=== PATIENT | female | born 1975 | race Asian ===

== ENCOUNTER 2022-02-09 10:35 | Outpatient (REF) | payer MEDICAID, SELFPAY ==
[2022-02-09 14:38] LABS: Bilirubin Negative (Negative); Blood Large (Negative); Clarity Cloudy (Clear); Glucose Negative (Negative); Ketones Negative (Negative); Leukocyte Esterase Small (Negative); Nitrite Negative (Negative); Specific Gravity >= 1.030 (1.005-1.025); Urobilinogen 0.2 EU/dL (Up TO 0.2); pH 5.5 (5-8)
[2022-02-09 14:47] LABS: Bacteria Moderate HPF (Negative); Epithelial Cells Rare HPF (Negative); RBC 20-50 HPF (0-2); WBC 20-50 HPF (0-5)
[2022-02-09 14:48] LABS: C & S Indicated? Yes; Casts Negative LPF (Negative); Crystals Many Amorphous HPF (Negative); Mucus Negative (Negative)
== END 2022-02-09 10:36 | disposition home or self-care (01) ==
LOC: LBN 10:35
DX: R39.89 Other symptoms and signs involving the genitourinary system (principal)
CPT/HCPCS: 81003; 81015; 87086

== ENCOUNTER → 2023-05-19 20:10 | Outpatient (CLI) | payer MEDICAID, SELFPAY ==
--- NOTE | 2023-05-19 20:00 | DI.RAD_ITS ---
Exam(s) XR CHEST 2V PA LATERAL EXAM: XR CHEST 2V PA LATERAL CLINICAL HISTORY: COUGH TECHNIQUE: 2D digital imaging was performed. COMPARISON: No exams were available for comparison FINDINGS: HEART: Normal size. Aorta: Not dilated. PULMONARY VASCULATURE: Normal. LUNGS: Clear. PLEURAL SPACE: No pleural effusion or pneumothorax. BONE:Unremarkable for age. Soft tissues: Anterior surgical clips. IMPRESSION: No acute abnormality. DATA REPOSITORY: RADIATION DOSE DELIVERED:
--- OUTSIDE RECORDS SUMMARY | 2023-05-19 20:15 | XMS_ITS | Patient Health Record ---
Author Name Unknown Organization [facility] Address [address], [place] [id number] Care Team Providers Care Callisthenics Instructor Name Role Phone Bianca Lopes Unavailable [phone] SaurabhSonya Unavailable [phone] ALLERGIES Allergen (clinical drug ingredient) Drug/Non Drug Allergy documented on EMR Reaction Allergy Type Onset Date Status Adhesive Unknown Allergy Active REASON FOR REFERRAL No Information MEDICATIONS Medication SIG (Take, Route, Frequency, Duration) Notes Start Date End Date Status Lexapro 20mg Active traZODone HCl 100 MG 1 tablet at bedtime Orally Once a day for 30 day(s) Active Escitalopram Oxalate 20 MG TAKE ONE AND ONE-HALF TABLETS BY MOUTH EVERY DAY for 90 Please have patient call to schedule appt before next refill. Needs annual exam. Active SOCIAL HISTORY Sex Assigned At : Social History Observation Description Sex Assigned At Unknown PROBLEMS Problem Type ICD Code Onset Dates Problem Status W/U Status Risk SNOMED Code Notes Problem Other specified urinary incontinence (N39.498) Active confirmed Urinary incontinence (362496798) Problem Encounter for gynecological examination (Z01.419) Active confirmed 245375162 Problem Vasomotor symptoms due to menopause (N95.1) Active confirmed Menopause (311878404) Problem Adenomyosis (N80.9) Active confirmed Endometriosis (316431509) VITAL SIGNS Blood pressure diastolic 70 mm Hg 08/02/2022 Height 5 ft 5 in in 08/02/2022 Blood pressure systolic 102 mm Hg 08/02/2022 Weight 174 lbs 08/02/2022 BMI 28.95 kg/m2 08/02/2022 Encounters Encounter Location Date Provider Diagnosis [facility] [address], [place] [id number] 06/07/2022 Sonya Wiley [facility] [address], [place] [phone] 06/11/2022 Sonya Wiley [facility] [address], [place] [id number] 06/18/2022 Sonya Wiley Vasomotor symptoms due to menopause N95.[address] [id number] 07/27/2022 Sonya Wiley [facility] [address], [place] [id number] 08/02/2022 Sonya Wiley Vasomotor symptoms due to menopause N95.[address] [id number] 10/25/2022 Sonya Wiley Vasomotor symptoms due to menopause N95.[address] [id number] 01/12/2023 Sonya Wiley Vasomotor symptoms due to menopause N95.1 ASSESSMENTS Encounter Date Diagnosis Assessment Notes Treatment Notes Treatment Clinical Notes 08/02/2022 Vasomotor symptoms due to menopause (ICD-10 - N95.1) 01/12/2023 Vasomotor symptoms due to menopause (ICD-10 - N95.1) 06/18/2022 Vasomotor symptoms due to menopause (ICD-10 - N95.1) Management options reviewed (not a candidate for estrogen due to breast CA). Pt elects to increase Lexapro to 30mg daily. RTC 6-8 wks for f/u visit to assess symptoms 10/25/2022 Vasomotor symptoms due to menopause (ICD-10 - N95.1) PLAN OF TREATMENT Pending Test Test Name Order Date U/A Test 06/30/2020 Insurance Providers Payer Name Payer Address Payer Phone Subscriber Number Group Number Insured Name Patient Relationship to Insured Coverage Start Date Coverage End Date [employer] - MEDICAID [address] [place] [address] [id number] Austin Squires Self - patient is the insured MEDICAL (GENERAL) HISTORY Medical History History ICD Code breast cancer gallbladder removal 2017 right shoulder dislocation anxiety carpal tunnel kidney stones x3 Concussion S06.0X9A Surgical History Surgery Date(Month/Year) gallbladder removal 2007 bilateral mastectomy 2020 Breast reconstruction 01/11/2022 Nipple reconstruction 07/23/2022 Bladder recontruction surgery for incont inence 09/24/2021
--- NOTE | 2023-05-19 20:40 | DI.VRAD_ITS ---
PROCEDURE INFORMATION: Exam: XR Chest Exam date and time: 05/19/2023 8:15 PM Age: 47 years old Clinical indication: Cough TECHNIQUE: Imaging protocol: Radiologic exam of the chest. Views: 2 views. COMPARISON: No relevant prior studies available. FINDINGS: Lungs: Lungs are adequately inflated and symmetric. No focal consolidation or evidence of pulmonary edema. Pleural spaces: No pleural effusion. No pneumothorax. Heart/Mediastinum: Cardiomediastinal contours within normal limits. Bones/joints: No acute osseous finding. IMPRESSION: No acute findings. Dictated and Authenticated by: Pérez Balbuena MD. Ordering:TOM Camargo MD
== END ==
PROVIDERS: Visit Provider Physician Assistant Medical
DX: R05.9 Cough, unspecified (principal)
CPT/HCPCS: 71046

== ENCOUNTER 2023-05-19 20:29 | Outpatient (REF) | payer MEDICAID, SELFPAY ==
[2023-05-19 20:56] LABS: Source Nasal/Nares
[2023-05-19 21:47] LABS: COVID-19 PCR Negative (Negative)
== END 2023-05-19 20:30 | disposition home or self-care (01) ==
LOC: LBN 20:29
PROVIDERS: Visit Provider Physician Assistant Medical
DX: R05.8 Other specified cough (principal); Z20.822 Contact with and (suspected) exposure to COVID-19
CPT/HCPCS: 87635

== ENCOUNTER 2023-12-10 17:26 | Emergency (ER) | payer BC, SELFPAY ==
[2023-12-10 17:35] VITALS: BP 128/79; PULSE 86; RESP 16; TEMP 35.6; O2SAT 98
--- OUTSIDE RECORDS SUMMARY | 2023-12-10 17:37 | XMS_ITS | Encounter Summary ---
Author Organization [facility] Address [address] [place] [address] Care Team Providers Care Food Processing Chemist Name Role Phone Pam Germain MD Unavailable [phone] Janay Duran CLOTH PRESSER Primary Care Provider Unava ilable Reason for Visit * Reason Onset Date Comments Appointment Related 12/03/2022 Encounter Details Date Type Department Care Team (Late st Contact Info) Description 12/03/2022 Telephone [facility] Surgical Oncology - [address] [phone] Maeve Morales, DO [address] [facility], [address] [place] [phone] Appointment Related Social History Tobacco Use Types Packs/Day Years Used Date Smoking Tobacco: Former Cigarettes 1 30 0 09/17/1990 - 09/17/2020 Smokeless Tobacco: Never Comments:Smoked on and off w hen smoked- started as a teen Alcohol Use Standard Drinks/Week Comments Not Currently 0 (1 standard drink = 0.6 oz pur e alcohol) PHQ-2 Answer Date Recorded PHQ-2 SUBTOTAL 0 06/19/2020 Interpersonal Safety Answer Date Record ed Physically Hurt Never 02/19/2020 Verbally Threaten Not on file 02/19/2020 Sex and Gender Information Value Date Recorded Sex Assigned at Not on file Gender Identity Female 02/19/2020 9:10 EDT Sexual Orientation Not on file documented as of this encounter Functional Status Functional Status Response Date of Assess ment Are you deaf or do you have serious difficulty h earing? No 12/24/2020 Are you blind or do you have serious difficulty seeing, even when wearing glasses? No 12/24/2020 Do you have serious difficul ty walking or climbing stairs? (5 years old or older) No 12/24/2020 Do you have difficulty dress ing or bathing? (5 years old or older) No 12/24/2020 Because of a physical, menta l, or emotional condition, do you have difficulty doing errands alone such as visiting a doctor's office or shopping? (15 years old or older) No 12/24/2020 Cognitive Status Response Date of Assessm ent Because of a physical, menta l, or emotional condition, do you have serious difficulty concentrating, remembering, or making decisions? (5 years old or older) No 12/24/2020 documented as of this encounter Miscellaneous Notes * Telephone Encounter - Yulissa Pedroza - 12/03/2022 1101 EDT Gave pt a call to offer her an earlier opening with Dr. Morales on: 12/03/2022 While on the phone with the patient she accepted an opening on 12/03/2022 @ 3:40pm - pt is aware Yulissa Pedroza 12/03/2022 11:02 documented in this encounter Plan of Treatment Upcoming Encounters Date Type Department Care Team (Late st Contact Info) Description 01/31/2024 13:40 EDT Office Visit [facility] Surgical Oncology - [address] [phone] Maeve Morales, [address] [facility], [address] [place] [phone] documented as of this encounter Visit Diagnoses Not on filedocumented in this encounter Care Teams Food Processing Chemist Relationship Specialty Start Date End Date Janay Duran, CLOTH PRESSER [address] [facility], [facility] [address] [place] [phone] PCP - General Family Medicine - Primary Care 07/22/22 Pam Germain MD [address] [facility], [facility] [address] [place] [phone] Medical Oncology 03/22/22 documented as of this encounter
--- OUTSIDE RECORDS SUMMARY | 2023-12-10 17:37 | XMS_ITS | Encounter Summary ---
Author Organization [facility] Address [address] [place] [address] Care Team Providers Care Air Conditioning Specialist Name Role Phone Pam Germain MD Unavailable [phone] Janay Duran APRN Primary Care Provider Unava ilable Reason for Visit * Reason Onset Date Comments Appointment Related 10/11/2023 Encounter Details Date Type Department Care Team (Late st Contact Info) Description 10/11/2023 Telephone [facility] Hematology & Oncology - [address] [phone] Pam Germain MD [address] [facility], [address] [place] [address] Appointment Related Social History Tobacco Use Types [...] a physical, menta l, or emotional condition, does this person have serious difficulty concentrating, remembering, or making decisions? Yes 10/07/2023 documented as of this encounter Miscellaneous Notes * Telephone Encounter - Mckinley Ku - 10/11/2023 1333 EDT Spoke with patient regarding rescheduling request. Patient had asked for 11/01 because she has off from work. Unfortunately it falls on a this year--informed her I can only schedule for Tuesday or Tuesday mornings. She asked about Fridays and I reiterated I can only schedule for Tuesday or Tuesday mornings. She asked if Dr. 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 Patientdecided to leave the appt as it was already scheduled. documented in this encounter Plan of Treatment Upcoming Encounters Date Type Department Care Team (Late st Contact Info) Description 01/31/2024 13:40 EDT Office Visit [facility] Surgical Oncology - [address] [phone] Maeve Morales, DO [address] [facility], [facility], [address] [place] [address] documented as of this encounter Visit Diagnoses Not on filedocumented in this encounter Care Teams Air Conditioning Specialist Relationship Specialty Start Date End Date Janay Duran APRN [address] [place] [phone] PCP - General Family Medicine - Primary Care 07/22/22 Pam Germain MD [address] [place] [phone] Medical Oncology 03/22/22 documented as of this encounter
--- OUTSIDE RECORDS SUMMARY | 2023-12-10 17:37 | XMS_ITS | Encounter Summary ---
Author Organization [facility] Address [address] [place] [address] Care Team Providers Care Calender Machine Operator Helper Name Role Phone Pam Germain MD Unavailable [phone] Janay Duran APRN Primary Care Provider Unava ilable Reason for Visit * Reason Comments Follow-up Encounter Details Date Type Department Care Team (Late st Contact Info) Description 03/15/2023 10:00 EDT Office Visit [facility] Hematology & Oncology - [address] [phone] Pam Germain MD [address] [facility], [address] [place] [address] Malignant 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, estrogen receptor negative (HCC-CMS) (Primary Dx); Triple negative malignant neoplasm of breast (HCC-CMS) Social History Tobacco Use Types Packs/Day Years [...] on file documented as of this encounter Last Filed Vital Signs Vital Sign Reading Time Taken Comments Blood Pressure 120/76 03/15/2023 0946 EDT Pulse 85 03/15/202346 EDT Temperature 36.3 ??C (97.3 ??F) 03/15/2023 0946 EDT Respiratory Rate 16 03/15/202346 EDT Oxygen Saturation 97% 03/15/2023945 EDT Inhaled Oxygen Concentration - - Weight 78.4 kg (172 lb 12.8 oz) 03/15/2023945 EDT Height - - Body Mass Index 27.97 10/14/2022 1620 EDT documented in this encounter Functional Status Functional Status Response [...] No 12/24/2020 documented as of this encounter Progress Notes * Pam Germain MD - 03/15/2023 1000 EDT Austin Squires is a 47 y.o.yo female presenting in clinic today for follow up of triple negative breast cancer. Oncology History ?? 1. Early stage [facility] Breast Cancer ??? Personnel Research Psychologist noticed a mass in her left breast in early June 2020 ??? Imaging and a biopsy on 07/09/20??of a 2.1 cm mass revealed a nuclear grade 3 ER negative [place] negative for HER2 negative ductal carcinoma.? Staging evaluation did reveal a prominent L IM lymph node ? ? Taxol/carboplatinum f/b AC, started July 22, 2020??& completed on 11/27/20 ??? Bilateral mastectomies??performed on 12/24/20 revealed 2.5 cm of a poorly differentiated ductal carcinoma. ??All margins were negative. ??0/3 nodes were positive.?Contralateral breast benign. PD-L1 testing appears to be negative. ??? Adjuvant capecitabine started late Jan,, completed 8 cycles. ?? Genetic testing: negative (9 gene panel performed through [facility] [employer] [facility] was performed) SUBJECTIVE: Austin returns for routine follow-up. She recently completed nipple tattoos and has healed well for this. She got over the summer. She is doing well. No acute concerns at today's visit. No new symptoms. Prior hip plan has completely resolved. Last menses in 2020 but had IUD in until 11/2021 Past medical, surgical, family and social history reviewed and updated. Lives in [place]. Works at [employer]. She will be getting this summer, in [place]. Objective: There were no vitals taken for this visit. General appearance: alert, no distress Head: Normocephalic, without obvious abnormality, atraumatic Neck: supple, symmetrical, trachea midline and no adenopathy Lymph nodes: Cervical, supraclavicular nodes normal. Lungs: clear to auscultation bilaterally Breast Exam: Patient's left and right breast and bilateral axilla were examined in both the seated and supine position. s/p bilateral mastectomies with reconstruction. No skin changes. No palpable masses. Lymph Node Exam: No palpable cervical lymphadenopathy. No supraclavicular lymphadenopathy. No palpable axillary lymphadenopathy. Heart: regular rate and rhythm, No significant murmur Neurologic: Grossly normal Mental Status: mood and affect appropriate, speech and thought process intact Extremities: extremities warm, atraumatic, no cyanosis or edema Skin: Skin color, temperature, turgor normal. No rashes or lesions LABORATORY: CBC/CMP from today were reviewed. Longstanding transaminitis with known fatty liver. Alk phos mildly elevated recently. ASSESSMENT: Triple negative breast cancer, diagnosed in June 2020. Patient underwent neoadjuvant treatment followed by bilateral mastectomies. She had residual tumor of 2.5 cm and therefore took adjuvant capecitabine. She is up-to-date with surveillance. PLAN: 1. Routine surveillance with Dr. Morales as scheduled 2. Recommend repeat CBC and CMP prior to next visit 3. No role for breast imaging, as s/p b/l mastectomies Follow-up in 6 months and then annually thereafter I spent a total of 40 minutes on the date of this encounter meeting with the patient and reviewing documentation/coordinating care as described in the above note. No procedures were performed at the time of the visit. Pam Germain MD 03/15/2023 10:47 documented in this encounter Plan of Treatment Upcoming Encounters Date Type Department Care Team (Late st Contact Info) Description 01/31/2024 13:40 EDT Office Visit [facility] Surgical Oncology - [address] [phone] Maeve Morales DO [address] [place] [phone] documented as of this encounter Visit Diagnoses Diagnosis Malignant 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, estrogen receptor negative (HCC-CMS)- Primary Triple negative malignant neoplasm of breast (HCC-CMS) documented in this encounter Care Teams Calender Machine Operator Helper Relationship Specialty Start Date End Date Janay Duran APRN [address] [place] [phone] PCP - General Family Medicine - Primary Care 07/22/22 Pam Germain MD [address] [place] [phone] Medical Oncology 03/22/22 documented as of this encounter
--- OUTSIDE RECORDS SUMMARY | 2023-12-10 17:37 | XMS_ITS | Encounter Summary ---
Author Organization [facility] Address [address] [place] [address] Care Team Providers Care Assistant Manager Quality Management Name Role Phone Pam Germain MD Unavailable [phone] Janay Duran PROCESS CONTROL TECH Primary Care Provider Unava ilable Reason for Visit * Reason Comments Follow-up 6 mn jennifer henao Encounter Details Date Type Department Care Team (Late st Contact Info) Description 12/03/2022 15:[address] [facility] Surgical Oncology - [address] [id number] Maeve Morales, DO [address] [facility], [facility] [address] [place] [phone] Malignant 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, estrogen receptor negative (HCC-CMS) (Primary Dx) Social History Tobacco Use Types Packs/Day Years Used Date Smoking Tobacco: Former Cigarettes 1 30 0 09/17/1990 - 09/17/2020 Smokeless Tobacco: Never Tobacco Cessation:Counseling Given: Not Answered Comments:Smoked on and off when smoked- started as a teen Alcohol Use [...] as of this encounter Progress Notes * Maeve Morales, DO - 12/03/2022 1540 EDT Subjective: Patient ID: Austin Squires is an 47 y.o. female. No chief complaint on file. HPI Austin is seen in 6-month follow-up for her left breast cancer. ??As you recall this is a patient that had a physical examination finding at her CT TECHNICIAN visit and was sent in for diagnostic imaging in June 2020. ??This showed a concerning lesion in the upper pole of the left breast and biopsy returned back a nuclear grade 3 invasive ductal adenocarcinoma. ??This was a triple negative breast cancer. ??Because of the size and the triple negative phenotype Austin was initiated on neoadjuvant chemotherapy. ??She completed that chemotherapeutic regimen in November 2020 and went on to undergo bilateral skin sparing mastectomies and a left sentinel lymph node biopsy in December 2020. ??This was done with an immediate tissue human intelligence reconstruction. ??Unfortunately her pathology did not show a significant response to the chemotherapy with her final tumor size measuring 2.5 cm with 0 of 2 lymph nodes positive. ??Because of the less than optimal response she was placed on 6 months of capecitabine. ?Unfortunately in May of 2021 her right tissue human intelligence unexpectedly ruptured and she had to go back to the OR to have it replaced. She has subsequently undergone implant reconstruction and is veryhappy with her cosmetic outcome. She had her nipple reconstruction which sounds like it was complicated by a tape allergy. Because of that the left side is less prominent than the right. She does notreally care about it though. She is excited because she got this summer. Patient Active Problem List Diagnosis ??? 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 Breast cancer in female (HCC-CMS) ??? Hepatic steatosis ??? Hypertension ??? History of anxiety Past Medical History: Diagnosis Date ??? Activity, other involving cardiorespiratory exercise Noted 07/19/2022: stretching exercises and weights ??? Anxiety Noted 07/19/2022: controlled w/ meds ??? Back pain Noted 07/19/2022: degenerative disc disease ??? Bladder incontinence ??? Cancer (HCC-CMS) (HCC) Noted 07/19/2022: breast ??? Diabetes mellitus, type 2 (HCC-CMS) Noted 07/19/2022: not currently on meds, last A1c 6.4, f/u appointment in 3 months ??? Exercise involving housework ??? Exercise involving walking Noted 07/19/2022: can climb 2 FOS w/ no SOB ??? Head trauma 06/19/20 fell on ice. No loss of consciosness ??? History of chemotherapy ??? History of general anesthesia Noted 07/19/2022: no complications ??? History of kidney stones Noted 07/19/2022: hx of, no issues now ??? TMJ syndrome ??? Urgency of urination stress inc. Past Surgical History: Procedure Laterality Date ??? BLADDER REPAIR 2021 ??? BREAST SURGERY expanders, and inplants ??? CHOLECYSTECTOMY ??? MASTECTOMY Bilateral ??? OTHER SURGICAL HISTORY 1998, 2011 epidural with childbirth Family History Problem Relation Age of Onset ??? Lung Cancer Mother Social Social History Tobacco Use ??? Smoking status: Former Packs/day: 1.00 Years: 30.00 Total pack years: 30.00 Types: Cigarettes Quit date: 09/17/2020 Years since quittin.2 ??? Smokeless tobacco: Never ??? Tobacco comments: Smoked on and off when smoked- started as a teen Vaping Use ??? Vaping Use: Former ??? Substances: Nicotine (3mg or none) ??? Devices: Disposable Substance Use Topics ??? Alcohol use: Not Currently ??? Drug use: Not Currently Types: Marijuana Current Outpatient Medications on File Prior to Visit Medication Sig Dispense Refill ??? escitalopram oxalate (LEXAPRO) 10 mg tablet Take 30 mg by mouth daily. ??? traZODone (DESYREL) 50 mg tablet Take 50 mg by mouth as needed. No current facility-administered medications on file prior to visit. Allergies Allergen Reactions ??? Ondansetron Other (See Comments) Dose to be limited to under 16mg daily while on Lexapro as EKG showed QTC as 0.4 ??? Oxycodone Other (See Comments) Made her hyper ??? Wound Dressings Sorbaview (pt states port-a-cath dressing with white border causes skin issues). Review of Systems Constitutional: Negative for chills, fever and weight loss. HENT: Negative for hearing loss. Eyes: Negative for blurred vision, double vision and photophobia. Respiratory: Negative for cough, shortness of breath and wheezing. Cardiovascular: Negative for chest pain and palpitations. Gastrointestinal: Negative for abdominal pain, heartburn, nausea and vomiting. Genitourinary: Negative for dysuria, frequency and urgency. Musculoskeletal: Positive for joint pain and myalgias. Neurological: Negative for sensory change, focal weakness and headaches. - See HPI Objective: There were no vitals taken for this visit. Physical Exam Constitutional: General: She is not in acute distress. Appearance: She is well-developed and well-nourished. HENT: Head: Normocephalic and atraumatic. Eyes: Extraocular Movements: EOM normal. Conjunctiva/sclera: Conjunctivae normal. Pupils: Pupils are equal, round, and reactive to light. Neck: Thyroid: No thyromegaly. Cardiovascular: Rate and Rhythm: Regular rhythm. Heart sounds: No murmur heard. Pulmonary: Effort: Pulmonary effort is normal. No respiratory distress. Breath sounds: Normal breath sounds. Musculoskeletal: Cervical back: Normal range of motion. Lymphadenopathy: Cervical: No cervical adenopathy. Neurological: Mental Status: She is alert and oriented to person, place, and time. Cranial Nerves: No cranial nerve deficit. Reconstructed breasts and bilateral axilla are examined in the seated and the supine position. There are no obvious masses palpated in either breast mound. Ultrasound of both breasts is undertaken and shows no worrisome findings today. There is no nipple inversion or discharge. There are no axillary masses. Assessment: Austin is seen in the office today in 6-month follow-up for her left breast cancer. On exam today she has no evidence of recurrent disease. She is following up with Dr. Bolivar about the possibility of nipple tattoos but she is not sure if she really wants to go through with that. She is trying to maintain healthy weight but had to be on some steroids for neck pain and that its been challenging tobalance. She did have a bone scan which was negative. Plan: (C50.212, Z17.1) Malignant 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, estrogen receptor negative ([facility]-CMS) (primary encounter diagnosis) Maeve Morales DO No orders of the defined types were placed in this encounter. documented in this encounter Plan of Treatment Upcoming Encounters Date Type Department Care Team (Late st Contact Info) Description 01/31/2024 13:[address] [facility] Surgical Oncology - [address] [phone] Maeve Morales DO [address] [facility], [address] [place] [phone] documented as of this encounter Procedures Procedure Name Priority Date/Time Associated Diagnosis Comments ORDERS - SCANNED 12/09/2022 17:54 EDT documented in this encounter Results * ORDERS - SCANNED (12/09/2022 17:54 EDT) 12/09/2022 17:5 4 EDT Scan 2 Clinical Therapist ADMISSION ORDERABLE S documented in this encounter Visit Diagnoses Diagnosis Malignant 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, estrogen receptor negative (HCC-CMS)- Primary documented in this encounter Discontinued Medications Medication Sig Discontinue Reason Start Date End Da te escitalopram oxalate (LEXAPRO) 10 mg tablet Take 30 mg by mouth daily. Dose adjustment 12/03/2022 traZODone (DESYREL) 50 mg tablet Take 50 mg by mouth as needed. Dose adjustment 12/03/2022 documented as of this encounter Historical Medications * This list may reflect changes made after this encounter. Medication Sig Dispensed Refills Start Date End Date meloxicam (MOBIC) 15 mg tablet Take 1 Tablet by mouth daily. 10/28/2022 traZODone (DESYREL) 100 mg tablet as needed. 10/26/2022 escitalopram oxalate (LEXAPRO) 20 mg tablet TAKE 1 & 1/2 TABLET BY MOUTH EVERY DAY FOR 90 DAYS 10/25/2022 added in this encounter Care Teams Assistant Manager Quality Management Relationship Specialty Start Date End Date Janay Duran APRN [address] [phone] PCP - General Family Medicine - Primary Care 07/22/22 Pam Germain MD [address] [phone] Medical Oncology 03/22/22 documented as of this encounter
--- OUTSIDE RECORDS SUMMARY | 2023-12-10 17:37 | XMS_ITS | Patient Health Record ---
Author Organization [facility] Address [address] [place], [place] [id number] Care Team Providers Care Line Erector Name Role Phone Bianca Lopes Unavailable [phone] SaurabhSonya Unavailable [phone] Allergies Allergen (clinical drug ingredient) Drug/Non Drug Allergy documented on EMR Reaction Allergy Type Onset Date Status Adhesive Unknown Allergy Active Reason For Referral No Information Medications Medication SIG (Take, Route, Frequency, Duration) Notes Start Date End Date Status Escitalopram Oxalate 20 MG TAKE ONE AND ONE-HALF TABLETS BY MOUTH EVERY DAY NEEDS APPOINTMENT for 90 Not-Taking traZODone HCl 100 MG 1 tablet at bedtime Orally Once a day for 30 day(s) PRN (tries not to take) Active Lexapro 30mg Active Lexapro 20 MG 1 tablet Orally Once a day for 30 days 08/14/2023 Active Ozempic 1mg, weekly injection Active Problems Problem Type SNOMED Code ICD Code Onset Dates Problem Status W/U Status Risk Notes Problem Urinary incontinence (152678129) Other specified urinary incontinence (N39.498) Active confirmed Problem 757416592 Encounter for gynecological examination (Z01.419) Active confirmed Problem Menopause (237914949) Vasomotor symptoms due to menopause (N95.1) Active confirmed Problem Adenomyosis of uterus (disorder) (796015769) Adenomyosis (N80.9) Active confirmed Vital Signs Blood pressure diastolic 78 mm Hg 08/12/2023 Height 65 in 08/12/2023 Blood pressure systolic 112 mm Hg 08/12/2023 Weight 163 lbs 08/12/2023 BMI 27.12 kg/m2 08/12/2023 Encounters Encounter Location Date Provider Diagnosis [facility] [address], [place] [phone] 08/12/2023 Sonya Saurabh Abnormal Papanicolao u smear of cervix with positive human papilloma virus (HPV) test R87.618 [facility] [address], [place] [phone] 01/12/2023 Sonya Wiley Vasomotor symptoms d ue to menopause N95.[address] [phone] 06/30/2023 Sonya Wiley Assessments Encounter Date Diagnosis (ICD Code) Assessment Notes Treatment Notes Treatment Clinical Notes 01/12/2023 Vasomotor symptoms due to menopause (ICD-10 - N95.1) 08/12/2023 Abnormal Papanicolaou smear of cervix with positive human papilloma virus (HPV) test (ICD-10 - R87.618) Discussed [facility] recommended f/u for NIL +HPV pap is repeat pap in 12 months Pt verbalizes understanding and agrees with plan Requests [facility] today[facility] Plan Of Treatment Pending Test Test Name Order Date U/A Test 06/30/2020 Insurance Providers Payer Name Payer Address Payer Phone Subscriber Number Group Number Insured Name Patient Relationship to Insured Coverage Start Date Coverage End Date [place] [address] [place] [address] [id number] Austin Veras Self - patient is the insured Medical (General) History Medical History History ICD Code breast cancer gallbladder removal 2017 right shoulder dislocation anxiety carpal tunnel kidney stones x3 Concussion S06.0X9A Surgical History Surgery Date(Month/Year) gallbladder removal 2007 bilateral mastectomy 2020 Breast reconstruction 01/11/2022 Nipple reconstruction 07/23/2022 Bladder recontruction surgery for incont inence 09/24/2021
--- OUTSIDE RECORDS SUMMARY | 2023-12-10 17:37 | XMS_ITS ---
Author Organization [facility] Address [address] [place] [address] Care Team Providers Care Head Coach Name Role Phone Pam Germain MD Unavailable [phone] Janay Duran CENTRAL LAB TECHNICIAN Primary Care Provider Unava ilable Active Problems Patient Care Coordination No te Formatting of this note migh t be different from the original. Verified ACO Medicaid trans#[id number] Bhavani Garcia 06/27/2020 14:08 2021-Verified ACO Attributed [place] Medicaid TCN:[id number] Anastacio Bradfordalannah 05/20/2021 9:55 Problem Noted Date Diagnosed Date Hepatic steatosis 03/26/2021 Hypertension 03/26/2021 History of anxiety 03/26/2021 Breast cancer in female (HCC-[facility]) 12/24/2020 Malignant neoplasm of upper- inner quadrant of breast in female, estrogen receptor negative (HCC-[facility]) 07/15/2020 Cancer Staging:Clinical:Stage IIB(cT2, cN0, cM0, G3, ER-, HI-, HER2-) - Signed by Maeve Morales DO on 07/15/2020 Current Oncology Plans No current plan information found. Past Plans ONCOLOGY TREATMENT Plan Name Start Date Discontinue Date Treatment Medications Discontinue Reason Plan Provider Cycles PACLITAXEL Q3W + CARBOPLATIN (AUC 6) > AC (DOSE DENSE) 04/06/2021 CARBOplatin (PARAPLATIN) chemo infusion (by AUC)cyclophosphamide (CYTOXAN) chemo infusiondexAMETHasone (DECADRON) IVPB (for IV doses > 10mg)diphenhydrAMINE (BENADRYL) IVPBDOXOrubicin (ADRIAMYCIN)fosaprepita nt (EMEND) IVPB 150 mgPACLItaxel (TAXOL) chemo infusionpegfilgrastim (NEULASTA ONPRO) Therapy Complete Queenie Conde MD 8 of 8 cycles started Radiation Treatments * No radiation treatments are documented for this patient in [facility]. Treatments may have been administered in another system. Lifetime Dose Tracking * Chemical Lifetime Dose Automatic Entry Manual Entr y doxorubicin 237.31 mg/m2 (475.2 mg) 237.31 mg/m2 (475 .2 mg) 0 mg/m2 (0 mg) Dose Area Product 1,248 mGy-cm2 1,248 mGy-cm2 0 mGy-cm 2 Resolved Problems Problem Noted Date Diagnosed Date Resolved Date Sepsis ([facility]) 11/21/2020 11/23/2020 Fever and chills 11/21/2020 11/23/2020
--- OUTSIDE RECORDS SUMMARY | 2023-12-10 17:37 | XMS_ITS ---
Author Organization [facility] Address [address] [place], [place] [phone] Care Team Providers Care Mobile Lounge Driver Name Role Phone Bianca Lopes Unavailable [phone] Sonya Wiley Unavailable [phone] REASON FOR VISIT refill request Medications Medication SIG (Take, Route, Frequency, Duration) Notes Start Date End Date Status Lexapro 20 MG 1.5 tablet Orally On ce a day for 90 days Please have pt call the office to make an appointment before next refill is due 06/18/2022 Active Encounters Encounter Location Date Provider Diagnosis [address] [phone] 01/12/2023 Sonya Wiley Vasomotor symptoms due to menopause N95.1 Assessments Encounter Date Diagnosis (ICD Code) Assessment Notes Treatment Notes Treatment Clinical Notes 01/12/2023 Vasomotor symptoms due to menopause (ICD-10 - N95.1) Plan Of Treatment Medication Medication Name Sig Start Date Stop Date Notes Lexapro 20 MG 1.5 tablet Orally On ce a day for 90 days 06/18/2022 Please have pt call the office to make an appointment before next refill is due Progress Notes * Helen SQUIRESOB:1975 (47 yo F)Acc No.[id number]:01/12/2023 Patient:?Shaw Austin :1975???Age:47 Y???Sex:Female Address:[address] [place] [address], [phone] * Refills? Refill Lexapro Tablet, 20 MG, Orally, 135 Tablet, 1.5 tablet, Once a day, 90 days, Refills=0 * true * Date:? Generated for Nash coburn/Pacheco/Tyler on:?12/10/2023 05:36 PM EDT
--- OUTSIDE RECORDS SUMMARY | 2023-12-10 17:37 | XMS_ITS | Encounter Summary ---
Author Organization [facility] Address [address] [place] [address] Care Team Providers Care Meat Smoker Name Role Phone Pam Germain MD Unavailable Janay Duran APRN Primary Care Provider Robin vines Encounter Details Date Type Department Care Team (Late st Contact Info) Description 12/03/2022 16:15 EDT Ancillary Procedure [facility] Surgical Oncology - Main [place] [address] [place], [place] [phone] Social History Tobacco Use Types Packs/Day Years [...] No 12/24/2020 documented as of this encounter Plan of Treatment Upcoming Encounters Date Type Department Care Team (Late st Contact Info) Description 01/31/2024 13:40 EDT Office Visit [facility] Surgical Oncology - [place] [phone] Maeve Morales DO [address] [place] [phone] documented as of this encounter Procedures Procedure Name Priority Date/Time Associated Diagnosis Comments [facility] BREAST BRE[facility] ONLY Routine 12/03/2022 16:56 EDT documented in this encounter Results * [facility]3] ONLY (12/03/2022 16:56 EDT) Narrative [facility] POINT OF CARE - 12/03/2022 16:56 EDT This is a non-reportable exam. Maeve Morales DO [facility] US POC ORDERABL ES [facility] POINT OF CARE documented in this encounter Visit Diagnoses Not on filedocumented in this encounter Care Teams Meat Smoker Relationship Specialty Start Date End Date Janay Duran APRN [address] [place] [phone] PCP - General Family Medicine - Primary Care 07/22/22 Pam Germain MD [address] [facility], [address] [place] [phone] Medical Oncology 03/22/22 documented as of this encounter
--- OUTSIDE RECORDS SUMMARY | 2023-12-10 17:37 | XMS_ITS | Encounter Summary ---
Author Organization [facility] Address [address] [place] [address] Care Team Providers Care Sports Athletic Trainer Name Role Phone Pam Germain MD Unavailable [phone] Janay Duran APRN Primary Care Provider Robin vines Encounter Details Date Type Department Care Team (Late st Contact Info) Description 06/13/2023 Lab Requisition [facility] Pathology & Laboratory Medicine - [facility] [address] [place] [address] Janay Duran APRN Unspecified osteoarthritis, unspecified site Social History Tobacco Use Types Packs/Day Years [...] Info) Description 01/31/2024 13:40 EDT Office Visit [facility] Surgical Oncology - [facility] [address] [place] [address] Maeve Morales, 111 [facility], [address] [place] [address] documented as of this encounter Procedures Procedure Name Priority Date/Time Associated Diagnosis Comments RHEUMATOID FACTOR Today 06/13/2023 11: 05 EST Unspecified osteoarthritis, unspecified site documented in this encounter Results * (ABNORMAL) RHEUMATOID FACTOR (06/13/2023 11:05 EST) Rheumatoid Factor 13.0(H) <12.0 IU/mL 06/13/2023 21:01 EST [facility] Blood VENOUS BLOOD / Unknown 06/13/2023 11:05 EST 06/13/2023 20:40 EST Janay Duran APRN CHEMISTRY & BLOOD GA S ORDERABLES [facility] [address] [place] [address] documented in this encounter Visit Diagnoses Diagnosis Unspecified osteoarthritis, unspecified site documented in this encounter Care Teams Sports Athletic Trainer Relationship Specialty Start Date End Date Janay Duran APRN [address] [facility], [facility], [facility] [address] [place] [address] PCP - General Family Medicine - Primary Care 07/22/22 Pam Germain MD 111 [facility], [facility] [address] [place] [phone] Medical Oncology 03/22/22 documented as of this encounter
--- OUTSIDE RECORDS SUMMARY | 2023-12-10 17:37 | XMS_ITS | Encounter Summary ---
Author Organization [facility] Address [address] [place] [address] Care Team Providers Care Tool Lathe Operator Name Role Phone Pam Germain MD Unavailable [phone] Janay Duran APRN Primary Care Provider Unava ilable Reason for Visit * Reason Comments Post-OP Follow Up Bilateral nipple tat too Encounter Details Date Type Department Care Team (Latest Contact Info) Description 03/31/2023 13:45 EST Post-op Visit [facility] Plastic, Reconstructive & Cosmetic Surgery - [address], [address] [place] [address] Oksana Wilkins PA-C [address] [place] [address] [place] [phone] S/P breast reconstruction (Primary Dx) Social History Tobacco Use Types [...] as of this encounter Progress Notes * Oksana Wilkins PA-C - 03/31/2023 5851 EST SUBJECTIVE: Austin presents to the plastic surgery clinic in follow up from 3D nipple tattoo today. She is doing well. No acute health concerns are reported today. OBJECTIVE: On examination, she is in no distress. Her bilateral breast reconstruction is implant based. Breasts: breasts appear normal, no suspicious changes. Skin devoid of rash and infection. NAC tattoo with good pigment uptake and 3 D appearance. No scabbing. PLAN: No touch up required. Photos obtained for Mirror application. We discussed implant MRI in 5 years from placement. Any skin changes or change in breast reconstruction sites are asked to be reported PRN. Oksana Wilkins PA-C 04/01/2023 11:51 documented in this encounter Plan of Treatment Upcoming Encounters Date Type Department Care Team (Late st Contact Info) Description 01/31/2024 13:40 EDT Office Visit [facility] Surgical Oncology - Main [address] [phone] Maeve Morales DO [address] [phone] documented as of this encounter Visit Diagnoses Diagnosis S/P breast reconstruction- Primary Breast replaced by other means documented in this encounter Historical Medications * This list may reflect changes made after this encounter. Medication Sig Dispensed Refills Start Date End Date semaglutide (OZEMPIC) 0.25 mg or 0.5 mg (2 mg/3 mL) pen injector Inject 0.5 mg into the skin once a week. 0.25 mg x4 week and then increase to 0.5 mg added in this encounter Care Teams Tool Lathe Operator Relationship Specialty Start Date End Date Janay Duran APRN [address] [phone] PCP - General Family Medicine - Primary Care 07/22/22 Pam Germain MD [address] [phone] Medical Oncology 03/22/22 documented as of this encounter
--- OUTSIDE RECORDS SUMMARY | 2023-12-10 17:37 | XMS_ITS | Encounter Summary ---
Author Organization [facility] Address [address] [place] [address] Care Team Providers Care Paper Mill Superintendent Name Role Phone Pam Germain MD Unavailable [phone] Janay Duran SUPERVISOR AUDIT CLERKS Primary Care Provider Unava ilable Reason for Visit * Reason Onset Date Comments Appointment Related 07/27/2023 Encounter Details Date Type Department Care Team (Late st Contact Info) Description 07/27/2023 Telephone [facility] Surgical Oncology - [address] [id number] Maeve Morales, DO [address] [facility], [address] [place] [phone] Appointment Related Social History Tobacco Use Types [...] * Telephone Encounter - Yulissa Pedroza - 07/27/2023 1034 EDT Gave pt a call per her scroll kit message looking to reschedule her appt w/ Dr. Morales on 08/19/2023 While on the phone we rescheduled this appt to: 01/31/2024 @ 1:40pm (added to the [facility]) - pt is aware Yulissa Pedroza 07/27/2023 10:35 documented in this encounter Plan of Treatment Upcoming Encounters Date Type Department Care Team (Late st Contact Info) Description 01/31/2024 13:40 EDT Office Visit [facility] Surgical Oncology - [address] [id number] Maeve Morales, [address] [place] [address], [address] [place] [phone] documented as of this encounter Visit Diagnoses Not on filedocumented in this encounter Care Teams Paper Mill Superintendent Relationship Specialty Start Date End Date Janay Duran, SUPERVISOR AUDIT CLERKS 111 [facility], [facility], [facility] [address] [place] [address] PCP - General Family Medicine - Primary Care 07/22/22 Pam Germain MD [address] [facility], [facility] 2 [place] [phone] Medical Oncology 03/22/22 documented as of this encounter
--- OUTSIDE RECORDS SUMMARY | 2023-12-10 17:37 | XMS_ITS | Encounter Summary ---
Author Organization [facility] Address [address] [place] [address] Care Team Providers Care Nematologist Name Role Phone Pam Germain MD Unavailable [phone] Janay Duran GAS MAIN FITTER HELPER Primary Care Provider Unava ilable Reason for Visit * Radiology Services (Routine/Next Available) - Authorization Not Required Specialty Diagnoses / Procedures Referred By Contac t Referred To Contact Nuclear Medicine Diagnoses Malignant 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, estrogen receptor negative (HCC-CMS) Pain of right hip Procedures NM BONE WHOLE BODY Liat Honeycutt, DONNAC 111 [facility] [address] [place] [address] [facility] Referral ID Status Reason Start Date Expiration Date Visits Requested Visits Authorized [id number] Authorization Not Required 10/17/2022 1 1 Encounter Details Date Type Department Care Team (Latest Contact Info) Description 11/11/2022 8:46 EDT - 11/11/2022 23:59 EDT Hospital Encounter edical Center Radiology Nuclear Medicine and PET - [address] [address] Discharge Disposition: Home or Self Care Social History Tobacco Use Types Packs/Day Years [...] No 12/24/2020 documented as of this encounter Medications at Time of Discharge Medication Sig Dispensed Refills Start Date End Date escitalopram oxalate (LEXAPRO) 20 mg tablet TAKE 1 & 1/2 TABLET BY MOUTH EVERY DAY FOR 90 DAYS 10/25/2022 meloxicam (MOBIC) 15 mg tablet Take 1 Tablet by mouth daily. 10/28/2022 traZODone (DESYREL) 100 mg tablet as needed. 10/26/2022 escitalopram oxalate (LEXAPRO) 10 mg tablet Take 30 mg by mouth daily. 12/03/2022 traZODone (DESYREL) 50 mg tablet Take 50 mg by mouth as needed. 12/03/2022 documented as of this encounter Discharge Disposition Disposition Code Departure Means Destination Home or Self Care documented in this encounter Plan of Treatment Upcoming Encounters Date Type Department Care Team (Late st Contact Info) Description 01/31/2024 13:40 EDT Office Visit [facility] Surgical Oncology - [address] [id number] Maeve Morales, DO 111 [facility], [address] [place] [phone] documented as of this encounter Procedures Procedure Name Priority Date/Time Associated Diagnosis Comments NM BONE WHOLE BODY Routine 11/11/2022 12 :21 EDT Malignant 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, estrogen receptor negative (HCC-CMS) Pain of right hip documented in this encounter Results * NM BONE WHOLE BODY (11/11/2022 12:21 EDT) Anatomical Region Laterality Modality Nuclear Medicine 11/11/2022 12:4 0 EDT Impressions 11/11/2022 12:40 EDT 1. ??No scintigraphic evidence of osseous metastatic disease. 2. ??Increased radiotracer uptake involving the left maxilla, likely sequela of sinus mucosal disease, correlate accordingly. [id number] Narrative 11/11/2022 12:40 EDT NM BONE WHOLE BODY ??11/11/2022 12:00 PM Signs and Symptoms: ??persistent and worsening L hip pain, h/o node positive breast CA, eval for mets; persistent and worsening L hip pain, h/o node positive breast CA, eval for mets;C50.212:Malignant 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, estrogen receptor negative (HCC-CMS);Z17.1:Malignant neoplasm of upper- inner quadrant of left breast in female, estrogen receptor negative (HCC- CMS);M25.551:Pain Comparison: CT chest/abdomen/pelvis from 07/18/2020. CT cervical spine from 06/19/2020. Technique: Approximately two hours after the IV injection of 18.9 mCi Tc-99m MDP, anterior and posterior whole body bone images were obtained. Findings: No concerning abnormal foci of increased radiotracer uptake are identified to suggest osseous metastatic disease. Specifically, there is no abnormal radiotracer uptake in the left hip. Compared to prior bone scan from 07/18/2020, there is interval near complete resolution of radiotracer uptake involving the anterolateral seventh left rib, likely representing healing rib fracture. There is new increased radiotracer uptake in the region of the left maxilla, likely cysts corresponding to left maxillary sinus mucosal disease. There is redemonstrated radiotracer uptake in the cervical and lower lumbar spine related to degenerative changes. Degenerative radiotracer uptake is also noted involving the acromioclavicular joints, both elbows, both knees, and both ankles. The kidneys are normal in position and demonstrate symmetric excretion. There is a normal clearance of radiotracer from the soft tissues. Procedure Note Jennifer Mondragon MD - 11/11/2022 NM BONE WHOLE BODY 11/11/2022 12:00 PM Signs and Symptoms: persistent and worsening L hip pain, h/o nodepositive breast CA, eval for mets; persistent and worsening L hip pain,h/o node positive breast CA, eval for mets;C50.212:Malignant neoplasm ofupper-inner quadrant of left breast in female, estrogen receptor negative(HCC-CMS);Z17.1:Malignant neoplasm of upper-inner quadrant of left breastin female, estrogen receptor negative (HCC-CMS);M25.551:Pain Comparison: CT chest/abdomen/pelvis from 07/18/2020. CT cervical spine from06/19/2020. Technique: Approximately two hours after the IV injection of 18.9 mCi Tc-99m MDP,anterior and posterior whole body bone images were obtained. Findings: No concerning abnormal foci of increased radiotracer uptake are identifiedto suggest osseous metastatic disease. Specifically, there is no abnormalradiotracer uptake in the left hip. Compared to prior bone scan from 07/18/2020, there is interval near completeresolution of radiotracer uptake involving the anterolateral seventh leftrib, likely representing healing rib fracture. There is new increased radiotracer uptake in the region of the leftmaxilla, likely cysts corresponding to left maxillary sinus mucosaldisease. There is redemonstrated radiotracer uptake in the cervical and lowerlumbar spine related to degenerative changes. Degenerative radiotraceruptake is also noted involving the acromioclavicular joints, both elbows,both knees, and both ankles. The kidneys are normal in position and demonstrate symmetric excretion.There is a normal clearance of radiotracer from the soft tissues. IMPRESSION 1. No scintigraphic evidence of osseous metastatic disease. 2. Increased radiotracer uptake involving the left maxilla, likelysequela of sinus mucosal disease, correlate accordingly. [id number] Liat WEBB NM ORDERABLES documented in this encounter Visit Diagnoses Not on filedocumented in this encounter Care Teams Nematologist Relationship Specialty Start Date End Date Janay Duran, GAS MAIN FITTER HELPER [address] [phone] PCP - General Family Medicine - Primary Care 07/22/22 Pam Germain MD [address] [phone] Medical Oncology 03/22/22 documented as of this encounter
--- OUTSIDE RECORDS SUMMARY | 2023-12-10 17:37 | XMS_ITS ---
Author Organization [facility] Address [address] [place], [place] [id number] Care Team Providers Care Protective Clothing Issuer Name Role Phone Bianca Lopes Unavailable [phone] Saurabh Sonya Unavailable [phone] Allergies Allergen (clinical drug ingredient) Drug/Non Drug Allergy documented on EMR Reaction Allergy Type Onset Date Status Adhesive Unknown Allergy Active REASON FOR VISIT Pt. presents for Med check. Last pap 06/13/23 WNL pos HPV w/PCP. Requesting refill of lexapro., OSMA Medications Medication SIG (Take, Route, Frequency, Duration) [...] 08/14/2023 Active Ozempic 1mg, weekly injection Active Vital Signs Height 65 in 08/12/2023 Weight 163 lbs 08/12/2023 BMI 27.12 kg/m2 08/12/2023 Blood pressure systolic 112 mm Hg 08/12/19 24 Blood pressure diastolic 78 mm Hg 024 Encounters Encounter Location Date Provider Diagnosis [facility] [address] [place], [place] [id number] 08/12/2023 Sonya Wiley Abnormal Papanicolao u smear of cervix with positive human papilloma virus (HPV) test R87.618 Assessments Encounter Date Diagnosis (ICD Code) Assessment Notes Treatment Notes Treatment Clinical Notes 08/12/2023 Abnormal Papanicolaou smear of cervix with positive human papilloma virus (HPV) test (ICD-10 - R87.618) Discussed [facility] recommended f/u for NIL +HPV pap is repeat pap in 12 months Pt verbalizes understanding and agrees with plan Requests Lexapro rx renewal today- sent to [facility] Plan Of Treatment Medication Medication Name Sig Start Date Stop Date Notes Lexapro 20 MG 1 tablet Orally Once a day for 30 days 08/13 Treatment Notes Assessment Notes Abnormal Papanicolaou smear of cervix with positive human papilloma virus (HPV) test Discussed [facility] recommended f/u for NIL +HPV pap is repeat pap in 12 months Pt verbalizes understanding and agrees with plan Requests Lexapro rx renewal today- sent to [facility] Next Appt Details Follow Up: May 2024, Reason: AE+ 1 yr repeat PAP Progress Notes * ASCENCIONClinDOB:1975 (48 yo F)Acc No.[id number]:08/12/2023 Progress Notes Patient:?JULIANNEDARIUSClin Provider:?Sonya Wiley NP :1975???Age:47 Y???Sex:Female D ate:08/12/2023 Address:[address] [place] [address], [place], [phone] Subjective: * Chief Complaints: * ???1. Pt. presents for Med c nickie. Last pap 06/13/23 WNL pos HPV w/PCP. Requesting refill of lexapro.. 2. OSMA. * HPI: ???OBGYN:? Austin presents to discuss recent abnoral pap results (done with PCP at [facility]) Pap NIL +HPV on 06/13/23 Prior pap 2018: NIL/Neg HPV (done in [place]) Pt reports no hx or abnormal paps Has not received HPV vaccine No tobacco use? Hx of breast cancer s/p chemotherapy and bilateral mastectomy in 2020 On Lexapro for non-hormonal management of moderate-severe vasomotor symptoms, very happy with use, vasomotor sx well controlled on lexapro. * Medical History:?Breast canc er, Gallbladder removal 2018, Right shoulder dislocation, Anxiety, Carpal tunnel, Kidney stones x3, Concussion. * Line Up Examiner History:?Periods :?none w/ IUD - hasn't had one since removal.?Date of Last Period:?06/10/20.?Sexual activity:?currently sexually active.? control:?VAS.?Sexually Transmitted Diseases?none.?Last pap smear date:?06/13/23 WNL pos HPV at PCP.?Abnormal pap smear hx:?1 unknown results around , 06/13/23 WNL pos HPV.?Last mammogram date:?july 2020.?Menarche:?Age of onset of maternal menarche:?13.? * OB History:?Total pregnancie s?6.?Total living children?3.?Miscarriage(s)?0.?(s)?, April 1993, October 1993, April 2010.? # 1:? ETOP.? # 2:?10/1993 ETOP.? # 3?11/11/98 - M Liv 6lbs 9 ounces 5 weeks early in [place].? # 4:?06/09/00 F Chichi 9lbs 8ounces in [place].? # 5:?04/24 ETOP.? # 6?05/26/11 F Lan 6 lbs 13 ounces in [place].?Stillbirth(s)?0.? * Medications:?Taking Ozempic , Notes to Pharmacist: 1mg, weekly injection, Taking traZODone HCl 100 MG Tablet 1 tablet at bedtime Orally Once a day , Notes to Pharmacist: PRN (tries not to take), Taking Lexapro , Notes to Pharmacist: 30mg, Not-Taking Escitalopram Oxalate 20 MG Tablet TAKE ONE AND ONE-HALF TABLETS BY MOUTH EVERY DAY NEEDS APPOINTMENT , Medication List reviewed and reconciled with the patient * Allergies:?Adhesive. Objective: * Vitals:?Ht: 65 in, Wt:163lbs , BMI:27.12Index, BP:112/78mm Hg, Ht-cm: 165.1, Wt- k.94. Assessment: * Assessment: 1.?Abnormal Papanicolaou sme ar of cervix with positive human papilloma virus (HPV) test - R87.618 (Primary)??? Plan: * Treatment: * Follow Up:?May 2024 (Reason: AE+ 1 yr repeat PAP) * * Electronic signature of César Wiley APRN on 12/10/2023 at 05:36 PM EDT Sign off status: Pending * Provider:?Sonya Wiley NP Date:? 024 Generated for Nash coburn/Pacheco/Elizabethitting on:?12/10/2023 05:36 PM EDT
--- OUTSIDE RECORDS SUMMARY | 2023-12-10 17:37 | XMS_ITS | Continuity of Care Document ---
Author Organization [facility] Address [address] [place] [address] Phone Care Team Providers Care Advertising Consultant Name Role Phone Janay Rachel APRN Unavailable Unavailable Allergies, Adverse Reactions, Alerts Substance Reaction Status Criticality adhesive Active No Information Medications Medication Instructions Dosage Effective Dates (start - stop) Status Comments Ozempic 1 mg/dose (4 mg/3 mL) subcutaneous pen injector inject (1MG) by subcutaneous route every week on the same day of each week 1 MG - Active Lexapro 20 mg tablet take 1.5 tablet by oral route every day - Active TRAZODONE 100 MG TABLET TAKE 1 TABLET BY MOUTH EVERY DAY AFTER MEALS 100 MG - Active Macrobid 100 mg capsule Take one capsule after intercourse for UTI prevention - Active VITAMIN D3 (unknown strength) take 1 by Oral route every day Not Available - Active MAGNESIUM (unknown strength) take 2 by Oral route once Not Available - Active Procedures Procedure Date Routine Venipuncture OFFICE/OUTPATIENT VISIT, EST GLYCOSYLATED HEMOGLOBIN TEST Comprehen Metabolic Panel Albumin; Urin Microalbumin Jurgen Routine Venipuncture Obtaining screen pap smear GLYCOSYLATED HEMOGLOBIN TEST Comprehen Metabolic Panel Immuniz Admin; 1/combo Vacc/to 23 FLU VAC NO PRSV 4 AROLDO Pediatric 023 Collecton Capillary Blood Spec GLYCOSYLATED HEMOGLOBIN TEST OFFICE/OUTPATIENT VISIT, EST OFFICE/OUTPATIENT VISIT, EST Offic/outpt E&m Estab Low-mod 3 Patient Intake Completed DSI-Prn-Ikpm <1 Year Palliative Treatment Treatment Plan Completed EDR Documentation Approval Routine Venipuncture Offic/outpt E&m Estab Low-mod 2 GLYCOSYLATED HEMOGLOBIN TEST OFFICE/OUTPATIENT VISIT, EST Telemed OFFICE/OUTPATIENT VISIT, EST 992 13 GLYCOSYLATED HEMOGLOBIN TEST OFFICE/OUTPATIENT VISIT, EST Routine Venipuncture Lipid Panel Albumin; Urin Microalbumin Jurgen Offic/outpt E&m Estab Low-mod 2 URINALYSIS, AUTO, W/O SCOPE Cult Bacterial Urin; Juwan Gordon Duplicate Encounter Routine Venipuncture Comprehen Metabolic Panel OFFICE/OUTPATIENT VISIT, EST Offic/outpt E&m Estab Low-mod 2 Cult Bacterial Urin; Juwan Gordon Psycotherapy, 45 Minutes Psycotherapy, 45 Minutes Limited Oral Evaluation-Problem Focused Urgent Care Intraoral Periapical-First Film 022 Patient Intake Completed XVO-Kbz-Jlkr <1 Year OFFICE/OUTPATIENT VISIT, EST Collecton Capillary Blood Spec GLYCOSYLATED HEMOGLOBIN TEST Patient Intake Completed KRX-Yuu-Xzqj <1 Year New Adult Hygiene Visit Prophylaxis Adult Treatment Plan In Progress Patient Intake Completed MUV-Vyk-Kjie <1 Year Post Operative Check Urgent Care EDR Documentation Approval Patient Intake Completed NUM-Yqi-Wfet <1 Year Pettit Delivery Treatment Plan Completed Collecton Capillary Blood Spec GLYCOSYLATED HEMOGLOBIN TEST Offic/outpt E&m Estab Low-mod Patient Intake Completed XHB-Bxn-Tehg <1 Year Pettit Delivery Treatment Plan In Progress Re-Take Impression For A Pettit/Bridge Se Treatment Plan In Progress EDR Documentation Approval Patient Intake Completed QMS-Vtu-Keli <1 Year Pettit-Porcelain/Ceramic Pettit-Porcelain/Ceramic Final Impression(s) For Pettit/Bridge Dec Treatment Plan In Progress EDR Documentation Approval Patient Intake Completed GPD-Sfq-Wbxw <1 Year Resin-based Composite -2 Surfaces, Poste rior Treatment Plan Completed Resin-based Composite -2 Surfaces, Poste rior Resin-based Composite -2 Surfaces, Poste rior EDR Documentation Approval Offic/outpt E&m Estab Low-mod 1 Specimen collection for severe acute res piratory Telemed OFFICE/OUTPATIENT VISIT, EST 992 13 Telehealth patient not reached Offic/outpt E&m Estab Low-mod 1 URINALYSIS, AUTO, W/O SCOPE Offic/outpt E&m Estab Low-mod 1 Patient Intake Completed QTF-Vru-Cnah <1 Year Resin-Based Composite 4+ Surfaces, Anter ior Treatment Plan In Progress Resin-Based Composite 4+ Surfaces, Anter ior EDR Documentation Approval Offic/outpt E&m Estab Low-mod 0 Patient Intake Completed Resin-Based Composite 4+ Surfaces, Anter ior Treatment Plan In Progress EDR Documentation Approval Patient Intake Completed Endodontic Therapy-Bicuspid Tooth Endo Completed Resin-Based Composite 4+ Surfaces, Poste rior Treatment Plan In Progress EDR Documentation Approval Prescription Documentation Patient Intake Completed Full Mouth Series Of Radiographs 2019 Comprehensive Oral Evaluation 0 Caries Risk-Moderate Excluded From Sealant Measure 0 Treatment Plan Initiated EDR Documentation Approval Preven Meds E&m Estab Pt; 40-6 20 Immuniz Admin; 1/combo Vacc/to 20 Immuniz Admin; 2/> Sing/comb V 20 FLU VAC NO PRSV 4 AROLDO Pediatric 020 Routine Venipuncture GLYCOSYLATED HEMOGLOBIN TEST Lipid Panel Thyroid Stim Hormone Collecton Capillary Blood Spec 20 Pneumococcal Vaccine, State Immuniz Admin; 1/combo Vacc/to 19 FLU VAC NO PRSV 4 AROLDO Pediatric 019 Offic/outpt E&m Estab Low-mod 9 Offic/outpt E&m Estab Low-mod 9 Offic/outpt E&m New Mod Sever 9 Advance Directives Directive Yes / No Effective Date File Name No Information Encounters Encounter Description Practice Location Reason(s) For Visit Diagnoses Date Provider Providers Copied on Encounter [facility] , [address] [place] [address], [id number], [place] tel:[phone] [facility] No Information 4 Virginie Gustafson. [address] [place] [address], [facility], . tel:[phone] OFFICE/OUTPA TIENT VISIT, [facility] , [address] [place] [address], [id number], [place] tel:[phone] [facility] diabetes (chief complaint)com ments (chief complaint) Type 2 diabetes mellitus without complication, without long-term current use of insulinNAFLD (nonalcoholic fatty liver disease) 4 Virginie Gustafson. [address] [place] [address], [id number], [place]. tel:[phone] Referring Provider: Veronique Velez [address] [place] [address], [address] . tel:[phone] [facility] , [address] [place] [address], [id number], [place] tel:[phone] [facility] preventive exam (chief complaint)Com ments (chief complaint) Encntr for mineral surveyor exam (general) (routine) w/o abn findingsType 2 diabetes mellitus without complication, without long-term current use of insulinMultip le joint pain 4 Virginie Gustafson. [address] [place] [address], [id number], [place]. tel:[phone] Referring Provider: Veronique Velez [address] [place] [address], [id number] . tel:[phone] OFFICE/OUTPA TIENT VISIT, [facility] , [address] [place] [address], [id number], [place] tel:[phone] [facility] diabetes (chief complaint)com ments (chief complaint) Type 2 diabetes mellitus without complications 3 Virginie Gustafson. [address] [place] [address], [facility], [place]. tel:[phone] Referring Provider: Veronique Velez , [address] [place], [address] . tel:[phone] [facility] , [address] [place] [address], [id number], tel:[phone] [facility] No Information 3 Virginie Gustafson. [address] [place] [address], [facility], [place]. tel:[phone] OFFICE/OUTPA TIENT VISIT, EST [facility] , [address] [place] [address], [id number], [place] tel:[phone] [facility] Pre-Op PE (chief complaint)Amelia ast concerns (chief complaint) Breast reconstructio n deformity 3 Virginie Gustafson. [address] [place] [address], [facility], . tel:[phone] [facility] , [address] [place] [address], [address] [place] [address], [place] tel:[phone] [facility] No Information 3 Virginie Gustafson. [address] [place] [address], [facility], . tel:[phone], [id number], tel:[phone] [facility] Cervical radiculopathy 3 Pitcher Daren. [address] [place] [address], [facility], [place]. tel:[phone] Offic/outpt E&m Estab Low-mod [address], [id number], [place] tel:[phone] [facility] Numbness (chief complaint)Com ments (chief complaint) Cervical radiculopathy 3 Pitcher Daren. [address] [place] [address], [facility], [place]. tel:[phone] [facility] , [address] [place] [address], [id number], tel:[phone] [facility] No Information 3 Virginie Gustafson. [address] [place] [address], [facility], . tel:[phone] [facility] , [address] [place] [address], [id number], tel:[phone] [facility] No Information 2 Brody Yanez. [address] [place] [address], [id number], [place]. tel:[phone] Offic/outpt E&m Estab Low-mod [facility] , [address] [place] [address], [id number], tel:[phone] [facility] Hot flashes (chief complaint)com ments (chief complaint) Hot flashes 2 Virginie Gustafson. [address] [place] [address], [address], [place]. tel:[phone] Referring Provider: Veronique Velez , [address] [place] [address], [id number] . tel:[phone] OFFICE/OUTPA TIENT VISIT, [facility] , [address] [place] [address], [id number], tel:[phone] [facility] Pre-Op PE (chief complaint) Breast reconstructio n deformity 2 Virginie Gustafson. [address] [place] [address], [address], [place]. tel:[phone] Referring Provider: Veronique Velez , [address] [place] [address], [id number] . tel:[phone] [facility] , [address] [place] [address], [id number], [place] tel:[phone] [facility] hypertension (chief complaint)TM Consent (chief complaint) Essential hypertension 2 Soraya Herman. [address] [place] [address], [facility], . tel:[phone] Referring Provider: Veronique Velez , [address] [place] [address], [address] . tel:[phone] OFFICE/OUTPA TIENT VISIT, [facility] , [address] [place] [address], [id number], tel:[phone] [facility] Follow Up of diabetes (chief complaint)com ments (chief complaint) Other specified diabetes mellitus without complication, without long-term current use of insulinEssent ial hypertension Oct- 2 Soraya Herman. [address] [place] [address], [facility], [place]. tel:[phone] Referring Provider: Veronique Velez , [address] [place] [address], [address] . tel:[phone] Offic/outpt E&m Estab [facility] , [address] [place] [address], [id number], tel:[phone] [facility] Urinary complaints (chief complaint) Dysuria 2 Marnie Whaley. [address] [place] [address], [id number], [place]. tel:[phone] Referring Provider: Veronique Velez , [address] [place] [address], [address] . tel:[phone] [facility] , [address] [place] [address], [id number], [place] tel:[phone] [facility] No Information 2 Soraya Herman. [address] [place] [address], [facility], [place]. tel:[phone] [facility] , [address] [place] [address], [id number], tel:[phone] [facility] Nurse Visit (chief complaint) No Information 2 Nurse Office. [address] [place] [address], [address], . tel:[phone] Referring Provider: Veronique Velez , [address] [place] [address], [id number] . tel:[phone] OFFICE/OUTPA TIENT VISIT, [facility] , [address] [place] [address], [id number], [place] tel:[phone] [facility] Pre-Op PE (chief complaint) Encounter for other preprocedural examinationUr inary, incontinence, stress female Apr-2 6 2 White Batsheva. [address] [place] [address], [address], [place]. tel:[phone] Referring Provider: Veronique Velez , [address] [place] [address], [id number] . tel:[phone] Offic/outpt E&m Estab Low-mod [facility] , [address] [place] [address], [id number], [place] tel:[phone] [facility] Insomnia (chief complaint)Com ments (chief complaint) Other insomniaDysur ia Apr-1 - 2 White Batsheva. [address] [place] [address], [facility], [place]. tel:[phone] Referring Provider: Veronique Velez , [address] [place] [address], [id number] . tel:[phone] Psycotherapy , 45 Minutes [facility] , [address] [place] [address], [id number], [place] tel:[phone] [facility] Tobacco Use Disorder, Severe Apr-0 2 Juanito Fisher. [address] [place] [address], [address], [place]. tel:[phone] Psycotherapy , 45 Minutes [facility] , [address] [place] [address], [id number], [place] tel:[phone] [facility] Tobacco Use Disorder, Severe Mar-2 2 Juanito Fisher. [address] [place] [address], [facility], . tel:[phone] [facility] , [address] [place] [address], [id number], tel:[phone] [facility] No Information 2 Brody Yanez. [address] [place] [address], [id number], [place]. tel:[phone] OFFICE/OUTPA TIENT VISIT, EST 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 [address] [place] [address], [facility], [place]. tel:[phone] Referring Provider: Veronique Velez , [address] [place] [address], [id number] . tel:[phone] [facility] , [address] [place] [address], [id number], [place] tel:[phone] [facility] Essential (primary) hypertension Jul-0 2 Soraya Herman. [address] [place] [address], [facility], [place]. tel:[phone] [facility] , [address] [place] [address], [id number], [place] tel:[phone] [facility] No Information 2 Joseline Benítez. [address] [place] [address], [id number], [place]. tel:[phone] [facility] , [address] [place] [address], [address] [place] [address], [place] tel:[phone] [facility] No Information 2 Brody Yanez. [address] [place] [address], [id number], [place]. tel:[phone], [id number], tel:[phone] [facility] No Information 1 Brody Yanez. [address] [place] [address], [id number], [place]. tel:[phone] Offic/outpt E&m Estab Low-mod [address], [id number], [place] tel:[phone] [facility] hypertension (chief complaint)Com ments (chief complaint) Essential (primary) hypertensionM alignant 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, estrogen receptor negativeEstro gen receptor negative status [ER-]Other specified diabetes mellitus without complication, without long-term current use of insulin 1 Soraya Batsheva. [address] [place] [address], [facility], . tel:[phone] Referring Provider: Veronique Velez , [address] [place] [address], [id number] . tel:[phone], [id number], tel:[phone] [facility] No Information 1 Brody Yanez. [address] [place] [address], [id number], [place]. tel:[phone], [id number], [place] tel:[phone] [facility] No Information 1 Brody Yanez. [address] [place] [address], [id number], [place]. tel:[phone], [address] [place] [address], [place] tel:[phone] [facility] No Information 1 Ken Sheldon. [address] [place] [address], [facility], . tel:[phone] Offic/outpt E&m [facility] , [address] [place] [address], [address] [place] [address], tel:[phone] [facility] Sore throat (chief complaint) Acute pharyngitis, unspecified etiology 1 Marnie Whaley. [address] [place] [address], [address] [place] [address], . tel:[phone] [facility] , [address] [place] [address], [id number], tel:[phone] [facility] hypertension (chief complaint)TM Consent (chief complaint) Essential (primary) hypertension 1 Soraya Herman. [address] [place] [address], [facility], . tel:[phone] [facility] , [address] [place] [address], [id number], tel:[phone] [facility] Essential hypertension 1 Soraya Herman. [address] [place] [address], [facility], . tel:[phone] Referring Provider: Veronique Velez , [address] [place] [address], [id number] . tel:[phone] Offic/outpt E&m Estab [facility] , [address] [place] [address], [id number], tel:[phone] [facility] Urinary frequency (chief complaint) Urinary frequency 1 Soraya Herman. [address] [place] [address], [facility], . tel:[phone] Offic/outpt E&m Estab [facility] , [address] [place] [address], [id number], tel:[phone] [facility] hypertension (chief complaint) Essential hypertensionM alignant neoplasm of upper-inner quadrant of right breast in female, estrogen receptor negativeEstro gen receptor negative status [ER-] 1 Soraya Herman. [address] [place] [address], [facility], . tel:[phone] [facility] , [address] [place] [address], [address] [place] [address], tel:[phone] [facility] No Information 1 Hima Bauer. [address] [place] [address], [facility], . tel:[phone] Offic/outpt E&m Estab Low-mod [facility] , [address] [place] [address], [address] [place] [address], tel:[phone] [facility] hypertension (chief complaint)com ments (chief complaint)Sle ep disturbance (chief complaint) Essential (primary) hypertensionI nsomnia, unspecified type 0 Soraya Herman. [address] [place] [address], [facility], [place]. tel:[phone] Referring Provider: Veronique Velez , [address] [place] [address], [id number] . tel:[phone], [address] [place] [address], tel:[phone] [facility] No Information 0 Hima Bauer. [address] [place] [address], [facility], . tel:[phone], [id number], [place] tel:[phone] [facility] No Information 0 Peter Yoder. [address] [place] [address], [address] [place] [address], [place]. tel:[phone], [address] [place] [address], tel:[phone] [facility] No Information 0 Meredith Espinoza. [address] [place] [address], [address], [place]. tel:[phone] Preven Meds E&m Estab Pt; 40-6 [facility] , [address] [place] [address], [id number], [place] tel:[phone] [facility] Preventive exam (chief complaint)com ments (chief complaint) Encounter for general adult medical examination without abnormal findingsBody mass index (BMI) 28.0-28.9, adultStress incontinence in female 0 White Batsheva. [address] [place] [address], [address], [place]. tel:[phone] Referring Provider: Veronique Velez , [address] [place], [address] . tel:[phone] Offic/outpt E&m Estab [facility] , [address] [place] [address], [id number], [place] tel:[phone] [facility] Musculoskelet al pain (chief complaint)Tob acco cessation (chief complaint) Bilateral carpal tunnel syndromeOther tobacco product nicotine dependence, uncomplicated 9 Rachelwendy Gustafson. [address] [place], [place], [facility], . tel:[phone] Offic/outpt E&m Estab [facility] , [address] [place] [address], [id number], [place] tel:[phone] [facility] hypertension (chief complaint)Com ments (chief complaint) Essential hypertensionA nxiety 9 Fu J Carlos. [address], [place], [place], [facility], . tel:[phone] Offic/outpt E&m [facility] , [address] [place] [address], [id number], [place] tel:[phone] [facility] Establish Care (chief complaint)cou gh (chief complaint)Inc ontinence of urine (chief complaint) Essential hypertensionS tress incontinence in femaleDry cough 9 Fu J Carlos. [address], [place], [address], [place]. tel:[phone] Family History Family Member Type Diagnosis Age At Onset No Information Immunizations Vaccine Date Status Comments Influenza administered Source: New Imm unization Record pneumococcal vaccine, unspecified formulation administered Note: [facility] ; Erin rce: Other Registry Influenza administered Source: Other P rovider Pfizer Covid-19 administered Source: Othe r Provider Pfizer Covid- administered Note: [facility] ; Source: Other Registry Influenza administered Source: New Imm unization Record Pneumococcal polysaccharide PPV23 administered Source: New Immuniza tion Record Influenza, injectable, quadrivalent, preservative free, split virus, 0.5 mL dosage, Fluarix Quad administered Source: N ew Immunization Record Payers Payer name Insurance type Covered green party ID Authoriza tion(s) BCBS PPO National [place] [id number] [facility] [employer] Traditional [id number] Medicaid [id number] [facility] MVP Standard Plan [place] [id number] Social History Type Description Quantity Date Captured Comments Sex Female Smoking Status No Information Sexual Orientation Choose not to disclose Gender Identity Choose not to disclose Chief Complaint And Reason For Visit No Information Reason For Referral Reason For Referral No Information Plan Of Treatment Date Type Action Status Goal Lipid Panel. Due on due Goal Lipid panel. Due on due Goal Lipid panel. Due on due Goal Foot exam. Due on due Goal Dilated eye exam . Due on due Goal Thyroid Stim Hor jarrod. Due on due Goal Dietitian. Due on due Goal Unhealthy drug u se screening. Due on due Goal Annual PE. Due on due Goal HEPATITIS C AB T EST. Due on due Goal BMI Physical Edu cation counseling documented in Health Promotion Plan. Due on due Goal Colonoscopy. Due on due Goal INFLUENZA. Due on due Goal HIV-1 AG W/HIV-1 & HIV-2 AB. Due on due Goal Hepatitis C scre ening. Due on due Goal BMI counseling d ocumented in Health Promotion Plan. Due on due Goal ThinPrep Pap w/ HPV. Due on due Goal Depression scree analilia. Due on due Goal Diabetes Screeni ng. Due on due Goal BMI Nutrition co unseling documented in Health Promotion Plan. Due on due Goal Creatinine. Due on 25 due Goal Electrolyte Pane l. Due on due Goal CBC. Due on due Goal Electrocardiogra m, complete (ECG). Due on due Goal Calcium; Tot due Goal ASCVD 10 year ri sk. Due on due Goal Annual PE. Due on due Goal INFLUENZA. Due on due Goal Hepatitis C scre ening. Due on due Goal Dietitian. Due on due Goal Dilated eye exam . Due on due Goal Thyroid Stim Hor jarrod. Due on due Goal HIV-1 AG W/HIV-1 & HIV-2 AB. Due on due Goal Unhealthy drug u se screening. Due on due Goal Urine microalbum in. Due on due Goal Hemoglobin A1C. Due on due Goal Foot exam. Due on due Goal Diabetes Screeni ng. Due on due Goal BMI counseling d ocumented in Health Promotion Plan. Due on due Goal Colonoscopy. Due on due Goal Depression scree analilia. Due on due Goal HEPATITIS C AB T EST. Due on due Goal CBC. Due on due Goal Calcium; Tot due Goal Electrocardiogra m, complete (ECG). Due on due Goal ASCVD 10 year ri sk. Due on due Goal Lipid panel. Due on due Goal Lipid Panel. Due on due Goal Lipid panel. Due on due Goal Dilated eye exam . Due on due Goal Foot exam. Due on due Goal Dietitian. Due on 3 due Goal Urine microalbum in. Due on due Goal Thyroid Stim Hor jarrod. Due on due Goal Hemoglobin A1C. Due on due Goal ASCVD 10 year ri sk. Due on due Goal Lipid panel. Due on due Goal Creatinine. Due on due Goal ThinPrep Pap w/ HPV. Due on due Goal INFLUENZA. Due on due Goal Depression scree analilia. Due on due Goal Colonoscopy. Due on due Goal BMI counseling d ocumented in Health Promotion Plan. Due on due Goal Diabetes Screeni ng. Due on due Goal HIV-1 AG W/HIV-1 & HIV-2 AB. Due on due Goal Annual PE. Due on due Goal HEPATITIS C AB T EST. Due on due Goal Hepatitis C scre ening. Due on due Goal Unhealthy drug u se screening. Due on due Goal Chlamydia/GC Amplification d ue Goal CBC. Due on due Goal Electrolyte Pane l. Due on due Goal Electrocardiogra m, complete (ECG). Due on due Goal Calcium; Tot due Goal Lipid panel. Due on due Goal Chlamydia/GC Amplification d ue Goal Depression scree analilia. Due on due Goal BMI counseling d ocumented in Health Promotion Plan. Due on due Goal HIV-1 AG W/HIV-1 & HIV-2 AB. Due on due Goal Diabetes Screeni ng. Due on due Goal Colonoscopy. Due on 023 due Goal INFLUENZA. Due on 2 due Goal Annual PE. Due on 3 due Goal ThinPrep Pap w/ HPV. Due on due Goal HEPATITIS C AB T EST. Due on due Goal Electrolyte Pane l. Due on due Goal Calcium; Tot due Goal CBC. Due on due Goal Creatinine. Due on 23 due Goal Electrocardiogra m, complete (ECG). Due on due Goal ASCVD 10 year ri sk. Due on due Goal Lipid panel. Due on 025 due Goal Lipid Panel. Due on 025 due Goal HEPATITIS C AB T EST. Due on due Goal Depression scree analilia. Due on due Goal INFLUENZA. Due on 2 due Goal Colonoscopy. Due on 023 due Goal HIV-1 AG W/HIV-1 & HIV-2 AB. Due on due Goal ThinPrep Pap w/ HPV. Due on due Goal Annual PE. Due on 3 due Goal BMI counseling d ocumented in Health Promotion Plan. Due on due Goal Diabetes Screeni ng. Due on due Goal Creatinine. Due on due Goal Electrocardiogra m, complete (ECG). Due on due Goal CBC. Due on due Goal Calcium; Tot due Goal ASCVD 10 year ri sk. Due on due Goal Lipid panel. Due on due Goal Chlamydia/GC Amplification d ue Goal Lipid Panel. Due on due Goal Electrolyte Pane l. Due on due Goal Depression scree analilia. Due on due Goal HIV-1 AG W/HIV-1 & HIV-2 AB. Due on due Goal HEPATITIS C AB T EST. Due on due Goal BMI counseling d ocumented in Health Promotion Plan. Due on due Goal Diabetes Screeni ng. Due on due Goal INFLUENZA. Due on due Goal ThinPrep Pap w/ HPV. Due on due Goal CBC. Due on due Goal Electrocardiogra m, complete (ECG). Due on due Goal Electrolyte Pane l. Due on due Goal Calcium; Tot due Goal Creatinine. Due on due Goal ASCVD 10 year ri sk. Due on due Goal Lipid panel. Due on due Goal Lipid Panel. Due on due Goal Colonoscopy. Due on due Goal Annual PE. Due on 3 due Goal Chlamydia/GC Amplification d ue Goal HEPATITIS C AB T EST. Due on due Goal BMI counseling d ocumented in Health Promotion Plan. Due on due Goal Depression scree analilia. Due on due Goal INFLUENZA. Due on due Goal Diabetes Screeni ng. Due on due Goal Annual PE. Due on due Goal ThinPrep Pap w/ HPV. Due on due Goal HIV-1 AG W/HIV-1 & HIV-2 AB. Due on due Goal Calcium; Tot due Goal Creatinine. Due on due Goal CBC. Due on due Goal Electrolyte Pane l. Due on due Goal Electrocardiogra m, complete (ECG). Due on due Goal ASCVD 10 year ri sk. Due on due Goal Lipid panel. Due on due Goal Chlamydia/GC Amplification d ue Goal Lipid Panel. Due on due Goal Colonoscopy. Due on due Goal Lipid panel. Due on due Goal Lipid Panel. Due on due Goal INFLUENZA. Due on due Goal ThinPrep Pap w/ HPV. Due on due Goal Colonoscopy. Due on due Goal Depression scree analilia. Due on due Goal Diabetes Screeni ng. Due on due Goal Chlamydia/GC Amplification d ue Goal BMI counseling d ocumented in Health Promotion Plan. Due on due Goal Creatinine. Due on due Goal Electrolyte Pane l. Due on due Goal CBC. Due on due Goal HEPATITIS C AB T EST. Due on due Goal HIV-1 AG W/HIV-1 & HIV-2 AB. Due on due Goal Annual PE. Due on due Goal Calcium; Tot due Goal Electrocardiogra m, complete (ECG). Due on due Goal ASCVD 10 year ri sk. Due on due Goal Lipid Panel. Due on due Goal Lipid panel. Due on due Goal Colonoscopy. Due on due Goal BMI counseling d ocumented in Health Promotion Plan. Due on due Goal Chlamydia/GC Amplification d ue Goal HIV-1 AG W/HIV-1 & HIV-2 AB. Due on due Goal Depression scree analilia. Due on due Goal ThinPrep Pap w/ HPV. Due on due Goal HEPATITIS C AB T EST. Due on due Goal Annual PE. Due on due Goal Calcium; Tot due Goal CBC. Due on due Goal Creatinine. Due on due Goal Electrocardiogra m, complete (ECG). Due on due Goal Electrolyte Pane l. Due on due Goal ASCVD 10 year ri sk. Due on due Goal INFLUENZA. Due on due Goal Diabetes Screeni ng. Due on due Goal Lipid panel. Due on 023 due Goal Lipid Panel. Due on 023 due Goal Electrolyte Pane l. Due on due Goal Calcium; Tot due Goal CBC. Due on due Goal Creatinine. Due on due Goal Electrocardiogra m, complete (ECG). Due on due Goal INFLUENZA. Due on due Goal HIV-1 AG W/HIV-1 & HIV-2 AB. Due on due Goal Chlamydia/GC Amplification d ue Goal Diabetes Screeni ng. Due on due Goal Colonoscopy. Due on 022 due Goal Annual PE. Due on due Goal Mammogram. Due on 3 due Goal Depression scree analilia. Due on due Goal HEPATITIS C AB T EST. Due on due Goal BMI counseling d ocumented in Health Promotion Plan. Due on due Goal ThinPrep Pap w/ HPV. Due on due Goal Electrocardiogra m, complete (ECG). Due on due Goal HEPATITIS C AB T EST. Due on due Goal ThinPrep Pap w/ HPV. Due on due Goal Mammogram. Due on 3 due Goal Annual PE. Due on 2 due Goal Diabetes Screeni ng. Due on due Goal Chlamydia/GC Amplification d ue Goal Colonoscopy. Due on 022 due Goal INFLUENZA. Due on 2 due Goal Depression scree analilia. Due on due Goal HIV-1 AG W/HIV-1 & HIV-2 AB. Due on due Goal BMI counseling d ocumented in Health Promotion Plan. Due on due Goal Calcium; Tot due Goal Electrolyte Pane l. Due on due Goal CBC. Due on due Goal Creatinine. Due on 23 due Goal Lipid panel. Due on 023 due Goal Lipid Panel. Due on 023 due Goal Lipid panel. Due on 023 due Goal Lipid Panel. Due on 023 due Goal ThinPrep Pap w/ HPV. Due on due Goal HEPATITIS C AB T EST. Due on due Goal Depression scree analilia. Due on due Goal Creatinine. Due on 23 due Goal Diabetes Screeni ng. Due on due Goal INFLUENZA. Due on 2 due Goal Chlamydia/GC Amplification d ue Goal BMI counseling d ocumented in Health Promotion Plan. Due on due Goal Mammogram. Due on 3 due Goal HIV-1 AG W/HIV-1 & HIV-2 AB. Due on due Goal Annual PE. Due on 2 due Goal Colonoscopy. Due on 022 due Goal Calcium; Tot due Goal CBC. Due on due Goal Electrolyte Pane l. Due on due Goal Electrocardiogra m, complete (ECG). Due on due Goal Annual PE. Due on 2 due Goal BMI counseling d ocumented in Health Promotion Plan. Due on due Goal HEPATITIS C AB T EST. Due on due Goal Diabetes Screeni ng. Due on due Goal Chlamydia/GC Amplification d ue Goal ThinPrep Pap w/ HPV. Due on due Goal INFLUENZA. Due on 2 due Goal HIV-1 AG W/HIV-1 & HIV-2 AB. Due on due Goal Colonoscopy. Due on due Goal Mammogram. Due on 3 due Goal Depression scree analilia. Due on due Goal CBC. Due on due Goal Electrocardiogra m, complete (ECG). Due on due Goal Electrolyte Pane l. Due on due Goal Calcium; Tot due Goal Creatinine. Due on due Goal Lipid Panel. Due on due Goal Lipid panel. Due on due Goal Electrocardiogra m, complete (ECG). Due on due Goal Lipid Panel. Due on due Goal Lipid panel. Due on due Goal Chlamydia/GC Amplification d ue Goal Mammogram. Due on 2 due Goal HIV-1 AG W/HIV-1 & HIV-2 AB. Due on due Goal Diabetes Screeni ng. Due on due Goal INFLUENZA. Due on 2 due Goal Annual PE. Due on due Goal BMI counseling d ocumented in Health Promotion Plan. Due on due Goal Colonoscopy. Due on due Goal HEPATITIS C AB T EST. Due on due Goal Depression scree analilia. Due on due Goal CBC. Due on due Goal ThinPrep Pap w/ HPV. Due on due Goal Colonoscopy. Due on due Goal Annual PE. Due on due Goal ThinPrep Pap w/ HPV. Due on due Goal Depression scree analilia. Due on due Goal INFLUENZA. Due on 2 due Goal HIV-1 AG W/HIV-1 & HIV-2 AB. Due on due Goal Mammogram. Due on due Goal Diabetes Screeni ng. Due on due Goal BMI counseling d ocumented in Health Promotion Plan. Due on due Goal HEPATITIS C AB T EST. Due on due Goal Creatinine. Due on due Goal CBC. Due on due Goal Electrolyte Pane l. Due on due Goal Electrocardiogra m, complete (ECG). Due on due Goal Calcium; Tot. Due on 2021 due Goal Chlamydia/GC Amplification d ue Goal Lipid Panel. Due on due Goal Lipid panel. Due on due Goal Lipid Panel. Due on due Goal Lipid panel. Due on due Goal Diabetes Screeni ng. Due on due Goal Depression scree analilia. Due on due Goal HEPATITIS C AB T EST. Due on due Goal INFLUENZA. Due on due Goal Mammogram. Due on due Goal Colonoscopy. Due on due Goal BMI counseling d ocumented in Health Promotion Plan. Due on due Goal ThinPrep Pap w/ HPV. Due on due Goal Annual PE. Due on due Goal HIV-1 AG W/HIV-1 & HIV-2 AB. Due on due Goal Electrolyte Pane l. Due on due Goal Creatinine. Due on due Goal CBC. Due on due Goal Calcium; Tot. Due on 2021 due Goal Electrocardiogra m, complete (ECG). Due on due Goal Lipid Panel. Due on due Goal Lipid panel. Due on due Goal HIV-1 AG W/HIV-1 & HIV-2 AB. Due on due Goal ThinPrep Pap w/ HPV. Due on due Goal Annual PE. Due on 2 due Goal HEPATITIS C AB T EST. Due on due Goal Diabetes Screeni ng. Due on due Goal Mammogram. Due on 2 due Goal BMI counseling d ocumented in Health Promotion Plan. Due on due Goal Colonoscopy. Due on due Goal Electrolyte Pane l. Due on due Goal Calcium; Tot. Due on 2021 due Goal Electrocardiogra m, complete (ECG). Due on due Goal CBC. Due on due Goal Creatinine. Due on due Goal INFLUENZA. Due on due Goal Depression scree analilia. Due on due Goal INFLUENZA. Due on due Goal Mammogram. Due on due Goal Diabetes Screeni ng. Due on due Goal BMI counseling d ocumented in Health Promotion Plan. Due on due Goal Annual PE. Due on due Goal ThinPrep Pap w/ HPV. Due on due Goal Depression scree analilia. Due on due Goal Colonoscopy. Due on due Goal HEPATITIS C AB T EST. Due on due Goal HIV-1 AG W/HIV-1 & HIV-2 AB. Due on due Goal Electrolyte Pane l. Due on due Goal Creatinine. Due on due Goal Electrocardiogra m, complete (ECG). Due on due Goal Calcium; Tot. Due on 2021 due Goal CBC. Due on due Goal Depression scree analilia. Due on due Goal Diabetes Screeni ng. Due on due Goal BMI counseling d ocumented in Health Promotion Plan. Due on due Goal HEPATITIS C AB T EST. Due on due Goal ThinPrep Pap w/ HPV. Due on due Goal Mammogram. Due on due Goal Colonoscopy. Due on due Goal HIV-1 AG W/HIV-1 & HIV-2 AB. Due on due Goal Annual PE. Due on due Goal INFLUENZA. Due on due Goal Electrocardiogra m, complete (ECG). Due on due Goal CBC. Due on due Goal Calcium; Tot. Due on 2021 due Goal Electrolyte Pane l. Due on due Goal Creatinine. Due on due Goal Lipid panel. Due on due Goal Lipid Panel. Due on due Goal Electrocardiogra m, complete (ECG). Due on due Goal CBC. Due on due Goal Calcium; Tot. Due on 2021 due Goal Electrolyte Pane l. Due on due Goal HIV-1 AG W/HIV-1 & HIV-2 AB. Due on due Goal Colonoscopy. Due on due Goal Mammogram. Due on due Goal ThinPrep Pap w/ HPV. Due on due Goal HEPATITIS C AB T EST. Due on due Goal Colorectal cance r screen, stool DNA QuARTS with hemoglobin JESSI. Due on due Goal BMI counseling d ocumented in Health Promotion Plan. Due on due Goal Depression scree analilia. Due on due Goal Lipid Panel. Due on due Goal Creatinine. Due on due Goal Lipid panel. Due on due Goal Annual PE. Due on due Goal INFLUENZA. Due on due Goal Diabetes Screeni ng. Due on due Goal Lipid panel. Due on due Goal Electrocardiogra m, complete (ECG). Due on due Goal Diabetes Screeni ng. Due on due Goal BMI counseling d ocumented in Health Promotion Plan. Due on due Goal Lipid Panel. Due on due Goal Colonoscopy. Due on due Goal Depression scree analilia. Due on due Goal HIV-1 AG W/HIV-1 & HIV-2 AB. Due on due Goal INFLUENZA. Due on due Goal Annual PE. Due on due Goal ThinPrep Pap w/ HPV. Due on due Goal Mammogram. Due on due Goal HEPATITIS C AB T EST. Due on due Goal Creatinine. Due on due Goal Electrolyte Pane l. Due on due Goal CBC. Due on due Goal Calcium; Tot. Due on 2020 due Goal Creatinine. Due on due Goal Diabetes Screeni ng. Due on due Goal Lipid Panel. Due on due Goal Lipid panel. Due on due Goal Electrocardiogra m, complete (ECG). Due on due Goal Annual PE. Due on due Goal HIV-1 AG W/HIV-1 & HIV-2 AB. Due on due Goal HEPATITIS C AB T EST. Due on due Goal Mammogram. Due on due Goal BMI counseling d ocumented in Health Promotion Plan. Due on due Goal Depression scree analilia. Due on due Goal ThinPrep Pap w/ HPV. Due on due Goal Calcium; Tot. Due on 2020 due Goal CBC. Due on due Goal Electrolyte Pane l. Due on due Goal HEPATITIS C AB T EST. Due on due Goal HIV-1 AG W/HIV-1 & HIV-2 AB. Due on due Goal Depression scree analilia. Due on due Goal ThinPrep Pap w/ HPV. Due on due Goal Mammogram. Due on due Goal BMI counseling d ocumented in Health Promotion Plan. Due on due Goal Annual PE. Due on 2 due Goal Calcium; Tot. Due on 2020 due Goal CBC. Due on due Goal Electrocardiogra m, complete (ECG). Due on due Goal Creatinine. Due on due Goal Electrolyte Pane l. Due on due Goal Diabetes Screeni ng. Due on due Goal Lipid panel. Due on due Goal Lipid Panel. Due on due Goal Depression scree analilia. Due on due Goal Annual PE. Due on 2 due Goal HEPATITIS C AB T EST. Due on due Goal Mammogram. Due on due Goal HIV-1 AG W/HIV-1 & HIV-2 AB. Due on due Goal BMI counseling d ocumented in Health Promotion Plan. Due on due Goal ThinPrep Pap w/ HPV. Due on due Goal CBC. Due on due Goal Calcium; Tot. Due on 2020 due Goal Electrolyte Pane l. Due on due Goal Creatinine. Due on due Goal Electrocardiogra m, complete (ECG). Due on due Goal Diabetes Screeni ng. Due on due Goal Lipid panel. Due on due Goal Lipid Panel. Due on due Goal HEPATITIS C AB T EST. Due on due Goal HIV-1 AG W/HIV-1 & HIV-2 AB. Due on due Goal ThinPrep Pap w/ HPV. Due on due Goal Depression scree analilia. Due on due Goal BMI counseling d ocumented in Health Promotion Plan. Due on due Goal Mammogram. Due on due Goal Annual PE. Due on due Goal Creatinine. Due on due Goal Calcium; Tot. Due on 2020 due Goal Electrolyte Pane l. Due on due Goal CBC. Due on due Goal Electrocardiogra m, complete (ECG). Due on due Goal Diabetes Screeni ng. Due on due Goal Lipid panel. Due on due Goal Lipid Panel. Due on due Goal Lipid Panel. Due on due Goal Lipid panel. Due on due Goal Mammogram. Due on due Goal Electrocardiogra m, complete (ECG). Due on due Goal Electrolyte Pane l. Due on due Goal CBC. Due on due Goal Calcium; Tot. Due on 2020 due Goal Creatinine. Due on due Goal Diabetes Screeni ng. Due on due Goal Depression scree analilia. Due on due Goal BMI counseling d ocumented in Health Promotion Plan. Due on due Goal Annual PE. Due on due Goal ThinPrep Pap w/ HPV. Due on due Goal HEPATITIS C AB T EST. Due on due Goal HIV-1 AG W/HIV-1 & HIV-2 AB. Due on due Goal Annual PE. Due on due Goal HIV-1 AG W/HIV-1 & HIV-2 AB. Due on due Goal Electrocardiogra m, complete (ECG). Due on due Goal Creatinine. Due on due Goal CBC. Due on due Goal Calcium; Tot. Due on 2019 due Goal Electrolyte Pane l. Due on due Goal ThinPrep Pap w/ HPV. Due on due Goal HEPATITIS C AB T EST. Due on due Goal BMI counseling d ocumented in Health Promotion Plan. Due on due Goal Depression scree analilia. Due on due Goal Diabetes Screeni ng. Due on due Goal Urinalysis. Due on due Goal Lipid Panel. Due on due Goal Mammogram. Due on 0 due Goal Lipid panel. Due on due Goal Tobacco cessation counseling ordered Goal Tobacco cessation counseling ordered Goal HIV-1 AG W/HIV-1 & HIV-2 AB. Due on due Goal Calcium; Tot. Due on 2019 due Goal Electrolyte Pane l. Due on due Goal Creatinine. Due on due Goal Electrocardiogra m, complete (ECG). Due on due Goal CBC. Due on due Goal Diabetes Screeni ng. Due on due Goal Mammogram. Due on 0 due Goal Lipid panel. Due on due Goal Lipid Panel. Due on due Goal Urinalysis. Due on due Goal HEPATITIS C AB T EST. Due on due Goal BMI counseling d ocumented in Health Promotion Plan. Due on due Goal ThinPrep Pap w/ HPV. Due on due Goal Depression scree analilia. Due on due Goal Annual PE. Due on 2 due Goal Tobacco cessation counseling completed Goal Dietary manageme nt education, guidance, and counseling completed Referral Ordered: [facility] Neurosurgery -Neurosurgery (related to Cervical radiculopathy) ordered Referral Referred To: [facility] Neurosurgery [address] [place] [address]
[facility], [address] [place], [address] [phone] Ordered: Referrals: Neurosurgery. [facility] Neurosurgery. Evaluate and treat ordered Referral Ordered: cessation Smoking -*[facility] (related to Other tobacco product nicotine dependence, uncomplicated) ordered Referral Referred To: cessation Smoking Ordered: Referrals: *[facility]. cessation Smoking. Evaluate and treat ordered Referral Ordered: [facility] Urogynecology -Gynecology (related to Stress incontinence in female) ordered Referral Referred To: [facility] Urogynecology [address] [facility]
Medical Office Building [address] [place], [address] [phone] Ordered: Referrals: Gynecology. [facility] Urogynecology. Evaluate and treat ordered Future Order: Lab Order Cologuar d Lab ([id number]), Ordered on: Ordered Future Order: Radiology Order Ce rvical Spine 2-3 Views (XR125), Ordered on: Ordered Future Order: Lab Order TSH ([id number]), Body Site: Right Arm, Collected on: , Sent on: Sent History Of Present Illness Encounter Date Complaint History Of Prese nt Illness diabetes Associated sympt oms include: burning of extremities. Pertinent negatives include blurred vision, chest pain, frequent infections, urinary frequency and slow healing wounds / sores. Additional information: pt reports numbness/tingling in L hand since I had cancer. comments pt reports takin g 20 mg fluoxetine QD preventive exam Last LMP was 05/2020. Menopausal symptoms negative for: insomnia. Menopausal symptoms positive for: hot flashes, night sweats and vaginal dryness. Pertinent negatives include vaginal discharge and vaginal itching. Diet healthy.The client states Client's exercise level is moderate and frequency is daily. The client has not been exposed to passive vaping. The client does not drink alcohol. Comments imms: tdap pt re ports interest it getting today.labs: 09/09/2021t is requesting refills on lexapro and ozempic comments pt reports did b lood work through [facility] todaypt reports would like physical today; not just dm f/u diabetes Associated sympt oms include: burning of extremities. Pertinent negatives include chest pain, frequent infections, urinary frequency, slow healing wounds / sores and weight loss. Additional information: pt reports neuropathy in both hands. Breast concerns The client prese nts with a complaint of . Symptoms are unsure if cyclic. Status: No Change. Location #1: Bilateral breast, Location #2: Bilateral breast and Location #3: Bilateral breast. Last time complaint was evaluated: 07/06/2022. Was condition evaluated by an outside provider? No. Context includes: breast implant(s). ROS symptoms include: lethargy. [facility] BILATERAL NIPPLE RECONSTRUCTION WITH POSSIBLE FAT GRAFTING and bilateral medial dog ear revision Surgeon: Juanito Carcamo MD FACSSurgery date: 07/22/2022.Medication allergies: Ondansetron, oxycodone, sorbaview dressings.Allergy to shellfish/iodine: None.Previous received anesthesia? Yes. Reaction: None. Numbness (comments) Comments: [facility] , some concerns related to cancer Numbness Onset was 4 rajesh hs ago and it was gradual. Duration is 1 Week. Location of numbness is left arm (all). The problem occurs intermittently. The context includes diabetes. Symptom is aggravated by rest. Relieving factors include Raising limb andmassage. Associated symptoms include paresthesia and tingling. Additional information: Pt started having neck pain in February. Was seeing chiropractor. Wasn't improving. Made appt [facility] March. Pain migrate into shoulder in April. Last week, pain migrated down rest of left arm. Holding arm above head relieves tingling. Comments Pt started havin g neck pain in February. Was seeing chiropractor. Wasn't improving. Made appt at [facility] in March. Pain migrate into shoulder in April. Last week, pain migrated" down rest of left arm. Holding arm above head relieves tingling. Arm is aching while sitting still, especially upon first sitting down. Pt believes Sx could be d/t pinched nerve. No Hx of this per pt. comments Last menses was t wonders if she is going through menopause or if related to cancer/chemo03/25 has f/u with Oncologist Hot flashes Associated sympt oms include hot flashes and cold sweats. Pertinent negatives include abdominal pain and mood swings. Additional information: c/o worsening hot flashes since the summer months, happening day/night. Cold sweats. Plans to see OBGYN today as well. Prev. used NuvaRing and IUD removed 11/2021. Finished Chemo July 2021. 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 Mirena IUD removedPt reports no allergy to shellfish or iodine. Anesthesia History: Pt reports has had anesthesia in the past with no reaction. Fax Number: hypertension Additional infor mation: BP was 120/80 10/20/21 pt advised to d/c amlodipine and f/u 1 week later. Pt reports BP has been good and provides readings of 125/75, 121/73, 118/80, no concerns today. TM Consent TELECOMMUNICATIO NS APPOINTMENT:THIS PATIENT AND GUARDIAN EXPRESSED INFORMED CONSENT TO THIS THEATRICAL VARIETY AGENT, PRIOR TO INITIATING THIS TELECOMMUNICATIONS ENCOUNTER.I DISCUSSED WITH PATIENT AND GUARDIAN LIMITATIONS OF TELECOMMUNICATION MODALITY, AND LIKELY BENEFITS OF IN-PERSON MEDICAL APPOINTMENT VS TELECOMMUNICATION APPOINTMENTS.THE PATIENT AND GUARDIAN EXPRESS UNDERSTANDING OF THE ABOVE, AND ARE DESIROUS OF THIS TELECOMMUNICATION APPOINTMENT TODAY.This visit will be billed to your insurance and could result in a balance just as if you were seen in office. comments DM f/u A1c was 7 .3% 07/16/21, pt started metformin 500mg BID-pt advised to f/u/repeat A1c in 3 monthsDue COVID #3, tdap Follow Up of diabetes Managing w ith: Oral medications. Pertinent negatives include blurred vision and chest pain. Additional information: Pt states that everything is good and no issues with metformin and confirmed that she is taking 500 MG 2x daily.. Urinary complaints Client report s no pain. Pertinent negatives include hematuria, slow stream and strain to urinate. Additional information: c/o symptoms as of Tuesday or Sat-feels pressure towards to end of emptying bladder. Hx of kidney stones. pt atilio. to have anterior colporrhaphy, mid-urethal sling placement on 09/24/10. Nurse Visit Pt presents in o ffice for labs. Pt was fasting. Labs obtained without difficulty. Pre-Op PE Chief Complaint: Severe urinary stress incontinencePlanned Procedure: Anterior colporrhaphy, mid-urethal sling placement Surgery Date: 09/24/21Surgeon: Dr. Foster Number: [phone]'s office states EKG and labs are provider discretionStarted oxybutynin 5mg daily last weekReq. refill of metformin #90 [facility] Pre-Op PE (comments) Comments: - 45 y/o F presents for pre-op evaluation. Please see above for procedure details-Feels well today. No recent fevers or URI symptoms-PMHx: DM2, breast cancer, htnfinished oral chemo at the end of julyfeeling much improvement in energy-Surgical Hx: bilateral mastectomy december 2020, blackener exchange was may 2021, cholecystectomy 2017quit smoking cigarettes few months ago- through hypnotherapyvaping sporadicallyCardiovascular or pulmonary risk factors: nonePrior h/o of anesthetic complications: noPrior h/o bleeding problems: noPrior h/o DVT/PE: noPrior h/o infections (VRE, MRSA): noReaction to tape or latex: noFamily history of anesthetic complications, bleeding problems or DVT: no Comments InsomniaImms: Td ap Labs: 07/16/21Taper off of GabapentinStart Trazodone Taking 1 or 2 Trazodone? Insomnia The patient pres ents with sleep problems. Relevant history: a BMI of 27.70. The client does not have: use of alcohol. The client denies changes in appetite, difficulty concentrating, difficulty initiating sleep, difficulty maintaining sleep or increased fatigue.Additional information: Pt tapered Jessica. Started Trazodone. Better effects when Pt takes earlier in the night. Pt takes x2 tabs qhs. diabetes Patient is compl iant with using medication, and follow-up. Additional information: reports ha1c has been high and here to check it. rib pain The symptoms beg an 1 week ago. PT reports ran into a stroller, hurt her right side. REports difficulty with breathing at times. Will take aleve to help. Denies any bruising or swelling. hypertension Pertinent negati ves include chest pain, dyspnea, fatigue, headache, irregular heartbeat/palpitations and visual disturbances. Additional information: Pt taking meds, no concerns, BP checked at appts. Average 115-135/unsure of diastolic. Comments HTNLast PE: 02/17Imms: Flu, Tdap Labs: 02/17/2010 CT scan02/16 @1pm Hem/Onc, Start chemo oral meds?High glucose, wondering if needing to be addressed. Recent labs at [facility]. Sore throat hypertension Pertinent negati ves include chest pain, claudication, dyspnea, fatigue, headache, irregular heartbeat/palpitations and visual disturbances. She does not have barriers to taking medication. The patient understands medication. Additional information: Pt started amlodipine 2.5mg/day on 07/21. Has checked BP 3x since starting rx 148/??, 130/?? Started chemo recently-has a lot going on. TM Consent Verbal Tele-Med Consent THIS PATIENT AND/OR GUARDIAN EXPRESSED INFORMED CONSENT TO THIS THEATRICAL VARIETY AGENT, PRIOR TO INITIATING THIS TELEMEDICINE ENCOUNTER.THE LIMITATIONS OF TELEMEDICINE MODALITY, AND LIKELY BENEFITS OF IN-PERSON MEDICAL APPOINTMENT VS TELEMEDICINE APPOINTMENTS WERE DISCUSSED WITH PATIENT AND/OR GUARDIANTHE PATIENT AND/OR GUARDIAN EXPRESS UNDERSTANDING OF THE ABOVE, AND ARE DESIROUS OF THIS TELEMEDICINE APPOINTMENT TODAY. DOCUMENTATION INCLUDED ABOVE PER [place] BILL [id number] to COVID 19 pandemic, this visit was conducted as a telemedicine visit via Zoom. Urinary frequency The onset was 1 day ago. Associated symptoms include urinary frequency, incomplete emptying and urgency. Pertinent negatives include dysuria and hematuria. Additional information: Pt reports pressure with urination, no burning. Pt denies blood. Denies cloudiness and fol odor. Pt has not taken any AZO.. hypertension Associated sympt oms include fatigue and headache. Pertinent negatives include chest pain, dyspnea and irregular heartbeat/palpitations. Additional information: 130-170s/80s-90s at home. hypertension Associated sympt oms include headache. Pertinent negatives include chest pain, claudication, dyspnea, fatigue, irregular heartbeat/palpitations, tinnitus, transient weakness, tremor and visual disturbances. She does not have barriers to taking medication. The patient understands medication. Additional information: Not checking BP at home. Rare migraines. Saw eye doctor last week eyes are healthy. Not currently exercising. Smoking 1 cig. a few times wk, vaping daily comments Pt takes meloxic am prn hasn't used since Spring, summer Sleep disturbance The patient pr esents with sleep problems. Relevant history: time to fall asleep is 2 hours per night and awakenings at night occur 2 times per night. The patient has the following risk factors for insomnia: smoking. The patient does not have: use of alcohol. The patient denies awakening with choking, gasping during sleep, headache upon awakening, sleep walking or snoring (reported by patient).Additional information: Pt states having trou ble sleeping since time change, going to bed at 11 but can't fall asleep until 1am, waking 1-2x night to urinate, up for the day at 6 am. Pt mentions she talks in her sleep. Bought melatonin but hasn't taken it yet. Preventive exam Last LMP was . Her menses is regular with light flow with a frequency of every 28 days. Negative for: breast discharge, breast lump(s) and breast pain. Positive for: breast self exam. Menopausal symptoms negative for: insomnia, night sweats and vaginal dryness. Menopausal symptoms positive for: hot flashes. Associated symptoms include nocturia, urinary incontinence and urinary urgency. Pertinent negatives include anxiety, depression, vaginal discharge and vaginal itching. Diet healthy. She does not take calcium. She is getting adequate sunlight exposure. She does take multivitamins. She does not take Folic acid.The patient states her exercise level is moderate and frequency is daily. The patient does use tobacco. She has not been exposed to passive smoke. She has not been exposed to passive vaping. She does not drink alcohol. Additional information: pt c/o nocturia 1-2x, urinary incontinence, frequency and urgency. Wearing a pad every day d/t leaking. Using 3-4 pads per day.. comments imms: flu, Tdapl abs: N/Apap: pt reports last Pap was in February 2018. 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 Was scheduled to have Hysterectomy but cancelled the sx d/t date issues. mammo: February 2018 last one, Pt reports they thought they saw something, Pt given phone numbers today in office. concerns: Pt reports that she has bladder issues and would like to discuss referral to urology d/t leakage. Musculoskeletal pain Location: b ilateral hand. Associated symptoms include numbness. Additional information: c/o bilat hand pain, states first started when she was w/ daughter. Has been noticed pain in feet as well a few years ago. Pain is worse in the am, notices more when driving, using chopsticks, mowing law. Feels numbness in hands if not sleeping flat, or if sleeping on arm. Sees chiro 2x mo. Tobacco cessation Comments HTN F/u 6/5switc h her to amlodipineBring in home BP log and cuff at her next OV hypertension Pertinent negati ves include chest pain, dyspnea, fatigue and irregular heartbeat/palpitations. Additional information: Pt reports checking Bp readings periodically. Average 129/82. Pt reports occasionally feeling lightheaded/unsteady. hypertension (comments) tolerate d current dose of amlodipine very well w/o any side effects. some very sporadic and brief dizziness, related to posture changes. Establish Care New pt here to stacey kelly. Previously seen in [place] Dr. Hermelinda Blevins at [facility]. Moved here in July-family owns [employer]. PMH: High BP, AnxietySurg Hx: gallbladder removed 05/2017OBGYN: 3 children ages 7, 18, 19 hx of inner endometriosis-was rec. to have hysterectomy couldn't afford surgery, hx of weak bladderLast PAP: 2017-normal, Mammo 02/2018-repeat 06/2018-normal Family Hx: Mother of lung cancer, also had TB as a childLast PE: 2017Last Td: unsure Release for Previous Records: Pt states signed prior to OV Incontinence of urine There is n o pain. It occurs daily. The problem is with no change. The causes of the leakage are coughing. The patient denies receiving treatment. Additional information: history of childbirth, history of stones, pt states since having 3 kids now has a weak bladder and has to wear panty liners due to constant cough caused by BP med.. cough Onset: on 2018. The patient describes the cough as dry and non-productive. It occurs persistently. The problem has not changed. Associated symptoms include cough. Pertinent negatives include dyspnea. Additional information: c/o dry cough since July when she started lisinopril for her BP. States she initially had a cold which has since resolved but the cough persists. Establish Care (comments) BP was found elevated 160/90 at PCP in [place], was started on lisinopril since mid July, has been dry coughing since then. never been on BP meds other than this time. has been on lexapro since apr 2018 for anxiety, feels it helped so much. anxiety is under complete control. Incontinence of urin e (comments) cough makes it worse.she is known to have endometriosis, her VALET MANAGER recommend total hysterectomy, her menorrhagia is very controlled with current Nuva ring. I will need 2nd opinion later she stated. Functional Status Date Functional Assessmen t No Information Instructions Date Instruction Additional Infor elinor plain filmsdexadron 4 BID x 1 week the 1 daily x 1 weekconting: MRI Related to Cervical radiculopathy Hold NSAIDs, aspirin and omega 3 fatty acids 1 week prior to surgerymy stop metformin 24 hours before surgery and resume when eating/drinking normally againNo food or liquids the morning of surgery.Call surgeon if develops respiratory illness, fever, or other illness. Related to Encounter for other preprocedural examination Keep a regular sched ule and avoid napsTry to get rid of or deal with things that make you worryAvoid screens at least 1 hour before bedUse bed only for sleepingavoid stimulating beverages (caffeine), or beverages that can worsen sleep (alcohol) or cigarettes before bedTry the CALM jesus or meditating. Related to Other insomnia Below are some helpf ul sleep hygiene habits. Please try these to help with your fatigue.Keep a regular schedule and avoid naps >30 minutes during the dayTry to get rid of or deal with things that make you worryAvoid screens at least 1 hour before bedMake your room a dark, quiet place to sleepUse bed only for sleepingavoid stimulating beverages (caffeine), or beverages that can worsen sleep (alcohol) or cigarettes before bed Exercising to promote good quality sleep. As little as 10 minutes of aerobic exercise, such as walking or cycling, can drastically improve nighttime sleep quality. Avoid strenuous activity close to bedtime. Steering clear of food that can be disruptive right before sleep. Heavy or rich foods, fatty or fried meals, spicy dishes, citrus fruits, and carbonated drinks. Related to Insomnia, unspecified type Your blood pressure was great today. It is important to lower this to protect your body and maintain your health group home. The following are some recommendations to help you lower your blood pressure without a medication.Engage in aerobic exercise most days of the week for at least 30 minutes.Your diet should be well balanced and high fruits, vegetables, and whole grains. Eat a low salt diet not more than 2000mg per day. Please continue with the dietary changes you discussed with our cuffing machine operator/Meet with our cuffing machine operator.Minimize intake caffeine and alcoholAlcohol for men: no more than 2 drinks/day Alcohol for women: no more than 1 drink/dayPlease seek immediate medical care if you have crushing headache, vision changes, chest pain, palpitations, or shortness of breath. Related to Essential (primary) hypertension Today we discussed a ge appropriate screeningMammogram every 1-2 yearsPap smear every 5 years unless otherwise indicated I recommend a yearly flu shotTry to exercise most days of the week Try to eat a well balanced diet full of vegetables and healthy fats with plenty of calcium and vitamin D rich foodsDrink plenty of water (try to aim for 2Liters daily)If spending time outdoors, check for ticks dailyIf you drink alcohol we recommend females limit to 1 drinks/day and no more than 7 drinks per weekWhen spending time outdoors, apply sunscreen priorTry to get 7-9 hours of sleep nightly and avoid screens prior to bedtime I recommend using seat belts, helmet use, no texting while driving I recommend going to the dentist twice yearly Related to Encounter for general adult medical examination without abnormal findings Giving encouragement to exercise Related to Body mass index [BMI] 28.0-28.9, adult Dietary management e ducation, guidance, and counseling Related to Body mass index [BMI] 28.0-28.9, adult Assessments Type Assessment Date No Information Patient Care Teams Name Effective Dates (start - stop) Status Members No Information
--- OUTSIDE RECORDS SUMMARY | 2023-12-10 17:37 | XMS_ITS | Encounter Summary ---
Author Organization [facility] Address [address] [place] [address] Care Team Providers Care Machinery Cleaner Name Role Phone Pam Germain MD Unavailable [phone] Janay Duran APRN Primary Care Provider Unava ilable Reason for Visit * Reason Comments Post-OP Follow Up bilateral nipple rec on with right medial dog ear revision with Dr. Carcamo on 07/22/22. Encounter Details Date Type Department Care Team (Late st Contact Info) Description 02/10/2023 10:30 EDT Office Visit [facility] Plastic, Reconstructive & Cosmetic Surgery - [address], [address] [place] [id number] Juanito Carcamo MD [address] [phone] Surgery follow-up (Primary Dx) Social History Tobacco Use Types [...] as of this encounter Progress Notes * Juanito Carcamo MD FACS - 02/10/2023 1030 EDT Austin follows up after her 07/22/2022 bilateral nipple reconstruction as well as medial dogear revisions. She appears well. She reports no problems. She did have an episode of cellulitis in the immediate postoperative period that responded well to antibiotics but has had no troubles since then. Her nipple areolar complexes appear well located. Her implants displace easily in their pockets. Her inframammary folds are level. I could not find her abdominal port scars. She is scheduled in the upcoming months to have nipple areolar tattooing. Her next mandatory follow-up for me is 4 years from todayfor implant integrity MRI. Total time spent on for this visit in [id number] and non opin-sj-ktaz time reviewing, documenting, and obtaining, clinical information, coordinating with the care team and/or other specialists, andcounseling the patient: 40 minutes. documented in this encounter Plan of Treatment Upcoming Encounters Date Type Department Care Team (Late st Contact Info) Description 01/31/2024 13:40 EDT Office Visit [facility] Surgical Oncology - [address] [address] Maeve Morales DO [address] [facility] [address] [place] [phone] documented as of this encounter Visit Diagnoses Diagnosis Surgery follow-up- Primary Follow-up examination, following unspecified surgery documented in this encounter Care Teams Machinery Cleaner Relationship Specialty Start Date End Date Janay Duran, OIL FIELD WORKER [address] [place] [phone] PCP - General Family Medicine - Primary Care 07/22/22 Pam Germain MD [address] [place] [phone] Medical Oncology 03/22/22 documented as of this encounter
--- OUTSIDE RECORDS SUMMARY | 2023-12-10 17:37 | XMS_ITS | Encounter Summary ---
Author Organization [facility] Address [address] [place] [address] Care Team Providers Care Phytochemistry Professor Name Role Phone Pam Germain MD Unavailable [phone] Janay Duran APRN Primary Care Provider Unava ilable Reason for Referral * Radiology Services (Routine/Next Available) - Authorization Not Required Specialty Diagnoses / Procedures Referred By Contac t Referred To Contact Nuclear Medicine Diagnoses Malignant 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, estrogen receptor negative (HCC-CMS) Pain of right hip Procedures NM BONE WHOLE BODY Liat Honeycutt PA-C [address] [place] [phone] [facility] Referral ID Status Reason Start Date Expiration Date Visits Requested Visits Authorized [id number] Authorization Not Required 10/17/2022 1 1 Reason for Visit * Reason Comments Follow-up Encounter Details Date Type Department Care Team ([facility] st Contact Info) Description 10/14/2022 16:20 EDT Office Visit [facility] Hematology & Oncology - [address] [phone] Liat Honeycutt PA-C [address] [place] [phone] Malignant 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, estrogen receptor negative (HCC-CMS) (Primary Dx); Pain of right hip Social History Tobacco Use Types Packs/Day Years [...] Sign Reading Time Taken Comments Blood Pressure 118/74 10/14/2022 1620 EDT Pulse 71 10/14/2022 1620 EDT Temperature 36.1 ??C (96.9 ??F) 10/14/2022 1620 EDT Respiratory Rate 12 10/14/2022 1620 EDT Oxygen Saturation 99% 10/14/2022 1620 EDT Inhaled Oxygen Concentration - - Weight 78.9 kg (173 lb 14.4 oz) 10/14/2022 1620 EDT Height 167.4 cm (5' 5.91) 10/14/2022 1620 EDT Body Mass Index 28.15 10/14/2022 1620 EDT documented in this encounter [...] as of this encounter Progress Notes * Liat Honeycutt PA-C - 10/14/2022 1620 EDT Austin Squires is a 47 y.o.yo female presenting in clinic today for follow up of triple negative breast cancer. Chief Complaint Patient presents with ??? Follow-up Oncology History ?? 1. Early stage TNBC Breast Cancer ??? Spring Clipper noticed a mass in her left breast in early June 2020 ??? Imaging and a biopsy on 07/09/20??of a 2.1 cm mass revealed a nuclear grade 3 ER negative KS negative for HER2 negative ductal carcinoma.? Staging [...] testing: negative (9 gene panel performed through [facility] was performed) SUBJECTIVE: Austin returns for routine follow-up. She will be seeing Dr. Morales next month, so wherea bit off schedule in view of routine surveillance. She has been undergoing plastic surgery procedures, and for now has completed this, and is overall pleased with the outcome. Her only concern todayis persistent left hip pain. She indicates the lateral joint, towards the top of the joint, with deep persistent occasionally sharp pain. She notices this particularly when she is first getting up, and does improved to some degree, but does not resolve. She overall feels it has been worsening over the last month or so. Pain does not radiate. She denies weakness into her left leg. Not much relief with kwjq-cyu-nxufkty medication. She otherwise is feeling well, with no cough or dyspnea. Bowel function is fine. REVIEW OF SYSTEMS: I went through a verbal review of symptoms with the patient. Symptoms as discussed above. She has occasional neck pain, longstanding and overall not worsening and not constant. No headaches, vision changes or nausea. Remainder of system review is without acute complaints. Past medical, surgical, family and social history reviewed and updated. Lives in [facility]. Works at [employer]. She will be getting this summer, in [place]. Objective: BP 118/74 Pulse 71 Temp 36.1 ??C (96.9 ??F) (Skin) Resp 12 Ht 167.4 cm (65.91) Wt 78.9 kg (173 lb 14.4 oz) SpO2 99% BMI 28.15 kg/m?? General appearance: alert, no distress Head: Normocephalic, without obvious abnormality, atraumatic Neck: supple, symmetrical, trachea midline and no adenopathy Lymph nodes: Cervical, supraclavicular nodes normal. Lungs: clear to auscultation bilaterally Heart: regular rate and rhythm, No significant murmur Abdomen: no masses palpable, no organomegaly, soft, non-tender Neurologic: Grossly normal Mental Status: mood and affect appropriate, speech and thought process intact Extremities: extremities warm, atraumatic, no cyanosis or edema Skin: Skin color, temperature, turgor normal. No rashes or lesions LABORATORY: CBC/CMP from today were reviewed. Longstanding transaminitis with known fatty liver. ASSESSMENT: Triple negative breast cancer, now just over 2 years from diagnosis. Patient underwent neoadjuvant treatment followed by bilateral mastectomies. She had residual tumor of 2.5 cm and therefore took adjuvant capecitabine. She is up-to-date with surveillance. Today she notes persistent left hip pain which merits further evaluation. PLAN: 1. I will check in with Dr. Germain regarding preferred imaging for left hip; whether we start with x-ray or proceed to bone scan. 2. Routine surveillance with Dr. Morales as scheduled next month. 3. Next visit with Dr. Germain [address] Morales, therefore around February. 4. Follow-up as above, sooner with acute concerns or questions. I spent a total of 40 minutes on the date of this encounter meeting with the patient and reviewing documentation/coordinating care as described in the above note. No procedures were performed at the time of the visit. Liat Honeycutt PA-C 10/14/2022 16:28 documented in this encounter Plan of Treatment Upcoming Encounters Date Type Department Care Team (Late st Contact Info) Description 01/31/2024 13:40 EDT Office Visit [facility] Surgical Oncology - [address] [phone] Maeve Morales, [address] [facility], [facility], [address] [place] [phone] documented as of this encounter Results * NM BONE WHOLE BODY (11/11/2022 12:21 EDT) Anatomical Region Laterality Modality Nuclear Medicine 11/11/2022 12:4 0 EDT Impressions 11/11/2022 12:40 EDT 1. ??No scintigraphic evidence of osseous metastatic disease. 2. ??Increased radiotracer uptake involving the left maxilla, likely sequela of sinus mucosal disease, correlate accordingly. [id number] Narrative 11/11/2022 12:40 EDT NM BONE WHOLE [...] likelysequela of sinus mucosal disease, correlate accordingly. [id number] Liat Honeycutt PA-C [place] ORDERABLES documented in this encounter Visit Diagnoses Diagnosis Malignant 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, estrogen receptor negative (HCC-CMS)- Primary Pain of right hip Malignant 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, estrogen receptor negative (HCC-CMS) Pain of right hip documented in this encounter Discontinued Medications Medication Sig Discontinue Reason Start Date End Da te metformin HCl (METFORMIN ORAL) Take by mouth. 10/14/2022 documented as of this encounter Care Teams Phytochemistry Professor Relationship Specialty Start Date End Date Janay Duran, POULTRY INSEMINATOR [address] [phone] PCP - General Family Medicine - Primary Care 07/22/22 Pam Germain MD [address] [phone] Medical Oncology 03/22/22 documented as of this encounter
--- OUTSIDE RECORDS SUMMARY | 2023-12-10 17:37 | XMS_ITS | Encounter Summary ---
Author Organization [facility] Address [address] [place] [address] Care Team Providers Care Curber Name Role Phone Pam Germain MD Unavailable [phone] Janay Duran APRN Primary Care Provider Unava ilable Reason for Referral * Radiology Services (Routine/Next Available) - Authorization Not Required Specialty Diagnoses / Procedures Referred By Contac t Referred To Contact Nuclear Medicine Diagnoses Malignant 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, estrogen receptor negative (HCC-CMS) Pain of right hip Procedures NM BONE WHOLE BODY Liat Honeycutt PA-C [address] [place] [phone] [facility] Referral ID Status Reason Start Date Expiration Date Visits Requested Visits Authorized [id number] Authorization Not Required 10/17/2022 1 1 Reason for Visit * Radiology Services (Routine/Next Available) - Authorization Not Required Specialty Diagnoses / Procedures Referred By Contac t Referred To Contact Nuclear Medicine Diagnoses Malignant 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, estrogen receptor negative (HCC-CMS) Pain of right hip Procedures NM BONE WHOLE BODY Liat Honeycutt PA-C [address] [place] [phone] [facility] Referral ID Status Reason Start Date Expiration Date Visits Requested Visits Authorized [id number] Authorization Not Required 10/17/2022 1 1 Encounter Details Date Type Department Care Team (Latest Contact Info) Description 11/11/2022 8:45 EDT Hospital Encounter [facility] Radiology Nuclear [place] [address] Malignant 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, estrogen receptor negative (HCC-CMS); Pain of right hip Discharge Disposition: Home or Self Care Social [...] Info) Description 01/31/2024 13:40 EDT Office Visit [facility] Surgical Oncology - [address] [address] Maeve Morales, DO [address] [place] [address], [address] [place] [phone] documented as of this encounter Procedures Procedure [...] sequela of sinus mucosal disease, correlate accordingly. [id number] Narrative 11/11/2022 12:40 EDT NM BONE WHOLE [...] CT chest/abdomen/pelvis from 07/18/2020. CT cervical spine from2/08/2020. Technique: Approximately two hours after the IV [...] likelysequela of sinus mucosal disease, correlate accordingly. [id number] Liat Honeycutt PA-C IMSalbador NM ORDERABLES documented in this encounter Visit Diagnoses Diagnosis Malignant 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, estrogen receptor negative (HCC-CMS) Pain of right hip documented in this encounter Administered Medications Inactive Administered Medications - up to 3 most recent administrations Medication Order MAR Action Action Date Dose Rate Site technetium (Tc-99m) methylene diphosphonate (MDP) injection 18 millicurie 18 millicurie, radiopharm IV, NOW X1, 1 dose, On Klaudia 11/11/22 at 1030, Routine, Imaging Protocol Orders Given 11/11/2022 9:15 EDT 18.92 millicuries documented in this encounter Orders Medications Ordered That Juanito ht Not Have Been Administered Count Last Ordered Date First Ordered Date technetium (Tc-99m) methylen e diphosphonate (MDP) injection 18 millicurie 1 11/11/2022 documented in this encounter Care Teams Curber Relationship Specialty Start Date End Date Janay Duran APRN [address] [facility] 2 [place] [address] PCP - General Family Medicine - Primary Care 07/22/22 Pam Germain MD [address] [facility] 2 [place] [address] Medical Oncology 03/22/22 documented as of this encounter
--- OUTSIDE RECORDS SUMMARY | 2023-12-10 17:37 | XMS_ITS | Data Portability ---
Author Organization [facility] [place] [address] Assessment No assessment recorded. Plan of Treatment Reminders Order Date Submit Date Provider Last Modified By Organization Details Last Modified Time Details Appointments None recorded. Lab influenza virus A + B + SARS-CoV-2 (COVID19) Ag panel, rapid IA, upper respiratory specimen [address], [address] [place] [address], [address], [place], [address], 4 19:28:30 SARS CoV 2 RNA (COVID-19), , etcher photoengraving-PCR, respiratory specimen 2023 024 [facility] (Registration ), [address] [place] [address] [place], [address], 4 09:13:54 Referral None recorded. Procedures None recorded. Surgeries None recorded. Imaging XR, chest, 2 view 2023 [facility] (Radiology), [address] [place] [address] [place], [address], 4 02:49:50 Medication Orders albuterol sulfate HFA 90 mcg/actuati on aerosol inhaler 2023 024 [facility], [address] [place], [address], 4 19:41:30 Patient TargetsNo targets recorded. Patient Instructions Encounter Date Encounter Id Patient Instructions Last Modified By Organization Details Last Modified Time 05/19/2023 [id number] 1. Your Rapid COVID and flu test are negative here today. COVID PCR sent for confirmatory measures will be back either later today or tomorrow. These results will be communicated as soon as they become available. 2. X-rays have been ordered and will take place to the hospital tonight. I will not get results back before we closed. I will communicate them to you tomorrow along with your COVID result. 3. I have sent prescription for an albuterol inhaler and spacer to be used as needed during times of coughing fits, shortness of breath or wheeze. [email or web address] Not available 05/19/2023 19:42:03 Reason for Referral None Reported. Results Created Date Observation Date Name Description Value Unit Range Abnormal Flag LastModifiedBy Organization Detail LastModifiedTime 05/19/19 24 05/19/2023 COVID -19 PCR ([facility] ) source Nasal/ Nares Not Available [facility] (Registration ) [address] [place] [address] [place], [address], 05/19/2023 21:52:00 05/19/19 24 05/19/2023 COVID -19 PCR ([facility] ) covid-19 PCR Negati ve negati ve Not Available [facility] (Registration ) [address] [place] [address] [place], [address], 05/19/2023 21:52:00 05/19/19 24 05/19/2023 influ jared virus A + B + SARS- CoV-2 (COVI D19) Ag panel , rapid IA, upper respi rator y speci men Influenza A negati ve Not Available [address], [place], [address], 05/19/2023 18:44:10 05/19/19 24 05/19/2023 influ jared virus A + B + SARS- CoV-2 (COVI D19) Ag panel , rapid IA, upper respi rator y speci men Influenza B negati ve Not Available [address], [place], [address], 05/19/2023 18:44:10 05/19/19 24 05/19/2023 influ jared virus A + B + SARS- CoV-2 (COVI D19) Ag panel , rapid IA, upper respi rator y speci men SARS-COV-2 negati ve Not Available [address], [place], [address], 05/19/2023 18:44:10 05/19/19 24 05/19/2023 XR, chest , 2 view No observ ation record ed. [email or web address] [facility] [id number], 05/20/2023 09:18:43 05/20/19 24 05/20/2023 XR, chest , 2 view Patien t Name: Niko Nino Unit #: [id number] Loc: DI Orderi ng Provid er: Mary Jo Giordano Accoun t #: [id number] Status : REG CLI Primar y Care Provid er: Unknow n,Unkn own Date of Exam: 09/06 Sex: F Admiss ion Date: : 1975 Age: 47 Exam(s ) XR CHEST 2V PA LATERA L EXAM: XR CHEST 2V PA LATERA L CLINIC AL HISTOR Y: COUGH TECHNI QUE: 2D digita l imagin g was perfor med. COMPAR MARIVEL: No exams were availa ble for compar marivel FINDIN GS: HEART: Normal size. Aorta: Not dilate d. PULMON ALANA VASCUL ATURE: Normal . LUNGS: Clear. PLEURA L SPACE: No pleura l effusi on or pneumo thorax . BONE:U nremar kable for age. Soft tissue s: Anteri or surgic al clips. IMPRES DALI: No acute abnorm ality. DATA REPOSI TORY: RADIAT ION DOSE DELIVE RED: Ordere d By: Mary Jo Giordaon CC: ------ ------ ------ ------ ------ ------ ------ ------ ------ ------ ------ ------ - Dictat ed By: Juan A Daniel 853 Transc ribed By: Venita Garrido 853 This is privil eged, confid ential inform ation intend ed only for the provid er named. Any use or distri bution by any person other than this provid er is strict ly prohib ited. If you receiv e this report in error, please notify us immedi katherinely at [phone] and return the origin al report to us at the addres s above. Thank- you. [email or web address] [facility] (Radiology) [address] [place] [address] , [place], [address], 05/20/2023 10:17:09 05/20/19 24 05/19/2023 XR, chest , 2 view No observ ation record ed. [email or web address] [facility] (Radiology) [address] [place] [address] , [place], [address], 05/20/2023 11:21:48 Result Notes None recorded. Problems Name Status Onset Date Resolution Date Notes Pro vider Name and Address Organization Details Recorded Time Cough Active 05/20/[address], [place], [address], [facility], [facility] 05/20/2023 09:59:04 Problem Notes None recorded. Procedures Surgical History Date Name Laterality Status Provider Name and Address Organization Details Recorded Time Nebulizer tx completed [address], [place], [address], [facility] 05/20/2023 11:13:37 Imaging Results Imaging Date Name Status LastModified by Organiz ation Details LastModified Time 05/19/2023 XR, chest, 2 view completed [email or web address] [facility] [id number], 05/20/2023 09:18:43 05/20/2023 XR, chest, 2 view completed [email or web address] [facility] (Radiology) [address] [place], [address], 05/20/2023 10:17:09 05/19/2023 XR, chest, 2 view completed [email or web address] [facility] (Radiology) [facility] [place], [address], 05/20/2023 11:21:48 Procedure Notes None recorded. Medical Equipment None Reported. Allergies No known drug allergies Medications Name Sig Start Date Stop Date Status Note LastModified by Organization Details LastModified Time prednisone 20 mg tablet Take 2 tablets every day by oral route in the morning for 5 days. 2023 active Not Available Not Available Not Avai lable albuterol sulfate HFA 90 mcg/actuatio n aerosol inhaler Inhale 2 puffs every 4 hours by inhalation route for 14 days. 2023 active Not Available Not Available Not Avai lable trazodone active Not Available Not Magali ilable Not Available Lexapro active Not Available Not Avail able Not Available Ozempic active Not Available Not Avail able Not Available Vitals Date Recorded Body height Body mass index (BMI) Body weight Respiratory rate Body temperature Oxygen saturation Oxygen saturation in Arterial blood by Pulse oximetry Heart rate Systolic blood pressure Diastolic blood pressure Provider Name and Address Organization Details Last Updated DateTime 167.64 cm 26.6 kg/m2 10587.7 4 g 16 /min 98.2 [degF] 98 % 98 % 94 /min 110 mm[Hg] 79 mm[Hg] Melissa Salcedo MA [facility] 18:23:01 Social History Question Answer Notes LastModified by Organizat ion Details LastModified Time Tobacco Smoking Status Current Every Day Smoker Melissa Salcedo MA null, [facility] 05/19/2023 18:21:40 What Was The Date Of Your Most Recent Tobacco Screening? 05/19/2023 Information not available 05/19/2023 Has Tobacco Cessation Counseling Been Provided? Yes Information not available 05/19/2023 Sex: Female Functional Status None recorded. Mental Status None recorded. Family History Nothing Reported. Medical History No medical history recorded. Gynecological HistoryNo gynecological history recorded. Obstetrics History GPAL:G 0 P 0 0 0 0 Immunizations Vaccine Type Date Status Provider Name and Address Organization Details Recorded Time COVID-19, mRNA, LNP-S, PF, 30 mcg/0.3 mL dose 07/11/2020 completed Mila Briggs RN null, [facility] 05/23/2023 10:13:05 COVID-19, mRNA, LNP-S, PF, 30 mcg/0.3 mL dose 08/08/2020 completed RADHA Aguirre, [facility] 05/23/2023 10:13:09 influenza, unspecified formulation 03/15/2023 completed RADHA Aguirre, [facility] 05/23/2023 10:13:20 pneumococcal polysaccharide PPV23 01/29/2021 completed RADHA Aguirre, [facility] 05/23/2023 10:13:39 Past Encounters Encounter ID Performer Location Encounter Start Date Encounter Closed Date Diagnosis/Indication Diagnosis SNOMED-CT Code [id number] MARY JO GIORDANO PA-C [address],[facility] [place] [address] 05/19/2023 17:07:19 05/19/2023 19:54:16 Cough [id number] Health Concerns Section Related Observation LastModified by Organization Detai ls LastModified Time None Recorded Concern Status LastModified by Organization Details LastModified Time None Recorded Advance Directives Directive None Recorded Payers Encounter Date Sequence Insurance Name Policy Number Policy Raymond Covered Member ID Raymond Member ID Guarantor Name 05/19/2023 1 [facility] (MEDICAID) Austin Zulema Veras [id number] Austin Zulema Veras Notes Date Note Type Note Provider Name and Address Organization Details Recorded Time 05/19/2023 text/html HPI Notes: Austin is a 47-year-old female who presents with upper respiratory infection that began this past Tuesday, today is now . She has had headache, coughing fits, wheezing, chest feels rather congested. She feels like she should have a productive cough but has been rather dry. She has not had fevers. Some nausea no vomiting. Normal bowel. She took a Sudafed today which seemed to help dry up the lungs a little bit as well as Delsym. She does not typically have problems with wheezing. She has no history of asthma. She had COVID for the first time last August. She is 2 years status post breast cancer. [address], [place], [address], [facility]. 05/20/2023 11:15:42 OBGyn Episode No OBEpisode recorded.
--- OUTSIDE RECORDS SUMMARY | 2023-12-10 17:37 | XMS_ITS | Encounter Summary ---
Author Organization [facility] Address [address] [place] [address] Care Team Providers Care Battery Plate Assembler Name Role Phone Pam Germain MD Unavailable [phone] Janay Duran PROMOTION PRODUCER Primary Care Provider Robin vines Encounter Details Date Type Department Care Team (Late st Contact Info) Description 06/13/2023 Lab Requisition [facility] Pathology & Laboratory Medicine - [facility] [address] [place] [address] Janay Duran APRN Encounter for screening for malignant neoplasm of cervix Social History Tobacco Use Types Packs/Day Years [...] Info) Description 01/31/2024 13:40 EDT Office Visit [facility] Surgical Oncology - [address] [id number] Maeve Morales, [address], [address] [place] [phone] documented as of this encounter Procedures Procedure Name Priority Date/Time Associated Diagnosis Comments PAP TEST Today 06/13/2023 12:36 EST Encounter for screening for malignant neoplasm of cervix HPV GENOTYPES 16 AND 18/45 Today 06/13/2023 12:36 EST Encounter for screening for malignant neoplasm of cervix HPV DNA DETECTION WITH GENOTYPING, PCR Today 06/13/2023 12:36 EST Encounter for screening for malignant neoplasm of cervix documented in this encounter Results * HPV GENOTYPES 16 AND 18/45 (06/13/2023 12:36 EST) HPV High Risk type 16, PCR Negative Negative 06/28/2023 15:43 EST [facility] HPV18/45 RNA (HPV18/45) Negative Negative 06/28/2023 15:43 EST [facility] Pap Test CERVIX UTERI STRUCTURE / Unknown 06/13/2023 12:36 EST 06/23/2023 13:46 EST Janay Duran APRN MICROBIOLOGY - GENER AL ORDERABLES Performing Organization Address [facility] Co de Phone Number [facility] [address] [place] [address] * (ABNORMAL) HUMAN PAPILLOMAVIRUS (HPV) DETECTION-HIGH RISK TYPES (06/13/2023 12:36 EST) HPV other High Risk types, PCR Positive( A) Negative 06/28/2023 15:43 EST [facility] Comment:E6 OR E7 mRNA from o ne or more types of HPV types 16,18,31,33,35,39,45,51,52,56,58,59,66, and 68 is detected by foot miter operator mediated amplification. High and intermediate risk HPV types are associated with most squamous intraepithelial lesions and cervical cancers. Pap Test CERVIX UTERI STRUCTURE / Unknown 06/13/2023 12:36 EST 06/23/2023 13:46 EST Janay Duran APRN MICROBIOLOGY - GENER AL ORDERABLES Performing Organization Address [facility] Co de Phone Number [facility] [address] [place] [address] * PAP TEST (06/13/2023 12:36 EST) Specimens A. Cervix and/or Endocervix , ThinPrep Imaging System with Manual Evaluation 06/28/2023 15:43 EST [facility] Specimen Adequacy Satisfactory for Evaluation - transformation zone component present 06/28/2023 15:43 EST [facility] General Categorization Negative for intraepithelial lesion or malignancy 06/28/2023 15:43 EST [facility] Attestation . 06/28/2023 15:43 EST [facility] at 1543 Clinical History Clinical History, Signs, Symptoms, Chief Complaint, Pertaining to This Order: SEE BELOW Last Menstral Period: POST MENOPAUSAL 06/28/2023 15:43 EST [facility] HPV The result for the Human Papillomavirus (HPV) Detection-High Risk Types is Positive . E6 OR E7 mRNA from one or more types of HPV types 16,18,31,33,35,39 ,45,51,52,56,58,5 9,66, and 68 is detected by foot miter operator mediated amplification. High and intermediate risk HPV types are associated with most squamous intraepithelial lesions and cervical cancers. Testing was performed on specimen [id number] and was resulted on 06/24/2023 1521 EST by [facility], LAB INSTRUMENT RESULTS IN 06/28/2023 15:43 EST [facility] Genotyping 16 & 18/45 The results for the HPV Genotypes 16 and 18/45 are Negative for the HPV16 RNA and Negative for the HPV18/45 RNA (HPV18/45). Testing was performed on specimen [id number] and was resulted on 06/28/2023 1543 EST by [facility], LAB INSTRUMENT RESULTS IN 06/28/2023 15:43 EST [facility] Performing Lab [facility] 06/28/2023 15:43 EST [facility] Scanned Images 06/28/2023 15:43 EST [facility] Pap Test CERVIX UTERI STRUCTURE / Unknown 06/13/2023 12:36 EST 06/14/2023 11:05 EST Janay Duran APRN PATHOLOGY ORDERABLES [facility] [address] [place] [address] documented in this encounter Visit Diagnoses Diagnosis Encounter for screening for malignant neoplasm of cervix Screening for malignant neoplasm of the cervix documented in this encounter Care Teams Battery Plate Assembler Relationship Specialty Start Date End Date Janay Duran APRN [address] [address] PCP - General Family Medicine - Primary Care 07/22/22 Pam Germain MD [address] [address] Medical Oncology 03/22/22 documented as of this encounter
--- OUTSIDE RECORDS SUMMARY | 2023-12-10 17:37 | XMS_ITS | Clinical Summary ---
Author Organization [facility] Address [address] [place] [address] Care Team Providers Care Stand In Name Role Phone Pam Germain MD Unavailable [phone] Janay Duran APRN Primary Care Provider Robin ilable Allergies Active Allergy Reactions Criticality Noted Date Comments Ondansetron Other (See Comments) 12/19/2020 Dose to be limited to under 16mg daily while on Lexapro as EKG showed QTC as 0.4 Oxycodone Other (See Comments) 06/24/2020 Made her hyper Wound Dressings 01/11/2022 Sorbaview (pt states port-a-cath dressing with white border causes skin issues). Medications Medication Sig Dispensed Refills Start Date End Date Status escitalopram oxalate (LEXAPRO) 20 mg tablet TAKE 1 & 1/2 TABLET BY MOUTH EVERY DAY FOR 90 DAYS 10/25/2022 Active traZODone (DESYREL) 100 mg tablet as needed. 10/26/2022 Active meloxicam (MOBIC) 15 mg tablet Take 1 Tablet by mouth daily. 10/28/2022 Active semaglutide (OZEMPIC) 0.25 mg or 0.5 mg (2 mg/3 mL) pen injector Inject 0.5 mg into the skin once a week. 0.25 mg x4 week and then increase to 0.5 mg Active Active Problems Patient Care Coordination No te Formatting of this note migh t be different from the original. Verified ACO Medicaid trans#[id number] Bhavani Garcia 06/27/2020 14:08 2021-Verified ACO Attributed [place] Medicaid TCN:[id number] Anastacio Aaron 05/20/2021 9:55 Problem Noted Date Diagnosed Date Hepatic steatosis 03/26/2021 Hypertension 03/26/2021 History of anxiety 03/26/2021 Breast cancer in female (HCC-CMS) 12/24/2020 Malignant neoplasm of upper- inner quadrant of breast in female, estrogen receptor negative (HCC-CMS) 07/15/2020 Cancer Staging:Clinical:Stage IIB(cT2, cN0, cM0, G3, ER-, OH-, HER2-) - Signed by Maeve Morales DO on 07/15/2020 Resolved Problems Problem Noted Date Diagnosed Date Resolved Date Sepsis (HCC-CMS) 11/21/2020 11/23/2020 Fever and chills 11/21/2020 11/23/2020 Encounters Date Type Department Care Team Description 10/11/2023 Telephone [facility] Hematology & Oncology [address] [phone] Pam Germain MD Appointment Related 10/07/2023 16:20 EDT Office Visit [facility] H[facility]ology & Oncology [address] [phone] Jeremie Vazquez PA-C Malignant 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, estrogen receptor negative (HCC-CMS) (Primary Dx); Triple negative malignant neoplasm of breast (HCC-CMS) from Last 3 Months Immunizations Name Administration Dates Next Due Covid-19 mRNA Vaccine (PFIZE R COVID-19) PF 0.3 ml IM (12 yrs+) 08/29/2020,08/08/2020 Surgical History Surgery Date Site/Laterality Comments CHOLECYSTECTOMY OTHER SURGICAL HISTORY 1998, 2011 epidural with childbirth BLADDER REPAIR 05/16/2021 - 05/15/2022 MASTECTOMY Bilateral BREAST SURGERY expanders, and inplants Medical History Medical History Date Comments Urgency of urination stress inc. History of general anesthesia No enedina 07/19/2022: no complications Exercise involving walking Noted 07/19/2022: can climb 2 FOS w/ no SOB Exercise involving housework History of kidney stones Noted 0 07/19/2022: hx of, no issues now Head trauma 06/19/20 fell on i ce. No loss of consciosness Activity, other involving cardiorespiratory exercise Noted 07/19/2022: stretchin g exercises and weights Bladder incontinence Cancer ([facility]) Noted 3: breast History of chemotherapy Diabetes mellitus, type 2 ([facility]) Noted 07/19/2022: not currently on meds, last A1c 6.4, f/u appointment in 3 months TMJ syndrome Anxiety Noted 07/19/2022 : controlled w/ meds Back pain Noted 07/19/2022 : degenerative disc disease Family History Medical History Relation Comments Lung Cancer Mother Relation Status Comments Mother Social History Tobacco Use Types Packs/Day Years [...] 9:10 EDT Sexual Orientation Not on file Obstetrics History Para Term AB IAB SAB Ectopic Multiple Livin g Live Births 3 3 Date Outcome GA Total Labor Labor/2nd/3rd Weight Sex Type Anes PTL Emelia A1 A5 Name Clin Para Para Para Last Filed Vital Signs Vital Sign Reading Time Taken Comments Blood Pressure 110/69 10/07/2023 1603 EDT Pulse 89 10/07/2023 1603 EDT Temperature 35.9 ??C (96.6 ??F) 10/07/2023 1603 EDT Respiratory Rate 16 10/07/2023 1603 EDT Oxygen Saturation 98% 10/07/2023 1603 EDT Inhaled Oxygen Concentration - - Weight 71.7 kg (158 lb 1.6 oz) 10/07/2023 1603 E DT Height 168.2 cm (5' 6.22) 10/07/2023 1603 EDT Body Mass Index 25.35 10/07/2023 1603 EDT Plan of Treatment Upcoming Encounters Date Type Department Care Team (Late st Contact Info) Description 01/31/2024 13:40 EDT Office Visit [facility] Surgical Oncology - [address] [phone] Maeve Morales DO 111 [facility], [facility], [address] [place] [address] Health Maintenance Due Date Last Done Comments Pneumococcal Immunization (1 of 2 - PCV) 09/10/1981 Hepatitis B Vaccine (1 of 3 - 19+ 3-dose series) 09/10/1994 COVID-19 Vaccine ( - 2022- season) 2023, 08/08/2020 Hepatitis C Screen Completed 02/25/2021 Medical Devices Implanted Type Area Composition Molder Device Identifier Shelf Expiration Date Model / Serial / Lot Implant Breast Silicone Round Smooth 755cc Memorygel [id number] - [id number] Implanted:Qty : 1 on 01/11/2022 by Juanito Carcamo MD FACS at [facility] Breast Implant Right: Breast [employer] [id number] 02/12/2023 [id number] / [id number] / [id number] Implant Breast Silicone Round Smooth 755cc Memorygel [id number] - [id number] Implanted:Qty : 1 on 01/11/2022 by Juanito Carcamo MD FACS at [facility] Breast Implant Left: Breast [employer] [id number] 02/26/2026 [id number] / [id number] / [id number] Tissue 132cm 9.6 X 19.3cm Alloderm Contour Matrix Dermal Rtm Medium Thick - [id number] Implanted:Qty : 1 on 12/24/2020 by Juanito Carcamo MD FACS at [facility] Tissue Right: Breast [employer] [id number] 09/12/2022 [id number] / / [id number] Tissue 320cm Alloderm 16 X 20cm Perforated Med Thickness - [id number] Implanted:Qty : 1 on 12/24/2020 by Juanito Carcamo MD FACS at [facility] Tissue Right: Breast [employer] [id number] 05/15/2022 [id number] / / [id number] Tissue 132cm 9.6 X 19.3cm Alloderm Contour Matrix Dermal Rtm Medium Thick - [id number] Implanted:Qty : 1 on 12/24/2020 by Juanito Carcamo MD FACS at [facility] Tissue Left: Breast [employer] [id number] 09/12/2022 [id number] / / [id number] Tissue 320cm Alloderm 16 X 20cm Perforated Med Thickness - [id number] Implanted:Qty : 1 on 12/24/2020 by Juanito Carcamo MD FACS at [facility] Tissue Left: Breast [employer] [id number] 05/15/2022 [id number] / / [id number] Port Infusion Low Profile 1 Lumen 8fr Cath Groshong [id number] - [id number] Implanted:Qty : 1 on 08/08/[address] [facility] Right: Chest Wall [employer] [id number] 05/15/2021 [id number] / / [id number] Explanted Type Area Composition Molder Device Identifier Shelf Expiration Date Model / Serial / Lot Medical Billing Service Tissue Breast 750cc Artoura Plus Smooth Surface High Profile - [id number] Implanted:Qty : 1 on 12/24/2020 by Juanito Carcamo MD FACS at [facility] Explanted:Qty : 1 on 06/18/2021 by Juanito Carcamo MD FACS at [facility] Medical Billing Service Right: Breast [employer] 06/08/2024 [facility] / [id number] / [id number] Medical Billing Service Tissue Breast 750cc Artoura Plus Smooth Surface High Profile - [id number] Implanted:Qty : 1 on 12/24/2020 by Juanito Carcamo MD FACS at [facility] Explanted:Qty : 1 on 01/11/2022 by Juanito Carcamo MD FACS at [facility] Medical Billing Service Left: Breast [employer] 06/08/2024 [facility] / [id number] Medical Billing Service Tissue Breast 750cc Artoura Plus Smooth Surface High Profile - [id number] Implanted:Qty : 1 on 06/18/2021 by Juanito Carcamo MD FACS at [facility] Explanted:Qty : 1 on 01/11/2022 by Juanito Carcamo MD FACS at [facility] Medical Billing Service Right: Breast [employer] 11/23/2024 [facility] / [id number] Procedures Procedure Name Priority Date/Time Associated Diagnosis Comments HEPATITIS C AB W REFLEX TO HCV RNA BY PCR Routine 02/25/2021 13:55 EDT LFTs abnormal from Last 3 Months or Most Recently Relevant to Health Maintenance Results * HEPATITIS C AB W REFLEX TO HCV RNA BY PCR (02/25/2021 13:55 EDT) Hep C Antibody Negative Negative 02/26/2021 11:03 EDT [facility] Blood VENOUS BLOOD / Unknown Venipuncture / Unknown 02/25/2021 13:55 EDT 02/25/2021 14:13 EDT Hernando Diaz MD PhD CHEMISTRY & BLO OD GAS ORDERABLES [facility] [address] [place] [address] from Last 3 Months or Most Recently Relevant to Health Maintenance Advance Directives For more information, please contact: [phone] * Full Code (Latest Code Status on File) Date Activated Date Inactivated Comments 12/24/2020 17:02 12/25/2020 16:09 Question Answer Comments Reason for decision includes: Full code consistent with overall plan of care Who participated in the discussion? Not Discusse d * Full Code Date Activated Date Inactivated Comments 11/21/2020 23:44 11/23/2020 13:45 Question Answer Comments Reason for decision includes: Full code consistent with overall plan of care Who participated in the discussion? Patient Care Teams Stand In Relationship Specialty Start Date End Date Janay Duran APRN 111 [facility] 2 [place] [address] PCP - General Family Medicine - Primary Care 07/22/22 Pam Germain MD 111 [facility] 2 [place] [address] Medical Oncology 03/22/22
--- OUTSIDE RECORDS SUMMARY | 2023-12-10 17:37 | XMS_ITS | Encounter Summary ---
Author Organization [facility] Address [address] [place] [address] Care Team Providers Care Instructor Pilot Name Role Phone Pam Germain MD Unavailable [phone] Janay Duran APRN Primary Care Provider Unava ilable Reason for Visit * Reason Comments Procedure Bilateral 3D nipple tattoo Encounter Details Date Type Department Care Team (Latest Contact Info) Description 03/10/2023 13:00 EDT Procedure visit [facility] Plastic, Reconstructive & Cosmetic Surgery - [address], [address] [place] [address] Oksana Wilkins PA-C [address] [place] [address] [address] [place] [address] S/P breast reconstruction (Primary Dx) Social [...] No 12/24/2020 documented as of this encounter Patient Instructions * Patient Instructions* Batsheva Montero MA - 03/10/2023 13:00 EDT Instructions for the Care of Your Areolar Tattoo May shower on day 1, using shower guards applied over tattoo bandage On day 3, remove bandage and apply bacitracin The first time you shower without cover, you may notice some pigment washing off; this is normal. May cover with Telfa until no longer weepy (generally 3-4 days) or leave open to air Return to the office for follow-up in 3 weeks Call our office at [phone] with any concerns documented in this encounter Progress Notes * Batsheva Montero MA - 03/10/2023 1300 EDT Pre-procedure time out completed using two unique patient identifiers. Correct procedure confirmed and surgical site marked. All team members participated in pause and concurred. When applicable: thefire risk assessment was reviewed. * Oksana Wilkins PA-C - 03/10/2023 1300 EDT SUBJECTIVE: Austin presents to the plastic surgery clinic for 3D nipple tattoo today. She is doing well. There is no desire for further breast surgery at this time. She looks forward to the final stage of her reconstructive plan. No acute health concerns are reported today. OBJECTIVE: On examination, she is in no distress. Her bilateral breast reconstruction is implant based. Breasts: breasts appear normal, no suspicious changes. Skin devoid of rash and infection. PLAN: Today we proceeded with the 3 D nipple areolar tattoo as previously planned. PROCEDURE: In standing position the 42 mm areola was placed on the reconstructed breast bilaterally. The location of the areola was approved by the patient before beginning the tattoo process. The breast skin was cleansed with clear chlorhexidine. Local anesthetic was used (3 cc). A mix of Perma Blend pigments x 4 were created for the patient. A 7 mag, 5 shader, 3 liner and 1 liner needle were used. Once completed, the sites were cleansed with an alcohol pad. Sites dressed with bacitracin and Tegaderm. This is to remain in place for 48 hrs before removal. Pt was counseled that the Tegaderm will collect ink, serum and/or blood while it remains in place. The patient may shower with a shower shield in place. Tegaderm to be removed after 48 hours. Oksana Wilkins PA-C 03/10/2023 14:54 documented in this encounter Plan of Treatment Upcoming Encounters Date Type Department Care Team (Late st Contact Info) Description 01/31/2024 13:40 EDT Office Visit [facility] Surgical Oncology - [address] [phone] Maeve Morales DO 111 [facility], [facility], [address] [place] [address] documented as of this encounter Visit Diagnoses Diagnosis S/P breast reconstruction- Primary Breast replaced by other means documented in this encounter Care Teams Instructor Pilot Relationship Specialty Start Date End Date Janay Duran APRN [address] [address] PCP - General Family Medicine - Primary Care 07/22/22 Pam Germain MD [address] [address] Medical Oncology 03/22/22 documented as of this encounter
--- OUTSIDE RECORDS SUMMARY | 2023-12-10 17:37 | XMS_ITS | Encounter Summary ---
Author Organization [facility] Address [address] [place] [address] Care Team Providers Care Orthopedic Surgeon Name Role Phone Pam Germain MD Unavailable [phone] Janay Duran APRN Primary Care Provider Unava ilable Reason for Referral * Radiology Services (Routine/Next Available) - Authorization Not Required Specialty Diagnoses / Procedures Referred By Contac t Referred To Contact Diagnoses Abnormal results of liver function studies Procedures US ABDOMEN LIMITED Janay Duran APRN [address] [place] [address] [facility] Referral ID Status Reason Start Date Expiration Date Visits Requested Visits Authorized [id number] Authorization Not Required 06/27/2023 1 1 Reason for Visit * Radiology Services (Routine/Next Available) - Authorization Not Required Specialty Diagnoses / Procedures Referred By Contac t Referred To Contact Diagnoses Abnormal results of liver function studies Procedures US ABDOMEN LIMITED Janay Duran APRN [address] [place] [address] [facility] Referral ID Status Reason Start Date Expiration Date Visits Requested Visits Authorized [id number] Authorization Not Required 06/27/2023 1 1 Encounter Details Date Type Department Care Team (Latest Contact Info) Description 08/12/2023 13:28 EDT - 08/12/2023 23:59 EDT Hospital Encounter [facility] [address] [place] [address] Abnormal results of liver function studies Discharge Disposition: Home or Self Care Social History Tobacco Use Types Packs/Day Years Used Date Smoking Tobacco: Former Cigarettes 1 30 0 09/17/1990 - 09/17/2020 Smokeless Tobacco: Never Comments:Smoked on and off w denisha smoked- started as a teen Alcohol Use [...] Take 1 Tablet by mouth daily. 10/28/2022 semaglutide (OZEMPIC) 0.25 mg or 0.5 mg (2 mg/3 mL) pen injector Inject 0.5 mg into the skin once a week. 0.25 mg x4 week and then increase to 0.5 mg traZODone (DESYREL) 100 mg tablet as needed. 10/26/2022 documented as of this encounter Discharge Disposition Disposition Code Departure Means Destination Home or Self Care documented in this encounter Plan of Treatment Upcoming Encounters Date Type Department Care Team (Late st Contact Info) Description 01/31/2024 13:40 EDT Office Visit [facility] Surgical Oncology - [address] [phone] Maeve Morales, DO 111 [facility], [address] [place] [address] documented as of this encounter Procedures Procedure Name Priority Date/Time Associated Diagnosis Comments US ABDOMEN LIMITED Routine 08/12/2023 14 :23 EDT Abnormal results of liver function studies documented in this encounter Results * US ABDOMEN LIMITED (08/12/2023 14:23 EDT) Anatomical Region Laterality Modality Abdomen, Body Ultrasound 08/12/2023 14:5 6 EDT Impressions 08/12/2023 14:56 EDT 1. ??Hepatic steatosis and/or fibrosis. 2. ??Echogenic 0.5 cm focus in the right lower pole could represent echogenic renal sinus fat versus nonobstructing calculus. I have personally reviewed the images and the above interpretation and agree with the findings. [id number] Narrative 08/12/2023 14:56 EDT US ABDOMEN LIMITED ??08/12/2023 1:45 PM SIGNS AND SYMPTOMS/COMMENTS: Elevated transaminases;R94.5:Abnormal results of liver function studies COMPARISON: CT angio abdomen 08/18/2021 TECHNIQUE: Grayscale and Doppler ultrasound evaluation of the right upper quadrant of the abdomen was performed. FINDINGS: PANCREAS: The visualized portion of the pancreas is within normal limits. LIVER: The liver measures 14.3 cm in length, which is normal. Diffusely increased echogenicity of the liver parenchyma. No focal hepatic lesion. The contour of the liver is smooth. Blood flow in the main portal vein is in the normal direction. GALLBLADDER: Surgically absent. BILE DUCTS: The common duct measures 4 mm in diameter at the lauren hepatis, which is normal. No intra para biliary ductal dilatation. RIGHT KIDNEY: The right kidney measures 11.2 cm in length. Nonshadowing echogenic focus in the lower pole of the right kidney measuring 0.5 cm. No hydronephrosis. PROXIMAL ABDOMINAL AORTA / IVC: Normal. Bladder: The prevoid estimated volume is 20.3 mL. No polypoid mass. Procedure Note Khalif Ca MD - 08/12/2023 US ABDOMEN LIMITED 08/12/2023 1:45 PM SIGNS AND SYMPTOMS/COMMENTS: Elevated transaminases;R94.5:Abnormal resultsof liver function studies COMPARISON: CT angio abdomen 08/18/2021 TECHNIQUE: Grayscale and Doppler ultrasound evaluation of the right upperquadrant of the abdomen was performed. FINDINGS: PANCREAS: The visualized portion of the pancreas is within normallimits. LIVER: The liver measures 14.3 cm in length, which is normal. Diffuselyincreased echogenicity of the liver parenchyma. No focal hepatic lesion.The contour of the liver is smooth. Blood flow in the main portal vein isin the normal direction. GALLBLADDER: Surgically absent. BILE DUCTS: The common duct measures 4 mm in diameter at the portahepatis, which is normal. No intra para biliary ductal dilatation. RIGHT KIDNEY: The right kidney measures 11.2 cm in length. Nonshadowingechogenic focus in the lower pole of the right kidney measuring 0.5 cm. Nohydronephrosis. PROXIMAL ABDOMINAL AORTA / IVC: Normal. Bladder: The prevoid estimated volume is 20.3 mL. No polypoid mass. IMPRESSION 1. Hepatic steatosis and/or fibrosis. 2. Echogenic 0.5 cm focus in the right lower pole could representechogenic renal sinus fat versus nonobstructing calculus. I have personally reviewed the images and the above interpretation andagree with the findings. [id number] Janay WEBB US ORDERABLES documented in this encounter Visit Diagnoses Diagnosis Abnormal results of liver function studies Nonspecific abnormal results of liver function study documented in this encounter Care Teams Orthopedic Surgeon Relationship Specialty Start Date End Date Janay Duran APRN [address] [place] [address] [address] [place] [address] PCP - General Family Medicine - Primary Care 07/22/22 Pam Germain MD 111 [facility] 2 [place] [phone] Medical Oncology 03/22/22 documented as of this encounter
--- OUTSIDE RECORDS SUMMARY | 2023-12-10 17:37 | XMS_ITS | Encounter Summary ---
Author Organization [facility] Address [address] [place] [address] Care Team Providers Care Carrot Tier Name Role Phone Pam Germain MD Unavailable [phone] Janay Duran APRN Primary Care Provider Unava ilable Reason for Visit * Reason Onset Date Comments Appointment Related 12/07/2022 Encounter Details Date Type Department Care Team (Late st Contact Info) Description 12/07/2022 Telephone [facility] Plastic, Reconstructive & Cosmetic Surgery - [address], [address] [place] [address] Juanito Carcamo MD [address] [address] Appointment Related Social History Tobacco Use Types [...] encounter Miscellaneous Notes * Telephone Encounter - Franci Cordoba - 12/07/2022 1123 EDT called patient to change her 12/[address] Carcamo has surgery She will call us back on when she has a better idea of her schedule and will make another appointment I canceled her appointment on 12/09 now that she is aware of his unavailability documented in this encounter Plan of Treatment Upcoming Encounters Date Type Department Care Team (Late st Contact Info) Description 01/31/2024 13:40 EDT Office Visit [facility] Surgical Oncology - [facility] [address] [place], [place] [phone] Maeve Morales DO [address] [address] documented as of this encounter Visit Diagnoses Not on filedocumented in this encounter Care Teams Carrot Tier Relationship Specialty Start Date End Date Janay Duran APRN [address] [place] [phone] PCP - General Family Medicine - Primary Care 07/22/22 Pam Germain MD 111 [facility] 2 [place] [phone] Medical Oncology 03/22/22 documented as of this encounter
--- OUTSIDE RECORDS SUMMARY | 2023-12-10 17:37 | XMS_ITS | Encounter Summary ---
Author Organization [facility] Address [address] [place] [address] Care Team Providers Care Bridge Expert Name Role Phone Pam Germain MD Unavailable [phone] Janay Duran APRN Primary Care Provider Unava ilable Reason for Visit * Reason Comments Follow-up Encounter Details Date Type Department Care Team (Late st Contact Info) Description 10/07/2023 16:20 EDT Office Visit [facility] Hematology & Oncology - [address] [phone] Jeremie Vazquez, PACalinC [address] [place] [address], Level [address] [place] [phone] Malignant neoplasm of upper-inner quadrant of left [...] Body Mass Index 25.35 10/07/2023 1603 EDT documented in this encounter Functional Status [...] Yes 10/07/2023 documented as of this encounter Progress Notes * Jeremie Vazquez PA-C - 10/07/2023 1620 EDT [facility] [place] Medical Oncology PROGRESS / FOLLOWUP NOTE - 10/06/23 Attending Physician: Dr. Germain Assessment & Plan 48 y.o. female with history of triple negative breast cancer diagnosed in 2020, s/p neoadjuvant chemotherapy with carbo/taxol followed by AC. She went on to have bilateral mastectomies, which revealed 2.5 cm of residual disease. She thus was treated with 8 cycles of adjuvant capecitabine. She is doing well at this time without new concerns and s/sx concerning for recurrent disease. She will see Dr. Morales back in January. Continue routine follow up with medical and surgical oncology. RTC for follow up in 1 year or sooner should she have any questions or concerns. Jeremie Vazquez PA-C Hematology/Oncology I spent a total of 30 minutes on the date of this encounter meeting with the patient and reviewing documentation/coordinating care as described in this note. Oncology History/Problem List: 1. 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 Staging evaluation did reveal a prominent L IM lymph node Taxol/carboplatinum f/b AC, started July 22, 2020 & completed on 11/27/20 Bilateral mastectomies performed on 12/24/20 revealed 2.5 cm of a poorly differentiated ductal carcinoma. All margins were negative. 0/3 nodes were positive. Contralateral breast benign. PD-L1 testingappears to be negative. Adjuvant capecitabine started late Jan,, completed 8 cycles. Genetic testing: negative (9 gene panel performed through [employer] was performed) Interval History: Austin presents today for routine follow up for history of TNBC outlined above. She continues to do well and is without any concerns from a breast cancer perspective. Sometimes has some discomfort andnumbness from mastectomy as well as reconstruction but no other new concerns. No new pain. Patient Active Problem List Diagnosis Hepatic steatosis Hypertension History of anxiety Breast cancer in female (HCC-CMS) 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, estrogen receptor negative (HCC-CMS) Cancer Staging 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, estrogen receptor negative (HCC-CMS) Staging form: Breast, AJCC 8th Edition - Clinical: Stage IIB (cT2, cN0, cM0, G3, ER-, RI-, HER2-) - Signed by Maeve Morales DO on 07/15/2020 Review of Systems Constitutional: Negative. HENT: Negative. Eyes: Negative. Respiratory: Negative. Cardiovascular: Negative. Gastrointestinal: Negative. Genitourinary: Negative. Musculoskeletal: Negative. Skin: Negative. Neurological: Negative. Psychiatric/Behavioral: Negative. There were no vitals filed for this visit. Wt Readings from Last 3 Encounters: 03/15/23 78.4 kg (172 lb 12.8 oz) 10/14/22 78.9 kg (173 lb 14.4 oz) 08/06/22 77.1 kg (170 lb) Physical Exam Constitutional: She is oriented to person, place, and time. She appears well- developed and well-nourished. No distress. HENT: Head: Normocephalic and atraumatic. Eyes: Conjunctivae and EOM are normal. No scleral icterus. Cardiovascular: Normal rate, regular rhythm and normal heart sounds. Exam reveals no gallop and no friction rub. No murmur heard. Pulmonary/Chest: Effort normal and breath sounds normal. S/p mastectomies with reconstruction bilaterally. Well healed scars without abnormal skin changes. Musculoskeletal: General: No edema. Normal range of motion. Cervical back: Normal range of motion. Lymphadenopathy: She has no cervical adenopathy. Neurological: She is alert and oriented to person, place, and time. Skin: She is not diaphoretic. Psychiatric: She has a normal mood and affect. Her behavior is normal. Judgment and thought contentnormal. Lab Results Component Value Date WBC 6.64 03/15/2023 HGB 15.9 (H) 03/15/2023 HCT 47.1 (H) 03/15/2023 MCV 87 03/15/2023 PLT 253 03/15/2023 NEUTROABS 4.03 03/15/2023 CALCIUM 9.6 03/15/2023 CO2 26 03/15/2023 AST 55 (H) 03/15/2023 ALT 80 (H) 03/15/2023 TBIL 0.5 03/15/2023 CREATININE 0.49 (L) 03/15/2023 CALCCA 9.0 03/03/2021 ANIONGAP 11 03/15/2023 TP 8.0 03/15/2023 K 4.7 03/15/2023 ALKPHOS 143 (H) 03/15/2023 LABALBU 4.8 03/15/2023 BUN 14 03/15/2023 CALCGFR 117 03/15/2023 CL 99 03/15/2023 SERGLU 272 (H) 03/15/2023 NA 136 03/15/2023 Imaging N/a documented in this encounter Plan of Treatment Upcoming Encounters Date Type Department Care Team (Late st Contact Info) Description 01/31/2024 13:40 EDT Office Visit [facility] Surgical Oncology - [address] [phone] Maeve Morales DO [address] [phone] documented as of this encounter Visit Diagnoses Diagnosis Malignant 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, estrogen receptor negative (HCC-CMS)- Primary Triple negative malignant neoplasm of breast (HCC-CMS) documented in this encounter Care Teams Bridge Expert Relationship Specialty Start Date End Date Janay Duran, CORRECTION [employer]IE[employer] [address] [place] [phone] PCP - General Family Medicine - Primary Care 07/22/22 Pam Germain MD [address] [place] [phone] Medical Oncology 03/22/22 documented as of this encounter
--- OUTSIDE RECORDS SUMMARY | 2023-12-10 17:37 | XMS_ITS | Encounter Summary ---
Author Organization [facility] Address [address] [place] [address] Care Team Providers Care Wood Mechanist Name Role Phone Pam Germain MD Unavailable [phone] Janay Duran APRN Primary Care Provider Robin vines Encounter Details Date Type Department Care Team (Late st Contact Info) Description 10/18/2022 Orders Only [facility] Radiology - Main [place] [address] [place], [place] [phone] Promise Ramos MD [address] [place], [place] [phone] Social History Tobacco Use Types Packs/Day Years [...] Info) Description 01/31/2024 13:40 EDT Office Visit [facility] Surgical Oncology - [address] [phone] Maeve Morales DO [address] [phone] documented as of this encounter Visit Diagnoses Not on filedocumented in this encounter Care Teams Wood Mechanist Relationship Specialty Start Date End Date Janay Duran APRN [address] [place] [phone] PCP - General Family Medicine - Primary Care 07/22/22 Pam Germain MD [address] [place] [phone] Medical Oncology 03/22/22 documented as of this encounter
--- OUTSIDE RECORDS SUMMARY | 2023-12-10 17:37 | XMS_ITS | Referral Summary ---
Author Organization [facility] Address [address] [place] [address] Care Team Providers Care Flat Ironer Name Role Phone Pam Germain MD Unavailable [phone] Janay Duran APRN Primary Care Provider Robin vines Encounters Date Type Department Care Team Description 10/11/2023 Telephone [facility] Hematology & Oncology [address] [phone] Pam Germain MD Appointment Related 10/07/2023 16:20 EDT Office Visit [facility] Hematology Oncology [address] [phone] Jeremie Vazquez, PA-C Malignant 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, estrogen receptor negative (HCC-CMS) (Primary Dx); Triple negative malignant neoplasm of breast (HCC-CMS) from Last 3 Months Allergies Active Allergy Reactions Criticality Noted Date [...] different from the original. Verified [facility] Medicaid trans#[id number] Bhavani Radha 06/27/2020 14:08 2021-Verified ACO Attributed [place] Medicaid TCN:[id number] Anastacio Bradfordalannah 05/20/2021 9:55 Problem Noted Date Diagnosed Date Hepatic steatosis 03/26/2021 Hypertension 03/26/2021 History of anxiety 03/26/2021 Breast cancer in female ([facility]) 12/24/2020 Malignant neoplasm of upper- inner quadrant of breast in female, estrogen receptor negative ([facility]) 07/15/2020 Cancer Staging:Clinical:Stage IIB(cT2, cN0, cM0, G3, ER-, NE-, HER2-) - Signed by Maeve Morales DO on 07/15/2020 Resolved Problems Problem Noted Date Diagnosed Date Resolved Date Sepsis ([facility]) 11/21/2020 11/23/2020 Fever and chills 11/21/2020 11/23/2020 Immunizations Name Administration Dates Next Due Covid-19 mRNA Vaccine (PFIZE R COVID-19) PF 0.3 ml IM (12 yrs+) 08/29/2020,08/08/2020 Social History Tobacco Use Types Packs/Day Years [...] 9:10 EDT Sexual Orientation Not on file Last Filed Vital Signs Vital Sign Reading [...] Body Mass Index 25.35 10/07/2023 1603 EDT Functional Status Functional Status Response Date of [...] concentrating, remembering, or making decisions? Yes 10/07/2023 Plan of Treatment Upcoming Encounters Date Type Department Care Team (Late st Contact Info) Description 01/31/2024 13:40 EDT Office Visit [facility] Surgical Oncology - [address] [address] Maeve Morales, DO 111 [facility], [facility], [address] [place] [address] Medical Devices Implanted Type Area Tool/Die Maker Device Identifier Shelf Expiration Date Model / Serial / Lot Implant Breast Silicone Round Smooth 755cc Memorygel [id number] - [id number] Implanted:Qty : 1 on 01/11/2022 by Juanito Carcamo MD FACS at [facility] Breast Implant Right: Breast [employer] [id number] 02/12/2023 [id number] / [id number] / [id number] Implant Breast Silicone Round Smooth 755cc Memorygel [id number] - [id number] Implanted:Qty : 1 on 01/11/2022 by Juanito Carcamo MD FACS at [facility] Breast Implant Left: Breast [employer] [id number] 02/26/2026 [id number] / [id number] / [id number] Tissue 132cm 9.6 X 19.3cm Alloderm Contour Matrix Dermal Rtm Medium Thick - [id number] Implanted:Qty : 1 on 12/24/2020 by Juanito Carcamo MD FACS at [facility] Tissue Right: Breast [employer] [id number] 09/12/2022 [id number] / / [id number] Tissue 320cm Alloderm 16 X 20cm Perforated Med Thickness - [id number] Implanted:Qty : 1 on 12/24/2020 by Juanito Carcamo MD FACS at [facility] Tissue Right: Breast [employer] [id number] 05/15/2022 [id number] / / [id number] Tissue 132cm 9.6 X 19.3cm Alloderm Contour Matrix Dermal Rtm Medium Thick - [id number] Implanted:Qty : 1 on 12/24/2020 by Juanito Carcamo MD FACS at [facility] Tissue Left: Breast [employer] [id number] 09/12/2022 [id number] / / [id number] Tissue 320cm Alloderm 16 X 20cm Perforated Med Thickness - [id number] Implanted:Qty : 1 on 12/24/2020 by Juanito Carcamo MD FACS at [facility] Tissue Left: Breast [employer] [id number] 05/15/2022 [id number] / / [id number] Port Infusion Low Profile 1 Lumen 8fr Cath Jax [id number] - [id number] Implanted:Qty : 1 on 08/08/2020 at [facility] Right: Chest Wall [employer] [id number] 05/15/2021 [id number] / / [id number] Explanted Type Area Tool/Die Maker Device Identifier Shelf Expiration Date Model / Serial / Lot Service Sprinkler Helper Tissue Breast 750cc Artoura Plus Smooth Surface High Profile - [id number] Implanted:Qty : 1 on 12/24/2020 by Juanito Carcamo MD FACS at [facility] Explanted:Qty : 1 on 06/18/2021 by Juanito Carcamo MD FACS at [facility] Service Sprinkler Helper Right: Breast [employer] 06/08/2024 [facility] / [id number] Service Sprinkler Helper Tissue Breast 750cc Artoura Plus Smooth Surface High Profile - [id number] Implanted:Qty : 1 on 12/24/2020 by Juanito Carcamo MD FACS at [facility] Explanted:Qty : 1 on 01/11/2022 by Juanito Carcamo MD FACS at [facility] Service Sprinkler Helper Left: Breast [employer] 06/08/2024 [facility] / [id number] Service Sprinkler Helper Tissue Breast 750cc Artoura Plus Smooth Surface High Profile - [id number] Implanted:Qty : 1 on 06/18/2021 by Juanito Carcamo MD FACS at [facility] Explanted:Qty : 1 on 01/11/2022 by Juanito Carcamo MD FACS at [facility] Service Sprinkler Helper Right: Breast [employer] 11/23/2024 [facility] / [id number] Procedures Procedure Name Priority Date/Time Associated Diagnosis Comments HEPATITIS C AB W REFLEX TO HCV RNA BY PCR Routine 02/25/2021 13:55 EDT LFTs abnormal from Last 3 Months or Most Recently Relevant to Health Maintenance Results * HEPATITIS C AB W REFLEX TO HCV RNA BY PCR (02/25/2021 13:55 EDT) Hep C Antibody Negative Negative 02/26/2021 11:03 EDT [facility] Blood VENOUS BLOOD / Unknown Venipuncture / Unknown 02/25/2021 13:55 EDT 02/25/2021 14:13 EDT Hernando Diaz MD PhD CHEMISTRY & BLO OD GAS ORDERABLES [facility] [address] [place] [address] from Last 3 Months or Most Recently Relevant to Health Maintenance Advance Directives For more information, please contact: [phone] * Full Code (Latest Code Status on [...] participated in the discussion? Patient Care Teams Flat Ironer Relationship Specialty Start Date End Date Janay Duran APRN [address] [place] [phone] PCP - General Family Medicine - Primary Care 07/22/22 Pam Germain MD [address] [place] [phone] Medical Oncology 03/22/22
--- OUTSIDE RECORDS SUMMARY | 2023-12-10 17:37 | XMS_ITS | Encounter Summary ---
Author Organization [facility] Address [address] [place] [address] Care Team Providers Care Case Investigator Name Role Phone Pam Germain MD Unavailable [phone] Janay Duran APRN Primary Care Provider Robin vines Encounter Details Date Type Department Care Team (Late st Contact Info) Description 03/15/2023 10:30 EDT Phlebotomy Only [facility] 2 Phlebotomy [address] [place], [place] [address] Volunteer Assistant, Acc Phlebotomy Malignant 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, estrogen receptor negative (HCC-CMS) Social History Tobacco Use Types Packs/Day [...] Info) Description 01/31/2024 13:40 EDT Office Visit [facility] Surgical Oncology - [address] [address] Maeve Morales, DO 111 [facility], [address] [place] [address] documented as of this encounter Procedures Procedure Name Priority Date/Time Associated Diagnosis Comments COMPREHENSIVE METABOLIC PANEL (ONCOLOGY USE ONLY-INC MG) Routine 03/15/2023 9:43 EDT Malignant 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, estrogen receptor negative (HCC-CMS) COMPLETE BLOOD COUNT AND DIFFERENTIAL Routine 03/15/2023 9:43 EDT Malignant 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, estrogen receptor negative (HCC-CMS) documented in this encounter Results * (ABNORMAL) COMPLETE BLOOD COUNT AND DIFFERENTIAL (03/15/2023 9:43 EDT) WBC 6.64 4.00 - 12.40 K/cmm 03/15/2023 10:00 EDT [facility] RBC 5.39(H) 3.86 - 5.04 M/cmm 03/15/2023 10:00 [facility] Hemoglobin 15.9(H) 11.6 - 15.2 g/dL 03/15/2023 10:00 [facility] HCT 47.1(H) 34.9 - 44.4 % 03/15/2023 10:00 [facility] MCV 87 81 - 98 fL 03/15/2023 10:00 [facility] MCH 29.5 26.7 - 33.3 pg 03/15/2023 10:00 [facility] MCHC 33.8 32.1 - 35.9 g/dL 03/15/2023 10:00 [facility] RDW-CV 12.3 <14.7 % 03/15/2023 10:00 [facility] RDW-SD 39.2 <50.4 fl 03/15/2023 10:00 [facility] PLT 253 141 - 377 K/cmm 03/15/2023 10:00 [facility] MPV 10.3 9.5 - 12.7 fL 03/15/2023 10:00 [facility] % Neutrophils 60.6 % 03/15/2023 10:00 [facility] % Lymphocytes 28.5 % 03/15/2023 10:00 [facility] % Monocytes 7.8 % 03/15/2023 10:00 [facility] % Eosinophils 1.8 % 03/15/2023 10:00 [facility] % Basophils 1.1 % 03/15/2023 10:00 [facility] % Immature Grans 0.2 % 03/15/20 10:00 [facility] Absolute Neutrophils 4.03 2.20 - 8.85 K/cmm 03/15/2023 10:00 [facility] Absolute Lymphocytes 1.89 1.09 - 3.30 K/cmm 03/15/2023 10:00 [facility] Absolute Monocytes 0.52 0.10 - 0.80 K/cmm 03/15/2023 10:00 EDT [facility] Absolute Eosinophils 0.12 0.03 - 0.61 K/cmm 03/15/2023 10:00 EDT [facility] ABS Basophils 0.07 0.01 - 0.11 K/cmm 03/15/2023 [facility] Absolute Immature Grans 0.01 0.00 - 0.06 K/cmm 03/15/2023 10:00 T [facility] Type of Differential: Auto 03/15/2023 10:00 [facility] Blood VENOUS BLOOD / Unknown Venipuncture / Unknown 03/15/2023 9:43 EDT 03/15/2023 9:53 EDT Pam Germain MD PACKAGES & DNA PROBE ORDERABLES [facility] [address] [place] [address] * (ABNORMAL) COMPREHENSIVE METABOLIC PANEL (ONCOLOGY USE ONLY-INC MG) (03/15/2023 9:43 EDT) Sodium 136 136 - 145 mmol/L 03/15/2023 10:35 [facility] Potassium 4.7 3.5 - 5.0 mmol/L 03/15/2023 10:35 [facility] Chloride 99 96 - 110 mmol/L 03/15/2023 10:35 [facility] CO2 Total 26 22 - 32 mmol/L 03/15/2023 10:35 [facility] Glucose 272(H) 70 - 99 mg/dl 03/15/2023 10:35 [facility] BUN 14 10 - 26 mg/dL 03/15/2023 10:35 [facility] Creatinine 0.49(L) 0.52 - 1.04 mg/dL 03/15/2023 10:35 [facility] eGFR 117 >60 mL/min/1.7 3m2 03/15/2023 10:35 [facility] Total Protein 8.0 6.3 - 8.2 g/dL 03/15/2023 10:35 [facility] Albumin 4.8 3.4 - 4.9 g/dL 03/15/2023 10:35 [facility] Alkaline Phosphatase 143(H) 38 - 126 U/L 03/15/2023 10:35 [facility] AST 55(H) 15 - 46 U/L 03/15/2023 10:35 [facility] ALT 80(H) <35 U/L 03/15/2023 10:35 [facility] Bilirubin, Total 0.5 <1.4 mg/dL 03/15/20 10:35 [facility] Calcium 9.6 8.5 - 10.5 mg/dL 03/15/2023 10:35 [facility] Magnesium 2.0 1.7 - 2.8 mg/dL 03/15/2023 10:35 [facility] Albumin/Globulin Ratio 1.5 1.0 - 2.5 g/dL 03/15/2023 10:35 [facility] Anion Gap 11 5 - 14 mmol/L 03/15/2023 10:35 [facility] Blood VENOUS BLOOD / Unknown Venipuncture / Unknown 03/15/2023 9:43 EDT 03/15/2023 10:03 EDT Pam Germain MD CHEMISTRY & BLOOD GA S ORDERABLES Performing Organization Address City/State/[facility] Co de Phone Number [facility] [address] [place] [address] documented in this encounter Visit Diagnoses Diagnosis Malignant 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, estrogen receptor negative (HCC-CMS) documented in this encounter Care Teams Case Investigator Relationship Specialty Start Date End Date Janay Duran APRN 111 [facility], [facility] [address] [place] [phone] PCP - General Family Medicine - Primary Care 07/22/22 Pam Germain MD 111 [facility], [address] [place] [phone] Medical Oncology 03/22/22 documented as of this encounter
--- OUTSIDE RECORDS SUMMARY | 2023-12-10 17:37 | XMS_ITS | Encounter Summary ---
Author Organization [facility] Address [address] [place] [address] Care Team Providers Care Potato Chip Packaging Machine Operator Name Role Phone Pam Germain MD Unavailable Janay Duran APRN Primary Care Provider Unava ilable Reason for Visit * Reason Onset Date Comments Coordination Of Care 10/15/2022 Encounter Details Date Type Department Care Team (Late st Contact Info) Description 10/15/2022 Telephone [facility] Hematology & Oncology - [facility] [address] [place], [place] [phone] France Haynes, RN Coordination Of Care (/) Social History Tobacco Use Types Packs/Day Years [...] encounter Miscellaneous Notes * Telephone Encounter - France Haynes RN - 10/15/2022 0906 EDT Reviewed with patient that Prema QUINTANILLA and Dr. Germain are opting for bone scan at this time related to hip pain. Patient stated understanding of the above. Patient did not have further questions at this time. documented in this encounter Plan of Treatment Upcoming Encounters Date Type Department Care Team (Late st Contact Info) Description 01/31/2024 13:40 EDT Office Visit [facility] Surgical Oncology - [address] [address] Maeve Morales DO [address] [phone] documented as of this encounter Visit Diagnoses Not on filedocumented in this encounter Care Teams Potato Chip Packaging Machine Operator Relationship Specialty Start Date End Date Janay Duran APRN [address] [place] [phone] PCP - General Family Medicine - Primary Care 07/22/22 Pam Germain MD [address] [place] [address] [address] [place] [phone] Medical Oncology 03/22/22 documented as of this encounter
--- OUTSIDE RECORDS SUMMARY | 2023-12-10 17:37 | XMS_ITS | Encounter Summary ---
Author Organization [facility] Address [address] [place] [address] Care Team Providers Care Psychiatric Tech Name Role Phone Pam Germain MD Unavailable [phone] Janay Duran APRN Primary Care Provider Unava ilable Reason for Visit * Reason Comments Post-OP Follow Up Bilateral nipple rec on Encounter Details Date Type Department Care Team (Latest Contact Info) Description 09/02/2022 16:15 EDT Post-op Visit [facility] Plastic, Reconstructive & Cosmetic Surgery - [address], [address] [place] [address] Anali Navas PA-C [address] [place] [phone] Surgery follow-up (Primary Dx) Social History [...] 9:10 EDT Sexual Orientation Not on file COVID-19 Exposure Response Date Recorded In the last 10 days, have yo u been in contact with someone who was confirmed or suspected to have Coronavirus/COVID-19? No / Unsure 08/06/2022 13:22 EDT documented as of this encounter Functional Status [...] as of this encounter Progress Notes * Anali Navas PA-C - 09/02/2022 1615 EDT SUBJECTIVE: Austin Squires returns in follow up from bilateral nipple recon with right medial dog ear revision with Dr. Carcamo on 07/22/22. Last seen on 08/09/22. She denies fevers, chills, spreading erythema, and drainage. OBJECTIVE: On examination, in no distress. Decreased inflammation of skin to breast skin and nippleflaps, hemosiderin staining present. Implants soft. No active drainage. IMPRESSION:6 weeks post nipple recon PLAN: Discussed plans for nipple tattoo with SOCORRO Wilkins, due to Melissa hemosiderin like staining after her rash would ideally like to wait at least six months to evaluate her skin condition and coloring. May now wear bras. All questions answered FOLLOW UP: 3 months post op with Dr. Carcamo 6 months with Deedee for tattoo consult F/U sooner for any concerns. Pt encouraged to call with any questions or concerns, informed that there is always someone masonry supervisor. Acute changes are asked to be reported. documented in this encounter Plan of Treatment Upcoming Encounters Date Type Department Care Team (Late st Contact Info) Description 01/31/2024 13:40 EDT Office Visit [facility] Surgical Oncology - [address] [id number] Maeve Morales DO [address] [phone] documented as of this encounter Visit Diagnoses Diagnosis Surgery follow-up- Primary Follow-up examination, following unspecified surgery documented in this encounter Care Teams Psychiatric Tech Relationship Specialty Start Date End Date Janay Duran APRN [address] [place] [phone] PCP - General Family Medicine - Primary Care 07/22/22 Pam Germain MD [address] [place] [phone] Medical Oncology 03/22/22 documented as of this encounter
--- OUTSIDE RECORDS SUMMARY | 2023-12-10 17:37 | XMS_ITS | Encounter Summary ---
Author Organization [facility] Address [address] [place] [address] Care Team Providers Care Family Day Care Provider Name Role Phone Pam Germain MD Unavailable [phone] Janay Duran PROCESS PLANNER Primary Care Provider Unava ilable Reason for Visit * Reason Onset Date Comments Appointment Related 05/13/2023 Encounter Details Date Type Department Care Team (Late st Contact Info) Description 05/13/2023 Telephone [facility] Surgical Oncology - [address] [id number] Maeve Morales, DO 111 [facility], [address] [place] [phone] Appointment Related Social History Tobacco Use Types [...] * Telephone Encounter - Yulissa Pedroza - 05/13/2023 1311 EST Gave pt a call to let her know that we would need to reschedule her appt w/ Dr. Morales on: 05/17/2023 While on the phone with the patient she accepted an opening w/ Dr. Morales on; 08/19/2023 @ 9:40am - pt is aware Yulissa Pedroza 05/13/2023 13:12 documented in this encounter Plan of Treatment Upcoming Encounters Date Type Department Care Team (Late st Contact Info) Description 01/31/2024 13:40 EDT Office Visit [facility] Surgical Oncology - [address] [phone] Maeve Morales DO [address] [place] [address], [address] [place] [phone] documented as of this encounter Visit Diagnoses Not on filedocumented in this encounter Care Teams Family Day Care Provider Relationship Specialty Start Date End Date Janay Duran, PROCESS PLANNER 111 [facility], [facility], [facility] [address] [place] [phone] PCP - General Family Medicine - Primary Care 07/22/22 Pam Germain MD 111 [facility], [facility] [address] [place] [phone] Medical Oncology 03/22/22 documented as of this encounter
--- OUTSIDE RECORDS SUMMARY | 2023-12-10 17:37 | XMS_ITS | Encounter Summary ---
Author Organization [facility] Address [address] [place] [address] Care Team Providers Care Hand Stamper Name Role Phone Pam Germain MD Unavailable [phone] Janay Duran APRN Primary Care Provider Robin vines Encounter Details Date Type Department Care Team (Late st Contact Info) Description 10/12/2022 Orders Only [facility] Hematology & Oncology - [place] [address] [place] [address] Delmi Egan, RN [address] [place] [address] Malignant neoplasm of upper-inner quadrant of left [...] as of this encounter Progress Notes * Delmi Egan RN - 10/12/2022 1156 EDT Lab orders placed for visit on 10/14 documented in this encounter Plan of Treatment Upcoming Encounters Date Type Department Care Team (Late st Contact Info) Description 01/31/2024 13:40 EDT Office Visit [facility] Surgical Oncology - [place] [phone] Maeve Morales DO [address] [phone] documented as of this encounter Visit Diagnoses Diagnosis Malignant 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, estrogen receptor negative (HCC-CMS)- Primary documented in this encounter Care Teams Hand Stamper Relationship Specialty Start Date End Date Janay Duran, GRADES [address] [place] [phone] PCP - General Family Medicine - Primary Care 07/22/22 Pam Germain MD [address] [place] [phone] Medical Oncology 03/22/22 documented as of this encounter
--- OUTSIDE RECORDS SUMMARY | 2023-12-10 17:37 | XMS_ITS ---
Author Organization [facility] Address [address] [place], [place] [id number] Care Team Providers Care Typewriter Assembler Name Role Phone Bianca Lopes Unavailable [phone] Sonya Wiley Unavailable [phone] REASON FOR VISIT Refill and schedule appt Encounters Encounter Location Date Provider Diagnosis [address] [phone] 06/30/2023 Sonya Wiley Plan Of Treatment No Information Progress Notes * ABLE HelenOB:1975 (47 yo F)Acc No.[id number]:06/30/2023 Patient:?Austin Squires :1975???Age:47 Y???Sex:Female Address:[address] [place] [phone] * true * Date:? Generated for Nash coburn/Pacheco/eTransmitting on:?12/10/2023 05:36 PM EDT
--- OUTSIDE RECORDS SUMMARY | 2023-12-10 17:37 | XMS_ITS | Encounter Summary ---
Author Organization [facility] Address [address] [place] [address] Care Team Providers Care Robotics Engineer Name Role Phone Pam Germain MD Unavailable [phone] Janay Duran APRN Primary Care Provider Robin vines Encounter Details Date Type Department Care Team (Latest Contact Info) Description 10/14/2022 16:00 EDT Phlebotomy Only [facility] Hematology & Oncology - [place] [address] [place], [place] [phone] Blood Doctor, [facility] Hem Onc Malignant neoplasm of upper-inner quadrant of left [...] as of this encounter Progress Notes * Sasha Cooper MA - 10/14/2022 1600 EDT Venipuncture performed for Gemrain Per orders of Marcellus Number of attempts 1, right ac I was supervised by Bradley who was present and immediately available in the office suite. SASHA COOPER MA 10/14/2022 16:18 documented in this encounter Plan of Treatment Upcoming Encounters Date Type Department Care Team (Late st Contact Info) Description 01/31/2024 13:40 EDT Office Visit [facility] Surgical Oncology - [address] [phone] Maeve Morales DO [address] [place] [address], [address] [place] [phone] documented as of this encounter Procedures Procedure Name Priority Date/Time Associated Diagnosis Comments COMPREHENSIVE METABOLIC PANEL (ONCOLOGY USE ONLY-INC MG) Routine 10/14/2022 16:26 EDT Malignant 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, estrogen receptor negative (HCC-CMS) COMPLETE BLOOD COUNT AND DIFFERENTIAL Routine 10/14/2022 16:26 EDT Malignant 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, estrogen receptor negative ([facility]) documented in this encounter Results * (ABNORMAL) COMPLETE BLOOD COUNT AND DIFFERENTIAL (10/14/2022 16:26 EDT) WBC 8.44 4.00 - 12.40 K/cmm 10/14/2022 16:40 [facility] RBC 4.82 3.86 - 5.04 M/cmm 10/14/2022 16:40 [facility] Hemoglobin 14.3 11.6 - 15.2 g/dL 10/14/2022 16:40 [facility] HCT 41.5 34.9 - 44.4 % 10/14/2022 16:40 [facility] MCV 86 81 - 98 fL 10/14/2022 16:40 [facility] MCH 29.7 26.7 - 33.3 pg 10/14/2022 16:40 [facility] MCHC 34.5 32.1 - 35.9 g/dL 10/14/2022 16:40 [facility] RDW-CV 11.9 <14.7 % 10/14/2022 16:40 [facility] RDW-SD 37.3 <50.4 fl 10/14/2022 16:40 [facility] PLT 291 141 - 377 K/cmm 10/14/2022 16:40 [facility] MPV 9.8 9.5 - 12.7 fL 10/14/2022 16:40 [facility] % Neutrophils 61.4 % 10/14/2022 16:40 [facility] % Lymphocytes 25.9 % 10/14/2022 16:40 [facility] % Monocytes 10.5 % 10/14/2022 16:40 [facility] % Eosinophils 1.2 % 10/14/2022 16:40 [facility] % Basophils 0.8 % 10/14/2022 16:40 [facility] % Immature Grans 0.2 % 10/15/19 16:40 [facility] Absolute Neutrophils 5.17 2.20 - 8.85 K/cmm 10/14/2022 16:40 [facility] Absolute Lymphocytes 2.19 1.09 - 3.30 K/cmm 10/14/2022 16:40 [facility] Absolute Monocytes 0.89(H) 0.10 - 0.80 K/cmm 10/14/2022 16:40 [facility] Absolute Eosinophils 0.10 0.03 - 0.61 K/cmm 10/14/2022 16:40 [facility] ABS Basophils 0.07 0.01 - 0.11 K/cmm 10/14/2022 16:40 [facility] Absolute Immature Grans 0.02 0.00 - 0.06 K/cmm 10/14/2022 16:40 [facility] Type of Differential: Auto 10/14/2022 16:40 [facility] Blood VENOUS BLOOD / Unknown Venipuncture / Unknown 10/14/2022 16:26 EDT 10/14/2022 16:29 EDT Pam Germain MD PACKAGES & DNA PROBE ORDERABLES [facility] [address] [place] [address] * (ABNORMAL) COMPREHENSIVE METABOLIC PANEL (ONCOLOGY USE ONLY-INC MG) (10/14/2022 16:26 EDT) Sodium 136 136 - 145 mmol/L 10/14/2022 16:47 T [facility] Potassium 3.9 3.5 - 5.0 mmol/L 10/14/2022 16:47 [facility] Chloride 101 96 - 110 mmol/L 10/14/2022 16:47 [facility] CO2 Total 25 22 - 32 mmol/L 10/14/2022 16:47 [facility] Glucose 174(H) 70 - 100 mg/dl 10/14/2022 16:47 [facility] BUN 10 10 - 26 mg/dL 10/14/2022 16:47 [facility] Creatinine 0.45(L) 0.52 - 1.04 mg/dL 10/14/2022 16:47 [facility] eGFR 119 >60 mL/min/1.7 3m2 10/14/2022 16:47 [facility] Total Protein 7.1 6.3 - 8.2 g/dL 10/14/2022 16:47 [facility] Albumin 4.5 3.4 - 4.9 g/dL 10/14/2022 16:47 [facility] Alkaline Phosphatase 109 38 - 126 U/L 10/14/2022 16:47 [facility] AST 50(H) 15 - 46 U/L 10/14/2022 16:47 [facility] ALT 63(H) <35 U/L 10/14/2022 16:47 [facility] Bilirubin, Total <0.5 <1.4 mg/dL 10/15/19 16:47 [facility] Calcium 9.3 8.5 - 10.5 mg/dL 10/14/2022 16:47 [facility] Magnesium 1.7 1.7 - 2.8 mg/dL 10/14/2022 16:47 [facility] Albumin/Globulin Ratio 1.7 1.0 - 2.5 10/14/2022 16:47 [facility] Anion Gap 10 5 - 14 mmol/L 10/14/2022 16:47 [facility] Blood VENOUS BLOOD / Unknown Venipuncture / Unknown 10/14/2022 16:26 EDT 10/14/2022 16:29 EDT Pam Germain MD CHEMISTRY & BLOOD GA S ORDERABLES [facility] [address] [place] [address] documented in this encounter Visit Diagnoses Diagnosis Malignant 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, estrogen receptor negative ([facility])- Primary documented in this encounter Care Teams Robotics Engineer Relationship Specialty Start Date End Date Janay Duran APRN [address] [phone] PCP - General Family Medicine - Primary Care 07/22/22 Pam Germain MD [address] [phone] Medical Oncology 03/22/22 documented as of this encounter
--- OUTSIDE RECORDS SUMMARY | 2023-12-10 17:38 | XMS_ITS | Encounter Summary ---
Author Organization [facility] Address [address] [place] [address] Care Team Providers Care Bodily Injury Adjuster Name Role Phone Pam Germain MD Unavailable [phone] Janay Duran APRN Primary Care Provider Unava ilable Reason for Referral * Specialty Diagnoses / Procedures Referred By Jen Referred To Contact Yelitza Etienne MD [address] [place] [address] Referral ID Status Reason Start Date Expiration Date Visits Re quested Visits Authorized Comments - Chest pain (angina) - Dizziness or fainting - Decreased urine output - Fever greater than 100.5 or chills - Inability to swallow or increasing difficulty swallowing - Increased or new pain - Increased swelling in legs or arms - Nausea or vomiting - Pain unrelieved by medication - Severe or increasing headache - Shortness of breath or rapid breathing - Skin rash - Signs of infection such as pain, redness, swelling or drainage at procedure or wound site Reason for Visit * Auth/Cert (Routine) Specialty Diagnoses / Procedures [facility] Referred To Contact Diagnoses 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, estrogen receptor negative, unspecified laterality (HCC-CMS) Procedures NY NIPPLE/AREOLA RECONSTRUCTION NY GRAFTING OF AUTOLOGOUS FAT BY LIPO 50 CC OR LESS NY RECMPL WND TRUNK 2.6-7.5 CM NY REP,SKIN,TRUNK,CMPLX,+5 CM/< BILATERAL NIPPLE RECONSTRUCTION WITH POSSIBLE FAT GRAFTING and bilateral medial dog ear revision GRAFTING OF AUTOLOGOUS FAT HARVESTED BY LIPOSUCTION TECHNIQUE TO TRUNK, BREASTS, SCALP, ARMS AND/OR LEGS; 50CC OR LESS INJECTATE REPAIR, LACERATION, TORSO, COMPLEX REPAIR, LACERATION, TORSO Referral ID Status Reason Start Date Expiration Date Visits Re quested Visits Authorized [id number] 1 1 Encounter Details Date Type Department Care Team (Latest Contact Info) Description 07/22/2022 10:37 EST - 07/22/2022 17:52 EST Hospital Encounter [facility] [place] [address] [place] [address] Juanito Carcamo MD [facility] [address] [facility] [address] [place] [address] Discharge Disposition: Home or Self Care Social [...] Sign Reading Time Taken Comments Blood Pressure 110/85 07/22/2022 1700 EST Pulse 85 07/22/2022 1124 EST Temperature 36.2 ??C (97.2 ??F) 07/22/2022 1700 EST Respiratory Rate 17 07/22/2022 1700 EST Oxygen Saturation 94% 07/22/2022 1700 EST Inhaled Oxygen Concentration - - Weight 78.7 kg (173 lb 8 oz) 07/22/2022 1102 EST Height 167.6 cm (5' 6) 07/22/2022 1102 EST Body Mass Index 28 07/22/2022 1102 EST documented in this encounter Functional Status Functional [...] Sig Dispensed Refills Start Date End Date cephalexin (KEFLEX) 500 mg capsule Take 1 Capsule by mouth every 6 hours for 5 days. 20 Capsule 07/22/2022 07/26/2022 escitalopram oxalate (LEXAPRO) 10 mg tablet Take 30 mg by mouth daily. 12/03/2022 HYDROmorphone (DILAUDID) 2 mg tablet Take 1 Tablet by mouth every 4 hours as needed for Pain. Daily Max: 12 mg 5 Tablet 07/22/2022 07/26/2022 metformin HCl (METFORMIN ORAL) Take by mouth. traZODone (DESYREL) 50 mg tablet Take 50 mg by mouth as needed. 12/03/2022 documented as of this encounter Ordered Prescriptions Prescription Sig Dispensed Refills Start Date End Da te cephalexin (KEFLEX) 500 mg capsule Take 1 Capsule by mouth every 6 hours for 5 days. 20 Capsule 07/22/2022 07/26/2022 HYDROmorphone (DILAUDID) 2 mg tablet Take 1 Tablet by mouth every 4 hours as needed for Pain. Daily Max: 12 mg 5 Tablet 07/22/2022 07/26/2022 documented in this encounter Discharge Disposition Disposition Code Departure Means Destination Home or Self Snf documented in this encounter H&P Notes * Colleen Marin MD - 07/22/2022 1055 EST Day of Surgery H&P Date of Service: 07/22/2022 Procedure: bilateral nipple reconstruction and revision of bilateral dog ears Attending Surgeon: Dr. Carcamo Chief Complaint: s/p breast reconstruction HPI: Austin Squires is a 46 y.o. old female with prior bilateral mastectomies and implant-based reconstruction who now presents for planned bilateral nipple reconstruction and revision of bilateral dog ears. Since seeing Dr. Carcamo last week, reports being in stable health, no recent changes. PMH PSH Past Medical History: Diagnosis Date ??? Activity, other involving cardiorespiratory exercise Noted 07/19/2022: stretching exercises and weights ??? Anxiety Noted 07/19/2022: controlled w/ meds ??? Back pain Noted 07/19/2022: degenerative disc disease ??? Bladder incontinence ??? Cancer ([facility] ([facility]) Noted 07/19/2022: breast ??? Diabetes mellitus, type 2 ([facility]) Noted 07/19/2022: not currently on meds, last [...] SURGICAL HISTORY 1998, 2011 epidural with childbirth Social History Family history Social History Tobacco Use ??? Smoking status: Former Packs/day: 1.00 Years: 30.00 Pack years: 30.00 Types: Cigarettes Quit date: 09/17/2020 Years since quittin.8 ??? Smokeless tobacco: Never ??? Tobacco comments: Smoked on and off when smoked- started as a teen Substance Use Topics ??? Alcohol use: Not Currently Family History Problem Relation Age of Onset ??? Lung Cancer Mother Medications Medications Prior to Admission Medication Sig Dispense Refill Last Dose ??? docusate sodium (COLACE) 50 mg capsule Take 50 mg by mouth 2 times daily as needed for Constipation. (Patient not taking: No sig reported) ??? escitalopram oxalate (LEXAPRO) 10 mg tablet Take 30 mg by mouth daily. ??? metformin HCl (METFORMIN ORAL) Take by mouth. (Patient not taking: No sig reported) ??? traZODone (DESYREL) 50 mg tablet Take 50 mg by mouth as needed. ??? UNABLE TO FIND 2 week steroid for arm pain (Patient not taking: No sig reported) Allergies Allergies Allergen Reactions ??? Ondansetron Other (See Comments) Dose to be limited to under 16mg daily while on Lexapro as EKG showed QTC as 0.4 ??? Oxycodone Other (See Comments) Made her hyper ??? Wound Dressings [place] (pt states port-a-cath dressing with white border causes skin issues). Review of Systems: a ten point review of systems was performed. Pertinent positives are listed above in HPI, all others are negative. Objective: VS: No data found. Physical Exam: Gen: awake, alert, NAD CV: regular rate and rhythm, no M/R/G Pulm: clear to auscultation bilaterally, no wheezes or rhonchi Musculoskeletal: normal range of motion Ext: warm, well perfused, no edema Data Review: None Assessment Austin Squires is a 46 y.o. old female with prior bilateral mastectomies and implant-based reconstruction who now presents for planned bilateral nipple reconstruction and medial dog ear revision withDr. Carcamo. Has been well since prior office visit. Plans discussed. Patient ready to proceed with surgery. Plan: To OR for bilateral nipple recon and dog ear revision with Dr. Carlos Alberto Lofton preop Likely home from PACU Colleen Marin MD PGY4 07/22/2022 10:56 #[phone] (Plastics Service Pager) documented in this encounter OR Notes * OR Surgeon - Juanito Carcamo MD FACS - 07/22/2022 2173 EST BILATERAL NIPPLE RECONSTRUCTION AND RIGHT MEDIAL DOG EAR REVISION (B) Operative Note Date: 07/22/2022 Location: [facility] OR Name: Austin Squires, : 1975, Diagnosis Pre-Op Diagnosis Codes: * 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, estrogen receptor negative, unspecified laterality (HCC-CMS) (HCC) [C50.219, Z17.1] Post- op Diagnosis * 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, estrogen receptor negative, unspecified laterality (HCC-CMS) (HCC) [C50.219, Z17.1] Procedures * BILATERAL NIPPLE RECONSTRUCTION AND RIGHT MEDIAL DOG EAR REVISION Surgeons * Juanito Carcamo MD FACS - Primary * Colleen Marin MD - Resident - Assisting Procedure Summary Anesthesia: General ASA: II Estimated Blood Loss: 10 mL PREOPERATIVE DIAGNOSIS: 1. Status post breast reconstruction POSTOPERATIVE DIAGNOSIS: 1. Status post breast reconstruction PROCEDURE : 1. Bilateral nipple reconstruction SURGEON: Juanito Carcamo MD FACS - Primary Colleen Marin MD - Resident - Assisting ANESTHESIA: General endotracheal INDICATIONS: Please see office dictation. Briefly, Austin Squires is a 46 y.o. female who is here for the continuation of her breast reconstruction with bilateral nipple reconstruction. Risk and benefits of nipple reconstruction were discussed. She understands the risk to include but not be limitedto infection, bleeding, wound formation, loss of projection, partial complete loss of the reconstruction and possible need for further surgery. She she also has an area of medial fullness that creates asymmetry and will be addressed by excision. Signed informed consents on the chart NARRATIVE: The patient was seen preoperatively and marked accordingly by me. Stage I of the WHO checklist was appropriately completed. The patient was then taken to the operative suite and placed supine on the operating table. Sequential compression devices were placed. Preoperative antibiotics were given. After general endotracheal anesthia was induced without incident. The patient was prepped with ChloraPrep and draped in standard sterile manner. Stage II the WHO checklist was appropriately completed. The medial dogear was revised first with excision based on preoperative markings. This 6 cm closure was performed with very interrupted 3-0 Monocryl and running 4-0 Monocryl. Next modified Holistic Health Practitioner V flaps with 1 cm base and 2.5 cm limbs was incised, elevated and assembled based on the preoperative markings bilaterally. This was secured with 5-0 Monocryl and 5-0 plain gut. The donor sites were closed with buried interrupted 4-0 Monocryl and running 5-0 Monocryl. This was dressed with Dermabond, layers of 1 inch sterile paper tape and an adhesive nipple protectors. The medial dogear site was dressed with benzoin and 1 sterile paper tape at the end of the case all appropriate needle instrument and sponge counts were correct. The postoperative brief noted no deficiencies and the third stage of the WHO checklist was completed appropriately. The patient was awakened extubated and transferred recovery room in stable condition. documented in this encounter Miscellaneous Notes * Brief Op Note - Colleen Marin MD - 07/22/2022 1555 EST Plastic Surgery Brief Op Note Date of Surgery: 07/22/2022 Surgeon: Dr. Carcamo Assistants: Colleen Marin MD PGY4 Pre-Op Diagnosis: s/p implant-based breast recon, bilateral Post-Op Diagnosis: same Procedure(s): bilateral nipple reconstruction, revision of right medial dog ear (6.5cm, SPY angiography Anesthesia Type: General Findings: adequate perfusion on SPY after revision of left side. See attending dictation for full operative details. Estimated Blood Loss: 5 mL Fluids: 800 mL Urine Output: 300 mL, Howard out at end of case Specimens/Cultures: right medial dog ear sent for routine Drains/Packs: None Complications: None apparent Disposition and Condition: Austin Squires was sent to PACU in Stable condition. Plan: Home from PACU APAP + HM PRN pain Nipple covers stay on until f/u visit Keflex x 5 days No ice or NSAIDs Colleen Marin MD PGY4 07/22/2022 15:55 #[phone] (Plastics Service Pager) documented in this encounter Plan of Treatment Upcoming Encounters Date Type Department Care Team (Late st Contact Info) Description 01/31/2024 13:40 EDT Office Visit [facility] Surgical Oncology - [address] [address] Maeve Morales, DO [address] [facility], [address] [place] [phone] Scheduled Referrals Name Type Priority Associated Diagnoses Order Schedule PROVIDER FOLLOW-UP INSTRUCTIONS Outpatient Referral Routine Ordered: 07/22/2022 documented as of this encounter Procedures Procedure Name Priority Date/Time Associated Diagnosis Comments SURGICAL PATHOLOGY Routine 07/22/2022 13 :58 EST RECONSTRUCTION, NIPPLE AND AREOLA, BILATERAL 07/22/2022 12:57 EST 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, estrogen receptor negative, unspecified laterality ([facility]) POCT GLUCOSE, INTERFACED Routine 07/22/2022 11:44 EST TEST, URINE STAT 07/22/2022 11:19 EST documented in this encounter Results * SURGICAL PATHOLOGY (07/22/2022 13:58 EST) Note to Patient The following pathology results have been interpreted by your pathologist and may be available to you before your health provider has had the opportunity to review them. Please allow time for your provider to receive these results and explore management options, if applicable. 07/27/2022 14:05 [facility] Final Diagnosis A. SKIN OF RIGHT BREAST, MASTECTOMY SCAR, EXCISION: - Chronic inflammation and dermal fibrosis (incisional scar). 07/27/2022 14:05 [facility] Attestation There was significant resident/fellow involvement in the diagnostic evaluation of this case. By the signature below, the attending physician certifies that they have personally conducted a gross and/or microscopic examination of the described specimens and rendered or confirmed the above diagnosis. 07/27/2022 14:05 [facility] at 1405 Clinical History 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, estrogen receptor negative, unspecified laterality (HCC-CMS) (HCC) 07/27/2022 14:05 [facility] Gross Description A. Received fresh labelled with proper patient identification (initials H, R) and right medial dogear is an unoriented elliptical excision of sosa skin (4.6 x 1.1 cm, excised to a depth of 0.7 cm). There is a white-sosa well-healed the ill-defined scar (3.5 x 0.1 cm) located on the skin surface. The skin surface is otherwise unremarkable. The specimen is serially sectioned to reveal unremarkable cut surfaces. Technology Sales Specialist sections are submitted in A1. SOCORRO BOWENS(ASCP) 07/23/2022 9:34 07/27/2022 14:05 [facility] Resident/Chris w: Dilia Mcmillan MD 07/27/2022 14:05 [facility] Performing Lab [facility] 07/27/2022 14:05 [facility] Scanned Images 07/27/2022 14:05 [facility] Tissue TISSUE SPECIMEN FROM SKIN / Unknown 07/22/2022 13:58 EST 07/22/2022 18:36 EST Juanito Carcamo MD, FACS PATHOLOGY OR DERABLES [facility] [address] [place] [address] * (ABNORMAL) POCT GLUCOSE, INTERFACED (07/22/2022 11:44 EST) Glucose, POC 139(H) 70 - 100 mg/dL 07/22/2022 11:52 EST [facility] HN LAB POC COMMENT (GLUCOSE) Test Performed by Nursing Services 07/22/2022 11:52 EST [facility] Blood CAPILLARY BLOOD / Unknown 07/22/2022 11:44 EST 07/22/2022 11:52 EST Juanito Carcamo MD FACS POINT OF CAR E TEST ORDERABLES [facility] [address] [place] [address] * TEST, URINE (07/22/2022 11:19 EST) Test, Urine Negative Negative 07/22/2022 11:37 EST [facility] Comment:False negative resul ts may occur in women who are beyond 5-8 weeks gestation. Diagnosis of should be based on a correlation of test results with typical clinical signs and symptoms. Urine URINE / Unknown Urine Collect / Unknown 07/22/2022 11:19 EST 07/22/2022 11:24 EST Devan Maldonado MD URINALYSIS ORDERABLE S [facility] [address] [place] [address] documented in this encounter Visit Diagnoses Diagnosis 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, estrogen receptor negative (HCC-CMS)- Primary documented in this encounter Admitting Diagnoses Diagnosis 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, estrogen receptor negative (HCC-CMS) documented in this encounter Administered Medications Inactive Administered Medications - up to 3 most recent administrations Medication Order MAR Action Action Date Dose Rate Site lactated ringers (LR) infusion at 25 mL/hr, intravenous, CONTINUOUS, Starting on Klaudia 07/22/22 at 1115, Until Klaudia 07/22/22 at 1959, Routine, Preprocedure Restarted 07/22/2022 13:07 EST New Bag 07/22/2022 11:46 EST 25 mL/hr documented in this encounter Discontinued Medications Medication Sig Discontinue Reason Start Date End Da te docusate sodium (COLACE) 50 mg capsule Take 50 mg by mouth 2 times daily as needed for Constipation. Therapy completed 07/22/2022 UNABLE TO FIND 2 week steroid for arm pain Therapy completed 07/22/2022 documented as of this encounter Active and Recently Administered Medications Times are shown in EST. Scheduled Medication Order 07/20/2022 07/21/2022 07/22/2022 ceFAZolin (ANCEF) syringe 2 g (COMPLETED) 2 g, intravenous, Administer over 5 Minutes, PRE-OP ONCE, 1 dose, On Klaudia 07/22/22 at 1115, Routine 1319 (Given - Provid er: Emelina Guillermo CRNA) Continuous Medication Order 07/20/2022 07/21/2022 07/22/2022 lactated ringers (LR) infusion at 25 mL/hr, intravenous, CONTINUOUS, Starting on Klaudia 07/22/22 at 1115, Until Klaudia 07/22/22 at 1959, Routine, Preprocedure 1146 (New Bag - Prov ider: Ned Kelly RN)1306 (Paused - Provider: Emelina Guillermo CRNA - Comment: Switch to gravity)1307 (Restarted - Provider: Emelina Guillermo CRNA)1610 (Completed - Provider: Salome Marin CRNA) PRN Medication Order 07/20/2022 07/21/2022 07/22/2022 indocyanine green (IC-GREEN) injection (CANCELED) PRN, Starting on Klaudia 07/22/22 at 1520, Until Klaudia 07/22/22 at 1620, Routine, Intraprocedure 1520 (Given - Provid er: Juanito Carcamo MD FACS) documented in this encounter Orders Medications Ordered That Juanito ht Not Have Been Administered Count Last Ordered Date First Ordered Date ceFAZolin (ANCEF) syringe 2 g 1 07/22/2022 dextrose 50 % solution 12.5 g 1 07/22/2022 glucagon injection 1 mg 1 07/22/2022 indocyanine green (IC-GREEN) injection 1 lidocaine (PF) 10 mg/mL (1 % ) injection 2 mg 1 07/22/2022 Diet Count Last Ordered Date First Orde red Date DISCHARGE DIET 1 07/22/2022 Nursing Count Last Ordered Date First Orde red Date ACTIVITY INSTRUCTIONS 1 07/22/2022 BATHING INSTRUCTIONS 1 07/22/2022 WOUND CARE INSTRUCTIONS 1 07/22/2022 Discharge Count Last Ordered Date First Orde red Date DISCHARGE PATIENT 1 07/22/2022 documented in this encounter Care Teams Bodily Injury Adjuster Relationship Specialty Start Date End Date Janay Duran APRN [address] [facility], [address] [place] [address] PCP - General Family Medicine - Primary Care 07/22/22 Pam Germain MD [address] [facility], [facility] [address] [place] [phone] Medical Oncology 03/22/22 documented as of this encounter
--- OUTSIDE RECORDS SUMMARY | 2023-12-10 17:38 | XMS_ITS | Encounter Summary ---
Author Organization [facility] Address [address] [place] [address] Care Team Providers Care Library Attendant Name Role Phone Batsheva Lira JOHN Primary Care Provider [phone] Reason for Visit * Reason Onset Date Comments Appointment Related 02/16/2022 Encounter Details Date Type Department Care Team (Late st Contact Info) Description 02/16/2022 Telephone [facility] [address] [phone] Maeve Morales, DO [address] [facility], [address] [place] [address] Appointment Related Social History Tobacco Use Types Packs/Day Years Used Date Smoking Tobacco: Former Cigarettes 0.5 30 0 09/17/1990 - 09/17/2020 Smokeless Tobacco: Never Comments:pt also vapes, once in awhile Alcohol Use Standard Drinks/Week Comments Yes 0 (1 standard drink = 0.6 oz pur e alcohol) rarely PHQ-2 Answer Date Recorded PHQ-2 SUBTOTAL 0 [...] * Telephone Encounter - Yulissa Pedroza - 02/16/2022 1404 EDT Gave pt a call per her message requesting to reschedule her visit with Dr. Morales on: 02/16/2022 While on the phone with the patient we rescheduled this appt to 04/22/2022 (added to the wait list) - pt is aware Yulissa Pedroza 02/16/2022 14:05 * Telephone Encounter - Kylah Christopher - 02/16/2022 0844 EDT Patient called in wanting to reschedule her appointment. Per patient she can reschedule for any date n time. plrase advise documented in this encounter Plan of Treatment Upcoming Encounters Date Type Department Care Team (Late st Contact Info) Description 01/31/2024 13:40 EDT Office Visit [facility] [place] [address] Maeve Morales, DO [address] [facility], [address] [place] [phone] documented as of this encounter Visit Diagnoses Not on filedocumented in this encounter Care Teams Library Attendant Relationship Specialty Start Date End Date Batsheva Lira FNP [address] [phone] PCP - General 02/19/20 07/21/22 documented as of this encounter
--- OUTSIDE RECORDS SUMMARY | 2023-12-10 17:38 | XMS_ITS | Encounter Summary ---
Author Organization [facility] Address [address] [place] [address] Care Team Providers Care Editor Trade Journal Name Role Phone Pam Germain MD Unavailable [phone] Janay Duran APRN Primary Care Provider Unava ilable Reason for Referral * Radiology Services (Routine/Next Available) - Authorization Not Required Specialty Diagnoses / Procedures Referred By Contac t Referred To Contact Diagnoses Cervical radiculopathy Procedures XR CERVICAL SPINE 4-5 VIEWS Briseyda Gilliam NP [address] [address] [facility] Referral ID Status Reason Start Date Expiration Date Visits Requested Visits Authorized [id number] Authorization Not Required 07/26/2022 1 1 Reason for Visit * Radiology Services (Routine/Next Available) - Authorization Not Required Specialty Diagnoses / Procedures Referred By Contac t Referred To Contact Diagnoses Cervical radiculopathy Procedures XR CERVICAL SPINE 4-5 VIEWS Briseyda Gilliam NP [address] [address] [facility] Referral ID Status Reason Start Date Expiration Date Visits Requested Visits Authorized [id number] Authorization Not Required 07/26/2022 1 1 Encounter Details Date Type Department Care Team (Latest Contact Info) Description 08/06/2022 12:58 EDT - 08/06/2022 23:59 EDT Hospital Encounter [facility] Radiology Xray Outpatient - [address] [address] Cervical radiculopathy Discharge Disposition: Home or Self Care Social [...] Start Date End Date escitalopram oxalate (LEXAPRO) 10 mg tablet Take 30 mg by mouth daily. 12/03/2022 metformin HCl (METFORMIN ORAL) Take by mouth. 10/14/2022 sulfamethoxazole-trimeth oprim (BACTRIM DS) 800-160 mg per tablet Take 1 Tablet by mouth every 12 hours for 7 days. 14 Tablet 08/02/2022 08/09/2022 traZODone (DESYREL) 50 mg tablet Take 50 mg by mouth as needed. 12/03/2022 documented as of this encounter Discharge Disposition Disposition Code Departure Means Destination Home or Self Care documented in this encounter Plan of Treatment Upcoming Encounters Date Type Department Care Team (Late st Contact Info) Description 01/31/2024 13:40 EDT Office Visit [facility] Surgical Oncology - [address] [phone] Maeve Morales, 111 [facility], Level 2 [place] [address] documented as of this encounter Procedures Procedure Name Priority Date/Time Associated Diagnosis Comments XR CERVICAL SPINE 4-5 VIEWS Routine 08/06/2022 13:14 EDT Cervical radiculopathy documented in this encounter Results * XR CERVICAL SPINE 4-5 VIEWS (08/06/2022 13:14 EDT) Anatomical Region Laterality Modality Left Computed Radiogr aphy 08/09/2022 7:57 EDT Impressions 08/09/2022 7:57 EDT Findings/Impression: At C3-4 there is trace anterolisthesis in flexion and trace retrolisthesis in extension. At C4-5 and C5-C6 there is normal alignment in the neutral and flexion positions with trace retrolisthesis in extension. Vertebral body heights are normal. Disc height loss at C5-6. No severe facet arthropathy. Narrative 08/09/2022 7:57 EDT XR CERVICAL SPINE 4-5 VIEWS ??08/06/2022 3:15 PM Clinical History/Comments: Cervical radiculopathy. Technique: AP and lateral views of the cervical spine. Lateral flexion and extension views of the cervical spine. Comparison: Cervical spine MRI July 01, 2022. Cervical spine radiographs June 03, 2022. Procedure Note Ang Mitchell MD - 08/09/2022 XR CERVICAL SPINE 4-5 VIEWS 08/06/2022 3:15 PM Clinical History/Comments: Cervical radiculopathy. Technique: AP and lateral views of the cervical spine. Lateral flexion and extensionviews of the cervical spine. Comparison: Cervical spine MRI July 01, 2022. Cervical spine radiographs 2022. IMPRESSION Findings/Impression: At C3-4 there is trace anterolisthesis in flexion and trace retrolisthesisin extension. At C4-5 and C5-C6 there is normal alignment in the neutraland flexion positions with trace retrolisthesis in extension. Vertebralbody heights are normal. Disc height loss at C5-6. No severe facetarthropathy. Briseyda Gilliam NP IMG DIAGNOSTIC IMAGING ORDERABLES documented in this encounter Visit Diagnoses Diagnosis Cervical radiculopathy Brachial neuritis or radiculitis nos documented in this encounter Care Teams Editor Trade Journal Relationship Specialty Start Date End Date Janay Duran APRN [address] [place] [address], [facility] 2 [place] [address] PCP - General Family Medicine - Primary Care 07/22/22 Pam Germain MD 111 [facility] 2 [place] [address] Medical Oncology 03/22/22 documented as of this encounter
--- OUTSIDE RECORDS SUMMARY | 2023-12-10 17:38 | XMS_ITS | Encounter Summary ---
Author Organization [facility] Address [address] [place] [address] Care Team Providers Care Residential Mental Health Worker Name Role Phone Pam Germain MD Unavailable [phone] Janay Duran APRN Primary Care Provider Unava ilable Reason for Visit * Reason Comments Post-OP Follow Up Nipple Recon Encounter Details Date Type Department Care Team (Latest Contact Info) Description 08/09/2022 13:00 EDT Post-op Visit [facility] Plastic, Reconstructive & Cosmetic Surgery - [address], [address] [place] [address] Anali Navas PA-C [address] [place] [phone] Surgery follow-up (Primary Dx) Social History [...] Progress Notes * Anali Navas PA-C - 08/09/2022 1300 EDT SUBJECTIVE: Austin Squires returns in follow up from bilateral nipple recon with right medial dog ear revision with Dr. Carcamo on 07/22/22. Last seen on 08/05/22. Austin reports continued pruritis. She denies fevers, chills, spreading erythema, and drainage. OBJECTIVE: On examination, in no distress. Decreased inflammation of skin to breast skin and nippleflaps present. Implants soft. No active drainage. IMPRESSION: Improvement in condition PLAN: Images taken for chart. Continue with nothing to the skin, cautious of anything touching the nipple reconstruction. She is okay to shower normally now with water running over her breasts but no scrubbing of the area. She may pat them dry very gently. Austin is curious about use of bra, stating that she starts a new job this week. However, we are avoiding any nipples rockwell 2/2 skin reaction, therefore should hold off on bra. Will discuss with and hamilton back to Austin. FOLLOW UP: 6 weeks post op F/U sooner for any concerns. Pt encouraged to call with any questions or concerns, informed that there is always someone education teacher. Acute changes are asked to be reported. documented in this encounter Plan of Treatment Upcoming Encounters Date Type Department Care Team (Late st Contact Info) Description 01/31/2024 13:40 EDT Office Visit [facility] Surgical Oncology - [address] [phone] Maeve Morales DO [address] [phone] documented as of this encounter Visit Diagnoses Diagnosis Surgery follow-up- Primary Follow-up examination, following unspecified surgery documented in this encounter Care Teams Residential Mental Health Worker Relationship Specialty Start Date End Date Janay Duran APRN [address] [place] [phone] PCP - General Family Medicine - Primary Care 07/22/22 Pam Germain MD [address] [place] [phone] Medical Oncology 03/22/22 documented as of this encounter
--- OUTSIDE RECORDS SUMMARY | 2023-12-10 17:38 | XMS_ITS | Encounter Summary ---
Author Organization [facility] Address [address] [place] [address] Care Team Providers Care Varnish Dipper Name Role Phone Batsheva Lira JOHN Primary Care Provider [phone] Pam Germain MD Unavailable [phone] Reason for Visit * Reason Onset Date Comments Appointment Related 07/15/2022 Encounter Details Date Type Department Care Team (Late st Contact Info) Description 07/15/2022 Telephone [facility] Surgical Oncology - [address] [phone] Maeve Morales, DO 111 [facility], [facility] 2 [place] [phone] Appointment Related Social History Tobacco Use Types [...] * Telephone Encounter - Yulissa Pedroza - 07/15/2022 1027 EST Gave pt a call to let her know that we received her message in request of rescheduling her visit with Dr. Morales While on the phone with the patient we rescheduled appt to: 12/03/2022 @ 4:20pm - pt is aware Yulissa Pedroza 07/15/2022 10:28 * Telephone Encounter - Kylah Christopher - 07/15/2022 0958 EST Patient called in needing to reschedule her 11/26/[address] Morales. 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 Starting new job Please advise documented in this encounter Plan of Treatment Upcoming Encounters Date Type Department Care Team (Late st Contact Info) Description 01/31/2024 13:40 EDT Office Visit [facility] Surgical Oncology - [address] [address] Maeve Morales DO 111 [facility], [facility] 2 [place] [phone] documented as of this encounter Visit Diagnoses Not on filedocumented in this encounter Care Teams Varnish Dipper Relationship Specialty Start Date End Date Batsheva Lira FNP [address] [phone] PCP - General 02/19/20 07/21/22 Pam Germain MD 111 [facility] 2 [place] [phone] Medical Oncology 03/22/22 documented as of this encounter
--- OUTSIDE RECORDS SUMMARY | 2023-12-10 17:38 | XMS_ITS | Encounter Summary ---
Author Organization [facility] Address [address] [place] [address] Care Team Providers Care Blood Donor Recruiter Name Role Phone Batsheva Lira JOHN Primary Care Provider [phone] Reason for Visit * Reason Onset Date Comments Medications Refill 02/23/2022 Encounter Details Date Type Department Care Team (Late st Contact Info) Description 02/23/2022 Telephone [facility] Pelvic Medicine and Reconstructive Surgery - Medical Office [facility] [address] [place] [address] Whit Patrick RN [address] [place] [address] Medications Refill Social History Tobacco Use Types Packs/Day Years [...] encounter Miscellaneous Notes * Telephone Encounter - Whit Patrick RN - 02/23/2022 0917 EDT Received automated fax to refill Oxybutynin. Call to patient and Austin states she is not taking this. Refill denied. Faxed to [phone] [facility]. No further questions or concerns documented in this encounter Plan of Treatment Upcoming Encounters Date Type Department Care Team (Late st Contact Info) Description 01/31/2024 13:40 EDT Office Visit [facility] Surgical Oncology - [address] [phone] Maeve Morales, DO 111 [facility], Level 2 [place] [phone] documented as of this encounter Visit Diagnoses Not on filedocumented in this encounter Care Teams Blood Donor Recruiter Relationship Specialty Start Date End Date Batsheva Lira FNP [address] [address] PCP - General 02/19/20 07/21/22 documented as of this encounter
--- OUTSIDE RECORDS SUMMARY | 2023-12-10 17:38 | XMS_ITS | Encounter Summary ---
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, estrogen receptor negative, unspecified laterality (HCC-CMS) Procedures WI NIPPLE/AREOLA RECONSTRUCTION WI GRAFTING OF AUTOLOGOUS FAT BY LIPO 50 CC OR LESS WI RECMPL WND TRUNK 2.6-7.5 CM WI REP,SKIN,TRUNK,CMPLX,+5 CM/< BILATERAL NIPPLE RECONSTRUCTION WITH POSSIBLE FAT GRAFTING and bilateral medial dog ear revision GRAFTING OF AUTOLOGOUS FAT HARVESTED BY LIPOSUCTION TECHNIQUE TO TRUNK, BREASTS, SCALP, ARMS AND/OR LEGS; 50CC OR LESS INJECTATE REPAIR, LACERATION, TORSO, COMPLEX REPAIR, LACERATION, TORSO Referral ID Status Reason Start Date Expiration Date Visits Re quested Visits Authorized [id number] 1 1 Encounter Details Date Type Department Care Team (Late st Contact Info) Description 07/22/2022 12:35 EST - 07/22/2022 17:05 EST Surgery [facility] OR [address] [place] [address] Juanito Carcamo MD [address] [place] [address] BILATERAL NIPPLE RECONSTRUCTION AND RIGHT MEDIAL DOG EAR REVISION [89170 (CPT??)] Surgery Details Date/Time Status Location OR Service Patient Class Case Cl ass Case Type Trauma Case? 07/22/22 1235 Posted [facility] OR [address] Outpatient Surgery H - Elective Panel 1 Procedure LRB Anes Op Region Wound Class Comments BILATERAL NIPPLE RECONSTRUCT ION AND RIGHT MEDIAL DOG EAR REVISION Bilateral General Nipple Class I / Clean Surgeon Surgeon Role Service Panel Juanito Carcamo MD FACS Primary Plastics 1 Yelitza Etienne MD Resident - Assisting Plastics 1 documented in this encounter Social History Tobacco Use Types Packs/Day Years [...] Code Departure Means Destination Home or Self Long Term documented in this encounter H&P Notes * [...] disc disease ??? Bladder incontinence ??? Cancer ([facility]) ([facility]) Noted 07/19/2022: breast ??? Diabetes mellitus, type 2 (HCC) Noted 07/19/2022: not currently on meds, last [...] reconstruction and medial dog ear revision withDr. Caracmo. Has been well since prior office visit. Plans discussed. Patient ready to proceed with surgery. Plan: To OR for bilateral nipple recon and dog ear revision with Dr. Carcamo [facility] preop Likely home from PACU Colleen Marin MD PGY4 07/22/2022 10:56 #[phone] (Plastics Service Pager) documented in this encounter OR Notes * OR Surgeon - Juanito Carcamo MD FACS - 07/22/2022 6396 EST BILATERAL NIPPLE RECONSTRUCTION AND RIGHT MEDIAL DOG EAR REVISION (B) Operative Note Date: 07/22/2022 Location: [facility] OR Name: Austin Squires, : 1975, [...] Monocryl and running 4-0 Monocryl. Next modified Dry Mop Maker V flaps with 1 cm base and [...] Note - Colleen Marin MD - 07/22/2022 8289 EST Plastic Surgery Brief Op Note Date [...] NSAIDs Colleen Marin MD PGY4 07/22/2022 15:55 #[phone] (Plastics Service Pager) documented in this encounter Plan of Treatment Upcoming Encounters Date Type Department Care Team (Late st Contact Info) Description 01/31/2024 13:40 EDT Office Visit [facility] Surgical Oncology - [address] [address] Maeve Morales, 111 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 07/27/2022 14:05 [facility] Final Diagnosis A. SKIN OF RIGHT BREAST, MASTECTOMY SCAR, EXCISION: - Chronic inflammation and dermal fibrosis (incisional scar). 07/27/2022 14:05 [facility] Attestation There was significant resident/fellow involvement in the diagnostic evaluation of this case. By the signature below, the attending physician certifies that they have personally conducted a gross and/or microscopic examination of the described specimens and rendered or confirmed the above diagnosis. 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 Received fresh [...] serially sectioned to reveal unremarkable cut surfaces. Assistant Professor Of Criminal Justice sections are submitted in A1. SOCORRO BOWENS(ASCP) 07/23/2022 9:34 07/27/2022 14:05 [facility] Resident/Chris w: Dilia Mcmillan MD 07/27/2022 14:05 [facility] Performing Lab [facility] 07/27/2022 14:05 [facility] Scanned Images 07/27/2022 14:05 [facility] Tissue TISSUE SPECIMEN FROM SKIN / Unknown 07/22/2022 13:58 EST 07/22/2022 18:36 EST Juanito Carcamo MD FACS PATHOLOGY OR DERABLES Performing Organization Address City/[facility]/ZIP Co de Phone Number [facility] [address] [place] [address] * (ABNORMAL) POCT GLUCOSE, INTERFACED (07/22/2022 11:44 EST) Glucose, POC 139(H) 70 - 100 mg/dL 07/22/2022 11:52 EST [facility] HN LAB POC COMMENT (GLUCOSE) Test Performed by Nursing Services 07/22/2022 11:52 EST [facility] Blood CAPILLARY BLOOD / Unknown 07/22/2022 11:44 EST 07/22/2022 11:52 EST Juanito Carcamo MD FACS POINT OF CAR E TEST ORDERABLES Performing Organization Address City/[facility]/ZIP Co de Phone Number [facility] [address] [place] [address] * TEST, URINE (07/22/2022 11:19 EST) Test, Urine Negative Negative 07/22/2022 11:37 EST [facility] Comment:False negative resul ts may occur in women who are beyond 5-8 weeks gestation. Diagnosis of should be based on a correlation of test results with typical clinical signs and symptoms. 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, estrogen receptor negative (HCC-CMS) documented in this encounter Administered Medications Inactive Administered Medications - up to 3 most recent administrations Medication Order MAR Action Action Date Dose Rate Site indocyanine green (IC-GREEN) injection PRN, Starting on Klaudia 07/22/22 at 1520, Until Klaudia 07/22/22 at 1620, Routine, Intraprocedure Given 07/22/2022 15:20 EST 4 mL lactated ringers (LR) infusion at 25 mL/hr, [...] Routine, Intraprocedure 1520 (Given - Provid er: Juainto Carcamo MD FACS) documented in this encounter Orders Medications Ordered That Juanito ht Not Have Been Administered Count Last Ordered Date First Ordered Date ceFAZolin (ANCEF) syringe 2 g 1 07/22/2022 dextrose 50 % solution 12.5 g 1 07/22/2022 glucagon injection 1 mg 1 07/22/2022 lidocaine (PF) 10 mg/mL (1 % ) [...] 07/22/2022 documented in this encounter Care Teams Social Work Instructor Relationship Specialty Start Date End Date Janay Duran, JULAIN 111 [facility], [address] [place] [address] PCP - General Family Medicine - Primary Care 07/22/22 Pam Germain MD 111 [facility], [facility] 2 [place] [phone] Medical Oncology 03/22/22 documented as of this encounter
--- OUTSIDE RECORDS SUMMARY | 2023-12-10 17:38 | XMS_ITS | Encounter Summary ---
Author Organization [facility] Address [address] [place] [address] Care Team Providers Care Lithoduplicator Operator Name Role Phone Pam Germain MD Unavailable [phone] Janay Duran APRN Primary Care Provider Unava ilable Reason for Visit * Reason Comments Post-OP Follow Up Encounter Details Date Type Department Care Team (Late st Contact Info) Description 07/28/2022 10:00 EDT Office Visit [facility] Plastic, Reconstructive & Cosmetic Surgery - [address], [address] [place] [address] Juanito Carcamo MD [address] [address] Surgery follow-up (Primary Dx) Social [...] Notes * Juanito Carcamo MD FACS - 07/28/2022 1000 EDT Austin follows up for her reconstructed nipple erythema. She is status post bilateral modified C to V flap nipple reconstruction on 07/22/2022. Postoperatively she developed erythema and concern for infection. Her nipple rockwell were removed and exchanged 07/26/2022. Patient was started on Bactrim at that time. On exam today her nipple rockwell were removed. Paper tape was placed and new nipple rockwell were appropriately applied. Patient was reassured that I see no signs of more extensive underlyingproblems. Signs and symptoms of infection were discussed. She will follow-up in 2 days for close monitoring. She knows to call for questions or concerns. documented in this encounter Plan of Treatment Upcoming Encounters Date Type Department Care Team (Late st Contact Info) Description 01/31/2024 13:40 EDT Office Visit [facility] Surgical Oncology - [facility] [address] [place], [place] [phone] Maeve Morales DO 111 [facility], [facility] 2 [place] [phone] documented as of this encounter Visit Diagnoses Diagnosis Surgery follow-up- Primary Follow-up examination, following unspecified surgery documented in this encounter Care Teams Lithoduplicator Operator Relationship Specialty Start Date End Date Janay Duran, GEMOLOGIST [address] [place] [phone] PCP - General Family Medicine - Primary Care 07/22/22 Pam Germain MD 111 [facility] 2 [place] [phone] Medical Oncology 03/22/22 documented as of this encounter
--- OUTSIDE RECORDS SUMMARY | 2023-12-10 17:38 | XMS_ITS | Encounter Summary ---
Author Organization [facility] Address [address] [place] [address] Care Team Providers Care Ceramic Worker Name Role Phone Pam Germain MD Unavailable [phone] Janay Duran APRN Primary Care Provider Unava ilable Reason for Visit * Reason Comments Post-OP Follow Up Bilateral nipple rec onstruction 3.9.23 Encounter Details Date Type Department Care Team (Latest Contact Info) Description 08/05/2022 10:00 EDT Post-op Visit [facility] Plastic, Reconstructive & Cosmetic Surgery - [address], [address] [place] [address] Anali Navas PA-C [address] [place] [phone] Surgery follow-up (Primary Dx) Social History [...] Progress Notes * Anali Navas PA-C - 08/05/2022 1000 EDT SUBJECTIVE: Austin Squires returns in follow up from bilateral nipple recon with right medial dog ear revision with Dr. Carcamo on 07/22/22. Last seen on 08/02/22. Austin reports lessened pruritis, but continues to take benadryl at night. She denies fevers, chills, spreading erythema, and [...] She may pat them dry very gently. FOLLOW UP: Next week. F/U sooner for any concerns. Pt encouraged to call with any questions or concerns, informed that there is always someone detonator assembler. Acute changes are asked to be reported. documented in this encounter Plan of Treatment Upcoming Encounters Date Type Department Care Team (Late st Contact Info) Description 01/31/2024 13:40 EDT Office Visit [facility] Surgical Oncology - [address] [id number] Maeve Morales DO [address] [place] [phone] documented as of this encounter Visit Diagnoses Diagnosis Surgery follow-up- Primary Follow-up examination, following unspecified surgery documented in this encounter Care Teams Ceramic Worker Relationship Specialty Start Date End Date Janay Duran, HOME CARE RN [address] [place] [phone] PCP - General Family Medicine - Primary Care 07/22/22 Pam Germain MD [address] [place] [phone] Medical Oncology 03/22/22 documented as of this encounter
--- OUTSIDE RECORDS SUMMARY | 2023-12-10 17:38 | XMS_ITS | Encounter Summary ---
Author Organization [facility] Address [address] [place] [address] Care Team Providers Care Bobbin Dumper Name Role Phone Batsheva Lira JOHN Primary Care Provider [phone] Reason for Visit * Reason Onset Date Comments Other 02/04/2022 CASE REQUEST Encounter Details Date Type Department Care Team (Late st Contact Info) Description 02/04/2022 Orders Only [facility] Plastic, Reconstructive & Cosmetic Surgery - [address], [address] [place] [address] Juanito Carcamo MD [address] [place] [address] 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, estrogen receptor negative, unspecified laterality (HCC-CMS) (HCC) (HCC-CMS) (Primary Dx) Social History Tobacco Use [...] Description 01/31/2024 13:40 EDT Office Visit [facility] [place] [address] Maeve Morales, [address], [address] [place] [phone] documented as of this encounter Visit Diagnoses Diagnosis 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, estrogen receptor negative, unspecified laterality (HCC-CMS)- Primary documented in this encounter Orders Case Request Count Last Ordered Date First Orde red Date CASE REQUEST OPERATING ROOM 1 02/07/2022 documented in this encounter Care Teams Bobbin Dumper Relationship Specialty Start Date End Date Batsheva Lira FNP [address] [phone] PCP - General 02/19/20 07/21/22 documented as of this encounter
--- OUTSIDE RECORDS SUMMARY | 2023-12-10 17:38 | XMS_ITS | Encounter Summary ---
Author Organization [facility] Address [address] [place] [address] Care Team Providers Care Family Medicine Chair Name Role Phone Batsheva Lira JOHN Primary Care Provider [phone] Pam Germain MD Unavailable [phone] Reason for Visit * Reason Onset Date Comments Appointment Related 04/15/2022 Encounter Details Date Type Department Care Team (Late st Contact Info) Description 04/15/2022 Telephone [facility] Surgical Oncology - [address] [phone] Maeve Morales, DO 111 [facility], [facility] [address] [place] [phone] Appointment Related Social History Tobacco Use Types [...] encounter Miscellaneous Notes * Telephone Encounter - Millie Gonzalez - 04/15/2022 1102 EST Called patient; need to reschedule as provider has a personal emergency. Rescheduled to 06/03/2022 @ 9:[address] Morales. Patient is aware. Millie Gonzalez 04/15/2022 11:03 documented in this encounter Plan of Treatment Upcoming Encounters Date Type Department Care Team (Late st Contact Info) Description 01/31/2024 13:40 EDT Office Visit [facility] Surgical Oncology - [address] [phone] Maeve Morales, DO 111 [facility], [facility], [address] [place] [address] documented as of this encounter Visit Diagnoses Not on filedocumented in this encounter Care Teams Family Medicine Chair Relationship Specialty Start Date End Date Batsheva Lira FNP [address] [place] [phone] PCP - General 02/19/20 07/21/22 Pam Germain MD [address] [place] [address], [facility] [address] [place] [phone] Medical Oncology 03/22/22 documented as of this encounter
--- OUTSIDE RECORDS SUMMARY | 2023-12-10 17:38 | XMS_ITS | Encounter Summary ---
Author Organization [facility] Address [address] [place] [address] Care Team Providers Care Fitter Machinist Name Role Phone Batsheva Lira JOHN Primary Care Provider [phone] Reason for Visit * Reason Comments Post-OP Follow Up 01/11/22 Encounter Details Date Type Department Care Team (Latest Contact Info) Description 01/19/2022 13:00 EDT Post-op Visit [facility] Plastic, Reconstructive & Cosmetic Surgery - [address], [address] [place] [address] Anali Navas PA-C [address] [place] [address] [place] [phone] Surgery follow-up (Primary Dx) Social History [...] Progress Notes * Anali Navas PA-C - 01/19/2022 1300 EDT SUBJECTIVE: Austin Squires returns in follow up from exchange of bilateral tissue expanders with silicone implants and fat grafting from the abdomen with Dr. Carcamo on 01/11/22. Last seen on 01/11/22. No health concerns reported. Austin has completed her abx as prescribed Lab Results Component Value Date Clinical History 01/11/2022 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, estrogen receptor negative, unspecified laterality ([facility]) (HCC) Final Diagnosis 01/11/2022 A. BREAST, RIGHT, MASTECTOMY SCAR, EXCISION: - Benign skin with healing hypertrophic scar. - Negative for malignancy. B. BREAST, LEFT, MASTECTOMY SCAR, EXCISION: - Benign skin with healing hypertrophic scar. - Negative for malignancy. C. BREAST TISSUE, LEFT, EXCISION: - Subcutaneous tissue with reparative changes. - Negative for malignancy. D. BREAST TISSUE, RIGHT, EXCISION: - Skin and subcutaneous tissue with reparative changes. - Negative for malignancy. Review of Systems Constitutional: Negative for chills and fever. Gastrointestinal: Negative for nausea and vomiting. Skin: Negative for rash. OBJECTIVE: On examination, in no distress. Incisions are well healing without sign or drainage or dehiscence. Skin devoid of erythema, ecchymosis, and rash. Paper tapes removed, cleansed with alcohol wipes, and paper tapes replaced. IMPRESSION: doing well PLAN: Post operative instruction reviewed with pt today, to be observed x6 weeks. Provided with theya post op bra. All questions answered FOLLOW UP: 6 weeks post op documented in this encounter Plan of Treatment Upcoming Encounters Date Type Department Care Team (Late st Contact Info) Description 01/31/2024 13:40 EDT Office Visit [facility] Surgical Oncology - [address] [phone] Maeve Morales DO 111 [facility], [address] [place] [phone] documented as of this encounter Visit Diagnoses Diagnosis Surgery follow-up- Primary Follow-up examination, following unspecified surgery documented in this encounter Discontinued Medications Medication Sig Discontinue Reason Start Date End Da te HYDROmorphone (DILAUDID) 2 mg tablet Take 1 Tablet by mouth every 4 hours as needed for Pain. Daily Max: 12 mg Therapy completed 01/11/2022 01/19/2022 documented as of this encounter Care Teams Fitter Machinist Relationship Specialty Start Date End Date Batsheva Lira FNP [address] [phone] PCP - General 02/19/20 07/21/22 documented as of this encounter
--- OUTSIDE RECORDS SUMMARY | 2023-12-10 17:38 | XMS_ITS | Encounter Summary ---
Author Organization [facility] Address [address] [place] [address] Care Team Providers Care Loan Clerk Name Role Phone Batsheva Lira JOHN Primary Care Provider [phone] Reason for Visit * Reason Onset Date Comments Other 02/15/2022 Encounter Details Date Type Department Care Team (Late st Contact Info) Description 02/15/2022 Telephone [facility] Plastic, Reconstructive & Cosmetic Surgery - [address], [address] [place] [address] Juanito Carcamo MD [address] [place] [phone] Other Social History Tobacco Use Types Packs/Day Years [...] encounter Miscellaneous Notes * Telephone Encounter - Mike Gotti RN - 02/16/2022 [address] Carcamo, states patient can have chiro as long as she doesn't lay in prone position. Related message to patient. Advised that she would have to lay on her back if she were going to haveit done. Patient indicated understanding. MIKE GOTTI RN 02/16/2022 11:54 * Telephone Encounter - Mike Gotti RN - 02/16/2022 1140 EDT Left message for patient to call clinic. MIKE GOTTI RN 02/16/2022 11:40 * Telephone Encounter - Mike Gotti RN - 02/15/2022 1133 EDT Will discuss with Dr. Carcamo tomorrow when he is in clinic. MIKE GOTTI RN 02/15/2022 11:33 * Telephone Encounter - Mary Stanton - 02/15/2022 1103 EDT Can she be adjusted by a chiro this soon after surgery? documented in this encounter Plan of Treatment Upcoming Encounters Date Type Department Care Team (Late st Contact Info) Description 01/31/2024 13:40 EDT Office Visit [facility] Surgical Oncology - [address] [phone] Maeve Morales, DO 111 [facility], [address] [place] [phone] documented as of this encounter Visit Diagnoses Not on filedocumented in this encounter Care Teams Loan Clerk Relationship Specialty Start Date End Date Batsheva Lira FNP [address] [phone] PCP - General 02/19/20 07/21/22 documented as of this encounter
--- OUTSIDE RECORDS SUMMARY | 2023-12-10 17:38 | XMS_ITS | Encounter Summary ---
Author Organization [facility] Address [address] [place] [address] Care Team Providers Care Fulling Mill Operator Name Role Phone Batsheva Lira JOHN Primary Care Provider [phone] Pam Germain MD Unavailable [phone] Reason for Referral * Radiology Services (Routine/Next Available) - Authorization Not Required Specialty Diagnoses / Procedures Referred By Contsharlene t Referred To Contact Diagnoses Thumb pain, left Procedures XR FINGER LEFT 2 OR MORE VIEWS Pam Germain MD [address] [place] [phone] [facility] Referral ID Status Reason Start Date Expiration Date Visits Requested Visits Authorized [id number] Authorization Not Required 04/23/2022 1 1 Reason for Visit * Reason Comments Follow-up Encounter Details Date Type Department Care Team (Late st Contact Info) Description 04/23/2022 9:30 EST Office Visit [facility] H[facility] Oncology - [address] [phone] Pam Germain MD [address] [place] [phone] Triple negative malignant neoplasm of breast (HCC-CMS) (Primary Dx); Thumb pain, left; Injury of left thumb, initial encounter Social History Tobacco Use Types Packs/Day [...] Sign Reading Time Taken Comments Blood Pressure 131/69 04/23/2022 0945 EST Pulse 106 04/23/2022 0945 EST Temperature 35.7 ??C (96.2 ??F) 04/23/2022 0945 EST Respiratory Rate 16 04/23/2022 0945 EST Oxygen Saturation 100% 04/23/2022 0945 EST Inhaled Oxygen Concentration - - Weight 78 kg (172 lb) 04/23/2022 0945 EST Height - - Body Mass Index 27.76 01/11/2022 0631 EDT documented in this encounter Functional Status [...] Progress Notes * Pam Germain MD - 04/23/2022 0913 EST Medical Oncology Note Name: Austin Squires Surgeon: Dr. Morales Rad onc: NA Stage: Cancer Staging 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, estrogen receptor negative (HCC-CMS) (HCC) Staging form: Breast, AJCC 8th Edition - Clinical: Stage IIB (cT2, cN0, cM0, G3, ER-, VT-, HER2-) - Signed by Maeve Morales DO on 07/15/2020 Assessment & Plan 46 y.o. with early stage triple negative breast cancer s/p neoadjuvant chemotherapy, b/l mastectomies and adjuvant capecitabine for residual tumor of 2.5 cm. She is seen today in follow-up. We discussed surveillance, namely alternating visits with this department and surgical oncology, without routine imaging or lab work unless new symptoms prompt such evaluations. Of note, she has ongoing left thumb pain that is bothersome to her at today's visit in the setting of recent trauma. Plan ?? X-Ray of thumb to evaluate for fracture today ?? Follow-up with plastics (Dr. Carcamo) as scheduled ?? Follow-up with Dr. Morales scheduled May (we will adjust our follow-up plan so that patient alternating with med and surg onc every 3 months) Follow-up: in August with CBC and CMP prior to visit Oncology History 1. Early stage TNBC Breast Cancer ?? Hand Wood Sander noticed a mass in her left breast in early June 2020 ?? Imaging and a biopsy on 07/09/20??of a 2.1 cm mass revealed a nuclear grade 3 ER negative VT negative for HER2 negative ductal carcinoma.? Staging evaluation did reveal a prominent L IM lymph node ?? Taxol/carboplatinum f/b AC, started July 22, 2020??& completed on 11/27/20 ?? Bilateral mastectomies??performed on 12/24/20 revealed 2.5 cm of a poorly differentiated ductal carcinoma. ??All margins were negative. ??0/3 nodes were positive.?Contralateral breast benign. PD-L1 testing appears to be negative. ?? Adjuvant capecitabine started late Jan,, completed 8 cycles. Genetic testing: negative (9 gene panel performed through [facility] was performed) Subjective Patient presents today in follow up. She had implants placed in December. Notes some neck pain and tension and some muscle tightness of chest. Moved to [facility]. Overall she feels well and no concerns other than went bow hunting in February and injured her left thumb. Still hurts and having trouble using. No lingering side effects of chemotherapy noted, with the exception of some memory changes that aremild. Notes ongoing fatigue. Past Medical & Surgical History: 1. Hepatic steatosis 2. HTN 3. Anxiety 4. Urinary incontinence 5. Cholecystectomy in 2018 Medications: Reviewed. Allergies: Reviewed. Social History: Lives in [facility]. Has young daughter and two adult children (early 20s, boy and girl). Single. Family History: Austin has 2 daughters and a son who range in age from 9-21. ??Austin has no full siblings. ??She has4 paternal half siblings including 3 brothers and a sister. ?? Melissa maternal family history includes her mother who was diagnosed with lung cancer at the age of54 and at the age of 56 from metastatic disease.??She was a smoker.?All of her mother's family lives in [place] and Austin has no information about the health of these relatives. ?? Melissa paternal family history includes her father who is 64 and relatively healthy for his age. ??Her father has 5 full brothers and 5 full sisters. ??He also has 2 paternal half-brothers. ??One of his full brothers of liver cancer in his 50s. ??Melissa paternal grandfather was diagnosed with leukemia in his 80s and in his 90s. ??Her paternal relatives are of [place] descent. Objective Performance Status: ECOG PS 0 Physical Exam BP 131/69 Pulse (!) 106 Temp 35.7 ??C (96.2 ??F) (Skin) Resp 16 Wt 78 kg (172 lb) SpO2 100% BMI 27.76 kg/m?? General: Appears in no distress Skin: No rashes Pulm: No increased work of breathing on room air Lymph Node Exam: No palpable cervical lymphadenopathy. No supraclavicular lymphadenopathy. No palpable axillary lymphadenopathy. Chest Exam: S/p bilateral mastectomies with implants. No masses or concerning findings. Left thumb: limited CL and tenderness to palpation I have personally reviewed the relevant studies as follows: Labs: Most recent lab work in 10/2021 AST and ALK wnl ALT up a bit from last blood work but overall stable Imaging: NA Pam Germain MD 04/22/2022 22:24 documented in this encounter Plan of Treatment Upcoming Encounters Date Type Department Care Team (Late st Contact Info) Description 01/31/2024 13:40 EDT Office Visit [facility] Surgical Oncology - [address] [phone] Maeve Morales, [address] [facility], [facility], [address] [place] [phone] documented as of this encounter Results * XR FINGER LEFT 2 OR MORE VIEWS (04/23/2022 10:27 EST) Anatomical Region Laterality Modality Upper Extremities Left Computed Radio graphy 04/23/2022 13:1 4 EST Impressions 04/23/2022 13:14 EST FINDINGS / IMPRESSION: Left thumb 3 views show no evidence for acute fracture or dislocation. Mild soft tissue swelling is noted. There are mild degenerative joint changes in the thumb. Narrative 04/23/2022 13:14 EST EXAM/TECHNIQUE: XR FINGER LEFT 2 OR MORE VIEWS ??04/23/2022 10:20 AM HISTORY: ?? injuried thumb in February, still painful and limited ROM COMPARISON: None. Procedure Note Daren Veronica MD - 04/23/2022 EXAM/TECHNIQUE: XR FINGER LEFT 2 OR MORE VIEWS 04/23/2022 10:20 AM HISTORY: injuried thumb in February, still painful and limited ROM COMPARISON: None. IMPRESSION FINDINGS / IMPRESSION: Left thumb 3 views show no evidence for acute fracture or dislocation.Mild soft tissue swelling is noted. There are mild degenerative jointchanges in the thumb. Pam Germain MD IMG DIAGNOSTIC IMAGI NG ORDERABLES documented in this encounter Visit Diagnoses Diagnosis Triple negative malignant neoplasm of breast (HCC-CMS)- Primary Thumb pain, left Injury of left thumb, initial encounter Thumb pain, left documented in this encounter Care Teams Fulling Mill Operator Relationship Specialty Start Date End Date Batsheva Lira FNP [address] [phone] PCP - General 02/19/20 07/21/22 Pam Germain MD 111 [facility], [address] [place] [phone] Medical Oncology 03/22/22 documented as of this encounter
--- OUTSIDE RECORDS SUMMARY | 2023-12-10 17:38 | XMS_ITS | Encounter Summary ---
Author Organization [facility] Address [address] [place] [address] Care Team Providers Care Store Administrative Assistant Name Role Phone Batsheva Lira JOHN Primary Care Provider [phone] Pam Germain MD Unavailable [phone] Reason for Visit * Reason Comments Follow-up Encounter Details Date Type Department Care Team (Late st Contact Info) Description 06/03/2022 9:40 EST Office Visit [facility] Surgical Oncology - [address] [phone] Maeve Morales, DO [address], [address] [place] [phone] Malignant 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, estrogen receptor negative (HCC-CMS) (Primary Dx) Social History Tobacco Use Types Packs/Day Years Used Date Smoking Tobacco: Former Cigarettes 0.5 30 0 09/17/1990 - 09/17/2020 Smokeless Tobacco: Never Tobacco Cessation:Counseling Given: Not Answered Comments:pt also vapes, once in awhile Alcohol [...] Sign Reading Time Taken Comments Blood Pressure 133/74 06/03/2022 0944 EST Pulse 75 06/03/2022 0944 EST Temperature 36.3 ??C (97.3 ??F) 06/03/2022 0944 EST Respiratory Rate - - Oxygen Saturation - - Inhaled Oxygen Concentration - - Weight - - Height - - Body Mass Index - - documented in this encounter Functional Status Functional [...] Progress Notes * Maeve Morales, DO - 06/03/2022 0940 EST Subjective: Patient ID: Austin Squires is an 46 y.o. female. No chief complaint on file. ANAMARIA Avila is seen in late 6-month follow-up for her left breast cancer. 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 This showed a concerning lesion in the upper pole of the left breast and biopsy returned back a nuclear grade 3 invasive ductal adenocarcinoma. This was a triple negative breast cancer.Because of the size and the triple negative phenotype Austin was initiated on neoadjuvant chemotherapy. She completed that chemotherapeutic regimen in November 2020 and went on to undergo bilateral skin sparing mastectomies and a left sentinel lymph node biopsy in December 2020. This was done with an immediate tissue lithographic retoucher apprentice reconstruction. Unfortunately her pathology did not show a significant response to the chemotherapy with her final tumor size measuring 2.5 cm with 0 of 2 lymph nodes positive. Because of the less than optimal response she was placed on 6 months of capecitabine which she just re cently completed. That medication made her feel fatigued and worn out and so she is quite happy to be done with it. Unfortunately in May of 2021 her right tissue lithographic retoucher apprentice unexpectedly ruptured and she had to go back to the OR to have it replaced. She has subsequently undergone implant reconstruction and is very happy with her cosmetic outcome. She will get her nipples done soon. She has been experiencing some neck pain and saw a chiropractor and now has some shoulder pain. Her family practice doctor gave her a steroid which is helping but she had questions about that today. Patient Active Problem List Diagnosis ??? 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 Breast cancer in female (HCC-CMS) (HCC) ??? Hepatic steatosis ??? Hypertension ??? History of anxiety Past Medical History: Diagnosis Date ??? Activity, other involving cardiorespiratory exercise just signed up for steps to wellness ??? Bladder incontinence ??? Cancer (HCC-CMS) (HCC) ??? Diabetes mellitus, type 2 (HCC) ??? Exercise involving housework ??? 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 ??? Head trauma 06/19/20 fell on ice. No loss of consciosness ??? History of chemotherapy ??? History of general anesthesia ??? History of kidney stones past 3 stone ??? Poor dentition ??? Urgency of urination stress inc. Past Surgical History: Procedure Laterality Date ??? CHOLECYSTECTOMY ??? OTHER SURGICAL HISTORY 1998, 2011 epidural with childbirth Family History Problem Relation Age of Onset ??? Lung Cancer Mother Social Social History Tobacco Use ??? Smoking status: Former Packs/day: 0.50 Years: 30.00 Pack years: 15.00 Types: Cigarettes Quit date: 09/17/2020 Years since quittin.7 ??? Smokeless tobacco: Never ??? Tobacco comments: pt also vapes, once in awhile Vaping Use ??? Vaping Use: Former ??? Substances: Nicotine (3mg or none) ??? Devices: Disposable Substance Use Topics ??? Alcohol use: Yes Comment: rarely ??? Drug use: Not Currently Current Outpatient Medications on File Prior to Visit Medication Sig Dispense Refill ??? docusate sodium (COLACE) 50 mg capsule Take 50 mg by mouth 2 times daily as needed for Constipation. (Patient not taking: No sig reported) ??? escitalopram oxalate (LEXAPRO) 10 mg tablet Take 20 mg by mouth daily. ??? metformin HCl (METFORMIN ORAL) Take by mouth. ??? traZODone (DESYREL) 50 mg tablet Take 50 mg by mouth daily. (Patient not taking: No sig reported) ??? UNABLE TO FIND 2 week steroid for arm pain No current facility-administered medications on file prior [...] and urgency. Musculoskeletal: Positive for joint pain (left shoulder) and myalgias. Neurological: Positive for tingling (from shoulder pain). Negative for sensory change, focal weakness and headaches. - See HPI Objective: BP 133/74 Pulse 75 Temp 36.3 ??C (97.3 ??F) (Temporal) LMP 07/03/2020 Physical Exam Constitutional: General: She is not [...] masses palpated in either breast mound. Ultrasound is undertaken of the left breastmound secondary to the patient's pain and sense of a nodule in the lateral aspect. There are no findings of concern on ultrasound or on physical exam and her lymph nodes appear normal in the left axilla. There are no axillary masses. Assessment: Austin is seen in the office today in late 6-month follow-up for her left breast cancer. She is doing well from the standpoint of this although she is concerned about some recent shoulder pain on thatleft side. She and I discussed the fact that if this were to persist for another month or so I think it is reasonable to get a bone scan. If it resolves completely with the steroids and conservative t reatment then she certainly does not need to do that. I will plan to see her back in 6 months for clinical exam. She is seeing Prema Honeycutt in July. Plan: (C50.212, Z17.1) Malignant 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, estrogen receptor negative (HCC-CMS) (HCC) (primary encounter diagnosis) Maeve Morales, DO Med Orders Placed This Visit and Additions to the Medication List Medications ??? UNABLE TO FIND Si week steroid for arm pain documented in this encounter Plan of Treatment Upcoming Encounters Date Type Department Care Team (Late st Contact Info) Description 01/31/2024 13:40 EDT Office Visit [facility] Surgical Oncology - [address] [address] Maeve Morales DO [address], [address] [place] [address] documented as of this encounter Procedures Procedure Name Priority Date/Time Associated Diagnosis Comments ORDERS - SCANNED 06/10/2022 11:45 EST documented in this encounter Results * ORDERS - SCANNED (06/10/2022 11:45 EST) 06/10/2022 11:4 5 EST Scan 2 Public Health Assistant ADMISSION ORDERABLE S documented in this encounter Visit Diagnoses Diagnosis Malignant 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, estrogen receptor negative (HCC-CMS)- Primary documented in this encounter Historical Medications * This list may reflect changes made after this encounter. Medication Sig Dispensed Refills Start Date End Date UNABLE TO FIND 2 week steroid for arm pain 07/22/2022 added in this encounter Care Teams Store Administrative Assistant Relationship Specialty Start Date End Date Batsheva Lira FNP [address] [place] [phone] PCP - General 02/19/20 07/21/22 Pam Germain MD [address] [facility] 2 [place] [address] Medical Oncology 03/22/22 documented as of this encounter
--- OUTSIDE RECORDS SUMMARY | 2023-12-10 17:38 | XMS_ITS | Encounter Summary ---
Author Organization [facility] Address [address] [place] [address] Care Team Providers Care Pesticide Control Inspector Name Role Phone Batsheva Lira JOHN Primary Care Provider [phone] Pam Germain MD Unavailable [phone] Reason for Visit * Reason Onset Date Comments Follow-up 07/02/2022 Encounter Details Date Type Department Care Team (Late st Contact Info) Description 07/02/2022 Telephone [facility] General Surgery - Main [place] [address], [place] [phone] Juanito Carcamo MD [address] [place] [phone] Follow-up Social History Tobacco Use Types Packs/Day Years [...] encounter Miscellaneous Notes * Telephone Encounter - Trina Daley - 07/02/2022 1111 EST Called pt changed surgery to 07/22 pre-op on 07/20. Will reach back out closer to surgery with time. documented in this encounter Plan of Treatment Upcoming Encounters Date Type Department Care Team (Late st Contact Info) Description 01/31/2024 13:40 EDT Office Visit [facility] Surgical Oncology - [address] [address] Maeve Morales, [address] [facility], [address] 2 [place] [phone] documented as of this encounter Visit Diagnoses Not on filedocumented in this encounter Care Teams Pesticide Control Inspector Relationship Specialty Start Date End Date Batsheva Lira FNP [address] [phone] PCP - General 02/19/20 07/21/22 Pam Germain MD [address] [facility], [facility], [address] [place] [phone] Medical Oncology 03/22/22 documented as of this encounter
--- OUTSIDE RECORDS SUMMARY | 2023-12-10 17:38 | XMS_ITS | Encounter Summary ---
Author Organization [facility] Address [address] [place] [address] Care Team Providers Care Global Cmo Name Role Phone Batsheva Lira JOHN Primary Care Provider [phone] Pam Germain MD Unavailable [phone] Reason for Visit * Reason Onset Date Comments Follow-up Diagnostic PSG 07/21/2022 Encounter Details Date Type Department Care Team (Late st Contact Info) Description 07/21/[address] [facility] General Surgery - Main [place] [address] [place] [address] Juanito Carcamo MD [address] [place] [phone] Follow-up Diagnostic PSG Social History Tobacco Use Types Packs/Day Years [...] * Telephone Encounter - Trina Daley - 07/21/2022 0850 EST Check in at 10:30 level three, Prep; NOTHING to eat after midnight, clears 2 hours prior to arrival documented in this encounter Plan of Treatment Upcoming Encounters Date Type Department Care Team (Late st Contact Info) Description 01/31/2024 13:40 EDT Office Visit [facility] Surgical Oncology - [address] [address] Maeve Morales, DO [address] [facility], [address] [place] [phone] documented as of this encounter Visit Diagnoses Not on filedocumented in this encounter Care Teams Global Cmo Relationship Specialty Start Date End Date Batsheva Lira FNP [address] [phone] PCP - General 02/19/20 07/21/22 Pam Germain MD [address] [facility], [facility] 2 [place] [phone] Medical Oncology 03/22/22 documented as of this encounter
--- OUTSIDE RECORDS SUMMARY | 2023-12-10 17:38 | XMS_ITS | Encounter Summary ---
Author Organization [facility] Address [address] [place] [address] Care Team Providers Care Crew Person Name Role Phone Pam Germain MD Unavailable [phone] Janay Duran APRN Primary Care Provider Unava ilable Reason for Visit * Reason Comments Post-OP Follow Up Bilateral nipple rec onstruction-07/22 Encounter Details Date Type Department Care Team (Latest Contact Info) Description 07/26/2022 14:00 EDT Post-op Visit [facility] - [address], [address] [place] [address] Anali Navas PA-C [address] [place] [phone] Breast pain (Primary Dx); Surgical follow-up care Social History Tobacco Use Types Packs/Day Years [...] No 12/24/2020 documented as of this encounter Ordered Prescriptions Prescription Sig Dispensed Refills Start Date End Da te sulfamethoxazole-trimetho prim (BACTRIM DS) 800-160 mg per tablet Take 1 Tablet by mouth every 12 hours for 7 days. 14 Tablet 07/26/2022 08/02/2022 documented in this encounter Progress Notes * Anali Navas PA-C - 07/26/2022 1400 EDT SUBJECTIVE: Austin Squires returns in follow up from bilateral nipple recon with right medial dog ear revision with Dr. Carcamo on 07/22/22. Last seen on 07/22/22. Austin called because she is concerned about some redness and swelling of the surgical site. Keflex taken as prescribed Nipple covers have remained in place Denies fevers, chills. Does admit to pruritis of the right breast. She has had some allergic reaction to adhesives in the past OBJECTIVE: On examination, in no distress. Incisions are well healing without dehiscence, there is some serosanguinous drainage of her right nipple incision. Bilateral erythema around the nipples and nipple rockwell. The right breast has a small area of purulence at the 5 o'clock position, once cultured and the purulence removed it leaks serosanguinous fluid. IMPRESSION: doing well PLAN: Culture of purulence sent to lab, abx changed to bactrim. Encouraging that the amount of purulence was small and then clear serosanguinous fluid. May be an allergic reaction to the adhesives of the nipple shield, changed the rockwell and now heldon with paper tape which pt does not react to. Provided with extra paper tape and informed to be careful with the rockwell since paper tape is not as strong as previous adhesive. FOLLOW UP: Tuesday with Dr. Carcamo F/U sooner for any concerns. Pt encouraged to call with any questions or concerns, informed that there is always someone healthcare network pricing consultant. Acute changes are asked to be reported. documented in this encounter Miscellaneous Notes * Addendum Note - Justice Barrientos - 07/26/2022 1400 EDTAddended by: JUSTICE BARRIENTOS on: 07/26/2022 18:34 Modules accepted: Orders documented in this encounter Plan of Treatment Upcoming Encounters Date Type Department Care Team (Late st Contact Info) Description 01/31/2024 13:40 EDT Office Visit [facility] Surgical Oncology - [address] [address] Maeve Morales, [address], [address] [place] [address] documented as of this encounter Procedures Procedure Name Priority Date/Time Associated Diagnosis Comments BACTERIAL CULTURE/SMEAR Routine 07/26/2022 14:37 EDT Breast pain Surgical follow-up care documented in this encounter Results * (ABNORMAL) BACTERIAL CULTURE/SMEAR (07/26/2022 14:37 EDT) Organism ID No Growth 07/28/2022 8:32 EDT [facility] Smear Many Neutrophils Present(A) 07/28/2022 8:32 EDT [facility] Smear No bacteria seen(A) 07/28/2022 8:32 EDT [facility] Swab ACCESSORY NIPPLE / Unknown 07/26/2022 14:37 EDT 07/26/2022 14:37 EDT Anali Navas PA-C MICROBIOLOGY - GEN ERAL ORDERABLES [facility] [address] [place] [address] documented in this encounter Visit Diagnoses Diagnosis Breast pain- Primary Mastodynia Surgical follow-up care Follow-up examination, following unspecified surgery documented in this encounter Discontinued Medications Medication Sig Discontinue Reason Start Date End Da te HYDROmorphone (DILAUDID) 2 mg tablet Take 1 Tablet by mouth every 4 hours as needed for Pain. Daily Max: 12 mg Therapy completed 07/22/2022 07/26/2022 cephalexin (KEFLEX) 500 mg capsule Take 1 Capsule by mouth every 6 hours for 5 days. Alternate therapy 07/22/2022 07/26/2022 documented as of this encounter Care Teams Crew Person Relationship Specialty Start Date End Date Janay Duran APRN [address] [place] [phone] PCP - General Family Medicine - Primary Care 07/22/22 Pam Germain MD [address] [phone] Medical Oncology 03/22/22 documented as of this encounter
--- OUTSIDE RECORDS SUMMARY | 2023-12-10 17:38 | XMS_ITS | Encounter Summary ---
Author Organization [facility] Address [address] [place] [address] Care Team Providers Care Measurement Superintendent Name Role Phone Batsheva Lira JOHN Primary Care Provider [phone] Pam Germain MD Unavailable [phone] Reason for Visit * Reason Onset Date Comments Appointment Related 03/26/2022 Encounter Details Date Type Department Care Team (Late st Contact Info) Description 03/26/2022 Telephone [facility] Surgical Oncology - [address] [phone] Maeve Morales, DO 111 [facility], [facility] 2 [place] [phone] Appointment Related Social History Tobacco Use Types [...] * Telephone Encounter - Yulissa Pedroza - 03/26/2022 1151 EST Gave pt a call to offer her a sooner appt off of Dr. Morales's wait list While on the phone with the patient she accepted an opening on: 04/16/2022 @ 4:20pm Yulissa Pedroza 03/26/2022 11:52 documented in this encounter Plan of Treatment Upcoming Encounters Date Type Department Care Team (Late st Contact Info) Description 01/31/2024 13:40 EDT Office Visit [facility] Surgical Oncology - [facility] [address] [place], [place] [phone] Maeve Morales, 111 [facility], [facility], [address] [place] [address] documented as of this encounter Visit Diagnoses Not on filedocumented in this encounter Care Teams Measurement Superintendent Relationship Specialty Start Date End Date Batsheva Lira FNP [address] [phone] PCP - General 02/19/20 07/21/22 Pam Germain MD [address] [place] [address], [facility] 2 [place] [phone] Medical Oncology 03/22/22 documented as of this encounter
--- OUTSIDE RECORDS SUMMARY | 2023-12-10 17:38 | XMS_ITS | Encounter Summary ---
Author Organization [facility] Address [address] [place] [address] Care Team Providers Care Flight Control Tower Operator Name Role Phone Batsheva Lira JOHN Primary Care Provider [phone] Pam Germain MD Unavailable [phone] Reason for Referral * Radiology Services (Routine/Next Available) - Authorization Not Required Specialty Diagnoses / Procedures Referred By Contac t Referred To Contact Radiology Diagnoses Radiculopathy, cervical region Procedures MR CERVICAL SPINE WO Daren Guzman MD [address] [place] [id number] [facility] Referral ID Status Reason Start Date Expiration Date Visits Requested Visits Authorized [id number] Authorization Not Required 06/24/2022 1 1 Reason for Visit * Radiology Services (Routine/Next Available) - Authorization Not Required Specialty Diagnoses / Procedures Referred By Contac t Referred To Contact Radiology Diagnoses Radiculopathy, cervical region Procedures MR CERVICAL SPINE Daren Hughes MD [address] [place] [address] [facility] Referral ID Status Reason Start Date Expiration Date Visits Requested Visits Authorized [id number] Authorization Not Required 06/24/2022 1 1 Encounter Details Date Type Department Care Team (Latest Contact Info) Description 07/01/2022 7:39 EST - 07/01/2022 23:59 EST Hospital [facility] Rad[facility] - [facility] [address] [place] [address] Radiculopathy, cervical region Discharge Disposition: Home or Self Care Social [...] for 5 days. 20 Capsule 07/22/2022 07/26/2022 docusate sodium (COLACE) 50 mg capsule Take 50 mg by mouth 2 times daily as needed for Constipation. 07/22/2022 escitalopram oxalate (LEXAPRO) 10 mg tablet Take 30 mg by mouth daily. 12/03/2022 HYDROmorphone (DILAUDID) 2 mg tablet Take 1 Tablet by mouth every 4 hours as needed for Pain. Daily Max: 12 mg 5 Tablet 07/22/2022 07/26/2022 metformin HCl (METFORMIN ORAL) Take by mouth. traZODone (DESYREL) 50 mg tablet Take 50 mg by mouth as needed. 12/03/2022 UNABLE TO FIND 2 week steroid for arm pain 07/22/2022 documented as of this encounter Discharge Disposition Disposition Code Departure Means Destination Home or Self Care documented in this encounter Plan of Treatment Upcoming Encounters Date Type Department Care Team (Late st Contact Info) Description 01/31/2024 13:40 EDT Office Visit [facility] Surgical Oncology - [address] [id number] Maeve Morales, 111 [facility], Level 2 [place] [address] documented as of this encounter Procedures Procedure Name Priority Date/Time Associated Diagnosis Comments MR CERVICAL SPINE WO CONTAST Routine 07/01/2022 8:25 EST Radiculopathy, cervical region documented in this encounter Results * MR CERVICAL SPINE WO CONTRAST (07/01/2022 8:25 EST) Anatomical Region Laterality Modality Spine Magnetic Resonan ce 07/01/2022 11:0 9 EST Impressions 07/01/2022 11:09 EST Neural foraminal stenosis at C5-C6 secondary to uncovertebral hypertrophy, severe on the left and moderate on the right. Narrative 07/01/2022 11:09 EST EXAM: MRI CERVICAL SPINE WO CONTRAST HISTORY: Persistent cervical radiculopathy despite concervative rx. ??H/o breast CA. TECHNIQUE: MRI of the cervical spine without contrast. Structured report code: NR.[id number] COMPARISON: CT cervical spine 06/19/2020. FINDINGS: SURGICAL CHANGES: None. ALIGNMENT: Straightening of lordosis without significant spondylolisthesis. BONES: No significant vertebral body height loss. No concerning lesions. INTERVERTEBRAL DISCS: C5-C6 predominant disc degeneration. No evidence of discitis. SPINAL CANAL AND SPINAL CORD: No abnormal cord signal intensity. No fluid collections. VISIBLE EXTRASPINAL SOFT TISSUES AND INTRACRANIAL CONTENTS: Redemonstrated retention cyst in the left sphenoid sinus. EVALUATION BY LEVEL: C1-C2: No concerning abnormality. No spinal canal stenosis. C2-C3, C3-C4: Minor degenerative changes; no spinal canal or neural foraminal stenosis. C4-C5: Disc osteophyte complex, slight bilateral uncovertebral hypertrophy. Minor degenerative facet arthropathy. Mild neural foraminal stenosis on the right. No significant neural foraminal stenosis on the left. No significant spinal canal stenosis. C5-C6: Disc osteophyte complex, bilateral uncovertebral hypertrophy, minor degenerative facet arthropathy. Severe left, moderate right neural foraminal stenosis. Mild spinal canal stenosis with flattening of the ventral thecal sac and slight ventral cord flattening. C6-C7: Minor degenerative changes; no spinal canal or neural foraminal stenosis. C7-T1, T1-T2: No concerning abnormality. No spinal canal or neural foraminal stenosis. Procedure Note Justice Lugo MD - 07/01/2022 EXAM: MRI CERVICAL SPINE WO CONTRAST HISTORY: Persistent cervical radiculopathy despite concervative rx. H/obreast CA. TECHNIQUE: MRI of the cervical spine without contrast. Structured reportcode: [id number].[id number] COMPARISON: CT cervical spine 06/19/2020. FINDINGS: SURGICAL CHANGES: None. ALIGNMENT: Straightening of lordosis without significant spondylolisthesis. BONES: No significant vertebral body height loss. No concerning lesions. INTERVERTEBRAL DISCS: C5-C6 predominant disc degeneration. No evidence of discitis. SPINAL CANAL AND SPINAL CORD: No abnormal cord signal intensity. No fluid collections. VISIBLE EXTRASPINAL SOFT TISSUES AND INTRACRANIAL CONTENTS: Redemonstrated retention cyst in the left sphenoid sinus. EVALUATION BY LEVEL: C1-C2: No concerning abnormality. No spinal canal stenosis. C2-C3, C3-C4: Minor degenerative changes; no spinal canal or neuralforaminal stenosis. C4-C5: Disc osteophyte complex, slight bilateral uncovertebralhypertrophy. Minor degenerative facet arthropathy. Mild neural foraminalstenosis on the right. No significant neural foraminal stenosis on theleft. No significant spinal canal stenosis. C5-C6: Disc osteophyte complex, bilateral uncovertebral hypertrophy, minordegenerative facet arthropathy. Severe left, moderate right neuralforaminal stenosis. Mild spinal canal stenosis with flattening of theventral thecal sac and slight ventral cord flattening. C6-C7: Minor degenerative changes; no spinal canal or neural foraminalstenosis. C7-T1, T1-T2: No concerning abnormality. No spinal canal or neuralforaminal stenosis. IMPRESSION Neural foraminal stenosis at C5-C6 secondary to uncovertebral hypertrophy,severe on the left and moderate on the right. Daren Larios MD IMG MRI ORDERABLE S documented in this encounter Visit Diagnoses Diagnosis Radiculopathy, cervical region Brachial neuritis or radiculitis nos documented in this encounter Care Teams Flight Control Tower Operator Relationship Specialty Start Date End Date Batsheva Lira FNP [address] [phone] PCP - General 02/19/20 07/21/22 Pam Germain MD 111 [facility] 2 [place] [address] Medical Oncology 03/22/22 documented as of this encounter
--- OUTSIDE RECORDS SUMMARY | 2023-12-10 17:38 | XMS_ITS | Encounter Summary ---
Author Organization [facility] Address [address] [place] [address] Care Team Providers Care Oracle Technical Developer Name Role Phone Batsheva Lira JOHN Primary Care Provider [phone] Pam Germain MD Unavailable [phone] Reason for Referral * PT/OT/ST (STAT) - New Request Specialty Diagnoses / Procedures Referred By Jen gonzáles Referred To Contact Rehab Therapies Diagnoses Sprain of interphalangeal joint of left thumb, initial encounter Numbness and tingling in both hands Giovany Valverde PA-C [address] [place] [phone] [facility] [address] [place] [id number] Referral ID Status Reason Start Date Expiration Date Visits Requested Visits Authorized [id number] New Request Specialty Services Required 2 1 1 Question Answer Reason for Request: Please treat with a thumb-based splint immobilizing the IP joint of the left thumb. Comments Patient can start doing some light range of motion in the next 2 to 3 weeks. Reason for Visit * Reason Comments Pain * Consult (Routine/Next Available) - Receiving Office to Obtain Authorization Specialty Diagnoses / Procedures Referred By Contac t Referred To Contact Orthopedic Surgery Diagnoses Injury of left thumb, sequela Marcellus, Pam Sunshine MD 111 [facility], [facility], Level 2 [place] [address] [facility] Ortho Upper Extremity [address] [place] [address] Referral ID Status Reason Start Date Expiration Date Visits Requested Visits Authorized [id number] Receiving Office to Obtain Authorization Specialty Services Required 2 1 1 Encounter Details Date Type Department Care Team (Latest Contact Info) Description 05/11/2022 14:30 EST Office Visit [facility] Upper Extrem[facility] - [address] [place] [address] Giovany Valverde PA-C [address] [place] [address] Sprain of interphalangeal joint of left thumb, initial encounter (Primary Dx); Numbness and tingling in both hands Social History Tobacco Use Types Packs/Day Years [...] as of this encounter Progress Notes * Giovany Valverde PA-C - 05/11/2022 1430 EST PROBLEM: Left thumb injury, February 2022, and complaint of numbness and tingling in both hands SUBJECTIVE: Austin Squires is a 46 y.o. right hand dominant female with past medical history significant for breast cancer status post mastectomy and chemotherapy who presents to the office today for evaluation of a left thumb injury suffered in February 2022 when her thumb was struck by the string of crossbow while hunting. She had immediate pain swelling and bruising which she self treated. She reports that her symptoms improved however not completely. Over the past month she has had progressively worsening pain which she localizes to the ulnar aspect of the left thumb IP joint which is aggravated with activity or direct pressure. She mentioned this problem to her raw products director/oncologist in April 2022 during a routine appointment, and x-rays of the left thumb were ordered and obtained on 04/23/2022, and demonstrated no evidence of acute fracture. She would also like to just a complaintof bilateral hand pain and occasional paresthesias. She has been previously diagnosed with carpal tunnel syndrome by her primary care provider and has been prescribed meloxicam for this. She reports symptoms that are worsened by certain positions while sleeping and while driving. She relieves her symptoms by shaking of her hands. She reports occasional decreased sensation in the whole hand bilaterally. A 10-point review of systems has been reviewed from the new patient intake sheet and all are negative. At today's encounter the new patient intake sheet was reviewed in the office by myself, signed, dated, and scanned into the patient's chart. The past medical, family and social history have been reviewed in the patient chart. She is a current non-smoker. 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 She lives at home with her boyfriend. She is a diabetic and the most recent HgbA1C on 11/22/2020 was 8.1. Past Medical History: Diagnosis Date ??? Activity, other involving cardiorespiratory exercise just signed up for steps to wellness ??? Bladder incontinence ??? Cancer (HCC-CMS) (HCC) ??? Diabetes mellitus, type 2 (HCC) ??? Exercise involving housework ??? Exercise involving walking july till february- runs [id number]- very active. ??? Head trauma 06/19/20 fell on ice. No loss of consciosness ??? History of chemotherapy ??? History of general anesthesia ??? History of kidney stones past 3 stone ??? Poor dentition ??? Urgency of urination stress inc. Past Surgical History: Procedure Laterality Date ??? CHOLECYSTECTOMY ??? OTHER SURGICAL HISTORY 1998, 2011 epidural with childbirth Outpatient Encounter Medications as of 05/11/2022 Medication Sig Dispense Refill ??? docusate sodium [...] mg by mouth daily. (Patient not taking: Reported on 04/23/2022) No facility-administered encounter medications on file as of 05/11/2022. OBJECTIVE: LMP 07/03/2020 On physical exam, the patient is found to be a pleasant and cooperative female. Psych: She is alert and oriented x 3 with normal affect. Constitutional: She is well-developed and in no significant distress. Skin: On examination of the left thumb and bilateral wrists the skin is intact. Hem: There is no visible ecchymosis. Msk: Focused extremity examination: Inspection of the patient's left thumb does not reveal any noticeable swelling or deformity. She has full active range of motion in the left thumb at the IP and MCP joint. She does have some discomfort which she localizes to the ulnar aspect of the IP joint during maximal flexion and with direct pressure. No crepitus is felt in the thumb IP joint during active and passive range of motion. No instability of the IP joint collateral ligaments is noted with isolated testing. Inspection of the patient's bilateral wrists does not reveal any noticeable swelling over the carpal tunnels. There is no tenderness to palpation over the carpal tunnels. No thenar or hypothenar atrophy is observed bilaterally. She has 5 out of 5 strength in the bilateral APB, EPL, and first dorsal interosseous. Tinel test negative over the bilateral carpal tunnels. Carpal compressiontest is positive after 1 minute of compression for increasing numbness and tingling in the bilateral thumb, index, and middle fingers. Neuro-vascularly: Sensation intact in both hands without pallor or cyanosis observed. DIAGNOSTICS: X-rays of the patient's left thumb obtained on 04/23/2022 was reviewed by myself in theoffice today. Formal radiographic report is copied below. Left thumb 3 views show no evidence for acute fracture or dislocation. Mild soft tissue swelling isnoted. There are mild degenerative joint changes in the thumb. ASSESSMENT: Austin Squires is a 46-year-old [id number]-[id number] female with a left thumb IP joint sprain from bow hunting incident in February 2022. She also has bilateral hand pain and paresthesias which I believe is likely carpal tunnel syndrome however could also represent a condition such as earlyosteoarthritis or other inflammatory arthropathy. At today's encounter I had a good discussion withher regarding her left thumb injury. I explained that radiographs taken on April 23, 2022 did notshow any evidence of acute fracture therefore I suspect that this is irritation of the ulnar collateral ligament of the IP joint. I explained that this could be treated with a splint to help rest thethumb for a couple of weeks followed by light range of motion. With regards to her bilateral hand pain and paresthesias I explained the diagnosis of carpal tunnel syndrome. I reviewed anatomy with her in the office today. I discussed treatment options to include use of nonsteroidal anti-inflammatories, splinting, steroid injections. PLAN: 1. After considering her treatment options today Austin is happy to be seen by hand therapy to be fitted with a small thumb-based splint to immobilize the IP joint. She will wear the splint for around2 weeks time followed by progressive splint weaning and range of motion as tolerated with the left thumb. For her bilateral hand pain and paresthesias, we will start with cock up wrist braces which she can procure today through Ortho [facility]. She will wear these during the nighttime. 2. Follow-up in 4 to 6 weeks 3. Today all questions were answered, the patient indicates understanding, and agrees with the plan. I spent a total of 35 minutes on the date of this encounter meeting with the patient and reviewing documentation/coordinating care as described in the above note. No procedures were performed at the time of the visit. Dr. Gomez was the attending physician available in the clinic today if needed. A consultation was not required. This note was prepared using voice recognition software and the EMR. There may be inadvertent errors and omissions. SOCORRO Pereyra 05/11/2022 documented in this encounter Plan of Treatment Upcoming Encounters Date Type Department Care Team (Late st Contact Info) Description 01/31/2024 13:40 EDT Office Visit [facility] Surgical Oncology - [address] [id number] Maeve Morales, DO 111 [facility], [facility], [address] [place] [phone] Scheduled Referrals Name Type Priority Associated Diagnoses Orde r Schedule AMB CONS/FOLLOW UP HAND THERAPY Outpatient Referral STAT Sprain of interphalangeal joint of left thumb, initial encounter Numbness and tingling in both hands Expected: 05/11/2022 (Approximate), Expires: 05/11/2023 documented as of this encounter Visit Diagnoses Diagnosis Sprain of interphalangeal joint of left thumb, initial encounter- Primary Numbness and tingling in both hands documented in this encounter Orders Equipment Count Last Ordered Date First Orde red Date COCK-UP WRIST SPLINT (L3908) 1 05/11/2022 documented in this encounter Care Teams Oracle Technical Developer Relationship Specialty Start Date End Date Batsheva Lira FNP [address] [phone] PCP - General 02/19/20 07/21/22 Pam Germain MD 111 [facility] 2 [place] [address] Medical Oncology 03/22/22 documented as of this encounter
--- OUTSIDE RECORDS SUMMARY | 2023-12-10 17:38 | XMS_ITS | Encounter Summary ---
Author Organization [facility] Address [address] [place] [address] Care Team Providers Care Lead Designer Name Role Phone Batsheva Lira JOHN Primary Care Provider [phone] Pam Germain MD Unavailable [phone] Encounter Details Date Type Department Care Team (Latest Contact Info) Description 07/19/2022 16:15 EST - 07/19/2022 23:59 EST Hospital Encounter [facility] Main [place] Pre-Surgical Testing [address] [place], [place] [phone] Discharge Disposition: Home or Self Care Social [...] Sign Reading Time Taken Comments Blood Pressure - - Pulse - - Temperature - - Respiratory Rate - - Oxygen Saturation - - Inhaled Oxygen Concentration - - Weight 77.1 kg (170 lb) 07/19/2022 1547 EST Height 167.6 cm (5' 6) 07/19/2022 1547 EST Body Mass Index 27.44 07/19/2022 1547 EST documented in this encounter Functional Status [...] Visit [facility] Surgical Oncology - [facility] [address] [place], [place] [phone] Maeve Morales, 111 [facility] 2 [place] [phone] documented as of this encounter Visit Diagnoses Not on filedocumented in this encounter Care Teams Lead Designer Relationship Specialty Start Date End Date Batsheva Lira FNP [address] [phone] PCP - General 02/19/20 07/21/22 Pam Germain MD 111 [facility] 2 [place] [phone] Medical Oncology 03/22/22 documented as of this encounter
--- OUTSIDE RECORDS SUMMARY | 2023-12-10 17:38 | XMS_ITS | Encounter Summary ---
Author Organization [facility] Address [address] [place] [address] Care Team Providers Care Office Communication Professor Name Role Phone Pam Germain MD Unavailable [phone] Janay Duran APRN Primary Care Provider Unava ilable Reason for Referral * Radiology Services (Routine/Next Available) - Authorization Not Required Specialty Diagnoses / Procedures Referred By Contsharlene t Referred To Contact Diagnoses Cervical radiculopathy Procedures XR CERVICAL SPINE 4-5 VIEWS Briseyda Gilliam NP [address] [place] [phone] [facility] Referral ID Status Reason Start Date Expiration Date Visits Requested Visits Authorized [id number] Authorization Not Required 07/26/2022 1 1 Encounter Details Date Type Department Care Team (Late st Contact Info) Description 07/26/2022 Orders Only [facility]surgery - [address] [address] Briseyda Gilliam NP [address] [address] Cervical radiculopathy (Primary Dx) Social History Tobacco Use Types [...] Info) Description 01/31/2024 13:40 EDT Office Visit [facility] Surgical Oncology - [address] [phone] Maeve Morales, [address] [place] [address], [facility], Level [address] [place] [address] documented as of this encounter Results * XR CERVICAL SPINE [...] in this encounter Visit Diagnoses Diagnosis Cervical radiculopathy- Primary Brachial neuritis or radiculitis nos Cervical radiculopathy Brachial neuritis or radiculitis nos documented in this encounter Care Teams Office Communication Professor Relationship Specialty Start Date End Date Janay Duran APRN 111 [facility], Level [address] [place] [address] PCP - General Family Medicine - Primary Care 07/22/22 Pam Germain MD 111 [facility], [facility] 2 [place] [phone] Medical Oncology 03/22/22 documented as of this encounter
--- OUTSIDE RECORDS SUMMARY | 2023-12-10 17:38 | XMS_ITS | Encounter Summary ---
Author Organization [facility] Address [address] [place] [address] Care Team Providers Care Weed Science Research Technician Name Role Phone Pam Germain MD Unavailable [phone] Janay Duran APRN Primary Care Provider Unava ilable Reason for Visit * Reason Comments Follow-up Encounter Details Date Type Department Care Team (Late st Contact Info) Description 08/02/2022 9:00 EDT Office Visit [facility] Plastic, Reconstructive & Cosmetic Surgery - [address], [address] [place] [address] Oksana Wilkins PA-C [address] [place] [phone] Surgery follow-up (Primary Dx) Social History [...] for 7 days. 14 Tablet 08/02/2022 08/09/2022 documented in this encounter Progress Notes * Oksana Wilkins PA-C - 08/02/2022 0900 EDT SUBJECTIVE: Austin Squires returns in follow up from bilateral nipple recon with right medial dog ear revision with Dr. Carcamo on 07/22/22. Last seen on 07/30/22. Austin completed her Bactrim script yesterday. Today she reports that the redness has lessened and it is less itchy. Pertinent negatives: fever/chills, fatigue, N/V/D. OBJECTIVE: On examination, in no distress. Decreased inflammation of skin to breast skin and nippleflaps present. Implants soft. No active drainage. Culture from 07/26/22 Many Neutrophils Present No bacteria seen IMPRESSION: Improvement in condition PLAN: Refill of Bactrim for prophylaxis. Pt advised that she is to continue Bactrim as prescribed due to weakened skin barrier caused by this inflammation. She is advised to take Benadryl to combat itch. Recommend that no bra or tight fitting clothing is worn until the inflammation abates. No topicals (including soap, body wash, lotion). FOLLOW UP: Follow up on of this week Oksana Wilkins PA-C 08/02/2022 9:29 documented in this encounter Plan of Treatment Upcoming Encounters Date Type Department Care Team (Late st Contact Info) Description 01/31/2024 13:40 EDT Office Visit [facility] Surgical Oncology - [address] [phone] Maeve Morales DO [address] [phone] documented as of this encounter Visit Diagnoses Diagnosis Surgery follow-up- Primary Follow-up examination, following unspecified surgery documented in this encounter Discontinued Medications Medication Sig Discontinue Reason Start Date End Da te sulfamethoxazole-trimeth oprim (BACTRIM DS) 800-160 mg per tablet Take 1 Tablet by mouth every 12 hours for 7 days. Reorder 07/26/2022 08/02/2022 documented as of this encounter Care Teams Weed Science Research Technician Relationship Specialty Start Date End Date Janay Duran APRN [address] [place] [phone] PCP - General Family Medicine - Primary Care 07/22/22 Pam Germain MD [address] [place] [phone] Medical Oncology 03/22/22 documented as of this encounter
--- OUTSIDE RECORDS SUMMARY | 2023-12-10 17:38 | XMS_ITS | Encounter Summary ---
Author Organization [facility] Address [address] [place] [address] Care Team Providers Care Stockroom Helper Name Role Phone Pam Germain MD Unavailable [phone] Janay Duran TELEVISION REPAIRMAN Primary Care Provider Unava ilable Reason for Visit * Auth/Cert (Routine) Specialty Diagnoses / Procedures Referred By Contac t Referred To Contact Diagnoses 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, estrogen receptor negative, unspecified laterality (HCC-CMS) Procedures AR NIPPLE/AREOLA RECONSTRUCTION AR GRAFTING OF AUTOLOGOUS FAT BY LIPO 50 CC OR LESS AR RECMPL WND TRUNK 2.6-7.5 CM AR REP,SKIN,TRUNK,CMPLX,+5 CM/< BILATERAL NIPPLE RECONSTRUCTION WITH POSSIBLE FAT GRAFTING and bilateral medial dog ear revision GRAFTING OF AUTOLOGOUS FAT HARVESTED BY LIPOSUCTION TECHNIQUE TO TRUNK, BREASTS, SCALP, ARMS AND/OR LEGS; 50CC OR LESS INJECTATE REPAIR, LACERATION, TORSO, COMPLEX REPAIR, LACERATION, TORSO Referral ID Status Reason Start Date Expiration Date Visits Re quested Visits Authorized [id number] 1 1 Encounter Details Date Type Department Care Team (Late st Contact Info) Description 07/22/2022 13:07 EST Anesthesia Event [facility] [place] [address] [place] [address] Elizabeth Rodríguez MD 111 [facility], [address] [place] [address] Emelina Guillermo, WALLPAPER INSPECTOR AND SHIPPER 111 [facility], [address] [place] [address] Anesthesia Record Procedure Summary Procedure Name Responsible Anesthesiologist Anesthesia Start Time Anesthesia Stop Time BILATERAL NIPPLE RECONSTRUCTION AND RIGHT MEDIAL DOG EAR REVISION (Bilateral: Nipple) Elizabeth Rodríguez MD 07/22/22 1307 07/22/22 1618 Events Date Time Event Comment 07/22/2022 1307 An Start The patient was re-evaluated immediately before moderate or deep sedation use, before anesthesia induction, or before the anesthesia procedure. 1307 An Start Data 1313 An Induction The patient was reevaluated immediately before moderate or deep sedation use and before anesthesia induction. 1315 An Intubation 1319 Anesthesia Ready 1353 Incision 1606 An Extubation Patient suctio shon. Neuromuscular blockade reversed. Full TOF. Purposeful movement. Patient following commands. Spontaneous ventilation resumed. Airway device removed and Extubated per criteria. Transported in supine position with HOB elevated to PACU on nasal canula. 1610 an stop data 1618 Handoff to RN I completed my handoff to the receiving nurse during which we: 1. Identified the patient 2. Identified the responsible provider 3. Reviewed the pertinent medical history 4. Discussed the surgical course 5. Reviewed intra-op anesthesia management and issues during anesthesia 6. Set expectations for post-procedure period 7. Allowed opportunity for questions and acknowledgement of understanding. 1618 An Stop Meds Name Total dexaMETHasone (DECADRON) injection 4 mg/ mL (for IV doses up to 10mg) 4 mg ePHEDrine pre-filled syringe 10 mg fentanyl citrate (PF) injection 100 mcg ketAMINE 5 mL prefilled syringe 50 mg midazolam (versed) 1 mg/mL 2 mL vial 2 m g ondansetron (PF) (ZOFRAN) injection 4 mg lidocaine 2% (PF) injection glass vial 1 00 mg phenylephrine pre-filled syringe 50 mcg propOFol (DIPRIVAN) injection 1,596,925 mcg rocuronium 10 mg/mL vial 100 mg sugammadex 100 mg/mL 2 mL vial 170 mg ceFAZolin (ANCEF) syringe 2 g 2 g indocyanine green 25 mg injection 10 mg lactated ringers (LR) infusion 950 mL * Agents Name Insp Sevoflurane Exp Sevoflurane O2 N2O Air * Blood No blood administrations on file. Lines, Drains, and Airways Type Details Placement Removal IVAD Single Port 08/08/20; 1002; Bard ; Valved; Right Chest, Internal Jugular; IR/Fluoro Guided, Ultrasound Guided; 8; 1% Lido, Sub Q; 2% Chlorhexidine with IPA, 70% IPA; Power Inject; Right Atrium; [id number]; [id number] 08/08/20 1002 by Estrella Westbrook RN Wound 01/11/22; 1102; Inci vu; Right; Breast; s/p breast reconstruction, removal of tissue radial drill press operator for plastic with placement of silicone implant and fat grafting; horizontal incision with multiple puncture sites; N; Full thickness 01/11/22 1102 by Naz Gonzales RN Wound 01/11/22; 1103; Inci vu; Left; Breast; s/p breast reconstruction, removal of tissue radial drill press operator for plastic with placement of silicone implant and fat grafting; horizontal incision with multiple puncture sites; N; Full thickness 01/11/22 1103 by Naz Gonzales RN Wound 01/11/22; 1104; Inci vu; Abdomen; multiple puncture sites s/p fat graft harvest; N; Full thickness 01/11/22 1104 by Naz Gonzales RN Wound 07/22/22; Incision; Right; Chest 07/22/22 0000 by Audrey Britton RN Wound 07/22/22; Incision; Left; Chest 07/22/22 0000 by Audrey Britton RN Peripheral IV 07/22/22; 1145; 07/14 11/05; 20; 1.25; B Galloway Introcan; Anterior, Proximal, Right; Forearm; Inserted by RN; 2; None; 2% Chlorhexidine with IPA; 07/22/22; 1758; Discharged; No complications, Catheter intact 07/22/22 1145 by Ned Kelly RN 07/22/22 1758 by Stanley Bennett RN Non-Surgical Airway 07/22/22; 1324 ([email or web address] via procedure documentation); 07/22/22; 1606 07/22/22 1324 by Emelina Guillermo WALLPAPER INSPECTOR AND SHIPPER 07/22/22 1606 by Salome Marin CRNA Urethral Catheter 07/22/22; 1326; Inse rted by RN; Intraoperative monitoring; 16 fr; 10 ml; Yes; 07/22/22; 1558; Per order 07/22/22 1326 by Audrey Britton RN 07/22/22 1558 by Audrey Britton RN documented in this encounter Social History Tobacco [...] No 12/24/2020 documented as of this encounter OR Notes * Anesthesia Postprocedure Evaluation - Salome Marin CRNA - 07/22/2022 1619 EST Patient: Austin qSuires Vital signs were reviewed with the recovery nurse. Complete vitals history is available in the [facility]. Vitals Value Taken Time BP 122/81 07/22/22 1615 Temp 36 ??C (96.8 ??F) 07/22/22 1615 Resp 15 07/22/22 1618 Pulse From Oximetry 82 BPM 07/22/22 1618 SpO2 96 % 07/22/22 1618 Heart Rate 81 BPM 07/22/22 1618 Vitals shown include unvalidated device data. Last Pain Score - Numeric Pain Level (Scale 1-10): 0 Type of Anesthesia - general Anesthesia Post Evaluation Post-procedure vitals reviewed and are stable. Level of consciousness: sedated Temperature status: normothermia Respiratory status: airway patent, nasal cannula and O2 Sat-appropriate for condition Cardiovascular status: acceptable, stable and appropriate for condition Hydration status: adequate Nausea/Vomiting: none Pain management: adequate Post-Op Assessment: patient tolerated procedure well with no complications Patient participation: unable to participate due to sedation Disposition: outpatient/home Anesthesia Complications: No apparent anesthesia complications * Anesthesia Procedure Notes - Emelina Guillermo CRNA - 07/22/2022 1324 EST Associated Order(s): Airway Airway Date/Time: 07/22/2022 13:15 Urgency: elective Airway not difficult General Information and Staff Patient location during procedure: OR Resident/WALLPAPER INSPECTOR AND SHIPPER: Emelina Guillermo CRNA Performed: resident/WALLPAPER INSPECTOR AND SHIPPER/AA Indications and Patient Condition Indications for airway management: anesthesia Sedation level: GA Preoxygenated: yes Patient position: sniffing Ventilation assessment: 1 - Easy Final Airway Details Final airway type: endotracheal airway Successful airway: ETT Cuffed: yes Successful intubation technique: direct laryngoscopy Facilitating devices/methods: intubating stylet Endotracheal tube insertion site: oral Blade: Thanh Blade size: #3 ETT size (mm): 7.5 Cormack-Lehane Classification: grade IIa - partial view of glottis Placement verified by: chest auscultation and capnometry Measured from: teeth ETT to teeth (cm): 21 Number of attempts at approach: 1 Ventilation between attempts: none Number of other approaches attempted: 0 * Anesthesia Preprocedure Evaluation - Elizabeth Rodríguez MD - 07/22/2022 1214 EST Anesthesia Preprocedure Evaluation 46 yo female for bilateral nipple reconstruction with possible fat grafting. Patient Medical History, including Anesthesia History reviewed. Chart and Nursing Notes reviewed, including NPO status and Medication History. Additional ROS/History Findings: Allergies Allergen Reactions ??? Ondansetron Other (See Comments) Dose to be limited to under 16mg daily while on Lexapro as EKG showed QTC as 0.4 ??? Oxycodone Other (See Comments) Made her hyper ??? Wound Dressings Sorbaview (pt states port-a-cath dressing with white border causes skin issues). Review of Systems HENT: Hx TMJ Respiratory: Former Tobacco; Quit 09/2020 Psychiatric/Behavioral: The patient is nervous/anxious. Past Medical History: Diagnosis Date ??? Activity, other involving cardiorespiratory exercise Noted 07/19/2022: stretching exercises and weights ??? Anxiety Noted 07/19/2022: controlled w/ meds ??? Back pain Noted 07/19/2022: degenerative disc disease ??? Bladder incontinence ??? Cancer ([facility]) ([facility]) Noted 07/19/2022: breast ??? Diabetes mellitus, type 2 ([facility]) Noted 07/19/2022: not currently on meds, last [...] syndrome ??? Urgency of urination stress inc. Relevant Problems Neuro/Psych (+) History of anxiety CARDIOVASCULAR (+) Hypertension /Renal (+) Hepatic steatosis Physical Exam Airway Mallampati: I TM distance: >3 FB Neck ROM: full Cardiovascular - normal exam Rhythm: regular Dental - normal exam Pulmonary - normal exam Breath sounds clear to auscultation Abdominal Comments: Deferred Anesthesia Plan ASA 2 Anesthesia Type - general, to include intravenous induction. Block for post-op pain? No Anesthesia plan and risks discussed. Informed consent obtained from patient. Specific risks discussed were myocardial infarction, nausea, vomiting and stroke. Code status discussed? Yes The preoperative history and physical which was performed within 30 days of this procedure, has been reviewed and the clinically appropriate elements of the physical examination have been repeated. There are no changes to the documented history and physical or, if so, such changes are documented inthis note PAT Note Notes from 06/22/22 through 07/22/22 No notes of this type exist for this encounter. documented in this encounter Plan of Treatment Upcoming Encounters Date Type Department Care Team (Late st Contact Info) Description 01/31/2024 13:40 EDT Office Visit [facility] Surgical Oncology - [address] [id number] Maeve Morales, 111 [facility], [address] [place] [phone] documented as of this encounter Procedures Procedure Name Priority Date/Time Associated Diagnosis Comments ANESTHESIA INTUBATION Routine 07/22/2022 13:15 EST documented in this encounter Results * AR AN ELECTIVE ENDOTRACHEAL AIRWAY (07/22/2022 13:15 EST) Narrative Emelina Guillermo CRNA - 07/22/2022 13:15 EST Emelina Guillermo CRNA ? 07/22/2022 13:24 Airway Date/Time: 07/22/2022 13:15 Urgency: elective Airway not difficult General Information and Staff Patient location during procedure: OR Resident/WALLPAPER INSPECTOR AND SHIPPER: Emelina Guillermo CRNA Performed: resident/WALLPAPER INSPECTOR AND SHIPPER/AA Indications and Patient Condition Indications for airway management: anesthesia Sedation level: GA Preoxygenated: yes Patient position: sniffing Ventilation assessment: 1 - Easy Final Airway Details Final airway type: endotracheal airway Successful airway: ETT Cuffed: yes Successful intubation technique: direct laryngoscopy Facilitating devices/methods: intubating stylet Endotracheal tube insertion site: oral Blade: Thanh Blade size: #3 ETT size (mm): 7.5 Cormack-Lehane Classification: grade IIa - partial view of glottis Placement verified by: chest auscultation and capnometry Measured from: teeth ETT to teeth (cm): 21 Number of attempts at approach: 1 Ventilation between attempts: none Number of other approaches attempted: 0 Elizabeth Rodríguez MD ANESTHESIA ORDERABLE S documented in this encounter Visit Diagnoses Not on filedocumented in this encounter Administered Medications Inactive Administered Medications - up to 3 most recent administrations Medication Order MAR Action Action Date Dose Rate Site ceFAZolin (ANCEF) syringe 2 g 2 g, intravenous, Administer over 5 Minutes, PRE-OP ONCE, 1 dose, On Klaudia 07/22/22 at 1115, Routine Given 07/22/2022 13:19 EST 2 g dexAMETHasone (DECADRON) injection intravenous, PRN, Starting on Klaudia 07/22/22 at 1323, Until Klaudia 07/22/22 at 1618, Routine, Anesthesia Intraprocedure Given 07/22/2022 13:23 EST 4 mg ePHEDrine injection 25 mg/5 mL syringe intravenous, PRN, Starting on Klaudia 07/22/22 at 1429, Until Klaudia 07/22/22 at 1618, Routine, Anesthesia Intraprocedure Given 07/22/2022 14:29 EST 10 mg fentaNYL citrate (PF) injection intravenous, PRN, Starting on Klaudia 07/22/22 at 1314, Until Klaudia 07/22/22 at 1618, Routine, Anesthesia Intraprocedure Given 07/22/2022 13:14 EST 100 mcg indocyanine green (IC-GREEN) injection intravenous, PRN, Starting on Klaudia 07/22/22 at 1520, Until Klaudia 07/22/22 at 1618, Routine, Anesthesia Intraprocedure Given 07/22/2022 15:36 EST 5 mg Given 07/22/2022 15:20 EST 5 mg ketAMINE in NaCl, iso-osmotic (KETALAR) 50 mg/5 mL (10 mg/mL) IV injection intravenous, PRN, Starting on Klaudia 07/22/22 at 1313, Until Klaudia 07/22/22 at 1618, Routine, Anesthesia Intraprocedure Given 07/22/2022 13:53 EST 20 mg Given 07/22/2022 13:13 EST 30 mg lactated ringers (LR) infusion at 25 mL/hr, intravenous, CONTINUOUS, Starting on Klaudia 07/22/22 at 1115, Until Klaudia 07/22/22 at 1959, Routine, Preprocedure Restarted 07/22/2022 13:07 EST New Bag 07/22/2022 11:46 EST 25 mL/hr lidocaine (PF) 20 mg/mL (2 %) injection intravenous, PRN, Starting on Klaudia 07/22/22 at 1313, Until Klaudia 07/22/22 at 1618, Routine, Anesthesia Intraprocedure Given 07/22/2022 13:13 EST 100 mg midazolam (PF) (VERSED) injection intravenous, PRN, Starting on Klaudia 07/22/22 at 1311, Until Klaudia 07/22/22 at 1618, Routine, Anesthesia Intraprocedure Given 07/22/2022 13:11 EST 2 mg ondansetron (PF) (ZOFRAN) injection intravenous, PRN, Starting on Klaudia 07/22/22 at 1528, Until Klaudia 07/22/22 at 1618, Routine, Anesthesia Intraprocedure Given 07/22/2022 15:28 EST 4 mg phenylephrine HCl in 0.9% NaCl injection intravenous, PRN, Starting on Klaudia 07/22/22 at 1429, Until Klaudia 07/22/22 at 1618, Routine, Anesthesia Intraprocedure Given 07/22/2022 14:29 EST 50 mcg propOFol (DIPRIVAN) injection intravenous, PRN, Starting on Klaudia 07/22/22 at 1314, Until Klaudia 07/22/22 at 1618, Routine, Anesthesia Intraprocedure Rate Change 07/22/2022 14:16 EST 125 mcg/kg/min 59.025 mL/hr Given 07/22/2022 13:53 EST 50 mg Rate Change 07/22/2022 13:37 EST 125 mcg/kg/min 59.025 mL/ hr rocuronium (ZEMURON) injection intravenous, PRN, Starting on Klaudia 07/22/22 at 1315, Until Klaudia 07/22/22 at 1618, Routine, Anesthesia Intraprocedure Given 07/22/2022 14:20 EST 20 mg Given 07/22/2022 13:15 EST 80 mg sugammadex (BRIDION) injection intravenous, PRN, Starting on Klaudia 07/22/22 at 1552, Until Klaudia 07/22/22 at 1618, Routine, Anesthesia Intraprocedure Given 07/22/2022 15:52 EST 170 mg documented in this encounter Care Teams Stockroom Helper Relationship Specialty Start Date End Date Janay Duran, TELEVISION REPAIRMAN 111 [facility] 2 [place] [address] PCP - General Family Medicine - Primary Care 07/22/22 Pam Germain MD 111 [facility] 2 [place] [phone] Medical Oncology 03/22/22 documented as of this encounter
--- OUTSIDE RECORDS SUMMARY | 2023-12-10 17:38 | XMS_ITS | Encounter Summary ---
Author Organization [facility] Address [address] [place] [address] Care Team Providers Care Grades 9 Through 12 Teacher Name Role Phone Batsheva Lira JOHN Primary Care Provider [phone] Reason for Visit * Reason Onset Date Comments Appointment Related 03/02/2022 Encounter Details Date Type Department Care Team (Late st Contact Info) Description 03/02/2022 Telephone [facility] Surgical Oncology - [address] [phone] Maeve Morales, DO 111 [facility], [address] [place] [phone] Appointment Related Social History Tobacco Use Types [...] * Telephone Encounter - Yulissa Pedroza - 03/02/2022 0956 EDT Gave pt a call to offer her a sooner appt off of Dr. Morales's wait list While on the phone with the patient she accepted an opening on: 03/24/2022 @ 10:00am - pt is aware Yulissa Pedroza 03/02/2022 9:57 documented in this encounter Plan of Treatment Upcoming Encounters Date Type Department Care Team (Late st Contact Info) Description 01/31/2024 13:40 EDT Office Visit [facility] Surgical Oncology - [address] [id number] Maeve Morales, DO 111 [facility], [address] [place] [address] documented as of this encounter Visit Diagnoses Not on filedocumented in this encounter Care Teams Grades 9 Through 12 Teacher Relationship Specialty Start Date End Date Batsheva Lira FNP [address] [place] [phone] PCP - General 02/19/20 07/21/22 documented as of this encounter
--- OUTSIDE RECORDS SUMMARY | 2023-12-10 17:38 | XMS_ITS | Encounter Summary ---
Author Organization [facility] Address [address] [place] [address] Care Team Providers Care Tool And Die Assembler Name Role Phone Batsheva Lira JOHN Primary Care Provider [phone] Reason for Visit * Reason Comments Post-OP Follow Up bilateral exchange w / fat grafting 829.22 Encounter Details Date Type Department Care Team (Latest Contact Info) Description 03/17/2022 10:00 EDT Post-op Visit [facility] Plastic[facility] Reconstructive [facility] Cosmetic Surgery - [address], [address] [place] [address] Juanito Carcamo MD [address] [phone] Surgery follow-up (Primary Dx) Social [...] Notes * Juanito Carcamo MD FACS - 03/17/2022 1000 EDT Austin follows up after her 01/11/22 bilateral exchange of tissue expanders to silicone implants withfat grafting from her abdomen. She reports that she is doing well. Incisions appear to be healing nicely with no signs of infection or dehiscence. She does note some medial fullness in both her breasts (right greater than left). When you view the breast from the top down view this is fairly obvious. I explained to her that when we do her nipple reconstructions we will revise this area and use some of that redundancy for the nipple reconstruction. Signs and symptoms of potential complications were discussed. She knows to call with questions or concerns. Austin will follow-up for preoperative appointment to discuss bilateral nipple reconstruction and bilateral medial dogear revision. documented in this encounter Plan of Treatment Upcoming Encounters Date Type Department Care Team (Late st Contact Info) Description 01/31/2024 13:40 EDT Office Visit [facility] Surgical Oncology - [address] [address] Maeve Morales DO 111 [facility], [address] [place] [phone] documented as of this encounter Visit Diagnoses Diagnosis Surgery follow-up- Primary Follow-up examination, following unspecified surgery documented in this encounter Care Teams Tool And Die Assembler Relationship Specialty Start Date End Date Batsheva Lira FNP [address] [address] PCP - General 02/19/20 07/21/22 documented as of this encounter
--- OUTSIDE RECORDS SUMMARY | 2023-12-10 17:38 | XMS_ITS | Encounter Summary ---
Author Organization [facility] Address [address] [place] [address] Care Team Providers Care Baggage Inspector Name Role Phone Batsheva Lira JOHN Primary Care Provider [phone] Pam Germain MD Unavailable [phone] Reason for Referral * Radiology Services (Routine/Next Available) - Authorization Not Required Specialty Diagnoses / Procedures Referred By Contac t Referred To Contact Diagnoses Radiculopathy, cervical region Procedures XR CERVICAL SPINE 2-3 VIEWS Daren Larios MD [address] [place] [id number] [facility] Referral ID Status Reason Start Date Expiration Date Visits Requested Visits Authorized [id number] Authorization Not Required 06/01/2022 1 1 Reason for Visit * Radiology Services (Routine/Next Available) - Authorization Not Required Specialty Diagnoses / Procedures Referred By Contac t Referred To Contact Diagnoses Radiculopathy, cervical region Procedures XR CERVICAL SPINE 2-3 VIEWS Daren Larios MD [address] [place] [id number] [facility] Referral ID Status Reason Start Date Expiration Date Visits Requested Visits Authorized [id number] Authorization Not Required 06/01/2022 1 1 Encounter Details Date Type Department Care Team (Latest Contact Info) Description 06/03/2022 10:10 EST - 06/03/2022 23:59 EST Hospital [facility] Radiology Xray Outpatient - [address] [address] Radiculopathy, cervical region Discharge Disposition: Home or [...] [facility] - [address] [phone] Maeve Morales, DO [address] [place] [address], [address] [place] [phone] documented as of this encounter Procedures Procedure Name Priority Date/Time Associated Diagnosis Comments XR CERVICAL SPINE 2-3 VIEWS Routine 06/03/2022 10:25 EST Radiculopathy, cervical region documented in this encounter Results * XR CERVICAL SPINE 2-3 VIEWS (06/03/2022 10:25 EST) Anatomical Region Laterality Modality Computed Radiogr aphy 06/03/2022 9:42 EST Impressions 06/03/2022 14:45 EST Degenerative disc disease at C5-C6 THIS DOCUMENT HAS BEEN ELECTRONICALLY SIGNED BY ZACK MARTEL MD FOR ANY QUESTIONS OR CONCERNS REGARDING THIS REPORT PLEASE CALL [facility] AT [phone] Narrative 06/03/2022 14:45 EST PROCEDURE INFORMATION: Exam: XR Cervical Spine Exam date and time: 06/03/2022 10:44 AM Age: 46 years old Clinical indication: Radiculopathy, cervical region; Additional info: Radiculopathy, cervical region, lue pain/cervical radiculopathy. HX breast CA, assess ddd? Djd v mass TECHNIQUE: Imaging protocol: Radiologic exam of the cervical spine. Views: 2 or 3 views. COMPARISON: NM BONE WHOLE BODY WITH CT 07/18/2020 12:14 PM FINDINGS: Bones/joints: Narrowed C5-C6 interspace with endplate osteophyte formation. Soft tissues: Unremarkable. Procedure Note Zack Martel MD - 06/03/2022 PROCEDURE INFORMATION: Exam: XR Cervical Spine Exam date and time: 06/03/2022 10:44 AM Age: 46 years old Clinical indication: Radiculopathy, cervical region; Additional info: Radiculopathy, cervical region, lue pain/cervical radiculopathy. HX breastCA, assess ddd? Djd v mass TECHNIQUE: Imaging protocol: Radiologic exam of the cervical spine. Views: 2 or 3 views. COMPARISON: NM BONE WHOLE BODY WITH CT 07/18/2020 12:14 PM FINDINGS: Bones/joints: Narrowed C5-C6 interspace with endplate osteophyteformation. Soft tissues: Unremarkable. IMPRESSION Degenerative disc disease at C5-C6 THIS DOCUMENT HAS BEEN ELECTRONICALLY SIGNED BY ZACK MARTEL MD FOR ANY QUESTIONS OR CONCERNS REGARDING THIS REPORT PLEASE CALL [facility] [phone] Daren Larios MD IMG DIAGNOSTIC IM AGING ORDERABLES documented in this encounter Visit Diagnoses Diagnosis Radiculopathy, cervical region Brachial neuritis or radiculitis nos documented in this encounter Care Teams Baggage Inspector Relationship Specialty Start Date End Date Batsheva Lira FNP [facility] [address] [phone] PCP - General 02/19/20 07/21/22 Pam Germain MD [address] [place] [address] [address] [place] [address] Medical Oncology 03/22/22 documented as of this encounter
--- OUTSIDE RECORDS SUMMARY | 2023-12-10 17:38 | XMS_ITS | Encounter Summary ---
Author Organization [facility] Address [address] [place] [address] Care Team Providers Care Electrical Sign Wirer Name Role Phone Batsheva Lira JOHN Primary Care Provider [phone] Pam Germain MD Unavailable [phone] Reason for Visit * Reason Comments Pre-op Exam Bilateral nipple rec onstruction and bilateral dog ear revision 3.9.23 Encounter Details Date Type Department Care Team (Latest Contact Info) Description 07/20/2022 9:45 EST Office Visit [facility] Plastic, Reconstructive & Cosmetic Surgery - [address], [address] [place] [address] Juanito Carcamo MD [address] [phone] S/P breast reconstruction (Primary Dx) Social [...] Recorded In the last 10 days, have stephanie brumfield been in contact with someone who was [...] Notes * Juanito Carcamo MD FACS - 07/20/2022 0945 EST Austin is here for her preoperative appointment for bilateral nipple reconstructions. She is also interested in revision of the medial dogear of the right breast. We discussed the general risks including but not limited to infection, bleeding, wound formation, scar formation and possible need for fur ther surgery. We more specifically discussed the possibility of asymmetry, partial or complete lossof the nipple reconstruction and the possible use of Alloderm for nipple augmentation. We discussedpostoperative protection of the reconstructions with nipple guards, which she will wear for 2 weeks. Austin voices understanding and desires to proceed. Signed informed consent was obtained today for bilateral nipple reconstruction. Next stop is the OR. Total time spent on for this visit in yman-kd-wnam and non waqp-pa-juph time reviewing, documenting, and obtaining, clinical information, coordinating with the care team and/or other specialists, andcounseling the patient: 40 minutes. documented in this encounter Plan of Treatment Upcoming Encounters Date Type Department Care Team (Late st Contact Info) Description 01/31/2024 13:40 EDT Office Visit [facility] Surgical Oncology - [address] [phone] Maeve Morales DO [address] [phone] documented as of this encounter Visit Diagnoses Diagnosis S/P breast reconstruction- Primary Breast replaced by other means documented in this encounter Care Teams Electrical Sign Wirer Relationship Specialty Start Date End Date Batsheva Lira FNP [address] [phone] PCP - General 02/19/20 07/21/22 Pam Germain MD [address] [place] [phone] Medical Oncology 03/22/22 documented as of this encounter
--- OUTSIDE RECORDS SUMMARY | 2023-12-10 17:38 | XMS_ITS | Encounter Summary ---
Author Organization [facility] Address [address] [place] [address] Care Team Providers Care Cabinet Mounter Name Role Phone Batsheva Lira JOHN Primary Care Provider [phone] Pam Germain MD Unavailable [phone] Janay Duran APRN Primary Care Provider Unava ilable Encounter Details Date Type Department Care Team (Latest Contact Info) Description 03/09/2022 Lab Requisition [facility] Pathology & Laboratory Medicine - [facility] [address] [place] [address] Janay Duran APRN Unspecified menopausal and perimenopausal disorder Social History Tobacco Use Types Packs/Day Years [...] Info) Description 01/31/2024 13:40 EDT Office Visit [facility] Surgical Oncology - [address] [address] Maeve Morales, DO 111 [facility], [address] [place] [address] documented as of this encounter Procedures Procedure Name Priority Date/Time Associated Diagnosis Comments FSH Routine 03/09/2022 11:11 EDT Unspecified menopausal and perimenopausal disorder documented in this encounter Results * FSH (03/09/2022 11:11 EDT) FSH 87.7 See Note mIU/mL 03/09/2022 21:41 EDT [facility] Blood VENOUS BLOOD / Unknown 03/09/2022 11:11 EDT 03/09/2022 19:17 EDT Narrative [facility] - 03/09/2022 21:41 EDT NOTE: Female FSH Reference Ranges (Menstruating): PHYSIOLOGICAL STATUS ? REFERENCE RANGE ? Follicular (-12 to -4 days): ?? 2.5 - 10.2 mIU/mL Midcycle (-3 to +2 days): ?3.4 - 33.4 mIU/mL Luteal (+4 to +12 days): ? 1.5 - 9.1 mIU/mL Postmenopausal: ?23.0 - 116.3 mIU/mL Reference Ranges for pediatric non-menstruating female patients have not been established. Janay Duran APRN CHEMISTRY & BLOOD GA S ORDERABLES [facility] [address] [place] [address] documented in this encounter Visit Diagnoses Diagnosis Unspecified menopausal and perimenopausal disorder documented in this encounter Care Teams Cabinet Mounter Relationship Specialty Start Date End Date Batsheva Lira FNP [address] [phone] PCP - General 02/19/20 07/21/22 Janay Duran APRN [address] [phone] PCP - General Family Medicine - Primary Care 07/22/22 Pam Germain MD [address] [phone] Medical Oncology 03/22/22 documented as of this encounter
--- OUTSIDE RECORDS SUMMARY | 2023-12-10 17:38 | XMS_ITS | Encounter Summary ---
Author Organization [facility] Address [address] [place] [address] Care Team Providers Care Secretary Name Role Phone Batsheva Lira JOHN Primary Care Provider [phone] Reason for Visit * Reason Onset Date Comments Post-OP Follow Up 01/13/2022 Encounter Details Date Type Department Care Team (Late st Contact Info) Description 01/13/2022 Telephone [facility] Plastic, Reconstructive & Cosmetic Surgery - [address], [address] [place] [address] Katia Degroot RN [address] [place] [address] Post-OP Follow Up Social History Tobacco Use Types Packs/Day Years [...] encounter Miscellaneous Notes * Telephone Encounter - Katia Degroot RN - 01/13/2022 0055 EDT Post op follow up phone call was made 01/13/22 Patient condition was discuss with Austin Type of Surgery:bilateral implant exchange, TE to gel with fat grafting from the abdomen. Surgeon:Dr. Carcamo Date of Surgery:01/11/22 Appetite:WNL Bowels: no bm, taking colace, will increase to BID, and if needed will increase to 100 mg BID. Willalso add prune juice and miralx as needed Voiding:yes Activity: wnl Drains: Drains none Incision and dressings:no concerns Pain:well controlled taking tylenol ABX:yes Fever:no Problems/ Concerns none Additional Info / Patient education Call if any questions or concerns arise Date of post-op/ follow up visit 01/19/22 at 1300 with TACO Cross RN documented in this encounter Plan of Treatment Upcoming Encounters Date Type Department Care Team (Late st Contact Info) Description 01/31/2024 13:40 EDT Office Visit [facility] [place] [address] Maeve Morales, DO 111 [facility], [address] [place] [address] documented as of this encounter Visit Diagnoses Not on filedocumented in this encounter Historical Medications * This list may reflect changes made after this encounter. Medication Sig Dispensed Refills Start Date End Date docusate sodium (COLACE) 50 mg capsule Take 50 mg by mouth 2 times daily as needed for Constipation. 07/22/2022 added in this encounter Care Teams Secretary Relationship Specialty Start Date End Date Batsheva Lira FNP [facility] [address] [phone] PCP - General 02/19/20 07/21/22 documented as of this encounter
--- OUTSIDE RECORDS SUMMARY | 2023-12-10 17:38 | XMS_ITS | Encounter Summary ---
Author Organization [facility] Address [address] [place] [address] Care Team Providers Care Dietitian Research Name Role Phone Pam Germain MD Unavailable [phone] Janay Duran APRN Primary Care Provider Unava ilable Reason for Visit * Reason Comments Post-OP Follow Up Encounter Details Date Type Department Care Team (Latest Contact Info) Description 07/30/2022 11:30 EDT Post-op Visit [facility] Plastic, Reconstructive & Cosmetic Surgery - [address], [address] [place] [address] Oksana Wilkins PA-C [address] [place] [address] [place] [phone] Surgery follow-up (Primary Dx) Social History [...] Progress Notes * Oksana Wilkins PA-C - 07/30/2022 1130 EDT SUBJECTIVE: Austin Squires returns in follow up from bilateral nipple recon with right medial dog ear revision with Dr. Carcamo on 07/22/22. Last seen on 07/28/22. Austin is currently completing a course of Bactrim for infection prophylaxis. Today she reports increasing erythema and itch. Pertinent negatives: fever/chills, fatigue, N/V/D. OBJECTIVE: On examination, in no distress. Paper tape and plastic nipple guards in place were removed; marked serous drainage collected inside guards. Marked inflammation of skin to the skin and surgical sites just beneath the dressings and an additional 2.5 - 3 cm around it. Culture from 07/26/22 Many Neutrophils Present No bacteria seen IMPRESSION: Increased inflammation from dressings PLAN: Removed all dressings. Recommend that no bra or tight fitting clothing is worn until the inflammation abates. No topicals (including soap, body wash, lotion). Pt advised that she is to continue Bactrim as prescribed due to weakened skin barrier caused by this inflammation. She is advised to take Benadryl to combat itch. FOLLOW UP: Dr. Carlos Alberto is yarn conditioner this weekend PRN. Otherwise, follow up on Tuesday08/02/22 Oksana Wilkins PA-C 07/30/2022 12:54 documented in this encounter Plan of Treatment Upcoming Encounters Date Type Department Care Team (Late st Contact Info) Description 01/31/2024 13:40 EDT Office Visit [facility] Surgical Oncology - [address] [phone] Maeve Morales, [address] [place] [phone] documented as of this encounter Visit Diagnoses Diagnosis Surgery follow-up- Primary Follow-up examination, following unspecified surgery documented in this encounter Care Teams Dietitian Research Relationship Specialty Start Date End Date Janay Duran, ONLINE MEDIA DIRECTOR [address] [place] [phone] PCP - General Family Medicine - Primary Care 07/22/22 Pam Germain MD [address] [place] [phone] Medical Oncology 03/22/22 documented as of this encounter
--- OUTSIDE RECORDS SUMMARY | 2023-12-10 17:38 | XMS_ITS | Encounter Summary ---
Author Organization [facility] Address [address] [place] [address] Care Team Providers Care Matcher Operator Name Role Phone Batsheva Lira JOHN Primary Care Provider [phone] Pam Germain MD Unavailable [phone] Reason for Referral * Radiology Services (Routine/Next Available) - Authorization Not Required Specialty Diagnoses / Procedures Referred By Contac t Referred To Contact Diagnoses Thumb pain, left Procedures XR FINGER LEFT 2 OR MORE VIEWS Pam Germain MD [address] [place] [phone] [facility] Referral ID Status Reason Start Date Expiration Date Visits Requested Visits Authorized [id number] Authorization Not Required 04/23/2022 1 1 Reason for Visit * Radiology Services (Routine/Next Available) - Authorization Not Required Specialty Diagnoses / Procedures Referred By Contac t Referred To Contact Diagnoses Thumb pain, left Procedures XR FINGER LEFT 2 OR MORE VIEWS Pam Germain MD [address] [place] [phone] [facility] Referral ID Status Reason Start Date Expiration Date Visits Requested Visits Authorized [id number] Authorization Not Required 04/23/2022 1 1 Encounter Details Date Type Department Care Team (Latest Contact Info) Description 04/23/2022 10:16 EST - 04/23/2022 23:59 EST [facility] Radiology Xray Outpatient - [address] [phone] Thumb pain, left Discharge Disposition: Home or Self Care Social [...] Info) Description 01/31/2024 13:40 EDT Office Visit [facility] Surgical Oncology - [address] [phone] Maeve Morales, DO [address] [place] [address], [address] [place] [phone] documented as of this encounter Procedures Procedure Name Priority Date/Time Associated Diagnosis Comments XR FINGER LEFT 2 OR MORE VIEWS Routine 04/23/2022 10:27 EST Thumb pain, left documented in this encounter Results * XR FINGER LEFT [...] documented in this encounter Visit Diagnoses Diagnosis Thumb pain, left documented in this encounter Care Teams Matcher Operator Relationship Specialty Start Date End Date Batsheva Lira FNP [address] [phone] PCP - General 02/19/20 07/21/22 Pam Germain MD 111 [facility], [address] [place] [phone] Medical Oncology 03/22/22 documented as of this encounter
--- OUTSIDE RECORDS SUMMARY | 2023-12-10 17:38 | XMS_ITS | Encounter Summary ---
Author Organization [facility] Address [address] [place] [address] Care Team Providers Care Bricklayer'S Assistant Name Role Phone Pam Germain MD Unavailable [phone] Janay Duran APRN Primary Care Provider Unava ilable Reason for Visit * Reason Comments New Patient Visit Cervical radiculopat hy * Consult (Routine) - Receiving Office to Obtain Authorization Specialty Diagnoses / Procedures Referred By Contsharlene t Referred To Contact Diagnoses Radiculopathy, cervical region Daren Larios MD [address] [place] [address] Miki Miguel MD [address] [phone] Referral ID Status Reason Start Date Expiration Date Visits Requested Visits Authorized [id number] Receiving Office to Obtain Authorization 1 1 Encounter Details Date Type Department Care Team (Late st Contact Info) Description 08/06/2022 14:00 EDT Office Visit [facility] Neurosurgery - [address] [phone] Briseyda Gilliam NP [address] [phone] Cervical radiculopathy at C6 (Primary Dx) Social History Tobacco Use Types [...] 13:22 EDT documented as of this encounter Last Filed Vital Signs Vital Sign Reading Time Taken Comments Blood Pressure 106/62 08/06/2022 1322 EDT Pulse 85 08/06/2022 1322 EDT Temperature - - Respiratory Rate 16 08/06/2022 1322 EDT Oxygen Saturation 98% 08/06/2022 1322 EDT Inhaled Oxygen Concentration - - Weight 77.1 kg (170 lb) 08/06/2022 1322 EDT Height 167.6 cm (5' 6) 08/06/2022 1322 EDT Body Mass Index 27.44 08/06/2022 1322 EDT documented in this encounter Functional Status [...] as of this encounter Progress Notes * Briseyda Gilliam, LILI - 08/06/2022 1400 EDT Images from the original note were not included. Chief Complaint Patient presents with ??? New Patient Visit Cervical radiculopathy HPI: Austin Squires is a 46 y.o. female who presents today for neurosurgical consultation at the requestof Dr. Daren Larios for cervical radiculopathy. Austin reports that she developed neck pain last fall. She sought caregivers non medical in [facility] but did not find relief from her symptoms. She returned to her prior chiropractic office in April and underwent an adjustment with a different chiropractor and soon after developed numbness radiating down her left upper arm, the radial aspect of her left lower arm, and into the thumb and index finger of the left hand. She did have some pain in her left upper arm. She denies right arm symptoms. She reports currently that her left arm numbness has significantly improved. She does still experience intermittent numbness in her fingers, states that her index and thumb fingertips are numb right now. She has neck pain which is positional. She reports some difficulty with dexterity when the numbness is present. She is right hand dominant. She denies dropping objects, denies weakness. She denies issues with gait/balance. To manage her symptoms she continues to regularly see her usual chiropractor and she does practice home exercises, which she feels are helpful. She does not use any medications regularly for pain. She does not use topical agents. She has not had injections in her cervical spine. ROS: - Constitutional: Denies fever, chills, unintentional weight loss, unusual fatigue - GI: Denies bowel incontinence - : Denies urinary incontinence - MSK: Denies difficulty with gait - Neuro: Denies saddle anesthesia Past Medical History: Diagnosis Date ??? Activity, other involving cardiorespiratory exercise Noted 07/19/2022: stretching exercises and weights ??? Anxiety Noted 07/19/2022: controlled w/ meds ??? Back pain Noted 07/19/2022: degenerative disc disease ??? Bladder incontinence ??? Cancer ([facility]) (HCC) Noted 07/19/2022: breast ??? Diabetes mellitus, [...] of Onset ??? Lung Cancer Mother Social History Socioeconomic History ??? Marital status: Tobacco Use ??? Smoking status: Former Packs/day: 1.00 Years: 30.00 Pack years: 30.00 Types: Cigarettes Quit date: 09/17/2020 Years since quittin.8 ??? Smokeless tobacco: Never ??? Tobacco comments: Smoked on and off when smoked- started as a teen Vaping Use ??? Vaping Use: Former ??? Substances: Nicotine (3mg or none) ??? Devices: Disposable Substance and Sexual Activity ??? Alcohol use: Not Currently ??? Drug use: Not Currently Types: Marijuana ??? Sexual activity: Not Currently Comment: none for a couple years per pt as of 06/09/21 Social history: - ETOH: denies - Tobacco/vaping: denies - Drugs: denies EXAM: Patient Vitals for the past 24 hrs: BP Pulse Resp SpO2 Height Weight 08/06/22 1322 106/62 85 16 98 % 167.6 cm (66) 77.1 kg (170 lb) Awake, alert, conversant Oriented x4 Follows commands x4 Verbalizes appropriately, fluently Rises from a seated position without difficulty. She is able to tandem walk, toe walk, and heel walk without difficulty. STRENGTH/SENSATION/REFLEXES: UE Strength - LEFT Deltoid (C5) 5/5 Bicep (C5, 6) 5/5 Tricep (C6, 7) 5/5 Art Model (C8) 5/5 UE Strength - RIGHT Deltoid (C5) 5/5 Bicep (C5, 6) 5/5 Tricep (C6, 7) 5/5 Art Model (C8) 5/5 No pronator drift Sensation intact in bilateral upper extremities (C5/C6/C7/C8 distributions) Reflexes Triceps +2 bilaterally Biceps +2 bilaterally Radial +2 bilaterally Gonzalez's Absent bilaterally Patellar +2 bilaterally Ankle +2 bilaterally Clonus not present Imaging: I personally reviewed the patient's cervical MRI from 07/01/22. There are mild degenerative changes throughout. At C5-6 there is mild central stenosis with left greater than right foraminal stenosis. I also reviewed the patient's cervical flexion/extension xrays from today. No obvious deformity or instability. Assessment/Plan Cervical radiculopathy - Neck pain with left arm radicular numbness in a C6 distribution, which is concordant with MRI findings of severe left-sided foraminal stenosis at C5-6. Per her report her symptoms have largely improved with ongoing caregivers non medical. We discussed that with improving symptoms I would not recommend surgical intervention at this time. We discussed the possibility of a cervical CAROLYN but without radicular pain and with improving symptoms she does not feel this is necessary. We discussed continuing with caregivers non medical as long as she continues to see benefit, continuation of home exercises, and the use of NSAIDs/APAP for acute pain flares. Should her symptoms return or should she develop radicular pain we would be happy to see her back. Encouraged to call with any questions or concerns. RTC/FU PRN 40 minutes of this 45 minute face to face visit were spent in patient counseling/coordination of care. documented in this encounter Plan of Treatment Upcoming Encounters Date Type Department Care Team (Late st Contact Info) Description 01/31/2024 13:40 EDT Office Visit [facility] Surgical Oncology - [address] [phone] Maeve Morales, [address] [phone] documented as of this encounter Visit Diagnoses Diagnosis Cervical radiculopathy at C6- Primary Brachial neuritis or radiculitis nos documented in this encounter Care Teams Bricklayer'S Assistant Relationship Specialty Start Date End Date Janay Duran, RETORT OPERATOR [address] [place] [phone] PCP - General Family Medicine - Primary Care 07/22/22 Pam Germain MD [address] [place] [phone] Medical Oncology 03/22/22 documented as of this encounter
--- OUTSIDE RECORDS SUMMARY | 2023-12-10 17:38 | XMS_ITS | Encounter Summary ---
Author Organization [facility] Address [address] [place] [address] Care Team Providers Care Airplane Mechanic Name Role Phone Pam Germain MD Unavailable [phone] Janay Duran APRN Primary Care Provider Unava ilable Reason for Visit * Reason Onset Date Comments Post-op Problem 07/26/2022 Encounter Details Date Type Department Care Team (Late st Contact Info) Description 07/26/2022 Telephone [facility] Plastic, Reconstructive & Cosmetic Surgery - [address], [address] [place] [address] Katia Degroot RN [address] [place] [address] Post-op Problem Social History Tobacco Use Types Packs/Day Years [...] Telephone Encounter - Katia Degroot RN - 07/26/2022 0941 EDT Austin sent in a message over the weekend, through [employer]. She noticed some redness and swelling atthe surgical site. She said that she outlined the area. Surgery was on 07/22/[address] Carcamo for bilateral nipple reconstruction. Appointment scheduled for today, 07/26/22 at 1400, with Anali Navas PA-C. KATIA WILCOX RN documented in this encounter Plan of Treatment Upcoming Encounters Date Type Department Care Team (Late st Contact Info) Description 01/31/2024 13:40 EDT Office Visit [facility] Surgical Oncology - [address] [address] Maeve Morales, [address] [place] [address], [facility], [address] [place] [phone] documented as of this encounter Visit Diagnoses Not on filedocumented in this encounter Care Teams Airplane Mechanic Relationship Specialty Start Date End Date Janay Duran APRN 111 [facility], [facility], [facility] 2 [place] [phone] PCP - General Family Medicine - Primary Care 07/22/22 Pam Germain MD 111 [facility] 2 [place] [phone] Medical Oncology 03/22/22 documented as of this encounter
--- OUTSIDE RECORDS SUMMARY | 2023-12-10 17:38 | XMS_ITS | Encounter Summary ---
Author Organization [facility] Address [address] [place] [address] Care Team Providers Care Reimbursement Manager Name Role Phone Batsheva Lira JOHN Primary Care Provider [phone] Pam Germain MD Unavailable [phone] Encounter Details Date Type Department Care Team (Late st Contact Info) Description 06/03/2022 9:30 EST Ancillary Procedure [facility] Surgical Oncology - Main [place] [address] [place], [place] [id number] Social History Tobacco Use Types Packs/Day Years [...] Info) Description 01/31/2024 13:40 EDT Office Visit [facility] Surgical Oncology - [address] [id number] Maeve Morales DO 111 [facility], [facility], Level 2 [place] [address] documented as of this encounter Procedures Procedure Name Priority Date/Time Associated Diagnosis Comments [facility] BREAST BREAST [facility] ONLY Routine 06/03/2022 16:23 EST documented in this encounter Results * [facility] ONLY (06/03/2022 16:23 EST) Narrative [facility] POINT OF CARE - 06/03/2022 16:23 EST This is a non-reportable exam. Maeve Morales DO [facility] POC ORDERABL ES [facility] POINT OF CARE documented in this encounter Visit Diagnoses Not on filedocumented in this encounter Care Teams Reimbursement Manager Relationship Specialty Start Date End Date Batsheva Lira FNP [address] [place] [phone] PCP - General 02/19/20 07/21/22 Pam Germain MD [address] [facility], [facility] 2 [place] [phone] Medical Oncology 03/22/22 documented as of this encounter
--- OUTSIDE RECORDS SUMMARY | 2023-12-10 17:38 | XMS_ITS | Encounter Summary ---
Author Organization [facility] Address [address] [place] [address] Care Team Providers Care Financial Secretary Name Role Phone Batsheva Lira JOHN Primary Care Provider Pam Germain MD Unavailable [phone] Reason for Referral * Consult (Routine/Next Available) - Receiving Office to Obtain Authorization Specialty Diagnoses / Procedures Referred By Jen gonzáles Referred To Contact Orthopedic Surgery Diagnoses Injury of left thumb, sequela Pam Germain MD [address] [place] [address], [facility] 2 [place] [address] [facility] Ortho Upper Extremity [address] [place] [address] Referral ID Status Reason Start Date Expiration Date Visits Requested Visits Authorized [id number] Receiving Office to Obtain Authorization Specialty Services Required 2 1 1 Question Answer Reason for Request: left thumb with pain, limited ROM after trauma, no fracture Encounter Details Date Type Department Care Team (Late st Contact Info) Description 04/23/2022 Orders Only [facility] Hematology & Oncology - [address] [phone] Pam Germain MD [address] [address] Injury of left thumb, sequela (Primary Dx) Social History Tobacco Use Types [...] 01/31/2024 13:40 EDT Office Visit [facility] Surgical Oncology - [facility] [address] [place] [phone] Maeve Morales, DO [address] [address] Scheduled Referrals Name Type Priority Associated Diagnoses Order Schedule AMB CONS/FOLLOW UP ORTHOPEDICS - [facility] Outpatient Referral Routine/Next Available Injury of left thumb, sequela Expected: 04/30/2022 (Approximate), Expires: 04/23/2023 documented as of this encounter Visit Diagnoses Diagnosis Injury of left thumb, sequela- Primary documented in this encounter Care Teams Financial Secretary Relationship Specialty Start Date End Date Batsheva Lira FNP [address] [phone] PCP - General 02/19/20 07/21/22 Pam Germain MD 111 [facility], [facility], Level 2 [place] [address] Medical Oncology 03/22/22 documented as of this encounter
--- OUTSIDE RECORDS SUMMARY | 2023-12-10 17:38 | XMS_ITS | Encounter Summary ---
Author Organization [facility] Address [address] [place] [address] Care Team Providers Care Real Estate Processor Name Role Phone Pam Germain MD Unavailable [phone] Janay Duran APRN Primary Care Provider Robin vines Encounter Details Date Type Department Care Team (Latest Contact Info) Description 08/06/2022 Travel Social History Tobacco Use Types Packs/Day Years [...] Info) Description 01/31/2024 13:40 EDT Office Visit [facility] Surgical Oncology - [address] [phone] Maeve Morales DO [address] [phone] documented as of this encounter Visit Diagnoses Not on filedocumented in this encounter Care Teams Real Estate Processor Relationship Specialty Start Date End Date Janay Duran, CLINICAL PHARMACY TECHNICIAN [address] [place] [phone] PCP - General Family Medicine - Primary Care 07/22/22 Pam Germain MD [address] [place] [phone] Medical Oncology 03/22/22 documented as of this encounter
--- OUTSIDE RECORDS SUMMARY | 2023-12-10 17:38 | XMS_ITS | Encounter Summary ---
Author Organization [facility] Address [address] [place] [address] Care Team Providers Care Town Clerk Name Role Phone Batsheva Lira JOHN Primary Care Provider [phone] Pam Germain MD Unavailable [phone] Reason for Visit * Reason Onset Date Comments Labs Only 06/03/2022 Encounter Details Date Type Department Care Team (Late st Contact Info) Description 06/03/2022 Telephone [facility] Surgical Oncology - [address] [phone] Maeve Morales, DO 111 [facility], [facility] 2 [place] [phone] Labs Only Social History Tobacco Use Types Packs/Day Years [...] encounter Miscellaneous Notes * Telephone Encounter - Golden Dempsey RN - 06/03/[address] Morales, surg/onc and Dr. Germain's team,hem/onc routing comments - no labs needed at this time. Called and notified Gab[facility] lab MD's orders and closed the communication loop. Verbalized understanding; stated patient was already aware for not needing labs today; and denies any further assistance needed at this time. * Telephone Encounter - Celio Mazariegos - 06/03/2022 0931 EST [facility] is calling because patient is at labs with no orders. Please advise documented in this encounter Plan of Treatment Upcoming Encounters Date Type Department Care Team (Late st Contact Info) Description 01/31/2024 13:40 EDT Office Visit [facility] Surgical Oncology - [address] [address] Maeve Morales, 111 [facility] 2 [place] [phone] documented as of this encounter Visit Diagnoses Not on filedocumented in this encounter Care Teams Town Clerk Relationship Specialty Start Date End Date Batsheva Lira FNP [address] [phone] PCP - General 02/19/20 07/21/22 Pam Germain MD 111 [facility] 2 [place] [address] Medical Oncology 03/22/22 documented as of this encounter
--- OUTSIDE RECORDS SUMMARY | 2023-12-10 17:39 | XMS_ITS | Encounter Summary ---
Author Organization [facility] Address [address] [place] [address] Care Team Providers Care Septic Cleaner Name Role Phone Batsheva Lira JOHN Primary Care Provider [phone] Reason for Visit * Reason Comments Tissue Director Search Fill right Encounter Details Date Type Department Care Team (Latest Contact Info) Description 09/08/2021 8:30 EDT Post-op Visit [facility] Plastic, Reconstructive & Cosmetic Surgery - [address], [address] [place] [address] Oksana Wilkins PA-C [address] [place] [address] [address] [place] [address] Surgery follow-up (Primary Dx) Social History [...] Progress Notes * Oksana Wilkins PA-C - 09/08/2021 0830 EDT SUBJECTIVE: [place] Squires returns in follow up from right TE exchange with Dr. Carcamo on 06/18/21, last seen on 08/25/21. The right side TE is solely being filled at this time. She is interested in follow up discussion regarding her CT scan for potential JANNETTE. OBJECTIVE: On examination, she is in no distress. Her incision is healing well, without sign of drainage or dehiscence. Breast skin is devoid of rash and erythema. IMPRESSION: Doing well PLAN: TE fill The right TE port was located with a magnet and marked. In sterile technique, 100 cc of injectable saline ws entered without incident. The site was then cleansed with an alcohol pad and a Band-Aid was secured. Pt was informed to leave the Band-Aid in place for 24 hours Return every 2 weeks for TE fills. Pt was advised today that she is not a surgical candidate for JANNETTE surgery. All questions addressed. Oksana Wilkins PA-C 09/08/2021 9:15 documented in this encounter Plan of Treatment Upcoming Encounters Date Type Department Care Team (Late st Contact Info) Description 01/31/2024 13:40 EDT Office Visit [facility] Surgical Oncology - [address] [phone] Maeve Morales, [address], [address] 2 [place] [phone] documented as of this encounter Visit Diagnoses Diagnosis Surgery follow-up- Primary Follow-up examination, following unspecified surgery documented in this encounter Care Teams Septic Cleaner Relationship Specialty Start Date End Date Batsheva Lira FNP [address] [phone] PCP - General 02/19/20 07/21/22 documented as of this encounter
--- OUTSIDE RECORDS SUMMARY | 2023-12-10 17:39 | XMS_ITS | Encounter Summary ---
Author Organization [facility] Address [address] [place] [address] Care Team Providers Care Circulator Name Role Phone Batsheva Lira JOHN Primary Care Provider [phone] Reason for Visit * Reason Onset Date Comments Follow-up 10/29/2021 Encounter Details Date Type Department Care Team (Late st Contact Info) Description 10/29/2021 Telephone [facility] Hematology & Oncology - [address] [phone] Edinson Lorenzana, TECHNICAL SUPPORT TECHNICIAN Follow-up Social History Tobacco Use Types Packs/Day [...] encounter Miscellaneous Notes * Telephone Encounter - Edinson Lorenzana LICSW - 10/29/2021 1442 EDT JUDIT VICK Note: Reason for Call: Pt sent me the name and age of her child so I could apply them for the urgent need fund through Michelle Monteiro. She also asked to use the [employer] monserrat for camping, they've never been. I submitted the applications for both grants and updated [place]. I let her know I emailed the [employer] again asking if she can reapply for financial assistance. Pt Centered Identified Goal: Financial assistance Plan: Will update the pt once Michelle Monteiro has sent their decision. Edinson Lorenzana [facility] ADDENDUM 3:20 Pt is working on sending me her car payment bill for the [employer] Fund documented in this encounter Plan of Treatment Upcoming Encounters Date Type Department Care Team (Late st Contact Info) Description 01/31/2024 13:40 EDT Office Visit [facility] Surgical Oncology - [address] [address] Maeve Morales, 111 [facility], [facility], Level 2 [place] [phone] documented as of this encounter Visit Diagnoses Not on filedocumented in this encounter Care Teams Circulator Relationship Specialty Start Date End Date Batsheva Lira FNP [address] [place] [phone] PCP - General 02/19/20 07/21/22 documented as of this encounter
--- OUTSIDE RECORDS SUMMARY | 2023-12-10 17:39 | XMS_ITS | Encounter Summary ---
Author Organization [facility] Address [address] [place] [address] Care Team Providers Care Looper Fixer Name Role Phone Batsheva Lira Primary Care Provider Pam Germain MD Unavailable [phone] Janay Duran APRN Primary Care Provider Unava ilable Encounter Details Date Type Department Care Team (Late st Contact Info) Description 08/27/2021 Lab Requisition [facility] Pathology & Laboratory Medicine - [facility] [address] [place] [address] Batsheva Lira FNP [address] [place] [phone] Dysuria Social History Tobacco Use Types Packs/Day Years [...] [facility] Surgical Oncology - [address] [phone] Maeve Morales, [address], [address] [place] [address] documented as of this encounter Procedures Procedure Name Priority Date/Time Associated Diagnosis Comments ORGANISM IDENTIFICATION AND SUSCEPTIBILITY Routine 08/25/2021 12:23 EDT Dysuria documented in this encounter Results * (ABNORMAL) ORGANISM IDENTIFICATION AND SUSCEPTIBILITY (08/25/2021 12:23 EDT) Organism ID Escherichia coli(A) VITEK SUSCEPTIBILITY 08/29/2021 9:25 EDT [facility] Comment: Cefazolin susceptibility results can be used to predict susceptibility results for the following oral cephalosporins when used for therapy of uncomplicated UTIs due to E.coli, K.pneumoniae, and P.mirabilis: cefaclor, cefdinir, cefpodoxime, cefprozil, cefuroxime, cephalexin, loracarbef. Cefdinir, cefpodoxime, and cefuroxime may be tested individually because some isolates may be susceptibile to these agents while testing resistance to cefazolin. Please note that only cefpodoxime and cephalexin are on the [facility] inpatient formulary. Organism (organism) URINE / Unknown 08/25/2021 12:23 EDT 08/27/2021 16:14 EDT Narrative Organism Antibiotic Method Susceptibility Escherichia coli Ampicillin VITEK SUSCEPTIBILITY >=32 ug/mL: Resistant Escherichia coli Cefazolin VITEK SUSCEPTIBILITY <=4 ug/mL: Susceptible Escherichia coli Ceftriaxone VITEK SUSCEPTIBILITY <=1 ug/mL: Susceptible Escherichia coli Ciprofloxacin VITEK SUSCEPTIBILITY <=0.25 ug/mL: Susceptible Escherichia coli Ertapenem VITEK SUSCEPTIBILITY <=0.5 ug/mL: Susceptible Escherichia coli Meropenem VITEK SUSCEPTIBILITY <=0.25 ug/mL: Susceptible Escherichia coli Nitrofurantoin VITEK SUSCEPTIBILITY <=16 ug/mL: Susceptible Escherichia coli Piperacillin Tazobactam VITEK SUSCEPT IBILITY <=4 ug/mL: Susceptible Escherichia coli Trimethoprim-Sulfame thox azole VITEK SUSCEPTIBILITY <=20 ug/mL: Susceptible Batsheva LOPEZ MICROBIOLOGY - GENER AL ORDERABLES [facility] [address] [place] [address] documented in this encounter Visit Diagnoses Diagnosis Dysuria documented in this encounter Care Teams Looper Fixer Relationship Specialty Start Date End Date Batsheva Lira FNP [address] [place] [phone] PCP - General 02/19/20 07/21/22 Janay Duran APRN [address] [address] PCP - General Family Medicine - Primary Care 07/22/22 Pam Germain MD [address] [phone] Medical Oncology 03/22/22 documented as of this encounter
--- OUTSIDE RECORDS SUMMARY | 2023-12-10 17:39 | XMS_ITS | Encounter Summary ---
Author Organization [facility] Address [address] [place] [address] Care Team Providers Care Steam Flattener Name Role Phone Batsheva Lira JOHN Primary Care Provider [phone] Pam Germain MD Unavailable [phone] Janay Duran APRN Primary Care Provider Unava ilable Encounter Details Date Type Department Care Team (Late st Contact Info) Description 08/06/2021 Specialty Pharmacy [facility] - [facility] [address] [place], [place] [phone] Petros Vega, [facility] Social History Tobacco Use Types Packs/Day Years [...] Office Visit [facility] Surgical Oncology - [address] [phone] Maeve Morales DO [address] [phone] documented as of this encounter Visit Diagnoses Not on filedocumented in this encounter Care Teams Steam Flattener Relationship Specialty Start Date End Date Batsheva Lira FNP [address] [phone] PCP - General 02/19/20 07/21/22 Janay Duran APRN [address] [place] [phone] PCP - General Family Medicine - Primary Care 07/22/22 Pam Germain MD [address] [place] [phone] Medical Oncology 03/22/22 documented as of this encounter
--- OUTSIDE RECORDS SUMMARY | 2023-12-10 17:39 | XMS_ITS | Encounter Summary ---
Author Organization [facility] Address [address] [place] [address] Care Team Providers Care Retail Interior Designer Name Role Phone Batsheva Lira JOHN Primary Care Provider [phone] Reason for Visit * Reason Comments Pre-op Exam Encounter Details Date Type Department Care Team (Latest Contact Info) Description 09/22/2021 14:00 EDT Office Visit [facility] Pelvic Medicine and Reconstructive Surgery - Medical Office Building [facility] [address] [place] [id number] Mare Echeverria MD 2 [facility] Medical Office Building, [address] [address] Mixed incontinence (Primary Dx); Cystocele, midline Social History Tobacco Use Types Packs/Day Years [...] Sign Reading Time Taken Comments Blood Pressure 118/76 09/22/2021 1404 EDT Pulse 87 09/22/2021 1404 EDT Temperature - - Respiratory Rate - - Oxygen Saturation - - Inhaled Oxygen Concentration - - Weight 77.1 kg (170 lb) 09/22/2021 1404 EDT Height - - Body Mass Index 28.29 06/18/2021 1211 EST documented in this encounter Functional Status [...] this encounter Patient Instructions * Patient Instructions* Ludmila Flor LPN - 09/22/2021 14:00 EDT Images from the original note were not included. [facility] Patient Instructions Learning About Urinary Catheter Care to Prevent Infection What is a urinary catheter? A urinary catheter is a flexible plastic tube used to drain urine from your bladder when you can't urinate on your own. The catheter allows urine to drain from the bladder into a bag. Two types of drainage bags may be used with a urinary catheter. ?? A bedside bag is a large bag that you can hang on the side of your bed or on a chair. You can use it overnight or anytime you will be sitting or lying down for a long time. ?? A leg bag is a small bag that you can use during the day. It is usually attached to your thigh or calf and hidden under your clothes. Having a urinary catheter increases your risk of getting a urinary tract infection. Germs may get on the catheter and cause an infection in your bladder or kidneys. The longer you have a catheter, the more likely it is that you will get an infection. You can help prevent this problem with good hygiene and careful handling of your catheter and drainage bags. How can you help prevent infection? Take care to be clean ?? Always wash your hands well before and after you handle your catheter. ?? Clean the skin around the catheter twice a day using soap and water. Dry with a clean towel afterward. You can shower with your catheter and drainage bag in place unless your doctor told you not to. ?? When you clean around the catheter, check the surrounding skin for signs of infection. Look for things like pus or irritated, swollen, red, or tender skin around the catheter. Be careful with your drainage bag ?? Always keep the drainage bag below the level of your bladder. This will help keep urine from flowing back into your bladder. ?? Check often to see that urine is flowing through the catheter into the drainage bag. ?? Empty the drainage bag when it is half full. This will keep it from overflowing or backing up. ?? When you empty the drainage bag, do not let the tubing or drain spout touch anything. Be careful with your catheter ?? Do not unhook the catheter from the drain tube. That could let germs get into the tube. ?? Make sure that the catheter tubing does not get twisted or kinked. ?? Do not tug or pull on the catheter. And make sure that the drainage bag does not drag or pull onthe catheter. ?? Do not put powder or lotion on the skin around the catheter. ?? Do not have sexual intercourse while wearing a catheter. How do you empty a urine drainage bag? . If your doctor has asked you to keep a record, write down the amount of urine in the bag before youempty it. Wash your hands before and after you touch the bag. 1. Remove the drain spout from its sleeve at the bottom of the drainage bag. 2. Open the valve on the drain spout. Let the urine flow out into the toilet or a container. Be careful not to let the tubing or drain spout touch anything. 3. After you empty the bag, wipe off any liquid on the end of the drain spout. Close the valve. Then put the drain spout back into its sleeve at the bottom of the collection bag. How do you change from a bedside bag to a leg bag? Wash your hands before and after you handle the bags. 1. Empty the bag attached to the catheter. 2. Put a clean towel under the catheter where it connects to the bag. 3. Fold and pinch the catheter closed to keep urine from leaking out. Many catheters have a clip you can use to pinch the tube closed. 4. Remove the used bag from the catheter. 5. Use an alcohol wipe to clean the tip of the leg bag. Then connect the leg bag to the catheter. 6. Strap the leg bag to your thigh or calf. Be sure the straps are not too tight. How can you clean a drainage bag? Clean your bags every day. Many people clean their bedside bag in the morning when they switch to aleg bag. At night, they attach the bedside bag and clean the leg bag. To clean a drainage ba. Remove the bag from the catheter. 2. Fill the bag with 2 parts vinegar and 3 parts water. Let it stand for 20 minutes. 3. Empty the bag, and let it air dry. When should you call for help? Call your doctor now or seek immediate medical care if: ?? You have symptoms of a urinary infection. These may include: ?? Pain or burning when you urinate. ?? A frequent need to urinate without being able to pass much urine. ?? Pain in the flank, which is just below the rib cage and above the waist on either side of the back. ?? Blood in your urine. ?? A fever. ?? Your urine smells bad. ?? You see large blood clots in your urine. ?? No urine or very little urine is flowing into the bag for 4 or more hours. Watch closely for changes in your health, and be sure to contact your doctor if: ?? The area around the catheter becomes irritated, swollen, red, or tender, or there is pus draining from it. ?? Urine is leaking from the place where the catheter enters your body. Follow-up care is a mack part of your treatment and safety. Be sure to make and go to all appointments, and call your doctor if you are having problems. It's also a good idea to know your test resultsand keep a list of the medicines you take. [facility] Removing an Indwelling Urinary Catheter Follow these instructions to remove your catheter on the day that your doctor recommends About the catheter An indwelling catheter has a fluid-filled balloon that keeps it from falling out. Before removing the catheter, you need to deflate this balloon. Pulling the catheter out without fully deflating the balloon can cause injury to the bladder or urethra. Assemble your supplies You will need: ??? Syringe without needle ??? Soap and water to wash hands ??? Plastic trash bag to discard catheter Procedure to follow 1. Wash your hands well before and after removing the catheter. 2. Deflate the balloon. To deflate the balloon, attach a syringe without a needle to the inflation port. The inflation port has a special tip that fits the syringe. 3. Push syringe into port while gently pulling back on the plunger. The water in the balloon will flow into the syringe, deflating the balloon. Up to 10 ml will begin to flow into the syringe. Withdraw fluid until no more liquid comes into the syringe. 4. Gently pull on the catheter. The catheter should slide out easily. 5. If you are unable to withdraw water from the inflation port, try reinserting the syringe. 6. If you have misplaced the syringe, you may cut the catheter just below the inflation port and just above the Y in the catheter. The water in the balloon will escape from the cut end. Gently pull on the catheter. It should slide out easily. 7. If the catheter does not come out easily, don???t force it. Instead, call our office at [phone]. documented in this encounter Ordered Prescriptions Prescription Sig Dispensed Refills Start Date End Da te HYDROmorphone (DILAUDID) 2 mg tablet Take 1 Tablet by mouth every 4 hours as needed for up to 2 days (post op). Daily Max: 12 mg 10 Tablet 09/22/2021 09/24/2021 documented in this encounter Progress Notes * Mare Echeverria MD - 09/22/2021 1400 EDT Subjective: Patient ID: Austin Squires is an 46 y.o. female. Chief Complaint Patient presents with ??? Pre-op Exam HPI: Austin is a 45-year-old premenopausal patient presents for preop. She is undergoing TVT and anterior repair for h/o SHAYY and cystocele. She is known to me through [facility] and I have seen her in the past for history of mixed incontinence. Patient had been booked in June 2020 TVT/anterior colporrhaphy. Soon after that, patient was diagnosed with breast cancer and is ultimately underwent surgery, and chemo. She is now back and wishes to have surgery. She notes urgency and frequency was significantly improved with oxybutynin and would like to like to restart medication. SHAYY still quite bothersome and wishes to have surgery, would like to be rebooked. Patient had undergone urodynamics through [facility] which showed severe urinary stress incontinence. No evidence of detrusor overactivity at that time. ?? Besides new diagnosis of breast cancer, patient is otherwise doing well. She has a Mirena IUD and is not sexually active at the moment although has a new partner. She has no other gynecologic concerns. Patient Active Problem List Diagnosis ??? 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 Breast cancer in female (HCC-CMS) (HCC) ??? Hepatic steatosis ??? Hypertension ??? History of anxiety Past Medical History: Diagnosis Date ??? Activity, other involving cardiorespiratory exercise just signed up for steps to wellness ??? Bladder incontinence ??? Cancer (HCC-CMS) (HCC) ??? Exercise involving housework ??? Exercise [...] History Tobacco Use ??? Smoking status: Former Smoker Packs/day: 0.50 Years: 30.00 Pack years: 15.00 Types: Cigarettes Quit date: 09/17/2020 Years since quittin.0 ??? Smokeless tobacco: Never Used ??? Tobacco comment: pt also vapes, once in awhile Vaping Use ??? Vaping Use: Former ??? Substances: Nicotine (3mg or none) ??? Devices: Disposable Substance Use Topics ??? Alcohol use: Yes Comment: rarely ??? Drug use: Not Currently Current Outpatient Medications on File Prior to Visit Medication Sig Dispense Refill ??? amLODIPine (NORVASC) 2.5 mg tablet Take 2.5 mg by mouth daily. ??? escitalopram oxalate (LEXAPRO) 10 mg tablet Take 20 mg by mouth daily. ??? INTRAUTERINE DEVICE, IUD, INTRAUTERINE by intrauterine route. ??? metformin HCl (METFORMIN ORAL) Take by mouth. ??? oxybutynin (DITROPAN XL) 5 mg CR tablet Take 1 Tablet by mouth daily for 210 days. 30 Tablet 6 ??? traZODone (DESYREL) 50 mg tablet Take 50 mg by mouth daily. No current facility-administered medications on file prior to visit. Allergies Allergen Reactions ??? Ondansetron Other (See Comments) Dose to be limited to under 16mg daily while on Lexapro as EKG showed QTC as 0.4 ??? Oxycodone Other (See Comments) Made her hyper Review of Systems - See HPI Objective: BP 118/76 (BP Cuff Location: Right arm, BP Patient Position: Sitting) Pulse 87 Wt 77.1 kg (170 lb) BMI 28.29 kg/m?? Physical Exam Constitutional: She is oriented to person, place, and time. She appears well- developed and well-nourished. Eyes: Pupils are equal, round, and reactive to light. EOM are normal. Pulmonary/Chest: Effort normal. Abdominal: Soft. Musculoskeletal: General: Normal range of motion. Cervical back: Normal range of motion and neck supple. Neurological: She is alert and oriented to person, place, and time. Skin: Skin is warm and dry. Psychiatric: She has a normal mood and affect. Judgment normal. Assessment/Plan: We discussed the procedures, related anatomy, and the potential risks. Possible complications include failure of repair, recurrence, bleeding, infection, damage to the bladder and bowel, voiding difficulty/dysfunction, need for prolonged catheterization, tape exposure, pelvic pain-all which may require repeat surgery, or potentially become a permanent problem. We reviewed post operative care and restrictions. Recommend refraining from strenuous activity, exercise, heavy lifting (heavier than 5 lbs), and intercourse for four to six weeks. Pt understands risks, benefits, and alternatives. Consent reviewed in detail in layman's terms and signed. I spent a total of 25 minutes on the date of this encounter meeting with the patient and reviewing documentation/coordinating care as described in the above note. No procedures were performed at the time of the visit. Mare Echeverria MD documented in this encounter Plan of Treatment Upcoming Encounters Date Type Department Care Team (Late st Contact Info) Description 01/31/2024 13:40 EDT Office Visit [facility] Surgical Oncology - [address] [id number] Maeve Morales, [address] [place] [address], [address] [place] [phone] documented as of this encounter Visit Diagnoses Diagnosis Mixed incontinence- Primary Mixed incontinence urge and stress (male)(female) Cystocele, midline documented in this encounter Care Teams Retail Interior Designer Relationship Specialty Start Date End Date Batsheva Lira FNP [address] [phone] PCP - General 02/19/20 07/21/22 documented as of this encounter
--- OUTSIDE RECORDS SUMMARY | 2023-12-10 17:39 | XMS_ITS | Encounter Summary ---
Author Organization [facility] Address [address] [place] [address] Care Team Providers Care Registered Dental Assistant Rda Name Role Phone Batsheva Lira JOHN Primary Care Provider [phone] Reason for Visit * Reason Onset Date Comments Follow-up 10/28/2021 Encounter Details Date Type Department Care Team (Late st Contact Info) Description 10/28/2021 Telephone [facility] Hematology & Oncology - [address] [id number] Edinson Lorenzana, INK GRINDER Follow-up Social History Tobacco Use Types Packs/Day [...] Telephone Encounter - Edinson Lorenzana LICSW - 10/28/2021 1532 EDT JUDIT VICK Note: Reason for Call: I emailed Austin letting her know that the [employer] said she can reapply for assistance give the fact she's pursuing reconstruction surgery. I sent her the following message, Lyn Avila Codota replied and said absolutely you can reapply for assistance. You or I can apply for [facility] that are available, Home [employer] If you want me to apply, I will need the name and age of your child. There is an urgent need monserrat for $300 and a Ana Paula???s Wish monserrat for $500. The first monserrat is for clothes, school supplies, foodetc. The second is a monserrat for you and your family to do something fun together. If you want me to apply on your behalf, I would just need to know what you guys would use the $500 for. Let me know, Pt Centered Identified Goal: Financial assistance Plan: Waiting to hear back from Robin. Edinson COON documented in this encounter Plan of Treatment Upcoming Encounters Date Type Department Care Team (Late st Contact Info) Description 01/31/2024 13:40 EDT Office Visit [facility] Surgical Oncology - [address] [address] Maeve Morales, DO [address] [facility], [address] [place] [phone] documented as of this encounter Visit Diagnoses Not on filedocumented in this encounter Care Teams Registered Dental Assistant Rda Relationship Specialty Start Date End Date Batsheva Lira FNP [address] [address] PCP - General 02/19/20 07/21/22 documented as of this encounter
--- OUTSIDE RECORDS SUMMARY | 2023-12-10 17:39 | XMS_ITS | Encounter Summary ---
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) (HCC) (HCC-CMS) (Primary Dx) Social History [...] Sign Reading Time Taken Comments Blood Pressure 122/69 11/06/2021928 EDT Pulse 73 11/06/2021928 EDT Temperature 35.9 ??C (96.7 ??F) 11/06/2021928 EDT Respiratory Rate 16 11/06/2021928 EDT Oxygen Saturation 98% 11/06/2021928 EDT Inhaled Oxygen Concentration - - Weight 75.3 kg (166 lb 1.6 oz) 11/06/2021928 E DT Height 167.5 cm (5' 5.95) 11/06/2021928 EDT Body Mass Index 26.85 11/06/2021928 EDT documented in this encounter Functional Status [...] Progress Notes * Pam Germain MD - 11/06/2021 0915 EDT Medical Oncology Note Date: 11/05/21 Name: Austin Squires Surgeon: Dr. 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 Plan 1. Repeat CMP in fall to monitor LFTs 2. Follow-up with plastics (Dr. Carcamo) as scheduled 3. Follow-up with Dr. Morales scheduled August 11 Follow-up: in 6 months Oncology History 1. Early stage TNBC Breast Cancer ?? Plant Control Operator noticed a mass in her left breast in early June 2020 ?? Imaging and a biopsy on 07/09/20??of a 2.1 cm mass revealed a nuclear grade 3 ER negative TN negative for HER2 negative ductal carcinoma.? Staging [...] testing: negative (9 gene panel performed through [facility] was performed) Subjective Patient presents today in follow up. She has finished the filling process for her breast implants with further reconstructive surgery planned. Overall she feels well. No lingering side effects of chemotherapy noted, with the exception of some memory changes that are mild. Her energy level has improved although she still notes some fatigue but thinks this may be attributed to exerting herself quite a bit. Past Medical & Surgical History: 1. Hepatic steatosis 2. HTN 3. Anxiety 4. Urinary incontinence 5. Cholecystectomy in 2018 Medications: Reviewed. Allergies: Reviewed. Social History: Lives in [place]. Has young daughter (age 9 or 10) and two adult children (early 20s, boy [...] his 90s. ??Her paternal relatives are of [place] descent. Objective Performance Status: ECOG PS 0 Physical Exam There were no vitals taken for this visit. General: Appears in no distress Skin: No rashes Pulm: No increased work of breathing on room air Lymph Node Exam: No palpable cervical lymphadenopathy. No supraclavicular lymphadenopathy. No palpable axillary lymphadenopathy. Chest Exam: S/p bilateral mastectomies with expanders in place. No masses or concerning findings. I have personally reviewed the relevant studies as follows: Labs: AST and ALK phos down-trending ALT up a bit from last blood work but overall stable Imaging: NA Pam Germain MD 11/05/2021 16:06 Hematology/Oncology Fellow PGY6 I saw and examined the patient with the hematology/oncology fellow. I have reviewed the note and agree with the findings and plan of care as documented above. Ciara Gordon MD documented in this encounter Plan of Treatment Upcoming Encounters Date Type Department Care Team (Late st Contact Info) Description 01/31/2024 13:40 EDT Office Visit [facility] Surgical Oncology - [address] [address] Maeve Morales, DO [address] [facility], [address] [place] [phone] documented as of this encounter Visit Diagnoses Diagnosis Triple negative malignant neoplasm of breast (HCC-CMS)- Primary documented in this encounter Care Teams Florist'S Decorator Relationship Specialty Start Date End Date Batsheva Lira FNP [address] [phone] PCP - General 02/19/20 07/21/22 documented as of this encounter
--- OUTSIDE RECORDS SUMMARY | 2023-12-10 17:39 | XMS_ITS | Encounter Summary ---
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, estrogen receptor negative, unspecified laterality ([facility]) Procedures MA REPLACEMENT TISSUE ARTIST COLOR SEPARATION W/PERMANENT IMPLANT MA REVISION OF RECONSTRUCTED BREAST MA GRAFTING OF AUTOLOGOUS FAT BY LIPO 50 CC OR LESS Juanito Carcamo MD FACS [address] [facility] [address] [place] [phone] Referral ID Status Reason Start Date Expiration Date Visits Re quested Visits Authorized [id number] 08/22/2021 1 1 Encounter Details Date Type Department Care Team (Late st Contact Info) Description 01/11/2022 7:25 EDT - 01/11/2022 12:30 EDT Surgery [facility] [place] [address] [place], [place] [address] Juanito Carcamo MD FACS [address] [facility] [address] [place] [phone] bilateral exchange of tissue expanders to silicone implants with fat grafting for breast reconstruction (fat from abdomen) [95121 (CPT??)] Surgery Details Date/Time Status Location OR Service Patient Class Case Cl ass Case Type Trauma Case? 01/11/22 0725 Posted [facility] OR [facility] Plastics [facility] Outpatient Surgery H - Elective Panel 1 Procedure LRB Anes Op Region Wound Class Comments bilateral exchange of tissue expanders to silicone implants with fat grafting for breast reconstruction (fat from abdomen) Bilateral General Breast Class I / Clean REVISION, RECONSTRUCTION, BR EAST, BILATERAL, USING FAT GRAFT Bilateral General Breast Class I/ Clean Surgeon Surgeon Role Service Panel Juanito Carcamo MD [facility] Primary Plastics 1 Anali Navas PA-C Assisting Plastics 1 Yelitza Etienne MD Resident - Assisting General 1 Yelitza Etienne MD Resident - Assisting General 1 Special Needs Waiting for implant orders documented in this encounter Social History Tobacco [...] Exposure Response Date Recorded In the last month, have you been in contact with someone who was confirmed or suspected to have Coronavirus / COVID-19? No / Unsure 02/27/2021 15:09 EDT documented as of this encounter Last Filed Vital Signs Vital Sign Reading Time Taken Comments Blood Pressure 101/70 01/11/2022 0631 EDT Pulse - - Temperature 36.9 ??C (98.4 ??F) 01/11/2022 0631 EDT Respiratory Rate 16 01/11/2022 0631 EDT Oxygen Saturation 98% 01/11/2022 0631 EDT Inhaled Oxygen Concentration - - Weight 73.3 kg (161 lb 9.6 oz) 01/11/2022 0631 E DT Height 167.6 cm (5' 6) 01/11/2022 0631 EDT Body Mass Index 26.08 01/11/2022 0631 EDT documented in this encounter [...] cephalexin (KEFLEX) 500 mg capsule Take 1 capsule by mouth 4 times daily for 5 days. 20 capsule 01/11/2022 01/16/2022 escitalopram oxalate (LEXAPRO) 10 mg tablet Take 30 mg by mouth daily. 12/03/2022 HYDROmorphone (DILAUDID) 2 mg tablet Take 1 Tablet by mouth every 4 hours as needed for Pain. Daily Max: 12 mg 20 Tablet 01/11/2022 01/19/2022 metformin HCl (METFORMIN ORAL) Take by mouth. traZODone (DESYREL) 50 mg tablet Take 50 mg by mouth as needed. 12/03/2022 documented as of this encounter Ordered Prescriptions Prescription Sig Dispensed Refills Start Date End Da te cephalexin (KEFLEX) 500 mg capsule Take 1 capsule by mouth 4 times daily for 5 days. 20 capsule 01/11/2022 01/16/2022 HYDROmorphone (DILAUDID) 2 mg tablet Take 1 Tablet by mouth every 4 hours as needed for Pain. Daily Max: 12 mg 20 Tablet 01/11/2022 01/19/2022 documented in this encounter Discharge Disposition Disposition Code Departure Means Destination Home or Self [facility] documented in this encounter H&P Notes * Colleen Marin MD - 01/11/2022 0617 EDT The preoperative history and physical which was performed within 30 days of this procedure has beenreviewed and the clinically appropriate elements of the physical examination have been repeated. There are no changes to the documented history and physical or if so such changes are documented below Colleen Marin MD 01/11/2022 6:17 Source Note - COMPLAINT INVESTIGATOR, SCAN 2 - 12/31/2021 9:13 EDT documented in this encounter Nursing Notes * Leticia Hernandez RN - 01/11/2022 0643 EDT Preop Covid DOS screening questionnaire Please document by exception (only check those that apply). Have you had any of the following symptoms recently? no Yes Chronic ? Cough Shortness of breath or difficulty breathing Fever Chills Fatigue Muscle or body aches Severe Headache New loss of taste or smell Sore throat Congestion or runny nose Rash Nausea, vomiting, or diarrhea (rare in adults. More common in children) Have you had any exposure to a COVID + person since your covid test (in the last 5 days)? no Have you tested positive in the last 90 days for COVID by PCR and or home test? no Were you covid tested? n/a When: Results: Vaccinated: YES See admission vital signs documentation for admission temperature. documented in this encounter OR Notes * OR Surgeon - Juanito Carcamo MD FACS - 01/11/2022 1502 EDT Operative Note Date: 01/11/2022 Location: [facility] OR Name: Austin Squires, : 1975, PREOPERATIVE DIAGNOSIS: 1. S/P bilateral tissue manufacturers representative breast reconstruction with allograft. POSTOPERATIVE DIAGNOSIS: 1. S/P bilateral tissue manufacturers representative breast reconstruction with allograft. PROCEDURE : 1. Exchange of Bilateral Tissue Expanders to Silicone Implants. 2. Fat grafting from abdomen to bilateral breasts. Surgeons: * Juanito Carcamo MD FACS - Primary * Anali Navas PA-Sebastian - Assisting * Colleen Mrain MD - Resident - Assisting Physician Patient Educator Attestation: Ms. Alfaro necessary and integral participant in the case and present for the entirety of the case. She served to provide aid in exposure, hemostasis, closure and other intraoperative technical functions that helped me carry out a safe operation with optimal results for the patient.) There is no plastic surgery training program at the [facility] and as such there was no qualified resident available to assist. Procedure Summary Anesthesia: General ASA: II Estimated Blood Loss: 100 mL INDICATIONS: Please see office dictation. Briefly, Austin Squires is a 46 y.o. female who has undergone bilateral tissue manufacturers representative breast reconstruction with allograft. She is here for exchange of theexpanders to silicone implants with fat grafting from her abdomen. Risk and benefits of both procedures have been thoroughly explained to the patient. Implant-based complications including but not limited to capsular contracture, infection, malposition and rupture were discussed. Discussions related to fat grafting included but were not limited to infection, bleeding, greater than expected 30 to 40% loss of injected fat and donor site deformity. Signed informed [place] [employer] and signed informed hospital consents have been obtained and will be scanned into the electronic health record. NARRATIVE: The patient was seen preoperatively and marked accordingly by me. Stage I of the WHO checklist was appropriately completed. The patient was then taken to the operative suite and placed supine on the operating table. Sequential compression devices were placed. Preoperative antibiotics were given. After general endotracheal anesthesia was induced without incident, the patient was preppedwith ChloraPrep and draped in the standard sterile manner. Stage II the WHO checklist was appropriately completed. Through 14 gauge puncture sites the Ramesh cannula was used to infuse the abdomen Rmaesh solution. This was allowed to take effect for a full 10 minutes. The abdomen was liposuctioned usi ng the large volume fat grafting set and a Rhina cheese grater cannula. The fat was then decanted,lightly centrifuged and prepared in 10 cc syringes for injection. While the fat was being prepared the mastectomy scars were excised and sent for permanent pathology. The AlloDerm pectoralis junctionwere then identified and opened with Bovie electrocautery. The expanders were ruptured and removed.Capsulotomies were performed bilaterally from inferior medial to superior lateral. A series of temporary sizers were placed. I eventually selected the 755 cc [place] smooth round Moderate Plus Xtra profile silicone implant sizer. The Alloderm to pectoralis junction was closed temporarily with PDS suture bilaterally and the skin envelope was temporarily stapled together. The patient was placed in seated position and the symmetry assessed. A series of sizers were trialed. Once I was happy with theappearance the prepared fat was then injected to thicken the envelope and camouflage the edges of the implant. Of the 600 cc of lipoaspirate, 245 cc resulted from processing. obtained A total of 90 ml of fat was injected on the left and a total of 100 ml of fat was injected on the right. The patient was placed back supine. The temporary closures were reopened. The sizer was removed and the pockets thoroughly irrigated with antibiotic solution. Implants matching the sizers were placed. The pectoralis AlloDerm junctions were closed with buried interrupted 3-0 PDS suture. The skin was closed with buried interrupted 3-0 Monocryl and running 4-0 Monocryl. The incisions were dressed with benzoin and 1 inch sterile paper tape. Abdominal donor sites were closed with buried interrupted 5-0 Monocryl and Dermabond. At all times when an implant or sizer was handled gloves were changed, instruments were dipped in antibiotic solution and meticulous sterile technique was maintained. I was only one to handle the sizer/implant. Patient was awakened extubated and transferred to recovery room in stable condition. At the end of the case all needle instrument and sponge counts were correct. The postoperative brief noted no deficiencies. The third stage of the WHO checklist was appropriately completed. documented in this encounter Miscellaneous Notes * Brief Op Note - Anali Navas PA-C - 01/11/2022 7619 EDT Brief Op Note Date of Surgery: 01/11/2022 Surgeon: Juanito Carcamo MD Assistants: TACO Ha MD Pre-Op Diagnosis: hx of breast cancer Post-Op Diagnosis: same as preop Procedure(s): replacement of bilateral tissue expanders for silicone implants, fat grafting from abdomen to bilateral breasts Findings: See attending dictation for complete operative details. Anesthesia Type: General Estimated Blood Loss: Unless otherwise noted, there was no blood loss, specimens removed, cultures obtained, or drains retained. The estimated blood loss was less than 100 mL Fluids: Austin Squires received Crystalloids 1500 mL of fluid replacement. Urine Output: 350cc Specimens/Cultures: right mastectomy scar, left mastectomy scar, right breast tissue, left breast tissue was sent for Routine Pathology Drains/Packs: None Complications: None Disposition and Condition: Austin Squires was sent to PACU in Good condition. Plan: PACU and then home - tylenol and dilaudid for pain - no nsaids for one week - keflex for 5 days - dressings on at all times, may remove in 48 hours only to shower - f/u in clinic Anali Navas PA-C 01/11/2022 13:09 CPT: [ ] documented in this encounter Plan of Treatment Upcoming Encounters Date Type Department Care Team (Late st Contact Info) Description 01/31/2024 13:40 EDT Office Visit [facility] Surgical Oncology - [address] [phone] Maeve Morales DO [address] [facility] [place] [phone] Scheduled Referrals Name Type Priority Associated Diagnoses Order Schedule PROVIDER FOLLOW-UP INSTRUCTIONS Outpatient Referral Routine/Next Available Ordered: 01/11/2022 PROVIDER FOLLOW-UP INSTRUCTIONS Outpatient Referral Routine/Next Available Ordered: 01/11/2022 PROVIDER FOLLOW-UP INSTRUCTIONS Outpatient Referral Routine/Next Available Ordered: 01/11/2022 documented as of this encounter Procedures Procedure Name Priority Date/Time Associated Diagnosis Comments IMPLANT RECORD - SCANNED 01/13/2022 14:52 EDT IMPLANT RECORD - SCANNED 01/12/2022 13:50 EDT POCT GLUCOSE, INTERFACED Routine 01/11/2022 13:24 EDT SURGICAL PATHOLOGY Routine 01/11/2022 8: 29 EDT REVISION, RECONSTRUCTION, BREAST, BILATERAL, USING FAT GRAFT 01/11/2022 7:23 EDT 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, estrogen receptor negative, unspecified laterality (HCC-CMS) (HCC) (HCC-CMS) Special Needs Waiting for implant orders REMOVAL, TISSUE ARTIST COLOR SEPARATION, BREAST, BILATERAL, WITH BILATERAL BREAST IMPLANT INSERTION 01/11/2022 7:23 EDT 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, estrogen receptor negative, unspecified laterality (HCC-CMS) (HCC) (HCC-CMS) Special Needs Waiting for implant orders POCT GLUCOSE, INTERFACED Routine 01/11/2022 7:06 EDT TEST, URINE STAT 01/11/2022 6:24 EDT documented in this encounter Results * IMPLANT RECORD - SCANNED (01/13/2022 14:52 EDT) 01/13/2022 14:5 2 EDT Scan 2 Batch Records Clerk PROCEDURE/MINOR KHURRAM GICAL ORDERABLES * IMPLANT RECORD - SCANNED (01/12/2022 13:50 EDT) 01/12/2022 13:5 0 EDT Scan 2 Batch Records Clerk PROCEDURE/MINOR KHURRAM GICAL ORDERABLES * (ABNORMAL) POCT GLUCOSE, INTERFACED (01/11/2022 13:24 EDT) Glucose, POC 149(H) 70 - 100 mg/dL 01/11/2022 13:25 EDT [facility] HN LAB POC COMMENT (GLUCOSE) Test Performed by Nursing Services 01/11/2022 13:25 EDT [facility] Blood CAPILLARY BLOOD / Unknown 01/11/2022 13:24 EDT 01/11/2022 13:25 EDT Ric Allen MD PhD POINT O F CARE TEST ORDERABLES [facility] [address] [place] [address] * SURGICAL PATHOLOGY (01/11/2022 8:29 EDT) Note to Patient The following pathology results have been interpreted by your pathologist and may be available to you before your health provider has had the opportunity to review them. Please allow time for your provider to receive these results and explore management options, if applicable. 01/13/2022 14:56 EDT [facility] Final Diagnosis A. BREAST, RIGHT, MASTECTOMY SCAR, EXCISION: - [...] with reparative changes. - Negative for malignancy. 01/13/2022 14:56 EDT [facility] Attestation There was significant resident/fellow involvement in the diagnostic evaluation of this case. By the signature below, the attending physician certifies that they have personally conducted a gross and/or microscopic examination of the described specimens and rendered or confirmed the above diagnosis. 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 Received in normal saline labelled with proper patient identification (initials H, R) and right mastectomy scar is an elongated centrally scarred elliptical skin, 14.5 x 0.4 cm which is excised to depth of 0.5 cm. Areas of mild slight firmness are present. Received in the same container is an irregular fibrofatty tissue, 3.5 x 0.5 x 0.4 cm. Per Diem sections are submitted in A1. B. Received in normal saline labelled with proper patient identification (initials H, R) and left mastectomy scar is an elongated centrally scarred elliptical skin, 13.2 by 0.5 cm which is excised to a depth of 0.4 cm. Areas of mild slight firmness are present. Per Diem sections are submitted in B1. C. Received in normal saline labelled with proper patient identification (initials H, R) and ? left breast tissue are irregular and elliptical portions of skin and fibroadipose tissue aggregating 20 g. The skin surfaces are without gross lesions. The fibroadipose tissues are without areas of induration. Per Diem sections are submitted in C1. D. Received in normal saline labelled with proper patient identification (initials H, R) and right breast tissue are irregular and elliptical portions of skin and fibroadipose tissue aggregating 15 g. The skin surfaces range from smooth rivera-brown to sosa and wrinkled. The fibroadipose tissues are without areas of induration. Per Diem sections are submitted in D1. SOCORRO LARSON(ASCP) 01/12/2022 10:24 01/13/2022 14:56 EDT [facility] Resident/Chris w: Mikey Self MD 01/13/2022 14:56 EDT [facility] Performing Lab [facility] 01/13/2022 14:56 EDT [facility] Scanned Images 01/13/2022 14:56 EDT [facility] Tissue TISSUE SPECIMEN FROM SKIN / Unknown 01/11/2022 8:29 EDT 01/11/2022 13:11 EDT Tissue specimen (specimen) SPECIMEN FROM SKIN / Unknown 01/11/2022 8:29 EDT 01/11/2022 13:11 EDT Tissue specimen (specimen) SPECIMEN FROM SKIN / Unknown 01/11/2022 9:59 EDT 01/11/2022 13:11 EDT Tissue specimen (specimen) SPECIMEN FROM SKIN / Unknown 01/11/2022 10:21 EDT 01/11/2022 13:11 EDT Juanito Carcamo MD FACS PATHOLOGY OR DERABLES [facility] [address] [place] [address] * (ABNORMAL) POCT GLUCOSE, INTERFACED (01/11/2022 7:06 EDT) Glucose, POC 134(H) 70 - 100 mg/dL 01/11/2022 7:13 EDT [facility] HN LAB POC COMMENT (GLUCOSE) Test Performed by Nursing Services 01/11/2022 7:13 EDT [facility] Blood CAPILLARY BLOOD / Unknown 01/11/2022 7:06 EDT 01/11/2022 7:13 EDT Juanito Carcamo MD FACS POINT OF CAR E TEST ORDERABLES Performing Organization Address City/[facility] Co de Phone Number [facility] [address] [place] [address] * TEST, URINE (01/11/2022 6:24 EDT) Test, Urine Negative Negative 01/11/2022 6:38 EDT [facility] Comment:False negative resul ts may occur in women who are beyond 5-8 weeks gestation. Diagnosis of should be based on a correlation of test results with typical clinical signs and symptoms. 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, estrogen receptor negative, unspecified laterality (HCC-CMS) documented in this encounter Administered Medications Inactive Administered Medications - up to 3 most recent administrations Medication Order MAR Action Action Date Dose Rate Site atropine 0.1 mg/mL syringe 0.5 mg 0.5 mg, intravenous, PRN, Starting on Tue01/11/22 at 1303, Until Tue01/11/22 at 1703, Symptomatic HR < 50, Routine, Recovery (only) bupivacaine-EPINEPHrine (PF) 0.5 %-1:200,000 injection PRN, Starting on Tue01/11/22 at 1202, Until Tue01/11/22 at 1312, Routine, Intraprocedure Given 01/11/2022 12:02 EDT 15 mL Given 01/11/2022 11:45 EDT 15 mL diphenhydrAMINE (BENADRYL) injection 12.5 mg 12.5 mg, intravenous, PRN, 1 dose, Starting on Tue01/11/22 at 1303, Until Tue01/11/22 at 1703, nausea, Routine, Recovery (only) fentaNYL citrate (PF) injection 25-50 mcg 25-50 mcg, intravenous, EVERY 5 MIN PRN, Starting on Tue01/11/22 at 1303, Until Tue01/11/22 at 1703, Pain, Routine, Recovery (only) HYDROmorphone (PF) (DILAUDID) 0.5 mg/0.5 mL syringe 0.3-0.5 mg 0.3-0.5 mg, intravenous, EVERY 10 MINUTES PRN, Starting on Tue01/11/22 at 1303, Until Tue01/11/22 at 1703, Pain, Routine, Recovery (only) lactated ringers (LR) infusion at 25 mL/hr, intravenous, CONTINUOUS, Starting on Tue01/11/22 at 0645, Until Tue01/11/22 at 1703, Routine, Preprocedure New Bag 01/11/2022 9:25 EDT New Bag 01/11/2022 7:56 EDT Continued by Anesthesia 01/11/2022 7:33 EDT 25 mL/hr lactated ringers (LR) infusion at 75 mL/hr, intravenous, PACU CONTINUOUS, Starting on Tue01/11/22 at 1330, Until Tue01/11/22 at 1703, Routine, Recovery (only) naloxone (NARCAN) injection 0.2 mg 0.2 mg, intravenous, PRN, Starting on Tue01/11/22 at 1303, Until Tue01/11/22 at 1703, Opioid Reversal, Routine, Recovery (only) ondansetron (PF) (ZOFRAN) injection 4 mg 4 mg, intravenous, PRN, 1 dose, Starting on Tue01/11/22 at 1303, Until Tue01/11/22 at 1703, Nausea, Vomiting, Routine, Recovery (only) povidone-iodine (BETADINE) 10 % external solution PRN, Starting on Tue01/11/22 at 0842, Until Tue01/11/22 at 1312, Intraprocedure Given 01/11/2022 8:42 EDT 120 mL sodium chloride (NS) 0.9 % 1,000 mL with lidocaine 20 mg/mL (2 %) 20 mL, EPINEPHrine (ADRENALIN) 1 mL PRN, Starting on Tue01/11/22 at 0842, Until Tue01/11/22 at 1312, Routine, Intraprocedure Given 01/11/2022 8:42 EDT 50 0 mL sodium chloride 0.9 % 1,000 mL with ceFAZolin (ANCEF) 1,000 mg, gentamicin (GARAMYCIN) 100 mg PRN, Starting on Tue01/11/22 at 0842, Until Tue01/11/22 at 1312, Routine, Intraprocedure Given 01/11/2022 8:42 EDT 1,000 mL sodium chloride 0.9 % 1,000 mL with povidone-iodine (BETADINE) 10 % 60 mL, ceFAZolin (ANCEF) 1,000 mg, gentamicin (GARAMYCIN) 100 mg PRN, Starting on Tue01/11/22 at 0842, Until Tue01/11/22 at 1312, Routine, Intraprocedure Given 01/11/2022 8:42 EDT 1,000 mL documented in this encounter Discontinued Medications Medication Sig Discontinue Reason Start Date End Da te amLODIPine (NORVASC) 2.5 mg tablet Take 2.5 mg by mouth daily. Therapy completed 01/11/2022 INTRAUTERINE DEVICE, IUD, INTRAUTERINE by intrauterine route. Therapy completed 01/11 oxybutynin (DITROPAN XL) 5 mg CR tablet Take 1 Tablet by mouth daily for 210 days. Therapy completed 09/01/2021 01/11/2022 documented as of this encounter Active and Recently Administered Medications Times are shown in EDT. Scheduled Medication Order 01/09/2022 01/10/2022 01/11/2022 ceFAZolin (ANCEF) syringe 2 g (COMPLETED) 2 g, intravenous, Administer over 5 Minutes, PRE-OP ONCE, 1 dose, On Tue01/11/22 at 0645, Routine 0753 (Given - Provid er: Fabiola Kilgore CRNA)1149 (Given - Provider: Ric Allen MD PhD)1316 (Anesthesia Volume Adjustment - Provider: Fabiola Kilgore CRNA) Continuous Medication Order 01/09/2022 01/10/2022 01/11/2022 lactated ringers (LR) infusion at 25 mL/hr, intravenous, CONTINUOUS, Starting on Tue01/11/22 at 0645, Until Tue01/11/22 at 1703, Routine, Preprocedure 0711 (New Bag - Prov ider: Leticia Hernandez RN)0733 (Continued by Anesthesia - Provider: Fabiola Kilgore CRNA)0755 (Paused - Provider: Fabiola Kilgore CRNA - Comment: Switch to gravity)0756 (New Bag - Provider: Fabiola Kilgore CRNA)0925 (New Bag - Provider: Fabiola Kilgore CRNA)1311 (Anesthesia Volume Adjustment - Provider: Fabiola Kilgore CRNA) lactated ringers (LR) infusion at 75 mL/hr, intravenous, PACU CONTINUOUS, Starting on Tue01/11/22 at 1330, Until Tue01/11/22 at 1703, Routine, Recovery (only) 1330 (Canceled Entry - Provider: Batch Job User Admin - Comment: Automatically canceled at discontinue of medication order) PRN Medication Order 01/09/2022 01/10/2022 01/11/2022 atropine 0.1 mg/mL syringe 0.5 mg 0.5 mg, intravenous, PRN, Starting on Tue01/11/22 at 1303, Until Tue01/11/22 at 1703, Symptomatic HR < 50, Routine, Recovery (only) bupivacaine-EPINEPHrine (PF) 0.5 %-1:200,000 injection (CANCELED) PRN, Starting on Tue01/11/22 at 1202, Until Tue01/11/22 at 1312, Routine, Intraprocedure 1145 (Given - Provid er: Juanito Carcamo MD FACS - Comment: left breast pocket)1202 (Given - Provider: Juanito Carcamo MD FACS - Comment: right breast pocket) diphenhydrAMINE (BENADRYL) injection 12.5 mg 12.5 mg, intravenous, PRN, 1 dose, Starting on Tue01/11/22 at 1303, Until Tue01/11/22 at 1703, nausea, Routine, Recovery (only) fentaNYL citrate (PF) injection 25-50 mcg 25-50 mcg, intravenous, EVERY 5 MIN PRN, Starting on Tue01/11/22 at 1303, Until Tue01/11/22 at 1703, Pain, Routine, Recovery (only) HYDROmorphone (PF) (DILAUDID) 0.5 mg/0.5 mL syringe 0.3-0.5 mg 0.3-0.5 mg, intravenous, EVERY 10 MINUTES PRN, Starting on Tue01/11/22 at 1303, Until Tue01/11/22 at 1703, Pain, Routine, Recovery (only) naloxone (NARCAN) injection 0.2 mg 0.2 mg, intravenous, PRN, Starting on Tue01/11/22 at 1303, Until Tue01/11/22 at 1703, Opioid Reversal, Routine, Recovery (only) ondansetron (PF) (ZOFRAN) injection 4 mg 4 mg, intravenous, PRN, 1 dose, Starting on Tue01/11/22 at 1303, Until Tue01/11/22 at 1703, Nausea, Vomiting, Routine, Recovery (only) povidone-iodine (BETADINE) 10 % external solution (CANCELED) PRN, Starting on Tue01/11/22 at 0842, Until Tue01/11/22 at 1312, Intraprocedure 0842 (Given - Provid er: Juanito Carcamo MD FACS) sodium chloride (NS) 0.9 % 1,000 mL with lidocaine 20 mg/mL (2 %) 20 mL, EPINEPHrine (ADRENALIN) 1 mL (CANCELED) PRN, Starting on Tue01/11/22 at 0842, Until Tue01/11/22 at 1312, Routine, Intraprocedure 0842 (Given - Provid er: Juanito Carcamo MD FACS - Comment: subcutaneous in abdomen) sodium chloride 0.9 % 1,000 mL with ceFAZolin (ANCEF) 1,000 mg, gentamicin (GARAMYCIN) 100 mg (CANCELED) PRN, Starting on Tue01/11/22 at 0842, Until Tue01/11/22 at 1312, Routine, Intraprocedure 0842 (Given - Provid er: Juanito Carcamo MD FACS) sodium chloride 0.9 % 1,000 mL with povidone-iodine (BETADINE) 10 % 60 mL, ceFAZolin (ANCEF) 1,000 mg, gentamicin (GARAMYCIN) 100 mg (CANCELED) PRN, Starting on 01/11/22 at 0842, Until Tue01/11/22 at 1312, Routine, Intraprocedure 0842 (Given - Provid er: Juanito Carcamo MD FACS) documented in this encounter Orders Medications Ordered That Juanito ht Not Have Been Administered Count Last Ordered Date First Ordered Date atropine 0.1 mg/mL syringe 0.5 mg 1 022 ceFAZolin (ANCEF) syringe 2 g 1 01/11/2022 dextrose 50 % solution 12.5 g 1 01/11/2022 diphenhydrAMINE (BENADRYL) i njection 12.5 mg 1 01/11/2022 fentaNYL citrate (PF) injection 25-50 mcg 1 01/11/2022 glucagon injection 1 mg 1 01/11/2022 HYDROmorphone (PF) (DILAUDID ) 0.5 mg/0.5 mL syringe 0.3-0.5 mg 1 01/11/2022 lactated ringers (LR) infusion 1 01/11/2022 lidocaine (PF) 10 mg/mL (1 % ) injection 2 mg 1 01/11/2022 naloxone (NARCAN) injection 0.2 mg 1 2021 ondansetron (PF) (ZOFRAN) injection 4 mg 1 01/11/2022 Diet Count Last Ordered Date First Orde red Date DISCHARGE DIET 1 01/11/2022 Nursing Count Last Ordered Date First Orde red Date ACTIVITY INSTRUCTIONS 1 01/11/2022 INSERT JEFFREY CATHETER 1 01/11/2022 WOUND CARE INSTRUCTIONS 2 01/11/2022 Discharge Count Last Ordered Date First Orde red Date DISCHARGE PATIENT 1 01/11/2022 Legal Count Last Ordered Date First Orde red Date MISCELLANEOUS DISCHARGE INSTRUCTIONS 12/15 documented in this encounter Care Teams Construction Project Mgr Relationship Specialty Start Date End Date Batsheva Lira FNP [address] [phone] PCP - General 02/19/20 07/21/22 documented as of this encounter
--- OUTSIDE RECORDS SUMMARY | 2023-12-10 17:39 | XMS_ITS | Encounter Summary ---
Author Organization [facility] Address [address] [place] [address] Care Team Providers Care News Anchor Name Role Phone Batsheva Lira JOHN Primary Care Provider [phone] Encounter Details Date Type Department Care Team (Late st Contact Info) Description 08/28/2021 Documentation Visit [facility] Center Hematology & Oncology - [facility] [address] [place] [address] Edinson Lorenzana LICSW Social History Tobacco Use Types Packs/Day Years [...] as of this encounter Progress Notes * Edinson Lorenzana LICSW - 08/28/2021 1006 EDT SW F/U Visit Presenting Issue Austin and I spoke today as she was waiting for labs. She explained that her SSDI was denied a second time. Pt shared that her support network is suggesting she appeal the denial. Pt shared that she's finished w/ chemo and radiation but she still has reconstructive surgery and bladder surgery. She's expecting to be unable to work another 6 months at least. I explained that the only draw back is if she's approved, taking SSDI now would impact her fdc benefits later in life. Pt was understanding and would like to pursue an appeal. It's unclear when she was denied again and if she's in the 60 day window to appeal the denial. Therefore, we planned to talk on Mon. Hopefully the pt will be able to locate the denial notice. If not, we will need to call [employer] for the information. Person Centered Goals Support w/ SSDI denial Plan I will call the pt on Mon as discussed. Edinson COON documented in this encounter Plan of Treatment Upcoming Encounters Date Type Department Care Team (Late st Contact Info) Description 01/31/2024 13:40 EDT Office Visit [facility] Surgical Oncology - [address] [phone] Maeve Morales, DO [address] [facility], [facility], [address] [place] [address] documented as of this encounter Visit Diagnoses Not on filedocumented in this encounter Care Teams News Anchor Relationship Specialty Start Date End Date Batsheva Lira FNP [address] [phone] PCP - General 02/19/20 07/21/22 documented as of this encounter
--- OUTSIDE RECORDS SUMMARY | 2023-12-10 17:39 | XMS_ITS | Encounter Summary ---
Author Organization [facility] Address [address] [place] [address] Care Team Providers Care Retail Operations Specialist Name Role Phone Batsheva Lira JOHN Primary Care Provider [phone] Encounter Details Date Type Department Care Team (Late st Contact Info) Description 07/22/2021 13:15 EST Phlebotomy Only [facility] 2 Phlebotomy [address] [place] [address] Dental Scheduler, Acc Phlebotomy Malignant neoplasm of right breast in female, estrogen receptor negative, unspecified site of breast (HCC-CMS) (HCC) ([facility]-CMS) Social History Tobacco Use Types Packs/Day Years [...] 13:40 EDT Office Visit [facility] Surgical Oncology - [address] [address] Maeve Morales, DO [address] [place] [address], [address] [place] [address] documented as of this encounter Procedures Procedure Name Priority Date/Time Associated Diagnosis Comments COMPLETE BLOOD COUNT AND DIFFERENTIAL STAT 07/22/2021 13:09 EST Malignant neoplasm of right breast in female, estrogen receptor negative, unspecified site of breast (HCC-CMS) (HCC) (HCC-CMS) COMPREHENSIVE METABOLIC PANEL (CMP) STAT 07/22/2021 13:09 EST Malignant neoplasm of right breast in female, estrogen receptor negative, unspecified site of breast (HCC-CMS) (HCC) (HCC-CMS) documented in this encounter Results * (ABNORMAL) COMPREHENSIVE METABOLIC PANEL (CMP) (07/22/2021 13:09 EST) Sodium 134(L) 136 - 145 mmol/L 07/22/2021 13:28 EST [facility] Potassium 3.8 3.5 - 5.0 mmol/L 07/22/2021 13:28 [facility] Chloride 97 96 - 110 mmol/L 07/22/2021 13:28 [facility] CO2 Total 25 22 - 32 mmol/L 07/22/2021 13:28 [facility] Glucose 163(H) 70 - 100 mg/dL 07/22/2021 13:28 [facility] BUN 9(L) 10 - 26 mg/dL 07/22/2021 13:28 [facility] Creatinine 0.44(L) 0.52 - 1.04 mg/dL 07/22/2021 13:28 [facility] eGFR 122 >60 mL/min/1.7 3m2 07/22/2021 13:28 [facility] Total Protein 7.6 6.3 - 8.2 g/dL 07/22/2021 13:28 [facility] Albumin 4.7 3.4 - 4.9 g/dL 07/22/2021 13:28 [facility] Alkaline Phosphatase 325(H) 38 - 126 U/L 07/22/2021 13:28 [facility] AST 55(H) 15 - 46 U/L 07/22/2021 13:28 [facility] ALT 60(H) <35 U/L 07/22/2021 13:28 [facility] Bilirubin, Total 1.2 <1.4 mg/dL 07/23/19 13:28 [facility] Calcium 9.0 8.5 - 10.5 mg/dL 07/22/2021 13:28 [facility] Albumin/Globulin Ratio 1.6 1.0 - 2.5 07/22/2021 13:28 [facility] Anion Gap 12 5 - 14 07/22/2021 13:28 [facility] Blood VENOUS BLOOD / Unknown Venipuncture / Unknown 07/22/2021 13:09 EST 07/22/2021 13:11 EST Queenie Conde MD CHEMISTRY & BLOOD GA S ORDERABLES [facility] [address] [place] [address] * (ABNORMAL) COMPLETE BLOOD COUNT AND DIFFERENTIAL (07/22/2021 13:09 [facility]) WBC 6.62 4.00 - 12.40 K/cmm 07/22/2021 13:17 [facility] RBC 4.20 3.86 - 5.04 M/cmm 07/22/2021 13:17 [facility] Hemoglobin 15.4(H) 11.6 - 15.2 gm/dL 07/22/2021 13:17 [facility] HCT 42.0 34.9 - 44.4 % 07/22/2021 13:17 [facility] MCV 100(H) 81 - 98 fl 07/22/2021 13:17 [facility] MCH 36.7(H) 26.7 - 33.3 pg 07/22/2021 13:17 [facility] MCHC 36.7(H) 32.1 - 35.9 gm/dL 07/22/2021 13:17 [facility] RDW-CV 14.1 <14.7 % 07/22/2021 13:17 [facility] RDW-SD 51.6(H) <50.4 fl 07/22/2021 13:17 [facility] PLT 181 141 - 377 K/cmm 07/22/2021 13:17 [facility] MPV 9.5 9.5 - 12.7 fl 07/22/2021 13:17 [facility] % Neutrophils 68.3 % 07/22/2021 13:17 [facility] % Lymphocytes 17.8 % 07/22/2021 13:17 [facility] % Monocytes 11.5 % 07/22/2021 13:17 [facility] % Eosinophils 1.1 % 07/22/2021 13:17 [facility] % Basophils 1.1 % 07/22/2021 13:17 [facility] % Immature Grans 0.2 % 07/23/19 13:17 [facility] Absolute Neutrophils 4.53 2.20 - 8.85 K/cmm 07/22/2021 13:17 [facility] Absolute Lymphocytes 1.18 1.09 - 3.30 K/cmm 07/22/2021 13:17 [facility] Absolute Monocytes 0.76 0.10 - 0.80 K/cmm 07/22/2021 13:17 [facility] Absolute Eosinophils 0.07 0.03 - 0.61 K/cmm 07/22/2021 13:17 [facility] ABS Basophils 0.07 0.01 - 0.11 K/cmm 07/22/2021 13:17 [facility] Absolute Immature Grans 0.01 0.00 - 0.06 K/cmm 07/22/2021 13:17 [facility] Type of Differential: Auto 07/22/2021 13:17 [facility] Blood VENOUS BLOOD / Unknown Venipuncture / Unknown 07/22/2021 13:09 [facility] 07/22/2021 13:11 EST Queenie Conde MD PACKAGES & DNA PROBE ORDERABLES Performing Organization Address City/State/[facility] Co de Phone Number [facility] [address] [place] [address] documented in this encounter Visit Diagnoses Diagnosis Malignant neoplasm of right breast in female, estrogen receptor negative, unspecified site of breast (HCC-CMS) documented in this encounter Care Teams Retail Operations Specialist Relationship Specialty Start Date End Date Batsheva Lira FNP [address] [address] PCP - General 02/19/20 07/21/22 documented as of this encounter
--- OUTSIDE RECORDS SUMMARY | 2023-12-10 17:39 | XMS_ITS | Encounter Summary ---
Author Organization [facility] Address [address] [place] [address] Care Team Providers Care Environmental Services Attendant Name Role Phone Batsheva Lira JOHN Primary Care Provider [phone] Reason for Visit * Reason Onset Date Comments Follow-up 10/23/2021 Encounter Details Date Type Department Care Team (Late st Contact Info) Description 10/23/2021 Telephone [facility] Cancer Center Hematology & Oncology - [address] [phone] Edinson Lorenzana, DIRECTOR VISUAL Follow-up Social History Tobacco Use Types Packs/Day [...] Telephone Encounter - Edinson Lorenzana LICSW - 10/23/2021 0938 EDT JUDIT VICK Note: Reason for Call: Pt sent me a message explaining, was wondering if any of the grants will apply to me now? I replied to her explaining, Lyn Avila, I hope you are well. So you had applied for the [employer], [employer] and the Cancer patient support foundation back in July. You need to wait a year to reapply and will need to be in activetreatment. You can reapply for the [employer] as you last received funding September of last year. I need to clarify where you???re at with treatment though. I see you have the reconstruction surgery coming up. I???m not 100% sure they will consider that as active treatment. But Dr. Germain???s note mentions you taking Xeloda. I can???t tell from her note if you???re still taking it. Are you still on it? If not, I will reach out to the foundation to ask about the reconstruction being considered as active treatment from the foundation???s perspective. Also, have you looked into VERAP at all? [facility] Emergency Rental Assistance Program (vsha.org) Edinson Pt Centered Identified Goal: Financial assistance Plan: Waiting to hear back from the pt. Edinson Lorenzana [facility] ADDENDUM 1:45 Pt responded to my message and asked me to check on the year in which the grants I had mentioned were used. She thought it was back in 2020. Pt is correct, [employer], [employer] and the [employer] grants were used back in 2020. I asked the pt again to clarify if she's still taking Xeloda as this will be helpful in determining her option to reapply for assistance. If not, I will need to reach out to thefoundations to ask if they will consider reconstruction as active tx. ADDENDUM 3:15 Pt replied and explained that she's all done taking Xeloda. I explained I would reach out to the various foundation to see if they will consider reconstruction surgery as active tx. I sent messages to the [employer], [employer], [employer] and the [facility] asking about eligibility. documented in this encounter Plan of Treatment Upcoming Encounters Date Type Department Care Team (Late st Contact Info) Description 01/31/2024 13:40 EDT Office Visit [facility] Surgical Oncology - [address] [phone] Maeve Morales, [address] [facility], [address] [place] [phone] documented as of this encounter Visit Diagnoses Not on filedocumented in this encounter Care Teams Environmental Services Attendant Relationship Specialty Start Date End Date Batsheva Lira FNP [address] [address] PCP - General 02/19/20 07/21/22 documented as of this encounter
--- OUTSIDE RECORDS SUMMARY | 2023-12-10 17:39 | XMS_ITS | Encounter Summary ---
Author Organization [facility] Address [address] [place] [address] Care Team Providers Care Signals Collection Technician Name Role Phone Batsheva Lira JOHN Primary Care Provider [phone] Reason for Visit * Reason Onset Date Comments Follow-up 10/26/2021 Encounter Details Date Type Department Care Team (Late st Contact Info) Description 10/26/2021 Telephone [facility] Cancer Center Hematology & Oncology - [address] [phone] Edinson Lorenzana, MEDICAL SERVICE TECHNICIAN Follow-up Social History Tobacco Use Types [...] Telephone Encounter - Edinson Lorenzana LICSW - 10/26/2021 0836 EDT JUDIT VICK Note: Reason for Call: Heather from the [facility] replied to our question regarding if Austin would be eligible to reapply given the fact she's having reconstruction surgery. Heather explained this would make her eligible. I sent Austin a message with this update and explained the process to reapply. I'm waiting for her to send me bills she wants paid on her behalf or that she wants to be reimbursed for. Pt Centered Identified Goal: Financial assistance Plan: Waiting to hear back from Austin. Edinson COON documented in this encounter Plan of Treatment Upcoming Encounters Date Type Department Care Team (Late st Contact Info) Description 01/31/2024 13:40 EDT Office Visit [facility] Surgical Oncology - [address] [phone] Maeve Morales, [address] [facility], [facility], [address] [place] [address] documented as of this encounter Visit Diagnoses Not on filedocumented in this encounter Care Teams Signals Collection Technician Relationship Specialty Start Date End Date Batsheva Lira FNP [address] [address] PCP - General 02/19/20 07/21/22 documented as of this encounter
--- OUTSIDE RECORDS SUMMARY | 2023-12-10 17:39 | XMS_ITS | Encounter Summary ---
Author Organization [facility] Address [address] [place] [address] Care Team Providers Care Tank Farm Gauger Name Role Phone Batsheva Lira JOHN Primary Care Provider [phone] Reason for Visit * Reason Onset Date Comments Follow-up 10/30/2021 Encounter Details Date Type Department Care Team (Late st Contact Info) Description 10/30/2021 Telephone [facility] Cancer Center Hematology & Oncology - [address] [phone] Edinson Lorenzana, DINKEY ENGINE FIRER Follow-up Social History Tobacco Use Types Packs/Day [...] Telephone Encounter - Edinson Lorenzana LICSW - 10/30/2021 0913 EDT JUDIT VICK Note: Reason for Call: Austin sent me her car payment and asked that the [employer] reimburse her. I submitted the monserrat as requested and updated the pt. Michelle Monteiro reported to us that she was approved for both grants requested. I sent her a message to make sure she saw the notification. I explained again we're still waiting for the [facility] to reply. Pt Centered Identified Goal: Financial assistance Plan: Continue to support the pt w/ [employer] financial[employer] consultant grants. Edinson COON documented in this encounter Plan of Treatment Upcoming Encounters Date Type Department Care Team (Late st Contact Info) Description 01/31/2024 13:40 EDT Office Visit [facility] Surgical Oncology - [address] [phone] Maeve Morales, [address] [facility], [facility], [address] [place] [phone] documented as of this encounter Visit Diagnoses Not on filedocumented in this encounter Care Teams Tank Farm Gauger Relationship Specialty Start Date End Date Batsheva Lira FNP [address] [phone] PCP - General 02/19/20 07/21/22 documented as of this encounter
--- OUTSIDE RECORDS SUMMARY | 2023-12-10 17:39 | XMS_ITS | Encounter Summary ---
Author Organization [facility] Address [address] [place] [address] Care Team Providers Care Cofounder Name Role Phone Batsheva Lira JOHN Primary Care Provider [phone] Reason for Visit * Reason Comments Follow-up Encounter Details Date Type Department Care Team (Late st Contact Info) Description 08/11/2021 10:00 EDT Office Visit [facility] Surgical Oncology - [address] [id number] Maeve Morales, DO 111 [facility], Level 2 [place] [phone] Malignant 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, estrogen receptor negative (HCC-CMS) (HCC) (HCC-CMS) (Primary Dx) Social History [...] Sign Reading Time Taken Comments Blood Pressure 129/73 08/11/2021 0957 EDT Pulse 95 08/11/2021 0957 EDT Temperature 36.1 ??C (96.9 ??F) 08/11/2021 0957 EDT Respiratory Rate 12 08/11/2021 0957 EDT Oxygen Saturation - - Inhaled Oxygen Concentration [...] Progress Notes * Maeve Morales, DO - 08/11/2021 1000 EDT Subjective: Patient ID: Austin Squires is an 45 y.o. female. Chief Complaint Patient presents with ??? Follow-up HPI Austin is seen in 6-month follow-up for her left breast cancer. 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 This showed a concerning lesion in the upper pole of the left breast and biopsy returned back a nuclear grade 3 invasive ductal adenocarcinoma. This was a triple negative breast cancer. Because of the size and the triple negative phenotype Austin was initiated on neoadjuvant chemotherapy. She completed that chemotherapeutic regimen in November 2020 and went on to undergo bilateral skin sparing mastectomies and a left sentinel lymph node biopsy in December 2020. This was done with an immediatetissue butcher's assistant reconstruction. Unfortunately her pathology did not show a significant response to the chemotherapy with her final tumor size measuring 2.5 cm with 0 of 2 lymph nodes positive. Because of the less than optimal response she was placed on 6 months of capecitabine which she just recently completed. That medication made her feel fatigued and worn out and so she is quite happy to be done with it. Unfortunately in May of this year her right tissue butcher's assistant unexpectedly ruptured and she had to go back to the OR to have it replaced. She is in the process of having an butcher's assistant drained now. She notes no new masses or other worrisome findings. Patient Active Problem List Diagnosis ??? Malignant [...] Years since quittin.8 ??? Smokeless tobacco: Never Used ??? Tobacco [...] Take 2.5 mg by mouth daily. ??? capecitabine (XELODA) 500 mg tablet Take 4 Tablets by mouth 2 times daily. Take for 14 days, then stop for 7 days. (Patient not taking: Reported on 08/11/2021) 112 Tablet 5 ??? escitalopram oxalate (LEXAPRO) 10 mg tablet Take 20 mg by mouth daily. ??? gabapentin (NEURONTIN) 300 mg capsule TAKE 1 CAPSULE BY MOUTH AT BEDTIME. MAY INCREASE TO 2 CAPSULES IF TOLERATED (Patient not taking: Reported on 08/11/2021) 30 capsule 1 ??? INTRAUTERINE DEVICE, IUD, INTRAUTERINE by intrauterine [...] Comments) Made her hyper Review of Systems Constitutional: Positive for malaise/fatigue. Negative for chills, fever and weight loss. HENT: Negative for hearing loss. Eyes: Negative for blurred vision, double vision and photophobia. Respiratory: Negative for cough, shortness of breath and wheezing. Cardiovascular: Negative for chest pain and palpitations. Gastrointestinal: Negative for abdominal pain, heartburn, nausea and vomiting. Genitourinary: Negative for dysuria, frequency and urgency. Neurological: Negative for sensory change, focal weakness and headaches. - See HPI Objective: BP 129/73 Pulse 95 Temp 36.1 ??C (96.9 ??F) (Tympanic) Resp 12 Physical Exam Constitutional: General: She is not [...] palpated in either breast mound. Ultrasound of the left breast mound and left axilla is undertaken and shows no worrisome findings. There are no axillary masses. Assessment: Austin is a very pleasant 45-year-old female seen in 6-month follow-up for left breast cancer. On examination today she has no evidence of recurrent disease. She is at the end of all of her systemic intervention and is quite happy about that. She is in the process of reexpanding her right tissue butcher's assistant. She is trying to decide between a D IEP flap reconstruction and implant reconstruction. I advocated for the D IEP if she is a candidate for it secondary to her young age and the fact that she already was wanting to have a tummy tuck. I will see Austin back in 6 months for clinical exam, soonerif there are any issues. Plan: (C50.212, Z17.1) Malignant 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, estrogen receptor negative (HCC-CMS) (HCC) (primary encounter diagnosis) Maeve Morales DO No orders of the defined types were placed in this encounter. documented in this encounter Plan of Treatment Upcoming Encounters Date Type Department Care Team (Late st Contact Info) Description 01/31/2024 13:40 EDT Office Visit [facility] Surgical Oncology - [address] [address] Maeve Morales DO 111 [facility], [address] 2 [place] [phone] documented as of this encounter Procedures Procedure Name Priority Date/Time Associated Diagnosis Comments ORDERS - SCANNED 08/12/2021 10:51 EDT documented in this encounter Results * ORDERS - SCANNED (08/12/2021 10:51 EDT) 08/12/2021 10:5 1 EDT Scan 2 Warehouse Laborer ADMISSION ORDERABLE S documented in this encounter Visit Diagnoses Diagnosis Malignant 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, estrogen receptor negative ([facility])- Primary documented in this encounter Care Teams Cofounder Relationship Specialty Start Date End Date Batsheva Lira FNP [address] [phone] PCP - General 02/19/20 07/21/22 documented as of this encounter
--- OUTSIDE RECORDS SUMMARY | 2023-12-10 17:39 | XMS_ITS | Encounter Summary ---
Author Organization [facility] Address [address] [place] [address] Care Team Providers Care Fishing Tool Operator Name Role Phone Batsheva Lira JOHN Primary Care Provider [phone] Encounter Details Date Type Department Care Team (Late st Contact Info) Description 07/17/2021 Specialty Pharmacy [facility] - [facility] [address] [place] [address] Petros Vega, [facility] Social History Tobacco Use Types Packs/Day Years [...] Info) Description 01/31/2024 13:40 EDT Office Visit [facility] Surgical Oncology - [address] [address] Maeve Morales, DO 111 [facility], [facility], Level [address] [place] [phone] documented as of this encounter Visit Diagnoses Not on filedocumented in this encounter Care Teams Fishing Tool Operator Relationship Specialty Start Date End Date Batsheva Lira FNP [address] [phone] PCP - General 02/19/20 07/21/22 documented as of this encounter
--- OUTSIDE RECORDS SUMMARY | 2023-12-10 17:39 | XMS_ITS | Encounter Summary ---
Author Organization [facility] Address [address] [place] [address] Care Team Providers Care Pantry Worker Name Role Phone Batsheva Lira JOHN Primary Care Provider [phone] Encounter Details Date Type Department Care Team (Late st Contact Info) Description 08/24/2021 Documentation Visit [address] [address] Riley Melara Social History Tobacco Use Types Packs/Day Years [...] as of this encounter Progress Notes * Riley Melara - 08/24/2021 6251 EDT Rehabilitation Therapies Steps to Wellness: Oncology Rehabilitation Program Program Start date: 08/25/21 Date of Diagnosis: Jun 2020 Type of Cancer: L Breast Stage: 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 no History of Chemotherapy? Yes - neoadjuvant chemotherapy completed November 2020. Second bout for 6 months of capecitabine which was finished July 2021. History of Receiving Radiation? no Any Upcoming treatment Scheduled? no History of Cancer related Surgery? Bilateral mastectomies 12/24/20. Had tissue technical support manager surgery - unfortunately the right technical support manager ruptured And had it replaced Jun 2021. Precautions: From Medical Evaluation: Evaluation Provider: Dr. Prema Honeycutt Peripheral neuropathy From Physical Therapy Evaluation: Evaluation Provider: Oksana Pereyra Shoulder pain (1-1 PT w/ Deedee Pereyra) to increase ROM and strength of right upper extremity. Scheduledfor follow up in early August to assess status prior to starting STW. Does the patient have access to hand weights at home that are appropriate for use for STW exercises? Question not answered. ADDITIONAL NOTES: RILEY MELARA 08/24/2021 23:15 documented in this encounter Plan of Treatment Upcoming Encounters Date Type Department Care Team (Late st Contact Info) Description 01/31/2024 13:40 EDT Office Visit [facility] Surgical Oncology - [address] [address] Maeve Morales, DO 111 [facility] 2 [place] [address] documented as of this encounter Visit Diagnoses Not on filedocumented in this encounter Care Teams Pantry Worker Relationship Specialty Start Date End Date Batsheva Lira FNP [address] [phone] PCP - General 02/19/20 07/21/22 documented as of this encounter
--- OUTSIDE RECORDS SUMMARY | 2023-12-10 17:39 | XMS_ITS | Encounter Summary ---
Author Organization [facility] Address [address] [place] [address] Care Team Providers Care Data Review Specialist Name Role Phone Batsheva Lira QUICKBOOKS BOOKKEEPER Primary Care Provider [phone] Pam Germain MD Unavailable [phone] Janay Duran HAIRSPRING TRUING INSPECTOR Primary Care Provider Unava ilable Encounter Details Date Type Department Care Team (Late st Contact Info) Description 09/16/[address] [facility] Pathology & Laboratory Medicine - [facility] [address] [place] [address] Judd Dye, HAIRSPRING TRUING INSPECTOR Frequency of micturition Social History Tobacco Use Types Packs/Day Years [...] Description 01/31/2024 13:[address] [facility] Surgical Oncology - [address] [id number] Maeve Morales, DO 111 [facility], Level 2 [place] [phone] documented as of this encounter Procedures Procedure Name Priority Date/Time Associated Diagnosis Comments ORGANISM IDENTIFICATION AND SUSCEPTIBILITY Routine 09/16/2021 8:48 EDT Frequency of micturition documented in this encounter Results * (ABNORMAL) ORGANISM IDENTIFICATION AND SUSCEPTIBILITY (09/16/2021 8:48 EDT) [facility] Signature Organism ID Escherichia coli(A) VITEK SUSCEPTIBILITY 09/18/2021 8:50 EDT [facility] Comment: Cefazolin susceptibility results can [...] only cefpodoxime and cephalexin are on the [facility] inpatient formulary. Organism (organism) URINE / Unknown 09/16/2021 8:48 EDT 09/16/2021 15:45 EDT Narrative Organism Antibiotic Method Susceptibility Escherichia [...] thox azole VITEK SUSCEPTIBILITY <=20 ug/mL: Susceptible Judd Dye APRN MICROBIOLOGY - [facility] ORDERABLES [facility] [address] [place] [address] documented in this encounter Visit Diagnoses Diagnosis Frequency of micturition Urinary frequency documented in this encounter Care Teams Data Review Specialist Relationship Specialty Start Date End Date Batsheva Lira FNP [address] [phone] PCP - General 02/19/20 07/21/22 Janay Duran APRN [address] [phone] PCP - General Family Medicine - Primary Care 07/22/22 Pam Germain MD [address] [phone] Medical Oncology 03/22/22 documented as of this encounter
--- OUTSIDE RECORDS SUMMARY | 2023-12-10 17:39 | XMS_ITS | Encounter Summary ---
Author Organization [facility] Address [address] [place] [address] Care Team Providers Care Bobbin Winder Name Role Phone Batsheva Lira JOHN Primary Care Provider [phone] Reason for Visit * Reason Onset Date Comments Appointment Related 11/10/2021 Encounter Details Date Type Department Care Team (Late st Contact Info) Description 11/10/2021 Telephone [facility] Hematology & Oncology - [address] [address] Pam Germain MD [address] [place] [address], Level 2 [place] [address] Appointment Related Social History Tobacco [...] encounter Miscellaneous Notes * Telephone Encounter - Veronique Garrido - 11/10/2021 1510 EDT Updated patient on 6-month follow up with Dr Germain Patient confirmed understanding of date and time. documented in this encounter Plan of Treatment Upcoming Encounters Date Type Department Care Team (Late st Contact Info) Description 01/31/2024 13:40 EDT Office Visit [facility] Surgical Oncology - [address] [address] Maeve Morales, DO 111 [facility], Level [address] [place] [address] documented as of this encounter Visit Diagnoses Not on filedocumented in this encounter Care Teams Bobbin Winder Relationship Specialty Start Date End Date Batsheva Lira FNP [address] [phone] PCP - General 02/19/20 07/21/22 documented as of this encounter
--- OUTSIDE RECORDS SUMMARY | 2023-12-10 17:39 | XMS_ITS | Encounter Summary ---
Author Organization [facility] Address [address] [place] [address] Care Team Providers Care Solderer Torch Name Role Phone Batsheva Lira JOHN Primary Care Provider [phone] Reason for Visit * Reason Comments Post-OP Follow Up right TE Encounter Details Date Type Department Care Team (Latest Contact Info) Description 08/25/2021 8:30 EDT Post-op Visit [facility] Plastic, Reconstructive & Cosmetic Surgery - [address], [address] [place] [address] Oksana Wilkins PA-C [address] [place] [address] [place] [phone] Surgery follow-up (Primary Dx) Social History [...] Progress Notes * Oksana Wilkins PA-C - 08/25/2021 0830 EDT SUBJECTIVE: Austin Squires returns in follow up from right TE exchange with Dr. Carcamo on 06/18/21, last seen on 08/11/21 by SOCORRO Navas. The right side TE is solely being filled at this time. She is interested in follow up discussion regarding her CT scan. JANNETTE surgery is a consideration at this time. OBJECTIVE: On examination, she is in no [...] Return every 2 weeks for TE fills. Oksana Wilkins PA-C 08/25/2021 8:58 documented in this encounter Plan of Treatment Upcoming Encounters Date Type Department Care Team (Late st Contact Info) Description 01/31/2024 13:40 EDT Office Visit [facility] Surgical Oncology - [facility] [address] [place] [address] Maeve Morales, 111 [facility], Level [address] [place] [phone] documented as of this encounter Visit Diagnoses Diagnosis Surgery follow-up- Primary Follow-up examination, following unspecified surgery documented in this encounter Discontinued Medications Medication Sig Discontinue Reason Start Date End Da te capecitabine (XELODA) 500 mg tablet Take 4 Tablets by mouth 2 times daily. Take for 14 days, then stop for 7 days. Therapy completed 04/06/2021 08/25/2021 gabapentin (NEURONTIN) 300 mg capsuleIndications:Hot flashes TAKE 1 CAPSULE BY MOUTH AT BEDTIME. MAY INCREASE TO 2 CAPSULES IF TOLERATED Therapy completed 08/03/2021 08/25/2021 documented as of this encounter Care Teams Solderer Torch Relationship Specialty Start Date End Date Batsheva Lira FNP [address] [phone] PCP - General 02/19/20 07/21/22 documented as of this encounter
--- OUTSIDE RECORDS SUMMARY | 2023-12-10 17:39 | XMS_ITS | Encounter Summary ---
Author Organization [facility] Address [address] [place] [address] Care Team Providers Care Care Attendant Name Role Phone Batsheva Lira Primary Care Provider Pam Germain MD Unavailable [phone] Janay Duran APRN Primary Care Provider Unava ilable Encounter Details Date Type Department Care Team (Late st Contact Info) Description 08/25/2021 Lab Requisition [facility] Pathology & Laboratory Medicine - [facility] [address] [place] [address] Batsheva Lira FNP [address] [place] [phone] Dysuria Social History Tobacco Use Types Packs/Day [...] Info) Description 01/31/2024 13:40 EDT Office Visit [facility] Surgical Oncology - [address] [phone] Maeve Morales, [address], [address] 2 [place] [address] documented as of this encounter Procedures Procedure Name Priority Date/Time Associated Diagnosis Comments CHLAMYDIA/N. GONORRHOEAE AMPLIFIED NUCLEIC ACID Routine 08/25/2021 13:15 EDT Dysuria documented in this encounter Results * CHLAMYDIA/N. GONORRHOEAE AMPLIFIED RNA (08/25/2021 13:15 EDT) Neisseria gonorrhoeae Result Negative Negative 08/26/2021 15:19 EDT [facility] Chlamydia trachomatis Result Negative Negative 08/26/2021 15:19 EDT [facility] Swab ENTIRE VAGINA / Unknown 08/25/2021 13:15 EDT 08/25/2021 22:28 EDT Batsheva Soraya TRUSS MAKER MICROBIOLOGY - GENER AL ORDERABLES [facility] [address] [place] [address] documented in this encounter Visit Diagnoses Diagnosis Dysuria documented in this encounter Care Teams Care Attendant Relationship Specialty Start Date End Date Batsheva Lira FNP [address] [phone] PCP - General 02/19/20 07/21/22 Janay Duran APRN 111 [facility] 2 [place] [address] PCP - General Family Medicine - Primary Care 07/22/22 Pam Germain MD 111 [facility] 2 [place] [address] Medical Oncology 03/22/22 documented as of this encounter
--- OUTSIDE RECORDS SUMMARY | 2023-12-10 17:39 | XMS_ITS | Encounter Summary ---
Author Organization [facility] Address [address] [place] [address] Care Team Providers Care Can Inspector Name Role Phone Batsheva Lira JOHN Primary Care Provider [phone] Reason for Visit * Reason Onset Date Comments Appointment Related 08/19/2021 Encounter Details Date Type Department Care Team (Late st Contact Info) Description 08/19/[address] [phone] Vivian Melara Appointment Related Social History Tobacco Use Types [...] encounter Miscellaneous Notes * Telephone Encounter - Sera Langston - 08/19/2021 1014 EDT The patient confirmed participation in the remote Steps to Wellness program beginning on 08/25/21. documented in this encounter Plan of Treatment Upcoming Encounters Date Type Department Care Team (Late st Contact Info) Description 01/31/2024 13:40 EDT Office Visit [facility] Surgical Oncology - [address] [address] Maeve Morales, DO [address] [place] [address], [address] [place] [phone] documented as of this encounter Visit Diagnoses Not on filedocumented in this encounter Care Teams Can Inspector Relationship Specialty Start Date End Date Batsheva Lira FNP [address] [phone] PCP - General 02/19/20 07/21/22 documented as of this encounter
--- OUTSIDE RECORDS SUMMARY | 2023-12-10 17:39 | XMS_ITS | Encounter Summary ---
Author Organization [facility] Address [address] [place] [address] Care Team Providers Care Mortgage Originator Name Role Phone Batsheva Lira JOHN Primary Care Provider [phone] Reason for Visit * Reason Comments Post-OP Follow Up Post op: Everything is goign well, no conerns. Encounter Details Date Type Department Care Team (Latest Contact Info) Description 10/23/2021 9:00 EDT Post-op Visit [facility] Pelvic Medicine and Reconstructive Surgery - Medical Office [address] [phone] Mare Echeverria MD 2 [facility] Medical Office [facility], [address] [phone] Stress incontinence (Primary Dx); Cystocele, midline Social History [...] as of this encounter Progress Notes * Mare Echeverria MD - 10/23/2021 0900 EDT Subjective: Patient ID: Austin Squires is an 46 y.o. female. Chief Complaint Patient presents with ??? Post-OP Follow Up Post op: Everything is goign well, no conerns. HPI: Austin is a 46-year-old status post TVT and anterior colporrhaphy on 09/24/2021. She is doing well, has no specific concerns or issues. Denies voiding problems, incontinence, spotting or discharge. Energy level back to normal, following restrictions. Patient Active Problem List Diagnosis ??? Malignant [...] ??? Exercise involving walking july till february- [facility]- very active. ??? Head trauma 06/19/20 fell [...] tablet Take 2.5 mg by mouth daily. (Patient not taking: Reported on10/23/2021) ??? escitalopram oxalate (LEXAPRO) 10 mg tablet [...] Review of Systems - See HPI Objective: There were no vitals taken for this visit. Physical Exam: Abdomen: Suprapubic incisions nontender and well-healed Vagina: Nontender, no mesh exposure, nontender, negative HIGH TENSION TESTER Assessment/Plan: Doing well s/p TVT, [place]. Meeting post-op milestones, restrictions reviewed. RTC if any concerns. Mare Echeverria MD documented in this encounter Plan of Treatment Upcoming Encounters Date Type Department Care Team (Late st Contact Info) Description 01/31/2024 13:40 EDT Office Visit [facility] Surgical Oncology - [address] [phone] Maeve Morales, [address] [place] [address], Level 2 [place] [phone] documented as of this encounter Visit Diagnoses Diagnosis Stress incontinence- Primary Female stress incontinence Cystocele, midline documented in this encounter Care Teams Mortgage Originator Relationship Specialty Start Date End Date Batsheva Lira FNP [address] [phone] PCP - General 02/19/20 07/21/22 documented as of this encounter
--- OUTSIDE RECORDS SUMMARY | 2023-12-10 17:39 | XMS_ITS | Encounter Summary ---
Author Organization [facility] Address [address] [place] [address] Care Team Providers Care Pension Agent Name Role Phone Batsheva Lira JOHN Primary Care Provider [phone] Reason for Visit * Reason Comments Follow-up Encounter Details Date Type Department Care Team (Late st Contact Info) Description 08/07/2021 10:45 EDT Office Visit [email or web address] Hematology & Oncology - [address] [id number] Pam Germain MD [address] [place] [address], Level 2 [place] [address] Triple negative malignant neoplasm of [...] Sign Reading Time Taken Comments Blood Pressure 125/74 08/07/2021 1046 EDT Pulse 82 08/07/2021 1046 EDT Temperature 36 ??C (96.8 ??F) 08/07/2021 1046 EDT Respiratory Rate 16 08/07/2021 1046 EDT Oxygen Saturation 99% 08/07/2021 1046 EDT Inhaled Oxygen Concentration - - Weight 77.3 kg (170 lb 8 oz) 08/07/2021 1046 EDT Height - - Body Mass Index 28.37 06/18/2021 1211 EST documented in this encounter [...] Progress Notes * Pam Germain MD - 08/07/2021 1045 EDT Medical Oncology Note Date: 08/06/21 Name: Austin Squires Surgeon: Dr. Morales Rad onc: NA Stage: Cancer Staging 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, estrogen receptor negative (HCC-CMS) (HCC) Staging form: Breast, AJCC 8th Edition - Clinical: Stage IIB (cT2, cN0, cM0, G3, ER-, OH-, HER2-) - Signed by Maeve Morales DO on 07/15/2020 Assessment & Plan 45 y.o. with early stage triple negative breast cancer s/p neoadjuvant chemotherapy, b/l mastectomies and now on adjuvant capecitabine for residual tumor of 2.5 cm. She is currently on her 8th and final cycle of capecitabine. We discussed surveillance after the patient has completed capecitabine, namely alternating visits every 3 months with this department and surgical oncology, without routine imaging or lab work unlessnew symptoms prompt such evaluations. Plan 1. C8D15 of capecitabine 2000 mg twice daily, two weeks on, one week off, with 8 cycles total planned. No further cycles planned. 2. Follow-up with plastics (Dr. Carcamo) as scheduled 3. Follow-up with Dr. Morales scheduled August 11 Follow-up: in 3 months Oncology History 1. Early stage [facility] Breast Cancer ?? Banking Services Officer noticed a mass in her left breast in early June 2020 ?? Imaging and a biopsy on 07/09/20??of a 2.1 cm mass revealed a nuclear grade 3 ER negative OH negative for HER2 negative ductal carcinoma.? Staging evaluation did reveal a prominent L IM lymph node ?? Taxol/carboplatinum f/b AC, started July 22, 2020??& completed on 11/27/20 ?? Bilateral mastectomies??performed on 12/24/20 revealed 2.5 cm of a poorly differentiated ductal carcinoma. ??All margins were negative. ??0/3 nodes were positive.?Contralateral breast benign. PD-L1 testing appears to be negative. ?? adjuvant capecitabine started late Jan, Genetic testing: negative (9 gene panel performed through [employer] was performed) Subjective She has been recovering from a shoulder injury and a rib injury, but doing better. Right breast implant issues and following up with Dr. Carcamo. Some skin changes of her hands and heels, on which she continues to use moisturizers vigilantly. Nofissuring or significant pain. Persistent fatigue, hoping this improves when off capecitabine. Notes losing 25 pounds while on capecitabine. Attributes decreased appetite to this. Hoping to be more active with more energy. Past Medical & Surgical History: 1. Hepatic steatosis 2. HTN 3. Anxiety 4. Urinary incontinence 5. Cholecystectomy in 2018 Medications: Reviewed. Allergies: Reviewed. Social History: Lives in [place]. Has young daughter (age 9 or [...] his 90s. ??Her paternal relatives are of [place] descent. Objective Performance Status: ECOG PS 0 Physical Exam There were no vitals taken for this visit. General: Appears in no distress Skin: No rashes Pulm: No increased work of breathing on room air Lymph Node Exam: No palpable cervical lymphadenopathy. No supraclavicular lymphadenopathy. No palpable axillary lymphadenopathy. Chest Exam: S/p bilateral mastectomies with expanders in place. No masses or concerning findings. Right sand cutting machine operator smaller due to recent issues. I have personally reviewed the relevant studies as follows: Labs: 08/07/21 notable for mildly elevated LFTs which has been a chronic finding Imaging: NEIL Germain MD 08/06/2021 20:36 Hematology/Oncology Fellow PGY6 Attestation statement: I performed or was present during the mack or critical portions of the visit and participated in the management of the patient. I agree with the findings and plan of care documented in the resident's/fellow's note. documented in this encounter Plan of Treatment Upcoming Encounters Date Type Department Care Team (Late st Contact Info) Description 01/31/2024 13:40 EDT Office Visit [facility] Surgical [place] [address] Maeve Morales, DO [address] [facility], Level 2 [place] [address] documented as of this encounter Visit Diagnoses Diagnosis Triple negative malignant neoplasm of breast (HCC-CMS)- Primary documented in this encounter Historical Medications * This list may reflect changes made after this encounter. Medication Sig Dispensed Refills Start Date End Date metformin HCl (METFORMIN ORAL) Take by mouth. 10/14/2022 added in this encounter Care Teams Pension Agent Relationship Specialty Start Date End Date Batsheva Lira FNP [address] [phone] PCP - General 02/19/20 07/21/22 documented as of this encounter
--- OUTSIDE RECORDS SUMMARY | 2023-12-10 17:39 | XMS_ITS | Encounter Summary ---
Author Organization [facility] Address [address] [place] [address] Care Team Providers Care Pricing Director Name Role Phone Batsheva Lira JOHN Primary Care Provider [phone] Reason for Visit * Reason Onset Date Comments Follow-up 11/03/2021 Encounter Details Date Type Department Care Team (Late st Contact Info) Description 11/03/2021 Telephone [facility] Hematology & Oncology - [address] [phone] Edinson Lorenzana, MANAGER NIGHT Follow-up Social History Tobacco Use Types Packs/Day [...] Telephone Encounter - Edinson Lorenzana LICSW - 11/03/2021 1419 EDT JUDIT VICK Note: Reason for Call: [facility] sent me the following response. This was in regards to our question around eligibility, I just talked to Deedee about your other patient- if reconstruction surgery is the only treatment at that time it would not meet our active treatment guidelines. If she had other treatment within the last 60 days (meaning reconstruction surgery is scheduled right after she completed treatment) then she could apply. However if it has been longer and that is the only treatment at this point we would not be able to fund. I sent this to the pt and asked if she feels like she fits into the description. Pt Centered Identified Goal: Financial assistance Plan: Waiting to hear back from the pt. Edinson COON documented in this encounter Plan of Treatment Upcoming Encounters Date Type Department Care Team (Late st Contact Info) Description 01/31/2024 13:40 EDT Office Visit [facility] Surgical Oncology - [address] [phone] Maeve Morales, DO 111 [facility], Level 2 [place] [phone] documented as of this encounter Visit Diagnoses Not on filedocumented in this encounter Care Teams Pricing Director Relationship Specialty Start Date End Date Batsheva Lira FNP [address] [phone] PCP - General 02/19/20 07/21/22 documented as of this encounter
--- OUTSIDE RECORDS SUMMARY | 2023-12-10 17:39 | XMS_ITS | Encounter Summary ---
Author Organization [facility] Address [address] [place] [address] Care Team Providers Care Pet Ambassador Name Role Phone Batsheva Lira JOHN Primary Care Provider [phone] Reason for Visit * Reason Onset Date Comments COVID-19 09/17/2021 Encounter Details Date Type Department Care Team (Late st Contact Info) Description 09/17/2021 Orders Only [facility] Plastic, Reconstructive & Cosmetic Surgery - [address], [address] [place] [address] Juanito Carcamo MD [address] [place] [phone] Malignant neoplasm of upper-inner quadrant of [...] as of this encounter Progress Notes * Mike Gotti RN - 09/17/2021 0943 EDT Order for covid testing placed and signed prior to surgery on 01/11/ MIKE GOTTI RN 09/17/2021 9:51 documented in this encounter Plan of Treatment Upcoming Encounters Date Type Department Care Team (Late st Contact Info) Description 01/31/2024 13:40 EDT Office Visit [facility] Surgical Oncology - [address] [phone] Maeve Morales, DO 111 [facility], [facility], [address] 2 [place] [address] documented as of this encounter Visit Diagnoses Diagnosis 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, estrogen receptor negative, unspecified laterality (HCC-CMS)- Primary documented in this encounter Care Teams Pet Ambassador Relationship Specialty Start Date End Date Batsheva Lira FNP [address] [phone] PCP - General 02/19/20 07/21/22 documented as of this encounter
--- OUTSIDE RECORDS SUMMARY | 2023-12-10 17:39 | XMS_ITS | Encounter Summary ---
Author Organization [facility] Address [address] [place] [address] Care Team Providers Care Physician Locums Urgent Care Name Role Phone Batsheva Lira JOHN Primary Care Provider [phone] Encounter Details Date Type Department Care Team (Late st Contact Info) Description 08/07/2021 11:15 EDT Phlebotomy Only [facility] ED Center 2 Phlebotomy [address] [place] [address] Inspector Hairspring, Acc Phlebotomy Malignant neoplasm of right breast in female, estrogen receptor negative, unspecified site of breast (HCC-CMS) (HCC) ([facility]-CMS) Social History Tobacco Use Types Packs/Day Years [...] Description 01/31/2024 13:40 EDT Office Visit [facility] Surgical Oncology - [address] [address] Maeve Morales, [address], [address] [place] [phone] documented as of this encounter Procedures Procedure Name Priority Date/Time Associated Diagnosis Comments COMPLETE BLOOD COUNT AND DIFFERENTIAL STAT 08/07/2021 10:40 EDT Malignant neoplasm of right breast in female, estrogen receptor negative, unspecified site of breast (HCC-CMS) (HCC) (HCC-CMS) COMPREHENSIVE METABOLIC PANEL (CMP) STAT 08/07/2021 10:40 EDT Malignant neoplasm of right breast in female, estrogen receptor negative, unspecified site of breast (HCC-CMS) (HCC) (HCC-CMS) documented in this encounter Results * (ABNORMAL) COMPREHENSIVE METABOLIC PANEL (CMP) (08/07/2021 10:40 EDT) Sodium 138 136 - 145 mmol/L 08/07/2021 11:02 EDT [facility] Potassium 4.3 3.5 - 5.0 mmol/L 08/07/2021 11:02 [facility] Chloride 104 96 - 110 mmol/L 08/07/2021 11:02 [facility] CO2 Total 21(L) 22 - 32 mmol/L 08/07/2021 11:02 [facility] Glucose 167(H) 70 - 100 mg/dL 08/07/2021 11:02 [facility] BUN 11 10 - 26 mg/dL 08/07/2021 11:02 [facility] Creatinine 0.40(L) 0.52 - 1.04 mg/dL 08/07/2021 11:02 [facility] eGFR 126 >60 mL/min/1.7 3m2 08/07/2021 11:02 [facility] Total Protein 7.4 6.3 - 8.2 g/dL 08/07/2021 11:02 [facility] Albumin 4.4 3.4 - 4.9 g/dL 08/07/2021 11:02 [facility] Alkaline Phosphatase 252(H) 38 - 126 U/L 08/07/2021 11:02 [facility] AST 52(H) 15 - 46 U/L 08/07/2021 11:02 [facility] ALT 46(H) <35 U/L 08/07/2021 11:02 [facility] Bilirubin, Total 0.7 <1.4 mg/dL 08/08/19 11:02 [facility] Calcium 9.0 8.5 - 10.5 mg/dL 08/07/2021 11:02 [facility] Albumin/Globulin Ratio 1.5 1.0 - 2.5 08/07/2021 11:02 [facility] Anion Gap 13 5 - 14 08/07/2021 11:02 [facility] Blood VENOUS BLOOD / Unknown Venipuncture / Unknown 08/07/2021 10:40 EDT 08/07/2021 10:44 EDT Queenie Conde MD CHEMISTRY & BLOOD GA S ORDERABLES [facility] [address] [place] [address] * (ABNORMAL) COMPLETE BLOOD COUNT AND DIFFERENTIAL (08/07/2021 10:40 EDT) WBC 4.79 4.00 - 12.40 K/cmm 08/07/2021 10:56 [facility] RBC 3.93 3.86 - 5.04 M/cmm 08/07/2021 10:56 [facility] Hemoglobin 14.1 11.6 - 15.2 gm/dL 08/07/2021 10:56 [facility] HCT 40.3 34.9 - 44.4 % 08/07/2021 10:56 [facility] MCV 103(H) 81 - 98 fl 08/07/2021 10:56 [facility] MCH 35.9(H) 26.7 - 33.3 pg 08/07/2021 10:56 [facility] MCHC 35.0 32.1 - 35.9 gm/dL 08/07/2021 10:56 [facility] RDW-CV 13.8 <14.7 % 08/07/2021 10:56 [facility] RDW-SD 52.2(H) <50.4 fl 08/07/2021 10:56 [facility] PLT 171 141 - 377 K/cmm 08/07/2021 10:56 [facility] MPV 9.7 9.5 - 12.7 fl 08/07/2021 10:56 [facility] % Neutrophils 50.4 % 08/07/2021 10:56 [facility] % Lymphocytes 34.4 % 08/07/2021 10:56 [facility] % Monocytes 12.1 % 08/07/2021 10:56 [facility] % Eosinophils 2.1 % 08/07/2021 10:56 [facility] % Basophils 0.8 % 08/07/2021 10:56 EDT [facility] % Immature Grans 0.2 % 08/08/19 10:56 EDT [facility] Absolute Neutrophils 2.41 2.20 - 8.85 K/cmm 08/07/2021 10:56 T [facility] Absolute Lymphocytes 1.65 1.09 - 3.30 K/cmm 08/07/2021 10:56 EDT [facility] Absolute Monocytes 0.58 0.10 - 0.80 K/cmm 08/07/2021 10:56 EDT [facility] Absolute Eosinophils 0.10 0.03 - 0.61 K/cmm 08/07/2021 10:56 T [facility] ABS Basophils 0.04 0.01 - 0.11 K/cmm 08/07/2021 10:56 [facility] Absolute Immature Grans 0.01 0.00 - 0.06 K/cmm 08/07/2021 10:56 EDT [facility] Type of Differential: Auto 08/07/2021 10:56 T [facility] Blood VENOUS BLOOD / Unknown Venipuncture / Unknown 08/07/2021 10:40 EDT 08/07/2021 10:44 EDT Queenie Conde MD PACKAGES & DNA PROBE ORDERABLES Performing Organization Address City/State/[facility] Co de Phone Number [facility] [address] [place] [address] documented in this encounter Visit Diagnoses Diagnosis Malignant neoplasm of right breast in female, estrogen receptor negative, unspecified site of breast (HCC-CMS) documented in this encounter Care Teams Physician Locums Urgent Care Relationship Specialty Start Date End Date Batsheva Lira FNP [address] [phone] PCP - General 02/19/20 07/21/22 documented as of this encounter
--- OUTSIDE RECORDS SUMMARY | 2023-12-10 17:39 | XMS_ITS | Encounter Summary ---
Author Organization [facility] Address [address] [place] [address] Care Team Providers Care Elastic Yarn Twister Name Role Phone Batsheva Lira JOHN Primary Care Provider [phone] Reason for Visit * Reason Comments Post-OP Follow Up TE fill-sx-/ Encounter Details Date Type Department Care Team (Latest Contact Info) Description 09/22/2021 8:30 EDT Post-op Visit [facility] Plastic, Reconstructive & Cosmetic Surgery - [address], [address] [place] [address] Oksana Wilkins PA-C [address] [facility] [address] [place] [phone] Surgery follow-up (Primary Dx) Social History [...] Progress Notes * Oksana Wilkins PA-C - 09/22/2021 0830 EDT SUBJECTIVE: Austin Squires returns in follow up from right TE exchange with Dr. Carcamo on 06/18/21, last seen on 09/08/21. A bilateral/final TE fill is planned for today. No acute health complaints are reported. OBJECTIVE: On examination, she is in no distress. Her incisions are healing well, without sign of drainage or dehiscence. Breast skin is devoid of rash and erythema. IMPRESSION: Doing well PLAN: TE fill The TE ports were located with a magnet and marked. In sterile technique, 100 cc of injectable saline was entered into the left side; 50 cc into the right. The sites were then cleansed with an alcohol pad Band-Aids were secured. Pt was informed to leave the Band-Aids in place for 24 hours Pt is scheduled for surgery in December- present for pre op evaluation as scheduled. Oksana Wilkins PA-C 09/22/2021 8:31 documented in this encounter Plan of Treatment Upcoming Encounters Date Type Department Care Team (Late st Contact Info) Description 01/31/2024 13:40 EDT Office Visit [facility] Surgical Oncology - [facility] [address] [place] [address] Maeve Morales, [address], [address] [place] [phone] documented as of this encounter Visit Diagnoses Diagnosis Surgery follow-up- Primary Follow-up examination, following unspecified surgery documented in this encounter Care Teams Elastic Yarn Twister Relationship Specialty Start Date End Date Batsheva Lira FNP [address] [phone] PCP - General 02/19/20 07/21/22 documented as of this encounter
--- OUTSIDE RECORDS SUMMARY | 2023-12-10 17:39 | XMS_ITS | Encounter Summary ---
Author Organization [facility] Address [address] [place] [address] Care Team Providers Care Campaign Fundraiser Name Role Phone Batsheva Lira JOHN Primary Care Provider [phone] Reason for Visit * Reason Onset Date Comments Follow-up 08/31/2021 Encounter Details Date Type Department Care Team (Late st Contact Info) Description 08/31/2021 Telephone [facility] Hematology & Oncology - [address] [phone] Edinson Lorenzana, BRAKE LINING DRILLER Follow-up Social History Tobacco Use Types Packs/Day [...] Telephone Encounter - Edinson Lorenzana LICSW - 08/31/2021 0957 EDT JUDIT VICK Note: Reason for Call: I called Austin as planned and left a VM. I explained that we met last week and planned to call [employer] today to see if she is still within the 60 day window to request a reconsideration from the second denial she's received for her SSDI claim. Pt Centered Identified Goal: SSDI claim Plan: Waiting to hear back from the pt. Edinson COON documented in this encounter Plan of Treatment Upcoming Encounters Date Type Department Care Team (Late st Contact Info) Description 01/31/2024 13:40 EDT Office Visit [facility] Surgical Oncology - [address] [phone] Maeve Morales, [address] [facility], [address] 2 [place] [address] documented as of this encounter Visit Diagnoses Not on filedocumented in this encounter Care Teams Campaign Fundraiser Relationship Specialty Start Date End Date Batsheva Lira FNP [address] [phone] PCP - General 02/19/20 07/21/22 documented as of this encounter
--- OUTSIDE RECORDS SUMMARY | 2023-12-10 17:39 | XMS_ITS | Encounter Summary ---
Author Organization [facility] Address [address] [place] [address] Care Team Providers Care Java Core Developer Name Role Phone Batsheva Lira JOHN Primary Care Provider [phone] Reason for Visit * Reason Comments Pre-op Exam bilateral TE to gel Encounter Details Date Type Department Care Team (Latest Contact Info) Description 12/30/2021 13:00 EDT Office Visit [facility] Plastic, Reconstructive & Cosmetic Surgery - [address], [address] [place] [address] Juanito Carcamo MD [address] [phone] S/P breast reconstruction (Primary Dx) [...] - Inhaled Oxygen Concentration - - Weight 75.3 kg (166 lb) 12/30/2021 1254 EDT Height 167.5 cm (5' 5.95) 12/30/2021 1254 EDT Body Mass Index 26.83 12/30/2021 1254 EDT documented in this encounter Functional Status [...] as of this encounter Progress Notes * Katia Degroot RN - 12/30/2021 1300 EDT Examination chaperoned by KATIA WILCOX RN. * Juanito Carcamo MD FACS - 12/30/2021 1300 EDT Austin returns to discuss exchange of her bilateral tissue expanders to permanent silicone implants.We reviewed the risks and benefits of the surgical procedure. We discussed that implants are mechanical devices and do have a failure rate and therefore likely will require further surgery for replacement. We discussed capsular contracture (all grades), implant palpability/rippling, infection/tissue necrosis/implant exposure (which would likely require implant removal). We discussed the significantly increased risk of complications in arson investigator/implant reconstruction patient's who receive postoperative radiation or have received previous radiation therapy for any reason. I discussed with Austin that fat grafting would improve the contour of her breast and may reverse some of the radiation injury if present. We also discussed that only 60-70% of the fat will survive and that she will likely need at least another round of fat grafting. We discussed fat necrosis and possible palpable lumps. We discussed that fat grafting requires liposuction from a donor site, usually the abdomen or thighs. The donor site may have contour irregularity afterwards. Patient will need to wear 6 weeks of compression at the donor site. Signed informed consent was obtained. I spent 40 minutes with this patient; 35 minutes was spent in counseling and coordination of care as described in the progress note. documented in this encounter Plan of Treatment Upcoming Encounters Date Type Department Care Team (Late st Contact Info) Description 01/31/2024 13:40 EDT Office Visit [facility] Surgical Oncology - [address] [phone] Maeve Morales, 111 [facility], Level 2 [place] [phone] documented as of this encounter Visit Diagnoses Diagnosis S/P breast reconstruction- Primary Breast replaced by other means documented in this encounter Care Teams Java Core Developer Relationship Specialty Start Date End Date Batsheva Lira FNP [address] [phone] PCP - General 02/19/20 07/21/22 documented as of this encounter
--- OUTSIDE RECORDS SUMMARY | 2023-12-10 17:39 | XMS_ITS | Encounter Summary ---
Author Organization [facility] Address [address] [place] [address] Care Team Providers Care Corncob Pipe Manufacturing Supervisor Name Role Phone Batsheva Lira JOHN Primary Care Provider [phone] Reason for Referral * Radiology Services (Routine/Next Available) - Receiving Office to Obtain Authorization Specialty Diagnoses / Procedures Referred By Contac t Referred To Contact Diagnoses Malignant neoplasm of female breast, unspecified estrogen receptor status, unspecified laterality, unspecified site of breast ([facility]) Procedures CT ANGIO ABDOMEN PELVIS Juanito Carcamo MD FACS [address] [place] [phone] [facility] Referral ID Status Reason Start Date Expiration Date Visits Requested Visits Authorized [id number] Receiving Office to Obtain Authorization 03/20/2021 1 1 Reason for Visit * Radiology Services (Routine/Next Available) - Receiving Office to Obtain Authorization Specialty Diagnoses / Procedures Referred By Contac t Referred To Contact Diagnoses Malignant neoplasm of female breast, unspecified estrogen receptor status, unspecified laterality, unspecified site of breast ([facility]) Procedures CT ANGIO ABDOMEN PELVIS Juanito Carcamo MD FACS [address] [place] [address] [place] [phone] [facility] Referral ID Status Reason Start Date Expiration Date Visits Requested Visits Authorized [id number] Receiving Office to Obtain Authorization 03/20/2021 1 1 Encounter Details Date Type Department Care Team (Latest Contact Info) Description 08/18/2021 19:13 EDT - 08/18/2021 23:59 EDT Hospital Encounter [facility] Radiology CT - Main [address] [address] Malignant neoplasm of female breast, unspecified estrogen receptor status, unspecified laterality, unspecified site of breast ([facility]) ([facility]) ([facility]) Discharge Disposition: Home or Self Care Social [...] Sig Dispensed Refills Start Date End Date amLODIPine (NORVASC) 2.5 mg tablet Take 2.5 mg by mouth daily. 01/11/2022 capecitabine (XELODA) 500 mg tablet Take 4 Tablets by mouth 2 times daily. Take for 14 days, then stop for 7 days. 112 Tablet 5 04/06/2021 08/25/2021 cephalexin (KEFLEX) 500 mg capsule Take 1 capsule by mouth 4 times daily for 5 days. 20 capsule 01/11/2022 01/16/2022 escitalopram oxalate (LEXAPRO) 10 mg tablet Take 30 mg by mouth daily. 12/03/2022 gabapentin (NEURONTIN) 300 mg capsuleIndications:Ho t flashes TAKE 1 CAPSULE BY MOUTH AT BEDTIME. MAY INCREASE TO 2 CAPSULES IF TOLERATED 30 capsule 1 08/03/2021 08/25/2021 HYDROmorphone (DILAUDID) 2 mg tablet Take 1 Tablet by mouth every 4 hours as needed for Pain. Daily Max: 12 mg 20 Tablet 01/11/2022 01/19/2022 INTRAUTERINE DEVICE, IUD, INTRAUTERINE by intrauterine route. 01/11/2022 metformin HCl (METFORMIN ORAL) Take by mouth. traZODone (DESYREL) 50 mg tablet Take 50 mg by mouth as needed. 12/03/2022 documented as of this encounter Discharge Disposition Disposition Code Departure Means Destination Home or Self [place] documented in this encounter Plan of Treatment Upcoming Encounters Date Type Department Care Team (Late st Contact Info) Description 01/31/2024 13:40 EDT Office Visit [facility] Surgical Oncology - [address] [id number] Maeve Morales DO [address] [place] [address], [address] [place] [phone] documented as of this encounter Procedures Procedure Name Priority Date/Time Associated Diagnosis Comments CT ANGIO ABDOMEN PELVIS Routine 08/18/2021 19:42 EDT Malignant neoplasm of female breast, unspecified estrogen receptor status, unspecified laterality, unspecified site of breast (HCC-CMS) (HCC) (HCC-CMS) documented in this encounter Results * CT ANGIO ABDOMEN PELVIS (08/18/2021 19:42 EDT) Anatomical Region Laterality Modality Body, Abdomen, Pelvis, Abdomen and Pelvis Computed Tomography 08/21/2021 10:3 6 EDT Impressions 08/21/2021 10:36 EDT 1. Perforating arteries through the rectus abdominus arising from the inferior epigastric arteries outlined in detail above. 2. Hepatic steatosis. 3. Atherosclerosis. I have personally reviewed the images and the above interpretation and agree with the findings. Narrative 08/21/2021 10:36 EDT Examination: CT angiogram of the abdomen and pelvis. August 18, 2021. Clinical history: Breast cancer with planned reconstruction, JANNETTE protocol to assess for epigastric perforators. Technique: CT angiography of the abdomen and pelvis was performed with the administration of 120 cc intravenous contrast. Precontrast, arterial, and venous phase images were acquired. Coronal and sagittal multiplanar reformations, as well as 3-D reconstructions and MIPS, were also performed. I have personally reviewed and adjusted the images for the 3D rendering on an independent workstation, as necessary, prior to interpretation. Findings: Vasculature: Scattered calcifications of the abdominal aorta. There are 2 left sided perforating arteries which connect to the inferior epigastric artery, which courses through the left rectus abdominis at approximately the level of the umbilicus, the first of which is 2.3 cm left lateral to the umbilicus. The second entering vessel courses through the rectus abdominis approximately 3 cm superior to the umbilicus and approximately 4.1 cm left lateral. In the right rectus abdominis, there are 2 perforating vessels connecting to the right inferior epigastric artery, the first of which is approximately 3 cm right lateral to midline and 4 cm superior to the umbilicus. The second penetrating vessel is 5.5 cm right lateral and 1.2 cm superior to the umbilicus. There is a replaced right hepatic artery arising from the SMA. An accessory left hepatic artery arises from the left gastric. The major systemic venous and portal venous structures are otherwise unremarkable. Lower chest: Bilateral breast augmentation. The lung bases are unremarkable. Cardiac chambers are a normal size. Esophagus is normal in diameter. Hepatobiliary: There is diffuse hepatic steatosis. No intrahepatic or extrahepatic biliary ductal dilation. No suspicious hepatic lesion. Note is made of cholecystectomy clips in the right upper quadrant. Spleen, pancreas, adrenal glands: Accessory spleen present. No pancreatic ductal dilation. No pancreatic mass identified. The adrenal glands are within normal limits. Kidneys, ureters, bladder: Kidneys enhance symmetrically. Left-sided punctate nonobstructive nephrolithiasis. No suspicious renal lesion. The ureters are normal size and caliber. The urinary bladder is within normal limits. Uterus, ovaries: An IUD is present within the uterus. No adnexal mass. Bowel: No evidence of bowel obstruction. Note is made of redundant sigmoid colon. Normal appendix. Peritoneal cavity / Subperitoneal space: No free fluid. No free air. Lymphovascular: No enlarged or abnormal lymph nodes. Abdominal vasculature as above. Abdominal wall: No bowel containing hernia. Musculoskeletal: No suspicious osseous lesion. No evidence of acute fracture. Procedure Note Andrés Rodriguez MD - 08/21/2021 Examination: CT angiogram of the abdomen and pelvis. August 18, 2021. Clinical history: Breast cancer with planned reconstruction, JANNETTE protocolto assess for epigastric perforators. Technique: CT angiography of the abdomen and pelvis was performed with theadministration of 120 cc intravenous contrast. Precontrast, arterial, andvenous phase images were acquired. Coronal and sagittal multiplanarreformations, as well as 3-D reconstructions and MIPS, were alsoperformed. I have personally reviewed and adjusted the images for the 3Drendering on an independent workstation, as necessary, prior tointerpretation. Findings: Vasculature: Scattered calcifications of the abdominal aorta. There are 2 left sidedperforating arteries which connect to the inferior epigastric artery,which courses through the left rectus abdominis at approximately the levelof the umbilicus, the first of which is 2.3 cm left lateral to theumbilicus. The second entering vessel courses through the rectus abdominisapproximately 3 cm superior to the umbilicus and approximately 4.1 cm leftlateral. In the right rectus abdominis, there are 2 perforating vessels connectingto the right inferior epigastric artery, the first of which isapproximately 3 cm right lateral to midline and 4 cm superior to theumbilicus. The second penetrating vessel is 5.5 cm right lateral and 1.2cm superior to the umbilicus. There is a replaced right hepatic artery arising from the SMA. Anaccessory left hepatic artery arises from the left gastric. The major systemic venous and portal venous structures are otherwiseunremarkable. Lower chest: Bilateral breast augmentation. The lung bases areunremarkable. Cardiac chambers are a normal size. Esophagus is normal indiameter. Hepatobiliary: There is diffuse hepatic steatosis. No intrahepatic orextrahepatic biliary ductal dilation. No suspicious hepatic lesion. Noteis made of cholecystectomy clips in the right upper quadrant. Spleen, pancreas, adrenal glands: Accessory spleen present. No pancreaticductal dilation. No pancreatic mass identified. The adrenal glands arewithin normal limits. Kidneys, ureters, bladder: Kidneys enhance symmetrically. Left-sidedpunctate nonobstructive nephrolithiasis. No suspicious renal lesion. Theureters are normal size and caliber. The urinary bladder is within normallimits. Uterus, ovaries: An IUD is present within the uterus. No adnexal mass. Bowel: No evidence of bowel obstruction. Note is made of redundant sigmoidcolon. Normal appendix. Peritoneal cavity / Subperitoneal space: No free fluid. No free air. Lymphovascular: No enlarged or abnormal lymph nodes. Abdominal vasculatureas above. Abdominal wall: No bowel containing hernia. Musculoskeletal: No suspicious osseous lesion. No evidence of acutefracture. IMPRESSION 1. Perforating arteries through the rectus abdominus arising from theinferior epigastric arteries outlined in detail above. 2. Hepatic steatosis. 3. Atherosclerosis. I have personally reviewed the images and the above interpretation andagree with the findings. Juanito Carcamo MD [facility] CT ORDER CHAO documented in this encounter Visit Diagnoses Diagnosis Malignant neoplasm of female breast, unspecified estrogen receptor status, unspecified laterality, unspecified site of breast (HCC-CMS) documented in this encounter Administered Medications Inactive Administered Medications - up to 3 most recent administrations Medication Order MAR Action Action Date Dose Rate Site iohexoL (OMNIPAQUE 350) solution 150 mL 150 mL, intravenous, Once in imaging, 1 dose, Starting on Tue08/18/21 at 1930, Until Tue08/18/21 at 1942, Routine Given 08/18/2021 19:42 EDT 120 mL documented in this encounter Orders Medications Ordered That Juanito ht Not Have Been Administered Count Last Ordered Date First Ordered Date iohexoL (OMNIPAQUE 350) solution 150 mL 1 0 08/18/2021 documented in this encounter Care Teams [employer] Supervisor Relationship Specialty Start Date End Date Batsheva Lira FNP [address] [phone] PCP - General 02/19/20 07/21/22 documented as of this encounter
--- OUTSIDE RECORDS SUMMARY | 2023-12-10 17:39 | XMS_ITS | Encounter Summary ---
Author Organization [facility] Address [address] [place] [address] Care Team Providers Care Surveillance Manager Name Role Phone Batsheva Lira JOHN Primary Care Provider [phone] Reason for Visit * Reason Comments Other Encounter Details Date Type Department Care Team (Late st Contact Info) Description 08/02/2021 Refill [facility] Hematology & Oncology - [address] [address] Liat Honeycutt, PA-C [address] [place] [address], [facility] [address] [place] [phone] Other Social History Tobacco Use Types Packs/Day [...] Dispensed Refills Start Date End Da te gabapentin (NEURONTIN) 300 mg capsuleIndications:Hot flashes TAKE 1 CAPSULE BY MOUTH AT BEDTIME. MAY INCREASE TO 2 CAPSULES IF TOLERATED 30 capsule 1 08/03/2021 08/25/2021 documented in this encounter Plan of Treatment Upcoming Encounters Date Type Department Care Team (Late st Contact Info) Description 01/31/2024 13:[address] [facility] Surgical Oncology - [address] [phone] Maeve Morales, DO [address] [place] [address], [facility] [address] [place] [phone] documented as of this encounter Visit Diagnoses Diagnosis Hot flashes- Primary Symptomatic menopausal or female climacteric states documented in this encounter Discontinued Medications Medication Sig Discontinue Reason Start Date End Da te gabapentin (NEURONTIN) 300 mg capsule 1 cap po hs, may increase to 2 caps if tolerated. 06/23/2021 08/03/2021 documented as of this encounter Care Teams Surveillance Manager Relationship Specialty Start Date End Date Batsheva Lira FNP [address] [phone] PCP - General 02/19/20 07/21/22 documented as of this encounter
--- OUTSIDE RECORDS SUMMARY | 2023-12-10 17:39 | XMS_ITS | Encounter Summary ---
Author Organization [facility] Address [address] [place] [address] Care Team Providers Care Noodle Press Operator Name Role Phone Batsheva Lira JOHN Primary Care Provider Encounter Details Date Type Department Care Team (Late st Contact Info) Description 11/05/2021 13:00 EDT Phlebotomy Only [facility] ED Center 2 Phlebotomy [address] [place] [address] Trackwalker, Acc Phlebotomy Malignant neoplasm of right breast in female, estrogen receptor negative, unspecified site of breast (HCC-CMS) (HCC) ([facility]) Social History Tobacco Use Types Packs/Day Years [...] Office Visit [facility] Surgical Oncology - [address] [address] Maeve Morales, [address], [address] [place] [phone] documented as of this encounter Procedures Procedure Name Priority Date/Time Associated Diagnosis Comments COMPLETE BLOOD COUNT AND DIFFERENTIAL STAT 11/05/2021 13:03 EDT Malignant neoplasm of right breast in female, estrogen receptor negative, unspecified site of breast (HCC-CMS) (HCC) (HCC-CMS) COMPREHENSIVE METABOLIC PANEL (CMP) STAT 11/05/2021 13:03 EDT Malignant neoplasm of right breast in female, estrogen receptor negative, unspecified site of breast (HCC-CMS) (HCC) (HCC-CMS) documented in this encounter Results * (ABNORMAL) COMPREHENSIVE METABOLIC PANEL (CMP) (11/05/2021 13:03 EDT) Sodium 138 136 - 145 mmol/L 11/05/2021 13:28 EDT [facility] Potassium 4.2 3.5 - 5.0 mmol/L 11/05/2021 13:28 [facility] Chloride 102 96 - 110 mmol/L 11/05/2021 13:28 [facility] CO2 Total 27 22 - 32 mmol/L 11/05/2021 13:28 [facility] Glucose 126(H) 70 - 100 mg/dL 11/05/2021 13:28 [facility] BUN 10 10 - 26 mg/dL 11/05/2021 13:28 [facility] Creatinine 0.61 0.52 - 1.04 mg/dL 11/05/2021 13:28 [facility] eGFR 112 >60 mL/min/1.7 3m2 11/05/2021 13:28 [facility] Total Protein 7.5 6.3 - 8.2 g/dL 11/05/2021 13:28 [facility] Albumin 4.7 3.4 - 4.9 g/dL 11/05/2021 13:28 [facility] Alkaline Phosphatase 117 38 - 126 U/L 11/05/2021 13:28 [facility] AST 44 15 - 46 U/L 11/05/2021 13:28 [facility] ALT 73(H) <35 U/L 11/05/2021 13:28 [facility] Bilirubin, Total <0.5 <1.4 mg/dL 11/06/19 13:28 [facility] Calcium 9.1 8.5 - 10.5 mg/dL 11/05/2021 13:28 [facility] Albumin/Globulin Ratio 1.7 1.0 - 2.5 11/05/2021 13:28 [facility] Anion Gap 9 5 - 14 11/05/2021 13:28 [facility] Blood VENOUS BLOOD / Unknown Venipuncture / Unknown 11/05/2021 13:03 EDT 11/05/2021 13:09 EDT Queenie Conde MD CHEMISTRY & BLOOD GA S ORDERABLES Performing Organization Address City/State/[place] Co de Phone Number [facility] [address] [place] [address] * (ABNORMAL) COMPLETE BLOOD COUNT AND DIFFERENTIAL (11/05/2021 13:03 EDT) WBC 6.70 4.00 - 12.40 K/cmm 11/05/2021 13:30 [facility] RBC 4.86 3.86 - 5.04 M/cmm 11/05/2021 13:30 [facility] Hemoglobin 15.3(H) 11.6 - 15.2 gm/dL 11/05/2021 13:30 [facility] HCT 45.6(H) 34.9 - 44.4 % 11/05/2021 13:30 [facility] MCV 94 81 - 98 fl 11/05/2021 13:30 [facility] MCH 31.5 26.7 - 33.3 pg 11/05/2021 13:30 [facility] MCHC 33.6 32.1 - 35.9 gm/dL 11/05/2021 13:30 [facility] RDW-CV 11.6 <14.7 % 11/05/2021 13:30 [facility] RDW-SD 40.0 <50.4 fl 11/05/2021 13:30 [facility] PLT 258 141 - 377 K/cmm 11/05/2021 13:30 [facility] MPV 9.6 9.5 - 12.7 fl 11/05/2021 13:30 [facility] % Neutrophils 69.3 % 11/05/2021 13:30 [facility] % Lymphocytes 20.3 % 11/05/2021 13:30 [facility] % Monocytes 8.4 % 11/05/2021 13:30 [facility] % Eosinophils 0.9 % 11/05/2021 13:30 [facility] % Basophils 0.7 % 11/05/2021 13:30 [facility] % Immature Grans 0.4 % 11/06/19 13:30 EDT [facility] Absolute Neutrophils 4.64 2.20 - 8.85 K/cmm 11/05/2021 13:30 EDT [facility] Absolute Lymphocytes 1.36 1.09 - 3.30 K/cmm 11/05/2021 13:30 EDT [facility] Absolute Monocytes 0.56 0.10 - 0.80 K/cmm 11/05/2021 13:30 EDT [facility] Absolute Eosinophils 0.06 0.03 - 0.61 K/cmm 11/05/2021 13:30 EDT [facility] ABS Basophils 0.05 0.01 - 0.11 K/cmm 11/05/2021 13:30 EDT [facility] Absolute Immature Grans 0.03 0.00 - 0.06 K/cmm 11/05/2021 13:30 EDT [facility] Type of Differential: Auto 11/05/2021 13:30 T [facility] Blood VENOUS BLOOD / Unknown Venipuncture / Unknown 11/05/2021 13:03 EDT 11/05/2021 13:09 EDT Queenie Conde MD PACKAGES & DNA PROBE ORDERABLES Performing Organization Address City/State/[place] Co de Phone Number [facility] [address] [place] [address] documented in this encounter Visit Diagnoses Diagnosis Malignant neoplasm of right breast in female, estrogen receptor negative, unspecified site of breast (HCC-CMS) documented in this encounter Care Teams Noodle Press Operator Relationship Specialty Start Date End Date Batsheva Lira FNP [facility] [phone] PCP - General 02/19/20 07/21/22 documented as of this encounter
--- OUTSIDE RECORDS SUMMARY | 2023-12-10 17:39 | XMS_ITS | Encounter Summary ---
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, estrogen receptor negative, unspecified laterality ([facility]) Procedures NC REPLACEMENT TISSUE CUSTOMER ACCOUNT TECHNICIAN W/PERMANENT IMPLANT NC REVISION OF RECONSTRUCTED BREAST NC GRAFTING OF AUTOLOGOUS FAT BY LIPO 50 CC OR LESS Juanito Carcamo MD [address] [place] [phone] Referral ID Status Reason Start Date Expiration Date Visits Re quested Visits Authorized [id number] 08/22/2021 1 1 Encounter Details Date Type Department Care Team (Late st Contact Info) Description 01/11/2022 7:33 EDT Anesthesia Event [facility] [place] [address] [place] [address] Ric Allen MD PhD [address] [facility] [address] [place] [address] Anesthesia Record Procedure Summary Procedure Name Responsible Anesthesiologist Anesthesia Start Time Anesthesia Stop Time bilateral exchange of tissue expanders to silicone implants with fat grafting for breast reconstruction (fat from abdomen) (Bilateral: Breast) Ric Allen MD PhD 01/11/22 0733 01/11/22 1316 Events Date Time Event Comment 01/11/2022 0733 An Start The patient was re-evaluated immediately before moderate or deep sedation use, before anesthesia induction, or before the anesthesia procedure. 0733 An Start Data 0740 An Induction The patient was reevaluated immediately before moderate or deep sedation use and before anesthesia induction. 0746 An Intubation 0753 Anesthesia Ready 1303 An Extubation 1316 Handoff to RN I completed my handoff to the receiving nurse during which we: 1. Identified the patient 2. Identified the responsible provider 3. Reviewed the pertinent medical history 4. Discussed the surgical course 5. Reviewed intra-op anesthesia management and issues during anesthesia 6. Set expectations for post-procedure period 7. Allowed opportunity for questions and acknowledgement of understanding. 1316 An Stop 1318 an stop data Meds Name Total dexaMETHasone (DECADRON) injection 4 mg/ mL (for IV doses up to 10mg) 4 mg ePHEDrine pre-filled syringe 5 mg fentanyl citrate (PF) injection 100 mcg HYDROmorphone vial 2 mg/mL 1 mg ketAMINE 5 mL prefilled syringe 35 mg midazolam (versed) 1 mg/mL 2 mL vial 2 m g ondansetron (PF) (ZOFRAN) injection 4 mg lidocaine 2% (PF) injection glass vial 8 0 mg propOFol (DIPRIVAN) injection 200 mg propOFol injection 2,814,720 mcg rocuronium 10 mg/mL vial 120 mg sugammadex 100 mg/mL 2 mL vial 150 mg ceFAZolin (ANCEF) syringe 2 g 4 g dexmedetomidine injection - vial 36 mcg dexmedetomidine injection - vial 112.39 mcg acetaminophen 10 mg/ml 100 mL infusion 1 ,000 mg lactated ringers (LR) infusion 1,600 mL * Agents Name O2 N2O Air * Blood No blood administrations on file. Lines, Drains, and Airways Type Details Placement Removal IVAD Single Port 08/08/20; 1002; Bard ; Valved; Right Chest, Internal Jugular; IR/Fluoro Guided, Ultrasound Guided; 8; 1% Lido, Sub Q; 2% Chlorhexidine with IPA, 70% IPA; Power Inject; Right Atrium; [id number]; [id number] 08/08/20 1002 by Estrella Westbrook RN Wound 01/11/22; 1102; Inci vu; Right; Breast; s/p breast reconstruction, removal of tissue family day carer with placement of silicone implant and fat grafting; horizontal incision with multiple puncture sites; N; Full thickness 01/11/22 1102 by Naz Gonzales RN Wound 01/11/22; 1103; Inci vu; Left; Breast; s/p breast reconstruction, removal of tissue family day carer with placement of silicone implant and fat grafting; horizontal incision with multiple puncture sites; N; Full thickness 01/11/22 1103 by Naz Gonzales RN Wound 01/11/22; 1104; Inci vu; Abdomen; multiple puncture sites s/p fat graft harvest; N; Full thickness 01/11/22 1104 by Naz Gonzales RN Wound 06/18/21; 1451; Inci vu; Right; Breast; Exchange of right tissue family day carer to new family day carer; N; Full thickness; 01/11/22; 0845; Healed 06/18/21 1451 by Joann Diaz RN 01/11/22 0845 by Naz Gonzales RN Peripheral IV 01/11/22; 0709; 20; 1.25; B [place] Introcan; Posterior, Right; Forearm; Inserted by RN (Batsheva Rincon); 1; None; 3.15% Chlorhexidine with IPA; 01/11/22; 1500 01/11/22 0709 by Leticia Hernandez RN 01/11/22 1500 by Gabby Barry, RADHA Urethral Catheter 01/11/22; 0745; Inse rted by RN; Intraoperative monitoring; Double-lumen, Non-latex, Straight-tip; 16 fr; 10 ml; Yes; 01/11/22; 1246 01/11/22 0745 by Naz Gonzales RN 01/11/22 1246 by Naz Gonzales RN Non-Surgical Airway 01/11/22; 0811 (venkatesh mcconnell via procedure documentation); 01/11/22; 1303 01/11/22 0811 by Fabiola Casarez CRNA 01/11/22 1303 by Fabiola Casarez, COBY documented in this encounter Social History Tobacco [...] OR Notes * Anesthesia Postprocedure Evaluation - Fabiola Kilgore, SPIRITUAL COUNSELOR - 01/11/2022 1316 EDT Patient: Austin Squires Vital signs were reviewed with the recovery nurse. Complete vitals history is available in the Epicflowsheets. Vitals Value Taken Time BP 90/61 01/11/22 1315 Temp 36.3 01/11/22 1316 Resp 18 01/11/22 1316 Pulse From Oximetry 77 BPM 01/11/22 1316 SpO2 98 % 01/11/22 1316 Heart Rate 77 BPM 01/11/22 1316 Vitals shown include unvalidated device data. Last Pain Score - Numeric Pain Level (Scale 1-10): 0 Type of Anesthesia - general Anesthesia Post Evaluation Post-procedure vitals reviewed and are stable. Level of consciousness: awake Temperature status: normothermia Respiratory status: airway patent Cardiovascular status: acceptable Hydration status: adequate Nausea/Vomiting: none Pain management: adequate Post-Op Assessment: patient tolerated procedure well with no complications Patient participation: able to participate Disposition: outpatient/home Anesthesia Complications: No apparent anesthesia complications * Anesthesia Procedure Notes - Fabiola Kilgore CRNA - 01/11/2022 0810 EDT Associated Order(s): Airway Airway Date/Time: 01/11/2022 7:46 Urgency: elective General Information and Staff Patient location during procedure: OR Performed: resident/SPIRITUAL COUNSELOR/AA Indications and Patient Condition Indications for airway management: anesthesia Sedation level: GA Preoxygenated: yes Patient position: sniffing Ventilation assessment: 1 - Easy Final Airway Details Final airway type: endotracheal airway Successful airway: ETT Cuffed: yes Successful intubation technique: direct laryngoscopy Facilitating devices/methods: intubating stylet Endotracheal tube insertion site: oral Blade: Thanh Blade size: #3 ETT size (mm): 7.0 Cormack-Lehane Classification: grade I - full view of glottis Placement verified by: chest auscultation and capnometry Measured from: teeth ETT to teeth (cm): 20 Number of attempts at approach: 1 Ventilation between attempts: none Number of other approaches attempted: 0 * Anesthesia Preprocedure Evaluation - Ric Allen MD PhD - 01/11/2022 0731 EDT Anesthesia Preprocedure Evaluation Patient Medical History, including Anesthesia History reviewed. Chart and Nursing Notes reviewed, including NPO status and Medication History. Additional ROS/History Findings: Allergies Allergen Reactions ??? Ondansetron Other (See Comments) Dose to be limited to under 16mg daily while on Lexapro as EKG showed QTC as 0.4 ??? Oxycodone Other (See Comments) Made her hyper Review of Systems Constitutional: Negative. HENT: Negative. Eyes: Negative. Respiratory: Negative. Cardiovascular: Negative. Gastrointestinal: Negative. Genitourinary: Negative. Musculoskeletal: Negative. Skin: Negative. Neurological: Negative. Endo/Heme/Allergies: Negative. Psychiatric/Behavioral: Negative. All other systems reviewed and are negative. Past Medical History: Diagnosis Date ??? Activity, other involving cardiorespiratory exercise just signed up for steps to wellness ??? Bladder incontinence ??? Cancer ([facility]) (HCC) ??? Diabetes mellitus, type 2 (HCC) ??? Exercise involving housework ??? Exercise involving walking july till february- runs [employer]- very active. ??? Head trauma 06/19/20 fell on ice. No loss of consciosness ??? History of chemotherapy ??? History of general anesthesia ??? History of kidney stones past 3 stone ??? Poor dentition ??? Urgency of urination stress inc. Relevant Problems Neuro/Psych (+) History of anxiety CARDIOVASCULAR (+) Hypertension /Renal (+) Hepatic steatosis Physical Exam Airway Mallampati: II TM distance: >3 FB Neck ROM: full Cardiovascular Rhythm: regular Rate: normal Dental - normal exam Pulmonary Breath sounds clear to auscultation Abdominal Anesthesia Plan ASA 2 Anesthesia Type - general, to include TIVA and intravenous induction. Block for post-op pain? No Anesthesia plan and risks discussed. Informed consent obtained from patient. Specific risks discussed were nausea, vomiting and dental injury (possible allergic reaction). Code status discussed? No The preoperative history and physical which was performed within 30 days of this procedure, has been reviewed and the clinically appropriate elements of the physical examination have been repeated. There are no changes to the documented history and physical or, if so, such changes are documented inthis note Discussed plan with appropriate DAGMAR/ Nanotechnology Technician when involved PAT Note Notes from 12/12/21 through 01/11/22 No notes of this type exist for this encounter. documented in this encounter Plan of Treatment Upcoming Encounters Date Type Department Care Team (Late st Contact Info) Description 01/31/2024 13:40 EDT Office Visit [facility] Surgical Oncology - [address] [address] Maeve Morales, DO [address] [facility], [address] [place] [phone] documented as of this encounter Procedures Procedure Name Priority Date/Time Associated Diagnosis Comments ANESTHESIA INTUBATION Routine 01/11/2022 7:46 EDT documented in this encounter Results * NC AN ELECTIVE ENDOTRACHEAL AIRWAY (01/11/2022 7:46 EDT) Narrative Fabiola Kilgore CRNA - 01/11/2022 7:46 EDT Fabiola Kilgore CRNA ? 01/11/2022 ??8:11 Airway Date/Time: 01/11/2022 7:46 Urgency: elective General Information and Staff Patient location during procedure: OR Performed: resident/SPIRITUAL COUNSELOR/AA Indications and Patient Condition Indications for airway management: anesthesia Sedation level: GA Preoxygenated: yes Patient position: sniffing Ventilation assessment: 1 - Easy Final Airway Details Final airway type: endotracheal airway Successful airway: ETT Cuffed: yes Successful intubation technique: direct laryngoscopy Facilitating devices/methods: intubating stylet Endotracheal tube insertion site: oral Blade: Thanh Blade size: #3 ETT size (mm): 7.0 Cormack-Lehane Classification: grade I - full view of glottis Placement verified by: chest auscultation and capnometry Measured from: teeth ETT to teeth (cm): 20 Number of attempts at approach: 1 Ventilation between attempts: none Number of other approaches attempted: 0 Ric Allen MD PhD ANESTHE RACHEL ORDERABLES documented in this encounter Visit Diagnoses Not on filedocumented in this encounter Administered Medications Inactive Administered Medications - up to 3 most recent administrations Medication Order MAR Action Action Date Dose Rate Site acetaminophen (OFIRMEV) IV solution intravenous, PRN, Starting on Tue01/11/22 at 0849, Until Tue01/11/22 at 1316, Routine, Anesthesia Intraprocedure Given 01/11/2022 8:49 EDT 1,000 mg ceFAZolin (ANCEF) syringe 2 g 2 g, intravenous, Administer over 5 Minutes, PRE-OP ONCE, 1 dose, On Tue01/11/22 at 0645, Routine Given 01/11/2022 11:49 EDT 2 g Given 01/11/2022 7:53 EDT 2 g dexAMETHasone (DECADRON) injection intravenous, PRN, Starting on Tue01/11/22 at 0759, Until Tue01/11/22 at 1316, Routine, Anesthesia Intraprocedure Given 01/11/2022 7:59 EDT 4 mg dexmedeTOMIDine (PRECEDEX) injection intravenous, FA IP EQF CONTINUOUS PRN FOR ONE STEP MEDS, Starting on Tue01/11/22 at 0752, Until Tue01/11/22 at 1316, Routine, Anesthesia Intraprocedure Rate Change 01/11/2022 10:56 EDT 0.3 mcg/kg/hr 0.22 mL/hr Rate Change 01/11/2022 10:46 EDT 0.5 mcg/kg/hr 0.367 mL/hr Rate Change 01/11/2022 10:34 EDT 0.3 mcg/kg/hr 0.22 mL/hr dexmedeTOMIDine (PRECEDEX) injection intravenous, PRN, Starting on Tue01/11/22 at 0800, Until Tue01/11/22 at 1316, Routine, Anesthesia Intraprocedure Given 01/11/2022 8:00 EDT 36 mcg ePHEDrine injection 25 mg/5 mL syringe intravenous, PRN, Starting on Tue01/11/22 at 0931, Until Tue01/11/22 at 1316, Routine, Anesthesia Intraprocedure Given 01/11/2022 9:31 EDT 5 mg fentaNYL citrate (PF) injection intravenous, PRN, Starting on Tue01/11/22 at 0740, Until Tue01/11/22 at 1316, Routine, Anesthesia Intraprocedure Given 01/11/2022 7:40 EDT 100 mcg HYDROmorphone (DILAUDUD) 2 mg/mL injection intravenous, PRN, Starting on Tue01/11/22 at 0826, Until Tue01/11/22 at 1316, Routine, Anesthesia Intraprocedure Given 01/11/2022 12:22 EDT 0.5 mg Given 01/11/2022 8:26 EDT 0.5 mg ketAMINE in NaCl, iso-osmotic (KETALAR) 50 mg/5 mL (10 mg/mL) IV injection intravenous, PRN, Starting on Tue01/11/22 at 0756, Until Tue01/11/22 at 1316, Routine, Anesthesia Intraprocedure Given 01/11/2022 10:18 EDT 5 mg Given 01/11/2022 9:25 EDT 10 mg Given 01/11/2022 7:56 EDT 20 mg lactated ringers (LR) infusion at 25 mL/hr, intravenous, CONTINUOUS, Starting on Tue01/11/22 at 0645, Until Tue01/11/22 at 1703, Routine, Preprocedure New Bag 01/11/2022 9:25 EDT New Bag 01/11/2022 7:56 EDT Continued by Anesthesia 01/11/2022 7:33 EDT 25 mL/hr lidocaine (PF) 20 mg/mL (2 %) injection intravenous, PRN, Starting on Tue01/11/22 at 0740, Until Tue01/11/22 at 1316, Routine, Anesthesia Intraprocedure Given 01/11/2022 7:40 EDT 80 mg midazolam (PF) (VERSED) injection intravenous, PRN, Starting on Tue01/11/22 at 0733, Until Tue01/11/22 at 1316, Routine, Anesthesia Intraprocedure Given 01/11/2022 7:39 EDT 1 mg Given 01/11/2022 7:33 EDT 1 mg ondansetron (PF) (ZOFRAN) injection intravenous, PRN, Starting on Tue01/11/22 at 1212, Until Tue01/11/22 at 1316, Routine, Anesthesia Intraprocedure Given 01/11/2022 12:12 EDT 4 mg propOFol (DIPRIVAN) injection intravenous, PRN, Starting on Tue01/11/22 at 0740, Until Tue01/11/22 at 1316, Routine, Anesthesia Intraprocedure Given 01/11/2022 12:34 EDT 50 mg Given 01/11/2022 7:40 EDT 150 mg propOFol (DIPRIVAN) injection intravenous, FA IP EQF CONTINUOUS PRN FOR ONE STEP MEDS, Starting on Tue01/11/22 at 0752, Until Tue01/11/22 at 1316, Routine, Anesthesia Intraprocedure Rate Change 01/11/2022 12:12 EDT 75 mcg/kg/min 32.985 mL/hr Rate Change 01/11/2022 11:04 EDT 150 mcg/kg/min 65.97 mL/h r Rate Change 01/11/2022 10:34 EDT 125 mcg/kg/min 54.975 mL/ hr rocuronium (ZEMURON) injection intravenous, PRN, Starting on Tue01/11/22 at 0740, Until Tue01/11/22 at 1316, Routine, Anesthesia Intraprocedure Given 01/11/2022 10:14 EDT 20 mg Given 01/11/2022 9:24 EDT 30 mg Given 01/11/2022 8:39 EDT 20 mg sugammadex (BRIDION) injection intravenous, PRN, Starting on Tue01/11/22 at 1254, Until Tue01/11/22 at 1316, Routine, Anesthesia Intraprocedure Given 01/11/2022 12:54 EDT 150 mg documented in this encounter Care Teams Ornamental Machine Operator Relationship Specialty Start Date End Date Batsheva Lira FNP [address] [phone] PCP - General 02/19/20 07/21/22 documented as of this encounter
--- OUTSIDE RECORDS SUMMARY | 2023-12-10 17:39 | XMS_ITS | Encounter Summary ---
Author Organization [facility] Address [address] [place] [address] Care Team Providers Care Soakers Supervisor Name Role Phone Batsheva Lira JOHN Primary Care Provider [phone] Reason for Visit * Reason Comments Tissue Vice President Payment Fill Encounter Details Date Type Department Care Team (Latest Contact Info) Description 07/28/2021 8:30 EDT Post-op Visit [facility] Plastic, Reconstructive & Cosmetic Surgery - [address], [address] [place] [address] Anali Navas PA-C [address] [place] [address] [place] [phone] Surgery follow-up (Primary Dx) Social History [...] Progress Notes * Katia Degroot RN - 07/28/2021 0830 EDT Examination chaperoned by KATIA WILCOX RN. * Anali Navas PA-C - 07/28/2021 0830 EDT SUBJECTIVE: Austin Squries returns in follow up from right TE exchange with Dr. Carcamo on 06/18/21, last seen on 07/13/21 where 75cc were injected into the Right TE. At this time we are expanding her right TE until it reaches the size of her left TE, at which time we will continue to fill them both. She is doing well. Pain control is adequate without pain medication. She is healing well with good ROM. No acute health reports today. A TE fill is planned. She notes that her right rib pain has improved since last visit. Pt is beginning her 8th round of oral chemo today. OBJECTIVE: On examination, she is in no distress. Her incision is healing well, without sign of drainage or dehiscence. Breast skin is devoid of rash and erythema. IMPRESSION: Doing well PLAN: TE fill The right TE port was located with a magnet and marked. In sterile technique, 75 cc of injectable saline ws entered without incident. The site was then cleansed with an alcohol pad and a Band-Aid wassecured. Pt was informed to leave the Band-Aid in place for 24 hours Return every 2 weeks for TE fills. Anali Navas PA-C 07/28/2021 9:05 documented in this encounter Plan of Treatment Upcoming Encounters Date Type Department Care Team (Late st Contact Info) Description 01/31/2024 13:40 EDT Office Visit [facility] Surgical Oncology - [address] [id number] Maeve Morales, [address] [facility], [address] [place] [phone] documented as of this encounter Visit Diagnoses Diagnosis Surgery follow-up- Primary Follow-up examination, following unspecified surgery documented in this encounter Historical Medications * This list may reflect changes made after this encounter. Medication Sig Dispensed Refills Start Date End Date traZODone (DESYREL) 50 mg tablet Take 50 mg by mouth as needed. 12/03/2022 added in this encounter Care Teams Soakers Supervisor Relationship Specialty Start Date End Date Batsheva Lira FNP [address] [phone] PCP - General 02/19/20 07/21/22 documented as of this encounter
--- OUTSIDE RECORDS SUMMARY | 2023-12-10 17:39 | XMS_ITS | Encounter Summary ---
Author Organization [facility] Address [address] [place] [address] Care Team Providers Care Supervisor Fabrication Department Name Role Phone Batsheva Lira JOHN Primary Care Provider [phone] Reason for Referral * Specialty Diagnoses / Procedures Referred By Contac t Referred To Contact Anali Navas PA-C [address] [place] [phone] Referral ID Status Reason Start Date Expiration [...] or drainage at procedure or wound site * Specialty Diagnoses / Procedures Referred By Contac t Referred To Contact Anali Navas PA-C [address] [place] [address] [place] [phone] Referral ID Status Reason Start Date Expiration Date Visits Re quested Visits Authorized Comments - A temperature greater than 100.5 degrees. - Excessive bleeding saturating the dressings. - A sudden increase in drainage, pain, or swelling at the incision site or the surrounding area. - If you have persistent vomiting, have a pharmacy number so a script can be called in. - Any questions regarding your care. IF YOU HAVE A LIFE THREATENING EMERGENCY CALL 911 AND GO TO THE NEAREST HOSPITAL * Specialty Diagnoses / Procedures Referred By Jen gonzáles Referred To Contact Anali Navas PA-C [address] [place] [address] [place] [phone] Referral ID Status Reason Start Date Expiration Date Visits Re quested Visits Authorized Comments Please see Dr. Carcamo in 7-10 days or as scheduled. Call [phone] for questions or concerns. 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, estrogen receptor negative, unspecified laterality (HCC-CMS) Procedures TN REPLACEMENT TISSUE FACILITIES MANAGEMENT EXECUTIVE W/PERMANENT IMPLANT TN REVISION OF RECONSTRUCTED BREAST TN GRAFTING OF AUTOLOGOUS FAT BY LIPO 50 CC OR LESS Juanito Carcamo MD FACS [address] [place] [address] [place] [phone] Referral ID Status Reason Start Date Expiration Date Visits Re quested Visits Authorized [id number] 08/22/2021 1 1 Encounter Details Date Type Department Care Team (Latest Contact Info) Description 01/11/2022 5:48 EDT - 01/11/2022 15:02 EDT Hospital Encounter [facility] Main [place] [address] [place] [address] Juanito Carcamo MD FACS [address] [place] [address] [place], [place] [phone] Discharge Disposition: Home or Self Care Social [...] Sign Reading Time Taken Comments Blood Pressure 90/60 01/11/2022 1430 EDT Pulse - - Temperature 36.4 ??C (97.5 ??F) 01/11/2022 1430 EDT Respiratory Rate 16 01/11/2022 1430 EDT Oxygen Saturation 96% 01/11/2022 1430 EDT Inhaled Oxygen Concentration - - Weight [...] Code Departure Means Destination Home or Self Skilled Nursing documented in this encounter H&P Notes * [...] Marin MD 01/11/2022 6:17 Source Note - SHEET METAL ASSEMBLER AND RIVETER, BHAVANI 2 - 12/31/2021 9:13 EDT documented in [...] 1502 EDT Operative Note Date: 01/11/2022 Location: [facility] OR Name: Austin Squires, : 1975, PREOPERATIVE DIAGNOSIS: 1. S/P bilateral tissue adobe cq developer breast reconstruction with allograft. POSTOPERATIVE DIAGNOSIS: 1. S/P bilateral tissue adobe cq developer breast reconstruction with allograft. PROCEDURE : 1. Exchange of Bilateral Tissue Expanders to Silicone Implants. 2. Fat grafting from abdomen to bilateral breasts. Surgeons: * Juanito Carcamo MD FACS - Primary * Anali Navas PA-C - Assisting * Colleen Marin MD - Resident - Assisting Physician Cardiology Coordinator Attestation: Ms. Paniaguaa necessary and integral participant in the case and present for the entirety of the case. She served to provide aid in exposure, hemostasis, closure and other intraoperative technical functions that helped me carry out a safe operation with optimal results for the patient.) There is no plastic surgery training program at the [facility] and as such there was no qualified resident available to assist. Procedure Summary Anesthesia: General ASA: II Estimated Blood Loss: 100 mL INDICATIONS: Please see office dictation. Briefly, Austin Squires is a 46 y.o. female who has undergone bilateral tissue adobe cq developer breast reconstruction with allograft. She is here [...] fat and donor site deformity. Signed informed [employer] and signed informed [...] cannula was used to infuse the abdomen Ramesh solution. This was allowed to take effect [...] placed. I eventually selected the 755 cc [employer] smooth round Moderate Plus Xtra profile silicone [...] Note - Anali Navas PA-C - 01/11/2022 1309 EDT Brief Op Note Date of Surgery: [...] Info) Description 01/31/2024 13:40 EDT Office Visit [facility] Surgical Oncology - [address] [phone] Maeve Morales DO [address] [facility], [address] [place] [address] Scheduled Referrals Name Type Priority [...] Needs Waiting for implant orders REMOVAL, TISSUE FACILITIES MANAGEMENT EXECUTIVE, BREAST, BILATERAL, WITH BILATERAL BREAST IMPLANT INSERTION [...] EDT) 01/13/2022 14:5 2 EDT Scan 2 Psychiatric Therapist PROCEDURE/MINOR KHURRAM GICAL ORDERABLES * IMPLANT RECORD - SCANNED (01/12/2022 13:50 EDT) 01/12/2022 13:5 0 EDT Scan 2 Psychiatric Therapist PROCEDURE/MINOR KHURRAM GICAL ORDERABLES * (ABNORMAL) POCT GLUCOSE, INTERFACED (01/11/2022 13:24 EDT) Glucose, POC 149(H) 70 - 100 mg/dL 01/11/2022 13:25 EDT [facility] HN LAB POC COMMENT (GLUCOSE) Test Performed by Nursing Services 01/11/2022 13:25 EDT [facility] Blood CAPILLARY BLOOD / Unknown 01/11/2022 13:24 EDT 01/11/2022 13:25 EDT Ric Allen MD PhD POINT O F CARE TEST ORDERABLES [facility] [address] [place] [id number] * SURGICAL PATHOLOGY (01/11/2022 8:29 EDT) Note to Patient The following pathology results have been interpreted by your pathologist and may be available to you before your health provider has had the opportunity to review them. Please allow time for your provider to receive these results and explore management options, if applicable. 01/13/2022 14:56 EDT [facility] Final Diagnosis A. BREAST, [...] changes. - Negative for malignancy. 01/13/2022 14:56 [facility] Attestation There was significant resident/fellow involvement in the diagnostic evaluation of this case. By the signature below, the attending physician certifies that they have personally conducted a gross and/or microscopic examination of the described specimens and rendered or confirmed the above diagnosis. 01/13/2022 14:56 [facility] at 1456 Clinical History 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, estrogen receptor negative, unspecified laterality ([facility]) ([facility]) 01/13/2022 14:56 [facility] Gross Description A. Received in normal saline labelled with proper patient identification (initials H, R) and right mastectomy scar is an elongated centrally scarred elliptical skin, 14.5 x 0.4 cm which is excised to depth of 0.5 cm. Areas of mild slight firmness are present. Received in the same container is an irregular fibrofatty tissue, 3.5 x 0.5 x 0.4 cm. Client Engagement Manager sections are submitted in A1. B. Received in normal saline labelled with proper patient identification (initials H, R) and left mastectomy scar is an elongated centrally scarred elliptical skin, 13.2 by 0.5 cm which is excised to a depth of 0.4 cm. Areas of mild slight firmness are present. Client Engagement Manager sections are submitted in B1. C. Received in normal saline labelled with proper patient identification (initials H, R) and ? left breast tissue are irregular and elliptical portions of skin and fibroadipose tissue aggregating 20 g. The skin surfaces are without gross lesions. The fibroadipose tissues are without areas of induration. Client Engagement Manager sections are submitted in C1. D. Received in normal saline labelled with proper patient identification (initials H, R) and right breast tissue are irregular and elliptical portions of skin and fibroadipose tissue aggregating 15 g. The skin surfaces range from smooth rivera-brown to sosa and wrinkled. The fibroadipose tissues are without areas of induration. Client Engagement Manager sections are submitted in D1. SOCORRO LARSON(ASCP) 01/12/2022 10:24 01/13/2022 14:56 EDT [facility] Resident/Chris w: Mikey Self MD 01/13/2022 14:56 EDT [facility] Performing Lab [facility] 01/13/2022 14:56 EDT [facility] Scanned Images 01/13/2022 14:56 EDT [facility] Tissue TISSUE SPECIMEN FROM [...] FACS PATHOLOGY OR DERABLES Performing Organization Address City/[facility]/ZIP Co de Phone Number [facility] [address] [place] [address] * (ABNORMAL) POCT GLUCOSE, INTERFACED (01/11/2022 7:06 EDT) Glucose, POC 134(H) 70 - 100 mg/dL 01/11/2022 7:13 EDT [facility] HN LAB POC COMMENT (GLUCOSE) Test Performed by Nursing Services 01/11/2022 7:13 EDT [facility] Blood CAPILLARY BLOOD / Unknown 01/11/2022 7:06 EDT 01/11/2022 7:13 EDT Juanito Carcamo MD FACS POINT OF CAR E TEST ORDERABLES Performing Organization Address City/[facility]/ZIP Co de Phone Number [facility] [address] [place] [address] * TEST, URINE (01/11/2022 6:24 EDT) Test, Urine Negative Negative 01/11/2022 6:38 EDT [facility] Comment:False negative resul ts may occur in women who are beyond 5-8 weeks gestation. Diagnosis of should be based on a correlation of test results with typical clinical signs and symptoms. Urine URINE / Unknown Urine Collect / Unknown 01/11/2022 6:24 EDT 01/11/2022 6:29 EDT Juanito Carcamo MD FACS URINALYSIS O RDERABLES [facility] [address] [place] [address] documented in this encounter Visit Diagnoses Not on filedocumented in this encounter Administered Medications Inactive Administered Medications - up to 3 most recent administrations Medication Order MAR Action Action Date Dose Rate Site atropine 0.1 mg/mL syringe 0.5 mg 0.5 mg, intravenous, PRN, Starting on Tue01/11/22 at 1303, Until Tue01/11/22 at 1703, Symptomatic HR < 50, Routine, Recovery (only) diphenhydrAMINE (BENADRYL) injection 12.5 mg 12.5 mg, [...] at 1703, Nausea, Vomiting, Routine, Recovery (only) documented in this encounter Discontinued Medications Medication [...] PRN, Starting on Tue01/11/22 at 0842, Until 01/11/22 at 1312, Routine, Intraprocedure 0842 (Given - Provid er: Juanito Carcamo MD FACS) documented in this encounter Orders Medications Ordered That Juanito ht Not Have Been Administered Count Last Ordered Date First Ordered Date atropine 0.1 mg/mL syringe 0.5 mg 1 022 bupivacaine-EPINEPHrine (PF) 0.5 %-1:200,000 injection 1 01/11/2022 ceFAZolin (ANCEF) syringe 2 g 1 01/11/2022 [...] (PF) (ZOFRAN) injection 4 mg 1 01/11/2022 povidone-iodine (BETADINE) 1 0 % external solution 1 01/11/2022 sodium chloride (NS) 0.9 % 1 ,000 mL with lidocaine 20 mg/mL (2 %) 20 mL, EPINEPHrine (ADRENALIN) 1 mL 1 01/11/2022 sodium chloride 0.9 % 1,000 mL with ceFAZolin (ANCEF) 1,000 mg, gentamicin (GARAMYCIN) 100 mg 1 01/11/2022 sodium chloride 0.9 % 1,000 mL with povidone-iodine (BETADINE) 10 % 60 mL, ceFAZolin (ANCEF) 1,000 mg, gentamicin (GARAMYCIN) 100 mg 1 01/11/2022 Diet Count Last Ordered [...] First Orde red Date MISCELLANEOUS DISCHARGE INSTRUCTIONS 1 12/15 documented in this encounter Care Teams Supervisor Fabrication Department Relationship Specialty Start Date End Date Batsheva Lira FNP [address] [phone] PCP - General 02/19/20 07/21/22 documented as of this encounter
--- OUTSIDE RECORDS SUMMARY | 2023-12-10 17:39 | XMS_ITS | Encounter Summary ---
Author Organization [facility] Address [address] [place] [address] Care Team Providers Care Multimedia Engineer Name Role Phone Batsheva Lira JOHN Primary Care Provider [phone] Encounter Details Date Type Department Care Team (Late st Contact Info) Description 09/01/2021 Orders Only [facility] Pelvic Medicine and Reconstructive Surgery - Medical Office Building [address] [address] Mare Echeverria MD 2 [facility], [address] [phone] Stress incontinence (Primary Dx); Midline cystocele Social History Tobacco Use Types Packs/Day Years [...] Description 01/31/2024 13:40 EDT Office Visit [facility] Surgical Oncology - [address] [address] Maeve Morales, DO 111 [facility], [facility], [address] [place] [phone] documented as of this encounter Visit Diagnoses Diagnosis Stress incontinence- Primary Female stress incontinence Midline cystocele Cystocele, midline documented in this encounter Care Teams Multimedia Engineer Relationship Specialty Start Date End Date Batsheva Lira FNP [address] [phone] PCP - General 02/19/20 07/21/22 documented as of this encounter
--- OUTSIDE RECORDS SUMMARY | 2023-12-10 17:39 | XMS_ITS | Encounter Summary ---
Author Organization [facility] Address [address] [place] [address] Care Team Providers Care Treasury Analyst Name Role Phone Batsheva Lira JOHN Primary Care Provider [phone] Reason for Visit * Reason Comments Follow-up Discuss surgery (kvng benitez 06/2020) Encounter Details Date Type Department Care Team (Latest Contact Info) Description 09/01/2021 9:45 EDT Office Visit [facility] Pelvic Medicine and Reconstructive Surgery - Medical Office Building [facility] [address] [place] [address] Mare Echeverria MD 2 [facility] Medical Office Building, [address] [phone] Mixed incontinence (Primary Dx); Cystocele, midline Social [...] Dispensed Refills Start Date End Da te oxybutynin (DITROPAN XL) 5 mg CR tablet Take 1 Tablet by mouth daily for 210 days. 30 Tablet 6 09/01/2021 01/11/2022 documented in this encounter Progress Notes * Mare Echeverria MD - 09/01/2021 0945 EDT Subjective: Patient ID: Austin Squires is an 45 y.o. female. Chief Complaint Patient presents with ??? Follow-up Discuss surgery (booked 06/2020) HPI : Austin is a 45-year-old premenopausal patient presents for follow-up. She is known to me through [facility] and I have seen her in the past for history of mixed incontinence. Patient hadbeen booked in June 2020 TVT/anterior colporrhaphy. Soon after that, patient was diagnosed withbreast cancer and is ultimately underwent surgery, and chemo. She is now back and wishes to have surgery. She notes urgency and frequency was significantly improved with oxybutynin and would like to like to restart medication. SHAYY still quite bothersome and wishes to have surgery, would like to be rebooked. Patient had undergone urodynamics through [facility] which showed severe urinary stress incontinence. No evidence of detrusor overactivity at that time. Besides new diagnosis of breast cancer, patient [...] Exercise involving walking july till february- runs [employer]- very active. ??? Head trauma 06/19/20 fell [...] Types: Cigarettes Quit date: 09/17/2020 Years since quittin.9 ??? Smokeless tobacco: Never Used ??? Tobacco [...] taken for this visit. Physical Exam Constitutional: She is oriented to person, place, and time. She appears well- developed and well-nourished. Neurological: She is alert and oriented to person, place, and time. Psychiatric: She has a normal mood and affect. Judgment normal. Assessment/Plan: Mixed incontinence: Discussed urge vs. stress urinary incontinence. Patient would like to restart oxybutynin for overactive bladder symptoms and rebook surgery for SHAYY. She has a mild cystocele although not that bothersome but does need to be repaired prior to TVT placement. Patient will return forpreop, as well as see primary care physician. Booking slip completed today. I spent a total of 20 minutes on the date of this encounter meeting with the patient and reviewing documentation/coordinating care as described in the above note. No procedures were performed at the time of the visit. Mare Echeverria MD documented in this encounter Plan of Treatment Upcoming Encounters Date Type Department Care Team (Late st Contact Info) Description 01/31/2024 13:40 EDT Office Visit [facility] Surgical Oncology - [address] [id number] Maeve Morales, 111 [facility], [facility], [address] [place] [address] documented as of this encounter Visit Diagnoses Diagnosis Mixed incontinence- Primary Mixed incontinence urge and stress (male)(female) Cystocele, midline documented in this encounter Care Teams Treasury Analyst Relationship Specialty Start Date End Date Batsheva Lira FNP [address] [place] [phone] PCP - General 02/19/20 07/21/22 documented as of this encounter
--- OUTSIDE RECORDS SUMMARY | 2023-12-10 17:39 | XMS_ITS | Encounter Summary ---
Author Organization [facility] Address [address] [place] [address] Care Team Providers Care Audit Clerk Name Role Phone Batsheva Lira JOHN Primary Care Provider [phone] Reason for Visit * Reason Comments Tissue Leadership Recruiter Fill right Encounter Details Date Type Department Care Team (Latest Contact Info) Description 08/11/2021 8:30 EDT Post-op Visit [facility] [place] Plastic, Reconstructive & Cosmetic Surgery - [address], [address] [place] [address] Anali Navas PA-C [address] [place] [address] [place] [phone] Surgery follow-up (Primary Dx) Social History [...] Progress Notes * Anali Navas PA-C - 08/11/2021 0830 EDT SUBJECTIVE: Austin Squires returns in follow up from right TE exchange with Dr. Carcamo on 06/18/21, last seen on 07/28/21 where 75cc were injected into the Right TE. Currently we are expanding her rightTE until it reaches the size of her left TE, at which time we will continue to fill them both. She is doing well. She is healing well with good ROM. No acute health reports today. A TE fill is planned. Pt states that she finished her 8th round of oral chemo (it was a 2 week round) and that this is the end of her treatment. Lab work shows adequate absolute neutrophils to continue with fill today. She notes that she is a little tired, but denies fevers/chills/rash. OBJECTIVE: On examination, she is in no [...] weeks for TE fills. Anali Navas PA-C 08/11/2021 9:30 documented in this encounter Plan of Treatment Upcoming Encounters Date Type Department Care Team (Late st Contact Info) Description 01/31/2024 13:40 EDT Office Visit [facility] [place] Surgical Oncology - [address] [phone] Maeve Morales, DO 111 [facility], [address] [place] [phone] documented as of this encounter Visit Diagnoses Diagnosis Surgery follow-up- Primary Follow-up examination, following unspecified surgery documented in this encounter Care Teams Audit Clerk Relationship Specialty Start Date End Date Batsheva Lira FNP [address] [phone] PCP - General 02/19/20 07/21/22 documented as of this encounter
--- OUTSIDE RECORDS SUMMARY | 2023-12-10 17:39 | XMS_ITS | Encounter Summary ---
Author Organization [facility] Address [address] [place] [address] Care Team Providers Care Graphic Illustrator Name Role Phone Batsheva Lira JOHN Primary Care Provider [phone] Reason for Visit * Reason Onset Date Comments Results 11/30/2021 Encounter Details Date Type Department Care Team (Late st Contact Info) Description 11/30/2021 Telephone [facility] Pelvic Medicine and Reconstructive Surgery - Medical Office [facility] [address] [place], [place] [phone] Marlin Brewer, RN [address] [place] [address] Results Social History Tobacco Use Types Packs/Day Years [...] encounter Miscellaneous Notes * Telephone Encounter - Marlin Brewer RN - 11/30/2021 1103 EDT TC to pt to advise. She will finish abx and will call if symptoms recur. The patient indicates understanding of these issues and agrees with the plan. * Telephone Encounter - Marlin Brewer RN - 11/30/2021 1101 EDT ----- Message from Mare Echeverria MD sent at 11/30/2021 10:59 EDT ----- Pt on macrobid--S to it,pls remind her to finish course now that final is in. Txs documented in this encounter Plan of Treatment Upcoming Encounters Date Type Department Care Team (Late st Contact Info) Description 01/31/2024 13:40 EDT Office Visit [facility] Surgical Oncology - [address] [address] Maeve Morales, 111 [facility], [facility], [address] [place] [address] documented as of this encounter Visit Diagnoses Not on filedocumented in this encounter Care Teams Graphic Illustrator Relationship Specialty Start Date End Date Batsheva Lira FNP [address] [phone] PCP - General 02/19/20 07/21/22 documented as of this encounter
--- OUTSIDE RECORDS SUMMARY | 2023-12-10 17:40 | XMS_ITS | Encounter Summary ---
Author Organization [facility] Address [address] [place] [address] Care Team Providers Care Bundle Tier And Labeler Name Role Phone Batsheva Lira JOHN Primary Care Provider [phone] Encounter Details Date Type Department Care Team (Late st Contact Info) Description 06/12/2021 10:15 EST Phlebotomy Only [facility] ED Center 2 Phlebotomy [address] [place] [address] Manufacturing Technology Analyst, Acc Phlebotomy Malignant neoplasm of right breast in female, estrogen receptor negative, unspecified site of breast (HCC-CMS) (HCC) ([facility]-CMS) Social History Tobacco Use Types Packs/Day Years [...] 01/31/2024 13:40 EDT Office Visit [facility] Surgical Oncology - [address] [address] Maeve Morales, [address] [place] [address], Level 2 [place] [address] documented as of this encounter Procedures Procedure Name Priority Date/Time Associated Diagnosis Comments COMPLETE BLOOD COUNT AND DIFFERENTIAL STAT 06/12/2021 10:06 EST Malignant neoplasm of right breast in female, estrogen receptor negative, unspecified site of breast (HCC-CMS) (HCC) (HCC-CMS) COMPREHENSIVE METABOLIC PANEL (CMP) STAT 06/12/2021 10:06 EST Malignant neoplasm of right breast in female, estrogen receptor negative, unspecified site of breast (HCC-CMS) (HCC) (HCC-CMS) documented in this encounter Results * (ABNORMAL) COMPREHENSIVE METABOLIC PANEL (CMP) (06/12/2021 10:06 EST) Sodium 137 136 - 145 mmol/L 06/12/2021 10:33 EST [facility] Potassium 4.0 3.5 - 5.0 mmol/L 06/12/2021 10:33 [facility] Chloride 103 96 - 110 mmol/L 06/12/2021 10:33 [facility] CO2 Total 24 22 - 32 mmol/L 06/12/2021 10:33 [facility] Glucose 205(H) 70 - 100 mg/dL 06/12/2021 10:33 [facility] BUN 11 10 - 26 mg/dL 06/12/2021 10:33 [facility] Creatinine 0.43(L) 0.52 - 1.04 mg/dL 06/12/2021 10:33 [facility] eGFR 123 >60 mL/min/1.7 3m2 06/12/2021 10:33 [facility] Total Protein 7.6 6.3 - 8.2 g/dL 06/12/2021 10:33 [facility] Albumin 4.8 3.4 - 4.9 g/dL 06/12/2021 10:33 [facility] Alkaline Phosphatase 263(H) 38 - 126 U/L 06/12/2021 10:33 [facility] AST 45 15 - 46 U/L 06/12/2021 10:33 [facility] ALT 56(H) <35 U/L 06/12/2021 10:33 [facility] Bilirubin, Total 0.7 <1.4 mg/dL 06/12/19 10:33 [facility] Calcium 9.5 8.5 - 10.5 mg/dL 06/12/2021 10:33 [facility] Albumin/Globulin Ratio 1.7 1.0 - 2.5 06/12/2021 10:33 [facility] Anion Gap 10 8 - 16 06/12/2021 10:33 [facility] Blood VENOUS BLOOD / Unknown Venipuncture / Unknown 06/12/2021 10:06 EST 06/12/2021 10:12 EST Queenie Conde MD CHEMISTRY & BLOOD GA S ORDERABLES [facility] [address] [place] [address] * (ABNORMAL) COMPLETE BLOOD COUNT AND DIFFERENTIAL (06/12/2021 10:06 [facility]) WBC 7.56 4.00 - 12.40 K/cmm 06/12/2021 10:22 [facility] RBC 4.34 3.86 - 5.04 M/cmm 06/12/2021 10:22 [facility] Hemoglobin 14.6 11.6 - 15.2 gm/dL 06/12/2021 10:22 [facility] HCT 43.5 34.9 - 44.4 % 06/12/2021 10:22 [facility] MCV 100(H) 81 - 98 fl 06/12/2021 10:22 [facility] MCH 33.6(H) 26.7 - 33.3 pg 06/12/2021 10:22 [facility] MCHC 33.6 32.1 - 35.9 gm/dL 06/12/2021 10:22 [facility] RDW-CV 16.7(H) <14.7 % 06/12/2021 10:22 [facility] RDW-SD 62.4(H) <50.4 fl 06/12/2021 10:22 [facility] PLT 197 141 - 377 K/cmm 06/12/2021 10:22 [facility] MPV 9.6 9.5 - 12.7 fl 06/12/2021 10:22 [facility] % Neutrophils 64.8 % 06/12/2021 10:22 [facility] % Lymphocytes 21.8 % 06/12/2021 10:22 [facility] % Monocytes 10.4 % 06/12/2021 10:22 [facility] % Eosinophils 1.9 % 06/12/2021 10:22 [facility] % Basophils 0.7 % 06/12/2021 10:22 [facility] % Immature Grans 0.4 % 06/12/19 10:22 [facility] Absolute Neutrophils 4.90 2.20 - 8.85 K/cmm 06/12/2021 10:22 [facility] Absolute Lymphocytes 1.65 1.09 - 3.30 K/cmm 06/12/2021 10:22 [facility] Absolute Monocytes 0.79 0.10 - 0.80 K/cmm 06/12/2021 10:22 [facility] Absolute Eosinophils 0.14 0.03 - 0.61 K/cmm 06/12/2021 10:22 [facility] ABS Basophils 0.05 0.01 - 0.11 K/cmm 06/12/2021 10:22 [facility] Absolute Immature Grans 0.03 0.00 - 0.06 K/cmm 06/12/2021 10:22 [facility] Type of Differential: Auto 06/12/2021 10:22 [facility] Blood VENOUS BLOOD / Unknown Venipuncture / Unknown 06/12/2021 10:06 EST 06/12/2021 10:11 EST Queenie Conde MD PACKAGES & DNA PROBE ORDERABLES Performing Organization Address City/State/[facility] Co de Phone Number [facility] [address] [place] [address] documented in this encounter Visit Diagnoses Diagnosis Malignant neoplasm of right breast in female, estrogen receptor negative, unspecified site of breast (HCC-CMS) documented in this encounter Care Teams Bundle Tier And Labeler Relationship Specialty Start Date End Date Batsheva Lira FNP [address] [address] PCP - General 02/19/20 07/21/22 documented as of this encounter
--- OUTSIDE RECORDS SUMMARY | 2023-12-10 17:40 | XMS_ITS | Encounter Summary ---
Author Organization [facility] Address [address] [place] [address] Care Team Providers Care Radiological Metallurgist Name Role Phone Batsheva Lira JOHN Primary Care Provider [phone] Encounter Details Date Type Department Care Team (Late st Contact Info) Description 06/26/2021 Specialty Pharmacy [facility] - [facility] [address] [place] [address] Petros Vega, [facility] Social History Tobacco Use Types Packs/Day Years [...] Info) Description 01/31/2024 13:40 EDT Office Visit [facility] Surgical Oncology - [address] [id number] Maeve Morales, DO [address] [facility], [facility], Level [address] [place] [phone] documented as of this encounter Visit Diagnoses Not on filedocumented in this encounter Care Teams Radiological Metallurgist Relationship Specialty Start Date End Date Batsheva Lira FNP [address] [phone] PCP - General 02/19/20 07/21/22 documented as of this encounter
--- OUTSIDE RECORDS SUMMARY | 2023-12-10 17:40 | XMS_ITS | Encounter Summary ---
Author Organization [facility] Address [address] [place] [address] Care Team Providers Care Information Technology Specialist Name Role Phone Batsheva Lira JOHN Primary Care Provider [phone] Encounter Details Date Type Department Care Team (Late st Contact Info) Description 06/08/2021 Specialty Pharmacy [facility] - [facility] [address] [place] [address] Petros Vega, [facility] Social History Tobacco Use Types Packs/Day Years Used Date Smoking Tobacco: Former Cigarettes 0.5 30 0 09/17/1990 - 09/17/2020 Smokeless Tobacco: Never Comments:pt also vapes Alcohol Use Standard Drinks/Week Comments Yes 0 [...] Info) Description 01/31/2024 13:40 EDT Office Visit [facility] Surgical Oncology - [address] [phone] Maeve Morales, DO [address] [facility], [address] [place] [phone] documented as of this encounter Visit Diagnoses Not on filedocumented in this encounter Care Teams Information Technology Specialist Relationship Specialty Start Date End Date Batsheva Lira FNP [address] [address] PCP - General 02/19/20 07/21/22 documented as of this encounter
--- OUTSIDE RECORDS SUMMARY | 2023-12-10 17:40 | XMS_ITS | Encounter Summary ---
Author Organization [facility] Address [address] [place] [address] Care Team Providers Care Mid Level Business Analyst Name Role Phone Batsheva Lira JOHN Primary Care Provider [phone] Reason for Visit * Reason Onset Date Comments Follow-up 06/26/2021 Encounter Details Date Type Department Care Team (Late st Contact Info) Description 06/26/2021 Telephone [facility] Hematology & Oncology - [address] [phone] Edinson Lorenzana, [employer] Follow-up Social History Tobacco Use Types Packs/Day [...] Telephone Encounter - Edinson Lorenzana LICSW - 06/26/2021 0851 EST JUDIT VICK Note: Reason for Call: Pt sent me the following email, hi. just wanted to check in. still working on ssi and ssd. was wondering if any new grants are available this year? I replied stating, Lyn Avila, 1) Cancer Patient support Foundation is for $450. You have to wait until 310 to reapply. Assistance can reimburse or pay a bill on your behalf. Takes a week to send out payment. 2) [employer] is for $500, you also need to wait until 3/10 to reapply. Assistance can reimburse or pay a bill on your behalf. Takes 1-2 months to send out payment. 3) Doesn???t sound like you ever applied for the [employer]. This is for $800. Income verification would be needed for your household and a bill for whatever assistance is needed. I would also need you to sign the consent form attached. Takes 5 weeks to send out payment. They cannot reimburse, only pay on your behalf. They need a description of your hardship (brief summary). 4) [employer], $1000 monserrat and I would need you to sign the application attached. They would send the assistance directly to you in about 3 days. Funding is going fast for this one. Pt Centered Identified Goal: Financial assistance Plan: Waiting to hear back from the pt. Edinson Lorenzana [facility] ADDENDUM 11:05 Pt sent me back the [employer] jesus signed and the [facility] consent form signed. She also included an online statement for her car payment and phone payment, total $847. Pt requested $1K. I explained to her that we can submit the statements to the [employer] foundation. For the [facility] I reminded her I need income verification for her household, names and and a description of her financial hardship. documented in this encounter Plan of Treatment Upcoming Encounters Date Type Department Care Team (Late st Contact Info) Description 01/31/2024 13:40 EDT Office Visit [facility] Surgical Oncology - [address] [phone] Maeve Morales, DO 111 [facility], Level [address] [place] [phone] documented as of this encounter Visit Diagnoses Not on filedocumented in this encounter Care Teams Mid Level Business Analyst Relationship Specialty Start Date End Date Batsheva Lira FNP [address] [phone] PCP - General 02/19/20 07/21/22 documented as of this encounter
--- OUTSIDE RECORDS SUMMARY | 2023-12-10 17:40 | XMS_ITS | Encounter Summary ---
Author Organization [facility] Address [address] [place] [address] Care Team Providers Care Accredited Pharmacy Technician Name Role Phone Batsheva Lira JOHN Primary Care Provider [phone] Encounter Details Date Type Department Care Team (Late st Contact Info) Description 04/27/2021 Specialty Pharmacy [facility] - [facility] [address] [place] [address] Petros Vega, [facility] Social History Tobacco Use Types Packs/Day [...] Info) Description 01/31/2024 13:40 EDT Office Visit [facility] Surgical Oncology - [address] [phone] Maeve Morales, DO 111 [facility], [address] [place] [phone] documented as of this encounter Visit Diagnoses Not on filedocumented in this encounter Care Teams Accredited Pharmacy Technician Relationship Specialty Start Date End Date Batsheva Lira FNP [address] [address] PCP - General 02/19/20 07/21/22 documented as of this encounter
--- OUTSIDE RECORDS SUMMARY | 2023-12-10 17:40 | XMS_ITS | Encounter Summary ---
Author Organization [facility] Address [address] [place] [address] Care Team Providers Care Industrial Service Technician Name Role Phone Batsheva Lira JOHN Primary Care Provider [phone] Encounter Details Date Type Department Care Team (Late st Contact Info) Description 05/01/2021 11:00 EST Phlebotomy Only [facility] ED Center 2 Phlebotomy [address] [place] [address] Educational Audiologist, Acc Phlebotomy Malignant neoplasm of right breast in female, estrogen receptor negative, unspecified site of breast (HCC-CMS) (HCC) ([facility]-CMS) Social History Tobacco Use Types Packs/Day Years [...] [facility] - [address] [address] Maeve Morales, DO [address] [place] [address], [facility], [address] [place] [phone] documented as of this encounter Procedures Procedure Name Priority Date/Time Associated Diagnosis Comments COMPLETE BLOOD COUNT AND DIFFERENTIAL STAT 05/01/2021 11:39 EST Malignant neoplasm of right breast in female, estrogen receptor negative, unspecified site of breast (HCC-CMS) (HCC) (HCC-CMS) COMPREHENSIVE METABOLIC PANEL (CMP) STAT 05/01/2021 11:39 EST Malignant neoplasm of right breast in female, estrogen receptor negative, unspecified site of breast (HCC-CMS) (HCC) (HCC-CMS) documented in this encounter Results * (ABNORMAL) COMPREHENSIVE METABOLIC PANEL (CMP) (05/01/2021 11:39 EST) Sodium 139 136 - 145 mmol/L 05/01/2021 12:03 EST [facility] Potassium 4.2 3.5 - 5.0 mmol/L 05/01/2021 12:03 EST [facility] Chloride 104 96 - 110 mmol/L 05/01/2021 12:03 [facility] CO2 Total 25 22 - 32 mmol/L 05/01/2021 12:03 [facility] Glucose 223(H) 70 - 100 mg/dL 05/01/2021 12:03 [facility] BUN 8(L) 10 - 26 mg/dL 05/01/2021 12:03 [facility] Creatinine 0.45(L) 0.52 - 1.04 mg/dL 05/01/2021 12:03 [facility] eGFR 121 >60 mL/min/1.7 3m2 05/01/2021 12:03 [facility] Total Protein 7.4 6.3 - 8.2 g/dL 05/01/2021 12:03 [facility] Albumin 4.7 3.4 - 4.9 g/dL 05/01/2021 12:03 [facility] Alkaline Phosphatase 205(H) 38 - 126 U/L 05/01/2021 12:03 [facility] AST 45 15 - 46 U/L 05/01/2021 12:03 [facility] ALT 55(H) <35 U/L 05/01/2021 12:03 [facility] Bilirubin, Total <0.5 <1.4 mg/dL 05/01/20 12:03 [facility] Calcium 9.4 8.5 - 10.5 mg/dL 05/01/2021 12:03 [facility] Albumin/Globulin Ratio 1.7 1.0 - 2.5 05/01/2021 12:03 [facility] Anion Gap 10 8 - 16 05/01/2021 12:03 [facility] Blood VENOUS BLOOD / Unknown Venipuncture / Unknown 05/01/2021 11:39 EST 05/01/2021 11:42 EST Queenie Conde MD CHEMISTRY & BLOOD GA S ORDERABLES [facility] [address] [place] [address] * (ABNORMAL) COMPLETE BLOOD COUNT AND DIFFERENTIAL (05/01/2021 11:39 EST) WBC 6.77 4.00 - 12.40 K/cmm 05/01/2021 11:52 [facility] RBC 4.71 3.86 - 5.04 M/cmm 05/01/2021 11:52 [facility] Hemoglobin 14.2 11.6 - 15.2 gm/dL 05/01/2021 11:52 [facility] HCT 44.4 34.9 - 44.4 % 05/01/2021 11:52 [facility] MCV 94 81 - 98 fl 05/01/2021 11:52 [facility] MCH 30.1 26.7 - 33.3 pg 05/01/2021 11:52 [facility] MCHC 32.0(L) 32.1 - 35.9 gm/dL 05/01/2021 11:52 [facility] RDW-CV 17.5(H) <14.7 % 05/01/2021 11:52 [facility] RDW-SD 58.7(H) <50.4 fl 05/01/2021 11:52 [facility] PLT 191 141 - 377 K/cmm 05/01/2021 11:52 [facility] MPV 9.2(L) 9.5 - 12.7 fl 05/01/2021 11:52 [facility] % Neutrophils 61.5 % 05/01/2021 11:52 [facility] % Lymphocytes 25.4 % 05/01/2021 11:52 [facility] % Monocytes 9.5 % 05/01/2021 11:52 [facility] % Eosinophils 2.7 % 05/01/2021 11:52 [facility] % Basophils 0.6 % 05/01/2021 11:52 [facility] % Immature Grans 0.3 % 05/01/20 11:52 [facility] Absolute Neutrophils 4.17 2.20 - 8.85 K/cmm 05/01/2021 11:52 [facility] Absolute Lymphocytes 1.72 1.09 - 3.30 K/cmm 05/01/2021 11:52 [facility] Absolute Monocytes 0.64 0.10 - 0.80 K/cmm 05/01/2021 11:52 [facility] Absolute Eosinophils 0.18 0.03 - 0.61 K/cmm 05/01/2021 11:52 [facility] ABS Basophils 0.04 0.01 - 0.11 K/cmm 05/01/2021 11:52 [facility] Absolute Immature Grans 0.02 0.00 - 0.06 K/cmm 05/01/2021 11:52 [facility] Type of Differential: Auto 05/01/2021 11:52 [facility] Blood VENOUS BLOOD / Unknown Venipuncture / Unknown 05/01/2021 11:39 EST 05/01/2021 11:42 EST Queenie Conde MD PACKAGES & DNA PROBE ORDERABLES Performing Organization Address City/State/[facility] Co de Phone Number [facility] [address] [place] [address] documented in this encounter Visit Diagnoses Diagnosis Malignant neoplasm of right breast in female, estrogen receptor negative, unspecified site of breast (HCC-CMS) documented in this encounter Care Teams Industrial Service Technician Relationship Specialty Start Date End Date Batsheva Lira FNP [address] [address] PCP - General 02/19/20 07/21/22 documented as of this encounter
--- OUTSIDE RECORDS SUMMARY | 2023-12-10 17:40 | XMS_ITS | Encounter Summary ---
Author Organization [facility] Address [address] [place] [address] Care Team Providers Care Branding Machine Tender Name Role Phone Batsheva Lira JOHN Primary Care Provider [phone] Reason for Visit * Reason Comments Pre-op Exam Leaking R TE exchang e 06/15 Encounter Details Date Type Department Care Team (Late st Contact Info) Description 06/05/2021 10:15 EST Office Visit [facility] Plastic, Reconstructive & Cosmetic Surgery - [address], [address] [place] [address] Juanito Carcamo MD [address] [place] [phone] Surgery follow-up (Primary Dx) Social History [...] Notes * Juanito Carcamo MD FACS - 06/05/2021 1015 EST Austin returns to discuss exchange of her leaking right tissue pet care associate to a new nonleaking tissue pet care associate. We reviewed the risks and benefits of the surgical procedure. We discussed that I do not think this pet care associate will leak but I cannot guarantee it. 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 We discussed therisks to include but not be limited to infection, bleeding, capsular contracture and possibly but hopefully not need for further surgery. Signed informed consent was obtained today. documented in this encounter Plan of Treatment Upcoming Encounters Date Type Department Care Team (Late st Contact Info) Description 01/31/2024 13:40 EDT Office Visit [facility] Surgical Oncology - [address] [phone] Maeve Morales, DO 111 [facility], Level [address] [place] [phone] documented as of this encounter Visit Diagnoses Diagnosis Surgery follow-up- Primary Follow-up examination, following unspecified surgery documented in this encounter Care Teams Branding Machine Tender Relationship Specialty Start Date End Date Batsheva Lira FNP [address] [phone] PCP - General 02/19/20 07/21/22 documented as of this encounter
--- OUTSIDE RECORDS SUMMARY | 2023-12-10 17:40 | XMS_ITS | Encounter Summary ---
Author Organization [facility] Address [address] [place] [address] Care Team Providers Care Loan Operations Specialist Name Role Phone Batsheva Lira JOHN Primary Care Provider [phone] Reason for Visit * Reason Onset Date Comments Follow-up 06/29/2021 Encounter Details Date Type Department Care Team (Late st Contact Info) Description 06/29/2021 Telephone [facility] Hematology & Oncology - [address] [phone] Edinson Lorenzana, WATER SAFETY TEACHER Follow-up Social History Tobacco Use Types Packs/Day [...] Telephone Encounter - Edinson Lorenzana LICSW - 06/29/2021 1012 EST JUDIT VICK Note: Reason for Call: [facility] informed me that the pt has already received financial assistance this year. She was to wait until September to reapply. JUSTIN Dye helped the pt apply last September. I sent the pt an email with this update. Pt Centered Identified Goal: Financial assistance Plan: Will update the pt when [employer] has sent me their determination as this is the only monserrat she has not accessed yet. Edinson COON documented in this encounter Plan of Treatment Upcoming Encounters Date Type Department Care Team (Late st Contact Info) Description 01/31/2024 13:40 EDT Office Visit [facility] Surgical Oncology - [address] [phone] Maeve Morales DO 111 [facility], Level [address] [place] [address] documented as of this encounter Visit Diagnoses Not on filedocumented in this encounter Care Teams Loan Operations Specialist Relationship Specialty Start Date End Date Batsheva Lira FNP [address] [phone] PCP - General 02/19/20 07/21/22 documented as of this encounter
--- OUTSIDE RECORDS SUMMARY | 2023-12-10 17:40 | XMS_ITS | Encounter Summary ---
Author Organization [facility] Address [address] [place] [address] Care Team Providers Care Atm Technician Name Role Phone Batsheva Lira JOHN Primary Care Provider [phone] Reason for Visit * Reason Comments Follow-up Encounter Details Date Type Department Care Team (Late st Contact Info) Description 06/11/2021 11:00 EST Telemedicine [facility] Cancer Center Hematology & Oncology - [address] [phone] Yulissa Martines, [address], [facility] 2 [place] [address] Adjustment reaction with anxiety (Primary Dx) Social History Tobacco Use Types [...] Description 01/31/2024 13:[address] [facility] Surgical Oncology - [address] [address] Maeve Morales, 111 [facility], [facility], Level [address] [place] [phone] documented as of this encounter Visit Diagnoses Diagnosis Adjustment reaction with anxiety- Primary Adjustment disorder with anxiety documented in this encounter Care Teams Atm Technician Relationship Specialty Start Date End Date Batsheva Lira FNP [address] [phone] PCP - General 02/19/20 07/21/22 documented as of this encounter
--- OUTSIDE RECORDS SUMMARY | 2023-12-10 17:40 | XMS_ITS | Encounter Summary ---
Author Organization [facility] Address [address] [place] [address] Care Team Providers Care Powder Worker Tnt Name Role Phone Batsheva Lira JOHN Primary Care Provider [phone] Pam Germain MD Unavailable [phone] Janay Duran APRN Primary Care Provider Unava ilable Reason for Visit * Reason Onset Date Comments Medications Refill 04/06/2021 Encounter Details Date Type Department Care Team (Late st Contact Info) Description 04/06/2021 Telephone [facility] Cancer Center Hematology & Oncology - [facility] [address] [place], [place] [phone] [place] [address] [place] [phone] Medications Refill Social History Tobacco Use Types [...] Dispensed Refills Start Date End Da te capecitabine (XELODA) 500 mg tablet Take 4 Tablets by mouth 2 times daily. Take for 14 days, then stop for 7 days. 112 Tablet 5 04/06/2021 08/25/2021 documented in this encounter Plan of Treatment Upcoming Encounters Date Type Department Care Team (Late st Contact Info) Description 01/31/2024 13:40 EDT Office Visit [facility] Surgical Oncology - [address] [phone] Maeve Morales, DO [address] [place] [address], Level 2 [place] [address] documented as of this encounter Visit Diagnoses Not on filedocumented in this encounter Discontinued Medications Medication Sig Discontinue Reason Start Date End Da te capecitabine (XELODA) 500 mg tablet Take 4 Tablets by mouth 2 times daily. Take for 14 days, then stop for 7 days. Reorder 02/06/2021 04/06/2021 documented as of this encounter Care Teams Powder Worker Tnt Relationship Specialty Start Date End Date Batsheva Lira FNP [address] [place] [phone] PCP - General 02/19/20 07/21/22 Janay Duran APRN [address] [place] [phone] PCP - General Family Medicine - Primary Care 07/22/22 Pam Germain MD [address] [place] [phone] Medical Oncology 03/22/22 documented as of this encounter
--- OUTSIDE RECORDS SUMMARY | 2023-12-10 17:40 | XMS_ITS | Encounter Summary ---
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, estrogen receptor negative, unspecified laterality (HCC-CMS) (HCC) (HCC-CMS) Social History Tobacco Use Types Packs/Day [...] Office Visit [facility] Surgical Oncology - [address] [address] Maeve Morales, DO [address] [place] [address], Level 2 [place] [address] documented as of this encounter Procedures Procedure Name Priority Date/Time Associated Diagnosis Comments ZZCOVID-19 TEST [facility] PCR Today 06/12/2021 9:37 EST 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, estrogen receptor negative, unspecified laterality (HCC-CMS) (HCC) (HCC-CMS) COVID-19 TESTING Routine 06/12/2021 9:37 EST 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, estrogen receptor negative, unspecified laterality (HCC-CMS) (HCC) (HCC-CMS) documented in this encounter Results * COVID-19 TEST [facility] PCR (06/12/2021 9:37 EST) Swab BOTH ANTERIOR NARES / Unknown Swab / Unknown 06/12/2021 9:37 EST 06/12/2021 9:37 EST Juanito Carcamo MD FACS MICROBIOLOGY - GENERAL ORDERABLES [facility] [address] [place] [address] * COVID-19 TESTING (06/12/2021 9:37 EST) COVID-19 rt-PCR Result Negative Negative 06/12/2021 18:22 EST [facility] Comment: This test has not been FDA cleared or approved. This test has been authorized by FDA under an EUA for use by authorized laboratories. This test has been authorized only for detection of nucleic acid from 2019-nCoV, not for any other viruses or pathogens. This test is only authorized for the duration of the declaration that circumstances exist justifying the authorization of emergency use of in vitro diagnostic tests for detection and/or diagnosis of 2019-nCoV under section 564(b)(1) of Act, 21 U.S.C ?? 360bbb-3(b) (1), unless the authorization is terminated or revoked sooner. Negative results do not preclude 2019-nCoV infection and should not be used as the sole basis for treatment or other patient management decisions. Negative results must be combined with clinical observations, patient history, and epidemiological information. 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
--- OUTSIDE RECORDS SUMMARY | 2023-12-10 17:40 | XMS_ITS | Encounter Summary ---
Author Organization [facility] Address [address] [place] [address] Care Team Providers Care Director Correctional Agency Name Role Phone Batsheva Lira JOHN Primary Care Provider [phone] Reason for Visit * Reason Comments Follow-up Encounter Details Date Type Department Care Team (Late st Contact Info) Description 04/23/2021 9:00 EST Telemedicine [facility] Cancer Center Hematology & Oncology - [address] [phone] Yulissa Martines, [address], [facility] 2 [place] [address] Adjustment reaction with anxiety (Primary [...] Info) Description 01/31/2024 13:40 EDT Office Visit [facility] Surgical Oncology - [address] [address] Maeve Morales, DO 111 [facility], [facility], Level [address] [place] [phone] documented as of this encounter Visit Diagnoses Diagnosis Adjustment reaction with anxiety- Primary Adjustment disorder with anxiety documented in this encounter Care Teams Director Correctional Agency Relationship Specialty Start Date End Date Batsheva Lira FNP [address] [phone] PCP - General 02/19/20 07/21/22 documented as of this encounter
--- OUTSIDE RECORDS SUMMARY | 2023-12-10 17:40 | XMS_ITS | Encounter Summary ---
Author Organization [facility] Address [address] [place] [address] Care Team Providers Care Bill Of Lading Clerk Name Role Phone Batsheva Lira JOHN Primary Care Provider [phone] Encounter Details Date Type Department Care Team (Late st Contact Info) Description 05/18/2021 Specialty Pharmacy [facility] - [facility] [address] [place] [address] Petros Vega, [facility] Social History Tobacco Use Types Packs/Day Years [...] [facility] - [address] [phone] Maeve Morales, DO 111 [facility], Level 2 [place] [phone] documented as of this encounter Visit Diagnoses Not on filedocumented in this encounter Care Teams Bill Of Lading Clerk Relationship Specialty Start Date End Date Batsheva Lira FNP [address] [phone] PCP - General 02/19/20 07/21/22 documented as of this encounter
--- OUTSIDE RECORDS SUMMARY | 2023-12-10 17:40 | XMS_ITS | Encounter Summary ---
Author Organization [facility] Address [address] [place] [address] Care Team Providers Care Intensive Care Unit Nurse Name Role Phone Batsheva Lira JOHN Primary Care Provider [phone] Reason for Visit * Reason Comments Follow-up Encounter Details Date Type Department Care Team (Late st Contact Info) Description 04/06/2021 14:[address] [facility] Cancer Center Hematology & Oncology - [address] [phone] Yulissa Martines, [address], [facility] 2 [place] [address] Adjustment reaction with anxiety (Primary [...] Info) Description 01/31/2024 13:40 EDT Office Visit [facility] Surgical Oncology - [address] [address] Maeve Morales, DO [address] [facility], [facility], Level [address] [place] [phone] documented as of this encounter Visit Diagnoses Diagnosis Adjustment reaction with anxiety- Primary Adjustment disorder with anxiety documented in this encounter Care Teams Intensive Care Unit Nurse Relationship Specialty Start Date End Date Batsheva Lira FNP [address] [phone] PCP - General 02/19/20 07/21/22 documented as of this encounter
--- OUTSIDE RECORDS SUMMARY | 2023-12-10 17:40 | XMS_ITS | Encounter Summary ---
Author Organization [facility] Address [address] [place] [address] Care Team Providers Care Coil Spring Assembler Name Role Phone Batsheva Lira JOHN Primary Care Provider [phone] Reason for Visit * Reason Onset Date Comments Other 06/18/2021 Encounter Details Date Type Department Care Team (Late st Contact Info) Description 06/18/2021 Telephone [facility] Plastic, Reconstructive & Cosmetic Surgery - [address], [address] [place] [address] Juanito Carcamo MD [address] [place] [phone] Other Social History Tobacco Use Types [...] Miscellaneous Notes * Telephone Encounter - Katia Brown RN - 06/18/2021 1107 EST File # [id number]. Regina is aware. KATIA BROWN RN * Telephone Encounter - Mary Stanton - 06/18/2021 1032 EST Looking for mentor file # for return explant kit documented in this encounter Plan of Treatment Upcoming Encounters Date Type Department Care Team (Late st Contact Info) Description 01/31/2024 13:40 EDT Office Visit [facility] Surgical Oncology - [address] [phone] Maeve Morales, DO 111 [facility], [facility], Level [address] [place] [address] documented as of this encounter Visit Diagnoses Not on filedocumented in this encounter Care Teams Coil Spring Assembler Relationship Specialty Start Date End Date Batsheva Lira FNP [address] [place] [phone] PCP - General 02/19/20 07/21/22 documented as of this encounter
--- OUTSIDE RECORDS SUMMARY | 2023-12-10 17:40 | XMS_ITS | Encounter Summary ---
Author Organization [facility] Address [address] [place] [address] Care Team Providers Care Foot Tender Name Role Phone Batsheva Lira JOHN Primary Care Provider [phone] Reason for Visit * Reason Comments Tissue Devops Developer Fill bilateral Encounter Details Date Type Department Care Team (Late st Contact Info) Description 05/28/2021 10:45 EST Office Visit [facility] Plastic, Reconstructive & Cosmetic Surgery - [address], [address] [place] [address] Juanito Carcamo MD [address] [place] [address] Surgery follow-up (Primary Dx) Social [...] Notes * Juanito Carcamo MD FACS - 05/28/2021 1048 EST Austin returns for possible fill of her tissue building architectural designer. There is a suspicion that the right tissue building architectural designer has a leak which is why she is seeing me today. On exam this is no longer suspicion. Her right tissue building architectural designer is completely empty. This is clearly had a catastrophic failure and attempting to further fill it would be fruitless and unnecessary risk for the patient. We discussed that she would need to return to the operating room for exchange. We discussed the risks and benefits of the surgery. We also discussed the QA pathway that we follow with the company. I will work to schedule her for the OR. She will return to see me for preoperative appointment prior to surgery. documented in this encounter Plan of Treatment Upcoming Encounters Date Type Department Care Team (Late st Contact Info) Description 01/31/2024 13:40 EDT Office Visit [facility] Surgical Oncology - [address] [phone] Maeve Morales, DO 111 [facility], [facility], Level 2 [place] [phone] documented as of this encounter Visit Diagnoses Diagnosis Surgery follow-up- Primary Follow-up examination, following unspecified surgery documented in this encounter Care Teams Foot Tender Relationship Specialty Start Date End Date Batsheva Lira FNP [address] [phone] PCP - General 02/19/20 07/21/22 documented as of this encounter
--- OUTSIDE RECORDS SUMMARY | 2023-12-10 17:40 | XMS_ITS | Encounter Summary ---
Author Organization [facility] Address [address] [place] [address] Care Team Providers Care Upper Caser Name Role Phone Batsheva Lira JOHN Primary Care Provider [phone] Reason for Visit * Reason Comments Post-OP Follow Up 06/18/21-right TE Encounter Details Date Type Department Care Team (Latest Contact Info) Description 06/25/2021 16:15 EST Post-op Visit [facility] Plastic, Reconstructive & Cosmetic Surgery - [address], [address] [place] [address] Juanito Carcamo MD [address] [place] [phone] Surgery follow-up (Primary Dx) Social History [...] capsule by mouth 4 times daily for 7 days. 28 capsule 06/25/2021 07/02/2021 cephalexin (KEFLEX) 500 mg capsule Take 1 capsule by mouth 4 times daily for 7 days. 28 capsule 06/25/2021 06/25/2021 documented in this encounter Progress Notes * Katia Degroot RN - 06/25/2021 1615 EST Examination chaperoned by KATIA WILCOX RN. Prescription for Keflex 500mg 1 capsule QID for [facility] KATIA WILCOX RN * Juanito Carcamo MD FACS - 06/25/2021 1615 EST Austin follows up after the exchange of her deflated right prepectoral tissue application support technician to a new tissue application support technician on June 18, 2021. She reports that she is doing well. Her incision is healing nicely.Her tapes were changed. We discussed postoperative activity and restrictions. She is going away forshort vacation towards the end of the month. I have given her a prescription for Keflex that she isnot to take unless she calls the office and we direct her to. Signs and symptoms of infection / complications were discussed. Patient knows to call for questions or concerns. Will follow up in 3 weeks. documented in this encounter Plan of Treatment Upcoming Encounters Date Type Department Care Team (Late st Contact Info) Description 01/31/2024 13:40 EDT Office Visit [facility] Surgical Oncology - [address] [phone] Maeve Morales, 111 [facility], [facility], Level 2 [place] [address] documented as of this encounter Visit Diagnoses Diagnosis Surgery follow-up- Primary Follow-up examination, following unspecified surgery documented in this encounter Discontinued Medications Medication Sig Discontinue Reason Start Date End Da te cephalexin (KEFLEX) 500 mg capsule Take 1 capsule by mouth 4 times daily for 7 days. Reorder 06/25/2021 06/25/2021 documented as of this encounter Care Teams Upper [place]er Relationship Specialty Start Date End Date Batsheva Lira FNP [address] [phone] PCP - General 02/19/20 07/21/22 documented as of this encounter
--- OUTSIDE RECORDS SUMMARY | 2023-12-10 17:40 | XMS_ITS | Encounter Summary ---
Author Organization [facility] Address [address] [place] [address] Care Team Providers Care Raimann Machine Operator Name Role Phone Batsheva Lira JOHN Primary Care Provider Encounter Details Date Type Department Care Team (Late st Contact Info) Description 04/06/2021 Specialty Pharmacy [facility] [address] [place] [address] Petros Vega, [facility] Social History Tobacco Use Types [...] Info) Description 01/31/2024 13:40 EDT Office Visit [facility] Surgical Oncology - [address] [phone] Maeve Morales, DO 111 [facility], Level 2 [place] [phone] documented as of this encounter Visit Diagnoses Not on filedocumented in this encounter Care Teams Raimann Machine Operator Relationship Specialty Start Date End Date Batsheva Lira FNP [address] [phone] PCP - General 02/19/20 07/21/22 documented as of this encounter
--- OUTSIDE RECORDS SUMMARY | 2023-12-10 17:40 | XMS_ITS | Encounter Summary ---
Author Organization [facility] Address [address] [place] [address] Care Team Providers Care Audio/Visual Manager Name Role Phone Batsheva Lira JOHN Primary Care Provider [phone] Reason for Visit * Reason Comments Tissue Swatch Cutter Fill Bilateral TE fill Encounter Details Date Type Department Care Team (Late st Contact Info) Description 04/07/2021 10:00 EST Office Visit [facility] Plastic, Reconstructive & Cosmetic Surgery - [address], [address] [place] [address] Juanito Carcamo MD [address] [place] [phone] Surgery follow-up (Primary Dx) Social History [...] Progress Notes * Mike Gotti RN - 04/07/2021 1000 EST Examination chaperoned by MIKE GOTTI RN. * Juanito Carcamo MD FACS - 04/07/2021 1000 EST Austin is here for fill of her bilateral tissue expanders. After verbal informed consent was obtained the port was located magnetically and marked. A chloraprep was used for sterilization. Using standard sterile technique and a closed system the port was accessed and the sales exhibitor filled with 75 cc of injectable saline bilaterally. The patient tolerated the procedure well. Access sites were dressed with spot bandaids to be removed tomorrow. Totals were recorded on the flow sheet. She now has fills of 575 cc's bilaterally. Signs and symptoms of infection were discussed. She will follow up in 2-3weeks. documented in this encounter Plan of Treatment Upcoming Encounters Date Type Department Care Team (Late st Contact Info) Description 01/31/2024 13:40 EDT Office Visit [facility] Surgical Oncology - [address] [address] Maeve Morales, DO 111 [facility], [facility], Level 2 [place] [phone] documented as of this encounter Visit Diagnoses Diagnosis Surgery follow-up- Primary Follow-up examination, following unspecified surgery documented in this encounter Care Teams Audio/Visual Manager Relationship Specialty Start Date End Date Batsheva Lira FNP [address] [phone] PCP - General 02/19/20 07/21/22 documented as of this encounter
--- OUTSIDE RECORDS SUMMARY | 2023-12-10 17:40 | XMS_ITS | Encounter Summary ---
Author Organization [facility] Address [address] [place] [address] Care Team Providers Care Home Health Scheduler Name Role Phone Batsheva Lira JOHN Primary Care Provider [phone] Reason for Visit * Reason Comments Follow-up Encounter Details Date Type Department Care Team (Late st Contact Info) Description 05/21/2021 11:00 EST Telemedicine [facility] Cancer Center Hematology & Oncology - [address] [phone] Yulissa Martines, [address], [facility] 2 [place] [address] Adjustment reaction with anxiety (Primary [...] 01/31/2024 13:40 EDT Office Visit [facility] Surgical Oncology - [address] [address] Maeve Morales, DO 111 [facility], [facility], Level 2 [place] [phone] documented as of this encounter Visit Diagnoses Diagnosis Adjustment reaction with anxiety- Primary Adjustment disorder with anxiety documented in this encounter Care Teams Home Health Scheduler Relationship Specialty Start Date End Date Batsheva Lira FNP [address] [phone] PCP - General 02/19/20 07/21/22 documented as of this encounter
--- OUTSIDE RECORDS SUMMARY | 2023-12-10 17:40 | XMS_ITS | Encounter Summary ---
Author Organization [facility] Address [address] [place] [address] Care Team Providers Care Portfolio Director Name Role Phone Batsheva Lira JOHN Primary Care Provider [phone] Encounter Details Date Type Department Care Team (Late st Contact Info) Description 04/13/2021 10:15 EST Phlebotomy Only [facility] 2 Phlebotomy [address] [place] [address] Event Specialist, Acc Phlebotomy Malignant neoplasm of right breast in female, estrogen receptor negative, unspecified site of breast (HCC-CMS) (HCC) ([facility]-CMS) Social History Tobacco Use Types Packs/Day [...] Description 01/31/2024 13:40 EDT Office Visit [facility]cology - [address] [address] Maeve Morales, DO [address] [place] [address], [facility], [address] [place] [id number] documented as of this encounter Procedures Procedure Name Priority Date/Time Associated Diagnosis Comments COMPLETE BLOOD COUNT AND DIFFERENTIAL STAT 04/13/2021 10:10 EST Malignant neoplasm of right breast in female, estrogen receptor negative, unspecified site of breast (HCC-CMS) (HCC) (HCC-CMS) COMPREHENSIVE METABOLIC PANEL (CMP) STAT 04/13/2021 10:10 EST Malignant neoplasm of right breast in female, estrogen receptor negative, unspecified site of breast (HCC-CMS) (HCC) (HCC-CMS) documented in this encounter Results * (ABNORMAL) COMPREHENSIVE METABOLIC PANEL (CMP) (04/13/2021 10:10 EST) Sodium 138 136 - 145 mmol/L 04/13/2021 10:29 EST [facility] Potassium 4.0 3.5 - 5.0 mmol/L 04/13/2021 10:29 EST [facility] Chloride 103 96 - 110 mmol/L 04/13/2021 10:29 [facility] CO2 Total 25 22 - 32 mmol/L 04/13/2021 10:29 [facility] Glucose 212(H) 70 - 100 mg/dL 04/13/2021 10:29 [facility] BUN 9(L) 10 - 26 mg/dL 04/13/2021 10:29 [facility] Creatinine 0.49(L) 0.52 - 1.04 mg/dL 04/13/2021 10:29 [facility] eGFR 118 >60 mL/min/1.7 3m2 04/13/2021 10:29 [facility] Total Protein 8.0 6.3 - 8.2 g/dL 04/13/2021 10:29 [facility] Albumin 5.0(H) 3.4 - 4.9 g/dL 04/13/2021 10:29 [facility] Alkaline Phosphatase 219(H) 38 - 126 U/L 04/13/2021 10:29 [facility] AST 73(H) 15 - 46 U/L 04/13/2021 10:29 [facility] ALT 82(H) <35 U/L 04/13/2021 10:29 [facility] Bilirubin, Total 0.8 <1.4 mg/dL 04/13/20 10:29 [facility] Calcium 9.8 8.5 - 10.5 mg/dL 04/13/2021 10:29 [facility] Albumin/Globulin Ratio 1.7 1.0 - 2.5 04/13/2021 10:29 [facility] Anion Gap 10 8 - 16 04/13/2021 10:29 [facility] Blood VENOUS BLOOD / Unknown Venipuncture / Unknown 04/13/2021 10:10 EST 04/13/2021 10:14 EST Queenie Conde MD CHEMISTRY & BLOOD GA S ORDERABLES [facility] [address] [place] [address] * (ABNORMAL) COMPLETE BLOOD COUNT AND DIFFERENTIAL (04/13/2021 10:10 [facility]) WBC 6.77 4.00 - 12.40 K/cmm 04/13/2021 10:19 [facility] RBC 5.11(H) 3.86 - 5.04 M/cmm 04/13/2021 10:19 [facility] Hemoglobin 15.1 11.6 - 15.2 gm/dL 04/13/2021 10:19 [facility] HCT 44.6(H) 34.9 - 44.4 % 04/13/2021 10:19 [facility] MCV 87 81 - 98 fl 04/13/2021 10:19 [facility] MCH 29.5 26.7 - 33.3 pg 04/13/2021 10:19 [facility] MCHC 33.9 32.1 - 35.9 gm/dL 04/13/2021 10:19 [facility] RDW-CV 16.2(H) <14.7 % 04/13/2021 10:19 [facility] RDW-SD 50.2 <50.4 fl 04/13/2021 10:19 [facility] PLT 213 141 - 377 K/cmm 04/13/2021 10:19 [facility] MPV 8.9(L) 9.5 - 12.7 fl 04/13/2021 10:19 [facility] % Neutrophils 68.4 % 04/13/2021 10:19 [facility] % Lymphocytes 19.2 % 04/13/2021 10:19 [facility] % Monocytes 9.0 % 04/13/2021 10:19 [facility] % Eosinophils 2.2 % 04/13/2021 10:19 [facility] % Basophils 0.9 % 04/13/2021 10:19 [facility] % Immature Grans 0.3 % 04/13/20 10:19 [facility] Absolute Neutrophils 4.63 2.20 - 8.85 K/cmm 04/13/2021 10:19 [facility] Absolute Lymphocytes 1.30 1.09 - 3.30 K/cmm 04/13/2021 10:19 [facility] Absolute Monocytes 0.61 0.10 - 0.80 K/cmm 04/13/2021 10:19 [facility] Absolute Eosinophils 0.15 0.03 - 0.61 K/cmm 04/13/2021 10:19 [facility] ABS Basophils 0.06 0.01 - 0.11 K/cmm 04/13/2021 10:19 [facility] Absolute Immature Grans 0.02 0.00 - 0.06 K/cmm 04/13/2021 10:19 [facility] Type of Differential: Auto 04/13/2021 10:19 [facility] Blood VENOUS BLOOD / Unknown Venipuncture / Unknown 04/13/2021 10:10 EST 04/13/2021 10:14 EST Queenie Conde MD PACKAGES & DNA PROBE ORDERABLES Performing Organization Address City/State/[facility] Co de Phone Number [facility] [address] [place] [address] documented in this encounter Visit Diagnoses Diagnosis Malignant neoplasm of right breast in female, estrogen receptor negative, unspecified site of breast (HCC-CMS) documented in this encounter Care Teams Portfolio Director Relationship Specialty Start Date End Date Batsheva Lira FNP [address] [phone] PCP - General 02/19/20 07/21/22 documented as of this encounter
--- OUTSIDE RECORDS SUMMARY | 2023-12-10 17:40 | XMS_ITS | Encounter Summary ---
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) Procedures [place] REMOVAL TISSUE FEATHER DUSTER WINDER W/O INSERTION IMPLANT [place] TISSUE FEATHER DUSTER WINDER PLACEMENT BREAST RECONSTRUCTION right breast tissue irrigation system installer replacement RECONSTRUCTION, BREAST, WITH TISSUE FEATHER DUSTER WINDER Referral ID Status Reason Start Date Expiration Date Visits Re quested Visits Authorized [id number] 1 1 Encounter Details Date Type Department Care Team (Late st Contact Info) Description 06/18/2021 13:35 EST - 06/18/2021 16:40 EST Surgery [facility] [place] [address] [place] [address] Juanito Carcamo MD [address] [place] [address] exchange of right tissue irrigation system installer to new irrigation system installer (for leakage) [59724 (CPT??)] Surgery Details Date/Time Status Location OR Service Patient Class Case Cl ass Case Type Trauma Case? 06/18/21 1335 Posted [facility] OR [address] Outpatient Surgery H - Elective Panel 1 Procedure LRB Anes Op Region Wound Class Comments exchange of right tissue exp graham to new irrigation system installer (for leakage) Right General Breast Class I/ Clean RECONSTRUCTION, BREAST, WITH TISSUE FEATHER DUSTER WINDER Right General Breast Class I/ Clean Surgeon Surgeon Role Service Panel Oksana Wilkins PA-C Assisting Plastics 1 Juanito Carcamo MD FACS Primary Plastics 1 Montserrat Rogel DO Resident - Assisting Plastics 1 Special Needs SDC- 150H x2 documented in this encounter Social History Tobacco [...] Sign Reading Time Taken Comments Blood Pressure 99/56 06/18/2021 1630 EST Pulse - - Temperature 36 ??C (96.8 ??F) 06/18/2021 1605 EST Respiratory Rate 14 06/18/2021 1630 EST Oxygen Saturation 98% 06/18/2021 1630 EST Inhaled Oxygen Concentration - - Weight 77.7 kg (171 lb 4.8 oz) 06/18/[address] Height 165.1 cm (5' 5) 06/18/2021 1211 EST Body Mass Index 28.51 06/18/2021 1211 EST documented in this encounter [...] No 12/24/2020 documented as of this encounter Discharge Instructions * Discharge Instructions* Briseyda Gilliam RN - 06/18/2021 17:21 EST Tylenol- 650-1,000 mg every 6 hours, next dose due at 8:45 Pm tonight documented in this encounter Medications at Time of Discharge [...] for 5 days. 20 capsule 01/11/2022 01/16/2022 cephalexin (KEFLEX) 500 mg capsule Take 1 capsule by mouth every 6 hours for 5 days. 20 capsule 06/18/2021 06/23/2021 escitalopram oxalate (LEXAPRO) 10 mg tablet Take 30 mg by mouth daily. 12/03/2022 HYDROmorphone (DILAUDID) 2 mg tablet Take 1 Tablet by mouth every 4 hours as needed for Pain. Daily Max: 12 mg 20 Tablet 01/11/2022 01/19/2022 HYDROmorphone (DILAUDID) 2 mg tablet Take 1-2 Tablets by mouth every 4 hours as needed for Pain. Daily Max: 24 mg 15 Tablet 06/18/2021 06/23/2021 INTRAUTERINE DEVICE, IUD, INTRAUTERINE by intrauterine route. 01/11/2022 documented as of this encounter Ordered Prescriptions Prescription Sig Dispensed Refills Start Date End Da te cephalexin (KEFLEX) 500 mg capsule Take 1 capsule by mouth every 6 hours for 5 days. 20 capsule 06/18/2021 06/23/2021 HYDROmorphone (DILAUDID) 2 mg tablet Take 1-2 Tablets by mouth every 4 hours as needed for Pain. Daily Max: 24 mg 15 Tablet 06/18/2021 06/23/2021 documented in this encounter Discharge Disposition Disposition Code Departure Means Destination Home or Self Group Home documented in this encounter H&P Notes * Montserrat Rogel DO - 06/18/2021 1335 EST The preoperative history and physical which was performed within 30 days of this procedure has beenreviewed and the clinically appropriate elements of the physical examination have been repeated. There are no changes to the documented history and physical or if so such changes are documented below. Physical exam: Respiratory: clear to auscultation bilaterally. No increased work of breathing Cardiac: regular rate and rhythm MONTSERRAT ROGEL DO 06/18/2021 13:41 Source Note - Oksana Wilkins PA-C - 05/19/2021 10:15 EST SUBJECTIVE: Austin Squires returns in follow up from bilateral tissue irrigation system installer reconstruction with allograft of breasts after mastectomy on 12/24/2020. She is doing well. She was last seen on 04/28/21and received a TE fill at that time. Of note, The patient contacted the office two days ago to report a leak on the right side. No trauma or injury to the right side is reported. Review of Systems Constitutional: Negative for chills and fever. Respiratory: Negative for cough and shortness of breath. Gastrointestinal: Negative for abdominal pain. Skin: Negative for itching and rash. Endo/Heme/Allergies: Does not bruise/bleed easily. OBJECTIVE: On examination, she is in no distress. Her incisions are maturing nicely. Skin devoid ofrash, erythema and ecchymoses. The right TE has a considerable size disparity and is soft on palpation. There does not appear to be any malposition of the right TE. IMPRESSION: Doing well; Likely Right TE rupture. PLAN: In sterile technique, the bilateral TE ports were accessed and the left side was filled with 75 cc of sterile normal saline; the right was filled with 120 cc. Post fill palpation on the right reveals only a slight change in volume. The TE ports site was cleansed with an alcohol pad and a spotBand-Aid was secured. Follow up by telephone to advise of changes on the right side. Will discuss TE planning with Dr Carlos Alberto Wilkins PA-C 05/19/2021 10:41 documented in this encounter Nursing Notes * Long Ball RN - 06/18/2021 1252 EST The Patient Declines testing for prior to the Surgery/ Procedure. The following were Explained to the Patient: ?? Testing is done to minimize the risk of potential adverse effects of Anesthesia/ Surgery on a developing fetus ?? It is a [facility] Policy to test all females who are having menstrual periods ?? It is for their safety and that of a developing fetus should they be ?? The Patient does have the right to decline and understands the risks of not obtaining the test Anesthesiologist Dr. Petty wa notified. * Long Ball RN - 06/18/2021 1157 EST Preop Covid DOS screening questionnaire Please document [...] home test? no Were you covid tested? yes When: 06/16/21 Results: neg Vaccinated: YES See admission vital signs documentation for admission temperature. documented in this encounter OR Notes * OR Surgeon - Juanito Carcamo MD FACS - 06/18/2021 1725 EST Operative Note Date: 06/18/2021 Location: [facility] OR Name: Austin Squires, : 1975, PREOPERATIVE DIAGNOSIS: (1) Deflated right prepectoral irrigation system installer POSTOPERATIVE DIAGNOSIS: (1) Deflated right prepectoral irrigation system installer PROCEDURE : 1.Right Prepectoral Tissue Breaker Boss exchange after irrigation system installer deflation. SURGEON: Juanito Carcamo MD FACS - Primary Franky, Oksana Guthrie PA-C - Assisting Montserrat Rogel DO - Resident - Assisting Physician Field Administrator Attestation: Ms. Wilkins was a necessary and integral participant in the case and present for the entirety of the case. She served to provide aid in exposure, hemostasis, closure and other intraoperative technical functions that helped me carry out a safe operation with optimal results for the patient. As there is no plastic surgery training program at the [facility], no qualified resident was available to assist. ANESTHESIA: General endotracheal INDICATIONS: Please see office dictation. Briefly, Austin Squires is a 45 y.o. female who is s/p skin sparing mastectomy and irrigation system installer and allograft based breast reconstruction bilaterally. She has a sudden failure of the right irrigation system installer that will not inflate even temporarily with fills. Risks and benefits of irrigation system installer exchange were thoroughly discussed with the patient preoperatively. Signed informed hospital consents have been obtained and [...] and draped in the standard sterile manner. The mastectomy scar was then excised. Dissection was carried down to the AlloDerm which was opened with Bovie electrocautery. Fluid was sampled and sent for culture. The ruptured irrigation system installer was removed. A seam was seen to be the site of failure. The pocket was thoroughly irrigated with antibiotic solution and carefully inspected for hemostasis. A 2-0 PDS suture was then placed medially and the medial tab was secured. The central tab was then secured against the neoinframammary fold with a 2-0 PDS suture. Once this was seen to be in good position, the remaining 4th tab was then secured. The 750 cc [place] irrigation system installer was then accessed and filled using a closed loop system to 350 ml of normal saline IV solution. The skin was temporarily stapled together and then closed with buried interrupted 3-0 Monocryl and a running 4-0 Monocryl. The skin was dressed with benzoin and 1-inch sterile paper tape. ABD's and compression bra wereplaced. The patient was awakened, extubated and transferred to the recovery room in stable condition. At all times during the case when ever the expanders were touched gloves were changed, the instruments were dipped in antibiotic solution and the skin was re-prepped with Betadine. At the end of the case, all appropriate needle, instrument and sponge counts were correct. Postop brief noted no deficiencies. Third stage of the WHO checklist was appropriately completed. documented in this encounter Miscellaneous Notes * Brief Op Note - Oksana Wilkins PA-C - 06/18/2021 1549 EST Brief Op Note Date of Surgery: 06/18/2021 Surgeon: Juanito Carcamo MD Assistants: Oksana Wilkins PA-C Pre-Op Diagnosis: Hx of Breast Cancer Post-Op Diagnosis: Hx of Breast Cancer Procedure(s): 1. Replacement of Tissue irrigation system installer (600 cc filled to 350 cc) Findings: See attending dictation for complete operative details. Anesthesia Type: General Estimated Blood Loss: Unless otherwise noted, there was no blood loss, specimens removed, cultures obtained, or drains retained. The estimated blood loss was Minimal Fluids: Austin Squires received Crystalloids 1 L of fluid replacement. Urine Output: na Specimens/Cultures: patricia prosthetic fluid and mastectomy scar Drains/Packs: None Complications: None Disposition and Condition: Austin Squires was sent to PACU in Good condition. Plan: Home with medication for pain control and infection prophylaxis. Oksana Wilkins PA-C 06/18/2021 15:49 CPT: [ ] documented in this encounter Plan of Treatment Upcoming Encounters Date Type Department Care Team (Late st Contact Info) Description 01/31/2024 13:40 EDT Office Visit [facility] Surgical Oncology - [address] [id number] Maeve Morales DO [address] [facility], [address] [place] [phone] Scheduled Referrals Name Type Priority Associated Diagnoses Order Schedule PROVIDER FOLLOW-UP INSTRUCTIONS Outpatient Referral Routine/Next Available Ordered: 06/18/2021 PROVIDER FOLLOW-UP INSTRUCTIONS Outpatient Referral Routine/Next Available Ordered: 06/18/2021 documented as of this encounter Procedures Procedure Name Priority Date/Time Associated Diagnosis Comments IMPLANT RECORD - SCANNED 06/24/2021 11:47 EST IMPLANT RECORD - SCANNED 06/22/2021 11:01 EST SURGICAL PATHOLOGY Routine 06/18/2021 15:01 EST AFB CULTURE/SMEAR, OTHER Routine 06/18/2021 15:01 EST ANAEROBE CULTURE/SMEAR(INC . 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, estrogen receptor negative, unspecified laterality (HCC-CMS) (HCC) (HCC-CMS) Special Needs SDC- 150H x2 documented in this encounter Results * IMPLANT RECORD - SCANNED (06/24/2021 11:47 EST) 06/24/2021 11:4 7 EST Scan 2 Line Installer PROCEDURE/MINOR KHURRAM GICAL ORDERABLES * IMPLANT RECORD - SCANNED (06/22/2021 11:01 EST) 06/22/2021 11:0 1 EST Scan 2 Line Installer PROCEDURE/MINOR KHURRAM GICAL ORDERABLES * SURGICAL PATHOLOGY (06/18/2021 15:01 EST) Note to Patient The following pathology results have been interpreted by your pathologist and may be available to you before your health provider has had the opportunity to review them. Please allow time for your provider to receive these results and explore management options, if applicable. 06/23/2021 10:21 [facility] Final Diagnosis A. SKIN, RIGHT MASTECTOMY SCAR, EXCISION: - Benign skin and subcutaneous tissue with scar. 06/23/2021 10:21 [facility] Attestation There was significant resident/fellow involvement in the diagnostic evaluation of this case. By the signature below, the attending physician certifies that they have personally conducted a gross and/or microscopic examination of the described specimens and rendered or confirmed the above diagnosis. 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) ([facility]) 06/23/2021 10:21 [facility] Gross Description A. Received in normal saline labelled with proper patient identification (initials H, R) and right mastectomy scar is an unoriented elliptical excision of sosa skin (5.2 x 0.9 cm, excised to a maximum depth of 1.3 cm). There is a central sosa-white linear depressed well-healed scar (4.5 x 0.2 x 0.1 cm) located on the skin surface. The remaining skin surface is unremarkable. The specimen is serially sectioned to reveal yellow-white cut surfaces with possible focal areas of fat necrosis but without gross lesions. Blade Grinder sections are submitted in A1. SOCORRO BOWENS(ASCP) 06/19/2021 8:58 06/23/2021 10:21 [facility] Resident/Chris w: Ang Allen MD 06/23/2021 10:21 [facility] Performing Lab [facility] 06/23/2021 10:21 [facility] Scanned Images 06/23/2021 10:21 [facility] Tissue TISSUE SPECIMEN FROM SKIN / Unknown 06/18/2021 15:01 EST 06/18/2021 16:38 EST Juanito Carcamo MD, FACS PATHOLOGY OR DERABLES Performing Organization Address [facility] Co de Phone Number [facility] [address] [place] [address] * AFB CULTURE/SMEAR, OTHER (06/18/2021 15:01 EST) Organism ID No acid-fast bacilli isolated VITEK SUSCEPTIBILITY 08/14/2021 9:40 EDT [facility] AFB Smear No Acid Fast Bacilli Seen 08/14/2021 9:40 EDT [facility] Fluid ENTIRE RIGHT BREAST / Unknown 06/18/2021 15:01 EST 06/18/2021 15:29 EST Juanito Carcamo MD FACS MICROBIOLOGY - GENERAL ORDERABLES Performing Organization Address City/[facility]/ZIP Co de Phone Number [facility] [address] [place] [address] * (ABNORMAL) ANAEROBE CULTURE/SMEAR(INC. AEROBES), OTHER (06/18/2021 15:01 EST) Organism ID No Growth 06/23/2021 10:34 [facility] Smear Neutrophils Present(A) 06/23/2021 10:34 [facility] Smear No bacteria seen(A) 06/23/2021 10:34 EST [facility] Fluid ENTIRE RIGHT BREAST / Unknown 06/18/2021 15:01 EST 06/18/2021 15:29 EST Juanito Carcamo MD, FACS MICROBIOLOGY - GENERAL ORDERABLES [facility] [address] [place] [address] * FUNGUS CULTURE/SMEAR (06/18/2021 15:01 EST) Organism ID No fungi isolated 07/16/2021 10:59 EST [facility] Fungal Smear No Fungi Seen 07/16/2021 10:59 EST [facility] Fluid ENTIRE RIGHT BREAST / Unknown 06/18/2021 15:01 EST 06/18/2021 15:29 EST Juanito Carcamo MD FACS MICROBIOLOGY - GENERAL ORDERABLES Performing Organization Address City/[facility] Co de Phone Number [facility] [address] [place] [address] documented in this encounter Visit Diagnoses Diagnosis 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, estrogen receptor negative, unspecified laterality (HCC-CMS) documented in this encounter Administered Medications Inactive Administered Medications - up to 3 most recent administrations Medication Order MAR Action Action Date Dose Rate Site acetaminophen (TYLENOL) tablet 1,000 mg 1,000 mg, oral, PRN, 1 dose, Starting on Tue06/18/21 at 2040, Until Klaudia 06/18/21 at 2207, Pain, Routine, Recovery (only) atropine 0.1 mg/mL syringe 0.5 mg 0.5 mg, intravenous, PRN, Starting on Klaudia 06/18/21 at 1552, Until Klaudia 06/18/21 at 2207, Symptomatic HR < 50, Routine, Recovery (only) bupivacaine-EPINEPHrine (PF) 0.5 %-1:200,000 injection PRN, Starting on Klaudia 06/18/21 at 1529, Until Klaudia 06/18/21 at 1600, Routine, Intraprocedure Given 06/18/2021 15:33 EST 5 mL Given 06/18/2021 15:29 EST 20 mL diphenhydrAMINE (BENADRYL) injection 12.5 mg 12.5 mg, intravenous, PRN, 1 dose, Starting on Klaudia 06/18/21 at 1552, Until Klaudia 06/18/21 at 2207, nausea, Routine, Recovery (only) fentaNYL citrate (PF) injection 25-50 mcg 25-50 mcg, intravenous, EVERY 5 MIN PRN, Starting on Klaudia 06/18/21 at 1552, Until Klaudia 06/18/21 at 2207, Pain, Routine, Recovery (only) HYDROmorphone (DILAUDID) tablet 2-4 mg 2-4 mg, oral, EVERY 30 MINUTES PRN, 2 doses, Starting on Klaudia 06/18/21 at 1552, Until Klaudia 06/18/21 at 2207, Pain, Routine, Recovery (only) HYDROmorphone (PF) (DILAUDID) 0.5 mg/0.5 mL syringe 0.25-0.5 mg 0.25-0.5 mg, intravenous, EVERY 10 MINUTES PRN, Starting on Klaudia 06/18/21 at 1552, Until Klaudia 06/18/21 at 2207, Pain, Routine, Recovery (only) lactated ringers (LR) infusion at 25 mL/hr, intravenous, CONTINUOUS, Starting on Klaudia 06/18/21 at 1230, Until Klaudia 06/18/21 at 2207, Routine, Preprocedure New Bag 06/18/2021 14:17 EST lactated ringers (LR) infusion at 75 mL/hr, intravenous, PACU CONTINUOUS, Starting on Klaudia 06/18/21 at 1615, Until Klaudia 06/18/21 at 2207, Routine, Recovery (only) Rate Documented 06/18/2021 16:08 EST 75 mL/hr naloxone (NARCAN) injection 0.2 mg 0.2 mg, intravenous, PRN, Starting on Klaudia 06/18/21 at 1552, Until Klaudia 06/18/21 at 2207, Opioid Reversal, Routine, Recovery (only) ondansetron (PF) (ZOFRAN) injection 4 mg 4 mg, intravenous, PRN, 1 dose, Starting on Klaudia 06/18/21 at 1552, Until Klaudia 06/18/21 at 2207, Nausea, Vomiting, Routine, Recovery (only) povidone-iodine (BETADINE) 10 % external solution PRN, Starting on Klaudia 2/08/04 at 1444, Until Klaudia 2 at 1600, Intraprocedure Given 06/18/2021 14:44 EST 60 mL sodium chloride 0.9 % irrigation PRN, Starting on Klaudia 2 at 1443, Until Klaudia 2 at 1600, Routine, Intraprocedure Given 06/18/2021 14:43 EST 1,000 mL sodium chloride 0.9 % irrigation PRN, Starting on Klaudia 2 at 1443, Until Klaudia 2 at 1600, Routine, Intraprocedure Given 06/18/2021 14:43 EST 1,000 mL documented in this encounter Active and Recently Administered Medications Times are shown in EST. Scheduled Medication Order 06/16/2021 06/17/2021 06/18/2021 ceFAZolin (ANCEF) syringe 2 g (COMPLETED) 2 g, intravenous, Administer over 5 Minutes, PRE-OP ONCE, 1 dose, On Klaudia 06/18/21 at 1400, Routine 1435 (Given - Provid er: Lay Patrick CRNA) ketOROLAC (TORADOL) injection 15 mg 15 mg, intravenous, NOW X1, 1 dose, On Klaudia 06/18/21 at 1615, Routine, Recovery (only) 1718 (Not Given - Pr ovider: Briseyda Gilliam RN - Reason: Other - Comment: no NSAIDS per surgeon) Continuous Medication Order 06/16/2021 06/17/2021 06/18/2021 lactated ringers (LR) infusion at 25 mL/hr, intravenous, CONTINUOUS, Starting on Klaudia 2 at 1230, Until Klaudia 2/3 at 2207, Routine, Preprocedure 1417 (New Bag - Prov ider: Lay Patrick CRNA)1605 (Anesthesia Volume Adjustment - Provider: Lay Patrick CRNA) lactated ringers (LR) infusion at 75 mL/hr, intravenous, PACU CONTINUOUS, Starting on Klaudia 2/3 at 1615, Until Klaudia 06/18/21 at 2207, Routine, Recovery (only) 1608 (Rate Documente d - Provider: Briseyda Gilliam RN) PRN Medication Order 06/16/2021 06/17/2021 06/18/2021 acetaminophen (TYLENOL) tablet 1,000 mg 1,000 mg, oral, PRN, 1 dose, Starting on Klaudia 06/18/21 at 2040, Until Klaudia 06/18/21 at 2207, Pain, Routine, Recovery (only) atropine 0.1 mg/mL syringe 0.5 mg 0.5 mg, intravenous, PRN, Starting on Kluadia 06/18/21 at 1552, Until Klaudia 06/18/21 at 2207, Symptomatic HR < 50, Routine, Recovery (only) bupivacaine-EPINEPHrine (PF) 0.5 %-1:200,000 injection (CANCELED) PRN, Starting on Klaudia 06/18/21 at 1529, Until Klaudia 06/18/21 at 1600, Routine, Intraprocedure 1529 (Given - Provid er: Juanito Carcamo MD FACS)1533 (Given - Provider: Juanito Carcamo MD FACS) diphenhydrAMINE (BENADRYL) injection 12.5 mg 12.5 mg, intravenous, PRN, 1 dose, Starting on Klaudia 06/18/21 at 1552, Until Klaudia 06/18/21 at 2207, nausea, Routine, Recovery (only) fentaNYL citrate (PF) injection 25-50 mcg 25-50 mcg, intravenous, EVERY 5 MIN PRN, Starting on Klaudia 06/18/21 at 1552, Until Klaudia 06/18/21 at 2207, Pain, Routine, Recovery (only) HYDROmorphone (DILAUDID) tablet 2-4 mg 2-4 mg, oral, EVERY 30 MINUTES PRN, 2 doses, Starting on Klaudia 06/18/21 at 1552, Until Klaudia 06/18/21 at 2207, Pain, Routine, Recovery (only) HYDROmorphone (PF) (DILAUDID) 0.5 mg/0.5 mL syringe 0.25-0.5 mg 0.25-0.5 mg, intravenous, EVERY 10 MINUTES PRN, Starting on Klaudia 06/18/21 at 1552, Until Klaudia 06/18/21 at 2207, Pain, Routine, Recovery (only) naloxone (NARCAN) injection 0.2 mg 0.2 mg, intravenous, PRN, Starting on Klaudia 2 at 1552, Until Klaudia 2 at 2207, Opioid Reversal, Routine, Recovery (only) ondansetron (PF) (ZOFRAN) injection 4 mg 4 mg, intravenous, PRN, 1 dose, Starting on Klaudia 06/18/21 at 1552, Until Klaudia 06/18/21 at 2207, Nausea, Vomiting, Routine, Recovery (only) povidone-iodine (BETADINE) 10 % external solution (CANCELED) PRN, Starting on Klaudia 06/18/21 at 1444, Until Klaudia 2 at 1600, Intraprocedure 1444 (Given - Provid er: Juanito Carcamo MD FACS - Comment: Used to prep skin before insertion of tissue irrigation system installer) sodium chloride 0.9 % irrigation (CANCELED) PRN, Starting on Klaudia 06/18/21 at 1443, Until Klaudia 06/18/21 at 1600, Routine, Intraprocedure 1443 (Given - Provid er: Juanito Carcamo MD FACS - Comment: 1g Ancef, 100mg Gentamicin added for irrigation) sodium chloride 0.9 % irrigation (CANCELED) PRN, Starting on Klaudia 06/18/21 at 1443, Until Klaudia 06/18/21 at 1600, Routine, Intraprocedure 1443 (Given - Provid er: Juanito Carcamo MD FACS - Comment: 1g Ancef, 100mg Gentamicin, 60mL betadine paint added for irrigation) documented in this encounter Orders Medications Ordered That Juanito ht Not Have Been Administered Count Last Ordered Date First Ordered Date acetaminophen (TYLENOL) tablet 1,000 mg 1 0 06/18/2021 atropine 0.1 mg/mL syringe 0.5 mg 1 022 ceFAZolin (ANCEF) syringe 2 g 1 06/18/2021 diphenhydrAMINE (BENADRYL) i njection 12.5 mg 1 06/18/2021 fentaNYL citrate (PF) injection 25-50 mcg 1 06/18/2021 HYDROmorphone (DILAUDID) tablet 2-4 mg 1 HYDROmorphone (PF) (DILAUDID ) 0.5 mg/0.5 mL syringe 0.25-0.5 mg 1 06/18/2021 ketOROLAC (TORADOL) injection 15 mg 1 06/18 lactated ringers (LR) infusion 1 06/18/2021 lidocaine (PF) 10 mg/mL (1 % ) injection 2 mg 1 06/18/2021 naloxone (NARCAN) injection 0.2 mg 1 2021 ondansetron (PF) (ZOFRAN) injection 4 mg 1 06/18/2021 Diet Count Last Ordered Date First Orde red Date DISCHARGE DIET 1 06/18/2021 Nursing Count Last Ordered Date First Orde red Date ACTIVITY INSTRUCTIONS 1 06/18/2021 BATHING INSTRUCTIONS 1 06/18/2021 WOUND CARE INSTRUCTIONS 1 06/18/2021 Discharge Count Last Ordered Date First Orde red Date DISCHARGE PATIENT 1 06/18/2021 documented in this encounter Care Teams President Relationship Specialty Start Date End Date Batsheva Lira FNP [address] [phone] PCP - General 02/19/20 07/21/22 documented as of this encounter
--- OUTSIDE RECORDS SUMMARY | 2023-12-10 17:40 | XMS_ITS | Encounter Summary ---
Author Organization [facility] Address [address] [place] [address] Care Team Providers Care Water Pump Assembler Name Role Phone Batsheva Lira JOHN Primary Care Provider [phone] Encounter Details Date Type Department Care Team (Late st Contact Info) Description 05/20/2021 Documentation Visit [facility] [address] [place] [address] Oksana Pereyra, PT [address] [place] [address] Social History Tobacco Use Types Packs/Day Years [...] of this encounter Progress Notes * Oksana Pereyra, PT - 05/20/2021 [address] [address] Physical Therapy Contact Note Austin did not show for her appointment this morning. Per phone conversation patient stated she had been busy all morning due to her daughter being diagnosed with COVID and her trying to schedule a COVID test for herself. She reported both she and her daughter were feeling well. Austin had questions about whether she should attend her appointment next Tuesday. She will let us know or we will call todetermine the results of her COVID test and any symptoms on Tuesday. Oksana Pereyra, PT 05/20/2021 12:18 documented in this encounter Plan of Treatment Upcoming Encounters Date Type Department Care Team (Late st Contact Info) Description 01/31/2024 13:40 EDT Office Visit [facility] Surgical Oncology - [address] [id number] Maeve Morales, DO [address] [facility], [facility], [address] [place] [phone] documented as of this encounter Visit Diagnoses Not on filedocumented in this encounter Care Teams Water Pump Assembler Relationship Specialty Start Date End Date Batsheva Lira FNP [address] [phone] PCP - General 02/19/20 07/21/22 documented as of this encounter
--- OUTSIDE RECORDS SUMMARY | 2023-12-10 17:40 | XMS_ITS | Encounter Summary ---
Author Organization [facility] Address [address] [place] [address] Care Team Providers Care Furrier Shop Supervisor Name Role Phone Batsheva Lira JOHN Primary Care Provider [phone] Reason for Visit * Reason Onset Date Comments Surgery Scheduling 06/12/2021 Encounter Details Date Type Department Care Team (Late st Contact Info) Description 06/12/2021 Telephone [facility] Plastic, Reconstructive & Cosmetic Surgery - [address], [address] [place] [address] Melissa Sheldon RN Surgery Scheduling Social History Tobacco Use Types Packs/Day Years [...] encounter Miscellaneous Notes * Telephone Encounter - Melissa Sheldon RN - 06/12/2021 1604 EST Call placed to patient and notified her that surgery is scheduled for 1245 on Tuesday morning and toarrive at registration at 1045. The patient indicates understanding of these issues and agrees withthe plan. MELISSA SHELDON RN 06/12/2021 16:15 documented in this encounter Plan of Treatment Upcoming Encounters Date Type Department Care Team (Late st Contact Info) Description 01/31/2024 13:40 EDT Office Visit [facility] Surgical Oncology - [address] [address] Maeve Morales, DO [address] [facility], [address] [place] [address] documented as of this encounter Visit Diagnoses Not on filedocumented in this encounter Care Teams Furrier Shop Supervisor Relationship Specialty Start Date End Date Batsheva Lira FNP [address] [phone] PCP - General 02/19/20 07/21/22 documented as of this encounter
--- OUTSIDE RECORDS SUMMARY | 2023-12-10 17:40 | XMS_ITS | Encounter Summary ---
Author Organization [facility] Address [address] [place] [address] Care Team Providers Care Mail Officer Name Role Phone Batsheva Lira JOHN Primary Care Provider [phone] Reason for Referral * Specialty Diagnoses / Procedures [facility] Referred To Contact Oksana Wilkins PA-C [address] [place] [phone] Referral ID Status Reason Start Date Expiration Date Visits Re quested Visits Authorized Comments Please see Dr. Carcamo in 7-10 days or as scheduled. Call [phone] for questions or concerns. 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, estrogen receptor negative, unspecified laterality (HCC-CMS) Procedures MT REMOVAL TISSUE SOFT CRAB SHEDDER W/O INSERTION IMPLANT MT TISSUE SOFT CRAB SHEDDER PLACEMENT BREAST RECONSTRUCTION right breast tissue chin strap cutter replacement RECONSTRUCTION, BREAST, WITH TISSUE SOFT CRAB SHEDDER Referral ID Status Reason Start Date Expiration Date Visits Re quested Visits Authorized [id number] 1 1 Encounter Details Date Type Department Care Team (Latest Contact Info) Description 06/18/2021 11:28 EST - 06/18/2021 17:25 EST Hospital Encounter [facility] [address] [place] [address] Juanito Carcamo MD [address] [place] [address] Discharge Disposition: Home or Self [...] Sign Reading Time Taken Comments Blood Pressure 115/65 06/18/2021 1715 EST Pulse - - Temperature 36.6 ??C (97.9 ??F) 06/18/2021 1715 EST Respiratory Rate 17 06/18/2021 1715 EST Oxygen Saturation 98% 06/18/2021 1715 EST Inhaled Oxygen Concentration - - Weight [...] Code Departure Means Destination Home or Self Retirement documented in this encounter H&P Notes * [...] returns in follow up from bilateral tissue chin strap cutter reconstruction with allograft of breasts after mastectomy [...] a developing fetus ?? It is a [facility] Policy to test all females who are having menstrual periods ?? It is for their safety and that of a developing fetus should they be ?? The Patient does have the right to decline and understands the risks of not obtaining the test Anesthesiologist Dr. Petty wa notified. * Long Ball RN - 06/18/2021 7857 EST Preop Covid DOS screening questionnaire Please [...] 1725 EST Operative Note Date: 06/18/2021 Location: [facility] OR Name: Austin Squires, : 1975, PREOPERATIVE DIAGNOSIS: (1) Deflated right prepectoral chin strap cutter POSTOPERATIVE DIAGNOSIS: (1) Deflated right prepectoral chin strap cutter PROCEDURE : 1.Right Prepectoral Tissue Copy Preparer exchange after chin strap cutter deflation. SURGEON: Juanito Carcamo MD FACS - Primary Oksana Wilkins PA-C - Assisting Montserrat Rogel DO - Resident - Assisting Physician Child And Adolescent Therapist Attestation: Ms. Wilkins was a necessary and integral participant in the case and present for the entirety of the case. She served to provide aid in exposure, hemostasis, closure and other intraoperative technical functions that helped me carry out a safe operation with optimal results for the patient. As there is no plastic surgery training program at the [facility], no qualified resident was available to assist. ANESTHESIA: General endotracheal INDICATIONS: Please see office dictation. Briefly, Austin Squires is a 45 y.o. female who is s/p skin sparing mastectomy and chin strap cutter and allograft based breast reconstruction bilaterally. 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 Risks and benefits of chin strap cutter exchange were thoroughly discussed with the patient [...] sampled and sent for culture. The ruptured chin strap cutter was removed. A seam was seen to [...] tab was then secured. The 750 cc [place] Artoura chin strap cutter was then accessed and filled using a [...] Note - Oksana Wilkins PA-C - 06/18/2021 7029 EST Brief Op Note Date of Surgery: 06/18/2021 Surgeon: Juanito Carcamo MD Assistants: Oksana Wilkins PA-C Pre-Op Diagnosis: Hx of Breast Cancer Post-Op Diagnosis: Hx of Breast Cancer Procedure(s): 1. 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, estrogen receptor negative, unspecified laterality (HCC-CMS) (HCC) (HCC-CMS) Special Needs SDC- 150H x2 REMOVAL, TISSUE SOFT CRAB SHEDDER(S) 06/18/2021 14:01 EST 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, estrogen receptor negative, unspecified laterality (HCC-CMS) (HCC) (HCC-CMS) Special Needs SDC- 150H x2 documented in this encounter Results * IMPLANT RECORD - SCANNED (06/24/2021 11:47 EST) 06/24/2021 11:4 7 EST Scan 2 Manager Treasury PROCEDURE/MINOR KHURRAM GICAL ORDERABLES * IMPLANT RECORD - SCANNED (06/22/2021 11:01 EST) 06/22/2021 11:0 1 EST Scan 2 Manager Treasury PROCEDURE/MINOR KHURRAM GICAL ORDERABLES * SURGICAL PATHOLOGY (06/18/2021 15:01 EST) Note to Patient The following pathology results have been interpreted by your pathologist and may be available to you before your health provider has had the opportunity to review them. Please allow time for your provider to receive these results and explore management options, if applicable. 06/23/2021 10:21 [facility] Final Diagnosis A. SKIN, RIGHT MASTECTOMY SCAR, EXCISION: - Benign skin and subcutaneous tissue with scar. 06/23/2021 10:21 [facility] Attestation There was significant resident/fellow involvement in the diagnostic evaluation of this case. By the signature below, the attending physician certifies that they have personally conducted a gross and/or microscopic examination of the described specimens and rendered or confirmed the above diagnosis. 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 Received [...] of fat necrosis but without gross lesions. Operations Chief sections are submitted in A1. SOCORRO BOWENS(ASC) 06/19/2021 8:58 06/23/2021 10:21 [facility] Resident/Chris w: Ang [place] MD 06/23/2021 10:21 [facility] Performing Lab [facility] 06/23/2021 10:21 [facility] Scanned Images 06/23/2021 10:21 [facility] Tissue TISSUE SPECIMEN FROM SKIN / Unknown 06/18/2021 15:01 EST 06/18/2021 16:38 EST Juanito Carcamo MD FACS PATHOLOGY OR DERABLES [facility] [address] [place] [address] * AFB CULTURE/SMEAR, OTHER (06/18/2021 15:01 EST) Organism ID No acid-fast bacilli isolated VITEK SUSCEPTIBILITY 08/14/2021 9:40 [facility] AFB Smear No Acid Fast Bacilli Seen 08/14/2021 9:40 [facility] Fluid ENTIRE RIGHT BREAST / Unknown 06/18/2021 15:01 EST 06/18/2021 15:29 EST Juanito Carcamo MD FACS MICROBIOLOGY - GENERAL ORDERABLES Performing Organization Address [facility] Co de Phone Number [facility] [address] [place] [address] * (ABNORMAL) ANAEROBE CULTURE/SMEAR(INC. AEROBES), OTHER (06/18/2021 15:01 EST) Organism ID No Growth 06/23/2021 10:34 EST [facility] Smear Neutrophils Present(A) 06/23/2021 10:34 EST [facility] Smear No bacteria seen(A) 06/23/2021 10:34 EST [facility] Fluid ENTIRE RIGHT BREAST / Unknown 06/18/2021 15:01 EST 06/18/2021 15:29 EST Juanito Carcamo MD FACS MICROBIOLOGY - GENERAL ORDERABLES Performing Organization Address City/[facility]/ZIP Co de Phone Number [facility] [address] [place] [address] * FUNGUS CULTURE/SMEAR (06/18/2021 15:01 EST) Organism ID No fungi isolated 07/16/2021 10:59 EST [facility] Fungal Smear No Fungi Seen 07/16/2021 10:59 EST [facility] Fluid ENTIRE RIGHT BREAST / Unknown 06/18/2021 15:01 EST 06/18/2021 15:29 EST Juanito Carcamo MD FACS MICROBIOLOGY - GENERAL ORDERABLES Performing Organization Address City/[facility] Co de Phone Number [facility] [address] [place] [address] documented in this encounter Visit Diagnoses Not [...] at 2207, Nausea, Vomiting, Routine, Recovery (only) documented in this encounter Active and Recently [...] Until Klaudia 06/18/21 at 2207, Routine, Preprocedure 1417 (New Bag - Prov ider: Lay Patrick CRNA)1605 (Anesthesia Volume Adjustment - Provider: Lay Patrick CRNA) lactated ringers (LR) infusion at 75 mL/hr, intravenous, PACU CONTINUOUS, Starting on Klaudia 2 at 1615, Until Klaudia 06/18/21 at 2207, [...] external solution (CANCELED) PRN, Starting on Klaudia 2 at 1444, Until Klaudia 2 at 1600, Intraprocedure 1444 (Given - Provid er: Juanito Carcamo MD FACS - Comment: Used to prep skin before insertion of tissue chin strap cutter) sodium chloride 0.9 % irrigation (CANCELED) PRN, Starting on Klaudia 2 at 1443, Until Klaudia 2 at 1600, Routine, Intraprocedure 1443 (Given - Provid er: Juanito Carcamo MD FACS - Comment: 1g Ancef, 100mg Gentamicin added for irrigation) sodium chloride 0.9 % irrigation (CANCELED) PRN, Starting on Klaudia 2 at 1443, Until Klaudia 2 at 1600, Routine, Intraprocedure 1443 (Given - [...] 022 bupivacaine-EPINEPHrine (PF) 0.5 %-1:200,000 injection 1 06/18/2021 ceFAZolin (ANCEF) syringe 2 g 1 06/18/2021 [...] (PF) (ZOFRAN) injection 4 mg 1 06/18/2021 povidone-iodine (BETADINE) 1 0 % external solution 1 06/18/2021 sodium chloride 0.9 % irrigation 2 06/18/19 22 Diet Count Last Ordered Date First Orde red Date DISCHARGE DIET 1 06/18/2021 Nursing Count Last Ordered Date First Orde red Date ACTIVITY INSTRUCTIONS 1 06/18/2021 BATHING INSTRUCTIONS 1 06/18/2021 WOUND CARE INSTRUCTIONS 1 06/18/2021 Discharge Count Last Ordered Date First Orde red Date DISCHARGE PATIENT 1 06/18/2021 documented in this encounter Care Teams Mail Officer Relationship Specialty Start Date End Date Batsheva Lira FNP [address] [phone] PCP - General 02/19/20 07/21/22 documented as of this encounter
--- OUTSIDE RECORDS SUMMARY | 2023-12-10 17:40 | XMS_ITS | Encounter Summary ---
Author Organization [facility] Address [address] [place] [address] Care Team Providers Care Test Fixture Designer Name Role Phone Batsheva Lira JOHN Primary Care Provider [phone] Encounter Details Date Type Department Care Team (Latest Contact Info) Description 06/16/2021 10:20 EST Phlebotomy Only [facility] [address] [place] [address] Malignant neoplasm of upper-inner quadrant of breast [...] [facility] Surgical Oncology - [address] [address] Maeve Morales, DO [address] [place] [address], [address] [place] [address] documented as of this encounter Procedures Procedure Name Priority Date/Time Associated Diagnosis Comments ZZCOVID-19 TEST [facility] PCR Today 06/16/2021 9:54 EST 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, estrogen receptor negative, unspecified laterality (HCC-CMS) (HCC) (HCC-CMS) COVID-19 TESTING Routine 06/16/2021 9:54 EST 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, estrogen receptor negative, unspecified laterality (HCC-CMS) (HCC) (HCC-CMS) documented in this encounter Results * COVID-19 TEST [facility] PCR (06/16/2021 9:54 EST) Swab BOTH ANTERIOR NARES / Unknown Swab / Unknown 06/16/2021 9:54 EST 06/16/2021 9:54 EST Juanito Carcamo MD FACS MICROBIOLOGY - GENERAL ORDERABLES [facility] [address] [place] [address] * COVID-19 TESTING (06/16/2021 9:54 EST) COVID-19 rt-PCR Result Negative Negative 06/16/2021 16:31 EST [facility] Comment: This test has not [...] performed using the gabriele SARS-CoV-2 assay ([employer] on the Gabriele 6800 System Performing Lab Gab[place]le 6800 [facility] 06/16/2021 16:31 EST [facility] Swab BOTH ANTERIOR NARES / Unknown Swab / Unknown 06/16/2021 9:54 EST 06/16/2021 9:54 EST Juanito Carcamo MD FACS MICROBIOLOGY - GENERAL ORDERABLES [facility] [address] [place] [address] documented in this encounter Visit Diagnoses Diagnosis 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
--- OUTSIDE RECORDS SUMMARY | 2023-12-10 17:40 | XMS_ITS | Encounter Summary ---
Author Organization [facility] Address [address] [place] [address] Care Team Providers Care Process Safety Manager Name Role Phone Batsheva Lira JOHN Primary Care Provider [phone] Reason for Visit * Reason Onset Date Comments COVID-19 06/05/2021 Encounter Details Date Type Department Care Team (Late st Contact Info) Description 06/05/2021 Orders Only [facility] Plastic, Reconstructive & Cosmetic Surgery - [address], [address] [place] [address] Juanito Carcamo MD [address] [place] [phone] Malignant neoplasm of upper-inner quadrant of [...] 01/31/2024 13:40 EDT Office Visit [facility] Surgical Oncology - [address] [phone] Maeve Morales, [address], [address] [place] [phone] documented as of this encounter Results * COVID-19 TESTING (06/12/2021 9:37 EST) COVID-19 rt-PCR Result Negative Negative 06/12/2021 18:22 EST [facility] Comment: This test has [...] was performed using the gabriele SARS-CoV-2 assay ([employer] on the Gabriele 6800 System Performing Lab [place] 68[address] [facility] 06/12/2021 18:22 EST [facility] Swab BOTH ANTERIOR NARES / Unknown Swab / Unknown 06/12/2021 9:37 EST 06/12/2021 9:37 EST Juanito Carcamo MD FACS MICROBIOLOGY - GENERAL ORDERABLES [facility] [address] [place] [address] documented in this encounter Visit Diagnoses Diagnosis 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
--- OUTSIDE RECORDS SUMMARY | 2023-12-10 17:40 | XMS_ITS | Encounter Summary ---
Author Organization [facility] Address [address] [place] [address] Care Team Providers Care Regulatory Affairs Spec Name Role Phone Batsheva Lira JOHN Primary Care Provider [phone] Reason for Visit * Reason Comments Follow-up Encounter Details Date Type Department Care Team (Late st Contact Info) Description 06/23/2021 10:00 EST Office Visit [facility] Hematology & Oncology - [address] [address] Liat Honeycutt, PA-C [address] [place] [address], [address] [place] [address] Malignant 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, estrogen receptor negative (HCC-CMS) (HCC) (HCC-CMS) (Primary Dx); Hot flashes; Insomnia, unspecified type Social History Tobacco Use Types Packs/Day Years [...] Sign Reading Time Taken Comments Blood Pressure 118/80 06/23/2021 0949 EST Pulse 100 06/23/2021 0949 EST Temperature 36.9 ??C (98.4 ??F) 06/23/2021 0949 EST Respiratory Rate 16 06/23/2021 0949 EST Oxygen Saturation 98% 06/23/2021 0949 EST Inhaled Oxygen Concentration - - Weight 76.5 kg (168 lb 9.6 oz) 06/23/[address] Height - - Body Mass Index 28.06 06/18/2021 1211 EST documented in this encounter [...] may increase to 2 caps if tolerated. 30 capsule 1 06/23/2021 08/03/2021 documented in this encounter Progress Notes * Liat Honeycutt PA-C - 06/23/2021 1000 EST Austin Squires is a 45 y.o.yo female presenting in clinic today for assessment prior to ongoing capecitabine therapy, given adjuvantly for triple negative breast cancer Chief Complaint Patient presents with ??? Follow-up HISTORY OF PRESENT ILLNESS: Austin's bookmaker's clerk noticed a mass in 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?She then underwent imaging and a biopsy on 07/09/20??of a 2.1 cm mass revealed a nuclear grade 3 ER negative HI negative for B2 negative ductal carcinoma.??Staging evaluation did reveal a prominent L IM lymphnode but ot herwise negative. Given her triple negative histology??she began??starting taxol/carboplatinum, followed by AC, as part of the SIKOV regimen??on July 22, 2020.?Chemo was completed on 11/27/20. Genetic testing was negative(??a 9 gene panel performed through [facility] was performed ).?Bilateral mastectomies??performed on 12/24/20 revealed 2.5 cm of a poorly differentiated ductal carcinoma. ??All margins were negative. ??0/3 nodes were positive.?Contralateral breast was benign.?PD-L1 testing appears to be negative. ??Her case was discussed at tumor board and she was felt to be agood candidate for adjuvant capecitabine. She started this therapy in late Jan 2021, 2000 mg twicedaily, two weeks on, one week off, with 8 cycles total planned. ?? SUBJECTIVE: Austin returns for follow-up, currently taking capecitabine adjuvantly after neoadjuvantchemotherapy for triple negative breast cancer. She is in the middle of her current cycle. She plans to get labs next week. Overall she feels she is tolerating treatment reasonably well, with some skin changes of her hands and heels, on which she continues to use moisturizers vigilantly. No fissuring or significant pain. She does feel queasy occasionally, and feels her appetite is lower on capecitabine. She has seen a few pounds of weight loss, and is pleased by this. She has known fatty liver and weight loss is recommended. Persistent fatigue, which is not worse but she does not feel it is much better. Peripheral neuropathy has overall improved. Today she remarks upon worsening insomnia, for which she has tried melatonin and some idlh-lhu-maffvhm options. She is also having some occasional hot flashes, and we discussed a trial of gabapentin at bedtime. She will be seeing primary care sometime in the next month or so and will talk about her insomnia at that time. REVIEW OF SYSTEMS: I went through verbal review of symptoms with the patient. Symptoms as discussedabove. She denies diarrhea. No new or worsening pain anywhere. She has been doing physical therapy to address shoulder pain after a fall, and her range of motion is much improved, with diminished pain as well. She is hoping to move ahead to [facility] in the near future. No significant coughor dyspnea. Remainder system review is without acute complaints. Past medical, surgical, family and social history reviewed and updated. - Lives in [place]. Has young daughter (age 9 or 10) and two adult children (early 20s, boy and girl). Single. Objective: BP 118/80 Pulse 100 Temp 36.9 ??C (98.4 ??F) (Skin) Resp 16 Wt 76.5 kg (168 lb 9.6 oz) SpO2 98% BMI 28.06 kg/m?? General appearance: alert, no distress Head: [...] turgor normal. No rashes or lesions LABORATORY: Patient will have labs drawn next week. Her most recent labs from 06/12/2021 include metabolic panel with glucose of 205, ALT slightly up at 56, and alkaline phosphatase 263. Hemogram alsofrom 06/12/2021 was essentially within normal limits. ASSESSMENT: Breast cancer, triple negative, with diagnosis and therapy as documented above. Patienthad residual tumor of 2.5 cm, and negative lymph nodes. She is receiving adjuvant capecitabine, tolerating it with some of the expected side effects, but nothing severe at this time. She is prepared to continue on to 8 cycles as planned, and discussed with Dr. Conde. We had a general discussion today about how surveillance will go after the patient has completed capecitabine, namely alternating visits every 3 months with this department and surgical oncology, without routine imaging or lab work unless new symptoms prompt such evaluations. PLAN: 1. Austin will complete what I believe is cycle 5, and repeat her labs next week prior to cycle 6. No dose adjustments at this time. 2. Trial gabapentin to address insomnia and hot flashes. 3. Next visit (postop) with Dr. 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 4. Follow-up with Dr. Morales in late July 2021. 5. Next visit with Dr. Pam Germain also in late July 2021. Patient is well aware to follow-up sooner than her scheduled visit with any acute concerns or questions. I was directly supervised by Ciara Gordon MD , who was in the suite and immediately available for the entire time the above documented service was provided. I spent a total of 30 minutes on the date of this encounter meeting with the patient and reviewing documentation/coordinating care as described in the above note. No procedures were performed at the time of the visit. Liat Honeycutt PA-C 06/23/2021 17:35 documented in this encounter Plan of Treatment Upcoming Encounters Date Type Department Care Team (Late st Contact Info) Description 01/31/2024 13:40 EDT Office Visit [facility] Surgical Oncology - [address] [id number] Maeve Morales DO [address] [facility], [address] [place] [phone] documented as of this encounter Visit Diagnoses Diagnosis Malignant 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, estrogen receptor negative (HCC-CMS)- Primary Hot flashes Symptomatic menopausal or female climacteric states Insomnia, unspecified type documented in this encounter Discontinued Medications Medication Sig Discontinue Reason Start Date End Da te HYDROmorphone (DILAUDID) 2 mg tablet Take 1-2 Tablets by mouth every 4 hours as needed for Pain. Daily Max: 24 mg 06/18/2021 06/23/2021 cephalexin (KEFLEX) 500 mg capsule Take 1 capsule by mouth every 6 hours for 5 days. 06/18/2021 06/23/2021 documented as of this encounter Care Teams Regulatory Affairs Spec Relationship Specialty Start Date End Date Batsheva Lira FNP [address] [phone] PCP - General 02/19/20 07/21/22 documented as of this encounter
--- OUTSIDE RECORDS SUMMARY | 2023-12-10 17:40 | XMS_ITS | Encounter Summary ---
Author Organization [facility] Address [address] [place] [address] Care Team Providers Care Retoucher Name Role Phone Batsheva Lira JOHN Primary Care Provider [phone] Reason for Visit * Reason Onset Date Comments Other 04/01/2021 Encounter Details Date Type Department Care Team (Late st Contact Info) Description 04/01/2021 Telephone [facility] Hematology & Oncology - [facility] [address] [place], [place] [id number] Vivian Lackey CCLS Other Social History Tobacco Use Types Packs/Day [...] encounter Miscellaneous Notes * Telephone Encounter - Vivian Lackey CCLS - 04/01/2021 1204 EST CCLS called Austin to follow up about her daughter Lan, as well as to share that she had been nominated to be part of the [employer]. Austin shared that she believes Lan has been copingwell, but still has some emotional moments. Austin inquired about what behaviors to look out for that might infer that Lan needs additional support. CCLS validated concern and shared that emotional moments can be normal for most kids, however if Lan exhibits changes in school attendance/grades, shows that she is no longer interested in attending gymnastics, or hanging out with friends, etc., she might want to seek additional help. CCLS offered to meet with Lan again to assess coping if Austin feels it is appropriate. CCLS also discussed nomination of [employer]. Austin accepted nomination and will accept anytype of gift card. Child life team will mail gift card selections to Austin prior to [place]. JORDAN Melendez Supervisor [employer] documented in this encounter Plan of Treatment Upcoming Encounters Date Type Department Care Team (Late st Contact Info) Description 01/31/2024 13:40 EDT Office Visit [facility] [place] [address] Maeve Morales, DO [address] [facility], [address] [place] [address] documented as of this encounter Visit Diagnoses Not on filedocumented in this encounter Care Teams Retoucher Relationship Specialty Start Date End Date Batsheva Lira FNP [address] [phone] PCP - General 02/19/20 07/21/22 documented as of this encounter
--- OUTSIDE RECORDS SUMMARY | 2023-12-10 17:40 | XMS_ITS | Encounter Summary ---
Author Organization [facility] Address [address] [place] [address] Care Team Providers Care Greek Professor Name Role Phone Batsheva Lira JOHN Primary Care Provider [phone] Reason for Visit * Reason Comments Tissue Buckle And Button Maker Fill bilateral Encounter Details Date Type Department Care Team (Late st Contact Info) Description 04/28/2021 9:45 EST Office Visit [facility] Plastic, Reconstructive & Cosmetic Surgery - [address], [address] [place] [address] Juaniot Carcamo MD [address] [place] [address] Surgery follow-up (Primary Dx) Social [...] Progress Notes * Katia Degroot RN - 04/28/2021 0945 EST Examination chaperoned by KATIA WILCOX RN. * Juanito Carcamo MD FACS - 04/28/2021 0945 EST Austin is here for fill of her bilateral tissue expanders. After verbal informed consent was obtained the port was located magnetically and marked. A chloraprep was used for sterilization. Using standard sterile technique and a closed system the port was accessed and the culture room worker filled with 75 cc of injectable saline bilaterally. The patient tolerated the procedure well. Access sites were dressed with spot bandaids to be removed tomorrow. Totals were recorded on the flow sheet. She now has fills of 650 cc's bilaterally. Signs and symptoms of infection were discussed. She will follow up in 2-3weeks. documented in this encounter Plan of Treatment Upcoming Encounters Date Type Department Care Team (Late st Contact Info) Description 01/31/2024 13:40 EDT Office Visit [facility] Surgical Oncology - [address] [address] Maeve Morales, DO [address] [facility], [facility], Level [address] [place] [phone] documented as of this encounter Visit Diagnoses Diagnosis Surgery follow-up- Primary Follow-up examination, following unspecified surgery documented in this encounter Care Teams Greek Professor Relationship Specialty Start Date End Date Batsheva Lira FNP [address] [phone] PCP - General 02/19/20 07/21/22 documented as of this encounter
--- OUTSIDE RECORDS SUMMARY | 2023-12-10 17:40 | XMS_ITS | Encounter Summary ---
Author Organization [facility] Address [address] [place] [address] Care Team Providers Care Compressor Mechanic Bus Name Role Phone Batsheva Lira JOHN Primary Care Provider [phone] Reason for Visit * Reason Comments Tissue Light Rail Operator Fill bilateral Encounter Details Date Type Department Care Team (Late st Contact Info) Description 05/19/2021 10:15 EST Office Visit [facility] Plastic, Reconstructive & Cosmetic Surgery - [address], [address] [place] [address] Oksana Wilkins PA-C [address] [facility] [address] [place] [address] Surgery follow-up (Primary Dx) Social [...] as of this encounter Progress Notes * Soham Patrick RN - 05/19/2021 1015 EST Office visit chaperoned by SOHAM PATRICK RN 05/19/2021 10:30 * Oksana Wilkins PA-C - 05/19/2021 1015 EST SUBJECTIVE: Austin Squires returns in follow up from bilateral tissue auto phone installer reconstruction with allograft of breasts after [...] PA-C 05/19/2021 10:41 documented in this encounter Plan of Treatment Upcoming Encounters Date Type Department Care Team (Late st Contact Info) Description 01/31/2024 13:40 EDT Office Visit [facility] Surgical Oncology - [address] [address] Maeve Morales, [address] [place] [address], [address] [place] [address] documented as of this encounter Visit Diagnoses Diagnosis Surgery follow-up- Primary Follow-up examination, following unspecified surgery documented in this encounter Care Teams Compressor Mechanic Bus Relationship Specialty Start Date End Date Batsheva Lira FNP [address] [phone] PCP - General 02/19/20 07/21/22 documented as of this encounter
--- OUTSIDE RECORDS SUMMARY | 2023-12-10 17:40 | XMS_ITS | Encounter Summary ---
Author Organization [facility] Address [address] [place] [address] Care Team Providers Care Guest History Clerk Name Role Phone Batsheva Lira JOHN Primary Care Provider [phone] Reason for Visit * Reason Onset Date Comments Follow-up 04/22/2021 Encounter Details Date Type Department Care Team (Late st Contact Info) Description 04/22/2021 Telephone [facility] Hematology & Oncology - [facility] [address] [place], [place] [address] Edinson Lorenzana, MEDICAL LAB DIRECTOR Follow-up Social History Tobacco Use Types Packs/Day [...] Telephone Encounter - Edinson Lorenzana LICSW - 04/22/2021 1143 EST JUDIT VICK Note: Reason for Call: I called Austin to check in and to see if there's any development with his disability case. She explained that [employer] called her. They're going to be setting her up to be seen by a counselor for an assessment. She's waiting for them to call and schedule the appointment. Pt Centered Identified Goal: Disability Plan: I offered my support as needed with disability. Edinson COON documented in this encounter Plan of Treatment Upcoming Encounters Date Type Department Care Team (Late st Contact Info) Description 01/31/2024 13:40 EDT Office Visit [facility] Surgical Oncology - [address] [address] Maeve Morales, [address] [facility], [address] [place] [phone] documented as of this encounter Visit Diagnoses Not on filedocumented in this encounter Care Teams Guest History Clerk Relationship Specialty Start Date End Date Batsheva Lira FNP [address] [phone] PCP - General 02/19/20 07/21/22 documented as of this encounter
--- OUTSIDE RECORDS SUMMARY | 2023-12-10 17:40 | XMS_ITS | Encounter Summary ---
Author Organization [facility] Address [address] [place] [address] Care Team Providers Care Roll Examiner Name Role Phone Batsheva Lira JOHN Primary Care Provider [phone] Encounter Details Date Type Department Care Team (Latest Contact Info) Description 06/09/2021 5:10 EST - 06/09/2021 23:59 EST Hospital Encounter [facility] Pre-Surgical Testing [address] [place], [place] [phone] Discharge Disposition: Home or Self Care Social [...] - - Weight 77.1 kg (170 lb) 06/09/2021 1604 EST Height 165.1 cm (5' 5) 06/09/2021 1604 EST Body Mass Index 28.29 06/09/2021 1604 EST documented in this encounter Functional Status [...] route. 01/11/2022 documented as of this encounter Discharge Disposition Disposition Code Departure Means Destination Home or Self Care documented in this encounter OR Notes * Preprocedure Instructions - Liza Kemp RN - 06/09/2021 0510 EST Austin S Shaw has been instructed as follows regarding medication administration for the day of the scheduled procedure. Date of Surgery: 06/15/21 Instructions for Taking Medications Day of Surgery Medication Sig Last Dose Hold DOS Take DOS amLODIPine (NORVASC) 2.5 mg tablet Take 2.5 mg by mouth daily. take capecitabine (XELODA) 500 mg tablet Take 4 Tablets by mouth 2 times daily. Take for 14 days, then stop for 7 days. escitalopram oxalate (LEXAPRO) 10 mg tablet Take 20 mg by mouth daily. take INTRAUTERINE DEVICE, IUD, INTRAUTERINE by intrauterine route. Pt has no questions on medication Instructions. documented in this encounter Miscellaneous Notes * PAT Note - Liza Kemp RN - 06/09/2021 0510 EST COVID 19 Screening Perioperative at time of PAT Please document by exception (only check those that apply). Have you had any of the following symptoms recently?deneis Yes Chronic ? Cough Shortness of breath or difficulty breathing Fever Chills Fatigue Muscle or body aches Severe Headache New loss of taste or smell Sore throat Congestion or runny nose Rash Nausea, vomiting, or diarrhea (rare in adults. More common in children) Please elaborate if yes: If a chronic symptom is reported use your judgement if an anesthesia review is needed. Have you been in close contact with someone who has been diagnosed with Covid 19?denies (close contact, within 6 feet of any person known to have Coronavirus in the past 14 days) Vaccination Status: __X_ Pt states fully vaccinated, __X_ Verified in chart ___ Pt states unvaccinated -Do not instruct patient regarding COVID testing, let [facility] coordinate this -Communicate status on yellow form for DOS If patient develops any of these symptoms between now and their surgery date instruct them to call us back at [phone] to report symptoms Visitor Policy: Surgical & Procedural -Adult: 1 designated support person -Pediatrics: 2 designated support people - Inpatients are now permitted 2 designated support people per stay, only 1 may visit per day. One person is permitted to remain overnight (must be masked). - Pediatric Inpatients may have 2 designated support people per stay, both may be present at the same time. - Inpatient Psychiatry patients may have 2 designated (vaccinated) support people per stay, only 1 may visit per day - One healthy support person may accompany patients to outpatient appointments. Two healthy parents/guardians are permitted for pediatric patients. As a reminder, all support people are will be required to wear a mask that covers their nose and mouth for the entire time they are in the building. Anyone who cannot or will not wear a mask will be asked to leave. documented in this encounter Plan of Treatment Upcoming Encounters Date Type Department Care Team (Late st Contact Info) Description 01/31/2024 13:40 EDT Office Visit [facility] Surgical Oncology - [address] [address] Maeve Morales, [address] [facility], [address] [place] [phone] documented as of this encounter Visit Diagnoses Not on filedocumented in this encounter Care Teams Roll Examiner Relationship Specialty Start Date End Date Batsheva Lira FNP [address] [phone] PCP - General 02/19/20 07/21/22 documented as of this encounter
--- OUTSIDE RECORDS SUMMARY | 2023-12-10 17:40 | XMS_ITS | Encounter Summary ---
Author Organization [facility] Address [address] [place] [address] Care Team Providers Care Drywall Hanger Name Role Phone Batsheva Lira JOHN Primary Care Provider [phone] Reason for Visit * Reason Comments Follow-up Encounter Details Date Type Department Care Team (Late st Contact Info) Description 05/05/2021 10:30 EST Office Visit [facility] Hematology & Oncology - Main [place] [address] [place] [address] [place] [address] [place] [phone] Malignant neoplasm of right breast in female, estrogen receptor negative, unspecified site of breast (HCC-CMS) (HCC) (HCC-CMS) (Primary Dx) [...] Sign Reading Time Taken Comments Blood Pressure 123/81 05/05/2021 1037 EST Pulse 93 05/05/2021 1037 EST Temperature 36 ??C (96.8 ??F) 05/05/2021 1037 EST Respiratory Rate 16 05/05/2021 1037 EST Oxygen Saturation 100% 05/05/2021 1037 EST Inhaled Oxygen Concentration - - Weight 78.9 kg (173 lb 14.4 oz) 05/05/2021 1037 EST Height - - Body Mass Index 28.15 03/26/2021 0854 EST documented in this encounter Functional Status [...] as of this encounter Progress Notes * Queenie Conde MD - 05/05/2021 1030 EST REASON FOR OFFICE VISIT Austin is a 45 y.o. 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 Genetic testing was negative( a 9 gene panel performed through [employer] was performed ). Bilateral mastectomies performed on December 24 revealed 2.5 cm of a poorly differentiated ductal carcinoma. ??All margins were negative. ??0/3 nodes were positive.?Contralateral breast was benign. PD-L1 testing appears to be negative. Her case was discussed at tumor board and she was felt to be a good candidate for adjuvant capecitabine. ?? SUBJECTIVE: Austin??is?? here by herself. He is tolerating her capecitabine. He has some mild fatigue and has occasional diarrhea. She also has mole anorexia when taking capecitabine. ??Her system review is otherwise without new??constitutional, cardiovascular, pulmonary, GI, ,DYE COLORIST FORMULATOR, musculoskeletal, psychiatric, neurologic, endocrine, or heme symptoms. ?? PAST MEDICAL HISTORY: 1.?Urinary incontinence 2.?Hypertension, well-controlled 3.?History of kidney stones,??none for the past 6 years 4.?Cholecystectomy in 2018 ?? MEDS Amlodipine,??capecitabine, Lexapro. ?? MENSTRUAL HISTORY:Austin is unclear when she began menstruating. ??She is G3, P3 with her first full-term at age 23. ??She is premenopausal. ??She did take oral contraceptives and recently had an IUD placed (Mirena IUD). ?? 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 ??She does smoke off and on about half a pack per day. ??She does not consume alcohol. ?? FAMILY HISTORY: Austin has 2 daughters and a son [...] his 90s. ??Her paternal relatives are of [place] descent. Objective: BP 123/81 Pulse 93 Temp 36 ??C (96.8 ??F) (Temporal) Resp 16 Wt 78.9 kg (173 lb 14.4 oz) SpO2 100% BMI 28.15 kg/m?? General: Comfortable, cooperative and in no apparent distress HEENT: Pupils are equal, round, reactive to light; Extraocular muscles are intact; Oromucosa is moist; no mucosal lesions are identified NECK: Neck is supple no thyromegaly no cervical or supraclavicular adenopathy NODES: negative LUNGS: Clear to auscultation and percussion bilaterally CARDIOVASCULAR: Regular, rate and rhythm; No murmurs, rubs or gallops ABDOMEN: Soft, non-tender, non distended, no hepatosplenomegaly appreciated EXTREMITIES: No clubbing, cyansis or edema; BREAST EXAM: Bilateral mastectomies with expanders in place. DIAGNOSTIC DATA Lab Results Component Value Date WBC 6.77 05/01/2021 HGB 14.2 05/01/2021 PLT 191 05/01/2021 CREATININE 0.45 (L) 05/01/2021 CALCCA 9.0 03/03/2021 CALCIUM 9.4 05/01/2021 ALT 55 (H) 05/01/2021 AST 45 05/01/2021 ASSESSMENT: Austin is??a 45-year old female with triple negative breast cancer (clinical T2N0). She completed neoadjuvant chemotherapy with 4 cycles of Taxol and carboplatinum?followed by 4 cycles of Adriamycin and Cytoxan.?Bilateral mastectomies revealed a residual 2.5 cm of poorly differentiated ductal carcinoma with no clear evidence of response. She has begun adjuvant chemotherapy with capecitabine per the CREATE X trial. ?? She is tolerating her therapy well actually at this point she is comfortable completing 8 cycles. We talked about having her see a provider every other cycles and she is comfortable with this. ?? Austin has had some elevation of her liver enzymes and been seen in GI. She is working on weight loss and her liver enzymes are improving. Austin has some issues with memory but is willing to forgo any referral to PT at this time. I discussed my upcomming departure from [facility]. Our plan is to complete 6-8 cycles of adjuvant capecitabine and then move to surveillance. Given this I think Austin Could be seen by an DAGMAR prior to cycle6 and then transfer to Dr. Germain in her fellows clinic proir to cycle 8. If Austin is continuing to smoke she would be eligible for Project Reach, an alliance trial for cancer survivors who smoke. This is a trial of a gradual scheduled reduction text based program to achieve smoking cessation. Hopefully this trial will be opening soon at [facility]. ? PLAN: 1.?? Austin will continue capecitabine with labs prior to the start of each cycle. 2. She will see an DAGMAR prior to the start of cycle and Dr Germain prior to cycle VIII. 3. Today I spent more than??45??minutes reviewing records, coordinating care, seeing and examining Austin and documenting this visit Queenie Conde MD documented in this encounter Plan of Treatment Upcoming Encounters Date Type Department Care Team (Late st Contact Info) Description 01/31/2024 13:40 EDT Office Visit [facility] Surgical Oncology - [address] [address] Maeve Morales, [address] [facility], [facility], [address] [place] [phone] documented as of this encounter Visit Diagnoses Diagnosis Malignant neoplasm of right breast in female, estrogen receptor negative, unspecified site of breast (HCC-CMS)- Primary documented in this encounter Care Teams Drywall Hanger Relationship Specialty Start Date End Date Batsheva Lira FNP [address] [phone] PCP - General 02/19/20 07/21/22 documented as of this encounter
--- OUTSIDE RECORDS SUMMARY | 2023-12-10 17:40 | XMS_ITS | Encounter Summary ---
Author Organization [facility] Address [address] [place] [address] Care Team Providers Care Benefits Assistant Name Role Phone Batsheva Lira JOHN Primary Care Provider [phone] Encounter Details Date Type Department Care Team (Late st Contact Info) Description 06/29/2021 13:30 EST Phlebotomy Only [facility] ED Center 2 Phlebotomy [address] [place] [address] Geospatial Image Analyst, Acc Phlebotomy Malignant neoplasm of right breast in female, estrogen receptor negative, unspecified site of breast (HCC-CMS) (HCC) ([facility]-CMS) Social History Tobacco Use Types Packs/Day [...] [facility] - [address] [address] Maeve Morales, DO [address] [place] [address], [address] [place] [address] documented as of this encounter Procedures Procedure Name Priority Date/Time Associated Diagnosis Comments COMPLETE BLOOD COUNT AND DIFFERENTIAL STAT 06/29/2021 13:37 EST Malignant neoplasm of right breast in female, estrogen receptor negative, unspecified site of breast (HCC-CMS) (HCC) (HCC-CMS) COMPREHENSIVE METABOLIC PANEL (CMP) STAT 06/29/2021 13:37 EST Malignant neoplasm of right breast in female, estrogen receptor negative, unspecified site of breast (HCC-CMS) (HCC) (HCC-CMS) documented in this encounter Results * (ABNORMAL) COMPREHENSIVE METABOLIC PANEL (CMP) (06/29/2021 13:37 EST) Sodium 136 136 - 145 mmol/L 06/29/2021 14:07 EST [facility] Potassium 3.5 3.5 - 5.0 mmol/L 06/29/2021 14:07 [facility] Chloride 100 96 - 110 mmol/L 06/29/2021 14:07 [facility] CO2 Total 25 22 - 32 mmol/L 06/29/2021 14:07 [facility] Glucose 229(H) 70 - 100 mg/dL 06/29/2021 14:07 [facility] BUN 10 10 - 26 mg/dL 06/29/2021 14:07 [facility] Creatinine 0.49(L) 0.52 - 1.04 mg/dL 06/29/2021 14:07 [facility] eGFR 118 >60 mL/min/1.7 3m2 06/29/2021 14:07 [facility] Total Protein 7.3 6.3 - 8.2 g/dL 06/29/2021 14:07 [facility] Albumin 4.5 3.4 - 4.9 g/dL 06/29/2021 14:07 [facility] Alkaline Phosphatase 250(H) 38 - 126 U/L 06/29/2021 14:07 [facility] AST 46 15 - 46 U/L 06/29/2021 14:07 [facility] ALT 53(H) <35 U/L 06/29/2021 14:07 [facility] Bilirubin, Total 0.8 <1.4 mg/dL 06/29/19 14:07 [facility] Calcium 9.1 8.5 - 10.5 mg/dL 06/29/2021 14:07 [facility] Albumin/Globulin Ratio 1.6 1.0 - 2.5 06/29/2021 14:07 [facility] Anion Gap 11 5 - 14 06/29/2021 14:07 [facility] Blood VENOUS BLOOD / Unknown Venipuncture / Unknown 06/29/2021 13:37 EST 06/29/2021 13:43 EST Queenie Conde MD CHEMISTRY & BLOOD GA S ORDERABLES [facility] [address] [place] [id number] * (ABNORMAL) COMPLETE BLOOD COUNT AND DIFFERENTIAL (06/29/2021 13:37 [facility]) WBC 7.18 4.00 - 12.40 K/cmm 06/29/2021 14:01 [facility] RBC 4.16 3.86 - 5.04 M/cmm 06/29/2021 14:01 [facility] Hemoglobin 15.1 11.6 - 15.2 gm/dL 06/29/2021 14:01 [facility] HCT 40.9 34.9 - 44.4 % 06/29/2021 14:01 [facility] MCV 98 81 - 98 fl 06/29/2021 14:01 [facility] MCH 36.3(H) 26.7 - 33.3 pg 06/29/2021 14:01 [facility] MCHC 36.9(H) 32.1 - 35.9 gm/dL 06/29/2021 14:01 [facility] RDW-CV 14.6 <14.7 % 06/29/2021 14:01 [facility] RDW-SD 53.1(H) <50.4 fl 06/29/2021 14:01 [facility] PLT 184 141 - 377 K/cmm 06/29/2021 14:01 [facility] MPV 9.6 9.5 - 12.7 fl 06/29/2021 14:01 [facility] % Neutrophils 58.8 % 06/29/2021 14:01 [facility] % Lymphocytes 29.7 % 06/29/2021 14:01 [facility] % Monocytes 8.1 % 06/29/2021 14:01 [facility] % Eosinophils 2.4 % 06/29/2021 14:01 [facility] % Basophils 0.7 % 06/29/2021 14:01 [facility] % Immature Grans 0.3 % 06/29/19 14:01 [facility] Absolute Neutrophils 4.23 2.20 - 8.85 K/cmm 06/29/2021 14:01 [facility] Absolute Lymphocytes 2.13 1.09 - 3.30 K/cmm 06/29/2021 14:01 [facility] Absolute Monocytes 0.58 0.10 - 0.80 K/cmm 06/29/2021 14:01 [facility] Absolute Eosinophils 0.17 0.03 - 0.61 K/cmm 06/29/2021 14:01 [facility] ABS Basophils 0.05 0.01 - 0.11 K/cmm 06/29/2021 14:01 [facility] Absolute Immature Grans 0.02 0.00 - 0.06 K/cmm 06/29/2021 14:01 [facility] Type of Differential: Auto 06/29/2021 14:01 [facility] Blood VENOUS BLOOD / Unknown Venipuncture / Unknown 06/29/2021 13:37 EST 06/29/2021 13:43 EST Queenie Conde MD PACKAGES & DNA PROBE ORDERABLES Performing Organization Address City/State/[facility] Co de Phone Number [facility] [address] [place] [address] documented in this encounter Visit Diagnoses Diagnosis Malignant neoplasm of right breast in female, estrogen receptor negative, unspecified site of breast (HCC-CMS) documented in this encounter Care Teams Benefits Assistant Relationship Specialty Start Date End Date Batsheva Lira FNP [address] [phone] PCP - General 02/19/20 07/21/22 documented as of this encounter
--- OUTSIDE RECORDS SUMMARY | 2023-12-10 17:40 | XMS_ITS | Encounter Summary ---
Author Organization [facility] Address [address] [place] [address] Care Team Providers Care Optomechanical Engineer Name Role Phone Batsheva Lira JOHN Primary Care Provider [phone] Reason for Visit * Reason Comments Tissue Third Rail Installer Fill right Encounter Details Date Type Department Care Team (Late st Contact Info) Description 07/13/2021 13:[address] [facility] Plastic, Reconstructive & Cosmetic Surgery - [address], [address] [place] [address] Oksana Wilkins PA-C [address] [place] [address] Surgery follow-up (Primary Dx) Social [...] Progress Notes * Anali Navas PA-C - 07/13/2021 1345 EST SUBJECTIVE: Austin Squires returns in follow up from right TE exchange with a TE on 06/18/[address] aCrcamo. She is doing well. No acute health reports today. A TE fill is planned. Of note, pt did just return from a trip to [facility]. She states that while in [place] she ran into a stroller which caused some pain at the impact site on her right lower ribcage, not on her breast or near her incision. She is improving since this incident and now only has pain when she palpates the area. She denies bruising. OBJECTIVE: On examination, she is in no distress. Her incision is healing well, without sign of drainage or dehiscence. Breast skin is devoid of rash and erythema. She arrives with surgical tape overher incisional site. IMPRESSION: Doing well PLAN: TE fill Surgical tape was removed from the right breast incisional scar and the area was cleansed with an alcohol pad. The right TE port was located with a magnet and marked. In sterile technique, 75 cc of injectable saline ws entered without incident. The site was then cleansed with an alcohol pad and a Band-Aid wassecured.Pt was informed to leave the Band- Aid in place for 24 hours Return every 2 weeks for TE fills. Once her Right TE is close to her Left TE in size then she should continue with bilateral TE fills Encouraged to call the clinic with any concerns. Anali Navas PA-C 07/13/2021 13:56 Oksana Wilkins PA-C 07/13/2021 14:04 documented in this encounter Plan of Treatment Upcoming Encounters Date Type Department Care Team (Late st Contact Info) Description 01/31/2024 13:[address] [facility] Surgical Oncology - [address] [id number] Maeve Morales, DO [address] [facility], [address] [place] [phone] documented as of this encounter Visit Diagnoses Diagnosis Surgery follow-up- Primary Follow-up examination, following unspecified surgery documented in this encounter Care Teams Optomechanical Engineer Relationship Specialty Start Date End Date Batsheva Lira FNP [address] [phone] PCP - General 02/19/20 07/21/22 documented as of this encounter
--- OUTSIDE RECORDS SUMMARY | 2023-12-10 17:40 | XMS_ITS | Encounter Summary ---
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, estrogen receptor negative, unspecified laterality ([facility]) Procedures IN REMOVAL TISSUE DESIGN ENGINEERING TECHNICIAN W/O INSERTION IMPLANT IN TISSUE DESIGN ENGINEERING TECHNICIAN PLACEMENT BREAST RECONSTRUCTION right breast tissue airport duty manager replacement RECONSTRUCTION, BREAST, WITH TISSUE DESIGN ENGINEERING TECHNICIAN Referral ID Status Reason Start Date Expiration Date Visits Re quested Visits Authorized [id number] 1 1 Encounter Details Date Type Department Care Team (Late st Contact Info) Description 06/18/2021 14:17 EST Anesthesia Event [facility] [place] [address] [place] [address] Jeffrey Petty MD [address] [address] Lay Patrick CRNA [address] [address] Anesthesia Record Procedure Summary Procedure Name Responsible Anesthesiologist Anesthesia Start Time Anesthesia Stop Time exchange of right tissue airport duty manager to new airport duty manager (for leakage) (Right: Breast) Jeffrey Petty MD 06/18/21 1417 06/18/21 1606 Events Date Time Event Comment 06/18/2021 1417 An Start The patient was re-evaluated immediately before moderate or deep sedation use, before anesthesia induction, or before the anesthesia procedure. 1417 An Start Data 1419 An Induction The patient was reevaluated immediately before moderate or deep sedation use and before anesthesia induction. 1424 An Intubation 1435 Anesthesia Ready 1447 Ghanshyam TO and START 1548 An Extubation Good resp mech s, suctioned, Opening eyes, awake extubation uneventful, NC for bed wait, comfortable 1549 an stop data 1551 Ghanshyam PACU bed hold 1605 Handoff to RN I completed my handoff to the receiving nurse during which we: 1. Identified the patient 2. Identified the responsible provider 3. Reviewed the pertinent medical history 4. Discussed the surgical course 5. Reviewed intra-op anesthesia management and issues during anesthesia 6. Set expectations for post-procedure period 7. Allowed opportunity for questions and acknowledgement of understanding. 1606 An Stop Meds Name Total dexaMETHasone (DECADRON) injection 4 mg/ mL (for IV doses up to 10mg) 4 mg ePHEDrine pre-filled syringe 5 mg fentanyl citrate (PF) injection 100 mcg HYDROmorphone vial 2 mg/mL 0.6 mg ketAMINE 5 mL prefilled syringe 30 mg midazolam (versed) 1 mg/mL 2 mL vial 2 m g lidocaine 2% (PF) injection glass vial 1 00 mg propOFol (DIPRIVAN) injection 975,446 mc g rocuronium 10 mg/mL vial 50 mg sugammadex 100 mg/mL 2 mL vial 200 mg dexmedetomidine injection - vial 40 mcg ceFAZolin (ANCEF) syringe 2 g 2 g acetaminophen 10 mg/ml 100 mL infusion 1 ,000 mg lactated ringers (LR) infusion 700 mL [id number] solution 400 mL * Agents Name O2 N2O Air * Blood No blood administrations on file. Lines, Drains, and Airways Type Details Placement Removal IVAD Single Port 08/08/20; 1002; Bard ; Valved; Right Chest, Internal Jugular; IR/Fluoro Guided, Ultrasound Guided; 8; 1% Lido, Sub Q; 2% Chlorhexidine with IPA, 70% IPA; Power Inject; Right Atrium; [id number]; [id number] 08/08/20 1002 by Estrella Westbrook RN Peripheral IV 06/18/21; 1232; 20; 1.25; B [place]ay Introcan; Left, Posterior; Forearm; Inserted by RN; 1; None; 2% Chlorhexidine with IPA; 06/18/21; 1713; Discharged; Catheter intact, No complications, Dressing applied 06/18/21 1232 by Annemarie Pierson RN 06/18/21 1713 by Briseyda Gilliam RN Peripheral IV 06/18/21; 1430; 18; Protect IV Plus; Left, Dorsal; Hand; Inserted by RN; 1; None; 70% IPA; 06/18/21; 1722; Discharged; No complications, Catheter intact, Dressing applied 06/18/21 1430 by Lay Patrick CRNA 06/18/21 1722 by Briseyda Gilliam RN Non-Surgical Airway 06/18/21; 1436 ([email or web address] mcconnell via procedure documentation); 06/18/21; 1548 06/18/21 1436 by Lay Patrick EXHIBIT ELECTRICIAN 06/18/21 1548 by Lay Patrick EXHIBIT ELECTRICIAN Wound 06/18/21; 1451; Inci vu; Right; Breast; Exchange of right tissue airport duty manager to new airport duty manager; N; Full thickness; 01/11/22; 0845; Healed 06/18/21 1451 by Joann Diaz RN 01/11/22 0845 by Naz Gonzales RN documented in this encounter Social History [...] OR Notes * Anesthesia Postprocedure Evaluation - Lay Patrick CRNA - 06/18/2021 1606 EST Patient: Austin Squires Vital signs were reviewed with the recovery nurse. Complete vitals [facility] Vitals Value Taken Time BP 110/48 06/18/21 1604 Temp 36 06/18/21 1606 Resp 12 06/18/21 1606 Pulse From Oximetry 77 BPM 06/18/21 1606 SpO2 98 % 06/18/21 1606 Vitals shown include unvalidated device data. Last Pain Score - Numeric Pain Level (Scale 1-10): 0 Type of Anesthesia - general Anesthesia Post Evaluation Post-procedure vitals reviewed and are stable. Level of consciousness: alert and oriented Temperature status: normothermia Respiratory status: airway patent and nasal cannula Cardiovascular status: acceptable Hydration status: adequate Nausea/Vomiting: none Pain management: adequate Post-Op Assessment: patient tolerated procedure well with no complications Patient participation: able to participate Disposition: outpatient/home Anesthesia Complications: No apparent anesthesia complications * Anesthesia Procedure Notes - Lay Patrick CRNA - 06/18/2021 1436 EST Associated Order(s): Airway Airway Date/Time: 06/18/2021 14:24 Urgency: elective Airway not difficult General Information and Staff Patient location during procedure: OR Resident/EXHIBIT ELECTRICIAN: Lay Patrick CRNA Performed: resident/EXHIBIT ELECTRICIAN/AA Indications and Patient Condition Indications for airway management: anesthesia Sedation level: GA Preoxygenated: yes Patient position: sniffing MILS Maintained: Yes Ventilation assessment: 1 - Easy Final Airway Details Final airway type: endotracheal airway Successful airway: ETT Cuffed: yes Successful intubation technique: direct laryngoscopy Facilitating devices/methods: intubating stylet Endotracheal tube insertion site: oral Blade: Son Blade size: #2 ETT size (mm): 7.0 Cormack-Lehane Classification: grade I - full view of glottis Placement verified by: chest auscultation and capnometry Measured from: lips ETT to lips (cm): 20 Number of attempts at approach: 1 * Anesthesia Preprocedure Evaluation - Lay Patrick CRNA - 06/18/2021 1341 EST Anesthesia Preprocedure Evaluation Patient Medical History, including [...] Constitutional: Negative. HENT: Negative. Eyes: Negative. Respiratory: Negative for cough, sputum production, shortness of breath and wheezing. Cardiovascular: Negative. Negative for chest pain and palpitations. Gastrointestinal: Negative for heartburn, nausea and vomiting. Genitourinary: Negative. Negative for dysuria and urgency. Musculoskeletal: Negative. Skin: Negative. Neurological: Positive for tingling. Negative for seizures. Neuropathy 2* chemo Endo/Heme/Allergies: Does not bruise/bleed easily. Psychiatric/Behavioral: Negative for depression, substance abuse and suicidal ideas. The patient isnot nervous/anxious. Past Medical History: Diagnosis Date ??? Activity, other involving cardiorespiratory exercise just signed up for steps to wellness ??? Bladder incontinence ??? Cancer ([facility]) (HCC) ??? Exercise involving housework ??? Exercise involving walking july till february- runs [employer]- very active. ??? Head trauma 06/19/20 fell [...] Rate: normal Dental - normal exam Pulmonary Abdominal Other findings: NPO 23:00 Sips water 8am with amlodipine, chemo, lexapro. No tylenol today Anesthesia Plan ASA 2 Anesthesia Type - general, to include intravenous induction. Anesthesia plan and risks discussed. Informed consent obtained from patient. Use of blood products discussed with patient who consented to blood products. Specific risks discussed were bleeding, dental injury, nausea and vomiting. Code status discussed? Yes (full code) PAT Note PAT Note by Liza Kemp, RN at 06/09/2021 5:10 Version 1 of 1 COVID 19 Screening Perioperative at time of [...] instruct them to call us back at [phone] to report symptoms Visitor Policy: Surgical & [...] Office Visit [facility] Surgical Oncology - [address] [id number] Maeve Morales, DO [address] [place] [address], [address] [place] [phone] documented as of this encounter Procedures Procedure Name Priority Date/Time Associated Diagnosis Comments ANESTHESIA INTUBATION Routine 06/18/2021 14:24 EST documented in this encounter Results * IN AN ELECTIVE ENDOTRACHEAL AIRWAY (06/18/2021 14:24 EST) Narrative Lay Patrick CRNA - 06/18/2021 14:24 EST Lay Patrick CRNA ? 06/18/2021 14:36 Airway Date/Time: 06/18/2021 14:24 Urgency: elective Airway not difficult General Information and Staff Patient location during procedure: OR Resident/EXHIBIT ELECTRICIAN: Lay Patrick CRNA Performed: resident/EXHIBIT ELECTRICIAN/AA Indications and Patient Condition Indications for airway management: anesthesia Sedation level: GA Preoxygenated: yes Patient position: sniffing MILS Maintained: Yes Ventilation assessment: 1 - Easy Final Airway Details Final airway type: endotracheal airway Successful airway: ETT Cuffed: yes Successful intubation technique: direct laryngoscopy Facilitating devices/methods: intubating stylet Endotracheal tube insertion site: oral Blade: Son Blade size: #2 ETT size (mm): 7.0 Cormack-Lehane Classification: grade I - full view of glottis Placement verified by: chest auscultation and capnometry Measured from: lips ETT to lips (cm): 20 Number of attempts at approach: 1 Jeffrey Petty MD ANESTHESIA ORDERA BLES documented in this encounter Visit Diagnoses Not on filedocumented in this encounter Administered Medications Inactive Administered Medications - up to 3 most recent administrations Medication Order MAR Action Action Date Dose Rate Site acetaminophen (OFIRMEV) IV solution intravenous, PRN, Starting on Klaudia 06/18/21 at 1440, Until Klaudia 06/18/21 at 1606, Routine, Anesthesia Intraprocedure Given 06/18/2021 14:40 EST 1,000 mg ceFAZolin (ANCEF) syringe 2 g 2 g, intravenous, Administer over 5 Minutes, PRE-OP ONCE, 1 dose, On Klaudia 06/18/21 at 1400, Routine Given 06/18/2021 14:35 EST 2 g dexAMETHasone (DECADRON) injection intravenous, PRN, Starting on Klaudia 06/18/21 at 1435, Until Klauida 06/18/21 at 1606, Routine, Anesthesia Intraprocedure Given 06/18/2021 14:35 EST 4 mg dexmedeTOMIDine (PRECEDEX) injection intravenous, PRN, Starting on Klaudia 06/18/21 at 1417, Until Klaudia 06/18/21 at 1606, Routine, Anesthesia Intraprocedure Given 06/18/2021 14:34 EST 10 mcg Given 06/18/2021 14:32 EST 10 mcg Given 06/18/2021 14:25 EST 10 mcg electrolyte-A (PLASMALYTE-A) solution intravenous, FA IP EQF CONTINUOUS PRN FOR ONE STEP MEDS, Starting on Klaudia 06/18/21 at 1430, Until Klaudia 06/18/21 at 1606, Routine, Anesthesia Intraprocedure New Bag 06/18/2021 14:30 EST ePHEDrine injection 25 mg/5 mL syringe intravenous, PRN, Starting on Klaudia 06/18/21 at 1526, Until Klaudia 2/3/22 at 1606, Routine, Anesthesia Intraprocedure Given 06/18/2021 15:26 EST 5 mg fentaNYL citrate (PF) injection intravenous, PRN, Starting on Klaudia 06/18/21 at 1413, Until Klaudia 06/18/21 at 1606, Routine, Anesthesia Intraprocedure Given 06/18/2021 14:13 EST 100 mcg HYDROmorphone (DILAUDUD) 2 mg/mL injection intravenous, PRN, Starting on Klaudia 06/18/21 at 1554, Until Klaudia 06/18/21 at 1606, Routine, Anesthesia Intraprocedure Given 06/18/2021 15:54 EST 0.6 mg ketAMINE in NaCl, iso-osmotic (KETALAR) 50 mg/5 mL (10 mg/mL) IV injection intravenous, PRN, Starting on Klaudia 06/18/21 at 1422, Until Klaudia 06/18/21 at 1606, Routine, Anesthesia Intraprocedure Given 06/18/2021 14:22 EST 30 mg lactated ringers (LR) infusion at 25 mL/hr, intravenous, CONTINUOUS, Starting on Klaudia 06/18/21 at 1230, Until Klaudia 06/18/21 at 2207, Routine, Preprocedure New Bag 06/18/2021 14:17 EST lidocaine (PF) 20 mg/mL (2 %) injection intravenous, PRN, Starting on Klaudia 06/18/21 at 1420, Until Klaudia 06/18/21 at 1606, Routine, Anesthesia Intraprocedure Given 06/18/2021 14:20 EST 100 mg midazolam (PF) (VERSED) injection intravenous, PRN, Starting on Klaudia 06/18/21 at 1413, Until Klaudia 06/18/21 at 1606, Routine, Anesthesia Intraprocedure Given 06/18/2021 14:13 EST 2 mg propOFol (DIPRIVAN) injection intravenous, PRN, Starting on Klaudia 06/18/21 at 1420, Until Klaudia 06/18/21 at 1606, Routine, Anesthesia Intraprocedure Rate Change 06/18/2021 15:36 EST 100 mcg/kg/min 46.62 mL/hr Rate Change 06/18/2021 15:25 EST 120 mcg/kg/min 55.944 mL/ hr Rate Change 06/18/2021 14:53 EST 140 mcg/kg/min 65.268 mL/ hr rocuronium (ZEMURON) injection intravenous, PRN, Starting on Klaudia 06/18/21 at 1421, Until Klaudia 06/18/21 at 1606, Routine, Anesthesia Intraprocedure Given 06/18/2021 14:21 EST 50 mg sugammadex (BRIDION) injection intravenous, PRN, Starting on Klaudia 06/18/21 at 1545, Until Klaudia 06/18/21 at 1606, Routine, Anesthesia Intraprocedure Given 06/18/2021 15:45 EST 200 mg documented in this encounter Care Teams Electric Cutter Operator Relationship Specialty Start Date End Date Batsheva Lira FNP [address] [phone] PCP - General 02/19/20 07/21/22 documented as of this encounter
--- OUTSIDE RECORDS SUMMARY | 2023-12-10 17:40 | XMS_ITS | Encounter Summary ---
Author Organization [facility] Address [address] [place] [address] Care Team Providers Care Replacer Name Role Phone Batsheva Lira JOHN Primary Care Provider [phone] Reason for Visit * Reason Comments Appointment Related Encounter Details Date Type Department Care Team (Late st Contact Info) Description 04/17/2021 Telephone [facility] [address] [place] [address] Oksana Pereyra, PT [address] [place] [address] Appointment Related Social History Tobacco Use Types [...] encounter Miscellaneous Notes * Telephone Encounter - Audrey Gonzalez - 04/17/2021 0834 EST Telephone Information for Cancelled Appointments The patient called to cancel their appointment with Oksana Pereyra PT on 04/17 at 9:30 due to illness The patient will be at next scheduled appointment Audrey Gonzalez 04/17/2021 documented in this encounter Plan of Treatment Upcoming Encounters Date Type Department Care Team (Late st Contact Info) Description 01/31/2024 13:40 EDT Office Visit [facility] Surgical Oncology - [address] [id number] Maeve Morales, DO [address] [facility], [address] [place] [phone] documented as of this encounter Visit Diagnoses Not on filedocumented in this encounter Care Teams Replacer Relationship Specialty Start Date End Date Batsheva Lira FNP [address] [place] [phone] PCP - General 02/19/20 07/21/22 documented as of this encounter
--- OUTSIDE RECORDS SUMMARY | 2023-12-10 17:41 | XMS_ITS | Encounter Summary ---
Author Organization [facility] Address [address] [place] [address] Care Team Providers Care Recording Engineer Name Role Phone Batsheva Lira JOHN Primary Care Provider [phone] Encounter Details Date Type Department Care Team (Late st Contact Info) Description 02/16/2021 Orders Only [facility] Hematology & Oncology - [address] [address] Lolly Antunez, RADHA Malignant neoplasm of upper-inner quadrant of left [...] have Coronavirus / COVID-19? No / Unsure 02/05/2021 12:54 EDT documented as of this encounter Functional [...] Office Visit [facility] Surgical Oncology - [address] [address] Maeve Morales, [address], [facility], [address] [place] [phone] documented as of this encounter Visit Diagnoses Diagnosis Malignant 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, estrogen receptor negative ([facility] Primary documented in this encounter Care Teams Recording Engineer Relationship Specialty Start Date End Date Batsheva Lira FNP [address] [phone] PCP - General 02/19/20 07/21/22 documented as of this encounter
--- OUTSIDE RECORDS SUMMARY | 2023-12-10 17:41 | XMS_ITS | Encounter Summary ---
Author Organization [facility] Address [address] [place] [address] Care Team Providers Care Paper Box Cutter Name Role Phone Batsheva Lira JOHN Primary Care Provider [phone] Encounter Details Date Type Department Care Team (Late st Contact Info) Description 02/06/2021 Orders Only [facility] Radiology - [address] [place] [address] [place], [place] [id number] Promise Ramos MD [address] [place], [place] [address] Social History Tobacco Use Types Packs/Day Years [...] Visit [facility] Surgical Oncology - [address] [phone] Maeve Morales, 111 [facility], [facility], [address] [place] [address] documented as of this encounter Visit Diagnoses Not on filedocumented in this encounter Care Teams Paper Box Cutter Relationship Specialty Start Date End Date Batsheva Lira FNP [address] [phone] PCP - General 02/19/20 07/21/22 documented as of this encounter
--- OUTSIDE RECORDS SUMMARY | 2023-12-10 17:41 | XMS_ITS | Encounter Summary ---
Author Organization [facility] Address [address] [place] [address] Care Team Providers Care Security Tech Name Role Phone Batsheva Lira JOHN Primary Care Provider [phone] Reason for Visit * Reason Onset Date Comments Coordination Of Care 02/17/2021 Encounter Details Date Type Department Care Team (Late st Contact Info) Description 02/17/2021 Telephone [facility] Hematology & Oncology - [facility] [address] [place], [place] [address] Vivian Brito, RN Coordination Of Care Social History Tobacco Use Types Packs/Day [...] Miscellaneous Notes * Telephone Encounter - Vivian Brito, RADHA - 02/17/2021 0946 EDT Per request of Dr. Conde called patient to let her know that the liver team would be reaching out tofollow up with her progressive steatosis and hepatomegaly. Asked her to call us back tomorrow afternoon if she has not heard from them as we would like to get her in to them sooner than later so she can start on her chemo. Austin verbalized understanding of plan and will call with questions or concerns. documented in this encounter Plan of Treatment Upcoming Encounters Date Type Department Care Team (Late st Contact Info) Description 01/31/2024 13:40 EDT Office Visit [facility] Surgical Oncology - [address] [address] Maeve Morales, 111 [facility], [address] [place] [phone] documented as of this encounter Visit Diagnoses Not on filedocumented in this encounter Care Teams Security Tech Relationship Specialty Start Date End Date Batsheva Lira FNP [address] [phone] PCP - General 02/19/20 07/21/22 documented as of this encounter
--- OUTSIDE RECORDS SUMMARY | 2023-12-10 17:41 | XMS_ITS | Encounter Summary ---
Author Organization [facility] Address [address] [place] [address] Care Team Providers Care Outside Medical Sales Representative Name Role Phone Batsheva Lira JOHN Primary Care Provider [phone] Encounter Details Date Type Department Care Team (Latest Contact Info) Description 02/05/2021 Travel Social History Tobacco Use Types Packs/Day [...] Info) Description 01/31/2024 13:40 EDT Office Visit [facility] Surgical Oncology - [address] [phone] Maeve Morales, 111 [facility], [facility], [address] [place] [phone] documented as of this encounter Visit Diagnoses Not on filedocumented in this encounter Care Teams Outside Medical Sales Representative Relationship Specialty Start Date End Date Batsheva Lira FNP [address] [phone] PCP - General 02/19/20 07/21/22 documented as of this encounter
--- OUTSIDE RECORDS SUMMARY | 2023-12-10 17:41 | XMS_ITS | Encounter Summary ---
Author Organization [facility] Address [address] [place] [address] Care Team Providers Care Stenciler Name Role Phone Batsheva Lira JOHN Primary Care Provider [phone] Reason for Visit * Reason Comments Follow-up Encounter Details Date Type Department Care Team (Late st Contact Info) Description 03/26/2021 9:20 EST Office Visit [facility] Cancer Center Hematology & Oncology - [address] [address] Liat Honeycutt, PA-C [address] [place] [address], Level 2 [place] [address] Malignant neoplasm of upper-inner quadrant [...] Sign Reading Time Taken Comments Blood Pressure 139/79 03/26/2021 0854 EST Pulse 98 03/26/2021 0854 EST Temperature 36.2 ??C (97.1 ??F) 03/26/2021 0854 EST Respiratory Rate 16 03/26/2021 0854 EST Oxygen Saturation 98% 03/26/2021 0854 EST Inhaled Oxygen Concentration - - Weight 80.6 kg (177 lb 9.6 oz) 03/26/[address] Height 167.4 cm (5' 5.91) 03/26/2021 0854 EST Body Mass Index 28.75 03/26/2021 0854 EST documented in this encounter [...] Progress Notes * Liat Honeycutt PA-C - 03/26/2021 0920 EST Austin Squires is a 45 y.o.yo female presenting in clinic today for assessment prior to ongoing capecitabine therapy, following neoadjuvant chemotherapy, given for node positive breast cancer Chief Complaint Patient presents with ??? 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 Genetic testing was negative( a 9 gene panel performed through [facility] was performed ). Bilateral mastectomies performed on 12/24/20 revealed 2.5 cm of a poorly differentiated ductal carcinoma. ??All margins were negative. ??0/3 nodes were positive.?Contralateral breast was benign. PD-L1 testing appears to be negative. Her case was discussed at tumor board and she was felt to be a good candidate for adjuvant capecitabine (Xeloda). Due toelevated LFTs, she first underwent a GI evaluation (Dr Daiz), with a diagnosis of non-alcoholicfatty liver disease (NAFLD), and no contraindications to initiation of Xeloda. She initiated her first cycle in late Feb, with eight cycles planned (initial dose 2000 mg bid, 2 weeks on, 1 week off). SUBJECTIVE: Austin returns to check in, fairly newly on capecitabine. She feels she is tolerating itwell thus far. She has noticed some mild nausea, here and there. Nothing significant enough to reach for an antinausea medication. She is about 3 days into her second cycle. She has been getting weekly labs. She has seen some weight loss, which was the recommended treatment to address fatty liver. She is planning to take part in oncology rehab, but does remark that she had a fairly recent fall,and tweaked her right shoulder. Range of motion is affected and it is fairly uncomfortable. We discussed she might benefit from returning to physical therapy prior to taking part in group exercise. REVIEW OF SYSTEMS: I went through verbal review of symptoms with the patient. Symptoms as noted above. She remarks upon persistent fatigue. Currently no GI concerns. No significant cough or dyspnea. Overall her system review is without acute complaints today. Past medical, surgical, family and social history reviewed and updated. - lives in [place]. 9 yr old daughter, and 2 adult children. . Objective: BP 139/79 Pulse 98 Temp 36.2 ??C (97.1 ??F) (Skin) Resp 16 Ht 167.4 cm (65.91) Wt 80.6 kg (177 lb 9.6 oz) SpO2 98% BMI 28.75 kg/m?? General appearance: alert, no distress Head: [...] turgor normal. No rashes or lesions LABORATORY: Labs from 03/23/2021 include a CMP, significant for elevated glucose of 221. ALT/AST elevated at 73/53. Alkaline phosphatase 174. Hemogram from the same date is essentially within normal limits. ASSESSMENT: Triple negative breast cancer, status post neoadjuvant chemotherapy. At the time of surgery the patient had residual 2.5 cm of tumor, and negative nodes. Adjuvant capecitabine has been recommended, and Austin has now completed 1 cycle, and is started her second cycle. So far she is having no major side effects. She has chronic elevation of LFTs, felt to be related to fatty liver, and has been cleared to take capecitabine by gastroenterology. She is fit to continue treatment at this time. PLAN: 1. Continue capecitabine, 2000 mg twice daily, 2 weeks on, 1 week off. The patient just started hersecond cycle a couple of days ago. I will ask if she needs to continue with weekly labs or she might space this out to every 2 weeks. 2. I will reach out to physical therapy and scheduling for oncology rehab, given shoulder pain and range of motion issues. The patient may benefit from another PT consult prior to taking part in group exercise. 3. The patient is working with social work as well as counseling and support of emotional and financial needs around her breast cancer diagnosis and treatment. 4. Next visit in surgical oncology with Dr. Morales is scheduled for July 2021. 5. Follow-up with Dr. Conde likely in about 6 weeks, sooner with acute concerns or questions. I was directly supervised by Janet Rosado MD, who was in the suite and immediately available for the entire time the above documented service was provided. I spent a total of 30 minutes on the date of this encounter meeting with the patient and reviewing documentation/coordinating care as described in the above note. No procedures were performed at the time of the visit. Liat Honeycutt PA-C 03/26/2021 10:54 documented in this encounter Plan of Treatment Upcoming Encounters Date Type Department Care Team (Late st Contact Info) Description 01/31/2024 13:40 EDT Office Visit [facility] Surgical Oncology - [address] [id number] Maeve Morales DO [address] [place] [address], Level 2 [place] [address] documented as of this encounter Visit Diagnoses Diagnosis Malignant 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, estrogen receptor negative (HCC-CMS)- Primary documented in this encounter Discontinued Medications Medication Sig Discontinue Reason Start Date End Da te acetaminophen (TYLENOL) 500 mg tablet Take 2 Tablets by mouth every 6 hours. 12/25/2020 03/26/2021 HYDROmorphone (DILAUDID) 2 mg tablet Take 1-2 Tablets by mouth every 4 hours as needed for Pain. Daily Max: 24 mg 12/25/2020 03/26/2021 lidocaine-prilocaine (EMLA) cream Apply to port site and cover, 1 hr before planned port access 08/13/2020 03/26/2021 omeprazole (PRILOSEC) 40 mg capsule TAKE 1 CAPSULE BY MOUTH EVERYDAY AT BEDTIME 12/30/2020 03/26/2021 triamcinolone acetonide (KENALOG) 0.1 % pasteIndications:Malign ant 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, estrogen receptor negative (HCC-CMS) Apply to affected area up to three times daily as needed for pain. 11/07/2020 03/26/2021 documented as of this encounter Care Teams Stenciler Relationship Specialty Start Date End Date Batsheva Lira FNP [address] [address] PCP - General 02/19/20 07/21/22 documented as of this encounter
--- OUTSIDE RECORDS SUMMARY | 2023-12-10 17:41 | XMS_ITS | Encounter Summary ---
Author Organization [facility] Address [address] [place] [address] Care Team Providers Care Route Process Administrator Name Role Phone Batsheva Lira JOHN Primary Care Provider [phone] Reason for Referral * Radiology Services (Routine/Next Available) - Receiving Office to Obtain Authorization Specialty Diagnoses / Procedures Referred By Jen gonzáles Referred To Contact Diagnoses Malignant neoplasm of female breast, unspecified estrogen receptor status, unspecified laterality, unspecified site of breast ([facility]) Procedures CT ANGIO ABDOMEN PELVIS Juanito Carcamo MD FACS [address] [place] [address] [place] [id number] [facility] Referral ID Status Reason Start Date Expiration Date Visits Requested Visits Authorized [id number] Receiving Office to Obtain Authorization 03/20/2021 1 1 Reason for Visit * Reason Comments Tissue Community Representative Fill Bilateral TE fill Encounter Details Date Type Department Care Team (Latest Contact Info) Description 03/20/2021 9:00 EDT Post-op Visit [facility] Plastic, Reconstructive & Cosmetic Surgery - [address], [address] [place] [address] Juanito Carcamo MD FACS [address] [place] [phone] Malignant neoplasm of female breast, unspecified estrogen [...] 15:09 EDT documented as of this encounter Functional [...] Progress Notes * Mike Gotti RN - 03/20/2021 0900 EDT Examination chaperoned by MIKE GOTTI RN. * Juanito Carcamo MD FACS - 03/20/2021 0900 EDT Austin is here for fill of her bilateral tissue expanders and to discuss autologous tissue reconstruction options. Examination her breasts are symmetric and expanders appear to be filling nicely. Incisions are healing nicely. After verbal informed consent was obtained the port was located magnetically and marked. A chloraprep was used for sterilization x2. Using standard sterile technique and a closed system the port was accessed and the data systems manager filled with 100 cc of injectable saline bilaterally. The patient tolerated the procedure well. Access sites were dressed with spot bandaids to be removed tomorrow. Totals were recorded on the flow sheet. She now has fills of 500 cc's bilaterally in 750 cc expanders. The goal is to fill to 825. Signs and symptoms of infection were discussed. She will follow up in 2-3 weeks for her next fill. We discussed JANNETTE flap reconstruction. She is not sure if she is willing to undergo the more extensive surgery and is weighing that against the ongoing main tenance although minimal of breast implants. We will go ahead and order the CTA to see if she is a candidate as this may decide the issue for us. She does understand that if we did use bilateral DIEPflaps that she would likely need multiple rounds of fat grafting possibly implants in order to achieve the volume that she desires. documented in this encounter Plan of Treatment Upcoming Encounters Date Type Department Care Team (Late st Contact Info) Description 01/31/2024 13:40 EDT Office Visit [facility] Surgical Oncology - [address] [id number] Maeve Morales, [address] [place] [address], [facility], [address] [place] [address] documented as of this encounter Results * CT ANGIO ABDOMEN [...] andagree with the findings. Juanito Carcamo MD FACS IMG CT ORDER CHAO documented in this encounter Visit Diagnoses Diagnosis Malignant neoplasm of female breast, unspecified estrogen receptor status, unspecified laterality, unspecified site of breast (HCC-CMS)- Primary Malignant neoplasm of female breast, unspecified estrogen receptor status, unspecified laterality, unspecified site of breast (HCC-CMS) documented in this encounter Care Teams Route Process Administrator Relationship Specialty Start Date End Date Batsheva Lira FNP [facility] [address] [address] PCP - General 02/19/20 07/21/22 documented as of this encounter
--- OUTSIDE RECORDS SUMMARY | 2023-12-10 17:41 | XMS_ITS | Encounter Summary ---
Author Organization [facility] Address [address] [place] [address] Care Team Providers Care Loss Prevention Officer Name Role Phone Batsheva Lira JOHN Primary Care Provider [phone] Reason for Visit * Reason Onset Date Comments Follow-up 02/10/2021 Encounter Details Date Type Department Care Team (Late st Contact Info) Description 02/10/2021 Telephone [facility] Center Hematology & Oncology - [facility] [address] [place], [place] [id number] Edinson Lorenzana, RESIDENCE HALL DIRECTOR Follow-up Social History Tobacco Use Types [...] Telephone Encounter - Edinson Lorenzana LICSW - 02/10/2021 1320 EDT JUDIT VICK Note: Reason for Call: Austin and I called [facility] today as planned to schedule an appointment for SSI. Pt has been scheduled for an appointment on 02/25 at 10:30. Pt is going to let me know two weeks after this appointment if she hasn't heard from [facility]. We will call [facility] for an update at that time. Pt Centered Identified Goal: SSDI and SSI Plan: Plan to speak with the pt after her SSI appointment. Edinson COON documented in this encounter Plan of Treatment Upcoming Encounters Date Type Department Care Team (Late st Contact Info) Description 01/31/2024 13:40 EDT Office Visit [facility] Surgical Oncology - [address] [id number] Maeve Morales, DO [address] [facility], [facility], Level [address] [place] [phone] documented as of this encounter Visit Diagnoses Not on filedocumented in this encounter Care Teams Loss Prevention Officer Relationship Specialty Start Date End Date Batsheva Lira FNP [address] [phone] PCP - General 02/19/20 07/21/22 documented as of this encounter
--- OUTSIDE RECORDS SUMMARY | 2023-12-10 17:41 | XMS_ITS | Encounter Summary ---
Author Organization [facility] Address [address] [place] [address] Care Team Providers Care Cement Mason Maintenance Name Role Phone Batsheva Lira JOHN Primary Care Provider [phone] Reason for Visit * Reason Onset Date Comments Other 03/12/2021 Encounter Details Date Type Department Care Team (Late st Contact Info) Description 03/12/2021 Telephone [facility] Cancer Center Hematology & Oncology - [facility] [address] [place], [place] [id number] Vivian Lackey CCLS Other Social History Tobacco [...] Telephone Encounter - Vivian Lackey CCLS - 03/12/2021 1350 EDT JORDAN connected with Austin to discuss Zoom session with her daughter Lan. JORDAN shared that is appears that Lan is coping well as evidenced by her engagement in school, extracurricular activities, and support system. Lan shared concerns of typical school-agers, including feeling upset when excluded from activities by peers. She doesn't appear to be worried or fearful of Austin's cancer diagnosis. CATHLEENS suggested that Austin can reach out if she notices changes, such as decrease in activity level, dropping grades, etc. Austin stated she would reach out to child life should she notice anychanges in Lan's ability to cope in the future. No additional needs at this time. JORADN Melendez Wind Turbine Performance Engineer II documented in this encounter Plan of Treatment Upcoming Encounters Date Type Department Care Team (Late st Contact Info) Description 01/31/2024 13:40 EDT Office Visit [facility] [place] [address] Maeve Morales, DO [address] [facility], [address] [place] [address] documented as of this encounter Visit Diagnoses Not on filedocumented in this encounter Care Teams Cement Mason Maintenance Relationship Specialty Start Date End Date Batsheva Lira FNP [address] [address] PCP - General 02/19/20 07/21/22 documented as of this encounter
--- OUTSIDE RECORDS SUMMARY | 2023-12-10 17:41 | XMS_ITS | Encounter Summary ---
Author Organization [facility] Address [address] [place] [address] Care Team Providers Care Commanding Officer Homicide Squad Name Role Phone Batsheva Lira JOHN Primary Care Provider [phone] Reason for Visit * Reason Comments New Patient Visit Fatty Liver * Consult (Urgent) - Order Cancelled Specialty Diagnoses / Procedures Referred By Contact Referred To Contact Gastroenterology and Hepatology Diagnoses Hepatomegaly Steatosis (HCC-CMS) Malignant 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, estrogen receptor negative (HCC-[place]) [place] [address] [address] Hernando Diaz MD PhD [address] [place] [phone] Referral ID Status Reason Start Date Expiration Date Visits Requested Visits Authorized [id number] Order Cancelled Specialty Services Required 02/16/2021 1 1 Encounter Details Date Type Department Care Team (Late st Contact Info) Description 02/20/2021 11:20 EDT Telemedicine [facility] Gastroenterology - [address] [phone] Hernando Diaz MD PhD [address] [place] [phone] Fatty liver (Primary Dx); LFTs abnormal Social History Tobacco Use Types Packs/Day Years [...] 12:54 EDT documented as of this encounter Last Filed Vital Signs Vital Sign Reading Time Taken Comments Blood Pressure - - Pulse - - Temperature - - Respiratory Rate - - Oxygen Saturation - - Inhaled Oxygen Concentration - - Weight 81.6 kg (180 lb) 02/20/2021 1123 EDT Height 167.1 cm (5' 5.79) 02/20/2021 1123 EDT Body Mass Index 29.24 02/20/2021 1123 EDT documented in this encounter Functional Status [...] as of this encounter Progress Notes * Hernando Diaz MD - 02/20/2021 1120 EDT TELEMEDICINE VIDEO VISIT Today's visit was provided through telemedicine video conferencing: I have reviewed the appropriateness of using video technology with the patient with regards to today's visit. The location of the patient : home The location of the provider: remote office The following staff and their role did participate in today's encounter visit: MD Ivis Andrews MA The concept of ???Telemedicine?? has been described to the patient. Patient has been informed of the anticipated benefits and possible risks. Patient understands the information provided regarding telemedicine, has had the opportunity to ask questions about this information, and all questions havebeen answered to patient???s satisfaction. Patient consents for the use of telemedicine in his/her medical care and authorizes the transmission of any relevant medical information to providers and their staff involved in patient???s medical or mental health care. I spent a total of 45 minutes on the date of this encounter meeting with the patient and reviewing documentation/coordinating care as described in the Consult Note. documented in this encounter Consult Notes * Hernando Diaz MD - 02/20/2021 1120 EDT [facility] GASTROENTEROLOGY AND HEPATOLOGY CONSULTATION - 02/20/2021 Queenie Conde MD [facility] - Medical Oncology [address] [place] [address] Conde: Thank you for asking me to see Austin Squires today. I saw her via a video link. As you know, she is a 45-year-old woman with abnormal biochemical liver tests and radiographic evidence of fatty liver. She was found to have triple negative breast cancer in June 2020. As part of the evaluation, laboratory testing was performed in July 2020, and elevations in serum aminotransferases were present.Neoadjuvant chemotherapy was subsequently administered, and serum aminotransferase elevations persisted. Following bilateral mastectomies in December 2020, it was noted that the levels of serum aminotransferases had increased slightly (less than 2 times their values in July 2020). A serological evaluation revealed a negative hepatitis B core antibody and negative hepatitis B surface antibody. A CTscan of the abdomen, performed on 02/13/2021 showed an enlarged fatty liver and no other abnormalities. Adjuvant chemotherapy with capecitabine is under consideration. There have been no previous signs or symptoms from the standpoint of liver disease, including jaundice, ascites, or gastrointestinalbleeding. Past health is otherwise significant for hypertension, nephrolithiasis, mood disorder, and recent weight gain. Family history is negative for liver disease. The patient has managed a Siri andlives with her daughter. She consumes alcohol infrequently and does not take complementary or alternative agents. Adverse reactions to medications include ondansetron and oxycodone. Current medications include amlodipine, Lexapro, and omeprazole. Laboratory data obtained in January 2021 show white blood cell count 6.04, hematocrit 44, platelets 255, bilirubin less than 0.5, alkaline phosphatase 161, ALT 157, AST 102, albumin 4.9, creatinine0.51. In summary, Ms. Squires has abnormal biochemical liver tests and radiographic evidence of fatty liver. The most likely diagnosis is nonalcoholic fatty liver disease (NAFLD). I cannot exclude the possibility of other potentially treatable disorders, such as chronic hepatitis C, and I will request serological testing. I will be in touch with you and the patient when the results are available. The current treatment of choice for NAFLD is weight loss, and ongoing nutritional input would be helpful in this regard. Patients with underlying liver disease, including NAFLD are not at increased risk for drug-induced liver injury. Thus, there are no contraindications to initiation of capecitabine therapy. To monitorfor drug-induced liver injury, I suggest that you monitor the patient weekly initially, with a liver panel, and the frequency of laboratory testing can be decreased provided that marked elevations inserum aminotransferases do not emerge. If the levels of serum aminotransferases increase 2-3 times their current values, please call me directly for additional input. Thank you once again for allowing me to see this patient in consultation with you. Should you have any further questions regarding this evaluation, please feel free to contact me at any time. Sincerely, Hernando Diaz MD,PhD cc: MD Batsheva Ventura FNP documented in this encounter Plan of Treatment Upcoming Encounters Date Type Department Care Team (Late st Contact Info) Description 01/31/2024 13:40 EDT Office Visit [facility] Surgical Oncology - [facility] [address] [place], [place] [phone] Maeve Morales, [address] [facility], [facility], [address] [place] [address] documented as of this encounter Results * HEPATITIS C AB W REFLEX TO HCV RNA BY PCR (02/25/2021 13:55 EDT) Hep C Antibody Negative Negative 02/26/2021 11:03 EDT [facility] Blood VENOUS BLOOD / Unknown Venipuncture / Unknown 02/25/2021 13:55 EDT 02/25/2021 14:13 EDT Hernando Diaz MD PhD CHEMISTRY & BLO OD GAS ORDERABLES [facility] [address] [place] [address] documented in this encounter Visit Diagnoses Diagnosis Fatty liver- Primary Other chronic nonalcoholic liver disease LFTs abnormal Other abnormal blood chemistry documented in this encounter Care Teams Commanding Officer Homicide Squad Relationship Specialty Start Date End Date Batsheva Lira FNP [address] [address] PCP - General 02/19/20 07/21/22 documented as of this encounter
--- OUTSIDE RECORDS SUMMARY | 2023-12-10 17:41 | XMS_ITS | Encounter Summary ---
Author Organization [facility] Address [address] [place] [address] Care Team Providers Care Perforating Machine Operator Name Role Phone Batsheva Lira JOHN Primary Care Provider [phone] Reason for Visit * Reason Onset Date Comments Follow-up 03/02/2021 Encounter Details Date Type Department Care Team (Late st Contact Info) Description 03/02/2021 Telephone [facility] Cancer Center Hematology & Oncology - [facility] [address] [place], [place] [id number] Edinson Lorenzana QUALITY CONTROL LAB TECH Follow-up Social History Tobacco Use Types Packs/Day [...] Telephone Encounter - Edinson Lorenzana LICSW - 03/02/2021 1052 EDT JUDIT VICK Note: Reason for Call: Austin sent me an email explaining that SSA sent her two packets she would like my support with. I left her a VM and sent her a message offering for us to set up a time in person, by zoom or by phone so I can help her. Pt Centered Identified Goal: Support w/ packets r/t SSDI/SSI claim Plan: Waiting to hear back from Austin. Edinson COON ADDENDUM 3:30 Pt and I planned to meet tomorrow in our waiting room at 1pm. documented in this encounter Plan of Treatment Upcoming Encounters Date Type Department Care Team (Late st Contact Info) Description 01/31/2024 13:40 EDT Office Visit [facility] Surgical Oncology - [address] [id number] Maeve Morales, 111 [facility], [facility], Level 2 [place] [address] documented as of this encounter Visit Diagnoses Not on filedocumented in this encounter Care Teams Perforating Machine Operator Relationship Specialty Start Date End Date Batsheva Lira FNP [address] [phone] PCP - General 02/19/20 07/21/22 documented as of this encounter
--- OUTSIDE RECORDS SUMMARY | 2023-12-10 17:41 | XMS_ITS | Encounter Summary ---
Author Organization [facility] Address [address] [place] [address] Care Team Providers Care Loading Machine Operator Helper Name Role Phone Batsheva Lira JOHN Primary Care Provider [phone] Pam Germain MD Unavailable [phone] Janay Duran APRN Primary Care Provider Unava ilable Encounter Details Date Type Department Care Team (Late st Contact Info) Description 02/27/2021 Specialty Pharmacy [facility] - Main [place] [address] [place], [place] [id number] Petros Vega, Manan Social History Tobacco Use Types Packs/Day Years [...] [facility] Surgical Oncology - [address] [address] Maeve Morales DO [address] [address] documented as of this encounter Visit Diagnoses Not on filedocumented in this encounter Care Teams Loading Machine Operator Helper Relationship Specialty Start Date End Date Batsheva Lira FNP [address] [place] [phone] PCP - General 02/19/20 07/21/22 Janay Duran APRN [address] [place] [phone] PCP - General Family Medicine - Primary Care 07/22/22 Pam Germain MD [address] [place] [phone] Medical Oncology 03/22/22 documented as of this encounter
--- OUTSIDE RECORDS SUMMARY | 2023-12-10 17:41 | XMS_ITS | Encounter Summary ---
Author Organization [facility] Address [address] [place] [address] Care Team Providers Care Metal Die Finisher Name Role Phone Batsheva Lira JOHN Primary Care Provider [phone] Reason for Visit * Reason Comments Post-OP Follow Up First fill,, amelia other options Encounter Details Date Type Department Care Team (Latest Contact Info) Description 02/05/2021 13:00 EDT Post-op Visit [facility] Plastic, Reconstructive & Cosmetic Surgery - [address], [address] [place] [address] Juanito Carcamo MD [address] [place] [phone] Surgery follow-up (Primary Dx) Social History [...] of this encounter Progress Notes * Katia Brown RN - 02/05/2021 1300 EDT Examination chaperoned by KATIA BROWN RN. * Juanito Carcamo MD FACS - 02/05/2021 1300 EDT Austin is here for her first fill of her bilateral tissue expanders. After verbal informed consent was obtained the port was located magnetically and marked. A chloraprep was used for sterilization. Using standard sterile technique and a closed system the port was accessed and the door to door selling agent filled with 75 cc of injectable saline bilaterally. The patient tolerated the procedure well. Access sites were dressed with spot bandaids to be removed tomorrow. Totals were recorded on the flow sheet. She now has fills of 325 cc's bilaterally. Signs and symptoms of infection were discussed. She will followup in 2-3 weeks. She is also interested in discussing JANNETTE flap reconstruction. We will discussed this at a later date. I have asked for a 45-minute appointment to have this discussion. documented in this encounter Plan of Treatment Upcoming Encounters Date Type Department Care Team ([facility] st Contact Info) Description 01/31/2024 13:40 EDT Office Visit [facility] Surgical Oncology - [address] [address] Maeve Morales, 111 [facility], Level [address] [place] [phone] documented as of this encounter Visit Diagnoses Diagnosis Surgery follow-up- Primary Follow-up examination, following unspecified surgery documented in this encounter Care Teams Metal Die Finisher Relationship Specialty Start Date End Date Batsheva Lira FNP [address] [phone] PCP - General 02/19/20 07/21/22 documented as of this encounter
--- OUTSIDE RECORDS SUMMARY | 2023-12-10 17:41 | XMS_ITS | Encounter Summary ---
Author Organization [facility] Address [address] [place] [address] Care Team Providers Care Truckload Owner Operator Name Role Phone Batsheva Lira JOHN Primary Care Provider [phone] Encounter Details Date Type Department Care Team (Late st Contact Info) Description 03/03/2021 Documentation Visit [facility] Cancer Center Hematology & Oncology - [facility] [address] [place] [address] Edinson Lorenzana LICSW Social History Tobacco Use [...] Progress Notes * Edinson Lorenzana LICSW - 03/03/2021 2026 EDT SW F/U Visit Presenting Issue Austin and I met today as planned. She showed me the SSI report she received and she noted several areas that had the wrong information. She plans to call her SS CM Miss Dunbar to ask if they want her to send the report back w/ the corrections or if they need to take this information over the phone. She also plans to let the CM know that she is receiving reach up now. We reviewed the work history and functional report and we discussed what they look for on these reports. Austin is going to complete them independently. We discussed the Rental Assistance program again. Pt plans to still pursue this and I will help as needed. Pt was provided $50 in gas assistance from [employer] and $100 in Visa cards from the [facility] w/ the financial hardship. Person Centered Goals SSDI/SSI Rental assistance program Plan Continue to support the pt with goals identified. Edinson COON documented in this encounter Plan of Treatment Upcoming Encounters Date Type Department Care Team (Late st Contact Info) Description 01/31/2024 13:40 EDT Office Visit [facility] Surgical Oncology - [address] [address] Maeve Morales, DO 111 [facility], [address] [place] [phone] documented as of this encounter Visit Diagnoses Not on filedocumented in this encounter Care Teams Truckload Owner Operator Relationship Specialty Start Date End Date Batsheva Lira FNP [address] [phone] PCP - General 02/19/20 07/21/22 documented as of this encounter
--- OUTSIDE RECORDS SUMMARY | 2023-12-10 17:41 | XMS_ITS | Encounter Summary ---
Author Organization [facility] Address [address] [place] [address] Care Team Providers Care Fisheries Director Name Role Phone Batsheva Lira JOHN Primary Care Provider [phone] Reason for Visit * Reason Comments Follow-up * Consult (Routine) - Order Cancelled Specialty Diagnoses / Procedures Referred By Jen gonzáles Referred To Contact Hematology and Oncology Diagnoses Malignant neoplasm of female breast, unspecified estrogen receptor status, unspecified laterality, unspecified site of breast ([facility]) [place] [address] [place] [phone] [facility] Ep2 Hem/Onc [address] [place] [address] Referral ID Status Reason Start Date Expiration Date Visits Requested Visits Authorized [id number] Order Cancelled Specialty Services Required 07/15/2020 1 1 Encounter Details Date Type Department Care Team (Late st Contact Info) Description 03/09/2021 14:00 EDT Telemedicine [facility] Cancer Center Hematology & Oncology - [address] [phone] Yulissa Martines, [facility] [address] [facility] [address] [place] [phone] Adjustment reaction with anxiety (Primary Dx) Social [...] Info) Description 01/31/2024 13:40 EDT Office Visit [facility] Surgical Oncology - [address] [address] Maeve Morales, DO 111 [facility], [facility], Level [address] [place] [address] documented as of this encounter Visit Diagnoses Diagnosis Adjustment reaction with anxiety- Primary Adjustment disorder with anxiety documented in this encounter Care Teams Fisheries Director Relationship Specialty Start Date End Date Batsheva Lira FNP [address] [phone] PCP - General 02/19/20 07/21/22 documented as of this encounter
--- OUTSIDE RECORDS SUMMARY | 2023-12-10 17:41 | XMS_ITS | Encounter Summary ---
Author Organization [facility] Address [address] [place] [address] Care Team Providers Care Purification Director Name Role Phone Batsheva Lira JOHN Primary Care Provider [phone] Reason for Visit * Reason Onset Date Comments Social Work 01/29/2021 Encounter Details Date Type Department Care Team (Late st Contact Info) Description 01/29/2021 Telephone [facility] Cancer Center Hematology & Oncology - [facility] [address] [place], [place] [phone] Veronique Dye Social Work Social History Tobacco Use Types Packs/Day Years [...] have Coronavirus / COVID-19? No / Unsure 01/12/2021 11:20 EDT documented as of this encounter Functional [...] Miscellaneous Notes * Telephone Encounter - Veronique Dye - 01/29/2021 1229 EDT Case discussion with my colleagues of whether pt should apply for SSI/SSDI based on her triple negative breast cancer having completed 4 cycles of Taxol and carboplatinum. She now has residual disease and lack of clinical response per Dr. Conde's note in Epic on 01/06/21. Pt will start adjuvant capecitabine chemotherapy. I spoke with pt today and she would like to proceed with applying for SSI/SSDI. She's worried aboutside effects of chemo and/or where she would work with being immunocompromised. Discussed the difference between SSI & SSDI and options for applying. I shared with pt the SHAGGY Aguilar is available to help her if interested. She is, and is open to having [facility] call herto set up a time to apply. Pt feels good with moving forward with this plan. No other needs at this time. Plan- Referral to [facility] documented in this encounter Plan of Treatment Upcoming Encounters Date Type Department Care Team (Late st Contact Info) Description 01/31/2024 13:40 EDT Office Visit [facility] Surgical Oncology - Main [address] [address] Maeve Morales, DO 111 [facility], Level 2 [place] [phone] documented as of this encounter Visit Diagnoses Not on filedocumented in this encounter Care Teams Purification Director Relationship Specialty Start Date End Date Batsheva Lira FNP [address] [phone] PCP - General 02/19/20 07/21/22 documented as of this encounter
--- OUTSIDE RECORDS SUMMARY | 2023-12-10 17:41 | XMS_ITS | Encounter Summary ---
Author Organization [facility] Address [address] [place] [address] Care Team Providers Care Open Tenter Operator Name Role Phone Batsheva Lira JOHN Primary Care Provider [phone] Encounter Details Date Type Department Care Team (Late st Contact Info) Description 03/23/2021 8:30 EST Phlebotomy Only [facility] 2 Phlebotomy [address] [place] [address] Open Tenter Operator, Acc Phlebotomy Malignant neoplasm of right breast in female, estrogen receptor negative, unspecified site of breast (HCC-CMS) (HCC) (HCC-CMS) Social History Tobacco Use [...] Info) Description 01/31/2024 13:40 EDT Office Visit [facility] Surgical Oncology - [address] [phone] Maeve Morales, [address], [address] [place] [address] documented as of this encounter Procedures Procedure Name Priority Date/Time Associated Diagnosis Comments COMPLETE BLOOD COUNT AND DIFFERENTIAL STAT 03/23/2021 8:44 EST Malignant neoplasm of right breast in female, estrogen receptor negative, unspecified site of breast (HCC-CMS) (HCC) (HCC-CMS) COMPREHENSIVE METABOLIC PANEL (CMP) STAT 03/23/2021 8:44 EST Malignant neoplasm of right breast in female, estrogen receptor negative, unspecified site of breast (HCC-CMS) (HCC) (HCC-CMS) documented in this encounter Results * (ABNORMAL) COMPREHENSIVE METABOLIC PANEL (CMP) (03/23/2021 8:44 EST) Sodium 138 136 - 145 mmol/L 03/23/2021 9:11 [facility] Potassium 4.3 3.5 - 5.0 mmol/L 03/23/2021 9:11 [facility] Chloride 102 96 - 110 mmol/L 03/23/2021 9:11 [facility] CO2 Total 24 22 - 32 mmol/L 03/23/2021 9:11 [facility] Glucose 221(H) 70 - 100 mg/dL 03/23/2021 9:11 [facility] BUN 8(L) 10 - 26 mg/dL 03/23/2021 9:11 [facility] Creatinine 0.46(L) 0.52 - 1.04 mg/dL 03/23/2021 9:11 [facility] eGFR 121 >60 mL/min/1.7 3m2 03/23/2021 9:11 [facility] Total Protein 7.4 6.3 - 8.2 g/dL 03/23/2021 9:11 [facility] Albumin 4.8 3.4 - 4.9 g/dL 03/23/2021 9:11 [facility] Alkaline Phosphatase 174(H) 38 - 126 U/L 03/23/2021 9:11 [facility] AST 53(H) 15 - 46 U/L 03/23/2021 9:11 [facility] ALT 73(H) <35 U/L 03/23/2021 9:11 [facility] Bilirubin, Total <0.5 <1.4 mg/dL 03/23/20 9:11 [facility] Calcium 9.7 8.5 - 10.5 mg/dL 03/23/2021 9:11 [facility] Albumin/Globulin Ratio 1.8 1.0 - 2.5 03/23/2021 9:11 [facility] Anion Gap 12 8 - 16 03/23/2021 9:11 [facility] Blood VENOUS BLOOD / Unknown Venipuncture / Unknown 03/23/2021 8:44 EST 03/23/2021 8:46 EST Queenie Conde MD CHEMISTRY & BLOOD GA S ORDERABLES [facility] [address] [place] [address] * (ABNORMAL) COMPLETE BLOOD COUNT AND DIFFERENTIAL (03/23/2021 8:44 EST) WBC 5.62 4.00 - 12.40 K/cmm 03/23/2021 9:25 [facility] RBC 5.09(H) 3.86 - 5.04 M/cmm 03/23/2021 9:25 [facility] Hemoglobin 14.8 11.6 - 15.2 gm/dL 03/23/2021 9:25 [facility] HCT 45.1(H) 34.9 - 44.4 % 03/23/2021 9:25 [facility] MCV 89 81 - 98 fl 03/23/2021 9:25 [facility] MCH 29.1 26.7 - 33.3 pg 03/23/2021 9:25 [facility] MCHC 32.8 32.1 - 35.9 gm/dL 03/23/2021 9:25 [facility] RDW-CV 13.9 <14.7 % 03/23/2021 9:25 [facility] RDW-SD 43.6 <50.4 fl 03/23/2021 9:25 [facility] PLT 223 141 - 377 K/cmm 03/23/2021 9:25 [facility] MPV 9.5 9.5 - 12.7 fl 03/23/2021 9:25 [facility] % Neutrophils 62.6 % 03/23/2021 9:25 [facility] % Lymphocytes 21.9 % 03/23/2021 9:25 [facility] % Monocytes 9.1 % 03/23/2021 9:25 [facility] % Eosinophils 5.3 % 03/23/2021 9:25 [facility] % Basophils 0.9 % 03/23/2021 9:25 [facility] % Immature Grans 0.2 % 03/23/20 9:25 [facility] Absolute Neutrophils 3.52 2.20 - 8.85 K/cmm 03/23/2021 9:25 [facility] Absolute Lymphocytes 1.23 1.09 - 3.30 K/cmm 03/23/2021 9:25 [facility] Absolute Monocytes 0.51 0.10 - 0.80 K/cmm 03/23/2021 9:25 [facility] Absolute Eosinophils 0.30 0.03 - 0.61 K/cmm 03/23/2021 9:25 [facility] ABS Basophils 0.05 0.01 - 0.11 K/cmm 03/23/2021 9:25 [facility] Absolute Immature Grans 0.01 0.00 - 0.06 K/cmm 03/23/2021 9:25 [facility] Type of Differential: Auto 03/23/2021 9:25 [facility] Blood VENOUS BLOOD / Unknown Venipuncture / Unknown 03/23/2021 8:44 EST 03/23/2021 8:46 EST Queenie Conde MD PACKAGES & DNA PROBE ORDERABLES Performing Organization Address City/State/[facility] Co de Phone Number [facility] [address] [place] [address] documented in this encounter Visit Diagnoses Diagnosis Malignant neoplasm of right breast in female, estrogen receptor negative, unspecified site of breast ([facility]) documented in this encounter Care Teams Open Tenter Operator Relationship Specialty Start Date End Date Batsheva Lira FNP [address] [phone] PCP - General 02/19/20 07/21/22 documented as of this encounter
--- OUTSIDE RECORDS SUMMARY | 2023-12-10 17:41 | XMS_ITS | Encounter Summary ---
Author Organization [facility] Address [address] [place] [address] Care Team Providers Care Director Of Convention Services Name Role Phone Batsheva Lira JOHN Primary Care Provider [phone] Reason for Visit * Reason Onset Date Comments Appointment Related 03/26/2021 Encounter Details Date Type Department Care Team (Late st Contact Info) Description 03/26/2021 Telephone [facility] Medicine [address] [address] Physical, Therapy Appointment Related Social History Tobacco Use Types [...] * Telephone Encounter - Sera Langston - 03/26/2021 1351 EST [facility] [address] [address] Telephone Intake Information for Scheduling NEW Patients for Therapy Script/referral: In EPIC Referral date: 03/26/21 Referring Provider: Prema Honeycutt PA-C Diagnosis: Shoulder pain Vp Delivery needed? No Primary Insurance: Medicaid ACO Secondary Insurance: None If Medicaid (age 21+): Have you been seen for therapy since May first of this year? No Notes: Patient was evaluated for Steps to Wellness (STW) program by Katia Hughes PT and was scheduled to begin on 03/31/21. Start date for STW program has been deferred until patient has been cleared by PT to participate inthis program. Only 2 follow ups scheduled. Sera aLngston 03/26/2021 documented in this encounter Plan of Treatment Upcoming Encounters Date Type Department Care Team (Late st Contact Info) Description 01/31/2024 13:40 EDT Office Visit [facility] Surgical Oncology - Main [address] [address] Maeve Morales, DO 111 [facility], [facility], Level [address] [place] [phone] documented as of this encounter Visit Diagnoses Not on filedocumented in this encounter Care Teams Director Of Convention Services Relationship Specialty Start Date End Date Batsheva Lira FNP [address] [phone] PCP - General 02/19/20 07/21/22 documented as of this encounter
--- OUTSIDE RECORDS SUMMARY | 2023-12-10 17:41 | XMS_ITS | Encounter Summary ---
Author Organization [facility] Address [address] [place] [address] Care Team Providers Care Alarm Mechanism Adjuster Name Role Phone Batsheva Lira JOHN Primary Care Provider [phone] Encounter Details Date Type Department Care Team (Late st Contact Info) Description 03/17/2021 Documentation Visit [facility] Cancer Center Hematology & Oncology - [facility] [address] [place] [address] Edinson Lorenzana LICSW Social History Tobacco Use [...] Progress Notes * Edinson Lorenzana LICSW - 03/17/2021 1500 EDT SW F/U Visit Presenting Issue Pt and I met today while she was here for an appointment. She shared that she was denied SSI. She hasn't received the report yet which explains why, when she does she's going to update me so we can look at the explanation together. We suspect that the [employer] is making her ineligible. She was approved for the rental assistance program. Person Centered Goals Rental assistance SSDI/SSI Plan Pt will call me when she receives the SSI explanation. Edinson COON documented in this encounter Plan of Treatment Upcoming Encounters Date Type Department Care Team (Late st Contact Info) Description 01/31/2024 13:40 EDT Office Visit [facility] Surgical Oncology - [address] [address] Maeve Morales, 111 [facility], Level [address] [place] [phone] documented as of this encounter Visit Diagnoses Not on filedocumented in this encounter Care Teams Alarm Mechanism Adjuster Relationship Specialty Start Date End Date Batsheva Lira FNP [address] [phone] PCP - General 02/19/20 07/21/22 documented as of this encounter
--- OUTSIDE RECORDS SUMMARY | 2023-12-10 17:41 | XMS_ITS | Encounter Summary ---
Author Organization [facility] Address [address] [place] [address] Care Team Providers Care Agency Sales Representative Name Role Phone Batsheva Lira JOHN Primary Care Provider [phone] Encounter Details Date Type Department Care Team (Late st Contact Info) Description 02/25/2021 14:00 EDT Phlebotomy Only [facility] ED Center 2 Phlebotomy [address] [place] [address] Inspector Machined [employer], Acc Phlebotomy LFTs abnormal Social History Tobacco Use Types [...] Info) Description 01/31/2024 13:40 EDT Office Visit [facility] Surgical Oncology - [address] [address] Maeve Moraels DO 111 [facility], Level 2 [place] [address] documented as of this encounter Procedures Procedure Name Priority Date/Time Associated Diagnosis Comments HEPATITIS C AB W REFLEX TO HCV RNA BY PCR Routine 02/25/2021 13:55 EDT LFTs abnormal documented in this encounter Results * HEPATITIS C AB W REFLEX TO HCV RNA BY PCR (02/25/2021 13:55 EDT) Hep C Antibody Negative Negative 02/26/2021 11:03 EDT [facility] Blood VENOUS BLOOD / Unknown Venipuncture / Unknown 02/25/2021 13:55 EDT 02/25/2021 14:13 EDT Hernando Diaz MD PhD CHEMISTRY & BLO OD GAS ORDERABLES [facility] [address] [place] [address] documented in this encounter Visit Diagnoses Diagnosis LFTs abnormal Other abnormal blood chemistry documented in this encounter Care Teams Agency Sales Representative Relationship Specialty Start Date End Date Batsheva Lira FNP [address] [address] PCP - General 02/19/20 07/21/22 documented as of this encounter
--- OUTSIDE RECORDS SUMMARY | 2023-12-10 17:41 | XMS_ITS | Encounter Summary ---
Author Organization [facility] Address [address] [place] [address] Care Team Providers Care Paper Plate Machine Tender Name Role Phone Batsheva Lira JOHN Primary Care Provider [phone] Reason for Visit * Reason Comments New Patient Visit * Consult (Routine) - Order Cancelled Specialty Diagnoses / Procedures Referred By Jen gonzáles Referred To Contact Hematology and Oncology Diagnoses Malignant neoplasm of female breast, unspecified estrogen receptor status, unspecified laterality, unspecified site of breast ([facility] [address] [place] [address] [facility] Ep2 Hem/Onc [address] [place] [id number] Referral ID Status Reason Start Date Expiration Date Visits Requested Visits Authorized [id number] Order Cancelled Specialty Services Required 07/15/2020 1 1 Encounter Details Date Type Department Care Team (Late st Contact Info) Description 02/03/2021 11:00 EDT Telemedicine [facility] Cancer [facility] Hematology & Oncology - [address] [phone] Yulissa Martines, [facility] 111 [facility], [facility] 2 [place] [phone] Adjustment reaction with anxiety (Primary Dx) Social [...] [facility] Surgical Oncology - [address] [address] Maeve Morales, DO 111 [facility], [facility], Level 2 [place] [address] documented as of this encounter Visit Diagnoses Diagnosis Adjustment reaction with anxiety- Primary Adjustment disorder with anxiety documented in this encounter Care Teams Paper Plate Machine Tender Relationship Specialty Start Date End Date Batsheva Lira FNP [address] [phone] PCP - General 02/19/20 07/21/22 documented as of this encounter
--- OUTSIDE RECORDS SUMMARY | 2023-12-10 17:41 | XMS_ITS | Encounter Summary ---
Author Organization [facility] Address [address] [place] [address] Care Team Providers Care Mva Operator Name Role Phone Batsheva Lira JOHN Primary Care Provider [phone] Encounter Details Date Type Department Care Team (Latest Contact Info) Description 02/27/2021 Travel Social History Tobacco Use Types Packs/Day [...] Visit [facility] Surgical Oncology - [address] [address] Maeve Morales, 111 [facility], [facility], Level [address] [place] [phone] documented as of this encounter Visit Diagnoses Not on filedocumented in this encounter Care Teams Mva Operator Relationship Specialty Start Date End Date Batsheva Lira FNP [address] [phone] PCP - General 02/19/20 07/21/22 documented as of this encounter
--- OUTSIDE RECORDS SUMMARY | 2023-12-10 17:41 | XMS_ITS | Encounter Summary ---
Author Organization [facility] Address [address] [place] [address] Care Team Providers Care Agency Legal Counsel Name Role Phone Batsheva Lira JOHN Primary Care Provider [phone] Reason for Visit * Reason Comments Follow-up * Consult (Routine) - Order Cancelled Specialty Diagnoses / Procedures Referred By Jen gonzáles Referred To Contact Hematology and Oncology Diagnoses Malignant neoplasm of female breast, unspecified estrogen receptor status, unspecified laterality, unspecified site of breast ([facility]) [place] [address] [place] [address] [facility] Ep2 Hem/Onc [address] [place] [address] Referral ID Status Reason Start Date Expiration Date Visits Requested Visits Authorized [id number] Order Cancelled Specialty Services Required 07/15/2020 1 1 Encounter Details Date Type Department Care Team (Late st Contact Info) Description 03/23/2021 14:00 EST Telemedicine [facility] Cancer Center Hematology & Oncology - [address] [phone] Yulissa Martines, [facility] 111 [facility], [facility] 2 [place] [phone] Adjustment reaction with anxiety (Primary Dx) Social [...] [facility] - [address] [address] Maeve Morales, DO 111 [facility], [facility], Level 2 [place] [address] documented as of this encounter Visit Diagnoses Diagnosis Adjustment reaction with anxiety- Primary Adjustment disorder with anxiety documented in this encounter Care Teams Agency Legal Counsel Relationship Specialty Start Date End Date Batsheva Lira FNP [address] [address] PCP - General 02/19/20 07/21/22 documented as of this encounter
--- OUTSIDE RECORDS SUMMARY | 2023-12-10 17:41 | XMS_ITS | Encounter Summary ---
Author Organization [facility] Address [address] [place] [address] Care Team Providers Care Accounting Machine Mechanic Name Role Phone Batsheva Lira JOHN Primary Care Provider [phone] Encounter Details Date Type Department Care Team (Late st Contact Info) Description 01/28/2021 Specialty Pharmacy [facility] - [facility] [address] [place] [address] Petros Vega, [facility] Social History Tobacco Use Types Packs/Day [...] Info) Description 01/31/2024 13:40 EDT Office Visit [facility] Surgical Oncology - [address] [address] Maeve Morales, DO 111 [facility] [place] [facility], Level 2 [place] [phone] documented as of this encounter Visit Diagnoses Not on filedocumented in this encounter Care Teams Accounting Machine Mechanic Relationship Specialty Start Date End Date Batsheva Lira FNP [address] [phone] PCP - General 02/19/20 07/21/22 documented as of this encounter
--- OUTSIDE RECORDS SUMMARY | 2023-12-10 17:41 | XMS_ITS | Encounter Summary ---
Author Organization [facility] Address [address] [place] [address] Care Team Providers Care Water Superintendent Name Role Phone Batsheva Lira JOHN Primary Care Provider [phone] Reason for Referral * Radiology Services (Routine/Next Available) - Authorization Not Required Specialty Diagnoses / Procedures Referred By Contac t Referred To Contact Diagnoses Malignant 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, estrogen receptor negative (HCC-CMS) Procedures [place] [address] [address] Referral ID Status Reason Start Date Expiration Date Visits Requested Visits Authorized [id number] Authorization Not Required 02/06/2021 1 1 Reason for Visit * Radiology Services (Routine/Next Available) - Authorization Not Required Specialty Diagnoses / Procedures Referred By Contac t Referred To Contact Diagnoses Malignant 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, estrogen receptor negative (HCC-CMS) Procedures [place] [address] [address] Referral ID Status Reason Start Date Expiration Date Visits Requested Visits Authorized [id number] Authorization Not Required 02/06/2021 1 1 Encounter Details Date Type Department Care Team (Latest Contact Info) Description 02/13/2021 18:57 EDT - 02/13/2021 23:59 EDT Hospital Encounter [facility] Radiology CT - Main [place] [address] [place] [phone] Malignant 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, estrogen receptor negative (HCC-CMS) (HCC) (HCC-CMS) Discharge Disposition: Home or Self Care Social [...] Sig Dispensed Refills Start Date End Date acetaminophen (TYLENOL) 500 mg tablet Take 2 Tablets by mouth every 6 hours. 12/25/2020 03/26/2021 amLODIPine (NORVASC) 2.5 mg tablet Take 2.5 mg by mouth daily. 01/11/2022 capecitabine (XELODA) 500 mg tablet Take 4 Tablets by mouth 2 times daily. Take for 14 days, then stop for 7 days. 112 Tablet 5 02/06/2021 04/06/2021 cephalexin (KEFLEX) 500 mg capsule Take 1 [...] needed for Pain. Daily Max: 24 mg 30 Tablet 12/25/2020 03/26/2021 INTRAUTERINE DEVICE, IUD, INTRAUTERINE by intrauterine route. 01/11/2022 lidocaine-prilocaine (EMLA) cream Apply to port site and cover, 1 hr before planned port access 25 g 1 08/13/2020 03/26/2021 omeprazole (PRILOSEC) 40 mg capsule TAKE 1 CAPSULE BY MOUTH EVERYDAY AT BEDTIME 90 capsule 3 12/30/2020 03/26/2021 triamcinolone acetonide (KENALOG) 0.1 % pasteIndications:Jennifer gnant 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, estrogen receptor negative (HCC-CMS) Apply to affected area up to three times daily as needed for pain. 1 Tube 11/07/2020 03/26/2021 documented as of this encounter Discharge Disposition Disposition Code Departure Means Destination Home or Self Care documented in this encounter Plan of Treatment Upcoming Encounters Date Type Department Care Team (Late st Contact Info) Description 01/31/2024 13:40 EDT Office Visit [facility] Surgical Oncology - Main [address] [address] Maeve Morales DO 111 [facility], [facility], Level 2 [place] [phone] documented as of this encounter Procedures Procedure Name Priority Date/Time Associated Diagnosis Comments CT ABDOMEN (ONLY) W CONTRAST Routine 02/13/2021 19:37 EDT Malignant 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, estrogen receptor negative (HCC-CMS) (HCC) (HCC-CMS) documented in this encounter Results * CT ABDOMEN W CONTRAST (02/13/2021 19:37 EDT) Anatomical Region Laterality Modality Body, Abdomen Computed Tomogra phy 02/16/2021 11:5 2 EDT Impressions 02/16/2021 11:52 EDT 1. No metastatic disease or lymphadenopathy identified in the abdomen. 2. Hepatomegaly and hepatic steatosis appear to have progressed since prior CT. 3. Status post cholecystectomy. Narrative 02/16/2021 11:[address] ABDOMEN W CONTRAST ??02/13/2021 7:30 PM Signs and Symptoms/Comments: ?? hx of breast cancer, rising liver enzymes Technique: CT of the abdomen was performed following the administration intravenous contrast; coronal and sagittal multiplanar reconstructions generated. Comparison: July 18, 2020 Findings: Lung bases: Unremarkable lung bases. Hepatobiliary: Hepatomegaly and hepatic steatosis, appears to progressed since prior. No suspicious hepatic lesion identified. Status post cholecystectomy. Normal caliber biliary tree. Spleen, pancreas, adrenal glands: No suspicious lesion. Kidneys, proximal ureters: No suspicious renal lesion. No hydroureteronephrosis. Bowel: Visualized bowel demonstrates no obstruction or acute inflammatory changes. Normal appendix. Peritoneal cavity: No free fluid or free air. Lymphovascular: Scattered aortic atherosclerotic plaque, without aneurysmal dilation. Replaced right hepatic artery off the SMA. Accessory left hepatic artery off the left gastric. No pathologically enlarged lymph nodes in the abdomen. Abdominal wall: No bowel containing hernia. Musculoskeletal: No suspicious osseous lesion. L5-S1 facet hypertrophy on the right. Civil Design Technician: No additional findings. Procedure Note Deni Mercado MD - 02/16/2021 CT ABDOMEN W CONTRAST 02/13/2021 7:30 PM Signs and Symptoms/Comments: hx of breast cancer, rising liver enzymes Technique: CT of the abdomen was performed following the administration intravenouscontrast; coronal and sagittal multiplanar reconstructions generated. Comparison: July 18, 2020 Findings: Lung bases: Unremarkable lung bases. Hepatobiliary: Hepatomegaly and hepatic steatosis, appears to progressedsince prior. No suspicious hepatic lesion identified. Status postcholecystectomy. Normal caliber biliary tree. Spleen, pancreas, adrenal glands: No suspicious lesion. Kidneys, proximal ureters: No suspicious renal lesion. Nohydroureteronephrosis. Bowel: Visualized bowel demonstrates no obstruction or acute inflammatorychanges. Normal appendix. Peritoneal cavity: No free fluid or free air. Lymphovascular: Scattered aortic atherosclerotic plaque, withoutaneurysmal dilation. Replaced right hepatic artery off the SMA. Accessoryleft hepatic artery off the left gastric. No pathologically enlarged lymphnodes in the abdomen. Abdominal wall: No bowel containing hernia. Musculoskeletal: No suspicious osseous lesion. L5-S1 facet hypertrophy onthe right. Civil Design Technician: No additional findings. IMPRESSION 1. No metastatic disease or lymphadenopathy identified in the abdomen. 2. Hepatomegaly and hepatic steatosis appear to have progressed sinceprior CT. 3. Status post cholecystectomy. Queenie Conde MD IMG CT ORDERABLES documented in this encounter Visit Diagnoses Diagnosis Malignant 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, estrogen receptor negative (HCC-CMS) documented in this encounter Administered Medications Inactive Administered Medications - up to 3 most recent administrations Medication Order MAR Action Action Date Dose Rate Site iohexoL (OMNIPAQUE 350) solution 100 mL 100 mL, intravenous, Once in imaging, 1 dose, Starting on Tue02/13/21 at 1918, Until Tue02/13/21 at 1937, Routine, Imaging Protocol Orders Given 02/13/2021 19:37 EDT 100 mL documented in this encounter Orders Medications Ordered That Juanito ht Not Have Been Administered Count Last Ordered Date First Ordered Date iohexoL (OMNIPAQUE 350) solution 100 mL 1 1 documented in this encounter Care Teams Water Superintendent Relationship Specialty Start Date End Date Batsheva Lira FNP [address] [phone] PCP - General 02/19/20 07/21/22 documented as of this encounter
--- OUTSIDE RECORDS SUMMARY | 2023-12-10 17:41 | XMS_ITS | Encounter Summary ---
Author Organization [facility] Address [address] [place] [address] Care Team Providers Care Beauty Sales Advisor Name Role Phone Batsheva Lira JOHN Primary Care Provider [phone] Reason for Visit * Reason Onset Date Comments Follow-up 03/19/2021 Encounter Details Date Type Department Care Team (Late st Contact Info) Description 03/19/2021 Telephone [facility] Hematology & Oncology - [facility] [address] [place], [place] [phone] Edinson Lorenzana, [employer] SUPERVISOR Follow-up Social History Tobacco Use Types Packs/Day [...] Telephone Encounter - Edinson Lorenzana LICSW - 03/19/2021 0942 EDT SW F/U Visit Presenting Issue Pt sent me the notices she received from [facility] regarding the denial for SSI and SSDI. They felt that she has completed reconstruction surgery and does not have a recurrence for cancer and therefore work. I explained to the pt that she has the option to complete the two forms to request a reconsideration ([id number] and [id number]). She has the option to consult w/ an deputy attorney general now or she could wait for thenext appeal process if needed. Pt is going to wait for the next appeal step if needed to consult anattorney. I've sent her the two forms to review and we're planning a time to meet next week. Consulting provider and RN if a medical letter is reasonable to accompany these two forms to request the reconsideration. [employer] SSDI appeal Plan Waiting to schedule meeting w/ pt to complete reconsideration requests. Edinson COON ADDENDUM 12:00 Pt and I planned to meet by zogarima on at 9:30, link was sent to the pt documented in this encounter Plan of Treatment Upcoming Encounters Date Type Department Care Team (Late st Contact Info) Description 01/31/2024 13:40 EDT Office Visit [facility] Surgical Oncology - [facility] [address] [place], [place] [address] Maeve Morales, [address], [address] [place] [phone] documented as of this encounter Visit Diagnoses Not on filedocumented in this encounter Care Teams Beauty Sales Advisor Relationship Specialty Start Date End Date Batsheva Lira FNP [address] [phone] PCP - General 02/19/20 07/21/22 documented as of this encounter
--- OUTSIDE RECORDS SUMMARY | 2023-12-10 17:41 | XMS_ITS | Encounter Summary ---
Author Organization [facility] Address [address] [place] [address] Care Team Providers Care Photogrammetry Airplane Pilot Name Role Phone Batsheva Lira JOHN Primary Care Provider [phone] Reason for Visit * Reason Onset Date Comments Appointment Related 03/25/2021 Encounter Details Date Type Department Care Team (Late st Contact Info) Description 03/25/[address] [facility] Oncology Rehabilitation - [facility] [address] [place] [address] Vivian Melara Appointment Related Social History Tobacco [...] * Telephone Encounter - Sera Langston - 03/25/2021 1121 EST A message was left to confirm participation in the Virtual Steps to Wellness program beginning on 03/31/21. Addendum: The patient called to tentatively confirm participation. She states she has a sore shoulder and has poor range of motion. She has been seeing a chiropractor 1x/week and will consult with this provider. She will contact [phone] if she needs to move out her start date due to her shoulder pain. documented in this encounter Plan of Treatment Upcoming Encounters Date Type Department Care Team ([facility] st Contact Info) Description 01/31/2024 13:[address] [facility] Surgical Oncology - [address] [phone] Maeve Morales, 111 [facility], [facility], Level 2 [place] [address] documented as of this encounter Visit Diagnoses Not on filedocumented in this encounter Care Teams Photogrammetry Airplane Pilot Relationship Specialty Start Date End Date Batsheva Lira FNP [address] [address] PCP - General 02/19/20 07/21/22 documented as of this encounter
--- OUTSIDE RECORDS SUMMARY | 2023-12-10 17:41 | XMS_ITS | Encounter Summary ---
Author Organization [facility] Address [address] [place] [address] Care Team Providers Care Counter Pocket Sewer Name Role Phone Batsheva Lira JOHN Primary Care Provider [phone] Encounter Details Date Type Department Care Team (Late st Contact Info) Description 03/13/2021 Specialty Pharmacy [facility] Ambulatory Pharmacy - [facility] [address] [place], [place] [address] Petros Vega, [facility] Social History Tobacco Use Types [...] Info) Description 01/31/2024 13:40 EDT Office Visit [facility] Surgical Oncology - [address] [phone] Maeve Morales, DO 111 [facility], Level [address] [place] [phone] documented as of this encounter Visit Diagnoses Not on filedocumented in this encounter Care Teams Counter Pocket Sewer Relationship Specialty Start Date End Date Batsheva Lira FNP [address] [phone] PCP - General 02/19/20 07/21/22 documented as of this encounter
--- OUTSIDE RECORDS SUMMARY | 2023-12-10 17:41 | XMS_ITS | Encounter Summary ---
Author Organization [facility] Address [address] [place] [address] Care Team Providers Care Portable Router Operator Name Role Phone Batsheva Lira JOHN Primary Care Provider [phone] Encounter Details Date Type Department Care Team (Late st Contact Info) Description 03/26/2021 Orders Only [facility] Hematology & Oncology - [address] [address] Liat Honeycutt PACalinC [address] [place] [address], Level [address] [place] [address] Malignant 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, estrogen receptor negative (HCC-CMS) (HCC) (HCC-CMS) (Primary Dx); Acute pain of right shoulder Social History Tobacco Use Types Packs/Day Years [...] Office Visit [facility] Surgical Oncology - [address] [address] Maeve Morales, 111 [facility], [facility], Level [address] [place] [address] documented as of this encounter Visit Diagnoses Diagnosis Malignant 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, estrogen receptor negative (HCC-CMS)- Primary Acute pain of right shoulder documented in this encounter Care Teams Portable Router Operator Relationship Specialty Start Date End Date Batsheva Lira FNP [address] [address] PCP - General 02/19/20 07/21/22 documented as of this encounter
--- OUTSIDE RECORDS SUMMARY | 2023-12-10 17:41 | XMS_ITS | Encounter Summary ---
Author Organization [facility] Address [address] [place] [address] Care Team Providers Care Insurance Verification Specialist Name Role Phone Batsheva Lira JOHN Primary Care Provider [phone] Encounter Details Date Type Department Care Team (Late st Contact Info) Description 03/11/2021 10:15 EDT Phlebotomy Only [facility] ED Center 2 Phlebotomy [address] [place] [address] Offal Roller, Acc Phlebotomy Malignant neoplasm of right breast [...] [facility] Surgical Oncology - [address] [address] Maeve Morales, [address], [address] 2 [place] [address] documented as of this encounter Procedures Procedure Name Priority Date/Time Associated Diagnosis Comments COMPLETE BLOOD COUNT AND DIFFERENTIAL STAT 03/11/2021 10:21 EDT Malignant neoplasm of right breast in female, estrogen receptor negative, unspecified site of breast (HCC-CMS) (HCC) (HCC-CMS) COMPREHENSIVE METABOLIC PANEL (CMP) STAT 03/11/2021 10:21 EDT Malignant neoplasm of right breast in female, estrogen receptor negative, unspecified site of breast (HCC-CMS) (HCC) (HCC-CMS) documented in this encounter Results * (ABNORMAL) COMPREHENSIVE METABOLIC PANEL (CMP) (03/11/2021 10:21 EDT) Sodium 139 136 - 145 mmol/L 03/11/2021 10:52 [facility] Potassium 4.2 3.5 - 5.0 mEq/L 03/11/2021 10:52 [facility] Chloride 103 96 - 110 mEq/L 03/11/2021 10:52 [facility] CO2 Total 24 22 - 32 mEq/L 03/11/2021 10:52 [facility] Glucose 177(H) 70 - 100 mg/dL 03/11/2021 10:52 [facility] BUN 8(L) 10 - 26 mg/dL 03/11/2021 10:52 [facility] Creatinine 0.43(L) 0.52 - 1.04 mg/dL 03/11/2021 10:52 [facility] eGFR 123 >60 mL/min/1.7 3m2 03/11/2021 10:52 [facility] Comment:eGFR calculated mata asif CKD-EPI equation for non- Americans. Multiply eGFR by 1.16 for patients. Total Protein 7.9 6.3 - 8.2 g/dL 03/11/2021 10:52 [facility] Albumin 4.8 3.4 - 4.9 g/dL 03/11/2021 10:52 [facility] Alkaline Phosphatase 173(H) 38 - 126 U/L 03/11/2021 10:52 [facility] AST 42 15 - 46 U/L 03/11/2021 10:52 [facility] ALT 61(H) <35 U/L 03/11/2021 10:52 [facility] Bilirubin, Total <0.5 <1.4 mg/dL 03/11/20 10:52 [facility] Calcium 10.2 8.5 - 10.5 mg/dL 03/11/2021 10:52 [facility] Albumin/Globulin Ratio 1.5 1.0 - 2.5 03/11/2021 10:52 [facility] Anion Gap 12 8 - 16 03/11/2021 10:52 [facility] Blood VENOUS BLOOD / Unknown Venipuncture / Unknown 03/11/2021 10:21 EDT 03/11/2021 10:27 EDT Queenie Conde MD CHEMISTRY & BLOOD GA S ORDERABLES Performing Organization Address City/State/[facility] Co de Phone Number [facility] [address] [place] [address] * (ABNORMAL) COMPLETE BLOOD COUNT AND DIFFERENTIAL (03/11/2021 10:21 EDT) WBC 7.46 4.00 - 12.40 K/cmm 03/11/2021 10:42 [facility] RBC 5.06(H) 3.86 - 5.04 M/cmm 03/11/2021 10:42 [facility] Hemoglobin 15.3(H) 11.6 - 15.2 gm/dL 03/11/2021 10:42 [facility] HCT 44.2 34.9 - 44.4 % 03/11/2021 10:42 [facility] MCV 87 81 - 98 fl 03/11/2021 10:42 [facility] MCH 30.2 26.7 - 33.3 pg 03/11/2021 10:42 [facility] MCHC 34.6 32.1 - 35.9 gm/dL 03/11/2021 10:42 [facility] RDW-CV 12.8 <14.7 % 03/11/2021 10:42 [facility] RDW-SD 40.3 <50.4 fl 03/11/2021 10:42 [facility] PLT 271 141 - 377 K/cmm 03/11/2021 10:42 [facility] MPV 9.4(L) 9.5 - 12.7 fl 03/11/2021 10:42 [facility] % Neutrophils 60.2 % 03/11/2021 10:42 [facility] % Lymphocytes 24.0 % 03/11/2021 10:42 EDT [facility] % Monocytes 9.5 % 03/11/2021 10:42 EDT [facility] % Eosinophils 5.1 % 03/11/2021 10:42 [facility] % Basophils 0.9 % 03/11/2021 10:42 [facility] % Immature Grans 0.3 % 03/11/20 10:42 [facility] Absolute Neutrophils 4.49 2.20 - 8.85 K/cmm 03/11/2021 10:42 [facility] Absolute Lymphocytes 1.79 1.09 - 3.30 K/cmm 03/11/2021 10:42 [facility] Absolute Monocytes 0.71 0.10 - 0.80 K/cmm 03/11/2021 10:42 [facility] Absolute Eosinophils 0.38 0.03 - 0.61 K/cmm 03/11/2021 10:42 EDT [facility] ABS Basophils 0.07 0.01 - 0.11 K/cmm 03/11/2021 10:42 [facility] Absolute Immature Grans 0.02 0.00 - 0.06 K/cmm 03/11/2021 10:42 [facility] Type of Differential: Auto 03/11/2021 10:42 [facility] Blood VENOUS BLOOD / Unknown Venipuncture / Unknown 03/11/2021 10:21 EDT 03/11/2021 10:27 EDT Queenie Conde MD PACKAGES & DNA PROBE ORDERABLES [facility] [address] [place] [address] documented in this encounter Visit Diagnoses Diagnosis Malignant neoplasm of right breast in female, estrogen receptor negative, unspecified site of breast (HCC-CMS) documented in this encounter Care Teams Insurance Verification Specialist Relationship Specialty Start Date End Date Batsheva Lira FNP [facility] [address] PCP - General 02/19/20 07/21/22 documented as of this encounter
--- OUTSIDE RECORDS SUMMARY | 2023-12-10 17:41 | XMS_ITS | Encounter Summary ---
Author Organization [facility] Address [address] [place] [address] Care Team Providers Care Finance Associate Name Role Phone Batsheva Lira JOHN Primary Care Provider [phone] Reason for Visit * Reason Onset Date Comments Appointment Related 03/26/2021 Encounter Details Date Type Department Care Team (Late st Contact Info) Description 03/26/[address] [facility] Medicine [address] [address] Physical, Therapy Appointment Related Social [...] Telephone Encounter - Sera Langston - 03/26/2021 6908 EST Due to patient's shoulder pain, patient will be evaluated by Oksana Pereyra PT before beginning theSteps to Wellness program on 03/31/21. A new start date will be assigned once patient's shoulder pain has been addressed by physical therapy. documented in this encounter Plan of Treatment Upcoming Encounters Date Type Department Care Team (Late st Contact Info) Description 01/31/2024 13:40 EDT Office Visit [facility] Surgical Oncology - [address] [phone] Maeve Morales, [address] [facility], Level 2 [place] [address] documented as of this encounter Visit Diagnoses Not on filedocumented in this encounter Care Teams Finance Associate Relationship Specialty Start Date End Date Batsheva Lira FNP [address] [address] PCP - General 02/19/20 07/21/22 documented as of this encounter
--- OUTSIDE RECORDS SUMMARY | 2023-12-10 17:41 | XMS_ITS | Encounter Summary ---
Author Organization [facility] Address [address] [place] [address] Care Team Providers Care Flare Maker Name Role Phone Batsheva Lira JOHN Primary Care Provider [phone] Reason for Visit * Reason Comments Follow-up * Consult (Routine) - Order Cancelled Specialty Diagnoses / Procedures Referred By Jen gonzáles Referred To Contact Hematology and Oncology Diagnoses Malignant neoplasm of female breast, unspecified estrogen receptor status, unspecified laterality, unspecified site of breast ([facility] [address] [place] [phone] [facility] Ep2 Hem/Onc [address] [place] [address] Referral ID Status Reason Start Date Expiration Date Visits Requested Visits Authorized [id number] Order Cancelled Specialty Services Required 07/15/2020 1 1 Encounter Details Date Type Department Care Team (Late st Contact Info) Description 02/09/2021 13:00 EDT Telemedicine [facility] Hematology & Oncology - [address] [id number] Yulissa Martines, [facility] 111 [facility], [facility] 2 [place] [phone] Adjustment reaction with anxiety (Primary Dx) Social [...] Info) Description 01/31/2024 13:40 EDT Office Visit [facility] Surgical Oncology - [address] [address] Maeve Morales, DO 111 [facility], [facility], Level 2 [place] [address] documented as of this encounter Visit Diagnoses Diagnosis Adjustment reaction with anxiety- Primary Adjustment disorder with anxiety documented in this encounter Care Teams Flare Maker Relationship Specialty Start Date End Date Batsheva Lira FNP [address] [address] PCP - General 02/19/20 07/21/22 documented as of this encounter
--- OUTSIDE RECORDS SUMMARY | 2023-12-10 17:41 | XMS_ITS | Encounter Summary ---
Author Organization [facility] Address [address] [place] [address] Care Team Providers Care Clinical Nurse Specialist Name Role Phone Batsheva Lira JOHN Primary Care Provider [phone] Reason for Visit * Reason Onset Date Comments Follow-up 01/29/2021 Encounter Details Date Type Department Care Team (Late st Contact Info) Description 01/29/2021 Telephone [facility] Hematology & Oncology - [facility] [address] [place], [place] [address] Edinson Lorenzana, PRESS SETUP OPERATOR Follow-up Social History Tobacco Use Types Packs/Day [...] Miscellaneous Notes * Telephone Encounter - Edinson Lorenzana, [facility] - 01/29/2021 1604 EDT JUDIT VICK Note: Reason for Call: JUSTIN Dye asked me to reach out to the pt as she is interested in applying for SSDI and SSI. The pt and I planned for me to help her apply for SSDI on Tuesday the at 10am. We are going to do so remotely, I've sent her the zoom link and I will share my screen with her so she can answer the questions and I will provide guidance. We discussed calling SSA a day or two after the application has been submitted to apply for SSI. Mohini ask for presumptive SSI. Pt and I also discussed her housing situation. She is paying $1,200 for rent which includes utilities. Her child also lives w/ her. Initially the housing was included w/ her job but since she's no longer working she has to pay. We discussed applying for BHA, WHA, CHT, VSHA and the VERAP application. Pt asked me to send here the applications and links, this was completed. I will assist her w/ these applications as requested. Pt confirmed that she has applied for 3 Squ[employer] and Reach up. Pt Centered Identified Goal: SSDI/SSI Housing Plan: I will f/u with the pt next Tue as planned. I will assist her w/ housing questions prior to this appointment as she needs. Edinson COON documented in this encounter Plan of Treatment Upcoming Encounters Date Type Department Care Team (Late st Contact Info) Description 01/31/2024 13:40 EDT Office Visit [facility] Surgical Oncology - [address] [phone] Maeve Morales, 111 [facility], Level 2 [place] [phone] documented as of this encounter Visit Diagnoses Not on filedocumented in this encounter Care Teams Clinical Nurse Specialist Relationship Specialty Start Date End Date Batsheva Lira FNP [address] [address] PCP - General 02/19/20 07/21/22 documented as of this encounter
--- OUTSIDE RECORDS SUMMARY | 2023-12-10 17:41 | XMS_ITS | Encounter Summary ---
Author Organization [facility] Address [address] [place] [address] Care Team Providers Care Mover Name Role Phone Batsheva Lira JOHN Primary Care Provider [phone] Encounter Details Date Type Department Care Team (Late st Contact Info) Description 02/06/2021 Documentation Visit [facility] Hematology & Oncology - [facility] [address] [place] [address] Edinson Lorenzana LICSW Social History Tobacco Use [...] Progress Notes * Edinson Lorenzana LICSW - 02/06/2021 1132 EDT SW F/U Visit Presenting Issue Pt and I met today via telehealth to complete the SSDI application. This was completed successfully. Pt was able to see the SSDI application. Pt elected to apply for SSI as well. We planned to call SSA on at 2pm to schedule her w/ an appointment. Person Centered Goals SSDI and SSI Plan F/u on as planned. Edinson COON documented in this encounter Plan of Treatment Upcoming Encounters Date Type Department Care Team (Late st Contact Info) Description 01/31/2024 13:40 EDT Office Visit [facility] Surgical Oncology - [address] [phone] Maeve Morales, 111 [facility], [facility], Level 2 [place] [address] documented as of this encounter Visit Diagnoses Not on filedocumented in this encounter Care Teams Mover Relationship Specialty Start Date End Date Batsheva Lira FNP [address] [address] PCP - General 02/19/20 07/21/22 documented as of this encounter
--- OUTSIDE RECORDS SUMMARY | 2023-12-10 17:41 | XMS_ITS | Encounter Summary ---
Author Organization [facility] Address [address] [place] [address] Care Team Providers Care Coffee Machine Technician Name Role Phone Batsheva Lira JOHN Primary Care Provider [phone] Reason for Visit * Reason Comments Follow-up * Consult (Routine) - Order Cancelled Specialty Diagnoses / Procedures Referred By Jen gonzáles Referred To Contact Hematology and Oncology Diagnoses Malignant neoplasm of female breast, unspecified estrogen receptor status, unspecified laterality, unspecified site of breast ([facility]) [place] [address] [place] [phone] [facility] Ep2 Hem/Onc [address] [place] [address] Referral ID Status Reason Start Date Expiration Date Visits Requested Visits Authorized [id number] Order Cancelled Specialty Services Required 07/15/2020 1 1 Encounter Details Date Type Department Care Team (Late st Contact Info) Description 02/16/2021 13:00 EDT Telemedicine [facility] Hematology & Oncology - [address] [phone] Yulissa Martines, [facility] 111 [facility], [facility] 2 [place] [phone] Adjustment reaction with anxiety (Primary Dx) Social [...] Description 01/31/2024 13:40 EDT Office Visit [facility] Surgical Oncology - [address] [address] Maeve Morales, DO [address] [facility], [facility], Level [address] [place] [address] documented as of this encounter Visit Diagnoses Diagnosis Adjustment reaction with anxiety- Primary Adjustment disorder with anxiety documented in this encounter Care Teams Coffee Machine Technician Relationship Specialty Start Date End Date Batsheva Lira FNP [address] [address] PCP - General 02/19/20 07/21/22 documented as of this encounter
--- OUTSIDE RECORDS SUMMARY | 2023-12-10 17:41 | XMS_ITS | Encounter Summary ---
Author Organization [facility] Address [address] [place] [address] Care Team Providers Care Demonstrator Sales Name Role Phone Batsheva Lira JOHN Primary Care Provider [phone] Encounter Details Date Type Department Care Team (Late st Contact Info) Description 03/24/2021 Documentation Visit [facility] Hematology & Oncology - [facility] [address] [place] [address] Edinson Lorenzana LICSW Social History Tobacco Use [...] Progress Notes * Edinson Lorenzana LICSW - 03/24/2021 1005 EST JUDIT VICK Note: Reason for Call: Pt and I met today as planned via zoom we completed the request for reconsideration ([id number] and [id number]). These forms were mailed to the [place] [facility] office and the pt was mailed a copy for her records. Pt is going to ask the provider for a medical letter when she sees her 03/26. Pt Centered Identified Goal: Disability reconsideration Plan: Continue to support through this appeal process. Edinson COON documented in this encounter Plan of Treatment Upcoming Encounters Date Type Department Care Team (Late st Contact Info) Description 01/31/2024 13:40 EDT Office Visit [facility] Surgical Oncology - [address] [phone] Maeve Morales, 111 [facility], [facility], Level [address] [place] [address] documented as of this encounter Visit Diagnoses Not on filedocumented in this encounter Care Teams Demonstrator Sales Relationship Specialty Start Date End Date Batsheva Lira FNP [address] [address] PCP - General 02/19/20 07/21/22 documented as of this encounter
--- OUTSIDE RECORDS SUMMARY | 2023-12-10 17:41 | XMS_ITS | Encounter Summary ---
Author Organization [facility] Address [address] [place] [address] Care Team Providers Care Senior Production Manager Name Role Phone Batsheva Lira JOHN Primary Care Provider [phone] Reason for Visit * Reason Onset Date Comments Other 03/11/2021 Encounter Details Date Type Department Care Team (Late st Contact Info) Description 03/11/2021 Telephone [facility] Hematology & Oncology - [facility] [address] [place], [place] [phone] Vivian Lackey CCLS Other Social History Tobacco [...] Telephone Encounter - Vivian Lackey CCLS - 03/11/2021 1423 EDT CATHLEENS called Austin to share information about Zoom session with her daughter, Lan, and to discuss plans for continuing support. CCLS invited Austin to call back. JORDAN Melendez Entry Level II documented in this encounter Plan of Treatment Upcoming Encounters Date Type Department Care Team (Late st Contact Info) Description 01/31/2024 13:40 EDT Office Visit [facility] Surgical Oncology - [address] [phone] Maeve Morales, DO 111 [facility], Level [address] [place] [address] documented as of this encounter Visit Diagnoses Not on filedocumented in this encounter Care Teams Senior Production Manager Relationship Specialty Start Date End Date Batsheva Lira FNP [address] [phone] PCP - General 02/19/20 07/21/22 documented as of this encounter
--- OUTSIDE RECORDS SUMMARY | 2023-12-10 17:41 | XMS_ITS | Encounter Summary ---
Author Organization [facility] Address [address] [place] [address] Care Team Providers Care Accountant Manager Name Role Phone Batsheva Lira JOHN Primary Care Provider [phone] Reason for Visit * Reason Onset Date Comments Follow-up 03/02/2021 Encounter Details Date Type Department Care Team (Late st Contact Info) Description 03/02/2021 Telephone [facility] Hematology & Oncology - [facility] [address] [place], [place] [phone] Vivian Brito, RN Follow-up Social History Tobacco Use Types Packs/Day [...] encounter Miscellaneous Notes * Telephone Encounter - Ned Argueta - 03/02/2021 1443 EDT Spoke with pt she is aware of new appt 03/26 at 830 no appt tomorrow left PAC# * Telephone Encounter - Vivian Brito RN - 03/02/2021 1431 EDT Instructed Austin to go ahead and start her Capecitabine at 2000 mg (4 tabs) BID tomorrow morning. Also asked that she get labs in the next day or two followed by weekly CBC and CMP (will put in orders for standing labs here at [facility]). Austin verbalized understanding of plan and will call with any questions or concerns. documented in this encounter Plan of Treatment Upcoming Encounters Date Type Department Care Team (Late st Contact Info) Description 01/31/2024 13:40 EDT Office Visit [facility] [place] [address] Maeve Morales, DO 111 [facility], [facility], Level [address] [place] [address] documented as of this encounter Visit Diagnoses Diagnosis Malignant neoplasm of right breast in female, estrogen receptor negative, unspecified site of breast (HCC-CMS)- Primary documented in this encounter Care Teams Accountant Manager Relationship Specialty Start Date End Date Batsheva Lira FNP [address] [phone] PCP - General 02/19/20 07/21/22 documented as of this encounter
--- OUTSIDE RECORDS SUMMARY | 2023-12-10 17:41 | XMS_ITS | Encounter Summary ---
Author Organization [facility] Address [address] [place] [address] Care Team Providers Care Senior Research Project Manager Name Role Phone Batsheva Lira JOHN Primary Care Provider [phone] Reason for Referral * Radiology Services (Routine/Next Available) - Authorization Not Required Specialty Diagnoses / Procedures Referred By Jen gonzáles Referred To Contact Diagnoses Malignant 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, estrogen receptor negative (HCC-CMS) Procedures [place] [address] [address] Referral ID Status Reason Start Date Expiration Date Visits Requested Visits Authorized [id number] Authorization Not Required 02/06/2021 1 1 Encounter Details Date Type Department Care Team (Late st Contact Info) Description 02/05/2021 Orders Only [facility] Hematology & Oncology - [address] [place] [address] [place], [place] [id number] Lolly Antunez, RADHA Malignant neoplasm of upper-inner [...] Info) Description 01/31/2024 13:40 EDT Office Visit [facility] Surgical Oncology - [address] [id number] Maeve Morales, DO [address] [place] [address], Level 2 [place] [address] documented as of this encounter Procedures Procedure Name Priority Date/Time Associated Diagnosis Comments HEPATITIS B PROFILE Add-On 02/05/2021 1 2:20 EDT Malignant neoplasm of upper-inner quadrant of [...] lesion. L5-S1 facet hypertrophy on the right. Supervisor Type Disk Quality Control: No additional findings. Procedure Note Deni Mercado [...] osseous lesion. L5-S1 facet hypertrophy onthe right. Supervisor Type Disk Quality Control: No additional findings. IMPRESSION 1. No metastatic disease or lymphadenopathy identified in the abdomen. 2. Hepatomegaly and hepatic steatosis appear to have progressed sinceprior CT. 3. Status post cholecystectomy. Queenie Conde MD IMG CT ORDERABLES * HEPATITIS B PROFILE (02/05/2021 12:20 EDT) Hep B Surface Ag Negative Negative 02/07/20 12:33 EDT [facility] Hep B Surface Ab, Quantitative <3.1 See Note mIU/mL 02/06/2021 12:33 EDT [facility] Comment: Reference Range for Hep B Surface Ab, Quant: Positive: >= 10.0 mIU/mL Negative: ??< 10.0 mIU/mL Patient is presumed to not be immune to infection with Hepatitis B Virus. Hep B Surface Ab, Qualitative Negative See Note 02/06/2021 12:33 EDT [facility] Comment: Reference Range for Hep B Surface Ab, Qual: Unvaccinated: ??Negative Vaccinated: ??Positive Hepatitis B Core Ab, Total Negative Negative 02/06/2021 12:33 EDT [facility] Blood VENOUS BLOOD / Unknown Venipuncture / Unknown 02/05/2021 12:20 EDT 02/05/2021 12:23 EDT Queenie Conde MD CHEMISTRY & BLOOD GA S ORDERABLES [facility] [address] [place] [address] documented in this encounter Visit Diagnoses Diagnosis Malignant 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, estrogen receptor negative (HCC-CMS)- Primary Malignant 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, estrogen receptor negative (HCC-CMS) documented in this encounter Care Teams Senior Research Project Manager Relationship Specialty Start Date End Date Batsheva Lira FNP [address] [phone] PCP - General 02/19/20 07/21/22 documented as of this encounter
--- OUTSIDE RECORDS SUMMARY | 2023-12-10 17:41 | XMS_ITS | Encounter Summary ---
Author Organization [facility] Address [address] [place] [address] Care Team Providers Care Qa Tester Name Role Phone Batsheva Lira JOHN Primary Care Provider [phone] Encounter Details Date Type Department Care Team (Late st Contact Info) Description 03/17/2021 9:00 EDT Phlebotomy Only [facility] ED Center 2 Phlebotomy [address] [place] [address] Furnace Roaster, Acc Phlebotomy Malignant neoplasm of right breast [...] Visit [facility] Surgical Oncology - [address] [address] Maeve Morales, [address], [address] [place] [address] documented as of this encounter Procedures Procedure Name Priority Date/Time Associated Diagnosis Comments COMPLETE BLOOD COUNT AND DIFFERENTIAL STAT 03/17/2021 9:14 EDT Malignant neoplasm of right breast in female, estrogen receptor negative, unspecified site of breast (HCC-CMS) (HCC) (HCC-CMS) COMPREHENSIVE METABOLIC PANEL (CMP) STAT 03/17/2021 9:14 EDT Malignant neoplasm of right breast in female, estrogen receptor negative, unspecified site of breast (HCC-CMS) (HCC) (HCC-CMS) documented in this encounter Results * (ABNORMAL) COMPREHENSIVE METABOLIC PANEL (CMP) (03/17/2021 9:14 EDT) Sodium 139 136 - 145 mmol/L 03/17/2021 9:40 [facility] Potassium 3.9 3.5 - 5.0 mEq/L 03/17/2021 9:40 [facility] Chloride 107 96 - 110 mEq/L 03/17/2021 9:40 [facility] CO2 Total 23 22 - 32 mEq/L 03/17/2021 9:40 [facility] Glucose 197(H) 70 - 100 mg/dL 03/17/2021 9:40 [facility] BUN 6(L) 10 - 26 mg/dL 03/17/2021 9:40 [facility] Creatinine 0.44(L) 0.52 - 1.04 mg/dL 03/17/2021 9:40 [facility] eGFR 122 >60 mL/min/1.7 3m2 03/17/2021 9:40 [facility] Comment:eGFR calculated mata asif CKD-EPI equation for non- Americans. Multiply eGFR by 1.16 for patients. Total Protein 7.0 6.3 - 8.2 g/dL 03/17/2021 9:40 [facility] Albumin 4.4 3.4 - 4.9 g/dL 03/17/2021 9:40 [facility] Alkaline Phosphatase 162(H) 38 - 126 U/L 03/17/2021 9:40 [facility] AST 32 15 - 46 U/L 03/17/2021 9:40 [facility] ALT 43(H) <35 U/L 03/17/2021 9:40 [facility] Bilirubin, Total <0.5 <1.4 mg/dL 03/17/20 9:40 [facility] Calcium 9.6 8.5 - 10.5 mg/dL 03/17/2021 9:40 [facility] Albumin/Globulin Ratio 1.7 1.0 - 2.5 03/17/2021 9:40 [facility] Anion Gap 9 8 - 16 03/17/2021 9:[address] [facility] Blood VENOUS BLOOD / Unknown Venipuncture / Unknown 03/17/2021 9:14 EDT 03/17/2021 9:19 EDT Queenie Conde MD CHEMISTRY & BLOOD GA S ORDERABLES Performing Organization Address City/State/[facility] Co de Phone Number [facility] [address] [place] [address] * (ABNORMAL) COMPLETE BLOOD COUNT AND DIFFERENTIAL (03/17/2021 9:14 EDT) WBC 5.55 4.00 - 12.40 K/cmm 03/17/2021 9:29 [facility] RBC 4.97 3.86 - 5.04 M/cmm 03/17/2021 9:29 [facility] Hemoglobin 14.5 11.6 - 15.2 gm/dL 03/17/2021 9:29 [facility] HCT 43.6 34.9 - 44.4 % 03/17/2021 9:29 [facility] MCV 88 81 - 98 fl 03/17/2021 9:29 [facility] MCH 29.2 26.7 - 33.3 pg 03/17/2021 9:29 [facility] MCHC 33.3 32.1 - 35.9 gm/dL 03/17/2021 9:29 [facility] RDW-CV 13.3 <14.7 % 03/17/2021 9:29 [facility] RDW-SD 41.0 <50.4 fl 03/17/2021 9:29 [facility] PLT 238 141 - 377 K/cmm 03/17/2021 9:29 [facility] MPV 9.0(L) 9.5 - 12.7 fl 03/17/2021 9:29 [facility] % Neutrophils 58.6 % 03/17/2021 9:29 [facility] % Lymphocytes 24.1 % 03/17/2021 9:[address] [facility] % Monocytes 9.9 % 03/17/2021 9:[address] [facility] % Eosinophils 6.3 % 03/17/2021 9:[address] [facility] % Basophils 1.1 % 03/17/2021 9:29 [facility] % Immature Grans 0.0 % 03/17/20 9:29 [facility] Absolute Neutrophils 3.25 2.20 - 8.85 K/cmm 03/17/2021 9:29 [facility] Absolute Lymphocytes 1.34 1.09 - 3.30 K/cmm 03/17/2021 9:29 [facility] Absolute Monocytes 0.55 0.10 - 0.80 K/cmm 03/17/2021 9:29 [facility] Absolute Eosinophils 0.35 0.03 - 0.61 K/cmm 03/17/2021 9:29 [facility] ABS Basophils 0.06 0.01 - 0.11 K/cmm 03/17/2021 9:29 [facility] Absolute Immature Grans 0.00 0.00 - 0.06 K/cmm 03/17/2021 9:29 [facility] Type of Differential: Auto 03/17/2021 9:29 [facility] Blood VENOUS BLOOD / Unknown Venipuncture / Unknown 03/17/2021 9:14 EDT 03/17/2021 9:19 EDT Queenie Conde MD PACKAGES & DNA PROBE ORDERABLES [facility] [address] [place] [address] documented in this encounter Visit Diagnoses Diagnosis Malignant neoplasm of right breast in female, estrogen receptor negative, unspecified site of breast (HCC-CMS) documented in this encounter Care Teams Qa Tester Relationship Specialty Start Date End Date Batsheva Lira FNP [address] [phone] PCP - General 02/19/20 07/21/22 documented as of this encounter
--- OUTSIDE RECORDS SUMMARY | 2023-12-10 17:41 | XMS_ITS | Encounter Summary ---
Author Organization [facility] Address [address] [place] [address] Care Team Providers Care Permanent Mold Supervisor Name Role Phone Batsheva Lira JOHN Primary Care Provider [phone] Encounter Details Date Type Department Care Team (Late st Contact Info) Description 03/03/2021 12:45 EDT Phlebotomy Only [facility] ED Center 2 Phlebotomy [address] [place] [address] Site Reliability Engineer, Acc Phlebotomy Malignant neoplasm of right breast [...] as of this encounter Progress Notes * Vivian Lackey CCLS - 03/03/2021 1245 EDT JORDAN facilitated Zoom session with Austin's daughter, Lan to assess coping and provide support. Lan appears to be coping well regarding her mother's diagnosis and treatment. She expressed developmentally-appropriate concerns, such as feeling sad or anxious when she is left out from activities with her friends or feeling frustrated because of homework. Lan reported that she doesn't worry too often about her mother's cancer. She appears to be having coping skills set in place for day-to-day stressors, including taking deep breaths, talking to friends or family, and engaging in extracurricular activities. JORDAN will follow up with Austin to determine plans for future sessions. JORDAN Melendez Dining Room Maid II documented in this encounter Plan of Treatment Upcoming Encounters Date Type Department Care Team (Late st Contact Info) Description 01/31/2024 13:40 EDT Office Visit [facility] Surgical Oncology - [address] [address] Maeve Morales, DO [address] [facility] 2 [place] [phone] documented as of this encounter Procedures Procedure Name Priority Date/Time Associated Diagnosis Comments COMPLETE BLOOD COUNT AND DIFFERENTIAL STAT 03/03/2021 12:58 EDT Malignant neoplasm of right breast in female, estrogen receptor negative, unspecified site of breast (HCC-CMS) (HCC) (HCC-CMS) COMPREHENSIVE METABOLIC PANEL (CMP) STAT 03/03/2021 12:58 EDT Malignant neoplasm of right breast in female, estrogen receptor negative, unspecified site of breast (HCC-CMS) (HCC) (HCC-CMS) documented in this encounter Results * (ABNORMAL) COMPREHENSIVE METABOLIC PANEL (CMP) (03/03/2021 12:58 EDT) Sodium 139 136 - 145 mmol/L 03/03/2021 13:37 [facility] Potassium 4.2 3.5 - 5.0 mEq/L 03/03/2021 13:37 [facility] Chloride 102 96 - 110 mEq/L 03/03/2021 13:37 [facility] CO2 Total 25 22 - 32 mEq/L 03/03/2021 13:37 [facility] Glucose 168(H) 70 - 100 mg/dL 03/03/2021 13:37 [facility] BUN 10 10 - 26 mg/dL 03/03/2021 13:37 [facility] Creatinine 0.46(L) 0.52 - 1.04 mg/dL 03/03/2021 13:37 [facility] eGFR 121 >60 mL/min/1.7 3m2 03/03/2021 13:37 [facility] Comment:eGFR calculated mata asif CKD-EPI equation for non- Americans. Multiply eGFR by 1.16 for patients. Total Protein 7.6 6.3 - 8.2 g/dL 03/03/2021 13:37 [facility] Albumin 4.7 3.4 - 4.9 g/dL 03/03/2021 13:37 [facility] Alkaline Phosphatase 164(H) 38 - 126 U/L 03/03/2021 13:37 [facility] AST 58(H) 15 - 46 U/L 03/03/2021 13:37 [facility] ALT 89(H) <35 U/L 03/03/2021 13:37 [facility] Bilirubin, Total <0.5 <1.4 mg/dL 03/03/20 13:37 [facility] Calcium 9.6 8.5 - 10.5 mg/dL 03/03/2021 13:37 [facility] Calculated Calcium 9.0 8.5 - 10.5 mg/dL 03/03/2021 13:37 [facility] Blood VENOUS BLOOD / Unknown Venipuncture / Unknown 03/03/2021 12:58 EDT 03/03/2021 13:04 EDT Queenie Conde MD CHEMISTRY & BLOOD GA S ORDERABLES Performing Organization Address City/State/[facility] Co de Phone Number [facility] [address] [place] [address] * (ABNORMAL) COMPLETE BLOOD COUNT AND DIFFERENTIAL (03/03/2021 12:58 EDT) WBC 5.90 4.00 - 12.40 K/cmm 03/03/2021 13:16 [facility] RBC 4.74 3.86 - 5.04 M/cmm 03/03/2021 13:16 [facility] Hemoglobin 14.3 11.6 - 15.2 gm/dL 03/03/2021 13:16 [facility] HCT 42.8 34.9 - 44.4 % 03/03/2021 13:16 [facility] MCV 90 81 - 98 fl 03/03/2021 13:16 [facility] MCH 30.2 26.7 - 33.3 pg 03/03/2021 13:16 [facility] MCHC 33.4 32.1 - 35.9 gm/dL 03/03/2021 13:16 [facility] RDW-CV 12.5 <14.7 % 03/03/2021 13:16 [facility] RDW-SD 41.2 <50.4 fl 03/03/2021 13:16 [facility] PLT 269 141 - 377 K/cmm 03/03/2021 13:16 [facility] MPV 9.4(L) 9.5 - 12.7 fl 03/03/2021 13:16 [facility] % Neutrophils 54.1 % 03/03/2021 13:16 [facility] % Lymphocytes 27.6 % 03/03/2021 13:16 [facility] % Monocytes 12.0 % 03/03/2021 13:16 [facility] % Eosinophils 4.9 % 03/03/2021 13:16 [facility] % Basophils 1.2 % 03/03/2021 13:16 [facility] % Immature Grans 0.2 % 03/03/20 13:16 [facility] Absolute Neutrophils 3.19 2.20 - 8.85 K/cmm 03/03/2021 13:16 [facility] Absolute Lymphocytes 1.63 1.09 - 3.30 K/cmm 03/03/2021 13:16 [facility] Absolute Monocytes 0.71 0.10 - 0.80 K/cmm 03/03/2021 13:16 [facility] Absolute Eosinophils 0.29 0.03 - 0.61 K/cmm 03/03/2021 13:16 [facility] ABS Basophils 0.07 0.01 - 0.11 K/cmm 03/03/2021 13:16 [facility] Absolute Immature Grans 0.01 0.00 - 0.06 K/cmm 03/03/2021 13:16 [facility] Type of Differential: Auto 03/03/2021 13:16 EDT [facility] Blood VENOUS BLOOD / Unknown Venipuncture / Unknown 03/03/2021 12:58 EDT 03/03/2021 13:04 EDT Queenie Conde MD PACKAGES & DNA PROBE ORDERABLES [facility] [address] [place] [address] documented in this encounter Visit Diagnoses Diagnosis Malignant neoplasm of right breast in female, estrogen receptor negative, unspecified site of breast (HCC-CMS)- Primary documented in this encounter Care Teams Permanent Mold Supervisor Relationship Specialty Start Date End Date Batsheva Lira FNP [address] [phone] PCP - General 02/19/20 07/21/22 documented as of this encounter
--- OUTSIDE RECORDS SUMMARY | 2023-12-10 17:41 | XMS_ITS | Encounter Summary ---
Author Organization [facility] Address [address] [place] [address] Care Team Providers Care Manager Compliance Name Role Phone Batsheva Lira JOHN Primary Care Provider [phone] Reason for Visit * Reason Comments Tissue Senior Environmental Practice Leader Fill Bilateral TE fill Encounter Details Date Type Department Care Team (Latest Contact Info) Description 02/27/2021 15:30 EDT Post-op Visit [facility] Plastic, Reconstructive & Cosmetic Surgery - [address], [address] [place] [address] Hernán Yuen MD [address] [place] [address] [place] [phone] Surgery follow-up (Primary Dx) Social History [...] as of this encounter Progress Notes * Hernán Yuen MD - 02/27/2021 1530 EDT Plastic and Reconstructive Surgery 45F with bilateral TE reconsruction presents for fill. She has been filled previously to 325cc bilaterally. She has been feeling well and has had no issues. After verbal consent, another 75cc was filled bilaterally. Tolerated well, no pain, continued healthy appearance of flaps. Total fill 400cc bilaterally. RTC in 2-3 weeks for repeat fill with Dr. Carlos Alberto Underwood MD associate marketing manager Division of Plastic, Reconstructive, and Cosmetic Surgery [facility] documented in this encounter Plan of Treatment Upcoming Encounters Date Type Department Care Team (Late st Contact Info) Description 01/31/2024 13:40 EDT Office Visit [facility] Surgical Oncology - [place] [id number] Maeve Morales, DO 111 [facility], Level [address] [place] [phone] documented as of this encounter Visit Diagnoses Diagnosis Surgery follow-up- Primary Follow-up examination, following unspecified surgery documented in this encounter Care Teams Manager Compliance Relationship Specialty Start Date End Date Batsheva Lira FNP [address] [phone] PCP - General 02/19/20 07/21/22 documented as of this encounter
--- OUTSIDE RECORDS SUMMARY | 2023-12-10 17:41 | XMS_ITS | Encounter Summary ---
Author Organization [facility] Address [address] [place] [address] Care Team Providers Care Fitting Room Checker Name Role Phone Batsheva Lira JOHN Primary Care Provider [phone] Reason for Visit * Reason Onset Date Comments Social Work 01/28/2021 medical letter Encounter Details Date Type Department Care Team (Late st Contact Info) Description 01/28/2021 Telephone [facility] Hematology & Oncology - [address] [id number] Veronique Dye Social Work (medical letter) Social History Tobacco Use Types Packs/Day Years [...] * Telephone Encounter - Veronique Dye - 01/28/2021 3322 EDT Pt messaged me that her unemployment benefits ended. She can reapply but is required to be activelysearching for employment in order to received benefits. She is asking for a medical letter asking for an exemption for the job search. PN connected with pt by phone. Reports that she will be starting an oral chemotherapy on 02/[address] Conde's recommendation. Reconstruction will occur after her course of chemo has ended. Pt applied for unemployment online. I encouraged her to call them tomorrow and explain that she will be sending a medical letter; pt agreeable with making this call. PN will work on getting a medical letter completed and signed by Dr. Conde and will f/u with pt onceI have a letter. Plan- Message to Yoel Antunez re: letter Addendum 3:15pm: Pt called back and shared that she spoke with a healthcare sales representative from [employer] and was told that she has exhausted all of her benefits and would not be able to reapply unless she worked between and June. Discussed SSI/SSDI and I suggested that we talk with Dr. Conde to see if she feels pt could work andif not, perhaps she should try to apply. Pt open to exploring this option. I will check with Yoel Antunez, RN to gather info re: ability to work on oral chemo and stage of disease. Will also discuss with my SW colleagues and will get back to pt. documented in this encounter Plan of Treatment Upcoming Encounters Date Type Department Care Team (Late st Contact Info) Description 01/31/2024 13:40 EDT Office Visit [facility] Surgical Oncology - [address] [id number] Maeve Morales, [address] [facility], Level [address] [place] [phone] documented as of this encounter Visit Diagnoses Not on filedocumented in this encounter Care Teams Fitting Room Checker Relationship Specialty Start Date End Date Batsheva Lira FNP [address] [phone] PCP - General 02/19/20 07/21/22 documented as of this encounter
--- OUTSIDE RECORDS SUMMARY | 2023-12-10 17:41 | XMS_ITS | Encounter Summary ---
Author Organization [facility] Address [address] [place] [address] Care Team Providers Care Tenant Relations Coordinator Name Role Phone Batsheva Lira JOHN Primary Care Provider [phone] Encounter Details Date Type Department Care Team (Late st Contact Info) Description 02/05/2021 12:15 EDT Phlebotomy Only [facility] ED Center 2 Phlebotomy [address] [place] [address] Director Radio News, Acc Phlebotomy Malignant 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, estrogen receptor negative ([facility]) Social History Tobacco Use Types Packs/Day Years [...] Visit [facility] Surgical Oncology - [address] [id number] Maeve Morales, DO 111 [facility], [facility], Level [address] [place] [address] documented as of this encounter Procedures Procedure Name Priority Date/Time Associated Diagnosis Comments COMPREHENSIVE METABOLIC PANEL (ONCOLOGY USE ONLY-INC MG) STAT 02/05/2021 12:20 EDT Malignant 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, estrogen receptor negative (HCC-CMS) COMPLETE BLOOD COUNT AND DIFF, CHEMO STAT 02/05/2021 12:20 EDT Malignant 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, estrogen receptor negative (HCC-CMS) documented in this encounter Results * (ABNORMAL) COMPLETE BLOOD COUNT AND DIFF, CHEMO (02/05/2021 12:20 EDT) WBC 6.04 4.00 - 12.40 K/cmm 02/05/2021 12:35 [facility] RBC 4.85 3.86 - 5.04 M/cmm 02/05/2021 12:35 [facility] Hemoglobin 14.4 11.6 - 15.2 gm/dL 02/05/2021 12:35 [facility] HCT 44.0 34.9 - 44.4 % 02/05/2021 12:35 [facility] MCV 91 81 - 98 fl 02/05/2021 12:35 [facility] MCH 29.7 26.7 - 33.3 pg 02/05/2021 12:35 [facility] MCHC 32.7 32.1 - 35.9 gm/dL 02/05/2021 12:35 [facility] RDW-CV 12.6 <14.7 % 02/05/2021 12:35 [facility] RDW-SD 41.7 <50.4 fl 02/05/2021 12:35 [facility] PLT 255 141 - 377 K/cmm 02/05/2021 12:35 [facility] MPV 9.2(L) 9.5 - 12.7 fl 02/05/2021 12:35 [facility] % Neutrophils 56.9 % 02/05/2021 12:35 [facility] Absolute Neutrophils 3.44 2.20 - 8.85 K/cmm 02/05/2021 12:35 [facility] Type of Differential: Auto 02/05/2021 12:35 [facility] Blood VENOUS BLOOD / Unknown Venipuncture / Unknown 02/05/2021 12:20 EDT 02/05/2021 12:23 EDT Queenie Conde MD PACKAGES & DNA PROBE ORDERABLES [facility] [address] [place] [address] * (ABNORMAL) COMPREHENSIVE METABOLIC PANEL (ONCOLOGY USE ONLY-INC MG) (02/05/2021 12:20 EDT) Sodium 139 136 - 145 mmol/L 02/05/2021 12:57 [facility] Potassium 4.0 3.5 - 5.0 mEq/L 02/05/2021 12:57 [facility] Chloride 101 96 - 110 mEq/L 02/05/2021 12:57 [facility] CO2 Total 25 22 - 32 mEq/L 02/05/2021 12:57 [facility] Glucose 141(H) 70 - 100 mg/dL 02/05/2021 12:57 [facility] BUN 9(L) 10 - 26 mg/dL 02/05/2021 12:57 [facility] Creatinine 0.51(L) 0.52 - 1.04 mg/dL 02/05/2021 12:57 [facility] eGFR 116 >60 mL/min/1.7 3m2 02/05/2021 12:57 [facility] Comment:eGFR calculated mata asif CKD-EPI equation for non- Americans. Multiply eGFR by 1.16 for patients. Total Protein 7.8 6.3 - 8.2 g/dL 02/05/2021 12:57 [facility] Albumin 4.9 3.4 - 4.9 g/dL 02/05/2021 12:57 [facility] Alkaline Phosphatase 161(H) 38 - 126 U/L 02/05/2021 12:57 [facility] AST 102(H) 15 - 46 U/L 02/05/2021 12:57 [facility] ALT 157(H) <35 U/L 02/05/2021 12:57 [facility] Bilirubin, Total <0.5 <1.4 mg/dL 02/06/20 12:57 [facility] Calcium 10.3 8.5 - 10.5 mg/dL 02/05/2021 12:57 [facility] Calculated Calcium 9.6 8.5 - 10.5 mg/dL 02/05/2021 12:57 EDT [facility] Magnesium 1.8 1.7 - 2.8 mg/dL 02/05/2021 12:57 EDT [facility] Blood VENOUS BLOOD / Unknown Venipuncture / Unknown 02/05/2021 12:20 EDT 02/05/2021 12:23 EDT Queenie Conde MD CHEMISTRY & BLOOD GA S ORDERABLES [facility] [address] [place] [address] documented in this encounter Visit Diagnoses Diagnosis Malignant 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, estrogen receptor negative (HCC-CMS) documented in this encounter Care Teams Tenant Relations Coordinator Relationship Specialty Start Date End Date Batsheva Lira FNP [address] [address] PCP - General 02/19/20 07/21/22 documented as of this encounter
--- OUTSIDE RECORDS SUMMARY | 2023-12-10 17:42 | XMS_ITS | Encounter Summary ---
Author Organization [facility] Address [address] [place] [address] Care Team Providers Care Arcade Technician Name Role Phone Batsheva Lira JOHN Primary Care Provider [phone] Pam Germain MD Unavailable [phone] Janay Duran CUFF SETTER LOCKSTITCH Primary Care Provider Unava ilable Encounter Details Date Type Department Care Team (Late st Contact Info) Description 01/08/2021 Lab Requisition [facility] Pathology & Laboratory Medicine - [facility] [address] [place] [address] [place] [address] [place] [phone] Encounter for other general examination Social History Tobacco Use Types Packs/Day Years [...] have Coronavirus / COVID-19? No / Unsure 01/08/2021 13:25 EDT documented as of this encounter Functional [...] [facility] - [address] [id number] Maeve Morales, DO [address] [place] [address], [facility] [address] [place] [address] documented as of this encounter Procedures Procedure Name Priority Date/Time Associated Diagnosis Comments HISTORICAL CASE UPDATE Today 01/08/2021 11:37 EDT Encounter for other general examination documented in this encounter Results * HISTORICAL CASE UPDATE (01/08/2021 11:37 EDT) Addendum Comment PD-L1 IMMUNOHISTOCHEMISTRY REPORT TISSUE SUBMITTED: Tissue submitted: Paraffin embedded tissue block labelled A1 from [id number] at the request of Dr[address] Queenie Conde PD-L1 Tissue Source and Diagnosis from Pathology Report: Breast DESCRIPTION: PD-L1 protein expression is determined by using Combined Positive Score (CPS), which is the number of PD-L1 staining cells (tumor cells, lymphocytes, macrophages) at any intensity divided by the total viable tumor cells, multiplied by 100. PD-L1 SP263 by Immunohistochemistry Testing with Interpretation is a semiquantitative assay using Monoclonal Mouse Anti-PD-L1, Clone SP263 intended for use in the detection of PD-L1 protein in 10% neutral buffered formalin-fixed for more than 6 hours, and paraffin-embedded tissue. The assay was performed under appropriate conditions and tissue controls using the OptiView Detection System on the [employer] BenchMark Ultra. The specimen submitted for testing should contain at least 100 viable tumor cells to be considered adequate. NOTE: One or more of the reagents used in immunoperoxidase testing in this case may not have been cleared or approved by the U.S. Food and Drug Administration (FDA). The FDA has determined that such clearance or approval is not necessary. These tests are used for clinical purposes. They should not be regarded as investigational or for research. This assay was validated as a laboratory developed test (LDT) in comparison with staining characteristics using tissues stained with PD-L1 22C3 antibody. All results should be interpreted within the appropriate clinical context. The use of this assay on decalcified tissues and non-formalin fixed tissues has not been validated and is not recommended. The positive and negative controls worked appropriately. This laboratory is certified under the Clinical Laboratory Improvement Amendments of 1988 (CLIA-88) as qualified to perform high complexity clinical laboratory testing. For more information, please refer to practice guidelines published by the National Comprehensive Cancer Network (NCCN) at: www.nccn.org/profyari nalmin/physician_gls/ INTERPRETATION: PD-L1 Combined Positive Score (CPS) > 1 but < 5 (PD-L1 expression negative) PD-L1 IMMUNOHISTOCHEMISTRY REPORT TISSUE SUBMITTED: Tissue submitted: Paraffin embedded tissue block labelled A1 from [id number] at the request of Dr. Queenie Conde. PD-L1 Tissue Source and Diagnosis from Pathology Report: Breast DESCRIPTION: PD-L1 expression is determined by calculating the percentage of the tumor area occupied by PD-L1 expressing tumor- infiltrating immune cells (IC) with the appropriate pattern of any intensity of staining. PD-L1 SP142 by Immunohistochemical with Interpretation is a semiquantitative assay using Monoclonal Rabbit Anti-PD-L1, Clone SP142 intended for use in the detection of PD-L1 protein in 10% neutral buffered formalin-fixed for more than 6 hours, and paraffin-embedded tissue. The assay was performed under appropriate conditions and tissue controls using the OptiView DAB IHC Detection Kit and the OptiView Amplification Kit on the [place] BenchMark Ultra. The specimen submitted for testing should contain at least 50 viable tumor cells to be considered adequate. NOTE: One or more of the reagents used in immunoperoxidase testing in this case may not have been cleared or approved by the U.S. Food and Drug Administration (FDA). The FDA has determined that such clearance or approval is not necessary. These tests are used for clinical purposes. They should not be regarded as investigational or for research. These reagents' performance characteristics have been determined by [facility] and/or by the referring laboratory. The positive and negative controls worked appropriately. If immunoperoxidase staining has been performed on alcohol fixed cytology specimens, which has not been fully validated, the assays should be interpreted with caution and correlated with clinical data. This laboratory is certified under the Clinical Laboratory Improvement Amendments of 1988 (CLIA-88) as qualified to perform high complexity clinical laboratory testing. For more information, please refer to practice guidelines published by the National Comprehensive Cancer Network (NCCN) at www.nccn.org/professio nals/physician_gls/ INTERPRETATION: PD-L1 Immune Cells (IC): < 1% (PD-L1 expression negative) 1 15:43 [facility] Original (A1) 1 15:43 [facility] Original Case Specimen Source 1 15:43 [facility] Original Case Date of Service 07/09/2020 1 15:43 [facility] Attestation By the signature below, the attending physician certifies that they have 1) personally conducted a gross and/or microscopic examination of the described specimen(s), and/or personally interpreted the results of laboratory testing of the described specimen(s), and 2) personally rendered or confirmed the above diagnosis. 1 15:43 [facility] at 1543 Surgical pathology service (qualifier value) ENTIRE BREAST / Unknown 01/08/2021 11:37 EDT 01/08/2021 11:37 EDT Queenie Conde MD PATHOLOGY ORDERABLES [facility] [address] [place] [address] documented in this encounter Visit Diagnoses Diagnosis Encounter for other general examination documented in this encounter Care Teams Arcade Technician Relationship Specialty Start Date End Date Batsheva Lira FNP [address] [address] PCP - General 02/19/20 07/21/22 Janay Duran APRN 111 [facility], [facility] [address] [place] [address] PCP - General Family Medicine - Primary Care 07/22/22 Pam Germain MD 111 [facility] 2 [place] [address] Medical Oncology 03/22/22 documented as of this encounter
--- OUTSIDE RECORDS SUMMARY | 2023-12-10 17:42 | XMS_ITS | Encounter Summary ---
Author Organization [facility] Address [address] [place] [address] Care Team Providers Care Vault Service Mechanic Name Role Phone Batsheva Lira JOHN Primary Care Provider [phone] Reason for Visit * Reason Onset Date Comments Appointment Related 12/17/2020 Encounter Details Date Type Department Care Team (Late st Contact Info) Description 12/17/2020 Telephone [facility] Therapy - [facility] [address] [place] [address] Physical, Therapy Appointment Related Social History Tobacco [...] have Coronavirus / COVID-19? No / Unsure 12/17/2020 9:28 EDT documented as of this encounter Functional Status Functional Status Response Date of Assess ment Are you deaf or do you have serious difficulty h earing? No 11/21/2020 Are you blind or do you have serious difficulty seeing, even when wearing glasses? No 11/21/2020 Do you have serious difficul ty walking or climbing stairs? (5 years old or older) No 11/21/2020 Do you have difficulty dress ing or bathing? (5 years old or older) No 11/21/2020 Because of a physical, menta l, or emotional condition, do you have difficulty doing errands alone such as visiting a doctor's office or shopping? (15 years old or older) No 11/21/2020 Cognitive Status Response Date of Assessm ent Because of a physical, menta l, or emotional condition, do you have serious difficulty concentrating, remembering, or making decisions? (5 years old or older) No 11/21/2020 documented as of this encounter Miscellaneous Notes * Telephone Encounter - Sera Langston - 12/17/2020 1042 EDT [facility] - [address] [address] Telephone Intake Information for Scheduling NEW Patients for Therapy Script/referral: In EPIC Referring Provider: Emelina Grijalva MD Diagnosis: Steps to Wellness; Breast cancer Painter Set needed? No Primary Insurance: [place] plan- No extension process required Secondary Insurance: If Medicaid (age 21+): Have you been seen for therapy since May first of this year? No Notes: Currently in chemo or every received? Yes Currently in radiation? No Sera Langston 12/17/2020 documented in this encounter Plan of Treatment Upcoming Encounters Date Type Department Care Team (Late st Contact Info) Description 01/31/2024 13:40 EDT Office Visit [facility] Surgical Oncology - [address] [id number] Maeve Morales, DO 111 [facility], [facility], [address] [place] [address] documented as of this encounter Visit Diagnoses Not on filedocumented in this encounter Care Teams Vault Service Mechanic Relationship Specialty Start Date End Date Batsheva Lira FNP [address] [address] PCP - General 02/19/20 07/21/22 documented as of this encounter
--- OUTSIDE RECORDS SUMMARY | 2023-12-10 17:42 | XMS_ITS | Encounter Summary ---
Author Organization [facility] Address [address] [place] [address] Care Team Providers Care Office Technician Name Role Phone Batsheva Lira JOHN Primary Care Provider [phone] Reason for Visit * Reason Onset Date Comments Results 12/30/2020 Encounter Details Date Type Department Care Team (Late st Contact Info) Description 12/30/2020 Telephone [facility] Surgical Oncology - [address] [id number] Maeve Morales, DO 111 [facility] [place] [address] [place] [phone] Results Social History Tobacco Use Types Packs/Day [...] have Coronavirus / COVID-19? No / Unsure 12/24/2020 5:32 EDT documented as of this encounter Functional [...] encounter Miscellaneous Notes * Telephone Encounter - Maeve Morales DO - 12/30/2020 8801 EDT Called and spoke with Austin about her pathology report. She states she is doing well since surgery.She has some burning pain on the lateral aspects of her incisions. We discussed the fact that her pathology shows the cancer to have remained stable in size. The lymph nodes are negative. She will discuss this finding with Dr. Conde. documented in this encounter Plan of Treatment Upcoming Encounters Date Type Department Care Team (Late st Contact Info) Description 01/31/2024 13:40 EDT Office Visit [facility] Surgical Oncology - [address] [address] Maeve Morales DO 111 [facility], [facility], Level [address] [place] [phone] documented as of this encounter Visit Diagnoses Not on filedocumented in this encounter Care Teams Office Technician Relationship Specialty Start Date End Date Batsheva Lira FNP [address] [phone] PCP - General 02/19/20 07/21/22 documented as of this encounter
--- OUTSIDE RECORDS SUMMARY | 2023-12-10 17:42 | XMS_ITS | Encounter Summary ---
Author Organization [facility] Address [address] [place] [address] Care Team Providers Care Supply Officer Name Role Phone Batsheva Lira JOHN Primary Care Provider [phone] Reason for Visit * Reason Comments Post-OP Follow Up bilateral TE 8.11.21 Encounter Details Date Type Department Care Team (Latest Contact Info) Description 01/08/2021 13:30 EDT Post-op Visit [facility] Plastic, Reconstructive & Cosmetic Surgery - [address], [address] [place] [address] Juanito Carcamo MD [address] [place] [phone] Surgery follow-up (Primary Dx) Social History [...] as of this encounter Progress Notes * Farrukh Ramesh MA - 01/08/2021 1330 EDT Examination chaperoned by FARRUKH RAMESH MA. * Juanito Carcamo MD FACS - 01/08/2021 1330 EDT Austin follows up after her bilateral tissue shook splicer reconstruction with allograft in the prepectoral position on 12/24/2020. Her to superior drains have been removed previously. Her remaining right drain is at criteria and was removed without difficulty. Her tapes/incisions are seem to be clean dryand intact. Her left drain remains and should be ready for removal at the beginning of next week. Post drain removal care was discussed. Patient will follow up with me in 6 weeks from the date of surgery. She knows to call for questions or concerns. documented in this encounter Plan of Treatment Upcoming Encounters Date Type Department Care Team (Late st Contact Info) Description 01/31/2024 13:40 EDT Office Visit [facility] Surgical Oncology - [address] [phone] Maeve Morales, DO 111 [facility], Level [address] [place] [phone] documented as of this encounter Visit Diagnoses Diagnosis Surgery follow-up- Primary Follow-up examination, following unspecified surgery documented in this encounter Care Teams Supply Officer Relationship Specialty Start Date End Date Batsheva Lira FNP [address] [phone] PCP - General 02/19/20 07/21/22 documented as of this encounter
--- OUTSIDE RECORDS SUMMARY | 2023-12-10 17:42 | XMS_ITS | Encounter Summary ---
Author Organization [facility] Address [address] [place] [address] Care Team Providers Care Bank Boss Name Role Phone Batsheva Lira JOHN Primary Care Provider [phone] Reason for Visit * Reason Comments Post-OP Follow Up Drain removal Encounter Details Date Type Department Care Team (Latest Contact Info) Description 01/12/2021 11:30 EDT Nurse Only [facility] Plastic, Reconstructive & Cosmetic Surgery - [address], [address] [place] [address] Nurse, Plastics, RN Encounter for change or removal of drains (Primary Dx) Social History Tobacco Use Types [...] Progress Notes * Mike Gotti RN - 01/12/2021 1130 EDT Patient here to have drain removed from left breast. Drain output met criteria of 20 cc or less fortwo consecutive days. No sign of infection noted at the time of removal. Applied bacitracin and band aid to area and instructed patient to continue this care until drain site is healed. Advised patient to continue antibiotic for 24 hours. Advised patient to watch for any signs of infection-redness,swelling, warm to touch or fever. Patient indicated understanding of instructions and will call clinic with any questions or concerns. Dr. Velazquez available in clinic if needed. MIKE GOTTI RN 01/12/2021 13:00 documented in this encounter Plan of Treatment Upcoming Encounters Date Type Department Care Team (Late st Contact Info) Description 01/31/2024 13:40 EDT Office Visit [facility] Surgical Oncology - [address] [phone] Maeve Morales, DO 111 [facility], [facility], Level [address] [place] [phone] documented as of this encounter Visit Diagnoses Diagnosis Encounter for change or removal of drains- Primary Other specified aftercare following surgery documented in this encounter Care Teams Bank Boss Relationship Specialty Start Date End Date Batsheva Lira FNP [address] [phone] PCP - General 02/19/20 07/21/22 documented as of this encounter
--- OUTSIDE RECORDS SUMMARY | 2023-12-10 17:42 | XMS_ITS | Encounter Summary ---
Author Organization [facility] Address [address] [place] [address] Care Team Providers Care Diamond Driller Helper Name Role Phone Batsheva Lira JOHN Primary Care Provider [phone] Reason for Referral * Radiology Services (Routine) - Authorization Not Required Specialty Diagnoses / Procedures Referred By Jen gonzáles Referred To Contact Nuclear Medicine Diagnoses Malignant neoplasm of left breast in female, estrogen receptor negative, unspecified site of breast ([facility]) Procedures NM INJECTION ONLY SENTINEL NODE BREAST Maeve Morales, DO [address] [place] [address] 2 [place] [address] Referral ID Status Reason Start Date Expiration Date Visits Requested Visits Authorized [id number] Authorization Not Required 12/19/2020 1 1 Reason for Visit * Auth/Cert Specialty Diagnoses / Procedures Referred By Jen gonzáles Referred To Contact Diagnoses Malignant neoplasm of left breast in female, estrogen receptor negative, unspecified site of breast ([facility]) Procedures [place] MASTECTOMY, SIMPLE, COMPLETE [place] BX/REMV,LYMPH NODE,DEEP AXILL [place] INTRAOPERATIVE SENTINEL LYMPH NODE ID W DYE INJECTION [place] INJ RADIOACTIVE TRACER FOR ID OF SENTINEL NODE [place] RMVL ZAHRAA CTR VAD W/SUBQ PORT/MOLD SHIFTER CTR/PRPH INSJ [place] TISSUE HAND ENGRAVER PLACEMENT BREAST RECONSTRUCTION [place] IMPLNT BIO IMPLNT FOR SOFT TISSUE REINFORCEMENT [place] ALLODERM Maeve Morales, DO [address] [facility], Level [address] [place] [address] Referral ID Status Reason Start Date Expiration Date Visits Re quested Visits Authorized [id number] 10/27/2020 05/15/2021 1 1 Encounter Details Date Type Department Care Team (Latest Contact Info) Description 12/24/2020 5:40 EDT - 12/24/2020 23:59 EDT Hospital Encounter [facility] Radiology Nuclear Medicine and PET - [facility] [address] [place] [address] Malignant neoplasm of left breast in female, estrogen receptor negative, unspecified site of breast ([facility]) Discharge Disposition: Home or Self Care [...] Take 2.5 mg by mouth daily. 01/11/2022 cephalexin (KEFLEX) 500 mg capsule Take 1 capsule by mouth 4 times daily for 21 days. 84 capsule 12/25/2020 01/15/2021 escitalopram oxalate (LEXAPRO) 10 mg tablet Take 30 mg by mouth daily. 12/03/2022 HYDROmorphone (DILAUDID) 2 mg tablet Take 1-2 Tablets by mouth every 4 hours as needed for Pain. Daily Max: 24 mg 30 Tablet 12/25/2020 03/26/2021 INTRAUTERINE DEVICE, IUD, INTRAUTERINE by intrauterine route. 01/11/2022 lidocaine-prilocaine (EMLA) cream Apply to port site and cover, 1 hr before planned port access 25 g 1 08/13/2020 03/26/2021 OLANZapine (ZYPREXA) 5 mg tablet Take 1 Tablet by mouth daily. Take 1 tab on day 1 and 2 and 3 of chemotherapy 10 Tablet 1 10/30/2020 12/25/2020 omeprazole (PRILOSEC) 40 mg capsule Take 1 Cap by mouth at bedtime. 30 Cap 2 10/08/2020 12/30/2020 ondansetron (ZOFRAN-ODT) 8 mg disintegrating tablet Take 1 Tab by mouth every 8 hours as needed for Nausea. 60 Tab 2 07/16/2020 12/25/2020 prochlorperazine (COMPAZINE) 10 mg tablet Take 1 Tab by mouth every 6 hours as needed for Nausea. 30 Tab 5 07/22/2020 12/25/2020 triamcinolone acetonide (KENALOG) 0.1 % pasteIndications:Malig nannivia neoplasm of upper-inner quadrant of left breast [...] [facility] - [address] [id number] Maeve Morales DO [address] [facility], [address] [place] [address] documented as of this encounter Procedures Procedure Name Priority Date/Time Associated Diagnosis Comments NM INJECTION ONLY SENTINEL NODE BREAST Routine 12/24/2020 7:13 EDT Malignant neoplasm of left breast in female, estrogen receptor negative, unspecified site of breast (HCC-CMS) documented in this encounter Results * NM INJECTION ONLY SENTINEL NODE BREAST (12/24/2020 7:13 EDT) Anatomical Region Laterality Modality Breast Nuclear Medicine 12/29/2020 10:2 1 EDT Narrative 12/29/2020 10:21 EDT NUCLEAR MEDICINE BREAST INJECTION FOR SENTINEL LYMPH NODE Signs & Symptoms: Left breast cancer. Comparison: None. Technique/Procedure: 1.1 mCi Tc-99m Sulfur Colloid were injected around the breast tumor. ??In addition, 0.23 mCi Tc-99m Sulfur Colloid were injected subdermally over the breast tumor. ??No images were obtained. ?? Procedure Note Chito Sanchez MD - 12/29/2020 NUCLEAR MEDICINE BREAST INJECTION FOR SENTINEL LYMPH NODE Signs & Symptoms: Left breast cancer. Comparison: None. Technique/Procedure: 1.1 mCi Tc-99m Sulfur Colloid were injected around the breast tumor. Inaddition, 0.23 mCi Tc-99m Sulfur Colloid were injected subdermally overthe breast tumor. No images were obtained. Maeve Morales DO IMG NM ORDERABLES documented in this encounter Visit Diagnoses Diagnosis Malignant neoplasm of left breast in female, estrogen receptor negative, unspecified site of breast (HCC-CMS) documented in this encounter Administered Medications Inactive Administered Medications - up to 3 most recent administrations Medication Order MAR Action Action Date Dose Rate Site technetium (Tc-99m) sulfur colloid injection 0.2 millicurie 0.2 millicurie, subcutaneous, NOW X1, 1 dose, On Tue12/24/20 at 0730, Routine Given 12/24/2020 7:07 EDT 0.23 millicuries technetium (Tc-99m) sulfur colloid injection 1 millicurie 1 millicurie, percutaneous, Once in imaging, 1 dose, Starting on Tue12/24/20 at 0711, Until Tue12/24/20 at 0705, Routine Given 12/24/2020 7:05 EDT 1.1 millicuries documented in this encounter Care Teams Diamond Driller Helper Relationship Specialty Start Date End Date Batsheva Lira FNP [facility] [address] PCP - General 02/19/20 07/21/22 documented as of this encounter
--- OUTSIDE RECORDS SUMMARY | 2023-12-10 17:42 | XMS_ITS | Encounter Summary ---
Author Organization [facility] Address [address] [place] [address] Care Team Providers Care Van Helper Name Role Phone Batsheva Lira JOHN Primary Care Provider [phone] Reason for Visit * Auth/Cert Specialty Diagnoses / Procedures Referred By Jen gonzáles Referred To Contact Diagnoses Malignant neoplasm of left breast in female, estrogen receptor negative, unspecified site of breast ([facility]) Procedures [place] MASTECTOMY, SIMPLE, COMPLETE [place] BX/REMV,LYMPH NODE,DEEP AXILL [place] INTRAOPERATIVE SENTINEL LYMPH NODE ID W DYE INJECTION [place] INJ RADIOACTIVE TRACER FOR ID OF SENTINEL NODE [place] RMVL ZARHAA CTR VAD W/SUBQ PORT/HAM DOCTOR CTR/PRPH INSJ [place] TISSUE EXTERIOR DESIGNER PLACEMENT BREAST RECONSTRUCTION [place] IMPLNT BIO IMPLNT FOR SOFT TISSUE REINFORCEMENT [place] Maeve Stack, DO [address] [facility] 2 [place] [address] Referral ID Status Reason Start Date Expiration Date Visits Re quested Visits Authorized [id number] 10/27/2020 05/15/2021 1 1 Encounter Details Date Type Department Care Team (Late st Contact Info) Description 12/24/2020 7:23 EDT Anesthesia Event [facility] OR [address] [place] [address] Annemarie Eastman MD [address] [place] [address] 2 [place] [address] Mary Fan MD Anesthesia Record Procedure Summary Procedure Name Responsible Anesthesiologist Anesthesia Start Time Anesthesia Stop Time Bilateral skin sparing mastectomies, left sentinel lymph node biopsy, right chest wall port removal (Bilateral: Breast) Annemarie Eastman MD 12/24/20 0723 12/24/20 1441 Events Date Time Event Comment 12/24/2020 0723 An Start The patient was re-evaluated immediately before moderate or deep sedation use, before anesthesia induction, or before the anesthesia procedure. 0723 An Start Data 0729 An Induction The patient was reevaluated immediately before moderate or deep sedation use and before anesthesia induction. 0733 An Intubation 0740 Anesthesia Ready 1426 An Extubation 1430 an stop data 1441 Handoff to RN I completed my handoff to the receiving nurse during which we: 1. Identified the patient 2. Identified the responsible provider 3. Reviewed the pertinent medical history 4. Discussed the surgical course 5. Reviewed intra-op anesthesia management and issues during anesthesia 6. Set expectations for post-procedure period 7. Allowed opportunity for questions and acknowledgement of understanding. 1441 An Stop Meds Name Total dexaMETHasone (DECADRON) injection 4 mg/ mL (for IV doses up to 10mg) 8 mg fentanyl citrate (PF) injection 50 mcg HYDROmorphone vial 2 mg/mL 1.6 mg midazolam (versed) 1 mg/mL 2 mL vial 2 m g ondansetron (PF) (ZOFRAN) injection 4 mg lidocaine 2% (PF) injection glass vial 1 00 mg propOFol (DIPRIVAN) injection 1,133,248 mcg rocuronium 10 mg/mL vial 80 mg sugammadex 100 mg/mL 2 mL vial 170 mg ceFAZolin (ANCEF) syringe 2 g 4 g dexmedetomidine injection - vial 50 mcg indocyanine green 25 mg injection 20 mg acetaminophen 10 mg/ml 100 mL infusion 1 ,000 mg lactated ringers (LR) infusion 1,860 mL * Agents Name Insp Isoflurane Exp Isoflurane Insp Desflurane Exp Desflurane Insp Sevoflurane Exp Sevoflurane O2 N2O Air Cumulated Didier Consumption Cumulated Iso Consumption * Blood No blood administrations on file. Lines, Drains, and Airways Type Details Placement Removal IVAD Single Port 08/08/20; 1002; Bard ; Valved; Right Chest, Internal Jugular; IR/Fluoro Guided, Ultrasound Guided; 8; 1% Lido, Sub Q; 2% Chlorhexidine with IPA, 70% IPA; Power Inject; Right Atrium; [id number]; [id number] 08/08/20 1002 by Estrella Westbrook RN Peripheral IV 12/24/20; 0657; 20; 1.25; Right; Hand; Inserted by RN (che); 2; None; 3.15% Chlorhexidine with IPA; 12/25/20; 1238; Discharged 12/24/20 0657 by Liza Kemp RN 12/25/20 1238 by Tami Chowdhury FNP Urethral Catheter 12/24/20; 0730; Inse rted by RN; Intraoperative monitoring; Non-latex; 16 fr; 10 ml; Yes; 12/24/20; 1400 12/24/20 0730 by Laurie Escalera RN 12/24/20 1400 by Joann Diaz RN Wound 12/24/20; 0755; Inci vu; Left; Breast; Skin sparing mastectomy with left sentinel lymph node biopsy and tissue carton repairer reconstruction; N; Full thickness; 06/18/21 12/24/20 0755 by Laurie Escalera RN 06/18/21 0000 by Joann Diaz RN Wound 12/24/20; 0755; Inci vu; Right; Breast; Skin sparing mastectomy with right chest wall port removal and tissue carton repairer reconstruction; N; Full thickness; 06/18/21 12/24/20 0755 by Laurie Escalera RN 06/18/21 0000 by Joann Diaz RN Closed/Suction Drain 12/24/20; 1343; In OR by MD; 1; Right, Lateral; Breast; 15 Indian; 06/18/21 12/24/20 1343 by Joann Diaz RN 06/18/21 0000 by Joann Diaz RN Closed/Suction Drain 12/24/20; 1343; In OR by MD; 2; Right, Lateral; Breast; 15 Indian; 06/18/21 12/24/20 1343 by Joann Diaz RN 06/18/21 0000 by Joann Diaz RN Closed/Suction Drain 12/24/20; 1344; In OR by MD; 3; Left, Lateral; Breast; 15 Indian; 06/18/21 12/24/20 1344 by Joann Diaz RN 06/18/21 0000 by Joann Diaz RN Closed/Suction Drain 12/24/20; 1344; In OR by MD; 4; Left, Lateral; Breast; 15 Indian; 06/18/21 12/24/20 1344 by Joann Diaz RN 06/18/21 0000 by Joann Diaz RN documented in this encounter Social History [...] No 11/21/2020 documented as of this encounter OR Notes * Anesthesia Postprocedure Evaluation - Pavan Sheldon AA - 12/24/2020 1441 EDT Patient: Austin Squires Vital signs were reviewed with the recovery nurse. [facility] Vitals Value Taken Time BP 108/57 12/24/20 1432 Temp 37.2 12/24/20 1441 Resp 13 12/24/20 1441 Pulse From Oximetry 94 BPM 12/24/20 1441 SpO2 99 % 12/24/20 1441 Vitals shown include unvalidated device data. Last Pain Score - Type of Anesthesia - general Anesthesia Post Evaluation Post-procedure vitals reviewed and are stable. Level of consciousness: responsive/arousable to verbal stimuli Temperature status: normothermia Respiratory status: airway patent and nasal cannula Cardiovascular status: appropriate for condition, acceptable, stable and within patient's normal range Hydration status: adequate Nausea/Vomiting: none Pain management: adequate Post-Op Assessment: patient tolerated procedure well with no complications Patient participation: unable to participate due to sedation Disposition: inpatient Anesthesia Complications: No apparent anesthesia complications * Anesthesia Procedure Notes - Mary Fan MD - 12/24/2020 0756 EDT Associated Order(s): Airway Airway Date/Time: 12/24/2020 7:33 Urgency: elective General Information and Staff Patient location during procedure: OR Resident/REVENUE LIAISON: Mary Fan MD Performed: resident/REVENUE LIAISON/KARLY Indications and Patient Condition Indications for airway management: anesthesia Sedation level: GA Preoxygenated: yes Patient position: sniffing Ventilation assessment: 1 - Easy Final Airway Details Final airway type: endotracheal airway Successful airway: ETT Cuffed: yes Successful intubation technique: direct laryngoscopy Facilitating devices/methods: intubating stylet Endotracheal tube insertion site: oral Blade: Thanh Blade size: #3 ETT size (mm): 7.0 Cormack-Lehane Classification: grade IIb - view of arytenoids or posterior of glottis only Placement verified by: chest auscultation and capnometry Measured from: teeth ETT to teeth (cm): 21 Number of attempts at approach: 1 * Anesthesia Preprocedure Evaluation - Mary Fan MD - 12/23/2020 1423 EDT Anesthesia Preprocedure Evaluation Austin Squires is a 45 yo woman with PMHx of kidney stones and breast cancer presenting for bilateral skin sparing mastectomies, left sentinel lymph node biopsy, right chest wall port removal, sentinel node biopsy, bilateral tissue carton repairer reconstruction Surgical hx: cholecystectomy Meds: amlodipine, lexapro, olanzapine, zofran, compazine Allergies: oxycodone, zofran - limit dose d/d being on lexapro Social: 15 pack year smoking hx, quit 09/2020. Rare alcohol use Patient Medical History, including Anesthesia History reviewed. Chart and Nursing Notes reviewed, including NPO status and Medication History. Additional ROS/History Findings: TTE 10/08/20 ? ? Left Ventricle: Left ventricular systolic function was hyperdynamic with an ejection fraction =>65%. ??? Left Ventricle: Left ventricular diastolic parameters were normal. ??? Left Ventricle: Global longitudinal strain was normal. ??? Right Ventricle: Right ventricular systolic function was normal. Allergies Allergen Reactions ??? Ondansetron Other (See Comments) Dose to be limited to under 16mg daily while on Lexapro as EKG showed QTC as 0.4 ??? Oxycodone Other (See Comments) Made her hyper Review of Systems Constitutional: Negative for chills and fever. Respiratory: Negative for cough, shortness of breath and wheezing. Cardiovascular: Negative for chest pain and palpitations. Gastrointestinal: Negative for heartburn and nausea. Musculoskeletal: Negative for neck pain. Endo/Heme/Allergies: Does not bruise/bleed easily. Past Medical History: Diagnosis Date ??? Activity, other involving cardiorespiratory exercise just signed up for steps to wellness ??? Bladder incontinence ??? Exercise involving housework ??? 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 ??? Head trauma 2/4/21 fell on ice. No loss of consciosness ??? History of general anesthesia ??? History of kidney stones past 3 stone ??? Poor dentition ??? Urgency of urination stress inc. Relevant Problems No relevant active problems Physical Exam Airway Mallampati: II TM distance: >3 FB Neck ROM: full Cardiovascular - normal exam Rhythm: regular Rate: normal Dental - normal exam Pulmonary Breath sounds clear to auscultation Abdominal Anesthesia Plan ASA 2 Anesthesia Type - general Anesthesia plan and risks discussed. Informed consent obtained from patient. Specific risks discussed were dental injury, nausea and vomiting. PAT Note PAT Note by Ghazala Garcia RN at 12/19/2020 15:38 Version [address] Queenie Conde's 07/22/20 note, Austin has been cautioned to not take ondansetron given that sheis on Lexapro. We did a EKG today and her QTC is 0.4. I encouraged her to try to keep her ondansetron use under 16 mg daily. documented in this encounter Plan of Treatment Upcoming Encounters Date Type Department Care Team (Late st Contact Info) Description 01/31/2024 13:40 EDT Office Visit [facility] Surgical Oncology - [address] [address] Maeve Morales, DO [address] [facility], Level [address] [place] [address] documented as of this encounter Procedures Procedure Name Priority Date/Time Associated Diagnosis Comments ANESTHESIA INTUBATION Routine 12/24/2020 7:33 EDT documented in this encounter Results * Airway (12/24/2020 7:33 EDT) Narrative Mary Fan MD - 12/24/2020 7:33 EDT Mary Fan MD ? 12/24/2020 ??7:56 Airway Date/Time: 12/24/2020 7:33 Urgency: elective General Information and Staff Patient location during procedure: OR Resident/REVENUE LIAISON: Mary Fan MD Performed: resident/REVENUE LIAISON/AA Indications and Patient Condition Indications for airway management: anesthesia Sedation level: GA Preoxygenated: yes Patient position: sniffing Ventilation assessment: 1 - Easy Final Airway Details Final airway type: endotracheal airway Successful airway: ETT Cuffed: yes Successful intubation technique: direct laryngoscopy Facilitating devices/methods: intubating stylet Endotracheal tube insertion site: oral Blade: Thanh Blade size: #3 ETT size (mm): 7.0 Cormack-Lehane Classification: grade IIb - view of arytenoids or posterior of glottis only Placement verified by: chest auscultation and capnometry Measured from: teeth ETT to teeth (cm): 21 Number of attempts at approach: 1 Annemarie Eastman MD ANESTHESIA ORDERABLE S documented in this encounter Visit Diagnoses Not on filedocumented in this encounter Administered Medications Inactive Administered Medications - up to 3 most recent administrations Medication Order MAR Action Action Date Dose Rate Site acetaminophen (OFIRMEV) IV solution intravenous, PRN, Starting on Tue12/24/20 at 1316, Until Tue12/24/20 at 1441, Routine, Anesthesia Intraprocedure Given 12/24/2020 13:16 EDT 1,000 mg ceFAZolin (ANCEF) syringe 2 g 2 g, intravenous, Administer over 10 Minutes, PRE-OP ONCE, 1 dose, On Tue12/24/20 at 0630, Routine, Preprocedure Given 12/24/2020 11:50 EDT 2 g Given 12/24/2020 7:40 EDT 2 g dexAMETHasone (DECADRON) injection intravenous, PRN, Starting on Tue12/24/20 at 0735, Until Tue12/24/20 at 1441, Routine, Anesthesia Intraprocedure Given 12/24/2020 7:35 EDT 8 mg dexmedeTOMIDine (PRECEDEX) injection intravenous, PRN, Starting on Tue12/24/20 at 0755, Until Tue12/24/20 at 1441, Routine, Anesthesia Intraprocedure Given 12/24/2020 11:49 EDT 10 mcg Given 12/24/2020 10:30 EDT 10 mcg Given 12/24/2020 9:54 EDT 10 mcg fentaNYL citrate (PF) injection intravenous, PRN, Starting on Tue12/24/20 at 0729, Until Tue12/24/20 at 1441, Routine, Anesthesia Intraprocedure Given 12/24/2020 7:29 EDT 50 mcg HYDROmorphone (DILAUDUD) 2 mg/mL injection intravenous, PRN, Starting on Tue12/24/20 at 0817, Until Tue12/24/20 at 1441, Routine, Anesthesia Intraprocedure Given 12/24/2020 12:06 EDT 0.4 mg Given 12/24/2020 10:28 EDT 0.2 mg Given 12/24/2020 9:09 EDT 0.8 mg indocyanine green (IC-GREEN) injection intravenous, PRN, Starting on Tue12/24/20 at 1205, Until Tue12/24/20 at 1441, Routine, Anesthesia Intraprocedure Given 12/24/2020 14:10 EDT 10 mg Given 12/24/2020 12:05 EDT 10 mg lactated ringers (LR) infusion at 25 mL/hr, intravenous, CONTINUOUS, Starting on Tue12/24/20 at 0630, Until Tue12/24/20 at 1702, Routine, Preprocedure New Bag 12/24/2020 10:34 EDT 75 mL/hr Continued by Anesthesia 12/24/2020 7:23 EDT 75 mL/hr New Bag 12/24/2020 7:22 EDT 50 mL/hr lidocaine (PF) 20 mg/mL (2 %) injection intravenous, PRN, Starting on Tue12/24/20 at 0729, Until Tue12/24/20 at 1441, Routine, Anesthesia Intraprocedure Given 12/24/2020 7:29 EDT 100 mg midazolam (PF) (VERSED) injection intravenous, PRN, Starting on Tue12/24/20 at 0730, Until Tue12/24/20 at 1441, Routine, Anesthesia Intraprocedure Given 12/24/2020 7:27 EDT 2 mg ondansetron (PF) (ZOFRAN) injection intravenous, PRN, Starting on Tue12/24/20 at 1335, Until Tue12/24/20 at 1441, Routine, Anesthesia Intraprocedure Given 12/24/2020 13:35 EDT 4 mg propOFol (DIPRIVAN) injection intravenous, PRN, Starting on Tue12/24/20 at 0730, Until Tue12/24/20 at 1441, Routine, Anesthesia Intraprocedure Rate Change 12/24/2020 14:04 EDT 100 mcg/kg/min 50.52 mL/hr Rate Change 12/24/2020 13:50 EDT 120 mcg/kg/min 60.624 mL/ hr Rate Change 12/24/2020 13:19 EDT 100 mcg/kg/min 50.52 mL/h r rocuronium (ZEMURON) injection intravenous, PRN, Starting on Tue12/24/20 at 0730, Until Tue12/24/20 at 1441, Routine, Anesthesia Intraprocedure Given 12/24/2020 11:58 EDT 30 mg Given 12/24/2020 7:30 EDT 50 mg sugammadex (BRIDION) injection intravenous, PRN, Starting on Tue12/24/20 at 1416, Until Tue12/24/20 at 1441, Routine, Anesthesia Intraprocedure Given 12/24/2020 14:16 EDT 170 mg documented in this encounter Care Teams Van Helper Relationship Specialty Start Date End Date Batsheva Lira FNP [address] [address] PCP - General 02/19/20 07/21/22 documented as of this encounter
--- OUTSIDE RECORDS SUMMARY | 2023-12-10 17:42 | XMS_ITS | Encounter Summary ---
Author Organization [facility] Address [address] [place] [address] Care Team Providers Care Rad Tech Name Role Phone Batsheva Lira JOHN Primary Care Provider Reason for Visit * Reason Onset Date Comments Appointment Related 01/13/2021 Encounter Details Date Type Department Care Team (Late st Contact Info) Description 01/13/[address] [facility] Rehabilitation Therapy - [facility] [address] [place] [address] Katia Hughes, PT [address] [place] [address] Appointment Related Social History Tobacco [...] Miscellaneous Notes * Telephone Encounter - Katia Hughes, PT - 01/13/2021 0806 EDT Returned patients phone call re scheduling of STW evaluation. Patient underwent bilateral mastectomies ~ 3 weeks ago. Patient has multiple MD appts this week. Patients reports upcoming surgery in Febfor incontinence issue that had been put on hold due to breast cancer treatments. Patient wanting to be more active but not certain what she can do as so tired with daily tasks. Patient encouraged to use ue's in all range of motion as tolerated with daily activities and begin walking program, working up to 30 min 5 days a week over next 6 weeks. Encouraged to keep appt w Dary Gómez Lymphedema PT for consult 01/26/21as she could give her some guidance in self massage and range of motion exercise. Lastly, will reschedule STW eval, most likely will be end of Jan. documented in this encounter Plan of Treatment Upcoming Encounters Date Type Department Care Team (Late st Contact Info) Description 01/31/2024 13:40 EDT Office Visit [facility] Surgical Oncology - [facility] [address] [place] [address] Maeve Morales, 111 [facility], [address] [place] [phone] documented as of this encounter Visit Diagnoses Not on filedocumented in this encounter Care Teams Rad Tech Relationship Specialty Start Date End Date Batsheva Lira FNP [address] [address] PCP - General 02/19/20 07/21/22 documented as of this encounter
--- OUTSIDE RECORDS SUMMARY | 2023-12-10 17:42 | XMS_ITS | Encounter Summary ---
Author Organization [facility] Address [address] [place] [address] Care Team Providers Care Grinding Wheel Facer Name Role Phone Batsheva Lira JOHN Primary Care Provider [phone] Reason for Visit * Reason Onset Date Comments Social Work 01/15/2021 financial Encounter Details Date Type Department Care Team (Late st Contact Info) Description 01/15/2021 Telephone [facility] Hematology & Oncology - [facility] [address], [place] [phone] Veronique Dye Social Work (financial) Social History Tobacco Use Types Packs/Day Years [...] * Telephone Encounter - Veronique Dye - 01/15/2021 1318 EDT Per Yoel Antunez RN, pt's case will be reviewed at tumor board on 01/22 and then pt has a f/u with Dr. Conde on 01/27. PN will reach out to pt next week to see if I can set up a time to talk with her about finances. documented in this encounter Plan of Treatment Upcoming Encounters Date Type Department Care Team (Late st Contact Info) Description 01/31/2024 13:40 EDT Office Visit [facility] Surgical Oncology - [address] [address] Maeve Morales, DO 111 [facility], [facility], [address] [place] [address] documented as of this encounter Visit Diagnoses Not on filedocumented in this encounter Care Teams Grinding Wheel Facer Relationship Specialty Start Date End Date Batsheva Lira FNP [address] [place] [phone] PCP - General 02/19/20 07/21/22 documented as of this encounter
--- OUTSIDE RECORDS SUMMARY | 2023-12-10 17:42 | XMS_ITS | Encounter Summary ---
Author Organization [facility] Address [address] [place] [address] Care Team Providers Care Television News Photographer Name Role Phone Batsheva Lira JOHN Primary Care Provider Reason for Visit * Reason Onset Date Comments Appointment Related 01/27/2021 Encounter Details Date Type Department Care Team (Late st Contact Info) Description 01/27/2021 Telephone [facility] Rehabilitation Therapy - [facility] [address] [place] [address] Therapist, Physical, PT Appointment Related Social History Tobacco Use Types [...] Telephone Encounter - Katia Hughes, PT - 01/28/2021 1206 EDT Returned call to Austin to answer her questions re STW program. Patient has 6 wk post spacer surgerywith Dr. Bolivar 02/04/21. PT evaluation scheduled for 02/13 to assess patient's readiness for the Steps to Wellness program. Communicated to patient most likely would not start program until beginning of March. Encouraged patient to schedule a f/u with Dary Gómez lymphedema PT for education on strategies to decrease risk for lymphedema as there was no f/u noted in prism today. * Telephone Encounter - Karla Calderon - 01/27/2021 1531 EDT Austin called to talk with the person she spoke with when she scheduled the Steps to Wellness appointments. The person was helpful in telling her what she could do prior to her appointment. Austin has a few more questions and is hoping someone could get back to her. documented in this encounter Plan of Treatment Upcoming Encounters Date Type Department Care Team (Late st Contact Info) Description 01/31/2024 13:40 EDT Office Visit [facility] Surgical Oncology - [facility] [address] [place] [address] Maeve Morales, 111 [facility], Level 2 [place] [phone] documented as of this encounter Visit Diagnoses Not on filedocumented in this encounter Care Teams Television News Photographer Relationship Specialty Start Date End Date Batsheva Lira FNP [address] [phone] PCP - General 02/19/20 07/21/22 documented as of this encounter
--- OUTSIDE RECORDS SUMMARY | 2023-12-10 17:42 | XMS_ITS | Encounter Summary ---
Author Organization [facility] Address [address] [place] [address] Care Team Providers Care Baked Goods Stock Clerk Name Role Phone Batsheva Lira JOHN Primary Care Provider [phone] Encounter Details Date Type Department Care Team (Latest Contact Info) Description 01/08/2021 Travel Social History Tobacco Use Types Packs/Day [...] Info) Description 01/31/2024 13:40 EDT Office Visit [facility] Surgical Oncology - [address] [address] Maeve Morales, 111 [facility], [facility], [address] [place] [phone] documented as of this encounter Visit Diagnoses Not on filedocumented in this encounter Care Teams Baked Goods Stock Clerk Relationship Specialty Start Date End Date Batsheva Lira FNP [address] [phone] PCP - General 02/19/20 07/21/22 documented as of this encounter
--- OUTSIDE RECORDS SUMMARY | 2023-12-10 17:42 | XMS_ITS | Encounter Summary ---
Author Organization [facility] Address [address] [place] [address] Care Team Providers Care Safety Council Director Name Role Phone Batsheva Lira JOHN Primary Care Provider [phone] Reason for Visit * Reason Onset Date Comments Post-OP Follow Up 01/12/2021 Encounter Details Date Type Department Care Team (Late st Contact Info) Description 01/12/2021 Telephone [facility] Plastic, Reconstructive & Cosmetic Surgery - [address], [address] [place] [address] Juanito Carcamo MD [address] [phone] Post-OP Follow Up Social History Tobacco Use [...] encounter Miscellaneous Notes * Telephone Encounter - Mary Stanton - 01/12/2021 0850 EDT Left message for patient to call back and confirm appt at 1030 or 1130 * Telephone Encounter - Mary Stanton - 01/12/2021 0822 EDT Ready to have drain removed output has been 10cc for the last 2 days documented in this encounter Plan of Treatment Upcoming Encounters Date Type Department Care Team (Late st Contact Info) Description 01/31/2024 13:40 EDT Office Visit [facility] Surgical Oncology - [address] [address] Maeve Morales, DO 111 [facility], [facility], [address] [place] [phone] documented as of this encounter Visit Diagnoses Not on filedocumented in this encounter Care Teams Safety Council Director Relationship Specialty Start Date End Date Batsheva Lira FNP [address] [phone] PCP - General 02/19/20 07/21/22 documented as of this encounter
--- OUTSIDE RECORDS SUMMARY | 2023-12-10 17:42 | XMS_ITS | Encounter Summary ---
Author Organization [facility] Address [address] [place] [address] Care Team Providers Care Chief Specialist Leed Name Role Phone Batsheva Lira JOHN Primary Care Provider [phone] Encounter Details Date Type Department Care Team (Late st Contact Info) Description 01/27/2021 Orders Only [facility] Cancer Center Hematology & Oncology - [address] [address] Vivian Brito, RN Malignant neoplasm of upper-inner quadrant of left [...] EDT Office Visit [facility] Surgical Oncology - [address] [address] Maeve Morales, 111 [facility], [facility], [address] [place] [address] documented as of this encounter Visit Diagnoses Diagnosis Malignant 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, estrogen receptor negative (HCC-CMS)- Primary documented in this encounter Care Teams Chief Specialist Leed Relationship Specialty Start Date End Date Batsheva Lira FNP [address] [phone] PCP - General 02/19/20 07/21/22 documented as of this encounter
--- OUTSIDE RECORDS SUMMARY | 2023-12-10 17:42 | XMS_ITS | Encounter Summary ---
Author Organization [facility] Address [address] [place] [address] Care Team Providers Care Drawbridge Operator Name Role Phone Batsheva Lira JOHN Primary Care Provider [phone] Reason for Visit * Reason Comments Follow-up Encounter Details Date Type Department Care Team (Late st Contact Info) Description 01/27/2021 10:00 EDT Office Visit [facility] Cancer Center Hematology & Oncology - [facility] [address] [place] [address] [place] [address] [place] [phone] Malignant neoplasm of upper-inner quadrant of left [...] Sign Reading Time Taken Comments Blood Pressure 119/84 01/27/2021 1056 EDT Pulse 95 01/27/2021 1056 EDT Temperature 36.2 ??C (97.1 ??F) 01/27/2021 1056 EDT Respiratory Rate 16 01/27/2021 1056 EDT Oxygen Saturation 95% 01/27/2021 1056 EDT Inhaled Oxygen Concentration - - Weight - [...] 7 days. 112 Tablet 5 02/06/2021 04/06/2021 documented in this encounter Progress Notes * Queenie Conde MD - 01/27/2021 1000 EDT REASON FOR OFFICE VISIT Austin is a 45 y.o. being seen for consideration of adjuvant chemotherapy for her triple negative breast cancer HISTORY OF PRESENT ILLNESS: Austin's pool hall inspector noticed a mass in 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?She then underwent imaging and a biopsy on 07/09/20??of a 2.1 cm mass revealed a nuclear grade [address] negative for B2 negative ductal carcinoma.??Staging evaluation did reveal a prominent L IM lymphnode but ot herwise negative. Given her triple negative histology??she began??starting taxol/carboplatinum as part of the SIKOV Regimen??on July 22, 2020.?? Genetic testing was negative( a 9 gene panel performedthrough [employer] was performed ). Bilateral mastectomies performed on December 24 revealed 2.5 cm of a poorly differentiated ductal carcinoma. All margins were negative. 0/3 nodes were positive. Contralateral breast was benign. PD-L1 testing appears to be negative. Her case was discussed at tumor board and she was felt to be a good candidate for adjuvant capecitabine. ?? SUBJECTIVE: Austin??is here with her father. She is healing quite well and noticing improved energy, strength and range of motion. Her drains have been removed. Her system review is otherwise without new??constitutional, cardiovascular, pulmonary, GI, ,EPIDEMIOLOGIST, musculoskeletal, psychiatric, neurologic, endocrine, or heme symptoms. ?? PAST MEDICAL HISTORY: 1.?Urinary incontinence 2.?Hypertension, well-controlled 3.?History of kidney stones,??none for the past 6 years 4.?Cholecystectomy in 2018 ?? MEDS Amlodipine,??Mirena IUD, Lexapro,??omeprazole,??Ultram,??Chantix, Compazine, ondansetron. ?? MENSTRUAL HISTORY:Austin is unclear when she [...] his 90s. ??Her paternal relatives are of [place] descent. DIAGNOSTIC DATA Lab Results Component Value Date WBC 6.13 01/27/2021 WBC 6.13 01/27/2021 HGB 14.3 01/27/2021 HGB 14.3 01/27/2021 PLT 259 01/27/2021 PLT 259 01/27/2021 CREATININE 0.45 (L) 01/27/2021 CALCCA 9.1 01/27/2021 CALCIUM 10.0 01/27/2021 ALT 158 (H) 01/27/2021 AST 121 (H) 01/27/2021 ASSESSMENT: Austin is??a 44-year old female with triple negative breast cancer (clinical T2N0)??currently getting neoadjuvant chemotherapy. ??She completed 4 cycles of Taxol and carboplatinum?? followed by 4 cycles of Adriamycin and Cytoxan. ?? Bilateral mastectomies revealed a residual 2.5 cm of poorly differentiated ductal carcinoma with no clear evidence of response. Her case was discussed at tumor board. PD-L1 testing appears to be negative therefore her only option for adjuvant therapy is capecitabine per the CREATE X trial. We discussed her risk of recurrence again and options to address this risk. We reviewed the risk benefit profile of adjuvant capecitabine and agreed to start this after she restarts her implant cells. She reports having her first fill on 02/05. Austin has had some elevation of her liver enzymes and they appear to be higher still today. We willrecheck in 1 week. ?? I discussed with Austin that she can taper her omeprazole if she likes. She is still smoking and wasencouraged to stop. She may be eligible for the project reach clinical trial through [employer] for cancer survivors who smoke. ?? PLAN: 1. Austin will have blood work drawn in 1 week to f/u her liver enzymes. 2. Austin will have teaching regarding capecitabine chemotherapy 3. Austin will initiate capecitabine the week of 02/09/2121 at a dose of 2000 mg twice daily 4. Austin will return 3 weeks after initiation of chemotherapy to assess her toxicity. 5. Today I spent more than??45??minutes reviewing records, coordinating care, talking with Austin??and her father and documenting this visit ?? Queenie Conde MD documented in this encounter Plan of Treatment Upcoming Encounters Date Type Department Care Team (Late st Contact Info) Description 01/31/2024 13:40 EDT Office Visit [facility] Surgical Oncology - [address] [address] Maeve Morales, DO [address] [place] [address], [address] [place] [address] documented as of this encounter Procedures Procedure Name Priority Date/Time Associated Diagnosis Comments COMPREHENSIVE METABOLIC PANEL (ONCOLOGY USE ONLY-INC MG) STAT 01/27/2021 11:41 EDT Malignant 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, estrogen receptor negative (HCC-CMS) COMPLETE BLOOD COUNT AND DIFF, CHEMO STAT 01/27/2021 11:41 EDT Malignant 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, estrogen receptor negative (HCC-CMS) COMPLETE BLOOD COUNT AND DIFFERENTIAL Routine 01/27/2021 11:41 EDT Malignant 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, estrogen receptor negative (HCC-CMS) documented in this encounter Results * COMPLETE BLOOD COUNT AND DIFF, CHEMO (01/27/2021 11:41 EDT) WBC 6.13 4.00 - 12.40 K/cmm 01/27/2021 12:01 [facility] RBC 4.63 3.86 - 5.04 M/cmm 01/27/2021 12:01 [facility] Hemoglobin 14.3 11.6 - 15.2 gm/dL 01/27/2021 12:01 [facility] HCT 43.0 34.9 - 44.4 % 01/27/2021 12:01 [facility] MCV 93 81 - 98 fl 01/27/2021 12:01 [facility] MCH 30.9 26.7 - 33.3 pg 01/27/2021 12:01 [facility] MCHC 33.3 32.1 - 35.9 gm/dL 01/27/2021 12:01 [facility] RDW-CV 12.8 <14.7 % 01/27/2021 12:01 [facility] RDW-SD 43.7 <50.4 fl 01/27/2021 12:01 [facility] PLT 259 141 - 377 K/cmm 01/27/2021 12:01 [facility] MPV 9.5 9.5 - 12.7 fl 01/27/2021 12:01 [facility] % Neutrophils 58.7 % 01/27/2021 12:01 [facility] Absolute Neutrophils 3.60 2.20 - 8.85 K/cmm 01/27/2021 12:01 [facility] Type of Differential: Auto 01/27/2021 12:01 [facility] Blood VENOUS BLOOD / Unknown Venipuncture / Unknown 01/27/2021 11:41 EDT 01/27/2021 11:48 EDT Queenie Conde MD PACKAGES & DNA PROBE ORDERABLES [facility] [address] [place] [address] * (ABNORMAL) COMPREHENSIVE METABOLIC PANEL (ONCOLOGY USE ONLY-INC MG) (01/27/2021 11:41 EDT) Sodium 140 136 - 145 mmol/L 01/27/2021 12:10 [facility] Potassium 4.2 3.5 - 5.0 mEq/L 01/27/2021 12:10 [facility] Chloride 104 96 - 110 mEq/L 01/27/2021 12:10 [facility] CO2 Total 21(L) 22 - 32 mEq/L 01/27/2021 12:10 [facility] Glucose 121(H) 70 - 100 mg/dL 01/27/2021 12:10 [facility] BUN 16 10 - 26 mg/dL 01/27/2021 12:10 [facility] Creatinine 0.45(L) 0.52 - 1.04 mg/dL 01/27/2021 12:10 [facility] eGFR 121 >60 mL/min/1.7 3m2 01/27/2021 12:10 [facility] Comment:eGFR calculated mata asif CKD-EPI equation for non- Americans. Multiply eGFR by 1.16 for patients. Total Protein 8.0 6.3 - 8.2 g/dL 01/27/2021 12:10 [facility] Albumin 5.1(H) 3.4 - 4.9 g/dL 01/27/2021 12:10 [facility] Alkaline Phosphatase 151(H) 38 - 126 U/L 01/27/2021 12:10 [facility] AST 121(H) 15 - 46 U/L 01/27/2021 12:10 [facility] ALT 158(H) <35 U/L 01/27/2021 12:10 [facility] Bilirubin, Total <0.5 <1.4 mg/dL 01/28/20 12:10 [facility] Calcium 10.0 8.5 - 10.5 mg/dL 01/27/2021 12:10 [facility] Calculated Calcium 9.1 8.5 - 10.5 mg/dL 01/27/2021 12:10 [facility] Magnesium 1.9 1.7 - 2.8 mg/dL 01/27/2021 12:10 [facility] Blood VENOUS BLOOD / Unknown Venipuncture / Unknown 01/27/2021 11:41 EDT 01/27/2021 11:48 EDT Queenie Conde MD CHEMISTRY & BLOOD GA S ORDERABLES [facility] [address] [place] [address] * COMPLETE BLOOD COUNT AND DIFFERENTIAL (01/27/2021 11:41 EDT) WBC 6.13 4.00 - 12.40 K/cmm 01/27/2021 12:01 [facility] RBC 4.63 3.86 - 5.04 M/cmm 01/27/2021 12:01 [facility] Hemoglobin 14.3 11.6 - 15.2 gm/dL 01/27/2021 12:01 [facility] HCT 43.0 34.9 - 44.4 % 01/27/2021 12:01 [facility] MCV 93 81 - 98 fl 01/27/2021 12:01 [facility] MCH 30.9 26.7 - 33.3 pg 01/27/2021 12:01 [facility] MCHC 33.3 32.1 - 35.9 gm/dL 01/27/2021 12:01 [facility] RDW-CV 12.8 <14.7 % 01/27/2021 12:01 [facility] RDW-SD 43.7 <50.4 fl 01/27/2021 12:01 [facility] PLT 259 141 - 377 K/cmm 01/27/2021 12:01 [facility] MPV 9.5 9.5 - 12.7 fl 01/27/2021 12:01 [facility] % Neutrophils 58.7 % 01/27/2021 12:01 [facility] % Lymphocytes 23.8 % 01/27/2021 12:01 [facility] % Monocytes 9.8 % 01/27/2021 12:01 [facility] % Eosinophils 6.5 % 01/27/2021 12:01 [facility] % Basophils 1.0 % 01/27/2021 12:01 [facility] % Immature Grans 0.2 % 01/28/20 12:01 [facility] Absolute Neutrophils 3.60 2.20 - 8.85 K/cmm 01/27/2021 12:01 [facility] Absolute Lymphocytes 1.46 1.09 - 3.30 K/cmm 01/27/2021 12:01 [facility] Absolute Monocytes 0.60 0.10 - 0.80 K/cmm 01/27/2021 12:01 [facility] Absolute Eosinophils 0.40 0.03 - 0.61 K/cmm 01/27/2021 12:01 [facility] ABS Basophils 0.06 0.01 - 0.11 K/cmm 01/27/2021 12:01 [facility] Absolute Immature Grans 0.01 0.00 - 0.06 K/cmm 01/27/2021 12:01 [facility] Type of Differential: Auto 01/27/2021 12:01 [facility] Blood VENOUS BLOOD / Unknown Venipuncture / Unknown 01/27/2021 11:41 EDT 01/27/2021 11:48 EDT Queenie Conde MD PACKAGES & DNA PROBE ORDERABLES [facility] [address] [place] [address] documented in this encounter Visit Diagnoses Diagnosis Malignant 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, estrogen receptor negative (HCC-CMS)- Primary documented in this encounter Orders Lab Orders Without Results Count Last Ordered D ate First Ordered Date COMPREHENSIVE METABOLIC PANEL (CMP) 1 01/27 documented in this encounter Care Teams Drawbridge Operator Relationship Specialty Start Date End Date Batsheva Lira FNP [address] [phone] PCP - General 02/19/20 07/21/22 documented as of this encounter
--- OUTSIDE RECORDS SUMMARY | 2023-12-10 17:42 | XMS_ITS | Encounter Summary ---
Author Organization Health system Address [address] [place] [address] Care Team Providers Care Managed Care Director Name Role Phone Batsheva Lira JOHN Primary Care Provider [phone] Encounter Details Date Type Department Care Team (Late st Contact Info) Description 01/27/2021 Documentation Visit [facility] Cancer Center Hematology & Oncology - [facility] [address] [place] [address] Vivian Brito, RADHA Social History Tobacco Use Types Packs/Day Years [...] of this encounter Progress Notes * Vivian Brito, RN - 01/27/2021 1811 EDT Patient Education Topic: Discussed with Austin her new chemotherapy regimen Capecitabine. Written medication information packet given to patient.Austin has demonstrated a readiness to learn asking appropriate questions. No barriers to understanding were identified. Method: Handout and Verbal Taught to: Family and Patient Barriers: None Outcomes: verbalized understanding documented in this encounter Plan of Treatment Upcoming Encounters Date Type Department Care Team (Late st Contact Info) Description 01/31/2024 13:40 EDT Office Visit [facility] Surgical Oncology - [address] [phone] Maeve Morales, 111 [facility], [address] [place] [phone] documented as of this encounter Visit Diagnoses Not on filedocumented in this encounter Care Teams Managed Care Director Relationship Specialty Start Date End Date Batsheva Lira FNP [address] [place] [phone] PCP - General 02/19/20 07/21/22 documented as of this encounter
--- OUTSIDE RECORDS SUMMARY | 2023-12-10 17:42 | XMS_ITS | Encounter Summary ---
Author Organization [facility] Address [address] [place] [address] Care Team Providers Care Girls Tennis Coach Name Role Phone Batsheva Lira JOHN Primary Care Provider [phone] Encounter Details Date Type Department Care Team (Late st Contact Info) Description 12/20/2020 Orders Only [facility] Radiology - [facility] [address] [place], [place] [id number] Ric Mccloud MD 111 [facility], [place], [address] [place] [address] Social History Tobacco Use Types Packs/Day Years [...] No 11/21/2020 documented as of this encounter Plan of Treatment Upcoming Encounters Date Type Department Care Team (Late st Contact Info) Description 01/31/2024 13:40 EDT Office Visit [facility] Surgical Oncology - [address] [address] Maeve Morales, [address], [address] [place] [phone] documented as of this encounter Visit Diagnoses Not on filedocumented in this encounter Care Teams Girls Tennis Coach Relationship Specialty Start Date End Date Batsheva Lira FNP [address] [phone] PCP - General 02/19/20 07/21/22 documented as of this encounter
--- OUTSIDE RECORDS SUMMARY | 2023-12-10 17:42 | XMS_ITS | Encounter Summary ---
Author Organization [facility] Address [address] [place] [address] Care Team Providers Care Recreation Therapy Teacher Name Role Phone Batsheva Lira JOHN Primary Care Provider [phone] Reason for Visit * Reason Comments Post-OP Follow Up Encounter Details Date Type Department Care Team (Late st Contact Info) Description 01/21/2021 10:20 EDT Post-op Visit [facility] Surgical Oncology - [address] [id number] Maeve Morales, DO 111 [facility], Level 2 [place] [phone] Malignant neoplasm of upper-inner quadrant of left [...] 11:20 EDT documented as of this encounter Last Filed Vital Signs Vital Sign Reading Time Taken Comments Blood Pressure 130/80 01/21/2021 1021 EDT Pulse 97 01/21/2021 1021 EDT Temperature 36.3 ??C (97.4 ??F) 01/21/2021 1021 EDT Respiratory Rate 12 01/21/2021 1021 EDT Oxygen Saturation - - Inhaled Oxygen [...] Progress Notes * Maeve Morales, DO - 01/21/2021 1020 EDT Austin is seen in the office today for a postoperative evaluation following bilateral mastectomies and a left sentinel lymph node biopsy. She states she is doing reasonably well since surgery. She stopped using pain medication recently. She has been seen in plastics and had her drains pulled. Her overall fatigue level is improving and in fact she feels she really did a little bit too much over thelast couple of days. On exam she has well-healing surgical scars there is no evidence of erythema or exudate Medical decision making we discussed her pathology report which unfortunately showed that she did not have a significant response to her neoadjuvant chemotherapy. She will be meeting with Dr. Queenie Conde to discuss this after tumor board. I will plan to see Austin back in 6 months for clinical exam, sooner if there are any issues. Thank you for allowing me to participate in the care of this very pleasant patient. documented in this encounter Plan of Treatment Upcoming Encounters Date Type Department Care Team (Late st Contact Info) Description 01/31/2024 13:40 EDT Office Visit [facility] Surgical Oncology - [facility] [address] [place], [place] [id number] Maeve Morales DO 111 [facility], [facility], Level 2 [place] [phone] documented as of this encounter Procedures Procedure Name Priority Date/Time Associated Diagnosis Comments ORDERS - SCANNED 01/27/2021 7:20 EDT documented in this encounter Results * ORDERS - SCANNED (01/27/2021 7:20 EDT) 01/27/2021 7:20 EDT Scan 2 [facility] ADMISSION ORDERABLE S documented in this encounter Visit Diagnoses Diagnosis Malignant 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, estrogen receptor negative ([facility])- Primary documented in this encounter Care Teams Recreation Therapy Teacher Relationship Specialty Start Date End Date Batsheva Lira FNP [address] [place] [phone] PCP - General 02/19/20 07/21/22 documented as of this encounter
--- OUTSIDE RECORDS SUMMARY | 2023-12-10 17:42 | XMS_ITS | Encounter Summary ---
Author Organization [facility] Address [address] [place] [address] Care Team Providers Care Stamper Blocker Name Role Phone Batsheva Lira JOHN Primary Care Provider [phone] Reason for Referral * Consult (Routine) - New Request Specialty Diagnoses / Procedures Referred By Jen gonzáles Referred To Contact Hematology and Oncology Diagnoses Malignant 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, estrogen receptor negative (H[place]-CMS) [place] [address] [place] [phone] Referral ID Status Reason Start Date Expiration Date Visits Requested Visits Authorized [id number] New Request Specialty Services Required 01/07/2021 1 1 Question Answer Location [facility] Tumor Board Breast Working Stage II Additional Providers Yes List additional providers sowden Clinical Question? Yes Specify clinical question response to therapy and next steps Radiology Review No Need to Review Pathology Review Review Recent Pathology Please indicate which slides are to be reviewed and add the pathology question path from 12/24 surgery Trial Options No Date to be Presented 01/22/2021 Reason for Visit * Reason Comments Follow-up Encounter Details Date Type Department Care Team (Late st Contact Info) Description 01/06/2021 11:30 EDT Office Visit [facility] Hematology & Oncology - [facility] [address] [place], [place] [address] [place] [address] [place] [address] Malignant neoplasm of upper-inner quadrant of left [...] 5:32 EDT documented as of this encounter Last Filed Vital Signs Vital Sign Reading Time Taken Comments Blood Pressure 132/81 01/06/2021 1121 EDT Pulse 91 01/06/2021 1121 EDT Temperature 36.1 ??C (96.9 ??F) 01/06/2021 1121 EDT Respiratory Rate 16 01/06/2021 1121 EDT Oxygen Saturation 99% 01/06/2021 1121 EDT Inhaled Oxygen Concentration - - Weight 82.1 kg (181 lb 1.6 oz) 01/06/2021 1121 E DT Height 167.1 cm (5' 5.79) 01/06/2021 1121 EDT Body Mass Index 29.42 01/06/2021 1121 EDT documented in this encounter Functional Status [...] Progress Notes * Queenie Conde MD - 01/06/2021 1130 EDT REASON FOR OFFICE VISIT Austin is a 45 y.o. being seen after surgery for her breast cancer. 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 Given her triple negative histology??she began??starting taxol/carboplatinum as part of the SIKOV Regimen??on July 22, 2020.?? Bilateral mastectomies performed on December 24 revealed2.5 cm of a poorly differentiated ductal carcinoma. All margins were negative. 0/3 nodes were positive. Contralateral breast was benign. SUBJECTIVE: Austin??is healing well. She does still have drains in. She has some discomfort and a fair bit of itching but no real pain she has no signs or symptoms of infection. Her system review is otherwise without new??constitutional, cardiovascular, pulmonary, GI, ,IT SYSTEMS ANALYST, musculoskeletal, psychiatric, neuro logic, endocrine, or heme symptoms. ?? 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 ??Her paternal relatives are of [place] descent. Objective: BP 132/81 Pulse 91 Temp 36.1 ??C (96.9 ??F) Resp 16 Ht 167.1 cm (65.79) Wt 82.1 kg (181 lb 1.6 oz) SpO2 99% BMI 29.42 kg/m?? General: Comfortable, cooperative and in no [...] appreciated EXTREMITIES: No clubbing, cyansis or edema; No calf tenderness BREAST EXAM: Chest wall reveals bilateral mastectomies. Drains are in laterally without infection. DIAGNOSTIC DATA Lab Results Component Value Date WBC 5.56 12/17/2020 HGB 12.3 12/17/2020 PLT 280 12/17/2020 CREATININE 0.46 (L) 12/17/2020 CALCCA 9.1 12/17/2020 CALCIUM 9.7 12/17/2020 ALT 100 (H) 12/17/2020 AST 90 (H) 12/17/2020 ASSESSMENT: Austin is??a 44-year old female with triple negative breast cancer (clinical T2N0)??currently getting neoadjuvant chemotherapy. ??She completed 4 cycles of Taxol and carboplatinum followed by 4 cyclesof Adriamycin and Cytoxan. Bilateral mastectomies revealed a residual 2.5 cm of poorly differentiated ductal carcinoma with no clear evidence of response. Austin is healing well from her surgery although she is a bit uncomfortable. We did discuss the implications of her residual disease and lack of clinical response. I discussed that we would present her case at tumor board and review her pathology and consider next steps. Conventional therapy would be capecitabine per the CREATE X trial however it may be reasonable given new data to consider immunotherapy. We will order PDL 1 testing on her tumor tissue. Austin has some elevation of her liver enzymes but this does seem to be fluctuating throughout her treatment. We will continue to monitor after treatment. ?? We should follow-up on her omeprazole use, liver enzymes and smoking status. She may be eligible for the project reach clinical trial through [employer] for cancer survivors who smoke. ?? PLAN: 1. We will present Austin case at tumor board 01/22 to consider next steps (Capecitibine or immunotherapy) 2. Austin will??return on 01/22 for discussion of next steps 3. We will follow up on Austin's liver enzymes and whether she continues to take omeprazole at her next visit. 4. Today I spent more than??45??minutes reviewing records, coordinating care, seeing and examining Austin??and documenting this visit Queenie Conde MD documented in this encounter Plan of Treatment Upcoming Encounters Date Type Department Care Team (Late st Contact Info) Description 01/31/2024 13:40 EDT Office Visit [facility] Surgical Oncology - [address] [address] Maeve Morales, DO 111 [facility], [address] [place] [phone] Scheduled Referrals Name Type Priority Associated Diagnoses Orde r Schedule AMB CONSULT/FOLLOW UP TUMOR BOARD Outpatient Referral Routine Malignant 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, estrogen receptor negative (HCC-CMS) Ordered: 01/07/2021 documented as of this encounter Visit Diagnoses Diagnosis Malignant 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, estrogen receptor negative (HCC-CMS)- Primary documented in this encounter Care Teams Stamper Blocker Relationship Specialty Start Date End Date Batsheva Lira FNP [address] [phone] PCP - General 02/19/20 07/21/22 documented as of this encounter
--- OUTSIDE RECORDS SUMMARY | 2023-12-10 17:42 | XMS_ITS | Encounter Summary ---
Author Organization [facility] Address [address] [place] [address] Care Team Providers Care Shingle Sawyer Name Role Phone Batsheva Lira JOHN Primary Care Provider [phone] Reason for Visit * Reason Onset Date Comments Pre-procedure 12/18/2020 Antibiotic order s Encounter Details Date Type Department Care Team (Late st Contact Info) Description 12/18/2020 Prep for Procedure [facility] Surgical Oncology - [address] [id number] Maeve Morales, DO 111 [facility], [facility] [address] [place] [phone] Social History Tobacco Use Types Packs/Day Years [...] 01/31/2024 13:40 EDT Office Visit [facility] Surgical Oncology - [address] [address] Maeve Morales, DO 111 [facility], [address] [place] [phone] documented as of this encounter Visit Diagnoses Not on filedocumented in this encounter Care Teams Shingle Sawyer Relationship Specialty Start Date End Date Batsheva Lira FNP [facility] [address] [phone] PCP - General 02/19/20 07/21/22 documented as of this encounter
--- OUTSIDE RECORDS SUMMARY | 2023-12-10 17:42 | XMS_ITS | Encounter Summary ---
Author Organization [facility] Address [address] [place] [address] Care Team Providers Care Pipefitter Helper Name Role Phone Batsheva Lira JOHN Primary Care Provider [phone] Reason for Visit * Reason Onset Date Comments Social Work 01/22/2021 financial Encounter Details Date Type Department Care Team (Late st Contact Info) Description 01/22/2021 Telephone [facility] Hematology & Oncology - [facility] [address] [place], [place] [address] Veronique Dye Social Work (financial) Social History [...] * Telephone Encounter - Veronique Dye - 01/22/2021 2158 EDT PN connected with pt by phone today to get a better idea of her financial concerns. Reports that she called [employer] and was told that her benefits have ended and she could re-apply in June. Pt questioned the accuracy of this information filed a claim on 01/20. She will check her account tomorrow to see if she received any benefits. Pt will update me when she checks her account. She also received a letter from [employer] stating that she would need to show proof of a job search. Feels she cannot look for a job at this time as she recuperating from bilateral mastectomies and it's likely she will need additional systemic treatments. Per pt, Dr. Conde is reviewing her case at Breast Tumor Board today and will see pt in Clinic on 01/27 to discuss treatment recommendations. She has residual disease even after chemotherapy and Dr. Conde is considering either Capecitibine or immunotherapy. Based on treatment recommendations and pt's stage of disease we might want to advise pt to apply for SSDI. PN will hold off on having this discussion with pt until we have more info from Dr. Conde. In the meantime, pt has applied for reach up and 3 squares and her applications are pending. She's exhausted all cancer grants at this time. I will check with SHAGGY Aguilar to see if writing a letter to unemployment (if she still has benefits) would eliminate the job search requirement. Plan- PN will re-connect with pt next week after her meeting with Dr. Conde. documented in this encounter Plan of Treatment Upcoming Encounters Date Type Department Care Team (Late st Contact Info) Description 01/31/2024 13:40 EDT Office Visit [facility] Surgical Oncology - [address] [phone] Maeve Morales, DO 111 [facility], [address] [place] [phone] documented as of this encounter Visit Diagnoses Not on filedocumented in this encounter Care Teams Pipefitter Helper Relationship Specialty Start Date End Date Batsheva Lira FNP [address] [phone] PCP - General 02/19/20 07/21/22 documented as of this encounter
--- OUTSIDE RECORDS SUMMARY | 2023-12-10 17:42 | XMS_ITS | Encounter Summary ---
Author Organization [facility] Address [address] [place] [address] Care Team Providers Care Orthotic Fitter Name Role Phone Batsheva Lira JOHN Primary Care Provider [phone] Reason for Referral * Specialty Diagnoses / Procedures Referred By [facility] t Referred To Contact [address] [address] Phone: [phone] Referral ID Status Reason Start Date Expiration Date Visits Re quested Visits Authorized Comments Please see Dr. Carcamo in 7-10 days or as scheduled. Call [phone] for questions or concerns. You have an appointment with Oksana QUINTANILLA on January 01. * Specialty Diagnoses / Procedures Referred By [facility] Referred To Contact [address] [address] Phone: [phone] Referral ID Status Reason Start Date Expiration [...] estrogen receptor negative, unspecified site of breast (HCC-[facility]) Procedures WA MASTECTOMY, SIMPLE, COMPLETE WA BX/REMV,LYMPH NODE,DEEP AXILL WA INTRAOPERATIVE SENTINEL LYMPH NODE ID W DYE INJECTION WA INJ RADIOACTIVE TRACER FOR ID OF SENTINEL NODE WA RMVL ZAHRAA CTR VAD W/SUBQ PORT/SALES ORDER PROCESSOR CTR/PRPH INSJ WA TISSUE LEGAL CONSULTANT PLACEMENT BREAST RECONSTRUCTION WA IMPLNT BIO IMPLNT FOR SOFT TISSUE REINFORCEMENT WA ALLODERM Maeve Morales, DO 111 [facility] [address] [place] [address] Referral ID Status Reason Start Date Expiration Date Visits Re quested Visits Authorized [id number] 10/27/2020 05/15/2021 1 1 Encounter Details Date Type Department Care Team (Late st Contact Info) Description 12/24/2020 5:36 EDT - 12/25/2020 14:04 EDT Hospital Encounter [facility] General Surgery Unit [address] [place] [address] Maeve Morales, DO [address] [address] Juanito Carcamo MD [address] [place] [id number] Discharge Disposition: Home or Self Care [...] Sign Reading Time Taken Comments Blood Pressure 137/67 12/25/2020 0929 EDT Pulse 76 12/25/2020 0526 EDT Temperature 36.8 ??C (98.3 ??F) 12/25/2020 0929 EDT Respiratory Rate 16 12/25/2020 0929 EDT Oxygen Saturation 100% 12/25/2020 0929 EDT Inhaled Oxygen Concentration - - Weight 84.2 kg (185 lb 10 oz) 12/24/2020 0648 ED T Height 165.1 cm (5' 5) 12/24/2020 1715 EDT Body Mass Index 30.89 12/24/2020 0648 EDT documented in this encounter Functional Status [...] 12/24/2020 documented as of this encounter Discharge Summaries * Yanely Ambrosio MD - 12/25/2020 0728 EDT Surgery Discharge Summary Primary Care Provider: JOHN Orosco Attending Physician: Juanito Carcamo MD* Admit Date: 12/24/2020 Discharge Date: 12/25/2020 Disposition: Home or self care Problems and Procedures Admitting Diagnosis: left breast cancer Principal/Final Diagnosis: Left breast cancer Additional Problems Managed in the Hospital Active Hospital Problems Diagnosis Date Noted ??? *Breast cancer in female ([facility]) 12/24/2020 Resolved Hospital Problems No resolved problems to display. Principal Procedure: 1. Bilateral skin sparing mastectomies and left sentinel lymph node biopsy, port removal (Dr. Morales) 2. bilateral tissue environment artist reconstruction with allograft of breasts after mastectomy (Dr. Carcamo) Date: 12/24/2020 Secondary Procedures: none Hospital Course Austin Squires is a 45 year old female with a history of left-sided triple negative breast cancer whounderwent bilateral skin sparing mastectomies and left sentinel lymph node biopsy and port removal by Dr. Morales, and bilateral tissue environment artist reconstruction with allograft of breasts after mastectomy by Dr. Carcamo. She tolerated the procedures well and there were no complications. The patient wastransferred to the PACU where she recovered without issue. She then was brought to the floors for further recovery, as planned. On the morning of POD1, she was able to tolerate a regular diet, ambulate independently, and her pain was well-controlled. She was discharged home with 30 tablets of dilaudid, per Dr. Carcamo. She is scheduled to follow-up with the plastic surgery clinic on January [address] Morales on January 06. Allergies and Immunizations Allergies Allergen Reactions ??? Ondansetron Other (See Comments) Dose to be limited to under 16mg daily while on Lexapro as EKG showed QTC as 0.4 ??? Oxycodone Other (See Comments) Made her hyper Immunization History Administered Date(s) Administered ??? Covid-19 mRNA Vaccine (D-Share COVID-19) PF 0.3 ml IM (12 yrs+) 08/08/2020, 08/29/2020 Transition of Care Plans Condition at Discharge Good Assessment at Discharge Vital signs: Patient Vitals for the past 12 hrs: BP Pulse Resp Temp SpO2 O2 Device 12/25/20 0526 121/72 76 16 36.1 ??C (97 ??F) 99 % None 12/25/20 0126 140/71 74 16 36.4 ??C (97.6 ??F) 98 % None 12/24/20 2100 137/70 75 14 36.9 ??C (98.5 ??F) 97 % None General: well appearing, NAD CV: RRR no MRG Resp: CTAB Breasts: incisions c/d/i with paper tape covering, no ecchymosis, minimal edema, covering abdominalpads are clean Drains: serosanguinous output Results Pending at Discharge Test results still pending from this admission Procedure Component Value Units Date/Time SURGICAL PATHOLOGY [[id number]] Collected: 12/24/20 0920 Lab Status: In process Specimen: Tissue from Breast, right; Tissue from Breast, right; Tissue from Lymph Node, [place]; Tissue from Lymph Node, [place]; Tissue from Breast, left Updated: 12/24/20 1413 Relevant Studies at Discharge n/a Last Lab Results at Discharge n/a Discharge Follow Up Upcoming Appointments Jan 01, 2021 10:00 Post Op Visit with Oksana Wilkins PA-C [facility] Plastic, Reconstructive & Cosmetic Surgery - [place] (--) [address] [address] Jan 06, 2021 10:20 Post Op Visit with Maeve Morales DO [facility] Surgical Oncology - [facility] ([facility] [place]) [address] [facility] [id number] Jan 06, 2021 11:30 Follow Up Visit with Queenie Conde MD [facility] Hematology & Oncology - [facility] ([facility] [place]) [address] [facility] [id number] Jan 14, 2021 9:00 Steps to Wellness with Katia Hughes, PT [facility] Rehabilitation Therapy [facility] (--) [address] [facility] [id number] Jan 26, 2021 9:15 COMPLEX DECONGESTIVE EVAL with Dary Gómez, PT [facility] (--) [address] [address] Yanely Ambrosio MD, PGY-1 Plastic Surgery Pager # [phone] documented in this encounter Medications at Time [...] 08/13/2020 03/26/2021 omeprazole (PRILOSEC) 40 mg capsule Take 1 Cap by mouth at bedtime. 30 Cap 2 10/08/2020 12/30/2020 triamcinolone acetonide (KENALOG) 0.1 % pasteIndications:Jennifer richards 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, estrogen receptor negative (HCC-CMS) Apply to affected area up to three times daily as needed for pain. 1 Tube 11/07/2020 03/26/2021 documented as of this encounter Ordered Prescriptions Prescription Sig Dispensed Refills Start Date End Da te cephalexin (KEFLEX) 500 mg capsule Take 1 capsule by mouth 4 times daily for 21 days. 84 capsule 12/25/2020 01/15/2021 HYDROmorphone (DILAUDID) 2 mg tablet Take 1-2 Tablets by mouth every 4 hours as needed for Pain. Daily Max: 24 mg 30 Tablet 12/25/2020 03/26/2021 acetaminophen (TYLENOL) 500 mg tablet Take 2 Tablets by mouth every 6 hours. 12/25/2020 03/26/2021 documented in this encounter Discharge Disposition Disposition Code Departure Means Destination Home or Self Intermediate documented in this encounter Progress Notes * Gertrudis Ortega - 12/25/2020 1216 EDT Initial Case Management/Social Work Assessment and Discharge Plan/Readmission Risk Assessment REASON FOR ADMISSION: Breast cancer in female (HCC-CMS) now POD 1 bilat mastectomy and environment artist placement Patient understands reason for admission: Yes PATIENT INFO VERIFIED: PCP, Contact Info, Address Type of housing (single family, condo, apartment, [facility], single room occupancy, [facility] funded hotel room, group penitentiary) - single family home Who does the patient live with? 9 yo daughter Does the patient have access to their own bedroom/bathroom/kitchen - or is it shared with others? shared LIVING ARRANGEMENTS AND ACCESSIBILITY ISSUES: Living Arrangements: Children, Private residence Levels: 1 Stairs to enter: 0 Bathroom located on bedroom level?: Yes What in home social supports are available to the patient? Family member(s) Is 24/7 care available? Yes (for a few days) ADVANCED DIRECTIVES, POA &/or COLST IN PLACE: Healthcare Directive: No, patient does not have advance directive for healthcare treatment DIRECTIVES FOR FINANCES: TRANSPORTATION: Transportation: Family Patient expects to be discharged to: Home CULTURAL, SIKH and/or LANGUAGE factors affecting health care/discharge planning: Spiritual/Cultural Requests: None Language/Literacy Needs Do you need us to provide any communication aids or devices?: No Insurance Information: Medical Insurance: Yes Type of insurance: Medicaid, Other (See Comments) ([place] secondary) Medicaid Type: Community Nutrition: DISCHARGE RISK ASSESSMENT: Incontinent Total # selected above: Score of 1 - 2: This patient is at LOW RISK for re-hospitalization Tentative plan to address the risk of re-hospitalization for those at HIGH MODERATE RISK: RAPT TOOL: Age: (Age 45) Gender: Female Ambulation distance: 2 or more blocks (600ft) Gait device: None Community Services: Home health, MOW, SASH-none Will you live with someone who will care for you?: Yes RAPT Tool Score: 9 Patient expects to be discharged to: Home SBIRT: SASQ (Single Alcohol Screening Question) How many times in the past year have you had 4 or more drinks in a single day?: Never How many times in the past year have you used an illegal drug or used a prescription medication fornon-medical reasons?: Never Intervention in place/initiated?: No, not indicated FUNCTIONAL STATUS: Activities patient requires assistance: None Assistive Device: None COMMUNITY RESOURCES/SUPPORTS: Primary Care Provider: JOHN Orosco PCP Verified: Specialists: Type of Home Health Services: None DME Provider: Pharmacy: [facility]/pharmacy #[id number] - [place], [place] - [address] [place] [address] [facility] ([facility]) - [place], [place] - [address] [facility] [address] [facility] [address] Home Health: Other: POST HOSPITAL TRANSITION PLAN: Pt's father and aunt are available to stay with pt at her home through Tuesday. She is feeling weak today and afraid of pain when transferring out of bed. States she also has two young adult children who live nearby and can assist as well though may not be as reliable.Understands she will discharge home with 4 drains. Anticipate self care of drains after education by direct care RN. GERTRUDIS ORTEGA RN 12/25/2020 12:16 ADDENDUM Pt discharged home to self care. Li Ortega RN CCM [id number] * Mihir Arriaga - 12/25/2020 0742 EDT Surgical Oncology Progress Note DOS: 12/25/2020 LOS: 0 days (12/24/2020) CC: Breast cancer in female ([facility]) Procedure: 1. Bilateral skin sparing mastectomies and left sentinel lymph node biopsy, port removal ([place]) 2. bilateral tissue environment artist reconstruction with allograft of breasts after mastectomy (Carlos Alberto) 24-Hour Events: -to OR for above -admitted to for observation Subjective: Austin is feeling well this AM. Reports feeling comfortable when not moving, but in significant painwhen ambulating to the bathroom, and requiring assistance. She felt a cold sweat last night but feels this is not unusual for her. Has tolerated PO without nausea or vomiting, and plans to eat more today. Has passed flatus, no BM. Denies fevers, chills, SOB. Objective: Vitals: BP 121/72 (BP Cuff Location: Right leg, BP Patient Position: Semi fowlers) Pulse 76 Temp 36.1 ??C (97 ??F) (Tympanic) Resp 16 Ht 165.1 cm (65) Wt 84.2 kg (185 lb 10 oz) LMP 06/26/2020 (Within Days) SpO2 99% BMI 30.89 kg/m?? Intake/Output Summary (Last 24 hours) at 12/25/2020 0755 Last data filed at 12/25/2020 0748 Gross per 24 hour Intake 2180 ml Output 825 ml Net 1355 ml Exam Gen: conversant, NAD Neuro: AAOx3, moves all extremities to command CV: RRR Resp: CTAB Abd: S, NT, ND Extr: WWP Incision(s)/Wound(s): dressing over chest incisions c/d/i, 4x Attila drains, 2 in L and 2 in R axilla/breast all with scant serosang output Meds: MAR Reviewed Assessment: Austin Squires is a 45 y female with history of triple negative left breast cancer s/p chemotherapywho is POD#1 s/p bilateral skin sparing mastectomies, port removal, and tissue environment artist placement, recovering well on the floor with adequate pain control. Plan: - appreciate care from plastics primary team - ok for discharge from surg onc perspective Jocelyn oSusakin 12/25/2020 7:43 [phone] ADDENDUM I have seen and examined this patient with the medical student. I have overseen the medical decision making process and agree with the above. MIHIR ARRIAGA MD 12/25/2020 12:20 [phone] * Pavel Sterling MD - 12/24/20201999 EDT Surgery Post-operative Check Note Admit Date: 12/24/2020 Date of Service: 12/24/2020 POD:0 Chief Complaint: Chest tightness Procedure: 1. Bilateral skin sparing mastectomies and left sentinel lymph node biopsy, port removal (Dr. Morales) 2. bilateral tissue environment artist reconstruction with allograft of breasts after mastectomy (Dr. Carcamo) SUBJECTIVE: Austin Squires is doing well postoperatively. Her only complaint is some chest tightness when she attempts to transfer an object from one hand to the other across her chest. Her pain is well controlled. She denies any shortness of breath, nausea, vomiting. OBJECTIVE: Blood pressure 103/72, pulse 86, temperature 37.2 ??C (98.9 ??F), temperature source Oral, resp. rate 12, height 165.1 cm (65), weight 84.2 kg (185 lb 10 oz), last menstrual period 06/26/2020, SpO2 99 %. Physical Examination: General: Resting in bed. NAD Neuro: Awake and alert. Answers questions appropriately. Pulmonary: Lungs clear to auscultation bilaterally Cardiovascular: Normal rate, regular rhythm. Chest: Tape and ABD dressing in place over bilateral breasts is clean dry and intact. 2 drains on each side of the chest wall present with sanguinous discharge. No echhymosis or swelling over either breast Abdomen: Soft, nondistended, nontender to palpation. Extremities: WWP ASSESSMENT/PLAN: Austin Squires is a 45 year old female with malignant neoplasm of the L breast who is now POD#0 from the above procedures. She is recovering appropriately on the floor. Her pain is well controlled. She has no other complaints. - Pain management with Tylenol, PRN Dilaudid PO, PRN Dilaudid IV. - No NSAIDs. - No ice or heat to the incisions. - IV cefazolin q8hr - Regular diet - Zofran for nausea - Ambulation and SCDs for DVT ppx - AAT Pavel Sterling MD Surgery PGY-1 #[id number] 12/24/20 20:13 documented in this encounter H&P Notes * Lida Enriquez MD - 12/24/2020 0715 EDT The preoperative history and physical which was performed within 30 days of this procedure has been reviewed and the clinically appropriate elements of the physical examination have been repeated. There are no changes to the documented history and physical or if so such changes are documented below Lida Enriquez MD 12/24/2020 7:15 Source Note - Maeve Morales DO - 11/25/2020 10:20 EDT Subjective: Patient ID: Austin Squires is an 45 y.o. female. Chief Complaint Patient presents with ??? Follow-up HPI Austin Squires is seen in the office today in follow-up for her left breast cancer. As you recall this is a patient who had a provider palpated mass in June 2020. She underwent diagnostic imaging which showed a mass in the upper inner quadrant of the left breast. Biopsy returned back nuclear grade 3 invasive ductal adenocarcinoma that was triple negative. She initiated neoadjuvant chemotherapy with TC followed by AC. She will be completing her final AC on . Her genetic testing was negative. She is planning to move forward with bilateral mastectomies and a left sentinel lymph node biopsy. She can no longer feel the mass in her left breast. She is feeling very worn out and exhaustedfrom her chemotherapy and was admitted for neutropenic fever this weekend. Patient Active Problem List Diagnosis ??? 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, estrogen receptor negative ([facility]) Past Medical History: Diagnosis Date ??? Exercise involving housework ??? Exercise involving [...] Types: Cigarettes Quit date: 09/17/2020 Years since quittin.1 ??? Smokeless tobacco: Never Used ??? Tobacco comment: pt also vapes Vaping Use ??? Vaping Use: Former ??? Substances: Nicotine (3mg or none) ??? Devices: Disposable Substance Use Topics ??? Alcohol use: Yes Comment: rarely ??? Drug use: Never Current Outpatient Medications on File Prior to Visit Medication Sig Dispense Refill ??? amLODIPine (NORVASC) 2.5 mg tablet Take 2.5 mg by mouth daily. ??? escitalopram oxalate (LEXAPRO) 10 mg tablet Take 20 mg by mouth daily. ??? INTRAUTERINE DEVICE, IUD, INTRAUTERINE by intrauterine route. ??? lidocaine-prilocaine (EMLA) cream Apply to port site and cover, 1 hr before planned port dyzzyn91 g 1 ??? OLANZapine (ZYPREXA) 5 mg tablet Take 1 Tablet by mouth daily. Take 1 tab on day 1 and 2 and 3 of chemotherapy 10 Tablet 1 ??? omeprazole (PRILOSEC) 40 mg capsule Take 1 Cap by mouth at bedtime. 30 Cap 2 ??? ondansetron (ZOFRAN-ODT) 8 mg disintegrating tablet Take 1 Tab by mouth every 8 hours as neededfor Nausea. 60 Tab 2 ??? oxybutynin (DITROPAN) 5 mg tablet Take 5 mg by mouth daily. (Patient not taking: Reported on 11/25/2020) ??? prochlorperazine (COMPAZINE) 10 mg tablet Take 1 Tab by mouth every 6 hours as needed for Nausea. 30 Tab 5 ??? traMADol (ULTRAM) 50 mg tablet Take 1 Tab by mouth every 6 hours as needed for Pain. Daily Max:200 mg 20 Tab 0 ??? triamcinolone acetonide (KENALOG) 0.1 % paste Apply to affected area up to three times daily asneeded for pain. 1 Tube 0 ??? varenicline tartrate (CHANTIX ORAL) Take by mouth daily. No current facility-administered medications on file prior to visit. Allergies Allergen Reactions ??? Oxycodone Other (See Comments) Made her [...] and headaches. - See HPI Objective: BP 120/79 Pulse (!) 108 Temp 35.8 ??C (96.5 ??F) (Tympanic) Resp 12 Physical Exam Constitutional: [...] time. Cranial Nerves: No cranial nerve deficit. Breast: Breasts and axilla are examined in the seated and the supine position. There are no obviousmasses palpated in either breast. Ultrasound of the left upper inner quadrant continues to show a mass with an adjacent clip. Today the largest dimension is just over a centimeter so it is halved in size. There is no nipple inversion or discharge. There are no axillary masses. Assessment: Austin is seen in the office today in preoperative evaluation for her left triple negative breast cancer. Her father is with her today. We discussed her surgery in detail. Risks and benefits were discussed. Risks include but are not limited to bleeding, infection, injury to surrounding nerves and blood vessels, skin flap necrosis, lymphedema and need for additional surgery. After this discussion she wishes to proceed. I discussed with her that I will reach out to Dr. Queenie Conde to confirm that it is okay to take out the port as it appears she may have some residual disease in the left breast. She is scheduled for December and is eager to proceed. Plan: (C50.212, Z17.1) Malignant 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, estrogen receptor negative (HCC-CMS) (primary encounter diagnosis) Maeve Morales DO No orders of the defined types were placed in this encounter. documented in this encounter OR Notes * OR Surgeon - Juanito Carcamo MD FACS - 12/25/2020 1404 EDT Operative Note Date: 12/24/2020 Location: [facility] OR Name: Austin Squires, : 1975, PREOPERATIVE DIAGNOSIS: (1) left breast Cancer POSTOPERATIVE DIAGNOSIS: (1) left breast Cancer PROCEDURE : 1. Immediate Bilateral Prepectoral Tissue Reed Man Reconstruction with Allograft following mastectomy 2. Intraoperative Infrared Angiography x 2 SURGEON: Juanito Carcamo MD FACS - Primary Juan Nelson MD - Resident - Assisting ANESTHESIA: General endotracheal INDICATIONS: Please see office dictation. Briefly, Austin Squires is a 45 y.o. female who is here for Bilateral Skin Sparing Mastectomy by Dr. Maeve Morales. Risks and benefits of reconstruction were thoroughly discussed with the patient preoperatively. She has elected to undergo tissue environment artist with allograft reconstruction planned for the prepectoral position following the mastectomy. Signed informed Citizen [place] [employer] of [employer] and signed informed [...] draped in the standard sterile manner. The mastectomies were then performed. Please see Dr. Morales's operative note for details. As the mastectomies were being completed the appropriate tissue expanders to match the base diameter (15 cm) was filled to volume with filtered air and then wrapped with a 16 x 20 cm sheet or perforated AlloDerm and a medium Contour AlloDerm (perforated with 4 mm punch). This was contoured to the environment artist and secured with buried interrupted running3-0 PDS. Once this was complete, the construct was placed in antibiotic solution. After the mastectomy was completed, the skin was reprepped, overdrapes placed and light handles changed. Four mL of indocyanine green was administered by anesthesia services at my direction. The mastectomy flaps were seen to be well vascularized. The pockets were thoroughly irrigated with antibiotic solution and thesurgical site was carefully inspected for hemostasis. Attention was then turned to the right side. Here a 2-0 PDS suture was placed medially and the medial tab was secured, the orienting line drawn vertically on the environment artist was used to achieve very precise orientation of the environment artist. The central tab was then secured against the neoinframammary fold with a 2-0 PDS suture. Once this was seen to be in good position, the remaining 2nd and 4th tabs were then secured. Two 15-Turkish Attila drains were placed exiting laterally. These were sewn in with 3-0 nylon. Attention was then turned to the leftside. Here also a 2-0 PDS suture was placed medially and the medial tab was secured, the orienting line drawn vertically on the environment artist was used to achieve very precise orientation of the environment artist. The central tab was then secured against the neoinframammary fold with a 2-0 PDS suture. Once this was seen to be in good position, the remaining 2nd and 4th tabs were then secured. Two 15-Turkish Attila drains were placed exiting laterally. These were sewn in with 3-0 nylon. The patient was placed inthe seated position and symmetry was checked. The 750 cc [place] Artoura expanders were then accessed, de-aired and filled using a closed loop system to 250 ml of normal saline IV solution. The skin was temporarily stapled together and then closed with buried interrupted 3-0 Monocryl and a running 4-0 Monocryl. At my direction 4 mL of indocyanine green was administered by anesthesia services. The mastectomy flaps were seen to be reasonably well vascularized. Drains were infused with 0.5% marcaine with epinephrine which was allowed to indwell for 20 min. The skin was dressed with benzoin and 1-inch sterile paper tape, ABD and Medipore tape bra was placed. The patient was awakened, extubated and transferred to the recovery room in stable condition. At all times during the case when ever the expanders were touched gloves were changed, the instruments were dipped in antibiotic solution and the skin was re-prepped with Betadine. At the end of the case, all appropriate needle, instrument andsponge counts were correct. Postop brief noted no deficiencies. Third stage of the WHO checklist was appropriately completed. * OR Surgeon - Maeve Morales DO - 12/24/2020 0000 EDT OPERATIVE REPORT SERVICE DATE: 12/24/2020 PREOPERATIVE DIAGNOSIS: Left breast cancer, status post neoadjuvant chemotherapy. POSTOPERATIVE DIAGNOSIS: Left breast cancer, status post neoadjuvant chemotherapy. PROCEDURE: 1. Right risk-reducing skin-sparing mastectomy. 2. Left skin-sparing mastectomy. 3. Right chest wall MediPort removal. 4. Left sentinel lymph node biopsy. SURGEON: Maeve Morales DO DIRECTOR ERP: Lida Enriquez MD ANESTHESIA: General endotracheal and local. ESTIMATED BLOOD LOSS: Minimal. COMPLICATIONS: None. SPECIMENS: 1. Right breast. 2. Left breast. 3. Left sentinel lymph nodes. INDICATIONS: This is a patient that recently completed neoadjuvant chemotherapy for triple negativeleft-sided breast cancer. We discussed several options and she is wishing to move forward with bilateral mastectomies and a sentinel lymph node biopsy. After discussion with her medical oncologist, we moved forward with removal of her MediPort as they do not feel that they will require this any further. Risks and benefits of operative intervention were discussed with her in detail. Risks include but are not limited to bleeding, infection, injury to surrounding nerves and blood vessels, lymphedema, margin positivity, skin flap necrosis, air embolus and need for additional surgery. Following this discussion, she asked me to proceed. NARRATIVE: The patient was first seen in preop where I injected her breast with technetium sulfur colloid for the purposes of sentinel lymph node identification. Once in the operating room, anesthetic and antibiotic were administered. She was prepped and draped in normal sterile fashion after a Howard catheter was inserted. On the right side, an elliptical incision was made to incorporate the nipple-areolar complex after local anesthetic was infused. This was carried down and skin flaps were mobilized in all directions. Care was taken to remove as much breast tissue as possible while maintaining skin flap viability. Once this was taken down to the chest wall, the MediPort is identified in the far superior medial aspect of the flap. The patient was placed in Trendelenburg position. The MediPort is pulled and pressure is held at her right internal jugular for 5 minutes. When pressure was released, there was no return of back bleeding. The patient was again placed supine. The breast was re moved in a superior to inferior, then medial to lateral fashion. It was marked and sent to pathology. Attention was focused to the left side where the same procedure was performed for her breast. Once the breast was mobilized lateral and prior to the breast being removed, the clavipectoral fascia wasentered. An onco probe was utilized to identify an area of high radioactive isotope uptake in the deep axilla. Deep within the axilla, there was lymph node identified using the onco probe with high uptake. This was removed and sent as a sentinel. There was a second area with high uptake as well also removed. The areas were copiously irrigated. The breast was removed. The area was packed with wet laps and the patient is handed over to Dr Carcamo, who will be performing tissue environment artist based reconstruction. The patient tolerated our portion of the surgery well. Unless otherwise noted, there were no complications, no blood loss, no cultures obtained, no specimens removed, and no drains retained. Maeve Morales DO / Confirmation: [id number] Dictation ID: [id number] cc: documented in this encounter Miscellaneous Notes * Plan of Care - Valerie Morgan - 12/25/2020 1308 EDT Nursing Discharge Note D: Patient noted with discharge orders to: home. A: Prescriptions sent to [facility] pharmacy. Reviewed discharge instructions and prescriptions with pt and her father. PIV removed prior to discharge. Belongings collected and sent home with patient. Draineducation provided to pt and family. R: Pt verbalized understanding of discharge instructions and denied further questions. Demonstratedunderstanding of education provided. Left the unit pushed in wheelchair by family with belongings. VALERIE MORGAN RN 12/25/2020 13:08 * Plan of Care - Lubna Mcnally RN - 12/25/2020 0623 EDT Data: A&Ox3, Vital signs stable. 2 JUAN drain at L and 2 JUAN at R with serosang output. Wound dressing C/D/I. Pain 5/10 at surgical site. Voiding.Vital signs stable. Action: Medication administered per JUL. Assisted x1 to bathroom. Response: Relief from PRN meds. Safety maintained. Resting comfortably at this time. Will continue with plan of care. LUBNA MCNALLY RN 12/25/2020 6:23 * Brief Op Note - Juan Nelson MD - 12/24/2020 1416 EDT Date: 12/24/2020 Location: [facility] OR Name: Austin Squires, : 1975, Diagnosis Pre-op Diagnosis * Malignant neoplasm of left breast in female, estrogen receptor negative, unspecified site of breast (HCC-CMS) [C50.912, Z17.1] Post-op Diagnosis * Malignant neoplasm of left breast in female, estrogen receptor negative, unspecified site of breast (HCC-CMS) [C50.912, Z17.1] Procedures bilateral tissue environment artist reconstruction with allograft of breasts after mastectomy Surgeons Panel 2: * Juanito Carcamo MD FACS - Primary * Juan Nelson MD - Resident - Assisting * Yanely Ambrosio MD Procedure Summary Anesthesia: General ASA: II Estimated Blood Loss: 20 mL (for plastics portion) UOP: 250 mL (for total case, including surg onc portion) Total IV Fluids: 1800 mL (for total case, including surg onc portion) LDAs: 4x 15Fr Attila drains, 2 in L and 2 in R axilla/breast Staff: Diamond Powder Mixer: Joann Diaz RN; Laurie Escalera RN Relief Diamond Powder Mixer: Vivian [place] RN; Regina Doss RN Relief Scrub: August Scrub Person: Shira Bernardo Patient Railroad Detective: Shefali Ulloa Indications: Austin Squires is an 45 y.o. female who is having surgery for left sided breast cancer Findings: procedure as planned, 750cc tissue expanders filled with 250cc normal saline each. See attending dictation for complete operative details. Complications: None; patient tolerated the procedure well. Disposition: PACU - hemodynamically stable. Condition: stable Specimens Collected: none during plastics portion of case Plan: POC @ 1900, DTV @ 2100 Pain control with atilio tylenol, prn PO and IV dilaudid Antiemetics prn, note that documented zofran allergy is erroneous/not true allergy No NSAIDs No heat or ice to incisions No bra or compression to breasts, sleep on back only Regular diet, AAT SCDs and ambulation for DVT ppx Monitor drain output Cefazolin 2g q8h while in house, Keflex 500 QID at discharge (2 week supply) Juan Nelson MD 12/24/2020 14:17 * Brief Op Note - Lida Enriquez MD - 12/24/2020 1140 EDT Brief Post-Op Note Date of Surgery: 12/24/2020 Surgeon: Maeve Morales MD Assistants: Lida Enriquez MD, Jocelyn Good MS4 Pre-Op Diagnosis: Left breast cancer Post-Op Diagnosis: Same Procedure(s): Bilateral skin sparing mastectomies and left sentinel lymph node biopsy, port removal Findings: As expected. All relevant anatomy was identified and preserved. Anesthesia Type: General Estimated Blood Loss: The estimated blood loss was 50ml Fluids: 1200ml fluid replacement during mastectomy portion Urine Output: 150ml urine during mastectomy portion Specimens/Cultures: right breast tissue , left breast tissue s/p chemotherapy, left sentinel lymph nodes x2 Drains/Packs: None, see second op report Wound Class: II - Clean-Contaminated (Entry into respiratory, alimentary, genital, or urinary tractin controlled conditions.) Complications: None Disposition and Condition: Austin Squires remains in the operating room under care of Dr. Carcamo for reconstruction. Plan: -orders per Plastic surgery -no ice to breasts Lida Enriquez MD 12/24/2020 11:41 General Surgery PGY-5 Pager [phone] * PAT Note - Ghazala Garcia RN - 12/19/[address] Queenie Conde's 07/22/20 note, Austin [...] [facility] Surgical Oncology - [address] [id number] Maeve Morales DO [address] [place] [address], [address] [place] [address] Scheduled Referrals Name Type Priority Associated Diagnoses Order Schedule PROVIDER FOLLOW-UP INSTRUCTIONS Outpatient Referral Routine Ordered: 12/25/2020 PROVIDER FOLLOW-UP INSTRUCTIONS Outpatient Referral Routine Ordered: 12/25/2020 documented as of this encounter Procedures Procedure Name Priority Date/Time Associated Diagnosis Comments IMPLANT RECORD - SCANNED 01/05/2021 7:49 EDT IMPLANT RECORD - SCANNED 12/29/2020 11:11 EDT ECG REPORT - SCANNED 12/29/2020 11:11 EDT ECG REPORT - SCANNED 12/26/2020 12:24 EDT EKG 12-LEAD Routine 12/24/2020 18:29 EDT SURGICAL PATHOLOGY Routine 12/24/2020 9: 20 EDT INSERTION, BIOLOGIC IMPLANT, FOR SOFT TISSUE REINFORCEMENT 12/24/2020 7:13 EDT Malignant neoplasm of left breast in female, estrogen receptor negative, unspecified site of breast (HCC-CMS) Special Needs Bluetooth OncoProbe; Nuclear medicine injection @ 7amIV placement: rightHands on time: 5 hours RECONSTRUCTION, BREAST, BILATERAL, WITH TISSUE LEGAL CONSULTANT INSERTION 12/24/2020 7:13 EDT Malignant neoplasm of left breast in female, estrogen receptor negative, unspecified site of breast (HCC-CMS) Special Needs Bluetooth OncoProbe; Nuclear medicine injection @ 7amIV placement: rightHands on time: 5 hours REMOVAL, TUNNELED CVA DEVICE, INSERTION, CENTRAL, PERIPHERAL PORT 12/24/2020 7:13 EDT Malignant neoplasm of left breast in female, estrogen receptor negative, unspecified site of breast (HCC-CMS) Special Needs Bluetooth OncoProbe; Nuclear medicine injection @ 7amIV placement: rightHands on time: 5 hours INJECTION, FOR SENTINEL LYMPH NODE IDENTIFICATION 12/24/2020 7:13 EDT Malignant neoplasm of left breast in female, estrogen receptor negative, unspecified site of breast (HCC-CMS) Special Needs Bluetooth OncoProbe; Nuclear medicine injection @ 7amIV placement: rightHands on time: 5 hours INTRAOPERATIVE MAPPING SENTINEL LYMPH NODES INCLUDING INJECTION 12/24/2020 7:13 EDT Malignant neoplasm of left breast in female, estrogen receptor negative, unspecified site of breast (HCC-CMS) Special Needs Bluetooth OncoProbe; Nuclear medicine injection @ 7amIV placement: rightHands on time: 5 hours BIOPSY OR EXCISION, DEEP LYMPH NODE, AXILLARY 12/24/2020 7:13 EDT Malignant neoplasm of left breast in female, estrogen receptor negative, unspecified site of breast (HCC-CMS) Special Needs Bluetooth OncoProbe; Nuclear medicine injection @ 7amIV placement: rightHands on time: 5 hours MASTECTOMY, BILATERAL, SIMPLE 12/24/2020 7:13 EDT Malignant neoplasm of left breast in female, estrogen receptor negative, unspecified site of breast (HCC-CMS) Special Needs Bluetooth OncoProbe; Nuclear medicine injection @ 7amIV placement: rightHands on time: 5 hours TEST, URINE STAT 12/24/2020 6:13 EDT ECG REPORT - SCANNED 12/19/2020 11:49 EDT documented in this encounter Results * IMPLANT RECORD - SCANNED (01/05/2021 7:49 EDT) 01/05/2021 7:49 EDT Scan 2 Sticker Hand PROCEDURE/MINOR KHURRAM GICAL ORDERABLES * IMPLANT RECORD - SCANNED (12/29/2020 11:11 EDT) 12/29/2020 11:1 1 EDT Scan 2 Sticker Hand PROCEDURE/MINOR KHURRAM GICAL ORDERABLES * ECG REPORT - SCANNED (12/29/2020 11:11 EDT) 12/29/2020 11:1 1 EDT Scan 2 Sticker Hand PROCEDURE/MINOR KHURRAM GICAL ORDERABLES * ECG REPORT - SCANNED (12/26/2020 12:24 EDT) 12/26/2020 12:2 4 EDT Scan 2 Sticker Hand PROCEDURE/MINOR KHURRAM GICAL ORDERABLES * EKG 12-LEAD (12/24/2020 18:29 EDT) 12/24/2020 18:2 9 EDT Narrative [facility] EKG - 12/26/2020 12:17 EDT ? [facility] ? Test Date: ?2020-12-24 Pat Name: ? AUSTIN SQUIRES ? Department: ?? Aisha Delgadillo ? Room: ? B688 Gender: ? Female ? Bar Supervisor: ?? [id number] : ?1975 ? Requested By: ELBA LEBLANC Order Number: [id number] ? Reading : ?? LORI GRAVES MD ? Measurements Intervals ?[place] ? Rate: ? 80 ? P: ?54 WA: ? 189 ?QRS: ?16 QRSD: ? 81 ? T: ?5 QT: ? 437 ? QTc: ?506 ? Interpretive Statements SINUS RHYTHM MODERATE T-WAVE ABNORMALITY, CONSIDER ISCHEMIA PROLONGED QTC I reviewed the tracing and have either agreed or edited the findings in this report. Electronically Signed On 12-26-2020 12:17:58 EDT by LORI GRAVES MD. Procedure Note Lori Graves MD - 12/26/[address] [facility] Test Date: 2020-12-24 Pat Name: AUSTIN SQUIRES Department: [facility] Room: B688 Gender: Female Bar Supervisor: [id number] : 1975 Requested By: ELBA LEBLANC Order Number: [id number] Reading MD: LORI GRAVES MD Measurements Intervals [place] Rate: 80 P: 54 WA: 189 QRS: 16 QRSD: 81 T: 5 QT: 437 QTc: 506 Interpretive Statements SINUS RHYTHM MODERATE T-WAVE ABNORMALITY, CONSIDER ISCHEMIA PROLONGED QTC I reviewed the tracing and have either agreed or edited the findings inthis report. Electronically Signed On 12-26-2020 12:17:58 EDT by LORI BUSTAMANTE. Juan Nelson MD CARDIAC ECG ORDER CHAO [facility] EKG * SURGICAL PATHOLOGY (12/24/2020 9:20 EDT) Note to Patient A healthcare provider will be contacting you to answer any questions you may have about these results, and discuss management options, if applicable. Before this can occur, your pathology results need to be compared with your breast imaging and clinical findings, a process that can take 1-3 business days. 12/30/2020 11:46 EDT [facility] Final Diagnosis Note to Patient: A healthcare provider will be contacting you to answer any questions you may have about these results, and discuss management options, if applicable. Before this can occur, your pathology results need to be compared with your breast imaging and clinical findings, a process that can take 1-3 business days. SUMMARY DIAGNOSIS FOR MALIGNANT BREAST TUMORS AJCC (8th edition): ypT2 ypN0(sn) Laterality: Left Procedure: Total mastectomy; sentinel lymph node biopsy Histologic Type: Invasive ductal Tumor Size: 2.5 x 2.2 x 1.7cm (following therapy) Tumor Location: Upper inner quadrant [place] Combined Histologic Scores: Tubular differentiation: Score 3 Nuclear pleomorphism: Score 3 Mitotic Rate: Score 3 (actual count >50/10 HPF with field diameter of 0.54 mm) Total Score: 9 Overall Grade: G3 (poor) Invasive margins: Negative (>1 cm from anterior and posterior margins) DCIS: Not identified. % DCIS: Not applicable DCIS margins: Not applicable LVI: Not identified. Treatment effect in breast: No definite response. Treatment effect in nodes: No definite response. Lymph nodes: 0/2 (positive/total number examined) [place] nodes: 2 (examined and included in total) 0 nodes with macrometastases 0 nodes with micrometastases 0 nodes with isolated tumor cell clusters only ER/ WA: ER negative; WA negative ([id number]) Her2/dayami: Negative (1+ by immunohistochemist ry) ([id number]) FINAL PATHOLOGIC DIAGNOSIS: A. BREAST, RIGHT, PROPHYLACTIC TOTAL MASTECTOMY (1335 grams): - Benign breast tissue (negative for carcinoma). - Nipple with no histopathologic abnormalities. - Mild fibrocystic changes including: - Mild adenosis - Sclerotic lobules and early sclerosing adenosis (probable treatment effect). - Rare microcysts. B. BREAST, RIGHT, INFERIOR FLAP, EXCISION (42 grams): - Benign breast tissue; negative for carcinoma. C. LYMPH NODE, SENTINEL, LEFT AXILLA, COUNT 5126, EXCISION BIOPSY: - One lymph node negative for malignancy (0/1). D. LYMPH NOTE, SENTINEL, LEFT AXILLA, COUNT 80530, EXCISION BIOPSY: - One lymph node negative for malignancy (0/1). E. BREAST, LEFT, TOTAL MASTECTOMY (1255 grams): - Adenocarcinoma, invasive, ductal type, poorly differentiated. See comment. - Maximum tumor dimension: 2.5 cm (AJCC: ypT2, ypN0(sn)). - Tumor location: Upper inner quadrant - Tumor position: 10 o'clock, 9.5 cm from nipple - Surgical resection margins negative; invasive adenocarcinoma present: - Greater than 1 cm from superficial (anterior) and deep (posterior) margins. - Lymphatic vascular invasion: Not identified. - Ductal carcinoma in situ (DCIS): Not identified. - Hyalinized fibroadenoma (10 mm) - Fibrocystic changes including: - Usual ductal hyperplasia - Sclerotic lobules and early sclerosing adenosis. - Apocrine metaplasia. - Nipple: Negative for tumor. - Prior biopsy site identified. 12/30/2020 11:46 EDT [facility] Diagnosis Comment This patient was treated with neoadjuvent chemotherapy prior to surgery. Based on breast imaging, the tumor was 2.1 cm in greatest dimension and axillary lymph nodes were clinically negative. This would correspond to an AJCC cT2, cN0 tumor classification prior to therapy. Following therapy, there is residual poorly differentiated invasive carcinoma (2.5 x 2.2 x 1.7 cm) present within the left breast total mastectomy. Mitotic figures are easily identified and there are many apoptotic tumor cells that may represent poorly preserved mitotic figures. The tumor shows small foci of necrosis with tumor cell apoptosis; however, it is not clear whether this represents chemotherapy effect or the high proliferative rate. The pathologic size of the tumor following therapy is a little larger than the pre-therapy measurement and would be classified as AJCC: ypT2 ypN0 pNR. 12/30/2020 11:46 [facility] Attestation There was significant resident/fellow involvement in the diagnostic evaluation of this case. By the signature below, the attending physician certifies that they have personally conducted a gross and/or microscopic examination of the described specimens and rendered or confirmed the above diagnosis. 12/30/2020 11:46 [facility] at 1146 Clinical History Malignant neoplasm of left breast in female, estrogen receptor negative, unspecified site of breast ([facility]) 12/30/2020 11:46 [facility] Gross Description A. Received fresh labelled with proper patient identification (initials H, R) and right breast is a mastectomy (1335 g, 28 cm superior to inferior by 22 cm medial to lateral by 5 cm anterior to posterior) with an attached ellipse of skin (10 cm medial to lateral by 5.1 cm superior to inferior). There is a central flattened nipple (1.0 x 0.8 x 0.4 cm). The specimen is oriented with a stitch lateral. The specimen is serially sectioned with cut surfaces showing yellow lobulated adipose tissue with a minimal amount of dense fibrous tissue. No definitive nodules or lesions are present. Outbound Sales Professional sections are submitted as follows: INK DUDLEY Black-deep Blue-superficial BLOCK DUDLEY A1-nipple, perpendicular A2-lactiferous sinus, en face A3-A4-upper outer quadrant A5-A6 lower outer quadrant A7-A8-lower inner quadrant S1-K68-rkhai inner quadrant Time removed from patient: 12/24/2020 0920 hrs. Time in formalin: 12/24/2020 1324 hrs. Time out of formalin: 19:00 hours 12/25/20 B. Received fresh labeled with proper patient identification (initials H, R) and right breast inferior flap is an oriented portion of fibrofatty tissue (42 g, 9.1 x 7.2 cm and 2.5 cm old margin to new margin). The specimen is oriented with a stitch lateral and a clip at the new anterior margin. The tissue at the old margin is composed of yellow lobulated adipose tissue with an intact capsule. The old margin is inked black and the new margin is inked blue. The cut surfaces are composed of yellow lobulated adipose tissue with no areas of hemorrhage, necrosis, or residual tumor. Random patient support representative sections are submitted in B1-B8. C. Received fresh labeled with proper patient identification (initials H, R) and left axillary sentinel lymph node #1 count 5126 is a single lymph node (1.5 x 0.8 x 0.5 cm). The specimen is sectioned and submitted entirely in C1-C2. D. Received fresh labeled with proper patient identification (initials H, R) and left axillary sentinel lymph node #[id number] is a single lymph node (1.1 x 1.0 x 0.5 cm). The specimen is trisected and submitted entirely in D1. E. Received fresh labelled with proper patient identification (initials H, R) and left breast, history of left breast cancer, status post neoadjuvant is a mastectomy (1255 g, 26 cm superior to inferior by 21 cm medial to lateral by 5.5 cm anterior to posterior) with a central skin ellipse (8.1 cm medial to lateral by 5.2 cm superior to inferior). There is a central flattened nipple (0.9 x 0.9 x 0.4 cm). The specimen is oriented with a stitch lateral. Within the upper inner quadrant, approximately 9.5 cm from the nipple, is a well demarcated firm sosa-pink friable mass (2.5 x 2.2 x 1.7 cm). The mass is 2.1 cm from the deep margin and 1.9 cm from the superficial margin. A biopsy clip is identified. The remaining cut surfaces are composed of lobulated adipose tissue with a minimal amount of fibrous tissue. Outbound Sales Professional sections are submitted as follows: INK DUDLEY Black-deep Blue-superficial BLOCK DUDLEY E1-nipple, perpendicular E2-lactiferous sinus, en face E3-nearest deep margin E4-nearest superficial margin, including mass O1-G39-gulrzu mass L62-Q25-yumgh inner quadrant E13-E14 lower inner quadrant N42-M39-bhzrf outer quadrant P90-N72-octju outer quadrant Time removed from patient: 12/24/2020 1126 hrs. Time in formalin: 12/24/2020 1337 hrs. Time out of formalin: 19:00 hours 12/25/20 SOCORRO Fritz (ASCP)12/25/20 11:58 12/30/2020 11:46 EDT [facility] Resident/Chris w: Dilia Mcmillan MD 12/30/2020 11:46 EDT [facility] Performing Lab [facility] 11:46 EDT [facility] Scanned Images 12/30/2020 11:46 EDT [facility] Tissue ENTIRE RIGHT BREAST / Unknown 12/24/2020 9:20 EDT 12/24/2020 14:13 EDT Tissue specimen (specimen) RIGHT BREAST STRUCTURE / Unknown 12/24/2020 9:37 EDT 12/24/2020 14:13 EDT Tissue specimen (specimen) SENTINEL LYMPH NODE / Unknown 12/24/2020 11:14 EDT 12/24/2020 14:13 EDT Tissue specimen (specimen) SENTINEL LYMPH NODE / Unknown 12/24/2020 11:24 EDT 12/24/2020 14:13 EDT Tissue specimen (specimen) LEFT BREAST STRUCTURE / Unknown 12/24/2020 11:26 EDT 12/24/2020 14:13 EDT Maeve Morales DO PATHOLOGY ORDERABLE S [facility] [address] [place] [address] * TEST, URINE (12/24/2020 6:13 EDT) Test, Urine Negative Negative 12/24/2020 8:43 EDT [facility] Comment:False negative resul ts may occur in women who are beyond 5-8 weeks gestation. Diagnosis of should be based on a correlation of test results with typical clinical signs and symptoms. Urine URINE / Unknown Urine Collect / Unknown 12/24/2020 6:13 EDT 12/24/2020 8:37 EDT Katy Sinclair MD URINALYSIS ORDER CHAO [facility] [address] [place] [address] * ECG REPORT - SCANNED (12/19/2020 11:49 EDT) 12/19/2020 11:4 9 EDT Scan 2 Sticker Hand PROCEDURE/MINOR KHURRAM GICAL ORDERABLES documented in this encounter Visit Diagnoses Diagnosis Breast cancer in female ([facility])- Primary documented in this encounter Admitting Diagnoses Diagnosis Breast cancer in female ([facility]) documented in this encounter Administered Medications Inactive Administered Medications - up to 3 most recent administrations Medication Order MAR Action Action Date Dose Rate Site acetaminophen (TYLENOL) tablet 1,000 mg 1,000 mg, oral, EVERY 6 HOURS, First dose on Tue12/24/20 at 1930, Until Discontinued, Routine Given 12/25/2020 12:32 EDT 1,000 mg Given 12/25/2020 7:45 EDT 1,000 mg Given 12/25/2020 0:47 EDT 1,000 mg ceFAZolin in dextrose (iso-os) piggyback 2 g/100 mL 2,000 mg, intravenous, Administer over 30 Minutes, EVERY 8 HOURS, 7 doses, First dose on Tue12/24/20 at 1600, Last dose on Tue12/26/20 at 1600, Type of Therapy: Prophylaxis, Suspected Indication (Select all that apply): Surgical prophylaxis, Routine Given 12/25/2020 7:48 EDT 2,000 mg Given 12/25/2020 0:48 EDT 2,000 mg Given 12/24/2020 15:36 EDT 2,000 mg escitalopram oxalate (LEXAPRO) tablet 20 mg 20 mg, oral, DAILY, First dose on Klaudia 12/25/20 at 0900, Until Discontinued, Routine Given 12/25/2020 8:00 EDT 20 mg HYDROmorphone (DILAUDID) tablet 2-4 mg 2-4 mg, oral, EVERY 4 HOURS PRN, Starting on Tue12/24/20 at 1702, Until Klaudia 12/25/20 at 1604, Pain, Routine Given 12/25/2020 12:32 EDT 2 mg Given 12/25/2020 7:47 EDT 4 mg Given 12/25/2020 0:47 EDT 2 mg lactated ringers (LR) infusion at 25 mL/hr, intravenous, CONTINUOUS, Starting on Tue12/24/20 at 0630, Until Tue12/24/20 at 1702, Routine, Preprocedure New Bag 12/24/2020 10:34 EDT 75 mL/hr Continued by Anesthesia 12/24/2020 7:23 EDT 75 mL/hr New Bag 12/24/2020 7:22 EDT 50 mL/hr lactated ringers (LR) infusion at 75 mL/hr, intravenous, PACU CONTINUOUS, Starting on Tue12/24/20 at 1400, Until Tue12/24/20 at 1638, Routine, Recovery (only) Rate Documented 12/24/2020 14:31 EDT 75 mL/hr pantoprazole (PROTONIX) tablet 40 mg 40 mg, oral, DAILY, First dose on Klaudia 12/25/20 at 0900, Until Discontinued Given 12/25/2020 8:00 EDT 40 mg documented in this encounter Discontinued Medications Medication Sig Discontinue Reason Start Date End Da te ondansetron (ZOFRAN-ODT) 8 mg disintegrating tablet Take 1 Tab by mouth every 8 hours as needed for Nausea. 07/16/2020 12/25/2020 prochlorperazine (COMPAZINE) 10 mg tablet Take 1 Tab by mouth every 6 hours as needed for Nausea. 07/22/2020 12/25/2020 OLANZapine (ZYPREXA) 5 mg tablet Take 1 Tablet by mouth daily. Take 1 tab on day 1 and 2 and 3 of chemotherapy 10/30/2020 12/25/2020 documented as of this encounter Active and Recently Administered Medications Times are shown in EDT. Scheduled Medication Order 12/23/2020 12/24/2020 12/25/2020 acetaminophen (TYLENOL) tablet 1,000 mg 1,000 mg, oral, EVERY 6 HOURS, First dose on Tue12/24/20 at 1930, Until Discontinued, Routine 1844 (Given - Provider: Caio Valentin RN) 0047 (Given - Provider: Lubna Mcnally, RN)0745 (Given - Provider: Valerie Morgan)1232 (Given - Provider: Valerie Morgan) ceFAZolin (ANCEF) syringe 2 g (COMPLETED) 2 g, intravenous, Administer over 10 Minutes, PRE-OP ONCE, 1 dose, On Tue12/24/20 at 0630, Routine, Preprocedure 0740 (Given - Provider: Mary Fan MD)1150 (Given - Provider: Mary Fan MD) ceFAZolin in dextrose (iso-os) piggyback 2 g/100 mL 2,000 mg, intravenous, Administer over 30 Minutes, EVERY 8 HOURS, 7 doses, First dose on Tue12/24/20 at 1600, Last dose on Tue12/26/20 at 1600, Type of Therapy: Prophylaxis, Suspected Indication (Select all that apply): Surgical prophylaxis, Routine 1536 (Given - Provider: Thelma Tadeo RN) 0048 (Given - Provider: Lubna Mcnally RN)0748 (Given - Provider: Valerie Morgan)1600 (Canceled Entry - Provider: Batch Job User Admin - Comment: Automatically canceled at discontinue of medication order) escitalopram oxalate (LEXAPRO) tablet 20 mg 20 mg, oral, DAILY, First dose on Tue12/25/20 at 0900, Until Discontinued, Routine 0800 (Given - Provid er: Valerie Morgan) pantoprazole (PROTONIX) tablet 40 mg 40 mg, oral, DAILY, First dose on Tue12/25/20 at 0900, Until Discontinued 0800 (Given - Provid er: Valerie Morgan) Continuous Medication Order 12/23/2020 12/24/2020 12/25/2020 lactated ringers (LR) infusion (CANCELED) at 25 mL/hr, intravenous, CONTINUOUS, Starting on Tue12/24/20 at 0630, Until Tue12/24/20 at 1702, Routine, Preprocedure 0658 (New Bag - Provider: Liza Kemp RN)0722 (New Bag - Provider: Mary Fan MD)0723 (Continued by Anesthesia - Provider: Maeve Morales DO)1034 (New Bag - Provider: Mary Fan MD)1440 (Anesthesia Volume Adjustment - Provider: KARLY Dickinson) lactated ringers (LR) infusion (CANCELED) at 75 mL/hr, intravenous, PACU CONTINUOUS, Starting on Tue12/24/20 at 1400, Until Tue12/24/20 at 1638, Routine, Recovery (only) 1431 (Rate Documented - Provider: Thelma Tadeo, RADHA)1611 (Completed - Provider: Thelma Tadeo RN) PRN Medication Order 12/23/2020 12/24/2020 12/25/2020 bupivacaine-EPINEPHrine (PF) 0.5 %-1:200,000 injection (CANCELED) As needed, Starting on Tue12/24/20 at 1357, Until Tue12/24/20 at 1357, Routine, Intraprocedure 1357 (Given - Provider: Juanito Carcamo MD FACS - Comment: Put into 4 JUAN drains) HYDROmorphone (DILAUDID) tablet 2-4 mg 2-4 mg, oral, EVERY 4 HOURS PRN, Starting on Tue12/24/20 at 1702, Until Klaudia 12/25/20 at 1604, Pain, Routine 1844 (Given - Provider: Caio Valentin RN) 0047 (Given - Provider: Lubna Mcnally RN)0747 (Given - Provider: Valerie Morgan)1232 (Given - Provider: Valerie Morgan) HYDROmorphone (PF) (DILAUDID) 0.5 mg/0.5 mL syringe 0.25-0.5 mg 0.25-0.5 mg, intravenous, EVERY 4 HOURS PRN, Starting on Tue12/24/20 at 1702, Until Klaudia 12/25/20 at 1604, Pain, Routine lidocaine 1 % 30 mL, bupivacaine (PF) (MARCAINE) 0.25 % (2.5 mg/mL) 30 mL (CANCELED) As needed, Starting on Tue12/24/20 at 0800, Until Tue12/24/20 at 1043, Routine, Intraprocedure 0800 (Given - Provider: Maeve Morales DO) povidone-iodine (BETADINE) 10 % external solution (CANCELED) As needed, Starting on Tue12/24/20 at 1214, Until Tue12/24/20 at 1215, Intraprocedure 1214 (Given - Provider: Juanito Carcamo MD FACS - Comment: Used to prep skin before insertion of tissue environment artist) sodium chloride 0.9 % irrigation (CANCELED) As needed, Starting on Tue12/24/20 at 1017, Until Tue12/24/20 at 1043, Routine, Intraprocedure 1017 (Given - Provider: Juanito Carcamo MD FACS - Comment: 1 g Ancef with 100mg Gentamicin mixed for irrigation) sodium chloride 0.9 % irrigation (CANCELED) As needed, Starting on Tue12/24/20 at 1214, Until Tue12/24/20 at 1215, Routine, Intraprocedure 1214 (Given - Provider: Maeve Morales DO) sodium chloride 0.9 % irrigation (CANCELED) As needed, Starting on Tue12/24/20 at 1216, Until Tue12/24/20 at 1217, Routine, Intraprocedure 1216 (Given - Provider: Juanito Carcamo MD FACS - Comment: 1g Ancef, 100mg Gentamicin, 60mL betadine added for irrigation) documented in this encounter Orders Medications Ordered That Juanito ht Not Have Been Administered Count Last Ordered Date First Ordered Date atropine 0.1 mg/mL syringe 0.5 mg 1 021 bupivacaine-EPINEPHrine (PF) 0.5 %-1:200,000 injection 1 12/24/2020 ceFAZolin (ANCEF) syringe 2 g 1 12/24/2020 diphenhydrAMINE (BENADRYL) i njection 12.5 mg 1 12/24/2020 fentaNYL citrate (PF) injection 100 mcg 1 0 12/24/2020 fentaNYL citrate (PF) injection 50 mcg 1 HYDROmorphone (DILAUDID) tablet 2-4 mg 1 HYDROmorphone (PF) (DILAUDID ) 0.5 mg/0.5 mL syringe 0.25-0.5 mg 1 12/24/2020 HYDROmorphone (PF) (DILAUDID ) 0.5 mg/0.5 mL syringe 0.3-0.5 mg 1 12/24/2020 lidocaine (PF) 10 mg/mL (1 % ) injection 2 mg 1 12/24/2020 lidocaine 1 % 30 mL, bupivac daren (PF) (MARCAINE) 0.25 % (2.5 mg/mL) 30 mL 1 12/24/2020 metoclopramide (REGLAN) injection 10 mg 1 0 12/24/2020 naloxone (NARCAN) injection 0.2 mg 1 2020 ondansetron (PF) (ZOFRAN) injection 4 mg 3 12/24/2020 povidone-iodine (BETADINE) 1 0 % external solution 1 12/24/2020 sodium chloride 0.9 % irrigation 3 12/25/19 21 Diet Count Last Ordered Date First Orde red Date DISCHARGE DIET 1 12/25/2020 Nursing Count Last Ordered Date First Orde red Date ACTIVITY INSTRUCTIONS 1 12/25/2020 BATHING INSTRUCTIONS 1 12/25/2020 WOUND CARE INSTRUCTIONS 2 12/25/2020 CONTRAINDICATION TO ANTICOAG ULATION THERAPY 1 12/24/2020 Discharge Count Last Ordered Date First Orde red Date DISCHARGE PATIENT 1 12/25/2020 documented in this encounter Care Teams Orthotic Fitter Relationship Specialty Start Date End Date Batsheva Lira FNP [address] [phone] PCP - General 02/19/20 07/21/22 documented as of this encounter
--- OUTSIDE RECORDS SUMMARY | 2023-12-10 17:42 | XMS_ITS | Encounter Summary ---
Author Organization [facility] Address [address] [place] [address] Care Team Providers Care Hose Seamer Name Role Phone Batsheva Lira JOHN Primary Care Provider [phone] Pam Germain MD Unavailable [phone] Janay Duran SENIOR CLIMATE ADVISOR Primary Care Provider Unava ilable Reason for Visit * Reason Onset Date Comments Prior Auth, Medication 01/28/2021 Capecitab ine 500 mg Encounter Details Date Type Department Care Team (Late st Contact Info) Description 01/28/2021 Telephone [facility] Cancer Center Hematology & Oncology - [facility] [address] [place], [place] [phone] [place] [address] [place] [phone] Prior Auth, Medication (Capecitabine 500 mg ) Social History Tobacco Use Types Packs/Day Years [...] Info) Description 01/31/2024 13:40 EDT Office Visit [facility] Surgical Oncology - [address] [phone] Maeve Morales, [address] [place] [address], [address] [place] [phone] documented as of this encounter Visit Diagnoses Not on filedocumented in this encounter Care Teams Hose Seamer Relationship Specialty Start Date End Date Batsheva Lira FNP [address] [phone] PCP - General 02/19/20 07/21/22 Janay Duran, SENIOR CLIMATE ADVISOR [address] [facility] [address] [place] [address] PCP - General Family Medicine - Primary Care 07/22/22 Pam Germain MD 111 [facility] 2 [place] [address] Medical Oncology 03/22/22 documented as of this encounter
--- OUTSIDE RECORDS SUMMARY | 2023-12-10 17:42 | XMS_ITS | Encounter Summary ---
Author Organization [facility] Address [address] [place] [address] Care Team Providers Care Rn Radiation Name Role Phone Batsheva Lira JOHN Primary Care Provider [phone] Reason for Visit * Reason Onset Date Comments Appointment Related 01/13/2021 Encounter Details Date Type Department Care Team (Late st Contact Info) Description 01/13/2021 Telephone [facility] Rehabilitation Therapy - [facility] [address] [place] [address] Physical, Therapy Appointment Related Social [...] * Telephone Encounter - Sera Langston - 01/13/2021 0933 EDT A message was left for patient to contact [phone] to reschedule [facility] evaluation in late January. documented in this encounter Plan of Treatment Upcoming Encounters Date Type Department Care Team (Late Contact Info) Description 01/31/2024 13:40 EDT Office Visit [facility] Surgical Oncology - [address] [phone] Maeve Morales, [address] [facility], [address] [place] [phone] documented as of this encounter Visit Diagnoses Not on filedocumented in this encounter Care Teams Rn Radiation Relationship Specialty Start Date End Date Batsheva Lira FNP [address] [phone] PCP - General 02/19/20 07/21/22 documented as of this encounter
--- OUTSIDE RECORDS SUMMARY | 2023-12-10 17:42 | XMS_ITS | Encounter Summary ---
Author Organization [facility] Address [address] [place] [address] Care Team Providers Care Supervisor Assembly And Packing Name Role Phone Batsheva Lira JOHN Primary Care Provider [phone] Reason for Visit * Reason Onset Date Comments Post-OP Follow Up 01/05/2021 redness, no ch anges since 01/03. Encounter Details Date Type Department Care Team (Late st Contact Info) Description 01/05/2021 Telephone [facility] Plastic, Reconstructive & Cosmetic Surgery - [place] [address] [facility], [address] [place] [phone] Katia Degroot RN [address] [address] Post-OP Follow Up (redness, no changes since 01/03.) Social History Tobacco Use Types Packs/Day Years [...] Telephone Encounter - Katia Brown RN - 01/05/2021 0940 EDT Images from the original note were not included. Left breast redness in the crease was noticed on Tuesday01/03/21. It has not spread, does not feelwarm to touch, and she is afebrile. Austin will clean the area with soap and water and pat dry. She will remove the band aid covering the drain site and leave off if the area is healed. She will use gauze to cover area if needed. I instructed her to continue to monitor and call back if the redness worsens, spreads, becomes warm, any drainage noticed or has a fever. She is scheduled to follow up on 01/08/[address] Carcamo but agrees to call if there are any changes or concerns prior to this. Updated photo sent this morning: KATIA BROWN RN documented in this encounter Plan of Treatment Upcoming Encounters Date Type Department Care Team (Late st Contact Info) Description 01/31/2024 13:40 EDT Office Visit [facility] Surgical Oncology - [address] [address] Maeve Morales, DO [address] [facility], [address] [place] [phone] documented as of this encounter Visit Diagnoses Not on filedocumented in this encounter Care Teams Supervisor Assembly And Packing Relationship Specialty Start Date End Date Batsheva Lira FNP [address] [phone] PCP - General 02/19/20 07/21/22 documented as of this encounter
--- OUTSIDE RECORDS SUMMARY | 2023-12-10 17:42 | XMS_ITS | Encounter Summary ---
Author Organization [facility] Address [address] [place] [address] Care Team Providers Care Insulation Extruder Operator Name Role Phone Batsheva Lira JOHN Primary Care Provider [phone] Reason for Visit * Reason Comments Tumor Board * Consult (Routine) - New Request Specialty Diagnoses / Procedures Referred By Jen gonzáles Referred To Contact Hematology and Oncology Diagnoses Malignant 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, estrogen receptor negative (H[place]) [place] [address] [place] [phone] Referral ID Status Reason Start Date Expiration Date Visits Requested Visits Authorized [id number] New Request Specialty Services Required 01/07/2021 1 1 Encounter Details Date Type Department Care Team (Late st Contact Info) Description 01/22/2021 12:15 EDT Tumor Board [facility] Cancer Center Hematology & Oncology - [facility] [address] [place], [place] [address] Malignant neoplasm of upper-inner quadrant of left [...] as of this encounter Progress Notes * Kenia Cline RN - 01/22/2021 1215 EDT Transdisciplinary team presenting case: [facility] Tumor Board, Dr. Queenie Conde Date of Presentation: 01/22/2021 Patient Name: Austin Squires Diagnosis: No diagnosis found. AJCC Stage: II Clinical Question: Response to therapy and next steps Radiology Question:No need to review Pathology Question: Path from 12/24 surgery Prospective Presentation? Prospective Presentation: Yes Clinical Trial Option Discussed? Clinical Trials: Not Applicable Treatment Guidelines Discussed? Yes Attending Services: Medical Oncology, Radiation, Surgery, Pathology and Radiology. Tumor Board Review and Discussion: Pathology: Pathology review notes: No significant treatment response was identified. PDL1 testing appears to be negative. Note: this interpretation is subject to the limitations of the tumor board setting and is simply advisory in nature. Advisory Recommendations: No studies to consider. Will be getting adjuvant treatment with capecitabine (Per CREATE-X trial) These advisory recommendations are based on the limited information available and presented during the tumor board. This advice does not supersede or substitute for the treating physicians??? physical assessment findings and clinical judgement. I was present at the Tumor Board conference when this patient was discussed. I have reviewed and edited the Tumor Board note as needed to reflect the general discussion of our multidisciplinary conference members. documented in this encounter Plan of Treatment Upcoming Encounters Date Type Department Care Team (Late st Contact Info) Description 01/31/2024 13:40 EDT Office Visit [facility] Surgical Oncology - [address] [phone] Maeve Morales DO 111 [facility], [facility], Level [address] [place] [address] Scheduled Referrals Name Type Priority [...] Primary documented in this encounter Care Teams Insulation Extruder Operator Relationship Specialty Start Date End Date Batsheva Lira FNP [address] [phone] PCP - General 02/19/20 07/21/22 documented as of this encounter
--- OUTSIDE RECORDS SUMMARY | 2023-12-10 17:42 | XMS_ITS | Encounter Summary ---
Author Organization [facility] Address [address] [place] [address] Care Team Providers Care Crepe Machine Operator Name Role Phone Batsheva Lira JOHN Primary Care Provider [phone] Reason for Visit * Reason Comments Other Encounter Details Date Type Department Care Team (Late st Contact Info) Description 12/30/2020 Refill [facility] Cancer Center Hematology & Oncology - [facility] [address] [place] [address] [place] [address] [place] [phone] Other Social History Tobacco Use Types Packs/Day [...] Dispensed Refills Start Date End Da te omeprazole (PRILOSEC) 40 mg capsule TAKE 1 CAPSULE BY MOUTH EVERYDAY AT BEDTIME 90 capsule 3 12/30/2020 03/26/2021 documented in this encounter Miscellaneous Notes * Telephone Encounter - Lolly Antunez RN - 12/30/2020 1029 EDT Refilled medication after discussing with Dr Conde. documented in this encounter Plan of Treatment Upcoming Encounters Date Type Department Care Team (Late st Contact Info) Description 01/31/2024 13:40 EDT Office Visit [facility] Surgical Oncology - [address] [address] Maeve Morales, DO [address] [place] [address], [address] [place] [address] documented as of this encounter Visit Diagnoses Not on filedocumented in this encounter Discontinued Medications Medication Sig Discontinue Reason Start Date End Da te omeprazole (PRILOSEC) 40 mg capsule Take 1 Cap by mouth at bedtime. 10/08/2020 12/30/2020 documented as of this encounter Care Teams Crepe Machine Operator Relationship Specialty Start Date End Date Batsheva Lira FNP [address] [phone] PCP - General 02/19/20 07/21/22 documented as of this encounter
--- OUTSIDE RECORDS SUMMARY | 2023-12-10 17:42 | XMS_ITS | Encounter Summary ---
Author Organization [facility] Address [address] [place] [address] Care Team Providers Care Overlock Sewing Machine Operator Name Role Phone Batsheva Lira JOHN Primary Care Provider [phone] Encounter Details Date Type Department Care Team (Latest Contact Info) Description 12/24/2020 Travel Social History Tobacco Use Types Packs/Day [...] Info) Description 01/31/2024 13:40 EDT Office Visit [facility] Surgical Oncology - [address] [phone] Maeve Morales, [address] [facility], [facility], Level [address] [place] [phone] documented as of this encounter Visit Diagnoses Not on filedocumented in this encounter Care Teams Overlock Sewing Machine Operator Relationship Specialty Start Date End Date Batsheva Lira FNP [address] [phone] PCP - General 02/19/20 07/21/22 documented as of this encounter
--- OUTSIDE RECORDS SUMMARY | 2023-12-10 17:42 | XMS_ITS | Encounter Summary ---
Author Organization [facility] Address [address] [place] [address] Care Team Providers Care Laboratory Immunologist Name Role Phone Batsheva Lira JOHN Primary Care Provider [phone] Reason for Visit * Reason Onset Date Comments Appointment Related 01/15/2021 Encounter Details Date Type Department Care Team (Late st Contact Info) Description 01/15/2021 Telephone [facility] Cancer Center Hematology & Oncology - [facility] [address] [place], [place] [phone] oLlly Antunez RN Appointment Related Social History Tobacco Use Types [...] Telephone Encounter - Lolly Antunez RN - 01/15/2021 0936 EDT Called Austin to change her appointment time. She is currently scheduled for 1500 on 01/15, Dr Conde would like her moved to 9/14 am as she is being presented at tumor board on 01/22. Pt is okay with this plan and we will schedule her for 01/27 at 1000. documented in this encounter Plan of Treatment Upcoming Encounters Date Type Department Care Team (Late st Contact Info) Description 01/31/2024 13:40 EDT Office Visit [facility] Surgical Oncology - [address] [phone] Maeve Morales, DO 111 [facility], [facility], Level [address] [place] [address] documented as of this encounter Visit Diagnoses Not on filedocumented in this encounter Care Teams Laboratory Immunologist Relationship Specialty Start Date End Date Batsheva Lira FNP [address] [phone] PCP - General 02/19/20 07/21/22 documented as of this encounter
--- OUTSIDE RECORDS SUMMARY | 2023-12-10 17:42 | XMS_ITS | Encounter Summary ---
Author Organization [facility] Address [address] [place] [address] Care Team Providers Care Taker Off Drying Kiln Name Role Phone Batsheva Lira JOHN Primary Care Provider [phone] Reason for Visit * Reason Onset Date Comments Follow-up 01/26/2021 Encounter Details Date Type Department Care Team (Late st Contact Info) Description 01/26/2021 Telephone [facility] Plastic, Reconstructive & Cosmetic Surgery - [address], [address] [place] [address] Juanito Carcamo MD [address] [phone] Follow-up Social History Tobacco Use Types [...] Telephone Encounter - Mike Gotti RN - 01/26/2021 1021 EDT Spoke with Dary from [facility] PT, advised that patient will be at her 6 week gene on 02/04 in which restrictions are lifted at that time in regards to activity unless anything comes up prior to appointment on 02/05/21. Advised Dary that patient still does have limitations at this time regards to ROM. Will also address at patient 6 week appointment. MIKE GOTTI RN 01/26/2021 10:23 * Telephone Encounter - Promise Faulkner MA - 01/26/2021 1017 EDT PT calling to discuss restrictions. Promise Faulkner MA documented in this encounter Plan of Treatment Upcoming Encounters Date Type Department Care Team (Late st Contact Info) Description 01/31/2024 13:40 EDT Office Visit [facility] Surgical Oncology - [facility] [address] [place] [address] Maeve Morales, DO 111 [facility], Level [address] [place] [phone] documented as of this encounter Visit Diagnoses Not on filedocumented in this encounter Care Teams Taker Off Drying Kiln Relationship Specialty Start Date End Date Batsheva Lira FNP [address] [phone] PCP - General 02/19/20 07/21/22 documented as of this encounter
--- OUTSIDE RECORDS SUMMARY | 2023-12-10 17:42 | XMS_ITS | Encounter Summary ---
Author Organization [facility] Address [address] [place] [address] Care Team Providers Care Resident Services Coordinator Name Role Phone Batsheva Lira JOHN Primary Care Provider [phone] Reason for Visit * Auth/Cert Specialty Diagnoses / Procedures Referred By Jen gonzáles Referred To Contact Diagnoses Malignant neoplasm of left breast in female, estrogen receptor negative, unspecified site of breast ([facility]) Procedures NE MASTECTOMY, SIMPLE, COMPLETE NE BX/REMV,LYMPH NODE,DEEP AXILL NE INTRAOPERATIVE SENTINEL LYMPH NODE ID W DYE INJECTION NE INJ RADIOACTIVE TRACER FOR ID OF SENTINEL NODE NE RMVL ZAHRAA CTR VAD W/SUBQ PORT/STORY READER CTR/PRPH INSJ NE TISSUE PRESS TENDER STAR SIGNAL PLACEMENT BREAST RECONSTRUCTION NE IMPLNT BIO IMPLNT FOR SOFT TISSUE REINFORCEMENT NE ALLODERM Maeve Morales, DO [address] [place] [phone] Referral ID Status Reason Start Date Expiration Date Visits Re quested Visits Authorized [id number] 10/27/2020 05/15/2021 1 1 Encounter Details Date Type Department Care Team (Late st Contact Info) Description 12/24/2020 7:25 EDT - 12/24/2020 17:39 EDT Surgery [facility] OR [address], [place] [address] Maeve Morales, DO [address] [place] [phone] Bilateral skin sparing mastectomies, left sentinel lymph node biopsy, right chest wall port removal [13730 (CPT??)] Surgery Details Date/Time Status Location OR Service Patient Class Case Class Case Type Trauma Case? 12/24/20 0725 Posted [facility] Oncology Extende d Stay H - Elective Panel 1 Procedure LRB Anes Op Region Wound Class Comments Bilateral skin sparing mastectomies, left sentinel lymph node biopsy, right chest wall port removal Bilateral General Breast Class I/ Clean Hands on time: 5 hours BIOPSY OR EXCISION, DEEP LYMPH NODE, AXILLARY Left General Axilla Class I/ Clean INTRAOPERATIVE MAPPING SENTINEL LYMPH NODES INCLUDING INJECTION Left General Axilla Class I/ Clean INJECTION, FOR SENTINEL LYMPH NODE IDENTIFICATION Left General Axilla Class I/ Clean REMOVAL, TUNNELED CVA DEVICE, INSERTION, CENTRAL, PERIPHERAL PORT Right General Chest Class I/ Clean Panel 2 Procedure LRB Anes Op Region Wound Class Comments bilateral tissue corporate sales trainer reconstruction with allograft of breasts after mastectomy Bilateral General Breast Class I/ Clean INSERTION, BIOLOGIC IMPLANT, FOR SOFT TISSUE REINFORCEMENT Bilateral General Breast Class I/ Clean Surgeon Surgeon Role Service Panel Juanito Carcamo MD FACS Primary Plastics 2 Juan Nelson MD Resident - Assisting General 2 Maeve Morales, Primary Oncology 1 Lida Enriquez MD Oncology 1 Special Needs Bluetooth OncoProbe; Nuclear medicine injection @ 7amIV placement: rightHands on time: 5 hours documented in this encounter Social History Tobacco [...] Sign Reading Time Taken Comments Blood Pressure 103/72 12/24/2020 164 EDT Pulse 86 12/24/2020 1641 EDT Temperature 37.2 ??C (98.9 ??F) 12/24/2020 1641 EDT Respiratory Rate 12 12/24/2020 1641 EDT Oxygen Saturation 99% 12/24/2020 164 EDT Inhaled Oxygen Concentration - - Weight [...] Date Noted ??? *Breast cancer in female ([facility]) 12/24/2020 Resolved Hospital Problems No resolved problems to display. Principal Procedure: 1. Bilateral skin sparing mastectomies and left sentinel lymph node biopsy, port removal (Dr. Moralse) 2. bilateral tissue corporate sales trainer reconstruction with allograft of breasts after mastectomy (Dr. Carcamo) Date: 12/24/2020 Secondary Procedures: none Hospital Course Austin Squires is a 45 year old female with a history of left-sided triple negative breast cancer whounderwent bilateral skin sparing mastectomies and left sentinel lymph node biopsy and port removal by Dr. Morales, and bilateral tissue corporate sales trainer reconstruction with allograft of breasts after mastectomy [...] Administered Date(s) Administered ??? Covid-19 mRNA Vaccine ([employer] COVID-19) PF 0.3 ml IM (12 yrs+) [...] Procedure Component Value Units Date/Time SURGICAL PATHOLOGY [[id number]] Collected: 12/24/20 0920 Lab Status: In process Specimen: Tissue from Breast, right; Tissue from Breast, right; Tissue from Lymph Node, Harrison; Tissue from Lymph Node, Harrison; Tissue from Breast, left Updated: 12/24/20 1413 Relevant Studies at Discharge n/a Last Lab Results at Discharge n/a Discharge Follow Up Upcoming Appointments Jan 01, 2021 10:00 Post Op Visit with Oksana Wilkins PA-C [facility] Plastic, Reconstructive & Cosmetic Surgery - [place] (--) [address] [facility] [address] [facility] [address] Jan 06, 2021 10:20 Post Op Visit with Maeve Morales DO [facility] Surgical Oncology - [facility] ([facility] [place]) [address] [facility] [address] Jan 06, 2021 11:30 Follow Up Visit with Queenie Conde MD [facility] Hematology & Oncology - [facility] ([facility]) [address] [facility] [address] Jan 14, 2021 9:00 Steps to Wellness with Katia Hughes, LEROY [facility] Rehabilitation Therapy [facility] (--) [address] [facility] [address] Jan 26, 2021 9:15 COMPLEX DECONGESTIVE EVAL with Dary Gómez PT [facility] (--) [address] [facility] [address] Yanely Ambrosio MD, PGY-1 Plastic Surgery Pager # [phone] documented in this encounter Medications at Time [...] 12/30/2020 triamcinolone acetonide (KENALOG) 0.1 % pasteIndications:Jennifer gnant [...] Code Departure Means Destination Home or Self Nursing Home documented in this encounter Progress Notes * Gertrudis Ortega - 12/25/2020 1216 EDT Initial Case Management/Social Work Assessment and Discharge Plan/Readmission Risk Assessment REASON FOR ADMISSION: Breast cancer in female ([facility]) now POD 1 bilat mastectomy and corporate sales trainer placement Patient understands reason for admission: Yes PATIENT INFO VERIFIED: PCP, Contact Info, Address Type of housing (single family, condo, apartment, correction, single room occupancy, [facility] funded hotel room, group snf) - single family home Who does the [...] available to the patient? Family member(s) Is 06/12 care available? Yes (for a few days) ADVANCED DIRECTIVES, POA &/or COLST IN PLACE: Healthcare Directive: No, patient does not have advance directive for healthcare treatment DIRECTIVES FOR FINANCES: TRANSPORTATION: Transportation: Family Patient expects to be discharged to: Home CULTURAL, SABIANISM and/or LANGUAGE factors affecting health care/discharge planning: Spiritual/Cultural Requests: None Language/Literacy Needs Do you need us to provide any communication aids or devices?: No Insurance Information: Medical Insurance: Yes Type of insurance: Medicaid, Other (See Comments) ([facility]) Medicaid Type: Community Nutrition: DISCHARGE RISK ASSESSMENT: Incontinent Total # selected above: Score of 1 - 2: This patient is at LOW RISK for re-hospitalization Tentative plan to address the risk of re-hospitalization for those at HIGH MODERATE RISK: RAPT TOOL: Age: (Age 45) Gender: Female Ambulation distance: 2 or more blocks (600ft) Gait device: None Community Services: Home health, MOW, SAS-none Will you live with someone who will [...] Home Health Services: None DME Provider: Pharmacy: [id number] - [place], [place] - [address] [address] [place] [address] [facility] - [place], [place] - [address] [facility] [address] [facility] [address] Home Health: Other: POST HOSPITAL TRANSITION PLAN: [...] to self care. Li Ortega RN CCM [id number] * Mihir Arriaga - 12/25/2020 0742 EDT Surgical Oncology Progress Note DOS: 12/25/2020 LOS: 0 days (12/24/2020) CC: Breast cancer in female ([facility]) Procedure: 1. Bilateral skin sparing mastectomies and left sentinel lymph node biopsy, port removal ([place]) 2. bilateral tissue corporate sales trainer reconstruction with allograft of breasts after mastectomy [...] axilla/breast all with scant serosang output Meds: CAROLE Reviewed Assessment: Austin Squires is a 45 y female with history of triple negative left breast cancer s/p chemotherapywho is POD#1 s/p bilateral skin sparing mastectomies, port removal, and tissue corporate sales trainer placement, recovering well on the floor with adequate pain control. Plan: - appreciate care from plastics primary team - ok for discharge from surg onc perspective Jocelyn Good 12/25/2020 7:43 [phone] ADDENDUM I have seen and examined this patient with the medical student. I have overseen the medical decision making process and agree with the above. MIHIR ARRIAGA MD 12/25/2020 12:20 [phone] * Pavel Sterling MD - 12/24/2020 2000 EDT Surgery Post-operative Check Note Admit Date: 12/24/2020 Date of Service: 12/24/2020 POD:0 Chief Complaint: Chest tightness Procedure: 1. Bilateral skin sparing mastectomies and left sentinel lymph node biopsy, port removal (Dr. Morales) 2. bilateral tissue corporate sales trainer reconstruction with allograft of breasts after mastectomy [...] of breast in female, estrogen receptor negative ([facility]) Past Medical History: Diagnosis Date ??? Exercise involving housework ??? 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 ??? Head trauma 06/19/20 fell [...] and cover, 1 hr before planned port [id number] g 1 ??? OLANZapine (ZYPREXA) 5 mg [...] * OR Surgeon - Juanito Carcamo MD [facility] - 12/25/2020 9444 EDT Operative Note Date: 12/24/2020 Location: [facility] OR Name: Austin Squires, : 1975, PREOPERATIVE DIAGNOSIS: (1) left breast Cancer POSTOPERATIVE DIAGNOSIS: (1) left breast Cancer PROCEDURE : 1. Immediate Bilateral Prepectoral Tissue Director Acute Reconstruction with Allograft following mastectomy 2. Intraoperative [...] preoperatively. She has elected to undergo tissue corporate sales trainer with allograft reconstruction planned for the prepectoral position following the mastectomy. Signed informed [employer] and signed informed [...] mm punch). This was contoured to the corporate sales trainer and secured with buried interrupted running3-0 PDS. [...] the orienting line drawn vertically on the corporate sales trainer was used to achieve very precise orientation of the corporate sales trainer. The central tab was then secured against the neoinframammary fold with a 2-0 PDS suture. Once this was seen to be in good position, the remaining 2nd and 4th tabs were then secured. Two 15-Welsh Attila drains were placed exiting laterally. These were sewn in with 3-0 nylon. Attention was then turned to the leftside. Here also a 2-0 PDS suture was placed medially and the medial tab was secured, the orienting line drawn vertically on the corporate sales trainer was used to achieve very precise orientation of the corporate sales trainer. The central tab was then secured against the neoinframammary fold with a 2-0 PDS suture. Once this was seen to be in good position, the remaining 2nd and 4th tabs were then secured. Two 15-Welsh Attila drains were placed exiting laterally. These were sewn in with 3-0 nylon. The patient was placed inthe seated position and symmetry was checked. The 750 cc [place] Artoura expanders were then accessed, de-aired and [...] lymph node biopsy. SURGEON: Maeve Morales DO SAWMILL MOULDER OPERATOR: Lida Enriquez MD ANESTHESIA: General endotracheal and [...] Dr Carcamo, who will be performing tissue corporate sales trainer based reconstruction. The patient tolerated our portion of the surgery well. Unless otherwise noted, there were no complications, no blood loss, no cultures obtained, no specimens removed, and no drains retained. Maeve Morales DO / SA Confirmation: [id number] Dictation ID: [id number] cc: documented in this encounter Miscellaneous Notes * Plan of Care - Valerie Morgan - 12/25/2020 1308 EDT Nursing Discharge Note D: Patient noted with discharge orders to: home. A: Prescriptions sent to [facility] pharmacy. Reviewed discharge instructions and prescriptions [...] Care - Lubna Mcnally RN - 12/25/2020 0619 EDT Data: A&Ox3, Vital signs stable. 2 [...] - 12/24/2020 1416 EDT Date: 12/24/2020 Location: [facility] OR Name: Austin Squires, : 1975, Diagnosis Pre-op Diagnosis * Malignant neoplasm of left breast in female, estrogen receptor negative, unspecified site of breast (HCC-CMS) [C50.912, Z17.1] Post-op Diagnosis * Malignant neoplasm of left breast in female, estrogen receptor negative, unspecified site of breast (HCC-CMS) [C50.912, Z17.1] Procedures bilateral tissue corporate sales trainer reconstruction with allograft of breasts after mastectomy [...] L and 2 in R axilla/breast Staff: Lead Java J2Ee Developer: Joann Diaz RN; Laurie Escalera RN Relief Lead Java J2Ee Developer: Vivian Hopkins RN; Regnia Doss RN Relief Scrub: August Scrub Person: Shira Bernardo Patient Process Coordinator: Shefali Ulloa Indications: Austin Squires is an [...] MD 12/24/2020 11:41 General Surgery PGY-5 Pager [phone] * PAT Note - Ghazala Garcia RN - 12/19/[address] Queenie Conde's 07/22/20 note, [...] 01/31/2024 13:40 EDT Office Visit [facility] Surgical Oncology - [address] [id number] Maeve Morales, [address] [place] [address], [address] [place] [address] Scheduled Referrals Name Type Priority [...] 5 hours RECONSTRUCTION, BREAST, BILATERAL, WITH TISSUE PRESS TENDER STAR SIGNAL INSERTION 12/24/2020 7:13 EDT Malignant neoplasm of [...] estrogen receptor negative, unspecified site of breast ([facility]) Special Needs Bluetooth OncoProbe; Nuclear medicine injection @ 7amIV placement: rightHands on time: 5 hours TEST, URINE STAT 12/24/2020 6:13 EDT ECG REPORT - SCANNED 12/19/2020 11:49 EDT documented in this encounter Results * IMPLANT RECORD - SCANNED (01/05/2021 7:49 EDT) 01/05/2021 7:49 EDT Scan 2 Fly Tier PROCEDURE/MINOR KHURRAM GICAL ORDERABLES * IMPLANT RECORD - SCANNED (12/29/2020 11:11 EDT) 12/29/2020 11:1 1 EDT Scan 2 Fly Tier PROCEDURE/MINOR KHURRAM GICAL ORDERABLES * ECG REPORT - SCANNED (12/29/2020 11:11 EDT) 12/29/2020 11:1 1 EDT Scan 2 Fly Tier PROCEDURE/MINOR KHURRAM GICAL ORDERABLES * ECG REPORT - SCANNED (12/26/2020 12:24 EDT) 12/26/2020 12:2 4 EDT Scan 2 Fly Tier PROCEDURE/MINOR KHURRAM GICAL ORDERABLES * EKG 12-LEAD (12/24/2020 18:29 EDT) 12/24/2020 18:2 9 EDT Narrative [facility] - 12/26/2020 12:17 EDT ? [facility] ? Test Date: ?2020-12-24 Pat Name: ? AUSTIN SQUIRES ? Department: ?? Leonard 6 ? Room: ? B688 Gender: ? Female ? Printer Maintainer: ?? [id number] : ?1975 ? Requested By: ELBA LEBLANC Order Number: [id number] ? Reading : ?? LORI GRAVES MD ? Measurements Intervals ?Waka ? Rate: ? 80 ? P: ?54 NE: ? 189 ?QRS: ?16 QRSD: ? 81 ? T: ?5 QT: ? 437 ? QTc: ?506 ? Interpretive Statements SINUS RHYTHM MODERATE T-WAVE ABNORMALITY, CONSIDER ISCHEMIA PROLONGED QTC I reviewed the tracing and have either agreed or edited the findings in this report. Electronically Signed On 12-26-2020 12:17:58 EDT by LORI GRAVES MD. Procedure Note Lori Gravse MD - 12/26/2020 [facility] Test Date: 2020-12-24 Pat Name: AUSTIN SQUIRES Department: Aisha Delgadillo Room: [facility] Gender: Female Printer Maintainer: [id number] : 1975 Requested By: ELBA LEBLANC Order Number: [id number] Reading MD: LORI GRAVES MD Measurements Intervals Waka Rate: 80 P: 54 NE: 189 QRS: 16 QRSD: 81 T: 5 QT: 437 QTc: 506 Interpretive Statements SINUS RHYTHM MODERATE T-WAVE ABNORMALITY, CONSIDER ISCHEMIA PROLONGED QTC I reviewed the tracing and have either agreed or edited the findings inthis report. Electronically Signed On 12-26-2020 12:17:58 EDT by LORI BUSTAMANTE. Juan Nelson MD CARDIAC ECG ORDER CHAO [facility] * SURGICAL PATHOLOGY (12/24/2020 9:20 EDT) Note to Patient A healthcare provider will be contacting you to answer any questions you may have about these results, and discuss management options, if applicable. Before this can occur, your pathology results need to be compared with your breast imaging and clinical findings, a process that can take 1-3 business days. 12/30/2020 11:46 EDT [facility] Final Diagnosis Note to Patient: [...] (following therapy) Tumor Location: Upper inner quadrant [employer] Combined Histologic Scores: Tubular differentiation: Score 3 [...] response. Lymph nodes: 0/2 (positive/total number examined) Harrison nodes: 2 (examined and included in total) 0 nodes with macrometastases 0 nodes with micrometastases 0 nodes with isolated tumor cell clusters only ER/ NE: ER negative; NE negative ([id number]) Her2/dayami: Negative (1+ by immunohistochemist ry) ([id number]) FINAL PATHOLOGIC DIAGNOSIS: A. BREAST, RIGHT, PROPHYLACTIC [...] D. LYMPH NOTE, SENTINEL, LEFT AXILLA, COUNT [id number], EXCISION BIOPSY: - One lymph node negative [...] Prior biopsy site identified. 12/30/2020 11:46 EDT [facility] Diagnosis Comment This patient was [...] as AJCC: ypT2 ypN0 pNR. 12/30/2020 11:46 [facility] Attestation There was significant resident/fellow involvement in the diagnostic evaluation of this case. By the signature below, the attending physician certifies that they have personally conducted a gross and/or microscopic examination of the described specimens and rendered or confirmed the above diagnosis. 12/30/2020 11:46 [facility] at 1146 Clinical History Malignant neoplasm of left breast in female, estrogen receptor negative, unspecified site of breast ([facility]) 12/30/2020 11:46 [facility] Gross Description A. [...] No definitive nodules or lesions are present. Electrician Helper Powerhouse sections are submitted as follows: INK DUDLEY Black-deep Blue-superficial BLOCK DUDLEY A1-nipple, perpendicular A2-lactiferous sinus, en face A3-A4-upper outer quadrant A5-A6 lower outer quadrant A7-A8-lower inner quadrant I0-A22-evrsr inner quadrant Time removed from patient: 12/24/2020 [...] of hemorrhage, necrosis, or residual tumor. Random canvas products sales representative sections are submitted in B1-B8. C. Received fresh labeled with proper patient identification (initials H, R) and left axillary sentinel lymph node #1 count 5126 is a single lymph node (1.5 x 0.8 x 0.5 cm). The specimen is sectioned and submitted entirely in C1-C2. D. Received fresh labeled with proper patient identification (initials H, R) and left axillary sentinel lymph node #[id number] is a single lymph node (1.1 x [...] with a minimal amount of fibrous tissue. Electrician Helper Powerhouse sections are submitted as follows: INK DUDLEY Black-deep Blue-superficial BLOCK DUDLEY E1-nipple, perpendicular E2-lactiferous sinus, en face E3-nearest deep margin E4-nearest superficial margin, including mass R5-C81-affjlu mass R85-L11-dqjue inner quadrant E13-E14 lower inner quadrant T13-B15-rqqdu outer quadrant J02-M27-xeqvp outer quadrant Time removed from patient: 12/24/2020 1126 hrs. Time in formalin: 12/24/2020 1337 hrs. Time out of formalin: 19:00 hours 12/25/20 SOCORRO Fritz (ASCP)12/25/20 11:58 12/30/2020 11:46 EDT [facility] Resident/Chris w: Dilia Mcmillan MD 12/30/2020 11:46 EDT [facility] Performing Lab [facility] 11:46 EDT [facility] Scanned Images 12/30/2020 11:46 EDT [facility] Tissue ENTIRE RIGHT BREAST / [...] EDT Maeve Morales DO PATHOLOGY ORDERABLE S [facility] [address] [place] [address] * TEST, URINE (12/24/2020 6:13 EDT) Test, Urine Negative Negative 12/24/2020 8:43 EDT [facility] Comment:False negative resul ts may occur in women who are beyond 5-8 weeks gestation. Diagnosis of should be based on a correlation of test results with typical clinical signs and symptoms. Urine URINE / Unknown Urine Collect / Unknown 12/24/2020 6:13 EDT 12/24/2020 8:37 EDT Katy Sinclair MD URINALYSIS ORDER CHAO [facility] [address] [place] [address] * ECG REPORT - SCANNED (12/19/2020 11:49 EDT) 12/19/2020 11:4 9 EDT Scan 2 Fly Tier PROCEDURE/MINOR KHURRAM GICAL ORDERABLES documented in this encounter Visit Diagnoses Diagnosis Breast cancer in female ([facility])- Primary Malignant neoplasm of left breast in female, estrogen receptor negative, unspecified site of breast ([facility]) documented in this encounter Admitting Diagnoses Diagnosis Breast cancer in female ([facility]) documented in this encounter Administered Medications Inactive Administered Medications - up to 3 most recent administrations Medication Order MAR Action Action Date Dose Rate Site acetaminophen (TYLENOL) tablet 1,000 mg 1,000 mg, oral, EVERY 6 HOURS, First dose on Tue12/24/20 at 1930, Until Discontinued, Routine Given 12/25/2020 12:32 EDT 1,000 mg Given 12/25/2020 7:45 EDT 1,000 mg Given 12/25/2020 0:47 EDT 1,000 mg bupivacaine-EPINEPHrine (PF) 0.5 %-1:200,000 injection As needed, Starting on Tue12/24/20 at 1357, Until Tue12/24/20 at 1357, Routine, Intraprocedure Given 12/24/2020 13:57 EDT 30 mL ceFAZolin in dextrose (iso-os) piggyback 2 g/100 mL 2,000 mg, intravenous, Administer over 30 Minutes, EVERY 8 HOURS, 7 doses, First dose on Tue12/24/20 at 1600, Last dose on Tue12/26/20 at 1600, Type of Therapy: Prophylaxis, Suspected Indication (Select all that apply): Surgical prophylaxis, Routine Given 12/25/2020 7:48 EDT 2,00 0 mg Given 12/25/2020 0:48 EDT 2,000 mg [...] Rate Documented 12/24/2020 14:31 EDT 75 mL/hr lidocaine 1 % 30 mL, bupivacaine (PF) (MARCAINE) 0.25 % (2.5 mg/mL) 30 mL As needed, Starting on Tue12/24/20 at 0800, Until Tue12/24/20 at 1043, Routine, Intraprocedure Given 12/24/2020 8:00 EDT 20 mL pantoprazole (PROTONIX) tablet 40 mg 40 mg, oral, DAILY, First dose on Klaudia 12/25/20 at 0900, Until Discontinued Given 12/25/2020 8:00 EDT 40 mg povidone-iodine (BETADINE) 10 % external solution As needed, Starting on Tue12/24/20 at 1214, Until Tue12/24/20 at 1215, Intraprocedure Given 12/24/2020 12:14 EDT 60 mL sodium chloride 0.9 % irrigation As needed, Starting on Tue12/24/20 at 1017, Until Tue12/24/20 at 1043, Routine, Intraprocedure Given 12/24/2020 10:17 EDT 1,000 mL sodium chloride 0.9 % irrigation As needed, Starting on Tue12/24/20 at 1214, Until Tue12/24/20 at 1215, Routine, Intraprocedure Given 12/24/2020 12:14 EDT 1,000 mL sodium chloride 0.9 % irrigation As needed, Starting on Tue12/24/20 at 1216, Until Tue12/24/20 at 1217, Routine, Intraprocedure Given 12/24/2020 12:16 EDT 1,000 mL documented in this encounter [...] RN) 0047 (Given - Provider: Lubna Mcnally RN)0745 (Given - Provider: Valerie Morgan)1232 (Given [...] Klaudia 12/25/20 at 0900, Until Discontinued, Routine 0800 (Given - Provid er: Valerie Morgan) pantoprazole (PROTONIX) tablet 40 mg 40 mg, oral, DAILY, First dose on Klaudia 12/25/20 at 0900, Until Discontinued 0800 (Given - [...] (only) 1431 (Rate Documented - Provider: Thelma Tadeo RN)1611 (Completed - Provider: Thelma Tadeo RN) PRN [...] RN) 0047 (Given - Provider: Lubna Mcnally, RADHA)0747 (Given - Provider: Valerie Morgan)[phone] (Given - [...] to prep skin before insertion of tissue corporate sales trainer) sodium chloride 0.9 % irrigation (CANCELED) As [...] 0.1 mg/mL syringe 0.5 mg 1 021 ceFAZolin (ANCEF) syringe 2 g 1 12/24/2020 [...] % ) injection 2 mg 1 12/24/2020 metoclopramide (REGLAN) injection 10 mg 1 0 12/24/2020 naloxone (NARCAN) injection 0.2 mg 1 2020 ondansetron (PF) (ZOFRAN) injection 4 mg 3 12/24/2020 Diet Count Last Ordered Date First Orde red Date DISCHARGE DIET 1 12/25/2020 Nursing Count Last Ordered Date First Orde red Date ACTIVITY INSTRUCTIONS 1 12/25/2020 BATHING INSTRUCTIONS 1 12/25/2020 WOUND CARE INSTRUCTIONS 2 12/25/2020 CONTRAINDICATION TO ANTICOAG ULATION THERAPY 1 12/24/2020 Discharge Count Last Ordered Date First Orde red Date DISCHARGE PATIENT 1 12/25/2020 documented in this encounter Care Teams Resident Services Coordinator Relationship Specialty Start Date End Date Batsheva Lira FNP [address] [phone] PCP - General 02/19/20 07/21/22 documented as of this encounter
--- OUTSIDE RECORDS SUMMARY | 2023-12-10 17:42 | XMS_ITS | Encounter Summary ---
Author Organization [facility] Address [address] [place] [address] Care Team Providers Care Railway Signal Operator Name Role Phone Batsheva Lira JOHN Primary Care Provider [phone] Reason for Visit * Reason Onset Date Comments Appointment Related 12/25/2020 Encounter Details Date Type Department Care Team (Late st Contact Info) Description 12/25/2020 Telephone [facility] Surgical Oncology - [address] [phone] Maeve Morales, DO 111 [facility], [facility] 2 [place] [phone] Appointment Related Social History Tobacco Use Types [...] * Telephone Encounter - Yulissa Pedroza - 12/25/2020 0920 EDT LVM for the patient, letting her know that we will need to reschedule her post- op with Dr. Morales on 01/06/2021 to 01/07/2021. While on the phone with the patient we rescheduled this appt to: 01/07/2021@ 3:20pm Yulissa Pedroza 12/25/2020 9:22 documented in this encounter Plan of Treatment Upcoming Encounters Date Type Department Care Team (Late st Contact Info) Description 01/31/2024 13:40 EDT Office Visit [facility] Surgical Oncology - [address] [phone] Maeve Morales, DO 111 [facility], [facility], Level 2 [place] [phone] documented as of this encounter Visit Diagnoses Not on filedocumented in this encounter Care Teams Railway Signal Operator Relationship Specialty Start Date End Date Batsheva Lira FNP [address] [phone] PCP - General 02/19/20 07/21/22 documented as of this encounter
--- OUTSIDE RECORDS SUMMARY | 2023-12-10 17:42 | XMS_ITS | Encounter Summary ---
Author Organization [facility] Address [address] [place] [address] Care Team Providers Care Fiberglass Roving Winder Name Role Phone Batsheva Lira JOHN Primary Care Provider [phone] Reason for Visit * Reason Onset Date Comments Appointment Related 11/25/2020 PT evaluate/ treat Dx: BRCA Encounter Details Date Type Department Care Team (Late st Contact Info) Description 12/22/2020 Telephone [facility] Rehabilitation Therapy [address] [address] Betsey Miller, RN [address] [place] [address] Appointment Related (PT evaluate/treat Dx: BRCA) Social History Tobacco Use Types Packs/Day Years [...] encounter Miscellaneous Notes * Telephone Encounter - Betsey Miller RN - 12/22/2020 1125 EDT 12/22/2020: RPC from Ms Squires, who is scheduled for BTM (12/24/2020). Scheduled lymphedema evaluation, 01/26/21 (0930) for evaluation / education re: risk of lymphedema status-post bilateral total mastectomy and lymph node(s) dissection. She was scheduled, 12/10/20, but missed that appointment dueto, it's hard to keep track of so many appointments. Confirmed Telephone (Insurance) Intake information (12/03/2020) Medicaid (no home health or outpatient therapy, 2020) She understands, as she currently has no edema, that this appointment is for education regarding potential for lymphedema and measures she can take to care for herself, her skin, and possible edema. documented in this encounter Plan of Treatment Upcoming Encounters Date Type Department Care Team (Late st Contact Info) Description 01/31/2024 13:40 EDT Office Visit [facility] Surgical Oncology - [address] [address] Maeve Morales, DO 111 [facility], [facility], Level [address] [place] [phone] documented as of this encounter Visit Diagnoses Not on filedocumented in this encounter Care Teams Fiberglass Roving Winder Relationship Specialty Start Date End Date Batsheva Lira FNP [address] [phone] PCP - General 02/19/20 07/21/22 documented as of this encounter
--- OUTSIDE RECORDS SUMMARY | 2023-12-10 17:42 | XMS_ITS | Encounter Summary ---
Author Organization [facility] Address [address] [place] [address] Care Team Providers Care Shoe Lining Fitter Name Role Phone Batsheva Lira JOHN Primary Care Provider [phone] Encounter Details Date Type Department Care Team (Latest Contact Info) Description 01/12/2021 Travel Social History Tobacco Use Types Packs/Day [...] Info) Description 01/31/2024 13:40 EDT Office Visit [facility] Surgical Oncology - [address] [phone] Maeve Morales, 111 [facility], [facility], Level 2 [place] [phone] documented as of this encounter Visit Diagnoses Not on filedocumented in this encounter Care Teams Shoe Lining Fitter Relationship Specialty Start Date End Date Batsheva Lira FNP [address] [phone] PCP - General 02/19/20 07/21/22 documented as of this encounter
--- OUTSIDE RECORDS SUMMARY | 2023-12-10 17:42 | XMS_ITS | Encounter Summary ---
Author Organization [facility] Address [address] [place] [address] Care Team Providers Care Cafeteria Cashier Name Role Phone Batsheva Lira JOHN Primary Care Provider [phone] Reason for Visit * Reason Comments Post-OP Follow Up bilateral TE 12/24/20 Encounter Details Date Type Department Care Team (Latest Contact Info) Description 01/01/2021 10:00 EDT Post-op Visit [facility] Plastic, Reconstructive & Cosmetic [place] [address], [address] [place] [address] Oksana Wilkins PA-C [address] [facility] [address] [place] [address] Malignant neoplasm of upper-inner quadrant of left [...] Progress Notes * Oksana Wilkins PA-C - 01/01/2021 1000 EDT SUBJECTIVE: Austin Squires returns in follow up from bilateral tissue multi sensor operator reconstruction with allograft of breasts after mastectomy on 12/24/2020. She is doing well. [facility] (Dilauded was d/c by PT several days ago). Antibiotics are taken as prescribed.Surgical dressing was kept in place since date of surgery. Drain care is performed as advised. Review of Systems Constitutional: Negative for chills and fever. Respiratory: Negative for cough and shortness of breath. Gastrointestinal: Negative for abdominal pain. Skin: Negative for itching and rash. Endo/Heme/Allergies: Does not bruise/bleed easily. OBJECTIVE: On examination, she is in no distress. Surgical tapes are removed. Her incisions are healing well, without sign of drainage or dehiscence. Skin devoid of rash, erythema and ecchymoses. Shecontinues to have drains x4 in place with a moderate amount of serosanguineous fluid present (drains 1 & 3 appropriate for removal) . IMPRESSION: Doing well; POD #8. PLAN: Today, Patient & I discussed post operative limitations and instructions. Patient advisedto observe these conditions for 6 weeks. Drains removed without incident; Bacitracin and Band-Aid secured over drain sites. Supplies for care were provided. Surgical incisions were re-taped. Pt to continue ABX while drains are in place. Follow up next week for drain removal; Pt will call to cancel appointment if drain criteria is not met. Oksana Wilkins PA-C 01/01/2021 11:33 documented in this encounter Plan of Treatment Upcoming Encounters Date Type Department Care Team (Late st Contact Info) Description 01/31/2024 13:40 EDT Office Visit [facility] Surgical Oncology - [address] [phone] Maeve Morales DO 111 [facility], Level 2 [place] [phone] documented as of this encounter Visit Diagnoses Diagnosis Malignant 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, estrogen receptor negative (HCC-CMS)- Primary documented in this encounter Care Teams Cafeteria Cashier Relationship Specialty Start Date End Date Batsheva Lira FNP [address] [phone] PCP - General 02/19/20 07/21/22 documented as of this encounter
--- OUTSIDE RECORDS SUMMARY | 2023-12-10 17:42 | XMS_ITS | Encounter Summary ---
Author Organization [facility] Address [address] [place] [address] Care Team Providers Care Automatic Vulcanizing Operator Name Role Phone Batsheva Lira JOHN Primary Care Provider [phone] Reason for Referral * Radiology Services (Routine) - Authorization Not Required Specialty Diagnoses / Procedures Referred By Jen gonzáles Referred To Contact Nuclear Medicine Diagnoses Malignant neoplasm of left breast in female, estrogen receptor negative, unspecified site of breast ([facility]) Procedures NM INJECTION ONLY SENTINEL NODE BREAST Maeve Morales DO [address] [place] [phone] Referral ID Status Reason Start Date Expiration Date Visits Requested Visits Authorized [id number] Authorization Not Required 12/19/2020 1 1 Reason for Visit * Reason Onset Date Comments Pre-procedure 12/18/2020 Nuclear medicine injection orders Encounter Details Date Type Department Care Team (Late st Contact Info) Description 12/18/2020 Orders Only [facility] Surgical Oncology - [address] [phone] Maeve Morales DO [address] [place] [phone] Malignant neoplasm of left breast in female, estrogen receptor negative, unspecified site of breast (HCC-CMS) (Primary Dx) Social History Tobacco Use [...] Description 01/31/2024 13:40 EDT Office Visit [facility] Surgical Oncology - [address] [phone] Maeve Morales, DO 111 [facility], Level [address] [place] [address] documented as of this encounter Results * NM INJECTION ONLY [...] negative, unspecified site of breast (HCC-CMS)- Primary Malignant neoplasm of left breast in female, estrogen receptor negative, unspecified site of breast (HCC-CMS) documented in this encounter Care Teams Automatic Vulcanizing Operator Relationship Specialty Start Date End Date Batsheva Lira FNP [address] [phone] PCP - General 02/19/20 07/21/22 documented as of this encounter
--- OUTSIDE RECORDS SUMMARY | 2023-12-10 17:42 | XMS_ITS | Encounter Summary ---
Author Organization [facility] Address [address] [place] [address] Care Team Providers Care Sales Representative Raw Fibers Name Role Phone Batsheva Lira JOHN Primary Care Provider [phone] Reason for Visit * Reason Onset Date Comments Follow-up 12/29/2020 Encounter Details Date Type Department Care Team (Late st Contact Info) Description 12/29/2020 Telephone [facility] Hematology & Oncology - [facility] [address] [place], [place] [phone] Kenia Cline, RN Follow-up Social History Tobacco Use Types [...] encounter Miscellaneous Notes * Telephone Encounter - Kenia Cline RN - 12/29/2020 6537 EDT Post-operative follow up phone call was made to the patient. Date of Surgery: 12/25/20 Surgery: bilateral total mastectomies and left SLNB with reconstruction Surgeon: dual case with Dr. Morales and Dr. Carcamo Pain: some irritation and burning from stitches holding drains in - patient has discussed with plastics; otherwise pain is bearable per report. Problems/ Concerns: none Patient is aware of upcoming appointments: -POV with plastics on 01/01 -Follow up with Dr. Conde on 01/06 -POV with Dr. Morales on 01/07 --> patient states this date and time do not work for her. Product Development Scientist has sent a message to Kerry Lockett requesting she reach out to patient directly to reschedule. -PT on 01/26/21 Patient is aware that pathology results take 7-10 days and will be called with these results once available. They will call with additional questions or concerns that might arise. documented in this encounter Plan of Treatment Upcoming Encounters Date Type Department Care Team (Late st Contact Info) Description 01/31/2024 13:40 EDT Office Visit [facility] Surgical Oncology - [address] [address] Maeve Morales, DO 111 [facility], Level [address] [place] [phone] documented as of this encounter Visit Diagnoses Not on filedocumented in this encounter Care Teams Sales Representative Raw Fibers Relationship Specialty Start Date End Date Batsheva Lira FNP [address] [phone] PCP - General 02/19/20 07/21/22 documented as of this encounter
--- OUTSIDE RECORDS SUMMARY | 2023-12-10 17:43 | XMS_ITS | Encounter Summary ---
Author Organization [facility] Address [address] [place] [address] Care Team Providers Care Wet And Dry Sugar Bin Operator Name Role Phone Batsheva Lira JOHN Primary Care Provider [phone] Reason for Visit * Reason Onset Date Comments Appointment Related 12/12/2020 Encounter Details Date Type Department Care Team (Late st Contact Info) Description 12/12/2020 Telephone [facility] Rehabilitation Therapy - [facility] [address] [place] [address] Physical, Therapy Appointment Related Social [...] have Coronavirus / COVID-19? No / Unsure 12/04/2020 9:59 EDT documented as of this encounter Functional [...] encounter Miscellaneous Notes * Telephone Encounter - Regina Paniagua - 12/12/2020 1229 EDT The patient is scheduled for a [facility] Zoom evaluation with Dr. Emelina Grijalva on Wednesday, December 16, 2020 at 10:00 AM. Zoom invitation and handouts emailed. documented in this encounter Plan of Treatment Upcoming Encounters Date Type Department Care Team (Late st Contact Info) Description 01/31/2024 13:40 EDT Office Visit [facility] Surgical Oncology - [address] [phone] Maeve Morales, DO 111 [facility], Level 2 [place] [address] documented as of this encounter Visit Diagnoses Not on filedocumented in this encounter Care Teams Wet And Dry Sugar Bin Operator Relationship Specialty Start Date End Date Batsheva Lira FNP [address] [phone] PCP - General 02/19/20 07/21/22 documented as of this encounter
--- OUTSIDE RECORDS SUMMARY | 2023-12-10 17:43 | XMS_ITS | Encounter Summary ---
Author Organization [facility] Address [address] [place] [address] Care Team Providers Care Tipple Operator Name Role Phone Batsheva Lira JOHN Primary Care Provider [phone] Encounter Details Date Type Department Care Team (Latest Contact Info) Description 11/21/2020 Travel Social History Tobacco Use Types Packs/Day [...] have Coronavirus / COVID-19? No / Unsure 11/21/2020 20:13 EDT documented as of this encounter Functional Status Functional Status Response Date of Assess ment Because of a physical, menta l, or emotional condition, does this person have difficulty doing errands alone such as visiting a doctor's office or shopping? No 07/15/2020 Cognitive Status Response Date of Assessm ent Because of a physical, menta l, or emotional condition, does this person have serious difficulty concentrating, remembering, or making decisions? No 07/15/2020 documented as of this encounter Plan of Treatment Upcoming Encounters Date Type Department Care Team (Late st Contact Info) Description 01/31/2024 13:40 EDT Office Visit [facility] Surgical Oncology - [address] [address] Maeve Morales, DO 111 [facility], Level [address] [place] [phone] documented as of this encounter Visit Diagnoses Not on filedocumented in this encounter Care Teams Tipple Operator Relationship Specialty Start Date End Date Batsheva Lira FNP [address] [phone] PCP - General 02/19/20 07/21/22 documented as of this encounter
--- OUTSIDE RECORDS SUMMARY | 2023-12-10 17:43 | XMS_ITS | Encounter Summary ---
Author Organization [facility] Address [address] [place] [address] Care Team Providers Care Putty Worker Name Role Phone Batsheva Lira JOHN Primary Care Provider [phone] Encounter Details Date Type Department Care Team (Latest Contact Info) Description 10/23/2020 Travel Social History Tobacco Use Types Packs/Day [...] have Coronavirus / COVID-19? No / Unsure 10/23/2020 9:00 EDT documented as of this encounter Functional [...] Info) Description 01/31/2024 13:40 EDT Office Visit [facility] Surgical Oncology - [address] [phone] Maeve Morales, DO 111 [facility], Level [address] [place] [phone] documented as of this encounter Visit Diagnoses Not on filedocumented in this encounter Care Teams Putty Worker Relationship Specialty Start Date End Date Batsheva Lira FNP [address] [phone] PCP - General 02/19/20 07/21/22 documented as of this encounter
--- OUTSIDE RECORDS SUMMARY | 2023-12-10 17:43 | XMS_ITS | Encounter Summary ---
Author Organization [facility] Address [address] [place] [address] Care Team Providers Care Stick Welder Name Role Phone Batsheva Lira JOHN Primary Care Provider [phone] Reason for Visit * Reason Onset Date Comments Pharmacy 10/08/2020 [facility] [employer] Encounter Details Date Type Department Care Team (Late st Contact Info) Description 10/08/2020 Telephone [facility] Hematology & On[facility] - [facility] [address] [place], [place] [address] [place] [address] [place] [phone] Pharmacy (Prilose) Social History Tobacco Use Types Packs/Day Years [...] have Coronavirus / COVID-19? No / Unsure 10/08/2020 10:28 EDT documented as of this encounter Functional [...] No 07/15/2020 documented as of this encounter Ordered Prescriptions Prescription Sig Dispensed Refills Start Date End Da te omeprazole (PRILOSEC) 40 mg capsule Take 1 Cap by mouth at bedtime. 30 Cap 2 10/08/2020 12/30/2020 documented in this encounter Miscellaneous Notes * Telephone Encounter - Dominique John - 10/08/2020 1045 EDT [facility] pharmacy calling regarding prilosec prescription. He states prescription sent over - 20mg - 2x/day is not approved by insurance. Please send new prescription for 40mg - 1x/day Any questions, feel free to call. documented in this encounter Plan of Treatment Upcoming Encounters Date Type Department Care Team (Late st Contact Info) Description 01/31/2024 13:40 EDT Office Visit [facility] Surgical Oncology - [address] [address] Maeve Morales, [address] [place] [address], Level 2 [place] [phone] documented as of this encounter Visit Diagnoses Not on filedocumented in this encounter Discontinued Medications Medication Sig Discontinue Reason Start Date End Da te omeprazole (PRILOSEC) 20 mg capsule Take 1 Cap by mouth 2 times daily. 10/07/2020 10/08/2020 documented as of this encounter Care Teams Stick Welder Relationship Specialty Start Date End Date Batsheva Lira FNP [address] [phone] PCP - General 02/19/20 07/21/22 documented as of this encounter
--- OUTSIDE RECORDS SUMMARY | 2023-12-10 17:43 | XMS_ITS | Encounter Summary ---
Author Organization [facility] Address [address] [place] [address] Care Team Providers Care Liner Worker Name Role Phone Batsheva Lira JOHN Primary Care Provider [phone] Reason for Visit * Reason Onset Date Comments Fever 11/21/2020 Encounter Details Date Type Department Care Team (Late st Contact Info) Description 11/21/2020 Telephone [facility] Hematology & Oncology - [address] [phone] Yeison Parada MD [address] [place] [address], Level 2 [place] [address] Fever Social History Tobacco Use Types Packs/Day Years [...] No 07/15/2020 documented as of this encounter Miscellaneous Notes * Telephone Encounter - Yeison Parada MD - 11/21/20201926 EDT Austin called this evening to discuss her temperature of 101.5 F. 45 year old female patient with triple negative breast cancer on neoadjuvant chemotherapy. She received AC (Adriamycin (doxorubicin) and cyclophosphamide) on 11/13/20 with neulasta support. She experienced fatigue and bone pains today. Checked her temp and it was 101.5 F. Has a cat scratch on her foot from 3 days ago with some redness, but this is improving. Mild headaches. No visual symptoms, cough, rhinorrhea, chest pain, dyspnea or palpitations. Has some diarrhea, but was recently taking laxatives so unclear if this is related to laxative use. Port site looks ok to her, no redness or tenderness. No urinary symptoms reported. Given her recent cytotoxic chemotherapy, I advised Austin to go to the ED immediately for a neutropenic fever evaluation. She understood, and expects to be there in 30 min or so. I've reached out to the ED for a t call note as well. Yeison Parada Hematology/Oncology Fellow documented in this encounter Plan of Treatment Upcoming Encounters Date Type Department Care Team (Late st Contact Info) Description 01/31/2024 13:40 EDT Office Visit [facility] [place] [address] Maeve Morales, DO 111 [facility], Level 2 [place] [phone] documented as of this encounter Visit Diagnoses Not on filedocumented in this encounter Care Teams Liner Worker Relationship Specialty Start Date End Date Batsheva Lira FNP [address] [phone] PCP - General 02/19/20 07/21/22 documented as of this encounter
--- OUTSIDE RECORDS SUMMARY | 2023-12-10 17:43 | XMS_ITS | Encounter Summary ---
Author Organization [facility] Address [address] [place] [address] Care Team Providers Care Armature Coil Winder Name Role Phone Batsheva Lira JOHN Primary Care Provider Encounter Details Date Type Department Care Team (Latest Contact Info) Description 11/25/2020 Travel Social History Tobacco Use Types Packs/Day [...] have Coronavirus / COVID-19? No / Unsure 11/25/2020 10:08 EDT documented as of this encounter Functional [...] Info) Description 01/31/2024 13:40 EDT Office Visit [facility] Surgical Oncology - [address] [address] Maeve Morales, 111 [facility], [facility], Level [address] [place] [phone] documented as of this encounter Visit Diagnoses Not on filedocumented in this encounter Care Teams Armature Coil Winder Relationship Specialty Start Date End Date Batsheva Lira FNP [address] [phone] PCP - General 02/19/20 07/21/22 documented as of this encounter
--- OUTSIDE RECORDS SUMMARY | 2023-12-10 17:43 | XMS_ITS | Encounter Summary ---
Author Organization [facility] Address [address] [place] [address] Care Team Providers Care Human Resources Services Specialist Name Role Phone Batsheva Lira JOHN Primary Care Provider [phone] Encounter Details Date Type Department Care Team (Late st Contact Info) Description 11/25/2020 10:15 EDT Ancillary Procedure [facility] Surgical Oncology - [address] [place] [address] [place], [place] [id number] Social History Tobacco Use Types Packs/Day Years [...] 01/31/2024 13:40 EDT Office Visit [facility] Surgical Oncology - [address] [id number] Maeve Morales DO [address] [place] [address], [address] [place] [phone] documented as of this encounter Procedures Procedure Name Priority Date/Time Associated Diagnosis Comments [facility] BRE[facility] ONLY Routine 11/25/2020 11:40 EDT documented in this encounter Results * [facility] BREAST BREAST [facility] ONLY (11/25/2020 11:40 EDT) Narrative [facility] - 11/25/2020 11:40 EDT This is a non-reportable exam. Maeve Morales DO [facility] POC ORDERABL ES [facility] PO[facility]ARE documented in this encounter Visit Diagnoses Not on filedocumented in this encounter Care Teams Human Resources Services Specialist Relationship Specialty Start Date End Date Batsheva Lira FNP [address] [phone] PCP - General 02/19/20 07/21/22 documented as of this encounter
--- OUTSIDE RECORDS SUMMARY | 2023-12-10 17:43 | XMS_ITS | Encounter Summary ---
Author Organization [facility] Address [address] [place] [address] Care Team Providers Care Lasting Machine Operator Hand Method Name Role Phone Batsheva Lira JOHN Primary Care Provider Reason for Visit * Reason Onset Date Comments Critical Value 10/23/2020 Encounter Details Date Type Department Care Team (Late st Contact Info) Description 10/23/2020 Telephone [facility] Hematology & Oncology - [facility] [address] [place] [address] [place] [address] [place] [phone] Critical Value Social History Tobacco Use Types Packs/Day Years [...] Telephone Encounter - Lolly Antunez RN - 10/23/2020 1114 EDT Sent pt a note to advise her to neutropenic precautions. She is at her dinorah, so this is not unexpected. * Telephone Encounter - Tracy Coleman - 10/23/2020 1102 EDT Non Clinical Staff notified with Critical Results Ordering Provider: ELAINE Date and Time Test was Performed: 10/23/20@9:10AM Results: ANC 0.13 Result Read Back and Verified: yes Nursing/Provider Notified:YES Nursing/Provider Name: IVON Date: 10/23/20 Time: 11:03 AM documented in this encounter Plan of Treatment Upcoming Encounters Date Type Department Care Team (Late st Contact Info) Description 01/31/2024 13:40 EDT Office Visit [facility] Surgical Oncology - [address] [id number] Maeve Morales, [address] [place] [address], [facility], [address] [place] [phone] documented as of this encounter Visit Diagnoses Not on filedocumented in this encounter Care Teams Lasting Machine Operator Hand Method Relationship Specialty Start Date End Date Batsheva Lira FNP [address] [place], [place] [phone] PCP - General 02/19/20 07/21/22 documented as of this encounter
--- OUTSIDE RECORDS SUMMARY | 2023-12-10 17:43 | XMS_ITS | Encounter Summary ---
Author Organization [facility] Address [address] [place] [address] Care Team Providers Care Dry Pan Feeder Name Role Phone Batsheva Lira JOHN Primary Care Provider [phone] Encounter Details Date Type Department Care Team (Latest Contact Info) Description 10/08/2020 Travel Social History Tobacco Use Types Packs/Day [...] 01/31/2024 13:40 EDT Office Visit [facility] Surgical Oncology - [address] [id number] Maeve Morales, DO [address] [facility], [address] [place] [phone] documented as of this encounter Visit Diagnoses Not on filedocumented in this encounter Care Teams Dry Pan Feeder Relationship Specialty Start Date End Date Batsheva Lira FNP [address] [phone] PCP - General 02/19/20 07/21/22 documented as of this encounter
--- OUTSIDE RECORDS SUMMARY | 2023-12-10 17:43 | XMS_ITS | Encounter Summary ---
Author Organization [facility] Address [address] [place] [address] Care Team Providers Care Blower Feeder Dyed Raw Stock Name Role Phone Batsheva Lira JOHN Primary Care Provider [phone] Reason for Visit * Reason Comments New Patient Visit Breast Cancer * PT/OT/ST (Routine) - New Request Specialty Diagnoses / Procedures Referred By Jen gonzáles Referred To Contact Rehab Therapies Diagnoses Malignant 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, estrogen receptor negative ([facility]) [place] [address] [place] [phone] [facility] [address] [place] [address] Referral ID Status Reason Start Date Expiration Date Visits Requested Visits Authorized [id number] New Request Specialty Services Required 12/12/2020 1 1 Encounter Details Date Type Department Care Team (Late st Contact Info) Description 12/16/2020 10:00 EDT Office Visit [facility] Center Oncology Rehabilitation - [address] [address] Emelina Grijalva MD [address] [facility], [facility] [address] [place] [phone] Malignant neoplasm of female breast, unspecified estrogen receptor status, unspecified laterality, unspecified site of breast (HCC-CMS) (Primary Dx); Other fatigue Social History Tobacco Use Types Packs/Day Years [...] No 11/21/2020 documented as of this encounter Progress Notes * Emelina Grijalva MD - 12/16/2020 1000 EDT ONCOLOGY REHABILITATION REMOTE EVALUATION The concept of ???Telemedicine?? has been described to the patient.? Patient has been informed of the anticipated benefits and possible risks.? Patient understands the information provided regardingtelemedicine, has had the opportunity to ask questions about this information, and all questions have been answered to patient???s satisfaction. Patient consents for the use of telemedicine in his/her medical care and authorizes the transmission of any relevant medical information to providers and their staff involved in patient???s medical or mental health care. 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 -??Staging evaluation did reveal a prominent L IM lymphnode but otherwise negative. -Given her triple negative histology??she began??starting taxol/carboplatinum as part of the SIKOV Regimen??on July 22, 2020-her last chemotherapy visit was November 27, 2020 -She is scheduled for surgery with Dr. Morales and Dr. Bolivar HISTORY OF PRESENT ILLNESS Austin Squires is a very pleasant 45 y.o. female who presents with breast cancer. HPI Patient is interested in participating in steps to wellness to improve her endurance and strength. Prior to her breast cancer she worked at [employer] and was quite physically fit. 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 Since COVID-19 and her breast cancer she just does housework and take care of her daughter. PROBLEM LIST Patient Active Problem List Diagnosis ??? 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, estrogen receptor negative ([facility]) MEDICAL HISTORY Patient has a past medical history of Exercise involving housework, Exercise involving walking, Head trauma, History of general anesthesia, History of kidney stones, Poor dentition, and Urgency of urination. SURGICAL HISTORY Patient has a past surgical history that includes Cholecystectomy and other surgical history. MEDICATIONS Patient has a current medication list which includes the following prescription(s): amlodipine, escitalopram oxalate, intra-uterine device (iud), lidocaine-prilocaine, olanzapine, omeprazole, ondansetron, prochlorperazine, and triamcinolone acetonide. ALLERGIES Patient is allergic to oxycodone. FAMILY HISTORY Patient's family history includes Lung Cancer in her mother. SOCIAL HISTORY Patient reports that she quit smoking about 2 months ago. Her smoking use included cigarettes. She has a 15.00 pack-year smoking history. She has never used smokeless tobacco. She reports current alcohol use. She reports that she does not use drugs. STAGING Cancer Staging 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, estrogen receptor negative ([facility]) Staging form: Breast, AJCC 8th Edition - Clinical: Stage IIB (cT2, cN0, cM0, G3, ER-, OK-, HER2-) - Signed by Maeve Morales DO on 07/15/2020 Patient expresses the following rehabilitation goals: Patient is a single mother who has a 9-year-old daughter she would like to be able to do more work at home without getting so fatigued Patient was sent the Screening Tool for Distress in advance to review. They report their score is 2out of 10 This is based on a scale of 0 being no distress and 10 being extreme distress. They identified the following stressors Practical concerns she reports she has no practical concerns Family concerns she reports her family is supportive Emotional concerns she is tied in for appropriate emotional support Physical concerns she referred to physical therapy and had been scheduled to work with Sanjuana Martinez PT but canceled the appointment CARDIOPULMONARY SYMPTOM REVIEW: Patient has no cardiac history and has not had any cardiac problems since her diagnosis of breast cancer Previous echo Reading physician: Mimi Lundberg MD Ordering physician: Queenie Conde MD Study date: 10/08/20 Reason for Exam Priority: Routine Dx: Malignant neoplasm of left breast in female, estrogen receptor negative, unspecified site of breast ([facility]) [C50.912, Z17.1 (ICD-10-CM)] Impressions ? Left Ventricle: Left ventricular systolic function was hyperdynamic with an ejection fraction =>65%. ??? Left Ventricle: Left ventricular diastolic parameters were normal. ??? Left Ventricle: Global longitudinal strain was normal. ??? Right Ventricle: Right ventricular systolic function was normal. PHYSICAL ASSESSMENT: Exam is being done on zoom Patient appears heavy but in no distress. She wears a cap and has no facial hair. Her breathing appears good during the exercise. Her skin color is pale she appears to have good range of motion of upper and lower extremities. She did well on the balance tests below 4 STAGE BALANCE TEST: 1.) Feet side by side she did this normally 2.) Foot touching instep she did quite well with this 3.) Tandem heel touching toe she did need to put her hands out to the side to do this but did not lose her balance at all. 4.) Stand on one foot and left equaling right Standing from Sitting repetitions able to be done in 30 seconds she was able to do 13 repetitions. She was tired at the end of this but was able to complete it without any problems. 5x sit to stand she was somewhat slow and methodical but did not show any balance difficulties it took her 18 seconds to complete this ASSESSMENT This is a woman who developed significant fatigue during her breast cancer treatment. She has not had her surgery yet. She will be undergoing surgery next week. She would like to have an in person physical therapy visit after her surgery. She is very motivated to get into steps to wellness. PLAN 1.) REFERRAL TO PHYSICAL THERAPY she would like to have in person physical therapy after her surgery 2.) OTHER REFERRALS no other referrals at this time TELEMEDICINE VIDEO VISIT Today's visit was provided through telemedicine video conferencing: The location of the patient she was in her home The location of the provider: Home office No other staff participated in this visit. Testing and discussion of the program and reviewing the chart and setting up the referral took 35 minutes. Emelina Rachel MD Oncology Rehabilitation Steps to Wellness Electronicaly signed by: Emelina Grijalva MD documented in this encounter Plan of Treatment Upcoming Encounters Date Type Department Care Team (Late st Contact Info) Description 01/31/2024 13:40 EDT Office Visit [facility] Surgical Oncology - [address] [address] Maeve Morales, [address] [place] [address], [address] [place] [phone] documented as of this encounter Visit Diagnoses Diagnosis Malignant neoplasm of female breast, unspecified estrogen receptor status, unspecified laterality, unspecified site of breast (HCC-CMS)- Primary Other fatigue documented in this encounter Care Teams Blower Feeder Dyed Raw Stock Relationship Specialty Start Date End Date Batsheva Lira FNP [address] [phone] PCP - General 02/19/20 07/21/22 documented as of this encounter
--- OUTSIDE RECORDS SUMMARY | 2023-12-10 17:43 | XMS_ITS | Encounter Summary ---
Author Organization [facility] [place] Address [address] [place] [address] Care Team Providers Care Tie Fastener Name Role Phone Batsheva Lira JOHN Primary Care Provider [phone] Reason for Visit * Reason Comments Infusion Encounter Details Date Type Department Care Team (Latest Contact Info) Description 10/16/2020 12:22 EDT - 10/16/2020 23:59 EDT Hospital Encounter [facility] Hematology & Oncology - [facility] [place] [address], [place] [id number] Malignant 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, estrogen receptor negative (HCC-CMS) (Primary Dx) Discharge Disposition: Home or Self Care Social [...] 9:00 EDT documented as of this encounter Last Filed Vital Signs Vital Sign Reading Time Taken Comments Blood Pressure 160/90 10/16/2020 1241 EDT Pulse 97 10/16/2020 1241 EDT Temperature 36 ??C (96.8 ??F) 10/16/2020 1241 EDT Respiratory Rate 16 10/16/2020 1241 EDT Oxygen Saturation 97% 10/16/2020 1241 EDT Inhaled Oxygen Concentration - - Weight 87.5 kg (193 lb) 10/16/2020 1241 EDT Height 167.1 cm (5' 5.79) 10/16/2020 1241 EDT Body Mass Index 31.35 10/16/2020 1241 EDT documented in this encounter Functional Status [...] No 07/15/2020 documented as of this encounter Medications at Time of Discharge Medication Sig Dispensed Refills Start Date End Date amLODIPine (NORVASC) 2.5 mg tablet Take 2.5 mg by mouth daily. 01/11/2022 escitalopram oxalate (LEXAPRO) 10 mg tablet Take 30 mg by mouth daily. 12/03/2022 INTRAUTERINE DEVICE, IUD, INTRAUTERINE by intrauterine route. [...] for Nausea. 60 Tab 2 07/16/2020 12/25/2020 oxybutynin (DITROPAN) 5 mg tablet Take 5 mg by mouth daily. 11/27/2020 prochlorperazine (COMPAZINE) 10 mg tablet Take 1 Tab by mouth every 6 hours as needed for Nausea. 30 Tab 5 07/22/2020 12/25/2020 traMADol (ULTRAM) 50 mg tablet Take 1 Tab by mouth every 6 hours as needed for Pain. Daily Max: 200 mg 20 Tab 08/13/2020 11/27/2020 triamcinolone acetonide (KENALOG) 0.1 % pasteIndications:Maligna nt 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, estrogen receptor negative (HCC-CMS) Apply to affected area up to three times daily as needed for pain. 1 Tube 11/07/2020 03/26/2021 varenicline tartrate (CHANTIX ORAL) Take by mouth daily. 11/27 documented as of this encounter Discharge Disposition Disposition Code Departure Means Destination Home or Self Care documented in this encounter Progress Notes * Gabby Mack, RN - 10/16/2020 1230 EDT Out-patient Chemotherapy Note Patient presents to clinic today for cycle # 5 of Paclitaxel Q3wk/Carboplatin/Dose dense AC. Today is first AC treatment. Labs reviewed, and parameters for today???s treatment met. Last echo on 09/18, EF 65%. Patient has elevated ALT-126, AST 81. Dr Conde is aware, no concerns about treatment today. Patient noted with single Implanted Port for access. IV flushed, site patent, unremarkable and without redness and brisk blood return noted before and after all chemotherapy and/or biotherapy infusions. Patient received dexamethasone, aloxi, and emend for premedications. This RN discussed high emetic risk with Doxorubicin, and home medications for nausea were reviewed. Risk of constipation with aloxi and home ondansetron also reviewed with patient; she is taking a stool softener as needed. (seeMAR). Doxorubicin administered IVP over 10 minutes (2 syringes) via free flowing NS, blood return noted every 2-4 ml. Cyclophosphamide infused over 30 minutes. Patient encouraged to tell RN if she feels any sinus pressure during infusion. ONPRO applied to left arm--application, monitoring, completion time reviewed with patient. Package inserts provided. Each medication was reviewed with patient prior to administration. Patient verbalized understandingof education provided with no questions or concerns. Patient tolerating chemotherapy treatment at this time with no signs of reaction or side effects. At completion, patient' s single Implanted Port noted to have brisk blood return and device flushedper hospital policy and de-accessed. Access site noted to be patent, unremarkable and without redness. Patient's next infusion appointment is scheduled for 10/30. I was supervised by Dr. Huerta who was present and immediately available in the office suite. Gabby Mack RN documented in this encounter Miscellaneous Notes * Addendum Note - Nelly Mendoza - 10/16/2020 1230 EDTEncounter addended by: Nelly Mendoza on: 11/13/2020 12:33 Actions taken: Charge Capture section accepted documented in this encounter Plan of Treatment Upcoming Encounters Date Type Department Care Team (Late st Contact Info) Description 01/31/2024 13:40 EDT Office Visit [facility] Surgical Oncology - [address] [address] Maeve Morales, DO [address] [place] [address], [address] 2 [place] [phone] documented as of this encounter Procedures Procedure Name Priority Date/Time Associated Diagnosis Comments COMPREHENSIVE METABOLIC PANEL (ONCOLOGY USE ONLY-INC MG) STAT 10/16/2020 12:59 EDT Malignant 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, estrogen receptor negative (HCC-CMS) COMPLETE BLOOD COUNT AND DIFF, CHEMO STAT 10/16/2020 12:59 EDT Malignant 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, estrogen receptor negative (HCC-CMS) documented in this encounter Results * (ABNORMAL) COMPLETE BLOOD COUNT AND DIFF, CHEMO (10/16/2020 12:59 EDT) WBC 5.77 4.00 - 12.40 K/cmm 10/16/2020 13:12 [facility] RBC 4.42 3.86 - 5.04 M/cmm 10/16/2020 13:12 [facility] Hemoglobin 12.9 11.6 - 15.2 gm/dL 10/16/2020 13:12 [facility] HCT 37.4 34.9 - 44.4 % 10/16/2020 13:12 [facility] MCV 85 81 - 98 fl 10/16/2020 13:12 [facility] MCH 29.2 26.7 - 33.3 pg 10/16/2020 13:12 [facility] MCHC 34.5 32.1 - 35.9 gm/dL 10/16/2020 13:12 [facility] RDW-CV 14.8(H) <14.7 % 10/16/2020 13:12 [facility] RDW-SD 45.2 <50.4 fl 10/16/2020 13:12 [facility] PLT 159 141 - 377 K/cmm 10/16/2020 13:12 [facility] MPV 9.7 9.5 - 12.7 fl 10/16/2020 13:12 [facility] % Neutrophils 58.4 % 10/16/2020 13:12 [facility] Absolute Neutrophils 3.37 2.20 - 8.85 K/cmm 10/16/2020 13:12 [facility] Type of Differential: Auto 10/16/2020 13:12 [facility] Blood VENOUS BLOOD / Unknown Venipuncture / Unknown 10/16/2020 12:59 EDT 10/16/2020 13:03 EDT Queenie Conde MD PACKAGES & DNA PROBE ORDERABLES [facility] [address] [place] [address] * (ABNORMAL) COMPREHENSIVE METABOLIC PANEL (ONCOLOGY USE ONLY-INC MG) (10/16/2020 12:59 EDT) Sodium 136 136 - 145 mEq/L 10/16/2020 13:31 [facility] Potassium 4.0 3.5 - 5.0 mEq/L 10/16/2020 13:31 [facility] Chloride 101 96 - 110 mEq/L 10/16/2020 13:31 [facility] CO2 Total 24 22 - 32 mEq/L 10/16/2020 13:31 [facility] Glucose 230(H) 70 - 100 mg/dL 10/16/2020 13:31 [facility] BUN 11 10 - 26 mg/dL 10/16/2020 13:31 [facility] Creatinine 0.36(L) 0.52 - 1.04 mg/dL 10/16/2020 13:31 [facility] eGFR 131 >60 mL/min/1.7 3m2 10/16/2020 13:31 [facility] Comment:eGFR calculated mata asif CKD-EPI equation for non- Americans. Multiply eGFR by 1.16 for patients. Total Protein 7.0 6.3 - 8.2 g/dL 10/16/2020 13:31 [facility] Albumin 4.2 3.4 - 4.9 g/dL 10/16/2020 13:31 [facility] Alkaline Phosphatase 129(H) 38 - 126 U/L 10/16/2020 13:31 [facility] AST 81(H) 15 - 46 U/L 10/16/2020 13:31 [facility] ALT 126(H) <35 U/L 10/16/2020 13:31 [facility] Bilirubin, Total <0.5 <1.4 mg/dL 10/17/19 13:31 [facility] Calcium 9.2 8.5 - 10.5 mg/dL 10/16/2020 13:31 [facility] Calculated Calcium 9.0 8.5 - 10.5 mg/dL 10/16/2020 13:31 EDT [facility] Magnesium 1.7 1.7 - 2.8 mg/dL 10/16/2020 13:31 EDT [facility] Blood VENOUS BLOOD / Unknown Venipuncture / Unknown 10/16/2020 12:59 EDT 10/16/2020 13:03 EDT Queenie Conde MD CHEMISTRY & BLOOD GA S ORDERABLES [facility] [address] [place] [address] documented in this encounter Visit Diagnoses Diagnosis Malignant 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, estrogen receptor negative (HCC-CMS)- Primary documented in this encounter Administered Medications Inactive Administered Medications - up to 3 most recent administrations Medication Order MAR Action Action Date Dose Rate Site cyclophosphamide (CYTOXAN) 1,188 mg in sodium chloride (NS) 0.9 % 150 mL chemo infusion 1,188 mg (600 mg/m2 ? 1.98 m2 Treatment Plan BSA from Recorded weight), intravenous, Administer over 30 Minutes, NOW X1, 1 dose, On Klaudia 10/16/20 at 1500, Routine New Bag 10/16/2020 15:25 EDT 1,188 mg dexAMETHasone (DECADRON) tablet 12 mg 12 mg, oral, NOW X1, 1 dose, On Klaudia 10/16/20 at 1345, Routine Given 10/16/2020 13:55 EDT 12 mg DOXOrubicin (ADRIAMYCIN) chemo injection 118.8 mg 118.8 mg (60 mg/m2 ? 1.98 m2 Treatment Plan BSA from Recorded weight), intravenous, NOW X1, 1 dose, On Klaudia 10/16/20 at 1445, Routine Given 10/16/2020 15:12 EDT 118.8 mg fosaprepitant (EMEND) 150 mg in sodium chloride (NS) 0.9 % 150 mL infusion 150 mg, intravenous, Administer over 30 Minutes, NOW X1, 1 dose, On Klaudia 10/16/20 at 1345, Routine New Bag 10/16/2020 14:01 EDT 150 mg palonosetron (ALOXI) injection 0.25 mg 0.25 mg, intravenous, NOW X1, 1 dose, On Klaudia 10/16/20 at 1345, Routine Given 10/16/2020 13:58 EDT 0.25 mg pegfilgrastim (NEULASTA ONPRO) wearable subcutaneous injection 6 mg 6 mg, subcutaneous, NOW X1, 1 dose, On Klaudia 10/16/20 at 1600, Routine Given 10/16/2020 16:05 EDT 6 mg Lef t Arm sodium chloride 0.9 % (NS) infusion at 100 mL/hr, 250 mL, intravenous, CONTINUOUS, Starting on Klaudia 10/16/20 at 1345, Until Tue10/17/20 at 1354, Routine New Bag 10/16/2020 13:55 EDT 250 mL 100 mL/hr documented in this encounter Orders Medications Ordered That Juanito ht Not Have Been Administered Count Last Ordered Date First Ordered Date sodium chloride 0.9 % (flush) flush 20 mL 1 10/16/2020 Appointment Requests Count Last Ordered Date Fi rst Ordered Date ONCBCN INFUSION APPOINTMENT REQUEST - CALCULATED 1 10/16/2020 documented in this encounter Care Teams Tie Fastener Relationship Specialty Start Date End Date Batsheva Lira FNP [address] [phone] PCP - General 02/19/20 07/21/22 documented as of this encounter
--- OUTSIDE RECORDS SUMMARY | 2023-12-10 17:43 | XMS_ITS | Encounter Summary ---
Author Organization [facility] Address [address] [place] [address] Care Team Providers Care Group Social Worker Name Role Phone Batsheva Lira JOHN Primary Care Provider [phone] Encounter Details Date Type Department Care Team (Late st Contact Info) Description 11/13/2020 Orders Only [facility] Hematology & Oncology - [facility] [address] [place] [address] [place] [address] [place] [phone] Social History Tobacco Use Types Packs/Day Years [...] Description 01/31/2024 13:40 EDT Office Visit [facility] Surgical Oncology - [address] [phone] Maeve Morales, [address] [facility], [address] [place] [phone] documented as of this encounter Visit Diagnoses Not on filedocumented in this encounter Care Teams Group Social Worker Relationship Specialty Start Date End Date Batsheva Lira FNP [address] [place] [phone] PCP - General 02/19/20 07/21/22 documented as of this encounter
--- OUTSIDE RECORDS SUMMARY | 2023-12-10 17:43 | XMS_ITS | Encounter Summary ---
Author Organization [facility] Address [address] [place] [address] Care Team Providers Care Promotions Specialist Name Role Phone Batsheva Lira JOHN Primary Care Provider [phone] Encounter Details Date Type Department Care Team (Latest Contact Info) Description 12/04/2020 Travel Social History Tobacco Use Types Packs/Day [...] Office Visit [facility] Surgical Oncology - [address] [address] Maeve Morales, 111 [facility], [facility], [address] [place] [phone] documented as of this encounter Visit Diagnoses Not on filedocumented in this encounter Care Teams Promotions Specialist Relationship Specialty Start Date End Date Batsheva Lira FNP [address] [phone] PCP - General 02/19/20 07/21/22 documented as of this encounter
--- OUTSIDE RECORDS SUMMARY | 2023-12-10 17:43 | XMS_ITS | Encounter Summary ---
Author Organization [facility] Address [address] [place] [address] Care Team Providers Care Mileage Clerk Name Role Phone Batsheva Lira JOHN Primary Care Provider [phone] Reason for Visit * Reason Onset Date Comments Breast Cancer 11/25/2020 PT referral to e valuate and treat Lymphedema for dianosis: BRCA. Encounter Details Date Type Department Care Team (Late st Contact Info) Description 12/09/2020 Telephone [facility] Rehabilitation Therapy - [address] [address] Betsey Miller, RN [address] [place] [address] Breast Cancer (PT referral to evaluate and treat Lymphedema for dianosis: BRCA. ) Social History Tobacco Use Types Packs/Day [...] Telephone Encounter - Betsey Miller RN - 12/09/2020 1551 EDT 12/09/20: Telephone call to Ms Squires regarding a physical therapy referral from Dr Crescencio Morales,11/25/20, left voice message. Physical therapy referral to evaluate and treat lymphedema in the setting of breast cancer. She is scheduled for surgery, 12/24/20, with a post-op visit with Dr Morales, 01/06/2021. Will discuss surgical plans with Ms Squires to determine how best to proceed with scheduling this evaluation (prior to, or after her surgery). Will await a return phone call. 12/10/20: Lymphedema evaluation scheduled today (1030) with Sanjuana Martinez PT documented in this encounter Plan of Treatment Upcoming Encounters Date Type Department Care Team (Late st Contact Info) Description 01/31/2024 13:40 EDT Office Visit [facility] Surgical Oncology - [address] [address] Maeve Morales, DO [address] [place] [address], [facility], [address] [place] [phone] documented as of this encounter Visit Diagnoses Not on filedocumented in this encounter Care Teams Mileage Clerk Relationship Specialty Start Date End Date Batsheva Lira FNP [address] [phone] PCP - General 02/19/20 07/21/22 documented as of this encounter
--- OUTSIDE RECORDS SUMMARY | 2023-12-10 17:43 | XMS_ITS | Encounter Summary ---
Author Organization [facility] Address [address] [place] [address] Care Team Providers Care Tape Rules Printing Machine Operator Name Role Phone Batsheva Lira JOHN Primary Care Provider [phone] Encounter Details Date Type Department Care Team (Late st Contact Info) Description 12/17/2020 9:30 EDT Phlebotomy Only [facility] ED Center 2 Phlebotomy [address] [place] [address] Manufacturing Engineer Supervisor, Acc Phlebotomy Malignant 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, estrogen receptor negative ([facility]) Social History Tobacco Use Types Packs/Day Years [...] 01/31/2024 13:40 EDT Office Visit [facility] Surgical Oncology - [address] [phone] aMeve Morales, DO [address] [facility], [facility], Level [address] [place] [address] documented as of this encounter Procedures Procedure Name Priority Date/Time Associated Diagnosis Comments COMPREHENSIVE METABOLIC PANEL (ONCOLOGY USE ONLY-INC MG) STAT 12/17/2020 9:48 EDT Malignant 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, estrogen receptor negative (HCC-CMS) COMPLETE BLOOD COUNT AND DIFF, CHEMO STAT 12/17/2020 9:48 EDT Malignant 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, estrogen receptor negative (HCC-CMS) documented in this encounter Results * (ABNORMAL) COMPLETE BLOOD COUNT AND DIFF, CHEMO (12/17/2020 9:48 EDT) WBC 5.56 4.00 - 12.40 K/cmm 12/17/2020 9:59 [facility] RBC 3.77(L) 3.86 - 5.04 M/cmm 12/17/2020 9:59 [facility] Hemoglobin 12.3 11.6 - 15.2 gm/dL 12/17/2020 9:59 [facility] HCT 37.0 34.9 - 44.4 % 12/17/2020 9:59 [facility] MCV 98 81 - 98 fl 12/17/2020 9:59 [facility] MCH 32.6 26.7 - 33.3 pg 12/17/2020 9:59 [facility] MCHC 33.2 32.1 - 35.9 gm/dL 12/17/2020 9:59 [facility] RDW-CV 18.8(H) <14.7 % 12/17/2020 9:59 [facility] RDW-SD 68.3(H) <50.4 fl 12/17/2020 9:59 [facility] PLT 280 141 - 377 K/cmm 12/17/2020 9:59 [facility] MPV 9.8 9.5 - 12.7 fl 12/17/2020 9:59 [facility] % Neutrophils 65.7 % 12/17/2020 9:59 [facility] Absolute Neutrophils 3.65 2.20 - 8.85 K/cmm 12/17/2020 9:59 [facility] Type of Differential: Auto 12/17/2020 9:59 [facility] Blood VENOUS BLOOD / Unknown Venipuncture / Unknown 12/17/2020 9:48 EDT 12/17/2020 9:55 EDT Queenie Conde MD PACKAGES & DNA PROBE ORDERABLES [facility] [address] [place] [address] * (ABNORMAL) COMPREHENSIVE METABOLIC PANEL (ONCOLOGY USE ONLY-INC MG) (12/17/2020 9:48 EDT) Sodium 140 136 - 145 mEq/L 12/17/2020 10:31 [facility] Potassium 3.9 3.5 - 5.0 mEq/L 12/17/2020 10:31 [facility] Chloride 103 96 - 110 mEq/L 12/17/2020 10:31 [facility] CO2 Total 23 22 - 32 mEq/L 12/17/2020 10:31 [facility] Glucose 191(H) 70 - 100 mg/dL 12/17/2020 10:31 [facility] BUN 10 10 - 26 mg/dL 12/17/2020 10:31 [facility] Creatinine 0.46(L) 0.52 - 1.04 mg/dL 12/17/2020 10:31 [facility] eGFR 121 >60 mL/min/1.7 3m2 12/17/2020 10:31 [facility] Comment:eGFR calculated mata asif CKD-EPI equation for non- Americans. Multiply eGFR by 1.16 for patients. Total Protein 7.1 6.3 - 8.2 g/dL 12/17/2020 10:31 [facility] Albumin 4.7 3.4 - 4.9 g/dL 12/17/2020 10:31 [facility] Alkaline Phosphatase 152(H) 38 - 126 U/L 12/17/2020 10:31 [facility] AST 90(H) 15 - 46 U/L 12/17/2020 10:31 [facility] ALT 100(H) <35 U/L 12/17/2020 10:31 [facility] Bilirubin, Total 0.6 <1.4 mg/dL 12/18/19 10:31 [facility] Calcium 9.7 8.5 - 10.5 mg/dL 12/17/2020 10:31 [facility] Calculated Calcium 9.1 8.5 - 10.5 mg/dL 12/17/2020 10:31 EDT [facility] Magnesium 1.8 1.7 - 2.8 mg/dL 12/17/2020 10:31 EDT [facility] Blood VENOUS BLOOD / Unknown Venipuncture / Unknown 12/17/2020 9:48 EDT 12/17/2020 9:55 EDT Queenie Conde MD CHEMISTRY & BLOOD GA S ORDERABLES Performing Organization Address City/State/[facility] Co de Phone Number [facility] [address] [place] [address] documented in this encounter Visit Diagnoses Diagnosis Malignant 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, estrogen receptor negative (HCC-CMS) documented in this encounter Care Teams Tape Rules Printing Machine Operator Relationship Specialty Start Date End Date Batsheva Lira FNP [address] [phone] PCP - General 02/19/20 07/21/22 documented as of this encounter
--- OUTSIDE RECORDS SUMMARY | 2023-12-10 17:43 | XMS_ITS | Encounter Summary ---
Author Organization [facility] Address [address] [place] [address] Care Team Providers Care Electron Beam Operator Name Role Phone Batsheva Lira JOHN Primary Care Provider [phone] Reason for Visit * Reason Onset Date Comments Abrasion 10/25/2020 Encounter Details Date Type Department Care Team (Late st Contact Info) Description 10/25/2020 Telephone [facility] Center Hematology & Oncology - Main [place] [address] [place] [address] Chintan Orta MD [address] [place] [address] [phone] Abrasion Social History Tobacco Use Types Packs/Day Years [...] cephalexin (KEFLEX) 500 mg capsule Take 1 Cap by mouth every 6 hours for 5 days. 20 Cap 10/25/2020 10/30/2020 documented in this encounter Miscellaneous Notes * Telephone Encounter - Chintan Orta MD - 10/25/2020 1648 EDT Pt called stating that pt fell at a gas station and cut her toe with bleeding which resolved with compression. She cleaned the toe with hydrogen peroxide. Her ANC 0.13 on 10/23. She denied any fever, chills, weakness. Will Rx keflex 500 mg QID for 5 days as prophylaxis. Chintan Orta MD Hematology/Oncology Fellow PGY4 [facility] documented in this encounter Plan of Treatment Upcoming Encounters Date Type Department Care Team (Late st Contact Info) Description 01/31/2024 13:[address] [facility] Surgical Oncology - [facility] [address] [place], [place] [phone] Maeve Morales, 111 [facility], [facility], [address] [place] [address] documented as of this encounter Visit Diagnoses Not on filedocumented in this encounter Care Teams Electron Beam Operator Relationship Specialty Start Date End Date Batsheva Lira FNP [address] [phone] PCP - General 02/19/20 07/21/22 documented as of this encounter
--- OUTSIDE RECORDS SUMMARY | 2023-12-10 17:43 | XMS_ITS | Encounter Summary ---
Author Organization [facility] Address [address] [place] [address] Care Team Providers Care Sales And Marketing Executive Name Role Phone Batsheva Lira JOHN Primary Care Provider [phone] Reason for Visit * Reason Comments Fever pt ambulatory to [facility] age with c/o fever, last temp 102.5F. Is on chemo for breast CA, last treatment 11/13. Denies n/v. Has a scratch to the bottom of her R foot from her cat however pt reports this seems to be getting better. Temp 99.8F on arrival, tachycardic. Encounter Details Date Type Department Care Team (Late st Contact Info) Description 11/21/2020 20:14 EDT - 11/23/2020 11:40 EDT Hospital Encounter [facility] Hematology & Oncology Unit [address] [place], [place] [id number] Hitesh Bashir MD 111 [facility], Level 1 [place] [address] Kenneth Thomas MD MPH [address] [phone] Kennedi Fang MD [address] [phone] Sepsis ([facility]) (Primary Dx); Fever and chills; Malignant neoplasm of right breast in female, estrogen receptor negative, unspecified site of breast ([facility]); Sepsis without acute organ dysfunction, due to unspecified organism ([facility]) Discharge Disposition: Home or Self Care Social [...] 20:13 EDT documented as of this encounter Last Filed Vital Signs Vital Sign Reading Time Taken Comments Blood Pressure 116/75 11/23/2020 0443 EDT Pulse 82 11/23/2020 0443 EDT Temperature 35.7 ??C (96.3 ??F) 11/23/2020 0443 EDT Respiratory Rate 18 11/23/2020 0443 EDT Oxygen Saturation 97% 11/23/2020 0443 EDT Inhaled Oxygen Concentration - - Weight 87.2 kg (192 lb 3.9 oz) 11/21/2020 2337 E DT Height 165.1 cm (5' 5) 11/21/2020 2337 EDT Body Mass Index 31.99 11/21/2020 2337 EDT documented in this encounter Functional Status [...] No 11/21/2020 documented as of this encounter Discharge Summaries * Kennedi Fang MD - 11/23/2020 1108 EDT Medicine Discharge Summary Primary Care Provider: JOHN Orosco Attending Physician: Kennedi Fang MD Admit Date: 11/21/2020 Discharge Date: 11/23/2020 Disposition: Home or self care Reason for Admission: Fever Principal/Final Diagnosis: Fever, sepsis ruled out Additional Problems Managed in the Hospital Active Hospital Problems Diagnosis Date Noted ??? 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, estrogen receptor negative ([facility]) 07/15/2020 Resolved Hospital Problems Diagnosis Date Noted Date Resolved ??? *Fever and chills 11/21/2020 11/23/2020 Principal Procedure: None Hospital Course: Ms. Squires is a 45 year old female patient with triple negative breast cancer on neoadjuvant chemotherapy [received AC (Adriamycin (doxorubicin) and cyclophosphamide) on 11/13/20 with neulasta support]who presented to the ED 11/21/20 complaining of a 101.5 fever and recent weakness. Patient's lactate was noted to be elevated in the ED at 3 with abs neutrophils of 1.52. Patient was begun on empiric cefepime and vancomycin and transferred to the Medical Oncology Unit for further treatment. BCx2, Ux,and CXray were all negative. On 11/22/20 abx were discontinued due to improved status and unremarkable labs, and no infectious source identified. BC and Urine cultures are pending, but given her improved clincal status, the patient was felt to be stable for discharge. She was discharged to home 11/23/20. She will have close follow up wither her PCP and Primary Oncologist. Condition at Discharge: Improved or Stable Clinical Issues Needing Follow-up: Triple negative breast cancer: Follows with Dr. Conde. Surgery planned for 12/24/20. - continue treatment per oncology Allergies Allergen Reactions ??? Oxycodone Other (See Comments) Made her hyper Immunization History Administered Date(s) Administered ??? Covid-19 mRNA Vaccine ([employer] COVID-19) PF 0.3 ml IM (12 yrs+) 08/08/2020, 08/29/2020 Results Pending at Discharge Test results still pending from this admission Procedure Component Value Units Date/Time Hemoglobin A1c [[id number]] Collected: 11/22/20610 Lab Status: In process Specimen: Blood, Venous Updated: 11/22/20626 Bacterial Culture, Blood [[id number]] Collected: 11/21/202123 Lab Status: In process Specimen: Blood, Venous Updated: 11/21/202142 Bacterial Culture, Blood [[id number]] Collected: 11/21/202051 Lab Status: In process Specimen: Blood, Venous Updated: 11/21/202101 Upcoming Appointments Nov 25, 2020 10:20 (Arrive by 10:10) Follow Up Visit with Maeve Morales DO [facility] Surgical Oncology - [facility] ([facility] [place]) [address] [place] [id number] Nov 27, 2020 9:00 Infusion with CHAIR 16 [facility] Hematology & Oncology - [facility] ([facility]) [address] [place] [id number] Nov 27, 2020 9:20 Follow Up Visit with Liat Honeycutt PA-C [facility] Hematology & Oncology - [place] ([facility]) [address] [place] [address] Dec 04, 2020 10:00 PRE OP with Juanito Carcamo MD FACS [facility] Plastic, Reconstructive & Cosmetic Surgery - [place] (--) [address], [address] [facility] [address] Dec 17, 2020 8:30 PAT Call with [facility] PAT CALL ROOM 5 [facility] Pre-Surgical Testing (--) [address] [facility] [address] Jan 01, 2021 10:00 Post Op Visit with Oksana Wilkins PA-C [facility] Plastic, Reconstructive & Cosmetic Surgery - [place] (--) [address], [address] [facility] [address] Jan 06, 2021 10:20 Post Op Visit with Maeve Morales DO [facility] Surgical Oncology - [facility] ([facility]) [address] [facility] [id number] Jan 06, 2021 11:30 Follow Up Visit with Queenie Conde MD [facility] Hematology & Oncology - [facility] ([facility]) [address] [facility] [phone] Follow-up appointments and procedures Amb Consult/Follow Up Primary Care Physician Reason for Request: Hospital Follow up Authorizing Provider: Lubna Sagastume MD Discharge Handoff Communication Patient's oncologist was notified via staff message. Discharge Summary Completed By: LUBNA SAGASTUME MD, PGY-2, Pager [phone] 11/23/2020 11:02 ATTENDING ATTESTATION: Date of service: 11/23/2020 I interviewed and examined the patient. I reviewed interval labs, events, and notes. I discussed the case with the medicine house staff team. I agree with and edited the findings and plan of care as documented in the discharge summary above. I reviewed the discharge instructions and follow-up plan with the patient. Total unit time I spent in the care of the patient on date of discharge: 30 Minutes Kennedi Fagn MD Division of Hospital Medicine 11/23/2020 11:53 documented in this encounter Medications at Time [...] 08/13/2020 11/27/2020 triamcinolone acetonide (KENALOG) 0.1 % pasteIndications:Malig nant 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, estrogen receptor negative (HCC-CMS) Apply to affected area up to three times daily as needed for pain. 1 Tube 11/07/2020 03/26/2021 varenicline tartrate (CHANTIX ORAL) Take by mouth daily. 11/27 documented as of this encounter Discharge Disposition Disposition Code Departure Means Destination Home or Self Mcfp documented in this encounter Progress Notes * Kennedi Fang MD - 11/22/2020 0954 EDT Medicine Progress Note Service Date: 11/22/2020 Admit Date: 11/21/2020 20:14 Reason for Admission: 45 y.o. female admitted with a chief complaint of fever/chills and now with aprincipal diagnosis of fever. 24 Hour Events: admitted from ED Subjective/Objective Subjective Ms. Squires feels well this morning. She was seen with myself and Dr. Fang at bedside with mom and dad in the room. She notes that her energy has returned and she is no longer feverish, though she continues to feel clammy. She mentions her low back pain, citing that she has had it many times in thepast with kidney stones, and wonders if that could be part of her fevering. We discussed her negative UA, and Dr. Fang explained that a kidney stone would not necessarily be obvious on a UA. She haschemotherapy on and is hopeful to be medically ready to receive it. Review of Systems A ten point review of systems was performed and was negative except for pertinent positives noted in the HPI Objective Vital Signs Temp: [35.7 ??C (96.3 ??F)-38.8 ??C (101.9 ??F)] , Heart Rate: [106 BPM-115 BPM] , Resp: [16-23] , BP: (107-142)/(67-89) , SpO2: [95 %-100 %] Physical Exam Gen: AAOX4, Well developed, well nourished female, No acute distress, conversing appropriately HEENT: Atraumatic, extra ocular movements intact, Pupils equally round and reactive to light, no scleral icterus, Oropharynx benign Neck: Supple with full range of motion, trachea midline Pulm: Clear to auscultation bilaterally, no rhonchi, rales or wheezes CV: No JVD, no carotid bruits, regular rate and rhythm, no murmurs, rubs, or gallops, S1 and S2 heard Abd: Soft, non-tender, non-distended, positive bowel sounds, no splenohepatomegaly : No kim in place, No CVA tenderness Neuro: No focal deficits, Moving all extremities Ext: No lower extremity edema, good distal pulses, normal cap refill, no clubbing or cyanosis noted. Several linear healing cuts on the pedal surface of the right foot without surrounding erythema ordrainage. Skin: no rashes, diaphoretic. Is PICC or central line present? No, PICC/Central line not present. Medications Reviewed: Changes notable for DC'd cefepime & vanc Labs CBC: Recent Labs 11/21/20205111/22/20 0611 WBC 4.65 5.63 RBC 3.25* 2.91* HGB 10.0* 8.9* HCT 28.6* 26.1* MCV 88 90 MCH 30.8 30.6 MCHC 35.0 34.1 PLT 138* 108* NEUTROABS 1.52* 1.95* BMP: Recent Labs 11/21/20205111/22/20 0611 NA 136 138 K 3.2* 3.5 CL 100 104 CO2 26 26 BUN 5* 5* CREATININE 0.36* 0.32* Coags: Card enz: Blood gas: LFTs: Recent Labs 11/22/20 0611 TBIL <0.5 ALKPHOS 131* AST 34 ALT 57* UA: Recent Labs 11/21/202123 COLOR Yellow CLARITYU Clear GLUCOSEU 1+* BILIRUBINUR Negative KETONES Negative LABSPEC 1.016 PHUR 8.0 PROTEINUA Negative UROBILINOGEN Normal NITRITE Negative LEUKESTER Negative WBCU 0 - 3 RBCU 0 - 2 BACTERIA None Seen LABCAST <=10 Imaging Reviewed: 11/21 CXray IMPRESSION 1. No acute cardiopulmonary process. 2. Apparent circumscribed lucency involving the medial aspect of the right clavicle. This could be artifactual due to superimposition of structures, but an underlying bone lesion is possible. If clinically indicated, dedicated radiographs of the right clavicle could be considered to see if this finding persists. Assessment/Plan Assessment Ms. Squires is a 45 year old female patient with triple negative breast cancer on neoadjuvant chemotherapy [received AC (Adriamycin (doxorubicin) and cyclophosphamide) on 11/13/20 with neulasta support]who presented to the ED 11/21 complaining of a 101.5 fever and recent weakness. Patient's lactate wasnoted to be elevated in the ED at 3 with abs neutrophils of 1.52. Patient was begun on empiric cefepime and vancomycin and transferred to the Medical Oncology Unit for further treatment. BCx2, Ux, and CXray were all negative. On 11/22 patient, abx were discontinued due to improved status and unremarkable labs. Plan for discharge 11/23 if no changes overnight.?? Plan Principal Problem: #Fever-- Not currently neutropenic. Unclear source at this time, - DC'd cefepime & vanc 11/22 - PRN tylenol - fu BCx, UCx - CBC, BMP ?? Triple negative breast cancer: (T2N0) cycle #??7??, day # 9??of ??Paclitaxel Q3W + Carboplatin. Follows with Dr. Conde. Surgery planned for 12/24. - continue treatment per oncology ?? 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 The case was discussed with the Internal Medicine House Staff team. I agree with findings and plan of care as documented by the resident. Please see my additions in blue. Kennedi Fang MD Internal Medicine Hospitalist 11/23/2020 7:05 documented in this encounter H&P Notes * Chris Fernandes MD - 11/21/2020 6640 EDT Medical Oncology Admission History & Physical Service Date: 11/22/2020 Admit Date: 11/21/2020 20:14 Primary Care Provider: JOHN Orosco Chief Complaint: Fever HPI Austin Squires is a 45 y.o. female with a PMHx of HTN, nephrolithiasis, prior tobacco use, urinary urgency and breast cancer undergoing chemotherapy presents with fever of less than one day. Has felt generally well until this morning when she was feeling fatigued and then later this afternoon started to experience fever and chills and took her temperature and noted to be 101.3. She called her oncologist who recommended she go to the ED for evaluation. Lately she has been running arounda lot as she has family visiting from [place], and thought maybe this is why she was feeling more tired than usual this morning. Does not think any of them have been ill recently. She has associated lower back and hip pain that radiates down her legs, which she experienced following chemotherapy and Neulasta previously. This usually resolves after few days. She has had some loose stools which is typical for her after chemotherapy, but denies any watery diarrhea or abdominal pain. She has also had some mild associated sinus pressure. She has not had any rashes but does have a scratch on the bottom of her right foot where her cat scratched her several days ago. It has been mildly tender but she feels it has been healing and the pain has been getting better. No tenderness around her port site . She further denies any history of sick contacts, dizziness, neck stiffness, photophobia, productive cough, chest pain, abdominal pain, vomiting, dysuria. In the ED HR 115, BP 130/74, T 38.8, O2 sat 97% on room air. Labs notable for lactate 3.0, potassium 3.2, BG 161, Hgb 10, WBC 4.65, PLT 138, ABS neutrophils 1.52. UA negative. CXR showed a circumscribed lucency involving the medial aspect of the right clavicle that could represent possible bone lesion. She was treated with cefepime and vanc, IVF and Tylenol. Oncologic History Per Dr. Conde's note from 10/30/2020: Austin's finish photographer noticed a mass in 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?She then underwent imaging and a biopsy on 07/09/20??of a 2.1 cm mass revealed a nuclear grade 3 ER negative NM negative for B2 negative ductal carcinoma.??Staging evaluation did reveal a prominent L IM lymphnode but ot herwise negative. Given her triple negative histology??she began??starting taxol/carboplatinum as part of the SIKOV Regimen??on July 22, 2020.?? Review of Systems A complete 10 point ROS was performed and pertinent positive and negative findings listed in HPI, otherwise negative. Past Medical History: Diagnosis Date ??? Exercise [...] 1998, 2011 epidural with childbirth Social History Tobacco Use ??? Smoking status: Former Smoker Packs/day: 0.50 Years: 30.00 Pack years: 15.00 Types: Cigarettes Quit date: 09/17/2020 Years since quittin.1 ??? Smokeless tobacco: Never Used ??? Tobacco comment: pt also vapes Substance Use Topics ??? Alcohol use: Yes Comment: rarely Family History Problem Relation Age of Onset ??? Lung Cancer Mother No current outpatient medications on file. Allergies Allergen Reactions ??? Oxycodone Other (See Comments) Made her hyper Objective Vitals Temp: [36.1 ??C (97 ??F)-38.8 ??C (101.9 ??F)] , Heart Rate: [106 BPM-115 BPM] , Pulse: [97-126] , Resp: [18-23] , BP: (107-142)/(67-89) , SpO2: [95 %-100 %] , Numeric Pain Level (Scale 1-10): 3 Weight: Weight : 87.2 kg (192 lb 3.9 oz) Body mass index is 31.99 kg/m??. Physical Exam Gen: AAOX4, Well developed, well nourished female, No acute distress, conversing appropriately HEENT: Atraumatic, extra ocular movements intact, Pupils equally round and reactive to light, no scleral icterus, Oropharynx benign Neck: Supple with full range of motion, trachea midline Pulm: Clear to auscultation bilaterally, no rhonchi, rales or wheezes CV: No JVD, no carotid bruits, regular rate and rhythm, no murmurs, rubs, or gallops, S1 and S2 heard Abd: Soft, non-tender, non-distended, positive bowel sounds, no splenohepatomegaly : No kim in place, No CVA tenderness Neuro: No focal deficits, Moving all extremities Ext: No lower extremity edema, good distal pulses, normal cap refill, no clubbing or cyanosis noted. Several linear healing cuts on the pedal surface of the right foot without surrounding erythema ordrainage. Skin: no rashes, diaphoretic. Pressure Ulcer Present on Admission? No Labs I have personally reviewed Recent Labs 11/21/202051 WBC 4.65 RBC 3.25* HGB 10.0* HCT 28.6* MCV 88 MCH 30.8 MCHC 35.0 PLT 138* NEUTROABS 1.52* Recent Labs 11/21/202051 NA 136 K 3.2* CL 100 CO2 26 BUN 5* CREATININE 0.36* Recent Labs 11/21/202123 COLOR Yellow CLARITYU Clear GLUCOSEU 1+* BILIRUBINUR Negative KETONES Negative LABSPEC 1.016 PHUR 8.0 PROTEINUA Negative UROBILINOGEN Normal NITRITE Negative LEUKESTER Negative WBCU 0 - 3 RBCU 0 - 2 BACTERIA None Seen LABCAST <=10 Imaging I have independently visualized images XR CHEST PORTABLE 1 VIEW Result Date: 11/21/2020 PRELIMINARY REPORT XR CHEST PORTABLE 1 VIEW 11/21/2020 9:05 PM CLINICAL HISTORY/COMMENTS: Sepsis; neutropenic fever COMPARISON: CT chest 07/18/2020. FINDINGS: Single portable AP view of the chest at 75 degrees. Lines/tubes: Unremarkable course of the right internal jugular chest port. Soft tissues, bones and extrathoracic findings: There is an apparent well circumscribed lucency involving the medial aspect of the right clavicle, which is possibly artifactual. Cardiac and mediastinal contours:The cardiomediastinal contour is normal. Tip of the right internal jugular central venous chest port terminates in the right atrium. Lungs: Lung volumes are slightly low but the lungs are otherwise clear and the pulmonary vasculature is normal. Pleura: There are no visible pleural abnormalities on this mostly upright chest radiograph. 1. No acute cardiopulmonary process. 2. Apparent circumscribed lucency involving the medial aspect of the right clavicle. This could be artifactual due to superimposition of structures, but an underlying bone lesion is possible. If clinically indicated, dedicated radiographs of the right clavicle could be considered to see if this finding persists. . Assessment Austin Squires is a 45 y.o. female with a PMHx significant for HTN, nephrolithiasis, prior tobacco use, urinary urgency and breast cancer undergoing chemotherapy presents with fever of less than one day. Plan Fever: Not currently neutropenic. Unclear source at this time, no localizing symptoms. Foot wound appears to be healing well, do not suspect this as source. Repeat lactate of 3 unchanged. - continue cefepime & vanc - additional 1L bolus IVF and maintenance - PRN tylenol - fu BCx, UCx - CBC, BMP, LFTs Triple negative breast cancer: (T2N0) cycle # 7 , day # 9 of Paclitaxel Q3W + Carboplatin. Follows with Dr. Conde. Surgery planned for 12/24. 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 Patient warrants hospitalization because fever CHRIS FERNANDES MD 11/22/2020 5:02 Associated attestation - Kenneth Thomas MD MPH - 11/22/2020 0658 EDT Attending Attestation I have interviewed and examined the patient. I personally reviewed laboratories studies, radiographic studies, ECG, and prior records. I discussed the case with: Dr. Fernandes. I agree with the findings and plan of care as documented in the note above. No clear localizing source of infection, continue on empiric abx for now, f/u cultures and discussion with oncology. Reassuring that she is not actually neutropenic. Lactate not really improved on repeat, provided additional IVF and f/u repeat. Kenneth Thomas MD MPH 11/21/2020 10pm documented in this encounter ED Notes * Niels Espinosa - 11/21/2020 1158 EDT I, Niels Espinosa, notified Dr. MARQUEZ of LACTIC ACID OF 3.0 on 11/21/2020 at 21:18. * Hitesh Bashir MD - 11/21/20202048 EDT This patient received an evaluation and medical screening exam for emergent medical conditions at the [facility] on 11/21/2020 This note was created and authored by Dr. Sandro Marquez working under the supervision of Hitesh Bashir MD. This documentation is also recorded by Sebas Monson acting as Scribe under the direction and presence of Hitesh Bashir MD and SANDRO MARQUEZ MD. Hitesh Bashir MD and SANDRO MARQUEZ MD: We personally performed the services recordedby the scribe in our presence. We confirm the scribe's documentation has been reviewed by us to accurately and completely record our work, treatment, procedures, and medical decision making. ED Attending???s Supervisory Statement: I, Hitesh Bashir MD, performed a history and exam of this patient and discussed the case with the resident. I have reviewed and edited this note, and the documentation is consistent with my findings, assessment and plan. I fully participated in the medical decision making. Chief Complaint: Chief Complaint Patient presents with ??? Fever pt ambulatory to triage with c/o fever, last temp 102.5F. Is on chemo for breast CA, last treatment11/13. Denies n/v. Has a scratch to the bottom of her R foot from her cat however pt reports this seems to be getting better. Temp 99.8F on arrival, tachycardic. History of Present Illness: ANAMARIA Squires is a 45 y.o. female triple negative breast cancer on neoadjuvant chemotherapy who presents with fever at home. The patient explains that she began to have pain today that radiated formher lower back to her legs. She explains she has had an episode of similar pain after neoadjuvant chemotherapy treatment in the past but it resolved without intervention. She explains that she went home to rest, though she noticed her body tempeture begin to rise. She measured her tempeture at home at 101.3 F. The patient also endorses a mild headache that worsened with cough. The patient explains that she is a former smoker, and she has a smoker's cough at baseline.The patient describes her headache as a sinus headache and explains that it started around 18:00 this afternoon, similar to prior headaches. The patient explains that she called Hematology who referred her to the ED. In route to the ED that patient's temperature was taken at 102.5 F. In the ED the patient's temperature was measured at 101 F. The patient notes that she was scratched by a cat on the bottom of her right foot several days ago. The patient denies any pain associated with the scratch. The patient denies noticing any rash, chest pain, neck pain or neck stiffness. The patient also denies nausea, vomiting, or abdominal pain. No dysuria, but does not some occasional diarrhea, which is not uncommon for her during chemo. The patient's last chemotherapy treatment is scheduled 6 days from today. She isschudled for a mastectomy in December. On chart review it was noted that on 10/23 had the patient had an absolute neutrophile count 0.13. History was provided by: patient, medical record review Review of Systems: ROS A 10-point review of systems was performed. The patient answered negative to all questions with theexceptions of those explicitly detailed as positives in the HPI. Pertinent negatives are also explicitly stated. Other documented history in the medical record includes but is not limited to: PMH PSH Past Medical History: Diagnosis Date ??? Exercise [...] 2011 epidural with childbirth Social History Family History Social History Tobacco Use ??? Smoking status: Former Smoker Packs/day: 0.50 Years: 30.00 Pack years: 15.00 Types: Cigarettes Quit date: 09/17/2020 Years since quittin.1 ??? Smokeless tobacco: Never Used ??? Tobacco comment: pt also vapes Substance Use Topics ??? Alcohol use: Yes Comment: rarely Family History Problem Relation Age of Onset ??? Lung Cancer Mother Medications Allergies Current Facility-Administered Medications Medication Route Frequency ??? acetaminophen (TYLENOL) 500 mg tablet ??? electrolyte-A (PLASMALYTE-A) bolus 1,000 mL intravenous Now ??? vancomycin (VANCOCIN) 1,750 mg in dextrose 5% (D5W) 500 mL IVPB intravenous Now Current Outpatient Medications Medication ??? amLODIPine (NORVASC) 2.5 mg tablet ??? escitalopram oxalate (LEXAPRO) 10 mg tablet ??? INTRAUTERINE DEVICE, IUD, INTRAUTERINE ??? lidocaine-prilocaine (EMLA) cream ??? OLANZapine (ZYPREXA) 5 mg tablet ??? omeprazole (PRILOSEC) 40 mg capsule ??? ondansetron (ZOFRAN-ODT) 8 mg disintegrating tablet ??? oxybutynin (DITROPAN) 5 mg tablet ??? prochlorperazine (COMPAZINE) 10 mg tablet ??? traMADol (ULTRAM) 50 mg tablet ??? triamcinolone acetonide (KENALOG) 0.1 % paste ??? varenicline tartrate (CHANTIX ORAL) Allergies Allergen Reactions ??? Oxycodone Other (See Comments) Made her hyper Physical Exam: Nursing notes and vital signs were reviewed Vital Signs Temp: (!) 38.8 ??C (101.9 ??F) Temp src: Oral Pulse: (!) 126 Heart Rate: (!) 115 BPM Resp: 23 SpO2: 95 % BP: 130/74 BP MAP: 83 mm Hg BP Device: BP Machine BP Patient Position: Sitting BP Cuff Location: Left arm O2 Device: None (Room air) Physical Exam Constitutional: Well appearing in no acute distress. Appears stated age. Head: Atraumatic, normocephalic Eyes: Pupils equal and reactive to light, no scleral icterus Mouth: Moist oral mucosa without apparent lesions Neck: Full ROM, no pain with extension of the neck Cardiovascular: Tachycardia, regular rhythm. Extremities warm and well perfused, no peripheral edema. Respiratory: Normal respiratory effort. No wheezes or crackles. Clear to auscultation bilaterally. Abdomen: Soft, non-tender to palpation Skin: No overt rashes on exposed skin. Multiple superficial scratches on sole of the right foot with some surrounding erythema Musculoskeletal: Moving extremities spontaneously; no gross deformities Neuro: Grossly neurologically intact with normal speech Psych: No agitation or overt thought disorder Data Interpretation: Imaging obtained was reviewed and independently interpreted by myself along with a radiologist. Please see radiology report for further details: XR CHEST PORTABLE 1 VIEW Preliminary Result 1. No acute cardiopulmonary process. 2. Apparent circumscribed lucency involving the medial aspect of the right clavicle. This could be artifactual due to superimposition of structures, but an underlying bone lesion is possible. If clinically indicated, dedicated radiographs of the right clavicle could be considered to see if this finding persists. Laboratory results independently reviewed, significant for: elavated lactic acid at 3.0 Labs Reviewed COMPLETE BLOOD COUNT AND DIFFERENTIAL - Abnormal Result Value Status WBC 4.65 Final RBC 3.25 (*) Final Hemoglobin 10.0 (*) Final HCT 28.6 (*) Final MCV 88 Final MCH 30.8 Final MCHC 35.0 Final RDW-CV 16.4 (*) Final RDW-SD 51.6 (*) Final PLT 138 (*) Final MPV 10.7 Final Nucleated Red Blood Cells 2 Final Type of Differential: Manual Final ELECTROLYTES - Abnormal Sodium 136 Final Potassium 3.2 (*) Final Chloride 100 Final CO2 Total 26 Final BUN - Abnormal BUN 5 (*) Final CREATININE - Abnormal Creatinine 0.36 (*) Final eGFR 131 Final GLUCOSE, SERUM - Abnormal Glucose 161 (*) Final LACTIC ACID WITH REFLEX - USE FOR INITIAL SEPSIS EVALUATION - Abnormal Lactic Acid 3.0 (*) Final URINE CHEMICAL (DIP) & SEDIMENT (MICRO) WITH REFLEX TO CULTURE - Abnormal Color UA Yellow Final Clarity UA Clear Final Glucose UA 1+ (*) Final Bilirubin UA Negative Final Ketones UA Negative Final Specific [place], Urine 1.016 Final Blood UA Negative Final Urobilinogen UA Normal Final Nitrite UA Negative Final Leukocyte Esterase UA Negative Final Protein UA Negative Final pH, UA 8.0 Final Urine RBC Count, Auto 0 - 2 Final Urine WBC Count, Auto 0 - 3 Final Urine Squamous Count, Auto Few (*) Final Urine Hyaline Cast Count, Auto <=10 Final Urine Bacteria Count, Auto None Seen Final Narrative: NOTE: Reflex to Urine Culture test is not indicated based on Urine Sediment Analysis results. Urine Sediment Analysis results are unreliable on urines that are unrefrigerated for >2 hrs or refrigerated >8 hrs. DIFFERENTIAL, AUTOMATED MANUAL - Abnormal Neutrophils 32.7 Final Banded Neutrophils 15.0 Final Lymphocytes 15.9 Final Atypical Lymphocytes 2.7 Final Monocytes 23.9 Final Metamyelocytes 7.1 Final Myelocytes 0.9 Final Promyelocytes 1.8 Final Dohle Bodies Present Final Toxic Granulation Present Final Absolute Neutrophils 1.52 (*) Final Absolute Bands 0.70 Final Absolute Lymphocytes 0.74 (*) Final Absolute Atypical Lymphocytes 0.13 Final Absolute Monocytes 1.11 (*) Final Absolute Metamyelocytes 0.33 Final Absolute Myelocytes 0.04 Final Absolute Promyelocytes 0.08 Final BACTERIAL CULTURE, BLOOD BACTERIAL CULTURE, BLOOD COVID-19 TESTING COVID-19 TEST [facility] PCR HOLD BLUE TOP Hold Hold Final HOLD SST Hold Hold Final LACTIC ACID BLOOD BANK HOLD Hold BB Spec will exp at 23:59, 3 days from collect date Final Procedures Procedures Medical Decision Making and ED Course Summary A medical screening exam was performed. Austin Squires is a 45 y.o. female triple negative breast cancer on neoadjuvant chemotherapy who presents with fever ranging between 101 - 102 F. The differential diagnosis for this patient includes but is not limited to: neutropenic fever, UTI,cellulites, gastroenteritis, less likely meningitidis or abdominal source. Per chart review, patient had neutropenia of 0.16 less than one month ago. Given her fever and tachycardia here, I am concerned about sepsis, with potential sources including urinary or skin. Will obtain blood work and start empiric broad-spectrum antibiotics with cefepime. Nevertheless, she is well appearing on exam. Although she notes a mild headache, it feels similar to prior and she has no confusion, FND, or neck stiffness, so I have low suspicion for meningitis. The patient's labs showed elevated lactic acid at 3.0. 1L IVF currently infusing The patient's chest x-ray showed No acute cardiopulmonary process. Upon reevaluation the patient was stable for admission to Oncology service under the care of Dr. Thomas. The patient was receptive to this plan. Clinical Impression Final diagnoses: Sepsis ([facility]) Disposition Disposition decisions were made weighing risks and benefits of hospitalization vs. outpatient treatment, the risk for further decompensation, and the patient???s wishes. Admitted. The patient required admission for further workup or management of their condition Upon departure from the Emergency Department, the patient's pain was 1 on a zero to ten scale. Condition at departure from the Emergency Department: Stable Some of this note was transcribed with [employer] dictating software. While it was proofread, it may still contain unnoticed grammatical or word errors due to incorrect transcribing. * Richi Jeong - 11/21/20202009 EDT TCALL: AUSTIN SQUIRES, 75, REF BY HEMATOLOGY, RECEIVED CHEMO ON THE , NOW HAS A TEMP OF 101.5, HEADACHE, DIARRHEA, AND SCRATCH ON FOOT, CONCERN FOR NEUTROPENIC FEVER, HOPES THAT WAIT TIME WILLSHORTENED (LBI) documented in this encounter Miscellaneous Notes * Plan of Care - Maria Ines Salvador RN - 11/23/2020 1120 EDT Nursing Discharge Note D: Patient noted with discharge orders to: home. A: Reviewed discharge instructions with Patient IVAD deaccessed. Belongings collected and sent home with patient. R: Patient verbalized understanding of discharge instructions and denied further questions. MARIA INES SALVADOR RN 11/23/2020 11:20 * Plan of Care - Martha Zhang RN - 11/23/2020 0409 EDT Problem: Daily Care Plan Goals Goal: Care Plan Documentation Flowsheets (Taken 11/22/20201939) Area of Focus: Thermoregulation Goal This Shift: Pt will remain afebrile Data: Assumed care of pt at 1900. Pt admitted with weakness and fevers in setting of breast cancer.AAOx4, ambulates independently. No complaints of pain. Action: Administered scheduled medications (see MAR). Port positional overnight, able to get good blood return, dressing changed. LR running at 125mL/hr. Clustered care to promote rest, Q4 VS, hourlychecks completed for pt safety/comfort. Response: Pt able to sleep overnight comfortably. VSS. Will CTM and adjust care as needed. Blood pressure 110/75, pulse 78, temperature 36.7 ??C (98.1 ??F), temperature source Tympanic, resp. rate 18, height 165.1 cm (65), weight 87.2 kg (192 lb 3.9 oz), SpO2 99 %. MARTHA ZHANG RN 11/23/2020 4:09 * Plan of Care - Maria Ines Salvador RN - 11/22/2020 1612 EDT Data: Assumed care of patient at 0700. Pt is AAOx3 and independent. Pt is here with fevers. Pts pain 0-3/10 this shift. Lactic acid now down to 2.4 this AM. LR infusing continuously this shift. Action: Medications administered per JUL. PRN medications given as requested by patient. Hourly rounding completed for safety. Response: Pt is resting at this time. VSS this shift. Blood pressure 110/67, pulse 93, temperature 35.7 ??C (96.3 ??F), temperature source Tympanic, resp. rate 18, height 165.1 cm (65), weight 87.2 kg (192 lb 3.9 oz), SpO2 97 %. Will CTM and provide interventions as necessary. MARIA INES SALVADOR RN 11/22/2020 16:12 * Plan of Care - Treva Stokes RN - 11/22/2020 0230 EDT Problem: High Fall Risk: Goal: Patient Will Remain Free from Fall-Related Injury Outcome: Ongoing Data: admitted to the díaz around 1130pm. A&Ox3. On room air. Can eat and drink. Came up from ED with antibiotics running instead of fluids for the lactic. Port positional but with back flow of blood. Repeat lactic done after the fluids. Walks to the bathroom. No complaints of pain. Action: oriented to the room. Hourly rounding done. Clustered nursing care. Due meds given. Response: 2nd lactic result remains 3.0. further fluids prescribed. Noted doctor's orders, done. VSS. Independently going to the bathroom. Slept on and off. TREVA STOKES RN 11/22/2020 2:30 documented in this encounter Plan of Treatment Upcoming Encounters Date Type Department Care Team (Late st Contact Info) Description 01/31/2024 13:40 EDT Office Visit [facility] Surgical Oncology - [address] [address] Maeve Morales, [address] [facility], [facility], Level [address] [place] [address] documented as of this encounter Procedures Procedure Name Priority Date/Time Associated Diagnosis Comments DIFFERENTIAL, AUTOMATED MANUAL Today 11/22/2020 6:11 EDT LACTIC ACID Routine 11/22/2020 6:11 EDT COMPLETE BLOOD COUNT AND DIFFERENTIAL Routine 11/22/2020 6:11 EDT BUN Routine 11/22/2020 6:11 EDT ALT Routine 11/22/2020 6:11 EDT AST Routine 11/22/2020 6:11 EDT ALKALINE PHOSPHATASE Routine 11/22/2020 6:11 EDT HEMOGLOBIN A1C Routine 11/22/2020 6:11 EDT CREATININE Routine 11/22/2020 6:11 EDT BILIRUBIN, TOTAL Routine 11/22/2020 6:11 EDT ELECTROLYTES Routine 11/22/2020 6:11 EDT LACTIC ACID STAT 11/22/2020 2:42 EDT ZZCOVID-19 TEST [facility] PCR Today 11/21/2020 22:46 EDT COVID-19 TESTING Routine 11/21/2020 22:4 6 EDT URINE CHEMICAL (DIP) & SEDIMENT (MICRO) WITH REFLEX TO CULTURE STAT 11/21/2020 21:24 EDT BACTERIAL CULTURE, BLOOD STAT 11/21/2020 21:24 EDT XR CHEST PORTABLE 1 VIEW STAT 11/21/2020 21:14 EDT HOLD SST Routine 11/21/2020 20:55 EDT BLOOD BANK HOLD STAT 11/21/2020 20:53 EDT LACTIC ACID WITH REFLEX - USE FOR INITIAL SEPSIS EVALUATION STAT 11/21/2020 20:52 EDT DIFFERENTIAL, AUTOMATED MANUAL Today 11/21/2020 20:52 EDT HOLD BLUE TOP STAT 11/21/2020 20:52 EDT BACTERIAL CULTURE, BLOOD STAT 11/21/2020 20:52 EDT COMPLETE BLOOD COUNT AND DIFFERENTIAL STAT 11/21/2020 20:52 EDT BUN STAT 11/21/2020 20:52 EDT GLUCOSE, SERUM STAT 11/21/2020 20:52 EDT CREATININE STAT 11/21/2020 20:52 EDT ELECTROLYTES STAT 11/21/2020 20:52 EDT documented in this encounter Results * (ABNORMAL) DIFFERENTIAL, AUTOMATED MANUAL (11/22/2020 6:11 EDT) % Neutrophils 34.6 % 11/22/2020 16:27 [facility] % Banded Neutrophils 14.0 % 11/22/2020 16:27 [facility] % Lymphocytes 29.0 % 11/22/2020 16:27 [facility] % Monocytes 11.2 % 11/22/2020 16:27 [facility] % Basophils 2.8 % 11/22/2020 16:27 [facility] % Metamyelocytes 2.8 % 11/23/19 16:27 [facility] % Myelocytes 0.9 % 11/22/2020 16:27 [facility] % Promyelocytes 1.9 % 16:27 [facility] % Blasts 2.8(H) <=0.0 % 11/22/2020 16:27 [facility] Dohle Bodies Present 11/22/2020 16:27 [facility] Toxic Granulation Present 021 16:27 [facility] Absolute Neutrophils 1.95(L) 2.20 - 8.85 K/cmm 11/22/2020 16:27 [facility] Absolute Bands 0.79 K/cmm 11/22/2020 16:27 [facility] Absolute Lymphocytes 1.63 1.09 - 3.30 K/cmm 11/22/2020 16:27 [facility] Absolute Monocytes 0.63 0.10 - 0.80 K/cmm 11/22/2020 16:27 [facility] ABS Basophils 0.16(H) 0.01 - 0.11 K/cmm 11/22/2020 16:27 [facility] Absolute Metamyelocytes 0.16 K/cmm 11/22/2020 16:27 EDT [facility] Absolute Myelocytes 0.05 K/cmm 11/22/2020 16:27 EDT [facility] Absolute Promyelocytes 0.11 K/cmm 11/22/2020 16:27 EDT [facility] Absolute Blasts 0.16(H) <=0.00 K/cmm 11/22/2020 16:27 EDT [facility] Smudge Cells Present 11/22/2020 16:27 EDT [facility] Blood VENOUS BLOOD / Unknown Venipuncture / Unknown 11/22/2020 6:11 EDT 11/22/2020 6:27 EDT Chris Fernandes MD HEMATOLOGY & P F4 ORDERABLES Performing Organization Address [facility] de Phone Number [facility] [address] [place] [address] * (ABNORMAL) LACTIC ACID (11/22/2020 6:11 EDT) Lactic Acid 2.4(HH) <=2.0 mmol/L 11/22/2020 6:43 EDT [facility] Blood VENOUS BLOOD / Unknown Venipuncture / Unknown 11/22/2020 6:11 EDT 11/22/2020 6:26 EDT Kenneth Thomas MD MPH CHEMISTRY & BLOOD G ORDERABLES Performing Organization Address City/[facility] Co de Phone Number [facility] [address] [place] [address] * (ABNORMAL) COMPLETE BLOOD COUNT AND DIFFERENTIAL (11/22/2020 6:11 EDT) WBC 5.63 4.00 - 12.40 K/cmm 11/22/2020 6:40 EDT [facility] RBC 2.91(L) 3.86 - 5.04 M/cmm 11/22/2020 6:40 EDT [facility] Hemoglobin 8.9(L) 11.6 - 15.2 gm/dL 11/22/2020 6:40 T [facility] HCT 26.1(L) 34.9 - 44.4 % 11/22/2020 6:40 [facility] MCV 90 81 - 98 fl 11/22/2020 6:40 [facility] MCH 30.6 26.7 - 33.3 pg 11/22/2020 6:40 [facility] MCHC 34.1 32.1 - 35.9 gm/dL 11/22/2020 6:40 [facility] RDW-CV 16.8(H) <14.7 % 11/22/2020 6:40 [facility] RDW-SD 53.7(H) <50.4 fl 11/22/2020 6:40 [facility] PLT 108(L) 141 - 377 K/cmm 11/22/2020 6:40 [facility] MPV 10.5 9.5 - 12.7 fl 11/22/2020 6:40 [facility] Nucleated Red Blood Cells 1 /100 WBC 11/22/2020 6:40 [facility] Type of Differential: Manual 11/22/2020 6:40 [facility] Blood VENOUS BLOOD / Unknown Venipuncture / Unknown 11/22/2020 6:11 EDT 11/22/2020 6:27 EDT Chris Fernandes MD PACKAGES & DNA PROBE ORDERABLES [facility] [address] [place] [address] * (ABNORMAL) CREATININE (11/22/2020 6:11 EDT) Creatinine 0.32(L) 0.52 - 1.04 mg/dL 11/22/2020 6:40 [facility] eGFR 136 >60 mL/min/1.7 3m2 11/22/2020 6:40 [facility] Comment:eGFR calculated mata asif CKD-EPI equation for non- Americans. Multiply eGFR by 1.16 for patients. Blood VENOUS BLOOD / Unknown Venipuncture / Unknown 11/22/2020 6:11 EDT 11/22/2020 6:26 EDT Chris Fernandes MD CHEMISTRY & BL OOD GAS ORDERABLES Performing Organization Address City/[facility] Co de Phone Number [facility] [address] [place] [address] * (ABNORMAL) BUN (11/22/2020 6:11 EDT) BUN 5(L) 10 - 26 mg/dL 11/22/2020 6:40 EDT [facility] Blood VENOUS BLOOD / Unknown Venipuncture / Unknown 11/22/2020 6:11 EDT 11/22/2020 6:26 EDT Chris Fernandes MD CHEMISTRY & BL OOD GAS ORDERABLES Performing Organization Address [facility] de Phone Number [facility] [address] [place] [address] * ELECTROLYTES (11/22/2020 6:11 EDT) Sodium 138 136 - 145 mEq/L 11/22/2020 6:40 EDT [facility] Potassium 3.5 3.5 - 5.0 mEq/L 11/22/2020 6:40 EDT [facility] Chloride 104 96 - 110 mEq/L 11/22/2020 6:40 EDT [facility] CO2 Total 26 22 - 32 mEq/L 11/22/2020 6:40 EDT [facility] Blood VENOUS BLOOD / Unknown Venipuncture / Unknown 11/22/2020 6:11 EDT 11/22/2020 6:26 EDT Chris Fernandes MD CHEMISTRY & BL OOD GAS ORDERABLES Performing Organization Address City/[facility]/ZIP Co de Phone Number [facility] [address] [place] [address] * BILIRUBIN, TOTAL (11/22/2020 6:11 EDT) Bilirubin, Total <0.5 <1.4 mg/dL 11/22/2020 6:40 EDT [facility] Blood VENOUS BLOOD / Unknown Venipuncture / Unknown 11/22/2020 6:11 EDT 11/22/2020 6:26 EDT Chris Fernandes MD CHEMISTRY & BL OOD GAS ORDERABLES Performing Organization Address City/[facility]/ZIP Co de Phone Number [facility] [address] [place] [address] * (ABNORMAL) ALKALINE PHOSPHATASE (11/22/2020 6:11 EDT) Pathologist [facility] [place] Alkaline Phosphatase 131(H) 38 - 126 U/L 11/22/2020 6:40 EDT [facility] Blood VENOUS BLOOD / Unknown Venipuncture / Unknown 11/22/2020 6:11 EDT 11/22/2020 6:26 EDT Chris Fernandes MD CHEMISTRY & BL OOD GAS ORDERABLES Performing Organization Address City/[facility]/ZIP Co de Phone Number [facility] [address] [place] [address] * AST (11/22/2020 6:11 EDT) Pathologist [facility] [place] AST 34 15 - 46 U/L 11/22/2020 6:40 EDT [facility] Blood VENOUS BLOOD / Unknown Venipuncture / Unknown 11/22/2020 6:11 EDT 11/22/2020 6:26 EDT Chris Fernandes MD CHEMISTRY & BL OOD GAS ORDERABLES [facility] [address] [place] [address] * (ABNORMAL) ALT (11/22/2020 6:11 EDT) ALT 57(H) <35 U/L 11/22/2020 6:40 EDT [facility] Blood VENOUS BLOOD / Unknown Venipuncture / Unknown 11/22/2020 6:11 EDT 11/22/2020 6:26 EDT Chris Fernandes MD CHEMISTRY & BL OOD GAS ORDERABLES Performing Organization Address [facility] de Phone Number [facility] [address] [place] [address] * (ABNORMAL) HEMOGLOBIN A1C (11/22/2020 6:11 EDT) Hemoglobin A1c 8.1(H) <5.7 % 11/25/2020 15:26 EDT [facility] Comment: New methodology in use 08/14/2020 Glycemic Status References: Normal: ??<5.7% Pre-Diabetes: ??5.7% - 6.4% Diagnostic of Diabetes: ??> or = 6.5% (if confirmed) Goals for glycemic control in diabetics (ADA 2017): <7.0% target for non adults with diabetes. <7.5% target for children and adolescents with Type I Diabetes. More or less stringent targets may be appropriate for individual patients. Est Avg Glucose 186 mg/dL 15:26 EDT [facility] Comment:The eAG represents t he A1c result expressed as average glucose in mg/dL. Blood VENOUS BLOOD / Unknown Venipuncture / Unknown 11/22/2020 6:11 EDT 11/22/2020 6:27 EDT Chris Fernandes MD CHEMISTRY & BL OOD GAS ORDERABLES Performing Organization Address [facility] Co de Phone Number [facility] [address] [place] [address] * (ABNORMAL) LACTIC ACID (11/22/2020 2:42 EDT) Lactic Acid 3.0(HH) <=2.0 mmol/L 11/22/2020 3:21 EDT [facility] Blood VENOUS BLOOD / Unknown Venipuncture / Unknown 11/22/2020 2:42 EDT 11/22/2020 2:51 EDT Chris Fernandes MD CHEMISTRY & BL OOD GAS ORDERABLES Performing Organization Address [facility] Co de Phone Number [facility] [address] [place] [address] * COVID-19 TEST [facility] PCR (11/21/2020 22:46 EDT) Swab BOTH ANTERIOR NARES / Unknown Swab / Unknown 11/21/2020 22:46 EDT 11/21/2020 22:51 EDT Sandro Marquez MD MICROBIOLOGY - GENER AL ORDERABLES Performing Organization Address [facility] Co de Phone Number [facility] [address] [place] [address] * COVID-19 TESTING (11/21/2020 22:46 EDT) COVID-19 rt-PCR Result Negative Negative 11/22/2020 2:14 EDT [facility] Comment: This test has not [...] clinical observations, patient history, and epidemiological information. Performed on the [employer] Fusion instrument Performing Lab [place] [facility] 11/22/2020 2:14 [facility] Swab BOTH ANTERIOR NARES / Unknown Swab / Unknown 11/21/2020 22:46 EDT 11/21/2020 22:51 EDT Sandro Marquez MD MICROBIOLOGY - GENER AL ORDERABLES [facility] [address] [place] [address] * (ABNORMAL) URINE CHEMICAL (DIP) & SEDIMENT (MICRO) WITH REFLEX TO CULTURE (11/21/2020 21:24 EDT) Color UA Yellow Colorless, Yellow 11/21/2020 21:35 [facility] Clarity UA Clear Clear 11/21/2020 21:35 [facility] Glucose UA 1+(A) Negative 11/21/2020 21:35 [facility] Bilirubin UA Negative Negative 11/21/2020 21:35 [facility] Ketones UA Negative Negative 11/21/2020 21:35 [facility] Specific [place], Urine 1.016 1.001 - 1.035 11/21/2020 21:35 [facility] Blood UA Negative Negative 11/21/2020 21:35 [facility] Urobilinogen UA Normal Normal mg/dL 021 21:35 [facility] Nitrite UA Negative Negative 11/21/2020 21:35 [facility] Leukocyte Esterase UA Negative Negative 11/21/2020 21:35 [facility] SERVICES Protein UA Negative Negative 11/21/2020 21:35 [facility] pH, UA 8.0 4.6 - 8.0 11/21/2020 21:35 [facility] Urine RBC Count, Auto 0 - 2 0 - 2 Cells/HPF 11/21/2020 21:35 EDT [facility] Urine WBC Count, Auto 0 - 3 0 - 3 Cells/HPF 11/21/2020 21:35 EDT [facility] Urine Squamous Count, Auto Few(A) None Seen Cells/HPF 11/21/2020 21:35 EDT [facility] Urine Hyaline Cast Count, Auto <=10 <=10 Casts/LPF 11/21/2020 21:35 EDT [facility] Urine Bacteria Count, Auto None Seen None Seen Bacteria/HPF 11/21/2020 21:35 EDT [facility] Urine URINE SPECIMEN COLLECTION, CLEAN CATCH / Unknown Urine Collect / Unknown 11/21/2020 21:24 EDT 11/21/2020 21:28 EDT Narrative [facility] - 11/21/2020 21:35 EDT NOTE: Reflex to Urine Culture test is not indicated based on Urine Sediment Analysis results. Urine Sediment Analysis results are unreliable on urines that are unrefrigerated for >2 hrs or refrigerated >8 hrs. Sandro Marquez MD URINALYSIS ORDERABLE S Performing Organization Address City/[facility]/ZIP Co de Phone Number [facility] [address] [place] [address] * BACTERIAL CULTURE, BLOOD (11/21/2020 21:24 EDT) Organism ID No Growth at 5 days 11/26/2020 21:46 EDT [facility] Blood VENOUS BLOOD / Unknown Blood Culture / Unknown 11/21/2020 21:24 EDT 11/21/2020 21:43 EDT Sandro Marquez MD MICROBIOLOGY - GENER AL ORDERABLES Performing Organization Address [facility] Co de Phone Number [facility] [address] [place] [address] * XR CHEST PORTABLE 1 VIEW (11/21/2020 21:14 EDT) Anatomical Region Laterality Modality Computed Radiogr aphy 11/22/2020 7:20 EDT Impressions 11/22/2020 7:20 EDT 1. ??No acute cardiopulmonary process. 2. ??Apparent circumscribed lucency involving the medial aspect of the right clavicle. This could be artifactual due to superimposition of structures, but an underlying bone lesion is possible. If clinically indicated, dedicated radiographs of the right clavicle could be considered to see if this finding persists. I have personally reviewed the images and the above interpretation and agree with the findings. Narrative 11/22/2020 7:20 EDT XR CHEST PORTABLE 1 VIEW ??11/21/2020 9:05 PM CLINICAL HISTORY/COMMENTS: Sepsis; neutropenic fever COMPARISON: CT chest 07/18/2020. FINDINGS: Single portable AP view of the chest at 75 degrees. Lines/tubes: ??Unremarkable course of the right internal jugular chest port. Soft tissues, bones and extrathoracic findings: There is an apparent well circumscribed lucency involving the medial aspect of the right clavicle, which is possibly artifactual. Cardiac and mediastinal contours: The cardiomediastinal contour is normal. Tip of the right internal jugular central venous chest port terminates in the right atrium. Lungs: Lung volumes are slightly low but the lungs are otherwise clear and the pulmonary vasculature is normal. Pleura: There are no visible pleural abnormalities on this mostly upright chest radiograph. Procedure Note Lana Jordan MD - 11/22/2020 XR CHEST PORTABLE 1 VIEW 11/21/2020 9:05 PM CLINICAL HISTORY/COMMENTS: Sepsis; neutropenic fever COMPARISON: CT chest 07/18/2020. FINDINGS: Single portable AP view of the chest at 75 degrees. Lines/tubes: Unremarkable course of the right internal jugular chestport. Soft tissues, bones and extrathoracic findings: There is an apparent wellcircumscribed lucency involving the medial aspect of the right clavicle,which is possibly artifactual. Cardiac and mediastinal contours: The cardiomediastinal contour is normal.Tip of the right internal jugular central venous chest port terminates inthe right atrium. Lungs: Lung volumes are slightly low but the lungs are otherwise clear andthe pulmonary vasculature is normal. Pleura: There are no visible pleural abnormalities on this mostly uprightchest radiograph. IMPRESSION 1. No acute cardiopulmonary process. 2. Apparent circumscribed lucency involving the medial aspect of theright clavicle. This could be artifactual due to superimposition ofstructures, but an underlying bone lesion is possible. If clinicallyindicated, dedicated radiographs of the right clavicle could be consideredto see if this finding persists. I have personally reviewed the images and the above interpretation andagree with the findings. Sandro Marquez MD IMG DIAGNOSTIC IMAGI NG ORDERABLES * HOLD SST (11/21/2020 20:55 EDT) Hold Hold 11/21/2020 22:16 EDT [facility] Blood VENOUS BLOOD / Unknown Venipuncture / Unknown 11/21/2020 20:55 EDT 11/21/2020 21:01 EDT Hitesh Bashir MD LAB INFO SERV ICE AND SUPPORT & PHONE RESULT Performing Organization Address [facility] Co de Phone Number [facility] [address] [place] [address] * BLOOD BANK HOLD (11/21/2020 20:53 EDT) Hold BB Spec will exp at 23:59, 3 days from collect date 11/21/2020 21:34 EDT [facility] Blood VENOUS BLOOD / Unknown Venipuncture / Unknown 11/21/2020 20:53 EDT 11/21/2020 21:33 EDT Sandro Marquez MD BLOOD BANK TESTS [facility] [address] [place] [address] * (ABNORMAL) DIFFERENTIAL, AUTOMATED MANUAL (11/21/2020 20:52 EDT) % Neutrophils 32.7 % 11/21/2020 22:35 EDT [facility] % Banded Neutrophils 15.0 % 11/21/2020 22:35 EDT [facility] % Lymphocytes 15.9 % 11/21/2020 22:35 [facility] % Atypical Lymphocytes 2.7 % 11/21/2020 22:35 [facility] % Monocytes 23.9 % 11/21/2020 22:35 [facility] % Metamyelocytes 7.1 % 11/22/19 22:35 [facility] % Myelocytes 0.9 % 11/21/2020 22:35 [facility] % Promyelocytes 1.8 % 22:35 [facility] Dohle Bodies Present 11/21/2020 22:35 [facility] Toxic Granulation Present 021 22:35 [facility] Absolute Neutrophils 1.52(L) 2.20 - 8.85 K/cmm 11/21/2020 22:35 [facility] Absolute Bands 0.70 K/cmm 11/21/2020 22:35 [facility] Absolute Lymphocytes 0.74(L) 1.09 - 3.30 K/cmm 11/21/2020 22:35 [facility] Absolute Atypical Lymphocytes 0.13 K/cmm 11/21/2020 22:35 [facility] Absolute Monocytes 1.11(H) 0.10 - 0.80 K/cmm 11/21/2020 22:35 [facility] Absolute Metamyelocytes 0.33 K/cmm 11/21/2020 22:35 [facility] Absolute Myelocytes 0.04 K/cmm 11/21/2020 22:35 [facility] Absolute Promyelocytes 0.08 K/cmm 11/21/2020 22:35 [facility] Blood VENOUS BLOOD / Unknown Venipuncture / Unknown 11/21/2020 20:52 EDT 11/21/2020 21:01 EDT Chance Thien CAVAZOS HEMATOLOGY & PF4 ORD ERABLES [facility] [address] [place] [address] * HOLD BLUE TOP (11/21/2020 20:52 EDT) Hold Hold 11/21/2020 22:31 EDT [facility] Blood VENOUS BLOOD / Unknown Venipuncture / Unknown 11/21/2020 20:52 EDT 11/21/2020 21:28 EDT Narrative Authorizing Provider Result Anderson Marquez MD LAB INFO SERVICE AND SUPPORT & PHONE RESULT [facility] [address] [place] [address] * BACTERIAL CULTURE, BLOOD (11/21/2020 20:52 EDT) [facility] Organism ID No Growth at 5 days 11/26/2020 21:16 EDT [facility] Blood VENOUS BLOOD / Unknown Blood Culture / Unknown 11/21/2020 20:52 EDT 11/21/2020 21:02 EDT Narrative Authorizing Provider Result Anderson Marquez MD MICROBIOLOGY - GENER AL ORDERABLES Performing Organization Address [facility]/ZIP Co de Phone Number [facility] [address] [place] [address] * (ABNORMAL) LACTIC ACID WITH REFLEX - USE FOR INITIAL SEPSIS EVALUATION (11/21/2020 20:52 EDT) [facility] Lactic Acid 3.0(HH) <=2.0 mmol/L 11/21/2020 21:18 EDT [facility] Blood VENOUS BLOOD / Unknown Venipuncture / Unknown 11/21/2020 20:52 EDT 11/21/2020 21:01 EDT Narrative Authorizing Provider Result Anderson Marquez MD CHEMISTRY & BLOOD GA S ORDERABLES Performing Organization Address City/[facility]/ZIP Co de Phone Number [facility] [address] [place] [address] * (ABNORMAL) GLUCOSE, SERUM (11/21/2020 20:52 EDT) Pathologist [facility] Glucose 161(H) 70 - 100 mg/dL 11/21/2020 21:15 EDT [facility] Blood VENOUS BLOOD / Unknown Venipuncture / Unknown 11/21/2020 20:52 EDT 11/21/2020 21:01 EDT Narrative Authorizing Provider Result Anderson Marquez MD CHEMISTRY & BLOOD GA S ORDERABLES Performing Organization Address City/[facility]/ZIP Co de Phone Number [facility] [address] [place] [address] * (ABNORMAL) CREATININE (11/21/2020 20:52 EDT) Creatinine 0.36(L) 0.52 - 1.04 mg/dL 11/21/2020 21:15 EDT [facility] eGFR 131 >60 mL/min/1.7 3m2 11/21/2020 21:15 EDT [facility] Comment:eGFR calculated mata asif CKD-EPI equation for non- Americans. Multiply eGFR by 1.16 for patients. Blood VENOUS BLOOD / Unknown Venipuncture / Unknown 11/21/2020 20:52 EDT 11/21/2020 21:01 EDT Narrative Authorizing Provider Result Anderson Marquez MD CHEMISTRY & BLOOD GA S ORDERABLES Performing Organization Address [facility]/ZIP Co de Phone Number [facility] [address] [place] [address] * (ABNORMAL) BUN (11/21/2020 20:52 EDT) BUN 5(L) 10 - 26 mg/dL 11/21/2020 21:15 EDT [facility] Blood VENOUS BLOOD / Unknown Venipuncture / Unknown 11/21/2020 20:52 EDT 11/21/2020 21:01 EDT Narrative Authorizing Provider Result Anderson Marquez MD CHEMISTRY & BLOOD GA S ORDERABLES Performing Organization Address City/[facility]/ZIP Co de Phone Number [facility] [address] [place] [address] * (ABNORMAL) ELECTROLYTES (11/21/2020 20:52 EDT) Sodium 136 136 - 145 mEq/L 11/21/2020 21:15 EDT [facility] Potassium 3.2(L) 3.5 - 5.0 mEq/L 11/21/2020 21:15 [facility] Chloride 100 96 - 110 mEq/L 11/21/2020 21:15 T [facility] CO2 Total 26 22 - 32 mEq/L 11/21/2020 21:15 [facility] Blood VENOUS BLOOD / Unknown Venipuncture / Unknown 11/21/2020 20:52 EDT 11/21/2020 21:01 EDT Sandro Marquez MD CHEMISTRY & BLOOD GA S ORDERABLES Performing Organization Address City/State/[facility] Co de Phone Number [facility] [address] [place] [address] * (ABNORMAL) COMPLETE BLOOD COUNT AND DIFFERENTIAL (11/21/2020 20:52 EDT) WBC 4.65 4.00 - 12.40 K/cmm 11/21/2020 22:03 [facility] RBC 3.25(L) 3.86 - 5.04 M/cmm 11/21/2020 22:03 [facility] Hemoglobin 10.0(L) 11.6 - 15.2 gm/dL 11/21/2020 22:03 [facility] HCT 28.6(L) 34.9 - 44.4 % 11/21/2020 22:03 [facility] MCV 88 81 - 98 fl 11/21/2020 22:03 [facility] MCH 30.8 26.7 - 33.3 pg 11/21/2020 22:03 [facility] MCHC 35.0 32.1 - 35.9 gm/dL 11/21/2020 22:03 [facility] RDW-CV 16.4(H) <14.7 % 11/21/2020 22:03 EDT [facility] RDW-SD 51.6(H) <50.4 fl 11/21/2020 22:03 EDT [facility] PLT 138(L) 141 - 377 K/cmm 11/21/2020 22:03 T [facility] MPV 10.7 9.5 - 12.7 fl 11/21/2020 22:03 T [facility] Nucleated Red Blood Cells 2 /100 WBC 11/21/2020 22:03 EDT [facility] Type of Differential: Manual 11/21/2020 22:03 T [facility] Blood VENOUS BLOOD / Unknown Venipuncture / Unknown 11/21/2020 20:52 EDT 11/21/2020 21:01 EDT Sandro Marquez MD PACKAGES & DNA PROBE ORDERABLES [facility] [address] [place] [address] documented in this encounter Visit Diagnoses Diagnosis Fever and chills- Primary Fever, unspecified Sepsis (HCC-CMS) Fever and chills Fever, unspecified Malignant neoplasm of right breast in female, estrogen receptor negative, unspecified site of breast (HCC-CMS) Sepsis without acute organ dysfunction, due to unspecified organism (HCC-CMS) documented in this encounter Admitting Diagnoses Diagnosis Fever and chills Fever, unspecified documented in this encounter Administered Medications Inactive Administered Medications - up to 3 most recent administrations Medication Order MAR Action Action Date Dose Rate Site acetaminophen (TYLENOL) 500 mg tablet 1 dose, Starting on Tue11/21/20 at 2059, Until 11/23/20 at 1340 acetaminophen (TYLENOL) tablet 1,000 mg 1,000 mg, oral, NOW X1, 1 dose, On Tue11/21/20 at 2100, STAT Given 11/21/2020 21:02 EDT 1,000 mg acetaminophen (TYLENOL) tablet 325 mg 325 mg, oral, EVERY 4 HOURS PRN, Starting on 11/22/20 at 0910, Until 11/23/20 at 1340, Pain, Routine Given 11/23/2020 10:21 EDT 325 mg Given 11/22/2020 17:55 EDT 325 mg Given 11/22/2020 9:59 EDT 325 mg cefepime (MAXIPIME) 2,000 mg in sodium chloride (NS MBP) 50 mL IVPB 2,000 mg, intravenous, Administer over 30 Minutes, NOW X1, 1 dose, On Tue11/21/20 at 2115, Controlled antibiotic: has ID approved? No: ED Patient. If admitted, further doses required ID approval, Type of Therapy: Empiric, Suspected Indication (Select all that apply): Sepsis unknown source, ID Consult: No, STAT Given 11/21/2020 21:42 EDT 2,000 mg cefepime (MAXIPIME) 2,000 mg in sodium chloride (NS MBP) 50 mL IVPB 2,000 mg, intravenous, Administer over 30 Minutes, EVERY 8 HOURS, 6 doses, First dose (after last reorder) on 11/22/20 at 0600, Last dose on Tue11/23/20 at 2200, Controlled antibiotic: has ID approved? No: After 10pm, Before 8am, Type of Therapy: Empiric, Suspected Indication (Select all that apply): Sepsis unknown source, ID Consult: No, STAT Given 11/22/2020 5:28 EDT 2,0 00 mg electrolyte-A (PLASMALYTE-A) bolus 1,000 mL 1,000 mL, intravenous, NOW X1, 1 dose, On Tue11/21/20 at 2215 Given 11/22/2020 0:06 EDT 1,000 mL electrolyte-A (PLASMALYTE-A) bolus 1,000 mL 1,000 mL, intravenous, NOW X1, 1 dose, On Tue11/22/20 at 0415 Given 11/22/2020 4:01 EDT 1,000 mL enoxaparin (LOVENOX) injection 40 mg 40 mg, subcutaneous, DAILY, First dose on 11/22/20 at 0800, Until Discontinued, Routine Given 11/23/2020 9:20 EDT 40 mg Given 11/22/2020 8:58 EDT 40 mg escitalopram oxalate (LEXAPRO) tablet 20 mg 20 mg, oral, DAILY, First dose on 11/22/20 at 0900, Until Discontinued, Routine Given 11/23/2020 9:19 EDT 20 mg Given 11/22/2020 8:58 EDT 20 mg lactated ringers (LR) infusion at 125 mL/hr, intravenous, CONTINUOUS, Starting on 11/22/20 at 0415, Until 11/23/20 at 1340, Routine New Bag 11/23/2020 6:34 EDT 125 mL/hr New Bag 11/22/2020 22:21 EDT 125 mL/hr New Bag 11/22/2020 14:35 EDT 125 mL/hr loratadine (CLARITIN) tablet 10 mg 10 mg, oral, DAILY, First dose on 11/22/20 at 0900, Until Discontinued, Routine Given 11/23/2020 9:19 EDT 10 mg Given 11/22/2020 8:58 EDT 10 mg melatonin tablet 3 mg 3 mg, oral, AT BEDTIME PRN, Starting on Tue11/22/20 at 1643, Until 11/23/20 at 1340, sleep, Routine pantoprazole (PROTONIX) tablet 40 mg 40 mg, oral, DAILY, First dose on Tue11/22/20 at 0900, Until Discontinued Given 11/23/2020 9:19 EDT 40 mg Given 11/22/2020 8:58 EDT 40 mg polyethylene glycol 3350 (MIRALAX) packet 17 g 17 g, oral, DAILY PRN, Starting on 11/22/20 at 1643, Until 11/23/20 at 1340, Constipation, Routine potassium chloride (KLOR-CON) packet 40 mEq 40 mEq, oral, NOW X1, 1 dose, On Tue11/21/20 at 2330, Routine Given 11/22/2020 0:06 EDT 40 mEq vancomycin (VANCOCIN) 1,250 mg in dextrose 5% (D5W) 250 mL IVPB 1,250 mg (rounded from 1,308 mg = 15 mg/kg ? 87.2 kg), intravenous, Administer over 75 Minutes, EVERY 12 HOURS, 14 doses, First dose on Tue11/22/20 at 1100, Last dose on Tue11/28/20 at 2300, Type of Therapy: Empiric, Suspected Indication (Select all that apply): Sepsis or septic shock of unknown source, ID Consult: No, STAT Given 11/22/2020 11:12 EDT 1,250 mg vancomycin (VANCOCIN) 1,750 mg in dextrose 5% (D5W) 500 mL IVPB 1,750 mg (rounded from 1,724 mg = 20 mg/kg ? 86.2 kg), intravenous, Administer over 105 Minutes, NOW X1, 1 dose, On Tue11/21/20 at 2215, Type of Therapy: Empiric, Suspected Indication (Select all that apply): Sepsis or septic shock of unknown source, ID Consult: No, STAT Given 11/21/2020 23:05 EDT 1,750 mg varenicline (CHANTIX) tablet 1 mg 1 mg, oral, 2 TIMES DAILY, First dose on 11/22/20 at 0000, Until Discontinued Given 11/23/2020 9:19 EDT 1 mg Given 11/22/2020 20:41 EDT 1 mg Given 11/22/2020 8:58 EDT 1 mg documented in this encounter Active and Recently Administered Medications Times are shown in EDT. Scheduled Medication Order 11/21/2020 11/22/2020 11/23/2020 acetaminophen (TYLENOL) tablet 1,000 mg (COMPLETED) 1,000 mg, oral, NOW X1, 1 dose, On Tue11/21/20 at 2100, STAT 2101 (Given - Provider: Kenia Contreras RN) cefepime (MAXIPIME) 2,000 mg in sodium chloride (NS MBP) 50 mL IVPB (COMPLETED) 2,000 mg, intravenous, Administer over 30 Minutes, NOW X1, 1 dose, On Tue11/21/20 at 2115, Controlled antibiotic: has ID approved? No: ED Patient. If admitted, further doses required ID approval, Type of Therapy: Empiric, Suspected Indication (Select all that apply): Sepsis unknown source, ID Consult: No, STAT 2141 (Given - Provider: Kenia Contreras RN) cefepime (MAXIPIME) 2,000 mg in sodium chloride (NS MBP) 50 mL IVPB (CANCELED) 2,000 mg, intravenous, Administer over 30 Minutes, EVERY 8 HOURS, 6 doses, First dose (after last reorder) on 11/22/20 at 0600, Last dose on 11/23/20 at 2200, Controlled antibiotic: has ID approved? No: After 10pm, Before 8am, Type of Therapy: Empiric, Suspected Indication (Select all that apply): Sepsis unknown source, ID Consult: No, STAT 0528 (Given - Provider: Treva Stokes RN) electrolyte-A (PLASMALYTE-A) bolus 1,000 mL (COMPLETED) 1,000 mL, intravenous, NOW X1, 1 dose, On Tue11/21/20 at 2215 0006 (Given - Provider: Treva Stokes RN) electrolyte-A (PLASMALYTE-A) bolus 1,000 mL (COMPLETED) 1,000 mL, intravenous, NOW X1, 1 dose, On Tue11/22/20 at 0415 0401 (Given - Provider: Treva Stokes RN) enoxaparin (LOVENOX) injection 40 mg 40 mg, subcutaneous, DAILY, First dose on Tue11/22/20 at 0800, Until Discontinued, Routine 0858 (Given - Provider: Maria Ines Salvador RN) 0920 (Given - Provider: Maria Ines Salvador RN) escitalopram oxalate (LEXAPRO) tablet 20 mg 20 mg, oral, DAILY, First dose on Tue11/22/20 at 0900, Until Discontinued, Routine 0858 (Given - Provider: Maria Ines Salvador RN) 0919 (Given - Provider: Maria Ines Salvador RN) loratadine (CLARITIN) tablet 10 mg 10 mg, oral, DAILY, First dose on Tue11/22/20 at 0900, Until Discontinued, Routine 0858 (Given - Provider: Maria Ines Salvador RN) 0919 (Given - Provider: Maria Ines Salvador RN) pantoprazole (PROTONIX) tablet 40 mg 40 mg, oral, DAILY, First dose on Tue11/22/20 at 0900, Until Discontinued 0858 (Given - Provider: Maria Ines Salvador RN) 09 (Given - Provider: Maria Ines Salvador RN) potassium chloride (KLOR-CON) packet 40 mEq (COMPLETED) 40 mEq, oral, NOW X1, 1 dose, On Tue11/21/20 at 2330, Routine 0006 (Given - Provider: Treva Stokes RN) vancomycin (VANCOCIN) 1,250 mg in dextrose 5% (D5W) 250 mL IVPB (CANCELED) 1,250 mg (rounded from 1,308 mg = 15 mg/kg ? 87.2 kg), intravenous, Administer over 75 Minutes, EVERY 12 HOURS, 14 doses, First dose on 11/22/20 at 1100, Last dose on Tue11/28/20 at 2300, Type of Therapy: Empiric, Suspected Indication (Select all that apply): Sepsis or septic shock of unknown source, ID Consult: No, STAT 1112 (Given - Provider: Maria Ines Salvador RN) vancomycin (VANCOCIN) 1,750 mg in dextrose 5% (D5W) 500 mL IVPB (COMPLETED) 1,750 mg (rounded from 1,724 mg = 20 mg/kg ? 86.2 kg), intravenous, Administer over 105 Minutes, NOW X1, 1 dose, On Tue11/21/20 at 2215, Type of Therapy: Empiric, Suspected Indication (Select all that apply): Sepsis or septic shock of unknown source, ID Consult: No, STAT 2305 (Given - Provider: Kenia Contreras RN) varenicline (CHANTIX) tablet 1 mg 1 mg, oral, 2 TIMES DAILY, First dose on 11/22/20 at 0000, Until Discontinued 0006 (Given - Provider: Treva Stokes RN)0858 (Given - Provider: Maria Ines Salvador RN)2041 (Given - Provider: Martha Zhang, RADHA) 0919 (Given - Provider: Maria Ines Salvador RN) Continuous Medication Order 11/21/2020 11/22/2020 11/23/2020 lactated ringers (LR) infusion at 125 mL/hr, intravenous, CONTINUOUS, Starting on 11/22/20 at 0415, Until 11/23/20 at 1340, Routine 0620 (New Bag - Provider: Treva Stokes RN)1435 (New Bag - Provider: Maria Ines Salvador RN)2221 (New Bag - Provider: Martha Zhang, RADHA) 0634 (New Bag - Provider: Shefali Servin RN) PRN Medication Order 11/21/2020 11/22/2020 11/23/2020 acetaminophen (TYLENOL) tablet 325 mg 325 mg, oral, EVERY 4 HOURS PRN, Starting on 11/22/20 at 0910, Until 11/23/20 at 1340, Pain, Routine 0959 (Given - Provider: Maria Ines Salvador RN)1755 (Given - Provider: Maria Ines Salvador RN) 1021 (Given - Provider: Maria Ines Salvador RN) lidocaine (PF) 10 mg/mL (1 %) injection 2 mg 2 mg, intradermal, PRN, 4 doses, Starting on 11/21/20 at 2344, Until 11/23/20 at 1340, peripheral intravenous catheter placement, Routine melatonin tablet 3 mg 3 mg, oral, AT BEDTIME PRN, Starting on 11/22/20 at 1643, Until 11/23/20 at 1340, sleep, Routine polyethylene glycol 3350 (MIRALAX) packet 17 g 17 g, oral, DAILY PRN, Starting on 11/22/20 at 1643, Until 11/23/20 at 1340, Constipation, Routine ramelteon (ROZEREM) tablet 8 mg 8 mg, oral, AT BEDTIME PRN, Starting on 11/21/20 at 2344, Until 11/23/20 at 1340, Sleep, Routine No Frequency Medication Order 11/21/2020 11/22/2020 11/23/2020 acetaminophen (TYLENOL) 500 mg tablet 1 dose, Starting on 11/21/20 at 2059, Until 11/23/20 at 1340 documented in this encounter Orders Medications Ordered That Juanito ht Not Have Been Administered Count Last Ordered Date First Ordered Date melatonin tablet 3 mg 1 11/22/2020 polyethylene glycol 3350 ([place] RALAX) packet 17 g 1 11/22/2020 vancomycin (VANCOCIN) 1,750 mg in dextrose 5% (D5W) 500 mL IVPB 1 11/22/2020 acetaminophen (TYLENOL) 500 mg tablet 1 01/2021 amLODIPine (NORVASC) tablet 2.5 mg 1 2020 lidocaine (PF) 10 mg/mL (1 % ) injection 2 mg 1 11/21/2020 ramelteon (ROZEREM) tablet 8 mg 1 Diet Count Last Ordered Date First Orde red Date DISCHARGE DIET 1 11/23/2020 Nursing Count Last Ordered Date First Orde red Date ACTIVITY INSTRUCTIONS 1 11/23/2020 BATHING INSTRUCTIONS 1 11/23/2020 DRIVING INSTRUCTIONS 1 11/23/2020 Admission Count Last Ordered Date First Orde red Date INITIATE OBSERVATION STATUS 1 11/21/2020 Transfer Count Last Ordered Date First Orde red Date ED BED REQUEST 1 11/21/2020 Discharge Count Last Ordered Date First Orde red Date DISCHARGE PATIENT 1 11/23/2020 Legal Count Last Ordered Date First Orde red Date MISCELLANEOUS DISCHARGE INSTRUCTIONS 1 11/13 documented in this encounter Care Teams Sales And Marketing Executive Relationship Specialty Start Date End Date Batsheva Lira FNP [address] [phone] PCP - General 02/19/20 07/21/22 documented as of this encounter
--- OUTSIDE RECORDS SUMMARY | 2023-12-10 17:43 | XMS_ITS | Encounter Summary ---
Author Organization [facility] Address [address] [place] [address] Care Team Providers Care Lathe Machine Operator Name Role Phone Batsheva Lira JOHN Primary Care Provider [phone] Reason for Visit * Reason Comments Chemotherapy And Provider Visit Encounter Details Date Type Department Care Team (Latest Contact Info) Description 10/30/2020 8:19 EDT - 10/30/2020 23:59 EDT Hospital Encounter [facility] Hematology & Oncology - [address] [place] [address] [place], [place] [address] Malignant neoplasm of upper-inner quadrant of left [...] documented in this encounter Progress Notes * Sofia Jade RN - 10/30/2020 0882 EDT Out-patient Chemotherapy Note Patient presents to clinic today for cycle # 6, day # 1 of PACLITAXEL Q3W + CARBOPLATIN > AC treatment plan. Reviewed lab results with patient CBC: Lab Results Component Value Date WBC 6.81 10/30/2020 HGB 12.5 10/30/2020 HCT 36.8 10/30/2020 PLT 204 10/30/2020 NEUTROABS 4.10 10/30/2020 Chemistry: Lab Results Component Value Date NA 139 10/30/2020 K 4.0 10/30/2020 BUN 12 10/30/2020 CREATININE 0.40 (L) 10/30/2020 CALCIUM 9.3 10/30/2020 MG 1.9 10/30/2020 LFT: Lab Results Component Value Date TBIL <0.5 10/30/2020 ALKPHOS 162 (H) 10/30/2020 AST 51 (H) 10/30/2020 ALT 84 (H) 10/30/2020 Cardiac imaging report from 10/08/2020 estimates LVEF > 65%. Parameters for today? s treatment met. Patient noted with single IVAD for access. IV flushed, site patent, unremarkable and without redness and brisk blood return noted before and after all chemotherapy and/or biotherapy infusions. Patient received pre-meds Aloxi, Emend, and Dexamethasone IV; Doxorubicin IVP given over 5 min through FFIV and Cyclophosphamide given over 30 min per protocol (see MAR). Neulasta Onpro device applied to Left Upper Arm (see MAR). Device operation reviewed, declined package insert as patient has had device before; medication administration will be around 1400 on 10/31/2020, verbalized understanding. Device confirmed with flashing green light at time of patient discharge. Patient tolerating chemotherapy treatment at this time with no signs of reaction; patient noted with nausea and decreased appetite.. Patient receiving increase fluids, antiemetics and using protein, pedalyte supplements with some relief . Patient states she forgot to take her antiemetics on a few occasions but will work on taking them more consistently. Discussed use of Prochlorperazine as a scheduled medication, taking before meals, and Ondansetron for acute onset nausea. Olanzapine ordered byMD Conde for next treatment; patient verbalized understanding of administration. Patient education: Patient verbally educated on all medications administered today. Patient expressed understanding of education provided and no barriers identified. Patient' s single IVAD noted to have brisk blood return and device flushed per hospital policy. Access site noted to be patent, unremarkable and without redness. IVAD de-accessed, dressing applied. Patient and family encouraged to call clinic with any issues. I was supervised by Dr. Calderón who was present and immediately available in the office suite. SOFIA JADE RN 10/30/2020 9:07 documented in this encounter Miscellaneous Notes * Addendum Note - Nelly Mendoza - 10/30/2020 0830 EDTEncounter addended by: Nelly Mendoza on: 11/13/2020 12:35 Actions taken: Charge Capture section accepted documented in this encounter Plan of Treatment Upcoming Encounters Date Type Department Care Team (Late st Contact Info) Description 01/31/2024 13:40 EDT Office Visit [facility] [place] [address] Maeve Morales, DO [address] [place] [address], [address] [place] [address] documented as of this encounter Procedures Procedure Name Priority Date/Time Associated Diagnosis Comments COMPREHENSIVE METABOLIC PANEL (ONCOLOGY USE ONLY-INC MG) STAT 10/30/2020 8:35 EDT Malignant 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, estrogen receptor negative (HCC-CMS) COMPLETE BLOOD COUNT AND DIFF, CHEMO STAT 10/30/2020 8:35 EDT Malignant 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, estrogen receptor negative (HCC-CMS) documented in this encounter Results * (ABNORMAL) COMPLETE BLOOD COUNT AND DIFF, CHEMO (10/30/2020 8:35 EDT) WBC 6.81 4.00 - 12.40 K/cmm 10/30/2020 8:56 [facility] RBC 4.19 3.86 - 5.04 M/cmm 10/30/2020 8:56 [facility] Hemoglobin 12.5 11.6 - 15.2 gm/dL 10/30/2020 8:56 [facility] HCT 36.8 34.9 - 44.4 % 10/30/2020 8:56 [facility] MCV 88 81 - 98 fl 10/30/2020 8:56 [facility] MCH 29.8 26.7 - 33.3 pg 10/30/2020 8:56 [facility] MCHC 34.0 32.1 - 35.9 gm/dL 10/30/2020 8:56 [facility] RDW-CV 16.0(H) <14.7 % 10/30/2020 8:56 [facility] RDW-SD 49.0 <50.4 fl 10/30/2020 8:56 [facility] PLT 204 141 - 377 K/cmm 10/30/2020 8:56 [facility] MPV 9.9 9.5 - 12.7 fl 10/30/2020 8:56 [facility] % Neutrophils 60.2 % 10/30/2020 8:56 [facility] Absolute Neutrophils 4.10 2.20 - 8.85 K/cmm 10/30/2020 8:56 [facility] Type of Differential: Auto 10/30/2020 8:56 [facility] Blood BLOOD SAMPLE TAKEN FROM CENTRAL LINE / Unknown Venipuncture / Unknown 10/30/2020 8:35 EDT 10/30/2020 8:46 EDT Queenie Conde MD PACKAGES & DNA PROBE ORDERABLES Performing Organization Address City/State/[facility] Co de Phone Number [facility] [address] [place] [address] * (ABNORMAL) COMPREHENSIVE METABOLIC PANEL (ONCOLOGY USE ONLY-INC MG) (10/30/2020 8:35 EDT) Sodium 139 136 - 145 mEq/L 10/30/2020 9:21 [facility] Potassium 4.0 3.5 - 5.0 mEq/L 10/30/2020 9:21 [facility] Chloride 101 96 - 110 mEq/L 10/30/2020 9:21 [facility] CO2 Total 27 22 - 32 mEq/L 10/30/2020 9:21 [facility] Glucose 154(H) 70 - 100 mg/dL 10/30/2020 9:21 [facility] BUN 12 10 - 26 mg/dL 10/30/2020 9:21 [facility] Creatinine 0.40(L) 0.52 - 1.04 mg/dL 10/30/2020 9:21 [facility] eGFR 126 >60 mL/min/1.7 3m2 10/30/2020 9:21 [facility] Comment:eGFR calculated usin g CKD-EPI equation for non- Americans. Multiply eGFR by 1.16 for patients. Total Protein 7.0 6.3 - 8.2 g/dL 10/30/2020 9:21 [facility] Albumin 4.3 3.4 - 4.9 g/dL 10/30/2020 9:21 [facility] Alkaline Phosphatase 162(H) 38 - 126 U/L 10/30/2020 9:21 [facility] AST 51(H) 15 - 46 U/L 10/30/2020 9:21 [facility] ALT 84(H) <35 U/L 10/30/2020 9:21 [facility] Bilirubin, Total <0.5 <1.4 mg/dL 10/31/19 9:21 [facility] Calcium 9.3 8.5 - 10.5 mg/dL 10/30/2020 9:21 [facility] Calculated Calcium 9.1 8.5 - 10.5 mg/dL 10/30/2020 9:21 [facility] Magnesium 1.9 1.7 - 2.8 mg/dL 10/30/2020 9:21 [facility] Blood VENOUS BLOOD / Unknown Central Line Draw / Unknown 10/30/2020 8:35 EDT 10/30/2020 8:46 EDT Queenie Conde MD CHEMISTRY & BLOOD GA S ORDERABLES [facility] [address] [place] [address] documented in this encounter Visit Diagnoses Diagnosis [...] Minutes, NOW X1, 1 dose, On Klaudia 10/30/21 at 1100, Routine New Bag 10/30/2020 11:00 EDT 1,188 mg Port dexAMETHasone (DECADRON) tablet 12 mg 12 mg, oral, NOW X1, 1 dose, On Tue10/30/20 at 0945, Routine Given 10/30/2020 9:45 EDT 12 mg DOXOrubicin (ADRIAMYCIN) chemo injection 118.8 mg 118.8 mg (60 mg/m2 ? 1.98 m2 Treatment Plan BSA from Recorded weight), intravenous, NOW X1, 1 dose, On Tue10/30/20 at 1045, Routine Given 10/30/2020 10:40 EDT 118.8 mg Port fosaprepitant (EMEND) 150 mg in sodium chloride (NS) 0.9 % 150 mL infusion 150 mg, intravenous, Administer over 30 Minutes, NOW X1, 1 dose, On Tue10/30/20 at 0945, Routine New Bag 10/30/2020 10:00 EDT 150 mg Port palonosetron (ALOXI) injection 0.25 mg 0.25 mg, intravenous, NOW X1, 1 dose, On Tue10/30/20 at 0945, Routine Given 10/30/2020 9:55 EDT 0.25 mg Port pegfilgrastim (NEULASTA ONPRO) wearable subcutaneous injection 6 mg 6 mg, subcutaneous, NOW X1, 1 dose, On Tue10/30/20 at 0945, Routine Given 10/30/2020 11:06 EDT 6 mg Lef t Arm sodium chloride 0.9 % (flush) flush 20 mL 20 mL, intercatheter, PRN, Starting on Tue10/30/20 at 0929, Until Tue11/02/20 at 0205, Line Care, Routine Given 10/30/2020 11:31 EDT 20 mL Port sodium chloride 0.9 % (NS) infusion at 100 mL/hr, 250 mL, intravenous, CONTINUOUS, Starting on Tue10/30/20 at 0945, Until Tue10/31/20 at 0944, Routine New Bag 10/30/2020 9:45 EDT 250 mL 100 mL/hr Port documented in this encounter Orders Medications Ordered That Juanito ht Not Have Been Administered Count Last Ordered Date First Ordered Date LORazepam (ATIVAN) tablet 1 mg 1 10/30/2020 Appointment Requests Count Last Ordered Date Fi rst Ordered Date ONCBCN INFUSION APPOINTMENT REQUEST - CALCULATED 1 10/30/2020 documented in this encounter Care Teams Lathe Machine Operator Relationship Specialty Start Date End Date Batsheva Lira FNP [address] [phone] PCP - General 02/19/20 07/21/22 documented as of this encounter
--- OUTSIDE RECORDS SUMMARY | 2023-12-10 17:43 | XMS_ITS | Encounter Summary ---
Author Organization [facility] Address [address] [place] [address] Care Team Providers Care Chef De Froid Name Role Phone Batsheva Lira JOHN Primary Care Provider [phone] Encounter Details Date Type Department Care Team (Latest Contact Info) Description 12/17/2020 8:30 EDT - 12/17/2020 23:59 EDT Hospital Encounter [facility] Pre-Surgical Testing [address] [place], [place] [id number] Discharge Disposition: Home or Self Care Social [...] 9:28 EDT documented as of this encounter Last Filed Vital Signs Vital Sign Reading Time Taken Comments Blood Pressure - - Pulse - - Temperature - - Respiratory Rate - - Oxygen Saturation - - Inhaled Oxygen Concentration - - Weight 83.9 kg (185 lb) 12/17/2020 0842 EDT Height 165.1 cm (5' 5) 12/17/2020 0842 EDT Body Mass Index 30.79 12/17/2020 0842 EDT documented in this encounter Functional Status [...] No 11/21/2020 documented as of this encounter Medications at [...] 12/25/2020 triamcinolone acetonide (KENALOG) 0.1 % pasteIndications:Malig nant 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, estrogen receptor negative (HCC-CMS) Apply to affected area up to three times daily as needed for pain. 1 Tube 11/07/2020 03/26/2021 documented as of this encounter Discharge Disposition Disposition Code Departure Means Destination Home or Self Care documented in this encounter OR Notes * Preprocedure Instructions - Mallika Frazier RN - 12/17/2020 0830 EDT Austin Squries has been instructed as follows regarding medication administration for the day of the scheduled procedure. Date of Surgery: 12/24/20 Instructions for Taking Medications Day of Surgery Medication Sig Last Dose Hold DOS Take DOS amLODIPine (NORVASC) 2.5 mg tablet Take 2.5 mg by mouth daily. yes escitalopram oxalate (LEXAPRO) 10 mg tablet Take 20 mg by mouth daily. yes INTRAUTERINE DEVICE, IUD, INTRAUTERINE by intrauterine route. indwelling lidocaine-prilocaine (EMLA) cream Apply to port site and cover, 1 hr before planned port access OLANZapine (ZYPREXA) 5 mg tablet Take 1 Tablet by mouth daily. Take 1 tab on day 1 and 2 and 3 of chemotherapy Not taking at this time omeprazole (PRILOSEC) 40 mg capsule Take 1 Cap by mouth at bedtime. yes ondansetron (ZOFRAN-ODT) 8 mg disintegrating tablet Take 1 Tab by mouth every 8 hours as needed forNausea. Not taking at this time prochlorperazine (COMPAZINE) 10 mg tablet Take 1 Tab by mouth every 6 hours as needed for Nausea. Not taking at this time triamcinolone acetonide (KENALOG) 0.1 % paste Apply to affected area up to three times daily as needed for pain. x * OR PreOp - Mallika Frazier RN - 12/17/2020 0830 EDT COVID 19 Screening Perioperative at time of PAT Please document by exception (only check those that apply). Have you had any of the following symptoms recently?no Yes Chronic ? Cough Shortness of breath [...] someone who has been diagnosed with Covid 19?no (close contact, within 6 feet of any person known to have Coronavirus in the past 14 days) Vaccination Status: ___x Pt states fully vaccinated, _x__ Verified in chart ___ Pt states unvaccinated -Do not instruct patient regarding COVID testing, let [facility] coordinate this -Communicate status on yellow form for DOS If patient develops any of these symptoms between now and their surgery date instruct them to call us back at [phone] to report symptoms Visitor Policy: - Inpatients are now permitted two healthy support people at a time, including children. One personis permitted to remain overnight. - Pediatric Inpatients may have two healthy parents/guardians at the bedside and siblings are permitted as needed. One may stay overnight. - Inpatient Psychiatry patients may have two healthy, fully vaccinated support people at a time. Due to the environment on these units, vaccination is a requirement for all visitors. - Two healthy support people are permitted to escort a patient undergoing any procedure requiring sedation or general anesthesia. - One healthy support person may accompany patients to outpatient appointments. Two healthy parents/guardians are permitted for pediatric patients. documented in this encounter Plan of Treatment Upcoming Encounters Date Type Department Care Team (Late st Contact Info) Description 01/31/2024 13:40 EDT Office Visit [facility] Surgical Oncology - [address] [id number] Maeve Morales, [address], [address] [place] [phone] documented as of this encounter Visit Diagnoses Not on filedocumented in this encounter Care Teams Chef De Froid Relationship Specialty Start Date End Date Batsheva Lira FNP [address] [phone] PCP - General 02/19/20 07/21/22 documented as of this encounter
--- OUTSIDE RECORDS SUMMARY | 2023-12-10 17:43 | XMS_ITS | Encounter Summary ---
Author Organization [facility] Address [address] [place] [address] Care Team Providers Care Recruiting Intern Name Role Phone Batsheva Lira JOHN Primary Care Provider [phone] Reason for Visit * Reason Comments Follow-up Encounter Details Date Type Department Care Team (Late st Contact Info) Description 11/25/2020 10:20 EDT Office Visit [facility] Surgical Oncology - [address] [id number] Maeve Morales, DO [address] [facility], [facility] [address] [place] [phone] Malignant neoplasm of upper-inner quadrant of left [...] 10:08 EDT documented as of this encounter Last Filed Vital Signs Vital Sign Reading Time Taken Comments Blood Pressure 120/79 11/25/2020 1014 EDT Pulse 108 11/25/2020 1014 EDT Temperature 35.8 ??C (96.5 ??F) 11/25/2020 1014 EDT Respiratory Rate 12 11/25/2020 1014 EDT Oxygen Saturation - - Inhaled Oxygen [...] Progress Notes * Maeve Morales, DO - 11/25/2020 1020 EDT Subjective: Patient ID: Austin Squires is [...] breast in female, estrogen receptor negative (HCC-CMS) Past Medical History: Diagnosis Date ??? Exercise involving housework ??? Exercise involving walking july till february- runs [email or web address]- very active. ??? Head trauma 06/19/20 fell [...] and cover, 1 hr before planned port [id number] g 1 ??? OLANZapine (ZYPREXA) 5 mg [...] Visit [facility] Surgical Oncology - [address] [address] Maeve Morales DO [address] [place] [address], [address] [place] [phone] documented as of this encounter Procedures Procedure Name Priority Date/Time Associated Diagnosis Comments ORDERS - SCANNED 12/08/2020 14:25 EDT documented in this encounter Results * ORDERS - SCANNED (12/08/2020 14:25 EDT) 12/08/2020 14:2 5 EDT Scan 2 Utilization Specialist ADMISSION ORDERABLE S documented in this encounter Visit Diagnoses Diagnosis Malignant 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, estrogen receptor negative ([facility])- Primary documented in this encounter Care Teams Recruiting Intern Relationship Specialty Start Date End Date Batsheva Lira FNP [address] [phone] PCP - General 02/19/20 07/21/22 documented as of this encounter
--- OUTSIDE RECORDS SUMMARY | 2023-12-10 17:43 | XMS_ITS | Encounter Summary ---
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 1 Tube 11/07/2020 03/26/2021 documented as of this encounter Discharge Disposition Disposition Code Departure Means Destination Home or Self Care documented in this encounter Progress Notes * Yanely Yip RN - 11/27/2020 0900 EDT Out-patient Chemotherapy Note Patient presents to clinic today for cycle #8 , day # 1 of treatment plan. (Last chemo treatment )-planned surgery for 12/24. Reviewed lab results with patient CBC: Lab Results Component Value Date WBC 8.27 11/27/2020 HGB 11.6 11/27/2020 HCT 34.2 (L) 11/27/2020 PLT 184 11/27/2020 NEUTROABS 5.36 11/27/2020 Chemistry: Lab Results Component Value Date NA 138 11/27/2020 K 4.1 11/27/2020 BUN 15 11/27/2020 CREATININE 0.40 (L) 11/27/2020 CALCIUM 9.5 11/27/2020 MG 1.8 11/27/2020 LFT: Lab Results Component Value Date TBIL <0.5 11/27/2020 ALKPHOS 155 (H) 11/27/2020 AST 60 (H) 11/27/2020 ALT 98 (H) 11/27/2020 . Parameters for today???s treatment met. However it was noted that LFTS were elevated today ( history of elevation - and tx was given at that time). Prema Honeycutt PA notified of increased LFTS- ok totreat despite elevation today . - suspect elevation today possibly r/t recent abx therapy in hosptial for neutropenic fever. Will continue to monitor. Patient noted with single IVAD for access. IV flushed, site patent and unremarkable and brisk bloodreturn noted before and after all chemotherapy and biotherapy infusions. Patient received Premedications ( dexamethasone 12mgPo, aloxi, and Emend) Adrymycin given over 5 minutes thur running IV ( given by Emily Nowak RN) followed by Cytoxan infusion over 30 minutes Patient tolerating chemotherapy treatment at this time with no signs of reaction or side effects. Neulasta Onpro injector applied to LEFT arm At 1145 per lozenge maker helper's instructions. Cannula inserted without issue, injector noted with slow-flashing green light. Provided lozenge maker helper's instructions to patient and reviewed them. Patient verbalized understanding. Patient education: Patient educated on all medications administered today. Patient expressed understanding of education provided and no barriers identified Patient' s single IVAD noted to have brisk blood return and device flushed per hospital policy. Access site noted to be patent and unremarkable I was supervised by Dr Calderón who was present and immediately available in the office suite. YANELY YIP RN 11/27/2020 10:49 ' YANELY YIP RN 11/27/2020 10:31 documented in this encounter Miscellaneous Notes * Addendum Note - Aissatou Dockery - 11/27/2020 0900 EDTEncounter addended by: Aissatou Dockery on: 12/15/2020 5:24 Actions taken: Charge Capture section accepted documented in this encounter Plan of Treatment Upcoming Encounters Date Type Department Care Team (Late st Contact Info) Description 01/31/2024 13:40 EDT Office Visit [facility] Surgical Oncology - [address] [id number] Maeve Morales, DO [address] [facility], [facility], [address] [place] [address] documented as of this encounter Procedures Procedure Name Priority Date/Time Associated Diagnosis Comments COMPREHENSIVE METABOLIC PANEL (ONCOLOGY USE ONLY-INC MG) STAT 11/27/2020 9:10 EDT Malignant 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, estrogen receptor negative (HCC-CMS) COMPLETE BLOOD COUNT AND DIFF, CHEMO STAT 11/27/2020 9:10 EDT Malignant 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, estrogen receptor negative (HCC-CMS) documented in this encounter Results * (ABNORMAL) COMPLETE BLOOD COUNT AND DIFF, CHEMO (11/27/2020 9:10 EDT) WBC 8.27 4.00 - 12.40 K/cmm 11/27/2020 9:32 [facility] RBC 3.79(L) 3.86 - 5.04 M/cmm 11/27/2020 9:32 [facility] Hemoglobin 11.6 11.6 - 15.2 gm/dL 11/27/2020 9:32 [facility] HCT 34.2(L) 34.9 - 44.4 % 11/27/2020 9:32 [facility] MCV 90 81 - 98 fl 11/27/2020 9:32 [facility] MCH 30.6 26.7 - 33.3 pg 11/27/2020 9:32 [facility] MCHC 33.9 32.1 - 35.9 gm/dL 11/27/2020 9:32 [facility] RDW-CV 18.5(H) <14.7 % 11/27/2020 9:32 [facility] RDW-SD 57.1(H) <50.4 fl 11/27/2020 9:32 [facility] PLT 184 141 - 377 K/cmm 11/27/2020 9:32 [facility] MPV 10.2 9.5 - 12.7 fl 11/27/2020 9:32 T [facility] % Neutrophils 64.9 % 11/27/2020 9:32 [facility] Absolute Neutrophils 5.36 2.20 - 8.85 K/cmm 11/27/2020 9:32 [facility] Type of Differential: Auto 11/27/2020 9:32 [facility] Blood VENOUS BLOOD / Unknown Venipuncture / Unknown 11/27/2020 9:10 EDT 11/27/2020 9:27 EDT Queenie Conde MD PACKAGES & DNA PROBE ORDERABLES [facility] [address] [place] [address] * (ABNORMAL) COMPREHENSIVE METABOLIC PANEL (ONCOLOGY USE ONLY-INC MG) (11/27/2020 9:10 EDT) Sodium 138 136 - 145 mEq/L 11/27/2020 10:12 [facility] Potassium 4.1 3.5 - 5.0 mEq/L 11/27/2020 10:12 [facility] Chloride 100 96 - 110 mEq/L 11/27/2020 10:12 [facility] CO2 Total 23 22 - 32 mEq/L 11/27/2020 10:12 [facility] Glucose 197(H) 70 - 100 mg/dL 11/27/2020 10:12 [facility] BUN 15 10 - 26 mg/dL 11/27/2020 10:12 [facility] Creatinine 0.40(L) 0.52 - 1.04 mg/dL 11/27/2020 10:12 [facility] eGFR 126 >60 mL/min/1.7 3m2 11/27/2020 10:12 [facility] Comment:eGFR calculated mata asif CKD-EPI equation for non- Americans. Multiply eGFR by 1.16 for patients. Total Protein 7.2 6.3 - 8.2 g/dL 11/27/2020 10:12 T [facility] Albumin 4.7 3.4 - 4.9 g/dL 11/27/2020 10:12 T [facility] Alkaline Phosphatase 155(H) 38 - 126 U/L 11/27/2020 10:12 [facility] AST 60(H) 15 - 46 U/L 11/27/2020 10:12 [facility] ALT 98(H) <35 U/L 11/27/2020 10:12 [facility] Bilirubin, Total <0.5 <1.4 mg/dL 11/28/19 10:12 [facility] Calcium 9.5 8.5 - 10.5 mg/dL 11/27/2020 10:12 [facility] Calculated Calcium 8.9 8.5 - 10.5 mg/dL 11/27/2020 10:12 [facility] Magnesium 1.8 1.7 - 2.8 mg/dL 11/27/2020 10:12 [facility] Blood VENOUS BLOOD / Unknown Venipuncture / Unknown 11/27/2020 9:10 EDT 11/27/2020 9:27 EDT Queenie Conde MD CHEMISTRY & BLOOD GA S ORDERABLES Performing Organization Address City/State/[facility] Co de Phone Number [facility] [address] [place] [address] documented in this encounter Visit Diagnoses Diagnosis [...] Minutes, NOW X1, 1 dose, On Klaudia 11/27/20 at 1115, Routine New Bag 11/27/2020 11:37 EDT 1,188 mg dexAMETHasone (DECADRON) tablet 12 mg 12 mg, oral, NOW X1, 1 dose, On Klaudia 11/27/20 at 1000, Routine Given 11/27/2020 10:15 EDT 12 mg DOXOrubicin (ADRIAMYCIN) chemo injection 118.8 mg 118.8 mg (60 mg/m2 ? 1.98 m2 Treatment Plan BSA from Recorded weight), intravenous, NOW X1, 1 dose, On Klaudia 11/27/20 at 1100, Routine Given 11/27/2020 11:14 EDT 118.8 mg fosaprepitant (EMEND) 150 mg in sodium chloride (NS) 0.9 % 150 mL infusion 150 mg, intravenous, Administer over 30 Minutes, NOW X1, 1 dose, On Klaudia 11/27/20 at 1000, Routine New Bag 11/27/2020 10:26 EDT 150 mg palonosetron (ALOXI) injection 0.25 mg 0.25 mg, intravenous, NOW X1, 1 dose, On Klaudia 11/27/20 at 1000, Routine Given 11/27/2020 10:16 EDT 0.25 mg pegfilgrastim (NEULASTA ONPRO) wearable subcutaneous injection 6 mg 6 mg, subcutaneous, NOW X1, 1 dose, On Klaudia 11/27/20 at 1000, Routine Given 11/27/2020 11:44 EDT 6 mg sodium chloride 0.9 % (NS) infusion at 100 mL/hr, 250 mL, intravenous, CONTINUOUS, Starting on Klaudia 11/27/20 at 1000, Until Tue11/28/20 at 1018, Routine New Bag 11/27/2020 10:19 EDT 250 mL 100 mL/hr documented in this encounter Orders Medications Ordered That Juanito ht Not Have Been Administered Count Last Ordered Date First Ordered Date LORazepam (ATIVAN) tablet 1 mg 1 11/27/2020 sodium chloride 0.9 % (flush) flush 20 mL 11/27/2020 Nursing Count Last Ordered Date First Orde red Date TREAT DESPITE 11/27/2020 Appointment Requests Count Last Ordered Date Fi rst Ordered Date ONCBCN INFUSION APPOINTMENT REQUEST - CALCULATED 11/27/2020 documented in this encounter Care Teams Principal Mechanical Engineer Relationship Specialty Start Date End Date Batsheva Lira FNP [address] [phone] PCP - General 02/19/20 07/21/22 documented as of this encounter
--- OUTSIDE RECORDS SUMMARY | 2023-12-10 17:43 | XMS_ITS | Encounter Summary ---
Author Organization [facility] Address [address] [place] [address] Care Team Providers Care Research Intern Name Role Phone Batsheva Lira JOHN Primary Care Provider [phone] Reason for Visit * Reason Onset Date Comments Surgery Scheduling 10/28/2020 Encounter Details Date Type Department Care Team (Late st Contact Info) Description 10/28/2020 Telephone [facility] Plastic, Reconstructive & Cosmetic Surgery - [address], [address] [place] [address] Juanito Carcamo MD [address] [place] [address] Surgery Scheduling Social History Tobacco Use Types [...] * Telephone Encounter - Mary Stanton - 10/28/2020 1136 EDT Spoke to Austin about date of surgery 12/24, and scheduled a pre-op on 12/04 documented in this encounter Plan of Treatment Upcoming Encounters Date Type Department Care Team (Late st Contact Info) Description 01/31/2024 13:40 EDT Office Visit [facility] Surgical Oncology - [address] [id number] Maeve Morales, [address] [facility], [address] [place] [phone] documented as of this encounter Visit Diagnoses Not on filedocumented in this encounter Care Teams Research Intern Relationship Specialty Start Date End Date Batsheva Lira FNP [address] [phone] PCP - General 02/19/20 07/21/22 documented as of this encounter
--- OUTSIDE RECORDS SUMMARY | 2023-12-10 17:43 | XMS_ITS | Encounter Summary ---
Author Organization [facility] Address [address] [place] [address] Care Team Providers Care Petroleum Refinery Operator Name Role Phone Batsheva Lira JOHN Primary Care Provider [phone] Reason for Visit * Reason Comments Chemotherapy And Provider Visit Follow-up Encounter Details Date Type Department Care Team (Late st Contact Info) Description 10/30/2020 9:00 EDT Office Visit [facility] Hematology & Oncology - Main [place] [address] [place] [address] [place] [address] [place] [phone] Malignant neoplasm of upper-inner quadrant of [...] Sign Reading Time Taken Comments Blood Pressure 145/87 10/30/2020 0832 EDT Pulse 115 10/30/2020 0832 EDT Temperature 35.7 ??C (96.2 ??F) 10/30/2020 0832 EDT Respiratory Rate 16 10/30/2020 0832 EDT Oxygen Saturation 100% 10/30/2020 0832 EDT Inhaled Oxygen Concentration - - Weight 85.9 kg (189 lb 6.4 oz) 10/30/2020 0832 E DT Height 167.1 cm (5' 5.79) 10/30/2020 0832 EDT Body Mass Index 30.77 10/30/2020 0832 EDT documented in this encounter Functional Status [...] Dispensed Refills Start Date End Da te OLANZapine (ZYPREXA) 5 mg tablet Take 1 Tablet by mouth daily. Take 1 tab on day 1 and 2 and 3 of chemotherapy 10 Tablet 1 10/30/2020 12/25/2020 documented in this encounter Progress Notes * Queenie Conde MD - 10/30/2020 0900 EDT REASON FOR OFFICE VISIT Austin is a 45 y.o. being see for ongoing neoadjuvant chemotherapy. HISTORY OF PRESENT ILLNESS: Austin's nutrition coordinator noticed a mass in 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?She then underwent imaging and a biopsy on 07/09/20??of a 2.1 cm mass revealed a nuclear grade 3 ER negative [place] negative for B2 negative ductal carcinoma.??Staging evaluation did reveal a prominent L IM lymphnode but ot herwise negative. 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 SUBJECTIVE: Austin??is doing well although did have quite a bit of nausea with her last chemotherapy. She reports that her sore throat is much improved with increasing her omeprazole. Additionally she fell at a gas station while at her her dinorah. Keflex was prescribed and she has had no signs or symptoms of infection. She feels well and ready to move forward with the next treatment. She has no??additional??new??constitutional, cardiovascular, pulmonary, GI, ,SLAB OFF MILL TENDER, musculoskeletal, psychiatric, neurologic,endocrine, or heme symptoms. ?? PAST MEDICAL HISTORY: 1.?Urinary incontinence 2.?Hypertension, well-controlled 3.?History of kidney stones,??none for the past 6 years 4.?Cholecystectomy in 2018 ?? MEDS Amlodipine,??Mirena IUD, Lexapro,??omeprazole,??Ultram, Chantix, Compazine, ondansetron. ?? MENSTRUAL HISTORY:Austin is unclear [...] about the health of these relatives. ?? Melisas paternal family history includes her father who is 64 and relatively healthy for his age. ??Her father has 5 full brothers and 5 full sisters. ??He also has 2 paternal half-brothers. ??One of his full brothers of liver cancer in his 50s. ??Melissa paternal grandfather was diagnosed with leukemia in his 80s and in his 90s. ??Her paternal relatives are of [place] descent. Objective: BP (!) 145/87 Pulse (!) 115 Temp 35.7 ??C (96.2 ??F) (Tympanic) Resp 16 Ht 167.1 cm (65.79) Wt 85.9 kg (189 lb 6.4 oz) SpO2 100% BMI 30.77 kg/m?? General: Comfortable, cooperative and in no [...] clubbing, cyansis or edema; No calf tenderness SKIN: She does have some bruising on her left great toe and some scrapes on her elbows but no evidence of infection. BREAST EXAM: Not performed DIAGNOSTIC DATA Lab Results Component Value Date WBC 6.81 10/30/2020 HGB 12.5 10/30/2020 PLT 204 10/30/2020 CREATININE 0.40 (L) 10/30/2020 CALCCA 9.1 10/30/2020 CALCIUM 9.3 10/30/2020 ALT 84 (H) 10/30/2020 AST 51 (H) 10/30/2020 ASSESSMENT: Austin is a 44-year old female with triple negative breast cancer (clinical T2N0) currently getting neoadjuvant chemotherapy. She has completed 4 cycles of Taxol and carboplatinum and 1 cycle of Adriamycin and Cytoxan. She had quite a bit of nausea with her first cycle of Adriamycin and Cytoxan whenwe talked about adding olanzapine starting today. We will start at a lower dose (5 mg) for day 1 2 and 3. Her sore throat is much improved which I think was related to reflux we will continue omeprazole 40mg. Austin has some elevation of her liver enzymes but this does seem to be fluctuating throughout her treatment. We will monitor Austin again has stopped smoking and feels good about this..? PLAN: 1. Austin will??receive??cycle 2 of Adriamycin and Cytoxan with Neulasta support today. 2. She will continue omeprazole 40 mg daily given the improvement in her sore throat/reflux. 3. Austin will take olanzapine this cycle and we will see how that goes. 4. Austin is set to have surgery on 12/24 and we will schedule a f/u on 01/06. 5. Today I spent more than 45 minutes reviewing records, coordinating care, seeing and examining Austin and documenting this visit Queenie Conde MD documented in this encounter Plan of Treatment Upcoming Encounters Date Type Department Care Team (Late st Contact Info) Description 01/31/2024 13:[address] [facility] Surgical Oncology - [address] [address] Maeve Morales, DO [address] [facility], [address] [place] [address] documented as of this encounter Visit Diagnoses Diagnosis Malignant 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, estrogen receptor negative (HCC-CMS)- Primary documented in this encounter Orders Appointment Requests Count Last Ordered Date Fi rst Ordered Date ONCBCN CLINIC APPOINTMENT REQUEST 1 021 documented in this encounter Care Teams Petroleum Refinery Operator Relationship Specialty Start Date End Date Batsheva Lira FNP [address] [phone] PCP - General 02/19/20 07/21/22 documented as of this encounter
--- OUTSIDE RECORDS SUMMARY | 2023-12-10 17:43 | XMS_ITS | Encounter Summary ---
Author Organization [facility] Address [address] [place] [address] Care Team Providers Care Computer Network And Systems Engineer Name Role Phone Batsheva Lira JOHN Primary Care Provider [phone] Reason for Visit * Reason Comments Chemotherapy Encounter Details Date Type Department Care Team (Latest Contact Info) Description 11/13/2020 12:39 EDT - 11/13/2020 23:59 EDT Hospital Encounter [email or web address] Hematology & Oncology - [address] [place] [address], [place] [id number] Malignant neoplasm of upper-inner quadrant of left [...] 9:59 EDT documented as of this encounter Last Filed Vital Signs Vital Sign Reading Time Taken Comments Blood Pressure 145/79 11/13/2020 1243 EDT Pulse 84 11/13/2020 1243 EDT Temperature 36.5 ??C (97.7 ??F) 11/13/2020 1243 EDT Respiratory Rate 17 11/13/2020 1243 EDT Oxygen Saturation 98% 11/13/2020 1243 EDT Inhaled Oxygen Concentration - - Weight 86.2 kg (190 lb) 11/13/2020 1243 EDT Height 167.1 cm (5' 5.79) 11/13/2020 1243 EDT Body Mass Index 30.87 11/13/2020 1243 EDT documented in this encounter Functional Status [...] documented in this encounter Progress Notes * Emily Nowak, RADHA - 11/13/2020 1300 EDT Out-patient Chemotherapy Note Patient presents to clinic today for cycle # 7 , day # 1 of Paclitaxel Q3W + Carboplatin (AUC 6) > AC (DOSE DENSE) treatment plan. Pt reports she has had improvement of nausea with use of Olanzapine at home. Reviewed lab results with patient CBC: Lab Results Component Value Date WBC 7.88 11/13/2020 HGB 11.7 11/13/2020 HCT 33.2 (L) 11/13/2020 PLT 190 11/13/2020 NEUTROABS 5.22 11/13/2020 Chemistry: Lab Results Component Value Date NA 140 11/13/2020 K 4.0 11/13/2020 BUN 13 11/13/2020 CREATININE 0.38 (L) 11/13/2020 CALCIUM 9.2 11/13/2020 MG 1.8 11/13/2020 . Parameters for today???s treatment met Patient noted with right anterior chest port for access. IV flushed, site patent and brisk blood return noted before and after all chemotherapy and/or biotherapy infusions. Patient received pre-meds, Dexamethasone 12mg PO, Emend 150mg IV, Aloxi 0.25mg IV (see MAR). Patient tolerating chemotherapy treatment at this time with no signs of reaction or side effects. Doxorubicin given IVP with open NaCl line over 5 minutes. Cytoxan 1188mg given IV over 30 minutes. Neulasta Onpro injector applied to left upper arm per horizontal resaw operator's instructions. Cannula insertedwithout issue, injector noted with slow-flashing green light. Provided horizontal resaw operator's instructions to patient and reviewed them. Patient verbalized understanding. Patient education: Patient verbally educated on all medications administered today. Patient expressed understanding of education provided and no barriers identified Patient' s port noted to have brisk blood return and device flushed per hospital policy. Access site noted to be patent. PIV removed / IVAD de-accessed, dressing applied. Patient and family encouraged to call clinic with any issues. I was supervised by Dr. Huerta who was present and immediately available in the office suite. documented in this encounter Miscellaneous Notes * Addendum Note - Aissatou Dockery - 11/13/2020 1300 EDTEncounter addended by: Aissatou Dockery on: 12/15/2020 5:22 Actions taken: Charge Capture section accepted documented in this encounter Plan of Treatment Upcoming Encounters Date Type Department Care Team (Late st Contact Info) Description 01/31/2024 13:40 EDT Office Visit [facility] [place] [address] Maeve Morales, DO [address] [place] [address], [facility], [address] [place] [phone] documented as of this encounter Procedures Procedure Name Priority Date/Time Associated Diagnosis Comments COMPREHENSIVE METABOLIC PANEL (ONCOLOGY USE ONLY-INC MG) STAT 11/13/2020 12:47 EDT Malignant 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, estrogen receptor negative (HCC-CMS) COMPLETE BLOOD COUNT AND DIFF, CHEMO STAT 11/13/2020 12:47 EDT Malignant 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, estrogen receptor negative (HCC-CMS) documented in this encounter Results * (ABNORMAL) COMPLETE BLOOD COUNT AND DIFF, CHEMO (11/13/2020 12:47 EDT) WBC 7.88 4.00 - 12.40 K/cmm 11/13/2020 13:18 [facility] RBC 3.77(L) 3.86 - 5.04 M/cmm 11/13/2020 13:18 [facility] Hemoglobin 11.7 11.6 - 15.2 gm/dL 11/13/2020 13:18 [facility] HCT 33.2(L) 34.9 - 44.4 % 11/13/2020 13:18 [facility] MCV 88 81 - 98 fl 11/13/2020 13:18 [facility] MCH 31.0 26.7 - 33.3 pg 11/13/2020 13:18 [facility] MCHC 35.2 32.1 - 35.9 gm/dL 11/13/2020 13:18 [facility] RDW-CV 16.8(H) <14.7 % 11/13/2020 13:18 [facility] RDW-SD 50.4(H) <50.4 fl 11/13/2020 13:18 [facility] PLT 190 141 - 377 K/cmm 11/13/2020 13:18 [facility] MPV 10.2 9.5 - 12.7 fl 11/13/2020 13:18 [facility] % Neutrophils 66.3 % 11/13/2020 13:18 [facility] Absolute Neutrophils 5.22 2.20 - 8.85 K/cmm 11/13/2020 13:18 [facility] Type of Differential: Auto 11/13/2020 13:18 [facility] Blood VENOUS BLOOD / Unknown Venipuncture / Unknown 11/13/2020 12:47 EDT 11/13/2020 13:01 EDT Queenie Conde MD PACKAGES & DNA PROBE ORDERABLES Performing Organization Address City/State/[facility] Co de Phone Number [facility] [address] [place] [address] * (ABNORMAL) COMPREHENSIVE METABOLIC PANEL (ONCOLOGY USE ONLY-INC MG) (11/13/2020 12:47 EDT) Sodium 140 136 - 145 mEq/L 11/13/2020 13:19 [facility] Potassium 4.0 3.5 - 5.0 mEq/L 11/13/2020 13:19 [facility] Chloride 104 96 - 110 mEq/L 11/13/2020 13:19 [facility] CO2 Total 23 22 - 32 mEq/L 11/13/2020 13:19 [facility] Glucose 206(H) 70 - 100 mg/dL 11/13/2020 13:19 [facility] BUN 13 10 - 26 mg/dL 11/13/2020 13:19 [facility] Creatinine 0.38(L) 0.52 - 1.04 mg/dL 11/13/2020 13:19 [facility] eGFR 128 >60 mL/min/1.7 3m2 11/13/2020 13:19 [facility] Comment:eGFR calculated mata asif CKD-EPI equation for non- Americans. Multiply eGFR by 1.16 for patients. Total Protein 6.9 6.3 - 8.2 g/dL 11/13/2020 13:19 [facility] Albumin 4.3 3.4 - 4.9 g/dL 11/13/2020 13:19 [facility] Alkaline Phosphatase 142(H) 38 - 126 U/L 11/13/2020 13:19 [facility] AST 56(H) 15 - 46 U/L 11/13/2020 13:19 [facility] ALT 91(H) <35 U/L 11/13/2020 13:19 [facility] Bilirubin, Total <0.5 <1.4 mg/dL 11/14/19 13:19 [facility] Calcium 9.2 8.5 - 10.5 mg/dL 11/13/2020 13:19 [facility] Calculated Calcium 9.0 8.5 - 10.5 mg/dL 11/13/2020 13:19 [facility] Magnesium 1.8 1.7 - 2.8 mg/dL 11/13/2020 13:19 [facility] Blood VENOUS BLOOD / Unknown Venipuncture / Unknown 11/13/2020 12:47 EDT 11/13/2020 13:01 EDT Queenie Conde MD CHEMISTRY & BLOOD GA S ORDERABLES [facility] [address] [place] [address] documented in this encounter Visit Diagnoses Diagnosis [...] 30 Minutes, NOW X1, 1 dose, On Tue11/13/20 at 1500, Routine New Bag 11/13/2020 14:43 EDT 1,188 mg dexAMETHasone (DECADRON) tablet 12 mg 12 mg, oral, NOW X1, 1 dose, On Klaudia 11/13/20 at 1345, Routine Given 11/13/2020 13:54 EDT 12 mg DOXOrubicin (ADRIAMYCIN) chemo injection 118.8 mg 118.8 mg (60 mg/m2 ? 1.98 m2 Treatment Plan BSA from Recorded weight), intravenous, NOW X1, 1 dose, On Tue11/13/20 at 1445, Routine Given 11/13/2020 14:43 EDT 118.8 mg fosaprepitant (EMEND) 150 mg in sodium chloride (NS) 0.9 % 150 mL infusion 150 mg, intravenous, Administer over 30 Minutes, NOW X1, 1 dose, On Tue11/13/20 at 1345, Routine New Bag 11/13/2020 14:05 EDT 150 mg palonosetron (ALOXI) injection 0.25 mg 0.25 mg, intravenous, NOW X1, 1 dose, On Tue11/13/20 at 1345, Routine Given 11/13/2020 13:46 EDT 0.25 mg pegfilgrastim (NEULASTA ONPRO) wearable subcutaneous injection 6 mg 6 mg, subcutaneous, NOW X1, 1 dose, On Tue11/13/20 at 1415, Routine Given 11/13/2020 15:38 EDT 6 mg sodium chloride 0.9 % (NS) infusion at 100 mL/hr, 250 mL, intravenous, CONTINUOUS, Starting on Tue11/13/20 at 1345, Until Tue11/14/20 at 1259, Routine New Bag 11/13/2020 13:00 EDT 250 mL 100 mL/hr documented in this encounter Orders Medications Ordered That Juanito ht Not Have Been Administered Count Last Ordered Date First Ordered Date LORazepam (ATIVAN) tablet 1 mg 11/13/2020 Appointment Requests Count Last Ordered Date Fi rst Ordered Date ONCBCN INFUSION APPOINTMENT REQUEST - CALCULATED 11/13/2020 documented in this encounter Care Teams Computer Network And Systems Engineer Relationship Specialty Start Date End Date Batsheva Lira FNP [address] [phone] PCP - General 02/19/20 07/21/22 documented as of this encounter
--- OUTSIDE RECORDS SUMMARY | 2023-12-10 17:43 | XMS_ITS | Encounter Summary ---
Author Organization [facility] Address [address] [place] [address] Care Team Providers Care Web Site Project Manager Name Role Phone Batsheva Lira JOHN Primary Care Provider [phone] Reason for Visit * Reason Onset Date Comments Appointment Related 12/03/2020 Encounter Details Date Type Department Care Team (Late st Contact Info) Description 12/03/2020 Telephone [facility] [address] [address] Therapy, Outpatient, Appointment Related Social History Tobacco Use Types [...] encounter Miscellaneous Notes * Telephone Encounter - Sheela Long - 12/03/2020 0339 EDT [facility] - [address] [address] Telephone Intake Information for Scheduling NEW Patients for Therapy Script/referral: In [facility] Referral date: 11.25.20 Referring Provider: MAEVE MALHOTRA,DO Diagnosis: MLE Outbound Sales Executive needed? No Primary Insurance: [place] Medicaid standard plan- Extension process must be followed for additional visits beyond yearly allowable Secondary Insurance: None If Medicaid (age 21+): Have you been seen for therapy since May first of this year? No Sheela Long 12/03/2020 documented in this encounter Plan of Treatment Upcoming Encounters Date Type Department Care Team (Late st Contact Info) Description 01/31/2024 13:40 EDT Office Visit [facility] Surgical Oncology - [address] [id number] Maeve Malhotra DO [address] [place] [address], [facility], [address] [place] [phone] documented as of this encounter Visit Diagnoses Not on filedocumented in this encounter Care Teams Web Site Project Manager Relationship Specialty Start Date End Date Batsheva Lira FNP [address] [phone] PCP - General 02/19/20 07/21/22 documented as of this encounter
--- OUTSIDE RECORDS SUMMARY | 2023-12-10 17:43 | XMS_ITS | Encounter Summary ---
Author Organization [facility] Address [address] [place] [address] Care Team Providers Care Wrapping Clerk Name Role Phone Batsheva Lira JOHN Primary Care Provider [phone] Encounter Details Date Type Department Care Team (Latest Contact Info) Description 12/17/2020 Travel Social History Tobacco Use Types Packs/Day [...] [facility] Surgical Oncology - [address] [address] Maeve Morales, [address] [facility], [facility], [address] [place] [phone] documented as of this encounter Visit Diagnoses Not on filedocumented in this encounter Care Teams Wrapping Clerk Relationship Specialty Start Date End Date Batsheva Lira FNP [address] [phone] PCP - General 02/19/20 07/21/22 documented as of this encounter
--- OUTSIDE RECORDS SUMMARY | 2023-12-10 17:43 | XMS_ITS | Encounter Summary ---
Author Organization [facility] Address [address] [place] [address] Care Team Providers Care Healthcare Management Consultant Name Role Phone Batsheva Lira JOHN Primary Care Provider [phone] Reason for Visit * Reason Comments Follow-up Infusion Encounter Details Date Type Department Care Team (Late st Contact Info) Description 11/27/2020 9:20 EDT [facility] H[facility] & Oncology - [address] [address] Liat Honeycutt, PACalinC [address] [facility], [address] [place] [address] Malignant neoplasm of upper-inner quadrant [...] Sign Reading Time Taken Comments Blood Pressure 130/78 11/27/2020 09 EDT Pulse 108 11/27/2020 09 EDT Temperature 35.8 ??C (96.4 ??F) 11/27/2020 0911 EDT Respiratory Rate 18 11/27/2020910 EDT Oxygen Saturation 99% 11/27/2020910 EDT Inhaled Oxygen Concentration - - Weight 85.3 kg (188 lb 1.6 oz) 11/27/2020 09 E DT Height 167.1 cm (5' 5.79) 11/27/2020 09 EDT Body Mass Index 30.56 11/27/2020 09 EDT documented in this encounter Functional Status [...] Progress Notes * Liat Honeycutt PA-C - 11/27/2020 0920 EDT Austin Squires is a 45 y.o.yo female presenting in clinic today for assessment prior to ongoing chemotherapy, given preoperatively for breast cancer Chief Complaint Patient presents with ??? Follow-up ??? 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 SUBJECTIVE: Austin returns for her final round of AC. She unfortunately was briefly admitted following round 3, with fever, feeling poorly with aches and malaise, and an ANC of 1.52. Work-up was negative for any focal sign of infection, and she recovered quickly. She now is taking olanzapine following chemo and this has worked very nicely for her posttreatment nausea. She then will switch over to Compazine for a day or 2. She takes Zofran minimally. She had tramadol available for post Taxol painand tells me she took it only twice, and I will remove this from her medication list. She is dealing with a hemorrhoid since some earlier constipation, and takes stool softener regularly. 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 REVIEW OF SYSTEMS: I went through a verbal review of symptoms with the patient. Symptoms as noted above. She is dismayed by some weight gain but has lost a few pounds recently. Hot flashes which are bothersome but tolerable. No shortness of breath or cough. No new or persistent pain. Remainder system review is without acute concerns. Past Medical History: Diagnosis Date ??? Exercise involving housework ??? 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 ??? Head trauma 06/19/20 fell on ice. No loss of consciosness ??? History of general anesthesia ??? History of kidney stones past 3 stone ??? Poor dentition ??? Urgency of urination stress inc. Patient Active Problem List Diagnosis Date Noted ??? 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, estrogen receptor negative ([facility]) 07/15/2020 Past Surgical History: Procedure Laterality Date ??? CHOLECYSTECTOMY ??? OTHER SURGICAL HISTORY 1998, 2011 epidural with childbirth Family History Problem Relation Age of Onset ??? Lung Cancer Mother Social History Socioeconomic History ??? Marital status: Spouse name: None ??? Number of children: None ??? Years of education: None ??? Highest education level: None Occupational History ??? None Tobacco Use ??? Smoking status: Former Smoker Packs/day: 0.50 Years: 30.00 Pack years: 15.00 Types: Cigarettes Quit date: 09/17/2020 Years since quittin.1 ??? Smokeless tobacco: Never Used ??? Tobacco comment: pt also vapes Vaping Use ??? Vaping Use: Former ??? Substances: Nicotine (3mg or none) ??? Devices: Disposable Substance and Sexual Activity ??? Alcohol use: Yes Comment: rarely ??? Drug use: Never ??? Sexual activity: None Other Topics Concern ??? None Social History Narrative ??? Lives in [facility]. Two adult children and one 9 yr old daughter Social Determinants of Health Financial Resource Strain: ??? Difficulty of Paying Living Expenses: Food Insecurity: ??? Worried About Running Out of Food in the Last Year: ??? Ran Out of Food in the Last Year: Transportation Needs: ??? Lack of Transportation (Medical): ??? Lack of Transportation (Non-Medical): Physical Activity: ??? Days of Exercise per Week: ??? Minutes of Exercise per Session: Stress: ??? Feeling of Stress : Social Connections: ??? Frequency of Communication with Friends and Family: ??? Frequency of Social Gatherings with Friends and Family: ??? Attends Zoroastrianism Services: ??? Active Member of Clubs or Organizations: ??? Attends Club or Organization Meetings: ??? Marital Status: Medications Prior to Today's Visit Medication Sig ??? amLODIPine (NORVASC) 2.5 mg tablet Take 2.5 mg by mouth daily. ??? escitalopram oxalate (LEXAPRO) 10 mg tablet Take 20 mg by mouth daily. ??? INTRAUTERINE DEVICE, IUD, INTRAUTERINE by intrauterine route. ??? lidocaine-prilocaine (EMLA) cream Apply to port site and cover, 1 hr before planned port access ??? OLANZapine (ZYPREXA) 5 mg tablet Take 1 Tablet by mouth daily. Take 1 tab on day 1 and 2 and 3 of chemotherapy ??? omeprazole (PRILOSEC) 40 mg capsule Take 1 Cap by mouth at bedtime. ??? ondansetron (ZOFRAN-ODT) 8 mg disintegrating tablet Take 1 Tab by mouth every 8 hours as neededfor Nausea. ??? oxybutynin (DITROPAN) 5 mg tablet Take 5 mg by mouth daily. (Patient not taking: Reported on 11/25/2020) ??? prochlorperazine (COMPAZINE) 10 mg tablet Take 1 Tab by mouth every 6 hours as needed for Nausea. ??? traMADol (ULTRAM) 50 mg tablet Take 1 Tab by mouth every 6 hours as needed for Pain. Daily Max:200 mg ??? triamcinolone acetonide (KENALOG) 0.1 % paste Apply to affected area up to three times daily asneeded for pain. ??? varenicline tartrate (CHANTIX ORAL) Take by mouth daily. No facility-administered medications prior to visit. Allergies Allergen Reactions ??? Oxycodone Other (See Comments) Made her hyper Objective: BP 130/78 Pulse (!) 108 Temp 35.8 ??C (96.4 ??F) (Temporal) Resp 18 Ht 167.1 cm (65.79) Wt 85.3 kg (188 lb 1.6 oz) SpO2 99% BMI 30.56 kg/m?? General appearance: alert, no distress Head: Normocephalic, without obvious abnormality, atraumatic Throat/Mouth: normal findings: oropharynx pink & moist without lesions or evidence of thrush Neck: supple, symmetrical, trachea midline and no adenopathy Lymph nodes: Cervical, supraclavicular, and axillary nodes normal. Lungs: clear to auscultation bilaterally Heart: regular rate and rhythm, No significant murmur Abdomen: normal findings: no masses palpable, no organomegaly, soft, non-tender Neurologic: Grossly normal Mental Status: mood and affect appropriate, speech and thought process intact Extremities: extremities warm, atraumatic, no cyanosis or edema Skin: Skin color, temperature, turgor normal. No rashes or lesions LABORATORY: Today's hemogram shows WC 8.27, with an ANC of 5.36. Hemoglobin 11.6. Platelets 184. Today's complete metabolic panel significant for slight increase in chronic transaminitis, to AST/ALT of 60/98. Alkaline phosphatase 155. Glucose 197. Remainder of metabolic panel is within normal limits. ASSESSMENT: Triple negative breast cancer, with diagnosis and therapy as documented above. Austin will conclude neoadjuvant chemo today. Her posttreatment nausea is much improved with the use of olanzapine. She has persistent transaminitis, a bit up today, but within parameters for treatment. This is in the setting of hepatic steatosis. She was briefly admitted with fever and ANC of 1.52 from 11/21 to 11/23/2020, but recovered quickly and had no clear source of infection. She is fit to go ahead with her chemotherapy today. PLAN: 1. Day one of the fourth and final cycle of dose dense AC, with no change to dosing or premedications. 2. Pegfilgrastim via Onpro in 24 hours. 3. Patient is scheduled for surgery with Dr. Morales on 12/24/2020. Given the possibility of residualdisease, Dr. Arevalo will be considering whether she might keep her port in, in view of possible IV adjuvant therapy. 4. Postop visit in this department on 01/06/2021, with Dr. Conde. Follow-up sooner than scheduled visit with any acute concerns or questions. I was directly supervised by Dr Queenie Conde, who was in the suite and immediately available for the entire time the above documented service was provided. Liat Honeycutt PA-C 11/27/2020 9:56 documented in this encounter Plan of Treatment Upcoming Encounters Date Type Department Care Team (Late st Contact Info) Description 01/31/2024 13:40 EDT Office Visit [facility] Surgical Oncology - [address] [address] Maeve Morales, [address] [place] [address], [address] [place] [phone] documented as of this encounter Visit Diagnoses Diagnosis Malignant 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, estrogen receptor negative (HCC-CMS)- Primary documented in this encounter Discontinued Medications Medication Sig Discontinue Reason Start Date End Da te traMADol (ULTRAM) 50 mg tablet Take 1 Tab by mouth every 6 hours as needed for Pain. Daily Max: 200 mg 08/13/2020 11/27/2020 varenicline tartrate (CHANTIX ORAL) Take by mouth daily. 11/27/2020 oxybutynin (DITROPAN) 5 mg tablet Take 5 mg by mouth daily. 11/27/2020 documented as of this encounter Orders Appointment Requests Count Last Ordered Date Fi rst Ordered Date ONCBCN CLINIC APPOINTMENT REQUEST 1 021 documented in this encounter Care Teams Healthcare Management Consultant Relationship Specialty Start Date End Date Batsheva Lira FNP [address] [phone] PCP - General 02/19/20 07/21/22 documented as of this encounter
--- OUTSIDE RECORDS SUMMARY | 2023-12-10 17:43 | XMS_ITS | Encounter Summary ---
Author Organization [facility] Address [address] [place] [address] Care Team Providers Care Biochemistry Specialist Name Role Phone Batsheva Lira JOHN Primary Care Provider [phone] Reason for Referral * PT/OT/ST (Routine) - New Request Specialty Diagnoses / Procedures Referred By Jen gonzáles Referred To Contact Rehab Therapies Diagnoses Malignant 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, estrogen receptor negative (HCC-CMS) Maeve Morales DO [address] [facility] 2 [place] [address] [facility] [address] [place] [address] Referral ID Status Reason Start Date Expiration Date Visits Requested Visits Authorized [id number] New Request Specialty Services Required 11/25/2020 1 1 Question Answer Surgery (and Date): bilateral skin sparing mastectomies, Left SLNB, with reconstructions scheduled on 12/24/20 Reason for Request: Triple negative breast cancer, L breast; will be having bilateral mastectomies with reconstruction; lymphedema education pre operatively and evaluate/treat post op Scheduling Comments (optional ? describe specific scheduling needs if applicable): prior to 12/24/20 surgery Encounter Details Date Type Department Care Team (Late st Contact Info) Description 11/25/2020 Orders Only [facility] Surgical Oncology - Main [address] [place] [address] [address] Kenia Cline, RN Malignant neoplasm of upper-inner quadrant of [...] of this encounter Progress Notes * Kenia Cline, RN - 11/25/2020 9283 EDT Referral for pre op PT has been placed to provide education on lymphedema. documented in this encounter Plan of Treatment Upcoming Encounters Date Type Department Care Team (Late st Contact Info) Description 01/31/2024 13:40 EDT Office Visit [facility] Surgical Oncology - [address] [id number] Maeve Morales, [address] [place] [address], Level [address] [place] [phone] Scheduled Referrals Name Type Priority Associated Diagnoses Orde r Schedule AMB CONS/FOLLOW UP PHYSICAL THERAPY Outpatient Referral Routine Malignant 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, estrogen receptor negative (HCC-CMS) Expected: 12/09/2020 (Approximate) documented as of this encounter Visit Diagnoses Diagnosis Malignant 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, estrogen receptor negative (HCC-CMS)- Primary documented in this encounter Care Teams Biochemistry Specialist Relationship Specialty Start Date End Date Batsheva Lira FNP [address] [phone] PCP - General 02/19/20 07/21/22 documented as of this encounter
--- OUTSIDE RECORDS SUMMARY | 2023-12-10 17:43 | XMS_ITS | Encounter Summary ---
Author Organization [facility] Address [address] [place] [address] Care Team Providers Care Meat Service Team Member Name Role Phone Batsheva Lira JOHN Primary Care Provider [phone] Encounter Details Date Type Department Care Team (Late st Contact Info) Description 10/23/2020 9:15 EDT Phlebotomy Only [facility] ED Center 2 Phlebotomy [address] [place] [address] Vice President Tax, Acc Phlebotomy Malignant 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, estrogen receptor negative ([facility]) Social History Tobacco Use Types Packs/Day Years [...] Office Visit [facility] Surgical Oncology - [address] [address] Maeve Morales, DO [address] [place] [address], [facility], Level 2 [place] [address] documented as of this encounter Procedures Procedure Name Priority Date/Time Associated Diagnosis Comments HN LAB CBC SMEAR REVIEW Today 10/23/2020 9:10 EDT Malignant 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, estrogen receptor negative (HCC-CMS) DIFFERENTIAL, AUTOMATED MANUAL STAT 10/23/2020 9:10 EDT Malignant 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, estrogen receptor negative (HCC-CMS) COMPREHENSIVE METABOLIC PANEL (ONCOLOGY USE ONLY-INC MG) STAT 10/23/2020 9:10 EDT Malignant 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, estrogen receptor negative (HCC-CMS) COMPLETE BLOOD COUNT AND DIFF, CHEMO STAT 10/23/2020 9:10 EDT Malignant 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, estrogen receptor negative (HCC-CMS) documented in this encounter Results * HN LAB CBC SMEAR REVIEW (10/23/2020 9:10 EDT) Differential Comment Slide was examined by a technologist to verify the WBC and/or platelet count. [facility]2020 [facility] Blood VENOUS BLOOD / Unknown Venipuncture / Unknown 10/23/2020 9:10 EDT 10/23/2020 9:56 EDT Queenie Conde MD HEMATOLOGY & PF4 ORD ERABLES [facility] [address] [place] [address] * (ABNORMAL) DIFFERENTIAL, AUTOMATED MANUAL (10/23/2020 9:10 EDT) % Neutrophils 9.7 % 10/23/2020 10:53 [facility] % Banded Neutrophils 2.6 % 10/23/2020 10:53 [facility] % Lymphocytes 66.7 % 10/23/2020 10:53 [facility] % Atypical Lymphocytes 3.5 % 10/23/2020 10:53 [facility] % Monocytes 10.5 % 10/23/2020 10:53 [facility] % Eosinophils 6.1 % 10/23/2020 10:53 [facility] % Basophils 0.9 % 10/23/2020 10:53 [facility] Absolute Neutrophils 0.13(LL) 2.20 - 8.85 K/cmm 10/23/2020 10:53 [facility] Absolute Bands 0.04 K/cmm 10/23/2020 10:53 [facility] Absolute Lymphocytes 0.92(L) 1.09 - 3.30 K/cmm 10/23/2020 10:53 [facility] Absolute Atypical Lymphocytes 0.05 K/cmm 10/23/2020 10:53 [facility] Absolute Monocytes 0.14 0.10 - 0.80 K/cmm 10/23/2020 10:53 [facility] Absolute Eosinophils 0.08 0.03 - 0.61 K/cmm 10/23/2020 10:53 [facility] ABS Basophils 0.01 0.01 - 0.11 K/cmm 10/23/2020 10:53 [facility] Blood VENOUS BLOOD / Unknown Venipuncture / Unknown 10/23/2020 9:10 EDT 10/23/2020 9:56 EDT Queenie Conde MD HEMATOLOGY & PF4 ORD ERABLES [facility] [address] [place] [address] * (ABNORMAL) COMPLETE BLOOD COUNT AND DIFF, CHEMO (10/23/2020 9:10 EDT) WBC 1.38(L) 4.00 - 12.40 K/cm 10/23/2020 10:52 [facility] RBC 4.33 3.86 - 5.04 M/cmm 10/23/2020 10:52 [facility] Hemoglobin 12.7 11.6 - 15.2 gm/dL 10/23/2020 10:52 [facility] HCT 36.8 34.9 - 44.4 % 10/23/2020 10:52 [facility] MCV 85 81 - 98 fl 10/23/2020 10:52 [facility] MCH 29.3 26.7 - 33.3 pg 10/23/2020 10:52 [facility] MCHC 34.5 32.1 - 35.9 gm/dL 10/23/2020 10:52 [facility] RDW-CV 14.3 <14.7 % 10/23/2020 10:52 [facility] RDW-SD 44.2 <50.4 fl 10/23/2020 10:52 [facility] PLT 70(L) 141 - 377 K/cmm 10/23/2020 10:52 [facility] MPV 10.3 9.5 - 12.7 fl 10/23/2020 10:52 [facility] Type of Differential: Manual 10/23/2020 10:52 [facility] Comment:Automated differenti al not available. Manual differential to follow. Blood VENOUS BLOOD / Unknown Venipuncture / Unknown 10/23/2020 9:10 EDT 10/23/2020 9:56 EDT Queenie Conde MD PACKAGES & DNA PROBE ORDERABLES [facility] [address] [place] [address] * (ABNORMAL) COMPREHENSIVE METABOLIC PANEL (ONCOLOGY USE ONLY-INC MG) (10/23/2020 9:10 EDT) Sodium 140 136 - 145 mEq/L 10/23/2020 10:11 [facility] Potassium 3.9 3.5 - 5.0 mEq/L 10/23/2020 10:11 [facility] Chloride 101 96 - 110 mEq/L 10/23/2020 10:11 [facility] CO2 Total 26 22 - 32 mEq/L 10/23/2020 10:11 [facility] Glucose 155(H) 70 - 100 mg/dL 10/23/2020 10:11 [facility] BUN 9(L) 10 - 26 mg/dL 10/23/2020 10:11 [facility] Creatinine 0.42(L) 0.52 - 1.04 mg/dL 10/23/2020 10:11 [facility] eGFR 124 >60 mL/min/1.7 3m2 10/23/2020 10:11 [facility] Comment:eGFR calculated usin g CKD-EPI equation for non- Americans. Multiply eGFR by 1.16 for patients. Total Protein 7.0 6.3 - 8.2 g/dL 10/23/2020 10:11 [facility] Albumin 4.2 3.4 - 4.9 g/dL 10/23/2020 10:11 [facility] Alkaline Phosphatase 159(H) 38 - 126 U/L 10/23/2020 10:11 [facility] AST 38 15 - 46 U/L 10/23/2020 10:11 EDT [facility] ALT 66(H) <35 U/L 10/23/2020 10:11 EDT [facility] Bilirubin, Total <0.5 <1.4 mg/dL 10/24/19 10:11 EDT [facility] Calcium 9.3 8.5 - 10.5 mg/dL 10/23/2020 10:11 EDT [facility] Calculated Calcium 9.1 8.5 - 10.5 mg/dL 10/23/2020 10:11 EDT [facility] Magnesium 1.8 1.7 - 2.8 mg/dL 10/23/2020 10:11 EDT [facility] Blood VENOUS BLOOD / Unknown Venipuncture / Unknown 10/23/2020 9:10 EDT 10/23/2020 9:56 EDT Queenie Conde MD CHEMISTRY & BLOOD GA S ORDERABLES Performing Organization Address City/State/[facility] Co de Phone Number [facility] [address] [place] [address] documented in this encounter Visit Diagnoses Diagnosis Malignant 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, estrogen receptor negative (HCC-CMS) documented in this encounter Care Teams Meat Service Team Member Relationship Specialty Start Date End Date Batsheva Lira FNP [address] [phone] PCP - General 02/19/20 07/21/22 documented as of this encounter
--- OUTSIDE RECORDS SUMMARY | 2023-12-10 17:43 | XMS_ITS | Encounter Summary ---
Author Organization [facility] Address [address] [place] [address] Care Team Providers Care Refrigeration Houseman Name Role Phone Batsheva Lira JOHN Primary Care Provider [phone] Reason for Visit * Reason Comments Pre-op Exam Bilateral TE recon- Encounter Details Date Type Department Care Team (Late st Contact Info) Description 12/04/2020 10:00 EDT Office Visit [facility] Plastic, Reconstructive & Cosmetic Surgery - [address], [address] [place] [address] Juanito Carcamo MD [address] [place] [phone] Malignant neoplasm of upper-inner quadrant of [...] Notes * Juanito Carcamo MD FACS - 12/04/2020 1000 EDT Austin is here for her preoperative appointment for bilateral tissue tie maker based breast reconstruction planned for 12/24/20. Her last chemotherapy was November 27. She reports that she has done well. We reviewed the general risks of reconstruction associated with the device itself and the surgical procedure. We also discussed the potential risk related to using acellular dermal matrix. We reviewedthe [employer] consent form for the procedure and answered any questions she had to her satisfaction. Signed informed ASPS and signed informed hospital consent was obtained today and will be placed in the office chart and the electronic health record respectively. I spent 45 minutes with this patient; 40 minutes was spent in counseling and coordination of care as described in the progress note. documented in this encounter Plan of Treatment Upcoming Encounters Date Type Department Care Team (Late st Contact Info) Description 01/31/2024 13:40 EDT Office Visit [facility] Surgical Oncology - [facility] [address] [place] [address] Maeve Morales, [address] [facility], Level [address] [place] [phone] documented as of this encounter Visit Diagnoses Diagnosis Malignant 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, estrogen receptor negative (H[facility])- Primary documented in this encounter Care Teams Refrigeration Houseman Relationship Specialty Start Date End Date Batsheva Lira FNP [address] [phone] PCP - General 02/19/20 07/21/22 documented as of this encounter
--- OUTSIDE RECORDS SUMMARY | 2023-12-10 17:44 | XMS_ITS | Encounter Summary ---
Author Organization [facility] Address [address] [place] [address] Care Team Providers Care Cabbage Salter Name Role Phone Batsheva Lira JOHN Primary Care Provider [phone] Encounter Details Date Type Department Care Team (Latest Contact Info) Description 09/17/2020 Travel Social History Tobacco Use Types Packs/Day Years Used Date Smoking Tobacco: Every Day Cigarettes 0.5 30 Smokeless Tobacco: Never Comments:pt also vapes Alcohol [...] have Coronavirus / COVID-19? No / Unsure 09/17/2020 10:35 EDT documented as of this encounter Functional [...] Description 01/31/2024 13:40 EDT Office Visit [facility] Surgical Oncology - [facility] [address] [place], [place] [phone] Maeve Morales, [address] [facility], [facility], Level [address] [place] [phone] documented as of this encounter Visit Diagnoses Not on filedocumented in this encounter Care Teams Cabbage Salter Relationship Specialty Start Date End Date Batsheva Lira FNP [address] [phone] PCP - General 02/19/20 07/21/22 documented as of this encounter
--- OUTSIDE RECORDS SUMMARY | 2023-12-10 17:44 | XMS_ITS | Encounter Summary ---
Author Organization [facility] Address [address] [place] [address] Care Team Providers Care Care Tech Name Role Phone Batsheva Lira JOHN Primary Care Provider [phone] Reason for Visit * Reason Onset Date Comments Social Work 09/19/2020 financial Encounter Details Date Type Department Care Team (Late st Contact Info) Description 09/19/2020 Telephone [facility] Hematology & Oncology - [facility] [address] [place], [place] [address] Veronique Dye Social Work (financial ) Social History Tobacco Use Types Packs/Day [...] * Telephone Encounter - Veronique Dye - 09/19/2020 0933 EDT PN checked the [employer] online portal to see if a decision has been made with pt's application; no decision at this time. Updated pt and asked her if she needs a visa gift card/gas card to help with food/cost of travel. Await pt reply Addendum 3:00pm: Mailed pt 2 $50 visa gift cards and 1 gas card. documented in this encounter Plan of Treatment Upcoming Encounters Date Type Department Care Team (Late st Contact Info) Description 01/31/2024 13:40 EDT Office Visit [facility] Surgical Oncology - [address] [address] Maeve Morales, DO [address] [facility], [address] [place] [phone] documented as of this encounter Visit Diagnoses Not on filedocumented in this encounter Care Teams Care Tech Relationship Specialty Start Date End Date Batsheva Lira FNP [address] [phone] PCP - General 02/19/20 07/21/22 documented as of this encounter
--- OUTSIDE RECORDS SUMMARY | 2023-12-10 17:44 | XMS_ITS | Encounter Summary ---
Author Organization [facility] Address [address] [place] [address] Care Team Providers Care Radio Performer Name Role Phone Batsheva Lira JOHN Primary Care Provider [phone] Reason for Visit * Reason Comments Follow-up Encounter Details Date Type Department Care Team (Late st Contact Info) Description 10/07/2020 15:00 EDT Office Visit [facility] Cancer Center Hematology & Oncology - [place] [address] [place] [address] [place] [address] [place] [phone] Malignant neoplasm of upper-inner quadrant of [...] have Coronavirus / COVID-19? No / Unsure 09/23/2020 14:34 EDT documented as of this encounter Last Filed Vital Signs Vital Sign Reading Time Taken Comments Blood Pressure 152/76 10/07/2020 1501 EDT Pulse 100 10/07/2020 1501 EDT Temperature 36.3 ??C (97.4 ??F) 10/07/2020 1501 EDT Respiratory Rate 16 10/07/2020 1501 EDT Oxygen Saturation 98% 10/07/2020 1501 EDT Inhaled Oxygen Concentration - - Weight 87.5 kg (193 lb) 10/07/2020 1501 EDT Height 167.1 cm (5' 5.79) 10/07/2020 1501 EDT Body Mass Index 31.35 10/07/2020 1501 EDT documented in this encounter Functional Status [...] 1 Cap by mouth 2 times daily. 60 Cap 1 10/07/2020 10/08/2020 documented in this encounter Progress Notes * Queenie Conde MD - 10/07/2020 1500 EDT REASON FOR OFFICE VISIT Austin is a 45 y.o. being see today for a sore throat and consideration of chemotherapy next week. 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 Given her triple negative histology she began starting taxol/carboplatinum as partof the SIKOV Regimen on July 22, 2020.? SUBJECTIVE: Austin??is here today to discuss a sore throat that she has had for the last couple of weeks. She has not had a sore throat like this before. It does not feel particularly infectious. It seems to bother her most in the other spatial scientist and late at night. She is taking Prilosec once a day (in the a.m.).She has no cough or shortness of breath. She has been a little anxious anticipating her next treatment with Adriamycin and Cytoxan given that it is a new profile. Her aunt is coming up to take care of her for 8 days after this treatment. She is quite looking forward to that. She reports some mild numbness with her prior chemotherapy but this has not gotten worse. Over the past week or so she has f orgotten to take her medicines twice and feels that this is making her a little discombobulated. She also did resume smoking. But her sore throat began prior to this. She has no additional new??constitutional, cardiovascular, pulmonary, GI, ,DEHAIRING MACHINE TENDER, musculoskeletal,psychiatric, neurologic, endocrine, or heme symptoms. ?? PAST MEDICAL HISTORY: 1.?Urinary incontinence 2.?Hypertension, well-controlled 3.?History of kidney stones,??none for the past 6 years 4.?Cholecystectomy in 2018 ?? MEDS Amlodipine, Mirena IUD, Lexapro, omeprazole, Ultram, Chantix, Compazine, ondansetron. ?? MENSTRUAL HISTORY:Austin is [...] his 90s. ??Her paternal relatives are of [place] descent. Objective: BP (!) 152/76 Pulse 100 Temp 36.3 ??C (97.4 ??F) (Tympanic) Resp 16 Ht 167.1 cm (65.79) Wt 87.5 kg (193 lb) SpO2 98% BMI 31.35 kg/m?? General: Comfortable, cooperative and in no apparent distress HEENT: Pupils are equal, round, reactive to light; Extraocular muscles are intact; Oromucosa is moist; no mucosal lesions are identified. She has no pharyngeal erythema or induration. NECK: Neck is supple no thyromegaly no cervical or supraclavicular adenopathy NODES: negative LUNGS: Clear to auscultation and percussion bilaterally CARDIOVASCULAR: Regular, rate and rhythm; No murmurs, rubs or gallops ABDOMEN: Soft, non-tender, non distended, no hepatosplenomegaly appreciated EXTREMITIES: No clubbing, cyansis or edema; No calf tenderness BREAST EXAM: Not performed DIAGNOSTIC DATA Lab Results Component Value Date WBC 5.30 09/25/2020 HGB 14.1 09/25/2020 PLT 186 09/25/2020 CREATININE 0.40 (L) 09/25/2020 CALCCA 8.9 09/25/2020 CALCIUM 9.1 09/25/2020 ALT 88 (H) 09/25/2020 AST 50 (H) 09/25/2020 ASSESSMENT: Austin is a 44-year old female with triple negative breast cancer (clinical T2N0) currently getting neoadjuvant chemotherapy. She has completed 4 cycles of Taxol and carboplatinum. She is here today due to a sore throat. We discussed possible etiologies including reflux, viral etiology, stomatitis. I think we will start first with increasing her omeprazole to twice daily. Austin is a bit anxious about initiation of Adriamycin and Cytoxan. I did discuss that there may be more nausea with this. I also did discuss her anxiety in general. She was offered Ativan but we willhold at this time. It might be reasonable to give her Ativan when she comes in for her next chemotherapy. Austin started smoking again and I did discuss that this was not a great idea and she is aware. I think this is a sign of her overall stress at this time. ?? PLAN: 1. Austin will??receive cycle 1 of Adriamycin and Cytoxan with Neulasta support next week. I believeyunior is scheduled for an echocardiogram tomorrow. 2. We will send a prescription in for omeprazole 20 mg twice daily and see how her sore throat goes. 3. Austin was encouraged to call should her symptoms worsen. 4. Austin was encouraged to call if she would like to initiate Ativan prior to her next chemotherapy. 5. Today I spent more than 45 minutes reviewing records, coordinating care, seeing and examining Austin and documenting this visit Queenie Conde MD documented in this encounter Plan of Treatment Upcoming Encounters Date Type Department Care Team (Late st Contact Info) Description 01/31/2024 13:40 EDT Office Visit [facility] Surgical Oncology - [address] [phone] Maeve Morales, 111 [facility], [address] [place] [phone] documented as of this encounter Visit Diagnoses Diagnosis Malignant 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, estrogen receptor negative (HCC-CMS)- Primary documented in this encounter Discontinued Medications Medication Sig Discontinue Reason Start Date End Da te omeprazole magnesium (PRILOSEC ORAL) Take by mouth. 10/07/2020 documented as of this encounter Orders Appointment Requests Count Last Ordered Date Fi rst Ordered Date ONCBCN CLINIC APPOINTMENT REQUEST 1 021 documented in this encounter Care Teams Radio Performer Relationship Specialty Start Date End Date Batsheva Lira FNP [address] [phone] PCP - General 02/19/20 07/21/22 documented as of this encounter
--- OUTSIDE RECORDS SUMMARY | 2023-12-10 17:44 | XMS_ITS | Encounter Summary ---
Author Organization [facility] Address [address] [place] [address] Care Team Providers Care Tipple Engineer Name Role Phone Batsheva Lira JOHN Primary Care Provider [phone] Reason for Visit * Reason Comments Chemotherapy And Provider Visit Encounter Details Date Type Department Care Team (Late st Contact Info) Description 09/25/2020 9:20 EDT Office Visit [facility] Cancer Center Hematology & Oncology - [address] [id number] Liat Honeycutt, PACalinC [address] [facility], [address] [place] [address] Malignant neoplasm of upper-inner quadrant [...] Sign Reading Time Taken Comments Blood Pressure 158/82 09/25/2020 0826 EDT Pulse 94 09/25/2020 08 EDT Temperature 35.7 ??C (96.2 ??F) 09/25/2020 08 EDT Respiratory Rate 16 09/25/2020 08 EDT Oxygen Saturation 100% 09/25/2020 08 EDT Inhaled Oxygen Concentration - - Weight 87.1 kg (192 lb 1.6 oz) 09/25/2020825 E DT Height 167.1 cm (5' 5.79) 09/25/2020 08 EDT Body Mass Index 31.21 09/25/2020 08 EDT documented in this encounter Functional Status [...] No 07/15/2020 documented as of this encounter Progress Notes * Liat Honeycutt PA-C - 09/25/2020 0920 EDT Austin Squires is a 45 y.o.yo female presenting in clinic today for assessment prior to ongoing chemotherapy, given for pre-operatively for triple negative breast cancer Chief Complaint Patient presents with ??? 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 Given her triple negative histology she began starting taxol/carboplatinum as partof the SIKOV Regimen on July 22, 2020..?? SUBJECTIVE: Austin presents for her final round of carboplatin/Taxol, and will start Adriamycin/Cytoxan in 2 weeks (4 cycles plan). She saw Dr. Morales recently and has seen an excellent clinical response. She has had issues with waxing and waning rashes with her chemo but tells me after her last cycle this was not an issue. She does feel a bit more fatigued over the last few weeks, but also started Chantix for smoking cessation. She is pleased to report a week and a day of abstinence from cigarettes. REVIEW OF SYSTEMS: I went through a verbal review of symptoms with the patient. Symptoms as discussed above. She has a flare of generalized pain 2 days after her infusions, managed with hwyu-zba-cyxakwi analgesics as well as tramadol at bedtime (only takes a couple of nights). Remainder of her system review is essentially negative. Past Medical History: Diagnosis Date ??? [...] in female, estrogen receptor negative ([facility]) 07/15/2020 Priority: Medium Past Surgical History: Procedure Laterality Date ??? CHOLECYSTECTOMY ??? OTHER SURGICAL HISTORY 1998, 2011 epidural with childbirth Family History Problem Relation Age of Onset ??? Lung Cancer Mother Social History Socioeconomic History ??? Marital status: Spouse name: None ??? Number of children: None ??? Years of education: None ??? Highest education level: None Occupational History ??? None Social Needs ??? Financial resource strain: None ??? Food insecurity Worry: None Inability: None ??? Transportation needs Medical: None Non-medical: None Tobacco Use ??? Smoking status: Former Smoker Packs/day: 0.50 Years: 30.00 Pack years: 15.00 Types: Cigarettes Quit date: 09/17/2020 Years since quittin.0 ??? Smokeless tobacco: Never Used ??? Tobacco comment: pt also vapes Substance and Sexual Activity ??? Alcohol use: Yes Comment: rarely ??? Drug use: Never ??? Sexual activity: None Lifestyle ??? Physical activity Days per week: None Minutes per session: None ??? Stress: None Relationships ??? Social connections Talks on phone: None Gets together: None Attends yazidism service: None Active member of club or organization: None Attends meetings of clubs or organizations: None Relationship status: None ??? Intimate partner violence Fear of current or ex partner: None Emotionally abused: None Physically abused: None Forced sexual activity: None Other Topics Concern ??? None Social History Narrative ??? Lives in [facility]. Moved here from [place]. 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 Medications Prior to Today's Visit Medication Sig ??? amLODIPine (NORVASC) 2.5 mg tablet Take 2.5 mg by mouth daily. ??? escitalopram oxalate (LEXAPRO) 10 mg tablet Take 20 mg by mouth daily. ??? INTRAUTERINE DEVICE, IUD, INTRAUTERINE by intrauterine route. ??? lidocaine-prilocaine (EMLA) cream Apply to port site and cover, 1 hr before planned port access ??? omeprazole magnesium (PRILOSEC ORAL) Take by mouth. ??? ondansetron (ZOFRAN-ODT) 8 mg disintegrating tablet Take 1 Tab by mouth every 8 hours as neededfor Nausea. ??? oxybutynin (DITROPAN) 5 mg tablet Take 5 mg by mouth daily. ??? prochlorperazine (COMPAZINE) 10 mg tablet Take 1 Tab by mouth every 6 hours as needed for Nausea. ??? traMADol (ULTRAM) 50 mg tablet Take 1 Tab by mouth every 6 hours as needed for Pain. Daily Max:200 mg ??? varenicline tartrate (CHANTIX ORAL) Take by mouth daily. Facility-Administered Medications Prior to Visit Medication ??? [COMPLETED] dexAMETHasone (DECADRON) 12 mg in sodium chloride (NS) 0.9 % 50 mL IVPB ??? [COMPLETED] diphenhydrAMINE (BENADRYL) capsule 50 mg ??? [COMPLETED] famotidine (PEPCID) injection 20 mg ??? [COMPLETED] fosaprepitant (EMEND) 150 mg in sodium chloride (NS) 0.9 % 150 mL infusion ??? [COMPLETED] palonosetron (ALOXI) injection 0.25 mg ??? sodium chloride 0.9 % (flush) flush 20 mL ??? sodium chloride 0.9 % (NS) infusion Allergies Allergen Reactions ??? Oxycodone Other (See Comments) Made her hyper Objective: BP (!) 158/82 Pulse 94 Temp 35.7 ??C (96.2 ??F) (Tympanic) Resp 16 Ht 167.1 cm (65.79) Wt 87.1 kg (192 lb 1.6 oz) SpO2 100% BMI 31.21 kg/m?? General appearance: alert, no distress Head: Normocephalic, without obvious abnormality, atraumatic. Treatment associated alopecia. Neck: supple, symmetrical, trachea midline and no [...] normal. No rashes or lesions LABORATORY: Today's complete metabolic panel significant for elevated glucose of 165. AST/ALT slightly up at 50/88. Alkaline phosphatase 140. Today's hemogram is entirely within normal limits. ASSESSMENT: Triple negative breast cancer, with diagnosis and therapy as documented above. Austin isreceiving neoadjuvant chemo as per the Sikov regimen. She is tolerating it well, with some of the expected side effects. Labs are in range and she is fit to proceed with treatment today PLAN: 1. Day 1 of the fourth and final cycle of carboplatin/Taxol, every 3 week dosing. No change to premeds or dosing. 2. Commended Austin on smoking cessation. 3. Echocardiogram is needed prior to starting Adriamycin/Cytoxan, and and is scheduled for 10/08/2020. 4. Next visit with Dr. Morales in mid November, for surgical planning. Patient also has a visit with in Plastics later this month. 5. Follow-up on 10/14/[address] Conde, prior to planned infusion on 10/16/2020, which willbe the first round of dose dense Adriamycin/Cytoxan. Patient will receive this with pegfilgrastim (Onpro) support 6. Follow-up as above, sooner with acute concerns or questions. I was directly supervised by Dr Radha Pace, who was in the suite and immediately available forthe entire time the above documented service was provided. Liat Honeycutt PA-C 09/25/2020 12:42 documented in this encounter Plan of Treatment Upcoming Encounters Date Type Department Care Team (Late st Contact Info) Description 01/31/2024 13:40 EDT Office Visit [facility] Surgical Oncology - [address] [address] Maeve Morales, [address] [place] [address], [address] [place] [address] documented as of this encounter Visit Diagnoses Diagnosis Malignant 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, estrogen receptor negative (HCC-CMS)- Primary documented in this encounter Orders Appointment Requests Count Last Ordered Date Fi rst Ordered Date ONCBCN CLINIC APPOINTMENT REQUEST 1 021 documented in this encounter Care Teams Tipple Engineer Relationship Specialty Start Date End Date Batsheva Lira FNP [address] [phone] PCP - General 02/19/20 07/21/22 documented as of this encounter
--- OUTSIDE RECORDS SUMMARY | 2023-12-10 17:44 | XMS_ITS | Encounter Summary ---
Author Organization [facility] Address [address] [place] [address] Care Team Providers Care Sourcing Internship Name Role Phone Batsheva Lira JOHN Primary Care Provider [phone] Encounter Details Date Type Department Care Team (Latest Contact Info) Description 08/08/2020 Travel Social History Tobacco Use Types Packs/Day [...] have Coronavirus / COVID-19? No / Unsure 08/08/2020 8:26 EDT documented as of this encounter Functional [...] Info) Description 01/31/2024 13:40 EDT Office Visit [facility] Surgical Oncology - [facility] [address] [place], [place] [address] Maeve Morales, [address] [facility], [facility], [address] [place] [phone] documented as of this encounter Visit Diagnoses Not on filedocumented in this encounter Care Teams Sourcing Internship Relationship Specialty Start Date End Date Batsheva Lira FNP [address] [phone] PCP - General 02/19/20 07/21/22 documented as of this encounter
--- OUTSIDE RECORDS SUMMARY | 2023-12-10 17:44 | XMS_ITS | Encounter Summary ---
Author Organization [facility] Address [address] [place] [address] Care Team Providers Care Zinc Plating Machine Operator Name Role Phone Batsheva Lira JOHN Primary Care Provider [phone] Reason for Visit * Reason Comments Chemotherapy And Provider Visit Encounter Details Date Type Department Care Team (Latest Contact Info) Description 08/13/2020 8:00 EDT - 08/13/2020 23:59 EDT Hospital Encounter [facility] Cancer Center Hematology & Oncology - [place] [address] [place], [place] [id number] Malignant neoplasm of upper-inner quadrant of left [...] 8:26 EDT documented as of this encounter Last Filed Vital Signs Vital Sign Reading Time Taken Comments Blood Pressure 118/78 08/13/2020 1215 EDT Pulse 88 08/13/2020 1215 EDT Temperature - - Respiratory Rate 17 08/13/2020 1215 EDT Oxygen Saturation 97% 08/13/2020 1215 EDT 2 l iters o2 Inhaled Oxygen Concentration - - Weight - [...] access 25 g 1 08/13/2020 03/26/2021 omeprazole magnesium (PRILOSEC ORAL) Take by mouth. 10/07/2020 ondansetron (ZOFRAN-ODT) 8 mg disintegrating tablet Take [...] documented in this encounter Progress Notes * Briseyda Patrick RN - 08/13/2020 0800 EDT Out-patient Chemotherapy Note Patient presents to clinic today for cycle # 2 , day # 1 of Paclitaxel and Carboplatin treatment plan. Reviewed lab results with patient CBC: Lab Results Component Value Date WBC 13.23 (H) 08/13/2020 HGB 15.3 (H) 08/13/2020 HCT 45.6 (H) 08/13/2020 PLT 295 08/13/2020 NEUTROABS 9.64 (H) 08/13/2020 Chemistry: Lab Results Component Value Date NA 138 08/13/2020 K 4.4 08/13/2020 BUN 12 08/13/2020 CREATININE 0.40 (L) 08/13/2020 CALCIUM 9.4 08/13/2020 MG 1.8 08/13/2020 LFT: Lab Results Component Value Date TBIL <0.5 08/13/2020 ALKPHOS 128 (H) 08/13/2020 AST 47 (H) 08/13/2020 ALT 86 (H) 08/13/2020 . Parameters for today???s treatment met Patient noted with single IVAD for access. IV flushed, site patent, unremarkable and without redness and brisk blood return noted before and after all chemotherapy and/or biotherapy infusions. Patient received pre-meds pepcid, aloxi, dexamethasone 12mg, benadryl, and emend, paclitaxel given followed by carboplatin (see MAR). About two and a half hours into Paclitaxel infusion, patient stated she had a tickle in her throat she can't get rid of. Infusion pauses, NS started, Herbert notifed and to chairside. Vitals BP 118/78 Pulse 88 Resp 17 SpO2 97% Comment: 2 liters o2 for comfort. Benadryl 25mg IV given. Patient given hydration with NS for 30 minutes before re-challenging per SOCORRO Duarte. Pt also said she was feeling flushed and restless. Pt stable, tickle in throat went away almost immediately with stopping infusion and receiving hydration and benadryl. Paclitaxel restarted at 1301. Pt tolerated the remainder of the infusion and tolerated carboplatin with no signs or symptoms of reaction at this time. Patient education: Patient verbally educated on all [...] any issues. I was supervised by Dr. Rosado and Dr. Orellana who were present and immediately available in the office suite. BRISEYDA PATRICK RN 08/13/2020 9:45 documented in this encounter Miscellaneous Notes * Addendum Note - Bladimir Jenkisn - 08/13/2020 0800 EDTEncounter addended by: Bladimir Jenkins on: 08/15/2020 10:53 Actions taken: Charge Capture section accepted documented in this encounter Plan of Treatment Upcoming Encounters Date Type Department Care Team (Late st Contact Info) Description 01/31/2024 13:40 EDT Office Visit [facility] Surgical Oncology - [address] [address] Maeve Morales, [address] [facility], [address] [place] [address] documented as of this encounter Procedures Procedure Name Priority Date/Time Associated Diagnosis Comments COMPREHENSIVE METABOLIC PANEL (ONCOLOGY USE ONLY-INC MG) STAT 08/13/2020 8:16 EDT Malignant 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, estrogen receptor negative (HCC-CMS) COMPLETE BLOOD COUNT AND DIFF, CHEMO STAT 08/13/2020 8:16 EDT Malignant 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, estrogen receptor negative (HCC-[facility]) documented in this encounter Results * (ABNORMAL) COMPLETE BLOOD COUNT AND DIFF, CHEMO (08/13/2020 8:16 EDT) WBC 13.23(H) 4.00 - 12.40 K/cmm 08/13/2020 8:42 [facility] RBC 5.24(H) 3.86 - 5.04 M/cmm 08/13/2020 8:42 [facility] Hemoglobin 15.3(H) 11.6 - 15.2 gm/dL 08/13/2020 8:42 [facility] HCT 45.6(H) 34.9 - 44.4 % 08/13/2020 8:42 [facility] MCV 87 81 - 98 fl 08/13/2020 8:42 [facility] MCH 29.2 26.7 - 33.3 pg 08/13/2020 8:42 [facility] MCHC 33.6 32.1 - 35.9 gm/dL 08/13/2020 8:42 [facility] RDW-CV 13.1 <14.7 % 08/13/2020 8:42 [facility] RDW-SD 41.1 <50.4 fl 08/13/2020 8:42 [facility] PLT 295 141 - 377 K/cmm 08/13/2020 8:42 [facility] MPV 10.0 9.5 - 12.7 fl 08/13/2020 8:42 [facility] % Neutrophils 72.9 % 08/13/2020 8:42 [facility] Absolute Neutrophils 9.64(H) 2.20 - 8.85 K/cmm 08/13/2020 8:42 [facility] Type of Differential: Auto 08/13/2020 8:42 [facility] Blood VENOUS BLOOD / Unknown Venipuncture / Unknown 08/13/2020 8:16 EDT 08/13/2020 8:29 EDT Queenie Conde MD PACKAGES & DNA PROBE ORDERABLES [facility] [address] [place] [address] * (ABNORMAL) COMPREHENSIVE METABOLIC PANEL (ONCOLOGY USE ONLY-INC MG) (08/13/2020 8:16 EDT) Sodium 138 136 - 145 mEq/L 08/13/2020 8:49 [facility] Potassium 4.4 3.5 - 5.0 mEq/L 08/13/2020 8:49 [facility] Chloride 103 96 - 110 mEq/L 08/13/2020 8:49 [facility] CO2 Total 24 22 - 32 mEq/L 08/13/2020 8:49 [facility] Glucose 171(H) 70 - 100 mg/dL 08/13/2020 8:49 [facility] BUN 12 10 - 26 mg/dL 08/13/2020 8:49 [facility] Creatinine 0.40(L) 0.52 - 1.04 mg/dL 08/13/2020 8:49 [facility] eGFR 127 >60 mL/min/1.7 3m2 08/13/2020 8:49 [facility] Comment:eGFR calculated mata asif CKD-EPI equation for non- Americans. Multiply eGFR by 1.16 for patients. Total Protein 7.4 6.3 - 8.2 g/dL 08/13/2020 8:49 [facility] Albumin 4.3 3.4 - 4.9 g/dL 08/13/2020 8:49 [facility] Alkaline Phosphatase 128(H) 38 - 126 U/L 08/13/2020 8:49 [facility] AST 47(H) 15 - 46 U/L 08/13/2020 8:49 EDT [facility] ALT 86(H) <35 U/L 08/13/2020 8:49 EDT [facility] Bilirubin, Total <0.5 <1.4 mg/dL 08/14/19 8:49 EDT [facility] Calcium 9.4 8.5 - 10.5 mg/dL 08/13/2020 8:49 EDT [facility] Calculated Calcium 9.2 8.5 - 10.5 mg/dL 08/13/2020 8:49 EDT [facility] Magnesium 1.8 1.7 - 2.8 mg/dL 08/13/2020 8:49 EDT [facility] Blood VENOUS BLOOD / Unknown Venipuncture / Unknown 08/13/2020 8:16 EDT 08/13/2020 8:29 EDT Queenie Conde MD CHEMISTRY & BLOOD GA S ORDERABLES Performing Organization Address City/State/[facility] Co de Phone Number [facility] [address] [place] [address] documented in this encounter Visit Diagnoses Diagnosis Malignant 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, estrogen receptor negative (HCC-CMS)- Primary documented in this encounter Administered Medications Inactive Administered Medications - up to 3 most recent administrations Medication Order MAR Action Action Date Dose Rate Site CARBOplatin (PARAPLATIN) 900 mg in dextrose 5% (D5W) 150 mL chemo infusion 900 mg (Target AUC = 6), intravenous, NOW X1, 1 dose, On Tue08/13/20 at 1300, Administer over 30 Minutes New Bag 08/13/2020 14:33 EDT 900 mg dexAMETHasone (DECADRON) 12 mg in sodium chloride (NS) 0.9 % 50 mL IVPB 12 mg, intravenous, Administer over 30 Minutes, NOW X1, 1 dose, On Tue08/13/20 at 0915, Routine New Bag 08/13/2020 9:20 EDT 12 mg diphenhydrAMINE (BENADRYL) 50 mg in sodium chloride (NS) 0.9 % 50 mL IVPB 50 mg, intravenous, Administer over 15 Minutes, NOW X1, 1 dose, On Tue08/13/20 at 0915, Routine New Bag 08/13/2020 9:35 EDT 50 mg diphenhydrAMINE (BENADRYL) injection 50 mg 50 mg, intravenous, PRN, 1 dose, Starting on Tue08/13/20 at 1222, Until Tue08/13/20 at 1223, administer for rash, itching and/or hives associated with a mild to moderate infusion reaction OR after epinephrine IM for an anaphylactic reaction., Routine Given 08/13/2020 12:23 EDT 25 mg famotidine (PEPCID) injection 20 mg 20 mg, intravenous, NOW X1, 1 dose, On Tue08/13/20 at 0915, Routine Given 08/13/2020 9:18 EDT 20 mg fosaprepitant (EMEND) 150 mg in sodium chloride (NS) 0.9 % 150 mL infusion 150 mg, intravenous, Administer over 30 Minutes, NOW X1, 1 dose, On Tue08/13/20 at 0915, Routine New Bag 08/13/2020 9:50 EDT 150 mg PACLitaxel (TAXOL) 347 mg in sodium chloride (NS) 0.9 % 500 mL chemo infusion 347 mg (rounded from 346.5 mg = 175 mg/m2 ? 1.98 m2 Treatment Plan BSA from Recorded weight), intravenous, NOW X1, 1 dose, On Tue08/13/20 at 1000, Administer over 3 Hours Restarted 08/13/2020 13:01 EDT New Bag 08/13/2020 10:26 EDT 347 mg palonosetron (ALOXI) injection 0.25 mg 0.25 mg, intravenous, NOW X1, 1 dose, On Tue08/13/20 at 0915, Routine Given 08/13/2020 9:16 EDT 0.25 mg sodium chloride 0.9 % (NS) infusion at 100 mL/hr, 250 mL, intravenous, CONTINUOUS, Starting on Tue08/13/20 at 0915, Until Klaudia 08/14/20 at 0915, Routine New Bag 08/13/2020 9:16 EDT 250 mL 100 mL/hr documented in this encounter Orders Medications Ordered That Juanito ht Not Have Been Administered Count Last Ordered Date First Ordered Date sodium chloride 0.9 % (flush) flush 20 mL 1 08/13/2020 Appointment Requests Count Last Ordered Date Fi rst Ordered Date ONCBCN INFUSION APPOINTMENT REQUEST 1 08/13 documented in this encounter Care Teams Zinc Plating Machine Operator Relationship Specialty Start Date End Date Batsheva Lira FNP [address] [phone] PCP - General 02/19/20 07/21/22 documented as of this encounter
--- OUTSIDE RECORDS SUMMARY | 2023-12-10 17:44 | XMS_ITS | Encounter Summary ---
Author Organization [facility] Address [address] [place] [address] Care Team Providers Care Environment Artist Name Role Phone Batsheva Lira JOHN Primary Care Provider Reason for Visit * Reason Onset Date Comments Social Work 07/23/2020 financial Encounter Details Date Type Department Care Team (Late st Contact Info) Description 07/23/[address] [facility] Cancer Center Hematology & Oncology - [address] [id number] Veronique Dye Social Work (financial) Social History [...] have Coronavirus / COVID-19? No / Unsure 07/18/2020 9:22 EST documented as of this encounter Functional Status [...] * Telephone Encounter - Veronique Dye - 07/23/2020 1222 EST PN assisted pt with applying for the [employer] and [employer] fund. Both applications have been submitted. PN notified pt that the [employer] monserrat just re-opened. Asked her to send a copy of her rent/mortgage or other household bill she would like to submit. Plan- financial assistance documented in this encounter Plan of Treatment Upcoming Encounters Date Type Department Care Team (Late st Contact Info) Description 01/31/2024 13:40 EDT Office Visit [facility] Surgical Oncology - [address] [address] Maeve Morales, DO [address] [facility], [facility], [address] [place] [phone] documented as of this encounter Visit Diagnoses Not on filedocumented in this encounter Care Teams Environment Artist Relationship Specialty Start Date End Date Batsheva Lira FNP [address] [phone] PCP - General 02/19/20 07/21/22 documented as of this encounter
--- OUTSIDE RECORDS SUMMARY | 2023-12-10 17:44 | XMS_ITS | Encounter Summary ---
Author Organization [facility] Address [address] [place] [address] Care Team Providers Care Film Sound Engineer Name Role Phone Batsheva Lira CORN BREEDER Primary Care Provider [phone] Pam Germain MD Unavailable [phone] Janay Duran BLANKET INSPECTOR Primary Care Provider Unava ilable Encounter Details Date Type Department Care Team (Late st Contact Info) Description 10/01/2020 Lab Requisition [facility] Pathology & Laboratory Medicine - [facility] [address] [place] [address] Judd Dye, JULIAN Acute pharyngitis, unspecified; Cough Social History Tobacco Use Types Packs/Day Years [...] 14:34 EDT documented as of this encounter Functional [...] 13:40 EDT Office Visit [facility] Surgical Oncology - [facility] [address] [place] [address] Maeve Morales, 111 [facility], [address] [place] [address] documented as of this encounter Procedures Procedure Name Priority Date/Time Associated Diagnosis Comments ZZCOVID-19 TEST [facility] Today 10/01/2020 14:15 EDT Acute pharyngitis, unspecified Cough COVID-19 TESTING Today 10/01/2020 14:1 5 EDT Acute pharyngitis, unspecified Cough documented in this encounter Results * COVID-19 TEST [facility] LAB PCR (10/01/2020 14:15 EDT) Swab NASAL / Unknown 10/01/2020 1 4:15 EDT 10/01/2020 20:31 EDT Judd Dye APRN MICROBIOLOGY - NERAL ORDERABLES [facility] [address] [place] [address] * COVID-19 TESTING (10/01/2020 14:15 EDT) COVID-19 rt-PCR Result Negative Negative 10/02/2020 19:31 EDT [facility] Comment: This test has not [...] history, and epidemiological information. Performed on the Clustrix instrument Performing Lab [facility] Lab 10/02/2020 19:31 EDT [facility] Swab NASAL / Unknown 10/01/2020 1 4:15 EDT 10/01/2020 20:31 EDT Judd Dye APRN MICROBIOLOGY - [facility] ORDERABLES [facility] [address] [place] [address] documented in this encounter Visit Diagnoses Diagnosis Acute pharyngitis, unspecified Cough documented in this encounter Care Teams Film Sound Engineer Relationship Specialty Start Date End Date Batsheva Lira FNP [facility] [address] [address] PCP - General 02/19/20 07/21/22 Janay Duran APRN [address] [address] PCP - General Family Medicine - Primary Care 07/22/22 Pam Germain MD [address] [address] Medical Oncology 03/22/22 documented as of this encounter
--- OUTSIDE RECORDS SUMMARY | 2023-12-10 17:44 | XMS_ITS | Encounter Summary ---
Author Organization [facility] Address [address] [place] [address] Care Team Providers Care Casting Assistant Name Role Phone Batsheva Lira JOHN Primary Care Provider [phone] Encounter Details Date Type Department Care Team (Late st Contact Info) Description 09/23/2020 15:00 EDT Ancillary Procedure [facility] Surgical Oncology - [facility] [place] [address] [place], [place] [id number] Social History Tobacco Use Types Packs/Day Years [...] No 07/15/2020 Cognitive Status Response Date of Assess ent Because of a physical, menta l, or emotional condition, does this person have serious difficulty concentrating, remembering, or making decisions? No 07/15/2020 documented as of this encounter Plan of Treatment Upcoming Encounters Date Type Department Care Team (Late st Contact Info) Description 01/31/2024 13:40 EDT Office Visit [facility] Surgical Oncology - [facility] [address] [place], [place] [address] Maeve Morales DO 111 [facility], [facility], [address] [place] [address] documented as of this encounter Procedures Procedure Name Priority Date/Time Associated Diagnosis Comments [facility] BREAST BREAST [facility] ONLY Routine 09/23/2020 16:00 EDT documented in this encounter Results * [facility] BREAST BREAST [facility] ONLY (09/23/2020 16:00 EDT) Narrative [facility] POINT OF CARE - 09/23/2020 16:00 EDT This is a non-reportable exam. Maeve Morales DO [facility] US POC ORDERABL ES [facility] POINT OF CARE documented in this encounter Visit Diagnoses Not on filedocumented in this encounter Care Teams Casting Assistant Relationship Specialty Start Date End Date Batsheva Lira FNP [address] [address] PCP - General 02/19/20 07/21/22 documented as of this encounter
--- OUTSIDE RECORDS SUMMARY | 2023-12-10 17:44 | XMS_ITS | Encounter Summary ---
Author Organization [facility] Address [address] [place] [address] Care Team Providers Care Surety Bond Agent Name Role Phone Batsheva Lira JOHN Primary Care Provider [phone] Reason for Visit * Reason Comments Chemotherapy And Provider Visit Encounter Details Date Type Department Care Team (Late st Contact Info) Description 08/13/2020 8:30 EDT Office Visit [facility] Hematology & Oncology - [address] [address] Liat Honeycutt, PACalinC [address] [place] [address], [address] [place] [address] Malignant neoplasm of upper-inner quadrant [...] Sign Reading Time Taken Comments Blood Pressure 126/84 08/13/2020 08 EDT Pulse 104 08/13/2020 08 EDT Temperature 35.7 ??C (96.3 ??F) 08/13/2020 08 EDT Respiratory Rate 16 08/13/2020 0820 EDT Oxygen Saturation 97% 08/13/2020 08 EDT Inhaled Oxygen Concentration - - Weight 86.4 kg (190 lb 8 oz) 08/13/2020819 EDT Height 167.1 cm (5' 5.79) 08/13/2020819 EDT Body Mass Index 30.95 08/13/2020819 EDT documented in this encounter Functional Status [...] Dispensed Refills Start Date End Da te lidocaine-prilocaine (EMLA) cream Apply to port site and cover, 1 hr before planned port access 25 g 1 08/13/2020 03/26/2021 traMADol (ULTRAM) 50 mg tablet Take 1 Tab by mouth every 6 hours as needed for Pain. Daily Max: 200 mg 20 Tab 08/13/2020 11/27/2020 documented in this encounter Progress Notes * Liat Honeycutt PA-C - 08/13/2020 0830 EDT Austin Squires is a 44 y.o.yo female presenting in clinic today for assessment prior to ongoing chemotherapy, given preoperatively for triple negative breast cancer Chief Complaint Patient presents with ??? 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 This revealed a nuclear grade 3 ER negative NC negative HER2 negative ductal carcinoma. Staging evaluation did reveal a prominent L IM lymphnode butwas otherwise negative. Given her triple negative histology, she proceeded to neoadjuvant chemotherapy, starting taxol/carboplatin on 07/22/20 as part of the SIKOV regimen. SUBJECTIVE: Austin returns for a second round of every 3-week Taxol/carboplatin. She was in touch with our office with a few issues over the last few weeks. She developed generalized body aches about 2 days after her infusion, which persisted for about 4 days, improving along the way. Rdpx-aza-khopita analgesics did not give her much relief. She also developed itchy hives about 3 days after her infusion, which were migratory and quite pruritic, and eventually did respond to Benadryl. They persisted for a few days as well. She took Compazine for a couple of days, perhaps twice a day, and reallydid not notice any major nausea. Some heartburn and reflux which was minimally bothersome. She did notice some mild tingling into her fingers and toes, but no proprioception or fine motor function difficulty. She requests a prescription for EMLA; she now has a port in place which is healing well and a bit itchy. She did have a slightly tender bump around the site of her peripheral IV, which she called us about, but this is now resolved entirely. REVIEW OF SYSTEMS: I went through verbal review of symptoms with the patient. She has no pain currently. No cough or shortness of breath. She is experienced hair loss. No mouth sores or thrush. No swelling in her ankles. Overall her system review today is without acute complaints. Past Medical History: Diagnosis Date ??? Exercise [...] of breast in female, estrogen receptor negative ([facility]) 07/15/2020 Priority: Medium Past Surgical History: Procedure Laterality Date ??? CHOLECYSTECTOMY ??? OTHER SURGICAL HISTORY 1998, 2011 epidural with childbirth Family History Problem Relation Age of Onset ??? Lung Cancer Mother Social History Socioeconomic History ??? Marital status: Spouse name: Not on file ??? Number of children: Not on file ??? Years of education: Not on file ??? Highest education level: Not on file Occupational History ??? Not on file Social Needs ??? Financial resource strain: Not on file ??? Food insecurity Worry: Not on file Inability: Not on file ??? Transportation needs Medical: Not on file Non-medical: Not on file Tobacco Use ??? Smoking status: Current Every Day Smoker Packs/day: 0.50 Years: 30.00 Pack years: 15.00 Types: Cigarettes ??? Smokeless tobacco: Never Used ??? Tobacco comment: pt also vapes Substance and Sexual Activity ??? Alcohol use: Yes Comment: rarely ??? Drug use: Never ??? Sexual activity: Not on file Lifestyle ??? Physical activity Days per week: Not on file Minutes per session: Not on file ??? Stress: Not on file Relationships ??? Social connections Talks on phone: Not on file Gets together: Not on file Attends yarsanism service: Not on file Active member of club or organization: Not on file Attends meetings of clubs or organizations: Not on file Relationship status: Not on file ??? Intimate partner violence Fear of current or ex partner: Not on file Emotionally abused: Not on file Physically abused: Not on file Forced sexual activity: Not on file Other Topics Concern ??? Not on file Social History Narrative ??? Lives in [facility]. Medications Prior to Today's Visit Medication Sig ??? amLODIPine (NORVASC) 2.5 mg tablet Take 2.5 mg by mouth daily. ??? escitalopram oxalate (LEXAPRO) 10 mg tablet Take 20 mg by mouth daily. ??? INTRAUTERINE DEVICE, IUD, INTRAUTERINE by intrauterine route. ??? MELOXICAM ORAL Take by mouth as needed. ??? omeprazole magnesium (PRILOSEC ORAL) Take by mouth. ??? ondansetron (ZOFRAN-ODT) 8 mg disintegrating tablet Take 1 Tab by mouth every 8 hours as neededfor Nausea. ??? oxybutynin (DITROPAN) 5 mg tablet Take 5 mg by mouth daily. ??? prochlorperazine (COMPAZINE) 10 mg tablet Take 1 Tab by mouth every 6 hours as needed for Nausea. ??? UNKNOWN TO PATIENT No facility-administered medications prior to visit. Allergies Allergen Reactions ??? Oxycodone Other (See Comments) Made her hyper Objective: BP 126/84 Pulse 104 Temp 35.7 ??C (96.3 ??F) (Tympanic) Resp 16 Ht 167.1 cm (65.79) Wt 86.4 kg (190 lb 8 oz) SpO2 97% BMI 30.95 kg/m?? General appearance: alert, no distress Head: Normocephalic, without obvious abnormality, atraumatic. Treatment related alopecia. Neck: supple, symmetrical, trachea midline and [...] LABORATORY: Today's complete metabolic panel significant for glucose of 171. AST/ALT 47/86, alkaline phosphatase slightly up at 128. Today's hemogram shows WBC 13.23, with an ANC of 9.64. Hemoglobin 15.3. Platelets 295. ASSESSMENT: Triple negative breast cancer, with diagnosis and therapy as noted above. Austin tolerated her first round of neoadjuvant chemotherapy reasonably well, with some of the expected side effects. She had a fair amount of Taxol related body aches, starting about 2 days from her infusion and lasting for several days. She developed sporadic hives for a few days which did respond to Benadryl and were not accompanied by dyspnea or other symptoms. Labs are in range and she is fit to proceed with treatment today. PLAN: 1. Day 1 cycle 2 of 4 planned of every 3-week Taxol/carboplatin (with four cycles of AC to follow),with no dose adjustments. Standard premedications. 2. There was discussion of the patient receiving pegfilgrastim after her first treatment, however later the decision was made to hold off, and her ANC is in good range today without growth factor. She will receive pegfilgrastim during AC. 3. For post Taxol pain, prescribed tramadol to be taken as needed for a few days after treatment. 5. Follow-up with Dr. Morales in surgical oncology on 09/23/2020, for assessment of response to therapy thus far. 4. Follow-up in 3 weeks for return visit with Dr. Conde, labs and assessment prior to cycle 3, sooner with acute concerns or questions. I was directly supervised by Dr Janet Rosado, who was in the suite and immediately available for the entire time the above documented service was provided. Liat Honeycutt PA-C 08/13/2020 8:05 documented in this encounter Plan of Treatment Upcoming Encounters Date Type Department Care Team (Late st Contact Info) Description 01/31/2024 13:40 EDT Office Visit [facility] Surgical Oncology - [address] [id number] Maeve Morales DO 111 [facility], [address] [place] [id number] documented as of this encounter Visit Diagnoses Diagnosis Malignant 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, estrogen receptor negative (HCC-CMS)- Primary documented in this encounter Discontinued Medications Medication Sig Discontinue Reason Start Date End Da te MELOXICAM ORAL Take by mouth as needed. 08/13/2020 UNKNOWN TO PATIENT 08/13/2020 documented as of this encounter Historical Medications * This list may reflect changes made after this encounter. Medication Sig Dispensed Refills Start Date End Date omeprazole magnesium (PRILOSEC ORAL) Take by mouth. 10/07/2020 added in this encounter Orders Appointment Requests Count Last Ordered Date Fi rst Ordered Date ONCBCN CLINIC APPOINTMENT REQUEST 2 021 08/13/2020 ONCBCN INFUSION APPOINTMENT REQUEST 1 09/25 documented in this encounter Care Teams Surety Bond Agent Relationship Specialty Start Date End Date Batsheva Lira FNP [address] [place] [phone] PCP - General 02/19/20 07/21/22 documented as of this encounter
--- OUTSIDE RECORDS SUMMARY | 2023-12-10 17:44 | XMS_ITS | Encounter Summary ---
Author Organization [facility] Address [address] [place] [address] Care Team Providers Care Unisaw Operator Name Role Phone Batsheva Lira JOHN Primary Care Provider [phone] Reason for Visit * Reason Onset Date Comments Appointment Related 09/01/2020 Encounter Details Date Type Department Care Team (Late st Contact Info) Description 09/01/2020 Telephone [facility] Hematology & Oncology - [facility] [address] [place] [address] [place] [id number] [address] Appointment Related Social History Tobacco Use Types [...] encounter Miscellaneous Notes * Telephone Encounter - Soham Pastor MA - 09/01/2020 1035 EDT Tried to reach patient about telemedicine appointment on 09/02/20 but unable to leave voicemail. SOHAM PASTOR MA documented in this encounter Plan of Treatment Upcoming Encounters Date Type Department Care Team (Late st Contact Info) Description 01/31/2024 13:40 EDT Office Visit [facility] Surgical Oncology - [address] [phone] Maeve Morales, 111 [facility], [address] [place] [address] documented as of this encounter Visit Diagnoses Not on filedocumented in this encounter Care Teams Unisaw Operator Relationship Specialty Start Date End Date Batsheva Lira FNP [address] [address] PCP - General 02/19/20 07/21/22 documented as of this encounter
--- OUTSIDE RECORDS SUMMARY | 2023-12-10 17:44 | XMS_ITS | Encounter Summary ---
Author Organization [facility] Address [address] [place] [address] Care Team Providers Care Human Resources Analyst Name Role Phone Batsheva Lira HUMANITIES DEPARTMENT CHAIR Primary Care Provider [phone] Pam Germain MD Unavailable [phone] Janay Duran ELECTRICIAN BUS Primary Care Provider Unava ilable Encounter Details Date Type Department Care Team (Late st Contact Info) Description 10/01/2020 Lab Requisition [facility] Pathology & Laboratory Medicine - [facility] [address] [place] [address] Judd Dye, JULIAN Acute pharyngitis, unspecified; Cough [...] 01/31/2024 13:40 EDT Office Visit [facility] Surgical Oncology - [facility] [address] [place] [address] Maeve Morales, 111 [facility], [address] [place] [address] documented as of this encounter Procedures Procedure Name Priority Date/Time Associated Diagnosis Comments GROUP A STREP CULTURE Routine 10/01/2020 17:15 EDT Acute pharyngitis, unspecified Cough documented in this encounter Results * GROUP A STREP CULTURE (10/01/2020 17:15 EDT) Organism ID No Group A Beta Hemolytic Streptococcus isolated 10/03/2020 8:07 EDT [facility] Swab ENTIRE THROAT / Unknown 10/01/2020 17:15 EDT 10/01/2020 20:59 EDT Judd Dye APRN MICROBIOLOGY - NERAL ORDERABLES [facility] [address] [place] [address] documented in this encounter Visit Diagnoses Diagnosis Acute pharyngitis, unspecified Cough documented in this encounter Care Teams Human Resources Analyst Relationship Specialty Start Date End Date Batsheva Lira FNP [address] [address] PCP - General 02/19/20 07/21/22 Janay Duran APRN [address] [place] [phone] PCP - General Family Medicine - Primary Care 07/22/22 Pam Germain MD [address] [place] [address] Medical Oncology 03/22/22 documented as of this encounter
--- OUTSIDE RECORDS SUMMARY | 2023-12-10 17:44 | XMS_ITS | Encounter Summary ---
Author Organization [facility] Address [address] [place] [address] Care Team Providers Care Clinical Account Liaison Name Role Phone Batsheva Lira JOHN Primary Care Provider [phone] Encounter Details Date Type Department Care Team (Late st Contact Info) Description 09/03/2020 Orders Only [facility] Center Hematology & Oncology - [address] [address] Lolly Antunez, RADHA Malignant neoplasm of upper-inner [...] Description 01/31/2024 13:40 EDT Office Visit [facility] [place] Surgical Oncology - [facility] [address] [place], [place] [address] Maeve Morales, [address] [facility], [facility], [address] [place] [address] documented as of this encounter Visit Diagnoses Diagnosis Malignant 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, estrogen receptor negative (HCC-CMS)- Primary documented in this encounter Orders Appointment Requests Count Last Ordered Date Fi rst Ordered Date ONCBCN CLINIC APPOINTMENT REQUEST 3 021 10/07/2020 ONCBCN INFUSION APPOINTMENT REQUEST - CALCULATED 4 11/27/2020 10/16/2020 documented in this encounter Care Teams Clinical Account Liaison Relationship Specialty Start Date End Date Batsheva Lira FNP [address] [address] PCP - General 02/19/20 07/21/22 documented as of this encounter
--- OUTSIDE RECORDS SUMMARY | 2023-12-10 17:44 | XMS_ITS | Encounter Summary ---
Author Organization [facility] Address [address] [place] [address] Care Team Providers Care Restoration Officer Name Role Phone Batsheva Lira JOHN Primary Care Provider [phone] Reason for Visit * Reason Comments Chemotherapy And Provider Visit Follow-up Encounter Details Date Type Department Care Team (Late st Contact Info) Description 07/22/2020 9:00 EST Office Visit [facility] Hematology & Oncology - [facility] [address] [place] [address] [place] [address] [place] [phone] Malignant neoplasm of upper-inner quadrant of [...] 9:22 EST documented as of this encounter Last Filed Vital Signs Vital Sign Reading Time Taken Comments Blood Pressure 142/85 07/22/2020 0759 EST Pulse 96 07/22/2020 0759 EST Temperature 36.8 ??C (98.2 ??F) 07/22/2020 0759 EST Respiratory Rate 18 07/22/2020 0759 EST Oxygen Saturation 96% 07/22/2020 0759 EST Inhaled Oxygen Concentration - - Weight 84.6 kg (186 lb 9.6 oz) 07/22/[address] Height 167.1 cm (5' 5.79) 07/22/2020 0759 EST Body Mass Index 30.31 07/22/2020 0759 EST documented in this encounter Functional Status [...] Dispensed Refills Start Date End Da te prochlorperazine (COMPAZINE) 10 mg tablet Take 1 Tab by mouth every 6 hours as needed for Nausea. 30 Tab 5 07/22/2020 12/25/2020 documented in this encounter Progress Notes * Queenie Conde MD - 07/22/2020 0900 EST REASON FOR OFFICE VISIT Austin is a 44-year-old female here to initiate neoadjuvant chemotherapy for her breast cancer. ?? 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 She then underwent imaging and a biopsy on 224 of a 2.1 cm mass revealed a nuclear grade 3 ER negative PA negative for B2 negative ductal carcinoma. Staging evaluation did reveal a prominent L IM lymphnode but otherwise negative. 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 ?? SUBJECTIVE: Austin is doing well and ready to start chemotherapy. She has no new constitutional, cardiovascular,pulmonary, GI, ,SEISMIC PROSPECTING OBSERVER, musculoskeletal, psychiatric, neurologic, endocrine, or heme symptoms. ?? PAST MEDICAL HISTORY: 1. Urinary incontinence 2. Hypertension, well-controlled 3. History of kidney stones, none for the past 6 years 4. Cholecystectomy in 2018 ?? MEDS Mirena IUD, Lexapro, oxybutynin ?? MENSTRUAL HISTORY:Austin is unclear when she began menstruating. She is G3, P3 with her first full-term at age 23. She is premenopausal. She did take oral contraceptives and recently had an IUD IUD placed (Mirena IUD). ?? 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 She does smoke off and on about half a pack per day. She does not consume alcohol. ?? FAMILY HISTORY: [...] his 90s. ??Her paternal relatives are of [place] descent. ?? Objective: BP (!) 142/85 Pulse 96 Temp 36.8 ??C (98.2 ??F) (Tympanic) Resp 18 Ht 167.1 cm (65.79) Wt 84.6 kg (186 lb 9.6 oz) LMP 07/03/2020 SpO2 96% BMI 30.31 kg/m?? General: Comfortable, cooperative and in no [...] or edema; No calf tenderness BREAST EXAM: not performed DIAGNOSTIC DATA Lab Results Component Value Date WBC 8.35 07/22/2020 HGB 14.9 07/22/2020 PLT 297 07/22/2020 Her metabolic panel is normal with Cr 0.51, sightly elevated AST (80) and ALT (114) but normal Biliand AlkPhos. ASSESSMENT: This is a 44-year old female with recently diagnosed triple negative breast cancer (clinical T2N0).We discussed her case in our preconference and agreed on a neoadjuvant approach which given the size of her mass I do think is reasonable. Her staging is negative although she still does have a slightly prominent internal mammary lymph node. Today we will begin the psych off regimen with Taxol and carboplatinum for 4 cycles. Austin has been cautioned to not take ondansetron given that she is on Lexapro. We did a EKG today and her QTC is 0.4. I encouraged her to try and keep her ondansetron use under 16 mg daily. I also reviewed signs and symptoms of dysrhythmias. PLAN: 1. Austin will receive day 1 of Taxol 175 mg/m?? and carboplatinum AUC of 6 today. This will be supported with Neulasta for prevention of neutropenic fever in the time of Covid. 2. Austin does have a cut on her finger and was cautioned to let us know if this should get red or painful as this may be a source of infection 3. Today I spent more than 40 minutes reviewing records, coordinating care, seeing and examining Austin and documenting this visit Queenie Conde MD documented in this encounter Plan of Treatment Upcoming Encounters Date Type Department Care Team (Late st Contact Info) Description 01/31/2024 13:40 EDT Office Visit [facility] Surgical Oncology - [facility] [address] [place] [address] Maeve Morales, DO 111 [facility], Level 2 [place] [address] documented as of this encounter Procedures Procedure Name Priority Date/Time Associated Diagnosis Comments ECG REPORT - SCANNED 01/26/2021 8:38 EDT ECG REPORT - SCANNED 01/26/2021 7:54 EDT documented in this encounter Results * ECG REPORT - SCANNED (01/26/2021 8:38 EDT) 01/26/2021 8:38 EDT Scan 2 Computer Architect PROCEDURE/MINOR KHURRAM GICAL ORDERABLES * ECG REPORT - SCANNED (01/26/2021 7:54 EDT) 01/26/2021 7:54 EDT Scan 2 Computer Architect PROCEDURE/MINOR KHURRAM GICAL ORDERABLES documented in this encounter Visit Diagnoses Diagnosis Malignant 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, estrogen receptor negative (HCC-CMS)- Primary documented in this encounter Orders Appointment Requests Count Last Ordered Date Fi rst Ordered Date ONCBCN CLINIC APPOINTMENT REQUEST 1 021 documented in this encounter Care Teams Restoration Officer Relationship Specialty Start Date End Date Batsheva Lira FNP [address] [phone] PCP - General 02/19/20 07/21/22 documented as of this encounter
--- OUTSIDE RECORDS SUMMARY | 2023-12-10 17:44 | XMS_ITS | Encounter Summary ---
Author Organization [facility] Address [address] [place] [address] Care Team Providers Care Slurry Control Tender Name Role Phone Batsheva Lira JOHN Primary Care Provider [phone] Reason for Visit * Reason Onset Date Comments Follow-up 07/24/2020 Encounter Details Date Type Department Care Team (Late st Contact Info) Description 07/24/2020 Telephone [facility] Cancer Center Hematology & Oncology - [address] [id number] Lolly Antunez RN Follow-up Social History Tobacco Use Types [...] Telephone Encounter - Lolly Antunez RN - 07/24/2020 0908 EST Called Austin to follow up on C1D1 of Taxol/Carbo. Patient reports feeling groggy, some consitpationfor which she has only taken Colace, advised her to add Miralax. Reinforced with patient the use ofantiemetic, importance of hydration, and control of diarrhea. Pt verbalized understanding. Pt reports she is scheduled for her first COVID vaccine on 08/08. Encouraged pt to call clinic 06/12 if any issues developed. Pt has PAC#. documented in this encounter Plan of Treatment Upcoming Encounters Date Type Department Care Team (Late st Contact Info) Description 01/31/2024 13:40 EDT Office Visit [facility] Surgical Oncology - [address] [address] Maeve Morales, DO 111 [facility], [address] 2 [place] [phone] documented as of this encounter Visit Diagnoses Not on filedocumented in this encounter Care Teams Slurry Control Tender Relationship Specialty Start Date End Date Batsheva Lira FNP [address] [phone] PCP - General 02/19/20 07/21/22 documented as of this encounter
--- OUTSIDE RECORDS SUMMARY | 2023-12-10 17:44 | XMS_ITS | Encounter Summary ---
Author Organization [facility] Address [address] [place] [address] Care Team Providers Care Strategy Specialist Name Role Phone Batsheva Lira JOHN Primary Care Provider [phone] Reason for Visit * Reason Onset Date Comments Social Work 10/01/2020 financial Encounter Details Date Type Department Care Team (Late st Contact Info) Description 10/01/2020 Telephone [facility] Cancer Center Hematology & Oncology - [facility] [address] [place], [place] [phone] Veronique Dye Social Work (financial) Social History [...] * Telephone Encounter - Veronique Dye - 10/01/2020 0947 EDT EROS approved pt for the following award: [employer]: $640.5 (Insurance). PN notified pt of the award and that CHARI will send a check directly to the vendor. Plan- Available as needed. documented in this encounter Plan of Treatment Upcoming Encounters Date Type Department Care Team (Late st Contact Info) Description 01/31/2024 13:40 EDT Office Visit [facility] Surgical Oncology - [address] [address] Maeve Morales, DO 111 [facility], [address] [place] [phone] documented as of this encounter Visit Diagnoses Not on filedocumented in this encounter Care Teams Strategy Specialist Relationship Specialty Start Date End Date Batsheva Lira FNP [address] [phone] PCP - General 02/19/20 07/21/22 documented as of this encounter
--- OUTSIDE RECORDS SUMMARY | 2023-12-10 17:44 | XMS_ITS | Encounter Summary ---
Author Organization [facility] Address [address] [place] [address] Care Team Providers Care E Commerce Marketing Analyst Name Role Phone Batsheva Lira JOHN Primary Care Provider [phone] Encounter Details Date Type Department Care Team (Late st Contact Info) Description 08/13/2020 Documentation Visit [facility] Cancer Center Hematology & Oncology - [facility] [address] [place] [address] Veronique Dye Social History Tobacco Use Types Packs/Day Years [...] as of this encounter Progress Notes * Veronique Dye - 08/13/2020 1211 EDT PN met with pt in the infusion bay and I gave her a wig stand and nylon wig caps. Updated pt that [facility] approved her wig request and has ordered her wig. She should expect deliver within a week to 10 days. No other needs at this time. Available as needed. documented in this encounter Plan of Treatment Upcoming Encounters Date Type Department Care Team (Late st Contact Info) Description 01/31/2024 13:40 EDT Office Visit [facility] Surgical Oncology - [address] [id number] Maeve Morales, DO 111 [facility], [address] [place] [phone] documented as of this encounter Visit Diagnoses Not on filedocumented in this encounter Care Teams E Commerce Marketing Analyst Relationship Specialty Start Date End Date Batsheva Lira FNP [address] [place] [phone] PCP - General 02/19/20 07/21/22 documented as of this encounter
--- OUTSIDE RECORDS SUMMARY | 2023-12-10 17:44 | XMS_ITS | Encounter Summary ---
Author Organization [facility] Address [address] [place] [address] Care Team Providers Care Twisting Department End Finder Name Role Phone Batsheva Lira JOHN Primary Care Provider [phone] Encounter Details Date Type Department Care Team (Late st Contact Info) Description 09/04/2020 Documentation Visit [facility] Cancer Center Hematology & Oncology - [facility] [address] [place] [address] Veronique Dye Social History Tobacco Use Types [...] encounter Progress Notes * Veronique Dye - 09/04/2020 1152 EDT PN met with pt in the Infusion [place] and obtained her signature for the JAF application. Application submitted electronically. Pt is aware that it can take up to 4-5 weeks for a decision to be made. Otherwise, pt reports she doing well and stated no other needs at this time. documented in this encounter Plan of Treatment Upcoming Encounters Date Type Department Care Team (Late st Contact Info) Description 01/31/2024 13:40 EDT Office Visit [facility] Surgical Oncology - [address] [address] Maeve Morales, DO [address] [place] [address], [address] [place] [phone] documented as of this encounter Visit Diagnoses Not on filedocumented in this encounter Care Teams Twisting Department End Finder Relationship Specialty Start Date End Date Batsheva Lira FNP [address] [phone] PCP - General 02/19/20 07/21/22 documented as of this encounter
--- OUTSIDE RECORDS SUMMARY | 2023-12-10 17:44 | XMS_ITS | Encounter Summary ---
Author Organization [facility] Address [address] [place] [address] Care Team Providers Care Investment Specialist Name Role Phone Batsheva Lira JOHN Primary Care Provider [phone] Reason for Visit * Reason Onset Date Comments Social Work 08/12/2020 wig Encounter Details Date Type Department Care Team (Late st Contact Info) Description 08/12/2020 Telephone [facility] Cancer Center Hematology & Oncology - [address] [phone] Veronique Dye Social Work (wig) Social History Tobacco Use Types Packs/Day Years [...] * Telephone Encounter - Veronique Dye - 08/12/2020 0841 EDT Pt is interested in purchasing a wig through [facility]. PN provided assistance. Once she has picked a style, PN will complete a HAP application and wig request. Addendum: Pt picked out a wig. PN filled out a HAP Intake form and sent a wig request to [facility]. PN will connect with pt tomorrow to bring her a wig stand and nylon caps. Plan- Available as needed. documented in this encounter Plan of Treatment Upcoming Encounters Date Type Department Care Team (Late st Contact Info) Description 01/31/2024 13:40 EDT Office Visit [facility] Surgical Oncology - [address] [phone] Maeve Morales, 111 [facility], [address] [place] [phone] documented as of this encounter Visit Diagnoses Not on filedocumented in this encounter Care Teams Investment Specialist Relationship Specialty Start Date End Date Batsheva Lira FNP [address] [place] [phone] PCP - General 02/19/20 07/21/22 documented as of this encounter
--- OUTSIDE RECORDS SUMMARY | 2023-12-10 17:44 | XMS_ITS | Encounter Summary ---
Author Organization [facility] Address [address] [place] [address] Care Team Providers Care Clinical Quality Manager Name Role Phone Batsheva Lira JOHN Primary Care Provider [phone] Reason for Visit * Reason Comments Follow-up Encounter Details Date Type Department Care Team (Late st Contact Info) Description 09/23/2020 15:00 EDT Office Visit [facility] Surgical Oncology - [address] [phone] Maeve Morales, DO 111 [facility], [facility] [address] [place] [phone] Malignant neoplasm of left breast in female, [...] Sign Reading Time Taken Comments Blood Pressure 143/88 09/23/2020 1444 EDT Pulse 109 09/23/2020 1444 EDT Temperature 36.4 ??C (97.6 ??F) 09/23/2020 1444 EDT Respiratory Rate - - Oxygen Saturation - [...] Progress Notes * Maeve Morales, DO - 09/23/2020 1500 EDT Austin is seen in the office today in follow-up for her left breast cancer. As you recall this is a patient that had a palpable abnormality in the upper inner quadrant of the left breast that her MOBILE UI/UX DESIGNER doctor identified in June 2019. 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 She is currently undergoing neoadjuvant chemotherapy. She is getting her fourth dose of TC next week. She will then go on to 4 cycles of AC. This is going reasonably well although she has a small amount of neuropathy and is feeling somewhat fatigued. She had genetic testingwhich was negative. She met with Dr. Juanito Carcamo to discuss reconstruction. On exam her breasts are examined in the seated and supine position I am unable to feel the mass in her breast. Ultrasound is undertaken and shows the mass in the upper inner quadrant of the left breast adjacent to a clip. Today it measures 1 cm in greatest dimension. Medical decision making Austin was proud to tell me that she has quit smoking and she is over a weekout from that. She is leaning towards bilateral mastectomies because she wants to decrease her riskof a new cancer as much as possible. She would like to do that as soon as possible after she completes chemotherapy. She is scheduled to complete chemotherapy in November so we will look for sometime in A ugust in conjunction with our plastic surgery colleagues. I will see Austin back mid November. She wouldalso like her port out at that time. documented in this encounter Plan of Treatment Upcoming Encounters Date Type Department Care Team (Late st Contact Info) Description 01/31/2024 13:40 EDT Office Visit [facility] Surgical Oncology - [facility] [address] [place], [place] [address] Maeve Morales DO 111 [facility], [address] [place] [address] documented as of this encounter Procedures Procedure Name Priority Date/Time Associated Diagnosis Comments ORDERS - SCANNED 10/01/2020 12:32 EDT documented in this encounter Results * ORDERS - SCANNED (10/01/2020 12:32 EDT) 10/01/2020 12:3 2 EDT Scan 2 Vise Hand ADMISSION ORDERABLE S documented in this encounter Visit Diagnoses Diagnosis Malignant neoplasm of left breast in female, estrogen receptor negative, unspecified site of breast ([facility])- Primary documented in this encounter Historical Medications * This list may reflect changes made after this encounter. Medication Sig Dispensed Refills Start Date End Date varenicline tartrate (CHANTIX ORAL) Take by mouth daily. 11/27 added in this encounter Care Teams Clinical Quality Manager Relationship Specialty Start Date End Date Batsheva Lira FNP [address] [phone] PCP - General 02/19/20 07/21/22 documented as of this encounter
--- OUTSIDE RECORDS SUMMARY | 2023-12-10 17:44 | XMS_ITS | Encounter Summary ---
Author Organization [facility] Address [address] [place] [address] Care Team Providers Care Senior Tax Analyst Name Role Phone Batsheva Lira JOHN Primary Care Provider [phone] Reason for Referral * Cardiology (Routine) - Closed Specialty Diagnoses / Procedures Referred By Contac t Referred To Contact Diagnoses Malignant neoplasm of left breast in female, estrogen receptor negative, unspecified site of breast (HCC-CMS) Procedures TRANSTHORACIC ECHO (TTE) [place] [address] [phone] Referral ID Status Reason Start Date Expiration Date Visits Re quested Visits Authorized [id number] Closed 07/15/2020 1 1 Reason for Visit * Cardiology (Routine) - Closed Specialty Diagnoses / Procedures Referred By Contac t Referred To Contact Diagnoses Malignant neoplasm of left breast in female, estrogen receptor negative, unspecified site of breast (HCC-CMS) Procedures TRANSTHORACIC ECHO ([place]E) [place] [address] [place] [phone] Referral ID Status Reason Start Date Expiration Date Visits Re quested Visits Authorized [id number] Closed 07/15/2020 1 1 Encounter Details Date Type Department Care Team (Latest Contact Info) Description 10/08/2020 10:15 EDT - 10/08/2020 23:59 EDT Hospital Encounter [facility] Non-Invasive Cardiology - [address] [address] Malignant neoplasm of left breast in female, estrogen receptor negative, unspecified site of breast (HCC-CMS) Discharge Disposition: Home or Self Care [...] 10:28 EDT documented as of this encounter Last Filed Vital Signs Vital Sign Reading Time Taken Comments Blood Pressure 131/83 10/08/2020 1135 EDT Pulse - - Temperature - - Respiratory Rate - - Oxygen Saturation - - Inhaled Oxygen Concentration - - Weight 87.5 kg (193 lb) 10/08/2020 1135 EDT Height 167.6 cm (5' 6) 10/08/2020 1135 EDT Body Mass Index 31.15 10/08/2020 1135 EDT documented in this encounter Functional Status [...] Info) Description 01/31/2024 13:40 EDT Office Visit [facility] Surgical Oncology - [address] [address] Maeve Morales, DO [address] [place] [address], [facility], [address] [place] [phone] (work) documented as of this encounter Procedures Procedure Name Priority Date/Time Associated Diagnosis Comments TRANSTHORACIC ECHO (TTE) COMPLETE Routine 10/08/2020 11:20 EDT Malignant neoplasm of left breast in female, estrogen receptor negative, unspecified site of breast (HCC-CMS) documented in this encounter Results * TRANSTHORACIC ECHO (TTE) COMPLETE W/DOPPLER W/CF NO CONTRAST (10/08/2020 11:20 EDT) LA Atrial Length A2C 4.6 cm MERGE [facility] O LA Atrial Area A4C 12.6 cm2 [facility] LA ID/bsa, A-P 1.2 cm/m2 [facility] LA ID, A-P, ES 2.3 cm [facility] LV PW thickness, ED, PLAX 0.9 0.6 - 1.1 cm [facility] Aortic root ID 3.1 cm [facility] LV ejection fraction, 1-p A4C 71 % [facility] LV e', lateral 0.07 m/s [facility] Mitral deceleration time 236 ms [facility] LV IVRT, DP 65 msec [facility] LVOT area 3.1 cm2 [facility] Mitral E-wave peak velocity 0.7 m/s [facility] Mitral A-wave peak velocity 1.0 m/s [facility] LV Systolic Volume Index 11.0 mL/m2 [facility] LV Diastolic Volume Index 37.0 mL/m2 [facility] LA Atrial Length A4C 3.8 cm [facility] O LVOT ID, S 2.0 cm [facility] EF 70 % [facility] LA volume, ES, BP 32.0 ml [facility] LA volume/bsa, ES, A4C 17.0 ml/m2 [facility] LA volumes, ES, A4C 33.0 ml [facility] LA volume/bsa, ES, BP 16.0 ml/m2 [facility] LV Systolic Volume 22 mL [facility] LV Diastolic Volume 73 mL [facility] Interventricular Septum to Posterior Wall Thickness Ratio 1 [facility] IVS thickness, ED, PLAX 0.9 cm [facility] LV e', medial 0.09 m/s [facility] LV e', average 0.08 m/s [facility] Ascending aorta ID, a-p 2.6 cm [facility] LA Atrial Area A2C 12.6 cm2 [facility] LA/aortic root ratio 0.74 [facility] O LV ID, ED, PLAX 3.8 3.5 - 6.0 cm [facility] LV ID, ES, PLAX 2.7 2.1 - 4.0 cm [facility] LV end diastolic volume 1-p A2C 65 ml [facility] LV ejection fraction, 1-p A2C 69 % [facility] LV E/e', lateral 10.0 [facility] LV E/e', medial 10.0 [facility] LV E/e', average 10 [facility] LV end-diastolic volume, 1-p A4C 73 ml [facility] Anatomical Region Laterality Modality Ultrasound Narrative 10/08/2020 12:16 EDT ?Left Ventricle: Left ventricular systolic function was hyperdynamic with an ejection fraction =>65%. ?Left Ventricle: Left ventricular diastolic parameters were normal. ?Left Ventricle: Global longitudinal strain was normal. ?Right Ventricle: Right ventricular systolic function was normal. Left Ventricle The left ventricular cavity was normal in size. Left ventricular systolic function was hyperdynamic with an ejection fraction =>65%. Left ventricular diastolic parameters were normal. Left ventricular wall thickness was normal. Left ventricular wall motion was normal; there were no regional wall motion abnormalities. Global longitudinal strain was normal. Right Ventricle The right ventricular cavity was normal in size. Right ventricular systolic function was normal. Right ventricular wall thickness was normal. Left Atrium The left atrium was normal in size. Right Atrium The right atrium was normal in size. IVC/SVC The inferior vena cava was normal in size. Mitral Valve Mitral valve structure was normal. There was no significant mitral valve stenosis or regurgitation. Tricuspid Valve Tricuspid valve structure was normal. There was no tricuspid valve regurgitation. There was no tricuspid valve stenosis. Aortic Valve The aortic valve structure was trileaflet. The aortic leaflets were not thickened. There was no aortic valve stenosis. There was no aortic valve regurgitation. Pulmonic Valve There was no pulmonic valve regurgitation. There was no pulmonic valve stenosis. Ascending Aorta The aorta was normal in size. Pericardium There was no pericardial effusion. Pulmonic Artery Unable to assess PA pressure. Study Details Study status: Routine. Transthoracic echocardiography. M-Mode, complete 2D, complete spectral Doppler, and color Doppler.The study was interpreted by [facility]. Pertinent images and digital data are archived for permanent storage and are available for subsequent review. Scanning was performed from the apical, parasternal, subcostal and suprasternal acoustic windows. Overall the study quality was adequate. The study was difficult due to patient body habitus and heart rhythm. Images were obtained using cardiac ultrasound machine EPIQ #[id number]. Queenie Conde MD CARDIAC ECHO ORDERAB LES documented in this encounter Visit Diagnoses Diagnosis Malignant neoplasm of left breast in female, estrogen receptor negative, unspecified site of breast (HCC-CMS) documented in this encounter Care Teams Senior Tax Analyst Relationship Specialty Start Date End Date Batsheva Lira FNP [address] [phone] PCP - General 02/19/20 07/21/22 documented as of this encounter
--- OUTSIDE RECORDS SUMMARY | 2023-12-10 17:44 | XMS_ITS | Encounter Summary ---
Author Organization [facility] Address [address] [place] [address] Care Team Providers Care Hog Killer Name Role Phone Batsheva Lira JOHN Primary Care Provider [phone] Reason for Visit * Reason Onset Date Comments Social Work 07/24/2020 financial Encounter Details Date Type Department Care Team (Late st Contact Info) Description 07/24/2020 Telephone [facility] Cancer Center Hematology & Oncology - [address] [phone] Veronique Dye Social Work (financial ) Social [...] * Telephone Encounter - Veronique Dye - 07/24/2020 1107 EST Pt sent me a copy of her rental agreement for the [employer] application. PN completed and submitted an application to the [employer] and requested the full $1000 towards her rent. Pt shared that she got a bill from [facility] and questioning why medicaid isn't covering it. PN showed the bill to MARIJA Quiros and she responded: The effective date was wrong in our system we will rebill this claim PN updated pt that. Plan- await decision from [employer] [facility] [place] PN mailed pt a couple of visa gift cards to be used towards groceries. documented in this encounter Plan of Treatment Upcoming Encounters Date Type Department Care Team (Late st Contact Info) Description 01/31/2024 13:40 EDT Office Visit [facility] Surgical Oncology - [address] [phone] Maeve Morales, [address] [facility], [facility], [address] [place] [phone] documented as of this encounter Visit Diagnoses Not on filedocumented in this encounter Care Teams Hog Killer Relationship Specialty Start Date End Date Batsheva Lira FNP [address] [phone] PCP - General 02/19/20 07/21/22 documented as of this encounter
--- OUTSIDE RECORDS SUMMARY | 2023-12-10 17:44 | XMS_ITS | Encounter Summary ---
Author Organization [facility] Address [address] [place] [address] Care Team Providers Care Stereo Equipment Repairer Name Role Phone Batsheva Lira JOHN Primary Care Provider [phone] Reason for Visit * Reason Comments Chemotherapy Encounter Details Date Type Department Care Team (Latest Contact Info) Description 09/04/2020 7:46 EDT - 09/04/2020 23:59 EDT Hospital Encounter [facility] Cancer Center Hematology & Oncology - [place] [address] [place], [place] [phone] Malignant neoplasm of upper-inner quadrant of left [...] Sign Reading Time Taken Comments Blood Pressure 137/88 09/04/2020751 EDT Pulse 107 09/04/2020751 EDT Temperature 36.1 ??C (96.9 ??F) 09/04/2020751 EDT Respiratory Rate 16 09/04/2020751 EDT Oxygen Saturation 98% 09/04/2020751 EDT Inhaled Oxygen Concentration - - Weight 87.1 kg (192 lb) 09/04/2020751 EDT Height 167.1 cm (5' 5.79) 09/04/2020751 EDT Body Mass Index 31.19 09/04/2020751 EDT documented in this encounter Functional Status [...] No 07/15/2020 documented as of this encounter Discharge Instructions * Patient Instructions* Yulissa Mills RN - 09/04/2020 8:00 EDT Fatigue patient education: Chemotherapy can make you feel very tired. Other things like anemia (low red blood cell count), being in pain being sad or depressed, or having trouble sleeping can also make you feel tired. Making a plan to feel less tired can be very helpful. Do less and let others help you, do activities that are most important you first. Take time off from your job or work fewer hours. Eat and drink well, make healthy foods when you feel well and freeze them for later. Eat small meals to keep your strength up and keep water with you and take small sips during the day. Be as active as you can, even 15 to 30 minutes of exercise a day can help give you energy. Try walking, yoga and stretching. Biking is great exercise if your platelet count is good. Lastly, take time to rest. Listen to your body it will let you know when it is time to take it easy. Take short naps to help revive you. Follow a bedtime routine, listening to music or taking a bath may help you to relax and may help you get 8 hours of sleep a night. Infection patient education You are at increased risk for infection. Here are some steps you can take to decrease your risk. Wash your hands well ??? Always wash your hands: Before your cook or eat After you use the bathroom After being in a public place. ??? Wash your hands well with soap and water. Have the people around you wash their hands well too. ??? Use hand help desk representative when you can't find soap and water. Stay extra clean. ??? [place] your teeth after meals and before you go to bed. Use a very soft toothbrush. ??? If you have a catheter, keep the area around it clean and dry. Ask your nurse how to take care of this area. Try to stay away from germs ??? Stay away from people who are sick or have a cold. Try to stay away from big crowds. ??? Wash raw fruits and vegetables ??? Wash your hands carefully after you handle raw meat. Cook meat well before eating it. ??? Stay away from people who have just has a chicken pox, polio or measles vaccine ??? Have someone else clean up after your pet. Try not to get cuts ??? Use an electric shaver, not a razor. ??? Clean yourself well and gently after going to the bathroom. Let your nurse know if your rectal area is sore or bleeds. ??? Don???t squeeze pimples. You should call right away Day or Night at [phone] if you have a fever that is 100.5 degrees F (38 degrees Celsius) or higher, chills, shaking or general muscle aches. You should also call if you have a stiff neck, bloody or cloudy urine or burning / stinging when you urinate. Also call if you have a cough or sore throat, a skin rash, sore or white coating on your mouth ortongue, and swelling or tenderness around your catheter. Ask your doctor or nurse if you have any questions or concerns. Nerve changes patient education: Some chemotherapy medications can cause nerve problems. You may develop numbness, tingling, burningor a weak feeling in different parts of your body. Most often it begins in your hands and feet, this is called peripheral neuropathy. Helpful hints for managing nerve problems. ??? Move rugs out of your path so you won???t trip. ??? Place bath mats in the shower and tub to avoid slipping and falling. ??? Put rails up on the chadwick and in the bathroom. ??? Use a cane or walker for assistance getting around ??? Protect your feet by wearing sturdy shoes, inside and outside of your home. ??? Wear gloves when working in the kitchen or outside. ??? Use hot pads in the kitchen to protect your hand from marmolejo. ??? Before you take a bath or have someone check to make sure the water is not too hot. ??? Ask for help with things like buttoning clothes, using a computer, opening jars or using a pen. ??? Slow down and give yourself more time to do things. Let us know about tingling, burning, a change or weak feeling in your hands and or feet. Please letus know about any pain when you walk. Call us as soon as you notice or have any of these changes: ??? Experience a fall. ??? Feeling dizzy or like you are losing your balance. ??? Shaking of trembling. ??? Trouble holding or picking things up. ??? Any changes in your hearing. ??? Hard stools. ??? Stomach pain. documented in this encounter Medications at Time [...] documented in this encounter Progress Notes * Yulissa Mills RN - 09/04/2020 0800 EDT Out-patient Chemotherapy Note Patient presents to clinic today for cycle # 3 , day # 1 of Paclitaxel q 3 wk and Carboplatin (AUC 6) treatment plan. Reviewed lab results with patient CBC: Lab Results Component Value Date WBC 7.75 09/04/2020 HGB 14.1 09/04/2020 HCT 42.1 09/04/2020 PLT 196 09/04/2020 NEUTROABS 4.88 09/04/2020 Chemistry: Lab Results Component Value Date NA 139 09/04/2020 K 4.0 09/04/2020 BUN 12 09/04/2020 CREATININE 0.41 (L) 09/04/2020 CALCIUM 8.8 09/04/2020 MG 1.8 09/04/2020 LFT: Lab Results Component Value Date TBIL <0.5 09/04/2020 ALKPHOS 122 09/04/2020 AST 45 09/04/2020 ALT 85 (H) 09/04/2020 . Parameters for today???s treatment met Patient noted with single IVAD for access. IV flushed, site patent, unremarkable and without redness and brisk blood return noted before and after chemotherapy infusions. Patient received pre-meds (Benadryl po, famotidine, Aloxi, Emend,Dex) , Paclitaxel titrated over 3 hours and Carboplatin (see MAR). Patient used special ice packs to hands and feet during part of Taxol tx. Patient appeared to tolerate tx well. No complaints or s/s of reaction. Patient education: Patient educated on medications administered today. Patient expressed understanding of education provided and no barriers identified Patient' s single IVAD noted to have brisk blood return and device flushed per hospital policy. Access site noted to be patent, unremarkable and without redness. IVAD de-accessed, dressing applied. Patient encouraged to call clinic with any issues. I was supervised by Dr. Pace/ Dr. Huerta who was present and immediately available in the office suite. Yulissa Mills RN documented in this encounter Miscellaneous Notes * Addendum Note - Marie Salazar - 09/04/2020 0800 EDTEncounter addended by: Marie Salazar on: 09/15/2020 10:10 Actions taken: Charge Capture section accepted documented in this encounter Plan of Treatment Upcoming Encounters Date Type Department Care Team (Late st Contact Info) Description 01/31/2024 13:40 EDT Office Visit [facility] Surgical Oncology - [address] [phone] Maeve Morales, [address] [place] [address], [address] [place] [phone] documented as of this encounter Procedures Procedure Name Priority Date/Time Associated Diagnosis Comments COMPREHENSIVE METABOLIC PANEL (ONCOLOGY USE ONLY-INC MG) STAT 09/04/2020 7:49 EDT Malignant 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, estrogen receptor negative (HCC-CMS) COMPLETE BLOOD COUNT AND DIFF, CHEMO STAT 09/04/2020 7:49 EDT Malignant 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, estrogen receptor negative ([facility]) documented in this encounter Results * COMPLETE BLOOD COUNT AND DIFF, CHEMO (09/04/2020 7:49 EDT) WBC 7.75 4.00 - 12.40 K/cmm 09/04/2020 8:30 [facility] RBC 4.96 3.86 - 5.04 M/cmm 09/04/2020 8:30 [facility] Hemoglobin 14.1 11.6 - 15.2 gm/dL 09/04/2020 8:30 [facility] HCT 42.1 34.9 - 44.4 % 09/04/2020 8:30 [facility] MCV 85 81 - 98 fl 09/04/2020 8:30 [facility] MCH 28.4 26.7 - 33.3 pg 09/04/2020 8:30 [facility] MCHC 33.5 32.1 - 35.9 gm/dL 09/04/2020 8:30 [facility] RDW-CV 13.5 <14.7 % 09/04/2020 8:30 [facility] RDW-SD 41.6 <50.4 fl 09/04/2020 8:30 [facility] PLT 196 141 - 377 K/cmm 09/04/2020 8:30 [facility] MPV 9.9 9.5 - 12.7 fl 09/04/2020 8:30 [facility] % Neutrophils 62.9 % 09/04/2020 8:30 [facility] Absolute Neutrophils 4.88 2.20 - 8.85 K/cmm 09/04/2020 8:30 [facility] Type of Differential: Auto 09/04/2020 8:30 [facility] Blood VENOUS BLOOD / Unknown Venipuncture / Unknown 09/04/2020 7:49 EDT 09/04/2020 8:03 EDT Queenie Conde MD PACKAGES & DNA PROBE ORDERABLES [facility] [address] [place] [address] * (ABNORMAL) COMPREHENSIVE METABOLIC PANEL (ONCOLOGY USE ONLY-INC MG) (09/04/2020 7:49 EDT) Sodium 139 136 - 145 mEq/L 09/04/2020 8:23 [facility] Potassium 4.0 3.5 - 5.0 mEq/L 09/04/2020 8:23 [facility] Chloride 104 96 - 110 mEq/L 09/04/2020 8:23 [facility] CO2 Total 23 22 - 32 mEq/L 09/04/2020 8:23 [facility] Glucose 165(H) 70 - 100 mg/dL 09/04/2020 8:23 [facility] BUN 12 10 - 26 mg/dL 09/04/2020 8:23 [facility] Creatinine 0.41(L) 0.52 - 1.04 mg/dL 09/04/2020 8:23 [facility] eGFR 126 >60 mL/min/1.7 3m2 09/04/2020 8:23 [facility] Comment:eGFR calculated mata asif CKD-EPI equation for non- Americans. Multiply eGFR by 1.16 for patients. Total Protein 7.2 6.3 - 8.2 g/dL 09/04/2020 8:23 [facility] Albumin 4.2 3.4 - 4.9 g/dL 09/04/2020 8:23 [facility] Alkaline Phosphatase 122 38 - 126 U/L 09/04/2020 8:23 [facility] AST 45 15 - 46 U/L 09/04/2020 8:23 [facility] ALT 85(H) <35 U/L 09/04/2020 8:23 [facility] Bilirubin, Total <0.5 <1.4 mg/dL 09/05/19 8:23 EDT [facility] Calcium 8.8 8.5 - 10.5 mg/dL 09/04/2020 8:23 EDT [facility] Calculated Calcium 8.6 8.5 - 10.5 mg/dL 09/04/2020 8:23 EDT [facility] Magnesium 1.8 1.7 - 2.8 mg/dL 09/04/2020 8:23 EDT [facility] Blood VENOUS BLOOD / Unknown Venipuncture / Unknown 09/04/2020 7:49 EDT 09/04/2020 8:03 EDT Queenie Conde MD CHEMISTRY & BLOOD GA S ORDERABLES [facility] [address] [place] [address] documented in this encounter Visit Diagnoses Diagnosis [...] 6), intravenous, NOW X1, 1 dose, On Klaudia 09/04/20 at 1245, Administer over 30 Minutes New Bag 09/04/2020 13:15 EDT 900 mg dexAMETHasone (DECADRON) 12 mg in sodium chloride (NS) 0.9 % 50 mL IVPB 12 mg, intravenous, Administer over 30 Minutes, NOW X1, 1 dose, On Klaudia 09/04/20 at 0900, Routine New Bag 09/04/2020 9:05 EDT 12 mg diphenhydrAMINE (BENADRYL) capsule 50 mg 50 mg, oral, NOW X1, 1 dose, On Klaudia 09/04/20 at 0900, Routine Given 09/04/2020 8:51 EDT 50 mg famotidine (PEPCID) injection 20 mg 20 mg, intravenous, NOW X1, 1 dose, On Klaudia 4/22/21 at 0900, Routine Given 09/04/2020 9:03 EDT 20 mg fosaprepitant (EMEND) 150 mg in sodium chloride (NS) 0.9 % 150 mL infusion 150 mg, intravenous, Administer over 30 Minutes, NOW X1, 1 dose, On Klaudia 09/04/20 at 0900, Routine New Bag 09/04/2020 9:30 EDT 150 mg PACLitaxel (TAXOL) 347 mg in sodium chloride (NS) 0.9 % 500 mL chemo infusion 347 mg (rounded from 346.5 mg = 175 mg/m2 ? 1.98 m2 Treatment Plan BSA from Recorded weight), intravenous, NOW X1, 1 dose, On Klaudia 09/04/20 at 0945, Administer over 3 Hours New Bag 09/04/2020 10:15 EDT 347 mg palonosetron (ALOXI) injection 0.25 mg 0.25 mg, intravenous, NOW X1, 1 dose, On Klaudia 09/04/20 at 0900, Routine Given 09/04/2020 8:56 EDT 0.25 mg sodium chloride 0.9 % (NS) infusion at 100 mL/hr, 250 mL, intravenous, CONTINUOUS, Starting on Klaudia 09/04/20 at 0900, Until Tue09/05/20 at 0854, Routine New Bag 09/04/2020 8:55 EDT 250 mL 75 mL/hr documented in this encounter Orders Medications Ordered That Juanito ht Not Have Been Administered Count Last Ordered Date First Ordered Date sodium chloride 0.9 % (flush) flush 20 mL 1 09/04/2020 Appointment Requests Count Last Ordered Date Fi rst Ordered Date ONCBCN INFUSION APPOINTMENT REQUEST 1 09/04 documented in this encounter Care Teams Stereo Equipment Repairer Relationship Specialty Start Date End Date Batsheva Lira FNP [address] [phone] PCP - General 02/19/20 07/21/22 documented as of this encounter
--- OUTSIDE RECORDS SUMMARY | 2023-12-10 17:44 | XMS_ITS | Encounter Summary ---
Author Organization [facility] Address [address] [place] [address] Care Team Providers Care Quality Control Head Name Role Phone Batsheva Lira JOHN Primary Care Provider [phone] Reason for Referral * Radiology Services (Routine) - Closed Specialty Diagnoses / Procedures Referred By Contac t Referred To Contact Diagnoses Malignant neoplasm of left breast in female, estrogen receptor negative, unspecified site of breast ([facility]) Procedures IR CHEST PORT 5 YRS [place] [id number] [id number] Referral ID Status Reason Start Date Expiration Date Visits Re quested Visits Authorized [id number] Closed 07/15/2020 1 1 Reason for Visit * Radiology Services (Routine) - Closed Specialty Diagnoses / Procedures Referred By Contac t Referred To Contact Diagnoses Malignant neoplasm of left breast in female, estrogen receptor negative, unspecified site of breast ([facility]) Procedures IR CHEST PORT 5 [place]RS [place] [address] [place] [id number] Referral ID Status Reason Start Date Expiration Date Visits Re quested Visits Authorized [id number] Closed 07/15/2020 1 1 Encounter Details Date Type Department Care Team (Late st Contact Info) Description 08/08/2020 8:28 EDT - 08/08/2020 11:47 EDT Hospital Encounter [facility] Interventional Radiology Unit [address] [place] [address] [place] [address] [place] [address] Antony Lord MD [address] [facility] [address] [place], [address] [place] [address] Malignant neoplasm of left breast in female, estrogen receptor negative, unspecified site of breast (HCC-CMS); Fitting and adjustment of vascular catheter Discharge Disposition: Home or Self Care Social [...] Sign Reading Time Taken Comments Blood Pressure 115/71 08/08/2020 1115 EDT Pulse - - Temperature 36.4 ??C (97.5 ??F) 08/08/2020 1115 EDT Respiratory Rate 16 08/08/2020 1115 EDT Oxygen Saturation 95% 08/08/2020 1115 EDT Inhaled Oxygen Concentration - - Weight 81.6 kg (180 lb) 08/08/2020 0839 EDT Height - - Body Mass Index 29.24 07/22/2020 0759 EST documented in this encounter [...] this encounter Discharge Instructions * Discharge Instructions* Estrella Westbrook RN - 08/08/2020 10:40 EDT RADIOLOGY PATIENT EDUCATION INSTRUCTIONS FOLLOWING YOUR CHEST PORT PLACEMENT Procedure Site - Chest, Right Provider - Antony Lord MD Date: 08/08/2020 A port consists of a metal or plastic disc that is implanted under your skin. It is connected to a tube, which is in a vein close to your heart. The type of port placed depends on your infusion needsand the wishes of you and your doctor. You have received a Chest port/Mediport, which provides access for infusions and blood draws. Youwill be provided with an ID card stating the dispensary attendant and type of port you have. PLEASE KEEP THIS CARD WITH YOU. Today: ??? DO NOT drive or make legal decisions today. ??? DO NOT lie flat for a minimum of 4 hours from the end time of your procedure to reduce your risk of bleeding. ??? You may resume your normal diet after the procedure. Avoid alcoholic beverages for 24 hours to reduce your risk of bleeding. ??? You may take Tylenol (acetaminophen) for any discomfort you have. Blood thinning medicine: Do not take full strength Asprin (325 mg) or any NSAID medications for 24 hours (ibuprofen/Advil or Motrin, Aleve/naproxen) after your procedure. Activity Guidelines: ??? Rest today. You may resume normal activities tomorrow, but do not lift anything heavier than 15pounds for one week (a gallon of milk is 8 pounds). ??? Do not play contact sports while you have a port. ??? If you have a large chest, we encourage you to wear a supportive bra for 48 hours continuously to limit pulling of the wound site. General Port Care: Your port was not accessed with a needle during placement in Radiology. You must not shower if you are discharged home with your port accessed. Your port must be flushed with saline, even if it???s not being used. This is arranged by the provider who requested the port (usually once a month for regular or once every 3 months for power ports). Was your port accessed? No Showering and wound care: ??? Leave your dressing(s) intact for 24 hours. ??? Do not take a shower for 24 hours after your port is placed. ??? For one week: shower with a dressing in place while facing away from the shower stream (you should be discharged with dressing supplies or you may use saran wrap and tape). ??? After your shower, peel the dressing off. Gently pat your skin dry if it is damp. ??? Soap and water should not come in contact with your chest wound for 7 days, but the neck wound may get wet with soap and water after 24 hours. ??? For one week: replace the bandage daily with the dressing supplies given to you (the neck woundmay be covered with a bandaid or left open to air). Place a gauze over the entire wound, including the paper strips and glue if they are used, prior to placing the sticky portion of the dressing. ??? No tub bathing, hot tubs, or swimming for 10 days after the port is placed ??? Always avoid topical medication. Do not apply liquid or ointment medications, lotions, creams, oils or any other product to your wound. EMLA: (a numbing cream may be applied to your port site after it is healed. Your oncology provider will order this medication for you at your request). ??? Protect the wound from prolonged sunlight exposure. Do not use a tanning lamp. ??? If your provider used steri-strips (thin tape strips), please leave them intact for 14 days. Ifthey are still intact after 2 weeks, you may remove them by gently peeling them away after wetting them. Things to Report (our phone number is below. Someone can take your call 24 hours/day including weekends and holidays): ?? If your dressing becomes saturated with blood: hold pressure on your wound site for 10 minutes. If the bleeding does not stop, call our department. A small spot of blood is common. ?? Signs or symptoms of infection: redness, swelling, drainage, fever greater than 100 degrees Fahrenheit or 38 degrees Celsius, pain at the port site that is not relieved by Tylenol. ?? A growing/firm bruise. A small/soft bruise is common. ?? Swelling, pain, or redness of the arm or neck on the side the port was placed ?? Shortness of breath or abnormal heart beats ?? Any other concerns you may have regarding your port Port Removal: When your doctor determines that you no longer need your port they will refer you to the Interventional Radiology department to have your port removed. Usually the ports are removed using a local anesthetic (numbing medicine). IF YOU HAVE ANY QUESTIONS OR CONCERNS REGARDING THE PROCEDURE, PLEASE CALL THE INTERVENTIONAL RADIOLOGY CLINIC AT . SOMEONE IS AVAILABLE TO TAKE YOUR CALL 24 HOURS A DAY. documented in this encounter Medications at Time of Discharge Medication Sig Dispensed Refills Start Date End Date amLODIPine (NORVASC) 2.5 mg tablet Take 2.5 mg by mouth daily. 01/11/2022 escitalopram oxalate (LEXAPRO) 10 mg tablet Take 30 mg by mouth daily. 12/03/2022 INTRAUTERINE DEVICE, IUD, INTRAUTERINE by intrauterine route. 01/11/2022 MELOXICAM ORAL Take by mouth as needed. 08/13/2020 ondansetron (ZOFRAN-ODT) 8 mg disintegrating tablet Take 1 Tab by mouth every 8 hours as needed for Nausea. 60 Tab 2 07/16/2020 12/25/2020 oxybutynin (DITROPAN) 5 mg tablet Take 5 mg by mouth daily. 11/27/2020 prochlorperazine (COMPAZINE) 10 mg tablet Take 1 Tab by mouth every 6 hours as needed for Nausea. 30 Tab 5 07/22/2020 12/25/2020 triamcinolone acetonide (KENALOG) 0.1 % pasteIndications:Maligna nt 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, estrogen receptor negative (HCC-CMS) Apply to affected area up to three times daily as needed for pain. 1 Tube 11/07/2020 03/26/2021 UNKNOWN TO PATIENT documented as of this encounter Discharge Disposition Disposition Code Departure Means Destination Home or Self Care Wheelchair Home documented in this encounter Progress Notes * Amita Sotelo RN - 08/08/2020 1102 EDT 1037 Patient received into CVU and given plan of care. 1104 Tolerating food and drink. 1108 Engineer Sergeant for patient updated on plan of care. 1133 Patient has ambulated to bathroom and back. Given discharge instructions and verbalizes understanding. Also given dressing supplies and ID card for port. Given more to drink and some crackers. 1136 Patient discharged to home.Patient left CVU luis m wheelchair pushed by transportation officer Zhen. * Estrella Westbrook RN - 08/08/2020 0922 EDT Pt brought to angio 23 at 0930 after correctly identifying. Pt in agreement with plan for chest port placement with moderate sedation. Pt's allergies, med list, labs, NPO status, H&P assessed. Ptverbalizes understanding of procedure - all questions answered. Pt positioned herself supine on procedure table. Safety strap is in place, and pt reports she's comfortable. Pt's extremities on pads, heels elevated off of procedure table. Pt prepped with chloraprep by maciej according to manufacturing standard/recommendations. 0950 - Time out and procedure started. (mikael hubbard tjp, twp) 1023 - Procedure ended. Chest port placement - right (port = single lumen/non- power; no access requested). See provider note for procedure outcome. Internal sutures, steristrips, gauze/tegaderm by provider. No dermabond used. Pt tolerated procedure very well with Versed 3.5 mg IV and Fentanyl 125 mcg IV over 40 minutes. SR 80's Report called to yuliana gonzáles in cvu. Pt transferred to cvu in stable condition. At d/c from room patient hob elevated/dsg cdi. Pt is awake on ra. * Estrella Westbrook RN - 08/08/2020 0900 EDT Pre procedure phone call was made to patient regarding his/her upcoming appointment on 08/08 0900 chest port Patient unable to be reached. This RN has left a message for them to call IR air defense control officer ([phone]) forpre-procedure instructions [phone]. If patient should call back, the following information should be given and charted: Viral screen for patient and their single vacuum truck driver/visitor: ??? Do you have a fever, cough/difficulty breathing? -patient's response = maximino Do you have any loss of smell or taste? Patient's response = maximino ??? Have you traveled out of state in the past 14 days? - patient's response = maximino ??? Have you had any exposure to anyone with Covid-19 or suspected of having Covid-19 in the past 14 days? Patient's reponse = maximino ??? Have you been in close contact with anyone outside of your immediate family? maximino ??? Friends or family members who wish to accompany you must screen negative to enter the facility -patient's response = maximino Covid-19 testing: No longer required as of 07/04 (unless patient is having anesthesia) Outpatients: ? ? Only one visitor > 16 yo allowed with patient. Visitor must screen negative to above viral screening. For All: ??? Entrances into all [facility] buildings and clinics will be restricted and everyone whoenters will be asked the purpose of their visit to the medical center. ??? Only ADA service animals are permitted. All others animals, including previously approved therapy dogs/ support animals, are not allowed at this time. Plan: -Go to registration on 3rd floor at 0845 (still need to go here even if pre- registered on phone) -NPO guidelines a. No solid foods or liquids containing fats, including milk, after midnight before the procedure. b. Patient may have fat-free/protein free clears from 0000 until 0700. (3 hours before scheduled starting time of the procedure). c. Take medications as directed with small sip of water at any time prior to procedure Acceptable Liquids Unacceptable (DO NOT Drink -Water -[place] juice (orange or pineapple) -Clear Fruit Juices Apple Juice Grape Juice Cranberry Juice -Clear broth -Gelatin (Jell-O)* -Apple Sauce -Gatorade -Clear carbonated beverages -black coffee/black tea - sweetener ok -Medications - Pt should take prescribed medications. Pt should take PRN pain, anxiety, nausea medsas needed. -Meds to hold: mobic x 10 days (if hasn't stopped check with transportation sales consultant provider) Pt should not take ibuprofen (Motrin, Advil) for 24 hours prior to the procedure, naproxen (Aleve) for 2 days before, or full strength aspirin or medicine with aspirin in it for 5 days before the procedure. If pt is on baby asa, this is ok to continue. Tylenol (acetaminophen) may be taken for pain. -Due to sedation patient must have a vacuum truck driver (bus or taxi is not allowed) - Bring a list of current medications/allergy list -Bring CPAP if applicable -Shower night before or morning of procedure -Leave all valuables/medications at home (pt's with hearing aids should bring them) IR air defense control officer number given ([phone]) to call w/ any questions (preferably M-F 0830-4 pm) Barriers: maximino * Estrella Westborok RN - 08/08/2020 0900 EDT Pre procedure phone call completed with patient. Instructions are listed in my note file on 08/03. covid screen negative. Pt reports she hasn't had mobic in several months. No barriers. documented in this encounter H&P Notes * Antony Lord MD - 08/08/2020 0944 EDT The preoperative history and physical which was performed within 30 days of this procedure has been reviewed and the clinically appropriate elements of the physical examination have been repeated. There are no changes to the documented history and physical or if so such changes are documented below Antony Lord MD 08/08/2020 9:44 Source Note - Queenie Conde MD - 07/22/2020 9:00 EST REASON FOR OFFICE VISIT Austin is a 44-year-old female here to initiate neoadjuvant chemotherapy for her breast cancer. ?? HISTORY OF PRESENT ILLNESS: Austin's photographers' model noticed a mass in 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 Staging evaluation did reveal a prominent L IM lymphnode but otherwise negative. 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 ?? SUBJECTIVE: Austin is doing well and ready to start chemotherapy. She has no new constitutional, cardiovascular,pulmonary, GI, ,SHERIFF'S DETECTIVE, musculoskeletal, psychiatric, neurologic, endocrine, or heme symptoms. [...] his 90s. ??Her paternal relatives are of [place] descent. ?? Objective: BP (!) 142/85 Pulse [...] Queenie Conde MD documented in this encounter Procedure Notes * Antony Lord MD - 08/08/2020 1037 EDT Central Catheter Insertion First Catheter This Session food prep worker: Patient Location: IR/[facility] IR POOL BED Preliminary Data: Insertion Date: 08/08/20 Insertion Time: 1003 First Counter Intelligence: luli RN/MA Documenting Procedure: leckey Pre-procedure: Time Out / Final Moment Performed: Yes Hand Hygiene Immediately Prior To Procedure: Yes Procedure Site Completely Dry: Yes Entire Patient Draped in Sterile Fashion: Yes Intra-procedure: Sterile Gloves Used: Yes Cap, Mask, and Sterile Gown - Operators: Yes Sterile Field Maintained: Yes Cap and Mask Worn - All Personnel: Yes Post-procedure: Sterile Dressing Applied - Sterile Technique: Yes Dressing Dated And Timed: Yes Needle Passes: Physician Documentation Pre-Procedure: Procedure To Be Performed: New central line placement Indication: New indication Line Priority: Routine Consent Obtained: Yes The patient and/or family have been provided education/training to minimize the risk of central line-associated bloodstream infections. Central Line Type: Central Catheter Type: Implanted Port Implanted Port: Groshong implanted port Central Line Details: Line Location: Right;Internal Jugular Final Tip Location: Right;Atrium Line Lumens (#): Single Central Line Size: 8 Fr Line Securement Device: Sutured Responsible Service / IR Details: Responsible Service: IR Lidocaine 1% - Route/Dose (cc's): Subcutaneous;Other (Comment)(20) Fluoroscopy Time (min): 1 Patient Condition At Completion Of Case: Stable Central Line Materials and Methods: Number of Attempts: 1 Number of Sites Attempted: 1 Number of Kits Used: 1 Location Device Used: Angiography;Ultrasound Central Line Operators: Number Of Operators: 1 First Counter Intelligence's Name: Nallely Lord First Counter Intelligence's Title: Attending Unless otherwise noted, there were no complications, no blood loss and no cultures obtained. Antony Lord MD 08/08/2020 10:37 documented in this encounter Plan of Treatment Upcoming Encounters Date Type Department Care Team (Late st Contact Info) Description 01/31/2024 13:40 EDT Office Visit [facility] Surgical Oncology - [facility] [address] [place] [address] Maeve Morales, [address] [facility], [address] [place] [address] documented as of this encounter Procedures Procedure Name Priority Date/Time Associated Diagnosis Comments IR CHEST PORT 5 YRS OR OLDER Routine 08/08/2020 10:36 EDT Malignant neoplasm of left breast in female, estrogen receptor negative, unspecified site of breast (HCC-CMS) documented in this encounter Results * IR CHEST PORT 5 YRS OR OLDER (08/08/2020 10:36 EDT) Anatomical Region Laterality Modality Chest N/A X-Ray Angiograph y 08/08/2020 14:5 9 EDT Impressions 08/08/2020 14:59 EDT Successful, uncomplicated placement of a chest port via the right IJ using sonographic and fluoroscopic guidance. Narrative 08/08/2020 14:59 EDT Technique and Findings: Written consent was obtained. The patient was prepped and draped in sterile fashion. 1% lidocaine was used for local analgesia at the venous access point and across the right upper chest. Conscious sedation was administered with monitoring of the patient's heart rate, respiratory rate, blood pressure, and oxygen saturation. The right internal jugular vein was accessed using a micropuncture needle and sonographic guidance. An 0.018 guidewire was advanced into the vein under fluoroscopic guidance and positioned in the superior vena cava and upper right atrium and a micropuncture catheter subsequently placed. An incision was made in the right chest and a subcutaneous pocket bluntly dissected. A trocar was used to tunnel the catheter from the right chest to the right IJ puncture site. The neck access micropuncture catheter was then exchanged for a dilator and peel-away sheath over a guidewire using fluoroscopic guidance. ??The chest port catheter was then advanced through the peel-away sheath and the tip positioned in the upper right atrium. The catheter was trimmed to length and connected to the chest port. ??The port was positioned in the pocket and the incision closed with numerous interrupted sutures using absorbable monofilament. The chest port was flushed and a sterile bandage was applied at both the chest and neck base. The patient tolerated procedure well without complication. Frontal film of the chest post procedure shows no pneumothorax. The right internal jugular vein was identified as patent and all ultrasound images were recorded in the patient's permanent medical record. Procedure Note LordAntony copeland MD - 08/08/2020 Technique and Findings: Written consent was obtained. The patient was prepped and draped insterile fashion. 1% lidocaine was used for local analgesia at the venousaccess point and across the right upper chest. Conscious sedation wasadministered with monitoring of the patient's heart rate, respiratoryrate, blood pressure, and oxygen saturation. The right internal jugular vein was accessed using a micropuncture needleand sonographic guidance. An 0.018 guidewire was advanced into the veinunder fluoroscopic guidance and positioned in the superior vena cava andupper right atrium and a micropuncture catheter subsequently placed. Anincision was made in the right chest and a subcutaneous pocket bluntlydissected. A trocar was used to tunnel the catheter from the right chestto the right IJ puncture site. The neck access micropuncture catheter wasthen exchanged for a dilator and peel-away sheath over a guidewire usingfluoroscopic guidance. The chest port catheter was then advanced throughthe peel-away sheath and the tip positioned in the upper right atrium. Thecatheter was trimmed to length and connected to the chest port. The portwas positioned in the pocket and the incision closed with numerousinterrupted sutures using absorbable monofilament. The chest port wasflushed and a sterile bandage was applied at both the chest and neck base. The patient tolerated procedure well withoutcomplication. Frontal film of the chest post procedure shows nopneumothorax. The right internal jugular vein was identified as patent andall ultrasound images were recorded in the patient's permanent medicalrecord. IMPRESSION Successful, uncomplicated placement of a chest port via the right IJ usingsonographic and fluoroscopic guidance. Queenie Conde MD IMG IR ORDERABLES documented in this encounter Visit Diagnoses Diagnosis Malignant neoplasm of left breast in female, estrogen receptor negative, unspecified site of breast (HCC-CMS) Fitting and adjustment of vascular catheter documented in this encounter Administered Medications Inactive Administered Medications - up to 3 most recent administrations Medication Order MAR Action Action Date Dose Rate Site chlorhexidine gluconate 2 % cloth 1 Each 1 Each, topical, DAILY, First dose on Tue08/08/20 at 0900, Until Discontinued, Routine, Preprocedure Given 08/08/2020 9:09 EDT 1 Each fentaNYL citrate (PF) injection 25-250 mcg 25-250 mcg, intravenous, ONCE PRN, 1 dose, Starting on Tue08/08/20 at 0940, Until Tue08/08/20 at 1019, Other, Radiology Procedure, Routine, Preprocedure Given 08/08/2020 10:19 EDT 125 mcg flumazenil (ROMAZICON) injection 0.2 mg 0.2 mg, intravenous, ONCE PRN, 1 dose, Starting on Tue08/08/20 at 0940, Until Tue08/08/20 at 1348, benzodiazepine reversal, Routine, Preprocedure lidocaine (PF) 10 mg/mL (1 %) injection 2 mg 2 mg, intradermal, PRN, 4 doses, Starting on Tue08/08/20 at 0839, Until Tue08/08/20 at 1348, peripheral intravenous catheter placement, Routine, Preprocedure midazolam (MDV) (VERSED) injection 0.5-10 mg 0.5-10 mg, intravenous, ONCE PRN, 1 dose, Starting on Tue08/08/20 at 0940, Until Tue08/08/20 at 1019, Sedation, Routine, Preprocedure Given 08/08/2020 10:19 EDT 3.5 mg naloxone (NARCAN) injection 0.4 mg 0.4 mg, intravenous, ONCE PRN, 1 dose, Starting on Tue08/08/20 at 0940, Until Tue08/08/20 at 1348, Opioid Reversal, Routine, Preprocedure povidone-iodine solution 5% (Skin and Nasal Antiseptic) 1 Kit 1 Kit, nasal, Once (Without Time Specified), 1 dose, Starting on Tue08/08/20 at 0839, Until Tue08/08/20 at 0910, Routine, Preprocedure Given 08/08/2020 9:10 EDT 1 Kit sodium chloride 0.9 % (NS) infusion 50 mL/hr, intravenous, CONTINUOUS, Starting on Tue08/08/20 at 0900, Until Tue08/08/20 at 1348, Routine, Preprocedure Rate Documented 08/08/2020 10:37 EDT 50 mL/hr 50 mL/hr New Bag 08/08/2020 9:10 EDT 50 mL/hr 50 mL/hr documented in this encounter Discontinued Medications Medication Sig Discontinue Reason Start Date End Da te ethinyl estradiol-etonogestre l (NUVARING) 0.12-0.015 mg/[address] 1 Each vaginally every 28 days. Wear continuously for 3 weeks; remove for 1 week; repeat with new ring, as directed. Alternate therapy 08/08/2020 methocarbamoL (ROBAXIN) 750 mg tablet Take 1 Tab by mouth 4 times daily. Therapy completed 06/19/2020 08/08/2020 documented as of this encounter Historical Medications * This list may reflect changes made after this encounter. Medication Sig Dispensed Refills Start Date End Date amLODIPine (NORVASC) 2.5 mg tablet Take 2.5 mg by mouth daily. 01/11/2022 UNKNOWN TO PATIENT added in this encounter Active and Recently Administered Medications Times are shown in EDT. Scheduled Medication Order 08/06/2020 08/07/2020 08/08/2020 chlorhexidine gluconate 2 % cloth 1 Each 1 Each, topical, DAILY, First dose on Tue08/08/20 at 0900, Until Discontinued, Routine, Preprocedure 09 (Given - Provid er: Khalif Broderick RN) povidone-iodine solution 5% (Skin and Nasal Antiseptic) 1 Kit (COMPLETED) 1 Kit, nasal, Once (Without Time Specified), 1 dose, Starting on Tue08/08/20 at 0839, Until Tue08/08/20 at 0910, Routine, Preprocedure 0910 (Given - Provid er: Khalif Broderick RN) Continuous Medication Order 08/06/2020 08/07/2020 08/08/2020 sodium chloride 0.9 % (NS) infusion 50 mL/hr, intravenous, CONTINUOUS, Starting on Tue08/08/20 at 0900, Until Tue08/08/20 at 1348, Routine, Preprocedure 0910 (New Bag - Prov ider: Khalif Broderick RN)1037 (Rate Documented - Provider: Amita Sotelo RN) PRN Medication Order 08/06/2020 08/07/2020 08/08/2020 fentaNYL citrate (PF) injection 25-250 mcg (COMPLETED) 25-250 mcg, intravenous, ONCE PRN, 1 dose, Starting on Tue08/08/20 at 0940, Until Tue08/08/20 at 1019, Other, Radiology Procedure, Routine, Preprocedure 1019 (Given - Provid er: Estrella Westbrook RN) flumazenil (ROMAZICON) injection 0.2 mg 0.2 mg, intravenous, ONCE PRN, 1 dose, Starting on Tue08/08/20 at 0940, Until Tue08/08/20 at 1348, benzodiazepine reversal, Routine, Preprocedure lidocaine (PF) 10 mg/mL (1 %) injection 2 mg 2 mg, intradermal, PRN, 4 doses, Starting on Tue08/08/20 at 0839, Until Tue08/08/20 at 1348, peripheral intravenous catheter placement, Routine, Preprocedure midazolam (MDV) (VERSED) injection 0.5-10 mg (COMPLETED) 0.5-10 mg, intravenous, ONCE PRN, 1 dose, Starting on Tue08/08/20 at 0940, Until Tue08/08/20 at 1019, Sedation, Routine, Preprocedure 1019 (Given - Provid er: Estrella Westbrook RN) naloxone (NARCAN) injection 0.4 mg 0.4 mg, intravenous, ONCE PRN, 1 dose, Starting on Tue08/08/20 at 0940, Until Tue08/08/20 at 1348, Opioid Reversal, Routine, Preprocedure documented in this encounter Orders Medications Ordered That Juanito ht Not Have Been Administered Count Last Ordered Date First Ordered Date flumazenil (ROMAZICON) injection 0.2 mg 1 0 08/08/2020 lidocaine (PF) 10 mg/mL (1 % ) injection 2 mg 1 08/08/2020 naloxone (NARCAN) injection 0.4 mg 1 2020 Nursing Count Last Ordered Date First Orde red Date INSERT PERIPHERAL IV 1 08/08/2020 NURSING COMMUNICATION 2 08/08/2020 VITAL SIGNS 1 08/08/2020 documented in this encounter Care Teams Quality Control Head Relationship Specialty Start Date End Date Batsheva Lira FNP [address] [phone] PCP - General 02/19/20 07/21/22 documented as of this encounter
--- OUTSIDE RECORDS SUMMARY | 2023-12-10 17:44 | XMS_ITS | Encounter Summary ---
Author Organization [facility] Address [address] [place] [address] Care Team Providers Care Bundle Cutter Name Role Phone Batsheva Lira JOHN Primary Care Provider [phone] Encounter Details Date Type Department Care Team (Late st Contact Info) Description 07/22/2020 Documentation Visit [facility] Cancer Center Hematology & Oncology - [address] [address] Edinson Lorenzana LICSW Social History Tobacco Use [...] this encounter Progress Notes * Edinson Lorenzana MSW - 07/22/2020 0938 EST SW Introduction Visit D1C1 Introduction I checked in pj/ Austin today as she started tx and introduced myself. Pt has already connected with ON Hardik. ON is helping the pt apply for Angel Ng, [facility] and [facility]. Pt is on Medicaid until Jun, she explained. 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 Her son is going to be taking on this role while she's in tx. She will be handling the financial records. Her 9 year old daughter lives with her. Despite recently moving here, she feels supported by her community. We discussed SSDI/SSI and I provided education on both along with the process for both. Pt may wantto apply if she has symptoms that make her feel like she cannot work at all. As of right now, she'sgoing to hold off and will see how she responds to tx. Pt did share that she has some financial support and she also just applied for unemployment. She has friends and family driving her to her appointments. I provided her w/ a $25 gas card from the [employer] given the financial hardship. I provided education on our psychosocial team. Pt has already been in touch w/ CLS and they appliedher for the two [employer] grants. Pt is receiving [employer] but she has not applied for [employer]. I gave her an application today andasked her to let me know if she needs support. Goals Reach Up Plan Pt agreed to let me know if she needs my support. Edinson ALVARES [facility] request form was completed. Funds used: $25 Remaining: $225 documented in this encounter Plan of Treatment Upcoming Encounters Date Type Department Care Team (Late st Contact Info) Description 01/31/2024 13:40 EDT Office Visit [facility] Surgical Oncology - [facility] [address] [place] [address] Maeve Morales, DO [address] [facility], [address] [place] [phone] documented as of this encounter Visit Diagnoses Not on filedocumented in this encounter Care Teams Bundle Cutter Relationship Specialty Start Date End Date Batsheva Lira FNP [address] [phone] PCP - General 02/19/20 07/21/22 documented as of this encounter
--- OUTSIDE RECORDS SUMMARY | 2023-12-10 17:44 | XMS_ITS | Encounter Summary ---
Author Organization [facility] Address [address] [place] [address] Care Team Providers Care Manager Personal Name Role Phone Batsheva Lira JOHN Primary Care Provider [phone] Encounter Details Date Type Department Care Team (Latest Contact Info) Description 09/23/2020 Travel Social History Tobacco Use Types Packs/Day [...] 01/31/2024 13:40 EDT Office Visit [facility] Surgical Oncology - [address] [id number] Maeve Morales, DO [address] [facility], [address] [place] [phone] documented as of this encounter Visit Diagnoses Not on filedocumented in this encounter Care Teams Manager Personal Relationship Specialty Start Date End Date Batsheva Lira FNP [address] [phone] PCP - General 02/19/20 07/21/22 documented as of this encounter
--- OUTSIDE RECORDS SUMMARY | 2023-12-10 17:44 | XMS_ITS | Encounter Summary ---
Author Organization [facility] Address [address] [place] [address] Care Team Providers Care Soccer Referee Name Role Phone Batsheva Lira JOHN Primary Care Provider Reason for Visit * Reason Onset Date Comments Social Work 08/29/2020 financial Encounter Details Date Type Department Care Team (Late st Contact Info) Description 08/29/[address] [facility] Cancer Center Hematology & Oncology - [address] [phone] Veronique Dye Social Work (financial ) Social [...] * Telephone Encounter - Veronique Dye - 08/29/2020 1137 EDT PN connected with pt today and I assisted her with applying for the [employer]. Application completed and just waiting to connect with pt on 09/04 to have her sign the signature page to submit. Plan- finish application on 09/04 documented in this encounter Plan of Treatment Upcoming Encounters Date Type Department Care Team (Late st Contact Info) Description 01/31/2024 13:40 EDT Office Visit [facility] Surgical Oncology - [address] [address] Maeve Morales, DO [address] [facility], [address] [place] [phone] documented as of this encounter Visit Diagnoses Not on filedocumented in this encounter Care Teams Soccer Referee Relationship Specialty Start Date End Date Batsheva Lira FNP [address] [phone] PCP - General 02/19/20 07/21/22 documented as of this encounter
--- OUTSIDE RECORDS SUMMARY | 2023-12-10 17:44 | XMS_ITS | Encounter Summary ---
Author Organization [facility] Address [address] [place] [address] Care Team Providers Care Client Service Associate Name Role Phone Batsheva Lira JOHN Primary Care Provider Encounter Details Date Type Department Care Team (Late st Contact Info) Description 09/02/2020 Orders Only [facility] Cancer Center Hematology [facility] - [facility] [address] [place] [address] [place] [address] [place] [phone] Social History Tobacco Use Types Packs/Day [...] Description 01/31/2024 13:40 EDT Office Visit [facility] Surgical Oncology - [address] [phone] Maeve Morales, DO [address] [place] [address], [address] [place] [phone] documented as of this encounter Visit Diagnoses Not on filedocumented in this encounter Care Teams Client Service Associate Relationship Specialty Start Date End Date Batsheva Lira FNP [address] [phone] PCP - General 02/19/20 07/21/22 documented as of this encounter
--- OUTSIDE RECORDS SUMMARY | 2023-12-10 17:44 | XMS_ITS | Encounter Summary ---
Author Organization [facility] Address [address] [place] [address] Care Team Providers Care Tunnel Elastic Operator Lockstitch Name Role Phone Batsheva Lira JOHN Primary Care Provider [phone] Reason for Visit * Reason Comments New Patient Visit discuss oncoplastic breast reduction, left breast cancer * Consult (Routine) - Order Cancelled Specialty Diagnoses / Procedures Referred By Jen gonzáles Referred To Contact Plastic Surgery Diagnoses Malignant neoplasm of left breast in female, estrogen receptor negative, unspecified site of breast ([facility]) Maeve Morales, DO 111 [facility] [address] [place] [address] [facility] [address] [place] [id number] Referral ID Status Reason Start Date Expiration Date Visits Requested Visits Authorized [id number] Order Cancelled Specialty Services Required 07/15/2020 1 1 Encounter Details Date Type Department Care Team (Late st Contact Info) Description 09/17/2020 10:45 EDT Office Visit [facility] Plastic, Reconstructive & Cosmetic Surgery - [address], [address] [place] [address] Juanito Carcamo MD [address] [phone] Malignant neoplasm of upper-inner quadrant of [...] Pressure - - Pulse - - Temperature 36 ??C (96.8 ??F) 09/17/2020 1047 EDT Respiratory Rate - - Oxygen Saturation - - Inhaled Oxygen Concentration - - Weight 87.1 kg (192 lb) 09/17/2020 1047 EDT Height 167.1 cm (5' 5.79) 09/17/2020 1047 EDT Body Mass Index 31.19 09/17/2020 1047 EDT documented in this encounter Functional Status [...] Progress Notes * Mike Gotti RN - 09/17/2020 1045 EDT Examination chaperoned by MIKE GOTTI RN. * Juanito Carcamo MD FACS - 09/17/2020 1045 EDT Reason for Visit /HPI: Austin was seen in consultation at the request of Dr. Morales to discuss breast reconstruction. Dajuan a 45 y.o. female who has a new left breast cancer. Patient Active Problems: Patient Active Problem List Diagnosis ??? 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 Breast cancer in female (HCC-CMS) Past Medical History: Past Medical History: Diagnosis Date ??? Activity, other involving cardiorespiratory exercise just signed up for steps to wellness ??? Bladder incontinence ??? Exercise involving housework ??? Exercise involving walking july till february- runs [employer]- very active. ??? Head trauma 06/19/20 fell on ice. No loss of consciosness ??? History of general anesthesia ??? History of kidney stones past 3 stone ??? Poor dentition ??? Urgency of urination stress inc. Past Surgical History: Past Surgical History: Procedure Laterality Date ??? CHOLECYSTECTOMY ??? OTHER SURGICAL HISTORY 1998, 2011 epidural with childbirth Family History: Family History Problem Relation Age of Onset ??? Lung Cancer Mother Health Habits: Social History Tobacco Use ??? Smoking status: Former Smoker Packs/day: 0.50 Years: 30.00 Pack years: 15.00 Types: Cigarettes Quit date: 09/17/2020 Years since quittin.3 ??? Smokeless tobacco: Never Used ??? Tobacco comment: pt also vapes Vaping Use ??? Vaping Use: Former ??? Substances: Nicotine (3mg or none) ??? Devices: Disposable Substance Use Topics ??? Alcohol use: Yes Comment: rarely ??? Drug use: Never Medications: Outpatient Encounter Medications as of 09/17/2020 Medication Sig Dispense Refill ??? amLODIPine (NORVASC) 2.5 mg tablet Take 2.5 mg by mouth daily. ??? escitalopram oxalate (LEXAPRO) 10 mg tablet Take 20 mg by mouth daily. ??? INTRAUTERINE DEVICE, IUD, INTRAUTERINE by intrauterine route. ??? lidocaine-prilocaine (EMLA) cream Apply to port site and cover, 1 hr before planned port access(Patient not taking: Reported on 01/06/2021) 25 g 1 ??? [DISCONTINUED] omeprazole magnesium (PRILOSEC ORAL) Take by mouth. ??? [DISCONTINUED] ondansetron (ZOFRAN-ODT) 8 mg disintegrating tablet Take 1 Tab by mouth every 8 hours as needed for Nausea. (Patient not taking: Reported on 12/24/2020) 60 Tab 2 ??? [DISCONTINUED] oxybutynin (DITROPAN) 5 mg tablet Take 5 mg by mouth daily. (Patient not taking:Reported on 11/25/2020) ??? [DISCONTINUED] prochlorperazine (COMPAZINE) 10 mg tablet Take 1 Tab by mouth every 6 hours as needed for Nausea. (Patient not taking: Reported on 12/24/2020) 30 Tab 5 ??? [DISCONTINUED] traMADol (ULTRAM) 50 mg tablet Take 1 Tab by mouth every 6 hours as needed for Pain. Daily Max: 200 mg 20 Tab 0 No facility-administered encounter medications on file as of 09/17/2020. Allergies: Allergies Allergen Reactions ??? Ondansetron Other (See Comments) Dose to be limited to under 16mg daily while on Lexapro as EKG showed QTC as 0.4 ??? Oxycodone Other (See Comments) Made her hyper ROS: The patient denies neuro, endocrine, ENT, opthalmologic, pulmonary, cardiovascular, gastrointestinal, genitourinary, dermatologic, or musculoskeletal complaints other than those above. Vitals: Temp 36 ??C (96.8 ??F) (Temporal) Ht 167.1 cm (65.79) Wt 87.1 kg (192 lb) BMI 31.19 kg/m?? Physical Exam: Well developed, well nourished female in no apparent distress. Her body habitus is consistent with her BMI of 31.19. She has a sternal notch to nipple distance of 31 cm on the left and 31 cm on the right. She has grade 3 ptosis bilaterally. Her base diameter is 17 cm. Her nipple to inframammary fold distance is 14 cm on the left and 13.5 cm on the right. Her left inframammary fold is 1.5 cm higher than the right. Her skin envelope is lax. Assessment / Plan: 45 y.o. female with new left breast cancer I discussed breast reconstruction at length with Austin including reviewing the reconstruction possibilities ranging from: No reconstruction Immediate versus delayed reconstruction Implant based reconstruction Tissue freight sorter to implant Direct to implant Pre or subpectoral reconstructions with allograft Autologous tissue reconstruction TRAM, JANNETTE, SGAP, IGAP, TUG) Combined tissue and implant reconstruction Latissimus dorsi (lifeboat) We discussed the general risks of these reconstructive surgical techniques including reviewing the more specific risks of the reconstructions we most commonly perform here being tissue freight sorter to implant reconstruction, deep inferior epigastric splunk architect flap (JANNETTE) reconstruction and pedicled lat issimus flap reconstruction. In terms of tissue freight sorter implant based reconstruction the patient understands the technique to require at least 2 additional surgeries and serial fills of the tissue freight sorter over approximately a six-month period. She understands that tissue expanders and implants are mechanical devices and do have a failure rate and therefore will require a later surgery. We discussed capsular contracture (all grades), implant palpability/rippling, infection/tissue necrosis/implant exposure (which would most likely require implant removal). We discussed prepectoral versus subpectoral reconstruction techniques and the pros and cons of each. We discussed the use of human derived acellular dermal matrix aswell as the benefits and theoretical risks of its use. We discussed the significantly increased risks in freight sorter/implant reconstructions for patients who receive postoperative radiation and to a lesser degree have received previous radiation therapy for any reason. We discussed that based on national literature I expect for post operatively radiated implant based reconstructions 20% of patients will lose their reconstruction out right , 20% will have the poor enough result that they will choose another form of reconstruction but that 60% will have a acceptable to good reconstruction. They understand that in my opinion the numbers for prepectoral reconstruction are even better than 20/20/60. We discussed the history of abdominally based autologous tissue reconstruction including the TRAM, free TRAM and JANNETTE flap breast reconstruction. We discussed that JANNETTE flap reconstruction our go to procedure for autologous breast reconstruction. We discussed that this is a microsurgical procedure and the specific risks related to microsurgery. She understands that this is the most complex breastreconstructive surgery that we perform with the longest operative time and hospitalization of the techniques we use. We discussed the possibility of partial or complete flap loss plus fat necrosis. We discussed a 36-48 hour ICU stay for monitoring with the possibility of immediate return to the oper ating room should we have trouble. We discussed complications with the umbilicus including completeloss. We discussed hematoma/infection/seroma/prolonged drain placement. She understands that the benefit of the JANNETTE is the formation of a breast from her [place] tissue while preserving her abdominalmusculature and thus decreasing the risk of bulging and hernia formation as compared to a TRAM flap reconstruction. She understands that in the appropriate candidate the benefits outweigh the above risks. We discussed that with abdominally based autologous flaps that you can only reconstruct the breast once as the second side is discarded at the time of surgery unless the patient is undergoing bilateral surgery. We discussed that autologous tissue reconstructions usually require at least one additional surgery at which time we may or may not be able to perform a nipple reconstruction. We also discussed that currently we rarely perform immediate autologous tissue reconstruction and instead place prepectoral tissue expanders at the time of mastectomy or in rare cases simply perform a delayed castillo nstruction. We discussed Latissimus Dorsi flap reconstruction. She understands that this uses the Latissimus Dorsi muscle from the back to reconstruct the breast. We discussed that the LD is a very dependable flap with the drawback being the donor site and still requiring an implant for reconstruction. We discussed radiation therapy and the complications with autologous tissue reconstruction. We discussed JANNETTE/LD flap injury related to radiation in the possibility that a delayed reconstruction is frequently recommended as the most appropriate treatment course. Austin understands that reconstructed breasts are at best a facsimile of a breast. She understands that good symmetry usually comes from a matching procedure on the opposite breast. She also understands that once maximal symmetry is obtained and soft tissue has healed she has an option of nipple castillo nstruction with areolar tattooing. The relevant [place] [employer] consent forms were also provided to the patient for her per perusal I spent 65 minutes with this patient; 60 minutes was spent in counseling and coordination of care as described in the progress note. Juanito Carcamo MD FACS 01/19/2021 21:43 documented in this encounter Plan of Treatment Upcoming Encounters Date Type Department Care Team (Late st Contact Info) Description 01/31/2024 13:40 EDT Office Visit [facility] Surgical Oncology - [facility] [address] [place] [address] Maeve Morales, DO 111 [facility], [address] [place] [phone] documented as of this encounter Visit Diagnoses Diagnosis Malignant 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, estrogen receptor negative ([facility])- Primary documented in this encounter Care Teams Tunnel Elastic Operator Lockstitch Relationship Specialty Start Date End Date Batsheva Lira FNP [address] [phone] PCP - General 02/19/20 07/21/22 documented as of this encounter
--- OUTSIDE RECORDS SUMMARY | 2023-12-10 17:44 | XMS_ITS | Encounter Summary ---
Author Organization [facility] Address [address] [place] [address] Care Team Providers Care Processor Grain Name Role Phone Batsheva Lira JOHN Primary Care Provider [phone] Reason for Visit * Reason Comments Telemedicine Video Visit Encounter Details Date Type Department Care Team (Late st Contact Info) Description 09/02/2020 16:00 EDT Telemedicine [facility] Hematology & Oncology - Main [place] [address] [place] [address] [place] [address] [place] [phone] Malignant neoplasm of upper-inner quadrant of [...] Progress Notes * Queenie Conde MD - 09/02/2020 1600 EDT REASON FOR OFFICE VISIT Austin is a 44-year-old female here prior to cycle 4 of Taxol and carboplatinum given new adjuvantlyfor her triple negative breast cancer. NOTE: This is a telehealth visit being conducted via Zoom during the COVID-19 pandemic and recommendations from the [facility] to distance patients and providers for their safety. Austin is at home, I am in my office and she consents to a visit of this type. HISTORY OF PRESENT ILLNESS: Austin's anesthesiologist attending noticed a mass in 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?She then underwent imaging and a biopsy on 07/09/20 of a 2.1 cm mass revealed a nuclear grade 3 ER negative MS negative for B2 negative ductal carcinoma. Staging evaluation did reveal a prominent L IM lymphnode but othe rwise negative. Given her triple negative histology she began starting taxol/carboplatinum as part of the SIKOV Regimen on July 22, 2020.. ?? SUBJECTIVE: Austin is doing reasonably well. She had different rashes after each treatment. The first appeared to be hives and resolved with Benadryl. The second was on her scalp and resolved with topical Benadryl. She does have a little numbness but this does not impact her quality of life or function. Her finger lesion has healed and she believes her breast mass is significantly smaller. She does have some Taxol related muscle aches for which she takes Ultram. She has no additional new constitutional, cardiovascular, pulmonary, GI, ,PONY EDGER, musculoskeletal, psychiatric, neurologic, endocrine, or heme symptoms. ?? PAST MEDICAL HISTORY: 1.?Urinary incontinence 2.?Hypertension, well-controlled 3.?History of kidney stones,??none for the past 6 years 4.?Cholecystectomy in 2018 ?? MEDS Amlodipine, Mirena IUD, Lexapro, omeprazole, oxybutynin Ultram. ?? MENSTRUAL HISTORY:Austin is unclear when she began menstruating. ??She is G3, P3 with her first full-term at age 23. ??She is premenopausal. ??She did take oral contraceptives and recently had an IUD IUD placed (Mirena IUD). ?? 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 ??Her paternal relatives are of [place] descent. DIAGNOSTIC DATA Lab Results Component Value Date WBC 13.23 (H) 08/13/2020 HGB 15.3 (H) 08/13/2020 PLT 295 08/13/2020 ASSESSMENT: This is a 44-year old female with recently diagnosed triple negative breast cancer (clinical T2N0).??We discussed her case in conference and agreed on a neoadjuvant approach which given the size of her mass I do think is reasonable. ?? Her staging is negative although she still does have a slightly prominent internal mammary lymph node. She has begun the SIKOV regimen and is tolerating this reasonably well. ?? Austin has been cautioned to not take ondansetron given that she is on Lexapro. We did an EKG and her QTC is 0.4, she was instructed to try and keep her ondansetron use under 16 mg daily. We did talk quite a bit about the next steps and her plans for surgery and radiation therapy. She is looking forward to meeting with Dr. Morales again to better understand her surgical options. She kylie bit afraid of radiation therapy and I thought it might be good for her to speak with Dr. aMrvin again. ?? PLAN: 1. Austin will receive cycle 3 of Taxol 175 mg/m?? and carboplatinum AUC of 6 on 09/04. 2. Given that cycle 4 will be on 09/25 we will see if we can move out her appointment with Dr. Morales and coordinate an appointment with Dr. Marvin to be done prior to initiation of AC chemotherapy (whichwill be on 10/16) today. 3. Today I spent more than 40 minutes reviewing records, coordinating care, talking with Austin and documenting this visit Queenie Conde MD documented in this encounter Plan of Treatment Upcoming Encounters Date Type Department Care Team (Late st Contact Info) Description 01/31/2024 13:40 EDT Office Visit [facility] Surgical Oncology - [address] [id number] Maeve Morales, [address] [place] [address], [address] [place] [phone] documented as of this encounter Visit Diagnoses Diagnosis Malignant 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, estrogen receptor negative (HCC-CMS)- Primary documented in this encounter Orders Appointment Requests Count Last Ordered Date Fi rst Ordered Date ONCBCN CLINIC APPOINTMENT REQUEST 1 021 documented in this encounter Care Teams Processor Grain Relationship Specialty Start Date End Date Batsheva Lira FNP [address] [address] PCP - General 02/19/20 07/21/22 documented as of this encounter
--- OUTSIDE RECORDS SUMMARY | 2023-12-10 17:44 | XMS_ITS | Encounter Summary ---
Author Organization [facility] Address [address] [place] [address] Care Team Providers Care Diploma Pharmacy Technician Name Role Phone Batsheva Lira JOHN Primary Care Provider [phone] Reason for Visit * Reason Onset Date Comments Appointment Related 09/01/2020 Encounter Details Date Type Department Care Team (Late st Contact Info) Description 09/01/2020 Telephone [facility] Hematology & Oncology - [facility] [address] [place] [address] [place] [id number] [phone] Appointment Related Social History [...] Encounter - Soham Pastor MA - 09/01/2020 1118 EDT Spoke to patient regarding telemedicine appointment on 09/02/20. SOHAM PASTOR MA documented in this encounter Plan of Treatment Upcoming Encounters Date Type Department Care Team (Late st Contact Info) Description 01/31/2024 13:40 EDT Office Visit [facility] Surgical Oncology - [address] [address] Maeve Morales, [address] [facility], [address] [place] [phone] documented as of this encounter Visit Diagnoses Not on filedocumented in this encounter Care Teams Diploma Pharmacy Technician Relationship Specialty Start Date End Date Batsheva Lira FNP [address] [phone] PCP - General 02/19/20 07/21/22 documented as of this encounter
--- OUTSIDE RECORDS SUMMARY | 2023-12-10 17:44 | XMS_ITS | Encounter Summary ---
Author Organization [facility] Address [address] [place] [address] Care Team Providers Care Senior Premium Auditor Name Role Phone Batsheva Lira JOHN Primary Care Provider [phone] Reason for Visit * Reason Comments Chemotherapy And Provider Visit Encounter Details Date Type Department Care Team (Latest Contact Info) Description 09/25/2020 7:57 EDT - 09/25/2020 23:59 EDT Hospital Encounter [facility] Hematology & Oncology - Main [place] [address] [place], [place] [address] Malignant neoplasm of upper-inner quadrant of left [...] Progress Notes * Yulissa Mills RN - 09/25/2020 0830 EDT Out-patient Chemotherapy Note Patient presents to clinic today for cycle # 4 , day # 1 of Paclitaxel q 3 weeks and Carboplatin (AUC 6) treatment plan. Reviewed lab results with patient CBC: Lab Results Component Value Date WBC 5.30 09/25/2020 HGB 14.1 09/25/2020 HCT 40.5 09/25/2020 PLT 186 09/25/2020 NEUTROABS 2.86 09/25/2020 Chemistry: Lab Results Component Value Date NA 139 09/25/2020 K 3.9 09/25/2020 BUN 16 09/25/2020 CREATININE 0.40 (L) 09/25/2020 CALCIUM 9.1 09/25/2020 MG 1.7 09/25/2020 LFT: Lab Results Component Value Date TBIL <0.5 09/25/2020 ALKPHOS 140 (H) 09/25/2020 AST 50 (H) 09/25/2020 ALT 88 (H) 09/25/2020 . Parameters for today???s treatment met Patient noted with single IVAD for access. IV flushed, site patent, unremarkable and without redness and brisk blood return noted before and after chemotherapy infusions. Patient received pre-meds (Benadryl, Pepcid, Emend, Aloxi, Dex), Paclitaxel titrated over 3 hours and Carboplatin (see MAR). Patient appeared to tolerate tx well. Patient education: Patient educated on medications administered today. Patient expressed understanding of education provided and no barriers identified Patient' s single IVAD noted to have brisk blood return and device flushed per hospital policy. Access site noted to be patent, unremarkable and without redness. IVAD de-accessed, dressing applied. Patient encouraged to call clinic with any issues. I was supervised by Dr. Pace/Dr. Huerta who was present and immediately available in the office suite. Yulissa Mills RN documented in this encounter Miscellaneous Notes * Addendum Note - Bladimir Jenkins - 09/25/2020 0830 EDTEncounter addended by: Bladimir Jenkins on: 10/15/2020 12:25 Actions taken: Charge Capture section accepted documented in this encounter Plan of Treatment Upcoming Encounters Date Type Department Care Team (Late st Contact Info) Description 01/31/2024 13:40 EDT Office Visit [facility] Surgical Oncology - [facility] [address] [place], [place] [id number] Maeve Morales, DO [address] [facility], [facility], [address] [place] [address] documented as of this encounter Procedures Procedure Name Priority Date/Time Associated Diagnosis Comments COMPREHENSIVE METABOLIC PANEL (ONCOLOGY USE ONLY-INC MG) STAT 09/25/2020 8:08 EDT Malignant 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, estrogen receptor negative (HCC-CMS) COMPLETE BLOOD COUNT AND DIFF, CHEMO STAT 09/25/2020 8:08 EDT Malignant 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, estrogen receptor negative (HCC-CMS) documented in this encounter Results * (ABNORMAL) COMPLETE BLOOD COUNT AND DIFF, CHEMO (09/25/2020 8:08 EDT) WBC 5.30 4.00 - 12.40 K/cmm 09/25/2020 8:47 EDT [facility] RBC 4.83 3.86 - 5.04 M/cmm 09/25/2020 8:47 EDT [facility] Hemoglobin 14.1 11.6 - 15.2 gm/dL 09/25/2020 8:47 EDT [facility] HCT 40.5 34.9 - 44.4 % 09/25/2020 8:47 EDT [facility] MCV 84 81 - 98 fl 09/25/2020 8:47 EDT [facility] MCH 29.2 26.7 - 33.3 pg 09/25/2020 8:47 [facility] MCHC 34.8 32.1 - 35.9 gm/dL 09/25/2020 8:47 [facility] RDW-CV 14.4 <14.7 % 09/25/2020 8:47 [facility] RDW-SD 43.4 <50.4 fl 09/25/2020 8:47 [facility] PLT 186 141 - 377 K/[facility] 09/25/2020 8:47 [facility] MPV 9.3(L) 9.5 - 12.7 fl 09/25/2020 8:47 [facility] % Neutrophils 53.8 % 09/25/2020 8:47 [facility] Absolute Neutrophils 2.86 2.20 - 8.85 K/cmm 09/25/2020 8:47 [facility] Type of Differential: Auto 09/25/2020 8:47 [facility] Blood VENOUS BLOOD / Unknown Venipuncture / Unknown 09/25/2020 8:08 EDT 09/25/2020 8:32 EDT Queenie Conde MD PACKAGES & DNA PROBE ORDERABLES [facility] [address] [place] [address] * (ABNORMAL) COMPREHENSIVE METABOLIC PANEL (ONCOLOGY USE ONLY-INC MG) (09/25/2020 8:08 EDT) Sodium 139 136 - 145 mEq/L 09/25/2020 8:54 T [facility] Potassium 3.9 3.5 - 5.0 mEq/L 09/25/2020 8:54 [facility] Chloride 102 96 - 110 mEq/L 09/25/2020 8:54 [facility] CO2 Total 27 22 - 32 mEq/L 09/25/2020 8:54 [facility] Glucose 165(H) 70 - 100 mg/dL 09/25/2020 8:54 [facility] BUN 16 10 - 26 mg/dL 09/25/2020 8:54 [facility] Creatinine 0.40(L) 0.52 - 1.04 mg/dL 09/25/2020 8:54 [facility] eGFR 126 >60 mL/min/1.7 3m2 09/25/2020 8:54 [facility] Comment:eGFR calculated mata asif CKD-EPI equation for non- Americans. Multiply eGFR by 1.16 for patients. Total Protein 7.0 6.3 - 8.2 g/dL 09/25/2020 8:54 [facility] Albumin 4.2 3.4 - 4.9 g/dL 09/25/2020 8:54 [facility] Alkaline Phosphatase 140(H) 38 - 126 U/L 09/25/2020 8:54 [facility] AST 50(H) 15 - 46 U/L 09/25/2020 8:54 [facility] ALT 88(H) <35 U/L 09/25/2020 8:54 [facility] Bilirubin, Total <0.5 <1.4 mg/dL 09/26/19 8:54 [facility] Calcium 9.1 8.5 - 10.5 mg/dL 09/25/2020 8:54 [facility] Calculated Calcium 8.9 8.5 - 10.5 mg/dL 09/25/2020 8:54 [facility] Magnesium 1.7 1.7 - 2.8 mg/dL 09/25/2020 8:54 [facility] Blood VENOUS BLOOD / Unknown Venipuncture / Unknown 09/25/2020 8:08 EDT 09/25/2020 8:32 EDT Queenie Conde MD CHEMISTRY & BLOOD GA S ORDERABLES [facility] [address] [place] [address] documented in this encounter Visit Diagnoses Diagnosis [...] intravenous, NOW X1, 1 dose, On Klaudia 09/25/20 at 1315, Administer over 30 Minutes New Bag 09/25/2020 14:15 EDT 900 mg dexAMETHasone (DECADRON) 12 mg in sodium chloride (NS) 0.9 % 50 mL IVPB 12 mg, intravenous, Administer over 30 Minutes, NOW X1, 1 dose, On Klaudia 09/25/20 at 0930, Routine New Bag 09/25/2020 10:03 EDT 12 mg diphenhydrAMINE (BENADRYL) capsule 50 mg 50 mg, oral, NOW X1, 1 dose, On Klaudia 09/25/20 at 0930, Routine Given 09/25/2020 9:50 EDT 50 mg famotidine (PEPCID) injection 20 mg 20 mg, intravenous, NOW X1, 1 dose, On Klaudia 09/25/20 at 0930, Routine Given 09/25/2020 9:55 EDT 20 mg fosaprepitant (EMEND) 150 mg in sodium chloride (NS) 0.9 % 150 mL infusion 150 mg, intravenous, Administer over 30 Minutes, NOW X1, 1 dose, On Klaudia 09/25/20 at 0930, Routine New Bag 09/25/2020 10:25 EDT 150 mg PACLitaxel (TAXOL) 347 mg in sodium chloride (NS) 0.9 % 500 mL chemo infusion 347 mg (rounded from 346.5 mg = 175 mg/m2 ? 1.98 m2 Treatment Plan BSA from Recorded weight), intravenous, NOW X1, 1 dose, On Klaudia 09/25/20 at 1045, Administer over 3 Hours New Bag 09/25/2020 11:10 EDT 347 mg palonosetron (ALOXI) injection 0.25 mg 0.25 mg, intravenous, NOW X1, 1 dose, On Klaudia 09/25/20 at 0930, Routine Given 09/25/2020 9:54 EDT 0.25 mg sodium chloride 0.9 % (NS) infusion at 100 mL/hr, 250 mL, intravenous, CONTINUOUS, Starting on Klaudia 09/25/20 at 0930, Until Tue09/26/20 at 0949, Routine New Bag 09/25/2020 9:50 EDT 250 mL 75 mL/hr documented in this encounter Orders Medications Ordered That Juanito ht Not Have Been Administered Count Last Ordered Date First Ordered Date sodium chloride 0.9 % (flush) flush 20 mL 1 09/25/2020 Appointment Requests Count Last Ordered Date Fi rst Ordered Date ONCBCN INFUSION APPOINTMENT REQUEST 1 09/25 documented in this encounter Care Teams Senior Premium Auditor Relationship Specialty Start Date End Date Batsheva Lira FNP [address] [phone] PCP - General 02/19/20 07/21/22 documented as of this encounter
--- OUTSIDE RECORDS SUMMARY | 2023-12-10 17:45 | XMS_ITS | Encounter Summary ---
Author Organization [facility] Address [address] [place] [address] Care Team Providers Care Narrative Writer Name Role Phone Batsheva Lira JOHN Primary Care Provider [phone] Encounter Details Date Type Department Care Team (Late st Contact Info) Description 07/16/2020 Orders Only [facility] Hematology & Oncology - [address] [address] Lolly Antunez, RAHDA Malignant neoplasm of upper-inner quadrant of left [...] have Coronavirus / COVID-19? No / Unsure 07/15/2020 9:04 EST documented as of this encounter Functional [...] Description 01/31/2024 13:40 EDT Office Visit [facility] Surgical Oncology - [facility] [address] [place] [address] Maeve Morales, 111 [facility], [facility], [address] [place] [address] documented as of this encounter Visit Diagnoses Diagnosis Malignant 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, estrogen receptor negative (HCC-CMS)- Primary documented in this encounter Orders Appointment Requests Count Last Ordered Date Fi rst Ordered Date ONCBCN INFUSION APPOINTMENT REQUEST 3 09/0407/22/2020 ONCBCN CLINIC APPOINTMENT REQUEST 3 021 07/22/2020 documented in this encounter Care Teams Narrative Writer Relationship Specialty Start Date End Date Batsheva Lira FNP [address] [phone] PCP - General 02/19/20 07/21/22 documented as of this encounter
--- OUTSIDE RECORDS SUMMARY | 2023-12-10 17:45 | XMS_ITS | Encounter Summary ---
Author Organization [facility] Address [address] [place] [address] Care Team Providers Care Pharmacy Clinical Specialist Name Role Phone Batsheva Lira JOHN Primary Care Provider [phone] Pam Germain MD Unavailable [phone] Janay Duran MOTOR VEHICLE [employer]S INTERPRETER Primary Care Provider Unava ilable Reason for Visit * Reason Onset Date Comments Breast Cancer 07/15/2020 Encounter Details Date Type Department Care Team (Late st Contact Info) Description 07/15/2020 Orders Only [facility] Surgical Oncology - [address] [id number] Maeve Morales, DO 111 [facility], [facility] [address] [place] [address] Malignant neoplasm of female breast, unspecified estrogen receptor status, unspecified laterality, unspecified site of breast (HCC-CMS) (Primary Dx) [...] Info) Description 01/31/2024 13:40 EDT Office Visit [facility] Surgical Oncology - [address] [address] Mavee Morales DO [address] [address] documented as of this encounter Visit Diagnoses Diagnosis Malignant neoplasm of female breast, unspecified estrogen receptor status, unspecified laterality, unspecified site of breast ([facility]-CMS)- Primary documented in this encounter Care Teams Pharmacy Clinical Specialist Relationship Specialty Start Date End Date Batsheva Lira FNP [address] [phone] PCP - General 02/19/20 07/21/22 Janay Duran APRN [address] [place] [phone] PCP - General Family Medicine - Primary Care 07/22/22 Pam Germain MD [address] [place] [phone] Medical Oncology 03/22/22 documented as of this encounter
--- OUTSIDE RECORDS SUMMARY | 2023-12-10 17:45 | XMS_ITS | Encounter Summary ---
Author Organization [facility] Address [address] [place] [address] Care Team Providers Care System Sales Consultant Name Role Phone Batsheva Lira JOHN Primary Care Provider [phone] Reason for Visit * Reason Comments Chemotherapy And Provider Visit Encounter Details Date Type Department Care Team (Latest Contact Info) Description 07/22/2020 7:44 EST - 07/22/2020 23:59 EST Hospital Encounter [email or web address] Hematology & Oncology - Main [place] [address], [place] [id number] Malignant neoplasm of upper-inner quadrant of left [...] Take 30 mg by mouth daily. 12/03/2022 ethinyl estradiol-etonogestrel (NUVARING) 0.12-0.015 mg/[address] Each vaginally every 28 days. Wear continuously for 3 weeks; remove for 1 week; repeat with new ring, as directed. 08/08/2020 INTRAUTERINE DEVICE, IUD, INTRAUTERINE by intrauterine route. 01/11/2022 MELOXICAM ORAL Take by mouth as needed. 08/13/2020 methocarbamoL (ROBAXIN) 750 mg tablet Take 1 Tab by mouth 4 times daily. 20 Tab 06/19/2020 08/08/2020 ondansetron (ZOFRAN-ODT) 8 mg disintegrating tablet Take 1 Tab by mouth every 8 hours as needed for Nausea. 60 Tab 2 07/16/2020 12/25/2020 oxybutynin (DITROPAN) 5 mg tablet Take 5 mg by mouth daily. 11/27/2020 prochlorperazine (COMPAZINE) 10 mg tablet Take 1 Tab by mouth every 6 hours as needed for Nausea. 30 Tab 5 07/22/2020 12/25/2020 documented as of this encounter Discharge Disposition Disposition Code Departure Means Destination Home or Self Care documented in this encounter Progress Notes * Sofia Jade RN - 07/22/2020 0800 EST Out-patient Chemotherapy Note Patient presents to clinic today for cycle # 1, day # 1 of PACLITAXEL + CARBOPLATIN treatment plan. Reviewed lab results with patient CBC: Lab Results Component Value Date WBC 8.35 07/22/2020 HGB 14.9 07/22/2020 HCT 45.4 (H) 07/22/2020 PLT 297 07/22/2020 NEUTROABS 5.67 07/22/2020 Chemistry: Lab Results Component Value Date NA 140 07/22/2020 K 4.4 07/22/2020 BUN 12 07/22/2020 CREATININE 0.51 (L) 07/22/2020 CALCIUM 9.4 07/22/2020 MG 1.9 07/22/2020 LFT: Lab Results Component Value Date TBIL <0.5 07/22/2020 ALKPHOS 113 07/22/2020 AST 80 (H) 07/22/2020 ALT 114 (H) 07/22/2020 Parameters for today???s treatment met. EKG baseline done today prior to starting Ondansetron at home as patient is on Lexapro that can cause cardiac symptoms when taken together, per her pharmacist and MD Henry. Compazine script sent to [facility] pharmacy today. Patient noted with Peripheral IV Right forearm for access. IV flushed, site patent, unremarkable and without redness and brisk blood return noted before and after all chemotherapy infusions. Patient received pre-meds Aloxi, Pepcid IV, Emend, and Dexamethasone IV; PRN Ativan 1 mg given X1 for restlessness d/t Benadryl; Paclitaxel titrated over 3 hrs and Carboplatin given over 30 min per protocol (see MAR). Neulasta Onpro discussed with patient, she had asked about it; will be used during AC regimen, per MD Henry. Patient tolerating chemotherapy treatment at this time with no signs of reaction or side effects. Patient education: Patient verbally educated on all medications administered today. Patient expressed understanding of education provided and no barriers identified. Premedications, chemotherapy, and take home medications reviewed with patient, questions answered. Patient' s Peripheral IV Right forearm noted to have brisk blood return and device flushed per hospital policy. Access site noted to be patent, unremarkable and without redness. PIV removed, dressingapplied. Patient and family encouraged to call clinic with any issues. I was supervised by Dr. Gordon who was present and immediately available in the office suite. SOFIA JADE RN 07/22/2020 7:59 documented in this encounter Miscellaneous Notes * Addendum Note - Bladimir Jenkins - 07/22/2020 0800 ESTEncounter addended by: Bladimir Jenkins on: 08/15/2020 10:49 Actions taken: Charge Capture section accepted documented in this encounter Plan of Treatment Upcoming Encounters Date Type Department Care Team (Late st Contact Info) Description 01/31/2024 13:40 EDT Office Visit [facility] - [facility] [address], [place] [id number] Maeve Morales, DO [address] [facility], [facility], [address] [place] [address] Scheduled Orders Name Type Priority Associated Diagnoses Orde r Schedule EKG 12-LEAD ECG STAT Malignant 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, estrogen receptor negative (HCC-CMS) Ordered: 07/22/2020 documented as of this encounter Procedures Procedure Name Priority Date/Time Associated Diagnosis Comments EKG 12-LEAD 07/22/2020 9:50 EST COMPREHENSIVE METABOLIC PANEL (ONCOLOGY USE ONLY-INC MG) STAT 07/22/2020 7:56 EST Malignant 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, estrogen receptor negative (HCC-CMS) COMPLETE BLOOD COUNT AND DIFF, CHEMO STAT 07/22/2020 7:56 EST Malignant 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, estrogen receptor negative (HCC-CMS) documented in this encounter Results * (ABNORMAL) COMPLETE BLOOD COUNT AND DIFF, CHEMO (02/05/2021 12:20 EDT) WBC 6.04 4.00 - 12.40 K/cmm 02/05/2021 12:35 EDT [facility] RBC 4.85 3.86 - 5.04 M/cmm 02/05/2021 12:35 EDT [facility] Hemoglobin 14.4 11.6 - 15.2 gm/dL 02/05/2021 12:35 [facility] HCT 44.0 34.9 - 44.4 % 02/05/2021 12:35 [facility] MCV 91 81 - 98 fl 02/05/2021 12:35 [facility] MCH 29.7 26.7 - 33.3 pg 02/05/2021 12:35 [facility] MCHC 32.7 32.1 - 35.9 gm/dL 02/05/2021 12:35 [facility] RDW-CV 12.6 <14.7 % 02/05/2021 12:35 [facility] RDW-SD 41.7 <50.4 fl 02/05/2021 12:35 [facility] PLT 255 141 - 377 K/cmm 02/05/2021 12:35 [facility] MPV 9.2(L) 9.5 - 12.7 fl 02/05/2021 12:35 [facility] % Neutrophils 56.9 % 02/05/2021 12:35 [facility] Absolute Neutrophils 3.44 2.20 - 8.85 K/cmm 02/05/2021 12:35 [facility] Type of Differential: Auto 02/05/2021 12:35 [facility] Blood VENOUS BLOOD / Unknown Venipuncture / Unknown 02/05/2021 12:20 EDT 02/05/2021 12:23 EDT Teri Henry MD PACKAGES & DNA PROBE ORDERABLES [facility] [address] [place] [address] * (ABNORMAL) COMPREHENSIVE METABOLIC PANEL (ONCOLOGY USE ONLY-INC MG) (02/05/2021 12:20 EDT) Sodium 139 136 - 145 mmol/L 02/05/2021 12:57 [facility] Potassium 4.0 3.5 - 5.0 mEq/L 02/05/2021 12:57 [facility] Chloride 101 96 - 110 mEq/L 02/05/2021 12:57 [facility] CO2 Total 25 22 - 32 mEq/L 02/05/2021 12:57 [facility] Glucose 141(H) 70 - 100 mg/dL 02/05/2021 12:57 [facility] BUN 9(L) 10 - 26 mg/dL 02/05/2021 12:57 [facility] Creatinine 0.51(L) 0.52 - 1.04 mg/dL 02/05/2021 12:57 [facility] eGFR 116 >60 mL/min/1.7 3m2 02/05/2021 12:57 [facility] Comment:eGFR calculated mata asif CKD-EPI equation for non- Americans. Multiply eGFR by 1.16 for patients. Total Protein 7.8 6.3 - 8.2 g/dL 02/05/2021 12:57 [facility] Albumin 4.9 3.4 - 4.9 g/dL 02/05/2021 12:57 [facility] Alkaline Phosphatase 161(H) 38 - 126 U/L 02/05/2021 12:57 [facility] AST 102(H) 15 - 46 U/L 02/05/2021 12:57 [facility] ALT 157(H) <35 U/L 02/05/2021 12:57 [facility] Bilirubin, Total <0.5 <1.4 mg/dL 02/06/20 12:57 [facility] Calcium 10.3 8.5 - 10.5 mg/dL 02/05/2021 12:57 [facility] Calculated Calcium 9.6 8.5 - 10.5 mg/dL 02/05/2021 12:57 [facility] Magnesium 1.8 1.7 - 2.8 mg/dL 02/05/2021 12:57 [facility] Blood VENOUS BLOOD / Unknown Venipuncture / Unknown 02/05/2021 12:20 EDT 02/05/2021 12:23 EDT Teri Henry MD CHEMISTRY & BLOOD GA S ORDERABLES [facility] [address] [place] [address] * COMPLETE BLOOD COUNT AND DIFF, CHEMO (01/27/2021 11:41 EDT) WBC 6.13 4.00 - 12.40 K/cmm 01/27/2021 12:01 [facility] RBC 4.63 3.86 - 5.04 M/cmm 01/27/2021 12:01 [facility] Hemoglobin 14.3 11.6 - 15.2 gm/dL 01/27/2021 12:01 [facility] HCT 43.0 34.9 - 44.4 % 01/27/2021 12:01 [facility] MCV 93 81 - 98 fl 01/27/2021 12:01 [facility] MCH 30.9 26.7 - 33.3 pg 01/27/2021 12:01 [facility] MCHC 33.3 32.1 - 35.9 gm/dL 01/27/2021 12:01 [facility] RDW-CV 12.8 <14.7 % 01/27/2021 12:01 [facility] RDW-SD 43.7 <50.4 fl 01/27/2021 12:01 [facility] PLT 259 141 - 377 K/cmm 01/27/2021 12:01 [facility] MPV 9.5 9.5 - 12.7 fl 01/27/2021 12:01 [facility] % Neutrophils 58.7 % 01/27/2021 12:01 [facility] Absolute Neutrophils 3.60 2.20 - 8.85 K/cmm 01/27/2021 12:01 [facility] Type of Differential: Auto 01/27/2021 12:01 [facility] Blood VENOUS BLOOD / Unknown Venipuncture / Unknown 01/27/2021 11:41 EDT 01/27/2021 11:48 EDT Teri Henry MD PACKAGES & DNA PROBE ORDERABLES [facility] [address] [place] [address] * (ABNORMAL) COMPREHENSIVE METABOLIC PANEL (ONCOLOGY USE ONLY-INC MG) (01/27/2021 11:41 EDT) Sodium 140 136 - 145 mmol/L 01/27/2021 12:10 [facility] Potassium 4.2 3.5 - 5.0 mEq/L 01/27/2021 12:10 [facility] Chloride 104 96 - 110 mEq/L 01/27/2021 12:10 [facility] CO2 Total 21(L) 22 - 32 mEq/L 01/27/2021 12:10 [facility] Glucose 121(H) 70 - 100 mg/dL 01/27/2021 12:10 [facility] BUN 16 10 - 26 mg/dL 01/27/2021 12:10 [facility] Creatinine 0.45(L) 0.52 - 1.04 mg/dL 01/27/2021 12:10 [facility] eGFR 121 >60 mL/min/1.7 3m2 01/27/2021 12:10 [facility] Comment:eGFR calculated mata asif CKD-EPI equation for non- Americans. Multiply eGFR by 1.16 for patients. Total Protein 8.0 6.3 - 8.2 g/dL 01/27/2021 12:10 [facility] Albumin 5.1(H) 3.4 - 4.9 g/dL 01/27/2021 12:10 [facility] Alkaline Phosphatase 151(H) 38 - 126 U/L 01/27/2021 12:10 [facility] AST 121(H) 15 - 46 U/L 01/27/2021 12:10 [facility] ALT 158(H) <35 U/L 01/27/2021 12:10 [facility] Bilirubin, Total <0.5 <1.4 mg/dL 01/28/20 12:10 [facility] Calcium 10.0 8.5 - 10.5 mg/dL 01/27/2021 12:10 [facility] Calculated Calcium 9.1 8.5 - 10.5 mg/dL 01/27/2021 12:10 [facility] Magnesium 1.9 1.7 - 2.8 mg/dL 01/27/2021 12:10 [facility] Blood VENOUS BLOOD / Unknown Venipuncture / Unknown 01/27/2021 11:41 EDT 01/27/2021 11:48 EDT Teri Henry MD CHEMISTRY & BLOOD GA S ORDERABLES Performing Organization Address [facility]/State/[facility] Co de Phone Number [facility] [address] [place] [address] * (ABNORMAL) COMPLETE BLOOD COUNT AND DIFF, CHEMO (12/17/2020 9:48 EDT) WBC 5.56 4.00 - 12.40 K/cmm 12/17/2020 9:59 [facility] RBC 3.77(L) 3.86 - 5.04 M/cmm 12/17/2020 9:59 [facility] Hemoglobin 12.3 11.6 - 15.2 gm/dL 12/17/2020 9:59 [facility] HCT 37.0 34.9 - 44.4 % 12/17/2020 9:59 [facility] MCV 98 81 - 98 fl 12/17/2020 9:59 [facility] MCH 32.6 26.7 - 33.3 pg 12/17/2020 9:59 [facility] MCHC 33.2 32.1 - 35.9 gm/dL 12/17/2020 9:59 [facility] RDW-CV 18.8(H) <14.7 % 12/17/2020 9:59 [facility] RDW-SD 68.3(H) <50.4 fl 12/17/2020 9:59 [facility] PLT 280 141 - 377 K/cmm 12/17/2020 9:59 [facility] MPV 9.8 9.5 - 12.7 fl 12/17/2020 9:59 [facility] % Neutrophils 65.7 % 12/17/2020 9:59 [facility] Absolute Neutrophils 3.65 2.20 - 8.85 K/cmm 12/17/2020 9:59 [facility] Type of Differential: Auto 12/17/2020 9:59 [facility] Blood VENOUS BLOOD / Unknown Venipuncture / Unknown 12/17/2020 9:48 EDT 12/17/2020 9:55 EDT Teri Henry MD PACKAGES & DNA PROBE ORDERABLES Performing Organization Address City/State/[facility] Co de Phone Number [facility] [address] [place] [address] * (ABNORMAL) COMPREHENSIVE METABOLIC PANEL (ONCOLOGY USE ONLY-INC MG) (12/17/2020 9:48 EDT) Sodium 140 136 - 145 mEq/L 12/17/2020 10:31 [facility] Potassium 3.9 3.5 - 5.0 mEq/L 12/17/2020 10:31 [facility] Chloride 103 96 - 110 mEq/L 12/17/2020 10:31 [facility] CO2 Total 23 22 - 32 mEq/L 12/17/2020 10:31 [facility] Glucose 191(H) 70 - 100 mg/dL 12/17/2020 10:31 [facility] BUN 10 10 - 26 mg/dL 12/17/2020 10:31 [facility] Creatinine 0.46(L) 0.52 - 1.04 mg/dL 12/17/2020 10:31 [facility] eGFR 121 >60 mL/min/1.7 3m2 12/17/2020 10:31 [facility] Comment:eGFR calculated mata asif CKD-EPI equation for non- Americans. Multiply eGFR by 1.16 for patients. Total Protein 7.1 6.3 - 8.2 g/dL 12/17/2020 10:31 [facility] Albumin 4.7 3.4 - 4.9 g/dL 12/17/2020 10:31 [facility] Alkaline Phosphatase 152(H) 38 - 126 U/L 12/17/2020 10:31 [facility] AST 90(H) 15 - 46 U/L 12/17/2020 10:31 [facility] ALT 100(H) <35 U/L 12/17/2020 10:31 [facility] Bilirubin, Total 0.6 <1.4 mg/dL 12/18/19 10:31 [facility] Calcium 9.7 8.5 - 10.5 mg/dL 12/17/2020 10:31 [facility] Calculated Calcium 9.1 8.5 - 10.5 mg/dL 12/17/2020 10:31 [facility] Magnesium 1.8 1.7 - 2.8 mg/dL 12/17/2020 10:31 [facility] Blood VENOUS BLOOD / Unknown Venipuncture / Unknown 12/17/2020 9:48 EDT 12/17/2020 9:55 EDT Teri Henry MD CHEMISTRY & BLOOD GA S ORDERABLES [facility] [address] [place] [address] * (ABNORMAL) COMPLETE BLOOD COUNT AND DIFF, CHEMO (11/27/2020 9:10 EDT) WBC 8.27 4.00 - 12.40 K/cmm 11/27/2020 9:32 [facility] RBC 3.79(L) 3.86 - 5.04 M/cmm 11/27/2020 9:32 [facility] Hemoglobin 11.6 11.6 - 15.2 gm/dL 11/27/2020 9:32 [facility] HCT 34.2(L) 34.9 - 44.4 % 11/27/2020 9:32 [facility] MCV 90 81 - 98 fl 11/27/2020 9:32 [facility] MCH 30.6 26.7 - 33.3 pg 11/27/2020 9:32 [facility] MCHC 33.9 32.1 - 35.9 gm/dL 11/27/2020 9:32 [facility] RDW-CV 18.5(H) <14.7 % 11/27/2020 9:32 [facility] RDW-SD 57.1(H) <50.4 fl 11/27/2020 9:32 [facility] PLT 184 141 - 377 K/cm 11/27/2020 9:32 [facility] MPV 10.2 9.5 - 12.7 fl 11/27/2020 9:32 [facility] % Neutrophils 64.9 % 11/27/2020 9:32 [facility] Absolute Neutrophils 5.36 2.20 - 8.85 K/cmm 11/27/2020 9:32 [facility] Type of Differential: Auto 11/27/2020 9:32 [facility] Blood VENOUS BLOOD / Unknown Venipuncture / Unknown 11/27/2020 9:10 EDT 11/27/2020 9:27 EDT Teri Henry MD PACKAGES & DNA PROBE ORDERABLES [facility] [address] [place] [address] * (ABNORMAL) COMPREHENSIVE METABOLIC PANEL (ONCOLOGY USE ONLY-INC MG) (11/27/2020 9:10 EDT) Sodium 138 136 - 145 mEq/L 11/27/2020 10:12 [facility] Potassium 4.1 3.5 - 5.0 mEq/L 11/27/2020 10:12 [facility] Chloride 100 96 - 110 mEq/L 11/27/2020 10:12 [facility] CO2 Total 23 22 - 32 mEq/L 11/27/2020 10:12 [facility] Glucose 197(H) 70 - 100 mg/dL 11/27/2020 10:12 [facility] BUN 15 10 - 26 mg/dL 11/27/2020 10:12 [facility] Creatinine 0.40(L) 0.52 - 1.04 mg/dL 11/27/2020 10:12 [facility] eGFR 126 >60 mL/min/1.7 3m2 11/27/2020 10:12 [facility] Comment:eGFR calculated mata asif CKD-EPI equation for non- Americans. Multiply eGFR by 1.16 for patients. Total Protein 7.2 6.3 - 8.2 g/dL 11/27/2020 10:12 [facility] Albumin 4.7 3.4 - 4.9 g/dL 11/27/2020 10:12 [facility] Alkaline Phosphatase 155(H) 38 - 126 U/L 11/27/2020 10:12 [facility] AST 60(H) 15 - 46 U/L 11/27/2020 10:12 [facility] ALT 98(H) <35 U/L 11/27/2020 10:12 [facility] Bilirubin, Total <0.5 <1.4 mg/dL 11/28/19 10:12 [facility] Calcium 9.5 8.5 - 10.5 mg/dL 11/27/2020 10:12 [facility] Calculated Calcium 8.9 8.5 - 10.5 mg/dL 11/27/2020 10:12 [facility] Magnesium 1.8 1.7 - 2.8 mg/dL 11/27/2020 10:12 [facility] Blood VENOUS BLOOD / Unknown Venipuncture / Unknown 11/27/2020 9:10 EDT 11/27/2020 9:27 EDT Teri Henry MD CHEMISTRY & BLOOD GA S ORDERABLES [facility] [address] [place] [address] * (ABNORMAL) COMPLETE BLOOD COUNT AND DIFF, CHEMO (11/13/2020 12:47 EDT) WBC 7.88 4.00 - 12.40 K/cmm 11/13/2020 13:18 [facility] RBC 3.77(L) 3.86 - 5.04 M/cmm 11/13/2020 13:18 [facility] Hemoglobin 11.7 11.6 - 15.2 gm/dL 11/13/2020 13:18 [facility] HCT 33.2(L) 34.9 - 44.4 % 11/13/2020 13:18 [facility] MCV 88 81 - 98 fl 11/13/2020 13:18 [facility] MCH 31.0 26.7 - 33.3 pg 11/13/2020 13:18 [facility] MCHC 35.2 32.1 - 35.9 gm/dL 11/13/2020 13:18 [facility] RDW-CV 16.8(H) <14.7 % 11/13/2020 13:18 [facility] RDW-SD 50.4(H) <50.4 fl 11/13/2020 13:18 [facility] PLT 190 141 - 377 K/cmm 11/13/2020 13:18 T [facility] MPV 10.2 9.5 - 12.7 fl 11/13/2020 13:18 [facility] % Neutrophils 66.3 % 11/13/2020 13:18 [facility] Absolute Neutrophils 5.22 2.20 - 8.85 K/cmm 11/13/2020 13:18 [facility] Type of Differential: Auto 11/13/2020 13:18 [facility] Blood VENOUS BLOOD / Unknown Venipuncture / Unknown 11/13/2020 12:47 EDT 11/13/2020 13:01 EDT Teri Henry MD PACKAGES & DNA PROBE ORDERABLES [facility] [address] [place] [address] * (ABNORMAL) COMPREHENSIVE METABOLIC PANEL (ONCOLOGY USE ONLY-INC MG) (11/13/2020 12:47 EDT) Sodium 140 136 - 145 mEq/L 11/13/2020 13:19 [facility] Potassium 4.0 3.5 - 5.0 mEq/L 11/13/2020 13:19 [facility] Chloride 104 96 - 110 mEq/L 11/13/2020 13:19 [facility] CO2 Total 23 22 - 32 mEq/L 11/13/2020 13:19 [facility] Glucose 206(H) 70 - 100 mg/dL 11/13/2020 13:19 [facility] BUN 13 10 - 26 mg/dL 11/13/2020 13:19 [facility] Creatinine 0.38(L) 0.52 - 1.04 mg/dL 11/13/2020 13:19 [facility] eGFR 128 >60 mL/min/1.7 3m2 11/13/2020 13:19 [facility] Comment:eGFR calculated mata asif CKD-EPI equation for non- Americans. Multiply eGFR by 1.16 for patients. Total Protein 6.9 6.3 - 8.2 g/dL 11/13/2020 13:19 [facility] Albumin 4.3 3.4 - 4.9 g/dL 11/13/2020 13:19 [facility] Alkaline Phosphatase 142(H) 38 - 126 U/L 11/13/2020 13:19 [facility] AST 56(H) 15 - 46 U/L 11/13/2020 13:19 [facility] ALT 91(H) <35 U/L 11/13/2020 13:19 [facility] Bilirubin, Total <0.5 <1.4 mg/dL 11/14/19 13:19 [facility] Calcium 9.2 8.5 - 10.5 mg/dL 11/13/2020 13:19 [facility] Calculated Calcium 9.0 8.5 - 10.5 mg/dL 11/13/2020 13:19 [facility] Magnesium 1.8 1.7 - 2.8 mg/dL 11/13/2020 13:19 [facility] [facility] Blood VENOUS BLOOD / Unknown Venipuncture / Unknown 11/13/2020 12:47 EDT 11/13/2020 13:01 EDT Teri Henry MD CHEMISTRY & BLOOD GA S ORDERABLES Performing Organization Address City/State/[facility] Co de Phone Number [facility] [address] [place] [address] * (ABNORMAL) COMPLETE BLOOD COUNT AND DIFF, CHEMO (10/30/2020 8:35 EDT) WBC 6.81 4.00 - 12.40 K/cmm 10/30/2020 8:56 [facility] RBC 4.19 3.86 - 5.04 M/cmm 10/30/2020 8:56 [facility] Hemoglobin 12.5 11.6 - 15.2 gm/dL 10/30/2020 8:56 [facility] HCT 36.8 34.9 - 44.4 % 10/30/2020 8:56 [facility] MCV 88 81 - 98 fl 10/30/2020 8:56 [facility] MCH 29.8 26.7 - 33.3 pg 10/30/2020 8:56 [facility] MCHC 34.0 32.1 - 35.9 gm/dL 10/30/2020 8:56 [facility] RDW-CV 16.0(H) <14.7 % 10/30/2020 8:56 [facility] RDW-SD 49.0 <50.4 fl 10/30/2020 8:56 [facility] PLT 204 141 - 377 K/cmm 10/30/2020 8:56 [facility] MPV 9.9 9.5 - 12.7 fl 10/30/2020 8:56 [facility] % Neutrophils 60.2 % 10/30/2020 8:56 [facility] Absolute Neutrophils 4.10 2.20 - 8.85 K/cmm 10/30/2020 8:56 [facility] Type of Differential: Auto 10/30/2020 8:56 [facility] Blood BLOOD SAMPLE TAKEN FROM CENTRAL LINE / Unknown Venipuncture / Unknown 10/30/2020 8:35 EDT 10/30/2020 8:46 EDT Teri Henry MD PACKAGES & DNA PROBE ORDERABLES [facility] [address] [place] [address] * (ABNORMAL) COMPREHENSIVE METABOLIC PANEL (ONCOLOGY USE ONLY-INC MG) (10/30/2020 8:35 EDT) Sodium 139 136 - 145 mEq/L 10/30/2020 9:21 [facility] Potassium 4.0 3.5 - 5.0 mEq/L 10/30/2020 9:21 [facility] Chloride 101 96 - 110 mEq/L 10/30/2020 9:21 [facility] CO2 Total 27 22 - 32 mEq/L 10/30/2020 9:21 [facility] Glucose 154(H) 70 - 100 mg/dL 10/30/2020 9:21 [facility] BUN 12 10 - 26 mg/dL 10/30/2020 9:21 [facility] Creatinine 0.40(L) 0.52 - 1.04 mg/dL 10/30/2020 9:21 [facility] eGFR 126 >60 mL/min/1.7 3m2 10/30/2020 9:21 [facility] Comment:eGFR calculated mata asif CKD-EPI equation for non- Americans. Multiply eGFR by 1.16 for patients. Total Protein 7.0 6.3 - 8.2 g/dL 10/30/2020 9:21 [facility] Albumin 4.3 3.4 - 4.9 g/dL 10/30/2020 9:21 [facility] Alkaline Phosphatase 162(H) 38 - 126 U/L 10/30/2020 9:21 [facility] AST 51(H) 15 - 46 U/L 10/30/2020 9:21 [facility] ALT 84(H) <35 U/L 10/30/2020 9:21 [facility] Bilirubin, Total <0.5 <1.4 mg/dL 10/31/19 9:21 [facility] Calcium 9.3 8.5 - 10.5 mg/dL 10/30/2020 9:21 [facility] Calculated Calcium 9.1 8.5 - 10.5 mg/dL 10/30/2020 9:21 [facility] Magnesium 1.9 1.7 - 2.8 mg/dL 10/30/2020 9:21 [facility] Blood VENOUS BLOOD / Unknown Central Line Draw / Unknown 10/30/2020 8:35 EDT 10/30/2020 8:46 EDT Teri Henry MD CHEMISTRY & BLOOD GA S ORDERABLES [facility] [address] [place] [address] * (ABNORMAL) COMPLETE BLOOD COUNT AND DIFF, CHEMO (10/23/2020 9:10 EDT) WBC 1.38(L) 4.00 - 12.40 K/cmm 10/23/2020 10:52 T [facility] RBC 4.33 3.86 - 5.04 M/cmm 10/23/2020 10:52 [facility] Hemoglobin 12.7 11.6 - 15.2 gm/dL 10/23/2020 10:52 [facility] HCT 36.8 34.9 - 44.4 % 10/23/2020 10:52 [facility] MCV 85 81 - 98 fl 10/23/2020 10:52 [facility] MCH 29.3 26.7 - 33.3 pg 10/23/2020 10:52 [facility] MCHC 34.5 32.1 - 35.9 gm/dL 10/23/2020 10:52 [facility] RDW-CV 14.3 <14.7 % 10/23/2020 10:52 [facility] RDW-SD 44.2 <50.4 fl 10/23/2020 10:52 [facility] PLT 70(L) 141 - 377 K/cmm 10/23/2020 10:52 [facility] MPV 10.3 9.5 - 12.7 fl 10/23/2020 10:52 [facility] Type of Differential: Manual 10/23/2020 10:52 [facility] Comment:Automated differenti al not available. Manual differential to follow. Blood VENOUS BLOOD / Unknown Venipuncture / Unknown 10/23/2020 9:10 EDT 10/23/2020 9:56 EDT Teri Henry MD PACKAGES & DNA PROBE ORDERABLES [facility] [address] [place] [address] * (ABNORMAL) COMPREHENSIVE METABOLIC PANEL (ONCOLOGY USE ONLY-INC MG) (10/23/2020 9:10 EDT) Sodium 140 136 - 145 mEq/L 10/23/2020 10:11 [facility] Potassium 3.9 3.5 - 5.0 mEq/L 10/23/2020 10:11 [facility] Chloride 101 96 - 110 mEq/L 10/23/2020 10:11 [facility] CO2 Total 26 22 - 32 mEq/L 10/23/2020 10:11 [facility] Glucose 155(H) 70 - 100 mg/dL 10/23/2020 10:11 [facility] BUN 9(L) 10 - 26 mg/dL 10/23/2020 10:11 [facility] Creatinine 0.42(L) 0.52 - 1.04 mg/dL 10/23/2020 10:11 [facility] eGFR 124 >60 mL/min/1.7 3m2 10/23/2020 10:11 [facility] Comment:eGFR calculated mata asif CKD-EPI equation for non- Americans. Multiply eGFR by 1.16 for patients. Total Protein 7.0 6.3 - 8.2 g/dL 10/23/2020 10:11 [facility] Albumin 4.2 3.4 - 4.9 g/dL 10/23/2020 10:11 [facility] Alkaline Phosphatase 159(H) 38 - 126 U/L 10/23/2020 10:11 [facility] AST 38 15 - 46 U/L 10/23/2020 10:11 [facility] ALT 66(H) <35 U/L 10/23/2020 10:11 [facility] Bilirubin, Total <0.5 <1.4 mg/dL 10/24/19 10:11 T [facility] Calcium 9.3 8.5 - 10.5 mg/dL 10/23/2020 10:11 [facility] Calculated Calcium 9.1 8.5 - 10.5 mg/dL 10/23/2020 10:11 EDT [facility] Magnesium 1.8 1.7 - 2.8 mg/dL 10/23/2020 10:11 T [facility] Blood VENOUS BLOOD / Unknown Venipuncture / Unknown 10/23/2020 9:10 EDT 10/23/2020 9:56 EDT Teri Henry MD CHEMISTRY & BLOOD GA S ORDERABLES Performing Organization Address City/State[facility] Co de Phone Number [facility] [address] [place] [address] * (ABNORMAL) COMPLETE BLOOD COUNT AND DIFF, CHEMO (10/16/2020 12:59 EDT) WBC 5.77 4.00 - 12.40 K/cmm 10/16/2020 13:12 [facility] RBC 4.42 3.86 - 5.04 M/cmm 10/16/2020 13:12 [facility] Hemoglobin 12.9 11.6 - 15.2 gm/dL 10/16/2020 13:12 [facility] HCT 37.4 34.9 - 44.4 % 10/16/2020 13:12 [facility] MCV 85 81 - 98 fl 10/16/2020 13:12 [facility] MCH 29.2 26.7 - 33.3 pg 10/16/2020 13:12 [facility] MCHC 34.5 32.1 - 35.9 gm/dL 10/16/2020 13:12 [facility] RDW-CV 14.8(H) <14.7 % 10/16/2020 13:12 [facility] RDW-SD 45.2 <50.4 fl 10/16/2020 13:12 [facility] PLT 159 141 - 377 K/cmm 10/16/2020 13:12 [facility] MPV 9.7 9.5 - 12.7 fl 10/16/2020 13:12 [facility] % Neutrophils 58.4 % 10/16/2020 13:12 [facility] Absolute Neutrophils 3.37 2.20 - 8.85 K/cmm 10/16/2020 13:12 [facility] Type of Differential: Auto 10/16/2020 13:12 [facility] Blood VENOUS BLOOD / Unknown Venipuncture / Unknown 10/16/2020 12:59 EDT 10/16/2020 13:03 EDT Teri Henry MD PACKAGES & DNA PROBE ORDERABLES Performing Organization Address City/State/[facility] Co de Phone Number [facility] [address] [place] [address] * (ABNORMAL) COMPREHENSIVE METABOLIC PANEL (ONCOLOGY USE ONLY-INC MG) (10/16/2020 12:59 EDT) Sodium 136 136 - 145 mEq/L 10/16/2020 13:31 [facility] Potassium 4.0 3.5 - 5.0 mEq/L 10/16/2020 13:31 [facility] Chloride 101 96 - 110 mEq/L 10/16/2020 13:31 [facility] CO2 Total 24 22 - 32 mEq/L 10/16/2020 13:31 [facility] Glucose 230(H) 70 - 100 mg/dL 10/16/2020 13:31 [facility] BUN 11 10 - 26 mg/dL 10/16/2020 13:31 [facility] Creatinine 0.36(L) 0.52 - 1.04 mg/dL 10/16/2020 13:31 [facility] eGFR 131 >60 mL/min/1.7 3m2 10/16/2020 13:31 [facility] Comment:eGFR calculated mata asif CKD-EPI equation for non- Americans. Multiply eGFR by 1.16 for patients. Total Protein 7.0 6.3 - 8.2 g/dL 10/16/2020 13:31 [facility] Albumin 4.2 3.4 - 4.9 g/dL 10/16/2020 13:31 [facility] Alkaline Phosphatase 129(H) 38 - 126 U/L 10/16/2020 13:31 [facility] AST 81(H) 15 - 46 U/L 10/16/2020 13:31 [facility] ALT 126(H) <35 U/L 10/16/2020 13:31 [facility] Bilirubin, Total <0.5 <1.4 mg/dL 10/17/19 13:31 [facility] Calcium 9.2 8.5 - 10.5 mg/dL 10/16/2020 13:31 [facility] Calculated Calcium 9.0 8.5 - 10.5 mg/dL 10/16/2020 13:31 [facility] Magnesium 1.7 1.7 - 2.8 mg/dL 10/16/2020 13:31 [facility] Blood VENOUS BLOOD / Unknown Venipuncture / Unknown 10/16/2020 12:59 EDT 10/16/2020 13:03 EDT Teri Henry MD CHEMISTRY & BLOOD GA S ORDERABLES [facility] [address] [place] [address] * (ABNORMAL) COMPLETE BLOOD COUNT AND DIFF, CHEMO (09/25/2020 8:08 EDT) WBC 5.30 4.00 - 12.40 K/cmm 09/25/2020 8:47 [facility] RBC 4.83 3.86 - 5.04 M/cmm 09/25/2020 8:47 [facility] Hemoglobin 14.1 11.6 - 15.2 gm/dL 09/25/2020 8:47 [facility] HCT 40.5 34.9 - 44.4 % 09/25/2020 8:47 [facility] MCV 84 81 - 98 fl 09/25/2020 8:47 [facility] MCH 29.2 26.7 - 33.3 pg 09/25/2020 8:47 [facility] MCHC 34.8 32.1 - 35.9 gm/dL 09/25/2020 8:47 [facility] RDW-CV 14.4 <14.7 % 09/25/2020 8:47 [facility] RDW-SD 43.4 <50.4 fl 09/25/2020 8:47 [facility] PLT 186 141 - 377 K/[facility] 09/25/2020 8:47 [facility] MPV 9.3(L) 9.5 - 12.7 fl 09/25/2020 8:47 [facility] % Neutrophils 53.8 % 09/25/2020 8:47 [facility] Absolute Neutrophils 2.86 2.20 - 8.85 K/cmm 09/25/2020 8:47 [facility] Type of Differential: Auto 09/25/2020 8:47 [facility] Blood VENOUS BLOOD / Unknown Venipuncture / Unknown 09/25/2020 8:08 EDT 09/25/2020 8:32 EDT Teri Henry MD PACKAGES & DNA PROBE ORDERABLES [facility] [address] [place] [address] * (ABNORMAL) COMPREHENSIVE METABOLIC PANEL (ONCOLOGY USE ONLY-INC MG) (09/25/2020 8:08 EDT) Sodium 139 136 - 145 mEq/L 09/25/2020 8:54 [facility] Potassium 3.9 3.5 - 5.0 mEq/L 09/25/2020 8:54 [facility] Chloride 102 96 - 110 mEq/L 09/25/2020 8:54 [facility] CO2 Total 27 22 - 32 mEq/L 09/25/2020 8:54 [facility] Glucose 165(H) 70 - 100 mg/dL 09/25/2020 8:54 [facility] BUN 16 10 - 26 mg/dL 09/25/2020 8:54 [facility] Creatinine 0.40(L) 0.52 - 1.04 mg/dL 09/25/2020 8:54 [facility] eGFR 126 >60 mL/min/1.7 3m2 09/25/2020 8:54 [facility] Comment:eGFR calculated mata asif CKD-EPI equation for non- Americans. Multiply eGFR by 1.16 for patients. Total Protein 7.0 6.3 - 8.2 g/dL 09/25/2020 8:54 [facility] Albumin 4.2 3.4 - 4.9 g/dL 09/25/2020 8:54 [facility] Alkaline Phosphatase 140(H) 38 - 126 U/L 09/25/2020 8:54 [facility] AST 50(H) 15 - 46 U/L 09/25/2020 8:54 [facility] ALT 88(H) <35 U/L 09/25/2020 8:54 [facility] Bilirubin, Total <0.5 <1.4 mg/dL 09/26/19 8:54 [facility] Calcium 9.1 8.5 - 10.5 mg/dL 09/25/2020 8:54 [facility] Calculated Calcium 8.9 8.5 - 10.5 mg/dL 09/25/2020 8:54 [facility] Magnesium 1.7 1.7 - 2.8 mg/dL 09/25/2020 8:54 EDT [facility] Blood VENOUS BLOOD / Unknown Venipuncture / Unknown 09/25/2020 8:08 EDT 09/25/2020 8:32 EDT Teri Henry MD CHEMISTRY & BLOOD GA S ORDERABLES [facility] [address] [place] [address] * COMPLETE BLOOD COUNT AND DIFF, CHEMO (09/04/2020 7:49 EDT) WBC 7.75 4.00 - 12.40 K/cmm 09/04/2020 8:30 T [facility] RBC 4.96 3.86 - 5.04 M/cmm 09/04/2020 8:30 [facility] Hemoglobin 14.1 11.6 - 15.2 gm/dL 09/04/2020 8:30 [facility] HCT 42.1 34.9 - 44.4 % 09/04/2020 8:30 [facility] MCV 85 81 - 98 fl 09/04/2020 8:30 [facility] MCH 28.4 26.7 - 33.3 pg 09/04/2020 8:30 [facility] MCHC 33.5 32.1 - 35.9 gm/dL 09/04/2020 8:30 [facility] RDW-CV 13.5 <14.7 % 09/04/2020 8:30 [facility] RDW-SD 41.6 <50.4 fl 09/04/2020 8:30 [facility] PLT 196 141 - 377 K/cmm 09/04/2020 8:30 [facility] MPV 9.9 9.5 - 12.7 fl 09/04/2020 8:30 [facility] % Neutrophils 62.9 % 09/04/2020 8:30 [facility] Absolute Neutrophils 4.88 2.20 - 8.85 K/cmm 09/04/2020 8:30 [facility] Type of Differential: Auto 09/04/2020 8:30 [facility] Blood VENOUS BLOOD / Unknown Venipuncture / Unknown 09/04/2020 7:49 EDT 09/04/2020 8:03 EDT Teri Henry MD PACKAGES & DNA PROBE ORDERABLES [facility] [address] [place] [address] * (ABNORMAL) COMPREHENSIVE METABOLIC PANEL (ONCOLOGY USE ONLY-INC MG) (09/04/2020 7:49 EDT) Sodium 139 136 - 145 mEq/L 09/04/2020 8:23 [facility] Potassium 4.0 3.5 - 5.0 mEq/L 09/04/2020 8:23 [facility] Chloride 104 96 - 110 mEq/L 09/04/2020 8:23 [facility] CO2 Total 23 22 - 32 mEq/L 09/04/2020 8:23 [facility] Glucose 165(H) 70 - 100 mg/dL 09/04/2020 8:23 [facility] BUN 12 10 - 26 mg/dL 09/04/2020 8:23 [facility] Creatinine 0.41(L) 0.52 - 1.04 mg/dL 09/04/2020 8:23 [facility] eGFR 126 >60 mL/min/1.7 3m2 09/04/2020 8:23 [facility] Comment:eGFR calculated mata g CKD-EPI equation for non- Americans. Multiply eGFR by 1.16 for patients. Total Protein 7.2 6.3 - 8.2 g/dL 09/04/2020 8:23 [facility] Albumin 4.2 3.4 - 4.9 g/dL 09/04/2020 8:23 [facility] Alkaline Phosphatase 122 38 - 126 U/L 09/04/2020 8:23 [facility] AST 45 15 - 46 U/L 09/04/2020 8:23 [facility] ALT 85(H) <35 U/L 09/04/2020 8:23 [facility] Bilirubin, Total <0.5 <1.4 mg/dL 09/05/19 8:23 [facility] Calcium 8.8 8.5 - 10.5 mg/dL 09/04/2020 8:23 [facility] Calculated Calcium 8.6 8.5 - 10.5 mg/dL 09/04/2020 8:23 [facility] Magnesium 1.8 1.7 - 2.8 mg/dL 09/04/2020 8:23 [facility] Blood VENOUS BLOOD / Unknown Venipuncture / Unknown 09/04/2020 7:49 EDT 09/04/2020 8:03 EDT Teri Henry MD CHEMISTRY & BLOOD GA S ORDERABLES [facility] [address] [place] [address] * (ABNORMAL) COMPLETE BLOOD COUNT AND DIFF, CHEMO (08/13/2020 8:16 EDT) WBC 13.23(H) 4.00 - 12.40 K/cmm 08/13/2020 8:42 [facility] RBC 5.24(H) 3.86 - 5.04 M/cmm 08/13/2020 8:42 [facility] Hemoglobin 15.3(H) 11.6 - 15.2 gm/dL 08/13/2020 8:42 [facility] HCT 45.6(H) 34.9 - 44.4 % 08/13/2020 8:42 [facility] MCV 87 81 - 98 fl 08/13/2020 8:42 [facility] MCH 29.2 26.7 - 33.3 pg 08/13/2020 8:42 EDT [facility] MCHC 33.6 32.1 - 35.9 gm/dL 08/13/2020 8:42 T [facility] RDW-CV 13.1 <14.7 % 08/13/2020 8:42 [facility] RDW-SD 41.1 <50.4 fl 08/13/2020 8:42 [facility] PLT 295 141 - 377 K/cmm 08/13/2020 8:42 [facility] MPV 10.0 9.5 - 12.7 fl 08/13/2020 8:42 [facility] % Neutrophils 72.9 % 08/13/2020 8:42 [facility] Absolute Neutrophils 9.64(H) 2.20 - 8.85 K/cmm 08/13/2020 8:42 [facility] Type of Differential: Auto 08/13/2020 8:42 [facility] Blood VENOUS BLOOD / Unknown Venipuncture / Unknown 08/13/2020 8:16 EDT 08/13/2020 8:29 EDT Teri Henry MD PACKAGES & DNA PROBE ORDERABLES [facility] [address] [place] [address] * (ABNORMAL) COMPREHENSIVE METABOLIC PANEL (ONCOLOGY USE ONLY-INC MG) (08/13/2020 8:16 EDT) Sodium 138 136 - 145 mEq/L 08/13/2020 8:49 EDT [facility] Potassium 4.4 3.5 - 5.0 mEq/L 08/13/2020 8:49 [facility] Chloride 103 96 - 110 mEq/L 08/13/2020 8:49 [facility] CO2 Total 24 22 - 32 mEq/L 08/13/2020 8:49 [facility] Glucose 171(H) 70 - 100 mg/dL 08/13/2020 8:49 [facility] BUN 12 10 - 26 mg/dL 08/13/2020 8:49 [facility] Creatinine 0.40(L) 0.52 - 1.04 mg/dL 08/13/2020 8:49 [facility] eGFR 127 >60 mL/min/1.7 3m2 08/13/2020 8:49 [facility] Comment:eGFR calculated mata asif CKD-EPI equation for non- Americans. Multiply eGFR by 1.16 for patients. Total Protein 7.4 6.3 - 8.2 g/dL 08/13/2020 8:49 [facility] Albumin 4.3 3.4 - 4.9 g/dL 08/13/2020 8:49 [facility] Alkaline Phosphatase 128(H) 38 - 126 U/L 08/13/2020 8:49 [facility] AST 47(H) 15 - 46 U/L 08/13/2020 8:49 [facility] ALT 86(H) <35 U/L 08/13/2020 8:49 [facility] Bilirubin, Total <0.5 <1.4 mg/dL 08/14/19 8:49 [facility] Calcium 9.4 8.5 - 10.5 mg/dL 08/13/2020 8:49 [facility] Calculated Calcium 9.2 8.5 - 10.5 mg/dL 08/13/2020 8:49 [facility] Magnesium 1.8 1.7 - 2.8 mg/dL 08/13/2020 8:49 [facility] Blood VENOUS BLOOD / Unknown Venipuncture / Unknown 08/13/2020 8:16 EDT 08/13/2020 8:29 EDT Teri Henry MD CHEMISTRY & BLOOD GA S ORDERABLES [facility] [address] [place] [address] * EKG 12-LEAD (07/22/2020 9:50 EST) 07/22/2020 9:50 EST Narrative [facility] EKG - 01/26/2021 8:34 EDT ? [facility] ? Test Date: ?2020-07-22 Pat Name: ? AUSTIN ROMAN ? Department: ?? HEM/ONC ? Room: ? Gender: ? Female ? [employer] Process Operator: ?? ANTHONY : ?1975 ? Requested By: TERI HENRY MD Order Number: ?Reading MD: ?? MIHIR CROOK MD ? Measurements Intervals ?[place] ? Rate: ? 70 ? P: ?49 W[place]: ? 172 ?QRS: ?35 QRSD: ? 85 ? T: ?2 QT: ? 388 ? QTc: ?421 ? Interpretive Statements SINUS RHYTHM LOW QRS VOLTAGE IN PRECORDIAL LEADS NONSPECIFIC T-WAVE ABNORMALITY No previous ECG available for comparison I reviewed the tracing and have either agreed or edited the findings in this report. Electronically Signed On 01-26-2021 8:34:01 EDT by MIHIR CROOK MD. Procedure Note Mihir Crook MD - 01/26/2021 [facility] Test Date: 2020-07-22 Pat Name: AUSTIN ROMAN Department: HEM/ONC Room: Gender: Female [employer] Operator: ANTHONY : 1975 Requested By: TERI HENRY MD Order Number: Reading MD: MIHIR CROOK MD Measurements Intervals [place] Rate: 70 P: 49 WY: 172 QRS: 35 QRSD: 85 T: 2 QT: 388 QTc: 421 Interpretive Statements SINUS RHYTHM LOW QRS VOLTAGE IN PRECORDIAL LEADS NONSPECIFIC T-WAVE ABNORMALITY No previous ECG available for comparison I reviewed the tracing and have either agreed or edited the findings inthis report. Electronically Signed On 01-26-2021 8:34:01 EDT by MIHIR DICKSON. Teri Henry MD CARDIAC ECG ORDERABL ES [facility] EKG * (ABNORMAL) COMPLETE BLOOD COUNT AND DIFF, CHEMO (07/22/2020 7:56 EST) WBC 8.35 4.00 - 12.40 K/cmm 07/22/2020 8:23 [facility] RBC 5.23(H) 3.86 - 5.04 M/cmm 07/22/2020 8:23 [facility] Hemoglobin 14.9 11.6 - 15.2 gm/dL 07/22/2020 8:23 [facility] HCT 45.4(H) 34.9 - 44.4 % 07/22/2020 8:23 [facility] MCV 87 81 - 98 fl 07/22/2020 8:23 [facility] MCH 28.5 26.7 - 33.3 pg 07/22/2020 8:23 [facility] MCHC 32.8 32.1 - 35.9 gm/dL 07/22/2020 8:23 [facility] RDW-CV 12.9 <14.7 % 07/22/2020 8:23 [facility] RDW-SD 40.5 <50.4 fl 07/22/2020 8:23 [facility] PLT 297 141 - 377 K/cmm 07/22/2020 8:23 [facility] MPV 9.9 9.5 - 12.7 fl 07/22/2020 8:23 [facility] % Neutrophils 67.9 % 07/22/2020 8:23 [facility] Absolute Neutrophils 5.67 2.20 - 8.85 K/cmm 07/22/2020 8:23 [facility] Type of Differential: Auto 07/22/2020 8:23 [facility] Blood VENOUS BLOOD / Unknown Venipuncture / Unknown 07/22/2020 7:56 EST 07/22/2020 8:11 EST Teri Henry MD PACKAGES & DNA PROBE ORDERABLES [facility] [address] [place] [address] * (ABNORMAL) COMPREHENSIVE METABOLIC PANEL (ONCOLOGY USE ONLY-INC MG) (07/22/2020 7:56 [facility]) Sodium 140 136 - 145 mEq/L 07/22/2020 8:32 [facility] Potassium 4.4 3.5 - 5.0 mEq/L 07/22/2020 8:32 [facility] Chloride 105 96 - 110 mEq/L 07/22/2020 8:32 [facility] CO2 Total 23 22 - 32 mEq/L 07/22/2020 8:32 [facility] Glucose 132(H) 70 - 100 mg/dL 07/22/2020 8:32 [facility] BUN 12 10 - 26 mg/dL 07/22/2020 8:32 [facility] Creatinine 0.51(L) 0.52 - 1.04 mg/dL 07/22/2020 8:32 [facility] eGFR 117 >60 mL/min/1.7 3m2 07/22/2020 8:32 [facility] Comment:eGFR calculated mata asif CKD-EPI equation for non- Americans. Multiply eGFR by 1.16 for patients. Total Protein 7.2 6.3 - 8.2 g/dL 07/22/2020 8:32 [facility] Albumin 4.3 3.4 - 4.9 g/dL 07/22/2020 8:32 [facility] Alkaline Phosphatase 113 38 - 126 U/L 07/22/2020 8:32 [facility] AST 80(H) 15 - 46 U/L 07/22/2020 8:32 [facility] ALT 114(H) <35 U/L 07/22/2020 8:32 [facility] Bilirubin, Total <0.5 <1.4 mg/dL 07/23/19 8:32 [facility] Calcium 9.4 8.5 - 10.5 mg/dL 07/22/2020 8:32 [facility] Calculated Calcium 9.2 8.5 - 10.5 mg/dL 07/22/2020 8:32 [facility] Magnesium 1.9 1.7 - 2.8 mg/dL 07/22/2020 8:32 EST [facility] Blood VENOUS BLOOD / Unknown Venipuncture / Unknown 07/22/2020 7:56 EST 07/22/2020 8:11 EST Teri Henry MD CHEMISTRY & BLOOD GA S ORDERABLES [facility] [address] [place] [address] documented in this encounter Visit Diagnoses Diagnosis [...] 6), intravenous, NOW X1, 1 dose, On Tue07/22/20 at 1300, Administer over 30 Minutes New Bag 07/22/2020 14:00 EST 900 mg IV dexAMETHasone (DECADRON) 12 mg in sodium chloride (NS) 0.9 % 50 mL IVPB 12 mg, intravenous, Administer over 30 Minutes, NOW X1, 1 dose, On Tue07/22/20 at 0915, Routine New Bag 07/22/2020 9:45 EST 12 mg diphenhydrAMINE (BENADRYL) 50 mg in sodium chloride (NS) 0.9 % 50 mL IVPB 50 mg, intravenous, Administer over 15 Minutes, NOW X1, 1 dose, On Tue07/22/20 at 0915, Routine New Bag 07/22/2020 10:00 EST 50 mg famotidine (PEPCID) injection 20 mg 20 mg, intravenous, NOW X1, 1 dose, On Tue07/22/20 at 0915, Routine Given 07/22/2020 9:41 EST 20 mg fosaprepitant (EMEND) 150 mg in sodium chloride (NS) 0.9 % 150 mL infusion 150 mg, intravenous, Administer over 30 Minutes, NOW X1, 1 dose, On Tue07/22/20 at 0915, Routine New Bag 07/22/2020 10:15 EST 150 mg LORazepam (ATIVAN) tablet 1 mg 1 mg, oral, EVERY 6 HOURS PRN, Starting on Tue07/22/20 at 1010, Until Tue07/25/20 at 0206, nausea / vomiting, Routine Given 07/22/2020 11:34 EST 1 mg PACLitaxel (TAXOL) 347 mg in sodium chloride (NS) 0.9 % 500 mL chemo infusion 347 mg (rounded from 346.5 mg = 175 mg/m2 ? 1.98 m2 Treatment Plan BSA from Recorded weight), intravenous, NOW X1, 1 dose, On Tue07/22/20 at 1015, Administer over 3 Hours New Bag 07/22/2020 10:50 EST 347 mg palonosetron (ALOXI) injection 0.25 mg 0.25 mg, intravenous, NOW X1, 1 dose, On Tue07/22/20 at 0915, Routine Given 07/22/2020 9:40 EST 0.25 mg sodium chloride 0.9 % (NS) infusion at 100 mL/hr, 250 mL, intravenous, CONTINUOUS, Starting on Tue07/22/20 at 0915, Until Tue07/23/20 at 0929, Routine New Bag 07/22/2020 9:30 EST 250 mL 100 mL/hr documented in this encounter Orders Medications Ordered That Juanito ht Not Have Been Administered Count Last Ordered Date First Ordered Date diphenhydrAMINE (BENADRYL) injection 50 mg 1 07/22/2020 EPINEPHrine (ADRENALIN) injection 0.3 mg 1 07/22/2020 methylPREDNISolone sod suc(P F) (SOLU-MEDROL) injection 100 mg 1 07/22/2020 Appointment Requests Count Last Ordered Date Fi rst Ordered Date ONCBCN INFUSION APPOINTMENT REQUEST 1 07/22 documented in this encounter Care Teams System Sales Consultant Relationship Specialty Start Date End Date Batsheva Lira FNP [address] [phone] PCP - General 02/19/20 07/21/22 documented as of this encounter
--- OUTSIDE RECORDS SUMMARY | 2023-12-10 17:45 | XMS_ITS | Encounter Summary ---
Author Organization [facility] Address [address] [place] [address] Care Team Providers Care Assistant Refinery Operator Name Role Phone Batsheva Lira JOHN Primary Care Provider [phone] Reason for Referral * Radiology Services (Routine) - Closed Specialty Diagnoses / Procedures Referred By Contac t Referred To Contact Diagnoses Malignant neoplasm of left breast in female, estrogen receptor negative, unspecified site of breast ([facility]) Procedures IR CHEST PORT 5 [place]RS [place] [address] [place] [id number] Referral ID Status Reason Start Date Expiration Date Visits Re quested Visits Authorized [id number] Closed 07/15/2020 1 1 * Cardiology (Routine) - Closed Specialty Diagnoses / Procedures Referred By Contac t Referred To Contact Diagnoses Malignant neoplasm of left breast in female, estrogen receptor negative, unspecified site of breast ([facility]) Procedures TRANSTHORACIC ECHO (TTE) [place] [address] [place] [address] Referral ID Status Reason Start Date Expiration Date Visits Re quested Visits Authorized [id number] Closed 07/15/2020 1 1 Reason for Visit * Reason Comments New Patient Visit Encounter Details Date Type Department Care Team (Latest Contact Info) Description 07/15/2020 10:30 EST Multidisciplinary [facility] Cancer Center Hematology & Oncology - [facility] [address] [place] [address] [place] [address] [place] [address] Malignant neoplasm of left breast in female, [...] 9:04 EST documented as of this encounter Last Filed Vital Signs Vital Sign Reading Time Taken Comments Blood Pressure 150/83 07/15/2020 0917 EST Pulse 99 07/15/2020 0917 EST Temperature 35.7 ??C (96.3 ??F) 07/15/2020 0917 EST Respiratory Rate 12 07/15/2020 0917 EST Oxygen Saturation - - Inhaled Oxygen Concentration - - Weight 84.6 kg (186 lb 9.6 oz) 07/15/[address] Height 166.6 cm (5' 5.59) 07/15/2020 0917 EST Body Mass Index 30.49 07/15/2020 0917 EST documented in this encounter Functional Status [...] Progress Notes * Queenie Conde MD - 07/15/2020 1030 EST REASON FOR OFFICE VISIT Austin is a 44-year-old female here to discuss options for her newly identified breast cancer HISTORY OF PRESENT ILLNESS: Austin's college and career counselor noticed a mass in 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 SUBJECTIVE: Austin has felt well although anxious at the time of her diagnosis. She does have some ongoing systemic symptoms of fatigue over the winter, some diarrhea about half of the time for the last couple ofmonths this has increased. She does have issues with urinary incontinence and was actually scheduled for some surgery. She does have some anxiety and is on Lexapro with good results. She has occasional headaches over the last week likely related to anxiety. ROS: There are no additional new constitutional, cardiovascular, pulmonary, GI, ,GENETIC PHYSICIAN, musculoskeletal, psychiatric, neurologic, endocrine, or heme symptoms. PAST MEDICAL HISTORY: 1. Urinary incontinence 2. Hypertension, well-controlled 3. History of kidney stones, none for the past 6 years 4. Cholecystectomy in 2018 MEDS Mirena IUD, Lexapro, oxybutynin MENSTRUAL HISTORY:Austin is unclear when she began menstruating. She is G3, P3 with her first full-term at age 23. She is premenopausal. She did take oral contraceptives and recently had an IUD IUD placed (Mirena IUD). 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 She does smoke off and on about half a pack per day. She does not consume alcohol. FAMILY HISTORY: Austin has 2 daughters and a son who range in age from 9-21. Austin has no full siblings. She has 4 paternal half siblings including 3 brothers and a sister. ?? Melissa maternal family history includes her mother who was diagnosed with lung cancer at the age of54 and at the age of 56 from metastatic disease. She was a smoker. All of her mother's family lives in [place] and Austin has no information about the health of these relatives. ?? Melissa paternal family history includes her father who is 64 and relatively healthy for his age. Her father has 5 full brothers and 5 full sisters. He also has 2 paternal half-brothers. One of his full brothers of liver cancer in his 50s. Melissa paternal grandfather was diagnosed with leukemiain his 80s and in his 90s. Her paternal relatives are of [place] descent. Objective: BP (!) 150/83 Pulse 99 Temp 35.7 ??C (96.3 ??F) (Tympanic) Resp 12 Ht 166.6 cm (65.59) Wt 84.6 kg (186 lb 9.6 oz) LMP 07/03/2020 BMI 30.49 kg/m?? General: Comfortable, cooperative and in no [...] or edema; No calf tenderness BREAST EXAM: Right breast is intact without dominant or discrete masses. Left breast shows a prominent mass in the upper inner quadrant approximately 2 to 2- 1/2 cm. ASSESSMENT: This is a 44-year old female with recently diagnosed triple negative breast cancer (clinical T2N0).We discussed her case in our preconference and agreed on a neoadjuvant approach which given the size of her mass I do think is reasonable. She does have some systemic symptoms of nausea fatigue and given the location of her tumor it is reasonable to perform a staging evaluation with CT scan and bone scan. We talked about the option of neoadjuvant chemotherapy and the likelihood that if we instituted this we would eradicate all disease at the time of surgery. We reviewed the side effects of chemotherapy, both the long and short-term side effects. We reviewed the drugs in this regimen and the timing of the regimen. PLAN: 1. Austin will meet with Dr. Morales today to discuss her surgical options 2. We will plan on initiating chemotherapy per the SIKOV regimen next week at the earliest. This will include Taxol 175mg/m?? and carboplatinum at AUC of 6 every 3 weeks for 4 cycles. This will be followed by 4 cycles of Adriamycin and Cytoxan every 2 weeks. All of this will be done with growth factor support. 3. I agree with staging for Austin given her vague symptoms and the location of her tumor. This has been scheduled for July 18 and will include a CT scan of her chest abdomen pelvis and a bonescan. 4. Austin will also be scheduled for a port and an echo neither of which needs to be done prior to the initiation of chemotherapy 5. Austin will be meeting with Richi Antunez later this week for further chemotherapy teaching 6. Austin will be scheduled to meet with Dr. Morales after 4 cycles of carboplatinum and Taxol (in the middle of chemotherapy. Queenie Conde MD documented in this encounter Plan of Treatment Upcoming Encounters Date Type Department Care Team (Late st Contact Info) Description 01/31/2024 13:40 EDT Office Visit [facility] Surgical Oncology - [address] [address] Maeve Morales DO [address] [place] [address], [address] [place] [phone] documented as of this encounter Results * TRANSTHORACIC ECHO (TTE) [...] color Doppler.The study was interpreted by [facility]iology. Pertinent images and [...] Queenie Conde MD CARDIAC ECHO ORDERAB LES * IR CHEST PORT 5 YRS OR [...] (HCC-CMS) Fitting and adjustment of vascular catheter Malignant neoplasm of left breast in female, estrogen receptor negative, unspecified site of breast (HCC-CMS) documented in this encounter Care Teams Assistant Refinery Operator Relationship Specialty Start Date End Date Batsheva Lira FNP [address] [phone] PCP - General 02/19/20 07/21/22 documented as of this encounter
--- OUTSIDE RECORDS SUMMARY | 2023-12-10 17:45 | XMS_ITS | Encounter Summary ---
Author Organization [facility] Address [address] [place] [address] Care Team Providers Care Pourer Bull Ladle Name Role Phone Batsheva Lira JOHN Primary Care Provider [phone] Reason for Visit * Reason Onset Date Comments Social Work 07/18/2020 financial Encounter Details Date Type Department Care Team (Late st Contact Info) Description 07/18/2020 Telephone [facility] Cancer Center Hematology & Oncology - [facility] [address] [place], [place] [id number] Veronique Dye Social Work (financial) Social History [...] have Coronavirus / COVID-19? No / Unsure 07/16/2020 10:55 EST documented as of this encounter Functional [...] * Telephone Encounter - Veronique Dye - 07/18/2020 0820 EST Pt sent PN some bills for the cancer grants. Plan- [facility] help with a wig and Angel Ng to help pay towards her household bills. Pt is concerned about finances. PN and her social worker assistant will work with her to help with any resources that are available to her. documented in this encounter Plan of Treatment Upcoming Encounters Date Type Department Care Team (Late st Contact Info) Description 01/31/2024 13:40 EDT Office Visit [facility] Surgical Oncology - [address] [address] Maeve Morales, DO [address] [facility], [address] [place] [address] documented as of this encounter Visit Diagnoses Not on filedocumented in this encounter Care Teams Pourer Bull Ladle Relationship Specialty Start Date End Date Batsheva Lira FNP [address] [phone] PCP - General 02/19/20 07/21/22 documented as of this encounter
--- OUTSIDE RECORDS SUMMARY | 2023-12-10 17:45 | XMS_ITS | Encounter Summary ---
Author Organization [facility] Address [address] [place] [address] Care Team Providers Care Telecom Specialist Name Role Phone Batsheva Lira JOHN Primary Care Provider [phone] Reason for Visit * Reason Onset Date Comments Follow-up 07/18/2020 Encounter Details Date Type Department Care Team (Late st Contact Info) Description 07/18/2020 Telephone [facility] Surgical Oncology - [facility] [address] [place], [place] [id number] eKnia Cline, RADHA Follow-up Social History Tobacco Use Types Packs/Day [...] Telephone Encounter - Kenia Cline RN - 07/18/2020 1501 EST Follow up call placed to patient after reviewing imaging with Dr. Morales. Made aware imaging was negative for metastatic disease. Will proceed as scheduled. Patient is due for chemotherapy on 07/22/20. documented in this encounter Plan of Treatment Upcoming Encounters Date Type Department Care Team (Late st Contact Info) Description 01/31/2024 13:40 EDT Office Visit [facility] Surgical Oncology - [address] [address] Maeve Morales, [address] [facility], [address] [place] [phone] documented as of this encounter Visit Diagnoses Not on filedocumented in this encounter Care Teams Telecom Specialist Relationship Specialty Start Date End Date Batsheva Lira FNP [address] [phone] PCP - General 02/19/20 07/21/22 documented as of this encounter
--- OUTSIDE RECORDS SUMMARY | 2023-12-10 17:45 | XMS_ITS | Encounter Summary ---
Author Organization [facility] Address [address] [place] [address] Care Team Providers Care X Ray Technologist Name Role Phone Batsheva Lira JOHN Primary Care Provider [phone] Reason for Referral * Radiology Services (Routine) - Closed Specialty Diagnoses / Procedures Referred By Jen gonzáles Referred To Contact Diagnoses Malignant neoplasm of left breast in female, estrogen receptor negative, unspecified site of breast (HCC-CMS) Procedures US BREAST COMPLETE RIGHT US BREAST DIAGNOSTIC Maeve Morales DO [address] [facility] [address] Referral ID Status Reason Start Date Expiration Date Visits Re quested Visits Authorized [id number] Closed 07/15/2020 1 1 Encounter Details Date Type Department Care Team (Late st Contact Info) Description 07/15/2020 Orders Only [facility] Surgical Oncology - [facility] [address] [place], [place] [phone] Kenia Cline, RADHA Malignant neoplasm of left breast in female, [...] [facility] Surgical Oncology - [address] [id number] Maeve Morales, DO [address] [place] [address], [facility] 2 [phone] documented as of this encounter Results * US BREAST COMPLETE RIGHT (07/16/2020 11:27 EST) Anatomical Region Laterality Modality Breast Right Ultrasound 07/16/2020 12:0 0 EST Impressions 07/16/2020 12:00 EST Right breast: BI-RADS Category Assessment 1: Negative findings. Recommendation: Continued annual screening mammography. The patient will be undergoing neoadjuvant chemotherapy for a newly diagnosed left breast cancer. Follow-up as needed. Results and recommendations were discussed with the patient by the dinkey dispatcher at the time of the exam. The patient will be notified of her breast imaging results via a lay letter from radiology. Radiology will contact the patient directly regarding any findings which require additional imaging (Category 0) at this time. Overall assessment negative Narrative 07/16/2020 12:00 EST US BREAST COMPLETE RIGHT ??07/16/2020 11:00 AM Signs and Symptoms/Comments: ?? new TNBC, left side; need right complete US comparisons: Recent breast diagnostic workup in June 2020. TECHNIQUE: Whole right breast ultrasound including subareolar region, 4 quadrants and axilla. FINDINGS: There is no solid or cystic abnormality in no suspicious mass or adenopathy. Maeve Morales DO IMG US ORDERABLES documented in this encounter Visit Diagnoses Diagnosis Malignant neoplasm of left breast in female, estrogen receptor negative, unspecified site of breast (HCC-CMS)- Primary Malignant neoplasm of left breast in female, estrogen receptor negative, unspecified site of breast (HCC-CMS) documented in this encounter Care Teams X Ray Technologist Relationship Specialty Start Date End Date Batsheva Lira FNP [address] [phone] PCP - General 02/19/20 07/21/22 documented as of this encounter
--- OUTSIDE RECORDS SUMMARY | 2023-12-10 17:45 | XMS_ITS | Encounter Summary ---
Author Organization [facility] Address [address] [place] [address] Care Team Providers Care Liaison Engineer Name Role Phone Batsheva Lira JOHN Primary Care Provider [phone] Reason for Visit * Reason Onset Date Comments Appointment Related 07/11/2020 fcp Encounter Details Date Type Department Care Team (Late st Contact Info) Description 07/11/2020 Telephone [facility] Cancer Center Hematology & Oncology - [address] [phone] Fcp, Provider, Appointment Related (fcp) Social History Tobacco Use Types Packs/Day Years [...] have Coronavirus / COVID-19? No / Unsure 07/09/2020 10:19 EST documented as of this encounter Miscellaneous Notes * Telephone Encounter - Ashtyn Burns - 07/11/2020 1528 EST Called and spoke with patient whom accepted a zoom with WM on 07.14.20 at 12:00 pm. Sending Zoom invite documented in this encounter Plan of Treatment Upcoming Encounters Date Type Department Care Team (Late st Contact Info) Description 01/31/2024 13:40 EDT Office Visit [facility] Surgical Oncology - [address] [phone] Maeve Morales, DO [address] [facility], [address] [place] [phone] documented as of this encounter Visit Diagnoses Not on filedocumented in this encounter Care Teams Liaison Engineer Relationship Specialty Start Date End Date Batsheva Lira FNP [address] [phone] PCP - General 02/19/20 07/21/22 documented as of this encounter
--- OUTSIDE RECORDS SUMMARY | 2023-12-10 17:45 | XMS_ITS | Encounter Summary ---
Author Organization [facility] Address [address] [place] [address] Care Team Providers Care Manager Culinary Name Role Phone Batsheva Lira JOHN Primary Care Provider [phone] Reason for Visit * Reason Onset Date Comments Other 07/17/2020 Encounter Details Date Type Department Care Team (Late st Contact Info) Description 07/17/2020 Telephone [facility] Cancer Center Hematology & Oncology - [facility] [address] [place], [place] [phone] Ene Garrett CCLS Other Social History Tobacco Use Types [...] encounter Miscellaneous Notes * Telephone Encounter - Ene Garrett CCLS - 07/17/2020 1224 EST A Child Life referral was made by Veronique Dye to introduce supportive services and resources to Austin, in the context of parenting a 9 yo (Lan) following the recent breast cancer diagnosis. The topics below were discussed. Handouts and community resources were emailed to Austin. Will follow up with additional needs, as they arise. -How are you processing and coping? (Parenting When You're a Patient) -What do the children know? -How are the children processing and coping? Any noted behavioral changes? -What are the children's current coping strategies/skills? -Resources offered: Books, Handouts, 1 on 1 sessions, Support Groups, Community Resources I have also submitted two applications on Austin's behalf to Michelle Monteiro ([employer], [employer]gent Child [employer]eds Fund -- pending acceptance). Austin has my email and knows she can reach out for support as needed. Ene Garrett MS, CCLS Pager [phone] documented in this encounter Plan of Treatment Upcoming Encounters Date Type Department Care Team (Late st Contact Info) Description 01/31/2024 13:40 EDT Office Visit [facility] Surgical Oncology - [address] [address] Maeve Morales, DO 111 [facility], [address] [place] [address] documented as of this encounter Visit Diagnoses Not on filedocumented in this encounter Care Teams Manager Culinary Relationship Specialty Start Date End Date Batsheva Lira FNP [address] [phone] PCP - General 02/19/20 07/21/22 documented as of this encounter
--- OUTSIDE RECORDS SUMMARY | 2023-12-10 17:45 | XMS_ITS | Encounter Summary ---
Author Organization [facility] Address [address] [place] [address] Care Team Providers Care Head Porter Baggage Name Role Phone Batsheva Lira JOHN Primary Care Provider [phone] Reason for Visit * Reason Onset Date Comments Social Work 07/16/2020 wig/SW referral Encounter Details Date Type Department Care Team (Late st Contact Info) Description 07/16/[address] [facility] Cancer Center Hematology & Oncology - Main [place] [address] [place], [place] [id number] Veronique Dye Social Work (wig/SW referral) Social History Tobacco Use Types Packs/Day Years [...] * Telephone Encounter - Veronique Dye - 07/16/2020 0842 EST PN emailed pt a list of wig options (salons and online) including information about HAP assistance with a wig purchase from [facility]. PN provided steps for each option and directed pt to connect with me should she decided to use HAP. Plan- Pt will likely start chemotherapy next week. PN submitted a referral to as she has financial concerns. Available as needed to help with getting a wig and transportation, if needed. documented in this encounter Plan of Treatment Upcoming Encounters Date Type Department Care Team (Late st Contact Info) Description 01/31/2024 13:40 EDT Office Visit [facility] Surgical Oncology - [address] [address] Maeve Morales, DO 111 [facility], Level [address] [place] [phone] documented as of this encounter Visit Diagnoses Not on filedocumented in this encounter Care Teams Head Porter Baggage Relationship Specialty Start Date End Date Batsheva Lira FNP [address] [phone] PCP - General 02/19/20 07/21/22 documented as of this encounter
--- OUTSIDE RECORDS SUMMARY | 2023-12-10 17:45 | XMS_ITS | Encounter Summary ---
Author Organization [facility] Address [address] [place] [address] Care Team Providers Care Reinforcing Steel Worker Wire Mesh Name Role Phone Batsheva Lira JOHN Primary Care Provider [phone] Encounter Details Date Type Department Care Team (Latest Contact Info) Description 07/15/2020 Travel Social History Tobacco Use Types Packs/Day [...] Info) Description 01/31/2024 13:40 EDT Office Visit [facility] Surgical Oncology - [facility] [address] [place] [address] Maeve Morales, 111 [facility], [facility], [address] [place] [phone] documented as of this encounter Visit Diagnoses Not on filedocumented in this encounter Care Teams Reinforcing Steel Worker Wire Mesh Relationship Specialty Start Date End Date Batsheva Lira FNP [address] [phone] PCP - General 02/19/20 07/21/22 documented as of this encounter
--- OUTSIDE RECORDS SUMMARY | 2023-12-10 17:45 | XMS_ITS | Encounter Summary ---
Author Organization [facility] Address [address] [place] [address] Care Team Providers Care Intermodal Truck Driver Name Role Phone Batsheva Lira JOHN Primary Care Provider [phone] Reason for Visit * Radiology Services (Routine) - Closed Specialty Diagnoses / Procedures Referred By Jen gonzáles Referred To Contact Nuclear Medicine Diagnoses Malignant neoplasm of left breast in female, estrogen receptor negative, unspecified site of breast (HCC-CMS) Procedures NM BONE WHOLE BODY Vargas Marvin MD 111 [facility] 2 [place] [address] Referral ID Status Reason Start Date Expiration Date Visits Re quested Visits Authorized [id number] Closed 07/15/2020 1 1 Encounter Details Date Type Department Care Team (Latest Contact Info) Description 07/18/2020 9:24 EST - 07/18/2020 9:25 EST Hospital Encounter [facility] Radiology Nuclear Medicine and PET - [facility] [address] [place] [address] Discharge Disposition: Home or Self Care Social [...] daily. 11/27/2020 documented as of this encounter Discharge Disposition Disposition Code Departure Means Destination Home or Self Care documented in this encounter Plan of Treatment Upcoming Encounters Date Type Department Care Team (Late st Contact Info) Description 01/31/2024 13:40 EDT Office Visit [facility] Surgical Oncology - [address] [address] Andrew Maeve Bao, DO 111 [facility], [facility], [address] [place] [address] documented as of this encounter Procedures Procedure Name Priority Date/Time Associated Diagnosis Comments NM BONE WHOLE BODY Routine 07/18/2020 13 :17 EST Malignant neoplasm of left breast in female, estrogen receptor negative, unspecified site of breast (HCC-CMS) documented in this encounter Results * NM BONE WHOLE BODY (07/18/2020 13:17 EST) Anatomical Region Laterality Modality Nuclear Medicine 07/18/2020 14:1 3 EST Impressions 07/18/2020 14:13 EST Focus of increased radiotracer uptake within the anterolateral left seventh rib with an underlying area of sclerosis on CT from the same date. These findings are favored to represent a nondisplaced healing rib fracture given the history of recent falls. This single focus of uptake is unlikely to represent a solitary osseous metastasis. I have personally reviewed the images and the above interpretation and agree with the findings. Narrative 07/18/2020 14:13 EST NM BONE WHOLE BODY ??07/18/2020 12:45 PM Signs and Symptoms: ??New diagnosis of triple negative left-sided breast cancer. Staging prior to starting therapy. Rule out bone metastases. Comparison: CT chest abdomen and pelvis from the same date. CT of the cervical spine from June 19, 2020 Technique: Approximately two hours after the IV injection of 18 mCi Tc-99m MDP, anterior and posterior whole body bone images were obtained. Findings: There is a focus of increased radiotracer uptake within the anterolateral seventh left rib. There is an underlying area of sclerosis on the CT from the same date. These findings are favored to represent a healing, nondisplaced rib fracture, unlikely an isolated metastatic lesion. Increased radiotracer uptake within the right L5 level, which corresponds to degenerative facet disease in the right L5-S1 facet joint. Minimal degenerative uptake within the cervical spine which corresponds to degenerative facet and discogenic degenerative change on CT from 5 weeks prior. The kidneys are normally positioned and demonstrate symmetric excretion. There has been normal clearance of radiotracer from the soft tissues. Procedure Note Ike Montero MD - 07/18/2020 NM BONE WHOLE BODY 07/18/2020 12:45 PM Signs and Symptoms: New diagnosis of triple negative left-sided breastcancer. Staging prior to starting therapy. Rule out bone metastases. Comparison: CT chest abdomen and pelvis from the same date. CT of thecervical spine from June 19, 2020 Technique: Approximately two hours after the IV injection of 18 mCi Tc-99m MDP,anterior and posterior whole body bone images were obtained. Findings: There is a focus of increased radiotracer uptake within the anterolateralseventh left rib. There is an underlying area of sclerosis on the CT fromthe same date. These findings are favored to represent a healing,nondisplaced rib fracture, unlikely an isolated metastatic lesion. Increased radiotracer uptake within the right L5 level, which correspondsto degenerative facet disease in the right L5-S1 facet joint. Minimaldegenerative uptake within the cervical spine which corresponds todegenerative facet and discogenic degenerative change on CT from 5 weeksprior. The kidneys are normally positioned and demonstrate symmetric excretion.There has been normal clearance of radiotracer from the soft tissues. IMPRESSION Focus of increased radiotracer uptake within the anterolateral leftseventh rib with an underlying area of sclerosis on CT from the same date.These findings are favored to represent a nondisplaced healing ribfracture given the history of recent falls. This single focus of uptake isunlikely to represent a solitary osseous metastasis. I have personally reviewed the images and the above interpretation andagree with the findings. Vargas Marvin MD G NM ORDERABLES documented in this encounter Visit Diagnoses Not on filedocumented in this encounter Care Teams Intermodal Truck Driver Relationship Specialty Start Date End Date Batsheva Lira FNP [address] [phone] PCP - General 02/19/20 07/21/22 documented as of this encounter
--- OUTSIDE RECORDS SUMMARY | 2023-12-10 17:45 | XMS_ITS | Encounter Summary ---
Author Organization [facility] Address [address] [place] [address] Care Team Providers Care Port Drier Name Role Phone Batsheva Lira JOHN Primary Care Provider [phone] Encounter Details Date Type Department Care Team (Late st Contact Info) Description 07/16/2020 Documentation Visit [facility] Cancer Center Hematology & Oncology - [address] [address] Lolly Antunez, RADHA Social History Tobacco Use Types Packs/Day [...] [facility] Surgical Oncology - [address] [address] Maeve Morales, 111 [facility], [address] [place] [phone] documented as of this encounter Visit Diagnoses Not on filedocumented in this encounter Care Teams Port Drier Relationship Specialty Start Date End Date Batsheva Lira FNP [address] [phone] PCP - General 02/19/20 07/21/22 documented as of this encounter
--- OUTSIDE RECORDS SUMMARY | 2023-12-10 17:45 | XMS_ITS | Encounter Summary ---
Author Organization [facility] Address [address] [place] [address] Care Team Providers Care Web Programmer Name Role Phone Batsheva Lira JOHN Primary Care Provider Reason for Visit * Reason Onset Date Comments Follow-up 07/17/2020 Encounter Details Date Type Department Care Team (Late st Contact Info) Description 07/17/2020 Telephone [facility] Surgical Oncology - Main [place] [address] [place], [place] [phone] Kenia Cline, RADHA Follow-up Social History Tobacco Use [...] Telephone Encounter - Kenia Cline RN - 07/17/2020 0938 EST Call placed to patient after reviewing US of Right breast. Made aware this is negative for any malignancy. Will follow up after staging is completed, scheduled for 07/18. Patient aware policy writer to call Tuesday to review CT and bone scan. documented in this encounter Plan of Treatment Upcoming Encounters Date Type Department Care Team (Late st Contact Info) Description 01/31/2024 13:40 EDT Office Visit [facility] Surgical Oncology - [address] [phone] Maeve Morales, DO 111 [facility], [address] [place] [phone] documented as of this encounter Visit Diagnoses Not on filedocumented in this encounter Care Teams Web Programmer Relationship Specialty Start Date End Date Batsheva Lira FNP [address] [phone] PCP - General 02/19/20 07/21/22 documented as of this encounter
--- OUTSIDE RECORDS SUMMARY | 2023-12-10 17:45 | XMS_ITS | Encounter Summary ---
Author Organization [facility] Address [address] [place] [address] Care Team Providers Care Packing Machine Inspector Name Role Phone Batsheva Lira JOHN Primary Care Provider [phone] Encounter Details Date Type Department Care Team (Latest Contact Info) Description 07/16/2020 Travel Social History Tobacco Use Types Packs/Day [...] Info) Description 01/31/2024 13:40 EDT Office Visit [facility] Surgical Oncology - [facility] [address] [place] [address] Maeve Morales, 111 [facility], [facility], Level [address] [place] [phone] documented as of this encounter Visit Diagnoses Not on filedocumented in this encounter Care Teams Packing Machine Inspector Relationship Specialty Start Date End Date Batsheva Lira FNP [address] [phone] PCP - General 02/19/20 07/21/22 documented as of this encounter
--- OUTSIDE RECORDS SUMMARY | 2023-12-10 17:45 | XMS_ITS | Encounter Summary ---
Author Organization [facility] Address [address] [place] [address] Care Team Providers Care Bed Worker Name Role Phone Batsheva Lira JOHN Primary Care Provider [phone] Reason for Referral * Radiology Services (Routine) - Closed Specialty Diagnoses / Procedures Referred By Contac t Referred To Contact Diagnoses Malignant neoplasm of left breast in female, estrogen receptor negative, unspecified site of breast (HCC-CMS) Procedures CT ABDOMEN PELVIS W CONTRAST Vargas Marvin MD [address] [place] [phone] Referral ID Status Reason Start Date Expiration Date Visits Re quested Visits Authorized [id number] Closed 07/15/2020 1 1 * Radiology Services (Routine) - Closed Specialty Diagnoses / Procedures Referred By Contac t Referred To Contact Nuclear Medicine Diagnoses Malignant neoplasm of left breast in female, estrogen receptor negative, unspecified site of breast (HCC-CMS) Procedures NM BONE WHOLE BODY Vargas Marvin MD [address] [place] [phone] Referral ID Status Reason Start Date Expiration Date Visits Re quested Visits Authorized [id number] Closed 07/15/2020 1 1 * Radiology Services (Routine) - Closed Specialty Diagnoses / Procedures Referred By Contsharlene t Referred To Contact Diagnoses Malignant neoplasm of left breast in female, estrogen receptor negative, unspecified site of breast ([facility]) Procedures CT CHEST W CONTRAST Vargas Marvin MD 111 [facility], [facility], Level 2 [place] [address] Referral ID Status Reason Start Date Expiration Date Visits Re quested Visits Authorized [id number] Closed 07/15/2020 1 1 Encounter Details Date Type Department Care Team (Late st Contact Info) Description 07/15/2020 Orders Only [facility] Surgical Oncology - [address] [address] Kenia Cline RN Malignant neoplasm of left breast in female, estrogen receptor negative, unspecified site of breast ([facility]) (Primary Dx) Social History Tobacco Use Types [...] Progress Notes * Kenia Cline RN - 07/15/[address] and bone scans have been ordered for workup. documented in this encounter Plan of Treatment Upcoming Encounters Date Type Department Care Team (Late st Contact Info) Description 01/31/2024 13:40 EDT Office Visit [facility] Surgical Oncology - [address] [address] Maeve Morales DO 111 [facility], [facility], Level [address] [place] [phone] documented as of this encounter Results * [...] andagree with the findings. Vargas Marvin MD [facility] NM ORDERABLES * CT ABDOMEN PELVIS W CONTRAST (07/18/2020 10:03 EST) Anatomical Region Laterality Modality Body, Abdomen, Pelvis, Abdomen and Pelvis Computed Tomography 07/18/2020 12:1 4 EST Impressions 07/18/2020 12:14 EST 1. No evidence of metastatic disease or lymphadenopathy in the abdomen or pelvis. 2. 4 mm nonobstructing left renal calculus. 3. Hepatic steatosis. I have personally reviewed the images and the above interpretation and agree with the findings. Narrative 07/18/2020 12:[address] ABDOMEN PELVIS W CONTRAST ??07/18/2020 2:00 PM Signs and Symptoms/Comments: ?? New diagnosis Left breast cancer, triple negative; complete staging needed prior to starting therapy Technique: CT of the abdomen and pelvis was performed following the administration intravenous contrast; coronal and sagittal multiplanar reconstructions generated. Comparison: None Findings: Lower chest: Please refer to the report of CT chest performed on the same day. Hepatobiliary: No focal hepatic mass. There is hepatic steatosis. No biliary ductal dilatation. The gallbladder is surgically absent. Spleen, pancreas, adrenal glands: Unremarkable. Kidneys, ureters, bladder: There is a 4 mm nonobstructing left renal calculus. No renal mass or hydronephrosis. Both ureters are normal in caliber. The urinary bladder is unremarkable. Uterus, ovaries: There is an IUD in the uterus. No adnexal mass. Bowel: No bowel obstruction or acute inflammatory changes. Normal appendix. Peritoneal cavity / Subperitoneal space: No free air or free fluid. Lymphovascular: Abdominal aorta is normal in caliber. Minimal calcified atherosclerotic plaques present in the aorta and branches. No lymphadenopathy. Abdominal wall: No bowel containing hernia. Musculoskeletal: No compression deformities or concerning osseous lesions. Degenerative changes are present in the lower lumbar spine. Otr Van Cdl Truck Driver: No additional findings. Procedure Note Deni Mercado MD - 07/18/2020 CT ABDOMEN PELVIS W CONTRAST 07/18/2020 2:00 PM Signs and Symptoms/Comments: New diagnosis Left breast cancer, triple negative; complete staging neededprior to starting therapy Technique: CT of the abdomen and pelvis was performed following the administrationintravenous contrast; coronal and sagittal multiplanar reconstructionsgenerated. Comparison: None Findings: Lower chest: Please refer to the report of CT chest performed on the sameday. Hepatobiliary: No focal hepatic mass. There is hepatic steatosis. Nobiliary ductal dilatation. The gallbladder is surgically absent. Spleen, pancreas, adrenal glands: Unremarkable. Kidneys, ureters, bladder: There is a 4 mm nonobstructing left renalcalculus. No renal mass or hydronephrosis. Both ureters are normal incaliber. The urinary bladder is unremarkable. Uterus, ovaries: There is an IUD in the uterus. No adnexal mass. Bowel: No bowel obstruction or acute inflammatory changes. Normalappendix. Peritoneal cavity / Subperitoneal space: No free air or free fluid. Lymphovascular: Abdominal aorta is normal in caliber. Minimal calcifiedatherosclerotic plaques present in the aorta and branches. Nolymphadenopathy. Abdominal wall: No bowel containing hernia. Musculoskeletal: No compression deformities or concerning osseous lesions.Degenerative changes are present in the lower lumbar spine. Otr Van Cdl Truck Driver: No additional findings. IMPRESSION 1. No evidence of metastatic disease or lymphadenopathy in the abdomen orpelvis. 2. 4 mm nonobstructing left renal calculus. 3. Hepatic steatosis. I have personally reviewed the images and the above interpretation andagree with the findings. Vargas Marvin MD IMG CT ORDERABLES * CT CHEST W CONTRAST (07/18/2020 10:03 EST) Anatomical Region Laterality Modality Chest Computed Tomogra phy 07/18/2020 12:3 9 EST Addenda Addendum by Ignacio Rutherford MD on 07/18/2020 13:39 EST Addendum: An upper left internal mammary lymph node is not enlarged (3 mm and transverse diameter), but is larger than corresponding node on the other side and could be abnormal. Recommend short-term follow-up. The case was reviewed with VARGAS MARVIN at the time of dictation. Impressions 07/18/2020 12:39 EST No evidence of metastatic disease in the chest Narrative 07/18/2020 12:[address] CHEST W CONTRAST ??07/18/2020 2:00 PM Clinical History/Comments: Complex Patient Condition - See Comments; new diagnosis Left breast cancer, triple negative; complete staging needed prior to starting therapy Technique: A single breath-hold helical CT acquisition was performed through the chest on a multidetector-row scanner with a reconstructed slice thickness of 3 mm and retrospectively reconstructed 0.9 mm thick sections with 0.45 mm overlapping intervals. ??The scans were obtained from the lung apices through the bases during the intravenous administration of 70-100 cc of 370 mg% nonionic contrast injected at a rate of 2 cc/second. Scans were reviewed on a dedicated PACS workstation for analysis. Comparison: None. Findings: CT of the chest performed after IV contrast administration. Lower neck: No abnormality Mediastinum: No abnormality Pleura: No abnormality Lungs: No significant abnormality Upper abdomen (limited to upper abdomen, not optimized for abdominal imaging):For a discussion of findings in the abdomen, please refer to the report of the dedicated abdominal CT from today. Bones and soft tissues of the chest wall: There is a 2.3 cm mass in the medial portion of the left breast. The soft tissues are otherwise unremarkable. No enlarged lymph nodes are seen in the axilla or subpectoral region. No skeletal metastases are identified. Procedure Note Ignacio Rutherford MD - 07/18/2020 CT CHEST W CONTRAST 07/18/2020 2:00 PM Clinical History/Comments: Complex Patient Condition - See Comments; new diagnosis Left breastcancer, triple negative; complete staging needed prior to startingtherapy Technique: A single breath-hold helical CT acquisition was performed through thechest on a multidetector-row scanner with a reconstructed slice thicknessof 3 mm and retrospectively reconstructed 0.9 mm thick sections with 0.45mm overlapping intervals. The scans were obtained from the lung apicesthrough the bases during the intravenous administration of 70-100 cc of370 mg% nonionic contrast injected at a rate of 2 cc/second. Scans werereviewed on a dedicated PACS workstation for analysis. Comparison: None. Findings: CT of the chest performed after IV contrast administration. Lower neck: No abnormality Mediastinum: No abnormality Pleura: No abnormality Lungs: No significant abnormality Upper abdomen (limited to upper abdomen, not optimized for abdominalimaging):For a discussion of findings in the abdomen, please refer to thereport of the dedicated abdominal CT from today. Bones and soft tissues of the chest wall: There is a 2.3 cm mass in themedial portion of the left breast. The soft tissues are otherwiseunremarkable. No enlarged lymph nodes are seen in the axilla orsubpectoral region. No skeletal metastases are identified. IMPRESSION No evidence of metastatic disease in the chest Vargas Marvin MD IMG CT ORDERABLES documented in this encounter Visit Diagnoses Diagnosis Malignant neoplasm of left breast in female, estrogen receptor negative, unspecified site of breast (HCC-CMS)- Primary Malignant neoplasm of left breast in female, estrogen receptor negative, unspecified site of breast (HCC-CMS) Malignant neoplasm of left breast in female, estrogen receptor negative, unspecified site of breast (HCC-CMS) documented in this encounter Care Teams Bed Worker Relationship Specialty Start Date End Date Batsheva Lira FNP [address] [phone] PCP - General 02/19/20 07/21/22 documented as of this encounter
--- OUTSIDE RECORDS SUMMARY | 2023-12-10 17:45 | XMS_ITS | Encounter Summary ---
Author Organization [facility] Address [address] [place] [address] Care Team Providers Care Aerial Installer Name Role Phone Batsheva Lira JOHN Primary Care Provider [phone] Reason for Visit * Reason Onset Date Comments Coordination Of Care 07/15/2020 Encounter Details Date Type Department Care Team (Late st Contact Info) Description 07/15/2020 Telephone [facility] Cancer Center Hematology & Oncology - [address] [address] Lolly Antunez, RN Coordination Of Care Social History Tobacco [...] Telephone Encounter - Lolly Antunez RN - 07/15/2020 1434 EST Called to introduce myself and coordinate time for chemotherapy education. Pt starting treatment on07/22, so would like something this week. I will send an invite for a Zoom meeting. documented in this encounter Plan of Treatment Upcoming Encounters Date Type Department Care Team (Late st Contact Info) Description 01/31/2024 13:40 EDT Office Visit [facility] Surgical Oncology - [address] [address] Maeve Morales, 111 [facility], [address] [place] [phone] documented as of this encounter Visit Diagnoses Not on filedocumented in this encounter Care Teams Aerial Installer Relationship Specialty Start Date End Date Batsheva Lira FNP [address] [phone] PCP - General 02/19/20 07/21/22 documented as of this encounter
--- OUTSIDE RECORDS SUMMARY | 2023-12-10 17:45 | XMS_ITS | Encounter Summary ---
Author Organization [facility] Address [address] [place] [address] Care Team Providers Care Waitstaff Name Role Phone Batsheva Lira JOHN Primary Care Provider [phone] Encounter Details Date Type Department Care Team (Late st Contact Info) Description 07/11/2020 Documentation Visit [facility] Surgical Oncology - Main [place] [address] [place] [address] Olga Brown, RN [address] [place] [address] Malignant neoplasm of left breast in female, [...] 10:19 EST documented as of this encounter Progress Notes * Olga Brown, RN - 07/11/2020 7164 EST Telephone call to patient re. her new left breast cancer. Discussed new dx. and answered all questions. Intake information received and documented. Explained role of Nurse Navigator and given direct telephone number. Offered appts at Breast [facility] on 07/[address] Morales Li, patient accepted. Discussed need for FCP referral, she would like to meet with a genetic lidding machine operator. Patient voiced understanding of all information given, no barriers. New patient intake form e- mailed to patient to complete and bring to appt. Dr Lopes notified regarding patient's appt in [facility]. OLGA BROWN RN documented in this encounter Plan of Treatment Upcoming Encounters Date Type Department Care Team (Late st Contact Info) Description 01/31/2024 13:40 EDT Office Visit [facility] Surgical Oncology - [address] [id number] Maeve Morales, DO [address] [facility], [address] [place] [phone] documented as of this encounter Visit Diagnoses Diagnosis Malignant neoplasm of left breast in female, estrogen receptor negative, unspecified site of breast (HCC-CMS)- Primary documented in this encounter Care Teams Waitstaff Relationship Specialty Start Date End Date Batsheva Lira FNP [address] [phone] PCP - General 02/19/20 07/21/22 documented as of this encounter
--- OUTSIDE RECORDS SUMMARY | 2023-12-10 17:45 | XMS_ITS | Encounter Summary ---
Author Organization [facility] Address [address] [place] [address] Care Team Providers Care Bolt Threader Name Role Phone Batsheva Lira JOHN Primary Care Provider [phone] Encounter Details Date Type Department Care Team (Late st Contact Info) Description 07/15/2020 Orders Only [facility] Cancer Center Hematology & Oncology - [address] [address] Lolly Antunez, RADHA Encounter for nonprocreative genetic counseling (Primary Dx); Genetic testing; Malignant neoplasm of left breast in female, estrogen receptor negative, unspecified site of breast (HCC-CMS) Social History Tobacco Use [...] EDT Office Visit [facility] Surgical Oncology - [address] [address] Maeve Morales, DO [address] [place] [address], [address] [place] [phone] documented as of this encounter Visit Diagnoses Diagnosis Encounter for nonprocreative genetic counseling- Primary Genetic testing Other investigation and testing for procreative management Malignant neoplasm of left breast in female, estrogen receptor negative, unspecified site of breast (HCC-CMS) documented in this encounter Care Teams Bolt Threader Relationship Specialty Start Date End Date Batsheva Lira FNP [address] [phone] PCP - General 02/19/20 07/21/22 documented as of this encounter
--- OUTSIDE RECORDS SUMMARY | 2023-12-10 17:45 | XMS_ITS | Encounter Summary ---
Author Organization [facility] Address [address] [place] [address] Care Team Providers Care Enterprise Data Architect Name Role Phone Batsheva Lira JOHN Primary Care Provider [phone] Reason for Visit * Reason Comments Breast Cancer Encounter Details Date Type Department Care Team (Late st Contact Info) Description 07/15/2020 9:30 EST Initial consult [facility] Cancer Center Radiation Oncology - [address] [id number] Vargas Marvin MD [address] [place] [address], [address] [place] [address] Malignant neoplasm of upper-inner quadrant [...] Reading Time Taken Comments Blood Pressure 150/83 07/15/2020918 EST Pulse 99 07/15/2020918 EST Temperature 35.7 ??C (96.3 ??F) 07/15/2020918 EST Respiratory Rate 12 07/15/2020918 EST Oxygen Saturation - - Inhaled Oxygen Concentration - - Weight 84.6 kg (186 lb 9.6 oz) 07/15/2020918 E ST Height 166.6 cm (5' 5.59) 07/15/2020918 EST Body Mass Index 30.49 07/15/2020918 EST documented in this encounter Functional Status [...] as of this encounter Progress Notes * Vargas Marvin MD - 07/15/2020 0930 EST Radiation Oncology [facility] Consultation Note Date: 07/15/2020 Name: Austin Squires Date of : 1975 Surgeon: Dr. Morales Med onc: Dr. Conde Referring MD: Dr. Morales Diagnosis: IDC of L breast Stage: cT2N0 Identification: Austin Squires is a 44 y.o. female patient, current smoker, with newly diagnosed cT2N0 IDC of L breast, grade 3, -/-/- seen in consultation for recommendations regarding radiation therapy. History of Present Illness: Baseline MMG at [facility] in 03/2018 showed possible asymmetry in L lateral breast. Diagnostic MMG and US there in 06/2018 showed no masses, scattered calcs. BIRADS2 06/19/20: CT neck and c-spine for a fall showed no SCV adenopathy or concern for intracranial disease 06/20/20: She saw Dr. Schulz, a printing manager in [place], [place], who noted a fixed 4x4cm area at 10:00 in L breast. The patient denies ever feeling a mass or noticing skin changes or nipple discharge. 07/07/20: Diagnostic MMG and US at [facility] showed 2.1cm mass at 10:00 9cm FN corresponding with mass with irregular margins on MMG and corresponding with palpable mass. There was also a 0.4cm cyst at 3:00 7cm. There were benign- appearing L axillary LNs. R breast was without evidence of malignancy 07/09/20: US guided biopsy of L breast at 10:00 9cm FN showed IDC, nuclear grade 3, ER-/PRlo (1%)/HER2- Current symptoms: Patient notes swelling and bruising following biopsy which is now improved. She notes some tenderness in the area of axillary LNs previously. On ROS, she notes urinary incontinence and was planning to undergo a bladder sling surgery in the near future. She has had weight gain thiswinter and has been feeling more tired since Mar 2020. She notes anxiety for which she takes lexapro. She also endorses some numbness/tingling in her arms and hands and headaches at times. Risk Factors: Menarche: Unknown Pregnancies: Age with 1st child: 23 Menopause: pre-menopausal Hx of OCP use: Mirena, recently placed Hx of fertility treatment: None Hx of HRT use: None Radiation Risk Factors: Implanted cardiac device: None Prior radiation to same or adjacent site: None Rheumatologic disease: None Past Medical & Surgical History: Past Medical History: Diagnosis Date ??? Exercise [...] SURGICAL HISTORY 1998, 2011 epidural with childbirth Medications: Current Outpatient Medications Medication ??? escitalopram oxalate (LEXAPRO) 10 mg tablet ??? ethinyl estradiol-etonogestrel (NUVARING) 0.12-0.015 mg/24 hr vaginal ring ??? INTRAUTERINE DEVICE, IUD, INTRAUTERINE ??? MELOXICAM ORAL ??? methocarbamoL (ROBAXIN) 750 mg tablet ??? oxybutynin (DITROPAN) 5 mg tablet No current facility-administered medications for this visit. Allergies: Allergies as of 07/15/2020 - Reviewed 07/15/2020 Allergen Reaction Noted ??? Oxycodone Other (See Comments) 06/24/2020 Social History: Drug Use: Social History Substance and Sexual Activity Drug Use Never Tobacco and Alcohol Use: reports that she has been smoking cigarettes. She has a 15.00 pack-year smoking history. She has never used smokeless tobacco. She reports current alcohol use. Social Narrative: Persian-Polish, family mostly live in [place]. Lives with 9yo daugther. Has 20 and 21 yo children nearby. 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 Family History: Family History Problem Relation Age of Onset ??? Lung Cancer Mother Her mother who was a smoker, had metastatic lung cancer involving bones, of which she ~1.5 yrsafter diagnosis. No family history of breast or ovarian cancer. Review of Systems: Reviewed in detail on our intake sheet today. She has no other pertinent positives on extensive review of systems other than as described above. Performance Status: ECOG PS 0 Physical Exam Vital Signs: Patient Vitals for the past 24 hrs: BP Temp Temp src Pulse Resp Height Weight 07/15/20 0919 (!) 150/83 35.7 ??C (96.3 ??F) Tympanic 99 12 166.6 cm (65.59) 84.6 kg (186 lb 9.6 oz) Pain Score (from Vitals) 07/15/2020 Initial score - Final score 4 Location FINGER General: Pleasant, well-appearing, and in no acute distress. HEENT: Head is normocephalic, atraumatic. Sclerae are anicteric. Neck: Supple, normal ROM Lymph nodes: There is no cervical or supraclavicular. There is nodularity in bilateral axillae. Breast: Examination of the L breast reveals bruising and ~4cm area of firmness, which is mobile. Nosuspicious masses or skin changes. No suspicious masses or skin changes in the contralateral breast. Chest: No labored breathing or use of accessory muscles of respiration. No audible wheezing Extremities: No cyanosis, edema. Full ROM in bilateral shoulders. Neuro: Alert and oriented, no focal deficits, normal gait. Psych: Mood is appropriate. Does not appear anxious. Skin: No erythema, rash. Labs/Imaging: I have personally reviewed the relevant studies as described in the HPI above. Assessment and Plan Ms. Bravo is a 44 y.o. female with patient, current smoker, with newly diagnosed cT2N0 IDC of Lbreast, grade 3, -/-/-. She will be undergoing genetic testing today. Given her larger triple negative medial tumor and some questionable clinical and exam findings, I recommended staging scans to better assess regional nodes including IMNs and supraclav and to rule out metastatic disease. We reviewed her diagnosis, pathology, and general treatment paradigms. We discussed that for largertriple negative breast cancer, even early stage, chemotherapy is often recommended. I discussed [facility] consensus recommendation for neoadjuvant RT, which may make a breast conserving surgery more feasible and provide information regarding response to chemotherapy. This will then be followed by locoregional treatment such as breast conserving surgery with adjuvant RT or mastectomy. We discussed the pros and cons of each approach. We discussed potential implications should she have a genetic mutation in BRCA. Dr. Conde will discuss chemotherapy with her and Dr. Morales will discuss surgical options with her in more detail. I reviewed the role of radiation in breast conserving therapy. I reviewed details of radiation planning and treatment. We briefly discussed indications for RT should she have a mastectomy. The potential benefits and adverse effects of radiation therapy in this context were discussed with the patient. We discussed utilizing DIBH to reduce lung and heart toxicity. All questions were answered to the patient's apparent satisfaction. I spent a total of 60 minutes on the date of this encounter meeting with the patient and reviewing documentation/coordinating care as described in the above note. Vargas Marvin MD Director Money of Radiation Oncology [facility] Office: [phone] Email: [email or web address] documented in this encounter Plan of Treatment Upcoming Encounters Date Type Department Care Team (Late st Contact Info) Description 01/31/2024 13:40 EDT Office Visit [facility] Surgical Oncology - [facility] [address] [place] [address] Maeve Morales, [address] [facility], [address] [place] [phone] documented as of this encounter Visit Diagnoses Diagnosis Malignant 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, estrogen receptor negative (HCC-CMS)- Primary documented in this encounter Care Teams Enterprise Data Architect Relationship Specialty Start Date End Date Batsheva Lira FNP [address] [phone] PCP - General 02/19/20 07/21/22 documented as of this encounter
--- OUTSIDE RECORDS SUMMARY | 2023-12-10 17:45 | XMS_ITS | Encounter Summary ---
Author Organization [facility] Address [address] [place] [address] Care Team Providers Care Biodiesel Plant Operations Engineer Name Role Phone Batsheva Lira JOHN Primary Care Provider Reason for Visit * Reason Comments Genetic Evaluation Telemedicine Video Visit * Consult (Routine) - Order Cancelled Specialty Diagnoses / Procedures Referred By Jen gonzáles Referred To Contact Hematology and Oncology Diagnoses Malignant neoplasm of left breast in female, estrogen receptor negative, unspecified site of breast ([facility]) Maeve Morales, 111 [facility] [address] [place] [address] [facility] Ep2 Hem/Onc [address] [place] [address] Referral ID Status Reason Start Date Expiration Date Visits Requested Visits Authorized [id number] Order Cancelled Specialty Services Required 07/11/2020 1 1 Encounter Details Date Type Department Care Team (Late st Contact Info) Description 07/14/2020 12:00 EST Telemedicine [facility] Cancer Center Hematology & Oncology - [facility] [address] [place], [place] [phone] Katia Goodman, MS [address] [place], [place] [address] Encounter for nonprocreative genetic counseling (Primary Dx); Genetic testing; Malignant neoplasm of left breast in female, estrogen receptor negative, unspecified site of breast (HCC-CMS); Family history of cancer Social History Tobacco Use Types Packs/Day Years [...] of this encounter Progress Notes * Katia Goodman, MS - 07/14/2020 1200 EST Austin Squires was seen in the familial cancer program by telehealth on July 14, 2020 at the request of the breast care center to discuss options for genetic testing based on her recent diagnosis of breast cancer. Austin was seen by video conference rather than in person in the heme-onc clinic due to the COVID-19 pandemic. I reviewed Austin's personal and family history information, discussed optionsfor genetic testing, as well as implications of any results. The concept of ???Telemedicine?? has been described [...] in patient???s medical or mental health care. Zoom ID: [id number] Password: [id number] Medical history Austin is a 44-year-old woman whose roll wrapper found a lump on her recent exam on June 20. She was referred for imaging and and a biopsy on July 09 confirmed that Austin has a triple negative breast cancer in her left breast. She will be meeting with surgical oncology, medical oncology, and radiation oncology on the day following our discussion at [facility]. Melissa medical history is also of note for bladder incontinence. She was scheduled for surgery on July 09 but her surgeon broke her ankle and had to reschedule the surgery. Austin also has a history of kidney stones, anxiety, and hypertension. Her only surgical procedure was gallbladder removal in 2018. Her current medications include a Mirena IUD that was placed 2 weeks ago, Lexapro, and oxybutynin. Menstrual history Austin started her periods at the age of 13. She has had 3 pregnancies and 3 live births delivering her first child at age 23. She breast-fed each of her children for about 1 month. She has used birthcontrol pills in the past for about a year in her 20s. She also used Depo-Provera shots, the NuvaRing and most recently an IUD. Social history Austin was born in [facility]. She recently moved from [place] to [place] in July 2018. 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 She is and single. She has 3 children. She has some college education. She is a current every day smoker, smoking about a half a pack per day and does want to quit. She drinks minimal alcohol and reports a weight gain of about 15 pounds since March. Family history Austin has 2 daughters and a son who range in age from 9-21. Austin has no full siblings. She has 4 paternal half siblings including 3 brothers and a sister. Melissa maternal family history includes her mother who was diagnosed with lung cancer at the age of54 and at the age of 56 from metastatic disease. She was a smoker. All of her mother's family lives in [facility] and Austin has no information about the health of these relatives. Melissa paternal family history includes her father who is 64 and relatively healthy for his age. Her father has 5 full brothers and 5 full sisters. He also has 2 paternal half-brothers. One of his full brothers of liver cancer in his 50s. Melissa paternal grandfather was diagnosed with leukemiain his 80s and in his 90s. Her paternal relatives are of [place] descent. Assessment I discussed with Austin that 10 to 15% of women with triple negative breast cancer harbor a mutationin a DNA repair gene. We discussed that BRCA1 and BRCA2 are the primary genes associated with triple negative breast cancer however there is emerging evidence that other genes may increase the risk for triple negative breast cancer as well. We did review the risk benefits and limitations of Austin undergoing genetic testing. We discussed that BRCA1, BRCA2, and perhaps PALB2 could impact her surgical decision making as they are associated with significant risk for a second primary breast cancer. Other genes associated with breast cancer risk are less likely to impact her surgical decision making but would have implications for screening and prevention after she has completed therapy for her current diagnosis. This information would also impact her family members. We discussed options for STAT panels versus more extended panels that would take a bit longer to turn around. As Austin is not sure what her plan for treatment will be and whether she will have surgery or chemotherapy first. Sheis of the mind that she would consider bilateral mastectomies if BRCA or PALB2 positive. If Melissa genetic testing is negative, we discussed that she has no first or second-degree relatives with breast cancer and therefore her risk for a second primary over the next 10 to 20 years is estimated to be 5 to 10% versus the 50 to 60% associated with BRCA mutations. We also discussed implications of testing with regards to other cancer risks including SOFTWARE ENGINEER DEVELOPER and GI. We also discussed that genetic testing can have therapeutic implications. Plan Following our discussion, Austin plans to have her blood drawn when she is in the breast care centeron July 15. The plan is to undergo a 9 gene STAT panel with reflex to an 84 gene panel if those results are negative. Austin understands that I will contact her with her results and that a follow-up appointment in the familial cancer program will be recommended if there are any abnormal findings. Time I spent a total of 60 minutes on the date of this encounter meeting with the patient and reviewing documentation/coordinating care as described in the above note. * Queenie Conde MD - 07/14/2020 1200 EST I agree with the Genetic Counselor's assessment and plan. Queenie Conde MD 07/15/2020 8:41 documented in this encounter Plan of Treatment Upcoming Encounters Date Type Department Care Team (Late st Contact Info) Description 01/31/2024 13:40 EDT Office Visit [facility] Surgical Oncology - [address] [phone] Maeve Morales, [address] [place] [address], [address] [place] [phone] documented as of this encounter Visit Diagnoses Diagnosis Encounter for nonprocreative genetic counseling- Primary Genetic testing Other investigation and testing for procreative management Malignant neoplasm of left breast in female, estrogen receptor negative, unspecified site of breast (HCC-CMS) Family history of cancer Family history of unspecified malignant neoplasm documented in this encounter Care Teams Biodiesel Plant Operations Engineer Relationship Specialty Start Date End Date Batsheva Lira FNP [address] [phone] PCP - General 02/19/20 07/21/22 documented as of this encounter
--- OUTSIDE RECORDS SUMMARY | 2023-12-10 17:45 | XMS_ITS | Encounter Summary ---
Author Organization [facility] Address [address] [place] [address] Care Team Providers Care Property Caretaker Name Role Phone Batsheva Lira JOHN Primary Care Provider [phone] Reason for Visit * Reason Onset Date Comments Appointment Related 07/16/2020 Encounter Details Date Type Department Care Team (Late st Contact Info) Description 07/16/2020 Telephone [facility] Center Hematology & Oncology - [facility] [address] [place] [address] [place] [address] [phone] Appointment Related Social History Tobacco [...] * Telephone Encounter - Ned Argueta - 07/16/2020 0832 EST Spoke with pt she is aware of appt 07/22 check in @8 labs and tx mw will see pt in chair around 9 left PAC# documented in this encounter Plan of Treatment Upcoming Encounters Date Type Department Care Team (Late st Contact Info) Description 01/31/2024 13:40 EDT Office Visit [facility] Surgical Oncology - [address] [address] Maeve Morales, DO [address] [facility], [facility], [address] [place] [phone] documented as of this encounter Visit Diagnoses Not on filedocumented in this encounter Care Teams Property Caretaker Relationship Specialty Start Date End Date Batsheva Lira FNP [address] [phone] PCP - General 02/19/20 07/21/22 documented as of this encounter
--- OUTSIDE RECORDS SUMMARY | 2023-12-10 17:45 | XMS_ITS | Encounter Summary ---
Author Organization [facility] Address [address] [place] [address] Care Team Providers Care Steam Shovel Engineer Name Role Phone Batsheva Lira JOHN Primary Care Provider [phone] Encounter Details Date Type Department Care Team (Late st Contact Info) Description 07/16/2020 Documentation Visit [facility] Hematology & Oncology - [address] [address] Lolly Antunez, RADHA Social History Tobacco Use [...] Dispensed Refills Start Date End Da te ondansetron (ZOFRAN-ODT) 8 mg disintegrating tablet Take 1 Tab by mouth every 8 hours as needed for Nausea. 60 Tab 2 07/16/2020 12/25/2020 documented in this encounter Progress Notes * Lolly Antunez, RN - 07/16/2020 1251 EST Patient Education Topic: Discussed with Austin new chemotherapy regimen Tono. Discussion included the role of the primary nurse, contact information, the logistics of receiving chemotherapy, specificdrug information including commonly reported side effects, self-care measures and signs/symptoms toreport immediately. A thermometer and supplemental written information will be given to the patientat her first treatment; the latter includes the chemo education binder, Chemotherapy and You, and Eating Hints. Austin has demonstrated a readiness to learn asking appropriate questions. No barriers to understanding were identified, except for an expected level of anxiety associated with a large amount of new information. Austin anticipates reinforcement during day 1 treatment, which is scheduled to be given 07/22/20. Method: Handout and Verbal Taught to: Patient Barriers: None Outcomes: verbalized understanding VTE-PACC Patient Education Flowsheet completed? Yes VTE education provided? Yes Method of education: Handout and Verbal VTE-PACC Score: Medium Pt referred to [facility] VTE-PACC? No Barriers to Education: None Who was taught? Patient documented in this encounter Plan of Treatment Upcoming Encounters Date Type Department Care Team (Late st Contact Info) Description 01/31/2024 13:40 EDT Office Visit [facility] Surgical Oncology - [address] [address] Maeve Morales, DO 111 [facility], [facility], Level 2 [place] [phone] documented as of this encounter Visit Diagnoses Not on filedocumented in this encounter Care Teams Steam Shovel Engineer Relationship Specialty Start Date End Date Batsheva Lira FNP [address] [phone] PCP - General 02/19/20 07/21/22 documented as of this encounter
--- OUTSIDE RECORDS SUMMARY | 2023-12-10 17:45 | XMS_ITS | Encounter Summary ---
Author Organization [facility] Address [address] [place] [address] Care Team Providers Care Ceramic Chemist Name Role Phone Batsheva Lira JOHN Primary Care Provider [phone] Encounter Details Date Type Department Care Team (Late st Contact Info) Description 07/15/2020 Orders Only [facility] Radiology - [address] [place] [address] [place] [address] Rivera Man DO Social History Tobacco Use Types Packs/Day Years [...] Visit [facility] Surgical Oncology - [address] [id number] Maeve Morales, DO 111 [facility], Level 2 [place] [phone] documented as of this encounter Visit Diagnoses Not on filedocumented in this encounter Care Teams Ceramic Chemist Relationship Specialty Start Date End Date Batsheva Lira FNP [address] [phone] PCP - General 02/19/20 07/21/22 documented as of this encounter
--- OUTSIDE RECORDS SUMMARY | 2023-12-10 17:45 | XMS_ITS | Encounter Summary ---
Author Organization [facility] Address [address] [place] [address] Care Team Providers Care Technical Aid Name Role Phone Batsheva Lira JOHN Primary Care Provider [phone] Encounter Details Date Type Department Care Team (Latest Contact Info) Description 07/15/2020 Documentation Visit [facility] Surgical Oncology - Main [place] [address] [place] [address] Kenia Cline, RADHA Malignant neoplasm of left [...] Notes * Kenia Cline RN - 07/15/2020 1234 EST Met with patient following their appointments with Dr. Morales, Dr. Conde, Dr. Marvin Reviewed the role of a Nurse Navigator. Patient was given Nurse Navigator business card with contact information, [employer] pamphlet and cancer center booklet with resource information. patient instructed on plan, mentioned below. All questions answered. Patient voiced understanding of all information given, no barriers. Plan: Staging workup scheduled 07/18 R US complete - ordered, patient will be called with appointment Plastics referral made, patient to be called with appointment Due to start neoadjuvant chemotherapy with Dr. Conde, will be called by Richi Antunez RN to review education chemotherapy binder provider Reviewed port details with patient Veronique Messinarand met with patient and will connect with counseling services and follow up on financial concerns Tour of infusion clinic provided FCP completed on 07/14; blood to be collected in lab 07/15. Patient instructed to call with any questions that come up. Will follow up with results of staging once completed. documented in this encounter Plan of Treatment Upcoming Encounters Date Type Department Care Team (Late st Contact Info) Description 01/31/2024 13:40 EDT Office Visit [facility] Surgical Oncology - [address] [id number] Maeve Morales, [address] [place] [address], [facility], Level 2 [place] [address] documented as of this encounter Visit Diagnoses Diagnosis Malignant neoplasm of left breast in female, estrogen receptor negative, unspecified site of breast (HCC-CMS)- Primary documented in this encounter Care Teams Technical Aid Relationship Specialty Start Date End Date Batsheva Lira FNP [address] [place] [phone] PCP - General 02/19/20 07/21/22 documented as of this encounter
--- OUTSIDE RECORDS SUMMARY | 2023-12-10 17:45 | XMS_ITS | Encounter Summary ---
Author Organization [facility] Address [address] [place] [address] Care Team Providers Care Title Lawyer Name Role Phone Batsheva Lira JOHN Primary Care Provider [phone] Reason for Referral * Radiology Services (Routine) - Closed Specialty Diagnoses / Procedures Referred By Contac t Referred To Contact Diagnoses Malignant neoplasm of left breast in female, estrogen receptor negative, unspecified site of breast (HCC-CMS) Procedures CT ABDOMEN PELVIS W CONTRAST Vargas Marvin MD [address] [place] [phone] Referral ID Status Reason Start Date Expiration Date Visits Re quested Visits Authorized [id number] Closed 07/15/2020 1 1 * Radiology Services (Routine) - Closed Specialty Diagnoses / Procedures Referred By Contac t Referred To Contact Diagnoses Malignant neoplasm of left breast in female, estrogen receptor negative, unspecified site of breast (HCC-CMS) Procedures CT CHEST W CONTRAST Vargas Marvin MD [address] [phone] Referral ID Status Reason Start Date Expiration Date Visits Re quested Visits Authorized [id number] Closed 07/15/2020 1 1 Reason for Visit * Radiology Services (Routine) - Closed Specialty Diagnoses / Procedures Referred By Jen gonzáles Referred To Contact Diagnoses Malignant neoplasm of left breast in female, estrogen receptor negative, unspecified site of breast ([facility]) Procedures CT ABDOMEN PELVIS W CONTRAST Vargas Marvin MD 111 [facility], [facility] 2 [place] [address] Referral ID Status Reason Start Date Expiration Date Visits Re quested Visits Authorized [id number] Closed 07/15/2020 1 1 Encounter Details Date Type Department Care Team (Latest Contact Info) Description 07/18/2020 9:26 EST - 07/18/2020 23:59 EST Hospital Encounter Medical Center Radiology CT - [facility] [address] [place], [place] [address] Malignant neoplasm of left breast in female, estrogen receptor negative, unspecified site of breast ([facility]) Discharge Disposition: Home or Self Care Social [...] Info) Description 01/31/2024 13:40 EDT Office Visit [facility] Surgical Oncology - [address] [phone] Maeve Morales, DO [address] [place] [address], [address] [place] [phone] documented as of this encounter Procedures Procedure Name Priority Date/Time Associated Diagnosis Comments CT CHEST W CONTRAST Routine 07/18/2020 1 0:03 EST Malignant neoplasm of left breast in female, estrogen receptor negative, unspecified site of breast (HCC-CMS) CT ABDOMEN PELVIS W CONTRAST Routine 07/18/2020 10:03 EST Malignant neoplasm of left breast in female, estrogen receptor negative, unspecified site of breast (HCC-CMS) documented in this encounter Results * CT ABDOMEN PELVIS W CONTRAST (07/18/2020 [...] are present in the lower lumbar spine. Road Oiling Truck Driver: No additional findings. Procedure Note [...] are present in the lower lumbar spine. Road Oiling Truck Driver: No additional findings. IMPRESSION 1. [...] Once in imaging, 1 dose, Starting on Tue07/18/20 at 1003, Until Tue07/18/20 at 1003, Routine, Imaging Protocol Orders Given 07/18/2020 10:03 EST 100 mL documented in this encounter Orders Medications Ordered That Juanito ht Not Have Been Administered Count Last Ordered Date First Ordered Date iohexoL (OMNIPAQUE 350) solution 100 mL 1 0 07/18/2020 documented in this encounter Care Teams Title Lawyer Relationship Specialty Start Date End Date Batsheva Lira FNP [facility] [address] [phone] PCP - General 02/19/20 07/21/22 documented as of this encounter
--- OUTSIDE RECORDS SUMMARY | 2023-12-10 17:45 | XMS_ITS | Encounter Summary ---
Author Organization [facility] Address [address] [place] [address] Care Team Providers Care Turn Out Name Role Phone Batsheva Lira JOHN Primary Care Provider [phone] Encounter Details Date Type Department Care Team (Late st Contact Info) Description 07/15/2020 11:30 EST Ancillary Procedure [facility] Surgical Oncology - Main [address] [address] Social History Tobacco Use Types Packs/Day Years [...] Info) Description 01/31/2024 13:40 EDT Office Visit [facility] Surgical Oncology - [facility] [address] [place], [place] [address] Maeve Morales DO 111 [facility], [facility], Level 2 [place] [phone] documented as of this encounter Procedures Procedure Name Priority Date/Time Associated Diagnosis Comments [facility] BREAST BREAST [facility] ONLY Routine 07/15/2020 12:40 EST documented in this encounter Results * [facility] BREAST BREAST [facility] ONLY (07/15/2020 12:40 EST) Narrative [facility] POINT OF CARE - 07/15/2020 12:40 EST This is a non-reportable exam. Maeve Morales DO [facility] ORDERABL ES [facility] POINT OF CARE documented in this encounter Visit Diagnoses Not on filedocumented in this encounter Care Teams Turn Out Relationship Specialty Start Date End Date Batsheva Lira FNP [address] [phone] PCP - General 02/19/20 07/21/22 documented as of this encounter
--- OUTSIDE RECORDS SUMMARY | 2023-12-10 17:45 | XMS_ITS | Encounter Summary ---
Author Organization [facility] Address [address] [place] [address] Care Team Providers Care Furnace And Wash Equipment Operator Name Role Phone Batsheva Lira JOHN Primary Care Provider Reason for Visit * Reason Comments New Patient Visit Encounter Details Date Type Department Care Team (Late st Contact Info) Description 07/15/2020 11:30 EST Multidisciplinary [facility] Surgical Oncology - [address] [id number] Maeve Morales, DO 111 [facility], [facility] 2 [place] [phone] Malignant neoplasm of upper-outer quadrant of left breast in female, estrogen [...] Time Taken Comments Blood Pressure 150/83 07/15/2020 0907 EST Pulse 99 07/15/2020 09 EST Temperature 35.7 ??C (96.3 ??F) 07/15/2020 0907 EST Respiratory Rate 12 07/15/2020 0907 EST Oxygen Saturation - - Inhaled Oxygen Concentration - - Weight 84.6 kg (186 lb 9.6 oz) 07/15/[address] Height 166.6 cm (5' 5.59) 07/15/2020 09 EST Body Mass Index 30.49 07/15/2020 09 EST documented in this encounter Functional Status [...] Progress Notes * Maeve Morales, DO - 07/15/2020 1130 EST Subjective: Patient ID: Austin Squires is an 44 y.o. female. Chief Complaint Patient presents with ??? New Patient Visit HPI Austin Squires is a pleasant 44-year-old female seen in consultation at the request of Dr. Whit Damon for a new left breast cancer. This is a patient that went in for her normal ASSISTIVE TECHNOLOGY TRAINER visit and a mass was palpated. This prompted diagnostic imaging which showed a concerning finding in the upper pole of the left breast. Biopsy was undertaken and returned back a nuclear grade 3 invasive ductal adenocarcinoma. 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 The patient had not appreciated this mass until it was brought to her attention. Since she initially noticed that she does feel it slightly more tender but she also had a biopsy. Patient Active Problem List Diagnosis ??? Malignant [...] Social History Tobacco Use ??? Smoking status: Current Every [...] Take 20 mg by mouth daily. ??? ethinyl estradiol-etonogestrel (NUVARING) 0.12-0.015 mg/[address] Each vaginally every 28 days. Wear continuously for 3 weeks; remove for 1 week; repeat with new ring, as directed. ??? INTRAUTERINE DEVICE, IUD, INTRAUTERINE by intrauterine route. ??? MELOXICAM ORAL Take by mouth as needed. ??? methocarbamoL (ROBAXIN) 750 mg tablet Take 1 Tab by mouth 4 times daily. (Patient not taking: Reported on 07/15/2020) 20 Tab 0 ??? oxybutynin (DITROPAN) 5 mg tablet Take 5 mg by mouth 2 times daily. No current facility-administered medications on file prior to visit. Allergies Allergen Reactions ??? Oxycodone Other (See Comments) Made her hyper Review of Systems Constitutional: Negative for chills, fever and weight loss. HENT: Negative for hearing loss. Eyes: Negative for blurred vision, double vision and photophobia. Respiratory: Negative for cough, shortness of breath and wheezing. Cardiovascular: Negative for chest pain and palpitations. Gastrointestinal: Negative for abdominal pain, heartburn, nausea and vomiting. Genitourinary: Positive for frequency and urgency. Negative for dysuria. Neurological: Negative for sensory change, focal weakness and headaches. - See HPI Objective: BP (!) 150/83 Pulse 99 Temp 35.7 ??C (96.3 ??F) (Tympanic) Resp 12 Ht 166.6 cm (65.59) Wt 84.6 kg (186 lb 9.6 oz) LMP 07/03/2020 BMI 30.49 kg/m?? Physical Exam Constitutional: General: She is not in acute distress. Appearance: She is well-developed and well-nourished. HENT: Head: Normocephalic and atraumatic. Eyes: Extraocular Movements: EOM normal. Conjunctiva/sclera: Conjunctivae normal. Pupils: Pupils are equal, round, and reactive to light. Neck: Musculoskeletal: Normal range of motion. Thyroid: No thyromegaly. Cardiovascular: Rate and Rhythm: Regular rhythm. Heart sounds: No murmur. Pulmonary: Effort: Pulmonary effort is normal. No respiratory distress. Breath sounds: Normal breath sounds. Lymphadenopathy: Cervical: No cervical adenopathy. Neurological: Mental Status: She is alert and oriented to person, place, and time. Cranial Nerves: No cranial nerve deficit. Breast: Breasts and axilla are examined in the seated and the supine position. There are no obviousmasses palpated in the right breast. On the left side she does have a large palpable mass in the superior portion of her breast. It has a clip located in it. Lymph nodes on ultrasound appear normal. There is no nipple inversion or discharge. There are no axillary masses. Assessment: Austin is seen in the office today in evaluation for a new left breast cancer. We discussed her pathology report in detail. We then discussed the differences between local regional treatment of surgery and radiation and systemic treatment of chemotherapy. We discussed the fact that with triple negative breast cancer typically chemotherapy is given first. That is our plan with Austin. I will follow with her at the skilled nursing point and again at the end. We then discussed the differences between partial mastectomy and mastectomy as it relates to overall survival, local regional recurrence, hospital time and recuperation. We discussed sentinel lymph node biopsy both how it is performed and its utility and staging. We discussed the possibility of oncoplastic reduction. I will have her seen by our plastic and reconstructive surgeon to further discuss what a breast reduction would look like. I willsee her at the skilled nursing point of her chemotherapeutic intervention. Plan: (C50.412, Z17.1) Malignant neoplasm of upper-outer quadrant of left breast in female, estrogen receptor negative (HCC-CMS) (primary encounter diagnosis) Maeve Morales DO Med Orders Placed This Visit and Additions to the Medication List Medications ??? oxybutynin (DITROPAN) 5 mg tablet Sig: Take 5 mg by mouth 2 times daily. ??? INTRAUTERINE DEVICE, IUD, INTRAUTERINE Sig: by intrauterine route. documented in this encounter Plan of Treatment Upcoming Encounters Date Type Department Care Team (Late st Contact Info) Description 01/31/2024 13:40 EDT Office Visit [facility] Surgical Oncology - [address] [address] Maeve Morales DO [address] [place] [address], [facility], Level 2 [place] [address] documented as of this encounter Visit Diagnoses Diagnosis Malignant neoplasm of upper-outer quadrant of left breast in female, estrogen receptor negative (HCC-CMS)- Primary documented in this encounter Historical Medications * This list may reflect changes made after this encounter. Medication Sig Dispensed Refills Start Date End Date INTRAUTERINE DEVICE, IUD, INTRAUTERINE by intrauterine route. 01/11/2022 oxybutynin (DITROPAN) 5 mg tablet Take 5 mg by mouth daily. 11/27/2020 added in this encounter Care Teams Furnace And Wash Equipment Operator Relationship Specialty Start Date End Date Batsheva Lira FNP [address] [phone] PCP - General 02/19/20 07/21/22 documented as of this encounter
--- OUTSIDE RECORDS SUMMARY | 2023-12-10 17:45 | XMS_ITS | Encounter Summary ---
Author Organization [facility] Address [address] [place] [address] Care Team Providers Care Bookstore Clerk Name Role Phone Batsheva Lira JOHN Primary Care Provider [phone] Encounter Details Date Type Department Care Team (Latest Contact Info) Description 07/18/2020 Travel Social History Tobacco Use Types Packs/Day [...] Description 01/31/2024 13:40 EDT Office Visit [facility] Surgical Oncology - [facility] [address] [place] [address] Maeve Morales, 111 [facility], [facility], Level 2 [place] [phone] documented as of this encounter Visit Diagnoses Not on filedocumented in this encounter Care Teams Bookstore Clerk Relationship Specialty Start Date End Date Batsheva Lira FNP [address] [phone] PCP - General 02/19/20 07/21/22 documented as of this encounter
--- OUTSIDE RECORDS SUMMARY | 2023-12-10 17:45 | XMS_ITS | Encounter Summary ---
Author Organization [facility] Address [address] [place] [address] Care Team Providers Care Networking Technician Name Role Phone Batsheva Lira JOHN Primary Care Provider [phone] Reason for Visit * Reason Onset Date Comments Appointment Related 07/15/2020 Encounter Details Date Type Department Care Team (Late st Contact Info) Description 07/15/2020 [facility]phone [facility] Breast Imaging Mammography - [address] [address] Carly Ramos Appointment Related Social History Tobacco Use Types [...] encounter Miscellaneous Notes * Telephone Encounter - Carly Ramos - 07/15/2020 1324 EST Reached patient and she is now scheduled for breast imaging on 07/16/20 documented in this encounter Plan of Treatment Upcoming Encounters Date Type Department Care Team (Late st Contact Info) Description 01/31/2024 13:40 EDT Office Visit [facility] Surgical Oncology - [address] [address] Maeve Morales, DO 111 [facility], [facility], Level [address] [place] [phone] documented as of this encounter Visit Diagnoses Not on filedocumented in this encounter Care Teams Networking Technician Relationship Specialty Start Date End Date Batsheva Lira FNP [address] [phone] PCP - General 02/19/20 07/21/22 documented as of this encounter
--- OUTSIDE RECORDS SUMMARY | 2023-12-10 17:45 | XMS_ITS | Encounter Summary ---
Author Organization [facility] Address [address] [place] [address] Care Team Providers Care Biodiesel Engineering Manager Name Role Phone Batsheva Lira JOHN Primary Care Provider [phone] Reason for Referral * Radiology Services (Routine) - Closed Specialty Diagnoses / Procedures Referred By Contac t Referred To Contact Diagnoses Malignant neoplasm of left breast in female, estrogen receptor negative, unspecified site of breast ([facility]) Procedures US BREAST COMPLETE RIGHT US BREAST DIAGNOSTIC Maeve Morales DO [address] [place] [phone] Referral ID Status Reason Start Date Expiration Date Visits Re quested Visits Authorized [id number] Closed 07/15/2020 1 1 Reason for Visit * Radiology Services (Routine) - Closed Specialty Diagnoses / Procedures Referred By Contac t Referred To Contact Diagnoses Malignant neoplasm of left breast in female, estrogen receptor negative, unspecified site of breast ([facility]) Procedures US BREAST COMPLETE RIGHT US BREAST DIAGNOSTIC Maeve Morales DO [address] [place] [phone] Referral ID Status Reason Start Date Expiration Date Visits Re quested Visits Authorized [id number] Closed 07/15/2020 1 1 Encounter Details Date Type Department Care Team (Latest Contact Info) Description 07/16/2020 10:56 EST - 07/16/2020 23:59 EST Hospital [facility] Breast Imaging Ultrasound - [address] [address] Malignant neoplasm of left breast in female, estrogen receptor negative, unspecified site of breast ([facility]) Discharge Disposition: Home or Self Care Social [...] Info) Description 01/31/2024 13:40 EDT Office Visit [facility] Surgical Oncology - [address] [phone] Maeve Morales, DO 111 [facility], [facility], Level 2 [place] [phone] documented as of this encounter Procedures Procedure Name Priority Date/Time Associated Diagnosis Comments US BREAST COMPLETE RIGHT Routine 07/16/2020 11:27 EST Malignant neoplasm of left breast in female, estrogen receptor negative, unspecified site of breast ([facility]) documented in this encounter Results * US BREAST COMPLETE [...] were discussed with the patient by the stereotyper apprentice at the time of the exam. The [...] (HCC-CMS) documented in this encounter Care Teams Biodiesel Engineering Manager Relationship Specialty Start Date End Date Batsheva Lira FNP [address] [phone] PCP - General 02/19/20 07/21/22 documented as of this encounter
--- OUTSIDE RECORDS SUMMARY | 2023-12-10 17:45 | XMS_ITS | Encounter Summary ---
Author Organization [facility] Address [address] [place] [address] Care Team Providers Care Hay Chopper Name Role Phone Batsheva Lira JOHN Primary Care Provider [phone] Encounter Details Date Type Department Care Team (Late st Contact Info) Description 07/15/2020 Orders Only [facility] Surgical Oncology - Main [address] [address] Kenia Cline, RADHA Malignant neoplasm of left [...] 01/31/2024 13:40 EDT Office Visit [facility] Surgical Oncology - [facility] [address] [place], [place] [id number] Maeve Morales, 111 [facility], Level 2 [place] [address] documented as of this encounter Results * (ABNORMAL) COMPLETE BLOOD COUNT AND DIFFERENTIAL (07/15/2020 12:53 EST) WBC 8.93 4.00 - 12.40 K/cmm 07/15/2020 13:28 [facility] RBC 5.33(H) 3.86 - 5.04 M/cmm 07/15/2020 13:28 [facility] Hemoglobin 15.4(H) 11.6 - 15.2 gm/dL 07/15/2020 13:28 [facility] HCT 46.7(H) 34.9 - 44.4 % 07/15/2020 13:28 [facility] MCV 88 81 - 98 fl 07/15/2020 13:28 [facility] MCH 28.9 26.7 - 33.3 pg 07/15/2020 13:28 [facility] MCHC 33.0 32.1 - 35.9 gm/dL 07/15/2020 13:28 [facility] RDW-CV 12.6 <14.7 % 07/15/2020 13:28 [facility] RDW-SD 39.9 <50.4 fl 07/15/2020 13:28 [facility] PLT 322 141 - 377 K/cmm 07/15/2020 13:28 [facility] MPV 10.3 9.5 - 12.7 fl 07/15/2020 13:28 [facility] % Neutrophils 65.2 % 07/15/2020 13:28 [facility] % Lymphocytes 23.4 % 07/15/2020 13:28 [facility] % Monocytes 8.2 % 07/15/2020 13:28 [facility] % Eosinophils 1.9 % 07/15/2020 13:28 [facility] % Basophils 1.0 % 07/15/2020 13:28 [facility] % Immature Grans 0.3 % 07/16/19 13:28 [facility] Absolute Neutrophils 5.82 2.20 - 8.85 K/cmm 07/15/2020 13:28 [facility] Absolute Lymphocytes 2.09 1.09 - 3.30 K/cmm 07/15/2020 13:28 [facility] Absolute Monocytes 0.73 0.10 - 0.80 K/cmm 07/15/2020 13:28 [facility] Absolute Eosinophils 0.17 0.03 - 0.61 K/cmm 07/15/2020 13:28 [facility] ABS Basophils 0.09 0.01 - 0.11 K/cmm 07/15/2020 13:28 [facility] Absolute Immature Grans 0.03 0.00 - 0.06 K/cmm 07/15/2020 13:28 [facility] Type of Differential: Auto 07/15/2020 13:28 [facility] Blood VENOUS BLOOD / Unknown Venipuncture / Unknown 07/15/2020 12:53 EST 07/15/2020 13:18 EST Queenie Conde MD PACKAGES & DNA PROBE ORDERABLES [facility] [address] [place] [address] * (ABNORMAL) COMPREHENSIVE METABOLIC PANEL (CMP) (07/15/2020 12:53 EST) Sodium 140 136 - 145 mEq/L 07/15/2020 13:48 [facility] Potassium 4.2 3.5 - 5.0 mEq/L 07/15/2020 13:48 [facility] Chloride 102 96 - 110 mEq/L 07/15/2020 13:48 [facility] CO2 Total 24 22 - 32 mEq/L 07/15/2020 13:48 [facility] Glucose 102(H) 70 - 100 mg/dL 07/15/2020 13:48 [facility] BUN 9(L) 10 - 26 mg/dL 07/15/2020 13:48 [facility] Creatinine 0.48(L) 0.52 - 1.04 mg/dL 07/15/2020 13:48 [facility] eGFR 120 >60 mL/min/1.7 3m2 07/15/2020 13:48 [facility] Comment:eGFR calculated mata asif CKD-EPI equation for non- Americans. Multiply eGFR by 1.16 for patients. Total Protein 7.5 6.3 - 8.2 g/dL 07/15/2020 13:48 [facility] Albumin 4.5 3.4 - 4.9 g/dL 07/15/2020 13:48 [facility] Alkaline Phosphatase 124 38 - 126 U/L 07/15/2020 13:48 [facility] AST 77(H) 15 - 46 U/L 07/15/2020 13:48 [facility] ALT 82(H) <35 U/L 07/15/2020 13:48 [facility] Bilirubin, Total <0.5 <1.4 mg/dL 07/16/19 13:48 [facility] Calcium 9.4 8.5 - 10.5 mg/dL 07/15/2020 13:48 [facility] Calculated Calcium 9.0 8.5 - 10.5 mg/dL 07/15/2020 13:48 [facility] Blood VENOUS BLOOD / Unknown Venipuncture / Unknown 07/15/2020 12:53 EST 07/15/2020 13:21 EST Queenie Conde MD CHEMISTRY & BLOOD GA S ORDERABLES [facility] [address] [place] [address] documented in this encounter Visit Diagnoses Diagnosis Malignant neoplasm of left breast in female, estrogen receptor negative, unspecified site of breast (HCC-CMS)- Primary documented in this encounter Care Teams Hay Chopper Relationship Specialty Start Date End Date Batsheva Lira FNP [address] [phone] PCP - General 02/19/20 07/21/22 documented as of this encounter
--- OUTSIDE RECORDS SUMMARY | 2023-12-10 17:45 | XMS_ITS | Encounter Summary ---
Author Organization [facility] Address [address] [place] [address] Care Team Providers Care Rn Residential Name Role Phone Batsheva Lira JOHN Primary Care Provider [phone] Reason for Visit * Reason Onset Date Comments Social Work 07/17/2020 financial Encounter Details Date Type Department Care Team (Late st Contact Info) Description 07/17/2020 Telephone [facility] Hematology & Oncology - [facility] [address] [place], [place] [address] Veronique Dye Social Work (financial) Social History [...] * Telephone Encounter - Veronique Dye - 07/17/2020 0919 EST Pt inquiring about using the CPS[employer] towards a wig. PN sent pt a list of available grants ([employer], [employer] & [employer]) and explained that she can use these grants however she deems helpful. PN had suggested that she use assistance from [facility] to purchase a wig as I know she's concerned about her household expenses. Pt would like to proceed with applying to any grants available to her at this time. PN asked pt to send in some bills and I can help her apply for [employer] and [employer]. Explained that [employer] requires pt's to be in tx for at least 30 days and I will need bills and a copy of her taxes andpay stub for this monserrat. Plan- Apply for grants once pt sends bills. documented in this encounter Plan of Treatment Upcoming Encounters Date Type Department Care Team (Late st Contact Info) Description 01/31/2024 13:40 EDT Office Visit [facility] Surgical Oncology - [address] [address] Maeve Morales, 111 [facility], [address] [place] [phone] documented as of this encounter Visit Diagnoses Not on filedocumented in this encounter Care Teams Rn Residential Relationship Specialty Start Date End Date Batsheva Lira FNP [address] [place] [phone] PCP - General 02/19/20 07/21/22 documented as of this encounter
--- OUTSIDE RECORDS SUMMARY | 2023-12-10 17:45 | XMS_ITS | Encounter Summary ---
Author Organization [facility] Address [address] [place] [address] Care Team Providers Care Sword Swallower Name Role Phone Batsheva Lira JOHN Primary Care Provider [phone] Encounter Details Date Type Department Care Team (Late st Contact Info) Description 07/15/2020 Orders Only [facility] Radiology - Main [place] [address] [place] [address] Hernán Pantoja MD [facility] [address] [place] [phone] Social History Tobacco Use Types Packs/Day Years [...] 01/31/2024 13:40 EDT Office Visit [facility] Surgical Oncology - [address] [address] Maeve Morales, DO [address] [place] [address], [address] [place] [phone] documented as of this encounter Visit Diagnoses Not on filedocumented in this encounter Care Teams Sword Swallower Relationship Specialty Start Date End Date Batsheva Lira FNP [address] [phone] PCP - General 02/19/20 07/21/22 documented as of this encounter
--- OUTSIDE RECORDS SUMMARY | 2023-12-10 17:45 | XMS_ITS | Encounter Summary ---
Author Organization [facility] Address [address] [place] [address] Care Team Providers Care Adoption Worker Name Role Phone Batsheva Lira JOHN Primary Care Provider Encounter Details Date Type Department Care Team (Late st Contact Info) Description 07/15/2020 12:30 EST Phlebotomy Only [facility] ED Center 2 Phlebotomy [address] [place] [address] Men'S Furnishings Salesperson, Acc Phlebotomy Health examination in population survey (Primary Dx); Malignant neoplasm of left breast in female, [...] Info) Description 01/31/2024 13:40 EDT Office Visit [facility] Surgical Oncology - [facility] [address] [place], [place] [address] Maeve Morales, DO [address] [place] [address], [address] [place] [address] documented as of this encounter Procedures Procedure Name Priority Date/Time Associated Diagnosis Comments LAB VENIPUNCTURE DRAW TEST Routine 07/15/2020 12:53 EST Health examination in population survey REFERRAL TEST 1 Routine 07/15/2020 12:53 EST Health examination in population survey Malignant neoplasm of left breast in female, estrogen receptor negative, unspecified site of breast (HCC-CMS) COMPLETE BLOOD COUNT AND DIFFERENTIAL Routine 07/15/2020 12:53 EST Malignant neoplasm of left breast in female, estrogen receptor negative, unspecified site of breast (HCC-CMS) COMPREHENSIVE METABOLIC PANEL (CMP) Routine 07/15/2020 12:53 EST Malignant neoplasm of left breast in female, estrogen receptor negative, unspecified site of breast (HCC-CMS) documented in this encounter Results * REFERRAL TEST 1 (07/15/2020 12:53 EST) Test Name Breast Cancer STAT Panel with Add-on CHEK2 gene and Add-on NYLA gene 08/15/2020 13:22 EDT Result 08/15/2020 13:22 EDT Comment:See Scanned Results in Patient's Chart. Ref Lab [facility] 08/15/2020 13:22 EDT Blood VENOUS BLOOD / Unknown Venipuncture / Unknown 07/15/2020 12:53 EST 07/15/2020 13:51 EST Queenie Conde MD LAB INFO SERVICE AND SUPPORT & PHONE RESULT * (ABNORMAL) COMPLETE BLOOD COUNT AND DIFFERENTIAL (07/15/2020 12:53 EST) WBC 8.93 4.00 - 12.40 K/cmm 07/15/2020 13:28 [facility] RBC 5.33(H) 3.86 - 5.04 M/cmm 07/15/2020 13:28 [facility] Hemoglobin 15.4(H) 11.6 - 15.2 gm/dL 07/15/2020 13:28 [facility] HCT 46.7(H) 34.9 - 44.4 % 07/15/2020 13:28 [facility] MCV 88 81 - 98 fl 07/15/2020 13:28 [facility] MCH 28.9 26.7 - 33.3 pg 07/15/2020 13:28 [facility] MCHC 33.0 32.1 - 35.9 gm/dL 07/15/2020 13:28 [facility] RDW-CV 12.6 <14.7 % 07/15/2020 13:28 [facility] RDW-SD 39.9 <50.4 fl 07/15/2020 13:28 [facility] PLT 322 141 - 377 K/cmm 07/15/2020 13:28 [facility] MPV 10.3 9.5 - 12.7 fl 07/15/2020 13:28 [facility] % Neutrophils 65.2 % 07/15/2020 13:28 [facility] % Lymphocytes 23.4 % 07/15/2020 13:28 [facility] % Monocytes 8.2 % 07/15/2020 13:28 [facility] % Eosinophils 1.9 % 07/15/2020 13:28 [facility] % Basophils 1.0 % 07/15/2020 13:28 [facility] % Immature Grans 0.3 % 07/16/19 13:28 [facility] Absolute Neutrophils 5.82 2.20 - 8.85 K/cmm 07/15/2020 13:28 [facility] Absolute Lymphocytes 2.09 1.09 - 3.30 K/cmm 07/15/2020 13:28 [facility] Absolute Monocytes 0.73 0.10 - 0.80 K/cmm 07/15/2020 13:28 [facility] Absolute Eosinophils 0.17 0.03 - 0.61 K/cmm 07/15/2020 13:28 [facility] ABS Basophils 0.09 0.01 - 0.11 K/cmm 07/15/2020 13:28 [facility] Absolute Immature Grans 0.03 0.00 - 0.06 K/cmm 07/15/2020 13:28 [facility] Type of Differential: Auto 07/15/2020 13:28 [facility] Blood VENOUS BLOOD / Unknown Venipuncture / Unknown 07/15/2020 12:53 EST 07/15/2020 13:18 EST Queenie Conde MD PACKAGES & DNA PROBE ORDERABLES Performing Organization Address City/State/[facility] [[email or web address]] Co de Phone Number [facility] [address] [place] [address] * (ABNORMAL) COMPREHENSIVE METABOLIC PANEL (CMP) (07/15/2020 12:53 EST) Sodium 140 136 - 145 mEq/L 07/15/2020 13:48 [facility] Potassium 4.2 3.5 - 5.0 mEq/L 07/15/2020 13:48 [facility] Chloride 102 96 - 110 mEq/L 07/15/2020 13:48 [facility] CO2 Total 24 22 - 32 mEq/L 07/15/2020 13:48 [facility] Glucose 102(H) 70 - 100 mg/dL 07/15/2020 13:48 [facility] BUN 9(L) 10 - 26 mg/dL 07/15/2020 13:48 [facility] Creatinine 0.48(L) 0.52 - 1.04 mg/dL 07/15/2020 13:48 [facility] eGFR 120 >60 mL/min/1.7 3m2 07/15/2020 13:48 [facility] Comment:eGFR calculated mata asif CKD-EPI equation for non- Americans. Multiply eGFR by 1.16 for patients. Total Protein 7.5 6.3 - 8.2 g/dL 07/15/2020 13:48 [facility] Albumin 4.5 3.4 - 4.9 g/dL 07/15/2020 13:48 [facility] Alkaline Phosphatase 124 38 - 126 U/L 07/15/2020 13:48 [facility] AST 77(H) 15 - 46 U/L 07/15/2020 13:48 [facility] ALT 82(H) <35 U/L 07/15/2020 13:48 [facility] Bilirubin, Total <0.5 <1.4 mg/dL 07/16/19 13:48 [facility] Calcium 9.4 8.5 - 10.5 mg/dL 07/15/2020 13:48 [facility] Calculated Calcium 9.0 8.5 - 10.5 mg/dL 07/15/2020 13:48 [facility] Blood VENOUS BLOOD / Unknown Venipuncture / Unknown 07/15/2020 12:53 EST 07/15/2020 13:21 EST Queenie Conde MD CHEMISTRY & BLOOD GA S ORDERABLES [facility] [address] [place] [address] * LAB VENIPUNCTURE DRAW TEST (07/15/2020 12:53 EST) Pathologist [facility] Hold 07/15/2020 15:02 EST [facility] Blood VENOUS BLOOD / Unknown Venipuncture / Unknown 07/15/2020 12:53 EST 07/15/2020 13:51 EST Queenie Conde MD LAB INFO SERVICE AND SUPPORT & PHONE RESULT [facility] [address] [place] [address] documented in this encounter Visit Diagnoses Diagnosis Health examination in population survey- Primary Malignant neoplasm of left breast in female, estrogen receptor negative, unspecified site of breast (HCC-CMS) documented in this encounter Care Teams Adoption Worker Relationship Specialty Start Date End Date Batsheva Lira FNP [address] [phone] PCP - General 02/19/20 07/21/22 documented as of this encounter
--- OUTSIDE RECORDS SUMMARY | 2023-12-10 17:45 | XMS_ITS | Encounter Summary ---
Author Organization [facility] Address [address] [place] [address] Care Team Providers Care Instructional Manager Name Role Phone Batsheva Lira JOHN Primary Care Provider [phone] Reason for Referral * Radiology Services (Routine) - Closed Specialty Diagnoses / Procedures Referred By Contac t Referred To Contact Nuclear Medicine Diagnoses Malignant neoplasm of left breast in female, estrogen receptor negative, unspecified site of breast (HCC-CMS) Procedures NM BONE WHOLE BODY Vargas Marvin MD [address] [place] [phone] Referral ID Status Reason Start Date Expiration Date Visits Re quested Visits Authorized [id number] Closed 07/15/2020 1 1 Reason for Visit * Radiology Services (Routine) - Closed Specialty Diagnoses / Procedures Referred By Contac t Referred To Contact Nuclear Medicine Diagnoses Malignant neoplasm of left breast in female, estrogen receptor negative, unspecified site of breast ([facility]) Procedures NM BONE WHOLE BODY Vargas Marvin MD [address] [phone] Referral ID Status Reason Start Date Expiration Date Visits Re quested Visits Authorized [id number] Closed 07/15/2020 1 1 Encounter Details Date Type Department Care Team (Latest Contact Info) Description 07/18/2020 9:22 EST - 07/18/2020 9:23 EST Hospital Encounter [facility] Radiology Nuclear Medicine and PET - [address] [address] Malignant neoplasm of left breast in female, estrogen receptor negative, unspecified site of breast ([facility]) Discharge Disposition: Home or Self Care Social [...] Office Visit [facility] Surgical Oncology - [address] [id number] Maeve Morales, DO [address] [facility] [place], [facility], Level 2 [place] [phone] documented as of this encounter Procedures Procedure Name Priority Date/Time Associated Diagnosis Comments NM BONE WHOLE BODY Routine 07/18/2020 13 :17 EST Malignant neoplasm of left breast in female, estrogen receptor negative, unspecified site of breast ([facility]) documented in this encounter Results * NM [...] with the findings. Vargas Marvin MD IMG NM ORDERABLES documented in this encounter [...] radiopharm IV, NOW X1, 1 dose, On Tue07/18/20 at 1015, Routine, Imaging Protocol Orders Given 07/18/2020 9:45 EST 19.3 millicuries Right Forearm documented in this encounter Orders Medications Ordered That Juanito ht Not Have Been Administered Count Last Ordered Date First Ordered Date technetium (Tc-99m) methylen e diphosphonate (MDP) injection 18 millicurie 1 07/18/2020 documented in this encounter Care Teams Instructional Manager Relationship Specialty Start Date End Date Batsheva Lira FNP [address] [phone] PCP - General 02/19/20 07/21/22 documented as of this encounter
--- OUTSIDE RECORDS SUMMARY | 2023-12-10 17:45 | XMS_ITS | Encounter Summary ---
Author Organization [facility] Address [address] [place] [address] Care Team Providers Care Design Engineering Technician Name Role Phone Batsheva Lira JOHN Primary Care Provider [phone] Reason for Referral * Consult (Routine) - Specialty Report Received Specialty Diagnoses / Procedures Referred By Jen gonzáles Referred To Contact Hematology and Oncology Diagnoses Malignant neoplasm of female breast, unspecified estrogen receptor status, unspecified laterality, unspecified site of breast ([facility]) [place] [address] [phone] [facility] Ep2 Hem/Onc [address] [place] [address] Referral ID Status Reason Start Date Expiration Date Visits Requested Visits Authorized [id number] Specialty Report Received Specialty Services Required 07/16/2020 1 1 Question Answer Insurance / Financial Yes Comments Tiffany, can you touch base with her at C1D1. 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) Encounter Details Date Type Department Care Team (Late st Contact Info) Description 07/16/2020 Orders Only [facility] Cancer Center Hematology & Oncology - Main [place] [address] [place], [place] [phone] Veornique Dye Malignant neoplasm of female breast, unspecified estrogen receptor status, unspecified laterality, unspecified site of breast ([facility]) (Primary Dx) Social History Tobacco Use Types [...] encounter Progress Notes * Veronique Dye - 07/16/2020 0847 EST SW referral documented in this encounter Plan of Treatment Upcoming Encounters Date Type Department Care Team (Late st Contact Info) Description 01/31/2024 13:40 EDT Office Visit [facility] Surgical Oncology - [address] [address] Maeve Morales, [address] [place] [address], Level [address] [place] [phone] Scheduled Referrals Name Type Priority Associated Diagnoses Orde r Schedule [facility] SERVICES Outpatient Referral Routine Malignant neoplasm of female breast, unspecified estrogen receptor status, unspecified laterality, unspecified site of breast ([facility]) Ordered: 07/16/2020 documented as of this encounter Visit Diagnoses Diagnosis Malignant neoplasm of female breast, unspecified estrogen receptor status, unspecified laterality, unspecified site of breast (HCC-CMS)- Primary documented in this encounter Care Teams Design Engineering Technician Relationship Specialty Start Date End Date Batsheva Lira FNP [address] [phone] PCP - General 02/19/20 07/21/22 documented as of this encounter
--- OUTSIDE RECORDS SUMMARY | 2023-12-10 17:45 | XMS_ITS | Encounter Summary ---
Author Organization [facility] Address [address] [place] [address] Care Team Providers Care Warp Tying Machine Tender Name Role Phone Batsheva Lira JOHN Primary Care Provider [phone] Encounter Details Date Type Department Care Team (Late st Contact Info) Description 07/15/2020 Orders Only [facility] Cancer Center Hematology & Oncology - [address] [address] Veronique Dye Malignant neoplasm of female breast, unspecified [...] encounter Progress Notes * Veronique Dye - 07/15/2020 1447 EST Counseling & CLS referral documented in this encounter Plan of Treatment Upcoming Encounters Date Type Department Care Team (Late st Contact Info) Description 01/31/2024 13:40 EDT Office Visit [facility] Surgical Oncology - [address] [address] Maeve Morales, 111 [facility], [facility], Level [address] [place] [address] documented as of this encounter Visit Diagnoses Diagnosis Malignant neoplasm of female breast, unspecified estrogen receptor status, unspecified laterality, unspecified site of breast ([facility])- Primary documented in this encounter Care Teams Warp Tying Machine Tender Relationship Specialty Start Date End Date Batsheva Lira FNP [address] [place] [phone] PCP - General 02/19/20 07/21/22 documented as of this encounter
--- OUTSIDE RECORDS SUMMARY | 2023-12-10 17:45 | XMS_ITS | Encounter Summary ---
Author Organization [facility] Address [address] [place] [address] Care Team Providers Care Radio Division Lieutenant Name Role Phone Batsheva Lira JOHN Primary Care Provider [phone] Encounter Details Date Type Department Care Team (Late st Contact Info) Description 07/15/2020 Documentation Visit [facility] Hematology & Oncology - [facility] [address] [place] [address] Veronique Dye Social History Tobacco Use Types [...] Progress Notes * Veronique Dye - 07/15/2020 1429 EST PN met with pt today during Breast [facility] and introduced my role and services. 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 She's and lives with her 9 y.o daughter Lan in [place]. She has two other children (ages 21 & 20) who live in [place] and all of pt's family live in [place]. Pt's treatment will involve neoadjuvant chemotherapy, surgery and radiation. Pt's concerns today are around financial. 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 Pt expects she will need to take a pay cut if she's not able to complete all of her job requirements. She asked about social security disability and PN explained that [facility] eligibility guidelines are forlate stage cancers (stage IV) and out of work for more than a year. If she feels well, she's hopingto work as much as she can. Made pt aware of available cancer grants (ROX, Angel Ng & EROS) and explained that pt's oftenuse these grants to help with paying a bill(s) to offset lost wages. Also, made pt aware of gas cards and transportation resources to help with cost of travel. Pt doesn't have ST disability through her company and is agreeable with seeing how she tolerates her first cycle or two of chemo. And, then evaluate it's impact on her income. Transportation- friends and/or pt will ask PN for rides Insurance/financial- pt has Medicaid Pt aware of grants & travel resources Support Network- friends and family, however they are all in [place] PN made pt aware of our psychosocial services including counseling and CLS. Pt is agreeable with a referral to counseling and CLS to help her with her 9 y.o. Hair Loss- pt is interested in getting a wig. PN will email her a list of options and process for getting a wig Plan- Pt given PN's contact information PN will email pt wig info Referral to counseling and CLS Available as needed for support and resources documented in this encounter Plan of Treatment Upcoming Encounters Date Type Department Care Team (Late st Contact Info) Description 01/31/2024 13:40 EDT Office Visit [facility] Surgical Oncology - [address] [id number] Maeve Morales, [address] [facility], [address] [place] [address] documented as of this encounter Visit Diagnoses Not on filedocumented in this encounter Care Teams Radio Division Lieutenant Relationship Specialty Start Date End Date Bathseva Lira FNP [address] [address] PCP - General 02/19/20 07/21/22 documented as of this encounter
--- OUTSIDE RECORDS SUMMARY | 2023-12-10 17:46 | XMS_ITS | Encounter Summary ---
Author Organization [facility] Address [address] [place] [address] Care Team Providers Care Petroleum Refining Equipment Operator Name Role Phone Batsheva Lira JOHN Primary Care Provider Encounter Details Date Type Department Care Team (Latest Contact Info) Description 06/02/2020 Transcribe Orders [facility] MOBILE [address] [place] [address] Mare Echeverria MD [address] [facility], [address] [place] [address] Pre-procedure lab exam (Primary Dx) Social History Tobacco Use Types Packs/Day Years Used Date Smoking Tobacco: Never Assessed Interpersonal Safety Answer Date Record ed Physically Hurt Never 02/19/2020 Verbally Threaten Not on file 02/19/2020 Sex and Gender Information Value Date Recorded Sex Assigned at Not on file Gender Identity Female 02/19/2020 9:10 EDT Sexual Orientation Not on file documented as of this encounter Plan of Treatment Upcoming Encounters Date Type Department Care Team (Late st Contact Info) Description 01/31/2024 13:40 EDT Office Visit [facility] Surgical Oncology - [facility] [address] [place], [place] [id number] Maeve Morales, DO [address] [facility], [facility], [address] [place] [address] documented as of this encounter Visit Diagnoses Diagnosis Pre-procedure lab exam- Primary Pre-procedural laboratory examination documented in this encounter Care Teams Petroleum Refining Equipment Operator Relationship Specialty Start Date End Date Batsheva Lira FNP [address] [phone] PCP - General 02/19/20 07/21/22 documented as of this encounter
--- OUTSIDE RECORDS SUMMARY | 2023-12-10 17:46 | XMS_ITS | Encounter Summary ---
Author Organization [facility] Address [address] [place] [address] Care Team Providers Care Property Economist Name Role Phone Batsheva Lira JOHN Primary Care Provider [phone] Encounter Details Date Type Department Care Team (Latest Contact Info) Description 07/07/2020 Travel Social History Tobacco Use Types Packs/Day [...] have Coronavirus / COVID-19? No / Unsure 07/07/2020 13:34 EST documented as of this encounter Plan of Treatment Upcoming Encounters Date Type Department Care Team (Late st Contact Info) Description 01/31/2024 13:40 EDT Office Visit [facility] Surgical Oncology - [facility] [address], [place] [address] Maeve Morales, DO [address] [facility], [facility], [address] [place] [address] documented as of this encounter Visit Diagnoses Not on filedocumented in this encounter Care Teams Property Economist Relationship Specialty Start Date End Date Batsheva Lira FNP [address] [phone] PCP - General 02/19/20 07/21/22 documented as of this encounter
--- OUTSIDE RECORDS SUMMARY | 2023-12-10 17:46 | XMS_ITS | Encounter Summary ---
Author Organization [facility] Address [address] [place] [address] Care Team Providers Care Auto Porter Name Role Phone Batsheva Lira JOHN Primary Care Provider [phone] Reason for Referral * Radiology Services (Routine) - Closed Specialty Diagnoses / Procedures Referred By Jen gonzáles Referred To Contact Diagnoses Breast mass Procedures US BREAST BIOPSY LEFT Bianca Lopes MD [address] [place] [phone] Referral ID Status Reason Start Date Expiration Date Visits Re quested Visits Authorized [id number] Closed 07/08/2020 1 1 Reason for Visit * Radiology Services (Routine) - Closed Specialty Diagnoses / Procedures Referred By Jen gonzáles Referred To Contact Diagnoses Breast mass Procedures US BREAST BIOPSY LEFT Bianca Lopes MD [address] [place] [address] Referral ID Status Reason Start Date Expiration Date Visits Re quested Visits Authorized [id number] Closed 07/08/2020 1 1 Encounter Details Date Type Department Care Team (Latest Contact Info) Description 07/09/2020 10:19 EST - 07/09/2020 10:[address] [facility] Breast Imaging Ultrasound - [facility] [place] [address] [place], [place] [address] Breast mass; Breast lump on left side at 10 o'clock position Discharge Disposition: Home or Self Care Social [...] 10:19 EST documented as of this encounter Medications at Time of Discharge Medication Sig Dispensed Refills Start Date End Date escitalopram oxalate (LEXAPRO) 10 mg tablet Take 30 mg by mouth daily. 12/03/2022 ethinyl estradiol-etonogestrel (NUVARING) 0.12-0.015 mg/[address] Each vaginally every 28 days. Wear continuously for 3 weeks; remove for 1 week; repeat with new ring, as directed. 08/08/2020 MELOXICAM ORAL Take by mouth as needed. 08/13/2020 methocarbamoL (ROBAXIN) 750 mg tablet Take 1 Tab by mouth 4 times daily. 20 Tab 06/19/2020 08/08/2020 documented as of this encounter Discharge Disposition Disposition Code Departure Means Destination Home or Self Care documented in this encounter Miscellaneous Notes * Result Encounter Note - Elle Barksdale - 07/09/2020 1030 EST I told pt results of left breast bx done on 07-09-20 (POS). I called Emir Lopes's office for the formal referral and spoke to Samantha. spanglre 07-10-20 documented in this encounter Plan of Treatment Upcoming Encounters Date Type Department Care Team (Late st Contact Info) Description 01/31/2024 13:40 EDT Office Visit [facility] Surgical Oncology - [address] [id number] Maeve Morales, DO [address] [facility], [facility], [address] [place] [phone] documented as of this encounter Procedures Procedure Name Priority Date/Time Associated Diagnosis Comments US BREAST OR LYMPH NODE CORE OR FNA BIOPSY LEFT Routine 07/09/2020 11:38 EST Breast mass SURGICAL PATHOLOGY Routine 07/09/2020 11 :38 EST Breast mass documented in this encounter Results * US BREAST BIOPSY LEFT (07/09/2020 11:38 EST) Anatomical Region Laterality Modality Breast Left Ultrasound 07/09/2020 11:5 9 EST Addenda Addendum by Anny Tim MD on 07/10/2020 14:21 EST Addendum: The biopsy was performed by Drs. Stapleton and [place]. Pathology and imaging findings are reviewed by Dr. Tim. Pathology from the left breast ultrasound-guided core biopsy at 10:00, 9 cm from the nipple demonstrates adenocarcinoma, invasive, ductal type, nuclear grade 3. The pathologist further commented: The needle core biopsy of the left breast contains a high grade invasive ductal carcinoma. The tumor does not form any tubules (score 3), has high-grade nuclei (score 3) and has a mitotic rate of at least twenty-four mitoses per ten high powered cardenas (score 3, HPF equals 0.54 mm). In addition to the recognizable mitotic figures there are innumerable apoptotic figures present. These features in the core biopsy suggest a poorly differentiated carcinoma. The tumor forms a vaguely demarcated nodule and between the tumor islands there is ischemic degenerative change that has been replaced by reactive fibrosis. This diagnosis is malignant and concordant with the imaging findings. As such, surgical referral for definitive treatment will be needed. A member of the Radiology department will contact the patient with the biopsy results and follow-up recommendations. Impressions 07/09/2020 11:59 EST Successful ultrasound-guided core biopsy with documentation of mammographic sonographic correlation. Dr. Tim was present throughout the procedure. I have personally reviewed the images and the above interpretation and agree with the findings. Narrative 07/09/2020 11:59 EST MA BREAST POST BIOPSY CLIP LEFT, US BREAST BIOPSY LEFT ??07/09/2020 11:30 AM Signs And Symptoms/Comments: ?? Left breast new palpable mass at 10:00. Comparison: Multiple prior mammograms and ultrasounds, the last of which was on 07/07/2020. History: The patient recently presented with a clinically suspicious palpable mass. Mammography and sonography demonstrated a suspicious corresponding mass at 10:00, 9 cm from the nipple. Ultrasound-guided core biopsy was requested. Procedure: Written and verbal consents were obtained from the patient for ultrasound guided core biopsy of a 1.9 x 1.9 x 2.1 cm irregular palpable mass in the left breast at 10:00, 9 cm from the nipple. ??The risks, benefits and alternatives to this procedure were discussed with the patient. Once the patient's full name, date of , and side of biopsy were confirmed, the area of concern was rescanned, the lesion in question was targeted and the patient's skin was marked. Site verification and skin marking was performed according to established site marking procedure. A safety timeout was performed. The skin of the left breast was prepped and draped in the usual sterile fashion. Using ultrasound guidance, ??10 cc of buffered 1% lidocaine was used for local anesthesia. The skin was incised with a #11 blade. 5 ??core biopsies were obtained using a coaxial system with a 14-gauge Achieve biopsy needle inserted through a 13-gauge introducer. A HydroMark type III coil-shaped clip was deployed in the area biopsied. Postprocedure digital mammography was performed in the CC and MLO 3- D/synthesized 2-D projections; demonstrating the clip to be located within the periphery of the lesion. The patient tolerated procedure well, without immediate postprocedural complications. The patient was told that our biopsy lawn care specialist will notify her of the results via phone in 3-5 business days. Bianca Lopes MD [facility] US ORDERABLES * SURGICAL PATHOLOGY (07/09/2020 11:38 EST) Addendum Comment ESTROGEN AND PROGESTERONE RECEPTOR RESULTS Tissue submitted: Paraffin embedded tissue block labelled [id number] (A1) from [facility] Immunohistochemical assays for estrogen receptors (SP1, Mellott) and progesterone receptors (16, Leica) have been performed on this specimen. Intranuclear receptor complexes were visualized on tissue sections using an HRP polymer immunohistochemical technique. This assay is intended for paraffin-embedded tissue fixed in 10% neutral buffered formalin for 6-72 hours. Results are reported as negative (<1% nuclear staining) or positive with the proportion of positive cells noted. Estrogen receptor expression in <5% of tumor cells may not have a strong interaction with estrogen receptor modulators such as Tamoxifen. Reference: ASCO-CAP Guideline Recommendations for IHC testing of ER and VA. J Clin Oncol 2010;28:6973-7850. NOTE: One or more of the reagents [...] performance characteristics have been determined by [facility] and/or by the referring laboratory. The positive and negative controls worked appropriately. If immunoperoxidase staining has been performed on alcohol fixed cytology specimens, which has not been fully validated, the assays should be interpreted with caution and correlated with clinical data. This laboratory is certified under the Clinical Laboratory Improvement Amendments of 1988 (CLIA-88) as qualified to perform high complexity clinical laboratory testing. INTERPRETATION: A. BREAST, LEFT, 10 O'CLOCK, 9 CM FROM NIPPLE, ULTRASOUND-GUIDED NEEDLE CORE BIOPSY: - Adenocarcinoma, invasive. - Negative for estrogen receptors. - Negative for progesterone receptors (in less than 1% of tumor cells). - Nuclear staining intensity: Weak. COMMENT: Cold ischemic time and total formalin fixation time appropriate: Yes Internal control benign epithelium is appropriately staining for estrogen and progesterone receptors HER2 RECEPTOR RESULTS Tissue submitted: Paraffin embedded tissue block labelled [id number] (A1) from [facility] Fixative: Formalin This immunohistochemical assay is intended to paraffin-embedded tissue fixed in 10% neutral buffered formalin for 6-72 hours; 18-24 hour fixation with maximum tissue thickness of 3-4 millimeters is recommended for best assay performance. Time from biopsy to placement in formalin (cold ischemic time) should be minimized to less than one hour. Her2 should not be performed on alcohol fixed tissues. The assay was performed under appropriate conditions according to the retort load expediter's instructions with appropriate assay and tissue controls using an Anti-Her2 (4B5) Rabbit Monoclonal Antibody (Mellott). Her2 Scoring Guidelines (invasive tumor component only) 0 negative No staining or membrane staining in less than 10% of cells 1+ negative Faint partial membrane staining in more than 10% of cells 2+ weakly positive Moderate complete membrane staining in more than 10% of cells 3+ positive Strong complete membrane staining in more than 10% of cells Reference: ASCO-CAP Recommendations for Her2 Testing. J Clin Oncol 2018; epub (www.jco.org November 01, 2017) *FDA statement Assay results Her2 IHC Score: 1+ Tumor location: Left Breast ; 10 o'clock Cold ischemic time and total formalin fixative time appropriate: Yes Cells with complete membrane staining: None Membrane staining intensity: Faint to moderate, granular Partial membrane staining: Present in 20% of cells Cytoplasmic staining: Faint Staining pattern: Heterogeneous Staining in benign epithelium: Absent The Her2 assay performed is interpreted as: NEGATIVE 07/11/2020 11:33 [facility] Addendum electronically signed by Marquise Green MD on 07/11/2020 at 1133 Final Diagnosis A. BREAST, LEFT, 10 O'CLOCK, 9 CM FROM NIPPLE, ULTRASOUND-GUIDED NEEDLE CORE BIOPSY: - Adenocarcinoma, invasive, ductal type, nuclear grade 3. See comment. 07/11/2020 11:33 [facility] Diagnosis Comment The needle core biopsy of the left breast contains a high-grade invasive ductal carcinoma. The tumor does not form any tubules (score 3), has high grade nuclei (score 3) and has a mitotic rate of at least 24 mitoses per 10 high-power cardenas (score 3, HPF equals 0.54 mm). In addition to the recognizable mitotic figures there are innumerable apoptotic figures present. These features in the core biopsy suggest a poorly differentiated carcinoma. The tumor forms a vaguely demarcated nodule and between the tumor islands there is ischemic degenerative change that has been replaced by reactive fibrosis. Estrogen and progesterone receptor assays and Her2 studies have been ordered and results will be issued in an Addendum. 07/11/2020 11:33 [facility] Attestation By the signature below, the attending physician certifies that they have 1) personally conducted a gross and/or microscopic examination of the described specimen(s), and/or personally interpreted the results of laboratory testing of the described specimen(s), and 2) personally rendered or confirmed the above diagnosis. 07/11/2020 11:33 [facility] at 1412 Clinical History Left Breast irregular palpable mass 10:00 9cmfn gary [id number] 07/11/2020 11:33 [facility] Gross Description A. Received in formalin labelled with proper patient identification (initials H, R) and left breast irregular palpable mass 10:00 9 cm fn gary 19 x 19 x 21 mm out of body at 11:15 am are 5 yellow and white fibrofatty tissue cores (0.4 cm to 1.6 cm in length, and averaging 0.2 cm in diameter). Entirely submitted in A1 and A2. Time removed from patient: 11:15 a.m. 07/09/2020 Time placed in formalin: 11:15 a.m. 07/09/2020 Time out of formalin: 12:30 a.m. 07/10/2020 SOCORRO BOWENS(ASCP) 07/09/2020 14:12 07/11/2020 11:33 [facility] Performing Lab [facility] 07/11/2020 11:33 [facility] Scanned Images 07/11/2020 11:33 [facility] Tissue ENTIRE LEFT BREAST / Unknown 07/09/2020 11:38 EST 07/09/2020 12:51 EST Comment:Left Breast irregula r palpable mass 10:00 9cmfn gary [id number] out of body at 11:15am Bianca Lopes MD PATHOLOGY ORDERABL ES [facility] [address] [place] [address] documented in this encounter Visit Diagnoses Diagnosis Breast mass Lump or mass in breast Breast lump on left side at 10 o'clock position Lump or mass in breast documented in this encounter Administered Medications Inactive Administered Medications - up to 3 most recent administrations Medication Order MAR Action Action Date Dose Rate Site lidocaine 1 % 20 mL, sodium bicarbonate 8.4 % 2 mL 22 mL, local infiltration, Administer over 1 Hours, Once in imaging, 1 dose, Starting on Tue07/09/20 at 1044, Until Tue07/09/20 at 1238, Routine Given 07/09/2020 11:38 EST 10 mL povidone-iodine (BETADINE) 10 % external solution 30 mL 30 mL, topical, Once in imaging, 1 dose, Starting on Tue07/09/20 at 1044, Until Tue07/09/20 at 1138 Given 07/09/2020 11:38 EST 30 mL documented in this encounter Care Teams Auto Porter Relationship Specialty Start Date End Date Batsheva Lira FNP [address] [phone] PCP - General 02/19/20 07/21/22 documented as of this encounter
--- OUTSIDE RECORDS SUMMARY | 2023-12-10 17:46 | XMS_ITS | Encounter Summary ---
Author Organization [facility] Address [address] [place] [address] Care Team Providers Care Patrol Mother Name Role Phone Batsheva Lira JOHN Primary Care Provider [phone] Reason for Visit * Radiology Services (Routine) - Closed Specialty Diagnoses / Procedures Referred By Jen gonzáles Referred To Contact Diagnoses Breast lump Procedures US BREAST COMPLETE LEFT US BREAST LIMITED LEFT Bianca Lopes MD [address] [place] [phone] Referral ID Status Reason Start Date Expiration Date Visits Re quested Visits Authorized [id number] Closed 06/23/2020 1 1 Encounter Details Date Type Department Care Team (Latest Contact Info) Description 07/07/2020 13:35 EST - 07/07/2020 23:59 EST Hospital Encounter Medical Center Breast Imaging Ultrasound - [facility] [address] [place] [address] Breast lump Discharge Disposition: Home or Self Care Social [...] 13:34 EST documented as of this encounter Medications [...] [facility] Surgical Oncology - [address] [id number] Maeve Morales, DO [address] [place] [address], [facility] [address] [place] [phone] documented as of this encounter Procedures Procedure Name Priority Date/Time Associated Diagnosis Comments US BREAST COMPLETE LEFT Routine 07/07/2020 15:09 EST Breast lump documented in this encounter Results * (ABNORMAL) US BREAST COMPLETE LEFT (07/07/2020 15:09 EST) Anatomical Region Laterality Modality Breast Left Ultrasound 07/07/2020 15:4 5 EST Impressions 07/07/2020 15:45 EST Overall impression: Highly suggestive of malignancy. The findings and recommendations were discussed with the patient after the study by Dr. Lorene Miles. She has scheduled ultrasound guided core biopsy for the near future. The patient will ??also be notified of breast imaging results via a lay letter from radiology. Portions of this document may have been prepared with speech recognition software or keyboard data center manager techniques. Minor irregularities or keyboarding misprints may be present. Narrative 07/07/2020 15:45 EST MA BREAST DIAGNOSTIC POLLY BILATERAL, US BREAST COMPLETE LEFT ??07/07/2020 2:00 PM Signs and Symptoms/Comments: ?? left breast fixed 4cm x 4cm area 10:00. right breast screening. Comparison: Mammogram from 06/30/18 and prior Technique: Bilateral mammograms: Synthetic 2-D and 3-D views with CAD of each breast Left breast ultrasound: The entire breast including all 4 quadrants, the subareolar region, in the axilla were evaluated with real-time technique supplemented by color Doppler. Findings: Right breast: The breast tissue is almost entirely fat. There are no dominant masses or suspicious calcifications. No interval change. Impression right breast: BI-RADS Category Assessment 1: Negative findings. Left breast mammogram: The breast tissue is almost entirely fat. There is a palpable mass in the upper inner aspect of the breast and in this area there is a new oval mass with irregular margins. There are a few tiny scattered nodular areas in the breast which have a similar appearance to the prior studies. Normal-appearing lymph nodes are seen in the axilla. Left breast ultrasound: At 10:00, 9 cm from the nipple in the region of the palpable mass there is a hypoechoic solid-appearing mass with irregular margins which is antiparallel. Measures 1.9 x 1.9 x 2.1 cm. There is some minimal flow within it with color Doppler. This corresponds with the mass seen on mammography. At 3:00 7 cm from the nipple there is a small hypoechoic oval well-circumscribed mass which is likely a small cyst measuring 4 x 3 x 3 mm. There are benign-appearing lymph nodes in the axilla. Impression left breast: BI-RADS Category Assessment 5: Highly suggestive of malignancy. The new palpable mass is suspicious on mammography and ultrasound, located at 10:00. Ultrasound-guided core biopsy with clip placement is recommended. Bianca Lopes MD IMG US ORDERABLES documented in this encounter Visit Diagnoses Diagnosis Breast lump Lump or mass in breast documented in this encounter Care Teams Patrol Mother Relationship Specialty Start Date End Date Batsheva Lira FNP [address] [phone] PCP - General 02/19/20 07/21/22 documented as of this encounter
--- OUTSIDE RECORDS SUMMARY | 2023-12-10 17:46 | XMS_ITS | Encounter Summary ---
Author Organization [facility] Address [address] [place] [address] Care Team Providers Care Roentgenologist Name Role Phone Batsheva Lira JOHN Primary Care Provider [phone] Reason for Referral * Radiology Services (Routine) - New Request Specialty Diagnoses / Procedures Referred By Jen gonzáles Referred To Contact Diagnoses Breast lump Procedures MA BREAST DIAGNOSTIC POLLY BILATERAL Bianca Lopes MD [address] [place] [phone] Referral ID Status Reason Start Date Expiration Date V isits Requested Visits Authorized [id number] New Request 06/23/2020 1 1 Reason for Visit * Radiology Services (Routine) - New Request Specialty Diagnoses / Procedures Referred By Jen gonzáles Referred To Contact Diagnoses Breast lump Procedures MA BREAST DIAGNOSTIC POLLY BILATERAL Bianca Lopes MD [address] [place] [phone] Referral ID Status Reason Start Date Expiration Date V isits Requested Visits Authorized [id number] New Request 06/23/2020 1 1 Encounter Details Date Type Department Care Team (Latest Contact Info) Description 07/07/2020 13:35 EST - 07/07/2020 23:59 EST Hospital Encounter Medical Center Breast Imaging Mammography - [facility] [address] [place] [address] Breast lump Discharge Disposition: Home or Self [...] 13:34 EST documented as of this encounter Last Filed Vital Signs Vital Sign Reading Time Taken Comments Blood Pressure - - Pulse - - Temperature - - Respiratory Rate - - Oxygen Saturation - - Inhaled Oxygen Concentration - - Weight - - Height 165.1 cm (5' 5) 07/07/2020 1358 EST Body Mass Index - - documented in this encounter Medications at Time [...] [facility] Surgical Oncology - [facility] [address] [place] [address] Andrew Maeve M, DO [address] [facility], [facility] [address] [place] [address] documented as of this encounter Procedures Procedure Name Priority Date/Time Associated Diagnosis Comments MA BREAST DIAGNOSTIC POLLY BILATERAL Routine 07/07/2020 14:11 EST Breast lump documented in this encounter Results * (ABNORMAL) MA BREAST DIAGNOSTIC POLLY BILATERAL (07/07/2020 14:11 EST) Anatomical Region Laterality Modality Breast Bilateral Mammography 07/07/2020 15:4 5 EST Impressions 07/07/2020 15:45 [...] with speech recognition software or keyboard data analysis assistant techniques. Minor irregularities or keyboarding misprints may [...] placement is recommended. Bianca Lopes MD IMG MAMMOGRAPHY OR DERABLES documented in this encounter Visit Diagnoses Diagnosis Breast lump Lump or mass in breast documented in this encounter Care Teams Roentgenologist Relationship Specialty Start Date End Date Batsheva Lira FNP [address] [phone] PCP - General 02/19/20 07/21/22 documented as of this encounter
--- OUTSIDE RECORDS SUMMARY | 2023-12-10 17:46 | XMS_ITS | Encounter Summary ---
Author Organization [facility] Address [address] [place] [address] Care Team Providers Care Traffic Court Referee Name Role Phone Batsheva Lira JOHN Primary Care Provider [phone] Encounter Details Date Type Department Care Team (Latest Contact Info) Description 06/16/2020 Transcribe Orders [facility] [address] [place] [address] Mare Echeverria MD [address] [facility] Medical Office Building, [address] [place] [address] Female stress incontinence (Primary Dx) Social History Tobacco Use Types [...] [facility] Surgical Oncology - [facility] [address] [place], [place] [id number] Maeve Morales, DO [address] [facility], [facility], [address] [place] [phone] documented as of this encounter Visit Diagnoses Diagnosis Female stress incontinence- Primary documented in this encounter Care Teams Traffic Court Referee Relationship Specialty Start Date End Date Batsheva Lira FNP [address] [phone] PCP - General 02/19/20 07/21/22 documented as of this encounter
--- OUTSIDE RECORDS SUMMARY | 2023-12-10 17:46 | XMS_ITS | Encounter Summary ---
Author Organization [facility] Address [address] [place] [address] Care Team Providers Care Manager Of Internal Audit Name Role Phone Batsheva Lira JOHN Primary Care Provider [phone] Encounter Details Date Type Department Care Team (Latest Contact Info) Description 06/19/2020 Travel Social History Tobacco Use Types Packs/Day Years Used Date Smoking Tobacco: Every Day Cigarettes Smokeless Tobacco: Never Comments:pt also vapes Alcohol [...] have Coronavirus / COVID-19? No / Unsure 06/19/2020 14:56 EST documented as of this encounter Plan of Treatment Upcoming Encounters Date Type Department Care Team (Late st Contact Info) Description 01/31/2024 13:40 EDT Office Visit [facility] Surgical Oncology - [address] [address] Maeve Morales, DO [address] [facility], [facility], [address] [place] [address] documented as of this encounter Visit Diagnoses Not on filedocumented in this encounter Care Teams Manager Of Internal Audit Relationship Specialty Start Date End Date Batsheva Lira FNP [address] [phone] PCP - General 02/19/20 07/21/22 documented as of this encounter
--- OUTSIDE RECORDS SUMMARY | 2023-12-10 17:46 | XMS_ITS | Encounter Summary ---
Author Organization [facility] Address [address] [place] [address] Care Team Providers Care Canteen Attendant Name Role Phone Batsheva Lira JOHN Primary Care Provider [phone] Reason for Visit * Reason Comments Fall Pt to ED after falli ng while getting into car, fell backwards, hit back of head on ground. +Neck pain, jaw pain. C-collar placed. No LOC. Encounter Details Date Type Department Care Team (Late st Contact Info) Description 06/19/2020 14:57 EST - 06/19/2020 17:03 EST Emergency [facility] Emergency Department - [facility] [address] [place] [address] Isai Adames, PA-C [address] [facility], [facility], [address] 1 [place] [address] Closed head injury, initial encounter (Primary Dx); Acute strain of neck muscle, initial encounter Discharge Disposition: Home or Self Care Social [...] 14:56 EST documented as of this encounter Last Filed Vital Signs Vital Sign Reading Time Taken Comments Blood Pressure 144/82 06/19/2020 1647 EST Pulse 87 06/19/2020 1647 EST Temperature 36.4 ??C (97.5 ??F) 06/19/2020 1455 EST Respiratory Rate 14 06/19/2020 1647 EST Oxygen Saturation 99% 06/19/2020 1647 EST Inhaled Oxygen Concentration - - Weight 77.1 kg (170 lb) 06/19/2020 1455 EST Height 165.1 cm (5' 5) 06/19/2020 1455 EST Body Mass Index 28.29 06/19/2020 1455 EST documented in this encounter Discharge Instructions * Discharge Instructions* Isai Adames PA-C - 06/19/2020 16:38 EST Recommend using Tylenol and/or ibuprofen as needed for headache and muscle aches. You may use additional Robaxin as a muscle relaxant for the neck muscles. If for any reason symptoms worsen such as persistent vomiting uncontrollable headaches or any other concerning symptoms please return to the ERor see your primary care provider documented in this encounter Medications at Time [...] 06/19/2020 08/08/2020 documented as of this encounter Ordered Prescriptions Prescription Sig Dispensed Refills Start Date End Da te methocarbamoL (ROBAXIN) 750 mg tablet Take 1 Tab by mouth 4 times daily. 20 Tab 06/19/2020 08/08/2020 documented in this encounter Discharge Disposition Disposition Code Departure Means Destination Home or Self Long Term documented in this encounter ED Notes * Laurie Polanco RN - 06/19/2020 1619 EST Pt returned from CT scan. Endorses improvement in headache and jaw pain following administration oftylenol. * Isai Adames PA-C - 06/19/2020 1543 EST Images from the original note were not included. DOS: 06/19/2020 Chief Complaint Patient presents with ??? Fall Pt to ED after falling while getting into car, fell backwards, hit back of head on ground. +Neck pain, jaw pain. C-collar placed. No LOC. HPI The patient is a 44 y.o. female who presents today with Fall (Pt to ED after falling while getting into car, fell backwards, hit back of head on ground. +Neck pain, jaw pain. C-collar placed. No LOC.) 44-year-old female arrives status post fall on ice. Patient states she was walking on ice in a parking lot when she slipped and fell back taking the brunt of the fall onto her head. She felt confusedinitially after the fall hitting the back of her head she also complains of pain in her neck especially with shoulder shrugging. She has no numbness or paresthesia she states she is feeling about thesame after the fall. No previous head injuries nausea without vomiting she has no other injuries Review of Systems Review of Systems Constitutional: Positive for fatigue. Negative for chills, diaphoresis and fever. HENT: Negative for dental problem, sore throat and trouble swallowing. Respiratory: Negative for cough, chest tightness and shortness of breath. Cardiovascular: Negative for chest pain and leg swelling. Gastrointestinal: Negative for abdominal distention, abdominal pain, diarrhea, nausea and vomiting. Endocrine: Negative for polydipsia, polyphagia and polyuria. Genitourinary: Negative for difficulty urinating, dysuria and urgency. Musculoskeletal: Positive for neck pain and neck stiffness. Negative for arthralgias, back pain, gait problem, joint swelling and myalgias. Skin: Negative for color change, pallor, rash and wound. Allergic/Immunologic: Negative for immunocompromised state. Neurological: Negative for dizziness, syncope, weakness and headaches. Hematological: Negative for adenopathy. Does not bruise/bleed easily. Psychiatric/Behavioral: Positive for confusion (Now resolved). Negative for behavioral problems andsuicidal ideas. The patient's past medical, family and social history was reviewed and updated as needed. No Known Allergies Vital Signs Temp: 36.4 ??C (97.5 ??F) Temp src: Temporal Pulse: 93 Resp: 16 SpO2: 100 % BP: (!) 146/88 BP MAP: 102 mm Hg BP Device: BP Machine BP Patient Position: Sitting BP Cuff Location: Right arm O2 Device: None (Room air) Physical Exam Vitals signs and nursing note reviewed. Constitutional: General: She is not in acute distress. Appearance: Normal appearance. She is well-developed. She is not toxic-appearing or diaphoretic. HENT: Head: Normocephalic and atraumatic. Jaw: Tenderness and pain on movement present. Right Ear: Tympanic membrane and external ear normal. Left Ear: Tympanic membrane and external ear normal. Eyes: Conjunctiva/sclera: Conjunctivae normal. Pupils: Pupils are equal, round, and reactive to light. Neck: Musculoskeletal: Normal range of motion. Thyroid: No thyromegaly. Cardiovascular: Rate and Rhythm: Normal rate and regular rhythm. Heart sounds: Normal heart sounds. Pulmonary: Effort: Pulmonary effort is normal. No respiratory distress. Breath sounds: Normal breath sounds. No wheezing. Abdominal: Palpations: Abdomen is soft. Musculoskeletal: Normal range of motion. General: No deformity. Skin: General: Skin is warm. Neurological: Mental Status: She is alert and oriented to person, place, and time. Cranial Nerves: No cranial nerve deficit. Psychiatric: Behavior: Behavior normal. RESULTS EKG orders: None Radiology orders: CT HEAD WO CONTRAST CT CERVICAL SPINE WO CONTRAST Imaging Reviewed. I have independently reviewed the images. There are no significant abnormalities Procedures ED COURSE A medical screening exam was performed. I had shared decision making regarding performing a CT scanwith this patient. I did discuss with her that we could watch the patient she appeared to be stablebut given her persistent neck and head pain she requested the CT scan. This was performed and was read with no acute findings. Patient was discharged home after the CT results Final diagnoses: None DISPOSITION: No disposition on file The patient's pain was managed to an adequate level weighing risk vs. benefit of further medications. Upon departure from the Emergency Department, the patient's pain was on a zero to ten scale. Any further pain treatment will be at the discretion of the provider following up with the patient based on their clinical assessment. Condition at departure from the Emergency Department: Good PCP: JOHN Orosco was available for supervision. 06/19/2020 15:43 No flowsheet data found. * Laurie Polanco RN - 06/19/2020 5129 EST SOCORRO Adames at bedside to assess. documented in this encounter Plan of Treatment Upcoming Encounters Date Type Department Care Team (Late st Contact Info) Description 01/31/2024 13:40 EDT Office Visit [facility] Surgical Oncology - [address] [id number] Maeve Morales, [address] [place] [address], [address] 2 [place] [phone] documented as of this encounter Procedures Procedure Name Priority Date/Time Associated Diagnosis Comments CT HEAD WO CONTRAST STAT 06/19/2020 1 6:[address] CERVICAL SPINE WO CONTRAST STAT 06/19/2020 16:17 EST POCT CSN BARCODE URINE PREG TEST STAT 06/19/2020 15:55 EST POCT TEST, CLINITEK ORDER STAT 06/19/2020 15:50 EST POCT TEST, CLINITEK STAT 06/19/2020 15:50 EST documented in this encounter Results * CT CERVICAL SPINE WO CONTRAST (06/19/2020 16:17 EST) Anatomical Region Laterality Modality Computed Tomogra phy 06/19/2020 16:4 4 EST Impressions 06/19/2020 16:44 EST No acute abnormality. I have personally reviewed the images and the above interpretation and agree with the findings. Narrative 06/19/2020 16:44 EST EXAM: CT CERVICAL SPINE WO CONTRAST HISTORY: neck pain TECHNIQUE: CT cervical spine without contrast. Structured report code: NR.CT37 COMPARISON: None. FINDINGS: SURGICAL CHANGES: None. FRACTURES: None. ALIGNMENT: There is mild straightening of the normal cervical lordosis, which may be positional. BONES: Degenerative changes are present throughout the cervical spine most notable at C5-6. No concerning lesions. INTERVERTEBRAL DISCS: Degenerative disc height loss is most notable at C5-6. JOINTS: Minimal facet arthropathy. Degenerative changes are present at the anterior atlantoaxial joint. No joint space widening to suggest ligamentous injury. SPINAL CANAL: No significant stenosis. NEURAL FORAMINA: No significant stenosis. LUNG APICES: Clear. EXTRASPINAL SOFT TISSUES: Unremarkable. VISIBLE INTRACRANIAL CONTENTS: Please refer to dedicated CT head report. Procedure Note Kyle Villarreal MD - 06/19/2020 EXAM: CT CERVICAL SPINE WO CONTRAST HISTORY: neck pain TECHNIQUE: CT cervical spine without contrast. Structured report code:NR.CT37 COMPARISON: None. FINDINGS: SURGICAL CHANGES: None. FRACTURES: None. ALIGNMENT: There is mild straightening of the normal cervical lordosis, which may bepositional. BONES: Degenerative changes are present throughout the cervical spine mostnotable at C5-6. No concerning lesions. INTERVERTEBRAL DISCS: Degenerative disc height loss is most notable at C5-6. JOINTS: Minimal facet arthropathy. Degenerative changes are present at theanterior atlantoaxial joint. No joint space widening to suggestligamentous injury. SPINAL CANAL: No significant stenosis. NEURAL FORAMINA: No significant stenosis. LUNG APICES: Clear. EXTRASPINAL SOFT TISSUES: Unremarkable. VISIBLE INTRACRANIAL CONTENTS: Please refer to dedicated CT head report. IMPRESSION No acute abnormality. I have personally reviewed the images and the above interpretation andagree with the findings. Isai Adames PA-C [facility] [place] * CT HEAD WO CONTRAST (06/19/2020 16:17 EST) Anatomical Region Laterality Modality Head Computed Tomogra phy 06/19/2020 16:4 2 EST Impressions 06/19/2020 16:42 EST Small scalp hematoma overlying the posterior calvarium without underlying fracture or intracranial hemorrhage. I have personally reviewed the images and the above interpretation and agree with the findings. Narrative 06/19/2020 16:42 EST EXAM: CT HEAD WO CONTRAST HISTORY: accidental fall; Full fall on head from slip on pavement head and neck pain rule out bleed ?? TECHNIQUE: CT head without contrast. Structured report code: NR.CT01 COMPARISON: None. FINDINGS: PARENCHYMA: No acute infarct. ??No parenchymal hemorrhage. No mass or midline shift. EXTRA-AXIAL SPACES: No extra-axial collection. No extra-axial mass. VENTRICULAR SYSTEM: Normal size and configuration. No obstructive hydrocephalus. VESSELS: Limited evaluation without IV contrast. Normal density in the dural venous sinuses. BONES: No concerning lesions. No evidence of fracture. ORBITS: No significant abnormality. PARANASAL SINUSES/MASTOID AIR CELLS: A mucus retention cyst is present in the left sphenoid sinus EXTRACRANIAL SOFT TISSUES: A small amount of scalp edema is present over the posterior occiput with no underlying osseous abnormality. Procedure Note Kyle Villarreal MD - 06/19/2020 EXAM: CT HEAD WO CONTRAST HISTORY: accidental fall; Full fall on head from slip on pavement head andneck pain rule out bleed TECHNIQUE: CT head without contrast. Structured report code: NR.CT01 COMPARISON: None. FINDINGS: PARENCHYMA: No acute infarct. No parenchymal hemorrhage. No mass or midline shift. EXTRA-AXIAL SPACES: No extra-axial collection. No extra-axial mass. VENTRICULAR SYSTEM: Normal size and configuration. No obstructive hydrocephalus. VESSELS: Limited evaluation without IV contrast. Normal density in the dural venoussinuses. BONES: No concerning lesions. No evidence of fracture. ORBITS: No significant abnormality. PARANASAL SINUSES/MASTOID AIR CELLS: A mucus retention cyst is present in the left sphenoid sinus EXTRACRANIAL SOFT TISSUES: A small amount of scalp edema is present over the posterior occiput withno underlying osseous abnormality. IMPRESSION Small scalp hematoma overlying the posterior calvarium without underlyingfracture or intracranial hemorrhage. I have personally reviewed the images and the above interpretation andagree with the findings. Isai Adames PA-C IMG CT ORDERABLES * POCT CSN BARCODE URINE PREG TEST (06/19/2020 15:55 EST) Hold Hold 06/19/2020 18:01 EST [facility] Urine URINE SPECIMEN COLLECTION, CLEAN CATCH / Unknown Urine Collect / Unknown 06/19/2020 15:55 EST 06/19/2020 15:55 EST Isai Adames PA-C LAB INFO SERVICE AND SUPPORT & PHONE RESULT Performing Organization Address [facility] de Phone Number [facility] [address] [place] [address] * POCT TEST, CLINITEK (06/19/2020 15:50 EST) UPT Result Negative Negative 06/19/2020 16:01 [facility] precision aircraft structure assembler ID [id number] 06/19/2020 16:01 [facility] HN LAB COMMENT (CLINITEK, UPT) Test performed at Emergency Department 06/19/2020 16:01 [facility] Comment:False negative resul ts may occur in women who are beyond 5-8 weeks gestation. Diagnosis of should be based on a correlation of test results with typical clinical signs and symptoms. Urine URINE SPECIMEN COLLECTION, CLEAN CATCH / Unknown 06/19/2020 15:50 EST 06/19/2020 16:01 EST Isai Adames PA-C POINT OF CARE TEST O RDERABLES Performing Organization Address [facility] Co de Phone Number [facility] [address] [place] [phone] documented in this encounter Visit Diagnoses Diagnosis Closed head injury, initial encounter- Primary Acute strain of neck muscle, initial encounter documented in this encounter Administered Medications Inactive Administered Medications - up to 3 most recent administrations Medication Order MAR Action Action Date Dose Rate Site acetaminophen (TYLENOL) 500 mg tablet 1 dose, Starting on Klaudia 06/19/20 at 1527, Until Klaudia 06/19/20 at 1532 acetaminophen (TYLENOL) tablet 1,000 mg 1,000 mg, oral, NOW X1, 1 dose, On Klaudia 06/19/20 at 1530, STAT Given 06/19/2020 15:32 EST 1,000 mg documented in this encounter Historical Medications * This list may reflect changes made after this encounter. Medication Sig Dispensed Refills Start Date End Date ethinyl estradiol-etonogestrel (NUVARING) 0.12-0.015 mg/[address] Each vaginally every 28 days. Wear continuously for 3 weeks; remove for 1 week; repeat with new ring, as directed. 08/08/2020 MELOXICAM ORAL Take by mouth as needed. 08/13/2020 escitalopram oxalate (LEXAPRO) 10 mg tablet Take 30 mg by mouth daily. 12/03/2022 added in this encounter Active and Recently Administered Medications Times are shown in EST. Scheduled Medication Order 06/17/2020 06/18/2020 06/19/2020 acetaminophen (TYLENOL) tablet 1,000 mg (COMPLETED) 1,000 mg, oral, NOW X1, 1 dose, On Klaudia 06/19/20 at 1530, STAT 1532 (Given - Provid er: Laurie Polanco RN) documented in this encounter Care Teams Canteen Attendant Relationship Specialty Start Date End Date Batsheva Lira FNP [facility] [address] [phone] PCP - General 02/19/20 07/21/22 documented as of this encounter
--- OUTSIDE RECORDS SUMMARY | 2023-12-10 17:46 | XMS_ITS | Encounter Summary ---
Author Organization [facility] Address [address] [place] [address] Care Team Providers Care Call Center Agent Name Role Phone Batsheva Lira JOHN Primary Care Provider [phone] Encounter Details Date Type Department Care Team (Latest Contact Info) Description 07/09/2020 Travel Social History Tobacco Use Types Packs/Day [...] 10:19 EST documented as of this encounter Plan of Treatment Upcoming Encounters Date Type Department Care Team (Late st Contact Info) Description 01/31/2024 13:40 EDT Office Visit [facility] Surgical Oncology - [facility] [address], [place] [address] Maeve Morales, DO 111 [facility], [facility], Level [address] [place] [address] documented as of this encounter Visit Diagnoses Not on filedocumented in this encounter Care Teams Call Center Agent Relationship Specialty Start Date End Date Batsheva Lira FNP [address] [phone] PCP - General 02/19/20 07/21/22 documented as of this encounter
--- OUTSIDE RECORDS SUMMARY | 2023-12-10 17:46 | XMS_ITS | Encounter Summary ---
Author Organization [facility] Address [address] [place] [address] Care Team Providers Care Apprise Counselor Name Role Phone Batsheva Lira JOHN Primary Care Provider [phone] Reason for Referral * Radiology Services (Routine) - New Request Specialty Diagnoses / Procedures Referred By Jen gonzáles Referred To Contact Diagnoses Breast mass Procedures MA BREAST POST BIOPSY CLIP LEFT Bianca Lopes MD [address] [place] [address] Referral ID Status Reason Start Date Expiration Date V isits Requested Visits Authorized [id number] New Request 07/08/2020 1 1 Reason for Visit * Radiology Services (Routine) - New Request Specialty Diagnoses / Procedures Referred By Jen gonzáles Referred To Contact Diagnoses Breast mass Procedures MA BREAST POST BIOPSY CLIP LEFT Bianca Lopes MD [address] [place] [address] Referral ID Status Reason Start Date Expiration Date V isits Requested Visits Authorized [id number] New Request 07/08/2020 1 1 Encounter Details Date Type Department Care Team (Latest Contact Info) Description 07/09/2020 10:21 EST - 07/09/2020 23:59 EST Hospital [facility] Breast Imaging Mammography - [facility] [place] [address], [place] [address] Breast mass Discharge Disposition: Home or Self Care Social [...] Info) Description 01/31/2024 13:40 EDT Office Visit [facility] Surgical Oncology - [address] [phone] Maeve Morales, DO 111 [facility], Level [address] [place] [address] documented as of this encounter Procedures Procedure Name Priority Date/Time Associated Diagnosis Comments MA BREAST POST BIOPSY CLIP LEFT Routine 07/09/2020 11:38 EST Breast mass documented in this encounter Results * MA BREAST POST BIOPSY CLIP LEFT (07/09/2020 11:38 EST) Anatomical Region Laterality Modality Breast Left Mammography 07/09/2020 11:5 9 EST Addenda Addendum by [...] The patient was told that our biopsy care consultant will notify her of the results via phone in 3-5 business days. Bianca Lopes MD [facility]ER[facility]LES documented in this encounter Visit Diagnoses Diagnosis Breast mass Lump or mass in breast documented in this encounter Care Teams Apprise Counselor Relationship Specialty Start Date End Date Batsheva Lira FNP [facility] [address] [phone] PCP - General 02/19/20 07/21/22 documented as of this encounter
--- OUTSIDE RECORDS SUMMARY | 2023-12-10 17:46 | XMS_ITS ---
Author Organization [facility] Address [address] [place] [address] Care Team Providers Care Miner Assistant Name Role Phone Pam Germain MD Unavailable [phone] Janay Duran APRN Primary Care Provider Unava ilable Oncology Status:Discharged (Closed) Start date:02/06/2021 Enrollment date:02/06/2021 End date:08/10/2021 Overview 08/10: check chart after 08/07 appt to see next step since she has completed 8 cycles Continued Care and Services Coordination
--- OUTSIDE RECORDS SUMMARY | 2023-12-10 17:46 | XMS_ITS | Encounter Summary ---
Author Organization [facility] Address [address] [place] [address] Care Team Providers Care Industrial Engineering Technician Name Role Phone Batsheva Lira JOHN Primary Care Provider [phone] Reason for Visit * Reason Onset Date Comments COVID-19 06/20/2020 Encounter Details Date Type Department Care Team (Late st Contact Info) Description 06/20/2020 Telephone [facility] [employer] [address] [place] [address] Mare Echeverria MD [address] [facility], Medical Office Building, [address] [place] [address] COVID-19 Social History Tobacco Use Types Packs/Day Years [...] 14:56 EST documented as of this encounter Miscellaneous Notes * Telephone Encounter - Prabha Hopson - 06/20/2020 1521 EST Called patient to schedule for covid test before an upcoming procedure. Patient already got scheduled for 07/03. documented in this encounter Plan of Treatment Upcoming Encounters Date Type Department Care Team (Late st Contact Info) Description 01/31/2024 13:40 EDT Office Visit [facility] Surgical Oncology - [address] [phone] Maeve Morales, [address], [address] [place] [phone] documented as of this encounter Visit Diagnoses Not on filedocumented in this encounter Care Teams Industrial Engineering Technician Relationship Specialty Start Date End Date Batsheva Lira FNP [address] [place] [phone] PCP - General 02/19/20 07/21/22 documented as of this encounter
--- OUTSIDE RECORDS SUMMARY | 2023-12-10 17:46 | XMS_ITS | Encounter Summary ---
Author Organization [facility] Address [address] [place] [address] Care Team Providers Care Interior Surface Insulation Worker Name Role Phone Batsheva Lira JOHN Primary Care Provider [phone] Reason for Visit * Reason Onset Date Comments Follow-up 07/10/2020 Encounter Details Date Type Department Care Team (Late st Contact Info) Description 07/10/2020 Telephone [facility] Breast [facility] Mammography - Main [address] [id number] Elle Barksdale Follow-up Social History Tobacco Use Types Packs/Day [...] encounter Miscellaneous Notes * Telephone Encounter - Elle Barksdale - 07/10/2020 0846 EST Patient is doing fine day after biopsy. documented in this encounter Plan of Treatment Upcoming Encounters Date Type Department Care Team (Late st Contact Info) Description 01/31/2024 13:40 EDT Office Visit [facility] Surgical Oncology - [address] [phone] Maeve Morales, [address] [facility], Level [address] [place] [phone] documented as of this encounter Visit Diagnoses Not on filedocumented in this encounter Care Teams Interior Surface Insulation Worker Relationship Specialty Start Date End Date Batsheva Lira FNP [address] [phone] PCP - General 02/19/20 07/21/22 documented as of this encounter
--- OUTSIDE RECORDS SUMMARY | 2023-12-10 17:46 | XMS_ITS | Encounter Summary ---
Author Organization [facility] Address [address] [place] [address] Care Team Providers Care Antique Furniture Reproducer Name Role Phone Batsheva Lira JOHN Primary Care Provider [phone] Reason for Visit * Reason Onset Date Comments COVID-19 06/11/2020 Encounter Details Date Type Department Care Team (Late st Contact Info) Description 06/11/2020 Telephone [facility] [employer] [address] [place] [address] Mare Echeverria MD [address] [facility] Medical Office Building, [address] [place] [address] COVID-19 Social History Tobacco Use Types Packs/Day Years Used Date Smoking Tobacco: Never Assessed Interpersonal Safety Answer Date Record ed Physically Hurt Never 02/19/2020 Verbally Threaten Not on file 02/19/2020 Sex and Gender Information Value Date Recorded Sex Assigned at Not on file Gender Identity Female 02/19/2020 9:10 EDT Sexual Orientation Not on file documented as of this encounter Miscellaneous Notes * Telephone Encounter - Sruthi Crockett - 06/11/2020 0836 EST Patient called to say procedure was moved to 07/09. Online Communications Manager rescheduled covid testing for 06/02. documented in this encounter Plan of Treatment Upcoming Encounters Date Type Department Care Team (Late st Contact Info) Description 01/31/2024 13:40 EDT Office Visit [facility] Surgical Oncology - [address] [id number] Maeve Morales, [address] [facility], [address] [place] [phone] documented as of this encounter Visit Diagnoses Not on filedocumented in this encounter Care Teams Antique Furniture Reproducer Relationship Specialty Start Date End Date Batsheva Lira FNP [address] [phone] PCP - General 02/19/20 07/21/22 documented as of this encounter
[2023-12-10] MEDS: Fluorescein STRIPS 100/BOX 1 MG OP (19:10)
[2023-12-10] MEDS: Ibuprofen 600 MG TAB PO (19:10)
--- NOTE | 2023-12-10 19:33 | ED.GENADUL_ITS ---
Discharge Plan Disposition Patient Disposition: Home Discharge Details Clinical Impression: Laceration of periorbital area Primary Care Provider: None,None ED Provider: Carolyn Gtz Home Meds and New Rx's Prescriptions: Continued escitalopram oxalate [Lexapro] 20 mg tablet 20 mg PO DAILY Ozempic 1 mg/dose (4 mg/3 mL) pen injector 1 mg subcut QWEEK Discharge Instructions Instructions: Laceration Infection Additional Instructions: Dermabond is covering the wound, please refer to Dermabond instructions listed Use sunscreen after Dermabond adhesive has dissolved May use Mederma or vitamin E oil topically over area to prevent scarring and wear hat when outside for the next 6 months at least Return with spreading redness, fever, vision change, or should any new concerns arise. May take ibuprofen and Tylenol as needed for discomfort Discharge Data Discharge Date/Time-TO BE ENTERED AT DEPARTURE: 12/10/23 20:19 HPI General Date/Time Provider Initiated Documentation: 12/10/23 18:04 . HPI Narrative: This 48-year-old female presents with report of laceration to her right upper thigh region. She states she is trying out a new [place] on the scope was close to her face and when it kicked back at hit the top of her eye. She denies any changes in vision. Unsure regarding tetanus. Denies any chance of . Event occurred approximately an hour and a half prior to arrival per patient. He has a mild headache but denies any significant head trauma. Related Data Home Medications ?Medication ?Instructions ?Recorded ?Confirmed escitalopram oxalate 20 mg tablet 20 mg PO DAILY 12/10/23 12/10/23 (Lexapro) semaglutide 1 mg/dose (4 mg/3 mL) 1 mg subcut QWEEK 12/10/23 12/10/23 subcutaneous pen injector (Ozempic) Allergies Allergy/AdvReac Type Severity Reaction Status Date / Time oxycodone AdvReac Mild Agitation Verified 12/10/23 17:38 General Stated Complaint: Laceration CAROLYN: 4 Exam Narrative Exam Narrative: Alert and oriented 48-year-old female in no acute distress, at the 12 o'clock position on upper eyelid region there is approximately half inch laceration. Superficial in nature. Pupil equal round reactive to light and accommodation, fluorescein stain performed negative Rich sign, visual acuity within normal limits, 2012 left eye, 20/20 right eye, 20/20 bilaterally. Pupils equal round reactive to light and accommodation, extraocular muscles intact, no significant orbital tenderness, no proptosis, no spreading erythema, no midline cervical spine tenderness. No significant bruising Course Vital Signs Vital signs: Vital Signs Temperature 35.6 C L 12/10/23 17:35 Pulse 86 12/10/23 17:35 Respiratory Rate 16 12/10/23 17:35 Blood Pressure 128/79 12/10/23 17:35 Pulse Oximetry 98 12/10/23 17:35 Temperature 35.6 C L 12/10/23 17:35 Pulse 86 12/10/23 17:35 Respiratory Rate 16 12/10/23 17:35 Respiratory Effort Normal 12/10/23 17:37 Blood Pressure 128/79 12/10/23 17:35 Pulse Oximetry 98 12/10/23 17:35 Oxygen Delivery Method Room Air 12/10/23 17:35 Oxygen Flow Rate 0 12/10/23 17:35 Pain Level 4 12/10/23 17:35 Medical Decision Making Alert and oriented 48-year-old female in no acute distress with reassuring ophthalmological assessment including fluorescein stain without evidence of globe rupture, given Tylenol for discomfort, and wound above the eye cleansed and Dermabond applied. Tylenol and ibuprofen as needed for pain. I did consider CT imaging of the orbit, however patient has minimal pain and I think the risk of radiation outweighs the benefit at this time. There is no proptosis. Return precautions were reviewed and patient expressed understanding visual acuity reviewed from triage assessment Quality:SDOH Health Related Social Needs: No Data to Display PFSH All Active Problems (Updated 12/10/23 @ 19:38 by SOCORRO Parra) Laceration of periorbital area (Acute) Social History Smoking/Tobacco Use Status: Current every day Tobacco Type: e-cigarettes Smoking risk assessment performed?: Yes Alcohol Intake: never Drug use: Never Substance use type: does not use Housing: house Do you feel safe at home: Yes Do you feel safe in your relationship?: Yes
--- NOTE | 2023-12-13 16:02 | NUR.NOTE ---
Patient called stating that her eye is still swollen, unable to open it, looks like the glue has come off and there is some clear fluid coming out of the cut. She stated that she was at Urgent Care yesterday and they started her on antibiotics 4x a day. She has started this. SHe was told to go to Urgent Care or return to the ED. Unable to evaluate over the phone without seeing the patient. Nursing Note:
== END 2023-12-10 20:19 | disposition home or self-care (01) ==
PROVIDERS: Emergency Provider Physician Assistant
DX: S01.111A Laceration without foreign body of right eyelid and periocular area, initial encounter (principal); F17.290 Nicotine dependence, other tobacco product, uncomplicated; W20.8XXA Other cause of strike by thrown, projected or falling object, initial encounter; Y93.59 Activity, other involving other sports and athletics played individually; Y92.89 Other specified places as the place of occurrence of the external cause; Z23 Encounter for immunization
CPT/HCPCS: 12011; 90471; 90715; 99283

== ENCOUNTER 2024-05-04 01:09 | Outpatient (CLI) | payer BC, SELFPAY ==
--- OUTSIDE RECORDS SUMMARY | 2024-05-04 01:24 | XMS_ITS | Encounter Summary ---
Author Organization [facility] Address [address] [place] [address] Care Team Providers Care Documentation Consultant Name Role Phone Pam Germain MD Unavailable [phone] Janay Duran APRN Primary Care Provider [phone] Encounter Details Date Type Department Care Team (Late st Contact Info) Description 01/31/2024 13:30 EDT Ancillary Procedure [facility] Surgical Oncology - [facility] [place] [address] [place], [place] [phone] Social History Tobacco Use Types Packs/Day Years [...] 02/19/2020 Verbally Threaten Not on file 02/19/2020 Comments No Sex and Gender Information Value Date Recorded Sex Assigned at Not on file Legal Sex Female 8:59 EDT Gender Identity Female 02/19/2020 9:10 EDT Sexual Orientation Not on file documented as of this encounter Functional Status * Are you deaf or do you have serious difficulty hearing? Answer Date of Assessment Author No 12/24/2020 17:15 EDT Amarilys Valentin, RN * Are you blind or do you have serious difficulty seeing, even when wearing glasses? Answer Date of Assessment Author No 12/24/2020 17:15 Amarilys Michaud RN * Do you have serious difficulty walking or climbing stairs? (5 years old or older) Answer Date of Assessment Author No 12/24/2020 17:15 OSMANIT Amarilys Valentin RN * Do you have difficulty dressing or bathing? (5 years old or older) Answer Date of Assessment Author No 12/24/2020 17:15 EDT Amarilys Valentin RN * Because of a physical, mental, or emotional condition, do you have difficulty doing errands alone such as visiting a doctor's office or shopping? (15 years old or older) Answer Date of Assessment Author No 12/24/2020 17:15 EDAmarilys Puente RN documented as of this encounter Mental Status * Because of a physical, mental, or emotional condition, does this person have serious difficulty concentrating, remembering, or making decisions? Answer Entry Date Author Yes 10/07/2023 16:04 EDT Amarilys Valentin RN documented in this encounter Plan of Treatment Upcoming Encounters Date Type Department Care Team (Late st Contact Info) Description 02/28/2025 13:00 EDT Office Visit [facility] Surgical Oncology - [address] [address] Maeve Morales DO [address] [place] [address], [address] [place] [phone] documented as of this encounter Procedures Procedure Name Priority Date/Time Associated Diagnosis Comments [facility] BRE[facility] BRE[facility] ONLY Routine 01/31/2024 15:24 EDT documented in this encounter Results * [facility] BREAST BREAST [facility] ONLY (01/31/2024 15:24 EDT) Narrative [facility] POINT OF CARE - 01/31/2024 15:24 EDT This is a non-reportable exam. Maeve Morales DO [facility] POC ORDERABLES Final Result [facility] POINT OF CARE documented in this encounter Visit Diagnoses Not on filedocumented in this encounter Care Teams Documentation Consultant Relationship Specialty Start Date End Date Janay Duran APRN [address] [place] [address] [address] [place] [phone] PCP - General Family Medicine - Primary Care 07/22/22 02/12/24 Pam Germain MD [address] [place] [address] [address] [place] [phone] Medical Oncology 03/22/22 documented as of this encounter
--- OUTSIDE RECORDS SUMMARY | 2024-05-04 01:24 | XMS_ITS | Encounter Summary ---
Author Organization [facility] Address [address] [place] [address] Care Team Providers Care Atomic Process Engineer Name Role Phone aPm Germain MD Unavailable [phone] Janay Duran APRN Primary Care Provider Reason for Visit * Reason Onset Date Comments Appointment Related 05/13/2023 Encounter Details Date Type Department Care Team (Late st Contact Info) Description 05/13/2023 Telephone [facility] Surgical Oncology - [address] [phone] Maeve Morales, DO [address] [facility] [address] [place] [address] Appointment Related Social History Tobacco [...] No 12/24/2020 17:15 Amarilys Michaud RN * Are you blind or do you have serious difficulty seeing, even when wearing glasses? Answer Date of Assessment Author No 12/24/2020 17:15 Amarilys Michaud RN * Do you have serious difficulty walking or climbing stairs? (5 years old or older) Answer Date of Assessment Author No 12/24/2020 17:15 Amarilys Michaud RN * Do you have difficulty dressing or bathing? (5 years old or older) Answer Date of Assessment Author No 12/24/2020 17:15 Amarilys Michaud RN * Because of a physical, mental, or emotional condition, do you have difficulty doing errands alone such as visiting a doctor's office or shopping? (15 years old or older) Answer Date of Assessment Author No 12/24/2020 17:15 Amarilys Michaud RN documented as of this encounter Mental Status * Because of a physical, mental, or emotional condition, do you have serious difficulty concentrating, remembering, or making decisions? (5 years old or older) Answer Entry Date Author No 12/24/2020 17:15 Amarilys Michaud RN documented in this encounter Miscellaneous Notes [...] [facility] - [address] [phone] Maeve Morales DO [address] [phone] documented as of this encounter Visit Diagnoses Not on filedocumented in this encounter Care Teams Atomic Process Engineer Relationship Specialty Start Date End Date Janay Duran, PROCESS IMPROVEMENT ANALYST [address] [place] [phone] PCP - General Family Medicine - Primary Care 07/22/22 02/12/24 Pam Germain MD [address] [place] [phone] Medical Oncology 03/22/22 documented as of this encounter
--- OUTSIDE RECORDS SUMMARY | 2024-05-04 01:24 | XMS_ITS ---
Author Organization [facility] Address [address] [place] [address] Care Team Providers Care Hand Cell Tuber Name Role Phone Pam Germain MD Unavailable [phone] Inez Corado DO Primary Care Provid er Active Problems Patient Care Coordination No te Formatting of this note migh t be different from the original. Verified [employer] Medicaid trans#[id number] Bhavani Garcia 06/27/2020 14:08 2021-Verified ACO Attributed [place] Medicaid TCN:[id number] Anastacio Bradfordalannah 05/20/2021 9:55 Problem Noted Date Diagnosed Date Hepatic steatosis 03/26/2021 Hypertension 03/26/2021 History of anxiety 03/26/2021 Breast cancer in female ([facility]) 12/24/2020 Malignant neoplasm of upper- inner quadrant of breast in female, estrogen receptor negative ([facility]) 07/15/2020 Cancer Staging:Clinical:Stage IIB(cT2, cN0, cM0, G3, ER-, PA-, HER2-) - Signed by Maeve Morales DO [...] treatments are documented for this patient in [facility]. Treatments may have been administered in another system. Lifetime Dose Tracking * Chemical Lifetime Dose Automatic Entry Manual Entr y doxorubicin 237.31 mg/m2 (475.2 mg) 237.31 mg/m2 (475 .2 mg) 0 mg/m2 (0 mg) Dose Area Product 1,248 mGy-cm2 1,248 mGy-cm2 0 mGy-cm 2 Resolved Problems Problem Noted Date Diagnosed Date Resolved Date Sepsis ([facility]) 11/21/2020 11/23/2020 Fever and chills 11/21/2020 11/23/2020
--- OUTSIDE RECORDS SUMMARY | 2024-05-04 01:24 | XMS_ITS | Encounter Summary ---
Author Organization [facility] Address [address] [place] [address] Care Team Providers Care Cable Braider Name Role Phone Pam Germain MD Unavailable [phone] Janay Duran APRN Primary Care Provider [phone] Inez Corado DO Primary Care Provid er Reason for Referral * Radiology Services (Routine/Next Available) - Authorization Not Required Specialty Diagnoses / Procedures Referred By Jen gonzáles Referred To Contact Diagnoses RLQ abdominal pain History of breast cancer Procedures CT ABDOMEN PELVIS WO CONTRAST Maeve Morales DO [address] [facility] [address] [place] [address] Phone: tel: fax: [facility] Referral ID Status Reason Start Date Expiration Date Visits Requested Visits Authorized [id number] Authorization Not Required 02/08/2024 1 1 Reason for Visit * Reason Onset Date Comments Complex Medical Problems 01/31/2024 Encounter Details Date Type Department Care Team (Late st Contact Info) Description 01/31/2024 Orders Only [facility] Surgical Oncology - [address] [phone] Maeve Morales DO [address] [facility] [address] [place] [phone] RLQ abdominal pain (Primary Dx); Personal history of breast cancer; History of breast cancer Social History Tobacco Use Types Packs/Day [...] of Assessment Author No 12/24/2020 17:15 Amarilys Michaud, RADHA * Do you have serious difficulty walking [...] Info) Description 02/28/2025 13:00 EDT Office Visit [facility] Surgical Oncology - [facility] [address] [place], [place] [phone] Maeve Morales, DO [address] [facility], [address] [place] [address] documented as of this encounter Results * CT ABDOMEN PELVIS WO CONTRAST (02/22/2024 10:17 EDT) Anatomical Region Laterality Modality Body, Abdomen, Pelvis, Abdomen and Pelvis Computed Tomography 02/22/2024 12:0 7 EDT Impressions 02/22/2024 12:07 EDT No acute abnormalities in the abdomen or pelvis. I have personally reviewed the images and the above interpretation and agree with the findings. [id number] Narrative 02/22/2024 12:[address] ABDOMEN PELVIS WO CONTRAST ??02/22/2024 10:02 AM Signs and Symptoms/Comments: RLQ abdominal pain; New RLQ abd pain, history of breast cancer Technique: CT of the abdomen and pelvis was performed without intravenous contrast. This CT used either dose modulation and/or iterative reconstruction techniques to lower radiation dose. Comparison: CTA abdomen pelvis 08/18/2021 Findings: Lower chest: Bilateral breast implants in place. ?? Liver: Focal fatty infiltration near the falciform ligament. No contour deforming lesion. Gallbladder: Surgically absent. Bile ducts: No biliary ductal dilation. Spleen: No contour deforming lesion. Pancreas: No ductal dilation. Adrenal glands: No adrenal mass. Kidneys, ureters, bladder: Bilateral nonobstructive nephrolithiasis. No contour deforming mass. No hydroureteronephrosis. The bladder is unremarkable. Reproductive organs: Unremarkable for age. Bowel: No evidence of obstruction. The appendix measures up to 0.7 cm, without surrounding inflammation or appendicolith present. No acute inflammatory changes. Peritoneal cavity: No free fluid or free air. Lymph nodes: No lymphadenopathy. Vascular: Calcifications of the nonaneurysmal abdominal aorta. Abdominal wall: No bowel-containing hernia. Musculoskeletal: No concerning osseous lesion. Reinsurance Claims Analyst: No additional findings. Resulting Agency Comment [id number] Procedure Note Khalif Ca MD - 02/22/2024 CT ABDOMEN PELVIS WO CONTRAST 02/22/2024 10:02 AM Signs and Symptoms/Comments: RLQ abdominal pain; New RLQ abd pain, historyof breast cancer Technique: CT of the abdomen and pelvis was performed without intravenouscontrast. This CT used either dose modulation and/or iterative reconstructiontechniques to lower radiation dose. Comparison: CTA abdomen pelvis 08/18/2021 Findings: Lower chest: Bilateral breast implants in place. Liver: Focal fatty infiltration near the falciform ligament. No contourdeforming lesion. Gallbladder: Surgically absent. Bile ducts: No biliary ductal dilation. Spleen: No contour deforming lesion. Pancreas: No ductal dilation. Adrenal glands: No adrenal mass. Kidneys, ureters, bladder: Bilateral nonobstructive nephrolithiasis. Nocontour deforming mass. No hydroureteronephrosis. The bladder isunremarkable. Reproductive organs: Unremarkable for age. Bowel: No evidence of obstruction. The appendix measures up to 0.7 cm,without surrounding inflammation or appendicolith present. No acuteinflammatory changes. Peritoneal cavity: No free fluid or free air. Lymph nodes: No lymphadenopathy. Vascular: Calcifications of the nonaneurysmal abdominal aorta. Abdominal wall: No bowel-containing hernia. Musculoskeletal: No concerning osseous lesion. Reinsurance Claims Analyst: No additional findings. IMPRESSION No acute abnormalities in the abdomen or pelvis. I have personally reviewed the images and the above interpretation andagree with the findings. [id number] us Maeve Morales DO IMG CT ORDERABLES Final Res ult documented in this encounter Visit Diagnoses Diagnosis RLQ abdominal pain- Primary Abdominal pain, right lower quadrant Personal history of breast cancer Personal history of malignant neoplasm of breast History of breast cancer Personal history of malignant neoplasm of breast RLQ abdominal pain Abdominal pain, right lower quadrant History of breast cancer Personal history of malignant neoplasm of breast documented in this encounter Care Teams Cable Braider Relationship Specialty Start Date End Date Janay Duran, JULIAN [address] [place] [address] [address] [place] [phone] PCP - General Family Medicine - Primary Care 07/22/22 02/12/24 Inez Corado DO [address] [place] [phone] PCP - General Family Medicine - Primary Care 02/13/24 Pam Germain MD [address] [place] [address] 2 [place] [phone] Medical Oncology 03/22/22 documented as of this encounter
--- OUTSIDE RECORDS SUMMARY | 2024-05-04 01:24 | XMS_ITS | Encounter Summary ---
Author Organization [facility] Address [address] [place] [address] Care Team Providers Care Personnel Arbitrator Name Role Phone Pam Germain MD Unavailable [phone] Janay Duran APRN Primary Care Provider Inez Corado DO Primary Care Provid er Reason for Visit * Reason Onset Date Comments Appointment Related 12/07/2022 Encounter Details Date Type Department Care Team (Late st Contact Info) Description 12/07/2022 Telephone [facility] Plastic, Reconstructive & Cosmetic Surgery - [address], [address] [place] [id number] Juanito Carcamo MD [address] [phone] Appointment Related Social History Tobacco [...] Assessment Author No 12/24/2020 17:15 Amarilys Michaud, RN * Do you have serious difficulty [...] Info) Description 02/28/2025 13:00 EDT Office Visit [facility] Surgical Oncology - [address] [phone] Maeve Morales, [address] [place] [phone] documented as of this encounter Visit Diagnoses Not on filedocumented in this encounter Care Teams Personnel Arbitrator Relationship Specialty Start Date End Date Janay Duran, FRONT DESK ASSISTANT [address] [place] [phone] PCP - General Family Medicine - Primary Care 07/22/22 02/12/24 Inez Corado DO [address] [place] [phone] PCP - General Family Medicine - Primary Care 02/13/24 Pam Germain MD [address] [place] [phone] Medical Oncology 03/22/22 documented as of this encounter
--- OUTSIDE RECORDS SUMMARY | 2024-05-04 01:24 | XMS_ITS | Continuity of Care Document ---
Author Organization [facility] Address [address] [place] [address] Care Team Providers Care Air Commodore Name Role Phone JAYNA JIMENEZ Primary Care Provider Assessment No assessment recorded. Plan of Treatment Reminders Order Date Submit Date Provider Last Modified By Organization Details Last Modified Time Details Appointments None record ed. Lab None record ed. Referral None record ed. Procedures None record ed. Surgeries None record ed. Imaging None record ed. Medication Orders neomyc in-rubina ymyxin -hydro sharmila 3.5 mg-10, 000 unit/m L-1 % ear drops, susp 024 03/28/20 24 [id number], [address] [place], [address], 19:38:41 Patient TargetsNo targets recorded. Patient Instructions Encounter Date Encounter Id Patient Instructions Last Modified By Organization Details Last Modified Time 03/28/2024 [id number] 1. Earwax was removed from the ear today. The ear canal itself does appear to be a bit irritated. The eardrum looks healthy. I have sent prescription for an antibiotic eardrop you will use for the next 7 to 10 days. I do expect symptoms to begin to improve. If they are not improving or having worsening please seek follow-up as needed. [email or web address] Not available 03/28/2024 19:38:59 Reason for Referral None Reported. Problems Name Problem SNOMED Code Status Onset Date Resolution Date Notes Provider Name and Address Organization Details Recorded Time Otitis externa of right ear 8933292408564265 Active [address], [place], [address], [facility] 4 19:37:56 Cough 24052733 Active [address], [place], [address], [facility] 4 09:59:04 Problem Notes None recorded. Procedures Surgical History Date Name Laterality Status Provider Name and Address Organization Details Recorded Time 4 Cerumen Removal completed Mila Briggs RN [facility] 03/28/2024 19:42:31 Nebulizer tx completed [address], [place], [address], [facility] 05/20/2023 11:13:37 Imaging Results None recorded. Procedure Notes None recorded. Medical Equipment None Reported. Allergies No known drug allergies Medications Name Sig Start Date Stop Date Status Note LastModified by Organization Details LastModified Time prednisone 20 mg tablet Take 2 tablets every day by oral route in the morning for 5 days. 03/28 completed Not Available Not Available Not Available cephalexin 500 mg capsule Take 1 capsule 4 times a day by oral route for 7 days. 03/28 completed Not Available Not Available Not Available albuterol sulfate HFA 90 mcg/actuati on aerosol inhaler Inhale 2 puffs every 4 hours by inhalatio n route for 14 days. 2023 active Not Available Not Available Not Avai lable neomycin-po lymyxin-hyd rocort 3.5 mg-10,000 unit/mL-1 % ear drops,susp INSTILL 4 DROPS INTO AFFECTED EAR(S) BY OTIC ROUTE 3 TIMES PER DAY x 7-10 days 2023 active Not Available Not Available Not Avai lable trazodone active Not Available Not Magali ilable Not Available Lexapro active Not Available Not Avail able Not Available Ozempic active Not Available Not Avail able Not Available Vitals Date Recorded Body height Body mass index (BMI) Body weight Respiratory rate Oxygen saturation Oxygen saturation in Arterial blood by Pulse oximetry Heart rate Body temperature Systolic blood pressure Diastolic blood pressure Provider Name and Address Organization Details Last Updated DateTime 4 167.64 cm 25 kg/m2 48704.8 2 g 17 /min 98 % 98 % 82 /min 98.2 [degF] 115 mm[Hg] 78 mm[Hg] Mila Briggs RN [facility] 4 19:21:02 Social History Question Answer Notes LastModified by Organizat ion Details LastModified Time Tobacco Smoking Status Former Smoker RADHA Aguirre, [facility] 03/28/2024 19:21:37 Do You Or Have You Ever Used E-cigarettes Or Vape? Current User Of Electronic Cigarettes Information not available 03/28/2024 When Did You Quit Smoking? 1-5yearssincela [email or web address] Information not available 03/28/2024 What Was The Date Of Your Most Recent Tobacco Screening? 03/28/2024 Information not available 03/28/2024 Has Tobacco Cessation Counseling Been Provided? Yes [email or web address] Information not available 05/19/2023 On What Date Was Tobacco Cessation Counseling Provided? 03/28/2024 Information not available 03/28/2024 Do You Or Have You Ever Used Any Other Forms Of Tobacco Or Nicotine? Yes Information not available 03/28/2024 Sex: Female Functional Status None recorded. Mental Status None recorded. Family History Nothing Reported. Medical History No medical history recorded. Gynecological HistoryNo gynecological history recorded. Obstetrics History GPAL:G 0 P 0 0 0 0 Immunizations Vaccine Type Date Status Note Provider Nam e and Address Organization Details Recorded Time COVID-19, mRNA, LNP-S, PF, 30 mcg/0.3 mL dose 1 completed RADHA Aguirre, [facility] 05/23/2023 10:13:05 COVID-19, mRNA, LNP-S, PF, 30 mcg/0.3 mL dose 1 completed RADHA Aguirre, [facility] 05/23/2023 10:13:09 influenza, unspecified formulation 3 completed Mila Briggs RN null, [facility] 05/23/2023 10:13:20 pneumococcal polysaccharide PPV23 1 completed Mila Briggs RN null, [facility] 05/23/2023 10:13:39 Tdap 4 completed Mila Briggs RN null, [facility] 12/12/2023 14:09:59 Past Encounters Encounter ID Performer Location Encounter Start Date Encounter Closed Date Diagnosis/Indication Diagnosis SNOMED-CT Code Diagnosis ICD10 Code [id number] HENNY VERGARA PA-C [address],[facility] [address] [place] [address] 03/28/2024 18:40:16 03/28/2024 19:39:54 Otitis externa of right ear 1905706446 207498 H60.91 Health Concerns Section Related Observation LastModified by Organization Detai ls LastModified Time None Recorded Concern Status LastModified by Organization Details LastModified Time None Recorded Payers Encounter Date Sequence Insurance Name Policy Number Policy Raymond Covered Member ID Raymond Member ID Guarantor Name 03/28/2024 1 [place] [facility] Austin Veras [id number] Austin Veras Notes Date Note Type Note Provider Name and Address Organization Details Recorded Time 03/28/2024 text/html Austin is a 48-year-old female who presents with right ear pain that may have began a few days ago when she felt a little bit of an itchiness in her ear in her throat. Today she is really had the first signs of discomfort. She has not had drainage from the ear. She has not had any ill symptoms. She has been eating and drinking per usual. She has had strep several times in her life. She reports that when she swallows she feels like her ear hurts but she does not have pain with swallowing in the throat itself. She denies history of cerumen impaction. Think she may have a only 1 ear infection in her adult life. Did not have them frequently as a child. Was more prone to strep. [address], [place], [address], [facility]. 03/28/2024 19:51:05 OBGyn Episode No OBEpisode recorded.
--- OUTSIDE RECORDS SUMMARY | 2024-05-04 01:24 | XMS_ITS | Encounter Summary ---
Author Organization [facility] Address [address] [place] [address] Care Team Providers Care Automotive Internet Sales Consultant Name Role Phone Pam Germain MD Unavailable [phone] Janay Duran APRN Primary Care Provider Reason for Visit * Reason Comments Procedure Bilateral 3D nipple tattoo Encounter Details Date Type Department Care Team (Latest Contact Info) Description 03/10/2023 13:00 EDT Procedure visit [facility] Plastic, Reconstructive & Cosmetic Surgery - [address], [address] [place] [address] Oksana Wilkins PA-C [address] [place] [address] [place] [phone] S/P breast reconstruction (Primary Dx) Social [...] Amarilys Michaud RN documented in this encounter Patient Instructions * Patient Instructions* [...] in 3 weeks Call our office at [phone] with any concerns documented in this encounter Progress Notes * Batsheva MonteroCHILANGO - 03/10/2023 1300 EDT Pre-procedure time out [...] Upcoming Encounters Date Type Department Care Team (Mason Martino Info) Description 02/28/2025 13:00 EDT Office Visit [facility] Surgical Oncology - [address] [phone] Maeve Morales DO [address] [phone] documented as of this encounter Visit Diagnoses Diagnosis S/P breast reconstruction- Primary Breast replaced by other means documented in this encounter Care Teams Automotive Internet Sales Consultant Relationship Specialty Start Date End Date Janay Duran, NUCLEAR EQUIPMENT SALES ENGINEER [address] [place] [phone] PCP - General Family Medicine - Primary Care 07/22/22 02/12/24 Pam Germain MD [address] [place] [phone] Medical Oncology 03/22/22 documented as of this encounter
--- OUTSIDE RECORDS SUMMARY | 2024-05-04 01:24 | XMS_ITS | Encounter Summary ---
Author Organization [facility] Address [address] [place] [address] Care Team Providers Care Gas Substation Operator Name Role Phone Pam Germain MD Unavailable [phone] Janay Duran APRN Primary Care Provider [phone] Reason for Visit * Reason Comments Follow-up Encounter Details Date Type Department Care Team (Late st Contact Info) Description 01/31/2024 13:40 EDT Office Visit [facility] Surgical Oncology - [address] [phone] Maeve Morales, DO [address] [facility], [facility] [address] [place] [phone] Malignant 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, estrogen receptor negative (HCC-CMS) (Primary Dx) Social History Tobacco Use Types Packs/Day Years Used Date Smoking Tobacco: Former Cigarettes 1 30 0 09/17/1990 - 09/17/2020 Smokeless Tobacco: Never Tobacco Cessation:Counseling Given: Yes Comments:Smoked on and off when smoked- started [...] Answer Entry Date Author Yes 10/07/2023 16:04 Amarilys Michaud RN documented in this encounter Progress Notes * Maeve Morales, DO - 01/31/2024 1340 EDT Subjective: Patient ID: Austin Veras is an 48 y.o. female. Chief Complaint Patient presents with Follow-up HPI Austin is seen in 1-year follow-up for her left breast cancer. As you recall this is a patient that had a physical examination finding at her SAMPLE HAND visit and was sent in for diagnostic imaging in June 2020. This showed a concerning lesion in the upper pole of the left breast and biopsy returned back a nuclear grade 3 invasive ductal adenocarcinoma. This was a triple negative breast cancer. Becaus e of the size and the triple negative phenotype Austin was initiated on neoadjuvant chemotherapy. She completed that chemotherapeutic regimen in November 2020 and went on to undergo bilateral skin sparingmastectomies and a left sentinel lymph node biopsy in December 2020. This was done with an immediate t issue jig bore operator reconstruction. Unfortunately her pathology did not show a significant response to the chemotherapy with her final tumor size measuring 2.5 cm with 0 of 2 lymph nodes positive. Becauseof the less than optimal response she was placed on 6 months of capecitabine. Unfortunately in May of 2021 her right tissue jig bore operator unexpectedly ruptured and she had to go back to the OR to haveit replaced. She has subsequently undergone implant reconstruction and is very happy with her cosmetic outcome. Austin has been doing a great job with diet and exercise and was also started on Ozempicand has lost a lot of weight. Additionally her liver enzymes have normalized and her blood sugars are much more stable than they have ever been in the past. Patient Active Problem List Diagnosis 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, estrogen receptor negative (HCC-CMS) Breast cancer in female (HCC-CMS) Hepatic steatosis Hypertension History of anxiety Past Medical History: Diagnosis Date Activity, other involving cardiorespiratory exercise Noted 07/19/2022: stretching exercises and weights Anxiety Noted 07/19/2022: controlled w/ meds Back pain Noted 07/19/2022: degenerative disc disease Bladder incontinence Cancer (HCC-CMS) Noted 07/19/2022: breast Diabetes mellitus, type 2 (HCC-CMS) Noted 07/19/2022: not currently on meds, last A1c 6.4, f/u appointment in 3 months Exercise involving housework Exercise involving walking Noted 07/19/2022: can climb 2 FOS w/ no SOB Head trauma 06/19/20 fell on ice. No loss of consciosness History of chemotherapy History of general anesthesia Noted 07/19/2022: no complications History of kidney stones Noted 07/19/2022: hx of, no issues now TMJ syndrome Urgency of urination stress inc. Past Surgical History: Procedure Laterality Date BLADDER REPAIR 2021 BREAST SURGERY expanders, and inplants CHOLECYSTECTOMY MASTECTOMY Bilateral OTHER SURGICAL HISTORY 1998, 2011 epidural with childbirth Family History Problem Relation Age of Onset Lung Cancer Mother Social Social History Tobacco Use Smoking status: Former Current packs/day: 0.00 Average packs/day: 1 pack/day for 30.0 years (30.0 ttl pk-yrs) Types: Cigarettes Start date: 09/17/1990 Quit date: 09/17/2020 Years since quittin.3 Smokeless tobacco: Never Tobacco comments: Smoked on and off when smoked- started as a teen Vaping Use Vaping status: Former Substances: Nicotine (3mg or none) Devices: Disposable Substance Use Topics Alcohol use: Not Currently Drug use: Not Currently Types: Marijuana Current Outpatient Medications on File Prior to Visit Medication Sig Dispense Refill escitalopram oxalate (LEXAPRO) 20 mg tablet TAKE 1 & 1/2 TABLET BY MOUTH EVERY DAY FOR 90 DAYS meloxicam (MOBIC) 15 mg tablet Take 1 Tablet by mouth daily. semaglutide (OZEMPIC) 0.25 mg or 0.5 mg (2 mg/3 mL) pen injector Inject 0.5 mg into the skin once aweek. 0.25 mg x4 week and then increase to 0.5 mg traZODone (DESYREL) 100 mg tablet as needed. (Patient not taking: Reported on 01/09/2024) No current facility-administered medications on file prior to visit. Allergies Allergen Reactions Ondansetron Other (See Comments) Dose to be limited to under 16mg daily while on Lexapro as EKG showed QTC as 0.4 Oxycodone Other (See Comments) Made her hyper Wound Dressings Sorbaview (pt states port-a-cath dressing [...] either breast mound. Ultrasound is undertaken of both reconstructed breasts and axilla and shows no worrisome findings today. There are no axillary masses. Assessment: Austin is seen in the office today in 1 year follow-up for her left triple negative breast cancer. She has been doing very well over the last year. She is excited about her weight loss. She is 3 yearsout from diagnosis so I will start to follow with her on an annualized basis. Thank you for allowing me to participate in the care of this very pleasant patient. Plan: (C50.212, Z17.1) Malignant 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, estrogen receptor negative (HCC-CMS) (primary encounter diagnosis) Maeve Morales DO No orders of the defined types were placed in this encounter. documented in this encounter Plan of Treatment Upcoming Encounters Date Type Department Care Team (Late st Contact Info) Description 02/28/2025 13:00 EDT Office Visit [facility] Surgical Oncology - [address] [phone] Maeve Morales DO 111 [facility], [address] [place] [phone] documented as of this encounter Procedures Procedure Name Priority Date/Time Associated Diagnosis Comments ORDERS - SCANNED 02/17/2024 14:16 EDT documented in this encounter Results * ORDERS - SCANNED (02/17/2024 14:16 EDT) 02/17/2024 14:1 6 EDT us Scan 2 Theater Education Teacher ADMISSION ORDERABLES Final Result documented in this encounter Visit Diagnoses Diagnosis Malignant 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, estrogen receptor negative (HCC-CMS)- Primary documented in this encounter Care Teams Gas Substation Operator Relationship Specialty Start Date End Date Janay Duran APRN [address] [phone] PCP - General Family Medicine - Primary Care 07/22/22 02/12/24 Pam Germain MD [address] [phone] Medical Oncology 03/22/22 documented as of this encounter
--- OUTSIDE RECORDS SUMMARY | 2024-05-04 01:24 | XMS_ITS | Encounter Summary ---
Author Organization [facility] Address [address] [place] [address] Care Team Providers Care Solutions Executive Security Name Role Phone Pam Germain MD Unavailable [phone] Janay Duran APRN Primary Care Provider Reason for Visit * Reason Comments Follow-up Encounter Details Date Type Department Care Team (Late st Contact Info) Description 03/15/2023 10:00 EDT Office Visit [facility] Hematology & Oncology - [address] [phone] Pam Germain MD [address] [facility], [address] [place] [phone] Malignant neoplasm of upper-inner quadrant of left [...] Reading Time Taken Comments Blood Pressure 120/76 03/15/2023945 EDT Pulse 85 03/15/202346 EDT Temperature 36.3 ??C (97.3 ??F) 03/15/2023 0946 EDT Respiratory Rate 16 03/15/202346 EDT Oxygen Saturation 97% 03/15/2023945 EDT Inhaled Oxygen Concentration - - Weight 78.4 kg (172 lb 12.8 oz) 03/15/2023945 EDT Height - - Body Mass Index 27.97 10/14/2022 1620 EDT documented in this encounter Functional Status * Are you [...] documented in this encounter Progress Notes * Pam Germain MD - 03/15/2023 1000 EDT Austin Squires is a 47 y.o.yo female presenting in clinic today for follow up of triple negative breast cancer. Oncology History ?? 1. Early stage [facility] Breast Cancer ??? Iridologist noticed a mass in her left breast in early June 2020 ??? Imaging and a biopsy on 07/09/20??of a 2.1 cm mass revealed a nuclear grade 3 ER negative NV negative for HER2 negative ductal carcinoma.? Staging [...] testing: negative (9 gene panel performed through [facility] was performed) SUBJECTIVE: Austin returns for routine [...] social history reviewed and updated. Lives in [facility]. Works at [employer]. She will be getting this summer, in [place]. Objective: There were no vitals taken for [...] Office Visit [facility] Surgical Oncology - [address] [phone] Maeve Morales DO [address] [phone] documented as of this encounter Visit Diagnoses Diagnosis Malignant 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, estrogen receptor negative (HCC-CMS)- Primary Triple negative malignant neoplasm of breast (HCC-CMS) documented in this encounter Care Teams Solutions Executive Security Relationship Specialty Start Date End Date Janay Duran APRN [address] [place] [phone] PCP - General Family Medicine - Primary Care 07/22/22 02/12/24 Pam Germain MD [address] [place] [address] [address] [place] [phone] Medical Oncology 03/22/22 documented as of this encounter
--- OUTSIDE RECORDS SUMMARY | 2024-05-04 01:24 | XMS_ITS | Encounter Summary ---
Author Organization [facility] Address [address] [place] [address] Care Team Providers Care Retread Operator Name Role Phone Pam Germain MD Unavailable [phone] Janay Duran APRN Primary Care Provider Inez Corado DO Primary Care Provid er Encounter Details Date Type Department Care Team (Late st Contact Info) Description 06/13/2023 Lab Requisition [facility] Pathology & Laboratory Medicine - [facility] [address] [place] [address] Janay Duran APRN [address] [address] Encounter for screening for malignant neoplasm of [...] Amarilys Michaud RN documented in this encounter Plan of Treatment Upcoming Encounters Date Type Department Care Team (Late st Contact Info) Description 02/28/2025 13:00 EDT Office Visit [facility] Surgical Oncology - [address] [id number] Maeve Morales, DO 111 [facility], Level 2 [place] [address] documented as of this [...] PCR Negative Negative 06/28/2023 15:43 EST [facility] HPV18/45 RNA (HPV18/45) Negative Negative 06/28/2023 15:43 EST [facility] Pap Test CERVIX UTERI STRUCTURE / Unknown 06/13/2023 12:36 EST 06/23/2023 13:46 EST Janay Duran APRN MICROBIOLOGY - GENERAL ORDER CHAO Final Result Performing Organization Address City/[facility] Co de Phone Number [facility] [address] [place] [address] * (ABNORMAL) HUMAN PAPILLOMAVIRUS (HPV) DETECTION-HIGH RISK TYPES (06/13/2023 12:36 EST) HPV other High Risk types, PCR Positive( A) Negative 06/28/2023 15:43 EST [facility] Comment:E6 OR E7 mRNA from o ne or more types of HPV types 16,18,31,33,35,39,45,51,52,56,58,59,66, and 68 is detected by director of exhibit development mediated amplification. High and intermediate risk HPV types are associated with most squamous intraepithelial lesions and cervical cancers. Pap Test CERVIX UTERI STRUCTURE / Unknown 06/13/2023 12:36 EST 06/23/2023 13:46 EST us Janay Duran APRN MICROBIOLOGY - GENERAL ORDER CHAO Final Result Performing Organization Address City/[facility]/ZIP Co de Phone Number [facility] [address] [place] [address] * PAP TEST (06/13/2023 12:36 EST) Specimens A. Cervix and/or Endocervix , ThinPrep Imaging System with Manual Evaluation 06/28/2023 15:43 [facility] Specimen Adequacy Satisfactory for Evaluation - transformation zone component present 06/28/2023 15:43 [facility] General Categorization Negative for intraepithelial lesion or malignancy 06/28/2023 15:43 [facility] Attestation . 06/28/2023 15:43 [facility] at 1543 Clinical History Clinical History, Signs, Symptoms, Chief Complaint, Pertaining to This Order: SEE BELOW Last Menstral Period: POST MENOPAUSAL 06/28/2023 15:43 [facility] HPV The result for the Human Papillomavirus (HPV) Detection-High Risk Types is Positive . E6 OR E7 mRNA from one or more types of HPV types 16,18,31,33,35,39 ,45,51,52,56,58,5 9,66, and 68 is detected by director of exhibit development mediated amplification. High and intermediate risk HPV types are associated with most squamous intraepithelial lesions and cervical cancers. Testing was performed on specimen [id number] and was resulted on 06/24/2023 1521 EST by [facility], LAB INSTRUMENT RESULTS IN 06/28/2023 15:43 [facility] Genotyping 16 & 18/45 The results for the HPV Genotypes 16 and 18/45 are Negative for the HPV16 RNA and Negative for the HPV18/45 RNA (HPV18/45). Testing was performed on specimen [id number] and was resulted on 06/28/2023 1543 EST by [facility], LAB INSTRUMENT RESULTS IN 06/28/2023 15:43 [facility] Performing Lab [facility] 06/28/2023 15:43 [facility] Scanned Images 06/28/2023 15:43 [facility] Pap Test CERVIX UTERI STRUCTURE / Unknown 06/13/2023 12:36 EST 06/14/2023 11:05 EST Janay Duran APRN PATHOLOGY ORDERABLES Final R esult [facility] [address] [place] [address] documented in this encounter Visit Diagnoses Diagnosis Encounter for screening for malignant neoplasm of cervix Screening for malignant neoplasm of the cervix documented in this encounter Care Teams Retread Operator Relationship Specialty Start Date End Date Janay Duran, DIRECTOR OF MARKETING ANALYTICS [address] [address] PCP - General Family Medicine - Primary Care 07/22/22 02/12/24 Inez Corado DO [address] [place] [phone] PCP - General Family Medicine - Primary Care 02/13/24 Pam Germain MD 111 [facility] 2 [place] [phone] Medical Oncology 03/22/22 documented as of this encounter
--- OUTSIDE RECORDS SUMMARY | 2024-05-04 01:24 | XMS_ITS | Clinical Summary ---
Author Organization [facility] Address [address] [place] [address] Care Team Providers Care Costume Cutter Name Role Phone Pam Germain MD Unavailable [phone] Inez Corado DO Primary Care Provid er Allergies Active Allergy Reactions Criticality Noted Date Comments Ondansetron Other (See Comments) 12/19/2020 Dose to be limited to under 16mg daily while on Lexapro as EKG showed QTC as 0.4 Oxycodone Other (See Comments) 06/24/2020 Made her hyper Wound Dressings 01/11/2022 Sorbaview (pt states port-a-cath dressing with white border causes skin issues). Medications escitalopram oxalate (LEXAPRO) 20 mg tablet TAKE [...] different from the original. Verified ACO Medicaid trans#[id number] Bhavani Garcia 06/27/2020 14:08 2021-Verified ACO Attributed [place] Medicaid TCN:[id number] Anastacio Aaron 05/20/2021 9:55 Problem Noted Date Diagnosed Date Hepatic steatosis 03/26/2021 Hypertension 03/26/2021 History of anxiety 03/26/2021 Breast cancer in female ([facility]) 12/24/2020 Malignant neoplasm of upper- inner quadrant of breast in female, estrogen receptor negative ([facility]) 07/15/2020 Cancer Staging:Clinical:Stage IIB(cT2, cN0, cM0, G3, ER-, [place]-, HER2-) - Signed by Maeve Morales DO on 07/15/2020 Resolved Problems Problem Noted Date Diagnosed Date Resolved Date Sepsis ([facility]) 11/21/2020 11/23/2020 Fever and chills 11/21/2020 11/23/2020 Encounters Date Type Department Care Team Description 02/22/2024 9:59 EDT - 02/22/2024 23:59 EDT Hospital Encounter Radiology at [address] [id number] RLQ abdominal pain; History of breast cancer Discharge Disposition: Home or Self Care 02/22/2024 Telephone [facility] Surgical Oncology - [address] [address] Kenia Cline RN Follow-up 02/09/2024 14:00 EDT Office Visit [facility] Plastic, Reconstructive & Cosmetic Surgery - [address], [address] [place] [address] Jaunito Carcamo MD FACS S/P breast reconstruction (Primary Dx) from Last 3 Months Immunizations Name Administration [...] g exercises and weights Bladder incontinence Cancer ([facility]) Noted 3: breast History of chemotherapy Diabetes mellitus, type 2 ([facility]) Noted 07/19/2022: not currently on meds, last [...] Visit [facility] Surgical Oncology - [facility] [address] [place], [place] [address] Maeve Morales, DO 111 [facility], [address] [place] [address] Health Maintenance Due Date Last Done Comments Pneumococcal Immunization (1 of 2 - PCV) 09/10/1981 Hepatitis B Vaccine (1 of 3 - 19+ 3-dose series) 09/10/1994 COVID-19 Vaccine ( - season) 2024, 08/08/2020 Hepatitis C Screen Completed 02/25/2021 Medical Devices Implanted Type Area Cloth Doubling Machine Operator Device Identifier Shelf Expiration Date Model / Serial / Lot Implant Breast Silicone Round Smooth 755cc Memorygel [id number] - [id number] Implanted:Qty : 1 on 01/11/2022 by Juanito Carcamo MD FACS at [facility] Breast Implant Right: Breast [employer] [id number] 02/12/2023 [id number] / [id number] Implant Breast Silicone Round Smooth 755cc Memorygel [id number] - [id number] Implanted:Qty : 1 on 01/11/2022 by Juanito Carcamo MD FACS at [facility] Breast Implant Left: Breast [employer] [id number] 02/26/2026 [id number] / [id number] / [id number] Tissue 132cm 9.6 X 19.3cm Alloderm Contour Matrix Dermal Rtm Medium Thick - [id number] Implanted:Qty : 1 on 12/24/2020 by Juanito Carcamo MD FACS at [facility] Tissue Right: Breast [employer] [id number] 09/12/2022 [id number] / / [id number] Tissue 320cm Alloderm 16 X 20cm Perforated Med Thickness - [id number] Implanted:Qty : 1 on 12/24/2020 by Juanito Carcamo MD FACS at [facility] Tissue Right: Breast [employer] [id number] 05/15/2022 [id number] / / [id number] Tissue 132cm 9.6 X 19.3cm Alloderm Contour Matrix Dermal Rtm Medium Thick - [id number] Implanted:Qty : 1 on 12/24/2020 by Juanito Carcamo MD FACS at [facility] Tissue Left: Breast [employer] [id number] 09/12/2022 [id number] / / [id number] Tissue 320cm Alloderm 16 X 20cm Perforated Med Thickness - [id number] Implanted:Qty : 1 on 12/24/2020 by Juanito Carcamo MD FACS at [facility] Tissue Left: Breast [employer] [id number] 05/15/2022 [id number] / / [id number] Port Infusion Low Profile 1 Lumen 8fr Cath Gro[employer] [id number] - [id number] Implanted:Qty : 1 on 08/08/2020 at [facility] Right: Chest Wall [employer] [id number] 05/15/2021 [id number] / / [id number] Explanted Type Area Cloth Doubling Machine Operator Device Identifier Shelf Expiration Date Model / Serial / Lot Montessori Lead Teacher Tissue Breast 750cc Artoura Plus Smooth Surface High Profile - [id number] Implanted:Qty: 1 on 12/24/2020 by Juanito Carcamo MD FACS at [facility] Explanted:Qty: 1 on 06/18/2021 by Juanito Carcamo MD FACS at [facility] Montessori Lead Teacher Right: Breast [employer] 06/08/2024 [facility] / [id number] / [id number] Montessori Lead Teacher Tissue Breast 750cc Artoura Plus Smooth Surface High Profile - [id number] Implanted:Qty: 1 on 12/24/2020 by Juanito Carcamo MD FACS at [facility] Explanted:Qty: 1 on 01/11/2022 by Juanito Carcamo MD FACS at [facility] Montessori Lead Teacher Left: Breast [employer] 06/08/2024 [facility] / [id number] Montessori Lead Teacher Tissue Breast 750cc Artoura Plus Smooth Surface High Profile - [id number] Implanted:Qty: 1 on 06/18/2021 by Juanito Carcamo MD FACS at [facility] Explanted:Qty: 1 on 01/11/2022 by Juanito Carcamo MD FACS at [facility] Montessori Lead Teacher Right: Breast [employer] 11/23/2024 [facility] / [id number] Procedures Procedure Name Priority Date/Time Associated Diagnosis Comments CT ABDOMEN PELVIS WO CONTRAST Routine 02/22/2024 10:17 EDT RLQ abdominal pain History of breast cancer ORDERS - SCANNED 02/17/2024 14:1 6 EDT HEPATITIS C AB W REFLEX TO HCV RNA BY PCR Routine 02/25/2021 13:55 EDT LFTs abnormal from Last 3 Months or Most Recently Relevant to Health Maintenance Results * CT ABDOMEN PELVIS WO CONTRAST (02/22/2024 10:17 EDT) Anatomical Region Laterality Modality Body, Abdomen, Pelvis, Abdomen and Pelvis Computed Tomography 02/22/2024 12:0 7 EDT Impressions 02/22/2024 12:07 EDT No acute abnormalities in the abdomen or pelvis. I have personally reviewed the images and the above interpretation and agree with the findings. [id number] Narrative 02/22/2024 12:[address] ABDOMEN PELVIS [...] bowel-containing hernia. Musculoskeletal: No concerning osseous lesion. Inpatient Auditor: No additional findings. Resulting Agency Comment [id number] Procedure Note Khalif Ca MD - 02/22/2024 [...] bowel-containing hernia. Musculoskeletal: No concerning osseous lesion. Inpatient Auditor: No additional findings. IMPRESSION No acute abnormalities in the abdomen or pelvis. I have personally reviewed the images and the above interpretation andagree with the findings. [id number] us Maeve Morales DO IMG CT ORDERABLES Final Res ult * ORDERS - SCANNED (02/17/2024 14:16 EDT) 02/17/2024 14:1 6 EDT us Scan 2 Wind Instrument Repairer ADMISSION ORDERABLES Final Result * HEPATITIS C AB W REFLEX TO HCV RNA BY PCR (02/25/2021 13:55 EDT) Hep C Antibody Negative Negative 02/26/2021 11:03 EDT [facility] Blood VENOUS BLOOD / Unknown Venipuncture / Unknown 02/25/2021 13:55 EDT 02/25/2021 14:13 EDT us Hernando Diaz MD PhD CHEMISTRY & BLOOD GAS O RDERABLES Final Result [facility] [address] [place] [address] from Last 3 Months or Most Recently Relevant to Health Maintenance Insurance [facility] Advance Directives For more information, please contact: [phone] * Full Code (Latest Code Status on [...] participated in the discussion? Patient Care Teams Costume Cutter Relationship Specialty Start Date End Date Inez Corado DO [address] [place] [phone] PCP - General Family Medicine - Primary Care 02/13/24 Pam Germain MD [address] [place] [address] 2 [place] [phone] Medical Oncology 03/22/22
--- OUTSIDE RECORDS SUMMARY | 2024-05-04 01:24 | XMS_ITS | Encounter Summary ---
Author Organization [facility] Address [address] [place] [address] Care Team Providers Care Lines Tender Name Role Phone Pam Germain MD Unavailable [phone] Janay Duran APRN Primary Care Provider [phone] Inez Corado DO Primary Care Provid er Encounter Details Date Type Department Care Team (Late st Contact Info) Description 06/13/2023 Lab Requisition [facility] Pathology & Laboratory Medicine - [facility] [address] [place] [address] Janay Duran APRN [address] [address] Unspecified osteoarthritis, unspecified site Social History Tobacco [...] Info) Description 02/28/2025 13:00 EDT Office Visit [facility] Surgical Oncology - [address] [phone] Maeve Morales, DO 111 [facility], [address] [place] [address] documented as of this encounter Procedures Procedure Name Priority Date/Time Associated Diagnosis Comments RHEUMATOID FACTOR Today 06/13/2023 11: 05 EST Unspecified osteoarthritis, unspecified site documented in this encounter Results * (ABNORMAL) RHEUMATOID FACTOR (06/13/2023 11:05 EST) Rheumatoid Factor 13.0(H) <12.0 IU/mL 06/13/2023 21:01 EST [facility] Blood VENOUS BLOOD / Unknown 06/13/2023 11:05 EST 06/13/2023 20:40 EST Janay Duran APRN CHEMISTRY & BLOOD GAS ORDERA BLES Final Result [facility] [address] [place] [address] documented in this encounter Visit Diagnoses Diagnosis Unspecified osteoarthritis, unspecified site documented in this encounter Care Teams Lines Tender Relationship Specialty Start Date End Date Janay Duran APRN [address] [address] PCP - General Family Medicine - Primary Care 07/22/22 02/12/24 Inez Corado DO [address] [place] [phone] PCP - General Family Medicine - Primary Care 02/13/24 Pam Germain MD [address] [place] [phone] Medical Oncology 03/22/22 documented as of this encounter
--- OUTSIDE RECORDS SUMMARY | 2024-05-04 01:24 | XMS_ITS | Encounter Summary ---
Author Organization [facility] Address [address] [place] [address] Care Team Providers Care Roller Billet Mill Name Role Phone Pam Germain MD Unavailable [phone] Janay Duran APRN Primary Care Provider [phone] Reason for Referral * Radiology Services (Routine/Next Available) - Authorization Not Required Specialty Diagnoses / Procedures Referred By Jen gonzáles Referred To Contact Diagnoses Abnormal results of liver function studies Procedures US ABDOMEN LIMITED Janay Duran APRN [address] [place] [phone] Phone: tel: fax: [facility] Referral ID Status Reason Start Date Expiration Date Visits Requested Visits Authorized [id number] Authorization Not Required 06/27/2023 1 1 Reason for Visit * Radiology Services (Routine/Next Available) - Authorization Not Required Specialty Diagnoses / Procedures Referred By Jen gonzáles Referred To Contact Diagnoses Abnormal results of liver function studies Procedures US ABDOMEN LIMITED Janay Duran APRN [address] [address] Phone: tel: fax: [facility] Referral ID Status Reason Start Date Expiration Date Visits Requested Visits Authorized [id number] Authorization Not Required 06/27/2023 1 1 Encounter Details Date Type Department Care Team (Latest Contact Info) Description 08/12/2023 13:28 EDT - 08/12/2023 23:59 EDT Hospital Encounter [facility] [address] [place] [address] Abnormal results of liver function studies Discharge [...] Answer Entry Date Author No 12/24/2020 17:15 EDT Amarilys Valentin RN documented in this encounter Medications at Time of Discharge escitalopram oxalate (LEXAPRO) 20 mg tablet TAKE [...] 02/28/2025 13:00 EDT Office Visit [facility] Surgical Oncology - [address] [phone] Maeve Morales, [address], [facility] 2 [place] [phone] documented as of this encounter Procedures Procedure [...] above interpretation and agree with the findings. [id number] Narrative 08/12/2023 14:56 EDT US ABDOMEN LIMITED [...] the above interpretation andagree with the findings. [id number] us Janay Duran APRN IMG US ORDERABLES Final Resu lt documented in this encounter Visit Diagnoses Diagnosis Abnormal results of liver function studies Nonspecific abnormal results of liver function study documented in this encounter Care Teams Roller Billet Mill Relationship Specialty Start Date End Date Janay Duran APRN [address] [place] [address] 2 [place] [phone] PCP - General Family Medicine - Primary Care 07/22/22 02/12/24 Pam Germain MD [address] [place] [address] 2 [place] [phone] Medical Oncology 03/22/22 documented as of this encounter
--- OUTSIDE RECORDS SUMMARY | 2024-05-04 01:24 | XMS_ITS | Encounter Summary ---
Author Organization [facility] Address [address] [place] [address] Care Team Providers Care Boiler Welder Name Role Phone Pam Germain MD Unavailable [phone] Janay Duran APRN Primary Care Provider Reason for Visit * Reason Comments Post-OP Follow Up Chan TE to implant Encounter Details Date Type Department Care Team (Latest Contact Info) Description 01/09/2024 15:45 EDT Office Visit [facility] Plastic, Reconstructive & Cosmetic Surgery - [address], [address] [place] [address] Anali Navas PA-C [address] [place] [phone] S/P breast reconstruction (Primary Dx) Social [...] Progress Notes * Anali Navas PA-C - 01/09/2024 0915 EDT SUBJECTIVE: Austin Veras returns in follow up from bilateral breast recon with silicone implantswith Dr. Collier on 01/11/22 with dog ear revision on 07/22/22 She notes a change in her breasts. She feels that there was a change in her breasts and she has noticed rippling of her bilateral superior poles. She feels that there is some tightening on the bilateral lateral breasts She denies fevers, chills, and pain OBJECTIVE: On examination, in no distress. Incisions are well healed. Bilateral breasts are with good contour. The superior pole has visible rippling with forward bending. The bilateral implants are soft to palpation. IMPRESSION: doing well PLAN: There is noticeable rippling to the bilateral superior implants which could possibly be addressed with fat grafting, pt is not interested in surgery for cosmetic appearance at this time. There bilateral breasts are soft and with good contour so suspicion of capsular contracture is low,but certainly a possibility There is also the possibility of an implant rupture which I would not be able to assess without imaging, but certainly could change the feeling of her breasts to her Discussed the above with patient and she would like to proceed with imaging. This was dicussed withDr. Collier and he would like to see the patient prior to ordering imaging FOLLOW UP: With dr collier F/U sooner for any concerns. Pt encouraged to call with any questions or concerns, informed that there is always someone adjudication specialist. Acute changes are asked to be reported. documented in this encounter Plan of Treatment Upcoming Encounters Date Type Department Care Team (Late st Contact Info) Description 02/28/2025 13:00 EDT Office Visit [facility] Surgical Oncology - [address] [phone] Maeve Morales DO [address] [phone] documented as of this encounter Visit Diagnoses Diagnosis S/P breast reconstruction- Primary Breast replaced by other means documented in this encounter Care Teams Boiler Welder Relationship Specialty Start Date End Date Janay Duran, JULIAN [address] [place] [phone] PCP - General Family Medicine - Primary Care 07/22/22 02/12/24 Pam Germain MD [address] [place] [phone] Medical Oncology 03/22/22 documented as of this encounter
--- OUTSIDE RECORDS SUMMARY | 2024-05-04 01:24 | XMS_ITS | Encounter Summary ---
Author Organization [facility] Address [address] [place] [address] Care Team Providers Care Formula Checker Name Role Phone Pam Germain MD Unavailable [phone] Janay Duran APRN Primary Care Provider [phone] Encounter Details Date Type Department Care Team (Late st Contact Info) Description 03/15/2023 10:30 EDT Phlebotomy Only [facility] ED Center 2 Phlebotomy [address] [place], [place] [address] Ict Educator, Acc Phlebotomy Malignant neoplasm of upper-inner quadrant [...] Info) Description 02/28/2025 13:00 EDT Office Visit [facility] Surgical Oncology - [address] [address] Maeve Morales, DO [address] [place] [address], Level 2 [place] [address] documented as of this encounter [...] 6.64 4.00 - 12.40 K/cmm 03/15/2023 10:00 [facility] RBC 5.39(H) 3.86 - 5.04 M/cmm 03/15/2023 10:00 [facility] Hemoglobin 15.9(H) 11.6 - 15.2 g/dL 03/15/2023 10:00 [facility] HCT 47.1(H) 34.9 - 44.4 % 03/15/2023 10:00 [facility] MCV 87 81 - 98 fL 03/15/2023 10:00 [facility] MCH 29.5 26.7 - 33.3 pg 03/15/2023 10:00 [facility] MCHC 33.8 32.1 - 35.9 g/dL 03/15/2023 10:00 [facility] RDW-CV 12.3 <14.7 % 03/15/2023 10:00 [facility] RDW-SD 39.2 <50.4 fl 03/15/2023 10:00 [facility] PLT 253 141 - 377 K/cmm 03/15/2023 10:00 [facility] MPV 10.3 9.5 - 12.7 fL 03/15/2023 10:00 [facility] % Neutrophils 60.6 % 03/15/2023 10:00 [facility] % Lymphocytes 28.5 % 03/15/2023 10:00 [facility] % Monocytes 7.8 % 03/15/2023 10:00 [facility] % Eosinophils 1.8 % 03/15/2023 10:00 [facility] % Basophils 1.1 % 03/15/2023 10:00 [facility] % Immature Grans 0.2 % 03/15/20 10:[address] [facility] Absolute Neutrophils 4.03 2.20 - 8.85 K/cmm 03/15/2023 10:[address] [facility] Absolute Lymphocytes 1.89 1.09 - 3.30 K/cmm 03/15/2023 10:[address] [facility] Absolute Monocytes 0.52 0.10 - 0.80 K/cmm 03/15/2023 10:[address] [facility] Absolute Eosinophils 0.12 0.03 - 0.61 K/cmm 03/15/2023 10:[address] [facility] ABS Basophils 0.07 0.01 - 0.11 K/cmm 03/15/2023 10:[address] [facility] Absolute Immature Grans 0.01 0.00 - 0.06 K/cmm 03/15/2023 10:[address] [facility] Type of Differential: Auto 03/15/2023 10:[address] [facility] Blood VENOUS BLOOD / Unknown Venipuncture / Unknown 03/15/2023 9:43 EDT 03/15/2023 9:53 EDT us Pam Germain MD PACKAGES & DNA PROBE ORDERABLES Final Result [facility] [address] [place] [address] * (ABNORMAL) COMPREHENSIVE METABOLIC PANEL (ONCOLOGY USE ONLY-INC MG) (03/15/2023 9:43 EDT) Sodium 136 136 - 145 mmol/L 03/15/2023 10:[address] [facility] Potassium 4.7 3.5 - 5.0 mmol/L 03/15/2023 10:[address] [facility] Chloride 99 96 - 110 mmol/L 03/15/2023 10:[address] [facility] CO2 Total 26 22 - 32 mmol/L 03/15/2023 10:[address] [facility] Glucose 272(H) 70 - 99 mg/dl 03/15/2023 10:35 [facility] BUN 14 10 - 26 mg/dL 03/15/2023 10:35 [facility] Creatinine 0.49(L) 0.52 - 1.04 mg/dL 03/15/2023 10:35 [facility] eGFR 117 >60 mL/min/1.7 3m2 03/15/2023 10:35 [facility] Total Protein 8.0 6.3 - 8.2 g/dL 03/15/2023 10:35 [facility] Albumin 4.8 3.4 - 4.9 g/dL 03/15/2023 10:35 [facility] Alkaline Phosphatase 143(H) 38 - 126 U/L 03/15/2023 10:35 [facility] AST 55(H) 15 - 46 U/L 03/15/2023 10:35 [facility] ALT 80(H) <35 U/L 03/15/2023 10:35 [facility] Bilirubin, Total 0.5 <1.4 mg/dL 03/15/20 10:35 [facility] Calcium 9.6 8.5 - 10.5 mg/dL 03/15/2023 10:35 [facility] Magnesium 2.0 1.7 - 2.8 mg/dL 03/15/2023 10:35 [facility] Albumin/Globulin Ratio 1.5 1.0 - 2.5 g/dL 03/15/2023 10:35 [facility] Anion Gap 11 5 - 14 mmol/L 03/15/2023 10:35 [facility] Blood VENOUS BLOOD / Unknown Venipuncture / Unknown 03/15/2023 9:43 EDT 03/15/2023 10:03 EDT us Pam Germain MD CHEMISTRY & BLOOD GAS ORDERABLE S Final Result [facility] [address] [place] [address] documented in this encounter Visit Diagnoses Diagnosis Malignant 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, estrogen receptor negative (HCC-CMS) documented in this encounter Care Teams Formula Checker Relationship Specialty Start Date End Date Janay Duran APRN 111 [facility] 2 [place] [phone] PCP - General Family Medicine - Primary Care 07/22/22 02/12/24 Pam Germain MD [address] [place] [address] Medical Oncology 03/22/22 documented as of this encounter
--- OUTSIDE RECORDS SUMMARY | 2024-05-04 01:24 | XMS_ITS | Encounter Summary ---
Author Organization [facility] Address [address] [place] [address] Care Team Providers Care Police Commanding Officer Name Role Phone Pam Germain MD Unavailable [phone] Inez Corado DO Primary Care Provid er Reason for Visit * Reason Onset Date Comments Follow-up 02/22/2024 Encounter Details Date Type Department Care Team (Late st Contact Info) Description 02/22/2024 Telephone [facility] Surgical Oncology - Main [place] [address] [place] [address] Kenia Cline, RADHA Follow-up Social History Tobacco [...] of Assessment Author No 12/24/2020 17:15 Amarilys Micahud, RN * Do you have serious difficulty walking or climbing stairs? (5 years old or older) Answer Date of Assessment Author No 12/24/2020 17:15 Amarilys Michaud, RN * Do you have difficulty dressing [...] Telephone Encounter - Kenia Cline RN - 02/22/2024 4754 EDT Follow up call placed to patient after reviewing CT results with Dr. Morales. Made aware there were no acute findings. Patient is relieved. No other concerns at this time. Patient to follow up with Dr. Germain as scheduled in October [address] Morales in January 2025. Encouraged her to call with anyneeds in the meantime. documented in this encounter Plan of Treatment Upcoming Encounters Date Type Department Care Team (Late st Contact Info) Description 02/28/2025 13:00 EDT Office Visit [facility] Surgical Oncology - [address] [address] Maeve Morales, DO 111 [facility], [facility], Level [address] [place] [address] documented as of this encounter Visit Diagnoses Not on filedocumented in this encounter Care Teams Police Commanding Officer Relationship Specialty Start Date End Date Inez Corado DO [address] [place] [phone] PCP - General Family Medicine - Primary Care 02/13/24 Pam Germain MD 111 [facility], [place] [address] [place] [address] Medical Oncology 03/22/22 documented as of this encounter
--- OUTSIDE RECORDS SUMMARY | 2024-05-04 01:24 | XMS_ITS | Encounter Summary ---
Author Organization [facility] Address [address] [place] [address] Care Team Providers Care De Icer Name Role Phone Pam Germain MD Unavailable [phone] Janay Duran APRN Primary Care Provider [phone] Reason for Visit * Reason Comments Follow-up Encounter Details Date Type Department Care Team (Late st Contact Info) Description 10/07/2023 16:20 EDT Office Visit [facility] Hematology & Oncology - [address] [phone] Jeremie Vazquez, PACalinC 111 [facility], Level [address] [place] [address] Malignant neoplasm of upper-inner quadrant [...] Date of Assessment Author No 12/24/2020 17:15 Amairlys Michaud RN * Are you blind or [...] documented in this encounter Progress Notes * Jeremie Vazquez PA-C - 10/07/2023 1620 EDT [facility] Medical Oncology PROGRESS / FOLLOWUP NOTE - [...] List: 1. Early stage [facility] Breast Cancer Asphalt Smoother noticed a mass in her left breast in early June 2020 Imaging and a biopsy on 07/09/20 of a 2.1 cm mass revealed a nuclear grade 3 ER negative [place] negativefor HER2 negative ductal carcinoma. Staging evaluation [...] testing: negative (9 gene panel performed through [employer] was performed) Interval History: Austin presents today [...] Stage IIB (cT2, cN0, cM0, G3, ER-, [place]-, HER2-) - Signed by Maeve Morales DO [...] Info) Description 02/28/2025 13:00 EDT Office Visit [facility] Surgical Oncology - [address] [phone] Maeve Morales DO [address] [place] [phone] documented as of this encounter Visit Diagnoses Diagnosis Malignant 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, estrogen receptor negative (HCC-CMS)- Primary Triple negative malignant neoplasm of breast (HCC-CMS) documented in this encounter Care Teams De Icer Relationship Specialty Start Date End Date Janay Duran, DIGITAL DIRECTOR [address] [place] [address] PCP - General Family Medicine - Primary Care 07/22/22 02/12/24 Pam Germain MD [address] [place] [phone] Medical Oncology 03/22/22 documented as of this encounter
--- OUTSIDE RECORDS SUMMARY | 2024-05-04 01:24 | XMS_ITS | Encounter Summary ---
Author Organization [facility] Address [address] [place] [address] Care Team Providers Care Credit Collection Specialist Name Role Phone Pam Germain MD Unavailable [phone] Janay Duran APRN Primary Care Provider Reason for Visit * Reason Onset Date Comments Appointment Related 12/03/2022 Encounter Details Date Type Department Care Team (Late st Contact Info) Description 12/03/2022 Telephone [facility] Surgical Oncology - [address] [phone] Maeve Morales, DO 111 [facility], [facility] 2 [place] [address] Appointment Related Social History Tobacco [...] Info) Description 02/28/2025 13:00 EDT Office Visit [facility] Surgical Oncology - [address] [address] Maeve Morales DO [address] [address] documented as of this encounter Visit Diagnoses Not on filedocumented in this encounter Care Teams Credit Collection Specialist Relationship Specialty Start Date End Date Janay Duran, JULIAN [address] [address] PCP - General Family Medicine - Primary Care 07/22/22 02/12/24 Pam Germain MD [address] [phone] Medical Oncology 03/22/22 documented as of this encounter
--- OUTSIDE RECORDS SUMMARY | 2024-05-04 01:24 | XMS_ITS | Referral Summary ---
Author Organization [facility] Address [address] [place] [address] Care Team Providers Care Solar Electric Installer Name Role Phone Pam Germain MD Unavailable [phone] Inez Corado DO Primary Care Provid er Encounters Date Type Department Care Team Description 02/22/2024 Telephone [facility] Surgical Oncology - Main [place] [address] [place] [address] Kenia Cline RN Follow-up 02/22/2024 9:59 EDT - 02/22/2024 23:59 EDT Hospital Encounter Radiology at [address] [address] RLQ abdominal pain; History of breast cancer Discharge Disposition: Home or Self Care 02/09/2024 14:00 EDT Office Visit [facility] Plastic, Reconstructive & Cosmetic Surgery - [address], [address] [place] [address] Juanito Carcamo MD FACS S/P breast reconstruction (Primary Dx) from Last 3 Months Allergies Active Allergy [...] different from the original. Verified ACO Medicaid trans#[id number] Bhavani Garcia 06/27/2020 14:08 2021-Verified ACO Attributed [place] Medicaid TCN:[id number] Anastacio Galen 05/20/2021 9:55 Problem Noted Date Diagnosed Date Hepatic steatosis 03/26/2021 Hypertension 03/26/2021 History of anxiety 03/26/2021 Breast cancer in female ([facility]) 12/24/2020 Malignant neoplasm of upper- inner quadrant of breast in female, estrogen receptor negative ([facility]) 07/15/2020 Cancer Staging:Clinical:Stage IIB(cT2, cN0, cM0, G3, ER-, [place]-, HER2-) - Signed by Maeve Morales DO on 07/15/2020 Resolved Problems Problem Noted Date Diagnosed Date Resolved Date Sepsis ([facility]) 11/21/2020 11/23/2020 Fever and chills 11/21/2020 [...] Index 25.35 10/07/2023 1603 EDT Functional Status * Are you deaf or [...] of Assessment Author No 12/24/2020 17:15 EDT Valentin, Aver y, RN Mental Status * Because of a physical, mental, or emotional condition, does this person have serious difficulty concentrating, remembering, or making decisions? Answer Entry Date Author Yes 10/07/2023 16:04 EDT Amarilys Valentin RN Plan of Treatment Upcoming Encounters Date Type Department Care Team (Late st Contact Info) Description 02/28/2025 13:00 EDT Office Visit [facility] Surgical Oncology - [address] [phone] Maeve Morales, [address] [place] [address] [address] [place] [phone] Medical Devices Implanted Type Area Stock Handler Floorperson Device Identifier Shelf Expiration Date Model / Serial / Lot Implant Breast Silicone Round Smooth 755cc Memorygel [id number] - [id number] Implanted:Qty : 1 on 01/11/2022 by Juanito Carcamo MD FACS at [facility] Breast Implant Right: Breast [employer] [id number] 02/12/2023 [id number] / [id number] / [id number] Implant Breast Silicone Round Smooth 755cc Memorygel [id number] - [id number] Implanted:Qty : 1 on 01/11/2022 by Juanito Carcamo MD FACS at [facility] Breast Implant Left: Breast [employer] [id number] 02/26/2026 [id number] / [id number] / [id number] Tissue 132cm 9.6 X 19.3cm Alloderm Contour Matrix Dermal Rtm Medium Thick - [id number] Implanted:Qty : 1 on 12/24/2020 by Juanito Carcamo MD FACS at [facility] Tissue Right: Breast [employer] [id number] 09/12/2022 [id number] / / [id number] Tissue 320cm Alloderm 16 X 20cm Perforated Med Thickness - [id number] Implanted:Qty : 1 on 12/24/2020 by Juanito Carcamo MD FACS at [facility] Tissue Right: Breast [employer] [id number] 05/15/2022 [id number] / / [id number] Tissue 132cm 9.6 X 19.3cm Alloderm Contour Matrix Dermal Rtm Medium Thick - [id number] Implanted:Qty : 1 on 12/24/2020 by Juanito Carcamo MD FACS at [facility] Tissue Left: Breast [employer] [id number] 09/12/2022 [id number] / / [id number] Tissue 320cm Alloderm 16 X 20cm Perforated Med Thickness - [id number] Implanted:Qty : 1 on 12/24/2020 by Juanito Carcamo MD FACS at [facility] Tissue Left: Breast [employer] [id number] 05/15/2022 [id number] / / [id number] Port Infusion Low Profile 1 Lumen 8fr Cath Groshong [id number] - [id number] Implanted:Qty : 1 on 08/08/2020 at [facility] Right: Chest Wall [employer] [id number] 05/15/2021 [id number] / / [id number] Explanted Type Area Stock Handler Floorperson Device Identifier Shelf Expiration Date Model / Serial / Lot Home Theater Experience Expert Tissue Breast 750cc Artoura Plus Smooth Surface High Profile - [id number] Implanted:Qty: 1 on 12/24/2020 by Juanito Carcamo MD FACS at [facility] Explanted:Qty: 1 on 06/18/2021 by Juanito Carcamo MD FACS at [facility] Home Theater Experience Expert Right: Breast [employer] 06/08/2024 [facility]-150 / [id number] Home Theater Experience Expert Tissue Breast 750cc Artoura Plus Smooth Surface High Profile - [id number] Implanted:Qty: 1 on 12/24/2020 by Juanito Carcamo MD FACS at [facility] Explanted:Qty: 1 on 01/11/2022 by Juanito Carcamo MD FACS at [facility] Home Theater Experience Expert Left: Breast [employer] 06/08/2024 [facility]-150 / [id number] Home Theater Experience Expert Tissue Breast 750cc Artoura Plus Smooth Surface High Profile - [id number] Implanted:Qty: 1 on 06/18/2021 by Juanito Carcamo MD FACS at [facility] Explanted:Qty: 1 on 01/11/2022 by Juanito Carcamo MD FACS at [facility] Home Theater Experience Expert Right: Breast [employer] 11/23/2024 [facility]-150 / [id number] Procedures Procedure Name Priority Date/Time Associated Diagnosis [...] above interpretation and agree with the findings. [id number] Narrative 02/22/2024 12:[address] ABDOMEN PELVIS [...] bowel-containing hernia. Musculoskeletal: No concerning osseous lesion. Director Of Casework: No additional findings. Resulting Agency Comment [id number] Procedure Note Khalif Ca MD - 02/22/2024 [...] bowel-containing hernia. Musculoskeletal: No concerning osseous lesion. Director Of Casework: No additional findings. IMPRESSION No acute abnormalities in the abdomen or pelvis. I have personally reviewed the images and the above interpretation andagree with the findings. [id number] us Maeve Morales DO IMG CT ORDERABLES Final Res ult * ORDERS - SCANNED (02/17/2024 14:16 EDT) 02/17/2024 14:1 6 EDT us Scan 2 Product Promoter Retail Pet ADMISSION ORDERABLES Final Result * HEPATITIS C AB W REFLEX TO HCV RNA BY PCR (02/25/2021 13:55 EDT) Hep C Antibody Negative Negative 02/26/2021 11:[address] [facility] Blood VENOUS BLOOD / Unknown Venipuncture / Unknown 02/25/2021 13:55 EDT 02/25/2021 14:13 EDT Hernando Diaz MD PhD CHEMISTRY & BLOOD GAS O RDERABLES Final Result [facility] [address] [place] [id number] from Last 3 Months or Most Recently Relevant to Health Maintenance Insurance [facility] Advance Directives For more information, please contact: [phone] * Full Code (Latest Code Status on [...] participated in the discussion? Patient Care Teams Solar Electric Installer Relationship Specialty Start Date End Date Inez Corado DO [address] [place] [address] PCP - General Family Medicine - Primary Care 02/13/24 Pam Germain MD 111 [facility], [facility] 2 [place] [address] Medical Oncology 03/22/22
--- OUTSIDE RECORDS SUMMARY | 2024-05-04 01:24 | XMS_ITS | Encounter Summary ---
Author Organization [facility] Address [address] [place] [address] Care Team Providers Care Clinical Specialist Vascular Name Role Phone Pam Germain MD Unavailable [phone] Janay Duran APRN Primary Care Provider [phone] Encounter Details Date Type Department Care Team (Late st Contact Info) Description 12/03/2022 16:15 EDT Ancillary Procedure [facility] Surgical Oncology - Main [place] [address] [place], [place] [phone] Social History Tobacco Use Types Packs/Day Years [...] Info) Description 02/28/2025 13:00 EDT Office Visit [facility] Surgical Oncology - [address] [phone] Maeve Morales DO [address] [place] [address], Level [address] [place] [phone] documented as of this encounter Procedures Procedure Name Priority Date/Time Associated Diagnosis Comments [facility] BREAST BREAST [facility]ARE [facility] ONLY Routine 12/03/2022 16:56 EDT documented in this encounter Results * [facility] ONLY (12/03/2022 16:56 EDT) Narrative [facility] POINT OF CARE - 12/03/2022 16:56 EDT This is a non-reportable exam. us Maeve Morales DO IMG US POC ORDERABLES Final Result [id number] POINT OF CARE documented in this encounter Visit Diagnoses Not on filedocumented in this encounter Care Teams Clinical Specialist Vascular Relationship Specialty Start Date End Date Janay Duran APRN 111 [facility], [facility] 2 [place] [phone] PCP - General Family Medicine - Primary Care 07/22/22 02/12/24 Pam Germain MD [address] [place] [address], [facility] 2 [place] [address] Medical Oncology 03/22/22 documented as of this encounter
--- OUTSIDE RECORDS SUMMARY | 2024-05-04 01:24 | XMS_ITS | Data Portability ---
Author Organization [facility] [place] [address] Care Team Providers Care Advertising Inserter Name Role Phone JAYNA JIMENEZ Primary Care Provider Assessment No assessment recorded. Plan of Treatment Reminders Order Date Submit Date Provider Last Modified By Organization Details Last Modified Time Details Appointments None recorded. Lab influenza virus A + B + SARS-CoV-2 (COVID19) Ag panel, rapid IA, upper respiratory specimen 2023 024 [email or web address] [facility], [address] [place] [address], [address], [place], [address], 4 19:28:30 SARS CoV 2 RNA (COVID-19), , director account management-PCR, respiratory specimen 2023 024 [facility] (Registration ), [address] [place] [address] [place], [address], 4 09:13:54 Referral None recorded. Procedures None recorded. Surgeries None recorded. Imaging XR, chest, 2 view 2023 024 [facility] (Radiology), [address] [place] [address] [place], [address], 4 02:49:50 Medication Orders albuterol sulfate HFA 90 mcg/actuati on aerosol inhaler 2023 024 [place] [facility], [address] [place], [address], 19:41:30 cephalexin 500 mg capsule 2023 [facility], [address] [place], [address], 19:20:49 neomycin-po lymyxin-hyd rocort 3.5 mg-10,000 unit/mL-1 % ear drops,susp 2023 024 [facility], [address] [place], [address], 19:38:41 Patient TargetsNo targets recorded. Patient Instructions Encounter Date Encounter Id Patient Instructions Last Modified By Organization Details Last Modified Time 05/19/2023 [id number] 1. Your Rapid COVID and flu test are negative here today. COVID PCR sent for confirmatory measures will be back either later today or tomorrow. These results will be communicated as soon as they become available. 2. X-rays have been ordered and will [facility] I will not get results back before we closed. I will communicate them to you tomorrow along with your COVID result. 3. I have sent prescription for an albuterol inhaler and spacer to be used as needed during times of coughing fits, shortness of breath or wheeze. Not available 05/19/2023 19:42:03 03/28/2024 [id number] 1. Earwax was removed from the ear today. The ear canal itself does appear to be a bit irritated. The eardrum looks healthy. I have sent prescription for an antibiotic eardrop you will use for the next 7 to 10 days. I do expect symptoms to begin to improve. If they are not improving or having worsening please seek follow-up as needed. Not available 03/28/2024 19:38:59 Reason for Referral None Reported. Results Created Date Observation Date Name Description Value Unit Range Abnormal Flag Note LastModifiedBy Organization Detail LastModifiedTime 05/19/19 24 05/19/2023 COVID -19 PCR ([facility] ) source Nasal/ Nares Not Available [facility] (Registration ) [facility] [place], [address], 05/19/2023 21:52:00 05/19/19 24 05/19/2023 COVID -19 PCR ([facility] ) covid-19 PCR Negati ve negati ve This test has not been FDA clear ed or appro gennaro. This test has been autho rized by the FDA under an Emerg ency Use Autho rizat ion for use by autho rized labor atori es. This test has been autho rized only for detec tion of nucle ic acid from the 2019 novel coron a virus (2018 -nCoV )and not for the detec tion of any other virus es or patho gens. This test is only autho rized for the durat ion of the decla ratio n that circu mstan adriana exist justi fying the autho rizat ion of emerg ency use of in vitro diagn ostic tests for detec tion and/o r diagn osis of 2019- nCoV under secti on 564(b )(1) of Act, 21 U.S.C ??? 360bb b-3(b )(1), unles s the autho rizat ion is termi nated or revok ed soone r. Negat mingo resul ts do not precl ude 2019- nCoV infec tion and shoul d not be used as the sole basis for treat ment or other patie nt manag ement decis ions. Negat mingo resul ts must be combi shon with clini tyson obser vatio ns, patie nt histo ry, and epide miolo gical infor matio n. Testi ng perfo rmed at [facility] (CLIA #[id number])on the Cephe id GeneX pert. Not Available [facility] (Registration ) [facility] [place], [address], 05/19/2023 21:52:00 05/19/19 24 05/19/2023 influ jared virus A + B + SARS- CoV-2 (COVI D19) Ag panel , rapid IA, upper respi rator y speci men Influenza A negati ve Not Available [address], [place], [address], 05/19/2023 18:44:10 05/19/19 24 05/19/2023 influ jared virus A + B + SARS- CoV-2 (COVI D19) Ag panel , rapid IA, upper respi rator y speci men Influenza B negati ve Not Available [address], [place], [address], 05/19/2023 18:44:10 05/19/19 24 05/19/2023 influ jared virus A + B + SARS- CoV-2 (COVI D19) Ag panel , rapid IA, upper respi rator y speci men SARS-COV-2 negati ve Not Available [address], [place], [address], 05/19/2023 18:44:10 05/19/19 24 05/19/2023 XR, chest , 2 view No observ ation record ed. [email or web address] [facility] [id number], 05/20/2023 09:18:43 05/20/19 24 05/20/2023 XR, chest , 2 view Patien t Name: Niko Nino S Unit #: [id number] Loc: DI Orderi [facility] er: Mary Jo Vergara Accoun t #: [id number] Status : REG CLI Primar [...] DELIVE RED: Ordere d By: Mary Jo Vergara CC: ------ ------ ------ ------ ------ ------ [...] report in error, please notify us immedi ately at and return the origin al report to us at the addres s above. Thank- you. [email or web address] [facility] (Radiology) [address] [place] [address] [place], [address], 05/20/2023 10:17:09 05/20/19 24 05/19/2023 XR, chest , 2 view No observ ation record ed. [email or web address] [facility] (Radiology) [address] [place] [address] [place], [address], 05/20/2023 11:21:48 12/12/19 24 06/13/2023 Pap compl iance * No observ ation record ed. BARCODE Not Available 2023 19:14:18 Result Notes None recorded. Problems Name Problem SNOMED Code Status Onset Date Resolution Date Notes Provider Name and Address Organization Details Recorded Time Otitis externa of right ear 8263522120474519 Active [address], [place], [address] , [facility] 19:37:56 Cough 17333279 Active [address], [place], [address] , [facility] 09:59:04 Problem Notes None recorded. Procedures Surgical History Date Name Laterality Status Provider Name and Address Organization Details Recorded Time 4 Cerumen Removal completed Mila Briggs RN [facility] 03/28/2024 19:42:31 4 Nebulizer tx completed [address], [place], [address], [facility] 05/20/2023 11:13:37 Imaging Results Imaging Date Name Status LastModified by Organiz ation Details LastModified Time 05/19/2023 XR, chest, 2 view completed [email or web address] [facility] [id number], 05/20/2023 09:18:43 05/20/2023 XR, chest, 2 view completed [email or web address] [facility] (Radiology) [address] [place] [address] [place], [address], 05/20/2023 10:17:09 05/19/2023 XR, chest, 2 view completed [email or web address] [facility] (Radiology) [address] [place] [address] [place], [address], 05/20/2023 11:21:48 06/13/2023 Pap compliance * completed BARCODE Information not available 12/12/2023 19:14:18 Procedure Notes None recorded. Medical Equipment None [...] Details Last Updated DateTime 4 167.64 cm 26.6 kg/m2 85901.7 4 g 16 /min 98.2 [degF] 98 % 98 % 94 /min 110 mm[Hg] 79 mm[Hg] Melissa Salcedo MA [facility] 4 18:23:01 Date Recorded Body height Body mass index (BMI) Body weight Body temperature Oxygen saturation Oxygen saturation in Arterial blood by Pulse oximetry Heart rate Respiratory rate Systolic blood pressure Diastolic blood pressure Provider Name and Address Organization Details Last Updated DateTime 4 167.64 cm 25 kg/m2 39117.8 2 g 97 [degF] 98 % 98 % 76 /min 16 /min 113 mm[Hg] 74 mm[Hg] Edinson pathak MA [facility], [facility] 4 14:49:26 Date Recorded Body height Body mass index (BMI) Body weight Respiratory rate Oxygen saturation Oxygen saturation in Arterial blood by Pulse oximetry Heart rate Body temperature Systolic blood pressure Diastolic blood pressure Provider Name and Address Organization Details Last Updated DateTime 4 167.64 cm 25 kg/m2 37770.8 2 g 17 /min 98 % 98 % 82 /min 98.2 [degF] 115 mm[Hg] 78 mm[Hg] RADHA Aguirre [facility] 4 19:21:02 Social History Question Answer Notes LastModified by Organizat ion Details LastModified Time Tobacco Smoking Status Former Smoker RADHA Aguirre, [facility] 03/28/2024 19:21:37 Do You Or Have You Ever Used E-cigarettes Or Vape? Current User Of Electronic Cigarettes Information not available 03/28/2024 When Did You Quit Smoking? 1-5yearssinalisson reveles Information not available 03/28/2024 What Was The [...] mcg/0.3 mL dose 1 completed RADHA Aguirre, [facility] 05/23/2023 10:13:05 COVID-19, mRNA, LNP-S, PF, 30 mcg/0.3 mL dose 1 completed RADHA Aguirre, [facility] 05/23/2023 10:13:09 influenza, unspecified formulation 3 completed Mila Briggs RN null, [facility] 05/23/2023 10:13:20 pneumococcal polysaccharide PPV23 1 completed Mila Briggs RN null, [facility] 05/23/2023 10:13:39 Tdap 4 completed Mila Briggs RN null, [facility] 12/12/2023 14:09:59 Past Encounters Encounter ID Performer Location Encounter Start Date Encounter Closed Date Diagnosis/Indication Diagnosis SNOMED-CT Code Diagnosis ICD10 Code [id number] MARY JO VERGARA PA-C [address] [place] [address] 05/19/2023 17:07:19 05/19/2023 19:54:16 Cough 18076393 R05.9 [id number] JOHN SCHULTZ [address] [place] [address] 12/12/2023 13:54:34 12/12/2023 15:10:29 Cellulitis of periorbital region of right eye 8388083157 76360 L03.059 [id number] MARY JO VERGARA PA-C [address] [place] [address] 03/28/2024 18:40:16 03/28/2024 19:39:54 Otitis externa of right ear 5482569809 848793 H60.91 Health Concerns Section Related Observation LastModified by Organization Detai ls LastModified Time None Recorded Concern Status LastModified by Organization Details LastModified Time None Recorded Advance Directives Directive None Recorded Payers Encounter Date Sequence Insurance Name Policy Number Policy Raymond Covered Member ID Raymond Member ID Guarantor Name 05/19/2023 1 [facility] (MEDICAID) Austin Veras [id number] Austin Veras 12/12/2023 1 [place] Austin Candelarial [id number] Austin Candelarial 03/28/2024 1 [place] Austin Veras [id number] Austin Veras Notes Date Note Type Note Provider Name and Address Organization Details Recorded Time 05/19/2023 text/html Austin is a 47-year-old female who presents [...] is 2 years status post breast cancer. MARY JO VERGARA PA-C [address], [place], [address], [facility], [facility]. 05/20/2023 11:15:42 12/12/2023 text/html Patient with injury to R eyelid 12/10/23. (struck by scope on a crossbow).Presente d to ED that day, tetanus vaccine updated, and dermabond used to close wound.Yesterday began with some bruising, but this AM upon waking, significant swelling to R upper lid.Has been using local ice packs in the first 24 hours. Denies pain with eye movement, no fevers. Denies any MRSA risk factors: Denies any history of drug resistant skin infections. No recent antibiotic use. Denies any work in health care or correctional facility. She does report a history of an adhesive reaction with past surgeries (port procedure and breast/nipple reconstruction). JOHN SCHULTZ [address], [place], [address], [facility], [facility]. 12/12/2023 15:18:02 03/28/2024 text/html Austin is a 48-year-old female [...] a child. Was more prone to strep. MARY JO VERGARA PA-C [address], [place], [address], [facility]. 03/28/2024 19:51:05 OBGyn Episode No OBEpisode recorded.
--- OUTSIDE RECORDS SUMMARY | 2024-05-04 01:24 | XMS_ITS | Encounter Summary ---
Author Organization [facility] Address [address] [place] [address] Care Team Providers Care Seismic Prospecting Observer Helper Name Role Phone Pam Germain MD Unavailable [phone] Janay Duran APRN Primary Care Provider [phone] Reason for Visit * Reason Onset Date Comments Appointment Related 07/27/2023 Encounter Details Date Type Department Care Team (Late st Contact Info) Description 07/27/2023 Telephone [facility] Surgical Oncology - [address] [phone] Maeve Morales, DO 111 [facility] [address] [place] [phone] Appointment Related Social History Tobacco Use Types [...] EDT Gave pt a call per her [employer] message looking to reschedule her appt w/ [...] Office Visit [facility] Surgical Oncology - [address] [phone] Maeve Morales DO [address] [phone] documented as of this encounter Visit Diagnoses Not on filedocumented in this encounter Care Teams Seismic Prospecting Observer Helper Relationship Specialty Start Date End Date Janay Duran, TELEPHONE AD TAKER [address] [place] [phone] PCP - General Family Medicine - Primary Care 07/22/22 02/12/24 Pam Germain MD [address] [place] [phone] Medical Oncology 03/22/22 documented as of this encounter
--- OUTSIDE RECORDS SUMMARY | 2024-05-04 01:24 | XMS_ITS | Encounter Summary ---
Author Organization [facility] Address [address] [place] [address] Care Team Providers Care Bankruptcy Judge Name Role Phone Pam Germain MD Unavailable [phone] Janay Duran APRN Primary Care Provider [phone] Reason for Visit * Reason Comments Other Right implant rippli ng and tightness Encounter Details Date Type Department Care Team (Latest Contact Info) Description 02/09/2024 14:00 EDT Office Visit [facility] Plastic, Reconstructive & Cosmetic Surgery - [address], [address] [place] [address] Juanito Carcamo MD [address] [address] S/P breast reconstruction (Primary Dx) [...] documented in this encounter Progress Notes * Juanito Carcamo MD FACS - 02/09/2024 1400 EDT Austin is seen in follow-up for her breast reconstruction. Original mastectomies were 12/25/2020 followed by prepectoral tissue cotton acreage measurer and allograft reconstruction. Complicated by a deflated tissue cotton acreage measurer which was replaced 06/18/2021. She subsequently was changed to bilateral silicone implants with fat grafting 01/11/2022 followed by bilateral nipple reconstructions 07/22/2022 with subsequent nipple areolar tattooing. She reports that she is doing well. She got last fall. She is now working for [employer]. She notes that she is lost 30+ pounds. She has a small area of the right breast superior lateral breast that is palpable and concerns are. She notes that she did see Dr. Morales 01/31/2024 who both examined and ultrasounded her breasts as well as her axilla and saw nothing concerning. On examination Austin looks great. She has a well- preserved result. She does have somewhat more rippling than she did previously but this reflects that she is lost weight which includes the fat that we grafted in position. I think this loss of grafted fat also explains the area that she is concerned with being palpable in the superior lateral of the right breast. I think she has an excellent result and reassured her that I saw nothing concerning. I will however check in with Maeve Morales to close the loop on this conversation. Total time spent on for this visit in uylt-ed-hwyk and non aqaf-ra-tlel time reviewing, documenting, and obtaining, clinical information, coordinating with the care team and/or other specialists, andcounseling the patient: 32 minutes. documented in this encounter Plan of Treatment Upcoming Encounters Date Type Department Care Team (Late st Contact Info) Description 02/28/2025 13:00 EDT Office Visit [facility] Surgical Oncology - [address] [address] Maeve Morales DO [address] [phone] documented as of this encounter Visit Diagnoses Diagnosis S/P breast reconstruction- Primary Breast replaced by other means documented in this encounter Care Teams Bankruptcy Judge Relationship Specialty Start Date End Date Janay Duran APRN [address] [place] [phone] PCP - General Family Medicine - Primary Care 07/22/22 02/12/24 Pam Germain MD [address] [place] [phone] Medical Oncology 03/22/22 documented as of this encounter
--- OUTSIDE RECORDS SUMMARY | 2024-05-04 01:24 | XMS_ITS | Encounter Summary ---
Author Organization [facility] Address [address] [place] [address] Care Team Providers Care Divemaster Name Role Phone Pam Germain MD Unavailable [phone] Janay Duran APRN Primary Care Provider [phone] Reason for Visit * Reason Onset Date Comments Appointment Related 10/11/2023 Encounter Details Date Type Department Care Team (Late st Contact Info) Description 10/11/2023 Telephone [facility] H[facility]ology & Oncology - [facility] [address] [place], [place] [phone] Pam Germain MD 111 [facility], [address] [place] [address] Appointment Related Social History Tobacco [...] Info) Description 02/28/2025 13:00 EDT Office Visit [facility] Surgical Oncology - [address] [phone] Maeve Morales DO [address] [place] [phone] documented as of this encounter Visit Diagnoses Not on filedocumented in this encounter Care Teams Divemaster Relationship Specialty Start Date End Date Janay Duran, C D REACTOR OPERATOR [address] [place] [phone] PCP - General Family Medicine - Primary Care 07/22/22 02/12/24 Pam Germain MD [address] [place] [phone] Medical Oncology 03/22/22 documented as of this encounter
--- OUTSIDE RECORDS SUMMARY | 2024-05-04 01:24 | XMS_ITS | Encounter Summary ---
Author Organization [facility] Address [address] [place] [address] Care Team Providers Care Microeconomics Professor Name Role Phone Pam Germain MD Unavailable [phone] Janay Duran APRN Primary Care Provider Reason for Visit * Reason Comments Post-OP Follow Up bilateral nipple rec on with right medial dog ear revision with Dr. Carcamo on 07/22/22. Encounter Details Date Type Department Care Team (Late st Contact Info) Description 02/10/2023 10:30 EDT Office Visit [facility] Plastic, Reconstructive & Cosmetic Surgery - [address], [address] [place] [address] Juanito Carcamo MD [address] [phone] Surgery follow-up (Primary Dx) Social [...] encounter Progress Notes * Juanito Carcamo MD [facility] - 02/10/2023 1030 EDT Austin follows up [...] time spent on for this visit in fhtw-ja-euen and non xiao-lj-qukc time reviewing, documenting, and obtaining, clinical information, coordinating with the care team and/or other specialists, andcounseling the patient: 40 minutes. documented in this encounter Plan of Treatment Upcoming Encounters Date Type Department Care Team (Late st Contact Info) Description 02/28/2025 13:00 EDT Office Visit [facility] Surgical Oncology - [address] [phone] Maeve Morales DO [address] [place] [phone] documented as of this encounter Visit Diagnoses Diagnosis Surgery follow-up- Primary Follow-up examination, following unspecified surgery documented in this encounter Care Teams Microeconomics Professor Relationship Specialty Start Date End Date Janay Duran, SPINNING BATH PATROLLER [address] [place] [phone] PCP - General Family Medicine - Primary Care 07/22/22 02/12/24 Pam Germain MD [address] [place] [phone] Medical Oncology 03/22/22 documented as of this encounter
--- OUTSIDE RECORDS SUMMARY | 2024-05-04 01:24 | XMS_ITS | Encounter Summary ---
Author Organization [facility] Address [address] [place] [address] Care Team Providers Care Hat Sizer Name Role Phone Pam Germain MD Unavailable [phone] Janay Duran APRN Primary Care Provider [phone] Reason for Visit * Reason Comments Post-OP Follow Up Bilateral nipple tat too Encounter Details Date Type Department Care Team (Latest Contact Info) Description 03/31/2023 13:45 EST Post-op Visit [facility] Plastic, Reconstructive & Cosmetic Surgery - [address], [address] [place] [address] Oksana Wilkins PA-C [address] [place] [phone] S/P breast reconstruction (Primary Dx) Social [...] Notes * Oksana Wilkins PA-C - 03/31/2023 1345 EST SUBJECTIVE: Austin presents to the plastic [...] [facility] [address] [phone] Maeve Morales DO [address] [phone] documented as of this encounter Visit Diagnoses Diagnosis S/P breast reconstruction- Primary Breast replaced by other means documented in this encounter Historical Medications * This list may reflect changes made after this encounter. semaglutide (OZEMPIC) 0.25 mg or 0.5 mg (2 mg/3 mL) pen injector Inject 0.5 mg into the skin once a week. 0.25 mg x4 week and then increase to 0.5 mg added in this encounter Care Teams Hat Sizer Relationship Specialty Start Date End Date Janay Duran APRN [address] [place] [phone] PCP - General Family Medicine - Primary Care 07/22/22 02/12/24 Pam Germain MD [address] [place] [phone] Medical Oncology 03/22/22 documented as of this encounter
--- OUTSIDE RECORDS SUMMARY | 2024-05-04 01:24 | XMS_ITS | Encounter Summary ---
Author Organization [facility] Address [address] [place] [address] Care Team Providers Care Mechanical Designer Name Role Phone Pam Germain MD Unavailable [phone] Inez Corado DO Primary Care Provid er Reason for Referral * Radiology Services (Routine/Next Available) - Authorization Not Required Specialty Diagnoses / Procedures Referred By Jen gonzáles Referred To Contact Diagnoses RLQ abdominal pain History of breast cancer Procedures CT ABDOMEN PELVIS WO CONTRAST Maeve Morales DO [address] [address] Phone: tel: fax: [facility] Referral ID Status Reason Start Date Expiration Date Visits Requested Visits Authorized [id number] Authorization Not Required 02/08/2024 1 1 Reason for Visit * Radiology Services (Routine/Next Available) - Authorization Not Required Specialty Diagnoses / Procedures Referred By Jen gonzáles Referred To Contact Diagnoses RLQ abdominal pain History of breast cancer Procedures CT ABDOMEN PELVIS WO CONTRAST Maeve Morales DO [address] [place] [phone] Phone: tel: fax: [facility] Referral ID Status Reason Start Date Expiration Date Visits Requested Visits Authorized [id number] Authorization Not Required 02/08/2024 1 1 Encounter Details Date Type Department Care Team (Latest Contact Info) Description 02/22/2024 9:59 EDT - 02/22/2024 23:59 EDT Hospital Encounter Radiology at [address] [address] RLQ abdominal pain; History of breast cancer Discharge Disposition: Home or Self Care Social [...] 12/24/2020 17:15 EDT Valentin, Aver y, RN documented as of this encounter Mental Status * Because of a physical, mental, or emotional condition, does this person have serious difficulty concentrating, remembering, or making decisions? Answer Entry Date Author Yes 10/07/2023 16:04 EDT Amarilys Valentin, RN documented in this encounter Medications at [...] Info) Description 02/28/2025 13:00 EDT Office Visit [facility] Surgical Oncology - [address] [address] Maeve Morales, DO [address] [place] [address], [facility] [address] [place] [phone] documented as of this encounter Procedures Procedure Name Priority Date/Time Associated Diagnosis Comments CT ABDOMEN PELVIS WO CONTRAST Routine 02/22/2024 10:17 EDT RLQ abdominal pain History of breast cancer documented in this encounter Results * CT ABDOMEN PELVIS WO CONTRAST (02/22/2024 10:17 EDT) Anatomical Region Laterality Modality Body, Abdomen, Pelvis, Abdomen and Pelvis Computed Tomography 02/22/2024 12:0 7 EDT Impressions 02/22/2024 12:07 EDT No acute abnormalities in the abdomen or pelvis. I have personally reviewed the images and the above interpretation and agree with the findings. [id number] Narrative 02/22/2024 12:[address] ABDOMEN PELVIS [...] bowel-containing hernia. Musculoskeletal: No concerning osseous lesion. Nutrition Internship: No additional findings. Resulting Agency Comment [id number] Procedure Note Khalif Ca MD - 02/22/2024 [...] bowel-containing hernia. Musculoskeletal: No concerning osseous lesion. Nutrition Internship: No additional findings. IMPRESSION No acute abnormalities in the abdomen or pelvis. I have personally reviewed the images and the above interpretation andagree with the findings. [id number] us Maeve Morales DO IMG CT ORDERABLES Final Res ult documented in this encounter Visit Diagnoses Diagnosis RLQ abdominal pain Abdominal pain, right lower quadrant History of breast cancer Personal history of malignant neoplasm of breast documented in this encounter Care Teams Mechanical Designer Relationship Specialty Start Date End Date Inez Corado DO [address] [place] [phone] PCP - General Family Medicine - Primary Care 02/13/24 Pam Germain MD 111 [facility] 2 [place] [phone] Medical Oncology 03/22/22 documented as of this encounter
--- OUTSIDE RECORDS SUMMARY | 2024-05-04 01:25 | XMS_ITS | Encounter Summary ---
Author Organization [facility] Address [address] [place] [address] Care Team Providers Care Clerk Of Court Name Role Phone Pam Germain MD Unavailable [phone] Janay Duran APRN Primary Care Provider Reason for Visit * Reason Comments Post-OP Follow Up Encounter Details Date Type Department Care Team (Latest Contact Info) Description 07/30/2022 11:30 EDT Post-op Visit [facility] Plastic, Reconstructive & Cosmetic Surgery - [address], [address] [place] [address] Oksana Wilkins PA-C [address] [place] [phone] Surgery follow-up (Primary Dx) Social History [...] Benadryl to combat itch. FOLLOW UP: Dr. Carcamo is litigation specialist this weekend PRN. Otherwise, follow up on Tuesday08/02/22 Oksana Wilkins PA-C 07/30/2022 12:54 documented in this encounter Plan of Treatment Upcoming Encounters Date Type Department Care Team (Late st Contact Info) Description 02/28/2025 13:00 EDT Office Visit [facility] Surgical Oncology - [address] [phone] Maeve Morales DO [address] [place] [phone] documented as of this encounter Visit Diagnoses Diagnosis Surgery follow-up- Primary Follow-up examination, following unspecified surgery documented in this encounter Care Teams Clerk Of Court Relationship Specialty Start Date End Date Janay Duran, JULIAN [address] [place] [phone] PCP - General Family Medicine - Primary Care 07/22/22 02/12/24 Pam Germain MD [address] [place] [phone] Medical Oncology 03/22/22 documented as of this encounter
--- OUTSIDE RECORDS SUMMARY | 2024-05-04 01:25 | XMS_ITS | Encounter Summary ---
Author Organization [facility] Address [address] [place] [address] Care Team Providers Care Warehouse Helper Name Role Phone Batsheva Lira JOHN Primary Care Provider [phone] Pam Germain MD Unavailable [phone] Reason for Visit * Reason Onset Date Comments Labs Only 06/03/2022 Encounter Details Date Type Department Care Team (Late st Contact Info) Description 06/03/2022 Telephone [facility] Surgical Oncology - [address] [phone] Maeve Morales, DO 111 [facility], [facility] 2 [place] [phone] Labs Only Social History Tobacco Use Types [...] needed at this time. Called and notified RG Pierre MD's orders and closed the communication loop. [...] Info) Description 02/28/2025 13:00 EDT Office Visit [facility] Surgical Oncology - [address] [phone] Maeve Morales DO [address] [phone] documented as of this encounter Visit Diagnoses Not on filedocumented in this encounter Care Teams Warehouse Helper Relationship Specialty Start Date End Date Batsheva Lira FNP [address] [address] PCP - General 02/19/20 07/21/22 Pam Germain MD [address] [place] [phone] Medical Oncology 03/22/22 documented as of this encounter
--- OUTSIDE RECORDS SUMMARY | 2024-05-04 01:25 | XMS_ITS | Encounter Summary ---
Author Organization [facility] Address [address] [place] [address] Care Team Providers Care Business Continuity Planner Name Role Phone Pam Germain MD Unavailable [phone] Janay Duran APRN Primary Care Provider [phone] Reason for Referral * Radiology Services (Routine/Next Available) - Authorization Not Required Specialty Diagnoses / Procedures Referred By Contac t Referred To Contact Diagnoses Cervical radiculopathy Procedures XR CERVICAL SPINE 4-5 VIEWS Briseyda Gilliam NP Phone: tel: fax: [facility] Referral ID Status Reason Start Date Expiration Date Visits Requested Visits Authorized [id number] Authorization Not Required 07/26/2022 1 1 Reason for Visit * Radiology Services (Routine/Next Available) - Authorization Not Required Specialty Diagnoses / Procedures Referred By Contac t Referred To Contact Diagnoses Cervical radiculopathy Procedures XR CERVICAL SPINE 4-5 VIEWS Briseyda Gilliam NP Phone: tel: fax: [facility] Referral ID Status Reason Start Date Expiration Date Visits Requested Visits Authorized [id number] Authorization Not Required 07/26/2022 1 1 Encounter Details Date Type Department Care Team (Latest Contact Info) Description 08/06/2022 12:58 EDT - 08/06/2022 23:59 EDT Hospital Encounter [facility] Center Radiology Xray Outpatient - [address] [address] Cervical radiculopathy Discharge Disposition: Home or Self [...] Assessment Author No 12/24/2020 17:15 Amarilys Michaud y, RN documented as of this encounter Mental Status * Because of a physical, mental, or emotional condition, do you have serious difficulty concentrating, remembering, or making decisions? (5 years old or older) Answer Entry Date Author No 12/24/2020 17:15 EDT Amarilys Valentin, RN documented in this encounter Medications at Time of Discharge escitalopram oxalate (LEXAPRO) 10 mg tablet Take 30 mg by mouth daily. 12/03/2022 metformin HCl (METFORMIN ORAL) Take by mouth. 10/14/2022 sulfamethoxazole- trimethoprim (BACTRIM DS) 800-160 mg per tablet Take [...] Info) Description 02/28/2025 13:00 EDT Office Visit [facility] Surgical Oncology - [address] [phone] Maeve Morales, [address], [address] [place] [phone] documented as of this encounter Procedures Procedure [...] Briseyda Gilliam NP IMG DIAGNOSTIC IMAGING ORDERABLES Final Result documented in this encounter Visit Diagnoses Diagnosis Cervical radiculopathy Brachial neuritis or radiculitis nos documented in this encounter Care Teams Business Continuity Planner Relationship Specialty Start Date End Date Janay Duran APRN [address] [place] [phone] PCP - General Family Medicine - Primary Care 07/22/22 02/12/24 Pam Germain MD [address] [place] [phone] Medical Oncology 03/22/22 documented as of this encounter
--- OUTSIDE RECORDS SUMMARY | 2024-05-04 01:25 | XMS_ITS | Encounter Summary ---
Author Organization [facility] Address [address] [place] [address] Care Team Providers Care Undertaker Helper Name Role Phone Pam Germain MD Unavailable [phone] Janay Duran APRN Primary Care Provider Encounter Details Date Type Department Care Team (Late st Contact Info) Description 10/18/2022 Orders Only [facility] Radiology - Main [place] [address] [place], [place] [phone] Promise Ramos MD [address] [place], [place] [phone] Social History Tobacco Use Types Packs/Day Years [...] Info) Description 02/28/2025 13:00 EDT Office Visit [facility] Surgical Oncology - [address] [phone] Maeve Morales DO [address] [phone] documented as of this encounter Visit Diagnoses Not on filedocumented in this encounter Care Teams Undertaker Helper Relationship Specialty Start Date End Date Janay Duran, JULIAN [address] [phone] PCP - General Family Medicine - Primary Care 07/22/22 02/12/24 Pam Germain MD 111 [facility], [facility] 2 [place] [phone] Medical Oncology 03/22/22 documented as of this encounter
--- OUTSIDE RECORDS SUMMARY | 2024-05-04 01:25 | XMS_ITS | Encounter Summary ---
Author Organization [facility] Address [address] [place] [address] Care Team Providers Care Business Continuity Planning Director Name Role Phone Batsheva Lira JOHN Primary Care Provider [phone] Pam Germain MD Unavailable [phone] Reason for Visit * Reason Comments Pre-op Exam Bilateral nipple rec onstruction and bilateral dog ear revision 3.9.23 Encounter Details Date Type Department Care Team (Latest Contact Info) Description 07/20/2022 9:45 EST Office Visit [facility] Plastic, Reconstructive & Cosmetic Surgery - [address], [address] [place] [address] Juanito Carcamo MD [address] [phone] S/P breast reconstruction (Primary Dx) [...] time spent on for this visit in mufc-lt-lvhn and non ohes-kk-mmhv time reviewing, documenting, and obtaining, clinical information, coordinating with the care team and/or other specialists, andcounseling the patient: 40 minutes. documented in this encounter Plan of Treatment Upcoming Encounters Date Type Department Care Team (Late st Contact Info) Description 02/28/2025 13:00 EDT Office Visit [facility] Surgical Oncology - [address] [phone] Maeve Morales DO [address] [phone] documented as of this encounter Visit Diagnoses Diagnosis S/P breast reconstruction- Primary Breast replaced by other means documented in this encounter Care Teams Business Continuity Planning Director Relationship Specialty Start Date End Date Batsheva Lira FNP [address] [phone] PCP - General 02/19/20 07/21/22 Pam Gemrain MD [address] [place] [phone] Medical Oncology 03/22/22 documented as of this encounter
--- OUTSIDE RECORDS SUMMARY | 2024-05-04 01:25 | XMS_ITS | Encounter Summary ---
Author Organization [facility] Address [address] [place] [address] Care Team Providers Care Nurses' Association Executive Director Name Role Phone Pam Germain MD Unavailable [phone] Janay Duran APRN Primary Care Provider Reason for Visit * Reason Comments Post-OP Follow Up Bilateral nipple rec on Encounter Details Date Type Department Care Team (Latest Contact Info) Description 09/02/2022 16:15 EDT Post-op Visit [facility] Plastic, Reconstructive & Cosmetic Surgery - [address], [address] [place] [address] Anali Navas PA-C [address] [place] [phone] Surgery follow-up (Primary Dx) Social History [...] in this encounter Progress Notes * Anali aNvas PA-C - 09/02/2022 1615 EDT SUBJECTIVE: Austin [...] nipple tattoo with SOCORRO Wilkins, due to [place] hemosiderin like staining after her rash would [...] concerns, informed that there is always someone varying exceptionalities teacher. Acute changes are asked to be reported. documented in this encounter Plan of Treatment Upcoming Encounters Date Type Department Care Team (Late st Contact Info) Description 02/28/2025 13:00 EDT Office Visit [facility] Surgical Oncology - [address] [phone] Maeve Morales DO [address] [place] [phone] documented as of this encounter Visit Diagnoses Diagnosis Surgery follow-up- Primary Follow-up examination, following unspecified surgery documented in this encounter Care Teams Nurses' Association Executive Director Relationship Specialty Start Date End Date Janay Duran APRN [address] [place] [phone] PCP - General Family Medicine - Primary Care 07/22/22 02/12/24 Pam Germain MD [address] [place] [phone] Medical Oncology 03/22/22 documented as of this encounter
--- OUTSIDE RECORDS SUMMARY | 2024-05-04 01:25 | XMS_ITS | Encounter Summary ---
Author Organization [facility] Address [address] [place] [address] Care Team Providers Care Health Evaluator Name Role Phone Pam Germani MD Unavailable [phone] Janay Duran APRN Primary Care Provider [phone] Reason for Referral * Radiology Services (Routine/Next Available) - Authorization Not Required Specialty Diagnoses / Procedures Referred By [facility] Referred To Contact Nuclear Medicine Diagnoses Malignant 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, estrogen receptor negative (HCC-CMS) Pain of right hip Procedures NM BONE WHOLE BODY Liat Honeycutt PA-C Phone: tel: fax: [facility] Referral ID Status Reason Start Date Expiration Date Visits Requested Visits Authorized [id number] Authorization Not Required 10/17/2022 1 1 Reason for Visit * Reason Comments Follow-up Encounter Details Date Type Department Care Team (Late st Contact Info) Description 10/14/2022 16:20 EDT Office Visit [facility] Hematology & Oncology - [address] [phone] Liat Honeycutt PA-C [address] [place] [address], [facility], Level [address] [place] [address] Malignant neoplasm of upper-inner quadrant [...] 1. Early stage [facility] Breast Cancer ??? 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 Not much relief with [id number]-szu-[id number] medication. She otherwise is feeling well, with [...] social history reviewed and updated. Lives in [place]. Works at [employer]. She will be getting this summer, in [place]. Objective: BP 118/74 Pulse 71 Temp 36.1 [...] Info) Description 02/28/2025 13:00 EDT Office Visit [facility] Surgical Oncology - [address] [phone] Maeve Morales DO [address] [place] [address], [address] [place] [phone] documented as of this encounter Results * NM BONE WHOLE BODY (11/11/2022 12:21 EDT) Anatomical Region Laterality Modality Nuclear Medicine 11/11/2022 12:4 0 EDT Impressions 11/11/2022 12:40 EDT 1. ??No scintigraphic evidence of osseous metastatic disease. 2. ??Increased radiotracer uptake involving the left maxilla, likely sequela of sinus mucosal disease, correlate accordingly. [id number] Narrative 11/11/2022 12:40 EDT NM BONE WHOLE [...] likelysequela of sinus mucosal disease, correlate accordingly. [id number] us Liat Honeycutt PA-C IMSalbador NM ORDERABLES Final R esult documented in this encounter Visit Diagnoses Diagnosis [...] documented as of this encounter Care Teams Health Evaluator Relationship Specialty Start Date End Date Janay Duran APRN [address] [phone] PCP - General Family Medicine - Primary Care 07/22/22 02/12/24 Pam Germain MD [address] [phone] Medical Oncology 03/22/22 documented as of this encounter
--- OUTSIDE RECORDS SUMMARY | 2024-05-04 01:25 | XMS_ITS | Encounter Summary ---
Author Organization [facility] Address [address] [place] [address] Care Team Providers Care Business Services Representative Name Role Phone Pam Germain MD Unavailable [phone] Janay Duran APRN Primary Care Provider [phone] Reason for Visit * Reason Comments Post-OP Follow Up Bilateral nipple rec onstruction 3.9.23 Encounter Details Date Type Department Care Team (Latest Contact Info) Description 08/05/2022 10:00 EDT Post-op Visit [facility] Plastic, Reconstructive & Cosmetic Surgery - [address], [address] [place] [address] Anali Navas PA-C [address] [place] [phone] Surgery follow-up (Primary Dx) Social History [...] concerns, informed that there is always someone client consultant. Acute changes are asked to be reported. documented in this encounter Plan of Treatment Upcoming Encounters Date Type Department Care Team (Late st Contact Info) Description 02/28/2025 13:00 EDT Office Visit [facility] Surgical Oncology - [address] [phone] Maeve Morales DO [address] [place] [phone] documented as of this encounter Visit Diagnoses Diagnosis Surgery follow-up- Primary Follow-up examination, following unspecified surgery documented in this encounter Care Teams Business Services Representative Relationship Specialty Start Date End Date Janay Duran, WATCH ELECTRICIAN [address] [place] [phone] PCP - General Family Medicine - Primary Care 07/22/22 02/12/24 Pam Germain MD [address] [place] [phone] Medical Oncology 03/22/22 documented as of this encounter
--- OUTSIDE RECORDS SUMMARY | 2024-05-04 01:25 | XMS_ITS | Encounter Summary ---
Author Organization [facility] Address [address] [place] [address] Care Team Providers Care Microbiology Director Name Role Phone Pam Germain MD Unavailable [phone] Janay Duran APRN Primary Care Provider Reason for Visit * Reason Comments Post-OP Follow Up Bilateral nipple rec onstruction-07/22 Encounter Details Date Type Department Care Team (Latest Contact Info) Description 07/26/2022 14:00 EDT Post-op Visit [facility] Plastic, Reconstructive & Cosmetic Surgery - [address], [address] [place] [address] Anali Navas PA-C [address] [place] [phone] Breast pain (Primary Dx); Surgical follow-up [...] Date of Assessment Author No 12/24/2020 17:15 Amarilsy Michaud RN * Because of a physical, [...] Amarilys Michaud RN documented in this encounter Ordered Prescriptions Prescription Sig Dispense Quantity Refills Last Filled Start Date End Date sulfamethoxazole-t rimethoprim (BACTRIM DS) 800-160 mg per tablet Take [...] concerns, informed that there is always someone inside phone sales. Acute changes are asked to be reported. documented in this encounter Miscellaneous Notes * Addendum Note - Justice Barrientos - 07/26/2022 1400 EDTAddended by: JUSTICE BARRIENTOS on: 07/26/2022 18:34 Modules accepted: Orders documented in this encounter Plan of Treatment Upcoming Encounters Date Type Department Care Team (Late st Contact Info) Description 02/28/2025 13:00 EDT Office Visit [facility] Surgical Oncology - [address] [address] Maeve Morales, DO 111 [facility], [facility], [address] [place] [address] documented as of this encounter Procedures Procedure Name Priority Date/Time Associated Diagnosis Comments BACTERIAL CULTURE/SMEAR Routine 07/26/2022 14:37 EDT Breast pain Surgical follow-up care documented in this encounter Results * (ABNORMAL) BACTERIAL CULTURE/SMEAR (07/26/2022 14:37 EDT) Organism ID No Growth 07/28/2022 8:32 EDT [facility] Smear Many Neutrophils Present(A) 07/28/2022 8:32 EDT [facility] Smear No bacteria seen(A) 07/28/2022 8:32 EDT [facility] Swab ACCESSORY NIPPLE / Unknown 07/26/2022 14:37 EDT 07/26/2022 14:37 EDT us Anali Navas PA-C MICROBIOLOGY - GENERAL ORD ERABLES Final Result [facility] [address] [place] [address] documented in this encounter Visit Diagnoses Diagnosis [...] documented as of this encounter Care Teams Microbiology Director Relationship Specialty Start Date End Date Janay Duran APRN [address] [place] [phone] PCP - General Family Medicine - Primary Care 07/22/22 02/12/24 Pam Germain MD [address] [phone] Medical Oncology 03/22/22 documented as of this encounter
--- OUTSIDE RECORDS SUMMARY | 2024-05-04 01:25 | XMS_ITS | Encounter Summary ---
Author Organization [facility] Address [address] [place] [address] Care Team Providers Care Pre K Special Education Teacher Name Role Phone Batsheva Lira JOHN Primary Care Provider [phone] Pam Germain MD Unavailable [phone] Reason for Visit * Reason Comments Follow-up Encounter Details Date Type Department Care Team (Late st Contact Info) Description 06/03/2022 9:40 EST Office Visit [facility] Surgical Oncology - [address] [phone] Maeve Morales, DO 111 [facility], Level 2 [place] [phone] Malignant neoplasm of upper-inner quadrant of left [...] - documented in this encounter Functional Status * [...] Notes * Maeve Morales, DO - 06/03/2022 0937 EST Subjective: Patient ID: Austin Squires is an 46 y.o. female. No chief complaint on file. HPI Austin is seen in late 6-month follow-up for her left breast cancer. As you recall this is a patientthat had a physical examination finding at her OFFICE RECEPTIONIST visit and was sent in for diagnostic [...] This was done with an immediate tissue cane weigher helper reconstruction. Unfortunately her pathology did not show [...] in May of 2021 her right tissue cane weigher helper unexpectedly ruptured and she had to go [...] Info) Description 02/28/2025 13:00 EDT Office Visit [facility] Surgical Oncology - [facility] [address] [place], [place] [phone] Maeve Morales DO 111 [facility] 2 [place] [address] documented as of this encounter Procedures Procedure Name Priority Date/Time Associated Diagnosis Comments ORDERS - SCANNED 06/10/2022 11:45 EST documented in this encounter Results * ORDERS - SCANNED (06/10/2022 11:45 EST) 06/10/2022 11:4 5 EST us Scan 2 Executive Vice President And Chief Operating Officer ADMISSION ORDERABLES Final Result documented in this encounter Visit Diagnoses Diagnosis Malignant 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, estrogen receptor negative (HCC-CMS)- Primary documented in this encounter Historical Medications * This list may reflect changes made after this encounter. UNABLE TO FIND 2 week steroid for arm pain 07/22/2022 added in this encounter Care Teams Pre K Special Education Teacher Relationship Specialty Start Date End Date Batsheva Lira FNP [address] [address] PCP - General 02/19/20 07/21/22 Pam Germain MD 111 [facility] 2 [place] [address] Medical Oncology 03/22/22 documented as of this encounter
--- OUTSIDE RECORDS SUMMARY | 2024-05-04 01:25 | XMS_ITS | Encounter Summary ---
Author Organization [facility] Address [address] [place] [address] Care Team Providers Care Oracle Solutions Architect Name Role Phone Pam Germain MD Unavailable [phone] Janay Duran APRN Primary Care Provider [phone] Reason for Visit * Reason Onset Date Comments Coordination Of Care 10/15/2022 Encounter Details Date Type Department Care Team (Late st Contact Info) Description 10/15/2022 Telephone [facility] Cancer Center Hematology & Oncology - [facility] [address] [place], [place] [phone] France Haynes, RN Coordination Of Care (/) [...] Info) Description 02/28/2025 13:00 EDT Office Visit [facility] Surgical Oncology - [address] [phone] Maeve Morales, DO 111 [facility], [facility], Level 2 [place] [phone] documented as of this encounter Visit Diagnoses Not on filedocumented in this encounter Care Teams Oracle Solutions Architect Relationship Specialty Start Date End Date Janay Duran APRN [address] [place] [address] 2 [place] [phone] PCP - General Family Medicine - Primary Care 07/22/22 02/12/24 Pam Germain MD [address] [place] [phone] Medical Oncology 03/22/22 documented as of this encounter"
--- OUTSIDE RECORDS SUMMARY | 2024-05-04 01:25 | XMS_ITS | Encounter Summary ---
Author Organization [facility] Address [address] [place] [address] Care Team Providers Care Magento Web Developer Name Role Phone Pam Germain MD Unavailable [phone] Janay Duran APRN Primary Care Provider [phone] Reason for Referral * Specialty Diagnoses / Procedures Referred By Contac t Referred To Contact Yelitza Etienne MD [address] [place] [address] Phone: tel: fax: Referral ID Status Reason Start Date Expiration [...] estrogen receptor negative, unspecified laterality (HCC-CMS) Procedures CT NIPPLE/AREOLA RECONSTRUCTION CT GRAFTING OF AUTOLOGOUS FAT BY LIPO [address] RECMPL WND TRUNK 2.6-7.[address] REP,SKIN,TRUNK,CMPLX,+5 CM/< BILATERAL NIPPLE RECONSTRUCTION WITH POSSIBLE FAT GRAFTING and bilateral medial dog ear revision GRAFTING OF AUTOLOGOUS FAT HARVESTED BY LIPOSUCTION TECHNIQUE TO TRUNK, BREASTS, SCALP, ARMS AND/OR LEGS; 50CC OR LESS INJECTATE REPAIR, LACERATION, TORSO, COMPLEX REPAIR, LACERATION, TORSO Referral ID Status Reason Start Date Expiration Date Visits Re quested Visits Authorized [id number] 1 1 Encounter Details Date Type Department Care Team (Latest Contact Info) Description 07/22/2022 10:37 EST - 07/22/2022 17:52 EST Hospital Encounter [facility] [place] [address] [place] [address] Juanito Carcamo MD [address] [place] [address] Discharge Disposition: Home or Self [...] EST documented in this encounter Functional Status * [...] Amarilys Michaud RN documented in this encounter Medications at Time of Discharge cephalexin (KEFLEX) 500 mg capsule Take 1 [...] HCl (METFORMIN ORAL) Take by mouth. 10/14/2022 traZODone (DESYREL) 50 mg tablet Take 50 mg by mouth as needed. 12/03/2022 documented as of this encounter Ordered Prescriptions Prescription Sig Dispense Quantity Refills Last Filled Start Date End Date cephalexin (KEFLEX) 500 mg capsule Take 1 Capsule by mouth every 6 hours for 5 days. 20 Capsule 07/22/2022 3 HYDROmorphone (DILAUDID) 2 mg tablet Take 1 Tablet by mouth every 4 hours as needed for Pain. Daily Max: 12 mg 5 Tablet 07/22/2022 3 documented in this encounter Discharge Disposition Disposition Code Departure Means Destination Home or Self Long-Term documented in this encounter H&P Notes * [...] disc disease ??? Bladder incontinence ??? Cancer ([facility]) ([facility]) Noted 07/19/2022: breast ??? Diabetes mellitus, type 2 ([facility]) Noted 07/19/2022: not currently on meds, last [...] PACU Colleen Marin MD PGY4 07/22/2022 10:56 #[phone] (Plastics Service Pager) Cosigned by Juanito Carcamo MD FACS at 07/22/2022 15:52 EST documented in this encounter OR Notes * OR Surgeon - Juanito Carcamo MD FACS - 07/22/2022 1752 EST BILATERAL NIPPLE RECONSTRUCTION AND RIGHT MEDIAL DOG EAR REVISION (B) Operative Note Date: 07/22/2022 Location: [facility] OR Name: Austin Squires, : 1975, Diagnosis [...] Monocryl and running 4-0 Monocryl. Next modified Lcpc V flaps with 1 cm base and [...] NSAIDs Colleen Marin MD PGY4 07/22/2022 15:55 #[phone] (Plastics Service Pager) documented in this encounter Plan of Treatment Upcoming Encounters Date Type Department Care Team (Late st Contact Info) Description 02/28/2025 13:00 EDT Office Visit [facility] Surgical Oncology - [address] [phone] Maeve Morales, DO 111 [facility], [facility], Level 2 [place] [address] Scheduled Referrals Name Type Priority Associated Diagnoses Order Schedule PROVIDER FOLLOW-UP INSTRUCTIONS Outpatient Referral Routine Ordered: 07/22/2022 documented as of this encounter Procedures Procedure Name Priority Date/Time Associated Diagnosis Comments SURGICAL PATHOLOGY Routine 07/22/2022 13 :58 EST RECONSTRUCTION, NIPPLE AND AREOLA, BILATERAL 07/22/2022 12:57 EST 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, estrogen receptor negative, unspecified laterality ([facility]) POCT GLUCOSE, INTERFACED Routine 07/22/2022 11:44 EST [...] explore management options, if applicable. 07/27/2022 14:05 [facility] Final Diagnosis A. SKIN OF RIGHT BREAST, MASTECTOMY SCAR, EXCISION: - Chronic inflammation and dermal fibrosis (incisional scar). 07/27/2022 14:05 [facility] Attestation There was significant resident/fellow involvement in the diagnostic evaluation of this case. By the signature below, the attending physician certifies that they have personally conducted a gross and/or microscopic examination of the described specimens and rendered or confirmed the above diagnosis. 07/27/2022 14:05 [facility] at 1405 Clinical History 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, estrogen receptor negative, unspecified laterality (HCC-CMS) ([facility]) 07/27/2022 14:05 [facility] Gross Description A. Received [...] serially sectioned to reveal unremarkable cut surfaces. Coal Digger sections are submitted in A1. SOCORRO BOWENS(ASCP) 07/23/2022 9:34 07/27/2022 14:05 [facility] Resident/Chris w: Dilia Mcmillan MD 07/27/2022 14:05 [facility] Performing Lab [facility] 07/27/2022 14:05 [facility] Scanned Images 07/27/2022 14:05 [facility] Tissue TISSUE SPECIMEN FROM SKIN / Unknown 07/22/2022 13:58 EST 07/22/2022 18:36 EST us Juanito Carcamo MD FACS PATHOLOGY ORDERABLES Final Result [facility] [address] [place] [address] * (ABNORMAL) POCT GLUCOSE, INTERFACED (07/22/2022 11:44 EST) Glucose, POC 139(H) 70 - 100 mg/dL 07/22/2022 11:52 EST [facility] HN LAB POC COMMENT (GLUCOSE) Test Performed by Nursing Services 07/22/2022 11:52 EST [facility] Blood CAPILLARY BLOOD / Unknown 07/22/2022 11:44 EST 07/22/2022 11:52 EST us Juanito Carcamo MD FACS POINT OF CARE TEST O RDERABLES Final Result [facility] [address] [place] [address] * TEST, URINE (07/22/2022 11:19 EST) Test, Urine Negative Negative 07/22/2022 11:37 EST [facility] Comment:False negative resul ts may occur in women who are beyond 5-8 weeks gestation. Diagnosis of should be based on a correlation of test results with typical clinical signs and symptoms. Urine URINE / Unknown Urine Collect / Unknown 07/22/2022 11:19 EST 07/22/2022 11:24 EST us Devan Maldonado MD URINALYSIS ORDERABLES Final R esult [facility] [address] [place] [address] documented in this encounter Visit Diagnoses Diagnosis [...] 07/22/2022 documented in this encounter Care Teams Magento Web Developer Relationship Specialty Start Date End Date Janay Duran APRN [address] [address] PCP - General Family Medicine - Primary Care 07/22/22 02/12/24 Pam Germain MD [address] [place] [address] 2 [place] [phone] Medical Oncology 03/22/22 documented as of this encounter
--- OUTSIDE RECORDS SUMMARY | 2024-05-04 01:25 | XMS_ITS | Encounter Summary ---
Author Organization [facility] Address [address] [place] [address] Care Team Providers Care Water Supply Technician Name Role Phone Batsheva Lira JOHN Primary Care Provider [phone] Pam Germain MD Unavailable [phone] Encounter Details Date Type Department Care Team (Latest Contact Info) Description 07/19/2022 16:15 EST - 07/19/2022 23:59 EST Hospital Encounter [facility] Main [place] Pre-Surgical Testing [address] [place], [place] [phone] Discharge Disposition: Home or Self Care Social [...] Info) Description 02/28/2025 13:[address] [facility] Surgical Oncology - [address] [phone] Maeve Morales DO [address] [place] [phone] documented as of this encounter Visit Diagnoses Not on filedocumented in this encounter Care Teams Water Supply Technician Relationship Specialty Start Date End Date Batsheva Lira FNP [address] [address] PCP - General 02/19/20 07/21/22 Pam Germain MD [address] [place] [phone] Medical Oncology 03/22/22 documented as of this encounter
--- OUTSIDE RECORDS SUMMARY | 2024-05-04 01:25 | XMS_ITS | Encounter Summary ---
Author Organization [facility] Address [address] [place] [address] Care Team Providers Care Travel Services Professional Name Role Phone Batsheva Lira JOHN Primary Care Provider [phone] Pam Germain MD Unavailable [phone] Reason for Visit * Reason Onset Date Comments Appointment Related 07/15/2022 Encounter Details Date Type Department Care Team (Late st Contact Info) Description 07/15/2022 Telephone [facility] Surgical Oncology - [address] [phone] Maeve Morales, DO 111 [facility], [facility] 2 [place] [phone] Appointment Related Social History Tobacco Use Types [...] 11/26/[address] Morales. 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 Starting new job Please advise documented in this encounter Plan of Treatment Upcoming Encounters Date Type Department Care Team (Late st Contact Info) Description 02/28/2025 13:00 EDT Office Visit [facility] Surgical Oncology - [address] [phone] Maeve Morales, DO [address] [phone] documented as of this encounter Visit Diagnoses Not on filedocumented in this encounter Care Teams Travel Services Professional Relationship Specialty Start Date End Date Batsheva Lira FNP [address] [phone] PCP - General 02/19/20 07/21/22 Pam Germain MD [address] [place] [phone] Medical Oncology 03/22/22 documented as of this encounter
--- OUTSIDE RECORDS SUMMARY | 2024-05-04 01:25 | XMS_ITS | Encounter Summary ---
Author Organization [facility] Address [address] [place] [address] Care Team Providers Care Supervisor Wrapping Room Name Role Phone Pam Germain MD Unavailable [phone] Janay Duran APRN Primary Care Provider [phone] Reason for Visit * Auth/Cert (Routine) Specialty Diagnoses / Procedures Referred By [facility] Referred To Contact Diagnoses 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, estrogen receptor negative, unspecified laterality (HCC-CMS) Procedures LA NIPPLE/AREOLA RECONSTRUCTION LA GRAFTING OF AUTOLOGOUS FAT BY LIPO 50 CC OR LESS LA RECMPL WND TRUNK 2.6-7.5 CM LA REP,SKIN,TRUNK,CMPLX,+5 CM/< BILATERAL NIPPLE RECONSTRUCTION WITH POSSIBLE FAT GRAFTING and bilateral medial dog ear revision GRAFTING OF AUTOLOGOUS FAT HARVESTED BY LIPOSUCTION TECHNIQUE TO TRUNK, BREASTS, SCALP, ARMS AND/OR LEGS; 50CC OR LESS INJECTATE REPAIR, LACERATION, TORSO, COMPLEX REPAIR, LACERATION, TORSO Referral ID Status Reason Start Date Expiration Date Visits Re quested Visits Authorized [id number] 1 1 Encounter Details Date Type Department Care Team (Late st Contact Info) Description 07/22/2022 13:07 EST Anesthesia Event [facility] Main [place] OR [address] [place] [address] Elizabeth Rodríguez MD 111 [facility], Level 2 [place] [address] Emelina Guillermo, DIRECTOR OF EMPLOYER SERVICES 111 [facility], Level 2 [place] [address] Anesthesia Record Procedure Summary Procedure [...] IPA, 70% IPA; Power Inject; Right Atrium; [id number]; [id number] 08/08/20 1002 by Estrella Westbrook RN Wound 01/11/22; 1102; Inci vu; Right; Breast; s/p breast reconstruction, removal of tissue flame channeler with placement of silicone implant and fat grafting; horizontal incision with multiple puncture sites; N; Full thickness 01/11/22 1102 by Naz Gonzales RN Wound 01/11/22; 1103; Inci vu; Left; Breast; s/p breast reconstruction, removal of tissue flame channeler with placement of silicone implant and fat [...] 07/22/22; 1606 07/22/22 1324 by Emelina Guillermo CRNA 07/22/22 1606 by Salome Marin CRNA Urethral [...] Amarilys Valentin RN documented in this encounter OR Notes * Anesthesia Postprocedure Evaluation - Salome Marin CRNA - 07/22/2022 1619 EST Patient: Austin Squires Vital signs were [...] and Staff Patient location during procedure: OR Resident/DIRECTOR OF EMPLOYER SERVICES: Emelina Guillermo CRNA Performed: resident/DIRECTOR OF EMPLOYER SERVICES/AA Indications and Patient Condition Indications for airway [...] disc disease ??? Bladder incontinence ??? Cancer ([facility]) (HCC) Noted 07/19/2022: breast ??? Diabetes [...] 02/28/2025 13:00 EDT Office Visit [facility] Surgical Oncology - [address] [address] Maeve Morales, [address] [place] [address], Level 2 [place] [address] documented as of this encounter Procedures Procedure Name Priority Date/Time Associated Diagnosis Comments ANESTHESIA INTUBATION Routine 07/22/2022 13:15 EST documented in this encounter Results * LA AN ELECTIVE ENDOTRACHEAL AIRWAY (07/22/2022 13:15 EST) Narrative Emelina Guillermo CRNA - 07/22/2022 13:15 EST Emelina Guillermo CRNA ? 07/22/2022 13:24 Airway Date/Time: 07/22/2022 13:15 Urgency: elective Airway not difficult General Information and Staff Patient location during procedure: OR Resident/DIRECTOR OF EMPLOYER SERVICES: Emelina Guillermo CRNA Performed: resident/DIRECTOR OF EMPLOYER SERVICES/AA Indications and Patient Condition Indications for airway [...] approaches attempted: 0 Elizabeth Rodríguez MD ANESTHESIA ORDERA BLES Final Result documented in this encounter Visit Diagnoses Not [...] mg documented in this encounter Care Teams Supervisor Wrapping Room Relationship Specialty Start Date End Date Janay Duran, BAGGAGE HANDLING SUPERVISOR [address] [phone] PCP - General Family Medicine - Primary Care 07/22/22 02/12/24 Pam Germain MD 111 [facility] 2 [place] [phone] Medical Oncology 03/22/22 documented as of this encounter
--- OUTSIDE RECORDS SUMMARY | 2024-05-04 01:25 | XMS_ITS | Encounter Summary ---
Author Organization [facility] Address [address] [place] [address] Care Team Providers Care Financial Associate Name Role Phone Pam Germain MD Unavailable [phone] Janay Duran APRN Primary Care Provider [phone] Reason for Visit * Radiology Services (Routine/Next Available) - Authorization Not Required Specialty Diagnoses / Procedures Referred By Contac t Referred To Contact Nuclear Medicine Diagnoses Malignant 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, estrogen receptor negative (HCC-CMS) Pain of right hip Procedures NM BONE WHOLE BODY Liat Honeycutt, TACO Phone: tel: fax: [facility] Referral ID Status Reason Start Date Expiration Date Visits Requested Visits Authorized [id number] Authorization Not Required 10/17/2022 1 1 Encounter Details Date Type Department Care Team (Latest Contact Info) Description 11/11/2022 8:46 EDT - 11/11/2022 23:59 EDT Hospital Encounter [facility] Radiology Nuclear Medicine and PET - [address] [phone] Discharge Disposition: Home or Self Care Social [...] Info) Description 02/28/2025 13:00 EDT Office Visit [facility] Surgical Oncology - [address] [address] Maeve Morales, DO 111 [facility], Level 2 [place] [address] documented as of this [...] sequela of sinus mucosal disease, correlate accordingly. [id number] Narrative 11/11/2022 12:40 EDT NM BONE WHOLE [...] likelysequela of sinus mucosal disease, correlate accordingly. [id number] us Liat Honeycutt PA-C IMG NM ORDERABLES Final R esult documented in this encounter Visit Diagnoses Not on filedocumented in this encounter Care Teams Financial Associate Relationship Specialty Start Date End Date Janay Duran APRN [address] [address] PCP - General Family Medicine - Primary Care 07/22/22 02/12/24 Pam Germain MD [address] [phone] Medical Oncology 03/22/22 documented as of this encounter
--- OUTSIDE RECORDS SUMMARY | 2024-05-04 01:25 | XMS_ITS | Encounter Summary ---
Author Organization [facility] Address [address] [place] [address] Care Team Providers Care Refinery Superintendent Name Role Phone Pam Germain MD Unavailable [phone] Janay Duran APRN Primary Care Provider [phone] Encounter Details Date Type Department Care Team (Latest Contact Info) Description 10/14/2022 16:00 EDT Phlebotomy Only [facility] Hematology & Oncology - [address] [place], [place] [address] Blood Doctor, [facility] Hem Onc Malignant neoplasm of upper-inner quadrant [...] documented in this encounter Progress Notes * Sasha Cooper MA - 10/14/2022 1600 EDT Venipuncture performed for Germain Per orders of Germain Number of attempts 1, right ac I was supervised by Bradley who was present and immediately available in the office suite. SASHA COOPER MA 10/14/2022 16:18 documented in this encounter Plan of Treatment Upcoming Encounters Date Type Department Care Team (Late st Contact Info) Description 02/28/2025 13:00 EDT Office Visit [facility] Surgical Oncology - [address] [address] Maeve Morales, DO 111 [facility], [facility], Level 2 [place] [address] [phone] (work) documented as of this encounter Procedures [...] 8.44 4.00 - 12.40 K/cmm 10/14/2022 16:40 [facility] RBC 4.82 3.86 - 5.04 M/cmm 10/14/2022 16:40 [facility] Hemoglobin 14.3 11.6 - 15.2 g/dL 10/14/2022 16:40 [facility] HCT 41.5 34.9 - 44.4 % 10/14/2022 16:40 [facility] MCV 86 81 - 98 fL 10/14/2022 16:40 [facility] MCH 29.7 26.7 - 33.3 pg 10/14/2022 16:40 [facility] MCHC 34.5 32.1 - 35.9 g/dL 10/14/2022 16:40 [facility] RDW-CV 11.9 <14.7 % 10/14/2022 16:40 [facility] RDW-SD 37.3 <50.4 fl 10/14/2022 16:40 [facility] PLT 291 141 - 377 K/cmm 10/14/2022 16:40 [facility] MPV 9.8 9.5 - 12.7 fL 10/14/2022 16:40 [facility] % Neutrophils 61.4 % 10/14/2022 16:40 [facility] % Lymphocytes 25.9 % 10/14/2022 16:40 [facility] % Monocytes 10.5 % 10/14/2022 16:40 [facility] % Eosinophils 1.2 % 10/14/2022 16:40 [facility] % Basophils 0.8 % 10/14/2022 16:40 [facility] % Immature Grans 0.2 % 10/15/19 16:40 [facility] Absolute Neutrophils 5.17 2.20 - 8.85 K/cmm 10/14/2022 16:40 [facility] Absolute Lymphocytes 2.19 1.09 - 3.30 K/cmm 10/14/2022 16:40 [facility] Absolute Monocytes 0.89(H) 0.10 - 0.80 K/cmm 10/14/2022 16:40 [facility] Absolute Eosinophils 0.10 0.03 - 0.61 K/cmm 10/14/2022 16:40 [facility] ABS Basophils 0.07 0.01 - 0.11 K/cmm 10/14/2022 16:40 [facility] Absolute Immature Grans 0.02 0.00 - 0.06 K/cmm 10/14/2022 16:40 [facility] Type of Differential: Auto 10/14/2022 16:40 [facility] Blood VENOUS BLOOD / Unknown Venipuncture / Unknown 10/14/2022 16:26 EDT 10/14/2022 16:29 EDT us Pam Germain MD PACKAGES & DNA PROBE ORDERABLES Final Result [facility] [address] [place] [address] * (ABNORMAL) COMPREHENSIVE METABOLIC PANEL (ONCOLOGY USE ONLY-INC MG) (10/14/2022 16:26 EDT) Sodium 136 136 - 145 mmol/L 10/14/2022 16:47 [facility] Potassium 3.9 3.5 - 5.0 mmol/L 10/14/2022 16:47 [facility] Chloride 101 96 - 110 mmol/L 10/14/2022 16:47 [facility] CO2 Total 25 22 - 32 mmol/L 10/14/2022 16:47 [facility] Glucose 174(H) 70 - 100 mg/dl 10/14/2022 16:47 [facility] BUN 10 10 - 26 mg/dL 10/14/2022 16:47 [facility] Creatinine 0.45(L) 0.52 - 1.04 mg/dL 10/14/2022 16:47 [facility] eGFR 119 >60 mL/min/1.7 3m2 10/14/2022 16:47 [facility] Total Protein 7.1 6.3 - 8.2 g/dL 10/14/2022 16:47 [facility] Albumin 4.5 3.4 - 4.9 g/dL 10/14/2022 16:47 [facility] Alkaline Phosphatase 109 38 - 126 U/L 10/14/2022 16:47 [facility] AST 50(H) 15 - 46 U/L 10/14/2022 16:47 [facility] ALT 63(H) <35 U/L 10/14/2022 16:47 [facility] Bilirubin, Total <0.5 <1.4 mg/dL 10/15/19 16:47 [facility] Calcium 9.3 8.5 - 10.5 mg/dL 10/14/2022 16:47 [facility] Magnesium 1.7 1.7 - 2.8 mg/dL 10/14/2022 16:47 [facility] Albumin/Globulin Ratio 1.7 1.0 - 2.5 10/14/2022 16:47 [facility] Anion Gap 10 5 - 14 mmol/L 10/14/2022 16:47 EDT [facility] Blood VENOUS BLOOD / Unknown Venipuncture / Unknown 10/14/2022 16:26 EDT 10/14/2022 16:29 EDT us Pam Germain MD CHEMISTRY & BLOOD GAS ORDERABLE S Final Result [facility] [address] [place] [address] documented in this encounter Visit Diagnoses Diagnosis Malignant 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, estrogen receptor negative (HCC-CMS)- Primary documented in this encounter Care Teams Refinery Superintendent Relationship Specialty Start Date End Date Janay Duran, NUT SIFTER [address] [phone] PCP - General Family Medicine - Primary Care 07/22/22 02/12/24 Pam Germain MD [address] [place] [phone] Medical Oncology 03/22/22 documented as of this encounter
--- OUTSIDE RECORDS SUMMARY | 2024-05-04 01:25 | XMS_ITS | Encounter Summary ---
Author Organization Health system Address [address] [place] [address] Care Team Providers Care Bilingual Receptionist Name Role Phone Pam Germain MD Unavailable [phone] Janay Duran APRN Primary Care Provider [phone] Reason for Visit * Reason Comments Follow-up Encounter Details Date Type Department Care Team (Late st Contact Info) Description 08/02/2022 9:00 EDT Office Visit [facility] Plastic, Reconstructive & Cosmetic Surgery - [address], [address] [place] [address] Oksana Wilkins PA-C [address] [place] [phone] Surgery follow-up (Primary Dx) Social History [...] Info) Description 02/28/2025 13:00 EDT Office Visit [facility] Surgical Oncology - [address] [address] Maeve Morales DO [address] [phone] documented as of this encounter Visit Diagnoses Diagnosis Surgery follow-up- Primary Follow-up examination, following unspecified surgery documented in this encounter Discontinued Medications Medication Sig Discontinue Reason Start Date End Da te sulfamethoxazole-trimeth oprim (BACTRIM DS) 800-160 mg per tablet Take 1 Tablet by mouth every 12 hours for 7 days. Reorder 07/26/2022 08/02/2022 documented as of this encounter Care Teams Bilingual Receptionist Relationship Specialty Start Date End Date Janay Duran, DOLPHIN RESEARCHER [address] [phone] PCP - General Family Medicine - Primary Care 07/22/22 02/12/24 Pam Germain MD 111 [facility], [facility], Level [address] [place] [phone] Medical Oncology 03/22/22 documented as of this encounter
--- OUTSIDE RECORDS SUMMARY | 2024-05-04 01:25 | XMS_ITS | Encounter Summary ---
Author Organization [facility] Address [address] [place] [address] Care Team Providers Care Second Watch Sergeant Name Role Phone Pam Germain MD Unavailable [phone] Janay Duran APRN Primary Care Provider [phone] Reason for Referral * Radiology Services (Routine/Next Available) - Authorization Not Required Specialty Diagnoses / Procedures [facility] Referred To Contact Diagnoses Cervical radiculopathy Procedures XR CERVICAL SPINE 4-5 VIEWS Briseyda Gilliam NP Phone: tel: fax: [facility] Referral ID Status Reason Start Date Expiration Date Visits Requested Visits Authorized [id number] Authorization Not Required 07/26/2022 1 1 Encounter Details Date Type Department Care Team (Late st Contact Info) Description 07/26/2022 Orders Only [facility] Neurosurgery - [address] [id number] Briseyda Gilliam NP 111 [facility], Level 5 [place] [address] Cervical radiculopathy (Primary Dx) Social History [...] Date of Assessment Author No 12/24/2020 17:15 Amarliys Michaud RN documented as of this encounter [...] 02/28/2025 13:00 EDT Office Visit [facility] Surgical Oncology - [address] [address] Maeve Morales, DO 111 [facility], [facility], Level [address] [place] [phone] documented as of this encounter Results * [...] nos documented in this encounter Care Teams Second Watch Sergeant Relationship Specialty Start Date End Date Janay Duran APRN 111 [facility] 2 [place] [phone] PCP - General Family Medicine - Primary Care 07/22/22 02/12/24 Pam Germain MD [address] [phone] Medical Oncology 03/22/22 documented as of this encounter
--- OUTSIDE RECORDS SUMMARY | 2024-05-04 01:25 | XMS_ITS | Encounter Summary ---
Author Organization [facility] Address [address] [place] [address] Care Team Providers Care Employer Relations Representative Name Role Phone Batsheva Lira JOHN Primary Care Provider [phone] Pam Germain MD Unavailable [phone] Reason for Referral * Radiology Services (Routine/Next Available) - Authorization Not Required Specialty Diagnoses / Procedures Referred By Contac t Referred To Contact Radiology Diagnoses Radiculopathy, cervical region Procedures MR CERVICAL SPINE WO CONTRAST Daren Larios MD Phone: tel: fax: [facility] Referral ID Status Reason Start Date Expiration Date Visits Requested Visits Authorized [id number] Authorization Not Required 06/24/2022 1 1 Reason for Visit * Radiology Services (Routine/Next Available) - Authorization Not Required Specialty Diagnoses / Procedures Referred By Contac t Referred To Contact Radiology Diagnoses Radiculopathy, cervical region Procedures MR CERVICAL SPINE WO CONTRAST Daren Larios MD Phone: tel: fax: [facility] Referral ID Status Reason Start Date Expiration Date Visits Requested Visits Authorized [id number] Authorization Not Required 06/24/2022 1 1 Encounter Details Date Type Department Care Team (Latest Contact Info) Description 07/01/2022 7:39 EST - 07/01/2022 23:59 EST Hospital Encounter Medical Center Radiology [facility] [place] [address] Radiculopathy, cervical region Discharge Disposition: Home or [...] 13:00 EDT Office Visit [facility] Surgical Oncology - [address] [phone] Maeve Morales, 111 [facility], Level [address] [place] [phone] documented as of this encounter Procedures Procedure [...] the left and moderate on the right. us Daren Larios MD IMG MRI ORDERABLES Final Result documented in this encounter Visit Diagnoses Diagnosis Radiculopathy, cervical region Brachial neuritis or radiculitis nos documented in this encounter Care Teams Employer Relations Representative Relationship Specialty Start Date End Date Batsheva Lira FNP [facility] [address] [phone] PCP - General 02/19/20 07/21/22 Pam Germain MD [address] [place] [address] 2 [place] [phone] Medical Oncology 03/22/22 documented as of this encounter
--- OUTSIDE RECORDS SUMMARY | 2024-05-04 01:25 | XMS_ITS | Encounter Summary ---
Author Organization [facility] Address [address] [place] [address] Care Team Providers Care Varnish Inspector Name Role Phone Batsheva Lira JOHN Primary Care Provider [phone] Pam Germain MD Unavailable [phone] Reason for Referral * PT/OT/ST (STAT) - New Request Specialty Diagnoses / Procedures Referred By Jne gonzáles Referred To Contact Rehab Therapies Diagnoses Sprain of interphalangeal joint of left thumb, initial encounter Numbness and tingling in both hands Giovany Valverde PA-C Phone: tel: fax: [facility] Rehabilitation Therapy - [address] [address] Phone: tel: fax: Referral ID Status Reason Start Date Expiration Date Visits Requested Visits Authorized [id number] New Request Specialty Services Required 2 1 1 Question Answer Reason for Request: Please treat with a thumb-based splint immobilizing the IP joint of the left thumb. Comments Patient can start doing some light range of motion in the next 2 to 3 weeks. Reason for Visit * Reason Comments Pain * Consult (Routine/Next Available) - Order Cancelled Specialty Diagnoses / Procedures Referred By Jen gonzáles Referred To Contact Orthopedic Surgery Diagnoses Injury of left thumb, chen Marcellus, Pam Sunshine MD Phone: tel: fax: [facility] Hand & Upper Extremity Program - [address] [place] [address] Phone: tel: fax: Referral ID Status Reason Start Date Expiration Date Visits Requested Visits Authorized [id number] Order Cancelled Specialty Services Required 04/23/2022 1 1 Encounter Details Date Type Department Care Team (Latest Contact Info) Description 05/11/2022 14:30 EST Office Visit [facility] Hand & Upper Extremity Program - [address] [place] [address] Giovany Valverde PA-C [address] [place] [address] Sprain of interphalangeal joint of [...] documented in this encounter Progress Notes * Giovany Valverde [...] pressure. She mentioned this problem to her animal ride manager/oncologist in April 2022 during a routine appointment, [...] thumb. ASSESSMENT: Austin Squires is a 46-year-old [id number] female with a left thumb IP joint [...] Info) Description 02/28/2025 13:00 EDT Office Visit [facility] Surgical Oncology - [address] [address] Maeve Morales, [address] [place] [address], Level [address] [place] [phone] Scheduled Referrals Name Type Priority Associated Diagnoses [...] 05/11/2022 documented in this encounter Care Teams Varnish Inspector Relationship Specialty Start Date End Date Batsheva Lira FNP [address] [place] [phone] PCP - General 02/19/20 07/21/22 Pam Germain MD 111 [facility], [address] [place] [address] Medical Oncology 03/22/22 documented as of this encounter
--- OUTSIDE RECORDS SUMMARY | 2024-05-04 01:25 | XMS_ITS | Encounter Summary ---
Author Organization [facility] Address [address] [place] [address] Care Team Providers Care Manager Target Name Role Phone Batsheva Lira JOHN Primary Care Provider [phone] Pam Germain MD Unavailable [phone] Reason for Visit * Reason Onset Date Comments Follow-up Diagnostic PSG 07/21/2022 Encounter Details Date Type Department Care Team (Late st Contact Info) Description 07/21/2022 Telephone [facility] General Surgery - Main [place] [address] [place] [address] Juanito Carcamo MD [address] [place] [phone] Follow-up Diagnostic PSG Social History Tobacco [...] Info) Description 02/28/2025 13:00 EDT Office Visit [facility] Surgical Oncology - [address] [address] Maeve Morales, DO 111 [facility], [facility], Level [address] [place] [phone] documented as of this encounter Visit Diagnoses Not on filedocumented in this encounter Care Teams Manager Target Relationship Specialty Start Date End Date Batsheva Lira FNP [address] [phone] PCP - General 02/19/20 07/21/22 Pam Germain MD [address] [place] [address] 2 [place] [phone] Medical Oncology 03/22/22 documented as of this encounter
--- OUTSIDE RECORDS SUMMARY | 2024-05-04 01:25 | XMS_ITS | Encounter Summary ---
Author Organization [facility] Address [address] [place] [address] Care Team Providers Care Floral Designer Salesperson Name Role Phone Pam Germain MD Unavailable [phone] Janay Duran APRN Primary Care Provider Inez Corado DO Primary Care Provid er Reason for Visit * Reason Onset Date Comments Post-op Problem 07/26/2022 Encounter Details Date Type Department Care Team (Late st Contact Info) Description 07/26/2022 Telephone [facility] Plastic, Reconstructive & Cosmetic Surgery - [address], [address] [place] [address] Katia Degroot, RADHA [address] [place] [address] Post-op Problem Social History Tobacco Use [...] in a message over the weekend, through [employer]. She noticed some redness and swelling atthe [...] Info) Description 02/28/2025 13:00 EDT Office Visit [facility] Surgical Oncology - [address] [address] Maeve Morales DO [address] [phone] documented as of this encounter Visit Diagnoses Not on filedocumented in this encounter Care Teams Floral Designer Salesperson Relationship Specialty Start Date End Date Janay Duran, CARDING DOUBLER [address] [place] [phone] PCP - General Family Medicine - Primary Care 07/22/22 02/12/24 Inez Corado DO [address] [place] [phone] PCP - General Family Medicine - Primary Care 02/13/24 Pam Germain MD [address] [place] [phone] Medical Oncology 03/22/22 documented as of this encounter
--- OUTSIDE RECORDS SUMMARY | 2024-05-04 01:25 | XMS_ITS | Encounter Summary ---
Author Organization [facility] Address [address] [place] [address] Care Team Providers Care Laundry Attendant Name Role Phone Pam Germain MD Unavailable [phone] Janay Duran APRN Primary Care Provider [phone] Reason for Visit * Auth/Cert (Routine) Specialty Diagnoses / Procedures [facility]erred To Contact Diagnoses 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, estrogen receptor negative, unspecified laterality (HCC-CMS) Procedures TX NIPPLE/AREOLA RECONSTRUCTION TX GRAFTING OF AUTOLOGOUS FAT BY LIPO 50 CC OR LESS TX RECMPL WND TRUNK 2.6-7.5 CM TX REP,SKIN,TRUNK,CMPLX,+5 CM/< BILATERAL NIPPLE RECONSTRUCTION WITH POSSIBLE FAT GRAFTING and bilateral medial dog ear revision GRAFTING OF AUTOLOGOUS FAT HARVESTED BY LIPOSUCTION TECHNIQUE TO TRUNK, BREASTS, SCALP, ARMS AND/OR LEGS; 50CC OR LESS INJECTATE REPAIR, LACERATION, TORSO, COMPLEX REPAIR, LACERATION, TORSO Referral ID Status Reason Start Date Expiration Date Visits Re quested Visits Authorized [id number] 1 1 Encounter Details Date Type Department Care Team (Late st Contact Info) Description 07/22/2022 12:35 EST - 07/22/2022 17:05 EST Surgery [facility] OR [address] [place] [address] Juanito Carcamo MD [address] [place] [address] BILATERAL NIPPLE RECONSTRUCTION AND RIGHT MEDIAL DOG EAR REVISION [[id number] (CPT??)] Surgery Details Date/Time Status Location OR Service Patient Class Case Cl ass Case Type Trauma Case? 07/22/2022 1235 Posted [facility] OR [address] Outpatient Surgery H - Elective Panel [...] hours for 5 days. 20 Capsule 07/22/2022 HYDROmorphone (DILAUDID) 2 mg tablet Take 1 Tablet by mouth every 4 hours as needed for Pain. Daily Max: 12 mg 5 Tablet 07/22/2022 3 documented in this encounter Discharge Disposition Disposition Code Departure Means Destination Home or Self Residential documented in this encounter H&P Notes * [...] disc disease ??? Bladder incontinence ??? Cancer ([facility]) ([facility]) Noted 07/19/2022: breast ??? Diabetes mellitus, type 2 ([facility]) Noted 07/19/2022: not currently on meds, last [...] PACU Colleen Marin MD PGY4 07/22/2022 10:56 #[id number] (Plastics Service Pager) Cosigned by Juanito Carcamo MD FACS at 07/22/2022 15:52 EST documented in this encounter OR Notes * OR Surgeon - Juanito Carcamo MD FACS - 07/22/2022 1752 EST BILATERAL NIPPLE RECONSTRUCTION AND RIGHT MEDIAL DOG EAR REVISION (B) Operative Note Date: 07/22/2022 Location: [facility] OR Name: [place], : 1975, Diagnosis [...] Monocryl and running 4-0 Monocryl. Next modified Management Scientist V flaps with 1 cm base and [...] Note - Colleen Marin MD - 07/22/2022 1550 EST Plastic Surgery Brief Op Note Date [...] NSAIDs Colleen Marin MD PGY4 07/22/2022 15:55 #[id number] (Plastics Service Pager) documented in this encounter Plan of Treatment Upcoming Encounters Date Type Department Care Team (Late st Contact Info) Description 02/28/2025 13:00 EDT Office Visit [facility] Surgical Oncology - [address] [phone] Maeve Morales, 111 [facility], Level 2 [place] [address] Scheduled Referrals Name Type Priority Associated Diagnoses Order Schedule PROVIDER FOLLOW-UP INSTRUCTIONS Outpatient Referral Routine Ordered: 07/22/2022 documented as of this encounter Procedures Procedure Name Priority Date/Time Associated Diagnosis Comments SURGICAL PATHOLOGY Routine 07/22/2022 13 :58 EST RECONSTRUCTION, NIPPLE AND AREOLA, BILATERAL 07/22/2022 12:57 EST 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, estrogen receptor negative, unspecified laterality ([facility]) POCT GLUCOSE, INTERFACED Routine 07/22/2022 11:44 [...] explore management options, if applicable. 07/27/2022 14:[address] [facility] Final Diagnosis A. SKIN OF RIGHT BREAST, MASTECTOMY SCAR, EXCISION: - Chronic inflammation and dermal fibrosis (incisional scar). 07/27/2022 14:[address] [facility] Attestation There was significant resident/fellow involvement in the diagnostic evaluation of this case. By the signature below, the attending physician certifies that they have personally conducted a gross and/or microscopic examination of the described specimens and rendered or confirmed the above diagnosis. 07/27/2022 14:05 [facility] at 1405 Clinical History 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, estrogen receptor negative, unspecified laterality (HCC-CMS) (HCC) 07/27/2022 14:05 [facility] Gross Description A. Received [...] serially sectioned to reveal unremarkable cut surfaces. Veterinary Science Teacher sections are submitted in A1. SOCORRO BOWENS(ASCP) 07/23/2022 9:34 07/27/2022 14:05 [facility] Resident/Chris w: Dilia Mcmillan MD 07/27/2022 14:05 [facility] Performing Lab [facility] 07/27/2022 14:05 [facility] Scanned Images 07/27/2022 14:05 [facility] Tissue TISSUE SPECIMEN FROM SKIN / Unknown 07/22/2022 13:58 EST 07/22/2022 18:36 EST us Juanito Carcamo MD FACS PATHOLOGY ORDERABLES Final Result [facility] [address] [place] [address] * (ABNORMAL) POCT GLUCOSE, INTERFACED (07/22/2022 11:44 EST) Glucose, POC 139(H) 70 - 100 mg/dL 07/22/2022 11:[address] [facility] HN LAB POC COMMENT (GLUCOSE) Test Performed by Nursing Services 07/22/2022 11:[address] [facility] Blood CAPILLARY BLOOD / Unknown 07/22/2022 11:44 EST 07/22/2022 11:52 EST us Juanito Carcamo MD FACS POINT OF CARE TEST O RDERABLES Final Result Performing Organization Address [facility] Co de Phone Number [facility] [address] [place] [address] * TEST, URINE (07/22/2022 11:19 EST) Test, Urine Negative Negative 07/22/2022 11:[address] [facility] Comment:False negative resul ts may occur in women who are beyond 5-8 weeks gestation. Diagnosis of should be based on a correlation of test results with typical clinical signs and symptoms. Urine URINE / Unknown Urine Collect / Unknown 07/22/2022 11:19 EST 07/22/2022 11:24 EST us Devan Maldonado MD URINALYSIS ORDERABLES Final R esult Performing Organization Address [facility] Co de Phone Number [facility] [address] [place] [address] documented in this encounter Visit Diagnoses Diagnosis [...] 07/22/2022 documented in this encounter Care Teams Laundry Attendant Relationship Specialty Start Date End Date Janay Duran, PRODUCTION CELL LEADER 111 [facility] 2 [place] [address] PCP - General Family Medicine - Primary Care 07/22/22 02/12/24 Pam Germain MD 111 [facility] 2 [place] [address] Medical Oncology 03/22/22 documented as of this encounter
--- OUTSIDE RECORDS SUMMARY | 2024-05-04 01:25 | XMS_ITS | Encounter Summary ---
Author Organization [facility] Address [address] [place] [address] Care Team Providers Care Landscape Foreman Name Role Phone Pam Germain MD Unavailable [phone] Janay Duran APRN Primary Care Provider [phone] Encounter Details Date Type Department Care Team [...] Description 02/28/2025 13:00 EDT Office Visit [facility] Surgical Oncology - [address] [phone] Maeve Morales DO [address] [address] documented as of this encounter Visit Diagnoses Not on filedocumented in this encounter Care Teams Landscape Foreman Relationship Specialty Start Date End Date Janay Duran APRN [address] [place] [phone] PCP - General Family Medicine - Primary Care 07/22/22 02/12/24 Pam Germain MD 111 [facility], [address] [place] [address] Medical Oncology 03/22/22 documented as of this encounter
--- OUTSIDE RECORDS SUMMARY | 2024-05-04 01:25 | XMS_ITS | Encounter Summary ---
Author Organization [facility] Address [address] [place] [address] Care Team Providers Care Rehab Nursing Tech Name Role Phone Pam Germain MD Unavailable [phone] Janay Duran APRN Primary Care Provider Reason for Visit * Reason Comments Follow-up 6 anjum henao Encounter Details Date Type Department Care Team (Late st Contact Info) Description 12/03/2022 15:40 EDT Office Visit [facility] Surgical Oncology - [address] [phone] Maeve Morales, DO 111 [facility], Level 2 [place] [address] Malignant neoplasm of upper-inner quadrant [...] this encounter Progress Notes * Maeve Morales, - 12/03/2022 1540 EDT Subjective: Patient ID: [place] Squires is an 47 y.o. female. No chief complaint on file. ANAMARIA Avila is seen in 6-month follow-up for her left breast cancer. ??As you recall this is a patient that had a physical examination finding at her WEB ENGINEER visit and was sent in for diagnostic [...] ??This was done with an immediate tissue contract officer reconstruction. ??Unfortunately her pathology did not show a significant response to the chemotherapy with her final tumor size measuring 2.5 cm with 0 of 2 lymph nodes positive. ??Because of the less than optimal response she was placed on 6 months of capecitabine. ?Unfortunately in May of 2021 her right tissue contract officer unexpectedly ruptured and she had to go [...] Visit [facility] Surgical Oncology - [address] [phone] Maeve Morales DO [address] [place] [address], [facility], Level 2 [place] [phone] documented as of this encounter Procedures Procedure Name Priority Date/Time Associated Diagnosis Comments ORDERS - SCANNED 12/09/2022 17:54 EDT documented in this encounter Results * ORDERS - SCANNED (12/09/2022 17:54 EDT) 12/09/2022 17:5 4 EDT us Scan 2 Sand Analyst ADMISSION ORDERABLES Final Result documented in this [...] may reflect changes made after this encounter. meloxicam (MOBIC) 15 mg tablet Take 1 Tablet by mouth daily. 10/28/2022 traZODone (DESYREL) 100 mg tablet as needed. 10/26/2022 escitalopram oxalate (LEXAPRO) 20 mg tablet TAKE 1 & 1/2 TABLET BY MOUTH EVERY DAY FOR 90 DAYS 10/25/2022 added in this encounter Care Teams Rehab Nursing Tech Relationship Specialty Start Date End Date Janay Duran APRN [address] [phone] PCP - General Family Medicine - Primary Care 07/22/22 02/12/24 Pam Germain MD [address] [phone] Medical Oncology 03/22/22 documented as of this encounter
--- OUTSIDE RECORDS SUMMARY | 2024-05-04 01:25 | XMS_ITS | Encounter Summary ---
Author Organization [facility] Address [address] [place] [address] Care Team Providers Care Grapple Skidder Operator Name Role Phone Pam Germain MD Unavailable [phone] Janay Duran APRN Primary Care Provider [phone] Reason for Visit * Reason Comments Post-OP Follow Up Nipple Recon Encounter Details Date Type Department Care Team (Latest Contact Info) Description 08/09/2022 13:00 EDT Post-op Visit [facility] Plastic, Reconstructive & Cosmetic Surgery - [address], [address] [place] [address] Anali Navas PA-C [address] [place] [phone] Surgery follow-up (Primary Dx) Social History [...] off on bra. Will discuss with and akutan back to [place]. FOLLOW UP: 6 weeks post op F/U sooner for any concerns. Pt encouraged to call with any questions or concerns, informed that there is always someone operations consultant. Acute changes are asked to be reported. documented in this encounter Plan of Treatment Upcoming Encounters Date Type Department Care Team (Late st Contact Info) Description 02/28/2025 13:00 EDT Office Visit [facility] Surgical Oncology - [address] [phone] Maeve Morales DO [address] [address] documented as of this encounter Visit Diagnoses Diagnosis Surgery follow-up- Primary Follow-up examination, following unspecified surgery documented in this encounter Care Teams Grapple Skidder Operator Relationship Specialty Start Date End Date Janay Duran, SERVER ASSISTANT [address] [place] [phone] PCP - General Family Medicine - Primary Care 07/22/22 02/12/24 Pam Germain MD [address] [place] [phone] Medical Oncology 03/22/22 documented as of this encounter
--- OUTSIDE RECORDS SUMMARY | 2024-05-04 01:25 | XMS_ITS | Encounter Summary ---
Author Organization [facility] Address [address] [place] [address] Care Team Providers Care Service Learning Coordinator Name Role Phone Batsheva Lira JOHN Primary Care Provider [phone] Pam Germain MD Unavailable [phone] Encounter Details Date Type Department Care Team (Late st Contact Info) Description 06/03/2022 9:30 EST Ancillary Procedure [facility] Surgical Oncology - Main [place] [address] [place], [place] [phone] Social History Tobacco Use Types Packs/Day Years [...] Info) Description 02/28/2025 13:00 EDT Office Visit [facility] [place] [address] Maeve Morales DO [address] [place] [address], [address] [place] [address] documented as of this encounter Procedures Procedure Name Priority Date/Time Associated Diagnosis Comments [facility] BREAST BREAST CARE CENTER ONLY Routine 06/03/2022 16:23 EST documented in this encounter Results * [facility] BREAST BREAST [facility] ONLY (06/03/2022 16:23 EST) Narrative [facility] POINT OF CARE - 06/03/2022 16:23 EST This is a non-reportable exam. Maeve Morales DO [facility] POC ORDERABLES Final Result [facility] POINT OF CARE documented in this encounter Visit Diagnoses Not on filedocumented in this encounter Care Teams Service Learning Coordinator Relationship Specialty Start Date End Date Batsheva Lira FNP [address] [address] PCP - General 02/19/20 07/21/22 Pam Germain MD 111 [facility] 2 [place] [phone] Medical Oncology 03/22/22 documented as of this encounter
--- OUTSIDE RECORDS SUMMARY | 2024-05-04 01:25 | XMS_ITS | Encounter Summary ---
Author Organization [facility] Address [address] [place] [address] Care Team Providers Care Optical Laboratory Technician Name Role Phone Batsheva Lira JOHN Primary Care Provider [phone] Pam Germain MD Unavailable [phone] Reason for Referral * Radiology Services (Routine/Next Available) - Authorization Not Required Specialty Diagnoses / Procedures Referred By Contac t Referred To Contact Diagnoses Radiculopathy, cervical region Procedures XR CERVICAL SPINE 2-3 VIEWS Daren Larios MD Phone: tel: fax: [facility] Referral ID Status Reason Start Date Expiration Date Visits Requested Visits Authorized [id number] Authorization Not Required 06/01/2022 1 1 Reason for Visit * Radiology Services (Routine/Next Available) - Authorization Not Required Specialty Diagnoses / Procedures Referred By Contac t Referred To Contact Diagnoses Radiculopathy, cervical region Procedures XR CERVICAL SPINE 2-3 VIEWS Daren Larios MD Phone: tel: fax: [facility] Referral ID Status Reason Start Date Expiration Date Visits Requested Visits Authorized [id number] Authorization Not Required 06/01/2022 1 1 Encounter Details Date Type Department Care Team (Latest Contact Info) Description 06/03/2022 10:10 EST - 06/03/2022 23:59 EST [facility] Center Radiology Xray Outpatient - [address] [address] Radiculopathy, cervical region Discharge Disposition: Home or [...] of Assessment Author No 12/24/2020 17:15 Amarilys iMchaud RN * Do you have serious difficulty [...] 02/28/2025 13:00 EDT Office Visit [facility] Surgical Oncology - [address] [phone] Maeve Morales, 111 [facility], Level [address] [place] [phone] documented as of this encounter Procedures Procedure [...] REGARDING THIS REPORT PLEASE CALL [facility] AT [phone] Narrative 06/03/2022 14:45 EST PROCEDURE INFORMATION: Exam: [...] CONCERNS REGARDING THIS REPORT PLEASE CALL [facility] [phone] Daren Larios MD IMG DIAGNOSTIC IMAGING OR DERABLES Final Result documented in this encounter Visit Diagnoses Diagnosis Radiculopathy, cervical region Brachial neuritis or radiculitis nos documented in this encounter Care Teams Optical Laboratory Technician Relationship Specialty Start Date End Date Batsheva Lira FNP [address] [phone] PCP - General 02/19/20 07/21/22 Pam Germain MD [address] [place] [address] 2 [place] [address] Medical Oncology 03/22/22 documented as of this encounter
--- OUTSIDE RECORDS SUMMARY | 2024-05-04 01:25 | XMS_ITS | Encounter Summary ---
Author Organization [facility] Address [address] [place] [address] Care Team Providers Care Pasteurizing Supervisor Name Role Phone Pam Germain MD Unavailable [phone] Janay Duran APRN Primary Care Provider Encounter Details Date Type Department Care Team (Late st Contact Info) Description 10/12/2022 Orders Only [facility] Hematology & Oncology - Main [place] [address] [place] [address] Delmi Egan, RN [address] [place] [address] Malignant neoplasm of upper-inner quadrant of left [...] documented in this encounter Progress Notes * Delmi Egan RN - 10/12/2022 1156 EDT Lab orders placed for visit on 10/14 documented in this encounter Plan of Treatment Upcoming Encounters Date Type Department Care Team (Late st Contact Info) Description 02/28/2025 13:00 EDT Office Visit [facility] Surgical Oncology - [address] [phone] Maeve Morales, DO [address] [place] [address], Level [address] [place] [phone] documented as of this encounter Visit Diagnoses Diagnosis Malignant 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, estrogen receptor negative (HCC-CMS)- Primary documented in this encounter Care Teams Pasteurizing Supervisor Relationship Specialty Start Date End Date Janay Duran APRN [address] [place] [address] 2 [place] [address] PCP - General Family Medicine - Primary Care 07/22/22 02/12/24 Pam Germain MD [address] [place] [phone] Medical Oncology 03/22/22 documented as of this encounter
--- OUTSIDE RECORDS SUMMARY | 2024-05-04 01:25 | XMS_ITS | Encounter Summary ---
Author Organization [facility] Address [address] [place] [address] Care Team Providers Care Machine Setter Supervisor Name Role Phone Pam Germain MD Unavailable [phone] Janay Duran APRN Primary Care Provider Reason for Visit * Reason Comments Post-OP Follow Up Encounter Details Date Type Department Care Team (Late st Contact Info) Description 07/28/2022 10:00 EDT Office Visit [facility] Plastic, Reconstructive & Cosmetic Surgery - [address], [address] [place] [address] Juanito Carcamo MD [address] [phone] Surgery follow-up (Primary Dx) Social [...] Info) Description 02/28/2025 13:00 EDT Office Visit [facility] Surgical Oncology - [address] [phone] Maeve Morales DO [address] [phone] documented as of this encounter Visit Diagnoses Diagnosis Surgery follow-up- Primary Follow-up examination, following unspecified surgery documented in this encounter Care Teams Machine Setter Supervisor Relationship Specialty Start Date End Date Janay Duran APRN [address] [place] [phone] PCP - General Family Medicine - Primary Care 07/22/22 02/12/24 Pam Germain MD [address] [place] [phone] Medical Oncology 03/22/22 documented as of this encounter
--- OUTSIDE RECORDS SUMMARY | 2024-05-04 01:25 | XMS_ITS | Encounter Summary ---
Author Organization [facility] Address [address] [place] [address] Care Team Providers Care Occup Therapist Name Role Phone Batsheva Lira JOHN Primary Care Provider [phone] Pam Germain MD Unavailable [phone] Reason for Visit * Reason Onset Date Comments Follow-up 07/02/2022 Encounter Details Date Type Department Care Team (Late st Contact Info) Description 07/02/2022 Telephone [facility] General Surgery - [facility] [address] [place], [place] [phone] Juanito Carcamo MD [address] [place] [phone] Follow-up Social History Tobacco Use Types [...] Info) Description 02/28/2025 13:00 EDT Office Visit [facility] Surgical Oncology - [address] [address] Maeve Morales, DO 111 [facility], Level 2 [place] [phone] documented as of this encounter Visit Diagnoses Not on filedocumented in this encounter Care Teams Occup Therapist Relationship Specialty Start Date End Date Batsheva Lira FNP [address] [address] PCP - General 02/19/20 07/21/22 Pam Germain MD [address] [place] [address] [address] [place] [phone] Medical Oncology 03/22/22 documented as of this encounter
--- OUTSIDE RECORDS SUMMARY | 2024-05-04 01:25 | XMS_ITS | Encounter Summary ---
Author Organization [facility] Address [address] [place] [address] Care Team Providers Care Toxics Program Officer Name Role Phone Pam Germain MD Unavailable [phone] Janay Duran APRN Primary Care Provider [phone] Reason for Referral * Radiology Services (Routine/Next Available) - Authorization Not Required Specialty Diagnoses / Procedures Referred By Contac t Referred To Contact Nuclear Medicine Diagnoses Malignant 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, estrogen receptor negative (HCC-CMS) Pain of right hip Procedures NM BONE WHOLE BODY Liat Honeycutt PA-C Phone: tel: fax: [facility] Referral ID Status Reason Start Date Expiration Date Visits Requested Visits Authorized [id number] Authorization Not Required 10/17/2022 1 1 Reason for Visit * Radiology Services (Routine/Next Available) - Authorization Not Required Specialty Diagnoses / Procedures Referred By Contac t Referred To Contact Nuclear Medicine Diagnoses Malignant 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, estrogen receptor negative (HCC-CMS) Pain of right hip Procedures NM BONE WHOLE BODY Liat Honeycutt PA-C Phone: tel: fax: [facility] Referral ID Status Reason Start Date Expiration Date Visits Requested Visits Authorized [id number] Authorization Not Required 10/17/2022 1 1 Encounter Details Date Type Department Care Team (Latest Contact Info) Description 11/11/2022 8:45 EDT Hospital Encounter [facility] Radiology Nuclear Medicine and PET - [address] [address] Malignant neoplasm of upper-inner quadrant of left [...] 02/28/2025 13:00 EDT Office Visit [facility] Surgical Oncology - [address] [id number] Maeve Morales, [address] [place] [address], [facility] 2 [place] [phone] documented as of this encounter Procedures Procedure [...] sequela of sinus mucosal disease, correlate accordingly. [id number] Narrative 11/11/2022 12:40 EDT NM BONE WHOLE [...] likelysequela of sinus mucosal disease, correlate accordingly. [id number] Liat WEBB NM ORDERABLES Final R esult documented in [...] 11/11/2022 documented in this encounter Care Teams Toxics Program Officer Relationship Specialty Start Date End Date Janay Duran APRN 111 [facility] 2 [place] [phone] PCP - General Family Medicine - Primary Care 07/22/22 02/12/24 Pam Germain MD [address] [place] [address] 2 [place] [phone] Medical Oncology 03/22/22 documented as of this encounter
--- OUTSIDE RECORDS SUMMARY | 2024-05-04 01:25 | XMS_ITS | Encounter Summary ---
Author Organization [facility] Address [address] [place] [address] Care Team Providers Care Vice President Risk Management Name Role Phone Pam Germain MD Unavailable [phone] Janay Duran APRN Primary Care Provider [phone] Reason for Visit * Reason Comments New Patient Visit Cervical radiculopat hy * Consult (Routine) - Receiving Office to Obtain Authorization Specialty Diagnoses / Procedures Referred By [facility] t Referred To Contact Diagnoses Radiculopathy, cervical region Daren Larios MD Phone: tel: fax: Miki Miguel MD Phone: tel: fax: Referral ID Status Reason Start Date Expiration Date Visits Requested Visits Authorized [id number] Receiving Office to Obtain Authorization 1 1 Encounter Details Date Type Department Care Team (Late st Contact Info) Description 08/06/2022 14:00 EDT Office Visit [facility] Neurosurgery - [facility] [address] [place] [address] Briseyda Gilliam NP 111 [facility], Level 5 [place] [phone] Cervical radiculopathy at C6 (Primary Dx) Social [...] Answer Entry Date Author No 12/24/2020 17:15 EDAmarilys Puente RN documented in this encounter Progress Notes * Briseyda Gilliam NP - 08/06/2022 1400 EDT Images from the original note were not included. Chief Complaint Patient presents with ??? New Patient Visit Cervical radiculopathy HPI: [place] Squires is a 46 y.o. female who presents today for neurosurgical consultation at the requestof Dr. Daren Larios for cervical radiculopathy. [place] reports that she developed neck pain last fall. She sought healthcare business analyst in [facility] but did not find relief from [...] disc disease ??? Bladder incontinence ??? Cancer ([facility]) ([facility]) Noted 07/19/2022: breast ??? Diabetes mellitus, type 2 ([facility]) Noted 07/19/2022: not currently on meds, [...] (C5, 6) 5/5 Tricep (C6, 7) 5/5 Rubber Washer (C8) 5/5 UE Strength - RIGHT Deltoid (C5) 5/5 Bicep (C5, 6) 5/5 Tricep (C6, 7) 5/5 Rubber Washer (C8) 5/5 No pronator drift Sensation intact [...] her symptoms have largely improved with ongoing healthcare business analyst. We discussed that with improving symptoms I would not recommend surgical intervention at this time. We discussed the possibility of a cervical CAROLYN but without radicular pain and with improving symptoms she does not feel this is necessary. We discussed continuing with healthcare business analyst as long as she continues to see [...] Info) Description 02/28/2025 13:00 EDT Office Visit [facility] Surgical Oncology - [address] [phone] Maeve Morales DO [address] [phone] documented as of this encounter Visit Diagnoses Diagnosis Cervical radiculopathy at C6- Primary Brachial neuritis or radiculitis nos documented in this encounter Care Teams Vice President Risk Management Relationship Specialty Start Date End Date Janay Duran APRN [address] [place] [phone] PCP - General Family Medicine - Primary Care 07/22/22 02/12/24 Pam Germain MD [address] [place] [phone] Medical Oncology 03/22/22 documented as of this encounter
--- OUTSIDE RECORDS SUMMARY | 2024-05-04 01:26 | XMS_ITS | Encounter Summary ---
Author Organization [facility] Address [address] [place] [address] Care Team Providers Care Manager Channel Name Role Phone Batsheva Lira JOHN Primary Care Provider [phone] Reason for Visit * Reason Onset Date Comments Medications Refill 02/23/2022 Encounter Details Date Type Department Care Team (Late st Contact Info) Description 02/23/2022 Telephone [facility] Pelvic Medicine and Reconstructive Surgery - Medical Office [facility] [address] [place] [phone] Whit Patrick RN [address] [place] [address] Medications Refill Social History Tobacco Use Types [...] automated fax to refill Oxybutynin. Call to charles and [place] states she is not taking this. Refill denied. Faxed to [phone] [facility]. No further questions or concerns documented in this encounter Plan of Treatment Upcoming Encounters Date Type Department Care Team (Late st Contact Info) Description 02/28/2025 13:00 EDT Office Visit [facility] Surgical Oncology - [address] [address] Maeve Morales, DO 111 [facility], Level 2 [place] [phone] documented as of this encounter Visit Diagnoses Not on filedocumented in this encounter Care Teams Manager Channel Relationship Specialty Start Date End Date Batsheva Lira FNP [address] [phone] PCP - General 02/19/20 07/21/22 documented as of this encounter
--- OUTSIDE RECORDS SUMMARY | 2024-05-04 01:26 | XMS_ITS | Encounter Summary ---
Author Organization [facility] Address [address] [place] [address] Care Team Providers Care Price Analyst Name Role Phone Batsheva Lira JOHN Primary Care Provider [phone] Reason for Visit * Reason Onset Date Comments Appointment Related 02/16/2022 Encounter Details Date Type Department Care Team (Late st Contact Info) Description 02/16/2022 Telephone [facility] - [address] [phone] Maeve Morales, DO 111 [facility], Level 2 [place] [address] Appointment Related Social History Tobacco [...] Info) Description 02/28/2025 13:00 EDT Office Visit [facility] Surgical Oncology - [address] [phone] Maeve Morales, DO 111 [facility], [facility], Level 2 [place] [phone] documented as of this encounter Visit Diagnoses Not on filedocumented in this encounter Care Teams Price Analyst Relationship Specialty Start Date End Date Batsheva Lira FNP [address] [phone] PCP - General 02/19/20 07/21/22 documented as of this encounter
--- OUTSIDE RECORDS SUMMARY | 2024-05-04 01:26 | XMS_ITS | Encounter Summary ---
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, estrogen receptor negative, unspecified laterality ([facility]) Procedures KS REPLACEMENT TISSUE AUTOMATION CONTROLS SPECIALIST W/PERMANENT IMPLANT KS REVISION OF RECONSTRUCTED BREAST KS GRAFTING OF AUTOLOGOUS FAT BY LIPO 50 CC OR LESS Juanito Carcamo MD [address] [address] Phone: tel: fax: Referral ID Status Reason Start Date Expiration Date Visits Re quested Visits Authorized [id number] 08/22/2021 1 1 Encounter Details Date Type Department Care Team (Late st Contact Info) Description 01/11/2022 7:33 EDT Anesthesia Event [facility] [place] [address] [place] [address] Ric Allen MD PhD 111 [facility] 2 [place] [phone] Anesthesia Record Procedure Summary Procedure Name Responsible [...] IPA, 70% IPA; Power Inject; Right Atrium; [id number]; [id number] 08/08/20 1002 by Estrella Westbrook RN Wound 01/11/22; 1102; Inci vu; Right; Breast; s/p breast reconstruction, removal of tissue special education paraeducator with placement of silicone implant and fat grafting; horizontal incision with multiple puncture sites; N; Full thickness 01/11/22 1102 by Naz Gonzales RN Wound 01/11/22; 1103; Inci vu; Left; Breast; s/p breast reconstruction, removal of tissue special education paraeducator with placement of silicone implant and fat grafting; horizontal incision with multiple puncture sites; N; Full thickness 01/11/22 1103 by Naz Gonzales RN Wound 01/11/22; 1104; Inci vu; Abdomen; multiple puncture sites s/p fat graft harvest; N; Full thickness 01/11/22 1104 by Naz Gonzales RN Wound 06/18/21; 1451; Inci vu; Right; Breast; Exchange of right tissue special education paraeducator to new special education paraeducator; N; Full thickness; 01/11/22; 0845; Healed 06/18/21 [...] Amarilys Michaud RN documented in this encounter OR Notes * Anesthesia Postprocedure Evaluation - Fabiola Kilgore CRNA - 01/11/2022 1316 EDT Patient: [place] Squires [...] Staff Patient location during procedure: OR Performed: resident/JOINTER OPERATOR/AA Indications and Patient Condition Indications for airway [...] to wellness ??? Bladder incontinence ??? Cancer ([facility]) (HCC) ??? Diabetes mellitus, type 2 (HCC) ??? Exercise involving housework ??? 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 ??? Head trauma 06/19/20 fell [...] inthis note Discussed plan with appropriate DAGMAR/ Pay Station Department Manager when involved PAT Note Notes from 12/12/21 through 01/11/22 No notes of this type exist for this encounter. documented in this encounter Plan of Treatment Upcoming Encounters Date Type Department Care Team (Late st Contact Info) Description 02/28/2025 13:00 EDT Office Visit [facility] Surgical Oncology - [address] [phone] Maeve Morales, DO 111 [facility], Level 2 [place] [address] documented as of this encounter Procedures Procedure Name Priority Date/Time Associated Diagnosis Comments ANESTHESIA INTUBATION Routine 01/11/2022 7:46 EDT documented in this encounter Results * KS AN ELECTIVE ENDOTRACHEAL AIRWAY (01/11/2022 7:46 EDT) Narrative Fabiola Kilgore CRNA - 01/11/2022 7:46 EDT Fabiola Kilgore CRNA ? 01/11/2022 ??8:11 Airway Date/Time: 01/11/2022 7:46 Urgency: elective General Information and Staff Patient location during procedure: OR Performed: resident/JOINTER OPERATOR/AA Indications and Patient Condition Indications for airway [...] approaches attempted: 0 Ric Allen MD PhD ANESTHESIA ORDAshish BLANDON Final Result documented in this encounter Visit [...] mg documented in this encounter Care Teams Bed Setter Relationship Specialty Start Date End Date Batsheva Lira FNP [address] [phone] PCP - General 02/19/20 07/21/22 documented as of this encounter
--- OUTSIDE RECORDS SUMMARY | 2024-05-04 01:26 | XMS_ITS | Encounter Summary ---
Author Organization [facility] Address [address] [place] [address] Care Team Providers Care Bituminous Distributor Operator Name Role Phone Batsheva Lira JOHN Primary Care Provider Reason for Visit * Reason Comments Pre-op Exam Encounter Details Date Type Department Care Team (Latest Contact Info) Description 09/22/2021 14:00 EDT Office Visit [facility] Pelvic Medicine and Reconstructive Surgery - Medical Office [facility] [address] [place] [address] Mare Echeverria MD 2 [facility] Medical Office Building, [address] [address] Mixed incontinence (Primary Dx); Cystocele, [...] from the original note were not included. [facility] Patient Instructions Learning About Urinary Catheter Care [...] a list of the medicines you take. [facility] Medical group Removing an Indwelling Urinary Catheter [...] force it. Instead, call our office at [phone]. documented in this encounter Ordered Prescriptions Prescription Sig Dispense Quantity Refills Last Filled Start Date End Date HYDROmorphone (DILAUDID) 2 mg tablet Take 1 [...] cystocele. She is known to me through [place] [facility] and I have seen her in [...] be rebooked. Patient had undergone urodynamics through [place] [facility] which showed severe urinary stress incontinence. [...] 02/28/2025 13:00 EDT Office Visit [facility] Surgical Oncology - [address] [address] Maeve Morales, 111 [facility], Level 2 [place] [phone] documented as of this encounter Visit Diagnoses Diagnosis Mixed incontinence- Primary Mixed incontinence urge and stress (male)(female) Cystocele, midline documented in this encounter Care Teams Bituminous Distributor Operator Relationship Specialty Start Date End Date Batsheva Lira FNP [address] [address] PCP - General 02/19/20 07/21/22 documented as of this encounter
--- OUTSIDE RECORDS SUMMARY | 2024-05-04 01:26 | XMS_ITS | Encounter Summary ---
Author Organization [facility] Address [address] [place] [address] Care Team Providers Care Edge Stripper Name Role Phone Batsheva Lira JOHN Primary Care Provider [phone] Pam Germain MD Unavailable [phone] Encounter Details Date Type Department Care Team (Late st Contact Info) Description 04/23/2022 Orders Only [facility] Hematology & Oncology - [facility] [address] [place], [place] [phone] Pam Germain MD 111 [facility], Level 2 [place] [address] Injury of left thumb, sequela (Primary [...] Info) Description 02/28/2025 13:00 EDT Office Visit [facility] Surgical Oncology - [address] [address] Maeve Morales, 111 [facility], Level 2 [place] [address] documented as of this encounter Visit Diagnoses Diagnosis Injury of left thumb, sequela- Primary documented in this encounter Care Teams Edge Stripper Relationship Specialty Start Date End Date Batsheva Lira FNP [address] [address] PCP - General 02/19/20 07/21/22 Pam Germain MD 111 [facility] 2 [place] [address] Medical Oncology 03/22/22 documented as of this encounter
--- OUTSIDE RECORDS SUMMARY | 2024-05-04 01:26 | XMS_ITS | Encounter Summary ---
Author Organization [facility] Address [address] [place] [address] Care Team Providers Care Recreational Therapy Aide Name Role Phone Batsheva Lira JOHN Primary Care Provider [phone] Reason for Visit * Reason Comments Post-OP Follow Up 01/11/22 Encounter Details Date Type Department Care Team (Latest Contact Info) Description 01/19/2022 13:00 EDT Post-op Visit [facility] Plastic, Reconstructive & Cosmetic Surgery - [address], [address] [place] [address] Anali Navas PA-C [address] [place] [address] [place] [phone] Surgery follow-up (Primary Dx) Social History [...] estrogen receptor negative, unspecified laterality (HCC-CMS) (HCC) Final Diagnosis 01/11/2022 A. BREAST, RIGHT, [...] [facility] Surgical Oncology - [address] [address] Maeve Morales, DO 111 [facility], Level 2 [place] [phone] documented as of this encounter Visit Diagnoses Diagnosis Surgery follow-up- Primary Follow-up examination, following unspecified surgery documented in this encounter Discontinued Medications Medication Sig Discontinue Reason Start Date End Da te HYDROmorphone (DILAUDID) 2 mg tablet Take 1 Tablet by mouth every 4 hours as needed for Pain. Daily Max: 12 mg Therapy completed 01/11/2022 01/19/2022 documented as of this encounter Care Teams Recreational Therapy Aide Relationship Specialty Start Date End Date Batsheva Lira FNP [address] [phone] PCP - General 02/19/20 07/21/22 documented as of this encounter
--- OUTSIDE RECORDS SUMMARY | 2024-05-04 01:26 | XMS_ITS | Encounter Summary ---
Author Organization [facility] Address [address] [place] [address] Care Team Providers Care Fabric Worker Fitter Name Role Phone Batsheva Lira JOHN Primary Care Provider [phone] Pam Germain MD Unavailable [phone] Reason for Referral * Radiology Services (Routine/Next Available) - Authorization Not Required Specialty Diagnoses / Procedures Referred By Contac t Referred To Contact Diagnoses Thumb pain, left Procedures XR FINGER LEFT 2 OR MORE VIEWS Pam Germain MD Phone: tel: fax: [facility] Referral ID Status Reason Start Date Expiration Date Visits Requested Visits Authorized [id number] Authorization Not Required 04/23/2022 1 1 Reason for Visit * Radiology Services (Routine/Next Available) - Authorization Not Required Specialty Diagnoses / Procedures Referred By Contac t Referred To Contact Diagnoses Thumb pain, left Procedures XR FINGER LEFT 2 OR MORE VIEWS Pam Germain MD Phone: tel: fax: [facility] Referral ID Status Reason Start Date Expiration Date Visits Requested Visits Authorized [id number] Authorization Not Required 04/23/2022 1 1 Encounter Details Date Type Department Care Team (Latest Contact Info) Description 04/23/2022 10:16 EST - 04/23/2022 23:59 [facility] [place] [address] Thumb pain, left Discharge Disposition: Home or [...] Entry Date Author No 12/24/2020 17:15 Amarilys Michaud, RN documented in this encounter Medications at [...] 02/28/2025 13:00 EDT Office Visit [facility] Surgical Oncology - [address] [address] Maeve Morales, [address] [place] [address], Level 2 [place] [phone] documented as of this encounter Procedures Procedure [...] are mild degenerative jointchanges in the thumb. us Pam Germain MD IMG DIAGNOSTIC IMAGING ORDERABL ES Final Result documented in this encounter Visit Diagnoses Diagnosis Thumb pain, left documented in this encounter Care Teams Fabric Worker Fitter Relationship Specialty Start Date End Date Batsheva Lira FNP [address] [phone] PCP - General 02/19/20 07/21/22 Pam Germain MD [address] [place] [address] 2 [place] [phone] Medical Oncology 03/22/22 documented as of this encounter
--- OUTSIDE RECORDS SUMMARY | 2024-05-04 01:26 | XMS_ITS | Encounter Summary ---
Author Organization [facility] Address [address] [place] [address] Care Team Providers Care Radiator Mechanic Name Role Phone Batsheva Lira JOHN Primary Care Provider Pam Germain MD Unavailable [phone] Janay Duran APRN Primary Care Provider Inez Corado DO Primary Care Provid er Encounter Details Date Type Department Care Team (Latest Contact Info) Description 03/09/2022 Lab Requisition [facility] Pathology & Laboratory Medicine - [facility] [address] [place] [address] Janay Duran APRN [address] [place] [phone] Unspecified menopausal and perimenopausal disorder Social History [...] Info) Description 02/28/2025 13:00 EDT Office Visit [facility] Surgical Oncology - [address] [phone] Maeve Morales, DO [address] [place] [address], Level 2 [place] [address] documented as of this encounter Procedures Procedure Name Priority Date/Time Associated Diagnosis Comments FSH Routine 03/09/2022 11:11 EDT Unspecified menopausal and perimenopausal disorder documented in this encounter Results * FSH (03/09/2022 11:11 EDT) FSH 87.7 See Note mIU/mL 03/09/2022 21:41 EDT [facility] Blood VENOUS BLOOD / Unknown 03/09/2022 11:11 EDT 03/09/2022 19:17 EDT Narrative [facility] - 03/09/2022 21:41 EDT NOTE: [...] established. Janay Duran APRN CHEMISTRY & BLOOD GAS ORDERA BLES Final Result [facility] [address] [place] [address] documented in this encounter Visit Diagnoses Diagnosis Unspecified menopausal and perimenopausal disorder documented in this encounter Care Teams Radiator Mechanic Relationship Specialty Start Date End Date Batsheva Lira FNP [facility] [address] [phone] PCP - General 02/19/20 07/21/22 Janay Duran APRN 111 [facility] 2 [place] [phone] PCP - General Family Medicine - Primary Care 07/22/22 02/12/24 Inez Corado DO [address] [place] [phone] PCP - General Family Medicine - Primary Care 02/13/24 Pam Germain MD 111 [facility] 2 [place] [address] Medical Oncology 03/22/22 documented as of this encounter
--- OUTSIDE RECORDS SUMMARY | 2024-05-04 01:26 | XMS_ITS | Encounter Summary ---
Author Organization [facility] Address [address] [place] [address] Care Team Providers Care Manager Planning Name Role Phone Batsheva Lira JOHN Primary Care Provider [phone] Reason for Visit * Reason Onset Date Comments Appointment Related 03/02/2022 Encounter Details Date Type Department Care Team (Late st Contact Info) Description 03/02/2022 Telephone [facility] Surgical Oncology - [address] [phone] Maeve Morales, DO 111 [facility], Level 2 [place] [phone] Appointment Related Social History Tobacco Use Types [...] Info) Description 02/28/2025 13:00 EDT Office Visit [facility] Surgical Oncology - [address] [address] Maeve Morales, DO [address] [place] [address], Level [address] [place] [address] documented as of this encounter Visit Diagnoses Not on filedocumented in this encounter Care Teams Manager Planning Relationship Specialty Start Date End Date Batsheva Lira FNP [address] [address] PCP - General 02/19/20 07/21/22 documented as of this encounter
--- OUTSIDE RECORDS SUMMARY | 2024-05-04 01:26 | XMS_ITS | Encounter Summary ---
Author Organization [facility] Address [address] [place] [address] Care Team Providers Care Ciaio Lumite Injector Name Role Phone Batsheva Lira JOHN Primary Care Provider [phone] Reason for Visit * Reason Onset Date Comments Other 02/04/2022 CASE REQUEST Encounter Details Date Type Department Care Team (Late st Contact Info) Description 02/04/[address] [facility] Plastic, Reconstructive & Cosmetic Surgery - [address], [address] [place] [address] Juanito Carcamo MD [address] [place] [address] Malignant neoplasm of upper-inner quadrant [...] Description 02/28/2025 13:[address] 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
--- OUTSIDE RECORDS SUMMARY | 2024-05-04 01:26 | XMS_ITS | Encounter Summary ---
Author Organization [facility] Address [address] [place] [address] Care Team Providers Care Facilities Clerk Name Role Phone Batsheva Lira JOHN Primary Care Provider [phone] Reason for Visit * Reason Comments Post-OP Follow Up bilateral exchange w / fat grafting 829.22 Encounter Details Date Type Department Care Team (Latest Contact Info) Description 03/17/2022 10:00 EDT Post-op Visit [facility] Plastic, Reconstructive & Cosmetic Surgery - [address], [address] [place] [address] Juanito Carcamo MD [address] [address] Surgery follow-up (Primary Dx) Social [...] Info) Description 02/28/2025 13:00 EDT Office Visit [facility] Surgical Oncology - [address] [phone] Maeve Morales, DO 111 [facility], Level 2 [place] [phone] documented as of this encounter Visit Diagnoses Diagnosis Surgery follow-up- Primary Follow-up examination, following unspecified surgery documented in this encounter Care Teams Facilities Clerk Relationship Specialty Start Date End Date Batsheva Lira FNP [address] [place] [phone] PCP - General 02/19/20 07/21/22 documented as of this encounter
--- OUTSIDE RECORDS SUMMARY | 2024-05-04 01:26 | XMS_ITS | Encounter Summary ---
Author Organization [facility] Address [address] [place] [address] Care Team Providers Care Printing Supervisor Name Role Phone Batsheva Lira JOHN Primary Care Provider [phone] Reason for Visit * Reason Onset Date Comments Results 11/30/2021 Encounter Details Date Type Department Care Team (Late st Contact Info) Description 11/30/2021 Telephone [facility] Pel[facility] and Re[facility] - Medical Office [facility] [address] [place], [place] [id number] Marlin Brewer, RN [address] [place] [address] Results Social History Tobacco Use Types Packs/Day [...] Info) Description 02/28/2025 13:00 EDT Office Visit [facility] Surgical Oncology - [facility] [address] [place], [place] [address] Maeve Morales, [address], [address] 2 [place] [phone] documented as of this encounter Visit Diagnoses Not on filedocumented in this encounter Care Teams Printing Supervisor Relationship Specialty Start Date End Date Batsheva Lira FNP [address] [phone] PCP - General 02/19/20 07/21/22 documented as of this encounter
--- OUTSIDE RECORDS SUMMARY | 2024-05-04 01:26 | XMS_ITS | Encounter Summary ---
Author Organization [facility] Address [address] [place] [address] Care Team Providers Care Navigating Officer Name Role Phone Batsheva Lira JOHN Primary Care Provider [phone] Reason for Visit * Reason Comments Pre-op Exam bilateral TE to gel Encounter Details Date Type Department Care Team (Latest Contact Info) Description 12/30/2021 13:00 EDT Office Visit [facility] Plastic, Reconstructive & Cosmetic Surgery - [address], [address] [place] [address] Juanito Carcamo MD [address] [phone] S/P breast reconstruction (Primary Dx) [...] the significantly increased risk of complications in makeup instructor/implant reconstruction patient's who receive postoperative radiation or [...] Info) Description 02/28/2025 13:00 EDT Office Visit [facility] Surgical Oncology - [address] [address] Maeve Morales, [address] [facility], Level 2 [place] [phone] documented as of this encounter Visit Diagnoses Diagnosis S/P breast reconstruction- Primary Breast replaced by other means documented in this encounter Care Teams Navigating Officer Relationship Specialty Start Date End Date Batsheva Lira FNP [address] [phone] PCP - General 02/19/20 07/21/22 documented as of this encounter
--- OUTSIDE RECORDS SUMMARY | 2024-05-04 01:26 | XMS_ITS | Encounter Summary ---
Author Organization [facility] Address [address] [place] [address] Care Team Providers Care Catalytic Converter Operator Helper Name Role Phone Batsheva Lira JOHN Primary Care Provider [phone] Encounter Details Date Type Department Care Team (Late st Contact Info) Description 11/05/2021 13:00 EDT Phlebotomy Only [facility] 2 Phlebotomy [address] [place] [address] Nuclear Criticality Safety Engineer, Acc Phlebotomy Malignant neoplasm of right breast in female, estrogen receptor negative, unspecified site of breast (HCC-CMS) (HCC) ([facility]-CMS) Social History Tobacco Use Types Packs/Day [...] Info) Description 02/28/2025 13:00 EDT Office Visit [facility] Surgical Oncology - [address] [address] Maeve Morales, [address], [address] [place] [address] documented as of this encounter [...] 138 136 - 145 mmol/L 11/05/2021 13:28 [facility] Potassium 4.2 3.5 - 5.0 mmol/L 11/05/2021 13:28 [facility] Chloride 102 96 - 110 mmol/L 11/05/2021 13:28 [facility] CO2 Total 27 22 - 32 mmol/L 11/05/2021 13:28 [facility] Glucose 126(H) 70 - 100 mg/dL 11/05/2021 13:28 [facility] BUN 10 10 - 26 mg/dL 11/05/2021 13:28 [facility] Creatinine 0.61 0.52 - 1.04 mg/dL 11/05/2021 13:28 [facility] eGFR 112 >60 mL/min/1.7 3m2 11/05/2021 13:28 [facility] Total Protein 7.5 6.3 - 8.2 g/dL 11/05/2021 13:28 [facility] Albumin 4.7 3.4 - 4.9 g/dL 11/05/2021 13:28 [facility] Alkaline Phosphatase 117 38 - 126 U/L 11/05/2021 13:28 [facility] AST 44 15 - 46 U/L 11/05/2021 13:28 [facility] ALT 73(H) <35 U/L 11/05/2021 13:28 [facility] Bilirubin, Total <0.5 <1.4 mg/dL 11/06/19 13:28 [facility] Calcium 9.1 8.5 - 10.5 mg/dL 11/05/2021 13:28 [facility] Albumin/Globulin Ratio 1.7 1.0 - 2.5 11/05/2021 13:28 [facility] Anion Gap 9 5 - 14 11/05/2021 13:28 [facility] Blood VENOUS BLOOD / Unknown Venipuncture / Unknown 11/05/2021 13:03 EDT 11/05/2021 13:09 EDT us Queenie Conde MD CHEMISTRY & BLOOD GAS ORDERABLES Final Result [facility] [address] [place] [address] * (ABNORMAL) COMPLETE BLOOD COUNT AND DIFFERENTIAL (11/05/2021 13:03 EDT) WBC 6.70 4.00 - 12.40 K/cmm 11/05/2021 13:30 [facility] RBC 4.86 3.86 - 5.04 M/cmm 11/05/2021 13:30 [facility] Hemoglobin 15.3(H) 11.6 - 15.2 gm/dL 11/05/2021 13:30 [facility] HCT 45.6(H) 34.9 - 44.4 % 11/05/2021 13:30 [facility] MCV 94 81 - 98 fl 11/05/2021 13:30 [facility] MCH 31.5 26.7 - 33.3 pg 11/05/2021 13:30 [facility] MCHC 33.6 32.1 - 35.9 gm/dL 11/05/2021 13:30 [facility] RDW-CV 11.6 <14.7 % 11/05/2021 13:30 [facility] RDW-SD 40.0 <50.4 fl 11/05/2021 13:30 [facility] PLT 258 141 - 377 K/cmm 11/05/2021 13:30 [facility] MPV 9.6 9.5 - 12.7 fl 11/05/2021 13:30 [facility] % Neutrophils 69.3 % 11/05/2021 13:30 EDT [facility] % Lymphocytes 20.3 % 11/05/2021 13:30 EDT [facility] % Monocytes 8.4 % 11/05/2021 13:30 [facility] % Eosinophils 0.9 % 11/05/2021 13:30 [facility] % Basophils 0.7 % 11/05/2021 13:30 [facility] % Immature Grans 0.4 % 11/06/19 13:30 [facility] Absolute Neutrophils 4.64 2.20 - 8.85 K/cmm 11/05/2021 13:30 [facility] Absolute Lymphocytes 1.36 1.09 - 3.30 K/cmm 11/05/2021 13:30 [facility] Absolute Monocytes 0.56 0.10 - 0.80 K/cmm 11/05/2021 13:30 [facility] Absolute Eosinophils 0.06 0.03 - 0.61 K/cmm 11/05/2021 [facility] Basophils 0.05 0.01 - 0.11 K/cmm 11/05/2021 13:30 [facility] Absolute Immature Grans 0.03 0.00 - 0.06 K/cmm 11/05/2021 13:30 [facility] Type of Differential: Auto 11/05/2021 13:30 [facility] Blood VENOUS BLOOD / Unknown Venipuncture / Unknown 11/05/2021 13:03 EDT 11/05/2021 13:09 EDT us Queenie Conde MD PACKAGES & DNA PROBE ORDERABLES Final Result [facility] [address] [place] [address] documented in this encounter Visit Diagnoses Diagnosis Malignant neoplasm of right breast in female, estrogen receptor negative, unspecified site of breast (HCC-CMS) documented in this encounter Care Teams Catalytic Converter Operator Helper Relationship Specialty Start Date End Date Batsheva Lira FNP [address] [place] [phone] PCP - General 02/19/20 07/21/22 documented as of this encounter
--- OUTSIDE RECORDS SUMMARY | 2024-05-04 01:26 | XMS_ITS | Encounter Summary ---
Author Organization [facility] Address [address] [place] [address] Care Team Providers Care Waitstaff Captain Name Role Phone Batsheva Lira JOHN Primary Care Provider [phone] Reason for Referral * Specialty Diagnoses / Procedures Referred By Contac t Referred To Contact Anali Navas PA-C Phone: tel: fax: Referral ID Status Reason [...] t Referred To Contact Anali Navas PA-C Phone: tel: fax: Referral ID Status Reason [...] gonzáles Referred To Contact Anali Navas PA-C Phone: tel: fax: Referral ID Status Reason Start Date Expiration Date Visits Re quested Visits Authorized Comments Please see Dr. Carcamo in 7-10 days or as scheduled. Call [phone] for questions or concerns. 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, estrogen receptor negative, unspecified laterality (HCC-CMS) Procedures IL REPLACEMENT TISSUE PROFESSIONAL BUILDER W/PERMANENT IMPLANT IL REVISION OF RECONSTRUCTED BREAST IL GRAFTING OF AUTOLOGOUS FAT BY LIPO 50 CC OR LESS Juanito Carcamo MD FACS [address] [place] [address] [place] [address] Phone: tel: fax: Referral ID Status Reason Start Date Expiration Date Visits Re quested Visits Authorized [id number] 08/22/2021 1 1 Encounter Details Date Type Department Care Team (Latest Contact Info) Description 01/11/2022 5:48 EDT - 01/11/2022 15:02 EDT Hospital Encounter [facility] Main [place] [address] [place] [address] Juanito Carcamo MD FACS [address] [facility] [address] [place] [phone] Discharge Disposition: Home or Self Care [...] No 12/24/2020 17:15 Amarilys Michaud, RADHA * Are you blind or do you [...] 12/24/2020 17:15 EDT Valentin, Aver y, RN * Because of a physical, mental, [...] daily for 5 days. 20 capsule 01/11/2022 HYDROmorphone (DILAUDID) 2 mg tablet Take 1 Tablet by mouth every 4 hours as needed for Pain. Daily Max: 12 mg 20 Tablet 01/11/2022 2 documented in this encounter Discharge Disposition Disposition Code Departure Means Destination Home or Self [place] documented in this encounter H&P Notes * [...] documented below Colleen Marin MD 01/11/2022 6:17 Cosigned by Juanito Carcamo MD FACS at 01/12/2022 10:20 EDT Source Note - PARK ACTIVITIES COORDINATOR, SCAN 2 - 12/31/2021 9:13 EDT documented [...] 1502 EDT Operative Note Date: 01/11/2022 Location: [facility] OR Name: Austin Squires, : 1975, PREOPERATIVE DIAGNOSIS: 1. S/P bilateral tissue nick setter breast reconstruction with allograft. POSTOPERATIVE DIAGNOSIS: 1. S/P bilateral tissue nick setter breast reconstruction with allograft. PROCEDURE : 1. Exchange of Bilateral Tissue Expanders to Silicone Implants. 2. Fat grafting from abdomen to bilateral breasts. Surgeons: * Juanito Carcamo MD FACS - Primary * Anali Navas PA-C - Assisting * Colleen Marin MD - Resident - Assisting Physician Digital Operations Analyst Attestation: Ms. Paniaguaa necessary and integral participant [...] y.o. female who has undergone bilateral tissue nick setter breast reconstruction with allograft. She is here [...] fat and donor site deformity. Signed informed [employer] [employer] and signed informed [...] placed. 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, estrogen receptor negative, unspecified laterality (HCC-CMS) (HCC) (HCC-CMS) Special Needs Waiting for implant orders POCT GLUCOSE, INTERFACED Routine 01/11/2022 7:06 EDT TEST, URINE STAT 01/11/2022 6:24 EDT documented in this encounter Results * IMPLANT RECORD - SCANNED (01/13/2022 14:52 EDT) 01/13/2022 14:5 2 EDT us Scan 2 Mutuel Clerk PROCEDURE/MINOR SURGICAL OR DERABLES Final Result * IMPLANT RECORD - SCANNED (01/12/2022 13:50 EDT) 01/12/2022 13:5 0 EDT us Scan 2 Mutuel Clerk PROCEDURE/MINOR SURGICAL OR DERABLES Final Result * (ABNORMAL) POCT GLUCOSE, INTERFACED (01/11/2022 13:24 EDT) Glucose, POC 149(H) 70 - 100 mg/dL 01/11/2022 13:25 EDT [facility] HN LAB POC COMMENT (GLUCOSE) Test Performed by Nursing Services 01/11/2022 13:25 EDT [facility] Blood CAPILLARY BLOOD / Unknown 01/11/2022 13:24 EDT 01/11/2022 13:25 EDT us Ric Allen MD PhD POINT OF CARE T EST ORDERABLES Final Result [facility] [address] [place] [address] * SURGICAL PATHOLOGY (01/11/2022 8:29 EDT) Note to Patient The following pathology results have been interpreted by your pathologist and may be available to you before your health provider has had the opportunity to review them. Please allow time for your provider to receive these results and explore management options, if applicable. 01/13/2022 14:56 EDT [facility] Final Diagnosis A. BREAST, RIGHT, [...] changes. - Negative for malignancy. 01/13/2022 14:56 T [facility] Attestation There was significant resident/fellow involvement in the diagnostic evaluation of this case. By the signature below, the attending physician certifies that they have personally conducted a gross and/or microscopic examination of the described specimens and rendered or confirmed the above diagnosis. 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 Received [...] tissue, 3.5 x 0.5 x 0.4 cm. Sales Data Analyst sections are submitted in A1. B. Received in normal saline labelled with proper patient identification (initials H, R) and left mastectomy scar is an elongated centrally scarred elliptical skin, 13.2 by 0.5 cm which is excised to a depth of 0.4 cm. Areas of mild slight firmness are present. Sales Data Analyst sections are submitted in B1. C. Received in normal saline labelled with proper patient identification (initials H, R) and ? left breast tissue are irregular and elliptical portions of skin and fibroadipose tissue aggregating 20 g. The skin surfaces are without gross lesions. The fibroadipose tissues are without areas of induration. Sales Data Analyst sections are submitted in C1. D. Received in normal saline labelled with proper patient identification (initials H, R) and right breast tissue are irregular and elliptical portions of skin and fibroadipose tissue aggregating 15 g. The skin surfaces range from smooth rivera-brown to sosa and wrinkled. The fibroadipose tissues are without areas of induration. Sales Data Analyst sections are submitted in D1. [facility] L[facility]SON([facility]) 01/12/2022 10:24 01/13/2022 14:56 EDT [facility] Resident/Chris w: Mikey Self MD 01/13/2022 14:56 EDT [facility] Performing Lab [facility] 01/13/2022 14:56 EDT [facility] Scanned Images 01/13/2022 14:56 EDT [facility] Tissue TISSUE SPECIMEN FROM SKIN / Unknown 01/11/2022 8:29 EDT 01/11/2022 13:11 EDT Tissue specimen (specimen) SPECIMEN FROM SKIN / Unknown 01/11/2022 8:29 EDT 01/11/2022 13:11 EDT Tissue specimen (specimen) SPECIMEN FROM SKIN / Unknown 01/11/2022 9:59 EDT 01/11/2022 13:11 EDT Tissue specimen (specimen) SPECIMEN FROM SKIN / Unknown 01/11/2022 10:21 EDT 01/11/2022 13:11 EDT us Juanito Carcamo MD FACS PATHOLOGY ORDERABLES Final Result [facility] [address] [place] [address] * (ABNORMAL) POCT GLUCOSE, INTERFACED (01/11/2022 7:06 EDT) Glucose, POC 134(H) 70 - 100 mg/dL 01/11/2022 7:13 EDT [facility] HN LAB POC COMMENT (GLUCOSE) Test Performed by Nursing Services 01/11/2022 7:13 EDT [facility] Blood CAPILLARY BLOOD / Unknown 01/11/2022 7:06 EDT 01/11/2022 7:13 EDT us Juanito Carcamo MD, FACS POINT OF CARE TEST O RDERABLES Final Result Performing Organization Address [facility] Co de Phone Number [facility] [address] [place] [address] * TEST, URINE (01/11/2022 6:24 EDT) Test, Urine Negative Negative 01/11/2022 6:38 EDT [facility] Comment:False negative resul ts may occur in women who are beyond 5-8 weeks gestation. Diagnosis of should be based on a correlation of test results with typical clinical signs and symptoms. Urine URINE / Unknown Urine Collect / Unknown 01/11/2022 6:24 EDT 01/11/2022 6:29 EDT us Juanito Carcamo MD FACS URINALYSIS ORDERABLE S Final Result Performing Organization Address [facility] Co de Phone Number [facility] [address] [place], [place] [address] documented in this encounter Visit Diagnoses Not [...] 12/15 documented in this encounter Care Teams Waitstaff Captain Relationship Specialty Start Date End Date Batsheva Lira FNP [address] [phone] PCP - General 02/19/20 07/21/22 documented as of this encounter
--- OUTSIDE RECORDS SUMMARY | 2024-05-04 01:26 | XMS_ITS | Encounter Summary ---
Author Organization [facility] Address [address] [place] [address] Care Team Providers Care Ict Business Analyst Name Role Phone Batsheva Lira JOHN Primary Care Provider [phone] Reason for Visit * Reason Onset Date Comments Follow-up 11/03/2021 Encounter Details Date Type Department Care Team (Late st Contact Info) Description 11/03/2021 Telephone [facility] Hematology & Oncology - [address] [address] Edinson Lorenzana, ASSISTANT COUNSEL Follow-up Social History Tobacco Use Types Packs/Day [...] JUDIT VICK Note: Reason for Call: [facility] sent me the following response. This was [...] 02/28/2025 13:00 EDT Office Visit [facility] Surgical Oncology - [facility] [address] [place] [address] Maeve Morales, DO 111 [facility], Level 2 [place] [phone] documented as of this encounter Visit Diagnoses Not on filedocumented in this encounter Care Teams Ict Business Analyst Relationship Specialty Start Date End Date Batsheva Lira FNP [address] [phone] PCP - General 02/19/20 07/21/22 documented as of this encounter
--- OUTSIDE RECORDS SUMMARY | 2024-05-04 01:26 | XMS_ITS | Encounter Summary ---
Author Organization [facility] Address [address] [place] [address] Care Team Providers Care Chief Librarian Circulation Department Name Role Phone Batsheva Lira JOHN Primary Care Provider [phone] Reason for Visit * Reason Comments Post-OP Follow Up TE fill-sx-/ Encounter Details Date Type Department Care Team (Latest Contact Info) Description 09/22/2021 8:30 EDT Post-op Visit [facility] Plastic, Reconstructive & Cosmetic Surgery - [address], [address] [place] [address] Oksana Wilkins PA-C [address] [facility] [address] [place] [phone] Surgery follow-up (Primary Dx) Social History [...] 02/28/2025 13:00 EDT Office Visit [facility] Surgical Oncology - [address] [address] Maeve Morales DO 111 [facility], [address] [place] [phone] documented as of this encounter Visit Diagnoses Diagnosis Surgery follow-up- Primary Follow-up examination, following unspecified surgery documented in this encounter Care Teams Chief Librarian Circulation Department Relationship Specialty Start Date End Date Batsheva Lira FNP [address] [phone] PCP - General 02/19/20 07/21/22 documented as of this encounter
--- OUTSIDE RECORDS SUMMARY | 2024-05-04 01:26 | XMS_ITS | Encounter Summary ---
Author Organization [facility] Address [address] [place] [address] Care Team Providers Care Road Marker Name Role Phone Batsheva Lira JOHN Primary Care Provider Reason for Visit * Reason Onset Date Comments Follow-up 10/29/2021 Encounter Details Date Type Department Care Team (Late st Contact Info) Description 10/29/2021 Telephone [facility] Hematology & Oncology - [address] [address] Edinson Lorenzana, [employer]SM[employer] Follow-up Social History Tobacco Use Types Packs/Day [...] 12/24/2020 17:15 EDT Amarilys Valentin, RN * Do you have difficulty dressing or bathing? (5 years old or older) Answer Date of Assessment Author No 12/24/2020 17:15 EDAmarilys Puente RN * Because of a physical, mental, [...] Monteiro. She also asked to use the [employer] for camping, they've never been. I submitted the applications for both grants and updated Austin. I let her know I emailed the [facility] again asking if she can reapply for financial assistance. Pt Centered Identified Goal: Financial assistance Plan: Will update the pt once Michelle Monteiro has sent their decision. Edinson Lorenzana [facility] ADDENDUM 3:20 Pt is working on sending me her car payment bill for the [employer] documented in this encounter Plan of Treatment Upcoming Encounters Date Type Department Care Team (Late st Contact Info) Description 02/28/2025 13:00 EDT Office Visit [facility] Surgical Oncology - [facility] [address] [place], [place] [address] Maeve Morales, [address], [address] [place] [phone] documented as of this encounter Visit Diagnoses Not on filedocumented in this encounter Care Teams Road Marker Relationship Specialty Start Date End Date Batsheva Lira FNP [address] [phone] PCP - General 02/19/20 07/21/22 documented as of this encounter
--- OUTSIDE RECORDS SUMMARY | 2024-05-04 01:26 | XMS_ITS | Encounter Summary ---
Author Organization [facility] Address [address] [place] [address] Care Team Providers Care Filter Washer Name Role Phone Batsheva Lira JOHN Primary Care Provider [phone] Pam Germain MD Unavailable [phone] Reason for Visit * Reason Onset Date Comments Appointment Related 03/26/2022 Encounter Details Date Type Department Care Team (Late st Contact Info) Description 03/26/2022 Telephone [facility] Surgical Oncology - [address] [phone] Maeve Morales, DO 111 [facility], [facility] 2 [place] [phone] Appointment Related Social History Tobacco Use Types [...] Info) Description 02/28/2025 13:00 EDT Office Visit [facility] Surgical Oncology - Main [address] [address] Maeve Morales, DO 111 [facility], [facility] 2 [place] [phone] documented as of this encounter Visit Diagnoses Not on filedocumented in this encounter Care Teams Filter Washer Relationship Specialty Start Date End Date Batshvea Lira FNP [address] [phone] PCP - General 02/19/20 07/21/22 Pam Germain MD 111 [facility] 2 [place] [phone] Medical Oncology 03/22/22 documented as of this encounter
--- OUTSIDE RECORDS SUMMARY | 2024-05-04 01:26 | XMS_ITS | Encounter Summary ---
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, estrogen receptor negative, unspecified laterality ([facility]) Procedures RI REPLACEMENT TISSUE CUFF PRESSER W/PERMANENT IMPLANT RI REVISION OF RECONSTRUCTED BREAST RI GRAFTING OF AUTOLOGOUS FAT BY LIPO 50 CC OR LESS Juanito Carcamo MD FACS [address] [facility] [address] [place] [address] Phone: tel: fax: Referral ID Status Reason Start Date Expiration Date Visits Re quested Visits Authorized [id number] 08/22/2021 1 1 Encounter Details Date Type Department Care Team (Late st Contact Info) Description 01/11/2022 7:25 EDT - 01/11/2022 12:30 EDT Surgery [facility] OR [address] [place] [address] Juanito Carcamo MD FACS [address] [facility] [address] [place] [phone] bilateral exchange of tissue expanders to silicone implants with fat grafting for breast reconstruction (fat from abdomen) [00718 (CPT??)] Surgery Details Date/Time Status Location OR Service Patient Class Case Cl ass Case Type Trauma Case? 01/11/2022 0725 Posted [facility] OR [address] Outpatient Surgery H - Elective Panel 1 Procedure LRB Anes Op Region Wound Class Comments bilateral exchange of tissue expanders to silicone implants with fat grafting for breast reconstruction (fat from abdomen) Bilateral General Breast Class I / Clean REVISION, RECONSTRUCTION, BR EAST, BILATERAL, USING FAT GRAFT Bilateral General Breast Class I/ Clean Surgeon Surgeon Role Service Panel Juanito Carcamo MD [facility] Primary Plastics 1 Anali Navas PA-C Assisting [...] daily for 5 days. 20 capsule 01/11/2022 2 HYDROmorphone (DILAUDID) 2 mg tablet Take 1 [...] at 01/12/2022 10:20 EDT Source Note - CHIEF SCIENTIFIC OFFICER, SCAN 2 - 12/31/2021 9:13 EDT documented [...] 1502 EDT Operative Note Date: 01/11/2022 Location: [facility] OR Name: Austin Squires, : 1975, PREOPERATIVE DIAGNOSIS: 1. S/P bilateral tissue director oracle database breast reconstruction with allograft. POSTOPERATIVE DIAGNOSIS: 1. S/P bilateral tissue director oracle database breast reconstruction with allograft. PROCEDURE : 1. Exchange of Bilateral Tissue Expanders to Silicone Implants. 2. Fat grafting from abdomen to bilateral breasts. Surgeons: * Juanito Carcamo MD FACS - Primary * Anali Navas PA-C - Assisting * Colleen Marin MD - Resident - Assisting Physician Internet Sourcer Attestation: Ms. Paniaguaa necessary and integral participant in the case and present for the entirety of the case. She served to provide aid in exposure, hemostasis, closure and other intraoperative technical functions that helped me carry out a safe operation with optimal results for the patient.) There is no plastic surgery training program at the [facility] and as such there was no qualified resident available to assist. Procedure Summary Anesthesia: General ASA: II Estimated Blood Loss: 100 mL INDICATIONS: Please see office dictation. Briefly, Austin Squires is a 46 y.o. female who has undergone bilateral tissue director oracle database breast reconstruction with allograft. She is here [...] fat and donor site deformity. Signed informed [place] [employer] and signed informed [...] placed. I eventually selected the 755 cc Harrold smooth round Moderate Plus Xtra profile silicone [...] Surgery: 01/11/2022 Surgeon: Juanito Carcamo MD Assistants: TAOC Ha MD Pre-Op Diagnosis: hx of breast [...] [facility] - [address] [phone] Maeve Morales, 111 [facility], [facility], Level 2 [place] [phone] Scheduled Referrals Name Type Priority Associated Diagnoses [...] Needs Waiting for implant orders REMOVAL, TISSUE CUFF PRESSER, BREAST, BILATERAL, WITH BILATERAL BREAST IMPLANT INSERTION [...] 01/13/2022 14:5 2 EDT us Scan 2 Wastewater Technician PROCEDURE/MINOR SURGICAL OR DERABLES Final Result * IMPLANT RECORD - SCANNED (01/12/2022 13:50 EDT) 01/12/2022 13:5 0 EDT us Scan 2 Wastewater Technician PROCEDURE/MINOR SURGICAL OR DERABLES Final Result * (ABNORMAL) POCT GLUCOSE, INTERFACED (01/11/2022 13:24 EDT) Glucose, POC 149(H) 70 - 100 mg/dL 01/11/2022 13:25 EDT [facility] HN LAB POC COMMENT (GLUCOSE) Test Performed by Nursing Services 01/11/2022 13:25 EDT [facility] Blood CAPILLARY BLOOD / Unknown 01/11/2022 13:24 EDT 01/11/2022 13:25 EDT us Ric Allen MD PhD POINT OF CARE T EST ORDERABLES Final Result Performing Organization Address City/State/[facility] Co de Phone Number [facility] [address] [place] [address] * SURGICAL PATHOLOGY (01/11/2022 8:29 EDT) Note to Patient The following pathology results have been interpreted by your pathologist and may be available to you before your health provider has had the opportunity to review them. Please allow time for your provider to receive these results and explore management options, if applicable. 01/13/2022 14:56 T [facility] Final Diagnosis A. BREAST, [...] - Negative for malignancy. 01/13/2022 14:56 T [facility] Attestation There was significant resident/fellow involvement in the diagnostic evaluation of this case. By the signature below, the attending physician certifies that they have personally conducted a gross and/or microscopic examination of the described specimens and rendered or confirmed the above diagnosis. 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 Java Android Developer sections are submitted in A1. B. Received in normal saline labelled with proper patient identification (initials H, R) and left mastectomy scar is an elongated centrally scarred elliptical skin, 13.2 by 0.5 cm which is excised to a depth of 0.4 cm. Areas of mild slight firmness are present. Java Android Developer sections are submitted in B1. C. Received in normal saline labelled with proper patient identification (initials H, R) and ? left breast tissue are irregular and elliptical portions of skin and fibroadipose tissue aggregating 20 g. The skin surfaces are without gross lesions. The fibroadipose tissues are without areas of induration. Java Android Developer sections are submitted in C1. D. Received in normal saline labelled with proper patient identification (initials H, R) and right breast tissue are irregular and elliptical portions of skin and fibroadipose tissue aggregating 15 g. The skin surfaces range from smooth rivera-brown to sosa and wrinkled. The fibroadipose tissues are without areas of induration. Java Android Developer sections are submitted in D1. SOCORRO LARSON(ASCP) 01/12/2022 10:24 01/13/2022 14:56 [facility] Resident/Chris w: Mikey Self MD 01/13/2022 14:56 [facility] Performing Lab [facility] 01/13/2022 14:56 [facility] Scanned Images 01/13/2022 14:56 [facility] Tissue [...] Carcamo MD FACS PATHOLOGY ORDERABLES Final Result Performing Organization Address [facility] Co de Phone Number [facility] [address] [place] [address] * (ABNORMAL) POCT GLUCOSE, INTERFACED (01/11/2022 7:06 EDT) Glucose, POC 134(H) 70 - 100 mg/dL 01/11/2022 7:13 EDT [facility] HN LAB POC COMMENT (GLUCOSE) Test Performed by Nursing Services 01/11/2022 7:13 EDT [facility] Blood CAPILLARY BLOOD / Unknown 01/11/2022 7:06 EDT 01/11/2022 7:13 EDT us Juantio Carcamo MD FACS POINT OF CARE TEST O RDERABLES Final Result Performing Organization Address [facility] Co de Phone Number [facility] [address] [place] [address] * TEST, URINE (01/11/2022 6:24 EDT) Test, Urine Negative Negative 01/11/2022 6:38 EDT [facility] Comment:False negative resul ts may occur in women who are beyond 5-8 weeks gestation. Diagnosis of should be based on a correlation of test results with typical clinical signs and symptoms. Urine URINE / Unknown Urine Collect / Unknown 01/11/2022 6:24 EDT 01/11/2022 6:29 EDT us Juanito Carcamo MD FACS URINALYSIS ORDERABLE S Final Result [facility] [address] [place] [address] documented in this encounter Visit Diagnoses Diagnosis [...] 01/11/2022 fentaNYL citrate (PF) injection 25-50 mcg 01/11/2022 glucagon injection 1 mg 01/11/2022 HYDROmorphone (PF) (DILAUDID ) 0.5 mg/0.5 [...] 12/15 documented in this encounter Care Teams Health Information Tech Relationship Specialty Start Date End Date Batsheva Lira FNP [address] [phone] PCP - General 02/19/20 07/21/22 documented as of this encounter
--- OUTSIDE RECORDS SUMMARY | 2024-05-04 01:26 | XMS_ITS | Encounter Summary ---
Author Organization [facility] Address [address] [place] [address] Care Team Providers Care Automotive Parts Counter Assistant Name Role Phone Batsheva Lira JOHN Primary Care Provider [phone] Reason for Visit * Reason Onset Date Comments COVID-19 09/17/2021 Encounter Details Date Type Department Care Team (Late st Contact Info) Description 09/17/2021 Orders Only [facility] Plastic, Reconstructive & Cosmetic Surgery - [address], [address] [place] [address] Juanito Carcamo MD [address] [place] [phone] Malignant neoplasm of upper-inner quadrant of [...] documented in this encounter Progress Notes * Mike Gotti RN - 09/17/2021 0943 EDT Order for covid testing placed and signed prior to surgery on 01/11/ MIKE GOTTI RN 09/17/2021 9:51 documented in this encounter Plan of Treatment Upcoming Encounters Date Type Department Care Team (Late st Contact Info) Description 02/28/2025 13:00 EDT Office Visit [facility] Surgical Oncology - [address] [address] Maeve Morales, DO [address] [place] [address] [address] [place] [address] documented as of this encounter Visit Diagnoses Diagnosis 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
--- OUTSIDE RECORDS SUMMARY | 2024-05-04 01:26 | XMS_ITS | Encounter Summary ---
Author Organization [facility] Address [address] [place] [address] Care Team Providers Care Student Outreach Coordinator Name Role Phone Batsheva Lira JOHN Primary Care Provider [phone] Encounter Details Date Type Department Care Team (Late st Contact Info) Description 09/01/2021 Orders Only [facility] Pelvic Medicine and Reconstructive Surgery - Medical Office Building [address] [address] Mare Echeverria MD 2 [facility] Medical Office [facility], [address] [address] Stress incontinence (Primary Dx); Midline [...] 02/28/2025 13:00 EDT Office Visit [facility] Surgical Oncology - [address] [address] Maeve Morales, DO [address] [place] [address], [address] 2 [place] [phone] documented as of this encounter Visit Diagnoses Diagnosis Stress incontinence- Primary Female stress incontinence Midline cystocele Cystocele, midline documented in this encounter Care Teams Student Outreach Coordinator Relationship Specialty Start Date End Date Batsheva Lira FNP [address] [phone] PCP - General 02/19/20 07/21/22 documented as of this encounter
--- OUTSIDE RECORDS SUMMARY | 2024-05-04 01:26 | XMS_ITS | Encounter Summary ---
Author Organization [facility] Address [address] [place] [address] Care Team Providers Care Supervisor Research Kennel Name Role Phone Batsheva Lira JOHN Primary Care Provider [phone] Reason for Visit * Reason Comments Tissue School Curriculum Developer Fill right Encounter Details Date Type Department Care Team (Latest Contact Info) Description 09/08/2021 8:30 EDT Post-op Visit [facility] Plastic, Reconstructive & Cosmetic Surgery - [address], [address] [place] [address] Oksana Wilkins PA-C [address] [place] [address] [address] [place] [address] Surgery follow-up (Primary Dx) Social [...] Info) Description 02/28/2025 13:00 EDT Office Visit [facility] Surgical Oncology - [address] [phone] Maeve Morales 111 [facility], Level 2 [place] [phone] documented as of this encounter Visit Diagnoses Diagnosis Surgery follow-up- Primary Follow-up examination, following unspecified surgery documented in this encounter Care Teams Supervisor Research Kennel Relationship Specialty Start Date End Date Batsheva Lira FNP [address] [place] [phone] PCP - General 02/19/20 07/21/22 documented as of this encounter
--- OUTSIDE RECORDS SUMMARY | 2024-05-04 01:26 | XMS_ITS | Encounter Summary ---
Author Organization [facility] Address [address] [place] [address] Care Team Providers Care Film Sound Coordinator Name Role Phone Batsheva Lira JOHN Primary Care Provider [phone] Reason for Visit * Reason Onset Date Comments Other 02/15/2022 Encounter Details Date Type Department Care Team (Late st Contact Info) Description 02/15/2022 Telephone [facility] Plastic, Reconstructive & Cosmetic Surgery - [address], [address] [place] [address] Juanito Carcamo MD [address] [place] [phone] Other Social History Tobacco Use Types [...] tomorrow when he is in clinic. MIKE OGTTI RN 02/15/2022 11:33 * Telephone Encounter - Mary Stanton - 02/15/2022 1103 EDT Can she be adjusted by a chiro this soon after surgery? documented in this encounter Plan of Treatment Upcoming Encounters Date Type Department Care Team (Late st Contact Info) Description 02/28/2025 13:00 EDT Office Visit [facility] Surgical Oncology - [address] [phone] Maeve Morales, DO [address] [place] [address], [address] [place] [address] documented as of this encounter Visit Diagnoses Not on filedocumented in this encounter Care Teams Film Sound Coordinator Relationship Specialty Start Date End Date Batsheva Lira FNP [address] [phone] PCP - General 02/19/20 07/21/22 documented as of this encounter
--- OUTSIDE RECORDS SUMMARY | 2024-05-04 01:26 | XMS_ITS | Encounter Summary ---
Author Organization [facility] Address [address] [place] [address] Care Team Providers Care Diversified Crops Ii Farmworker Name Role Phone Batsheva Lira JOHN Primary Care Provider [phone] Reason for Visit * Reason Onset Date Comments Post-OP Follow Up 01/13/2022 Encounter Details Date Type Department Care Team (Late st Contact Info) Description 01/13/2022 Telephone [facility] Plastic, Reconstructive & Cosmetic Surgery - [address], [address] [place] [address] Katia Degroot RN [address] [place] [address] Post-OP Follow Up Social History Tobacco [...] Encounter - Katia Degroot RN - 01/13/2022 1527 EDT Post op follow up phone call [...] arise Date of post-op/ follow up visit 9/6/22 at 1300 with TACO Cross RN documented in this encounter Plan of Treatment Upcoming Encounters Date Type Department Care Team (Late st Contact Info) Description 02/28/2025 13:00 EDT Office Visit [facility] Surgical Oncology - [address] [phone] Maeve Morales DO 111 [facility], [address] [place] [phone] documented as of this encounter Visit Diagnoses Not on filedocumented in this encounter Historical Medications * This list may reflect changes made after this encounter. docusate sodium (COLACE) 50 mg capsule Take 50 mg by mouth 2 times daily as needed for Constipation. 07/22/2022 added in this encounter Care Teams Diversified Crops Ii Farmworker Relationship Specialty Start Date End Date Batsheva Lira FNP [address] [phone] PCP - General 02/19/20 07/21/22 documented as of this encounter
--- OUTSIDE RECORDS SUMMARY | 2024-05-04 01:26 | XMS_ITS | Encounter Summary ---
Author Organization [facility] Address [address] [place] [address] Care Team Providers Care Project Finance Analyst Name Role Phone Batsheva Lira JOHN Primary Care Provider [phone] Reason for Visit * Reason Comments Follow-up Encounter Details Date Type Department Care Team (Late st Contact Info) Description 11/06/2021 9:15 EDT Office Visit [facility] Hematology & Oncology - [address] [phone] Pam Germain MD [address] [place] [address], [address] [place] [address] Triple negative malignant neoplasm of [...] Progress Notes * Pam Germain MD - 11/06/2021914 EDT Medical Oncology Note Date: 11/05/21 Name: Austin Squires Surgeon: Dr. 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 Early stage TNBC Breast Cancer ?? Body Artist noticed a mass in her left breast [...] testing: negative (9 gene panel performed through [employer] was performed) Subjective Patient presents today in [...] Reviewed. Allergies: Reviewed. Social History: Lives in [facility]. Has young daughter (age 9 or 10) [...] his 90s. ??Her paternal relatives are of [place]ian [place] descent. 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
--- OUTSIDE RECORDS SUMMARY | 2024-05-04 01:26 | XMS_ITS | Encounter Summary ---
Author Organization [facility] Address [address] [place] [address] Care Team Providers Care Combine Mechanic Name Role Phone Batsheva Lira JOHN Primary Care Provider [phone] Pam Germain MD Unavailable [phone] Reason for Referral * Radiology Services (Routine/Next Available) - Authorization Not Required Specialty Diagnoses / Procedures [facility] Referred To Contact Diagnoses Thumb pain, left Procedures XR FINGER LEFT 2 OR MORE VIEWS Pam Germain MD Phone: tel: fax: 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 (5 years old or older) Answer Entry Date Author No 12/24/2020 17:15 EDT Amarilys Valentin RN documented in this encounter Progress Notes * Pam Germain MD - 04/23/2022 0930 EST Medical Oncology Note Name: Austin Squires Surgeon: Dr. 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 Early stage TNBC Breast Cancer ?? Quality Assurance noticed a mass in her left breast in early June 2020 ?? Imaging and a biopsy on 07/09/20??of a 2.1 cm mass revealed a nuclear grade 3 ER negative VA negative for HER2 negative ductal carcinoma.? Staging [...] testing: negative (9 gene panel performed through [employer] was performed) Subjective Patient presents today in follow up. She had implants placed in December. Notes some neck pain and tension and some muscle tightness of chest. Moved to [facility]. Overall she feels well and no concerns other than went bow hunting in February and injured her left thumb. Still hurts and having trouble using. No lingering side effects of chemotherapy noted, with the exception of some memory changes that aremild. Notes ongoing fatigue. Past Medical & Surgical History: 1. Hepatic steatosis 2. HTN 3. Anxiety 4. Urinary incontinence 5. Cholecystectomy in 2017 Medications: Reviewed. Allergies: Reviewed. Social History: Lives in [facility]. Has young daughter and two adult children [...] his 90s. ??Her paternal relatives are of [place] descent. Objective Performance Status: ECOG PS 0 [...] Office Visit [facility] Surgical Oncology - [address] [address] Maeve Morales, DO 111 [facility], [facility], Level [address] [place] [address] documented as of this encounter [...] left documented in this encounter Care Teams Combine Mechanic Relationship Specialty Start Date End Date Batsheva Lira FNP [address] [phone] PCP - General 02/19/20 07/21/22 Pam Germain MD [address] [place] [address] 2 [place] [address] Medical Oncology 03/22/22 documented as of this encounter
--- OUTSIDE RECORDS SUMMARY | 2024-05-04 01:26 | XMS_ITS | Encounter Summary ---
Author Organization [facility] Address [address] [place] [address] Care Team Providers Care Chemical Milling Processor Name Role Phone Batsheva Lira JOHN Primary Care Provider [phone] Reason for Visit * Reason Onset Date Comments Follow-up 10/23/2021 Encounter Details Date Type Department Care Team (Late st Contact Info) Description 10/23/2021 Telephone [facility] Cancer Center Hematology & Oncology - [address] [phone] Edinson Lorenzana, BONE CHAR OPERATOR Follow-up Social History Tobacco Use Types [...] Notes * Telephone Encounter - Edinson Lorenzana, [facility] - 10/23/2021 0938 EDT JUDIT VICK Note: Reason for Call: Pt sent me a message explaining, was wondering if any of the grants will apply to me now? I replied to her explaining, Lyn Avila, I hope you are well. So you had applied for the [employer] [facility], Michelle Monteiro and the Cancer patient support foundation back in July. You need to wait a year to reapply and will need to be in activetreatment. You can reapply for the [a]list [employer] foundation as you last received funding September of [...] have you looked into VERAP at all? [facility] Emergency Rental Assistance Program (vsha.org) Edinson Pt Centered Identified Goal: Financial assistance Plan: Waiting to hear back from the pt. Edinson Harriett [facility] ADDENDUM 1:45 Pt responded to my message and asked me to check on the year in which the grants I had mentioned were used. She thought it was back in 2020. Pt is correct, CHRISTIANNE Meeta, [facility] and the [employer] Monteiro grants were used back in 2020. I [...] active tx. I sent messages to the [facility], [facility], Michelle Monteiro and the [facility] asking about eligibility. documented in this encounter Plan of Treatment Upcoming Encounters Date Type Department Care Team (Late st Contact Info) Description 02/28/2025 13:00 EDT Office Visit [facility] Surgical Oncology - [address] [address] Maeve Morales, 111 [facility], [facility], Level [address] [place] [address] documented as of this encounter Visit Diagnoses Not on filedocumented in this encounter Care Teams Chemical Milling Processor Relationship Specialty Start Date End Date Batsheva Lira FNP [address] [address] PCP - General 02/19/20 07/21/22 documented as of this encounter
--- OUTSIDE RECORDS SUMMARY | 2024-05-04 01:26 | XMS_ITS | Encounter Summary ---
Author Organization [facility] Address [address] [place] [address] Care Team Providers Care Multimedia Production Assistant Name Role Phone Batsheva Lira JOHN Primary Care Provider [phone] Reason for Visit * Reason Onset Date Comments Follow-up 10/26/2021 Encounter Details Date Type Department Care Team (Late st Contact Info) Description 10/26/2021 Telephone [facility] Cancer Center Hematology & Oncology - [address] [phone] Edinson Lorenzana, WRAPPER SHEETER Follow-up Social History Tobacco Use Types Packs/Day [...] Note: Reason for Call: Heather from the CHRISTIANNE Fund replied to our question regarding if Austin [...] Office Visit [facility] Surgical Oncology - [address] [address] Maeve Morales, DO 111 [facility], Level [address] [place] [phone] documented as of this encounter Visit Diagnoses Not on filedocumented in this encounter Care Teams Multimedia Production Assistant Relationship Specialty Start Date End Date Batsheva Lira FNP [address] [phone] PCP - General 02/19/20 07/21/22 documented as of this encounter
--- OUTSIDE RECORDS SUMMARY | 2024-05-04 01:26 | XMS_ITS | Encounter Summary ---
Author Organization [facility] Address [address] [place] [address] Care Team Providers Care Filter Press Tender Name Role Phone Batsheva Lira JOHN Primary Care Provider [phone] Reason for Visit * Reason Onset Date Comments Follow-up 10/28/2021 Encounter Details Date Type Department Care Team (Late st Contact Info) Description 10/28/2021 Telephone [facility] Cancer Center Hematology & Oncology - [address] [phone] Edinson Lorenzana, GRAIN ELEVATOR MAN Follow-up Social History Tobacco Use Types Packs/Day [...] of Assessment Author No 12/24/2020 17:15 Amarilys Micahud RN * Do you have serious difficulty [...] Notes * Telephone Encounter - Edinson Lorenzana, [facility] - 10/28/2021 1532 EDT JUDIT VICK Note: Reason for Call: I emailed Austin letting her know that [facility] said she can reapply for assistance give the fact she's pursuing reconstruction surgery. I sent her the following message, Lyn Avila [facility] replied and said absolutely you can reapply for assistance. You or I can apply for [facility] grants that are available, Home [facility] If you want me to apply, I [...] Description 02/28/2025 13:00 EDT Office Visit [facility] Surgical Oncology - [address] [address] Maeve Morales, DO 111 [facility], Level [address] [place] [phone] documented as of this encounter Visit Diagnoses Not on filedocumented in this encounter Care Teams Filter Press Tender Relationship Specialty Start Date End Date Batsheva Lira FNP [address] [phone] PCP - General 02/19/20 07/21/22 documented as of this encounter
--- OUTSIDE RECORDS SUMMARY | 2024-05-04 01:26 | XMS_ITS | Encounter Summary ---
Author Organization [facility] Address [address] [place] [address] Care Team Providers Care Rivet Spinner Name Role Phone Batsheva Lira JOHN Primary Care Provider [phone] Reason for Visit * Reason Onset Date Comments Follow-up 10/30/2021 Encounter Details Date Type Department Care Team (Late st Contact Info) Description 10/30/2021 Telephone [facility] Cancer Center Hematology & Oncology - [address] [address] Edinson Lorenzana, OIL PIPE INSPECTOR Follow-up Social History Tobacco Use Types Packs/Day [...] Entry Date Author No 12/24/2020 17:15 Amarilys Michadu RN documented in this encounter Miscellaneous Notes [...] explained again we're still waiting for the [facility] to reply. Pt Centered Identified Goal: Financial assistance Plan: Continue to support the pt w/ patient financial counselor grants. Edinson COON documented in this encounter Plan of Treatment Upcoming Encounters Date Type Department Care Team (Late st Contact Info) Description 02/28/2025 13:00 EDT Office Visit [facility] Surgical Oncology - [address] [address] Maeve Morales, DO 111 [facility] Level [address] [place] [phone] documented as of this encounter Visit Diagnoses Not on filedocumented in this encounter Care Teams Rivet Spinner Relationship Specialty Start Date End Date Batsheva Lira FNP [address] [phone] PCP - General 02/19/20 07/21/22 documented as of this encounter
--- OUTSIDE RECORDS SUMMARY | 2024-05-04 01:26 | XMS_ITS | Encounter Summary ---
Author Organization [facility] Address [address] [place] [address] Care Team Providers Care Dry Food Products Mixer Name Role Phone Batsheva Lira POWER AND RECOVERY SHIFT ENGINEER Primary Care Provider [phone] Pam Germain MD Unavailable [phone] Janay Duran MILLWRIGHT APPRENTICE Primary Care Provider [phone] Inez Corado DO Primary Care Provid er Encounter Details Date Type Department Care Team (Late st Contact Info) Description 09/16/2021 Lab Requisition [facility] - [facility] [address] [place] [address] Judd Dye, MILLWRIGHT APPRENTICE Frequency of micturition Social History Tobacco Use [...] Info) Description 02/28/2025 13:00 EDT Office Visit [facility] Surgical Oncology - [address] [phone] Maeve Morales, DO 111 [facility], Level 2 [place] [phone] documented as of this encounter Procedures Procedure Name Priority Date/Time Associated Diagnosis Comments ORGANISM IDENTIFICATION AND SUSCEPTIBILITY Routine 09/16/2021 8:48 EDT Frequency of micturition documented in this encounter Results * (ABNORMAL) ORGANISM IDENTIFICATION AND SUSCEPTIBILITY (09/16/2021 8:48 EDT) Organism ID Escherichia coli(A) VITEK SUSCEPTIBILITY 09/18/2021 8:50 EDT [facility] Comment: Cefazolin susceptibility results [...] only cefpodoxime and cephalexin are on the [facility] inpatient formulary. Organism (organism) URINE / Unknown [...] ug/mL: Susceptible Judd Dye APRN MICROBIOLOGY - GENERAL OR DERABLES Final Result [facility] [address] [place] [address] documented in this encounter Visit Diagnoses Diagnosis Frequency of micturition Urinary frequency documented in this encounter Care Teams Dry Food Products Mixer Relationship Specialty Start Date End Date Batsheva Lira FNP [address] [phone] PCP - General 02/19/20 07/21/22 Janay Duran APRN [address] [place] [phone] PCP - General Family Medicine - Primary Care 07/22/22 02/12/24 Inez Corado DO [address] [place] [phone] PCP - General Family Medicine - Primary Care 02/13/24 Pam Germain MD [address] [place] [phone] Medical Oncology 03/22/22 documented as of this encounter
--- OUTSIDE RECORDS SUMMARY | 2024-05-04 01:26 | XMS_ITS | Encounter Summary ---
Author Organization [facility] Address [address] [place] [address] Care Team Providers Care Post Acute Care Registered Nurse Name Role Phone Batsheva Lira JOHN Primary Care Provider [phone] Reason for Visit * Reason Onset Date Comments Appointment Related 11/10/2021 Encounter Details Date Type Department Care Team (Late st Contact Info) Description 11/10/2021 Telephone [facility] Cancer Center Hematology & Oncology - [address] [phone] Pam Germain MD 111 [facility], Level 2 [place] [address] Appointment Related Social History Tobacco [...] Info) Description 02/28/2025 13:00 EDT Office Visit [facility] Surgical Oncology - [address] [address] Maeve Morales, DO 111 [facility], Level 2 [place] [phone] documented as of this encounter Visit Diagnoses Not on filedocumented in this encounter Care Teams Post Acute Care Registered Nurse Relationship Specialty Start Date End Date Batsheva Lira FNP [address] [phone] PCP - General 02/19/20 07/21/22 documented as of this encounter
--- OUTSIDE RECORDS SUMMARY | 2024-05-04 01:26 | XMS_ITS | Encounter Summary ---
Author Organization [facility] Address [address] [place] [address] Care Team Providers Care Sanitation Worker Name Role Phone Batsheva Lira JOHN Primary Care Provider [phone] Reason for Visit * Reason Comments Post-OP Follow Up Post op: Everything is goign well, no conerns. Encounter Details Date Type Department Care Team (Latest Contact Info) Description 10/23/2021 9:00 EDT Post-op Visit [facility] Pelvic Medicine and Reconstructive Surgery - Medical Office [address] [phone] Mare Echeverria MD 2 [facility] Medical Office [facility], [address] [phone] Stress incontinence (Primary Dx); Cystocele, midline Social [...] Vagina: Nontender, no mesh exposure, nontender, negative VALVE PIPE IRRIGATOR Assessment/Plan: Doing well s/p TVT, AR. Meeting post-op milestones, restrictions reviewed. RTC if any concerns. Mare Echeverria MD documented in this encounter Plan of Treatment Upcoming Encounters Date Type Department Care Team (Late st Contact Info) Description 02/28/2025 13:00 EDT Office Visit [facility] Surgical Oncology - [address] [address] Maeve Morales, 111 [facility], [facility], Level 2 [place] [phone] documented as of this encounter Visit Diagnoses Diagnosis Stress incontinence- Primary Female stress incontinence Cystocele, midline documented in this encounter Care Teams Sanitation Worker Relationship Specialty Start Date End Date Batsheva Lira FNP [address] [place] [phone] PCP - General 02/19/20 07/21/22 documented as of this encounter
--- OUTSIDE RECORDS SUMMARY | 2024-05-04 01:26 | XMS_ITS | Encounter Summary ---
Author Organization [facility] Address [address] [place] [address] Care Team Providers Care Sheet Heater Name Role Phone Batsheva Lira JOHN Primary Care Provider [phone] Pam Germain MD Unavailable [phone] Reason for Visit * Reason Onset Date Comments Appointment Related 04/15/2022 Encounter Details Date Type Department Care Team (Late st Contact Info) Description 04/15/2022 Telephone [facility] Surgical Oncology - [address] [phone] Maeve Morales, DO 111 [facility], [facility] 2 [place] [phone] Appointment Related Social History Tobacco Use Types [...] Info) Description 02/28/2025 13:00 EDT Office Visit [facility] Surgical Oncology - Main [address] [address] SowMaeve jimenez DO 111 [facility], [facility] 2 [place] [phone] documented as of this encounter Visit Diagnoses Not on filedocumented in this encounter Care Teams Sheet Heater Relationship Specialty Start Date End Date Batsheva Lira FNP [address] [phone] PCP - General 02/19/20 07/21/22 Pam Germain MD [address] [facility] 2 [place] [phone] Medical Oncology 03/22/22 documented as of this encounter
--- OUTSIDE RECORDS SUMMARY | 2024-05-04 01:27 | XMS_ITS | Encounter Summary ---
Author Organization [facility] Address [address] [place] [address] Care Team Providers Care Coding Coordinator Name Role Phone Batsheva Lira JOHN Primary Care Provider [phone] Reason for Visit * Reason Comments Other Encounter Details Date Type Department Care Team (Late st Contact Info) Description 08/02/[address] [facility] Cancer Center Hematology & Oncology - [address] [address] Liat Honeycutt, PA-C [address] [place] [address], [facility] 2 [place] [phone] Other Social History Tobacco Use [...] Refills Last Filled Start Date End Date gabapentin (NEURONTIN) 300 mg capsuleIndications :Hot flashes TAKE 1 CAPSULE BY MOUTH AT BEDTIME. MAY INCREASE TO 2 CAPSULES IF TOLERATED 30 capsule 1 08/03/2021 documented in this encounter Plan of Treatment Upcoming Encounters Date Type Department Care Team (Late st Contact Info) Description 02/28/2025 13:00 EDT Office Visit [facility] Surgical Oncology - [address] [address] Maeve Morales, [address] [place] [address], Level 2 [place] [phone] documented as of this encounter Visit Diagnoses Diagnosis Hot flashes- Primary Symptomatic menopausal or female climacteric states documented in this encounter Discontinued Medications Medication Sig Discontinue Reason Start Date End Da te gabapentin (NEURONTIN) 300 mg capsule 1 cap po hs, may increase to 2 caps if tolerated. 06/23/2021 08/03/2021 documented as of this encounter Care Teams Coding Coordinator Relationship Specialty Start Date End Date Batsheva Lira FNP [address] [phone] PCP - General 02/19/20 07/21/22 documented as of this encounter
--- OUTSIDE RECORDS SUMMARY | 2024-05-04 01:27 | XMS_ITS | Encounter Summary ---
Author Organization [facility] Address [address] [place] [address] Care Team Providers Care Restaurant Server Name Role Phone Batsheva Lira JOHN Primary Care Provider [phone] Reason for Visit * Reason Comments Follow-up Encounter Details Date Type Department Care Team (Late st Contact Info) Description 08/11/2021 10:00 EDT Office Visit [facility] Surgical Oncology - [address] [address] Maeve Morales, DO 111 [facility], Level 2 [place] [phone] Malignant neoplasm of upper-inner quadrant of left [...] thathad a physical examination finding at 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 This was done with an immediatetissue ice skating teacher reconstruction. Unfortunately her pathology did not show [...] May of this year her right tissue ice skating teacher unexpectedly ruptured and she had to go back to the OR to have it replaced. She is in the process of having an ice skating teacher drained now. She notes no new masses [...] the process of reexpanding her right tissue ice skating teacher. She is trying to decide between a [...] Info) Description 02/28/2025 13:00 EDT Office Visit [facility] Surgical Oncology - [facility] [address] [place] [address] Maeve Morales, DO 111 [facility], Level 2 [place] [phone] documented as of this encounter Procedures Procedure Name Priority Date/Time Associated Diagnosis Comments ORDERS - SCANNED 08/12/2021 10:51 EDT documented in this encounter Results * ORDERS - SCANNED (08/12/2021 10:51 EDT) 08/12/2021 10:5 1 EDT us Scan [address] ADMISSION ORDERABLES Final Result documented in this encounter Visit Diagnoses Diagnosis Malignant 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, estrogen receptor negative ([facility])- Primary documented in this encounter Care Teams Restaurant Server Relationship Specialty Start Date End Date Batsheva Lira FNP [address] [place] [phone] PCP - General 02/19/20 07/21/22 documented as of this encounter
--- OUTSIDE RECORDS SUMMARY | 2024-05-04 01:27 | XMS_ITS | Encounter Summary ---
Author Organization [facility] Address [address] [place] [address] Care Team Providers Care Dietary Assistant Name Role Phone Batsheva Lira JOHN Primary Care Provider [phone] Reason for Visit * Reason Onset Date Comments Follow-up 08/31/2021 Encounter Details Date Type Department Care Team (Late st Contact Info) Description 08/31/[address] [facility] Cancer Center Hematology & Oncology - [address] [phone] Edinson Lorenzana, ECG TECHNICIAN Follow-up Social History Tobacco Use Types [...] Info) Description 02/28/2025 13:00 EDT Office Visit [facility] Surgical Oncology - [address] [phone] Maeve Morales, DO 111 [facility], [facility], Level 2 [place] [address] documented as of this encounter Visit Diagnoses Not on filedocumented in this encounter Care Teams Dietary Assistant Relationship Specialty Start Date End Date Batsheva Lira FNP [address] [phone] PCP - General 02/19/20 07/21/22 documented as of this encounter
--- OUTSIDE RECORDS SUMMARY | 2024-05-04 01:27 | XMS_ITS | Encounter Summary ---
Author Organization [facility] Address [address] [place] [address] Care Team Providers Care Carton Inspector Name Role Phone Batsheva Lira JOHN Primary Care Provider Reason for Visit * Reason Onset Date Comments Appointment Related 08/19/2021 Encounter Details Date Type Department Care Team (Late st Contact Info) Description 08/19/[address] [id number] Vivian Melara Appointment Related Social History Tobacco [...] Department Care Team (Late Contact Info) Description 02/28/2025 13:00 EDT Office Visit [facility] Surgical Oncology - [address] [phone] Maeve Morales, DO 111 [facility], [facility], [address] [place] [address] documented as of this encounter Visit Diagnoses Not on filedocumented in this encounter Care Teams Carton Inspector Relationship Specialty Start Date End Date Batsheva Lira FNP [address] [place] [phone] PCP - General 02/19/20 07/21/22 documented as of this encounter
--- OUTSIDE RECORDS SUMMARY | 2024-05-04 01:27 | XMS_ITS | Encounter Summary ---
Author Organization [facility] Address [address] [place] [address] Care Team Providers Care Zigzag Tunnel Elastic Operator Name Role Phone Batsheva Lira JOHN Primary Care Provider [phone] Reason for Visit * Reason Comments Tissue Donor Services Manager Fill right Encounter Details Date Type Department Care Team (Late st Contact Info) Description 07/13/2021 13:45 EST Office Visit [facility] Plastic, Reconstructive & Cosmetic Surgery - [address], [address] [place] [address] Oksana Wilkins PA-C [address] [facility] [address] [place] [address] Surgery follow-up (Primary Dx) Social [...] Notes * Anali Navas PA-C - 07/13/2021 0736 EST SUBJECTIVE: Austin Squires returns in follow up from right TE exchange with a TE on 06/18/[address] Carcamo. She is doing well. No acute health reports today. A TE fill is planned. Of note, pt did just return from a trip to [facility]. She states that while in [place] she ran into a stroller which caused [...] Info) Description 02/28/2025 13:00 EDT Office Visit [facility] Surgical Oncology - [address] [address] Maeve Morales, DO [address] [place] [address], [address] [place] [phone] documented as of this encounter Visit Diagnoses Diagnosis Surgery follow-up- Primary Follow-up examination, following unspecified surgery documented in this encounter Care Teams Zigzag Tunnel Elastic Operator Relationship Specialty Start Date End Date Batsheva Lira FNP [address] [phone] PCP - General 02/19/20 07/21/22 documented as of this encounter
--- OUTSIDE RECORDS SUMMARY | 2024-05-04 01:27 | XMS_ITS | Encounter Summary ---
Author Organization [facility] Address [address] [place] [address] Care Team Providers Care Hardening Machine Operator Helper Name Role Phone Batsheva Lira JOHN Primary Care Provider [phone] Encounter Details Date Type Department Care Team (Late st Contact Info) Description 08/28/2021 Documentation Visit [facility] Hematology & Oncology - [facility] [address] [place] [address] Edinson Lorenzana, SHAGGY Social History Tobacco Use Types Packs/Day Years [...] documented in this encounter Progress Notes * Edinson Lorenzana [...] approved, taking SSDI now would impact her fpc benefits later in life. Pt was understanding [...] Info) Description 02/28/2025 13:00 EDT Office Visit [facility] Surgical Oncology - [address] 255[address] Maeve Morales, [address], [address] [place] [phone] documented as of this encounter Visit Diagnoses Not on filedocumented in this encounter Care Teams Hardening Machine Operator Helper Relationship Specialty Start Date End Date Batsheva Lira FNP [address] [phone] PCP - General 02/19/20 07/21/22 documented as of this encounter
--- OUTSIDE RECORDS SUMMARY | 2024-05-04 01:27 | XMS_ITS | Encounter Summary ---
Author Organization [facility] Address [address] [place] [address] Care Team Providers Care Auto Former Machine Operator Name Role Phone Batsheva Lira JOHN Primary Care Provider [phone] Reason for Visit * Reason Onset Date Comments Follow-up 06/26/2021 Encounter Details Date Type Department Care Team (Late st Contact Info) Description 06/26/2021 Telephone [facility] Hematology & Oncology - [address] [phone] Edinson Lorenzana, FLAP MAKER Follow-up Social History Tobacco Use Types Packs/Day [...] Notes * Telephone Encounter - Edinson Lorenzana, [facility] - 06/26/2021 0851 EST JUDIT VICK Note: Reason for Call: Pt sent me the following email, hi. just wanted to check in. still working on ssi and ssd. was wondering if any new grants are available this year? I replied stating, Lyn Avila, 1) Cancer Patient support Foundation is for $450. You have to wait until 07/23 to reapply. Assistance can reimburse or pay a bill on your behalf. Takes a week to send out payment. 2) [employer] is for $500, you also need to wait until 3 to reapply. Assistance can reimburse or pay a bill on your behalf. Takes 1-2 months to send out payment. 3) Doesn???t sound like you ever applied for the [employer] This is for $800. Income verification would [...] hear back from the pt. Edinson Lorenzana [facility] ADDENDUM 11:05 Pt sent me back the Sodbuster jesus signed and the [employer] consent form signed. She also included an online statement for her car payment and phone payment, total $847. Pt requested $1K. I explained to her that we can submit the statements to the [employer] foundation. For the [facility] I reminded her I need income verification for her household, names and and a description of her financial hardship. documented in this encounter Plan of Treatment Upcoming Encounters Date Type Department Care Team (Late st Contact Info) Description 02/28/2025 13:00 EDT Office Visit [facility] Surgical Oncology - [address] [address] Maeve Morales, DO [address] [facility], [address] [place] [phone] documented as of this encounter Visit Diagnoses Not on filedocumented in this encounter Care Teams Auto Former Machine Operator Relationship Specialty Start Date End Date Batsheva Lira FNP [address] [phone] PCP - General 02/19/20 07/21/22 documented as of this encounter
--- OUTSIDE RECORDS SUMMARY | 2024-05-04 01:27 | XMS_ITS | Encounter Summary ---
Author Organization [facility] Address [address] [place] [address] Care Team Providers Care Staff Respiratory Therapist Name Role Phone Batsheva Lira JOHN Primary Care Provider [phone] Reason for Referral * Radiology Services (Routine/Next Available) - Receiving Office to Obtain Authorization Specialty Diagnoses / Procedures Referred By Contac t Referred To Contact Diagnoses Malignant neoplasm of female breast, unspecified estrogen receptor status, unspecified laterality, unspecified site of breast ([facility]) Procedures CT ANGIO ABDOMEN PELVIS Juanito Carcamo MD FACS Phone: tel: fax: [facility] Referral ID Status Reason Start Date Expiration Date Visits Requested Visits Authorized [id number] Receiving Office to Obtain Authorization 03/20/2021 1 1 Reason for Visit * Radiology Services (Routine/Next Available) - Receiving Office to Obtain Authorization Specialty Diagnoses / Procedures Referred By Contac t Referred To Contact Diagnoses Malignant neoplasm of female breast, unspecified estrogen receptor status, unspecified laterality, unspecified site of breast ([facility]) Procedures CT ANGIO ABDOMEN PELVIS Juanito Carcamo MD FACS Phone: tel: fax: [facility] Referral ID Status Reason Start Date Expiration Date Visits Requested Visits Authorized [id number] Receiving Office to Obtain Authorization 03/20/2021 1 1 Encounter Details Date Type Department Care Team (Latest Contact Info) Description 08/18/2021 19:13 EDT - 08/18/2021 23:59 EDT Hospital Encounter [facility] Radiology CT - [address] [id number] Malignant neoplasm of female breast, unspecified estrogen receptor status, unspecified laterality, unspecified site of breast (HCC-CMS) (HCC) ([facility]) Discharge Disposition: Home or Self Care Social [...] this encounter Medications at Time of Discharge amLODIPine (NORVASC) 2.5 mg tablet Take 2.5 mg by mouth daily. 2 capecitabine (XELODA) 500 mg tablet Take 4 Tablets by mouth 2 times daily. Take for 14 days, then stop for 7 days. 112 Tablet 5 04/06/2021 2 cephalexin (KEFLEX) 500 mg capsule Take 1 capsule by mouth 4 times daily for 5 days. 20 capsule 01/11/2022 2 escitalopram oxalate (LEXAPRO) 10 mg tablet Take 30 mg by mouth daily. 3 gabapentin (NEURONTIN) 300 mg capsuleIndication s:Hot flashes TAKE 1 CAPSULE BY MOUTH AT BEDTIME. MAY INCREASE TO 2 CAPSULES IF TOLERATED 30 capsule 1 08/03/2021 2 HYDROmorphone (DILAUDID) 2 mg tablet Take 1 Tablet by mouth every 4 hours as needed for Pain. Daily Max: 12 mg 20 Tablet 01/11/2022 2 INTRAUTERINE DEVICE, IUD, INTRAUTERINE by intrauterine route. 2 metformin HCl (METFORMIN ORAL) Take by mouth. 3 traZODone (DESYREL) 50 mg tablet Take 50 mg by mouth as needed. 3 documented as of this encounter Discharge Disposition Disposition Code Departure Means Destination Home or Self [facility] documented in this encounter Plan of Treatment Upcoming Encounters Date Type Department Care Team (Late st Contact Info) Description 02/28/2025 13:00 EDT Office Visit [facility] Surgical Oncology - [address] [address] Maeve Morales, [address] [place] [address], [facility], [address] [place] [address] documented as of this encounter [...] the above interpretation andagree with the findings. us Juanito Carcamo MD [facility] IMG CT ORDERABLES Fi nal Result documented in this encounter Visit Diagnoses [...] 08/18/2021 documented in this encounter Care Teams Staff Respiratory Therapist Relationship Specialty Start Date End Date Batsheva Lria FNP [address] [phone] PCP - General 02/19/20 07/21/22 documented as of this encounter
--- OUTSIDE RECORDS SUMMARY | 2024-05-04 01:27 | XMS_ITS | Encounter Summary ---
Author Organization [facility] Address [address] [place] [address] Care Team Providers Care Liquor Department Manager Name Role Phone Batsheva Lira JOHN Primary Care Provider [phone] Encounter Details Date Type Department Care Team (Late st Contact Info) Description 08/24/2021 Documentation Visit [address] [address] Riley Melara Social History Tobacco Use Types [...] documented in this encounter Progress Notes * Riley Melara - 08/24/2021 2315 EDT Rehabilitation Therapies Steps to Wellness: Oncology [...] related Surgery? Bilateral mastectomies 12/24/20. Had tissue online content editor surgery - unfortunately the right online content editor ruptured And had it replaced Jun 2021. [...] Info) Description 02/28/2025 13:00 EDT Office Visit [facility] Surgical Oncology - [address] [phone] Maeve Morales, 111 [facility], Level 2 [place] [phone] documented as of this encounter Visit Diagnoses Not on filedocumented in this encounter Care Teams Liquor Department Manager Relationship Specialty Start Date End Date Batsheva Lira FNP [address] [phone] PCP - General 02/19/20 07/21/22 documented as of this encounter
--- OUTSIDE RECORDS SUMMARY | 2024-05-04 01:27 | XMS_ITS | Encounter Summary ---
Author Organization [facility] Address [address] [place] [address] Care Team Providers Care Publications Production Supervisor Name Role Phone Batsheva Lira JOHN Primary Care Provider [phone] Reason for Visit * Reason Comments Post-OP Follow Up right TE Encounter Details Date Type Department Care Team (Latest Contact Info) Description 08/25/2021 8:30 EDT Post-op Visit [facility] Plastic, Reconstructive & Cosmetic Surgery - [address], [address] [place] [address] Oksana Wilkins PA-C [address] [place] [address] [place] [phone] Surgery follow-up (Primary Dx) Social History [...] 02/28/2025 13:00 EDT Office Visit [facility] Surgical Oncology - [address] [phone] Maeve Moralse DO 111 [facility], [address] [place] [phone] documented as of this encounter Visit Diagnoses [...] documented as of this encounter Care Teams Publications Production Supervisor Relationship Specialty Start Date End Date Batsheva Lira FNP [address] [phone] PCP - General 02/19/20 07/21/22 documented as of this encounter
--- OUTSIDE RECORDS SUMMARY | 2024-05-04 01:27 | XMS_ITS | Encounter Summary ---
Author Organization [facility] Address [address] [place] [address] Care Team Providers Care Family Practice Medical Doctor Name Role Phone Batsheva Lira JOHN Primary Care Provider [phone] Reason for Visit * Reason Comments Follow-up Encounter Details Date Type Department Care Team (Late st Contact Info) Description 06/23/2021 10:00 EST Office Visit [facility] Hematology & Oncology - [address] [address] Liat Honeycutt, PA-C [address] [place] [address], [address] 2 [place] [address] Malignant neoplasm of upper-inner quadrant [...] Date End Date gabapentin (NEURONTIN) 300 mg capsule 1 cap po hs, may increase to 2 caps if tolerated. 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 Follow-up HISTORY OF PRESENT ILLNESS: Austin's it intern noticed a mass in 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?She then underwent imaging and a biopsy on 07/09/20??of a 2.1 cm mass revealed a nuclear grade 3 ER negative WY negative for B2 negative ductal carcinoma.??Staging evaluation did reveal a prominent L IM lymphnode but ot herwise negative. Given her triple negative histology??she began??starting taxol/carboplatinum, followed by AC, as part of the SIKOV regimen??on July 22, 2020.?Chemo was completed on 11/27/20. Genetic testing was negative(??a 9 gene panel performed through [employer] was performed ).?Bilateral mastectomies??performed on 12/24/20 revealed [...] which she has tried melatonin and some xjia-nay-crkzxbe options. She is also having some occasional [...] history reviewed and updated. - Lives in [facility]. Has young daughter (age 9 or [...] Carcamo later this week, following replacement of charge rn last week. 4. Follow-up with Dr. Morales [...] 13:00 EDT Office Visit [facility] Surgical Oncology - [address] [phone] Maeve Morales, [address] [place] [address], [address] [place] [phone] documented as of this encounter Visit Diagnoses [...] documented as of this encounter Care Teams Family Practice Medical Doctor Relationship Specialty Start Date End Date Batsheva Lira FNP [address] [phone] PCP - General 02/19/20 07/21/22 documented as of this encounter
--- OUTSIDE RECORDS SUMMARY | 2024-05-04 01:27 | XMS_ITS | Encounter Summary ---
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, estrogen receptor negative, unspecified laterality ([facility]) Procedures GA REMOVAL TISSUE BEHAVIOR ANALYST W/O INSERTION IMPLANT GA TISSUE BEHAVIOR ANALYST PLACEMENT BREAST RECONSTRUCTION right breast tissue boom man replacement RECONSTRUCTION, BREAST, WITH TISSUE BEHAVIOR ANALYST Referral ID Status Reason Start Date Expiration Date Visits Re quested Visits Authorized [id number] 1 1 Encounter Details Date Type Department Care Team (Late st Contact Info) Description 06/18/2021 14:17 EST Anesthesia Event [facility] [place] [facility] [address] [place] [address] Jeffrey Petty MD [address] [phone] Lay Patrick CRNA [address] [address] Anesthesia Record Procedure Summary Procedure Name Responsible Anesthesiologist Anesthesia Start Time Anesthesia Stop Time exchange of right tissue boom man to new boom man (for leakage) (Right: Breast) Jeffrey Petty MD [...] mg lactated ringers (LR) infusion 700 mL Asdtjs-ylul-E solution 400 mL * Agents Name O2 N2O Air * Blood No blood administrations on file. Lines, Drains, and Airways Type Details Placement Removal IVAD Single Port 08/08/20; 1002; Bard ; Valved; Right Chest, Internal Jugular; IR/Fluoro Guided, Ultrasound Guided; 8; 1% Lido, Sub Q; 2% Chlorhexidine with IPA, 70% IPA; Power Inject; Right Atrium; [id number]; [id number] 08/08/20 1002 by Estrella Westbrook RN Peripheral [...] Briseyda Gilliam RN Non-Surgical Airway 06/18/21; 1436 (venaktesh mcconnell via procedure documentation); 06/18/21; 1548 06/18/21 1436 by Lay Patrick LEAD PRESSER 06/18/21 1548 by Lay Patrick LEAD PRESSER Wound 06/18/21; 1451; Inci vu; Right; Breast; Exchange of right tissue boom man to new boom man; N; Full thickness; 01/11/22; 0845; Healed 06/18/21 [...] [facility] Vitals Value Taken Time BP 110/48 06/18/21 [...] and Staff Patient location during procedure: OR Resident/LEAD PRESSER: Lay Patrick CRNA Performed: resident/LEAD PRESSER/AA Indications and Patient Condition Indications for airway [...] to wellness ??? Bladder incontinence ??? Cancer ([facility]) (HCC) ??? Exercise involving housework ??? [...] code) PAT Note PAT Note by Liza Kemp RN at 06/09/2021 5:10 Version 1 of [...] not instruct patient regarding COVID testing, let [facility] coordinate this -Communicate status on yellow form for DOS If patient develops any of these symptoms between now and their surgery date instruct them to call us back at [phone] to report symptoms Visitor Policy: Surgical & [...] 02/28/2025 13:00 EDT Office Visit [facility] Surgical Oncology - [address] [phone] Maeve Morales, DO [address] [address], [address] [place] [address] documented as of this encounter Procedures Procedure Name Priority Date/Time Associated Diagnosis Comments ANESTHESIA INTUBATION Routine 06/18/2021 14:24 EST documented in this encounter Results * GA AN ELECTIVE ENDOTRACHEAL AIRWAY (06/18/2021 14:24 EST) Narrative Lay Patrick CRNA - 06/18/2021 14:24 EST Lay Patrick CRNA ? 06/18/2021 14:36 Airway Date/Time: 06/18/2021 14:24 Urgency: elective Airway not difficult General Information and Staff Patient location during procedure: OR Resident/LEAD PRESSER: Lay Patrick CRNA Performed: resident/LEAD PRESSER/AA Indications and Patient Condition Indications for airway [...] 20 Number of attempts at approach: 1 us Jeffrey Petty MD ANESTHESIA ORDERABLES Fin al Result documented in this encounter Visit Diagnoses [...] (DECADRON) injection intravenous, PRN, Starting on Klaudia 2 at 1435, Until Klaudia 2 at 1606, Routine, Anesthesia Intraprocedure Given 06/18/2021 14:35 EST 4 mg dexmedeTOMIDine (PRECEDEX) injection intravenous, PRN, Starting on Klaudia 2 at 1417, Until Klaudia 2 at 1606, Routine, Anesthesia Intraprocedure Given 06/18/2021 14:34 EST 10 mcg Given 06/18/2021 14:32 EST 10 mcg Given 06/18/2021 14:25 EST 10 mcg electrolyte-A (PLASMALYTE-A) solution intravenous, FA IP EQF CONTINUOUS PRN FOR ONE STEP MEDS, Starting on Klaudia 2 at 1430, Until Klaudia 2 at 1606, Routine, Anesthesia Intraprocedure New Bag 06/18/2021 14:30 EST ePHEDrine injection 25 mg/5 mL syringe intravenous, PRN, Starting on Klaudia 2/08/04 at 1526, Until Klaudia 2 at 1606, Routine, Anesthesia Intraprocedure Given 06/18/2021 15:26 EST 5 mg fentaNYL citrate (PF) injection intravenous, PRN, Starting on Klaudia 2 at 1413, Until Klaudia 2 at 1606, Routine, Anesthesia Intraprocedure Given 06/18/2021 14:13 EST 100 mcg HYDROmorphone (DILAUDUD) 2 mg/mL injection intravenous, PRN, Starting on Klaudia 06/18/21 at 1554, Until Klaudia 2 at 1606, Routine, Anesthesia Intraprocedure Given 06/18/2021 15:54 EST 0.6 mg ketAMINE in NaCl, iso-osmotic (KETALAR) 50 mg/5 mL (10 mg/mL) IV injection intravenous, PRN, Starting on Klaudia 2 at 1422, Until Klaudia 2 at 1606, Routine, Anesthesia Intraprocedure Given 06/18/2021 14:22 EST 30 mg lactated ringers (LR) infusion at 25 mL/hr, intravenous, CONTINUOUS, Starting on Klaudia 06/18/21 at 1230, Until Klaudia 2 at 2207, Routine, Preprocedure New Bag 06/18/2021 14:17 EST lidocaine (PF) 20 mg/mL (2 %) injection intravenous, PRN, Starting on Klaudia 2 at 1420, Until Klaudia 2 at 1606, Routine, Anesthesia Intraprocedure Given 06/18/2021 14:20 EST 100 mg midazolam (PF) (VERSED) injection intravenous, PRN, Starting on Klaudia 2 at 1413, Until Lkaudia 2 at 1606, Routine, Anesthesia Intraprocedure Given 06/18/2021 [...] (ZEMURON) injection intravenous, PRN, Starting on Klaudia 2 at 1421, Until Klaudia 06/18/21 at 1606, Routine, Anesthesia Intraprocedure Given 06/18/2021 14:21 EST 50 mg sugammadex (BRIDION) injection intravenous, PRN, Starting on Klaudia 06/18/21 at 1545, Until Klaudia 06/18/21 at 1606, Routine, Anesthesia Intraprocedure Given 06/18/2021 15:45 EST 200 mg documented in this encounter Care Teams Interactive Marketing Strategist Relationship Specialty Start Date End Date Batsheva Lira FNP [address] [phone] PCP - General 02/19/20 07/21/22 documented as of this encounter
--- OUTSIDE RECORDS SUMMARY | 2024-05-04 01:27 | XMS_ITS | Encounter Summary ---
Author Organization [facility] Address [address] [place] [address] Care Team Providers Care Bit And Shank Department Supervisor Name Role Phone Batsheva Lira JOHN Primary Care Provider Encounter Details Date Type Department Care Team (Late st Contact Info) Description 06/29/2021 13:30 EST Phlebotomy Only [facility] ED [facility] 2 Phlebotomy [address] [place] [address] Marketing Database Consultant, Acc Phlebotomy Malignant neoplasm of right breast in female, estrogen receptor negative, unspecified site of breast (HCC-CMS) (HCC) ([facility]) Social History Tobacco Use Types Packs/Day Years [...] 02/28/2025 13:00 EDT Office Visit [facility] Surgical Oncology - [address] [address] Maeve Morales, [address], [facility], Level 2 [place] [phone] documented as of this encounter Procedures Procedure [...] 136 136 - 145 mmol/L 06/29/2021 14:07 [facility] Potassium 3.5 3.5 - 5.0 mmol/L 06/29/2021 14:07 [facility] Chloride 100 96 - 110 mmol/L 06/29/2021 14:07 [facility] CO2 Total 25 22 - 32 mmol/L 06/29/2021 14:07 [facility] Glucose 229(H) 70 - 100 mg/dL 06/29/2021 14:07 [facility] BUN 10 10 - 26 mg/dL 06/29/2021 14:07 [facility] Creatinine 0.49(L) 0.52 - 1.04 mg/dL 06/29/2021 14:07 [facility] eGFR 118 >60 mL/min/1.7 3m2 06/29/2021 14:07 [facility] Total Protein 7.3 6.3 - 8.2 g/dL 06/29/2021 14:07 [facility] Albumin 4.5 3.4 - 4.9 g/dL 06/29/2021 14:07 [facility] Alkaline Phosphatase 250(H) 38 - 126 U/L 06/29/2021 14:07 [facility] AST 46 15 - 46 U/L 06/29/2021 14:07 [facility] ALT 53(H) <35 U/L 06/29/2021 14:07 [facility] Bilirubin, Total 0.8 <1.4 mg/dL 06/29/19 14:07 [facility] Calcium 9.1 8.5 - 10.5 mg/dL 06/29/2021 14:07 [facility] Albumin/Globulin Ratio 1.6 1.0 - 2.5 06/29/2021 14:07 [facility] Anion Gap 11 5 - 14 06/29/2021 14:07 [facility] Blood VENOUS BLOOD / Unknown Venipuncture / Unknown 06/29/2021 13:37 EST 06/29/2021 13:43 EST Queenie Conde MD CHEMISTRY & BLOOD GAS ORDERABLES Final Result Performing Organization Address City/State/[facility] Co de Phone Number [facility] [address] [place] [address] * (ABNORMAL) COMPLETE BLOOD COUNT AND DIFFERENTIAL (06/29/2021 13:37 EST) WBC 7.18 4.00 - 12.40 K/cmm 06/29/2021 14:01 [facility] RBC 4.16 3.86 - 5.04 M/cmm 06/29/2021 14:01 [facility] Hemoglobin 15.1 11.6 - 15.2 gm/dL 06/29/2021 14:01 [facility] HCT 40.9 34.9 - 44.4 % 06/29/2021 14:01 [facility] MCV 98 81 - 98 fl 06/29/2021 14:01 [facility] MCH 36.3(H) 26.7 - 33.3 pg 06/29/2021 14:01 [facility] MCHC 36.9(H) 32.1 - 35.9 gm/dL 06/29/2021 14:01 [facility] RDW-CV 14.6 <14.7 % 06/29/2021 14:01 [facility] RDW-SD 53.1(H) <50.4 fl 06/29/2021 14:01 [facility] PLT 184 141 - 377 K/cmm 06/29/2021 14:01 [facility] MPV 9.6 9.5 - 12.7 fl 06/29/2021 14:01 [facility] % Neutrophils 58.8 % 06/29/2021 14:01 [facility] % Lymphocytes 29.7 % 06/29/2021 14:01 [facility] % Monocytes 8.1 % 06/29/2021 14:01 [facility] % Eosinophils 2.4 % 06/29/2021 14:01 [facility] % Basophils 0.7 % 06/29/2021 14:01 [facility] % Immature Grans 0.3 % 06/29/19 14:01 [facility] Absolute Neutrophils 4.23 2.20 - 8.85 K/cmm 06/29/2021 14:01 [facility] Absolute Lymphocytes 2.13 1.09 - 3.30 K/cmm 06/29/2021 14:01 [facility] Absolute Monocytes 0.58 0.10 - 0.80 K/cmm 06/29/2021 14:01 [facility] Absolute Eosinophils 0.17 0.03 - 0.61 K/cmm 06/29/2021 14:01 [facility] ABS Basophils 0.05 0.01 - 0.11 K/cmm 06/29/2021 14:01 [facility] Absolute Immature Grans 0.02 0.00 - 0.06 K/cmm 06/29/2021 14:01 [facility] Type of Differential: Auto 06/29/2021 14:01 [facility] Blood VENOUS BLOOD / Unknown Venipuncture / Unknown 06/29/2021 13:37 EST 06/29/2021 13:43 EST us Queenie Conde MD PACKAGES & DNA PROBE ORDERABLES Final Result [facility] [address] [place] [address] documented in this encounter Visit Diagnoses Diagnosis Malignant neoplasm of right breast in female, estrogen receptor negative, unspecified site of breast (HCC-CMS) documented in this encounter Care Teams Bit And Shank Department Supervisor Relationship Specialty Start Date End Date Batsheva Lira FNP [address] [phone] PCP - General 02/19/20 07/21/22 documented as of this encounter
--- OUTSIDE RECORDS SUMMARY | 2024-05-04 01:27 | XMS_ITS | Encounter Summary ---
Author Organization [facility] Address [address] [place] [address] Care Team Providers Care Baseball Inspector And Repairer Name Role Phone Batsheva Lira JOHN Primary Care Provider [phone] Reason for Visit * Reason Onset Date Comments Surgery Scheduling 06/12/2021 Encounter Details Date Type Department Care Team (Late st Contact Info) Description 06/12/2021 Telephone [facility] Plastic, Reconstructive & Cosmetic Surgery - [address], [address] [place] [address] Melissa Sheldon, restuarant crew worker Scheduling Social History Tobacco Use Types Packs/Day [...] [facility] Surgical Oncology - [address] [phone] Maeve Morales, DO [address] [facility], Level [address] [place] [phone] documented as of this encounter Visit Diagnoses Not on filedocumented in this encounter Care Teams Baseball Inspector And Repairer Relationship Specialty Start Date End Date Batsheva Lira FNP [address] [phone] PCP - General 02/19/20 07/21/22 documented as of this encounter
--- OUTSIDE RECORDS SUMMARY | 2024-05-04 01:27 | XMS_ITS | Encounter Summary ---
Author Organization [facility] Address [address] [place] [address] Care Team Providers Care Cylinder Inspector And Tester Name Role Phone Batsheva Lira Primary Care Provider [phone] Pam Germain MD Unavailable [phone] Janay Duran APRN Primary Care Provider [phone] Inez Corado DO Primary Care Provid er Encounter Details Date Type Department Care Team (Late st Contact Info) Description 08/25/2021 Lab Requisition [facility] Pathology & Laboratory Medicine - [facility] [address] [place] [address] Batsheva Lira FNP [address] [place] [phone] Dysuria Social History Tobacco Use Types Packs/Day [...] 02/28/2025 13:00 EDT Office Visit [facility] Surgical Oncology - [address] [id number] Maeve Morales, [address], [facility] 2 [place] [address] documented as of this encounter Procedures Procedure Name Priority Date/Time Associated Diagnosis Comments CHLAMYDIA/N. GONORRHOEAE AMPLIFIED NUCLEIC ACID Routine 08/25/2021 13:15 EDT Dysuria documented in this encounter Results * CHLAMYDIA/N. GONORRHOEAE AMPLIFIED RNA (08/25/2021 13:15 EDT) Neisseria gonorrhoeae Result Negative Negative 08/26/2021 15:19 EDT [facility] Chlamydia trachomatis Result Negative Negative 08/26/2021 15:19 EDT [facility] Swab ENTIRE VAGINA / Unknown 08/25/2021 13:15 EDT 08/25/2021 22:28 EDT us Batsheva LOPEZ MICROBIOLOGY - GENERAL ORDERAB LES Final Result [facility] [address] [place] [address] documented in this encounter Visit Diagnoses Diagnosis Dysuria documented in this encounter Care Teams Cylinder Inspector And Tester Relationship Specialty Start Date End Date Batsheva Lira FNP [facility] [phone] PCP - General 02/19/20 07/21/22 Janay Duran APRN [address] [place] [phone] PCP - General Family Medicine - Primary Care 07/22/22 02/12/24 Inez Corado DO [address] [place] [phone] PCP - General Family Medicine - Primary Care 02/13/24 Pam Germain MD [address] [place] [phone] Medical Oncology 03/22/22 documented as of this encounter
--- OUTSIDE RECORDS SUMMARY | 2024-05-04 01:27 | XMS_ITS | Encounter Summary ---
Author Organization [facility] Address [address] [place] [address] Care Team Providers Care Legal Paraprofessional Name Role Phone Batsheva Lira JOHN Primary Care Provider [phone] Reason for Visit * Reason Comments Follow-up Encounter Details Date Type Department Care Team (Late st Contact Info) Description 08/07/2021 10:45 EDT Office Visit [facility] Hematology & Oncology - [address] [id number] Pam Germain MD [address] [place] [address], Level 2 [place] [address] Triple negative malignant neoplasm of [...] breast in female, estrogen receptor negative (HCC-CMS) [facility] Staging form: Breast, AJCC 8th Edition - Clinical: Stage IIB (cT2, cN0, cM0, G3, ER-, AK-, HER2-) - Signed by Maeve Morales DO [...] 1. Early stage TNBC Breast Cancer ?? Health Information Coder noticed a mass in her left breast in early June 2020 ?? 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 Staging [...] testing: negative (9 gene panel performed through [facility] was performed) Subjective She has been recovering [...] Reviewed. Allergies: Reviewed. Social History: Lives in [facility]. Has young daughter (age 9 or [...] smoker.?All of her mother's family lives in [facility] and [place] has no information about [...] his 90s. ??Her paternal relatives are of [place] descent. Objective Performance Status: ECOG PS 0 Physical Exam There were no vitals taken for this visit. General: Appears in no distress Skin: No rashes Pulm: No increased work of breathing on room air Lymph Node Exam: No palpable cervical lymphadenopathy. No supraclavicular lymphadenopathy. No palpable axillary lymphadenopathy. Chest Exam: S/p bilateral mastectomies with expanders in place. No masses or concerning findings. 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 metformin HCl (METFORMIN ORAL) Take by mouth. 10/14/2022 added in this encounter Care Teams Legal Paraprofessional Relationship Specialty Start Date End Date Batsheva Lira FNP [address] [phone] PCP - General 02/19/20 07/21/22 documented as of this encounter
--- OUTSIDE RECORDS SUMMARY | 2024-05-04 01:27 | XMS_ITS | Encounter Summary ---
Author Organization [facility] Address [address] [place] [address] Care Team Providers Care Staff Attorney Name Role Phone Batsheva Lira JOHN Primary Care Provider [phone] Reason for Visit * Reason Comments Follow-up Discuss surgery (kvng benitez 06/2020) Encounter Details Date Type Department Care Team (Latest Contact Info) Description 09/01/2021 9:[address] [facility] Pelvic Medicine and Reconstructive Surgery - Medical Office Building [address] [address] Mare Echeverria MD 2 [facility] Medical Office Building, [address] [phone] Mixed incontinence (Primary Dx); Cystocele, midline Social [...] Refills Last Filled Start Date End Date oxybutynin (DITROPAN XL) 5 mg CR tablet [...] follow-up. She is known to me through [facility] and I have seen her in [...] be rebooked. Patient had undergone urodynamics through [facility] which showed severe urinary stress incontinence. [...] Description 02/28/2025 13:[address] [facility] Surgical Oncology - [address] [address] Maeve Morales, DO 111 [facility] 2 [place] [address] documented as of this encounter Visit Diagnoses Diagnosis Mixed incontinence- Primary Mixed incontinence urge and stress (male)(female) Cystocele, midline documented in this encounter Care Teams Staff Attorney Relationship Specialty Start Date End Date Batsheva Lira FNP [address] [phone] PCP - General 02/19/20 07/21/22 documented as of this encounter
--- OUTSIDE RECORDS SUMMARY | 2024-05-04 01:27 | XMS_ITS | Encounter Summary ---
Author Organization [facility] Address [address] [place] [address] Care Team Providers Care Pot Lining Supervisor Name Role Phone Batsheva Lira JOHN Primary Care Provider [phone] Reason for Visit * Reason Onset Date Comments Follow-up 06/29/2021 Encounter Details Date Type Department Care Team (Late st Contact Info) Description 06/29/2021 Telephone [facility] Cancer Center Hematology & Oncology - [address] [phone] Edinson Lorenzana, DRAFTER CIVIL (CAD) Follow-up Social History Tobacco Use Types Packs/Day [...] Note: Reason for Call: [facility] informed me that the pt has already [...] [facility] - [place] [phone] Maeve Morales, DO 111 [facility], [facility], Level 2 [place] [address] documented as of this encounter Visit Diagnoses Not on filedocumented in this encounter Care Teams Pot Lining Supervisor Relationship Specialty Start Date End Date Batsheva Lira FNP [address] [phone] PCP - General 02/19/20 07/21/22 documented as of this encounter
--- OUTSIDE RECORDS SUMMARY | 2024-05-04 01:27 | XMS_ITS | Encounter Summary ---
Author Organization [facility] Address [address] [place] [address] Care Team Providers Care Choral Director Name Role Phone Batsheva Lira JOHN Primary Care Provider [phone] Encounter Details Date Type Department Care Team (Late st Contact Info) Description 07/17/2021 Specialty Pharmacy [facility] [address] [place] [address] Petros Vega, [facility] Social History Tobacco Use Types Packs/Day [...] 02/28/2025 13:00 EDT Office Visit [facility] Surgical Oncology - [address] [address] Maeve Morales, [address], Level [address] [place] [phone] documented as of this encounter Visit Diagnoses Not on filedocumented in this encounter Care Teams Choral Director Relationship Specialty Start Date End Date Batsheva Lira FNP [address] [phone] PCP - General 02/19/20 07/21/22 documented as of this encounter
--- OUTSIDE RECORDS SUMMARY | 2024-05-04 01:27 | XMS_ITS | Encounter Summary ---
Author Organization [facility] Address [address] [place] [address] Care Team Providers Care Metal Washing Machine Operator Name Role Phone Batsheva Lira JOHN Primary Care Provider [phone] Encounter Details Date Type Department Care Team (Late st Contact Info) Description 06/26/2021 Specialty Pharmacy [facility] [address] [place] [address] Petros Vega, [facility] Social History Tobacco Use Types Packs/Day Years [...] 02/28/2025 13:00 EDT Office Visit [facility] Surgical Oncology - [address] [address] Maeve Morales, [address], Level [address] [place] [phone] documented as of this encounter Visit Diagnoses Not on filedocumented in this encounter Care Teams Metal Washing Machine Operator Relationship Specialty Start Date End Date Batsheva Lira FNP [address] [phone] PCP - General 02/19/20 07/21/22 documented as of this encounter
--- OUTSIDE RECORDS SUMMARY | 2024-05-04 01:27 | XMS_ITS | Encounter Summary ---
Author Organization [facility] Address [address] [place] [address] Care Team Providers Care Cissp Name Role Phone Batsheva Lira JOHN Primary Care Provider [phone] Reason for Visit * Reason Onset Date Comments Other 06/18/2021 Encounter Details Date Type Department Care Team (Late st Contact Info) Description 06/18/2021 Telephone [facility] Plastic, Reconstructive & Cosmetic Surgery - [address], [address] [place] [address] Juanito Carcamo MD [address] [place] [phone] Other Social History Tobacco Use Types [...] RN - 06/18/2021 1107 EST File # [id number]. [facility] is aware. KATIA BROWN RN * Telephone Encounter - Mary Stanton - 06/18/2021 1032 EST Looking for mentor file # for return explant kit documented in this encounter Plan of Treatment Upcoming Encounters Date Type Department Care Team (Late st Contact Info) Description 02/28/2025 13:00 EDT Office Visit [facility] Surgical Oncology - [address] [address] Maeve Morales, DO 111 [facility], Level 2 [place] [phone] documented as of this encounter Visit Diagnoses Not on filedocumented in this encounter Care Teams Cissp Relationship Specialty Start Date End Date Batsheva Lira FNP [address] [phone] PCP - General 02/19/20 07/21/22 documented as of this encounter
--- OUTSIDE RECORDS SUMMARY | 2024-05-04 01:27 | XMS_ITS | Encounter Summary ---
Author Organization [facility] Address [address] [place] [address] Care Team Providers Care Safe Expert Name Role Phone Batsheva Lira JOHN Primary Care Provider Pam Germain MD Unavailable [phone] Janay Duran INSURANCE BILLING CLERK Primary Care Provider [phone] Inez Corado DO Primary Care Provid er Encounter Details Date Type Department Care Team (Late st Contact Info) Description 08/06/2021 Specialty Pharmacy [facility] - [place] [address] [place], [place] [phone] Petros Vega, [facility] Social History Tobacco Use Types Packs/Day Years [...] Description 02/28/2025 13:00 EDT Office Visit [facility] Surgical Oncology - [address] [address] aMeve Morales, DO [address] [place] [address], Level [address] [place] [phone] documented as of this encounter Visit Diagnoses Not on filedocumented in this encounter Care Teams Safe Expert Relationship Specialty Start Date End Date Batsheva Lira FNP [address] [phone] PCP - General 02/19/20 07/21/22 Janay Duran APRN [address] [place] [address], [facility] 2 [place] [phone] PCP - General Family Medicine - Primary Care 07/22/22 02/12/24 Inez Corado DO [address] [place] [phone] PCP - General Family Medicine - Primary Care 02/13/24 Pam Germain MD [address] [place] [address], [facility] 2 [place] [phone] Medical Oncology 03/22/22 documented as of this encounter
--- OUTSIDE RECORDS SUMMARY | 2024-05-04 01:27 | XMS_ITS | Encounter Summary ---
Author Organization [facility] Address [address] [place] [address] Care Team Providers Care Laboratory Apparatus Glass Blower Name Role Phone Batsheva Lira JOHN Primary Care Provider [phone] Reason for Visit * Reason Comments Post-OP Follow Up 06/18/21-right TE Encounter Details Date Type Department Care Team (Latest Contact Info) Description 06/25/2021 16:15 EST Post-op Visit [facility] Plastic, Reconstructive & Cosmetic Surgery - [address], [address] [place] [address] Juanito Carcamo MD [address] [place] [phone] Surgery follow-up (Primary Dx) Social History [...] daily for 7 days. 28 capsule 06/25/2021 2 cephalexin (KEFLEX) 500 mg capsule Take 1 capsule by mouth 4 times daily for 7 days. 28 capsule 06/25/2021 2 documented in this encounter Progress Notes * Katia Degroot RN - 06/25/2021 1615 EST Examination chaperoned by KATIA WILCOX RN. Prescription for Keflex 500mg 1 capsule QID for [facility] KATIA WILCOX RN * Juanito Carcamo MD FACS - 06/25/2021 1615 EST [place] follows up after the exchange of her deflated right prepectoral tissue inker machine to a new tissue inker machine on June 18, 2021. She reports that she is doing well. Her incision is healing nicely.Her tapes were changed. We discussed postoperative activity and restrictions. She is going away forsrt vacation towards the end of the month. [...] Info) Description 02/28/2025 13:00 EDT Office Visit [facility] Surgical Oncology - [address] [phone] Maeve Morales DO 111 [facility], Level [address] [place] [phone] documented as of this encounter Visit Diagnoses Diagnosis Surgery follow-up- Primary Follow-up examination, following unspecified surgery documented in this encounter Discontinued Medications Medication Sig Discontinue Reason Start Date End Da te cephalexin (KEFLEX) 500 mg capsule Take 1 capsule by mouth 4 times daily for 7 days. Reorder 06/25/2021 06/25/2021 documented as of this encounter Care Teams Laboratory Apparatus Glass Blower Relationship Specialty Start Date End Date Batsheva Lira FNP [address] [phone] PCP - General 02/19/20 07/21/22 documented as of this encounter
--- OUTSIDE RECORDS SUMMARY | 2024-05-04 01:27 | XMS_ITS | Encounter Summary ---
Author Organization [facility] Address [address] [place] [address] Care Team Providers Care Vehicle Calibration Engineer Name Role Phone SorayaBatsheva JOHN Primary Care Provider [phone] Reason for Referral * Specialty Diagnoses / Procedures [facility] Referred To Contact Oksana Wilkins PA-C Phone: tel: fax: Referral ID Status Reason Start Date Expiration Date Visits Re quested Visits Authorized Comments Please see Dr. Carcamo in 7-10 days or as scheduled. Call [phone] for questions or concerns. * Specialty Diagnoses / Procedures 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, estrogen receptor negative, unspecified laterality (HCC-CMS) Procedures AK REMOVAL TISSUE AGENCY SALES MANAGEMENT ASSISTANT W/O INSERTION IMPLANT AK TISSUE AGENCY SALES MANAGEMENT ASSISTANT PLACEMENT BREAST RECONSTRUCTION right breast tissue nursery attendant replacement RECONSTRUCTION, BREAST, WITH TISSUE AGENCY SALES MANAGEMENT ASSISTANT Referral ID Status Reason Start Date Expiration Date Visits Re quested Visits Authorized [id number] 1 1 Encounter Details Date Type Department Care Team (Latest Contact Info) Description 06/18/2021 11:28 EST - 06/18/2021 17:25 EST Hospital Encounter [facility] Main [place] [address] [place] [address] Juanito Carcamo MD [address] [place] [phone] Discharge Disposition: Home or Self Care [...] Amarilys Michaud RN documented in this encounter Discharge Instructions * [...] for 5 days. 20 capsule 01/11/2022 2 cephalexin (KEFLEX) 500 mg capsule Take 1 capsule by mouth every 6 hours for 5 days. 20 capsule 06/18/2021 2 escitalopram oxalate (LEXAPRO) 10 mg tablet Take 30 mg by mouth daily. 3 HYDROmorphone (DILAUDID) 2 mg tablet Take 1 Tablet by mouth every 4 hours as needed for Pain. Daily Max: 12 mg 20 Tablet 01/11/2022 2 HYDROmorphone (DILAUDID) 2 mg tablet Take 1-2 Tablets by mouth every 4 hours as needed for Pain. Daily Max: 24 mg 15 Tablet 06/18/2021 2 INTRAUTERINE DEVICE, IUD, INTRAUTERINE by intrauterine route. 2 documented as of this encounter Ordered Prescriptions Prescription Sig Dispense Quantity Refills Last Filled Start Date End Date cephalexin (KEFLEX) 500 mg capsule Take 1 capsule by mouth every 6 hours for 5 days. 20 capsule 06/18/2021 2 HYDROmorphone (DILAUDID) 2 mg tablet Take 1-2 Tablets by mouth every 4 hours as needed for Pain. Daily Max: 24 mg 15 Tablet 06/18/2021 2 documented in this encounter Discharge Disposition Disposition Code Departure Means Destination Home or Self [facility] documented in this encounter H&P Notes * [...] and rhythm MONTSERRAT ROGEL DO 06/18/2021 13:41 Cosigned by Juanito Carcamo MD FACS at 06/21/2021 8:32 EST Source Note - Oksana Wilkins PA-C - 05/19/2021 10:15 EST SUBJECTIVE: Austin Squires returns in follow up from bilateral tissue nursery attendant reconstruction with allograft of breasts after mastectomy [...] a developing fetus ?? It is a [facility] Policy to test all females who are [...] Operative Note Date: 06/18/2021 Location: [facility] [place] Name: Austin Squires, : 1975, PREOPERATIVE DIAGNOSIS: (1) Deflated right prepectoral nursery attendant POSTOPERATIVE DIAGNOSIS: (1) Deflated right prepectoral nursery attendant PROCEDURE : 1.Right Prepectoral Tissue Jawbone Puller exchange after nursery attendant deflation. SURGEON: Juanito Carcamo MD FACS - Primary Oksana Wilkins PA-C - Assisting Montserrat Rogel DO - Resident - Assisting Physician Workers' Compensation Commissioner Attestation: Ms. Wilkins was a necessary and integral participant in the case and present for the entirety of the case. She served to provide aid in exposure, hemostasis, closure and other intraoperative technical functions that helped me carry out a safe operation with optimal results for the patient. As there is no plastic surgery training program at the [facility], no qualified resident was available to assist. ANESTHESIA: General endotracheal INDICATIONS: Please see office dictation. Briefly, Austin Squires is a 45 y.o. female who is s/p skin sparing mastectomy and nursery attendant and allograft based breast reconstruction bilaterally. She has a sudden failure of the right nursery attendant that will not inflate even temporarily with fills. Risks and benefits of nursery attendant exchange were thoroughly discussed with the patient [...] sampled and sent for culture. The ruptured nursery attendant was removed. A seam was seen to [...] tab was then secured. The 750 cc [place] Art[place]ra nursery attendant was then accessed and filled using a [...] Breast Cancer Procedure(s): 1. Replacement of Tissue nursery attendant (600 cc filled to 350 cc) Findings: [...] Info) Description 02/28/2025 13:00 EDT Office Visit [facility] Surgical Oncology - [address] [id number] Maeve Morales, [address] [place] [address], 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, estrogen receptor negative, unspecified laterality (HCC-CMS) (HCC) (HCC-CMS) Special Needs SDC- 150H x2 documented in this encounter Results * IMPLANT RECORD - SCANNED (06/24/2021 11:47 EST) 06/24/2021 11:4 7 EST us Scan 2 Technology Architect PROCEDURE/MINOR SURGICAL OR DERABLES Final Result * IMPLANT RECORD - SCANNED (06/22/2021 11:01 EST) 06/22/2021 11:0 1 EST us Scan 2 Technology Architect PROCEDURE/MINOR SURGICAL OR DERABLES Final Result * SURGICAL PATHOLOGY (06/18/2021 15:01 EST) Note to Patient The following pathology results have been interpreted by your pathologist and may be available to you before your health provider has had the opportunity to review them. Please allow time for your provider to receive these results and explore management options, if applicable. 06/23/2021 10:21 [facility] Final Diagnosis A. SKIN, RIGHT MASTECTOMY SCAR, EXCISION: - Benign skin and subcutaneous tissue with scar. 06/23/2021 10:21 [facility] Attestation There was significant resident/fellow involvement in the diagnostic evaluation of this case. By the signature below, the attending physician certifies that they have personally conducted a gross and/or microscopic examination of the described specimens and rendered or confirmed the above diagnosis. 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 [...] of fat necrosis but without gross lesions. Tile Classifier sections are submitted in A1. SOCORRO BOWENS(ASCP) 06/19/2021 8:58 06/23/2021 10:21 [facility] Resident/Chris w: Ang Allen MD 06/23/2021 10:21 [facility] Performing Lab [facility] 06/23/2021 10:21 [facility] Scanned Images 06/23/2021 10:21 [facility] Tissue TISSUE SPECIMEN FROM SKIN / Unknown 06/18/2021 15:01 EST 06/18/2021 16:38 EST us Juanito Carcamo MD FACS PATHOLOGY ORDERABLES Final Result [facility] [address] [place] [address] * AFB CULTURE/SMEAR, OTHER (06/18/2021 15:01 EST) Organism ID No acid-fast bacilli isolated VITEK SUSCEPTIBILITY 08/14/2021 9:[address] [facility] AFB Smear No Acid Fast Bacilli Seen 08/14/2021 9:[address] [facility] Fluid ENTIRE RIGHT BREAST / Unknown 06/18/2021 15:01 EST 06/18/2021 15:29 EST us Juanito Carcamo MD FACS MICROBIOLOGY - GENER AL ORDERABLES Final Result Performing Organization Address [facility] Co de Phone Number [facility] [address] [place] [address] * (ABNORMAL) ANAEROBE CULTURE/SMEAR(INC. AEROBES), OTHER (06/18/2021 15:01 EST) Organism ID No Growth 06/23/2021 10:[address] [facility] Smear Neutrophils Present(A) 06/23/2021 10:[address] [facility] Smear No bacteria seen(A) 06/23/2021 10:[address] [facility] Fluid ENTIRE RIGHT BREAST / Unknown 06/18/2021 15:01 EST 06/18/2021 15:29 EST us Juanito Carcamo MD FACS MICROBIOLOGY - GENER AL ORDERABLES Final Result Performing Organization Address City/[facility]/ZIP Co de Phone Number [facility] [address] [place] [address] * FUNGUS CULTURE/SMEAR (06/18/2021 15:01 EST) Organism ID No fungi isolated 07/16/2021 10:[address] [facility] Fungal Smear No Fungi Seen 07/16/2021 10:[address] [facility] Fluid ENTIRE RIGHT BREAST / Unknown 06/18/2021 15:01 EST 06/18/2021 15:29 EST us Juanito Carcamo MD FACS MICROBIOLOGY - GENER AL ORDERABLES Final Result [facility] [address] [place] [address] documented in this encounter Visit Diagnoses Not [...] on Klaudia 2 at 1230, Until Klaudia 2 at 2207, Routine, Preprocedure New Bag 06/18/2021 14:17 EST lactated ringers (LR) infusion at 75 mL/hr, intravenous, PACU CONTINUOUS, Starting on Klaudia 2 at 1615, Until Klaudia 06/18/21 at 2207, Routine, Recovery (only) Rate Documented 06/18/2021 16:08 EST 75 mL/hr naloxone (NARCAN) injection 0.2 mg 0.2 mg, intravenous, PRN, Starting on Klaudia 2 at 1552, Until Klaudia 06/18/21 at 2207, Opioid Reversal, Routine, Recovery (only) ondansetron (PF) (ZOFRAN) injection 4 mg 4 mg, intravenous, PRN, 1 dose, Starting on Klaudia 2 at 1552, Until Klaudia 06/18/21 at 2207, [...] on Klaudia 2 at 1230, Until Klaudia 06/18/21 at 2207, [...] on Klaudia 06/18/21 at 1444, Until Klaudia 06/18/21 at 1600, Intraprocedure 1444 (Given - Provid er: Juanito Carcamo MD FACS - Comment: Used to prep skin before insertion of tissue nursery attendant) sodium chloride 0.9 % irrigation (CANCELED) PRN, [...] sodium chloride 0.9 % irrigation 2 06/18/19 Diet Count Last Ordered Date First Orde red Date DISCHARGE DIET 1 06/18/2021 Nursing Count Last Ordered Date First Orde red Date ACTIVITY INSTRUCTIONS 1 06/18/2021 BATHING INSTRUCTIONS 1 06/18/2021 WOUND CARE INSTRUCTIONS 1 06/18/2021 Discharge Count Last Ordered Date First Orde red Date DISCHARGE PATIENT 1 06/18/2021 documented in this encounter Care Teams Vehicle Calibration Engineer Relationship Specialty Start Date End Date Batsheva Lira FNP [address] [phone] PCP - General 02/19/20 07/21/22 documented as of this encounter
--- OUTSIDE RECORDS SUMMARY | 2024-05-04 01:27 | XMS_ITS | Encounter Summary ---
Author Organization [facility] Address [address] [place] [address] Care Team Providers Care Technical Support Engineer Name Role Phone Batsheva Lira Primary Care Provider Pam Germain MD Unavailable [phone] Janay Duran APRN Primary Care Provider Inez Corado DO Primary Care Provid er Encounter Details Date Type Department Care Team (Late st Contact Info) Description 08/27/2021 Lab Requisition [facility] Pathology & Laboratory Medicine - [facility] [address] [place] [address] Batsheva Lira FNP [address] [place] [phone] Dysuria Social History Tobacco Use Types [...] 02/28/2025 13:00 EDT Office Visit [facility] Surgical Oncology - [address] [id number] Maeve Morales, [address], [facility] [address] [place] [address] documented as of this encounter Procedures Procedure Name Priority Date/Time Associated Diagnosis Comments ORGANISM IDENTIFICATION AND SUSCEPTIBILITY Routine 08/25/2021 12:23 EDT Dysuria documented in this encounter Results * (ABNORMAL) ORGANISM IDENTIFICATION AND SUSCEPTIBILITY (08/25/2021 12:23 EDT) Organism ID Escherichia coli(A) VITEK SUSCEPTIBILITY 08/29/2021 9:25 EDT [facility] Comment: Cefazolin susceptibility results can [...] only cefpodoxime and cephalexin are on the [facility] inpatient formulary. Organism (organism) URINE / [...] <=20 ug/mL: Susceptible Batsheva LOPEZ MICROBIOLOGY - GENERAL ORDERAB LES Final Result [facility] [address] [place] [address] documented in this encounter Visit Diagnoses Diagnosis Dysuria documented in this encounter Care Teams Technical Support Engineer Relationship Specialty Start Date End Date Batsheva Lira FNP [address] [phone] PCP - General 02/19/20 07/21/22 Janay Duran APRN [address] [place] [address] [address] [place] [phone] PCP - General Family Medicine - Primary Care 07/22/22 02/12/24 Inez Corado DO [address] [place] [phone] PCP - General Family Medicine - Primary Care 02/13/24 Pam Germain MD [address] [place] [address] [address] [place] [address] Medical Oncology 03/22/22 documented as of this encounter
--- OUTSIDE RECORDS SUMMARY | 2024-05-04 01:27 | XMS_ITS | Encounter Summary ---
Author Organization [facility] Address [address] [place] [address] Care Team Providers Care Bird Raiser Name Role Phone Batsheva Lira JOHN Primary Care Provider [phone] Encounter Details Date Type Department Care Team (Late st Contact Info) Description 08/07/2021 11:15 EDT Phlebotomy Only [facility] ED Center 2 Phlebotomy [address] [place] [address] [employer]ceiving [employer], Acc Phlebotomy Malignant neoplasm of right breast [...] Info) Description 02/28/2025 13:00 EDT Office Visit [facility] Surgical Oncology - [address] [phone] Maeve Morales, [address], [address] [place] [address] documented as of this encounter [...] 138 136 - 145 mmol/L 08/07/2021 11:02 [facility] Potassium 4.3 3.5 - 5.0 mmol/L 08/07/2021 11:02 [facility] Chloride 104 96 - 110 mmol/L 08/07/2021 11:02 [facility] CO2 Total 21(L) 22 - 32 mmol/L 08/07/2021 11:02 [facility] Glucose 167(H) 70 - 100 mg/dL 08/07/2021 11:02 [facility] BUN 11 10 - 26 mg/dL 08/07/2021 11:02 [facility] Creatinine 0.40(L) 0.52 - 1.04 mg/dL 08/07/2021 11:02 [facility] eGFR 126 >60 mL/min/1.7 3m2 08/07/2021 11:02 [facility] Total Protein 7.4 6.3 - 8.2 g/dL 08/07/2021 11:02 [facility] Albumin 4.4 3.4 - 4.9 g/dL 08/07/2021 11:02 [facility] Alkaline Phosphatase 252(H) 38 - 126 U/L 08/07/2021 11:02 [facility] AST 52(H) 15 - 46 U/L 08/07/2021 11:02 [facility] ALT 46(H) <35 U/L 08/07/2021 11:02 [facility] Bilirubin, Total 0.7 <1.4 mg/dL 08/08/19 11:02 [facility] Calcium 9.0 8.5 - 10.5 mg/dL 08/07/2021 11:02 [facility] Albumin/Globulin Ratio 1.5 1.0 - 2.5 08/07/2021 11:02 [facility] Anion Gap 13 5 - 14 08/07/2021 11:02 [facility] Blood VENOUS BLOOD / Unknown Venipuncture / Unknown 08/07/2021 10:40 EDT 08/07/2021 10:44 EDT Queenie Conde MD CHEMISTRY & BLOOD GAS ORDERABLES Final Result [facility] [address] [place] [address] * (ABNORMAL) COMPLETE BLOOD COUNT AND DIFFERENTIAL (08/07/2021 10:40 EDT) WBC 4.79 4.00 - 12.40 K/cmm 08/07/2021 10:56 [facility] RBC 3.93 3.86 - 5.04 M/cmm 08/07/2021 10:56 [facility] Hemoglobin 14.1 11.6 - 15.2 gm/dL 08/07/2021 10:56 [facility] HCT 40.3 34.9 - 44.4 % 08/07/2021 10:56 [facility] MCV 103(H) 81 - 98 fl 08/07/2021 10:56 [facility] MCH 35.9(H) 26.7 - 33.3 pg 08/07/2021 10:56 [facility] MCHC 35.0 32.1 - 35.9 gm/dL 08/07/2021 10:56 [facility] RDW-CV 13.8 <14.7 % 08/07/2021 10:56 [facility] RDW-SD 52.2(H) <50.4 fl 08/07/2021 10:56 [facility] PLT 171 141 - 377 K/cmm 08/07/2021 10:56 [facility] MPV 9.7 9.5 - 12.7 fl 08/07/2021 10:56 [facility] % Neutrophils 50.4 % 08/07/2021 10:56 [facility] % Lymphocytes 34.4 % 08/07/2021 10:56 [facility] % Monocytes 12.1 % 08/07/2021 10:56 [facility] % Eosinophils 2.1 % 08/07/2021 10:56 [facility] % Basophils 0.8 % 08/07/2021 10:56 [facility] % Immature Grans 0.2 % 08/08/19 10:56 [facility] Absolute Neutrophils 2.41 2.20 - 8.85 K/cmm 08/07/2021 10:56 [facility] Absolute Lymphocytes 1.65 1.09 - 3.30 K/cmm 08/07/2021 10:56 [facility] Absolute Monocytes 0.58 0.10 - 0.80 K/cmm 08/07/2021 10:56 [facility] Absolute Eosinophils 0.10 0.03 - 0.61 K/cmm 08/07/2021 10:56 [facility] ABS Basophils 0.04 0.01 - 0.11 K/cmm 08/07/2021 10:56 [facility] Absolute Immature Grans 0.01 0.00 - 0.06 K/cmm 08/07/2021 10:56 [facility] Type of Differential: Auto 08/07/2021 10:56 [facility] Blood VENOUS BLOOD / Unknown Venipuncture / Unknown 08/07/2021 10:40 EDT 08/07/2021 10:44 EDT us Queenie Conde MD PACKAGES & DNA PROBE ORDERABLES Final Result [facility] [address] [place] [address] documented in this encounter Visit Diagnoses Diagnosis Malignant neoplasm of right breast in female, estrogen receptor negative, unspecified site of breast (HCC-CMS) documented in this encounter Care Teams Bird Raiser Relationship Specialty Start Date End Date Batsheva Lira FNP [address] [phone] PCP - General 02/19/20 07/21/22 documented as of this encounter
--- OUTSIDE RECORDS SUMMARY | 2024-05-04 01:27 | XMS_ITS | Encounter Summary ---
Author Organization [facility] Address [address] [place] [address] Care Team Providers Care Edge Burnisher Name Role Phone Batsheva Lira JOHN Primary Care Provider [phone] Encounter Details Date Type Department Care Team (Latest Contact Info) Description 06/16/2021 10:20 EST Phlebotomy Only [facility] - Lomography [address] [place] [address] Malignant neoplasm of upper-inner quadrant of breast [...] [facility] Surgical Oncology - [address] [address] Maeve Morales, [address] [facility], [address] [place] [address] documented as of this encounter Procedures Procedure Name Priority Date/Time Associated Diagnosis Comments ZZCOVID-19 TEST [facility] PCR Today 06/16/2021 9:54 EST 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 Co de Phone Number [facility] [address] [place] [id number] * COVID-19 TESTING (06/16/2021 9:54 EST) COVID-19 rt-PCR Result Negative Negative 06/16/2021 16:31 EST [facility] Comment: This test has not [...] was performed using the gabriele SARS-CoV-2 assay ([employer] on the Gabriele 6800 System Performing Lab Gabriele 6800 [facility] 06/16/2021 16:31 EST [facility] Swab BOTH ANTERIOR NARES / Unknown Swab / Unknown 06/16/2021 9:54 EST 06/16/2021 9:54 EST Juanito Carcamo MD FACS MICROBIOLOGY - GENER AL ORDERABLES Final Result Performing Organization Address 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
--- OUTSIDE RECORDS SUMMARY | 2024-05-04 01:27 | XMS_ITS | Encounter Summary ---
Author Organization [facility] Address [address] [place] [address] Care Team Providers Care Paint Stripper Name Role Phone Batsheva Lira JOHN Primary Care Provider [phone] Reason for Visit * Reason Comments Tissue Battery Plate Assembler Fill Encounter Details Date Type Department Care Team (Latest Contact Info) Description 07/28/2021 8:30 EDT Post-op Visit [facility] Plastic, Reconstructive & Cosmetic Surgery - [address], [address] [place] [address] Anali Navas PA-C [address] [place] [address] [place] [phone] Surgery follow-up (Primary Dx) Social History [...] PA-C - 07/28/2021 0830 EDT SUBJECTIVE: Austin Squires returns in [...] 02/28/2025 13:00 EDT Office Visit [facility] Surgical Oncology - [address] [address] Maeve Morales, DO [address] [place] [address], [address] [place] [phone] documented as of this encounter Visit Diagnoses Diagnosis Surgery follow-up- Primary Follow-up examination, following unspecified surgery documented in this encounter Historical Medications * This list may reflect changes made after this encounter. traZODone (DESYREL) 50 mg tablet Take 50 mg by mouth as needed. 12/03/2022 added in this encounter Care Teams Paint Stripper Relationship Specialty Start Date End Date Batsheva Lira FNP [address] [phone] PCP - General 02/19/20 07/21/22 documented as of this encounter
--- OUTSIDE RECORDS SUMMARY | 2024-05-04 01:27 | XMS_ITS | Encounter Summary ---
Author Organization [facility] Address [address] [place] [address] Care Team Providers Care Principal Planner Name Role Phone Batsheva Lira JOHN Primary Care Provider [phone] Reason for Visit * Reason Comments Tissue Training And Development Project Leader Fill right Encounter Details Date Type Department Care Team (Latest Contact Info) Description 08/11/2021 8:30 EDT Post-op Visit [facility] Plastic, Reconstructive & Cosmetic Surgery - [address], [address] [place] [address] Anali Navas PA-C [address] [place] [address] [place] [phone] Surgery follow-up (Primary Dx) Social History [...] 02/28/2025 13:00 EDT Office Visit [facility] Surgical Oncology - [address] [address] Maeve Morales DO [address] [place] [address], [address] [place] [address] documented as of this encounter Visit Diagnoses Diagnosis Surgery follow-up- Primary Follow-up examination, following unspecified surgery documented in this encounter Care Teams Principal Planner Relationship Specialty Start Date End Date Batsheva Lira FNP [address] [address] PCP - General 02/19/20 07/21/22 documented as of this encounter
--- OUTSIDE RECORDS SUMMARY | 2024-05-04 01:27 | XMS_ITS | Encounter Summary ---
Author Organization [facility] Address [address] [place] [address] Care Team Providers Care Psychologists Name Role Phone Batsheva Lira JOHN Primary Care Provider [phone] Encounter Details Date Type Department Care Team (Late st Contact Info) Description 06/12/2021 10:15 EST Phlebotomy Only [facility] 2 Phlebotomy [address] [place] [address] Instructional Technology Instructor, Acc Phlebotomy Malignant neoplasm of right breast in female, estrogen receptor negative, unspecified site of breast (HCC-CMS) (HCC) ([facility]) Social History Tobacco Use Types [...] [facility] Surgical Oncology - [address] [address] Maeve Morales, [address] [facility], [address] 2 [place] [phone] documented as of this encounter Procedures Procedure [...] (ABNORMAL) COMPREHENSIVE METABOLIC PANEL (CMP) (06/12/2021 10:06 [facility]) Sodium 137 136 - 145 mmol/L 06/12/2021 10:33 [facility] Potassium 4.0 3.5 - 5.0 mmol/L 06/12/2021 10:33 [facility] Chloride 103 96 - 110 mmol/L 06/12/2021 10:33 [facility] CO2 Total 24 22 - 32 mmol/L 06/12/2021 10:33 [facility] Glucose 205(H) 70 - 100 mg/dL 06/12/2021 10:33 [facility] BUN 11 10 - 26 mg/dL 06/12/2021 10:33 [facility] Creatinine 0.43(L) 0.52 - 1.04 mg/dL 06/12/2021 10:33 [facility] eGFR 123 >60 mL/min/1.7 3m2 06/12/2021 10:33 [facility] Total Protein 7.6 6.3 - 8.2 g/dL 06/12/2021 10:33 [facility] Albumin 4.8 3.4 - 4.9 g/dL 06/12/2021 10:33 [facility] Alkaline Phosphatase 263(H) 38 - 126 U/L 06/12/2021 10:33 [facility] AST 45 15 - 46 U/L 06/12/2021 10:33 [facility] ALT 56(H) <35 U/L 06/12/2021 10:33 [facility] Bilirubin, Total 0.7 <1.4 mg/dL 06/12/19 10:33 [facility] Calcium 9.5 8.5 - 10.5 mg/dL 06/12/2021 10:33 [facility] Albumin/Globulin Ratio 1.7 1.0 - 2.5 06/12/2021 10:33 [facility] Anion Gap 10 8 - 16 06/12/2021 10:33 [facility] Blood VENOUS BLOOD / Unknown Venipuncture / Unknown 06/12/2021 10:06 EST 06/12/2021 10:12 EST Queenie Conde MD CHEMISTRY & BLOOD GAS ORDERABLES Final Result [facility] [address] [place] [address] * (ABNORMAL) COMPLETE BLOOD COUNT AND DIFFERENTIAL (06/12/2021 10:06 EST) WBC 7.56 4.00 - 12.40 K/cmm 06/12/2021 10:22 [facility] RBC 4.34 3.86 - 5.04 M/cmm 06/12/2021 10:22 [facility] Hemoglobin 14.6 11.6 - 15.2 gm/dL 06/12/2021 10:22 [facility] HCT 43.5 34.9 - 44.4 % 06/12/2021 10:22 [facility] MCV 100(H) 81 - 98 fl 06/12/2021 10:22 [facility] MCH 33.6(H) 26.7 - 33.3 pg 06/12/2021 10:22 [facility] MCHC 33.6 32.1 - 35.9 gm/dL 06/12/2021 10:22 [facility] RDW-CV 16.7(H) <14.7 % 06/12/2021 10:22 [facility] RDW-SD 62.4(H) <50.4 fl 06/12/2021 10:22 [facility] PLT 197 141 - 377 K/cmm 06/12/2021 10:22 [facility] MPV 9.6 9.5 - 12.7 fl 06/12/2021 10:22 [facility] % Neutrophils 64.8 % 06/12/2021 10:22 [facility] % Lymphocytes 21.8 % 06/12/2021 10:22 [facility] % Monocytes 10.4 % 06/12/2021 10:22 [facility] % Eosinophils 1.9 % 06/12/2021 10:22 [facility] % Basophils 0.7 % 06/12/2021 10:22 [facility] % Immature Grans 0.4 % 06/12/19 10:22 [facility] Absolute Neutrophils 4.90 2.20 - 8.85 K/cmm 06/12/2021 10:22 [facility] Absolute Lymphocytes 1.65 1.09 - 3.30 K/cmm 06/12/2021 10:22 [facility] Absolute Monocytes 0.79 0.10 - 0.80 K/cmm 06/12/2021 10:22 [facility] Absolute Eosinophils 0.14 0.03 - 0.61 K/cmm 06/12/2021 10:22 [facility] ABS Basophils 0.05 0.01 - 0.11 K/cmm 06/12/2021 10:22 [facility] Absolute Immature Grans 0.03 0.00 - 0.06 K/cmm 06/12/2021 10:22 [facility] Type of Differential: Auto 06/12/2021 10:22 [facility] Blood VENOUS BLOOD / Unknown Venipuncture / Unknown 06/12/2021 10:06 EST 06/12/2021 10:11 EST us Queenie Conde MD PACKAGES & DNA PROBE ORDERABLES Final Result [facility] [address] [place] [address] documented in this encounter Visit Diagnoses Diagnosis Malignant neoplasm of right breast in female, estrogen receptor negative, unspecified site of breast (HCC-CMS) documented in this encounter Care Teams Psychologists Relationship Specialty Start Date End Date Batsheva Lira FNP [address] [phone] PCP - General 02/19/20 07/21/22 documented as of this encounter
--- OUTSIDE RECORDS SUMMARY | 2024-05-04 01:27 | XMS_ITS | Encounter Summary ---
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, estrogen receptor negative, unspecified laterality ([facility]) Procedures IN REMOVAL TISSUE KILN CAR UNLOADER W/O INSERTION IMPLANT IN TISSUE KILN CAR UNLOADER PLACEMENT BREAST RECONSTRUCTION right breast tissue eligibility supervisor replacement RECONSTRUCTION, BREAST, WITH TISSUE KILN CAR UNLOADER Referral ID Status Reason Start Date Expiration Date Visits Re quested Visits Authorized [id number] 1 1 Encounter Details Date Type Department Care Team (Late st Contact Info) Description 06/18/2021 13:35 EST - 06/18/2021 16:40 EST Surgery [facility] Main [place] OR [address] [place] [address] Juanito Carcamo MD [address] [place] [address] exchange of right tissue eligibility supervisor to new eligibility supervisor (for leakage) [[id number] (CPT??)] Surgery Details Date/Time Status Location OR Service Patient Class Case Cl ass Case Type Trauma Case? 06/18/2021 1335 Posted [facility] OR [address] Outpatient Surgery H - Elective Panel 1 Procedure LRB Anes Op Region Wound Class Comments exchange of right tissue exp graham to new eligibility supervisor (for leakage) Right General Breast Class I/ Clean RECONSTRUCTION, BREAST, WITH TISSUE KILN CAR UNLOADER Right General Breast Class I/ Clean Surgeon [...] Code Departure Means Destination Home or Self Fpc documented in this encounter H&P Notes * Montserrat Rogel DO - 06/18/2021 7782 EST The preoperative history and physical which [...] returns in follow up from bilateral tissue eligibility supervisor reconstruction with allograft of breasts after mastectomy [...] a developing fetus ?? It is a [facility] Policy to test all females who are [...] 1725 EST Operative Note Date: 06/18/2021 Location: [facility] OR Name: Austin Squires, : 1975, PREOPERATIVE DIAGNOSIS: (1) Deflated right prepectoral eligibility supervisor POSTOPERATIVE DIAGNOSIS: (1) Deflated right prepectoral eligibility supervisor PROCEDURE : 1.Right Prepectoral Tissue Senior Analyst Programmer exchange after eligibility supervisor deflation. SURGEON: Juanito Carcamo MD FACS - Primary Franky, Oksana Guthrie PA-C - Assisting Montserrat Rogel DO - Resident - Assisting Physician Vehicle Monitor Technician Attestation: Ms. Wilkins was a necessary and integral participant in the case and present for the entirety of the case. She served to provide aid in exposure, hemostasis, closure and other intraoperative technical functions that helped me carry out a safe operation with optimal results for the patient. As there is no plastic surgery training program at the [facility], no qualified resident was available to assist. ANESTHESIA: General endotracheal INDICATIONS: Please see office dictation. Briefly, Austin Squires is a 45 y.o. female who is s/p skin sparing mastectomy and eligibility supervisor and allograft based breast reconstruction bilaterally. She has a sudden failure of the right eligibility supervisor that will not inflate even temporarily with fills. Risks and benefits of eligibility supervisor exchange were thoroughly discussed with the patient [...] sampled and sent for culture. The ruptured eligibility supervisor was removed. A seam was seen to [...] tab was then secured. The 750 cc [place] Artoura eligibility supervisor was then accessed and filled using a [...] Breast Cancer Procedure(s): 1. 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, estrogen receptor negative, unspecified laterality (HCC-CMS) (HCC) (HCC-CMS) Special Needs SDC- 150H x2 REMOVAL, TISSUE KILN CAR UNLOADER(S) 06/18/2021 14:01 EST 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, estrogen receptor negative, unspecified laterality (HCC-CMS) (HCC) (HCC-CMS) Special Needs SDC- 150H x2 documented in this encounter Results * IMPLANT RECORD - SCANNED (06/24/2021 11:47 EST) 06/24/2021 11:4 7 EST us Scan 2 Product Development Manager PROCEDURE/MINOR SURGICAL OR DERABLES Final Result * IMPLANT RECORD - SCANNED (06/22/2021 11:01 EST) 06/22/2021 11:0 1 EST us Scan 2 Product Development Manager PROCEDURE/MINOR SURGICAL OR DERABLES Final Result * SURGICAL PATHOLOGY (06/18/2021 15:01 EST) Note to Patient The following pathology results have been interpreted by your pathologist and may be available to you before your health provider has had the opportunity to review them. Please allow time for your provider to receive these results and explore management options, if applicable. 06/23/2021 10:21 [facility] Final Diagnosis A. SKIN, RIGHT MASTECTOMY SCAR, EXCISION: - Benign skin and subcutaneous tissue with scar. 06/23/2021 10:21 [facility] Attestation There was significant resident/fellow involvement in the diagnostic evaluation of this case. By the signature below, the attending physician certifies that they have personally conducted a gross and/or microscopic examination of the described specimens and rendered or confirmed the above diagnosis. 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 [...] of fat necrosis but without gross lesions. Knitter Wire Mesh sections are submitted in A1. SOCORRO BOWENS(ASCP) 06/19/2021 8:58 06/23/2021 10:21 [facility] Resident/Chris w: Ang Allen MD 06/23/2021 10:21 [facility] Performing Lab [facility] 06/23/2021 10:21 [facility] Scanned Images 06/23/2021 10:21 [facility] Tissue TISSUE SPECIMEN FROM SKIN / Unknown 06/18/2021 15:01 EST 06/18/2021 16:38 EST us Juanito Carcamo MD FACS PATHOLOGY ORDERABLES Final Result [facility] [address] [place] [address] * AFB CULTURE/SMEAR, OTHER (06/18/2021 15:01 EST) Organism ID No acid-fast bacilli isolated VITEK SUSCEPTIBILITY 08/14/2021 9:40 T [facility] AFB Smear No Acid Fast Bacilli Seen 08/14/2021 9:40 [facility] Fluid ENTIRE RIGHT BREAST / Unknown 06/18/2021 15:01 EST 06/18/2021 15:29 EST us Juanito Carcamo MD FACS MICROBIOLOGY - GENER AL ORDERABLES Final Result Performing Organization Address [facility] Co de Phone Number [facility] [address] [place] [address] * (ABNORMAL) ANAEROBE CULTURE/SMEAR(INC. AEROBES), OTHER (06/18/2021 15:01 EST) Organism ID No Growth 06/23/2021 10:34 EST [facility] Smear Neutrophils Present(A) 06/23/2021 10:34 EST [facility] Smear No bacteria seen(A) 06/23/2021 10:34 EST [facility] Fluid ENTIRE RIGHT BREAST / Unknown 06/18/2021 15:01 EST 06/18/2021 15:29 EST us Juanito Carcamo MD FACS MICROBIOLOGY - GENER AL ORDERABLES Final Result Performing Organization Address [facility] Co de Phone Number [facility] [address] [place] [address] * FUNGUS CULTURE/SMEAR (06/18/2021 15:01 EST) Organism ID No fungi isolated 07/16/2021 10:59 EST [facility] Fungal Smear No Fungi Seen 07/16/2021 10:59 EST [facility] Fluid ENTIRE RIGHT BREAST / Unknown 06/18/2021 15:01 EST 06/18/2021 15:29 EST us Juanito Carcamo MD FACS MICROBIOLOGY - GENER AL ORDERABLES Final Result Performing Organization Address [facility] Co de Phone Number [facility] [address] [place] [address] documented in this encounter Visit Diagnoses Diagnosis [...] % external solution PRN, Starting on Klaudia 06/18/21 at 1444, Until Klaudia 06/18/21 at 1600, Intraprocedure Given 06/18/2021 14:44 EST 60 mL sodium chloride 0.9 % irrigation PRN, Starting on Klaudia 06/18/21 at 1443, Until Klaudia 06/18/21 at 1600, Routine, Intraprocedure Given 06/18/2021 14:43 EST 1,000 mL sodium chloride 0.9 % irrigation PRN, Starting on Klaudia 06/18/21 at 1443, Until Klaudia 06/18/21 at 1600, Routine, Intraprocedure Given 06/18/2021 14:43 [...] 1608 (Rate Documente d - Provider: Briseyda iGlliam RN) PRN Medication Order 06/16/2021 06/17/2021 06/18/2021 [...] to prep skin before insertion of tissue eligibility supervisor) sodium chloride 0.9 % irrigation (CANCELED) PRN, [...] 06/18/2021 documented in this encounter Care Teams Marketing Content Specialist Relationship Specialty Start Date End Date Batsheva Lira FNP [facility] [address] [address] PCP - General 02/19/20 07/21/22 documented as of this encounter
--- OUTSIDE RECORDS SUMMARY | 2024-05-04 01:27 | XMS_ITS | Encounter Summary ---
Author Organization [facility] Address [address] [place] [address] Care Team Providers Care Log Getter Name Role Phone Batsheva Lira JOHN Primary Care Provider Encounter Details Date Type Department Care Team (Latest Contact Info) Description 06/12/2021 10:00 EST Phlebotomy Only 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, estrogen receptor negative, unspecified laterality (HCC-CMS) (HCC) (HCC-CMS) COVID-19 TESTING Routine 06/12/2021 9:37 EST 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 [address] [place] [id number] * COVID-19 TESTING (06/12/2021 9:37 EST) COVID-19 rt-PCR Result Negative Negative 06/12/2021 18:[address] [facility] Comment: This test has [...] was performed using the gabriele SARS-CoV-2 assay ([employer] on the Gabriele 6800 System Performing Lab Gabriele 6800 [facility] 06/12/2021 18:[address] [facility] Swab BOTH ANTERIOR NARES / Unknown Swab / Unknown 06/12/2021 9:37 EST 06/12/2021 9:37 EST Juanito Carcamo MD FACS MICROBIOLOGY - GENER AL ORDERABLES Final Result Performing Organization Address [facility] de Phone Number 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
--- OUTSIDE RECORDS SUMMARY | 2024-05-04 01:27 | XMS_ITS | Encounter Summary ---
Author Organization [facility] Address [address] [place] [address] Care Team Providers Care Plant Taxonomist Name Role Phone Batsheva Lira JOHN Primary Care Provider [phone] Encounter Details Date Type Department Care Team (Late st Contact Info) Description 07/22/2021 13:15 EST Phlebotomy Only [facility] ED Center 2 Phlebotomy [address] [place] [address] Coal Carrier, Acc Phlebotomy Malignant neoplasm of right breast in female, estrogen receptor negative, unspecified site of breast (HCC-CMS) (HCC) ([facility]-CMS) Social History Tobacco Use Types [...] Visit [facility] Surgical Oncology - [address] [address] Maeve Morales, 111 [facility], [facility], Level 2 [place] [phone] documented as of this encounter Procedures Procedure [...] (ABNORMAL) COMPREHENSIVE METABOLIC PANEL (CMP) (07/22/2021 13:09 [facility] [place]) Sodium 134(L) 136 - 145 mmol/L 07/22/2021 13:28 [facility] Potassium 3.8 3.5 - 5.0 mmol/L 07/22/2021 13:28 [facility] Chloride 97 96 - 110 mmol/L 07/22/2021 13:28 [facility] CO2 Total 25 22 - 32 mmol/L 07/22/2021 13:28 [facility] Glucose 163(H) 70 - 100 mg/dL 07/22/2021 13:28 [facility] BUN 9(L) 10 - 26 mg/dL 07/22/2021 13:28 [facility] Creatinine 0.44(L) 0.52 - 1.04 mg/dL 07/22/2021 13:28 [facility] eGFR 122 >60 mL/min/1.7 3m2 07/22/2021 13:28 [facility] Total Protein 7.6 6.3 - 8.2 g/dL 07/22/2021 13:28 [facility] Albumin 4.7 3.4 - 4.9 g/dL 07/22/2021 13:28 [facility] Alkaline Phosphatase 325(H) 38 - 126 U/L 07/22/2021 13:28 [facility] AST 55(H) 15 - 46 U/L 07/22/2021 13:28 [facility] ALT 60(H) <35 U/L 07/22/2021 13:28 [facility] Bilirubin, Total 1.2 <1.4 mg/dL 07/23/19 13:28 [facility] Calcium 9.0 8.5 - 10.5 mg/dL 07/22/2021 13:28 [facility] Albumin/Globulin Ratio 1.6 1.0 - 2.5 07/22/2021 13:28 [facility] Anion Gap 12 5 - 14 07/22/2021 13:28 [facility] Blood VENOUS BLOOD / Unknown Venipuncture / Unknown 07/22/2021 13:09 EST 07/22/2021 13:11 EST Queenie Conde MD CHEMISTRY & BLOOD GAS ORDERABLES Final Result Performing Organization Address City/State/[facility] Co de Phone Number [facility] [address] [place] [address] * (ABNORMAL) COMPLETE BLOOD COUNT AND DIFFERENTIAL (07/22/2021 13:09 EST) WBC 6.62 4.00 - 12.40 K/cmm 07/22/2021 13:17 [facility] RBC 4.20 3.86 - 5.04 M/cmm 07/22/2021 13:17 [facility] Hemoglobin 15.4(H) 11.6 - 15.2 gm/dL 07/22/2021 13:17 [facility] HCT 42.0 34.9 - 44.4 % 07/22/2021 13:17 [facility] MCV 100(H) 81 - 98 fl 07/22/2021 13:17 [facility] MCH 36.7(H) 26.7 - 33.3 pg 07/22/2021 13:17 [facility] MCHC 36.7(H) 32.1 - 35.9 gm/dL 07/22/2021 13:17 [facility] RDW-CV 14.1 <14.7 % 07/22/2021 13:17 [facility] RDW-SD 51.6(H) <50.4 fl 07/22/2021 13:17 [facility] PLT 181 141 - 377 K/cmm 07/22/2021 13:17 [facility] MPV 9.5 9.5 - 12.7 fl 07/22/2021 13:17 [facility] % Neutrophils 68.3 % 07/22/2021 13:17 [facility] % Lymphocytes 17.8 % 07/22/2021 13:17 [facility] % Monocytes 11.5 % 07/22/2021 13:17 [facility] % Eosinophils 1.1 % 07/22/2021 13:17 [facility] % Basophils 1.1 % 07/22/2021 13:17 [facility] % Immature Grans 0.2 % 07/23/19 13:17 [facility] Absolute Neutrophils 4.53 2.20 - 8.85 K/cmm 07/22/2021 13:17 [facility] Absolute Lymphocytes 1.18 1.09 - 3.30 K/cmm 07/22/2021 13:17 [facility] Absolute Monocytes 0.76 0.10 - 0.80 K/cmm 07/22/2021 13:17 [facility] Absolute Eosinophils 0.07 0.03 - 0.61 K/cmm 07/22/2021 13:17 [facility] ABS Basophils 0.07 0.01 - 0.11 K/cmm 07/22/2021 13:17 [facility] Absolute Immature Grans 0.01 0.00 - 0.06 K/cmm 07/22/2021 13:17 [facility] Type of Differential: Auto 07/22/2021 13:17 [facility] Blood VENOUS BLOOD / Unknown Venipuncture / Unknown 07/22/2021 13:09 EST 07/22/2021 13:11 EST us Queenie Conde MD PACKAGES & DNA PROBE ORDERABLES Final Result [facility] [address] [place] [address] documented in this encounter Visit Diagnoses Diagnosis Malignant neoplasm of right breast in female, estrogen receptor negative, unspecified site of breast (HCC-CMS) documented in this encounter Care Teams Plant Taxonomist Relationship Specialty Start Date End Date Batsheva Lira FNP [address] [phone] PCP - General 02/19/20 07/21/22 documented as of this encounter
--- OUTSIDE RECORDS SUMMARY | 2024-05-04 01:28 | XMS_ITS | Encounter Summary ---
Author Organization [facility] Address [address] [place] [address] Care Team Providers Care Coding Compliance Auditor Name Role Phone Batsheva Lira JOHN Primary Care Provider [phone] Encounter Details Date Type Department Care Team (Late st Contact Info) Description 03/26/2021 Orders Only [facility] Hematology & Oncology - [address] [address] Liat Honeycutt PACalinC [address] [place] [address], [address] [place] [address] Malignant neoplasm of upper-inner quadrant [...] Info) Description 02/28/2025 13:00 EDT Office Visit [facility] Surgical Oncology - [address] [address] Maeve Morales, DO [address] [place] [address], [address] [place] [phone] documented as of this encounter Visit Diagnoses Diagnosis Malignant 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, estrogen receptor negative (HCC-[facility])- Primary Acute pain of right shoulder documented in this encounter Care Teams Coding Compliance Auditor Relationship Specialty Start Date End Date Batsheva Lira FNP [address] [phone] PCP - General 02/19/20 07/21/22 documented as of this encounter
--- OUTSIDE RECORDS SUMMARY | 2024-05-04 01:28 | XMS_ITS | Encounter Summary ---
Author Organization [facility] Address [address] [place] [address] Care Team Providers Care Slot Technician Name Role Phone Batsheva Lira JOHN Primary Care Provider Pam Germain MD Unavailable [phone] Janay Duran APRN Primary Care Provider [phone] Inez Corado DO Primary Care Provid er Reason for Visit * Reason Onset Date Comments Medications Refill 04/06/2021 Encounter Details Date Type Department Care Team (Late st Contact Info) Description 04/06/2021 Telephone [facility] Cancer Center Hematology & Oncology - Main [place] [address] [place], [place] [address] [place] [address] [place] [phone] Medications Refill Social History Tobacco Use [...] Refills Last Filled Start Date End Date capecitabine (XELODA) 500 mg tablet Take 4 Tablets by mouth 2 times daily. Take for 14 days, then stop for 7 days. 112 Tablet 5 04/06/2021 2 documented in this encounter Plan of Treatment Upcoming Encounters Date Type Department Care Team (Late st Contact Info) Description 02/28/2025 13:00 EDT Office Visit [facility] Surgical Oncology - [address] [address] Maeve Morales, DO [address] [facility], Level [address] [place] [address] documented as of this encounter Visit Diagnoses Not on filedocumented in this encounter Discontinued Medications Medication Sig Discontinue Reason Start Date End Da te capecitabine (XELODA) 500 mg tablet Take 4 Tablets by mouth 2 times daily. Take for 14 days, then stop for 7 days. Reorder 02/06/2021 04/06/2021 documented as of this encounter Care Teams Slot Technician Relationship Specialty Start Date End Date Batsheva Lira FNP [address] [phone] PCP - General 02/19/20 07/21/22 Janay Duran APRN [address] [place] [phone] PCP - General Family Medicine - Primary Care 07/22/22 02/12/24 Inez Corado DO [address] [place] [phone] PCP - General Family Medicine - Primary Care 02/13/24 Pam Germain MD 111 [facility] 2 [place] [phone] Medical Oncology 03/22/22 documented as of this encounter
--- OUTSIDE RECORDS SUMMARY | 2024-05-04 01:28 | XMS_ITS | Encounter Summary ---
Author Organization [facility] Address [address] [place] [address] Care Team Providers Care Paster Supervisor Name Role Phone Batsheva Lira JOHN Primary Care Provider [phone] Encounter Details Date Type Department Care Team (Late st Contact Info) Description 03/13/2021 Specialty Pharmacy [facility] - [facility] [address] [place], [place] [address] Petros Vega, [facility] Social History Tobacco Use Types [...] No 12/24/2020 17:15 Amarilys Michaud, RN * Are you blind or do [...] Info) Description 02/28/2025 13:00 EDT Office Visit [facility] Surgical Oncology - [address] [address] Maeve Morales, 111 [facility], Level [address] [place] [phone] documented as of this encounter Visit Diagnoses Not on filedocumented in this encounter Care Teams Paster Supervisor Relationship Specialty Start Date End Date Batsheva Lira FNP [address] [phone] PCP - General 02/19/20 07/21/22 documented as of this encounter
--- OUTSIDE RECORDS SUMMARY | 2024-05-04 01:28 | XMS_ITS | Encounter Summary ---
Author Organization [facility] Address [address] [place] [address] Care Team Providers Care [facility] Name Role Phone Batsheva Lira JOHN Primary Care Provider [phone] Reason for Visit * Reason Onset Date Comments Other 03/11/2021 Encounter Details Date Type Department Care Team (Late st Contact Info) Description 03/11/2021 Telephone [facility] Cancer Center Hematology & Oncology - [facility] [address] [place], [place] [phone] Vivian Lackey CCLS Other Social History Tobacco [...] Encounter - Vivian Lackey CCLS - 03/11/2021 2734 EDT JORDAN called Austin to share information about Zoom session with her daughter, Lan, and to discuss plans for continuing support. CATHLEENS invited Austin to call back. JORDAN Melendez [facility] II documented in this encounter Plan of Treatment Upcoming Encounters Date Type Department Care Team (Late st Contact Info) Description 02/28/2025 13:00 EDT Office Visit [facility] Surgical Oncology - [address] [phone] Maeve Morales, DO 111 [facility], [facility], Level [address] [place] [address] documented as of this encounter Visit Diagnoses Not on filedocumented in this encounter Care Teams [facility] Relationship Specialty Start Date End Date Batsheva Lira FNP [address] [phone] PCP - General 02/19/20 07/21/22 documented as of this encounter
--- OUTSIDE RECORDS SUMMARY | 2024-05-04 01:28 | XMS_ITS | Encounter Summary ---
Author Organization [facility] Address [address] [place] [address] Care Team Providers Care Correspondence Renew Clerk Name Role Phone Batsheva Lira JOHN Primary Care Provider [phone] Encounter Details Date Type Department Care Team (Latest Contact Info) Description 06/09/2021 5:10 EST - 06/09/2021 23:59 EST Hospital Encounter [facility] Pre-Surgical Testing [address] [place], [place] [address] Discharge Disposition: Home or Self Care Social [...] route. 2 documented as of this encounter Discharge Disposition Disposition Code Departure Means Destination Home or Self Care documented in this encounter OR Notes * Preprocedure Instructions - Liza Kemp RN - 06/09/2021 0510 EST Austin Squires has been instructed as follows regarding medication [...] not instruct patient regarding COVID testing, let [facility] coordinate this -Communicate status on yellow form for DOS If patient develops any of these symptoms between now and their surgery date instruct them to call us back at [phone] to report symptoms Visitor Policy: Surgical & [...] Info) Description 02/28/2025 13:00 EDT Office Visit [facility] Surgical Oncology - [address] [phone] Maeve Morales, 111 [facility], [facility], Level 2 [place] [address] documented as of this encounter Visit Diagnoses Not on filedocumented in this encounter Care Teams Correspondence Renew Clerk Relationship Specialty Start Date End Date Batsheva Lira FNP [address] [phone] PCP - General 02/19/20 07/21/22 documented as of this encounter
--- OUTSIDE RECORDS SUMMARY | 2024-05-04 01:28 | XMS_ITS | Encounter Summary ---
Author Organization [facility] Address [address] [place] [address] Care Team Providers Care Ticket Agent Name Role Phone Batsheva Lira JOHN Primary Care Provider [phone] Reason for Visit * Reason Onset Date Comments Appointment Related 03/26/2021 Encounter Details Date Type Department Care Team (Late st Contact Info) Description 03/26/2021 Telephone [facility] Medicine [address] [address] Physical, Therapy Appointment Related Social [...] Telephone Encounter - Sera Langston - 03/26/2021 5068 EST Due to patient's shoulder pain, patient will be evaluated by Oksana Pereyra PT before beginning theSteps to Wellness program on 03/31/21. A new start date will be assigned once patient's shoulder pain has been addressed by physical therapy. documented in this encounter Plan of Treatment Upcoming Encounters Date Type Department Care Team (Late st Contact Info) Description 02/28/2025 13:00 EDT Office Visit [facility] [place] [address] Maeve Morales, DO 111 [facility], Level 2 [place] [address] documented as of this encounter Visit Diagnoses Not on filedocumented in this encounter Care Teams Ticket Agent Relationship Specialty Start Date End Date Batsheva Lira FNP [address] [phone] PCP - General 02/19/20 07/21/22 documented as of this encounter
--- OUTSIDE RECORDS SUMMARY | 2024-05-04 01:28 | XMS_ITS | Encounter Summary ---
Author Organization [facility] Address [address] [place] [address] Care Team Providers Care Souvenir Assembler Name Role Phone Batsheva Lira JOHN Primary Care Provider [phone] Reason for Visit * Reason Onset Date Comments Appointment Related 03/26/2021 Encounter Details Date Type Department Care Team (Late st Contact Info) Description 03/26/2021 Telephone [facility] Medicine [address] [address] Physical, Therapy Appointment Related Social [...] - Sera Langston - 03/26/2021 [address] [address] Telephone Intake Information for Scheduling NEW Patients for Therapy Script/referral: In EPIC Referral date: 03/26/21 Referring Provider: Prema Honeycutt PA-C Diagnosis: Shoulder pain [employer] Supervisor needed? No Primary Insurance: Medicaid ACO Secondary [...] program. Only 2 follow ups scheduled. Sera Langston 03/26/2021 documented in this encounter Plan of Treatment Upcoming Encounters Date Type Department Care Team (Late st Contact Info) Description 02/28/2025 13:00 EDT Office Visit [facility] Surgical Oncology - [address] [address] Maeve Morales, DO 111 [facility], Level [address] [place] [phone] documented as of this encounter Visit Diagnoses Not on filedocumented in this encounter Care Teams Souvenir Assembler Relationship Specialty Start Date End Date Batsheva Lira FNP [address] [phone] PCP - General 02/19/20 07/21/22 documented as of this encounter
--- OUTSIDE RECORDS SUMMARY | 2024-05-04 01:28 | XMS_ITS | Encounter Summary ---
Author Organization [facility] Address [address] [place] [address] Care Team Providers Care Hiv Nurse Name Role Phone Batsheva Lira JOHN Primary Care Provider [phone] Reason for Visit * Reason Comments Follow-up Encounter Details Date Type Department Care Team (Late st Contact Info) Description 03/26/2021 9:20 EST Office Visit [facility] Cancer Center Hematology & Oncology - [address] [address] Liat Honeycutt, PA-C [address] [place] [address], Level [address] [place] [address] Malignant neoplasm of upper-inner quadrant [...] Answer Entry Date Author No 12/24/2020 17:15 OSMANIT Amarilys Valentin RN documented in this encounter Progress Notes * Liat Honeycutt PA-C - 03/26/2021 0920 EST Austin Squires is a 45 y.o.yo female presenting in clinic today for assessment prior to ongoing capecitabine therapy, following neoadjuvant chemotherapy, given for node positive breast cancer Chief Complaint Patient presents with ??? 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 Genetic testing was negative( a 9 gene panel performed through [employer] was performed ). Bilateral mastectomies performed on [...] she first underwent a GI evaluation (Dr Diaz), with a diagnosis of non-alcoholicfatty liver disease [...] Info) Description 02/28/2025 13:00 EDT Office Visit [facility] Surgical Oncology - [address] [phone] Maeve Morales DO [address] [place] [address], [address] [place] [phone] documented as of this encounter Visit Diagnoses [...] documented as of this encounter Care Teams Hiv Nurse Relationship Specialty Start Date End Date Batsheva Lira FNP [address] [address] PCP - General 02/19/20 07/21/22 documented as of this encounter
--- OUTSIDE RECORDS SUMMARY | 2024-05-04 01:28 | XMS_ITS | Encounter Summary ---
Author Organization [facility] Address [address] [place] [address] Care Team Providers Care American Sign Language Interpreter Name Role Phone Batsheva Lira JOHN Primary Care Provider [phone] Encounter Details Date Type Department Care Team (Late st Contact Info) Description 04/13/2021 10:15 EST Phlebotomy Only [facility] 2 Phlebotomy [address] [place] [address] Bread Molder, Acc Phlebotomy Malignant neoplasm of right breast [...] 13:00 EDT Office Visit [facility] Surgical Oncology - [address] [address] Maeve Morales, [address], [address] 2 [place] [phone] documented as of this encounter Procedures Procedure [...] (ABNORMAL) COMPREHENSIVE METABOLIC PANEL (CMP) (04/13/2021 10:10 [facility]) Sodium 138 136 - 145 mmol/L 04/13/2021 10:29 [facility] Potassium 4.0 3.5 - 5.0 mmol/L 04/13/2021 10:29 [facility] Chloride 103 96 - 110 mmol/L 04/13/2021 10:29 [facility] CO2 Total 25 22 - 32 mmol/L 04/13/2021 10:29 [facility] Glucose 212(H) 70 - 100 mg/dL 04/13/2021 10:29 [facility] BUN 9(L) 10 - 26 mg/dL 04/13/2021 10:29 [facility] Creatinine 0.49(L) 0.52 - 1.04 mg/dL 04/13/2021 10:29 [facility] eGFR 118 >60 mL/min/1.7 3m2 04/13/2021 10:29 [facility] Total Protein 8.0 6.3 - 8.2 g/dL 04/13/2021 10:29 [facility] Albumin 5.0(H) 3.4 - 4.9 g/dL 04/13/2021 10:29 [facility] Alkaline Phosphatase 219(H) 38 - 126 U/L 04/13/2021 10:29 [facility] AST 73(H) 15 - 46 U/L 04/13/2021 10:29 [facility] ALT 82(H) <35 U/L 04/13/2021 10:29 [facility] Bilirubin, Total 0.8 <1.4 mg/dL 04/13/20 10:29 [facility] Calcium 9.8 8.5 - 10.5 mg/dL 04/13/2021 10:29 [facility] Albumin/Globulin Ratio 1.7 1.0 - 2.5 04/13/2021 10:29 [facility] Anion Gap 10 8 - 16 04/13/2021 10:29 [facility] Blood VENOUS BLOOD / Unknown Venipuncture / Unknown 04/13/2021 10:10 EST 04/13/2021 10:14 EST us Queenie Conde MD CHEMISTRY & BLOOD GAS ORDERABLES Final Result Performing Organization Address City/State/[facility] Co de Phone Number [facility] [address] [place] [address] * (ABNORMAL) COMPLETE BLOOD COUNT AND DIFFERENTIAL (04/13/2021 10:10 EST) WBC 6.77 4.00 - 12.40 K/cmm 04/13/2021 10:19 [facility] RBC 5.11(H) 3.86 - 5.04 M/cmm 04/13/2021 10:19 [facility] Hemoglobin 15.1 11.6 - 15.2 gm/dL 04/13/2021 10:19 [facility] HCT 44.6(H) 34.9 - 44.4 % 04/13/2021 10:19 [facility] MCV 87 81 - 98 fl 04/13/2021 10:19 [facility] MCH 29.5 26.7 - 33.3 pg 04/13/2021 10:19 [facility] MCHC 33.9 32.1 - 35.9 gm/dL 04/13/2021 10:19 [facility] RDW-CV 16.2(H) <14.7 % 04/13/2021 10:19 [facility] RDW-SD 50.2 <50.4 fl 04/13/2021 10:19 [facility] PLT 213 141 - 377 K/cmm 04/13/2021 10:19 [facility] MPV 8.9(L) 9.5 - 12.7 fl 04/13/2021 10:19 [facility] % Neutrophils 68.4 % 04/13/2021 10:19 [facility] % Lymphocytes 19.2 % 04/13/2021 10:19 [facility] % Monocytes 9.0 % 04/13/2021 10:19 [facility] % Eosinophils 2.2 % 04/13/2021 10:19 [facility] % Basophils 0.9 % 04/13/2021 10:19 [facility] % Immature Grans 0.3 % 04/13/20 10:19 [facility] Absolute Neutrophils 4.63 2.20 - 8.85 K/cmm 04/13/2021 10:19 [facility] Absolute Lymphocytes 1.30 1.09 - 3.30 K/cmm 04/13/2021 10:19 [facility] Absolute Monocytes 0.61 0.10 - 0.80 K/cmm 04/13/2021 10:19 [facility] Absolute Eosinophils 0.15 0.03 - 0.61 K/cmm 04/13/2021 10:19 [facility] ABS Basophils 0.06 0.01 - 0.11 K/cmm 04/13/2021 10:19 [facility] Absolute Immature Grans 0.02 0.00 - 0.06 K/cmm 04/13/2021 10:19 [facility] Type of Differential: Auto 04/13/2021 10:19 [facility] Blood VENOUS BLOOD / Unknown Venipuncture / Unknown 04/13/2021 10:10 EST 04/13/2021 10:14 EST us Queenie Conde MD PACKAGES & DNA PROBE ORDERABLES Final Result [facility] [address] [place] [address] documented in this encounter Visit Diagnoses Diagnosis Malignant neoplasm of right breast in female, estrogen receptor negative, unspecified site of breast (HCC-CMS) documented in this encounter Care Teams American Sign Language Interpreter Relationship Specialty Start Date End Date Batsheva Lira FNP [address] [phone] PCP - General 02/19/20 07/21/22 documented as of this encounter
--- OUTSIDE RECORDS SUMMARY | 2024-05-04 01:28 | XMS_ITS | Encounter Summary ---
Author Organization [facility] Address [address] [place] [address] Care Team Providers Care Funeral Sales Manager Name Role Phone Batsheva Lira JOHN Primary Care Provider [phone] Reason for Visit * Reason Comments Follow-up Encounter Details Date Type Department Care Team (Late st Contact Info) Description 05/05/2021 10:30 EST Office Visit [facility] Hematology & Oncology - Main [employer] [address] [place] [address] [place] [id number] [place] [phone] Malignant neoplasm of right breast in [...] breast cancer HISTORY OF PRESENT ILLNESS: 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 Genetic testing was negative( a 9 gene panel performed through [employer] was performed ). Bilateral mastectomies performed on [...] is otherwise without new??constitutional, cardiovascular, pulmonary, GI, ,TEST ENGINEER, musculoskeletal, psychiatric, neurologic, endocrine, or heme symptoms. [...] his 90s. ??Her paternal relatives are of [place] descent. Objective: BP 123/81 Pulse 93 Temp [...] time. I discussed my upcomming departure from [facility]. Our plan is to complete 6-8 cycles [...] this trial will be opening soon at [facility]. ? PLAN: 1.?? Austin will continue capecitabine [...] Visit [facility] Surgical Oncology - [address] [phone] Maeve Morales, [address] [place] [address], Level 2 [place] [phone] documented as of this encounter Visit Diagnoses Diagnosis Malignant neoplasm of right breast in female, estrogen receptor negative, unspecified site of breast ([facility] Primary documented in this encounter Care Teams Funeral Sales Manager Relationship Specialty Start Date End Date Batsheva Lira FNP [address] [phone] PCP - General 02/19/20 07/21/22 documented as of this encounter
--- OUTSIDE RECORDS SUMMARY | 2024-05-04 01:28 | XMS_ITS | Encounter Summary ---
Author Organization [facility] Address [address] [place] [address] Care Team Providers Care Hot Mill Tin Roller Name Role Phone Batsheva Lira JOHN Primary Care Provider [phone] Reason for Visit * Reason Comments Follow-up * Consult (Routine) - Order Cancelled Specialty Diagnoses / Procedures Referred By Jen gonzáles Referred To Contact Hematology and Oncology Diagnoses Malignant neoplasm of female breast, unspecified estrogen receptor status, unspecified laterality, unspecified site of breast ([facility]) Queenie Conde MD Phone: tel: fax: [facility] Hematology & Oncology [address] [address] Phone: tel: fax: Referral ID Status Reason Start Date Expiration Date Visits Requested Visits Authorized [id number] Order Cancelled Specialty Services Required 07/15/2020 1 1 Encounter Details Date Type Department Care Team (Late st Contact Info) Description 03/09/2021 14:00 EDT Telemedicine [facility] Hematology & Oncology [address] [phone] Yulissa Martines, [address], [facility] [address] [place] [phone] Adjustment reaction with anxiety (Primary Dx) Social [...] Amarilys Michaud, RN documented in this encounter Plan of Treatment Upcoming Encounters Date Type Department Care Team (Late st Contact Info) Description 02/28/2025 13:[address] [facility] Surgical Oncology - [address] [phone] Maeve Morales, DO 111 [facility], [facility], [address] [place] [phone] documented as of this encounter Visit Diagnoses Diagnosis Adjustment reaction with anxiety- Primary Adjustment disorder with anxiety documented in this encounter Care Teams Hot Mill Tin Roller Relationship Specialty Start Date End Date Batsheva Lira FNP [address] [phone] PCP - General 02/19/20 07/21/22 documented as of this encounter
--- OUTSIDE RECORDS SUMMARY | 2024-05-04 01:28 | XMS_ITS | Encounter Summary ---
Author Organization [facility] Address [address] [place] [address] Care Team Providers Care Observation Nurse Name Role Phone Batsheva Lira JOHN Primary Care Provider [phone] Encounter Details Date Type Department Care Team (Late st Contact Info) Description 03/17/2021 9:00 EDT Phlebotomy Only [facility] 2 Phlebotomy [address] [place] [address] Media Developer, Acc Phlebotomy Malignant neoplasm of right breast [...] 02/28/2025 13:00 EDT Office Visit [facility] Surgical Oncology - [address] [address] Maeve Morales, DO 111 [facility], [address] [place] [address] documented as of this encounter [...] 139 136 - 145 mmol/L 03/17/2021 9:40 [facility] Potassium 3.9 3.5 - 5.0 mEq/L 03/17/2021 9:40 [facility] Chloride 107 96 - 110 mEq/L 03/17/2021 9:40 [facility] CO2 Total 23 22 - 32 mEq/L 03/17/2021 9:40 [facility] Glucose 197(H) 70 - 100 mg/dL 03/17/2021 9:40 [facility] BUN 6(L) 10 - 26 mg/dL 03/17/2021 9:40 [facility] Creatinine 0.44(L) 0.52 - 1.04 mg/dL 03/17/2021 9:40 [facility] eGFR 122 >60 mL/min/1.7 3m2 03/17/2021 9:40 [facility] Comment:eGFR calculated mata asif CKD-EPI equation for non- Americans. Multiply eGFR by 1.16 for patients. Total Protein 7.0 6.3 - 8.2 g/dL 03/17/2021 9:40 [facility] Albumin 4.4 3.4 - 4.9 g/dL 03/17/2021 9:40 [facility] Alkaline Phosphatase 162(H) 38 - 126 U/L 03/17/2021 9:40 [facility] AST 32 15 - 46 U/L 03/17/2021 9:40 [facility] ALT 43(H) <35 U/L 03/17/2021 9:40 [facility] Bilirubin, Total <0.5 <1.4 mg/dL 03/17/20 9:40 EDT [facility] Calcium 9.6 8.5 - 10.5 mg/dL 03/17/2021 9:40 [facility] Albumin/Globulin Ratio 1.7 1.0 - 2.5 03/17/2021 9:40 EDT [facility] Anion Gap 9 8 - 16 03/17/2021 9:40 T [facility] Blood VENOUS BLOOD / Unknown Venipuncture / Unknown 03/17/2021 9:14 EDT 03/17/2021 9:19 EDT us Queenie Conde MD CHEMISTRY & BLOOD GAS ORDERABLES Final Result Performing Organization Address City/State/[facility] Co de Phone Number [facility] [address] [place] [address] * (ABNORMAL) COMPLETE BLOOD COUNT AND DIFFERENTIAL (03/17/2021 9:14 EDT) WBC 5.55 4.00 - 12.40 K/cmm 03/17/2021 9:29 [facility] RBC 4.97 3.86 - 5.04 M/cmm 03/17/2021 9:29 [facility] Hemoglobin 14.5 11.6 - 15.2 gm/dL 03/17/2021 9:29 [facility] HCT 43.6 34.9 - 44.4 % 03/17/2021 9:29 [facility] MCV 88 81 - 98 fl 03/17/2021 9:29 [facility] MCH 29.2 26.7 - 33.3 pg 03/17/2021 9:29 [facility] MCHC 33.3 32.1 - 35.9 gm/dL 03/17/2021 9:29 [facility] RDW-CV 13.3 <14.7 % 03/17/2021 9:29 [facility] RDW-SD 41.0 <50.4 fl 03/17/2021 9:29 [facility] PLT 238 141 - 377 K/cmm 03/17/2021 9:29 [facility] MPV 9.0(L) 9.5 - 12.7 fl 03/17/2021 9:29 [facility] % Neutrophils 58.6 % 03/17/2021 9:29 [facility] % Lymphocytes 24.1 % 03/17/2021 9:29 [facility] % Monocytes 9.9 % 03/17/2021 9:29 [facility] % Eosinophils 6.3 % 03/17/2021 9:29 [facility] % Basophils 1.1 % 03/17/2021 9:29 [facility] % Immature Grans 0.0 % 03/17/20 9:29 [facility] Absolute Neutrophils 3.25 2.20 - 8.85 K/cmm 03/17/2021 9:29 [facility] Absolute Lymphocytes 1.34 1.09 - 3.30 K/cmm 03/17/2021 9:29 [facility] Absolute Monocytes 0.55 0.10 - 0.80 K/cmm 03/17/2021 9:29 [facility] Absolute Eosinophils 0.35 0.03 - 0.61 K/cmm 03/17/2021 9:29 [facility] ABS Basophils 0.06 0.01 - 0.11 K/cmm 03/17/2021 9:29 [facility] Absolute Immature Grans 0.00 0.00 - 0.06 K/cmm 03/17/2021 9:29 [facility] Type of Differential: Auto 03/17/2021 9:29 [facility] Blood VENOUS BLOOD / Unknown Venipuncture / Unknown 03/17/2021 9:14 EDT 03/17/2021 9:19 EDT Queenie Conde MD PACKAGES & DNA PROBE ORDERABLES Final Result [facility] [address] [place] [address] documented in this encounter Visit Diagnoses Diagnosis Malignant neoplasm of right breast in female, estrogen receptor negative, unspecified site of breast (HCC-CMS) documented in this encounter Care Teams Observation Nurse Relationship Specialty Start Date End Date Batsheva Lira FNP [address] [phone] PCP - General 02/19/20 07/21/22 documented as of this encounter
--- OUTSIDE RECORDS SUMMARY | 2024-05-04 01:28 | XMS_ITS | Encounter Summary ---
Author Organization [facility] Address [address] [place] [address] Care Team Providers Care Layer Off Name Role Phone Batsheva Lira JOHN Primary Care Provider [phone] Encounter Details Date Type Department Care Team (Late st Contact Info) Description 05/20/2021 Documentation Visit [facility] Medicine [facility] [address] [place] [address] Oksana Pereyra, PT 3 [place] [address] Social History Tobacco Use Types [...] in this encounter Progress Notes * Oksana Pereyra, PT - 05/20/2021 1218 EST [place] [address] Physical Therapy Contact Note Austin did not [...] Description 02/28/2025 13:00 EDT Office Visit [facility] Surgical Oncology - [address] [address] Maeve Morales, [address], [address] [place] [phone] documented as of this encounter Visit Diagnoses Not on filedocumented in this encounter Care Teams Layer Off Relationship Specialty Start Date End Date Batsheva Lira FNP [address] [phone] PCP - General 02/19/20 07/21/22 documented as of this encounter
--- OUTSIDE RECORDS SUMMARY | 2024-05-04 01:28 | XMS_ITS | Encounter Summary ---
Author Organization [facility] Address [address] [place] [address] Care Team Providers Care Weight Inspector Name Role Phone Batsheva Lira JOHN Primary Care Provider [phone] Encounter Details Date Type Department Care Team (Late st Contact Info) Description 03/17/2021 Documentation Visit [facility] Hematology & Oncology - [facility] [address] [place] [address] Edinson Lorenzana LICSW Social History Tobacco Use [...] Visit [facility] Surgical Oncology - [address] [address] Maeve Morales, DO 111 [facility], [facility], Level [address] [place] [phone] documented as of this encounter Visit Diagnoses Not on filedocumented in this encounter Care Teams Weight Inspector Relationship Specialty Start Date End Date Batsheva Lira FNP [address] [phone] PCP - General 02/19/20 07/21/22 documented as of this encounter
--- OUTSIDE RECORDS SUMMARY | 2024-05-04 01:28 | XMS_ITS | Encounter Summary ---
Author Organization [facility] Address [address] [place] [address] Care Team Providers Care Advertising Dispatch Clerk Name Role Phone Batsheva Lira JOHN Primary Care Provider [phone] Reason for Visit * Reason Comments Appointment Related Encounter Details Date Type Department Care Team (Late st Contact Info) Description 04/17/2021 Telephone [facility] 3 [place] [address] Oksana Pereyra, PT 3 [place] [address] Appointment Related Social History Tobacco [...] No 12/24/2020 17:15 Amarilys Michaud, RN * Because of a physical, mental, [...] Description 02/28/2025 13:00 EDT Office Visit [facility] Surgical Oncology - [address] [address] Maeve Morales, DO 111 [facility], [facility], Level [address] [place] [phone] documented as of this encounter Visit Diagnoses Not on filedocumented in this encounter Care Teams Advertising Dispatch Clerk Relationship Specialty Start Date End Date Batsheva Lira FNP [address] [phone] PCP - General 02/19/20 07/21/22 documented as of this encounter
--- OUTSIDE RECORDS SUMMARY | 2024-05-04 01:28 | XMS_ITS | Encounter Summary ---
Author Organization [facility] Address [address] [place] [address] Care Team Providers Care Field Coordinator Name Role Phone Batsheva Lira JOHN Primary Care Provider [phone] Encounter Details Date Type Department Care Team (Late st Contact Info) Description 04/27/2021 Specialty Pharmacy [facility] - [facility] [address] [place] [address] Petros Vega, [facility] Social History Tobacco Use Types [...] Info) Description 02/28/2025 13:00 EDT Office Visit [facility] Surgical Oncology - [address] [phone] Maeve Morales, 111 [facility], Level 2 [place] [phone] documented as of this encounter Visit Diagnoses Not on filedocumented in this encounter Care Teams Field Coordinator Relationship Specialty Start Date End Date Batsheva Lira FNP [address] [place] [phone] PCP - General 02/19/20 07/21/22 documented as of this encounter
--- OUTSIDE RECORDS SUMMARY | 2024-05-04 01:28 | XMS_ITS | Encounter Summary ---
Author Organization [facility] Address [address] [place] [address] Care Team Providers Care Jazz Singer Name Role Phone Batsheva Lira JOHN Primary Care Provider [phone] Reason for Visit * Reason Comments Follow-up * Consult (Routine) - Order Cancelled Specialty Diagnoses / Procedures Referred By Jen gonzáles Referred To Contact Hematology and Oncology Diagnoses Malignant neoplasm of female breast, unspecified estrogen receptor status, unspecified laterality, unspecified site of breast ([facility]) Queenie Conde MD Phone: tel: fax: [facility] Hematology & Oncology [address] [address] Phone: tel: fax: Referral ID Status Reason Start Date Expiration Date Visits Requested Visits Authorized [id number] Order Cancelled Specialty Services Required 07/15/2020 1 1 Encounter Details Date Type Department Care Team (Late st Contact Info) Description 03/23/2021 14:00 EST Telemedicine [facility] Hematology & Oncology [address] [phone] Yulissa Martines, [address], [facility] 2 [place] [phone] Adjustment reaction with anxiety (Primary Dx) Social [...] Entry Date Author No 12/24/2020 17:15 EDT Valentin, Aver y, RN documented in this encounter Plan of Treatment Upcoming Encounters Date Type Department Care Team (Late st Contact Info) Description 02/28/2025 13:00 EDT Office Visit [facility] Surgical Oncology - [address] [address] Maeve Morales, DO 111 [facility], [facility], Level [address] [place] [phone] documented as of this encounter Visit Diagnoses Diagnosis Adjustment reaction with anxiety- Primary Adjustment disorder with anxiety documented in this encounter Care Teams Jazz Singer Relationship Specialty Start Date End Date Batsheva Lira FNP [address] [phone] PCP - General 02/19/20 07/21/22 documented as of this encounter
--- OUTSIDE RECORDS SUMMARY | 2024-05-04 01:28 | XMS_ITS | Encounter Summary ---
Author Organization [facility] Address [address] [place] [address] Care Team Providers Care Striping Machine Operator Name Role Phone Batsheva Lira JOHN Primary Care Provider [phone] Encounter Details Date Type Department Care Team (Late st Contact Info) Description 05/18/2021 Specialty Pharmacy [facility] Amb[facility] - [facility] [address] [place] [address] Petros Vega, [facility] Social History Tobacco Use Types [...] Description 02/28/2025 13:00 EDT Office Visit [facility] Surgical Oncology - [address] [address] Maeve Morales, 111 [facility], Level [address] [place] [phone] documented as of this encounter Visit Diagnoses Not on filedocumented in this encounter Care Teams Striping Machine Operator Relationship Specialty Start Date End Date Batsheva Lira FNP [address] [place] [phone] PCP - General 02/19/20 07/21/22 documented as of this encounter
--- OUTSIDE RECORDS SUMMARY | 2024-05-04 01:28 | XMS_ITS | Encounter Summary ---
Author Organization [facility] Address [address] [place] [address] Care Team Providers Care Drum Plater Name Role Phone Batsheva Lira JOHN Primary Care Provider [phone] Encounter Details Date Type Department Care Team (Late st Contact Info) Description 03/11/2021 10:15 EDT Phlebotomy Only [facility] 2 Phlebotomy [address] [place] [address] Cps Team Lead, Acc Phlebotomy Malignant neoplasm of right breast [...] Visit [facility] Surgical Oncology - [address] [address] Maeve Morales, DO 111 [facility], [address] [place] [address] documented as of this encounter [...] 139 136 - 145 mmol/L 03/11/2021 10:52 [facility] Potassium 4.2 3.5 - 5.0 mEq/L 03/11/2021 10:52 [facility] Chloride 103 96 - 110 mEq/L 03/11/2021 10:52 [facility] CO2 Total 24 22 - 32 mEq/L 03/11/2021 10:52 [facility] Glucose 177(H) 70 - 100 mg/dL 03/11/2021 10:52 [facility] BUN 8(L) 10 - 26 mg/dL 03/11/2021 10:52 [facility] Creatinine 0.43(L) 0.52 - 1.04 mg/dL 03/11/2021 10:52 [facility] eGFR 123 >60 mL/min/1.7 3m2 03/11/2021 10:52 [facility] Comment:eGFR calculated mata asif CKD-EPI equation for non- Americans. Multiply eGFR by 1.16 for patients. Total Protein 7.9 6.3 - 8.2 g/dL 03/11/2021 10:52 [facility] Albumin 4.8 3.4 - 4.9 g/dL 03/11/2021 10:52 [facility] Alkaline Phosphatase 173(H) 38 - 126 U/L 03/11/2021 10:52 [facility] AST 42 15 - 46 U/L 03/11/2021 10:52 [facility] ALT 61(H) <35 U/L 03/11/2021 10:52 [facility] Bilirubin, Total <0.5 <1.4 mg/dL 03/11/20 10:52 EDT [facility] Calcium 10.2 8.5 - 10.5 mg/dL 03/11/2021 10:52 T [facility] Albumin/Globulin Ratio 1.5 1.0 - 2.5 03/11/2021 10:52 EDT [facility] Anion Gap 12 8 - 16 03/11/2021 10:52 T [facility] Blood VENOUS BLOOD / Unknown Venipuncture / Unknown 03/11/2021 10:21 EDT 03/11/2021 10:27 EDT us Queenie Conde MD CHEMISTRY & BLOOD GAS ORDERABLES Final Result Performing Organization Address City/State/[facility] Co de Phone Number [facility] [address] [place] [address] * (ABNORMAL) COMPLETE BLOOD COUNT AND DIFFERENTIAL (03/11/2021 10:21 EDT) WBC 7.46 4.00 - 12.40 K/cmm 03/11/2021 10:42 [facility] RBC 5.06(H) 3.86 - 5.04 M/cmm 03/11/2021 10:42 [facility] Hemoglobin 15.3(H) 11.6 - 15.2 gm/dL 03/11/2021 10:42 [facility] HCT 44.2 34.9 - 44.4 % 03/11/2021 10:42 [facility] MCV 87 81 - 98 fl 03/11/2021 10:42 [facility] MCH 30.2 26.7 - 33.3 pg 03/11/2021 10:42 [facility] MCHC 34.6 32.1 - 35.9 gm/dL 03/11/2021 10:42 [facility] RDW-CV 12.8 <14.7 % 03/11/2021 10:42 [facility] RDW-SD 40.3 <50.4 fl 03/11/2021 10:42 [facility] PLT 271 141 - 377 K/cmm 03/11/2021 10:42 [facility] MPV 9.4(L) 9.5 - 12.7 fl 03/11/2021 10:42 [facility] % Neutrophils 60.2 % 03/11/2021 10:42 [facility] % Lymphocytes 24.0 % 03/11/2021 10:42 [facility] % Monocytes 9.5 % 03/11/2021 10:42 [facility] % Eosinophils 5.1 % 03/11/2021 10:42 [facility] % Basophils 0.9 % 03/11/2021 10:42 [facility] % Immature Grans 0.3 % 03/11/20 10:42 [facility] Absolute Neutrophils 4.49 2.20 - 8.85 K/cmm 03/11/2021 10:42 [facility] Absolute Lymphocytes 1.79 1.09 - 3.30 K/cmm 03/11/2021 10:42 [facility] Absolute Monocytes 0.71 0.10 - 0.80 K/cmm 03/11/2021 10:42 [facility] Absolute Eosinophils 0.38 0.03 - 0.61 K/cmm 03/11/2021 10:42 [facility] ABS Basophils 0.07 0.01 - 0.11 K/cmm 03/11/2021 10:42 [facility] Absolute Immature Grans 0.02 0.00 - 0.06 K/cmm 03/11/2021 10:42 [facility] Type of Differential: Auto 03/11/2021 10:42 [facility] Blood VENOUS BLOOD / Unknown Venipuncture / Unknown 03/11/2021 10:21 EDT 03/11/2021 10:27 EDT us Queenie Conde MD PACKAGES & DNA PROBE ORDERABLES Final Result [facility] [address] [place] [address] documented in this encounter Visit Diagnoses Diagnosis Malignant neoplasm of right breast in female, estrogen receptor negative, unspecified site of breast (HCC-CMS) documented in this encounter Care Teams Drum Plater Relationship Specialty Start Date End Date Batsheva Lira FNP [address] [phone] PCP - General 02/19/20 07/21/22 documented as of this encounter
--- OUTSIDE RECORDS SUMMARY | 2024-05-04 01:28 | XMS_ITS | Encounter Summary ---
Author Organization [facility] Address [address] [place] [address] Care Team Providers Care News Copy Editor Name Role Phone Batsheva Lira JOHN Primary Care Provider [phone] Reason for Visit * Reason Onset Date Comments Follow-up 03/19/2021 Encounter Details Date Type Department Care Team (Late st Contact Info) Description 03/19/2021 Telephone [facility] Cancer Center Hematology & Oncology - [facility] [address] [place], [place] [address] Edinson Lorenzana, INSPECTOR BALL POINTS Follow-up Social History Tobacco Use Types Packs/Day [...] Notes * Telephone Encounter - Edinson Lorenzana, [facility] - 03/19/2021 0942 EDT SW F/U Visit Presenting Issue Pt sent me the notices she received from [facility] regarding the denial for SSI and SSDI. They felt that she has completed reconstruction surgery and does not have a recurrence for cancer and therefore work. I explained to the pt that she has the option to complete the two forms to request a reconsideration ([id number] and [id number]). She has the option to consult w/ an attorney recruiter now or she could wait for thenext appeal process if needed. Pt is going to wait for the next appeal step if needed to consult galilea. I've sent her the two forms to review and we're planning a time to meet next week. Consulting provider and RN if a medical letter is reasonable to accompany these two forms to request the reconsideration. Person Centered Goals SSDI appeal Plan Waiting to schedule meeting w/ pt to complete reconsideration requests. Edinson SOLANOSW ADDENDUM 12:00 Pt and I planned to meet by zoom on at 9:30, link was sent to the pt documented in this encounter Plan of Treatment Upcoming Encounters Date Type Department Care Team (Late st Contact Info) Description 02/28/2025 13:00 EDT Office Visit [facility] Surgical Oncology - [address] [address] Maeve Morales, DO [address] [place] [address], [address] [place] [phone] documented as of this encounter Visit Diagnoses Not on filedocumented in this encounter Care Teams News Copy Editor Relationship Specialty Start Date End Date Batsheva Lira FNP [address] [phone] PCP - General 02/19/20 07/21/22 documented as of this encounter
--- OUTSIDE RECORDS SUMMARY | 2024-05-04 01:28 | XMS_ITS | Encounter Summary ---
Author Organization [facility] Address [address] [place] [address] Care Team Providers Care Geothermal System Installer Name Role Phone Batsheva Lira JOHN Primary Care Provider [phone] Reason for Visit * Reason Comments Follow-up Encounter Details Date Type Department Care Team (Late st Contact Info) Description 04/23/2021 9:00 EST Telemedicine [facility] Cancer Center Hematology & Oncology - [address] [phone] Yulissa Martines, [address], [facility] [address] [place] [address] Adjustment reaction with anxiety (Primary [...] 02/28/2025 13:00 EDT Office Visit [facility] Surgical Oncology - [address] [address] Maeve Morales, DO [address] [place] [address], [address] [place] [phone] documented as of this encounter Visit Diagnoses Diagnosis Adjustment reaction with anxiety- Primary Adjustment disorder with anxiety documented in this encounter Care Teams Geothermal System Installer Relationship Specialty Start Date End Date Batsheva Lira FNP [address] [phone] PCP - General 02/19/20 07/21/22 documented as of this encounter
--- OUTSIDE RECORDS SUMMARY | 2024-05-04 01:28 | XMS_ITS | Encounter Summary ---
Author Organization [facility] Address [address] [place] [address] Care Team Providers Care Broom Bundler Name Role Phone Batsheva Lira JOHN Primary Care Provider [phone] Reason for Visit * Reason Comments Tissue Acute Care Occupational Therapist Fill bilateral Encounter Details Date Type Department Care Team (Late st Contact Info) Description 04/28/2021 9:45 EST Office Visit [facility] Plastic, Reconstructive & Cosmetic Surgery - [address], [address] [place] [address] Juanito Carcamo MD [address] [place] [address] Surgery follow-up (Primary Dx) Social [...] documented in this encounter Progress Notes * Kaita Degroot RN - 04/28/2021 0945 EST Examination [...] system the port was accessed and the motor patrol operator filled with 75 cc of injectable saline [...] Info) Description 02/28/2025 13:00 EDT Office Visit [facility] Surgical Oncology - [address] [phone] Maeve Morales, [address] [place] [address], [address] [place] [phone] documented as of this encounter Visit Diagnoses Diagnosis Surgery follow-up- Primary Follow-up examination, following unspecified surgery documented in this encounter Care Teams Broom Bundler Relationship Specialty Start Date End Date Batsheva Lira FNP [address] [phone] PCP - General 02/19/20 07/21/22 documented as of this encounter
--- OUTSIDE RECORDS SUMMARY | 2024-05-04 01:28 | XMS_ITS | Encounter Summary ---
Author Organization [facility] Address [address] [place] [address] Care Team Providers Care Home Lighting Adviser Name Role Phone Batsheva Lira JOHN Primary Care Provider [phone] Encounter Details Date Type Department Care Team (Late st Contact Info) Description 03/23/2021 8:30 EST Phlebotomy Only [facility] Center 2 Phlebotomy [address] [place] [address] Java Development Team Lead, Acc Phlebotomy Malignant neoplasm of [...] Office Visit [facility] Surgical Oncology - [address] [phone] Maeve Morales, DO 111 [facility], [address] [place] [phone] documented as of this encounter Procedures Procedure [...] 138 136 - 145 mmol/L 03/23/2021 9:11 [facility] Potassium 4.3 3.5 - 5.0 mmol/L 03/23/2021 9:11 [facility] Chloride 102 96 - 110 mmol/L 03/23/2021 9:11 [facility] CO2 Total 24 22 - 32 mmol/L 03/23/2021 9:11 [facility] Glucose 221(H) 70 - 100 mg/dL 03/23/2021 9:11 [facility] BUN 8(L) 10 - 26 mg/dL 03/23/2021 9:11 [facility] Creatinine 0.46(L) 0.52 - 1.04 mg/dL 03/23/2021 9:11 [facility] eGFR 121 >60 mL/min/1.7 3m2 03/23/2021 9:11 [facility] Total Protein 7.4 6.3 - 8.2 g/dL 03/23/2021 9:11 [facility] Albumin 4.8 3.4 - 4.9 g/dL 03/23/2021 9:11 [facility] Alkaline Phosphatase 174(H) 38 - 126 U/L 03/23/2021 9:11 [facility] AST 53(H) 15 - 46 U/L 03/23/2021 9:11 [facility] ALT 73(H) <35 U/L 03/23/2021 9:11 [facility] Bilirubin, Total <0.5 <1.4 mg/dL 03/23/20 9:11 [facility] Calcium 9.7 8.5 - 10.5 mg/dL 03/23/2021 9:11 [facility] Albumin/Globulin Ratio 1.8 1.0 - 2.5 03/23/2021 9:11 [facility] Anion Gap 12 8 - 16 03/23/2021 9:11 [facility] Blood VENOUS BLOOD / Unknown Venipuncture / Unknown 03/23/2021 8:44 EST 03/23/2021 8:46 EST Queenie Conde MD CHEMISTRY & BLOOD GAS ORDERABLES Final Result [facility] [address] [place] [address] * (ABNORMAL) COMPLETE BLOOD COUNT AND DIFFERENTIAL (03/23/2021 8:44 EST) WBC 5.62 4.00 - 12.40 K/cmm 03/23/2021 9:25 [facility] RBC 5.09(H) 3.86 - 5.04 M/cmm 03/23/2021 9:25 [facility] Hemoglobin 14.8 11.6 - 15.2 gm/dL 03/23/2021 9:25 [facility] HCT 45.1(H) 34.9 - 44.4 % 03/23/2021 9:25 [facility] MCV 89 81 - 98 fl 03/23/2021 9:25 [facility] MCH 29.1 26.7 - 33.3 pg 03/23/2021 9:25 [facility] MCHC 32.8 32.1 - 35.9 gm/dL 03/23/2021 9:25 [facility] RDW-CV 13.9 <14.7 % 03/23/2021 9:25 [facility] RDW-SD 43.6 <50.4 fl 03/23/2021 9:25 [facility] PLT 223 141 - 377 K/cmm 03/23/2021 9:25 [facility] MPV 9.5 9.5 - 12.7 fl 03/23/2021 9:25 [facility] % Neutrophils 62.6 % 03/23/2021 9:25 [facility] % Lymphocytes 21.9 % 03/23/2021 9:25 [facility] % Monocytes 9.1 % 03/23/2021 9:25 [facility] % Eosinophils 5.3 % 03/23/2021 9:25 [facility] % Basophils 0.9 % 03/23/2021 9:25 [facility] % Immature Grans 0.2 % 03/23/20 9:25 [facility] Absolute Neutrophils 3.52 2.20 - 8.85 K/cmm 03/23/2021 9:25 [facility] Absolute Lymphocytes 1.23 1.09 - 3.30 K/cmm 03/23/2021 9:25 [facility] Absolute Monocytes 0.51 0.10 - 0.80 K/cmm 03/23/2021 9:25 [facility] Absolute Eosinophils 0.30 0.03 - 0.61 K/cmm 03/23/2021 9:25 [facility] ABS Basophils 0.05 0.01 - 0.11 K/cmm 03/23/2021 9:25 [facility] Absolute Immature Grans 0.01 0.00 - 0.06 K/cmm 03/23/2021 9:25 [facility] Type of Differential: Auto 03/23/2021 9:25 [facility] Blood VENOUS BLOOD / Unknown Venipuncture / Unknown 03/23/2021 8:44 EST 03/23/2021 8:46 EST us Queenie Conde MD PACKAGES & DNA PROBE ORDERABLES Final Result [facility] [address] [place] [address] documented in this encounter Visit Diagnoses Diagnosis Malignant neoplasm of right breast in female, estrogen receptor negative, unspecified site of breast (HCC-CMS) documented in this encounter Care Teams Home Lighting Adviser Relationship Specialty Start Date End Date Batsheva Lira FNP [address] [place] [phone] PCP - General 02/19/20 07/21/22 documented as of this encounter
--- OUTSIDE RECORDS SUMMARY | 2024-05-04 01:28 | XMS_ITS | Encounter Summary ---
Author Organization [facility] Address [address] [place] [address] Care Team Providers Care Escort Car Driver Name Role Phone Batsheva Lira JOHN Primary Care Provider [phone] Reason for Visit * Reason Comments Pre-op Exam Leaking R TE exchang e 06/15 Encounter Details Date Type Department Care Team (Late st Contact Info) Description 06/05/2021 10:15 EST Office Visit [facility] Plastic, Reconstructive & Cosmetic Surgery - [address], [address] [place] [address] Juanito Carcamo MD [address] [place] [phone] Surgery follow-up (Primary Dx) Social History [...] 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 We reviewed the risks and benefits of the surgical procedure. We discussed that I do not think this it support technician will leak but I cannot guarantee it. 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 We discussed therisks to include but not be limited to infection, bleeding, capsular contracture and possibly but hopefully not need for further surgery. Signed informed consent was obtained today. documented in this encounter Plan of Treatment Upcoming Encounters Date Type Department Care Team (Late st Contact Info) Description 02/28/2025 13:00 EDT Office Visit [facility] Surgical Oncology - [facility] [address] [place] [address] Maeve Morales, [address], [address] [place] [phone] documented as of this encounter Visit Diagnoses Diagnosis Surgery follow-up- Primary Follow-up examination, following unspecified surgery documented in this encounter Care Teams Escort Car Driver Relationship Specialty Start Date End Date Batsheva Lira FNP [address] [phone] PCP - General 02/19/20 07/21/22 documented as of this encounter
--- OUTSIDE RECORDS SUMMARY | 2024-05-04 01:28 | XMS_ITS | Encounter Summary ---
Author Organization [facility] Address [address] [place] [address] Care Team Providers Care Senior Applications Architect Name Role Phone Batsheva Lira JOHN Primary Care Provider [phone] Encounter Details Date Type Department Care Team (Late st Contact Info) Description 06/08/2021 Specialty Pharmacy [facility] Ambulatory Pharmacy - [facility] [address] [place] [address] Petros Vega, [facility] Social History Tobacco Use Types Packs/Day Years [...] Info) Description 02/28/2025 13:00 EDT Office Visit [facility] Surgical Oncology - [address] [phone] Maeve Morales, 111 [facility], Level [address] [place] [phone] documented as of this encounter Visit Diagnoses Not on filedocumented in this encounter Care Teams Senior Applications Architect Relationship Specialty Start Date End Date Batsheva Lira FNP [address] [place] [phone] PCP - General 02/19/20 07/21/22 documented as of this encounter
--- OUTSIDE RECORDS SUMMARY | 2024-05-04 01:28 | XMS_ITS | Encounter Summary ---
Author Organization [facility] Address [address] [place] [address] Care Team Providers Care Route Driver Coin Machines Name Role Phone Batsheva Lira JOHN Primary Care Provider [phone] Encounter Details Date Type Department Care Team (Late st Contact Info) Description 03/24/2021 Documentation Visit [facility] Cancer Center Hematology & Oncology - [facility] [address] [place] [address] Edinson Lorenzana LICSW Social History Tobacco Use [...] completed the request for reconsideration ([id number] and [id number]). These forms were mailed to the [facility] office and the pt was mailed a [...] Bing, MD, [facility] Surgical Oncology - [address] [address] Maeve Morales, DO 111 [facility], [address] [place] [phone] documented as of this encounter Visit Diagnoses Not on filedocumented in this encounter Care Teams Route Driver Coin Machines Relationship Specialty Start Date End Date Batsheva Lira FNP [address] [phone] PCP - General 02/19/20 07/21/22 documented as of this encounter
--- OUTSIDE RECORDS SUMMARY | 2024-05-04 01:28 | XMS_ITS | Encounter Summary ---
Author Organization [facility] Address [address] [place] [address] Care Team Providers Care Maintenance Manager Name Role Phone Batsheva Lira JOHN Primary Care Provider [phone] Reason for Visit * Reason Onset Date Comments Other 04/01/2021 Encounter Details Date Type Department Care Team (Late st Contact Info) Description 04/01/2021 Telephone [email or web address] Cancer Center Hematology & Oncology - [facility] [address] [place], [place] [phone] Vivian Lackey CCLS Other Social History Tobacco [...] Encounter - Vivian Lackey CCLS - 04/01/2021 1209 EST CATHLEENS called [place] to follow up about her [...] coping if Austin feels it is appropriate. CATHLEENS also discussed nomination of [employer]. Austin accepted nomination and will accept anytype of gift card. Child life team will mail gift card selections to Austin prior to [place]. JORDAN Melendez Machine Applicator Cementer II documented in this encounter Plan of Treatment Upcoming Encounters Date Type Department Care Team (Late st Contact Info) Description 02/28/2025 13:00 EDT Office Visit [facility] Surgical Oncology - [address] [phone] Maeve Morales, DO 111 [facility], [facility], [address] [place] [phone] documented as of this encounter Visit Diagnoses Not on filedocumented in this encounter Care Teams Maintenance Manager Relationship Specialty Start Date End Date Batsheva Lira FNP [address] [phone] PCP - General 02/19/20 07/21/22 documented as of this encounter
--- OUTSIDE RECORDS SUMMARY | 2024-05-04 01:28 | XMS_ITS | Encounter Summary ---
Author Organization [facility] Address [address] [place] [address] Care Team Providers Care Abstract Searcher Name Role Phone Batsheva Lira JOHN Primary Care Provider [phone] Reason for Visit * Reason Comments Tissue Chargemaster Specialist Fill bilateral Encounter Details Date Type Department Care Team (Late st Contact Info) Description 05/19/2021 10:15 EST Office Visit [facility] Plastic, Reconstructive & Cosmetic Surgery - [address], [address] [place] [address] Oksana Wilkins PA-C [address] [facility] [address] [place] [address] Surgery follow-up (Primary Dx) Social [...] documented in this encounter Progress Notes * Soham Patrick RN - 05/19/2021 1015 EST Office visit chaperoned by SOHAM PATRICK RN 05/19/2021 10:30 * Oksana Wilkins PA-C - 05/19/2021 1015 EST SUBJECTIVE: Austin Squires returns in follow up from bilateral tissue derrick operator reconstruction with allograft of breasts after [...] Visit [facility] Surgical Oncology - [address] [address] Maeve Morales, 111 [facility], Level 2 [place] [phone] documented as of this encounter Visit Diagnoses Diagnosis Surgery follow-up- Primary Follow-up examination, following unspecified surgery documented in this encounter Care Teams Abstract Searcher Relationship Specialty Start Date End Date Batsheva Lira FNP [address] [address] PCP - General 02/19/20 07/21/22 documented as of this encounter
--- OUTSIDE RECORDS SUMMARY | 2024-05-04 01:28 | XMS_ITS | Encounter Summary ---
Author Organization [facility] Address [address] [place] [address] Care Team Providers Care Printed Circuit Designer Name Role Phone Batsheva Lira JOHN Primary Care Provider [phone] Reason for Visit * Reason Comments Follow-up Encounter Details Date Type Department Care Team (Late st Contact Info) Description 06/11/2021 11:00 EST Telemedicine [facility] Cancer Center Hematology & Oncology - [address] [id number] Yulissa Martines, [address], [facility] 2 [place] [address] Adjustment reaction with anxiety (Primary [...] 13:00 EDT Office Visit [facility] Surgical Oncology - [address] [address] Maeve Morales, DO 111 [facility], Level 2 [place] [phone] documented as of this encounter Visit Diagnoses Diagnosis Adjustment reaction with anxiety- Primary Adjustment disorder with anxiety documented in this encounter Care Teams Printed Circuit Designer Relationship Specialty Start Date End Date Batsheva Lira FNP [address] [address] PCP - General 02/19/20 07/21/22 documented as of this encounter
--- OUTSIDE RECORDS SUMMARY | 2024-05-04 01:28 | XMS_ITS | Encounter Summary ---
Author Organization [facility] Address [address] [place] [address] Care Team Providers Care Willower Name Role Phone Batsheva Lira JOHN Primary Care Provider [phone] Reason for Visit * Reason Comments Follow-up Encounter Details Date Type Department Care Team (Late st Contact Info) Description 04/06/2021 14:00 EST Telemedicine [facility] Cancer Center Hematology & Oncology - [address] [id number] Yulissa Martines, [address], [facility] 2 [place] [address] Adjustment reaction with anxiety (Primary [...] Description 02/28/2025 13:00 EDT Office Visit [facility] Surgical Oncology - [address] [address] Maeve Morales, DO [address] [place] [address], Level 2 [place] [phone] documented as of this encounter Visit Diagnoses Diagnosis Adjustment reaction with anxiety- Primary Adjustment disorder with anxiety documented in this encounter Care Teams Willower Relationship Specialty Start Date End Date Batsheva Lira FNP [address] [address] PCP - General 02/19/20 07/21/22 documented as of this encounter
--- OUTSIDE RECORDS SUMMARY | 2024-05-04 01:28 | XMS_ITS | Encounter Summary ---
Author Organization [facility] Address [address] [place] [address] Care Team Providers Care Fruit Buying Grader Name Role Phone Batsheva Lira JOHN Primary Care Provider [phone] Reason for Visit * Reason Onset Date Comments Appointment Related 03/25/2021 Encounter Details Date Type Department Care Team (Late st Contact Info) Description 03/25/2021 Telephone [facility] Oncology Rehabilitation - [facility] [address] [place] [address] Vivian Melara Appointment Related Social [...] consult with this provider. She will contact [phone] if she needs to move out her start date due to her shoulder pain. documented in this encounter Plan of Treatment Upcoming Encounters Date Type Department Care Team (Late st Contact Info) Description 02/28/2025 13:00 EDT Office Visit [facility] Surgical Oncology - [address] [address] Maeve Morales, DO 111 [facility], Level [address] [place] [phone] documented as of this encounter Visit Diagnoses Not on filedocumented in this encounter Care Teams Fruit Buying Grader Relationship Specialty Start Date End Date Batsheva Lira FNP [facility] [address] [address] PCP - General 02/19/20 07/21/22 documented as of this encounter
--- OUTSIDE RECORDS SUMMARY | 2024-05-04 01:28 | XMS_ITS | Encounter Summary ---
Author Organization [facility] Address [address] [place] [address] Care Team Providers Care Residential Coordinator Name Role Phone Batsheva Lira JOHN Primary Care Provider [phone] Reason for Referral * Radiology Services (Routine/Next Available) - Receiving Office to Obtain Authorization Specialty Diagnoses / Procedures Referred By Jen gonzáles Referred To Contact Diagnoses Malignant neoplasm of female breast, unspecified estrogen receptor status, unspecified laterality, unspecified site of breast ([facility]) Procedures CT ANGIO ABDOMEN PELVIS Juanito Carcamo MD FACS Phone: tel: fax: [facility] Referral ID Status Reason Start Date Expiration Date Visits Requested Visits Authorized [id number] Receiving Office to Obtain Authorization 03/20/2021 1 1 Reason for Visit * Reason Comments Tissue Proposal Writer Fill Bilateral TE fill Encounter Details Date Type Department Care Team (Latest Contact Info) Description 03/20/2021 9:00 EDT Post-op Visit [facility] Plastic, Reconstructive & Cosmetic Surgery - [address], [address] [place] [address] Juanito Carcamo MD FACS [address] [place] [phone] Malignant neoplasm of female breast, unspecified estrogen receptor status, unspecified laterality, unspecified site of breast ([facility]) (HCC) ([facility]) (Primary Dx) Social History Tobacco Use Types [...] Notes * Mike Gotti RN - 03/20/2021 09 EDT Examination chaperoned by MIKE GOTTI RN. * Juanito Carcamo MD FACS - 03/20/2021 09 EDT Austin is here for fill of [...] system the port was accessed and the goat herder filled with 100 cc of injectable saline [...] Info) Description 02/28/2025 13:00 EDT Office Visit [facility] Surgical Oncology - [address] [address] Maeve Morales, DO 111 [facility], [facility], Level 2 [place] [phone] documented as of this encounter Results * [...] with the findings. us Juanito Carcamo MD [facility] IMG CT ORDERABLES Fi nal Result documented in this encounter Visit Diagnoses Diagnosis Malignant neoplasm of female breast, unspecified estrogen receptor status, unspecified laterality, unspecified site of breast (HCC-CMS)- Primary Malignant neoplasm of female breast, unspecified estrogen receptor status, unspecified laterality, unspecified site of breast (HCC-CMS) documented in this encounter Care Teams Residential Coordinator Relationship Specialty Start Date End Date Batsheva Lira FNP [address] [address] PCP - General 02/19/20 07/21/22 documented as of this encounter
--- OUTSIDE RECORDS SUMMARY | 2024-05-04 01:28 | XMS_ITS | Encounter Summary ---
Author Organization [facility] Address [address] [place] [address] Care Team Providers Care Research Food Technologist Name Role Phone Batsheva Lira JOHN Primary Care Provider [phone] Reason for Visit * Reason Onset Date Comments Other 03/12/2021 Encounter Details Date Type Department Care Team (Late st Contact Info) Description 03/12/2021 Telephone [facility] Cancer Center Hematology & Oncology - [facility] [address] [place], [place] [phone] Vivian Lackey CCLS Other Social History Tobacco [...] discuss Zoom session with her daughter Lan. CATHLEENS shared that is appears that Lan is [...] future. No additional needs at this time. JORDAN Melendez Strike On Machine Operator II documented in this encounter Plan of Treatment Upcoming Encounters Date Type Department Care Team (Late st Contact Info) Description 02/28/2025 13:00 EDT Office Visit [facility] Surgical Oncology - [address] [address] Maeve Morales, DO 111 [facility], [facility], Level 2 [place] [phone] documented as of this encounter Visit Diagnoses Not on filedocumented in this encounter Care Teams Research Food Technologist Relationship Specialty Start Date End Date Batsheva Lira FNP [address] [phone] PCP - General 02/19/20 07/21/22 documented as of this encounter
--- OUTSIDE RECORDS SUMMARY | 2024-05-04 01:28 | XMS_ITS | Encounter Summary ---
Author Organization [facility] Address [address] [place] [address] Care Team Providers Care Electrification Adviser Name Role Phone Batsheva Lira JOHN Primary Care Provider [phone] Encounter Details Date Type Department Care Team (Late st Contact Info) Description 05/01/2021 11:00 EST Phlebotomy Only [facility] ED Center 2 Phlebotomy [address] [place] [address] Psychiatric Registered Nurse, Acc Phlebotomy Malignant neoplasm of right breast in female, estrogen receptor negative, unspecified site of breast (HCC-CMS) (HCC) ([facility]) Social History Tobacco Use Types [...] 02/28/2025 13:00 EDT Office Visit [facility] Surgical Oncology - [address] [address] Maeve Morales, [address], Level 2 [place] [phone] documented as of this encounter Procedures Procedure [...] 139 136 - 145 mmol/L 05/01/2021 12:03 [facility] Potassium 4.2 3.5 - 5.0 mmol/L 05/01/2021 12:03 [facility] Chloride 104 96 - 110 mmol/L 05/01/2021 12:03 [facility] CO2 Total 25 22 - 32 mmol/L 05/01/2021 12:03 [facility] Glucose 223(H) 70 - 100 mg/dL 05/01/2021 12:03 [facility] BUN 8(L) 10 - 26 mg/dL 05/01/2021 12:03 [facility] Creatinine 0.45(L) 0.52 - 1.04 mg/dL 05/01/2021 12:03 [facility] eGFR 121 >60 mL/min/1.7 3m2 05/01/2021 12:03 [facility] Total Protein 7.4 6.3 - 8.2 g/dL 05/01/2021 12:03 [facility] Albumin 4.7 3.4 - 4.9 g/dL 05/01/2021 12:03 [facility] Alkaline Phosphatase 205(H) 38 - 126 U/L 05/01/2021 12:03 [facility] AST 45 15 - 46 U/L 05/01/2021 12:03 [facility] ALT 55(H) <35 U/L 05/01/2021 12:03 [facility] Bilirubin, Total <0.5 <1.4 mg/dL 05/01/20 12:03 [facility] Calcium 9.4 8.5 - 10.5 mg/dL 05/01/2021 12:03 [facility] Albumin/Globulin Ratio 1.7 1.0 - 2.5 05/01/2021 12:03 [facility] Anion Gap 10 8 - 16 05/01/2021 12:03 [facility] Blood VENOUS BLOOD / Unknown Venipuncture / Unknown 05/01/2021 11:39 EST 05/01/2021 11:42 EST us Queenie Conde MD CHEMISTRY & BLOOD GAS ORDERABLES Final Result [facility] [address] [place] [address] * (ABNORMAL) COMPLETE BLOOD COUNT AND DIFFERENTIAL (05/01/2021 11:39 EST) WBC 6.77 4.00 - 12.40 K/cmm 05/01/2021 11:52 [facility] RBC 4.71 3.86 - 5.04 M/cmm 05/01/2021 11:52 [facility] Hemoglobin 14.2 11.6 - 15.2 gm/dL 05/01/2021 11:52 [facility] HCT 44.4 34.9 - 44.4 % 05/01/2021 11:52 [facility] MCV 94 81 - 98 fl 05/01/2021 11:52 [facility] MCH 30.1 26.7 - 33.3 pg 05/01/2021 11:52 [facility] MCHC 32.0(L) 32.1 - 35.9 gm/dL 05/01/2021 11:52 [facility] RDW-CV 17.5(H) <14.7 % 05/01/2021 11:52 [facility] RDW-SD 58.7(H) <50.4 fl 05/01/2021 11:52 [facility] PLT 191 141 - 377 K/cmm 05/01/2021 11:52 [facility] MPV 9.2(L) 9.5 - 12.7 fl 05/01/2021 11:52 [facility] % Neutrophils 61.5 % 05/01/2021 11:52 [facility] % Lymphocytes 25.4 % 05/01/2021 11:52 [facility] % Monocytes 9.5 % 05/01/2021 11:52 [facility] % Eosinophils 2.7 % 05/01/2021 11:52 [facility] % Basophils 0.6 % 05/01/2021 11:52 [facility] % Immature Grans 0.3 % 05/01/20 11:52 [facility] Absolute Neutrophils 4.17 2.20 - 8.85 K/cmm 05/01/2021 11:52 [facility] Absolute Lymphocytes 1.72 1.09 - 3.30 K/cmm 05/01/2021 11:52 [facility] Absolute Monocytes 0.64 0.10 - 0.80 K/cmm 05/01/2021 11:52 [facility] Absolute Eosinophils 0.18 0.03 - 0.61 K/cmm 05/01/2021 11:52 [facility] ABS Basophils 0.04 0.01 - 0.11 K/cmm 05/01/2021 11:52 [facility] Absolute Immature Grans 0.02 0.00 - 0.06 K/cmm 05/01/2021 11:52 [facility] Type of Differential: Auto 05/01/2021 11:52 [facility] Blood VENOUS BLOOD / Unknown Venipuncture / Unknown 05/01/2021 11:39 EST 05/01/2021 11:42 EST us Queenie Conde MD PACKAGES & DNA PROBE ORDERABLES Final Result [facility] [address] [place] [address] documented in this encounter Visit Diagnoses Diagnosis Malignant neoplasm of right breast in female, estrogen receptor negative, unspecified site of breast (HCC-CMS) documented in this encounter Care Teams Electrification Adviser Relationship Specialty Start Date End Date Batsheva Lira FNP [address] [phone] PCP - General 02/19/20 07/21/22 documented as of this encounter
--- OUTSIDE RECORDS SUMMARY | 2024-05-04 01:28 | XMS_ITS | Encounter Summary ---
Author Organization [facility] Address [address] [place] [address] Care Team Providers Care Maintenance Manager Name Role Phone Batsheva Lira JOHN Primary Care Provider [phone] Reason for Visit * Reason Onset Date Comments Follow-up 04/22/2021 Encounter Details Date Type Department Care Team (Late st Contact Info) Description 04/22/2021 Telephone [facility] Cancer Center Hematology & Oncology - [address] [id number] Edinson Lorenzana LICSW Follow-up Social History Tobacco Use Types Packs/Day [...] Author No 12/24/2020 17:15 Amarliys Michaud RN * Do you have difficulty [...] Info) Description 02/28/2025 13:00 EDT Office Visit [facility] Surgical Oncology - [address] [address] Maeve Morales, DO 111 [facility], [facility], Level 2 [place] [address] documented as of this encounter Visit Diagnoses Not on filedocumented in this encounter Care Teams Maintenance Manager Relationship Specialty Start Date End Date Batsheva Lira FNP [address] [phone] PCP - General 02/19/20 07/21/22 documented as of this encounter
--- OUTSIDE RECORDS SUMMARY | 2024-05-04 01:28 | XMS_ITS | Encounter Summary ---
Author Organization [facility] Address [address] [place] [address] Care Team Providers Care Executive Wellness Programs Director Name Role Phone Batsheva Lira JOHN Primary Care Provider [phone] Encounter Details Date Type Department Care Team (Late st Contact Info) Description 04/06/2021 Specialty Pharmacy [facility] [address] [place] [address] Petros Vega, [facility] Social History Tobacco Use Types Packs/Day Years [...] Visit [facility] Surgical Oncology - [address] [address]01[address] Maeve Morales, 111 [facility], Level 2 [place] [phone] documented as of this encounter Visit Diagnoses Not on filedocumented in this encounter Care Teams Executive Wellness Programs Director Relationship Specialty Start Date End Date Batsheva Lira FNP [address] [place] [phone] PCP - General 02/19/20 07/21/22 documented as of this encounter
--- OUTSIDE RECORDS SUMMARY | 2024-05-04 01:28 | XMS_ITS | Encounter Summary ---
Author Organization [facility] Address [address] [place] [address] Care Team Providers Care Director Of Maternity Services Name Role Phone Batsheva Lira JOHN Primary Care Provider [phone] Reason for Visit * Reason Comments Follow-up Encounter Details Date Type Department Care Team (Late st Contact Info) Description 05/21/2021 11:00 EST Telemedicine [facility] Cancer Center Hematology & Oncology - [address] [phone] Yulissa Martines, [address], [facility] 2 [place] [address] Adjustment reaction with anxiety (Primary [...] Visit [facility] Surgical Oncology - [address] [address] Maeve Morales, DO [address] [place] [address], Level [address] [place] [phone] documented as of this encounter Visit Diagnoses Diagnosis Adjustment reaction with anxiety- Primary Adjustment disorder with anxiety documented in this encounter Care Teams Director Of Maternity Services Relationship Specialty Start Date End Date Batsheva Lira FNP [address] [phone] PCP - General 02/19/20 07/21/22 documented as of this encounter
--- OUTSIDE RECORDS SUMMARY | 2024-05-04 01:28 | XMS_ITS | Encounter Summary ---
Author Organization [facility] Address [address] [place] [address] Care Team Providers Care Leasing Sales Consultant Name Role Phone Batsheva Lira JOHN Primary Care Provider [phone] Reason for Visit * Reason Comments Tissue Shipping Assistant Fill Bilateral TE fill Encounter Details Date Type Department Care Team (Late st Contact Info) Description 04/07/2021 10:00 EST Office Visit [facility] Plastic, Reconstructive & Cosmetic Surgery - [address], [address] [place] [address] Juanito Carcamo MD [address] [place] [phone] Surgery follow-up (Primary Dx) Social History [...] system the port was accessed and the telephone maintainer filled with 75 cc of injectable saline [...] [facility] Surgical Oncology - [address] [address] Maeve Morales, [address] [place] [address], Level 2 [place] [phone] documented as of this encounter Visit Diagnoses Diagnosis Surgery follow-up- Primary Follow-up examination, following unspecified surgery documented in this encounter Care Teams Leasing Sales Consultant Relationship Specialty Start Date End Date Batsheva Lira FNP [address] [phone] PCP - General 02/19/20 07/21/22 documented as of this encounter
--- OUTSIDE RECORDS SUMMARY | 2024-05-04 01:28 | XMS_ITS | Encounter Summary ---
Author Organization [facility] Address [address] [place] [address] Care Team Providers Care In Store Marketing Associate Name Role Phone Batsheva Lira JOHN Primary Care Provider [phone] Reason for Visit * Reason Onset Date Comments COVID-19 06/05/2021 Encounter Details Date Type Department Care Team (Late st Contact Info) Description 06/05/2021 Orders Only [facility] Plastic, Reconstructive & Cosmetic Surgery - [address], [address] [place] [address] Juanito Carcamo MD [address] [place] [address] Malignant neoplasm of upper-inner quadrant [...] [facility] Surgical Oncology - [address] [phone] Maeve Morales, DO 111 [facility], Level 2 [place] [address] documented as of this encounter Results * COVID-19 TESTING (06/12/2021 9:37 EST) COVID-19 rt-PCR Result Negative Negative 06/12/2021 18:22 EST [facility] Comment: This test has [...] was performed using the gabriele SARS-CoV-2 assay ([employer] on the Gabriele 6800 System Performing Lab Gabriele [address] 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
--- OUTSIDE RECORDS SUMMARY | 2024-05-04 01:28 | XMS_ITS | Encounter Summary ---
Author Organization [facility] Address [address] [place] [address] Care Team Providers Care Esters And Emulsifiers Supervisor Name Role Phone Batsheva Lira JOHN Primary Care Provider [phone] Reason for Visit * Reason Comments Tissue Doctor Of Naprapathic Medicine Fill bilateral Encounter Details Date Type Department Care Team (Late st Contact Info) Description 05/28/2021 10:45 EST Office Visit [facility] Plastic, Reconstructive & Cosmetic Surgery - [address], [address] [place] [address] Juanito Carcamo MD [address] [place] [address] Surgery follow-up (Primary Dx) Social [...] * Juanito Carcamo MD FACS - 05/28/2021 1045 EST Austin returns for possible fill of her tissue mainframe programmer. There is a suspicion that the right tissue mainframe programmer has a leak which is why she is seeing me today. On exam this is no longer suspicion. Her right tissue mainframe programmer is completely empty. This is clearly had [...] [facility] Surgical Oncology - [address] [id number] Maeve Morales, DO 111 [facility], Level 2 [place] [phone] documented as of this encounter Visit Diagnoses Diagnosis Surgery follow-up- Primary Follow-up examination, following unspecified surgery documented in this encounter Care Teams Esters And Emulsifiers Supervisor Relationship Specialty Start Date End Date Batsheva Lira FNP [address] [phone] PCP - General 02/19/20 07/21/22 documented as of this encounter
--- OUTSIDE RECORDS SUMMARY | 2024-05-04 01:29 | XMS_ITS | Encounter Summary ---
Author Organization [facility] Address [address] [place] [address] Care Team Providers Care Resolution Analyst Name Role Phone Batsheva Lira JOHN Primary Care Provider Pam Germain MD Unavailable [phone] Janay Duran APRN Primary Care Provider Inez Corado DO Primary Care Provid er Reason for Visit * Reason Onset Date Comments Prior Auth, Medication 01/28/2021 Capecitab ine 500 mg Encounter Details Date Type Department Care Team (Late st Contact Info) Description 01/28/2021 Telephone [facility] Cancer Center Hematology & Oncology - [place] [address] [place], [place] [phone] [place] [address] [address] Prior Auth, Medication (Capecitabine 500 mg [...] EDT Office Visit [place] Surgical Oncology - [address] [phone] Maeve Morales, DO 111 [facility], [facility], Level 2 [place] [address] documented as of this encounter Visit Diagnoses Not on filedocumented in this encounter Care Teams Resolution Analyst Relationship Specialty Start Date End Date Batsheva Lira FNP [address] [address] PCP - General 02/19/20 07/21/22 Janay Duran APRN [address] [place] [phone] PCP - General Family Medicine - Primary Care 07/22/22 02/12/24 Inez Corado DO [address] [place] [phone] PCP - General Family Medicine - Primary Care 02/13/24 Pam Germain MD [address] [place] [phone] Medical Oncology 03/22/22 documented as of this encounter
--- OUTSIDE RECORDS SUMMARY | 2024-05-04 01:29 | XMS_ITS | Encounter Summary ---
Author Organization [facility] Address [address] [place] [address] Care Team Providers Care Respiratory Care Practitioner Name Role Phone Batsheva Lira JOHN Primary Care Provider [phone] Reason for Visit * Reason Onset Date Comments Appointment Related 01/13/2021 Encounter Details Date Type Department Care Team (Late st Contact Info) Description 01/13/2021 Telephone [facility] Rehabilitation Therapy - [facility] [address] [place] [address] Katia Hughes, PT [address] [place] [address] Appointment Related Social History Tobacco [...] Encounter - Katia Hughes, PT - 01/13/2021 0853 EDT Returned patients phone call re scheduling [...] Description 02/28/2025 13:00 EDT Office Visit [facility] Surgical Oncology - [address] [address] Maeve Morales, 111 [facility], [address] [place] [address] documented as of this encounter Visit Diagnoses Not on filedocumented in this encounter Care Teams Respiratory Care Practitioner Relationship Specialty Start Date End Date Batsheva Lira FNP [address] [phone] PCP - General 02/19/20 07/21/22 documented as of this encounter
--- OUTSIDE RECORDS SUMMARY | 2024-05-04 01:29 | XMS_ITS | Encounter Summary ---
Author Organization [facility] Address [address] [place] [address] Care Team Providers Care Customer Professional Name Role Phone Batsheva Lira JOHN Primary Care Provider [phone] Encounter Details Date Type Department Care Team (Late st Contact Info) Description 02/16/2021 Orders Only [facility] Cancer Center Hematology & Oncology - [facility] [address] [place] [address] Lolly Antunez, RADHA Malignant neoplasm of upper-inner [...] Info) Description 02/28/2025 13:00 EDT Office Visit [facility] Surgical Oncology - [address] [phone] Maeve Morales, DO 111 [facility], [address] [place] [address] documented as of this encounter Visit Diagnoses Diagnosis Malignant 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, estrogen receptor negative (HCC-CMS)- Primary documented in this encounter Care Teams Customer Professional Relationship Specialty Start Date End Date Batsheva Lira FNP [address] [place] [phone] PCP - General 02/19/20 07/21/22 documented as of this encounter
--- OUTSIDE RECORDS SUMMARY | 2024-05-04 01:29 | XMS_ITS | Encounter Summary ---
Author Organization [facility] Address [address] [place] [address] Care Team Providers Care Steeple Jack Name Role Phone Batsheva Lira JOHN Primary Care Provider [phone] Reason for Visit * Reason Onset Date Comments Social Work 01/15/2021 financial Encounter Details Date Type Department Care Team (Late st Contact Info) Description 01/15/2021 Telephone [facility] Cancer Center Hematology & Oncology - [place] [address] [place], [place] [address] Veronique Dye Social Work (financial) Social History [...] Description 02/28/2025 13:00 EDT Office Visit [facility] Surgical Oncology - [address] [address] Maeve Morales, DO [address] [place] [address], [address] [place] [address] documented as of this encounter Visit Diagnoses Not on filedocumented in this encounter Care Teams Steeple Jack Relationship Specialty Start Date End Date Batsheva Lira FNP [address] [phone] PCP - General 02/19/20 07/21/22 documented as of this encounter
--- OUTSIDE RECORDS SUMMARY | 2024-05-04 01:29 | XMS_ITS | Encounter Summary ---
Author Organization [facility] Address [address] [place] [address] Care Team Providers Care Grinder Mill Operator Name Role Phone Batsheva Lira JOHN Primary Care Provider Reason for Visit * Reason Onset Date Comments Appointment Related 01/15/2021 Encounter Details Date Type Department Care Team (Late st Contact Info) Description 01/15/2021 Telephone [facility] Cancer Center Hematology & Oncology - [facility] [address] [place], [place] [phone] Lolly nAtunez RN Appointment Related Social History Tobacco Use [...] Info) Description 02/28/2025 13:00 EDT Office Visit [facility] Surgical Oncology - [address] [address] Maeve Morales, DO 111 [facility], [address] [place] [address] documented as of this encounter Visit Diagnoses Not on filedocumented in this encounter Care Teams Grinder Mill Operator Relationship Specialty Start Date End Date Batsheva Lira FNP [address] [phone] PCP - General 02/19/20 07/21/22 documented as of this encounter
--- OUTSIDE RECORDS SUMMARY | 2024-05-04 01:29 | XMS_ITS | Encounter Summary ---
Author Organization [facility] Address [address] [place] [address] Care Team Providers Care Site Lead Name Role Phone Batsheva Lira JOHN Primary Care Provider [phone] Reason for Referral * Radiology Services (Routine/Next Available) - Closed Specialty Diagnoses / Procedures Referred By Contac t Referred To Contact Diagnoses Malignant 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, estrogen receptor negative (HCC-CMS) Procedures CT ABDOMEN W CONTRAST Queenie Conde MD Phone: tel: fax: Referral ID Status Reason Start Date Expiration Date Visits Re quested Visits Authorized [id number] Closed 02/06/2021 1 1 Reason for Visit * Radiology Services (Routine/Next Available) - Closed Specialty Diagnoses / Procedures Referred By Jen gonzáles Referred To Contact Diagnoses Malignant 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, estrogen receptor negative (HCC-CMS) Procedures CT ABDOMEN W CONTRAST Queenie Conde MD Phone: tel: fax: Referral ID Status Reason Start Date Expiration Date Visits Re quested Visits Authorized [id number] Closed 02/06/2021 1 1 Encounter Details Date Type Department Care Team (Latest Contact Info) Description 02/13/2021 18:57 EDT - 02/13/2021 23:59 EDT Hospital Encounter [facility] Radiology CT - [address] [address] Malignant neoplasm of upper-inner quadrant of left [...] Date Author No 12/24/2020 17:15 EDT Amarilys Valnetin RN documented in this encounter Medications at Time of Discharge acetaminophen (TYLENOL) 500 mg tablet Take 2 Tablets by mouth every 6 hours. 12/25/2020 1 amLODIPine (NORVASC) 2.5 mg tablet Take 2.5 mg by mouth daily. 2 capecitabine (XELODA) 500 mg tablet Take 4 Tablets by mouth 2 times daily. Take for 14 days, then stop for 7 days. 112 Tablet 5 02/06/2021 1 cephalexin (KEFLEX) 500 mg capsule Take 1 [...] Daily Max: 24 mg 30 Tablet 12/25/2020 1 INTRAUTERINE DEVICE, IUD, INTRAUTERINE by intrauterine route. 2 lidocaine-priloca ine (EMLA) cream Apply to port site and cover, 1 hr before planned port access 25 g 1 08/13/2020 1 omeprazole (PRILOSEC) 40 mg capsule TAKE 1 CAPSULE BY MOUTH EVERYDAY AT BEDTIME 90 capsule 3 12/30/2020 1 triamcinolone acetonide (KENALOG) 0.1 % pasteIndications: Malignant 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, estrogen receptor negative (HCC-CMS) Apply to affected area up to three times daily as needed for pain. 1 Tube 11/07/2020 1 documented as of this encounter Discharge Disposition Disposition Code Departure Means Destination Home or Self Care documented in this encounter Plan of Treatment Upcoming Encounters Date Type Department Care Team (Late st Contact Info) Description 02/28/2025 13:00 EDT Office Visit [facility] Surgical Oncology - [facility] [address] [place] [address] Maeve Morales, DO 111 [facility], [address] [facility], Level 2 [place] [address] documented as of this [...] lesion. L5-S1 facet hypertrophy on the right. Chemist Helper: No additional findings. Procedure Note Deni Mercado [...] osseous lesion. L5-S1 facet hypertrophy onthe right. Chemist Helper: No additional findings. IMPRESSION 1. No metastatic disease or lymphadenopathy identified in the abdomen. 2. Hepatomegaly and hepatic steatosis appear to have progressed sinceprior CT. 3. Status post cholecystectomy. Queenie Conde MD IM CT ORDERABLES Final Result documented in this encounter [...] 1 documented in this encounter Care Teams Site Lead Relationship Specialty Start Date End Date Batsheva Lira FNP [address] [phone] PCP - General 02/19/20 07/21/22 documented as of this encounter
--- OUTSIDE RECORDS SUMMARY | 2024-05-04 01:29 | XMS_ITS | Encounter Summary ---
Author Organization [facility] Address [address] [place] [address] Care Team Providers Care Seismograph Helper Name Role Phone Batsheva Lira JOHN Primary Care Provider [phone] Encounter Details Date Type Department Care Team (Late st Contact Info) Description 03/03/2021 Documentation Visit [facility] Cancer Center Hematology & Oncology - [facility] [address] [place] [address] Edinson Lorenzana LICSW Social History Tobacco Use [...] No 12/24/2020 17:15 Amairlys Michaud RN * Because of a physical, [...] in this encounter Progress Notes * Edinson Lorenzana, [facility] - 03/03/2021 1336 EDT SW F/U Visit Presenting Issue Austin and I met today as planned. She showed me the SSI report she received and she noted several areas that had the wrong information. She plans to call her CM Miss Dunbar to ask if they [...] was provided $50 in gas assistance from [employer] and $100 in Visa cards [facility] the [facility] w/ the financial hardship. Person Centered Goals SSDI/SSI Rental assistance program Plan Continue to support the pt with goals identified. Edinson COON documented in this encounter Plan of Treatment Upcoming Encounters Date Type Department Care Team (Late st Contact Info) Description 02/28/2025 13:00 EDT Office Visit [facility] Surgical Oncology - [address] [address] Maeve Morales, DO 111 [facility], [address] [place] [phone] documented as of this encounter Visit Diagnoses Not on filedocumented in this encounter Care Teams Seismograph Helper Relationship Specialty Start Date End Date Batsheva Lira FNP [address] [phone] PCP - General 02/19/20 07/21/22 documented as of this encounter
--- OUTSIDE RECORDS SUMMARY | 2024-05-04 01:29 | XMS_ITS | Encounter Summary ---
Author Organization [facility] Address [address] [place] [address] Care Team Providers Care Brand Advisor Name Role Phone Batsheva Lira JOHN Primary Care Provider [phone] Encounter Details Date Type Department Care Team (Late st Contact Info) Description 03/03/2021 12:45 EDT Phlebotomy Only [facility] ED Center 2 Phlebotomy [address] [place] [address] Report Checker, Acc Phlebotomy Malignant neoplasm of right breast [...] documented in this encounter Progress Notes * Vivian Lackey [...] determine plans for future sessions. JORDAN Melendez Warehouse Director II documented in this encounter Plan of Treatment Upcoming Encounters Date Type Department Care Team (Late st Contact Info) Description 02/28/2025 13:00 EDT Office Visit [facility] Surgical Oncology - [facility] [address] [place], [place] [phone] Maeve Morales, DO 111 [facility], [facility], Level [address] [place] [address] documented as of this encounter [...] 139 136 - 145 mmol/L 03/03/2021 13:37 EDT [facility] Potassium 4.2 3.5 - 5.0 mEq/L 03/03/2021 13:37 T [facility] Chloride 102 96 - 110 mEq/L 03/03/2021 13:37 [facility] CO2 Total 25 22 - 32 mEq/L 03/03/2021 13:37 [facility] Glucose 168(H) 70 - 100 mg/dL 03/03/2021 13:37 [facility] BUN 10 10 - 26 mg/dL 03/03/2021 13:37 [facility] Creatinine 0.46(L) 0.52 - 1.04 mg/dL 03/03/2021 13:37 [facility] eGFR 121 >60 mL/min/1.7 3m2 03/03/2021 13:37 [facility] Comment:eGFR calculated mata asif CKD-EPI equation for non- Americans. Multiply eGFR by 1.16 for patients. Total Protein 7.6 6.3 - 8.2 g/dL 03/03/2021 13:37 [facility] Albumin 4.7 3.4 - 4.9 g/dL 03/03/2021 13:37 [facility] Alkaline Phosphatase 164(H) 38 - 126 U/L 03/03/2021 13:37 [facility] AST 58(H) 15 - 46 U/L 03/03/2021 13:37 [facility] ALT 89(H) <35 U/L 03/03/2021 13:37 [facility] Bilirubin, Total <0.5 <1.4 mg/dL 03/03/20 13:37 [facility] Calcium 9.6 8.5 - 10.5 mg/dL 03/03/2021 13:37 [facility] Calculated Calcium 9.0 8.5 - 10.5 mg/dL 03/03/2021 13:37 [facility] Blood VENOUS BLOOD / Unknown Venipuncture / Unknown 03/03/2021 12:58 EDT 03/03/2021 13:04 EDT Queenie Conde MD CHEMISTRY & BLOOD GAS ORDERABLES Final Result [facility] [address] [place] [address] * (ABNORMAL) COMPLETE BLOOD COUNT AND DIFFERENTIAL (03/03/2021 12:58 EDT) WBC 5.90 4.00 - 12.40 K/cmm 03/03/2021 13:16 [facility] RBC 4.74 3.86 - 5.04 M/cmm 03/03/2021 13:16 [facility] Hemoglobin 14.3 11.6 - 15.2 gm/dL 03/03/2021 13:16 [facility] HCT 42.8 34.9 - 44.4 % 03/03/2021 13:16 [facility] MCV 90 81 - 98 fl 03/03/2021 13:16 [facility] MCH 30.2 26.7 - 33.3 pg 03/03/2021 13:16 [facility] MCHC 33.4 32.1 - 35.9 gm/dL 03/03/2021 13:16 [facility] RDW-CV 12.5 <14.7 % 03/03/2021 13:16 [facility] RDW-SD 41.2 <50.4 fl 03/03/2021 13:16 [facility] PLT 269 141 - 377 K/cmm 03/03/2021 13:16 [facility] MPV 9.4(L) 9.5 - 12.7 fl 03/03/2021 13:16 [facility] % Neutrophils 54.1 % 03/03/2021 13:16 [facility] % Lymphocytes 27.6 % 03/03/2021 13:16 [facility] % Monocytes 12.0 % 03/03/2021 13:16 [facility] % Eosinophils 4.9 % 03/03/2021 13:16 [facility] % Basophils 1.2 % 03/03/2021 13:16 [facility] % Immature Grans 0.2 % 03/03/20 13:16 [facility] Absolute Neutrophils 3.19 2.20 - 8.85 K/cmm 03/03/2021 13:16 [facility] Absolute Lymphocytes 1.63 1.09 - 3.30 K/cmm 03/03/2021 13:16 [facility] Absolute Monocytes 0.71 0.10 - 0.80 K/cmm 03/03/2021 13:16 [facility] Absolute Eosinophils 0.29 0.03 - 0.61 K/cmm 03/03/2021 13:16 EDT [facility] ABS Basophils 0.07 0.01 - 0.11 K/cmm 03/03/2021 13:16 EDT [facility] Absolute Immature Grans 0.01 0.00 - 0.06 K/cmm 03/03/2021 13:16 EDT [facility] Type of Differential: Auto 03/03/2021 13:16 EDT [facility] Blood VENOUS BLOOD / Unknown Venipuncture / Unknown 03/03/2021 12:58 EDT 03/03/2021 13:04 EDT us Queenie Conde MD PACKAGES & DNA PROBE ORDERABLES Final Result [facility] [address] [place] [address] documented in this encounter Visit Diagnoses Diagnosis Malignant neoplasm of right breast in female, estrogen receptor negative, unspecified site of breast ([facility]-CMS)- Primary documented in this encounter Care Teams Brand Advisor Relationship Specialty Start Date End Date Batsheva Lira FNP [address] [phone] PCP - General 02/19/20 07/21/22 documented as of this encounter
--- OUTSIDE RECORDS SUMMARY | 2024-05-04 01:29 | XMS_ITS | Encounter Summary ---
Author Organization [facility] Address [address] [place] [address] Care Team Providers Care Integrity Assessor Name Role Phone Batsheva Lira JOHN Primary Care Provider [phone] Reason for Visit * Reason Onset Date Comments Follow-up 03/02/2021 Encounter Details Date Type Department Care Team (Late st Contact Info) Description 03/02/2021 Telephone [facility] Cancer Center Hematology & Oncology - [facility] [address] [place], [place] [address] Vivian Brito, RN Follow-up Social History Tobacco [...] in orders for standing labs here at [facility]). Austin verbalized understanding of plan and will call with any questions or concerns. documented in this encounter Plan of Treatment Upcoming Encounters Date Type Department Care Team (Late st Contact Info) Description 02/28/2025 13:00 EDT Office Visit [facility] Surgical Oncology - [address] [phone] Maeve Morales, DO 111 [facility], [facility], Level 2 [place] [phone] documented as of this encounter Visit Diagnoses Diagnosis Malignant neoplasm of right breast in female, estrogen receptor negative, unspecified site of breast (HCC-CMS)- Primary documented in this encounter Care Teams Integrity Assessor Relationship Specialty Start Date End Date Batsheva Lira FNP [address] [phone] PCP - General 02/19/20 07/21/22 documented as of this encounter
--- OUTSIDE RECORDS SUMMARY | 2024-05-04 01:29 | XMS_ITS | Encounter Summary ---
Author Organization [facility] Address [address] [place] [address] Care Team Providers Care Copy Machine Operator Name Role Phone Batsheva Lira JOHN Primary Care Provider [phone] Reason for Visit * Reason Comments Post-OP Follow Up Encounter Details Date Type Department Care Team (Late st Contact Info) Description 01/21/2021 10:20 EDT Post-op Visit [facility] Surgical Oncology - [address] [address] Maeve Morales, DO 111 [facility], Level 2 [place] [phone] Malignant neoplasm of upper-inner quadrant of left [...] Info) Description 02/28/2025 13:00 EDT Office Visit [facility] Surgical Oncology - [address] [phone] Maeve Morales DO [address] [place] [address] 2 [place] [phone] documented as of this encounter Procedures Procedure Name Priority Date/Time Associated Diagnosis Comments ORDERS - SCANNED 01/27/2021 7:20 EDT documented in this encounter Results * ORDERS - SCANNED (01/27/2021 7:20 EDT) 01/27/2021 7:20 EDT us Scan 2 Sixth Grade Teacher ADMISSION ORDERABLES Final Result documented in this encounter Visit Diagnoses Diagnosis Malignant 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, estrogen receptor negative (HCC-CMS)- Primary documented in this encounter Care Teams Copy Machine Operator Relationship Specialty Start Date End Date Batsheva Lira FNP [address] [phone] PCP - General 02/19/20 07/21/22 documented as of this encounter
--- OUTSIDE RECORDS SUMMARY | 2024-05-04 01:29 | XMS_ITS | Encounter Summary ---
Author Organization [facility] Address [address] [place] [address] Care Team Providers Care Media Relations Intern Name Role Phone Batsheva Lira JOHN Primary Care Provider [phone] Reason for Visit * Reason Comments New Patient Visit Fatty Liver * Consult (Urgent) - Order Cancelled Specialty Diagnoses / Procedures Referred By Contact Referred To Contact Gastroenterology and Hepatology Diagnoses Hepatomegaly Steatosis (HCC-CMS) Malignant 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, estrogen receptor negative (HCC-CMS) Queenie Conde MD Phone: tel: fax: Hernando Diaz MD PhD Phone: tel:[phone] fax:[phone] Referral ID Status Reason Start Date Expiration Date Visits Requested Visits Authorized [id number] Order Cancelled Specialty Services Required 02/16/2021 1 1 Encounter Details Date Type Department Care Team (Late st Contact Info) Description 02/20/2021 11:20 EDT Telemedicine [facility] Gastroenterology - [facility] [address] [place] [address] Hernando Diaz MD PhD [address] [place] [address], Level 5 [place] [phone] Fatty liver (Primary Dx); LFTs abnormal Social [...] documented in this encounter Progress Notes * Hernando Diaz [...] in today's encounter visit: MD Ivis Andrews [place] The concept of ???Telemedicine?? has been described [...] Diaz MD - 02/20/2021 1120 EDT [facility] GASTROENTEROLOGY AND HEPATOLOGY CONSULTATION - 02/20/2021 Queenie Conde MD [facility] - Medical Oncology [address] [place] [address] Conde: Thank you for asking [...] liver disease. 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 She consumes alcohol [...] [facility] Surgical Oncology - [facility] [address] [place], [place] [id number] Maeve Morales DO 111 [facility], Level 2 [place] [phone] documented as of this encounter Results * HEPATITIS C AB W REFLEX TO HCV RNA BY PCR (02/25/2021 13:55 EDT) Hep C Antibody Negative Negative 02/26/2021 11:03 EDT [facility] Blood VENOUS BLOOD / Unknown Venipuncture / Unknown 02/25/2021 13:55 EDT 02/25/2021 14:13 EDT us Hernando Diaz MD PhD CHEMISTRY & BLOOD GAS O RDERABLES Final Result [facility] [address] [place] [address] documented in this encounter Visit Diagnoses Diagnosis Fatty liver- Primary Other chronic nonalcoholic liver disease LFTs abnormal Other abnormal blood chemistry documented in this encounter Care Teams Media Relations Intern Relationship Specialty Start Date End Date Batsheva Lira FNP [address] [address] PCP - General 02/19/20 07/21/22 documented as of this encounter
--- OUTSIDE RECORDS SUMMARY | 2024-05-04 01:29 | XMS_ITS | Encounter Summary ---
Author Organization [facility] Address [address] [place] [address] Care Team Providers Care Emergency Department Aide Name Role Phone Batsheva Lira JOHN Primary Care Provider [phone] Reason for Visit * Reason Comments Follow-up * Consult (Routine) - Order Cancelled Specialty Diagnoses / Procedures Referred By Jen gonzáles Referred To Contact Hematology and Oncology Diagnoses Malignant neoplasm of female breast, unspecified estrogen receptor status, unspecified laterality, unspecified site of breast ([facility]) Queenie Conde MD Phone: tel: fax: [facility] Hematology & Oncology [address] [address] Phone: tel: fax: Referral ID Status Reason Start Date Expiration Date Visits Requested Visits Authorized [id number] Order Cancelled Specialty Services Required 07/15/2020 1 1 Encounter Details Date Type Department Care Team (Late st Contact Info) Description 02/09/2021 13:00 EDT Telemedicine [facility] Hematology & Oncology [address] [id number] Yulissa Martines, [address], [facility] 2 [place] [phone] Adjustment reaction with anxiety (Primary Dx) Social [...] [facility] Surgical Oncology - [address] [phone] Maeve Morales, DO 111 [facility], [facility], Level 2 [place] [phone] documented as of this encounter Visit Diagnoses Diagnosis Adjustment reaction with anxiety- Primary Adjustment disorder with anxiety documented in this encounter Care Teams Emergency Department Aide Relationship Specialty Start Date End Date Batsheva Lira FNP [address] [address] PCP - General 02/19/20 07/21/22 documented as of this encounter
--- OUTSIDE RECORDS SUMMARY | 2024-05-04 01:29 | XMS_ITS | Encounter Summary ---
Author Organization [facility] Address [address] [place] [address] Care Team Providers Care Frothing Machine Operator Name Role Phone Batsheva Lira JOHN Primary Care Provider [phone] Reason for Visit * Reason Comments Follow-up * Consult (Routine) - Order Cancelled Specialty Diagnoses / Procedures Referred By Jen gonzáles Referred To Contact Hematology and Oncology Diagnoses Malignant neoplasm of female breast, unspecified estrogen receptor status, unspecified laterality, unspecified site of breast ([facility]) Queenie Conde MD Phone: tel: fax: [facility] Hematology & Oncology [address] [address] Phone: tel: fax: Referral ID Status Reason Start Date Expiration Date Visits Requested Visits Authorized [id number] Order Cancelled Specialty Services Required 07/15/2020 1 1 Encounter Details Date Type Department Care Team (Late st Contact Info) Description 02/16/2021 13:00 EDT Telemedicine [facility] Hematology & Oncology [address] [phone] Yulissa Martines, [address], [facility] 2 [place] [phone] Adjustment reaction with anxiety (Primary Dx) Social [...] 02/28/2025 13:00 EDT Office Visit [facility] Surgical Oncology - [address] [address] Maeve Morales, DO 111 [facility], [facility], Level 2 [place] [phone] documented as of this encounter Visit Diagnoses Diagnosis Adjustment reaction with anxiety- Primary Adjustment disorder with anxiety documented in this encounter Care Teams Frothing Machine Operator Relationship Specialty Start Date End Date Batsheva Lira FNP [address] [address] PCP - General 02/19/20 07/21/22 documented as of this encounter
--- OUTSIDE RECORDS SUMMARY | 2024-05-04 01:29 | XMS_ITS | Encounter Summary ---
Author Organization [facility] Address [address] [place] [address] Care Team Providers Care Traffic Engineering Director Name Role Phone Batsheva Lira JOHN Primary Care Provider [phone] Encounter Details Date Type Department Care Team (Late st Contact Info) Description 02/05/2021 12:15 EDT Phlebotomy Only [facility] ED Center 2 Phlebotomy [address] [place] [address], Acc Phlebotomy Malignant 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, estrogen receptor negative ([facility]) Social History Tobacco Use Types Packs/Day [...] Description 02/28/2025 13:00 EDT Office Visit [facility] Surgical Oncology - [address] [phone] Maeve Morales, DO [address] [place] [address], Level 2 [place] [phone] documented as of this encounter Procedures Procedure Name Priority Date/Time Associated Diagnosis Comments COMPREHENSIVE METABOLIC PANEL (ONCOLOGY USE ONLY-INC MG) STAT 02/05/2021 12:20 EDT Malignant 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, estrogen receptor negative (HCC-CMS) COMPLETE BLOOD COUNT AND DIFF, CHEMO STAT 02/05/2021 12:20 EDT Malignant 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, estrogen receptor negative ([facility]) documented in this encounter Results * (ABNORMAL) COMPLETE BLOOD COUNT AND DIFF, CHEMO (02/05/2021 12:20 EDT) WBC 6.04 4.00 - 12.40 K/cmm 02/05/2021 12:35 [facility] RBC 4.85 3.86 - 5.04 M/cmm 02/05/2021 12:35 [facility] Hemoglobin 14.4 11.6 - 15.2 gm/dL 02/05/2021 12:35 [facility] HCT 44.0 34.9 - 44.4 % 02/05/2021 12:35 [facility] MCV 91 81 - 98 fl 02/05/2021 12:35 [facility] MCH 29.7 26.7 - 33.3 pg 02/05/2021 12:35 [facility] MCHC 32.7 32.1 - 35.9 gm/dL 02/05/2021 12:35 [facility] RDW-CV 12.6 <14.7 % 02/05/2021 12:35 [facility] RDW-SD 41.7 <50.4 fl 02/05/2021 12:35 [facility] PLT 255 141 - 377 K/cmm 02/05/2021 12:35 [facility] MPV 9.2(L) 9.5 - 12.7 fl 02/05/2021 12:35 [facility] % Neutrophils 56.9 % 02/05/2021 12:35 [facility] Absolute Neutrophils 3.44 2.20 - 8.85 K/cmm 02/05/2021 12:35 [facility] Type of Differential: Auto 02/05/2021 12:35 [facility] Blood VENOUS BLOOD / Unknown Venipuncture / Unknown 02/05/2021 12:20 EDT 02/05/2021 12:23 EDT us Queenie Conde MD PACKAGES & DNA PROBE ORDERABLES Final Result [facility] [address] [place] [address] * (ABNORMAL) COMPREHENSIVE METABOLIC PANEL (ONCOLOGY USE ONLY-INC MG) (02/05/2021 12:20 EDT) Sodium 139 136 - 145 mmol/L 02/05/2021 12:57 EDT [facility] Potassium 4.0 3.5 - 5.0 mEq/L 02/05/2021 12:57 T [facility] Chloride 101 96 - 110 mEq/L 02/05/2021 12:57 [facility] CO2 Total 25 22 - 32 mEq/L 02/05/2021 12:57 [facility] Glucose 141(H) 70 - 100 mg/dL 02/05/2021 12:57 [facility] BUN 9(L) 10 - 26 mg/dL 02/05/2021 12:57 [facility] Creatinine 0.51(L) 0.52 - 1.04 mg/dL 02/05/2021 12:57 [facility] eGFR 116 >60 mL/min/1.7 3m2 02/05/2021 12:57 [facility] Comment:eGFR calculated mata asif CKD-EPI equation for non- Americans. Multiply eGFR by 1.16 for patients. Total Protein 7.8 6.3 - 8.2 g/dL 02/05/2021 12:57 [facility] Albumin 4.9 3.4 - 4.9 g/dL 02/05/2021 12:57 [facility] Alkaline Phosphatase 161(H) 38 - 126 U/L 02/05/2021 12:57 [facility] AST 102(H) 15 - 46 U/L 02/05/2021 12:57 [facility] ALT 157(H) <35 U/L 02/05/2021 12:57 EDT [facility] Bilirubin, Total <0.5 <1.4 mg/dL 02/06/20 12:57 EDT [facility] Calcium 10.3 8.5 - 10.5 mg/dL 02/05/2021 12:57 EDT [facility] Calculated Calcium 9.6 8.5 - 10.5 mg/dL 02/05/2021 12:57 EDT [facility] Magnesium 1.8 1.7 - 2.8 mg/dL 02/05/2021 12:57 EDT [facility] Blood VENOUS BLOOD / Unknown Venipuncture / Unknown 02/05/2021 12:20 EDT 02/05/2021 12:23 EDT us Queenie Conde MD CHEMISTRY & BLOOD GAS ORDERABLES Final Result Performing Organization Address City/State/[facility] Co de Phone Number [facility] [address] [place] [address] documented in this encounter Visit Diagnoses Diagnosis Malignant 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
--- OUTSIDE RECORDS SUMMARY | 2024-05-04 01:29 | XMS_ITS | Encounter Summary ---
Author Organization [facility] Address [address] [place] [address] Care Team Providers Care Assistant Account Manager Name Role Phone Batsheva Lira JOHN Primary Care Provider [phone] Encounter Details Date Type Department Care Team (Late st Contact Info) Description 02/06/2021 Orders Only [facility] Radiology - Main [place] [address] [place], [place] [address] Promise Ramos MD [address] [place], [place] [address] Social History Tobacco Use Types Packs/Day Years [...] [facility] Surgical Oncology - [address] [address] Maeve Morales, DO 111 [facility], Level 2 [place] [address] documented as of this encounter Visit Diagnoses Not on filedocumented in this encounter Care Teams Assistant Account Manager Relationship Specialty Start Date End Date Batsheva Lira FNP [address] [address] PCP - General 02/19/20 07/21/22 documented as of this encounter
--- OUTSIDE RECORDS SUMMARY | 2024-05-04 01:29 | XMS_ITS | Encounter Summary ---
Author Organization [facility] Address [address] [place] [address] Care Team Providers Care Commercial Producer Name Role Phone Batsheva Lira JOHN Primary Care Provider [phone] Reason for Visit * Reason Onset Date Comments Social Work 01/22/2021 financial Encounter Details Date Type Department Care Team (Late st Contact Info) Description 01/22/2021 Telephone [facility] Cancer Center Hematology & Oncology - [facility] [address] [place], [place] [address] Veronique Dye Social Work (financial) Social History [...] Telephone Encounter - Veronique Dye - 01/22/2021 1158 EDT PN connected with pt by phone today to get a better idea of her financial concerns. Reports that she called [employer] and was told that her benefits have ended and she could re-apply in June. Pt questioned the accuracy of this information filed a claim on 01/20. She will check her account tomorrow to see if she received any benefits. Pt will update me when she checks her account. She also received a letter from [employer] stating that she would need to show [...] 02/28/2025 13:00 EDT Office Visit [facility] Surgical Oncology - [address] [address] Maeve Morales, DO [address] [facility], Level 2 [place] [address] documented as of this encounter Visit Diagnoses Not on filedocumented in this encounter Care Teams Commercial Producer Relationship Specialty Start Date End Date Batsheva Lira FNP [address] [address] PCP - General 02/19/20 07/21/22 documented as of this encounter
--- OUTSIDE RECORDS SUMMARY | 2024-05-04 01:29 | XMS_ITS | Encounter Summary ---
Author Organization [facility] Address [address] [place] [address] Care Team Providers Care It Administrator Name Role Phone Batsheva Lira JOHN Primary Care Provider [phone] Reason for Visit * Reason Onset Date Comments Appointment Related 01/27/2021 Encounter Details Date Type Department Care Team (Late st Contact Info) Description 01/27/2021 Telephone [facility] Rehabilitation Therapy - [facility] [address] [place] [address] Therapist, Physical, PT Appointment Related [...] - Karla Calderon - 01/27/2021 1531 EDT Ausitn called to talk with the person she [...] Visit [facility] Surgical Oncology - [address] [address] Maeve Morales, DO 111 [facility], Level 2 [place] [phone] documented as of this encounter Visit Diagnoses Not on filedocumented in this encounter Care Teams It Administrator Relationship Specialty Start Date End Date Batsheva Lira FNP [address] [address] PCP - General 02/19/20 07/21/22 documented as of this encounter
--- OUTSIDE RECORDS SUMMARY | 2024-05-04 01:29 | XMS_ITS | Encounter Summary ---
Author Organization [facility] Address [address] [place] [address] Care Team Providers Care Drawbench Operator Name Role Phone Batsheva Lira JOHN Primary Care Provider [phone] Reason for Visit * Reason Onset Date Comments Follow-up 02/10/2021 Encounter Details Date Type Department Care Team (Late st Contact Info) Description 02/10/2021 Telephone [facility] Cancer Center Hematology & Oncology - [address] [id number] Edinson Lorenzana, COLD WATER MACHINE OPERATOR Follow-up Social History Tobacco Use Types [...] Reason for Call: [place] and I called [facility] today as planned to schedule an appointment for SSI. Pt has been scheduled for an appointment on 02/25 at 10:30. Pt is going to let me know two weeks after this appointment if she hasn't heard from [facility]. We will call [facility] for an update at that time. Pt Centered Identified Goal: SSDI and SSI Plan: Plan to speak with the pt after her SSI appointment. Edinson COON documented in this encounter Plan of Treatment Upcoming Encounters Date Type Department Care Team (Late st Contact Info) Description 02/28/2025 13:00 EDT Office Visit [facility] Surgical Oncology - [address] [phone] Maeve Morales, DO [address] [place] [address], Level 2 [place] [phone] documented as of this encounter Visit Diagnoses Not on filedocumented in this encounter Care Teams Drawbench Operator Relationship Specialty Start Date End Date Batsheva Lira FNP [address] [phone] PCP - General 02/19/20 07/21/22 documented as of this encounter
--- OUTSIDE RECORDS SUMMARY | 2024-05-04 01:29 | XMS_ITS | Encounter Summary ---
Author Organization [facility] Address [address] [place] [address] Care Team Providers Care Soldering Machine Operator Name Role Phone Batsheva Lira JOHN Primary Care Provider [phone] Encounter Details Date Type Department Care Team [...] [facility] Surgical Oncology - [address] [address] Maeve Morales, DO 111 [facility], Level 2 [place] [phone] documented as of this encounter Visit Diagnoses Not on filedocumented in this encounter Care Teams Soldering Machine Operator Relationship Specialty Start Date End Date Batsheva Lira FNP [address] [phone] PCP - General 02/19/20 07/21/22 documented as of this encounter
--- OUTSIDE RECORDS SUMMARY | 2024-05-04 01:29 | XMS_ITS | Encounter Summary ---
Author Organization [facility] Address [address] [place] [address] Care Team Providers Care Account Installer Name Role Phone Batsheva Lira JOHN Primary Care Provider [phone] Reason for Visit * Reason Onset Date Comments Follow-up 01/29/2021 Encounter Details Date Type Department Care Team (Late st Contact Info) Description 01/29/2021 Telephone [facility] Cancer Center Hematology & Oncology - [address] [address] Edinson Lorenzana, ENGINEER FIRST ASSISTANT Follow-up Social History Tobacco Use Types Packs/Day [...] * Telephone Encounter - Edinson Lorenzana, [facility] - 01/29/[address] [facility] Note: Reason for Call: JUSTIN Dye asked [...] Description 02/28/2025 13:00 EDT Office Visit [facility] Surgical Oncology - [address] [address] Maeve Morales, [address] [facility], Level 2 [place] [phone] documented as of this encounter Visit Diagnoses Not on filedocumented in this encounter Care Teams Account Installer Relationship Specialty Start Date End Date Batsheva Lira FNP [address] [address] PCP - General 02/19/20 07/21/22 documented as of this encounter
--- OUTSIDE RECORDS SUMMARY | 2024-05-04 01:29 | XMS_ITS | Encounter Summary ---
Author Organization [facility] Address [address] [place] [address] Care Team Providers Care Hat Steamer Name Role Phone Batsheva Lira JOHN Primary Care Provider [phone] Reason for Visit * Reason Onset Date Comments Follow-up 01/26/2021 Encounter Details Date Type Department Care Team (Late st Contact Info) Description 01/26/2021 Telephone [facility] Plastic, Reconstructive & Cosmetic Surgery - [address], [address] [place] [address] Juanito Carcamo MD [address] [address] Follow-up Social History Tobacco Use [...] 12/24/2020 17:15 EDT Amarilys Valentin RN * Are you blind or do you have serious difficulty seeing, even when wearing glasses? Answer Date of Assessment Author No 12/24/2020 17:15 EDT Amarilys Valentin, RN * Do you have serious difficulty [...] 01/26/2021 1021 EDT Spoke with Dary from [facility], advised that patient will be at [...] Info) Description 02/28/2025 13:00 EDT Office Visit [facility] Surgical Oncology - [address] [phone] Maeve Morales, DO 111 [facility], Level 2 [place] [address] documented as of this encounter Visit Diagnoses Not on filedocumented in this encounter Care Teams Hat Steamer Relationship Specialty Start Date End Date Batsheva Lira FNP [address] [address] PCP - General 02/19/20 07/21/22 documented as of this encounter
--- OUTSIDE RECORDS SUMMARY | 2024-05-04 01:29 | XMS_ITS | Encounter Summary ---
Author Organization [facility] Address [address] [place] [address] Care Team Providers Care Physical Science Aide Name Role Phone Batsheva Lira JOHN Primary Care Provider [phone] Encounter Details Date Type Department Care Team (Late st Contact Info) Description 02/25/2021 14:00 EDT Phlebotomy Only [facility] ED Center 2 Phlebotomy [address] [place] [address] Temporary Administrative Assistant, Acc Phlebotomy LFTs abnormal Social History Tobacco [...] 02/28/2025 13:00 EDT Office Visit [facility] Surgical Oncology - [address] [phone] Maeve Morales, DO [address] [place] [address] 2 [place] [phone] documented as of this encounter Procedures Procedure Name Priority Date/Time Associated Diagnosis Comments HEPATITIS C AB W REFLEX TO HCV RNA BY PCR Routine 02/25/2021 13:55 EDT LFTs abnormal documented in this encounter Results * HEPATITIS C AB W REFLEX TO HCV RNA BY PCR (02/25/2021 13:55 EDT) Hep C Antibody Negative Negative 02/26/2021 11:03 EDT [facility] Blood VENOUS BLOOD / Unknown Venipuncture / Unknown 02/25/2021 13:55 EDT 02/25/2021 14:13 EDT us Hernando Diaz MD PhD CHEMISTRY & BLOOD GAS O RDERABLES Final Result [facility] [address] [place] [address] documented in this encounter Visit Diagnoses Diagnosis LFTs abnormal Other abnormal blood chemistry documented in this encounter Care Teams Physical Science Aide Relationship Specialty Start Date End Date Batsheva Lira FNP [address] [phone] PCP - General 02/19/20 07/21/22 documented as of this encounter
--- OUTSIDE RECORDS SUMMARY | 2024-05-04 01:29 | XMS_ITS | Encounter Summary ---
Author Organization [facility] Address [address] [place] [address] Care Team Providers Care Bicycle Taxi Driver Name Role Phone Batsheva Lira JOHN Primary Care Provider [phone] Encounter Details Date Type Department Care Team (Late st Contact Info) Description 01/27/2021 Documentation Visit [facility] Hematology & Oncology - [facility] [address] [place] [address] Vivian Brito, RADHA Social History Tobacco Use [...] in this encounter Progress Notes * Vivian Brito RN - 01/27/2021 5249 EDT Patient Education Topic: Discussed with Austin [...] 13:00 EDT Office Visit [facility] Surgical Oncology - [address] [address] Maeve Morales, DO 111 [facility], [facility], Level [address] [place] [phone] documented as of this encounter Visit Diagnoses Not on filedocumented in this encounter Care Teams Bicycle Taxi Driver Relationship Specialty Start Date End Date Batsheva Lira FNP [address] [phone] PCP - General 02/19/20 07/21/22 documented as of this encounter
--- OUTSIDE RECORDS SUMMARY | 2024-05-04 01:29 | XMS_ITS | Encounter Summary ---
Author Organization [facility] Address [address] [place] [address] Care Team Providers Care Christmas Tree Farmer Name Role Phone Batsheva Lira JOHN Primary Care Provider [phone] Encounter Details Date Type Department Care Team (Late st Contact Info) Description 02/06/2021 Documentation Visit [facility] Center Hematology & Oncology - [facility] [address] [place] [address] Edinson Lorenzana LICSW Social History Tobacco Use [...] Visit [facility] Surgical Oncology - [address] [address] Maeve Morales, [address] [place], [place] [address], Level [address] [place] [address] documented as of this encounter Visit Diagnoses Not on filedocumented in this encounter Care Teams Christmas Tree Farmer Relationship Specialty Start Date End Date Batsheva Lira FNP [address] [phone] PCP - General 02/19/20 07/21/22 documented as of this encounter
--- OUTSIDE RECORDS SUMMARY | 2024-05-04 01:29 | XMS_ITS | Encounter Summary ---
Author Organization [facility] Address [address] [place] [address] Care Team Providers Care Seo Marketing Specialist Name Role Phone Batsheva Lira JOHN Primary Care Provider [phone] Reason for Referral * Radiology Services (Routine/Next Available) - Closed Specialty Diagnoses / Procedures Referred By Jen gonzáles Referred To Contact Diagnoses Malignant 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, estrogen receptor negative (HCC-CMS) Procedures CT ABDOMEN W CONTRAST Queenie Conde MD Phone: tel: fax: Referral ID Status Reason Start Date Expiration Date Visits Re quested Visits Authorized [id number] Closed 02/06/2021 1 1 Encounter Details Date Type Department Care Team (Late st Contact Info) Description 02/05/2021 Orders Only [facility] Cancer Center Hematology & Oncology - [facility] [address] [place], [place] [phone] Lolly Antunez, RADHA Malignant neoplasm of upper-inner [...] [facility] Surgical Oncology - [address] [address] Maeve Morales, DO 111 [facility], [facility], Level 2 [place] [phone] documented as of this encounter Procedures Procedure [...] lesion. L5-S1 facet hypertrophy on the right. Differential Specialist: No additional findings. Procedure Note Deni Mercado [...] osseous lesion. L5-S1 facet hypertrophy onthe right. Differential Specialist: No additional findings. IMPRESSION 1. No metastatic disease or lymphadenopathy identified in the abdomen. 2. Hepatomegaly and hepatic steatosis appear to have progressed sinceprior CT. 3. Status post cholecystectomy. Queenie Conde MD [facility] CT ORDERABLES Final Result * HEPATITIS B PROFILE (02/05/2021 12:20 EDT) Hep B Surface Ag Negative Negative 02/07/20 12:33 [facility] Hep B Surface Ab, Quantitative <3.1 See Note mIU/mL 02/06/2021 12:33 [facility] Comment: Reference Range for Hep B Surface Ab, Quant: Positive: >= 10.0 mIU/mL Negative: ??< 10.0 mIU/mL Patient is presumed to not be immune to infection with Hepatitis B Virus. Hep B Surface Ab, Qualitative Negative See Note 02/06/2021 12:33 [facility] Comment: Reference Range for Hep B Surface Ab, Qual: Unvaccinated: ??Negative Vaccinated: ??Positive Hepatitis B Core Ab, Total Negative Negative 02/06/2021 12:33 [facility] Blood VENOUS BLOOD / Unknown Venipuncture / Unknown 02/05/2021 12:20 EDT 02/05/2021 12:23 EDT us Queenie Conde MD CHEMISTRY & BLOOD GAS ORDERABLES Final Result [facility] [address] [place] [address] documented in this encounter Visit Diagnoses Diagnosis Malignant 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, estrogen receptor negative (HCC-CMS)- Primary Malignant 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, estrogen receptor negative (HCC-CMS) documented in this encounter Care Teams Seo Marketing Specialist Relationship Specialty Start Date End Date Batsheva Lira FNP [address] [phone] PCP - General 02/19/20 07/21/22 documented as of this encounter
--- OUTSIDE RECORDS SUMMARY | 2024-05-04 01:29 | XMS_ITS | Encounter Summary ---
Author Organization [facility] Address [address] [place] [address] Care Team Providers Care Boarding Kennel Or Cattery Operator Name Role Phone Batsheva Lira JOHN Primary Care Provider [phone] Reason for Visit * Reason Onset Date Comments Appointment Related 01/13/2021 Encounter Details Date Type Department Care Team (Late st Contact Info) Description 01/13/2021 Telephone [facility] Therapy - [facility] [address] [place] [address] Physical, Therapy Appointment Related Social [...] message was left for patient to contact [phone] to reschedule [facility] evaluation in late January. documented in this encounter Plan of Treatment Upcoming Encounters Date Type Department Care Team (Late Contact Info) Description 02/28/2025 13:00 EDT Office Visit [facility] Surgical Oncology - [address] [phone] Maeve Morales, DO 111 [facility], [facility], [address] [place] [phone] documented as of this encounter Visit Diagnoses Not on filedocumented in this encounter Care Teams Boarding Kennel Or Cattery Operator Relationship Specialty Start Date End Date Batsheva Lira FNP [address] [phone] PCP - General 02/19/20 07/21/22 documented as of this encounter
--- OUTSIDE RECORDS SUMMARY | 2024-05-04 01:29 | XMS_ITS | Encounter Summary ---
Author Organization [facility] Address [address] [place] [address] Care Team Providers Care Mattress Filling Machine Tender Name Role Phone Batsheva Lira JOHN Primary Care Provider [phone] Reason for Visit * Reason Onset Date Comments Follow-up 03/02/2021 Encounter Details Date Type Department Care Team (Late st Contact Info) Description 03/02/2021 Telephone [facility] Cancer Center Hematology & Oncology - [facility] [address] [place], [place] [address] Edinson Lorenzana, LICENSED APPRAISER Follow-up Social History Tobacco Use Types Packs/Day [...] Edinson Lorenzana LICSW - 03/02/2021 1052 EDT NICANOR Note: Reason for Call: Austin sent me [...] Info) Description 02/28/2025 13:00 EDT Office Visit [facility] Surgical Oncology - [address] [address] Maeve Morales, 111 [facility], [address] [place] [phone] documented as of this encounter Visit Diagnoses Not on filedocumented in this encounter Care Teams Mattress Filling Machine Tender Relationship Specialty Start Date End Date Batsheva Lira FNP [address] [phone] PCP - General 02/19/20 07/21/22 documented as of this encounter
--- OUTSIDE RECORDS SUMMARY | 2024-05-04 01:29 | XMS_ITS | Encounter Summary ---
Author Organization [facility] Address [address] [place] [address] Care Team Providers Care Line Helper Name Role Phone Batsheva Lira JOHN Primary Care Provider [phone] Reason for Visit * Reason Onset Date Comments Coordination Of Care 02/17/2021 Encounter Details Date Type Department Care Team (Late st Contact Info) Description 02/17/2021 Telephone [facility] Cancer Center Hematology & Oncology - [facility] [address] [place], [place] [address] Vivian Brito, RN Coordination Of Care Social [...] Miscellaneous Notes * Telephone Encounter - Vivian Brito RN - 02/17/2021 0946 EDT Per request of [...] [facility] Surgical Oncology - [address] [address] Maeve Morales, DO 111 [facility], [facility], [address] [place] [phone] documented as of this encounter Visit Diagnoses Not on filedocumented in this encounter Care Teams Line Helper Relationship Specialty Start Date End Date Batsheva Lira FNP [address] [phone] PCP - General 02/19/20 07/21/22 documented as of this encounter
--- OUTSIDE RECORDS SUMMARY | 2024-05-04 01:29 | XMS_ITS | Encounter Summary ---
Author Organization [facility] Address [address] [place] [address] Care Team Providers Care Assembler And Tester Electronics Name Role Phone Batsheva Lira JOHN Primary Care Provider Pam Germain MD Unavailable [phone] Janay Duran REPAIRER [employer] Primary Care Provider [phone] Inez Corado DO Primary Care Provid er Encounter Details Date Type Department Care Team (Late st Contact Info) Description 02/27/2021 Specialty Pharmacy [facility] - Main [place] [address] [place], [place] [phone] Petros Vega, [facility] Social History Tobacco Use Types Packs/Day [...] [facility] Surgical Oncology - [address] [phone] Maeve Morales, DO 111 [facility], Level 2 [place] [address] documented as of this encounter Visit Diagnoses Not on filedocumented in this encounter Care Teams Assembler And Tester Electronics Relationship Specialty Start Date End Date Batsheva Lira FNP [facility] [address] [phone] PCP - General 02/19/20 07/21/22 Janay Duran APRN [address] [place] [address] 2 [place] [phone] PCP - General Family Medicine - Primary Care 07/22/22 02/12/24 Inez Corado DO [address] [place] [phone] PCP - General Family Medicine - Primary Care 02/13/24 Pam Germain MD [address] [place] [address] 2 [place] [phone] Medical Oncology 03/22/22 documented as of this encounter
--- OUTSIDE RECORDS SUMMARY | 2024-05-04 01:29 | XMS_ITS | Encounter Summary ---
Author Organization [facility] Address [address] [place] [address] Care Team Providers Care Public Health Policy Analyst Name Role Phone Batsheva Lira JOHN Primary Care Provider [phone] Encounter Details Date Type Department Care Team [...] Visit [facility] Surgical Oncology - [address] [address] Maeve Morales, DO 111 [facility], [address] [place] [phone] documented as of this encounter Visit Diagnoses Not on filedocumented in this encounter Care Teams Public Health Policy Analyst Relationship Specialty Start Date End Date Batsheva Lira FNP [address] [phone] PCP - General 02/19/20 07/21/22 documented as of this encounter
--- OUTSIDE RECORDS SUMMARY | 2024-05-04 01:29 | XMS_ITS | Encounter Summary ---
Author Organization [facility] Address [address] [place] [address] Care Team Providers Care Lead Coater Name Role Phone Batsheva Lira JOHN Primary Care Provider [phone] Encounter Details Date Type Department Care Team (Late st Contact Info) Description 01/27/2021 Orders Only [facility] Cancer Center Hematology & Oncology - [address] [address] Vivian Brito, RN Malignant neoplasm of upper-inner [...] Description 02/28/2025 13:00 EDT Office Visit [facility] Surgical Oncology - [address] [address] Maeve Morales, DO 111 [facility], [address] [place] [phone] documented as of this encounter Visit Diagnoses Diagnosis Malignant 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, estrogen receptor negative (HCC-CMS)- Primary documented in this encounter Care Teams Lead Coater Relationship Specialty Start Date End Date Batsheva Lira FNP [address] [place] [phone] PCP - General 02/19/20 07/21/22 documented as of this encounter
--- OUTSIDE RECORDS SUMMARY | 2024-05-04 01:29 | XMS_ITS | Encounter Summary ---
Author Organization [facility] Address [address] [place] [address] Care Team Providers Care Assistant Store Leader Name Role Phone Batsheva Lira JOHN Primary Care Provider [phone] Reason for Visit * Reason Onset Date Comments Social Work 01/28/2021 medical letter Encounter Details Date Type Department Care Team (Late st Contact Info) Description 01/28/2021 Telephone [facility] Cancer Center Hematology & Oncology - [address] [phone] Veronique Dye Social Work (medical letter) Social [...] Telephone Encounter - Veronique Dye - 01/28/2021 7407 EDT Pt messaged me that her unemployment [...] and shared that she spoke with a outside energy sales representatives from [employer] and was told that she [...] option. I will check with Yoel Antunez, RADHA to gather info re: ability to work on oral chemo and stage of disease. Will also discuss with my SW colleagues and will get back to pt. documented in this encounter Plan of Treatment Upcoming Encounters Date Type Department Care Team (Late st Contact Info) Description 02/28/2025 13:[address] [facility] Surgical Oncology - [address] [address] Maeve Morales, DO [address] [place] [address], Level [address] [place] [address] documented as of this encounter Visit Diagnoses Not on filedocumented in this encounter Care Teams Assistant Store Leader Relationship Specialty Start Date End Date Batsheva Lira FNP [address] [phone] PCP - General 02/19/20 07/21/22 documented as of this encounter
--- OUTSIDE RECORDS SUMMARY | 2024-05-04 01:29 | XMS_ITS | Encounter Summary ---
Author Organization [facility] Address [address] [place] [address] Care Team Providers Care Internal Combustion Engine Assembler Name Role Phone Batsheva Lira JOHN Primary Care Provider [phone] Reason for Visit * Reason Comments Follow-up Encounter Details Date Type Department Care Team (Late st Contact Info) Description 01/27/2021 10:00 EDT Office Visit [facility] Cancer Center Hematology & Oncology - Main [place] [address] [place] [address] [place] [address] [place] [phone] Malignant neoplasm of upper-inner quadrant of [...] Amarliys Michaud RN * Do you have serious [...] 7 days. 112 Tablet 5 02/06/2021 1 documented in this encounter Progress Notes * Queenie Conde MD - 01/27/2021 1000 EDT REASON FOR OFFICE VISIT Austin is a 45 y.o. 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 Given her triple negative histology??she began??starting taxol/carboplatinum as part of the SIKOV Regimen??on July 22, 2020.?? Genetic testing was negative( a 9 gene panel performedthrough [employer] was performed ). Bilateral mastectomies performed on [...] is otherwise without new??constitutional, cardiovascular, pulmonary, GI, ,MILITARY EXCHANGE WIRELESS MANAGER, musculoskeletal, psychiatric, neurologic, endocrine, or heme symptoms. [...] his 90s. ??Her paternal relatives are of [place] descent. DIAGNOSTIC DATA Lab Results Component Value [...] Info) Description 02/28/2025 13:00 EDT Office Visit [facility] Surgical Oncology - [address] [address] Maeve Morales, DO [address] [place] [address], Level [address] [place] [address] documented as of this encounter [...] 6.13 4.00 - 12.40 K/cmm 01/27/2021 12:01 [facility] RBC 4.63 3.86 - 5.04 M/cmm 01/27/2021 12:01 [facility] Hemoglobin 14.3 11.6 - 15.2 gm/dL 01/27/2021 12:01 [facility] HCT 43.0 34.9 - 44.4 % 01/27/2021 12:01 [facility] MCV 93 81 - 98 fl 01/27/2021 12:01 [facility] MCH 30.9 26.7 - 33.3 pg 01/27/2021 12:01 [facility] MCHC 33.3 32.1 - 35.9 gm/dL 01/27/2021 12:01 [facility] RDW-CV 12.8 <14.7 % 01/27/2021 12:01 [facility] RDW-SD 43.7 <50.4 fl 01/27/2021 12:01 [facility] PLT 259 141 - 377 K/cmm 01/27/2021 12:01 [facility] MPV 9.5 9.5 - 12.7 fl 01/27/2021 12:01 [facility] % Neutrophils 58.7 % 01/27/2021 12:01 [facility] Absolute Neutrophils 3.60 2.20 - 8.85 K/cmm 01/27/2021 12:01 [facility] Type of Differential: Auto 01/27/2021 12:01 [facility] Blood VENOUS BLOOD / Unknown Venipuncture / Unknown 01/27/2021 11:41 EDT 01/27/2021 11:48 EDT us Queenie Conde MD PACKAGES & DNA PROBE ORDERABLES Final Result [facility] [address] [place] [address] * (ABNORMAL) COMPREHENSIVE METABOLIC PANEL (ONCOLOGY USE ONLY-INC MG) (01/27/2021 11:41 EDT) Sodium 140 136 - 145 mmol/L 01/27/2021 12:10 [facility] Potassium 4.2 3.5 - 5.0 mEq/L 01/27/2021 12:10 [facility] Chloride 104 96 - 110 mEq/L 01/27/2021 12:10 [facility] CO2 Total 21(L) 22 - 32 mEq/L 01/27/2021 12:10 [facility] Glucose 121(H) 70 - 100 mg/dL 01/27/2021 12:10 [facility] BUN 16 10 - 26 mg/dL 01/27/2021 12:10 [facility] Creatinine 0.45(L) 0.52 - 1.04 mg/dL 01/27/2021 12:10 [facility] eGFR 121 >60 mL/min/1.7 3m2 01/27/2021 12:10 [facility] Comment:eGFR calculated mata asif CKD-EPI equation for non- Americans. Multiply eGFR by 1.16 for patients. Total Protein 8.0 6.3 - 8.2 g/dL 01/27/2021 12:10 [facility] Albumin 5.1(H) 3.4 - 4.9 g/dL 01/27/2021 12:10 [facility] Alkaline Phosphatase 151(H) 38 - 126 U/L 01/27/2021 12:10 [facility] AST 121(H) 15 - 46 U/L 01/27/2021 12:10 [facility] ALT 158(H) <35 U/L 01/27/2021 12:10 [facility] Bilirubin, Total <0.5 <1.4 mg/dL 01/28/20 12:10 [facility] Calcium 10.0 8.5 - 10.5 mg/dL 01/27/2021 12:10 [facility] Calculated Calcium 9.1 8.5 - 10.5 mg/dL 01/27/2021 12:10 [facility] Magnesium 1.9 1.7 - 2.8 mg/dL 01/27/2021 12:10 [facility] Blood VENOUS BLOOD / Unknown Venipuncture / Unknown 01/27/2021 11:41 EDT 01/27/2021 11:48 EDT Queenie Conde MD CHEMISTRY & BLOOD GAS ORDERABLES Final Result [facility] [address] [place] [address] * COMPLETE BLOOD COUNT AND DIFFERENTIAL (01/27/2021 11:41 EDT) WBC 6.13 4.00 - 12.40 K/cmm 01/27/2021 12:01 [facility] RBC 4.63 3.86 - 5.04 M/cmm 01/27/2021 12:01 [facility] Hemoglobin 14.3 11.6 - 15.2 gm/dL 01/27/2021 12:01 [facility] HCT 43.0 34.9 - 44.4 % 01/27/2021 12:01 [facility] MCV 93 81 - 98 fl 01/27/2021 12:01 [facility] MCH 30.9 26.7 - 33.3 pg 01/27/2021 12:01 [facility] MCHC 33.3 32.1 - 35.9 gm/dL 01/27/2021 12:01 [facility] RDW-CV 12.8 <14.7 % 01/27/2021 12:01 [facility] RDW-SD 43.7 <50.4 fl 01/27/2021 12:01 [facility] PLT 259 141 - 377 K/cmm 01/27/2021 12:01 [facility] MPV 9.5 9.5 - 12.7 fl 01/27/2021 12:01 [facility] % Neutrophils 58.7 % 01/27/2021 12:01 [facility] % Lymphocytes 23.8 % 01/27/2021 12:01 [facility] % Monocytes 9.8 % 01/27/2021 12:01 [facility] % Eosinophils 6.5 % 01/27/2021 12:01 [facility] % Basophils 1.0 % 01/27/2021 12:01 [facility] % Immature Grans 0.2 % 01/28/20 12:01 [facility] Absolute Neutrophils 3.60 2.20 - 8.85 K/cmm 01/27/2021 12:01 [facility] Absolute Lymphocytes 1.46 1.09 - 3.30 K/cmm 01/27/2021 12:01 [facility] Absolute Monocytes 0.60 0.10 - 0.80 K/cmm 01/27/2021 12:01 [facility] Absolute Eosinophils 0.40 0.03 - 0.61 K/cmm 01/27/2021 12:01 [facility] ABS Basophils 0.06 0.01 - 0.11 K/cmm 01/27/2021 12:01 [facility] Absolute Immature Grans 0.01 0.00 - 0.06 K/cmm 01/27/2021 12:01 [facility] Type of Differential: Auto 01/27/2021 12:01 [facility] Blood VENOUS BLOOD / Unknown Venipuncture / Unknown 01/27/2021 11:41 EDT 01/27/2021 11:48 EDT us Queenie Conde MD PACKAGES & DNA PROBE ORDERABLES Final Result [facility] [address] [place] [address] documented in this encounter Visit Diagnoses Diagnosis Malignant 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, estrogen receptor negative (HCC-CMS)- Primary documented in this encounter Orders Lab Orders Without Results Count Last Ordered D ate First Ordered Date COMPREHENSIVE METABOLIC PANEL (CMP) 1 01/27 documented in this encounter Care Teams Internal Combustion Engine Assembler Relationship Specialty Start Date End Date Batsheva Lira FNP [address] [phone] PCP - General 02/19/20 07/21/22 documented as of this encounter
--- OUTSIDE RECORDS SUMMARY | 2024-05-04 01:29 | XMS_ITS | Encounter Summary ---
Author Organization [facility] Address [address] [place] [address] Care Team Providers Care Sinker Puller Name Role Phone Batsheva Lira JOHN Primary Care Provider [phone] Reason for Visit * Reason Comments Tissue Horticulturalist Fill Bilateral TE fill Encounter Details Date Type Department Care Team (Latest Contact Info) Description 02/27/2021 15:30 EDT Post-op Visit [facility] Plastic, Reconstructive & Cosmetic Surgery - [address], [address] [place] [address] Hernán Yuen MD [address] [place] [address] [place] [phone] Surgery follow-up (Primary Dx) Social History [...] documented in this encounter Progress Notes * Hernán Yuen [...] for repeat fill with Dr. Carlos Alberto Galdamez. MD Kj supervisor shop Division of Plastic, Reconstructive, and Cosmetic Surgery [facility] documented in this encounter Plan of Treatment Upcoming Encounters Date Type Department Care Team (Late st Contact Info) Description 02/28/2025 13:00 EDT Office Visit [facility] Surgical Oncology - [address] [address] Maeve Morales, 111 [facility], [facility], Level 2 [place] [phone] documented as of this encounter Visit Diagnoses Diagnosis Surgery follow-up- Primary Follow-up examination, following unspecified surgery documented in this encounter Care Teams Sinker Puller Relationship Specialty Start Date End Date Batsheva Lira FNP [address] [address] PCP - General 02/19/20 07/21/22 documented as of this encounter
--- OUTSIDE RECORDS SUMMARY | 2024-05-04 01:29 | XMS_ITS | Encounter Summary ---
Author Organization [facility] Address [address] [place] [address] Care Team Providers Care Director Bioinformatics Name Role Phone Batsheva Lira JOHN Primary Care Provider [phone] Reason for Visit * Reason Comments Tumor Board * Consult (Routine) - New Request Specialty Diagnoses / Procedures Referred By Jen gonzáles Referred To Contact Hematology and Oncology Diagnoses Malignant 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, estrogen receptor negative (HCC-CMS) Queenie Conde MD Phone: tel: fax: Referral ID Status Reason Start Date Expiration Date Visits Requested Visits Authorized [id number] New Request Specialty Services Required 01/07/2021 1 1 Encounter Details Date Type Department Care Team (Late st Contact Info) Description 01/22/2021 12:15 EDT Tumor Board [facility] Hematology & Oncology - [facility] [address] [place] [address] Malignant neoplasm of upper-inner quadrant of left [...] documented in this encounter Progress Notes * Kenia Cline [...] Info) Description 02/28/2025 13:00 EDT Office Visit [facility] Surgical Oncology - [address] [address] Maeve Morales, [address] [place] [address], [facility] [address] [place] [phone] Scheduled Referrals Name Type Priority Associated Diagnoses Orde r Schedule AMB CONSULT/FOLLOW UP TUMOR BOARD Outpatient Referral Routine Malignant 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, estrogen receptor negative (HCC-CMS) Ordered: 01/07/2021 documented as of this encounter Visit Diagnoses Diagnosis Malignant 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, estrogen receptor negative (HCC-CMS)- Primary documented in this encounter Care Teams Director Bioinformatics Relationship Specialty Start Date End Date Batsheva Lira FNP [address] [place] [phone] PCP - General 02/19/20 07/21/22 documented as of this encounter
--- OUTSIDE RECORDS SUMMARY | 2024-05-04 01:29 | XMS_ITS | Encounter Summary ---
Author Organization [facility] Address [address] [place] [address] Care Team Providers Care Supervisor Product Inspection Name Role Phone Batsheva Lira JOHN Primary Care Provider [phone] Reason for Visit * Reason Comments Post-OP Follow Up First fill,, amelia other options Encounter Details Date Type Department Care Team (Latest Contact Info) Description 02/05/2021 13:00 EDT Post-op Visit [facility] Plastic, Reconstructive & Cosmetic Surgery - [address], [address] [place] [address] Juanito Carcamo MD [address] [place] [phone] Surgery follow-up (Primary Dx) Social History [...] 12/24/2020 17:15 EDT Amarilys Valentin RN * Do you have serious difficulty [...] in this encounter Progress Notes * Katia Brown [...] system the port was accessed and the plumbing hardware assembler filled with 75 cc of injectable saline [...] Office Visit [facility] Surgical Oncology - [address] [id number] Maeve Morales, 111 [facility], [facility], Level [address] [place] [phone] documented as of this encounter Visit Diagnoses Diagnosis Surgery follow-up- Primary Follow-up examination, following unspecified surgery documented in this encounter Care Teams Supervisor Product Inspection Relationship Specialty Start Date End Date Batsheva Lira FNP [address] [address] PCP - General 02/19/20 07/21/22 documented as of this encounter
--- OUTSIDE RECORDS SUMMARY | 2024-05-04 01:29 | XMS_ITS | Encounter Summary ---
Author Organization [facility] Address [address] [place] [address] Care Team Providers Care Flight Service Specialist Name Role Phone Batsheva Lira JOHN Primary Care Provider [phone] Encounter Details Date Type Department Care Team (Late st Contact Info) Description 01/28/2021 Specialty Pharmacy [facility] - [facility] [address] [place], [place] [id number] Petros Vega, [facility] Social History Tobacco Use Types Packs/Day [...] Description 02/28/2025 13:00 EDT Office Visit [facility] Surgical Oncology - [address] [phone] Maeve Morales, 111 [facility], Level 2 [place] [phone] documented as of this encounter Visit Diagnoses Not on filedocumented in this encounter Care Teams Flight Service Specialist Relationship Specialty Start Date End Date Batsheva Lira FNP [address] [phone] PCP - General 02/19/20 07/21/22 documented as of this encounter
--- OUTSIDE RECORDS SUMMARY | 2024-05-04 01:29 | XMS_ITS | Encounter Summary ---
Author Organization [facility] Address [address] [place] [address] Care Team Providers Care Electric Mule Driver Name Role Phone Bastheva Lira JOHN Primary Care Provider [phone] Reason for Visit * Reason Comments New Patient Visit * Consult (Routine) - Order Cancelled Specialty Diagnoses / Procedures Referred By Jen gonzáles Referred To Contact Hematology and Oncology Diagnoses Malignant neoplasm of female breast, unspecified estrogen receptor status, unspecified laterality, unspecified site of breast ([facility]) Queenie Conde MD Phone: tel: fax: [facility] Hematology & Oncology [address] [address] Phone: tel: fax: Referral ID Status Reason Start Date Expiration Date Visits Requested Visits Authorized [id number] Order Cancelled Specialty Services Required 07/15/2020 1 1 Encounter Details Date Type Department Care Team (Late st Contact Info) Description 02/03/2021 11:00 EDT Telemedicine [facility] Hematology & Oncology [address] [phone] Yulissa Martines, [address], [facility] [address] [place] [phone] Adjustment reaction with anxiety (Primary Dx) Social [...] Entry Date Author No 12/24/2020 17:15 Amarilys Mihcaud, RN documented in this encounter Plan of Treatment Upcoming Encounters Date Type Department Care Team (Late st Contact Info) Description 02/28/2025 13:00 EDT Office Visit [facility] Surgical Oncology - [address] [address] Maeve Morales, DO [address] [facility], [facility], Level [address] [place] [phone] documented as of this encounter Visit Diagnoses Diagnosis Adjustment reaction with anxiety- Primary Adjustment disorder with anxiety documented in this encounter Care Teams Electric Mule Driver Relationship Specialty Start Date End Date Batsheva Lira FNP [address] [phone] PCP - General 02/19/20 07/21/22 documented as of this encounter
--- OUTSIDE RECORDS SUMMARY | 2024-05-04 01:29 | XMS_ITS | Encounter Summary ---
Author Organization [facility] Address [address] [place] [address] Care Team Providers Care Cut Off Sawyer Log Name Role Phone Batsheva Lira JOHN Primary Care Provider [phone] Reason for Visit * Reason Onset Date Comments Social Work 01/29/2021 Encounter Details Date Type Department Care Team (Late st Contact Info) Description 01/29/2021 Telephone [facility] Hematology & Oncology - [facility] [address] [place], [place] [phone] Veronique Dye Social Work Social History Tobacco [...] needs at this time. Plan- Referral to [facility] documented in this encounter Plan of Treatment Upcoming Encounters Date Type Department Care Team (Late st Contact Info) Description 02/28/2025 13:00 EDT Office Visit [facility] Surgical Oncology - [facility] [address] [place], [place] [address] Maeve Morales, 111 [facility], Level [address] [place] [phone] documented as of this encounter Visit Diagnoses Not on filedocumented in this encounter Care Teams Cut Off Sawyer Log Relationship Specialty Start Date End Date Batsheva Lira FNP [address] [phone] PCP - General 02/19/20 07/21/22 documented as of this encounter
--- OUTSIDE RECORDS SUMMARY | 2024-05-04 01:30 | XMS_ITS | Encounter Summary ---
Author Organization [facility] Address [address] [place] [address] Care Team Providers Care Doctor Assistant Name Role Phone Batsheva Lira JOHN Primary Care Provider [phone] Reason for Referral * Consult (Routine) - New Request Specialty Diagnoses / Procedures Referred By Jen gonzáles Referred To Contact Hematology and Oncology Diagnoses Malignant 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, estrogen receptor negative (HCC-CMS) Queenie Conde MD Phone: tel: fax: Referral ID Status Reason Start Date Expiration Date Visits Requested Visits Authorized [id number] New Request Specialty Services Required 01/07/2021 1 1 Question Answer Location [facility] Tumor Board Breast Working Stage II [...] Info) Description 01/06/2021 11:30 EDT Office Visit [facility] Cancer Center Hematology & Oncology - [facility] [place] [address] [place] [address] [place] [address] [address] Malignant neoplasm of upper-inner quadrant of left [...] breast cancer. 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 ??Her paternal relatives are of [place] descent. Objective: BP 132/81 Pulse 91 Temp [...] Office Visit [facility] Surgical Oncology - [address] [address] Maeve Morales, 111 [facility], Level 2 [place] [address] Scheduled Referrals Name Type Priority [...] Primary documented in this encounter Care Teams Doctor Assistant Relationship Specialty Start Date End Date Batsheva Lira FNP [address] [phone] PCP - General 02/19/20 07/21/22 documented as of this encounter
--- OUTSIDE RECORDS SUMMARY | 2024-05-04 01:30 | XMS_ITS | Encounter Summary ---
Author Organization [facility] Address [address] [place] [address] Care Team Providers Care Rn Transitional Name Role Phone Batsheva Lira JOHN Primary Care Provider [phone] Reason for Referral * Radiology Services (Routine) - Closed Specialty Diagnoses / Procedures Referred By Jen gonzáles Referred To Contact Nuclear Medicine Diagnoses Malignant neoplasm of left breast in female, estrogen receptor negative, unspecified site of breast (HCC-CMS) Procedures NM INJECTION ONLY SENTINEL NODE BREAST Maeve Morales DO Phone: tel: fax: Referral ID Status Reason Start Date Expiration Date Visits Re quested Visits Authorized [id number] Closed 12/19/2020 1 1 Reason for Visit * Reason Onset Date Comments Pre-procedure 12/18/2020 Nuclear medicine injection orders Encounter Details Date Type Department Care Team (Late st Contact Info) Description 12/18/2020 Orders Only [facility] Surgical Oncology - [address] [phone] Maeve Morales DO 111 [facility], [facility], Level 2 [place] [phone] Malignant neoplasm of left breast in female, [...] hearing? Answer Date of Assessment Author No 11/21/2020 23:37 Jennie Martinez RN * Are you blind or do you have serious difficulty seeing, even when wearing glasses? Answer Date of Assessment Author No 11/21/2020 23:37 Jennie Martinez RN * Do you have serious difficulty walking or climbing stairs? (5 years old or older) Answer Date of Assessment Author No 11/21/2020 23:37 Jennie Martinez RN * Do you have difficulty dressing or bathing? (5 years old or older) Answer Date of Assessment Author No 11/21/2020 23:37 Jennie Martinez RN * Because of a physical, mental, or emotional condition, do you have difficulty doing errands alone such as visiting a doctor's office or shopping? (15 years old or older) Answer Date of Assessment Author No 11/21/2020 23:37 Jennie Martinez RN documented as of this encounter Mental Status * Because of a physical, mental, or emotional condition, do you have serious difficulty concentrating, remembering, or making decisions? (5 years old or older) Answer Entry Date Author No 11/21/2020 23:37 EDT Jennie Stokes RN documented in this encounter Plan of Treatment Upcoming Encounters Date Type Department Care Team (Late st Contact Info) Description 02/28/2025 13:00 EDT Office Visit [facility] Surgical Oncology - [facility] [address] [place], [place] [address] Maeve Morales, 111 [facility], [facility], Level [address] [place] [phone] documented as of this encounter Results * [...] overthe breast tumor. No images were obtained. us Maeve Morales DO IMG NM ORDERABLES Final Res ult documented in this encounter Visit Diagnoses Diagnosis Malignant neoplasm of left breast in female, estrogen receptor negative, unspecified site of breast (HCC-CMS)- Primary Malignant neoplasm of left breast in female, estrogen receptor negative, unspecified site of breast (HCC-CMS) documented in this encounter Care Teams Rn Transitional Relationship Specialty Start Date End Date Batsheva Lira FNP [address] [address] PCP - General 02/19/20 07/21/22 documented as of this encounter
--- OUTSIDE RECORDS SUMMARY | 2024-05-04 01:30 | XMS_ITS | Encounter Summary ---
Author Organization [facility] Address [address] [place] [address] Care Team Providers Care Kiln Fireman Name Role Phone Batsheva Lira JOHN Primary Care Provider [phone] Reason for Visit * Reason Onset Date Comments Breast Cancer 11/25/2020 PT referral to e valuate and treat Lymphedema for dianosis: BRCA. Encounter Details Date Type Department Care Team (Late st Contact Info) Description 12/09/2020 Telephone [facility] Rehabilitation Therapy - [address] [address] Betsey Miller, RN [address] [place] [address] Breast Cancer (PT referral to evaluate and [...] Date of Assessment Author No 11/21/2020 23:37 EDT Jennie Stokes RN * Are you blind or do you have serious difficulty seeing, even when wearing glasses? Answer Date of Assessment Author No 11/21/2020 23:37 EDJennie Cantu RN * Do you have serious difficulty walking or climbing stairs? (5 years old or older) Answer Date of Assessment Author No 11/21/2020 23:37 Jennie Martinez RN * Do you have difficulty dressing or bathing? (5 years old or older) Answer Date of Assessment Author No 11/21/2020 23:37 EDJennie Cantu RN * Because of a physical, mental, [...] Answer Entry Date Author No 11/21/2020 23:37 Jennie Martinez RN documented in this encounter Miscellaneous Notes [...] [facility] Surgical Oncology - [address] [address] Maeve Morales, 111 [facility], Level [address] [place] [phone] documented as of this encounter Visit Diagnoses Not on filedocumented in this encounter Care Teams Kiln Fireman Relationship Specialty Start Date End Date Batsheva Lira FNP [address] [phone] PCP - General 02/19/20 07/21/22 documented as of this encounter
--- OUTSIDE RECORDS SUMMARY | 2024-05-04 01:30 | XMS_ITS | Encounter Summary ---
Author Organization [facility] Address [address] [place] [address] Care Team Providers Care Manager Hospice Name Role Phone Batsheva Lira JOHN Primary Care Provider [phone] Reason for Visit * Auth/Cert Specialty Diagnoses / Procedures Referred By Jen gonzáles Referred To Contact Diagnoses Malignant neoplasm of left breast in female, estrogen receptor negative, unspecified site of breast ([facility]) Procedures NC MASTECTOMY, SIMPLE, COMPLETE NC BX/REMV,LYMPH NODE,DEEP AXILL NC INTRAOPERATIVE SENTINEL LYMPH NODE ID W DYE INJECTION NC INJ RADIOACTIVE TRACER FOR ID OF SENTINEL NODE NC RMVL ZAHRAA CTR VAD W/SUBQ PORT/ACETONE RECOVERY WORKER CTR/PRPH INSJ NC TISSUE PATCHING MACHINE OPERATOR PLACEMENT BREAST RECONSTRUCTION NC IMPLNT BIO IMPLNT FOR SOFT TISSUE REINFORCEMENT NC ALLODERM Maeve Morales, DO [address] [place] [address] [address] [place] [address] Phone: tel: fax: Referral ID Status Reason Start Date Expiration Date Visits Re quested Visits Authorized [id number] 10/27/2020 05/15/2021 1 1 Encounter Details Date Type Department Care Team (Late st Contact Info) Description 12/24/2020 7:25 EDT - 12/24/2020 17:39 EDT Surgery [facility] OR [address] [place], [place] [address] Maeve Morales, DO [address] [place], [place] [address]on, Level 2 [place] [address] Bilateral skin sparing mastectomies, left sentinel lymph node biopsy, right chest wall port removal [[id number] (CPT??)] Surgery Details Date/Time Status Location OR Service Patient Class Case Class Case Type Trauma Case? 12/24/2020 0725 Posted [facility] OR [facility] Oncology Extended Stay H - Elective Panel 1 Procedure [...] Op Region Wound Class Comments bilateral tissue picking machine operator helper reconstruction with allograft of breasts after mastectomy [...] Time Taken Comments Blood Pressure 103/72 12/24/2020 1641 EDT Pulse 86 12/24/2020 1641 EDT Temperature [...] Michaud RN documented in this encounter Discharge Summaries * Yanely Ambrosio [...] Date Noted ??? *Breast cancer in female ([facility]) 12/24/2020 Resolved Hospital Problems No resolved problems to display. Principal Procedure: 1. Bilateral skin sparing mastectomies and left sentinel lymph node biopsy, port removal (Dr. Morales) 2. bilateral tissue picking machine operator helper reconstruction with allograft of breasts after mastectomy (Dr. Carcamo) Date: 12/24/2020 Secondary Procedures: none Hospital Course Austin Squires is a 45 year old female with a history of left-sided triple negative breast cancer whounderwent bilateral skin sparing mastectomies and left sentinel lymph node biopsy and port removal by Dr. Morales, and bilateral tissue picking machine operator helper reconstruction with allograft of breasts after mastectomy [...] Administered Date(s) Administered ??? Covid-19 mRNA Vaccine (Trovit COVID-19) PF 0.3 ml IM (12 yrs+) [...] Procedure Component Value Units Date/Time SURGICAL PATHOLOGY [[id number]] Collected: 12/24/20 0920 Lab Status: In process Specimen: Tissue from Breast, right; Tissue from Breast, right; Tissue from Lymph Node, Holmen; Tissue from Lymph Node, Holmen; Tissue from Breast, left Updated: 12/24/20 1413 Relevant Studies at Discharge n/a Last Lab Results at Discharge n/a Discharge Follow Up Upcoming Appointments Jan 01, 2021 10:00 Post Op Visit with Oksana Wilkins PA-C [facility] Plastic, Reconstructive & Cosmetic Surgery - [place] (--) [address] [place] [address] Jan 06, 2021 10:20 Post Op Visit with Maeve Morales DO [facility] Surgical Oncology - [facility] ([facility]) [address] [facility] [id number] Jan 06, 2021 11:30 Follow Up Visit with Queenie Conde MD [facility] Hematology & Oncology - [facility] ([facility] [place]) [address] [place] [address] Jan 14, 2021 9:00 Steps to Wellness with Katia Hughes PT [facility] Rehabilitation Therapy [facility] (--) [address] [facility] [phone] Jan 26, 2021 9:15 COMPLEX DECONGESTIVE EVAL with Dary Gómez, PT [facility] Rehabilitation Therapy - [facility] (--) [address] [facility] [address] Yanely Ambrosio MD, PGY-1 Plastic Surgery Pager # [phone] Cosigned by Juanito Carcamo MD FACS at 12/27/2020 22:03 EDT documented in this encounter Medications at Time of Discharge acetaminophen (TYLENOL) 500 mg tablet Take 2 Tablets by mouth every 6 hours. 12/25/2020 1 amLODIPine (NORVASC) 2.5 mg tablet Take 2.5 mg by mouth daily. 2 cephalexin (KEFLEX) 500 mg capsule Take 1 capsule by mouth 4 times daily for 21 days. 84 capsule 12/25/2020 1 escitalopram oxalate (LEXAPRO) 10 mg tablet Take 30 mg by mouth daily. 3 HYDROmorphone (DILAUDID) 2 mg tablet Take 1-2 Tablets by mouth every 4 hours as needed for Pain. Daily Max: 24 mg 30 Tablet 12/25/2020 1 INTRAUTERINE DEVICE, IUD, INTRAUTERINE by intrauterine route. 2 lidocaine-priloca ine (EMLA) cream Apply to port site and cover, 1 hr before planned port access 25 g 1 08/13/2020 1 omeprazole (PRILOSEC) 40 mg capsule Take 1 Cap by mouth at bedtime. 30 Cap 2 10/08/2020 1 triamcinolone acetonide (KENALOG) 0.1 % pasteIndications: Malignant 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, estrogen receptor negative (HCC-CMS) Apply to affected area up to three times daily as needed for pain. 1 Tube 11/07/2020 1 documented as of this encounter Ordered Prescriptions Prescription Sig Dispense Quantity Refills Last Filled Start Date End Date cephalexin (KEFLEX) 500 mg capsule Take 1 capsule by mouth 4 times daily for 21 days. 84 capsule 12/25/2020 1 HYDROmorphone (DILAUDID) 2 mg tablet Take 1-2 Tablets by mouth every 4 hours as needed for Pain. Daily Max: 24 mg 30 Tablet 12/25/2020 1 acetaminophen (TYLENOL) 500 mg tablet Take 2 Tablets by mouth every 6 hours. 12/25/2020 1 documented in this encounter Discharge Disposition Disposition Code Departure Means Destination Home or Self Custodial documented in this encounter Progress Notes * Gertrudis Ortega - 12/25/2020 1216 EDT Initial Case Management/Social Work Assessment and Discharge Plan/Readmission Risk Assessment REASON FOR ADMISSION: Breast cancer in female (HCC-CMS) now POD 1 bilat mastectomy and picking machine operator helper placement Patient understands reason for admission: Yes PATIENT INFO VERIFIED: PCP, Contact Info, Address Type of housing (single family, condo, apartment, senior care, single room occupancy, [facility] funded hotel room, group senior care) - single family home Who does the [...] expects to be discharged to: Home CULTURAL, JEW and/or LANGUAGE factors affecting health care/discharge planning: Spiritual/Cultural Requests: None Language/Literacy Needs Do you need us to provide any communication aids or devices?: No Insurance Information: Medical Insurance: Yes Type of insurance: Medicaid, Other (See Comments) ([place] secondary) Medicaid Type: Community Nutrition: DISCHARGE RISK [...] Home Health Services: None DME Provider: Pharmacy: [facility]/pharmacy #[id number] - [place], [place] - [address] [place] [address] [facility] [address] [facility] ([facility]) - [address] [address] Home Health: Other: POST HOSPITAL TRANSITION PLAN: [...] to self care. Li Ortega RN CCM [id number] * Mihir Arriaga - 12/25/2020 0742 EDT Surgical Oncology Progress Note DOS: 12/25/2020 LOS: 0 days (12/24/2020) CC: Breast cancer in female ([facility]) Procedure: 1. Bilateral skin sparing mastectomies and left sentinel lymph node biopsy, port removal ([place]) 2. bilateral tissue picking machine operator helper reconstruction with allograft of breasts after mastectomy (Carlos Alberto) 24-Hour Events: -to OR for above -admitted to B6 for observation Subjective: Austin is feeling well [...] skin sparing mastectomies, port removal, and tissue picking machine operator helper placement, recovering well on the floor with [...] port removal (Dr. Morales) 2. bilateral tissue picking machine operator helper reconstruction with allograft of breasts after mastectomy [...] documented below Lida Enriquez MD 12/24/2020 7:15 Cosigned by Maeve Morales DO at 12/24/2020 11:58 EDT Source Note - Maeve Morales DO - [...] and cover, 1 hr before planned port qealoc98 g 1 ??? OLANZapine (ZYPREXA) 5 mg [...] 1404 EDT Operative Note Date: 12/24/2020 Location: [facility] OR Name: Austin Squires, : 1975, PREOPERATIVE DIAGNOSIS: (1) left breast Cancer POSTOPERATIVE DIAGNOSIS: (1) left breast Cancer PROCEDURE : 1. Immediate Bilateral Prepectoral Tissue International Logistics Manager Reconstruction with Allograft following mastectomy 2. Intraoperative [...] preoperatively. She has elected to undergo tissue picking machine operator helper with allograft reconstruction planned for the prepectoral position following the mastectomy. Signed informed [place] [employer] and signed informed [...] mm punch). This was contoured to the picking machine operator helper and secured with buried interrupted running3-0 PDS. [...] the orienting line drawn vertically on the picking machine operator helper was used to achieve very precise orientation of the picking machine operator helper. The central tab was then secured against the neoinframammary fold with a 2-0 PDS suture. Once this was seen to be in good position, the remaining 2nd and 4th tabs were then secured. Two 15-Setswana Attila drains were placed exiting laterally. These were sewn in with 3-0 nylon. Attention was then turned to the leftside. Here also a 2-0 PDS suture was placed medially and the medial tab was secured, the orienting line drawn vertically on the picking machine operator helper was used to achieve very precise orientation of the picking machine operator helper. The central tab was then secured against the neoinframammary fold with a 2-0 PDS suture. Once this was seen to be in good position, the remaining 2nd and 4th tabs were then secured. Two 15-Setswana Attila drains were placed exiting laterally. These were sewn in with 3-0 nylon. The patient was placed inthe seated position and symmetry was checked. The 750 cc [place] Artoura expanders were then accessed, de-aired and [...] lymph node biopsy. SURGEON: Maeve Morales DO NUMERICAL CONTROL DRILL PRESS OPERATOR: Lida Enriquez MD ANESTHESIA: General endotracheal [...] Dr Carcamo, who will be performing tissue picking machine operator helper based reconstruction. The patient tolerated our portion of the surgery well. Unless otherwise noted, there were no complications, no blood loss, no cultures obtained, no specimens removed, and no drains retained. Maeve Morales DO / Confirmation: [id number] Dictation ID: [id number] cc: documented in this encounter Miscellaneous Notes * Plan of Care - Valerie Morgan - 12/25/2020 1308 EDT Nursing Discharge Note D: Patient noted with discharge orders to: home. A: Prescriptions sent to [facility] pharmacy. Reviewed discharge instructions and prescriptions with [...] - 12/24/2020 1416 EDT Date: 12/24/2020 Location: [facility] OR Name: Austin Squires, : 1975, Diagnosis Pre-op Diagnosis * Malignant neoplasm of left breast in female, estrogen receptor negative, unspecified site of breast (HCC-CMS) [C50.912, Z17.1] Post-op Diagnosis * Malignant neoplasm of left breast in female, estrogen receptor negative, unspecified site of breast (HCC-CMS) [C50.912, Z17.1] Procedures bilateral tissue picking machine operator helper reconstruction with allograft of breasts after mastectomy [...] L and 2 in R axilla/breast Staff: Patient Services Coordinator: Joann Diaz, RADHA; Laurie Escalera, RN Relief Patient Services Coordinator: Vivian Hopkins, RADHA; Regina Doss RN Relief Scrub: August Scrub Person: Shira Bernardo Patient Nuclear Weapons Specialist: Shefali Ulloa Indications: Austin Squires is an [...] MD 12/24/2020 11:41 General Surgery PGY-5 Pager [phone] * PAT Note - Ghazala Garcia RN - 12/19/[address] Queenie Conde's 07/22/20 note, [...] 02/28/2025 13:00 EDT Office Visit [facility] Surgical Oncology - [address] [phone] Maeve Morales DO [address] [place] [address], [address] [place] [id number] Scheduled Referrals Name Type Priority Associated Diagnoses [...] 5 hours RECONSTRUCTION, BREAST, BILATERAL, WITH TISSUE PATCHING MACHINE OPERATOR INSERTION 12/24/2020 7:13 EDT Malignant neoplasm of [...] SCANNED (01/05/2021 7:49 EDT) 01/05/2021 7:49 EDT us Scan 2 Heel Wheeler PROCEDURE/MINOR SURGICAL OR DERABLES Final Result * IMPLANT RECORD - SCANNED (12/29/2020 11:11 EDT) 12/29/2020 11:1 1 EDT us Scan 2 Heel Wheeler PROCEDURE/MINOR SURGICAL OR DERABLES Final Result * ECG REPORT - SCANNED (12/29/2020 11:11 EDT) 12/29/2020 11:1 1 EDT us Scan 2 Heel Wheeler PROCEDURE/MINOR SURGICAL OR DERABLES Final Result * ECG REPORT - SCANNED (12/26/2020 12:24 EDT) 12/26/2020 12:2 4 EDT us Scan 2 Heel Wheeler PROCEDURE/MINOR SURGICAL OR DERABLES Final Result * EKG 12-LEAD (12/24/2020 18:29 EDT) 12/24/2020 18:2 9 EDT Narrative [facility] - 12/26/2020 12:17 EDT ? The ? Test Date: ?2020-12-24 Pat Name: ? AUSTIN SQUIRES ? Department: ?? Aisha Delgadillo ? Room: ? B688 Gender: ? Female ? Sales And Marketing Professional: ?? [id number] : ?1975 ? Requested By: ELBA LEBLANC Order Number: [id number] ? Reading MD: ?? LORI GRAVES MD ? Measurements Intervals ?Kewadin ? Rate: ? 80 ? P: ?54 NC: ? 189 ?QRS: ?16 QRSD: ? 81 ? T: ?5 QT: ? 437 ? QTc: ?506 ? Interpretive Statements SINUS RHYTHM MODERATE T-WAVE ABNORMALITY, CONSIDER ISCHEMIA PROLONGED QTC I reviewed the tracing and have either agreed or edited the findings in this report. Electronically Signed On 12-26-2020 12:17:58 EDT by LORI GRAVES MD. Procedure Note Lori Graves MD - 12/26/2020 The Test Date: 2020-12-24 Pat Name: AUSTIN SQUIRES Department: [place] [address] Room: [facility] Gender: Female Sales And Marketing Professional: [id number] : 1975 Requested By: ELBA LEBLANC Order Number: [id number] Reading MD: LORI GRAVES MD Measurements Intervals Kewadin Rate: 80 P: 54 NC: 189 QRS: 16 QRSD: 81 T: 5 QT: 437 QTc: 506 Interpretive Statements SINUS RHYTHM MODERATE T-WAVE ABNORMALITY, CONSIDER ISCHEMIA PROLONGED QTC I reviewed the tracing and have either agreed or edited the findings inthis report. Electronically Signed On 12-26-2020 12:17:58 EDT by LORI BUSTAMANTE. us Juan Nelson MD CARDIAC ECG ORDERABLES Fi nal Result [facility] * SURGICAL PATHOLOGY (12/24/2020 9:20 EDT) Note to Patient A healthcare provider will be contacting you to answer any questions you may have about these results, and discuss management options, if applicable. Before this can occur, your pathology results need to be compared with your breast imaging and clinical findings, a process that can take 1-3 business days. 12/30/2020 11:46 EDT [facility] Final Diagnosis Note to [...] (following therapy) Tumor Location: Upper inner quadrant Teodoro Combined Histologic Scores: Tubular differentiation: Score 3 [...] response. Lymph nodes: 0/2 (positive/total number examined) Holmen nodes: 2 (examined and included in total) 0 nodes with macrometastases 0 nodes with micrometastases 0 nodes with isolated tumor cell clusters only ER/ NC: ER negative; NC negative ([id number]) Her2/dayami: Negative (1+ by immunohistochemist ry) ([id number]) FINAL PATHOLOGIC DIAGNOSIS: A. BREAST, RIGHT, PROPHYLACTIC [...] D. LYMPH NOTE, SENTINEL, LEFT AXILLA, COUNT [id number], EXCISION BIOPSY: - One lymph node negative [...] - Prior biopsy site identified. 12/30/2020 11:46 [facility] Diagnosis Comment This patient was [...] as AJCC: ypT2 ypN0 pNR. 12/30/2020 11:46 [facility] Attestation There was significant resident/fellow involvement in the diagnostic evaluation of this case. By the signature below, the attending physician certifies that they have personally conducted a gross and/or microscopic examination of the described specimens and rendered or confirmed the above diagnosis. 12/30/2020 11:46 [facility] at 1146 Clinical History Malignant neoplasm of left breast in female, estrogen receptor negative, unspecified site of breast ([facility]) 12/30/2020 11:46 EDT [facility] Gross Description A. Received [...] No definitive nodules or lesions are present. Licensed Mortician sections are submitted as follows: INK DUDLEY Black-deep Blue-superficial BLOCK DUDLEY A1-nipple, perpendicular A2-lactiferous sinus, en face A3-A4-upper outer quadrant A5-A6 lower outer quadrant A7-A8-lower inner quadrant Y3-I14-rmkdu inner quadrant Time removed from patient: 12/24/2020 [...] of hemorrhage, necrosis, or residual tumor. Random district representative sections are submitted in B1-B8. C. Received fresh labeled with proper patient identification (initials H, R) and left axillary sentinel lymph node #1 count 5126 is a single lymph node (1.5 x 0.8 x 0.5 cm). The specimen is sectioned and submitted entirely in C1-C2. D. Received fresh labeled with proper patient identification (initials H, R) and left axillary sentinel lymph node #[id number] is a single lymph node (1.1 x [...] with a minimal amount of fibrous tissue. Licensed Mortician sections are submitted as follows: INK DUDLEY Black-deep Blue-superficial BLOCK DUDLEY E1-nipple, perpendicular E2-lactiferous sinus, en face E3-nearest deep margin E4-nearest superficial margin, including mass O9-C18-yhgosa mass B76-L63-xwvdq inner quadrant E13-E14 lower inner quadrant K58-J65-ixjsj outer quadrant N16-M85-zotzc outer quadrant Time removed from patient: 12/24/2020 1126 hrs. Time in formalin: 12/24/2020 1337 hrs. Time out of formalin: 19:00 hours 12/25/20 SOCORRO Fritz (ASCP)12/25/20 11:58 12/30/2020 11:46 [facility] Resident/Chris w: Dilia Mcmillan MD 12/30/2020 11:46 [facility] Performing Lab [facility] 11:46 [facility] Scanned Images 12/30/2020 11:46 [facility] Tissue ENTIRE RIGHT BREAST / [...] Unknown 12/24/2020 11:26 EDT 12/24/2020 14:13 EDT us Maeve Morales DO PATHOLOGY ORDERABLES Final Result Performing Organization Address [facility] Co de Phone Number [facility] [address] [place] [address] * TEST, URINE (12/24/2020 6:13 EDT) Test, Urine Negative Negative 12/24/2020 8:43 EDT [facility] Comment:False negative resul ts may occur in women who are beyond 5-8 weeks gestation. Diagnosis of should be based on a correlation of test results with typical clinical signs and symptoms. Urine URINE / Unknown Urine Collect / Unknown 12/24/2020 6:13 EDT 12/24/2020 8:37 EDT us Katy Sinclair MD URINALYSIS ORDERABLES Fi nal Result [facility] [address] [place] [address] * ECG REPORT - SCANNED (12/19/2020 11:49 EDT) 12/19/2020 11:4 9 EDT us Scan 2 Heel Wheeler PROCEDURE/MINOR SURGICAL OR DERABLES Final Result documented in this encounter Visit Diagnoses Diagnosis Breast cancer in female ([facility] Primary Malignant neoplasm of left breast in female, estrogen receptor negative, unspecified site of breast ([facility]) documented in this encounter Admitting Diagnoses Diagnosis Breast cancer in female ([facility]) documented in this encounter Administered Medications Inactive [...] on Tue12/25/20 at 0900, Until Discontinued, Routine Given 12/25/2020 8:00 EDT 20 mg HYDROmorphone (DILAUDID) tablet 2-4 mg 2-4 mg, oral, EVERY 4 HOURS PRN, Starting on Tue12/24/20 at 1702, Until Tue12/25/20 at 1604, Pain, Routine Given 12/25/2020 12:32 [...] to prep skin before insertion of tissue picking machine operator helper) sodium chloride 0.9 % irrigation (CANCELED) As [...] 12/25/2020 documented in this encounter Care Teams Manager Hospice Relationship Specialty Start Date End Date Batsheva Lira FNP [address] [phone] PCP - General 02/19/20 07/21/22 documented as of this encounter
--- OUTSIDE RECORDS SUMMARY | 2024-05-04 01:30 | XMS_ITS | Encounter Summary ---
Author Organization [facility] Address [address] [place] [address] Care Team Providers Care Rotary Operator Name Role Phone Batsheva Lira JOHN Primary Care Provider [phone] Reason for Referral * Specialty Diagnoses / Procedures Referred By Contac t Referred To Contact [address] [address] Phone: tel: Referral ID Status Reason Start Date Expiration Date Visits Re quested Visits Authorized Comments Please see Dr. Carcamo in 7-10 days or as scheduled. Call [phone] for questions or concerns. You have an appointment with Oksana QUINTANILLA on January 01. * Specialty Diagnoses / Procedures Referred By Contac t Referred To Contact [address] [address] Phone: tel: Referral ID Status Reason Start Date Expiration [...] Specialty Diagnoses / Procedures Referred By Jen t Referred To Contact Diagnoses Malignant neoplasm of left breast in female, estrogen receptor negative, unspecified site of breast (HCC-CMS) Procedures MN MASTECTOMY, SIMPLE, COMPLETE MN BX/REMV,LYMPH NODE,DEEP AXILL MN INTRAOPERATIVE SENTINEL LYMPH NODE ID W DYE INJECTION MN INJ RADIOACTIVE TRACER FOR ID OF SENTINEL NODE MN RMVL ZAHRAA CTR VAD W/SUBQ PORT/STRUCTURAL ANALYSIS ENGINEER CTR/PRPH INSJ MN TISSUE CDL TRUCK DRIVER PLACEMENT BREAST RECONSTRUCTION MN IMPLNT BIO IMPLNT FOR SOFT TISSUE REINFORCEMENT MN ALLODERM Maeve Morales, DO [address] [place] [phone] Phone: tel: fax: Referral ID Status Reason Start Date Expiration Date Visits Re quested Visits Authorized [id number] 10/27/2020 05/15/2021 1 1 Encounter Details Date Type Department Care Team (Late st Contact Info) Description 12/24/2020 5:36 EDT - 12/25/2020 14:04 EDT Hospital Encounter [facility] General Surgery Unit [address] [place] [id number] Maeve Morales, DO [address] [place] [phone] Juanito Carcamo MD [address] [place] [phone] Discharge Disposition: Home or Self Care [...] Amarilys Valentin RN documented in this encounter Discharge Summaries [...] Date Noted ??? *Breast cancer in female ([facility]) 12/24/2020 Resolved Hospital Problems No resolved problems to display. Principal Procedure: 1. Bilateral skin sparing mastectomies and left sentinel lymph node biopsy, port removal (Dr. Morales) 2. bilateral tissue clerk checker reconstruction with allograft of breasts after mastectomy (Dr. Carcamo) Date: 12/24/2020 Secondary Procedures: none Hospital Course Austin Squires is a 45 year old female with a history of left-sided triple negative breast cancer whounderwent bilateral skin sparing mastectomies and left sentinel lymph node biopsy and port removal by Dr. Morales, and bilateral tissue clerk checker reconstruction with allograft of breasts after mastectomy [...] Administered Date(s) Administered ??? Covid-19 mRNA Vaccine (hiogi COVID-19) PF 0.3 ml IM (12 yrs+) [...] Procedure Component Value Units Date/Time SURGICAL PATHOLOGY [[id number]] Collected: 12/24/20 0920 Lab Status: In process Specimen: Tissue from Breast, right; Tissue from Breast, right; Tissue from Lymph Node, [place]; Tissue from Lymph Node, [place]; Tissue from Breast, left Updated: 12/24/20 1413 Relevant Studies at Discharge n/a Last Lab Results at Discharge n/a Discharge Follow Up Upcoming Appointments Jan 01, 2021 10:00 Post Op Visit with Oksana Wilkins PA-C [facility] Plastic[facility] Reconstructive & Cosmetic Surgery - [place] (--) [address] [address] Jan 06, 2021 10:20 Post Op Visit with Maeve Morales DO [facility] Surgical Oncology - [facility] ([facility]) [address] [place] [address] Jan 06, 2021 11:30 Follow Up Visit with Queenie Conde MD [facility] - [facility] ([facility]) [address] [place] [address] Jan 14, 2021 9:00 Steps to Wellness with Katia Hughes, PT [facility] Rehabilitation Therapy - [facility] (--) [address] [facility] [address] Jan 26, 2021 9:15 COMPLEX DECONGESTIVE EVAL with Dary Gómez, PT [facility] Rehabilitation Therapy [facility] (--) [address] [facility] [address] Yanely Amborsio MD, PGY-1 Plastic Surgery Pager # [phone] Cosigned by Juanito Carcamo MD FACS at [...] in female, estrogen receptor negative ([facility]) Apply to affected area up to three [...] or Self Long-Term documented in this encounter Progress Notes * Moustapha Ortegaiana - 12/25/2020 1216 EDT Initial Case Management/Social Work Assessment and Discharge Plan/Readmission Risk Assessment REASON FOR ADMISSION: Breast cancer in female ([facility]) now POD 1 bilat mastectomy and clerk checker placement Patient understands reason for admission: Yes PATIENT INFO VERIFIED: PCP, Contact Info, Address Type of housing (single family, condo, apartment, skilled nursing, single room occupancy, [facility] funded hotel room, group penitentiary) - single [...] expects to be discharged to: Home CULTURAL, CHRISTIAN and/or LANGUAGE factors affecting health care/discharge planning: Spiritual/Cultural Requests: None Language/Literacy Needs Do you need us to provide any communication aids or devices?: No Insurance Information: Medical Insurance: Yes Type of insurance: Medicaid, Other (See Comments) (Wilson Conde secondary) Medicaid Type: Community Nutrition: DISCHARGE RISK [...] Home Health Services: None DME Provider: Pharmacy: [facility]/pharmacy #[id number] - [place], [place] - [address] [place] [address] [place] [address] [facility] ([facility]) - [address] [address] Home Health: Other: POST HOSPITAL TRANSITION PLAN: [...] days (12/24/2020) CC: Breast cancer in female ([facility]) Procedure: 1. Bilateral skin sparing mastectomies and left sentinel lymph node biopsy, port removal ([place]) 2. bilateral tissue clerk checker reconstruction with allograft of breasts after mastectomy [...] skin sparing mastectomies, port removal, and tissue clerk checker placement, recovering well on the floor with adequate pain control. Plan: - appreciate care from plastics primary team - ok for discharge from surg onc perspective Jocelyn Sousakin 12/25/2020 7:43 [phone] ADDENDUM I have seen [...] port removal (Dr. Morales) 2. bilateral tissue clerk checker reconstruction with allograft of breasts after mastectomy [...] Ambulation and SCDs for DVT ppx - RAMIREZ Sterling MD Surgery PGY-1 #[id number] 12/24/20 20:13 [...] and cover, 1 hr before planned port [id number] g 1 ??? OLANZapine (ZYPREXA) 5 mg [...] * OR Surgeon - Juanito Carcamo MD [facility] - 12/25/2020 1404 EDT Operative Note Date: 12/24/2020 Location: [facility] OR Name: Austin Squires, : 1975, PREOPERATIVE DIAGNOSIS: (1) left breast Cancer POSTOPERATIVE DIAGNOSIS: (1) left breast Cancer PROCEDURE : 1. Immediate Bilateral Prepectoral Tissue Speech Therapist Early Intervention Reconstruction with Allograft following mastectomy 2. Intraoperative [...] preoperatively. She has elected to undergo tissue clerk checker with allograft reconstruction planned for the prepectoral position following the mastectomy. Signed informed [place] [employer] and signed informed [...] mm punch). This was contoured to the clerk checker and secured with buried interrupted running3-0 PDS. [...] the orienting line drawn vertically on the clerk checker was used to achieve very precise orientation of the clerk checker. The central tab was then secured against the neoinframammary fold with a 2-0 PDS suture. Once this was seen to be in good position, the remaining 2nd and 4th tabs were then secured. Two 15-Bruneian Attila drains were placed exiting laterally. These were sewn in with 3-0 nylon. Attention was then turned to the leftside. Here also a 2-0 PDS suture was placed medially and the medial tab was secured, the orienting line drawn vertically on the clerk checker was used to achieve very precise orientation of the clerk checker. The central tab was then secured against the neoinframammary fold with a 2-0 PDS suture. Once this was seen to be in good position, the remaining 2nd and 4th tabs were then secured. Two 15-Bruneian Attila drains were placed exiting laterally. These were sewn in with 3-0 nylon. The patient was placed inthe seated position and symmetry was checked. The 750 cc [place] Artoura expanders were then accessed, de-aired and [...] lymph node biopsy. SURGEON: Maeve Morales DO AIRCRAFT STRESS ANALYST: Lida Enriquez MD ANESTHESIA: General endotracheal and [...] Dr Carcamo, who will be performing tissue clerk checker based reconstruction. The patient tolerated our portion of the surgery well. Unless otherwise noted, there were no complications, no blood loss, no cultures obtained, no specimens removed, and no drains retained. Maeve Morales DO / Confirmation: [id number] Dictation ID: [id number] cc: documented in this encounter Miscellaneous Notes * Plan of Care - Valerie Morgan - 12/25/2020 1308 EDT Nursing Discharge Note D: Patient noted with discharge orders to: home. A: Prescriptions sent to [facility] pharmacy. Reviewed discharge instructions and prescriptions [...] - 12/24/2020 1416 EDT Date: 12/24/2020 Location: [facility] OR Name: Austin Squires, : 1975, Diagnosis Pre-op Diagnosis * Malignant neoplasm of left breast in female, estrogen receptor negative, unspecified site of breast ([facility]) [C50.912, Z17.1] Post-op Diagnosis * Malignant neoplasm of left breast in female, estrogen receptor negative, unspecified site of breast ([facility]) [C50.912, Z17.1] Procedures bilateral tissue clerk checker reconstruction with allograft of breasts after mastectomy [...] L and 2 in R axilla/breast Staff: Carbide Powder Processor: Joann Diaz RN; Laurie Escalera RN Relief Carbide Powder Processor: Vivian Hopkins RN; Regina Doss RN Relief Scrub: Jens Sona Scrub Person: Shira Bernardo Patient Radio Division Officer: Shefali Ulloa Indications: Austin Squires is an [...] MD 12/24/2020 11:41 General Surgery PGY-5 Pager [phone] * PAT Note - Ghazala Garcia RN [...] Info) Description 02/28/2025 13:00 EDT Office Visit [facility] Surgical Oncology - [address] [address] Maeve Morales, [address] [place] [address], [address] [place] [address] Scheduled Referrals Name Type Priority Associated Diagnoses [...] 5 hours RECONSTRUCTION, BREAST, BILATERAL, WITH TISSUE CDL TRUCK DRIVER INSERTION 12/24/2020 7:13 EDT Malignant neoplasm of [...] EDT) 01/05/2021 7:49 EDT us Scan 2 Manager Business Continuity PROCEDURE/MINOR SURGICAL OR DERABLES Final Result * IMPLANT RECORD - SCANNED (12/29/2020 11:11 EDT) 12/29/2020 11:1 1 EDT us Scan 2 Manager Business Continuity PROCEDURE/MINOR SURGICAL OR DERABLES Final Result * ECG REPORT - SCANNED (12/29/2020 11:11 EDT) 12/29/2020 11:1 1 EDT us Scan 2 Manager Business Continuity PROCEDURE/MINOR SURGICAL OR DERABLES Final Result * ECG REPORT - SCANNED (12/26/2020 12:24 EDT) 12/26/2020 12:2 4 EDT us Scan 2 Manager Business Continuity PROCEDURE/MINOR SURGICAL OR DERABLES Final Result * EKG 12-LEAD (12/24/2020 18:29 EDT) 12/24/2020 18:2 9 EDT Narrative [facility] EKG - 12/26/2020 12:17 EDT ? [facility] ? Test Date: ?2020-12-24 Pat Name: ? AUSTIN SQUIRES ? Department: ?? Aisha Delgadillo ? Room: ? B688 Gender: ? Female ? Car Supervisor: ?? [id number] : ?1975 ? Requested By: ELBA LEBLANC Order Number: [id number] ? Reading MD: ?? LORI GRAVES MD ? Measurements Intervals ?[place] ? Rate: ? 80 ? P: ?54 MN: ? 189 ?QRS: ?16 QRSD: ? 81 ? T: ?5 QT: ? 437 ? QTc: ?506 ? Interpretive Statements SINUS RHYTHM MODERATE T-WAVE ABNORMALITY, CONSIDER ISCHEMIA PROLONGED QTC I reviewed the tracing and have either agreed or edited the findings in this report. Electronically Signed On 12-26-2020 12:17:58 EDT by LORI GRAVES MD. Procedure Note Lori Graves MD - 12/26/2020 [facility] Test Date: 2020-12-24 Pat Name: AUSTIN SQUIRES Department: [place] [address] Room: [facility] Gender: Female Car Supervisor: [id number] : 1975 Requested By: ELBA LEBLANC Order Number: [id number] Reading MD: LORI GRAVES MD Measurements Intervals [place] Rate: 80 P: 54 MN: 189 QRS: 16 QRSD: 81 T: 5 QT: 437 QTc: 506 Interpretive Statements SINUS RHYTHM MODERATE T-WAVE ABNORMALITY, CONSIDER ISCHEMIA PROLONGED QTC I reviewed the tracing and have either agreed or edited the findings inthis report. Electronically Signed On 12-26-2020 12:17:58 EDT by LORI BUSTAMANTE. us Juan Nelson MD CARDIAC ECG ORDERABLES Fi nal Result [facility] EKG * SURGICAL PATHOLOGY (12/24/2020 9:20 EDT) Note to Patient A healthcare provider will be contacting you to answer any questions you may have about these results, and discuss management options, if applicable. Before this can occur, your pathology results need to be compared with your breast imaging and clinical findings, a process that can take 1-3 business days. 12/30/2020 11:46 EDT [facility] Final Diagnosis Note to Patient: [...] (following therapy) Tumor Location: Upper inner quadrant [place] Combined Histologic Scores: Tubular differentiation: Score 3 [...] response. Lymph nodes: 0/2 (positive/total number examined) [place] nodes: 2 (examined and included in total) 0 nodes with macrometastases 0 nodes with micrometastases 0 nodes with isolated tumor cell clusters only ER/ MN: ER negative; MN negative ([id number]) Her2/dayami: Negative (1+ by immunohistochemist ry) ([id number]) FINAL PATHOLOGIC DIAGNOSIS: A. BREAST, RIGHT, PROPHYLACTIC [...] D. LYMPH NOTE, SENTINEL, LEFT AXILLA, COUNT [id number], EXCISION BIOPSY: - One lymph node negative [...] - Prior biopsy site identified. 12/30/2020 11:46 [facility] Diagnosis Comment This patient [...] as AJCC: ypT2 ypN0 pNR. 12/30/2020 11:46 [facility] Attestation There was significant resident/fellow involvement in the diagnostic evaluation of this case. By the signature below, the attending physician certifies that they have personally conducted a gross and/or microscopic examination of the described specimens and rendered or confirmed the above diagnosis. 12/30/2020 11:46 [facility] at 1146 Clinical History Malignant neoplasm of left breast in female, estrogen receptor negative, unspecified site of breast (HCC-CMS) 12/30/2020 11:46 [facility] Gross Description A. Received fresh [...] No definitive nodules or lesions are present. Bail Agent sections are submitted as follows: INK DUDLEY Black-deep Blue-superficial BLOCK DUDLEY A1-nipple, perpendicular A2-lactiferous sinus, en face A3-A4-upper outer quadrant A5-A6 lower outer quadrant A7-A8-lower inner quadrant C5-F25-zarin inner quadrant Time removed from patient: 12/24/2020 [...] of hemorrhage, necrosis, or residual tumor. Random graphic art sales representative sections are submitted in B1-B8. [...] R) and left axillary sentinel lymph node #[id number] is a single lymph node (1.1 x [...] with a minimal amount of fibrous tissue. Bail Agent sections are submitted as follows: INK DUDLEY Black-deep Blue-superficial BLOCK DUDLEY E1-nipple, perpendicular E2-lactiferous sinus, en face E3-nearest deep margin E4-nearest superficial margin, including mass Q5-H61-dtbixs mass G47-I10-qochm inner quadrant E13-E14 lower inner quadrant M35-Y57-bzmru outer quadrant Q29-Z99-dtnmm outer quadrant Time removed from patient: 12/24/2020 1126 hrs. Time in formalin: 12/24/2020 1337 hrs. Time out of formalin: 19:00 hours 12/25/20 SOCORRO Fritz (ASCP)12/25/20 11:58 12/30/2020 11:46 [facility] Resident/Chris w: Dilia Mcmillan MD 12/30/2020 11:46 [facility] Performing Lab [facility] 11:46 EDT [facility] Scanned Images 12/30/2020 11:46 EDT [facility] Tissue ENTIRE RIGHT BREAST / [...] Maeve Morales DO PATHOLOGY ORDERABLES Final Result [facility] [address] [place] [address] * TEST, URINE (12/24/2020 6:13 EDT) Test, Urine Negative Negative 12/24/2020 8:43 EDT [facility] Comment:False negative resul ts may occur in women who are beyond 5-8 weeks gestation. Diagnosis of should be based on a correlation of test results with typical clinical signs and symptoms. Urine URINE / Unknown Urine Collect / Unknown 12/24/2020 6:13 EDT 12/24/2020 8:37 EDT us Katy Sinclair MD URINALYSIS ORDERABLES Fi nal Result [facility] [address] [place] [address] * ECG REPORT - SCANNED (12/19/2020 11:49 EDT) 12/19/2020 11:4 9 EDT us Scan 2 Manager Business Continuity PROCEDURE/MINOR SURGICAL OR DERABLES Final Result documented in this encounter Visit Diagnoses Diagnosis Breast cancer in female ([facility])- Primary documented in this encounter Admitting Diagnoses Diagnosis Breast cancer in female ([facility]) documented in this encounter Administered Medications [...] Pain, Routine 1844 (Given - Provider: Caio Valentin, RN) 0047 (Given - Provider: Lubna Mcnally, [...] to prep skin before insertion of tissue clerk checker) sodium chloride 0.9 % irrigation (CANCELED) As [...] 12/25/2020 documented in this encounter Care Teams Rotary Operator Relationship Specialty Start Date End Date Batsheva Lira FNP [address] [address] PCP - General 02/19/20 07/21/22 documented as of this encounter
--- OUTSIDE RECORDS SUMMARY | 2024-05-04 01:30 | XMS_ITS | Encounter Summary ---
Author Organization [facility] Address [address] [place] [address] Care Team Providers Care Paper Wrapping Machine Operator Name Role Phone Batsheva Lira JOHN Primary Care Provider [phone] Reason for Visit * Reason Onset Date Comments Post-OP Follow Up 01/12/2021 Encounter Details Date Type Department Care Team (Late st Contact Info) Description 01/12/2021 Telephone [facility] Plastic, Reconstructive & Cosmetic Surgery - [address], [address] [place] [address] Juanito Carcamo MD [address] [address] Post-OP Follow Up Social History [...] Visit [facility] Surgical Oncology - [address] [phone] Maeve Morales, DO [address] [facility], Level [address] [place] [phone] documented as of this encounter Visit Diagnoses Not on filedocumented in this encounter Care Teams Paper Wrapping Machine Operator Relationship Specialty Start Date End Date Batsheva Lira FNP [address] [phone] PCP - General 02/19/20 07/21/22 documented as of this encounter
--- OUTSIDE RECORDS SUMMARY | 2024-05-04 01:30 | XMS_ITS | Encounter Summary ---
Author Organization [facility] Address [address] [place] [address] Care Team Providers Care Professor Of Archaeology Name Role Phone Batsheva Lira JOHN Primary Care Provider [phone] Reason for Visit * Reason Comments Post-OP Follow Up bilateral TE 12/24/20 Encounter Details Date Type Department Care Team (Latest Contact Info) Description 01/01/2021 10:00 EDT Post-op Visit [facility] Plastic, Reconstructive & Cosmetic Surgery - [place] [address], [address] [place] [address] Oksana Wilkins PA-C [address] [facility] [address] [place] [address] Malignant neoplasm of upper-inner quadrant [...] returns in follow up from bilateral tissue installer apprentice reconstruction with allograft of breasts after mastectomy on 12/24/2020. She is doing well. Pain control is adequate withOTC pain medication (Dilauded was d/c by PT [...] Office Visit [facility] Surgical Oncology - [address] [address] Maeve Morales, [address] [facility], Level 2 [place] [phone] documented as of this encounter Visit Diagnoses Diagnosis Malignant 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, estrogen receptor negative ([facility])- Primary documented in this encounter Care Teams Professor Of Archaeology Relationship Specialty Start Date End Date Batsheva Lira FNP [address] [phone] PCP - General 02/19/20 07/21/22 documented as of this encounter
--- OUTSIDE RECORDS SUMMARY | 2024-05-04 01:30 | XMS_ITS | Encounter Summary ---
Author Organization [facility] Address [address] [place] [address] Care Team Providers Care Rouge Mixer Name Role Phone Batsheva Lira JOHN Primary Care Provider [phone] Encounter Details Date Type Department Care Team [...] Jennie Martinez RN documented in this encounter Plan of Treatment Upcoming Encounters Date Type Department Care Team (Late st Contact Info) Description 02/28/2025 13:00 EDT Office Visit [facility] Surgical Oncology - [address] [address] Maeve Morales, DO 111 [facility], [address] [place] [phone] documented as of this encounter Visit Diagnoses Not on filedocumented in this encounter Care Teams Rouge Mixer Relationship Specialty Start Date End Date Batsheva Lira FNP [address] [phone] PCP - General 02/19/20 07/21/22 documented as of this encounter
--- OUTSIDE RECORDS SUMMARY | 2024-05-04 01:30 | XMS_ITS | Encounter Summary ---
Author Organization [facility] Address [address] [place] [address] Care Team Providers Care Superintendent Horticulture Name Role Phone Batsheva Lira JOHN Primary Care Provider [phone] Reason for Visit * Reason Onset Date Comments Appointment Related 12/17/2020 Encounter Details Date Type Department Care Team (Late st Contact Info) Description 12/17/2020 Telephone [facility] Rehabilitation Therapy - [facility] [address] [place] [address] Physical, Therapy Appointment Related Social [...] - Sera Langston - 12/17/2020 1042 EDT [facility] - [address] [address] Telephone Intake Information for Scheduling NEW Patients for Therapy Script/referral: In EPIC Referring Provider: Emelina Grijalva MD Diagnosis: Steps to Wellness; Breast cancer Military Aircraft Designer needed? No Primary Insurance: [place] Medicaid ACO [...] 13:00 EDT Office Visit [facility] Surgical Oncology - [facility] [address] [place], [place] [address] Maeve Morales, 111 [facility], [address] [place] [address] documented as of this encounter Visit Diagnoses Not on filedocumented in this encounter Care Teams Superintendent Horticulture Relationship Specialty Start Date End Date Batsheva Lira FNP [address] [phone] PCP - General 02/19/20 07/21/22 documented as of this encounter
--- OUTSIDE RECORDS SUMMARY | 2024-05-04 01:30 | XMS_ITS | Encounter Summary ---
Author Organization [facility] Address [address] [place] [address] Care Team Providers Care Metal Spray Operator Name Role Phone Batsheva Lira JOHN Primary Care Provider [phone] Encounter Details Date Type Department Care Team (Latest Contact Info) Description 12/17/2020 8:30 EDT - 12/17/2020 23:59 EDT Hospital Encounter [facility] Pre-Surgical Testing [address] [place], [place] [address] Discharge Disposition: Home or Self Care Social [...] Jennie Martinez RN documented in this encounter Medications at Time of Discharge acetaminophen (TYLENOL) 500 mg tablet Take 2 Tablets by mouth every 6 hours. 03/26/20 21 amLODIPine (NORVASC) 2.5 mg tablet Take 2.5 mg by mouth daily. 01/12/20 22 cephalexin (KEFLEX) 500 mg capsule Take 1 capsule by mouth 4 times daily for 21 days. 84 capsule 1 01/16/20 escitalopram oxalate (LEXAPRO) 10 mg tablet Take 30 mg by mouth daily. 12/04/19 23 HYDROmorphone (DILAUDID) 2 mg tablet Take 1-2 Tablets by mouth every 4 hours as needed for Pain. Daily Max: 24 mg 30 Tablet 1 03/26/20 INTRAUTERINE DEVICE, IUD, INTRAUTERINE by intrauterine route. 01/12/20 22 lidocaine-prilocain e (EMLA) cream Apply to port site and cover, 1 hr before planned port access 25 g 1 1 03/26/20 21 OLANZapine (ZYPREXA) 5 mg tablet Take 1 Tablet by mouth daily. Take 1 tab on day 1 and 2 and 3 of chemotherapy 10 Tablet 1 1 12/26/19 omeprazole (PRILOSEC) 40 mg capsule Take 1 Cap by mouth at bedtime. 30 Cap 2 1 12/31/19 21 ondansetron (ZOFRAN-ODT) 8 mg disintegrating tablet Take 1 Tab by mouth every 8 hours as needed for Nausea. 60 Tab 2 1 12/26/19 21 prochlorperazine (COMPAZINE) 10 mg tablet Take 1 Tab by mouth every 6 hours as needed for Nausea. 30 Tab 5 1 12/26/19 21 triamcinolone acetonide (KENALOG) 0.1 % pasteIndications:Ma lignant 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, estrogen receptor negative (HCC-CMS) Apply to affected area up to three times daily as needed for pain. 1 Tube 1 03/26/20 21 documented as of this encounter Discharge Disposition Disposition Code Departure Means Destination Home or Self Care documented in this encounter OR Notes * Preprocedure Instructions - Mallika Frazier, RADHA - 12/17/2020 0830 EDT Austin Squires has been instructed as follows [...] not instruct patient regarding COVID testing, let [facility] coordinate this -Communicate status on yellow form for DOS If patient develops any of these symptoms between now and their surgery date instruct them to call us back at [phone] to report symptoms Visitor Policy: - Inpatients [...] Info) Description 02/28/2025 13:00 EDT Office Visit [facility] Surgical Oncology - [address] [address] Maeve Morales, 111 [facility], Level 2 [place] [address] documented as of this encounter Visit Diagnoses Not on filedocumented in this encounter Care Teams Metal Spray Operator Relationship Specialty Start Date End Date Batsheva Lira FNP [address] [address] PCP - General 02/19/20 07/21/22 documented as of this encounter
--- OUTSIDE RECORDS SUMMARY | 2024-05-04 01:30 | XMS_ITS | Encounter Summary ---
Author Organization [facility] Address [address] [place] [address] Care Team Providers Care Channel Rebuilder Name Role Phone Batsheva Lira JOHN Primary Care Provider [phone] Encounter Details Date Type Department Care Team [...] Description 02/28/2025 13:00 EDT Office Visit [facility] Surgical Oncology - [address] [address] Maeve Morales, DO 111 [facility], Level [address] [place] [phone] documented as of this encounter Visit Diagnoses Not on filedocumented in this encounter Care Teams Channel Rebuilder Relationship Specialty Start Date End Date Batsheva Lira FNP [address] [phone] PCP - General 02/19/20 07/21/22 documented as of this encounter
--- OUTSIDE RECORDS SUMMARY | 2024-05-04 01:30 | XMS_ITS | Encounter Summary ---
Author Organization [facility] Address [address] [place] [address] Care Team Providers Care Block Greaser Name Role Phone Batsheva Lira JOHN Primary Care Provider Reason for Visit * Reason Onset Date Comments Follow-up 12/29/2020 Encounter Details Date Type Department Care Team (Late st Contact Info) Description 12/29/2020 Telephone [facility] Hematology & Oncology - [address] [phone] Kenia Cline, RN Follow-up Social History Tobacco [...] Encounter - Kenia Cline RN - 12/29/2020 2625 EDT Post-operative follow up phone call was [...] and time do not work for her. Technical Architect has sent a message to Kerry Lockett [...] Info) Description 02/28/2025 13:00 EDT Office Visit [facility] Surgical Oncology - [address] [phone] Maeve Morales DO 111 [facility], Level 2 [place] [phone] documented as of this encounter Visit Diagnoses Not on filedocumented in this encounter Care Teams Block Greaser Relationship Specialty Start Date End Date Batsheva Lira FNP [address] [phone] PCP - General 02/19/20 07/21/22 documented as of this encounter
--- OUTSIDE RECORDS SUMMARY | 2024-05-04 01:30 | XMS_ITS | Encounter Summary ---
Author Organization [facility] Address [address] [place] [address] Care Team Providers Care Software Implementation Project Manager Name Role Phone Batsheva Lira JOHN Primary Care Provider [phone] Reason for Visit * Reason Comments Pre-op Exam Bilateral TE recon- Encounter Details Date Type Department Care Team (Late st Contact Info) Description 12/04/2020 10:00 EDT Office Visit [facility] Plastic, Reconstructive & Cosmetic Surgery - [address], [address] [place] [address] Juanito Carcamo MD [address] [place] [phone] Malignant neoplasm of upper-inner quadrant of [...] Jennie Martinez RN documented in this encounter Progress Notes * Juanito Carcamo MD FACS - 12/04/2020 1000 EDT Austin is here for her preoperative appointment for bilateral tissue biometrics specialist based breast reconstruction planned for 12/24/20. Her last chemotherapy was November 27. She reports that she has done well. We reviewed the general risks of reconstruction associated with the device itself and the surgical procedure. We also discussed the potential risk related to using acellular dermal matrix. We reviewedthe [place] [employer] consent form for [...] 02/28/2025 13:00 EDT Office Visit [facility] Surgical Oncology - [address] [phone] Maeve Morales, [address] [place] [address], Level 2 [place] [phone] documented as of this encounter Visit Diagnoses Diagnosis Malignant 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, estrogen receptor negative (HCC-[facility])- Primary documented in this encounter Care Teams Software Implementation Project Manager Relationship Specialty Start Date End Date Batsheva Lira FNP [address] [phone] PCP - General 02/19/20 07/21/22 documented as of this encounter
--- OUTSIDE RECORDS SUMMARY | 2024-05-04 01:30 | XMS_ITS | Encounter Summary ---
Author Organization [facility] Address [address] [place] [address] Care Team Providers Care Sales Solutions Representative Name Role Phone Batsheva Lira JOHN Primary Care Provider [phone] Reason for Visit * Reason Onset Date Comments Pre-procedure 12/18/2020 Antibiotic order s Encounter Details Date Type Department Care Team (Late st Contact Info) Description 12/18/2020 Prep for Procedure [facility] Surgical Oncology - [address] [address] Maeve Morales, DO 111 [facility], [facility] 2 [place] [phone] Social History Tobacco Use Types Packs/Day Years [...] Visit [facility] Surgical Oncology - [address] [phone] Maeve Morales, DO [address] [place] [address], [address] [place] [phone] documented as of this encounter Visit Diagnoses Not on filedocumented in this encounter Care Teams Sales Solutions Representative Relationship Specialty Start Date End Date Batsheva Lira FNP [address] [place] [phone] PCP - General 02/19/20 07/21/22 documented as of this encounter
--- OUTSIDE RECORDS SUMMARY | 2024-05-04 01:30 | XMS_ITS | Encounter Summary ---
Author Organization [facility] Address [address] [place] [address] Care Team Providers Care Novelty Printing Machine Operator Name Role Phone Batsheva Lira JOHN Primary Care Provider [phone] Reason for Referral * Radiology Services (Routine) - Closed Specialty Diagnoses / Procedures Referred By Jen gonzáles Referred To Contact Nuclear Medicine Diagnoses Malignant neoplasm of left breast in female, estrogen receptor negative, unspecified site of breast ([facility]) Procedures NM INJECTION ONLY SENTINEL NODE BREAST Maeve Morales DO Phone: tel: fax: Referral ID Status Reason Start Date Expiration Date Visits Re quested Visits Authorized [id number] Closed 12/19/2020 1 1 Reason for Visit * Auth/Cert Specialty Diagnoses / Procedures Referred By Jen gonzáles Referred To Contact Diagnoses Malignant neoplasm of left breast in female, estrogen receptor negative, unspecified site of breast ([facility]) Procedures PA MASTECTOMY, SIMPLE, COMPLETE PA BX/REMV,LYMPH NODE,DEEP AXILL PA INTRAOPERATIVE SENTINEL LYMPH NODE ID W DYE INJECTION PA INJ RADIOACTIVE TRACER FOR ID OF SENTINEL NODE PA RMVL ZAHRAA CTR VAD W/SUBQ PORT/SAS PROGRAMMER REMOTE CTR/PRPH INSJ PA TISSUE THROW OUT CLERK PLACEMENT BREAST RECONSTRUCTION PA IMPLNT BIO IMPLNT FOR SOFT TISSUE REINFORCEMENT PA ALLODERM Maeve Morales DO 111 [facility], Level 2 [place] [address] Phone: tel: fax: Referral ID Status Reason Start Date Expiration Date Visits Re quested Visits Authorized [id number] 10/27/2020 05/15/2021 1 1 Encounter Details Date Type Department Care Team (Latest Contact Info) Description 12/24/2020 5:40 EDT - 12/24/2020 23:59 EDT Hospital Encounter [facility] Radiology Nuclear Medicine and PET - [address] [id number] Malignant neoplasm of left breast in female, estrogen receptor negative, unspecified site of breast ([facility]) Discharge Disposition: Home or Self [...] 2 Tablets by mouth every 6 hours. 1 03/26/20 21 amLODIPine (NORVASC) 2.5 mg tablet Take 2.5 mg by mouth daily. 01/12/20 22 cephalexin (KEFLEX) 500 mg capsule Take 1 capsule by mouth 4 times daily for 21 days. 84 capsule 01/16/20 21 escitalopram oxalate (LEXAPRO) 10 mg tablet Take 30 mg by mouth daily. 12/04/19 23 HYDROmorphone (DILAUDID) 2 mg tablet Take 1-2 Tablets by mouth every 4 hours as needed for Pain. Daily Max: 24 mg 30 Tablet 03/26/20 21 INTRAUTERINE DEVICE, IUD, INTRAUTERINE by intrauterine route. 01/12/20 22 lidocaine-prilocain e (EMLA) cream Apply to port site and cover, 1 hr before planned port access 25 g 1 1 03/26/20 21 OLANZapine (ZYPREXA) 5 mg tablet Take 1 Tablet by mouth daily. Take 1 tab on day 1 and 2 and 3 of chemotherapy 10 Tablet 1 1 12/26/19 21 omeprazole (PRILOSEC) 40 mg capsule Take 1 [...] Info) Description 02/28/2025 13:00 EDT Office Visit [facility] Surgical Oncology - [address] [phone] Maeve Morales, DO [address] [place] [address], Level [address] [place] [phone] documented as of this encounter Procedures Procedure [...] millicuries documented in this encounter Care Teams Novelty Printing Machine Operator Relationship Specialty Start Date End Date Batsheva Lira FNP [address] [phone] PCP - General 02/19/20 07/21/22 documented as of this encounter
--- OUTSIDE RECORDS SUMMARY | 2024-05-04 01:30 | XMS_ITS | Encounter Summary ---
Author Organization [facility] Address [address] [place] [address] Care Team Providers Care Foreclosure Clerk Name Role Phone Batsheva Lira JOHN Primary Care Provider [phone] Reason for Visit * Reason Comments New Patient Visit Breast Cancer * PT/OT/ST (Routine) - Order Cancelled Specialty Diagnoses / Procedures Referred By Jen gonzáles Referred To Contact Rehab Therapies Diagnoses Malignant 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, estrogen receptor negative ([facility]) Queenie Conde MD Phone: tel: fax: [facility] Oncology Rehabilitation - [address] [address] Phone: tel: fax: Referral ID Status Reason Start Date Expiration Date Visits Requested Visits Authorized [id number] Order Cancelled Specialty Services Required 12/12/2020 1 1 Encounter Details Date Type Department Care Team (Late st Contact Info) Description 12/16/2020 10:00 EDT Office Visit [facility] Oncology [address] [address] Emelina Grijalva MD 111 [facility] 2 [place] [phone] Malignant neoplasm of female breast, unspecified estrogen [...] Answer Entry Date Author No 11/21/2020 23:37 OSMANIT Jennie Stokes RN documented in this encounter Progress Notes * Emelina Grijalva [...] Austin Squires Oncology history Breast cancer -Austin's supervisor sanding noticed a mass in 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 -??Staging [...] to her breast cancer she worked at [employer] and was quite physically fit. 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 Since COVID-19 and her breast cancer she just does housework and take care of her daughter. PROBLEM LIST Patient Active Problem List Diagnosis ??? 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, estrogen receptor negative (HCC-CMS) MEDICAL HISTORY Patient has a past medical [...] in female, estrogen receptor negative ([facility]) Staging form: Breast, AJCC 8th Edition - Clinical: Stage IIB (cT2, cN0, cM0, G3, ER-, UT-, HER2-) - Signed by Maeve Morales DO [...] negative, unspecified site of breast ([facility]) [C50.912, Z17.1 (ICD-10-CM)] Impressions ? Left Ventricle: [...] 02/28/2025 13:00 EDT Office Visit [facility] Surgical Oncology - [facility] [address] [place] [address] Maeve Morales, DO 111 [facility], Level 2 [place] [phone] documented as of this encounter Visit Diagnoses Diagnosis Malignant neoplasm of female breast, unspecified estrogen receptor status, unspecified laterality, unspecified site of breast ([facility])- Primary Other fatigue documented in this encounter Care Teams Foreclosure Clerk Relationship Specialty Start Date End Date Batsheva Lira FNP [address] [phone] PCP - General 02/19/20 07/21/22 documented as of this encounter
--- OUTSIDE RECORDS SUMMARY | 2024-05-04 01:30 | XMS_ITS | Encounter Summary ---
Author Organization [facility] Address [address] [place] [address] Care Team Providers Care Clinical Dietician Name Role Phone Batsheva Lira JOHN Primary Care Provider [phone] Encounter Details Date Type Department Care Team (Late st Contact Info) Description 12/20/2020 Orders Only [facility] Radiology - [facility] [address] [place], [place] [phone] Ric Mccloud MD 111 [facility] [place], Level 1 [place] [address] Social History Tobacco Use Types [...] Info) Description 02/28/2025 13:00 EDT Office Visit [facility] Surgical Oncology - [address] [address] Maeve Morales, 111 [facility], [facility], Level 2 [place] [address] documented as of this encounter Visit Diagnoses Not on filedocumented in this encounter Care Teams Clinical Dietician Relationship Specialty Start Date End Date Batsheva Lira FNP [address] [place], [place] [phone] PCP - General 02/19/20 07/21/22 documented as of this encounter
--- OUTSIDE RECORDS SUMMARY | 2024-05-04 01:30 | XMS_ITS | Encounter Summary ---
Author Organization [facility] Address [address] [place] [address] Care Team Providers Care Fleet Sales Manager Name Role Phone Batsheva Lira JOHN Primary Care Provider [phone] Reason for Visit * Reason Onset Date Comments Appointment Related 12/25/2020 Encounter Details Date Type Department Care Team (Late st Contact Info) Description 12/25/2020 Telephone [facility] Surgical Oncology - [address] [phone] Maeve Morales, DO 111 [facility], [facility] 2 [place] [address] Appointment Related Social History Tobacco [...] Description 02/28/2025 13:00 EDT Office Visit [facility] Surgical Oncology - [facility] [address] [place], [place] [address] Maeve Morales, 111 [facility], Level [address] [place] [phone] documented as of this encounter Visit Diagnoses Not on filedocumented in this encounter Care Teams Fleet Sales Manager Relationship Specialty Start Date End Date Batsheva Lira FNP [address] [phone] PCP - General 02/19/20 07/21/22 documented as of this encounter
--- OUTSIDE RECORDS SUMMARY | 2024-05-04 01:30 | XMS_ITS | Encounter Summary ---
Author Organization [facility] Address [address] [place] [address] Care Team Providers Care Button Sewer Hand Name Role Phone Batsheva Lira JOHN Primary Care Provider [phone] Reason for Visit * Reason Onset Date Comments Results 12/30/2020 Encounter Details Date Type Department Care Team (Late st Contact Info) Description 12/30/2020 Telephone [facility] Surgical Oncology - [address] [phone] Maeve Morales, DO 111 [facility] 2 [place] [phone] Results Social History Tobacco Use Types Packs/Day [...] Encounter - Maeve Morales DO - 12/30/2020 2976 EDT Called and spoke with Austin about [...] Description 02/28/2025 13:00 EDT Office Visit [facility] Surgical Oncology - [facility] [address] [place] [address] Maeve Morales, DO 111 [facility], Level 2 [place] [phone] documented as of this encounter Visit Diagnoses Not on filedocumented in this encounter Care Teams Button Sewer Hand Relationship Specialty Start Date End Date Batsheva Lira FNP [address] [phone] PCP - General 02/19/20 07/21/22 documented as of this encounter
--- OUTSIDE RECORDS SUMMARY | 2024-05-04 01:30 | XMS_ITS | Encounter Summary ---
Author Organization [facility] Address [address] [place] [address] Care Team Providers Care Loader Engineer Name Role Phone Batsheva Lira JOHN Primary Care Provider [phone] Encounter Details Date Type Department Care Team (Late st Contact Info) Description 12/17/2020 9:30 EDT Phlebotomy Only [facility] 2 Phlebotomy [address] [place] [address] Sounding Device Operator, Acc Phlebotomy Malignant 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, estrogen receptor negative ([facility]) Social History Tobacco Use Types Packs/Day [...] [facility] - [address] [phone] Maeve Morales, 111 [facility], Level 2 [place] [address] documented as of this encounter Procedures Procedure Name Priority Date/Time Associated Diagnosis Comments COMPREHENSIVE METABOLIC PANEL (ONCOLOGY USE ONLY-INC MG) STAT 12/17/2020 9:48 EDT Malignant 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, estrogen receptor negative (HCC-CMS) COMPLETE BLOOD COUNT AND DIFF, CHEMO STAT 12/17/2020 9:48 EDT Malignant 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, estrogen receptor negative ([facility]) documented in this encounter Results * (ABNORMAL) COMPLETE BLOOD COUNT AND DIFF, CHEMO (12/17/2020 9:48 EDT) WBC 5.56 4.00 - 12.40 K/cmm 12/17/2020 9:59 [facility] RBC 3.77(L) 3.86 - 5.04 M/cmm 12/17/2020 9:59 [facility] Hemoglobin 12.3 11.6 - 15.2 gm/dL 12/17/2020 9:59 [facility] HCT 37.0 34.9 - 44.4 % 12/17/2020 9:59 [facility] MCV 98 81 - 98 fl 12/17/2020 9:59 [facility] MCH 32.6 26.7 - 33.3 pg 12/17/2020 9:59 [facility] MCHC 33.2 32.1 - 35.9 gm/dL 12/17/2020 9:59 [facility] RDW-CV 18.8(H) <14.7 % 12/17/2020 9:59 [facility] RDW-SD 68.3(H) <50.4 fl 12/17/2020 9:59 [facility] PLT 280 141 - 377 K/cmm 12/17/2020 9:59 [facility] MPV 9.8 9.5 - 12.7 fl 12/17/2020 9:59 [facility] % Neutrophils 65.7 % 12/17/2020 9:59 [facility] Absolute Neutrophils 3.65 2.20 - 8.85 K/cmm 12/17/2020 9:59 [facility] Type of Differential: Auto 12/17/2020 9:59 [facility] Blood VENOUS BLOOD / Unknown Venipuncture / Unknown 12/17/2020 9:48 EDT 12/17/2020 9:55 EDT us Queenie Conde MD PACKAGES & DNA PROBE ORDERABLES Final Result [facility] [address] [place] [address] * (ABNORMAL) COMPREHENSIVE METABOLIC PANEL (ONCOLOGY USE ONLY-INC MG) (12/17/2020 9:48 EDT) Sodium 140 136 - 145 mEq/L 12/17/2020 10:31 [facility] Potassium 3.9 3.5 - 5.0 mEq/L 12/17/2020 10:31 [facility] Chloride 103 96 - 110 mEq/L 12/17/2020 10:31 [facility] CO2 Total 23 22 - 32 mEq/L 12/17/2020 10:31 [facility] Glucose 191(H) 70 - 100 mg/dL 12/17/2020 10:31 [facility] BUN 10 10 - 26 mg/dL 12/17/2020 10:31 [facility] Creatinine 0.46(L) 0.52 - 1.04 mg/dL 12/17/2020 10:31 [facility] eGFR 121 >60 mL/min/1.7 3m2 12/17/2020 10:31 [facility] Comment:eGFR calculated mata asif CKD-EPI equation for non- Americans. Multiply eGFR by 1.16 for patients. Total Protein 7.1 6.3 - 8.2 g/dL 12/17/2020 10:31 [facility] Albumin 4.7 3.4 - 4.9 g/dL 12/17/2020 10:31 [facility] Alkaline Phosphatase 152(H) 38 - 126 U/L 12/17/2020 10:31 [facility] AST 90(H) 15 - 46 U/L 12/17/2020 10:31 EDT [facility] ALT 100(H) <35 U/L 12/17/2020 10:31 EDT [facility] Bilirubin, Total 0.6 <1.4 mg/dL 12/18/19 10:31 EDT [facility] Calcium 9.7 8.5 - 10.5 mg/dL 12/17/2020 10:31 EDT [facility] Calculated Calcium 9.1 8.5 - 10.5 mg/dL 12/17/2020 10:31 EDT [facility] Magnesium 1.8 1.7 - 2.8 mg/dL 12/17/2020 10:31 T [facility] Blood VENOUS BLOOD / Unknown Venipuncture / Unknown 12/17/2020 9:48 EDT 12/17/2020 9:55 EDT Queneie Conde MD CHEMISTRY & BLOOD GAS ORDERABLES Final Result [facility] [address] [place] [address] documented in this encounter Visit Diagnoses Diagnosis Malignant 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, estrogen receptor negative (HCC-CMS) documented in this encounter Care Teams Loader Engineer Relationship Specialty Start Date End Date Batsheva Lira FNP [address] [phone] PCP - General 02/19/20 07/21/22 documented as of this encounter
--- OUTSIDE RECORDS SUMMARY | 2024-05-04 01:30 | XMS_ITS | Encounter Summary ---
Author Organization [facility] Address [address] [place] [address] Care Team Providers Care Rag Collector Name Role Phone Batsheva Lira JOHN Primary Care Provider [phone] Encounter Details Date Type Department Care Team [...] Info) Description 02/28/2025 13:00 EDT Office Visit [facility] Surgical Oncology - [address] [address] Maeve Morales, DO 111 [facility], Level 2 [place] [phone] documented as of this encounter Visit Diagnoses Not on filedocumented in this encounter Care Teams Rag Collector Relationship Specialty Start Date End Date Batsheva Lira FNP [address] [phone] PCP - General 02/19/20 07/21/22 documented as of this encounter
--- OUTSIDE RECORDS SUMMARY | 2024-05-04 01:30 | XMS_ITS | Encounter Summary ---
Author Organization [facility] Address [address] [place] [address] Care Team Providers Care Manufacturing Engineering Intern Name Role Phone Batsheva Lira JOHN Primary Care Provider [phone] Reason for Visit * Reason Onset Date Comments Appointment Related 11/25/2020 PT evaluate/ treat Dx: BRCA Encounter Details Date Type Department Care Team (Late st Contact Info) Description 12/22/2020 Telephone [facility] [address] [address] Betsey Miller, RN [address] [place] [address] Appointment Related (PT evaluate/treat Dx: BRCA) Social [...] 11/21/2020 23:37 EDT Jennie Stokes RN * Do you have serious difficulty walking or climbing stairs? (5 years old or older) Answer Date of Assessment Author No 11/21/2020 23:37 Jennie Martinez RN * Do you have difficulty dressing or bathing? (5 years old or older) Answer Date of Assessment Author No 11/21/2020 23:37 EDT Jennie Stokes RN * Because of a physical, mental, or emotional condition, do you have difficulty doing errands alone such as visiting a doctor's office or shopping? (15 years old or older) Answer Date of Assessment Author No 11/21/2020 23:37 EDJennie Cantu RN documented as of this encounter Mental [...] for BTM (12/24/2020). Scheduled lymphedema evaluation, 01/26/21 (929) for evaluation / education re: risk of [...] Office Visit [facility] Surgical Oncology - [address] [phone] Maeve Morales, DO [address] [facility], Level 2 [place] [address] documented as of this encounter Visit Diagnoses Not on filedocumented in this encounter Care Teams Manufacturing Engineering Intern Relationship Specialty Start Date End Date Batsheva Lira FNP [address] [phone] PCP - General 02/19/20 07/21/22 documented as of this encounter
--- OUTSIDE RECORDS SUMMARY | 2024-05-04 01:30 | XMS_ITS | Encounter Summary ---
Author Organization [facility] Address [address] [place] [address] Care Team Providers Care Finishing Technician Name Role Phone Batsheva Lira JOHN Primary Care Provider [phone] Reason for Visit * Auth/Cert Specialty Diagnoses / Procedures Referred By Jen gonzáles Referred To Contact Diagnoses Malignant neoplasm of left breast in female, estrogen receptor negative, unspecified site of breast ([facility]) Procedures [place] MASTECTOMY, SIMPLE, COMPLETE [place] BX/REMV,LYMPH NODE,DEEP AXILL [place] INTRAOPERATIVE SENTINEL LYMPH NODE ID W DYE INJECTION [place] INJ RADIOACTIVE TRACER FOR ID OF SENTINEL NODE VT RMVL ZAHRAA CTR VAD W/SUBQ PORT/FORM DRAFTER CTR/PRPH INSJ [place] TISSUE SPOT WELDER LINE PLACEMENT BREAST RECONSTRUCTION [place] IMPLNT BIO IMPLNT FOR SOFT TISSUE REINFORCEMENT [place] Maeve Stack, [address] [address] Phone: tel: fax: Referral ID Status Reason Start Date Expiration Date Visits Re quested Visits Authorized [id number] 10/27/2020 05/15/2021 1 1 Encounter Details Date Type Department Care Team (Late st Contact Info) Description 12/24/2020 7:23 EDT Anesthesia Event [facility] OR [address] [place] [address] Annemarie Eastman MD [address] [place] [phone] Mary Fan MD [address] [place] [address], Level 2 [place] [address] Anesthesia Record Procedure Summary Procedure [...] IPA, 70% IPA; Power Inject; Right Atrium; [id number]; [id number] 08/08/20 1002 by Estrella Westbrook RN Peripheral [...] left sentinel lymph node biopsy and tissue assorter reconstruction; N; Full thickness; 06/18/21 12/24/20 0755 by Laurie Escalera, RADHA 06/18/21 0000 by Joann Diaz RN Wound 12/24/20; 0755; Inci vu; Right; Breast; Skin sparing mastectomy with right chest wall port removal and tissue assorter reconstruction; N; Full thickness; 06/18/21 12/24/20 0755 by Laurie Escalera, RADHA 06/18/21 0000 by Joann Diaz RN Closed/Suction Drain 12/24/20; 1343; In OR by ; 1; Right, Lateral; Breast; 15 [place]; 06/18/21 12/24/20 1343 by Joann Diaz RN 06/18/21 0000 by Joann Diaz RN Closed/Suction Drain 12/24/20; 1343; In OR by MD; 2; Right, Lateral; Breast; 15 Citizen [place]; 06/18/21 12/24/20 1343 by Joann Diaz RN 06/18/21 0000 by Joann Diaz RN Closed/Suction Drain 12/24/20; 1344; In OR by MD; 3; Left, Lateral; Breast; 15 Citizen [place]; 06/18/21 12/24/20 1344 by Joann Diaz RN 06/18/21 0000 by Joann Diaz RN Closed/Suction Drain 12/24/20; 1344; In OR by MD; 4; Left, Lateral; Breast; 15 Citizen [place]; 06/18/21 12/24/20 1344 by Joann Diaz RN [...] Assessment Author No 11/21/2020 23:37 EDT Jennie Stokes, RADHA * Do you have difficulty dressing or [...] 11/21/2020 23:37 EDT Jennie Stokes RN documented as of this encounter Mental [...] Complete vitals [facility] is [facility] Vitals Value Taken Time BP 108/57 12/24/20 [...] and Staff Patient location during procedure: OR Resident/CHEF DE FROID: Mary Fan MD Performed: resident/CHEF DE FROID/AA Indications and Patient Condition Indications for airway [...] port removal, sentinel node biopsy, bilateral tissue assorter reconstruction Surgical hx: cholecystectomy Meds: amlodipine, lexapro, [...] Exercise involving walking july till february- runs Xetal- very active. ??? Head trauma 06/19/20 fell [...] her ondansetron use under 16 mg daily. Cosigned by Annemarie Eastman MD at 12/24/2020 8:58 EDT documented in this encounter Plan of Treatment Upcoming Encounters Date Type Department Care Team (Late st Contact Info) Description 02/28/2025 13:00 EDT Office Visit [facility] Surgical Oncology - [address] [address] Maeve Morales, DO 111 [facility], Level 2 [place] [phone] documented as of this encounter Procedures Procedure Name Priority Date/Time Associated Diagnosis Comments ANESTHESIA INTUBATION Routine 12/24/2020 7:33 EDT documented in this encounter Results * Airway (12/24/2020 7:33 EDT) Narrative Mary Fan MD - 12/24/2020 7:33 EDT Mary Fan MD ? 12/24/2020 ??7:56 Airway Date/Time: 12/24/2020 7:33 Urgency: elective General Information and Staff Patient location during procedure: OR Resident/CHEF DE FROID: Mary Fan MD Performed: resident/CHEF DE FROID/AA Indications and Patient Condition Indications for airway [...] 21 Number of attempts at approach: 1 us Annemarie Eastman MD ANESTHESIA ORDERABLES Final Resu lt documented in this encounter Visit Diagnoses Not [...] mg documented in this encounter Care Teams Finishing Technician Relationship Specialty Start Date End Date Batsheva Lira FNP [address] [address] PCP - General 02/19/20 07/21/22 documented as of this encounter
--- OUTSIDE RECORDS SUMMARY | 2024-05-04 01:30 | XMS_ITS | Encounter Summary ---
Author Organization [facility] Address [address] [place] [address] Care Team Providers Care Deputy Clerk Name Role Phone Batsheva Lira JOHN Primary Care Provider [phone] Reason for Visit * Reason Comments Other Encounter Details Date Type Department Care Team (Late st Contact Info) Description 12/30/2020 Refill [facility] Hematology & Oncology - [address] [place] [address] [place] [address] [place] [address] [place] [phone] Other Social History Tobacco Use Types [...] Refills Last Filled Start Date End Date omeprazole (PRILOSEC) 40 mg capsule TAKE 1 CAPSULE BY MOUTH EVERYDAY AT BEDTIME 90 capsule 3 12/30/2020 documented in this encounter Miscellaneous Notes * Telephone Encounter - Lolly Antunez RN - 12/30/2020 1029 EDT Refilled medication after discussing with Dr Conde. documented in this encounter Plan of Treatment Upcoming Encounters Date Type Department Care Team (Late st Contact Info) Description 02/28/2025 13:00 EDT Office Visit [facility] Surgical Oncology - [address] [address] Maeve Morales, DO 111 [facility], [facility], Level 2 [place] [phone] documented as of this encounter Visit Diagnoses Not on filedocumented in this encounter Discontinued Medications Medication Sig Discontinue Reason Start Date End Da te omeprazole (PRILOSEC) 40 mg capsule Take 1 Cap by mouth at bedtime. 10/08/2020 12/30/2020 documented as of this encounter Care Teams Deputy Clerk Relationship Specialty Start Date End Date Batsheva Lira FNP [address] [address] PCP - General 02/19/20 07/21/22 documented as of this encounter
--- OUTSIDE RECORDS SUMMARY | 2024-05-04 01:30 | XMS_ITS | Encounter Summary ---
Author Organization [facility] Address [address] [place] [address] Care Team Providers Care Glass Tube Bender Name Role Phone Batsheva Lira JOHN Primary Care Provider [phone] Encounter Details Date Type Department Care Team [...] Info) Description 02/28/2025 13:00 EDT Office Visit [facility] Surgical Oncology - [address] [address] Maeve Morales, DO 111 [facility], Level 2 [place] [phone] documented as of this encounter Visit Diagnoses Not on filedocumented in this encounter Care Teams Glass Tube Bender Relationship Specialty Start Date End Date Batsheva Lira FNP [address] [phone] PCP - General 02/19/20 07/21/22 documented as of this encounter
--- OUTSIDE RECORDS SUMMARY | 2024-05-04 01:30 | XMS_ITS | Encounter Summary ---
Author Organization [facility] Address [address] [place] [address] Care Team Providers Care Public Health Analyst Name Role Phone Batsheva Lira JOHN Primary Care Provider [phone] Reason for Visit * Reason Onset Date Comments Post-OP Follow Up 01/05/2021 redness, no ch anges since 01/03. Encounter Details Date Type Department Care Team (Late st Contact Info) Description 01/05/2021 Telephone [facility] Plastic, Reconstructive & Cosmetic Surgery - [place] [address] [facility], [address] [place] [address] Katia Degroot RN [address] [address] Post-OP Follow Up (redness, no [...] Info) Description 02/28/2025 13:00 EDT Office Visit [facility] Surgical Oncology - [address] [address] Maeve Morales, 111 [facility], Level 2 [place] [phone] documented as of this encounter Visit Diagnoses Not on filedocumented in this encounter Care Teams Public Health Analyst Relationship Specialty Start Date End Date Batsheva Lira FNP [address] [phone] PCP - General 02/19/20 07/21/22 documented as of this encounter
--- OUTSIDE RECORDS SUMMARY | 2024-05-04 01:30 | XMS_ITS | Encounter Summary ---
Author Organization [facility] Address [address] [place] [address] Care Team Providers Care Transmission Builder Name Role Phone Batsheva Lira JOHN Primary Care Provider [phone] Reason for Visit * Reason Onset Date Comments Appointment Related 12/12/2020 Encounter Details Date Type Department Care Team (Late st Contact Info) Description 12/12/2020 Telephone [facility] Rehabilitation Therapy - [facility] [address] [place] [address] Physical, Therapy Appointment Related Social [...] Description 02/28/2025 13:00 EDT Office Visit [facility] Surgical Oncology - [address] [address] Maeve Morales, DO [address] [place] [address] [address] [place] [phone] documented as of this encounter Visit Diagnoses Not on filedocumented in this encounter Care Teams Transmission Builder Relationship Specialty Start Date End Date Batsheva Lira FNP [address] [phone] PCP - General 02/19/20 07/21/22 documented as of this encounter
--- OUTSIDE RECORDS SUMMARY | 2024-05-04 01:30 | XMS_ITS | Encounter Summary ---
Author Organization [facility] Address [address] [place] [address] Care Team Providers Care Recruitment Manager Name Role Phone Batsheva Lira JOHN Primary Care Provider [phone] Reason for Visit * Reason Comments Post-OP Follow Up Drain removal Encounter Details Date Type Department Care Team (Latest Contact Info) Description 01/12/2021 11:30 EDT Nurse Only [facility] Plastic, Reconstructive & Cosmetic Surgery - [address], [address] [place] [address] Nurse, Plastics, RN Encounter for [...] Info) Description 02/28/2025 13:00 EDT Office Visit [facility] Surgical Oncology - [address] [address] Maeve Morales, DO 111 [facility], Level 2 [place] [phone] documented as of this encounter Visit Diagnoses Diagnosis Encounter for change or removal of drains- Primary Other specified aftercare following surgery documented in this encounter Care Teams Recruitment Manager Relationship Specialty Start Date End Date Batsheva Lira FNP [address] [phone] PCP - General 02/19/20 07/21/22 documented as of this encounter
--- OUTSIDE RECORDS SUMMARY | 2024-05-04 01:30 | XMS_ITS | Encounter Summary ---
Author Organization [facility] Address [address] [place] [address] Care Team Providers Care Wet Washer Machine Name Role Phone Batsheva Lira JOHN Primary Care Provider [phone] Encounter Details Date Type Department Care Team [...] Description 02/28/2025 13:00 EDT Office Visit [facility] Surgical Oncology - [address] [address] Maeve Morlaes, DO 111 [facility], Level [address] [place] [phone] documented as of this encounter Visit Diagnoses Not on filedocumented in this encounter Care Teams Wet Washer Machine Relationship Specialty Start Date End Date Batsheva Lira FNP [address] [phone] PCP - General 02/19/20 07/21/22 documented as of this encounter
--- OUTSIDE RECORDS SUMMARY | 2024-05-04 01:30 | XMS_ITS | Encounter Summary ---
Author Organization [facility] Address [address] [place] [address] Care Team Providers Care Product Handler Name Role Phone Batsheva Lira JOHN Primary Care Provider [phone] Pam Germain MD Unavailable [phone] Janay Duran APRN Primary Care Provider Inez Corado DO Primary Care Provid er Encounter Details Date Type Department Care Team (Late st Contact Info) Description 01/08/2021 Lab Requisition [facility] Pathology & Laboratory Medicine - [facility] [address] [place] [address] [place] [address] [place] [phone] Encounter for other general examination Social [...] Visit [facility] Surgical Oncology - [address] [address] Maeve Morales, DO 111 [facility], Level 2 [place] [address] documented as of this encounter Procedures Procedure Name Priority Date/Time Associated Diagnosis Comments HISTORICAL CASE UPDATE Today 01/08/2021 11:37 EDT Encounter for other general examination documented in this encounter Results * HISTORICAL CASE UPDATE (01/08/2021 11:37 EDT) Addendum Comment PD-L1 IMMUNOHISTOCHEMISTRY REPORT TISSUE SUBMITTED: Tissue submitted: Paraffin embedded tissue block labelled A1 from [id number] at the request of Dr. Queenie Conde [...] using the OptiView Detection System on the Dubb BenchMark Ultra. The specimen submitted for testing [...] the National Comprehensive Cancer Network (NCCN) at: www.nccn.org/professio nals/physician_gls/ INTERPRETATION: PD-L1 Combined Positive Score (CPS) > 1 but < 5 (PD-L1 expression negative) PD-L1 IMMUNOHISTOCHEMISTRY REPORT TISSUE SUBMITTED: Tissue submitted: Paraffin embedded tissue block labelled A1 from [id number] at the request of Dr. Queenie Conde. [...] and the OptiView Amplification Kit on the [employer] BenchMark Ultra. The specimen submitted for testing [...] performance characteristics have been determined by [facility] and/or by the referring laboratory. [...] < 1% (PD-L1 expression negative) 1 15:43 [facility] Original (A1) 1 15:43 [facility] Original Case Specimen Source 1 15:43 [facility] Original Case Date of Service 07/09/2020 15:43 EDT [facility] Attestation By the signature below, the attending physician certifies that they have 1) personally conducted a gross and/or microscopic examination of the described specimen(s), and/or personally interpreted the results of laboratory testing of the described specimen(s), and 2) personally rendered or confirmed the above diagnosis. 15:43 EDT [facility] at 1543 Surgical pathology service (qualifier value) ENTIRE BREAST / Unknown 01/08/2021 11:37 EDT 01/08/2021 11:37 EDT us Queenie Conde MD PATHOLOGY ORDERABLES Final Resul t [facility] [address] [place] [address] documented in this encounter Visit Diagnoses Diagnosis Encounter for other general examination documented in this encounter Care Teams Product Handler Relationship Specialty Start Date End Date Batsheva Lira FNP [facility] [address] [address] PCP - General 02/19/20 07/21/22 Janay Duran APRN [address] [place] [phone] PCP - General Family Medicine - Primary Care 07/22/22 02/12/24 Inez Corado DO [address] [place] [phone] PCP - General Family Medicine - Primary Care 02/13/24 Pam Germain MD [address] [place] [phone] Medical Oncology 03/22/22 documented as of this encounter
--- OUTSIDE RECORDS SUMMARY | 2024-05-04 01:30 | XMS_ITS | Encounter Summary ---
Author Organization [facility] Address [address] [place] [address] Care Team Providers Care Potato Picker Name Role Phone Batsheva Lira JOHN Primary Care Provider [phone] Reason for Visit * Reason Comments Post-OP Follow Up bilateral TE 8.11.21 Encounter Details Date Type Department Care Team (Latest Contact Info) Description 01/08/2021 13:30 EDT Post-op Visit [facility] Plastic, Reconstructive & Cosmetic Surgery - [address], [address] [place] [address] Juanito Carcamo MD [address] [place] [phone] Surgery follow-up (Primary Dx) Social History [...] documented in this encounter Progress Notes * Farrukh Castellon MA - 01/08/2021 1330 EDT Examination chaperoned by FARRUKH CASTELLON MA. * Juanito Carcamo MD FACS - 01/08/2021 1330 EDT [place] follows up after her bilateral tissue medical records receptionist reconstruction with allograft in the prepectoral position [...] Visit [facility] Surgical Oncology - [address] [address] Maeve Morales, [address] [place] [address], Level [address] [place] [phone] documented as of this encounter Visit Diagnoses Diagnosis Surgery follow-up- Primary Follow-up examination, following unspecified surgery documented in this encounter Care Teams Potato Picker Relationship Specialty Start Date End Date Batsheva Lira FNP [address] [phone] PCP - General 02/19/20 07/21/22 documented as of this encounter
--- OUTSIDE RECORDS SUMMARY | 2024-05-04 01:31 | XMS_ITS | Encounter Summary ---
Author Organization [facility] Address [address] [place] [address] Care Team Providers Care Compotype Operator Name Role Phone Batsheva Lira JOHN Primary Care Provider [phone] Reason for Visit * Reason Onset Date Comments Fever 11/21/2020 Encounter Details Date Type Department Care Team (Late st Contact Info) Description 11/21/2020 Telephone [facility] Hematology & Oncology - Main [place] [address] [place] [address] Yeison Parada MD [address] [place] [address] [phone] Fever Social History Tobacco Use Types Packs/Day [...] as of this encounter Functional Status * Because of a physical, mental, or emotional condition, does this person have difficulty doing errands alone such as visiting a doctor's office or shopping? Answer Date of Assessment Author No 07/15/2020 9:13 EST documented as of this encounter Mental Status * Because of a physical, mental, or emotional condition, does this person have serious difficulty concentrating, remembering, or making decisions? Answer Entry Date Author No 07/15/2020 9:13 EST documented in this encounter Miscellaneous Notes * [...] [facility] Surgical Oncology - [address] [address] Maeve Morales, 111 [facility], Level 2 [place] [phone] documented as of this encounter Visit Diagnoses Not on filedocumented in this encounter Care Teams Compotype Operator Relationship Specialty Start Date End Date Batsheva Lira FNP [address] [phone] PCP - General 02/19/20 07/21/22 documented as of this encounter
--- OUTSIDE RECORDS SUMMARY | 2024-05-04 01:31 | XMS_ITS | Encounter Summary ---
Author Organization [facility] Address [address] [place] [address] Care Team Providers Care [employer] Certified Internetwork Expert Name Role Phone Batsheva Lira JOHN Primary Care Provider [phone] Encounter Details Date Type Department Care Team (Late st Contact Info) Description 11/25/2020 Orders Only [facility] Surgical Oncology - Main [place] [address] [place] [address] Kenia Cline, RN Malignant neoplasm of upper-inner [...] Progress Notes * Kenia Cline RN - 11/25/2020 5938 EDT Referral for pre op PT has been placed to provide education on lymphedema. documented in this encounter Plan of Treatment Upcoming Encounters Date Type Department Care Team (Late st Contact Info) Description 02/28/2025 13:00 EDT Office Visit [facility] Surgical Oncology - [address] [address] Maeve Morales, DO 111 [facility], [facility], Level 2 [place] [phone] documented as of this encounter Visit Diagnoses Diagnosis Malignant 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, estrogen receptor negative ([facility])- Primary documented in this encounter Care Teams [employer] Certified Internetwork Expert Relationship Specialty Start Date End Date Batsheva Lira FNP [address] [phone] PCP - General 02/19/20 07/21/22 documented as of this encounter
--- OUTSIDE RECORDS SUMMARY | 2024-05-04 01:31 | XMS_ITS | Encounter Summary ---
Author Organization [facility] Address [address] [place] [address] Care Team Providers Care Commercial Green Building Architect Name Role Phone Batsheva Lira JOHN Primary Care Provider [phone] Reason for Visit * Reason Onset Date Comments Abrasion 10/25/2020 Encounter Details Date Type Department Care Team (Late st Contact Info) Description 10/25/2020 Telephone [facility] Hematology & Oncology - Main [place] [address] [place] [address] Chintan Orta MD [address] [place] [address] [phone] Abrasion Social History Tobacco Use [...] 07/15/2020 9:13 EST documented in this encounter Ordered Prescriptions Prescription [...] prophylaxis. Chintan Orta MD Hematology/Oncology Fellow PGY4 [facility] documented in this encounter Plan of Treatment Upcoming Encounters Date Type Department Care Team (Late st Contact Info) Description 02/28/2025 13:00 EDT Office Visit [facility] Surgical Oncology - [address] [phone] Maeve Morales, [address] [place] [address], [facility], Level 2 [place] [phone] documented as of this encounter Visit Diagnoses Not on filedocumented in this encounter Care Teams Commercial Green Building Architect Relationship Specialty Start Date End Date Batsheva Lira FNP [address] [place] [phone] PCP - General 02/19/20 07/21/22 documented as of this encounter
--- OUTSIDE RECORDS SUMMARY | 2024-05-04 01:31 | XMS_ITS | Encounter Summary ---
Author Organization [facility] Address [address] [place] [address] Care Team Providers Care Waistline Joiner Overlock Name Role Phone Batsheva Lira JOHN Primary Care Provider [phone] Reason for Visit * Reason Comments Chemotherapy And Provider Visit Follow-up Encounter Details Date Type Department Care Team (Late st Contact Info) Description 10/30/2020 9:00 EDT Office Visit [facility] Hematology & Oncology - Main [place] [address] [place] [address] [place] [address] [place] [phone] Malignant neoplasm of upper-inner quadrant of [...] documented in this encounter Functional Status * Because of [...] Refills Last Filled Start Date End Date OLANZapine (ZYPREXA) 5 mg tablet Take 1 Tablet by mouth daily. Take 1 tab on day 1 and 2 and 3 of chemotherapy 10 Tablet 1 10/30/2020 documented in this encounter Progress Notes * Queenie Conde MD - 10/30/2020 0900 EDT REASON FOR OFFICE VISIT Austin is a 45 y.o. being see for ongoing neoadjuvant chemotherapy. 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 She has no??additional??new??constitutional, cardiovascular, pulmonary, GI, ,[employer]SI[employer], musculoskeletal, psychiatric, neurologic,endocrine, or heme symptoms. ?? [...] his 90s. ??Her paternal relatives are of [place] descent. Objective: BP (!) 145/87 Pulse (!) [...] Info) Description 02/28/2025 13:00 EDT Office Visit [facility] Surgical Oncology - [address] [address] Maeve Morales, DO [address] [place] [address], Level [address] [place] [phone] documented as of this encounter Visit Diagnoses Diagnosis Malignant 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, estrogen receptor negative (HCC-CMS)- Primary documented in this encounter Orders Appointment Requests Count Last Ordered Date Fi rst Ordered Date ONCBCN CLINIC APPOINTMENT REQUEST 1 021 documented in this encounter Care Teams Waistline Joiner Overlock Relationship Specialty Start Date End Date Batsheva Lira FNP [address] [phone] PCP - General 02/19/20 07/21/22 documented as of this encounter
--- OUTSIDE RECORDS SUMMARY | 2024-05-04 01:31 | XMS_ITS | Encounter Summary ---
Author Organization [facility] Address [address] [place] [address] Care Team Providers Care Dry Transfer Worker Name Role Phone Batsheva Lira JOHN Primary Care Provider [phone] Encounter Details Date Type Department Care Team (Late st Contact Info) Description 11/13/2020 Orders Only [facility] Hematology & Oncology - [facility] [address] [place] [address] [place] [address] [place] [phone] Social History Tobacco Use Types Packs/Day [...] 07/15/2020 9:13 EST documented in this encounter Plan of Treatment Upcoming Encounters Date Type Department Care Team (Late st Contact Info) Description 02/28/2025 13:00 EDT Office Visit [facility] Surgical Oncology - [address] [address] Maeve Morales, DO [address] [facility], [facility], Level [address] [place] [phone] documented as of this encounter Visit Diagnoses Not on filedocumented in this encounter Care Teams Dry Transfer Worker Relationship Specialty Start Date End Date Batsheva Lira FNP [address] [phone] PCP - General 02/19/20 07/21/22 documented as of this encounter
--- OUTSIDE RECORDS SUMMARY | 2024-05-04 01:31 | XMS_ITS | Encounter Summary ---
Author Organization [facility] Address [address] [place] [address] Care Team Providers Care Guest Experience Captain Name Role Phone Batsheva Lira JOHN [...] Visit [facility] Surgical Oncology - [address] [phone] Maeve Morales, DO [address] [facility], [address] [place] [phone] documented as of this encounter Visit Diagnoses Not on filedocumented in this encounter Care Teams Guest Experience Captain Relationship Specialty Start Date End Date Batsheva Lira FNP [address] [phone] PCP - General 02/19/20 07/21/22 documented as of this encounter
--- OUTSIDE RECORDS SUMMARY | 2024-05-04 01:31 | XMS_ITS | Encounter Summary ---
Author Organization [facility] Address [address] [place] [address] Care Team Providers Care Synthetic Filament Extruder Name Role Phone Batsheva Lira JOHN Primary Care Provider [phone] Reason for Visit * Reason Comments Chemotherapy And Provider Visit Encounter Details Date Type Department Care Team (Latest Contact Info) Description 10/30/2020 8:19 EDT - 10/30/2020 23:59 EDT Hospital Encounter [facility] Center Hematology & Oncology - Main [place] [address] [place], [place] [address] Malignant neoplasm of upper-inner quadrant of left [...] 07/15/2020 9:13 EST documented in this encounter Medications at Time [...] Max: 24 mg 30 Tablet 1 03/26/20 21 INTRAUTERINE DEVICE, IUD, INTRAUTERINE by [...] as needed for Nausea. 60 Tab 2 03/03/12/26/19 oxybutynin (DITROPAN) 5 mg tablet Take 5 mg by mouth daily. 11/28/19 prochlorperazine (COMPAZINE) 10 mg tablet Take 1 Tab by mouth every 6 hours as needed for Nausea. 30 Tab 5 12/26/19 traMADol (ULTRAM) 50 mg tablet Take 1 Tab by mouth every 6 hours as needed for Pain. Daily Max: 200 mg 20 Tab 1 11/28/19 21 triamcinolone acetonide (KENALOG) 0.1 % pasteIndications:Ma lignant 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, estrogen receptor negative (HCC-CMS) Apply to affected area up to three times daily as needed for pain. 1 Tube 03/26/20 varenicline tartrate (CHANTIX ORAL) Take by mouth daily. 11/28/19 documented as of this encounter Discharge Disposition Disposition Code Departure Means Destination Home or Self Care documented in this encounter Progress Notes * Sofia Jade RN - 10/30/2020 0830 EDT Out-patient Chemotherapy Note Patient presents [...] 02/28/2025 13:00 EDT Office Visit [facility] Surgical Oncology - [facility] [address] [place], [place] [address] Maeve Morales, DO [address] [place] [address], Level [address] [place] [phone] documented as of this encounter Procedures Procedure [...] 6.81 4.00 - 12.40 K/cmm 10/30/2020 8:56 T [facility] RBC 4.19 3.86 - 5.04 M/cmm 10/30/2020 8:56 [facility] Hemoglobin 12.5 11.6 - 15.2 gm/dL 10/30/2020 8:56 [facility] HCT 36.8 34.9 - 44.4 % 10/30/2020 8:56 [facility] MCV 88 81 - 98 fl 10/30/2020 8:56 [facility] MCH 29.8 26.7 - 33.3 pg 10/30/2020 8:56 [facility] MCHC 34.0 32.1 - 35.9 gm/dL 10/30/2020 8:56 [facility] RDW-CV 16.0(H) <14.7 % 10/30/2020 8:56 [facility] RDW-SD 49.0 <50.4 fl 10/30/2020 8:56 T [facility] PLT 204 141 - 377 K/cmm 10/30/2020 8:56 [facility] MPV 9.9 9.5 - 12.7 fl 10/30/2020 8:56 [facility] % Neutrophils 60.2 % 10/30/2020 8:56 [facility] Absolute Neutrophils 4.10 2.20 - 8.85 K/cmm 10/30/2020 8:56 [facility] Type of Differential: Auto 10/30/2020 8:56 [facility] Blood BLOOD SAMPLE TAKEN FROM CENTRAL LINE / Unknown Venipuncture / Unknown 10/30/2020 8:35 EDT 10/30/2020 8:46 EDT us Queenie Conde MD PACKAGES & DNA PROBE ORDERABLES Final Result [facility] [address] [place] [address] * (ABNORMAL) COMPREHENSIVE METABOLIC PANEL (ONCOLOGY USE ONLY-INC MG) (10/30/2020 8:35 EDT) Sodium 139 136 - 145 mEq/L 10/30/2020 9:21 [facility] Potassium 4.0 3.5 - 5.0 mEq/L 10/30/2020 9:21 [facility] Chloride 101 96 - 110 mEq/L 10/30/2020 9:21 [facility] CO2 Total 27 22 - 32 mEq/L 10/30/2020 9:21 [facility] Glucose 154(H) 70 - 100 mg/dL 10/30/2020 9:21 [facility] BUN 12 10 - 26 mg/dL 10/30/2020 9:21 [facility] Creatinine 0.40(L) 0.52 - 1.04 mg/dL 10/30/2020 9:21 [facility] eGFR 126 >60 mL/min/1.7 3m2 10/30/2020 9:21 [facility] Comment:eGFR calculated mata asif CKD-EPI equation for non- Americans. Multiply eGFR by 1.16 for patients. Total Protein 7.0 6.3 - 8.2 g/dL 10/30/2020 9:21 [facility] Albumin 4.3 3.4 - 4.9 g/dL 10/30/2020 9:21 [facility] Alkaline Phosphatase 162(H) 38 - 126 U/L 10/30/2020 9:21 [facility] AST 51(H) 15 - 46 U/L 10/30/2020 9:21 [facility] ALT 84(H) <35 U/L 10/30/2020 9:21 [facility] Bilirubin, Total <0.5 <1.4 mg/dL 10/31/19 9:21 [facility] Calcium 9.3 8.5 - 10.5 mg/dL 10/30/2020 9:21 [facility] Calculated Calcium 9.1 8.5 - 10.5 mg/dL 10/30/2020 9:21 [facility] Magnesium 1.9 1.7 - 2.8 mg/dL 10/30/2020 9:21 [facility] Blood VENOUS BLOOD / Unknown Central Line Draw / Unknown 10/30/2020 8:35 EDT 10/30/2020 8:46 EDT us Queenie Conde MD CHEMISTRY & BLOOD GAS ORDERABLES Final Result [facility] [address] [place] [address] documented in this encounter Visit Diagnoses Diagnosis [...] Minutes, NOW X1, 1 dose, On Klaudia 10/30/20 at 1100, RoutineIndications:Maligna nt 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, estrogen receptor negative (HCC-CMS) New Bag 10/30/2020 11:00 EDT 1,188 mg P ort dexAMETHasone (DECADRON) tablet 12 mg 12 mg, oral, NOW X1, 1 dose, On Klaudia 10/30/20 at 0945, RoutineIndications:Maligna nt 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, estrogen receptor negative (HCC-CMS) Given 10/30/2020 9:45 EDT 12 mg DOXOrubicin (ADRIAMYCIN) chemo injection 118.8 mg 118.8 mg (60 mg/m2 ? 1.98 m2 Treatment Plan BSA from Recorded weight), intravenous, NOW X1, 1 dose, On Klaudia 10/30/20 at 1045, RoutineIndications:Maligna nt 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, estrogen receptor negative (HCC-CMS) Given 10/30/2020 10:40 EDT 118.8 mg P ort fosaprepitant (EMEND) 150 mg in sodium chloride (NS) 0.9 % 150 mL infusion 150 mg, intravenous, Administer over 30 Minutes, NOW X1, 1 dose, On Klaudia 10/30/20 at 0945, RoutineIndications:Maligna nt 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, estrogen receptor negative (HCC-CMS) New Bag 10/30/2020 10:00 EDT 150 mg P ort palonosetron (ALOXI) injection 0.25 mg 0.25 mg, intravenous, NOW X1, 1 dose, On Klaudia 10/30/20 at 0945, RoutineIndications:Maligna nt 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, estrogen receptor negative (HCC-CMS) Given 10/30/2020 9:55 EDT 0.25 mg Po rt pegfilgrastim (NEULASTA ONPRO) wearable subcutaneous injection 6 mg 6 mg, subcutaneous, NOW X1, 1 dose, On Klaudia 10/30/20 at 0945, RoutineIndications:Maligna nt 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, estrogen receptor negative (HCC-CMS) Given 10/30/2020 11:06 EDT 6 mg L eft Arm sodium chloride 0.9 % (flush) flush 20 mL 20 mL, intercatheter, PRN, Starting on Klaudia 10/30/20 at 0929, Until 11/02/20 at 0205, Line Care, RoutineIndications:Maligna nt 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, estrogen receptor negative (HCC-CMS) Given 10/30/2020 11:31 EDT 20 mL P ort sodium chloride 0.9 % (NS) infusion at 100 mL/hr, 250 mL, intravenous, CONTINUOUS, Starting on Klaudia 10/30/20 at 0945, Until Tue10/31/20 at 0944, RoutineIndications:Maligna nt 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, estrogen receptor negative (HCC-CMS) New Bag 10/30/2020 9:45 EDT 250 mL 100 mL/hr Po rt documented in this encounter Orders Medications Ordered That Juanito ht Not Have Been Administered Count Last Ordered Date First Ordered Date LORazepam (ATIVAN) tablet 1 mg 1 10/30/2020 Appointment Requests Count Last Ordered Date Fi rst Ordered Date ONCBCN INFUSION APPOINTMENT REQUEST - CALCULATED 1 10/30/2020 documented in this encounter Care Teams Synthetic Filament Extruder Relationship Specialty Start Date End Date Batsheva Lira FNP [address] [phone] PCP - General 02/19/20 07/21/22 documented as of this encounter
--- OUTSIDE RECORDS SUMMARY | 2024-05-04 01:31 | XMS_ITS | Encounter Summary ---
Author Organization [facility] Address [address] [place] [address] Care Team Providers Care Bowling Alley Manager Name Role Phone Batsheva Lira JOHN Primary Care Provider [phone] Reason for Visit * Reason Onset Date Comments Critical Value 10/23/2020 Encounter Details Date Type Department Care Team (Late st Contact Info) Description 10/23/2020 Telephone [facility] Center Hematology & Oncology - [facility] [address] [place] [address] [place] [address] [place] [phone] Critical Value Social History Tobacco Use [...] Office Visit [facility] Surgical Oncology - [address] [phone] Maeve Morales DO [address] [place] [address], [address] [place] [phone] documented as of this encounter Visit Diagnoses Not on filedocumented in this encounter Care Teams Bowling Alley Manager Relationship Specialty Start Date End Date Batsheva Lira FNP [address] [place] [phone] PCP - General 02/19/20 07/21/22 documented as of this encounter
--- OUTSIDE RECORDS SUMMARY | 2024-05-04 01:31 | XMS_ITS | Encounter Summary ---
Author Organization [facility] Address [address] [place] [address] Care Team Providers Care Engagement Engineer Name Role Phone Batsheva Lira JOHN Primary Care Provider [phone] Encounter Details Date Type Department Care Team (Late st Contact Info) Description 10/23/2020 9:15 EDT Phlebotomy Only [facility] 2 Phlebotomy [address] [place] [address] Machine Setter Sheet Metal, Acc Phlebotomy Malignant 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, estrogen receptor negative ([facility]) Social History Tobacco Use Types Packs/Day Years [...] [facility] Surgical Oncology - [address] [address] Maeve Morales, DO [address] [facility], [facility], Level [address] [place] [phone] documented as of this encounter Procedures Procedure [...] the WBC and/or platelet count. 10/23/2020 10:52 [facility] Blood VENOUS BLOOD / Unknown Venipuncture / Unknown 10/23/2020 9:10 EDT 10/23/2020 9:56 EDT us Queenie Conde MD HEMATOLOGY & PF4 ORDERABLES Jessy l Result [facility] [address] [place] [address] * (ABNORMAL) DIFFERENTIAL, AUTOMATED MANUAL (10/23/2020 9:10 EDT) % Neutrophils 9.7 % 10/23/2020 10:53 [facility] % Banded Neutrophils 2.6 % 10/23/2020 10:53 [facility] % Lymphocytes 66.7 % 10/23/2020 10:53 [facility] % Atypical Lymphocytes 3.5 % 10/23/2020 10:53 [facility] % Monocytes 10.5 % 10/23/2020 10:53 [facility] % Eosinophils 6.1 % 10/23/2020 10:53 [facility] % Basophils 0.9 % 10/23/2020 10:53 [facility] Absolute Neutrophils 0.13(LL) 2.20 - 8.85 K/cmm 10/23/2020 10:53 [facility] Absolute Bands 0.04 K/cmm 10/23/2020 10:53 [facility] Absolute Lymphocytes 0.92(L) 1.09 - 3.30 K/cmm 10/23/2020 10:53 [facility] Absolute Atypical Lymphocytes 0.05 K/cmm 10/23/2020 10:53 [facility] Absolute Monocytes 0.14 0.10 - 0.80 K/cmm 10/23/2020 10:53 [facility] Absolute Eosinophils 0.08 0.03 - 0.61 K/cmm 10/23/2020 10:53 EDT [facility] ABS Basophils 0.01 0.01 - 0.11 K/cmm 10/23/2020 10:53 [facility] Blood VENOUS BLOOD / Unknown Venipuncture / Unknown 10/23/2020 9:10 EDT 10/23/2020 9:56 EDT us Queenie Conde MD HEMATOLOGY & PF4 ORDERABLES Jessy varghese Result [facility] [address] [place] [address] * (ABNORMAL) COMPLETE BLOOD COUNT AND DIFF, CHEMO (10/23/2020 9:10 EDT) WBC 1.38(L) 4.00 - 12.40 K/cmm 10/23/2020 10:52 [facility] RBC 4.33 3.86 - 5.04 M/cmm 10/23/2020 10:52 [facility] Hemoglobin 12.7 11.6 - 15.2 gm/dL 10/23/2020 10:52 [facility] HCT 36.8 34.9 - 44.4 % 10/23/2020 10:52 [facility] MCV 85 81 - 98 fl 10/23/2020 10:52 [facility] MCH 29.3 26.7 - 33.3 pg 10/23/2020 10:52 [facility] MCHC 34.5 32.1 - 35.9 gm/dL 10/23/2020 10:52 [facility] RDW-CV 14.3 <14.7 % 10/23/2020 10:52 [facility] RDW-SD 44.2 <50.4 fl 10/23/2020 10:52 [facility] PLT 70(L) 141 - 377 K/cmm 10/23/2020 10:52 [facility] MPV 10.3 9.5 - 12.7 fl 10/23/2020 10:52 [facility] Type of Differential: Manual 10/23/2020 10:52 [facility] Comment:Automated differenti al not available. Manual differential to follow. Blood VENOUS BLOOD / Unknown Venipuncture / Unknown 10/23/2020 9:10 EDT 10/23/2020 9:56 EDT Queenie Conde MD PACKAGES & DNA PROBE ORDERABLES Final Result [facility] [address] [place] [address] * (ABNORMAL) COMPREHENSIVE METABOLIC PANEL (ONCOLOGY USE ONLY-INC MG) (10/23/2020 9:10 EDT) Sodium 140 136 - 145 mEq/L 10/23/2020 10:11 [facility] Potassium 3.9 3.5 - 5.0 mEq/L 10/23/2020 10:11 [facility] Chloride 101 96 - 110 mEq/L 10/23/2020 10:11 [facility] CO2 Total 26 22 - 32 mEq/L 10/23/2020 10:11 [facility] Glucose 155(H) 70 - 100 mg/dL 10/23/2020 10:11 [facility] BUN 9(L) 10 - 26 mg/dL 10/23/2020 10:11 [facility] Creatinine 0.42(L) 0.52 - 1.04 mg/dL 10/23/2020 10:11 [facility] eGFR 124 >60 mL/min/1.7 3m2 10/23/2020 10:11 [facility] Comment:eGFR calculated mata asif CKD-EPI equation for non- Americans. Multiply eGFR by 1.16 for patients. Total Protein 7.0 6.3 - 8.2 g/dL 10/23/2020 10:11 [facility] Albumin 4.2 3.4 - 4.9 g/dL 10/23/2020 10:11 [facility] Alkaline Phosphatase 159(H) 38 - 126 U/L 10/23/2020 10:11 EDT [facility] AST 38 15 - 46 U/L 10/23/2020 10:11 EDT [facility] ALT 66(H) <35 U/L 10/23/2020 10:11 EDT [facility] Bilirubin, Total <0.5 <1.4 mg/dL 10/24/19 10:11 EDT [facility] Calcium 9.3 8.5 - 10.5 mg/dL 10/23/2020 10:11 T [facility] Calculated Calcium 9.1 8.5 - 10.5 mg/dL 10/23/2020 10:11 T [facility] Magnesium 1.8 1.7 - 2.8 mg/dL 10/23/2020 10:11 T [facility] Blood VENOUS BLOOD / Unknown Venipuncture / Unknown 10/23/2020 9:10 EDT 10/23/2020 9:56 EDT us Queenie Conde MD CHEMISTRY & BLOOD GAS ORDERABLES Final Result [facility] [address] [place] [address] documented in this encounter Visit Diagnoses Diagnosis Malignant 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, estrogen receptor negative (HCC-CMS) documented in this encounter Care Teams Engagement Engineer Relationship Specialty Start Date End Date Batsheva Lira FNP [address] [phone] PCP - General 02/19/20 07/21/22 documented as of this encounter
--- OUTSIDE RECORDS SUMMARY | 2024-05-04 01:31 | XMS_ITS | Encounter Summary ---
Author Organization [facility] Address [address] [place] [address] Care Team Providers Care Custom Home Installer Name Role Phone Batsheva Lira JOHN Primary Care Provider [phone] Reason for Visit * Reason Comments Follow-up Encounter Details Date Type Department Care Team (Late st Contact Info) Description 11/25/2020 10:20 EDT Office Visit [facility] Surgical Oncology - [address] [id number] Maeve Morales, DO [address] [facility] 2 [place] [phone] Malignant neoplasm of upper-inner quadrant of left [...] Exercise involving walking july till february- runs [employer]- very active. ??? Head trauma 06/19/20 [...] and cover, 1 hr before planned port [id number] g 1 ??? OLANZapine (ZYPREXA) 5 mg [...] receptor negative (HCC-CMS) (primary encounter diagnosis) Maeve Moraels DO No orders of the defined types were placed in this encounter. documented in this encounter Plan of Treatment Upcoming Encounters Date Type Department Care Team (Late st Contact Info) Description 02/28/2025 13:00 EDT Office Visit [facility] Surgical Oncology - [facility] [address] [place] [address] Maeve Morales, DO [address] [facility], Level 2 [place] [phone] documented as of this encounter Procedures Procedure Name Priority Date/Time Associated Diagnosis Comments ORDERS - SCANNED 12/08/2020 14:25 EDT documented in this encounter Results * ORDERS - SCANNED (12/08/2020 14:25 EDT) 12/08/2020 14:2 5 EDT us Scan 2 [employer] Host[employer] ADMISSION ORDERABLES Final Result documented in this encounter Visit Diagnoses Diagnosis Malignant 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, estrogen receptor negative (HCC-CMS)- Primary documented in this encounter Care Teams Custom Home Installer Relationship Specialty Start Date End Date Batsheva Lira FNP [address] [address] PCP - General 02/19/20 07/21/22 documented as of this encounter
--- OUTSIDE RECORDS SUMMARY | 2024-05-04 01:31 | XMS_ITS | Encounter Summary ---
Author Organization [facility] Address [address] [place] [address] Care Team Providers Care Poultry Process Worker Name Role Phone Batsheva Lira JOHN Primary Care Provider [phone] Encounter Details Date Type Department Care Team (Latest Contact Info) Description 11/27/2020 8:54 EDT - 11/27/2020 23:59 EDT Hospital Encounter [facility] Hematology & Oncology - [address] [place] [address] [place], [place] [address] Malignant neoplasm of upper-inner quadrant of left [...] Date of Assessment Author No 11/21/2020 23:37 OSMANIT Jennie Stokes RN * Are you blind [...] DEVICE, IUD, INTRAUTERINE by intrauterine route. 01/12/20 lidocaine-prilocain e (EMLA) cream Apply to port [...] tx was given at that time). Prema QUINTANILLA notified of increased LFTS- ok totreat despite [...] applied to LEFT arm At 1145 per engineering consultant's instructions. Cannula inserted without issue, injector noted with slow-flashing green light. Provided engineering consultant's instructions to patient and reviewed them. Patient [...] Info) Description 02/28/2025 13:00 EDT Office Visit [facility] Surgical On[facility] - [facility] [address] [place], [place] [phone] Maeve Morales, DO 111 [facility], Level [address] [place] [address] documented as of this encounter [...] 8.27 4.00 - 12.40 K/cmm 11/27/2020 9:32 EDT [facility] RBC 3.79(L) 3.86 - 5.04 M/cmm 11/27/2020 9:32 EDT [facility] Hemoglobin 11.6 11.6 - 15.2 gm/dL 11/27/2020 9:32 T [facility] HCT 34.2(L) 34.9 - 44.4 % 11/27/2020 9:32 [facility] MCV 90 81 - 98 fl 11/27/2020 9:32 [facility] MCH 30.6 26.7 - 33.3 pg 11/27/2020 9:32 EDT [facility] MCHC 33.9 32.1 - 35.9 gm/dL 11/27/2020 9:32 [facility] RDW-CV 18.5(H) <14.7 % 11/27/2020 9:32 [facility] RDW-SD 57.1(H) <50.4 fl 11/27/2020 9:32 [facility] PLT 184 141 - 377 K/cmm 11/27/2020 9:32 [facility] MPV 10.2 9.5 - 12.7 fl 11/27/2020 9:32 [facility] % Neutrophils 64.9 % 11/27/2020 9:32 [facility] Absolute Neutrophils 5.36 2.20 - 8.85 K/cmm 11/27/2020 9:32 [facility] Type of Differential: Auto 11/27/2020 9:32 [facility] Blood VENOUS BLOOD / Unknown Venipuncture / Unknown 11/27/2020 9:10 EDT 11/27/2020 9:27 EDT us Queenie Conde MD PACKAGES & DNA PROBE ORDERABLES Final Result [facility] [address] [place] [address] * (ABNORMAL) COMPREHENSIVE METABOLIC PANEL (ONCOLOGY USE ONLY-INC MG) (11/27/2020 9:10 EDT) Sodium 138 136 - 145 mEq/L 11/27/2020 10:12 [facility] Potassium 4.1 3.5 - 5.0 mEq/L 11/27/2020 10:12 [facility] Chloride 100 96 - 110 mEq/L 11/27/2020 10:12 [facility] CO2 Total 23 22 - 32 mEq/L 11/27/2020 10:12 [facility] Glucose 197(H) 70 - 100 mg/dL 11/27/2020 10:12 [facility] BUN 15 10 - 26 mg/dL 11/27/2020 10:12 [facility] Creatinine 0.40(L) 0.52 - 1.04 mg/dL 11/27/2020 10:12 [facility] eGFR 126 >60 mL/min/1.7 3m2 11/27/2020 10:12 [facility] Comment:eGFR calculated mata asif CKD-EPI equation for non- Americans. Multiply eGFR by 1.16 for patients. Total Protein 7.2 6.3 - 8.2 g/dL 11/27/2020 10:12 [facility] Albumin 4.7 3.4 - 4.9 g/dL 11/27/2020 10:12 [facility] Alkaline Phosphatase 155(H) 38 - 126 U/L 11/27/2020 10:12 [facility] AST 60(H) 15 - 46 U/L 11/27/2020 10:12 [facility] ALT 98(H) <35 U/L 11/27/2020 10:12 [facility] Bilirubin, Total <0.5 <1.4 mg/dL 11/28/19 10:12 [facility] Calcium 9.5 8.5 - 10.5 mg/dL 11/27/2020 10:12 [facility] Calculated Calcium 8.9 8.5 - 10.5 mg/dL 11/27/2020 10:12 [facility] Magnesium 1.8 1.7 - 2.8 mg/dL 11/27/2020 10:12 [facility] Blood VENOUS BLOOD / Unknown Venipuncture / Unknown 11/27/2020 9:10 EDT 11/27/2020 9:27 EDT Queenie Conde MD CHEMISTRY & BLOOD GAS ORDERABLES Final Result [facility] [address] [place] [address] documented in this encounter Visit Diagnoses Diagnosis [...] 1 dose, On Klaudia 11/27/20 at 1115, RoutineIndications:Malignant 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, estrogen receptor negative (HCC-CMS) New Bag 11/27/2020 11:37 EDT 1,188 mg dexAMETHasone (DECADRON) tablet 12 mg 12 mg, oral, NOW X1, 1 dose, On Klaudia 11/27/20 at 1000, RoutineIndications:Malignant 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, estrogen receptor negative (HCC-CMS) Given 11/27/2020 10:15 EDT 12 mg DOXOrubicin (ADRIAMYCIN) chemo injection 118.8 mg 118.8 mg (60 mg/m2 ? 1.98 m2 Treatment Plan BSA from Recorded weight), intravenous, NOW X1, 1 dose, On Klaudai 11/27/20 at 1100, RoutineIndications:Malignant 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, estrogen receptor negative (HCC-CMS) Given 11/27/2020 11:14 EDT 118.8 mg fosaprepitant (EMEND) 150 mg in sodium chloride (NS) 0.9 % 150 mL infusion 150 mg, intravenous, Administer over 30 Minutes, NOW X1, 1 dose, On Klaudia 11/27/20 at 1000, RoutineIndications:Malignant 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, estrogen receptor negative (HCC-CMS) New Bag 11/27/2020 10:26 EDT 150 mg palonosetron (ALOXI) injection 0.25 mg 0.25 mg, intravenous, NOW X1, 1 dose, On Klaudia 11/27/20 at 1000, RoutineIndications:Malignant 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, estrogen receptor negative (HCC-CMS) Given 11/27/2020 10:16 EDT 0.25 mg pegfilgrastim (NEULASTA ONPRO) wearable subcutaneous injection 6 mg 6 mg, subcutaneous, NOW X1, 1 dose, On Klaudia 11/27/20 at 1000, RoutineIndications:Malignant 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, estrogen receptor negative (HCC-CMS) Given 11/27/2020 11:44 EDT 6 mg sodium chloride 0.9 % (NS) infusion at 100 mL/hr, 250 mL, intravenous, CONTINUOUS, Starting on Klaudia 11/27/20 at 1000, Until Tue11/28/20 at 1018, RoutineIndications:Malignant 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, estrogen receptor negative (HCC-CMS) New Bag 11/27/2020 10:19 EDT 250 mL 100 mL/hr documented in this encounter Orders Medications Ordered That Juanito ht Not Have Been Administered Count Last Ordered Date First Ordered Date LORazepam (ATIVAN) tablet 1 mg 1 11/27/2020 sodium chloride 0.9 % (flush) flush 20 mL 1 11/27/2020 Nursing Count Last Ordered Date First Orde red Date TREAT DESPITE 1 11/27/2020 Appointment Requests Count Last Ordered Date Fi rst Ordered Date ONCBCN INFUSION APPOINTMENT REQUEST - CALCULATED 1 11/27/2020 documented in this encounter Care Teams Poultry Process Worker Relationship Specialty Start Date End Date Batsheva Lira FNP [address] [address] PCP - General 02/19/20 07/21/22 documented as of this encounter
--- OUTSIDE RECORDS SUMMARY | 2024-05-04 01:31 | XMS_ITS | Encounter Summary ---
Author Organization [facility] Address [address] [place] [address] Care Team Providers Care Food Safety Auditor Name Role Phone Batsheva Lira JOHN Primary Care Provider [phone] Reason for Referral * Cardiology (Routine) - Closed Specialty Diagnoses / Procedures Referred By Contac t Referred To Contact Diagnoses Malignant neoplasm of left breast in female, estrogen receptor negative, unspecified site of breast (HCC-CMS) Procedures TRANSTHORACIC ECHO (TTE) Queenie Gonzalez MD Phone: tel: fax: Referral ID Status Reason Start Date Expiration Date Visits Re quested Visits Authorized [id number] Closed 07/15/2020 1 1 Reason for Visit * Cardiology (Routine) - Closed Specialty Diagnoses / Procedures Referred By Contac t Referred To Contact Diagnoses Malignant neoplasm of left breast in female, estrogen receptor negative, unspecified site of breast (HCC-CMS) Procedures TRANSTHORACIC ECHO (TTE) Queenie Gonzalez MD Phone: tel: fax: Referral ID Status Reason Start Date Expiration Date Visits Re quested Visits Authorized [id number] Closed 07/15/2020 1 1 Encounter Details Date Type Department Care Team (Latest Contact Info) Description 10/08/2020 10:15 EDT - 10/08/2020 23:59 EDT Hospital Encounter [facility] Non-Invasive Cardiology - [address] [address] Malignant neoplasm of left breast in female, [...] 2.5 mg by mouth daily. 01/12/20 22 escitalopram oxalate (LEXAPRO) 10 mg tablet Take 30 mg by mouth daily. 12/04/19 23 INTRAUTERINE DEVICE, IUD, INTRAUTERINE by intrauterine route. 01/12/20 22 lidocaine-prilocain e (EMLA) cream Apply to port site and cover, 1 hr before planned port access 25 g 1 1 03/26/20 21 omeprazole (PRILOSEC) 40 mg capsule Take 1 Cap by mouth at bedtime. 30 Cap 2 1 12/31/19 21 ondansetron (ZOFRAN-ODT) 8 mg disintegrating tablet Take 1 Tab by mouth every 8 hours as needed for Nausea. 60 Tab 2 1 12/26/19 21 oxybutynin (DITROPAN) 5 mg tablet Take 5 mg by mouth daily. 11/28/19 21 prochlorperazine (COMPAZINE) 10 mg tablet Take 1 Tab by mouth every 6 hours as needed for Nausea. 30 Tab 5 1 12/26/19 21 traMADol (ULTRAM) 50 mg tablet Take 1 [...] for pain. 1 Tube 1 03/26/20 21 varenicline tartrate (CHANTIX ORAL) Take by mouth daily. 11/28/19 21 documented as of this encounter Discharge Disposition Disposition Code Departure Means Destination Home or Self Care documented in this encounter Plan of Treatment Upcoming Encounters Date Type Department Care Team (Late st Contact Info) Description 02/28/2025 13:00 EDT Office Visit [facility] Surgical Oncology - [address] [address] Maeve Morales, DO 111 [facility], Level 2 [place] [address] documented as of this encounter Procedures Procedure [...] color Doppler.The study was interpreted by [facility]. Pertinent images and digital data are archived for permanent storage and are available for subsequent review. Scanning was performed from the apical, parasternal, subcostal and suprasternal acoustic windows. Overall the study quality was adequate. The study was difficult due to patient body habitus and heart rhythm. Images were obtained using cardiac ultrasound machine EPIQ #[id number]. us Queenie Conde MD CARDIAC ECHO ORDERABLES Final Re sult documented in this encounter Visit Diagnoses Diagnosis Malignant neoplasm of left breast in female, estrogen receptor negative, unspecified site of breast (HCC-CMS) documented in this encounter Care Teams Food Safety Auditor Relationship Specialty Start Date End Date Batsheva Lira FNP [address] [address] PCP - General 02/19/20 07/21/22 documented as of this encounter
--- OUTSIDE RECORDS SUMMARY | 2024-05-04 01:31 | XMS_ITS | Encounter Summary ---
Author Organization [facility] Address [address] [place] [address] Care Team Providers Care Capacitor Assembler Name Role Phone Batsheva Lira JOHN Primary Care Provider [phone] Reason for Visit * Reason Comments Chemotherapy Encounter Details Date Type Department Care Team (Latest Contact Info) Description 11/13/2020 12:39 EDT - 11/13/2020 23:59 EDT Hospital [facility] H[facility] & Oncology - [address] [place], [place] [id number] Malignant neoplasm of upper-inner quadrant of left [...] for 21 days. 84 capsule 1 01/16/20 21 escitalopram oxalate (LEXAPRO) 10 mg [...] this encounter Progress Notes * Emily Nowak, RN - 11/13/2020 1300 EDT Out-patient Chemotherapy Note [...] injector applied to left upper arm per medical office technician's instructions. Cannula insertedwithout issue, injector noted with slow-flashing green light. Provided medical office technician's instructions to patient and reviewed them. Patient [...] Visit [facility] Surgical Oncology - [facility] [address] [place], [place] [id number] Maeve Morales, DO 111 [facility], Level [address] [place] [phone] documented as of this encounter Procedures Procedure [...] 7.88 4.00 - 12.40 K/cmm 11/13/2020 13:18 [facility] RBC 3.77(L) 3.86 - 5.04 M/cmm 11/13/2020 13:18 [facility] Hemoglobin 11.7 11.6 - 15.2 gm/dL 11/13/2020 13:18 [facility] HCT 33.2(L) 34.9 - 44.4 % 11/13/2020 13:18 [facility] MCV 88 81 - 98 fl 11/13/2020 13:18 [facility] MCH 31.0 26.7 - 33.3 pg 11/13/2020 13:18 [facility] MCHC 35.2 32.1 - 35.9 gm/dL 11/13/2020 13:18 [facility] RDW-CV 16.8(H) <14.7 % 11/13/2020 13:18 [facility] RDW-SD 50.4(H) <50.4 fl 11/13/2020 13:18 [facility] PLT 190 141 - 377 [facility] 11/13/2020 13:18 [facility] MPV 10.2 9.5 - 12.7 fl 11/13/2020 13:18 [facility] % Neutrophils 66.3 % 11/13/2020 13:18 [facility] Absolute Neutrophils 5.22 2.20 - 8.85 K/[facility] 11/13/2020 13:18 [facility] Type of Differential: Auto 11/13/2020 13:18 [facility] Blood VENOUS BLOOD / Unknown Venipuncture / Unknown 11/13/2020 12:47 EDT 11/13/2020 13:01 EDT us Queenie Conde MD PACKAGES & DNA PROBE ORDERABLES Final Result [facility] [address] [place] [address] * (ABNORMAL) COMPREHENSIVE METABOLIC PANEL (ONCOLOGY USE ONLY-INC MG) (11/13/2020 12:47 EDT) Sodium 140 136 - 145 mEq/L 11/13/2020 13:19 [facility] Potassium 4.0 3.5 - 5.0 mEq/L 11/13/2020 13:19 [facility] Chloride 104 96 - 110 mEq/L 11/13/2020 13:19 [facility] CO2 Total 23 22 - 32 mEq/L 11/13/2020 13:19 [facility] Glucose 206(H) 70 - 100 mg/dL 11/13/2020 13:19 [facility] BUN 13 10 - 26 mg/dL 11/13/2020 13:19 [facility] Creatinine 0.38(L) 0.52 - 1.04 mg/dL 11/13/2020 13:19 [facility] eGFR 128 >60 mL/min/1.7 3m2 11/13/2020 13:19 [facility] Comment:eGFR calculated mata asif CKD-EPI equation for non- Americans. Multiply eGFR by 1.16 for patients. Total Protein 6.9 6.3 - 8.2 g/dL 11/13/2020 13:19 [facility] Albumin 4.3 3.4 - 4.9 g/dL 11/13/2020 13:19 [facility] Alkaline Phosphatase 142(H) 38 - 126 U/L 11/13/2020 13:19 [facility] AST 56(H) 15 - 46 U/L 11/13/2020 13:19 [facility] ALT 91(H) <35 U/L 11/13/2020 13:19 [facility] Bilirubin, Total <0.5 <1.4 mg/dL 11/14/19 13:19 [facility] Calcium 9.2 8.5 - 10.5 mg/dL 11/13/2020 13:19 [facility] Calculated Calcium 9.0 8.5 - 10.5 mg/dL 11/13/2020 13:19 [facility] Magnesium 1.8 1.7 - 2.8 mg/dL 11/13/2020 13:19 [facility] Blood VENOUS BLOOD / Unknown Venipuncture / Unknown 11/13/2020 12:47 EDT 11/13/2020 13:01 EDT us Queenie Conde MD CHEMISTRY & BLOOD GAS ORDERABLES Final Result [facility] [address] [place] [address] documented in this encounter Visit Diagnoses Diagnosis [...] X1, 1 dose, On Tue11/13/20 at 1500, RoutineIndications:Malignant 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, estrogen receptor negative (HCC-CMS) New Bag 11/13/2020 14:43 EDT 1,188 mg dexAMETHasone (DECADRON) tablet 12 mg 12 mg, oral, NOW X1, 1 dose, On Tue11/13/20 at 1345, RoutineIndications:Malignant 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, estrogen receptor negative (HCC-CMS) Given 11/13/2020 13:54 EDT 12 mg DOXOrubicin (ADRIAMYCIN) chemo injection 118.8 mg 118.8 mg (60 mg/m2 ? 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, estrogen receptor negative (HCC-CMS) New Bag 11/13/2020 14:05 EDT 150 mg palonosetron (ALOXI) injection 0.25 mg 0.25 mg, intravenous, NOW X1, 1 dose, On Klaudia 11/13/20 at 1345, RoutineIndications:Malignant 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, estrogen receptor negative (HCC-CMS) Given 11/13/2020 13:46 EDT 0.25 mg pegfilgrastim (NEULASTA ONPRO) wearable subcutaneous injection 6 mg 6 mg, subcutaneous, NOW X1, 1 dose, On Klaudia 11/13/20 at 1415, RoutineIndications:Malignant 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, estrogen receptor negative (HCC-CMS) Given 11/13/2020 15:38 EDT 6 mg sodium chloride 0.9 % (NS) infusion at 100 mL/hr, 250 mL, intravenous, CONTINUOUS, Starting on Klaudia 11/13/20 at 1345, Until Tue11/14/20 at 1259, RoutineIndications:Malignant 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, estrogen receptor negative (HCC-CMS) New Bag 11/13/2020 13:00 EDT 250 mL 100 mL/hr documented in this encounter Orders Medications Ordered That Juanito ht Not Have Been Administered Count Last Ordered Date First Ordered Date LORazepam (ATIVAN) tablet 1 mg 1 11/13/2020 Appointment Requests Count Last Ordered Date Fi rst Ordered Date ONCBCN INFUSION APPOINTMENT REQUEST - CALCULATED 1 11/13/2020 documented in this encounter Care Teams Capacitor Assembler Relationship Specialty Start Date End Date Batsheva Lira FNP [address] [phone] PCP - General 02/19/20 07/21/22 documented as of this encounter
--- OUTSIDE RECORDS SUMMARY | 2024-05-04 01:31 | XMS_ITS | Encounter Summary ---
Author Organization [facility] Address [address] [place] [address] Care Team Providers Care Barber Shop Operator Name Role Phone Batsheva Lira JOHN Primary Care Provider Pam Germain MD Unavailable [phone] Janay Duran ELECTRICAL ASSISTANT Primary Care Provider [phone] Inez Corado DO Primary Care Provid er Encounter Details Date Type Department Care Team (Late st Contact Info) Description 10/01/2020 Lab Requisition [facility] Pathology & Laboratory Medicine - [facility] [address] [place] [address] Judd Dye APRN Acute pharyngitis, unspecified; Cough Social History Tobacco [...] Info) Description 02/28/2025 13:00 EDT Office Visit [facility] Surgical Oncology - [address] [address] Maeve Morales, 111 [facility] Level 2 [place] [phone] documented as of this encounter Procedures Procedure Name Priority Date/Time Associated Diagnosis Comments ZZCOVID-19 TEST [facility] PCR Today 10/01/2020 14:15 EDT Acute pharyngitis, unspecified Cough COVID-19 TESTING Today 10/01/2020 14:1 5 EDT Acute pharyngitis, unspecified Cough documented in this encounter Results * COVID-19 TEST [facility] PCR (10/01/2020 14:15 EDT) Swab NASAL / Unknown 10/01/2020 1 4:15 EDT 10/01/2020 20:31 EDT Judd Dye ELECTRICAL ASSISTANT MICROBIOLOGY - GENERAL OR DERABLES Final Result [facility] [address] [place] [address] * COVID-19 TESTING (10/01/2020 14:15 EDT) COVID-19 rt-PCR Result Negative Negative 10/02/2020 19:[address] [facility] Comment: This test has [...] history, and epidemiological information. Performed on the [employer] Fusion instrument Performing Lab [place] [facility] 10/02/2020 19:[address] [facility] Swab NASAL / Unknown 10/01/2020 1 4:15 EDT 10/01/2020 20:31 EDT Judd Dye APRN MICROBIOLOGY - GENERAL OR DERABLES Final Result Performing Organization Address City/State/[facility] Co de Phone Number [facility] [address] [place] [address] documented in this encounter Visit Diagnoses Diagnosis Acute pharyngitis, unspecified Cough documented in this encounter Care Teams Barber Shop Operator Relationship Specialty Start Date End Date Batsheva Lira FNP [facility] [place] [address] PCP - General 02/19/20 07/21/22 Janay Duran APRN 111 [facility] [address] [place] [phone] PCP - General Family Medicine - Primary Care 07/22/22 02/12/24 Inez Corado DO [address] [place] [phone] PCP - General Family Medicine - Primary Care 02/13/24 Pam Germain MD 111 [facility], [address] [place] [address] Medical Oncology 03/22/22 documented as of this encounter
--- OUTSIDE RECORDS SUMMARY | 2024-05-04 01:31 | XMS_ITS | Encounter Summary ---
Author Organization [facility] Address [address] [place] [address] Care Team Providers Care Poultry Hanger Name Role Phone Batsheva Lira JOHN Primary Care Provider [phone] Encounter Details Date Type Department Care Team [...] [facility] Surgical Oncology - [address] [id number] Maeve Morales, DO [address] [facility], [address] [place] [id number] documented as of this encounter Visit Diagnoses Not on filedocumented in this encounter Care Teams Poultry Hanger Relationship Specialty Start Date End Date Batsheva Lira FNP [address] [phone] PCP - General 02/19/20 07/21/22 documented as of this encounter
--- OUTSIDE RECORDS SUMMARY | 2024-05-04 01:31 | XMS_ITS | Encounter Summary ---
Author Organization [facility] Address [address] [place] [address] Care Team Providers Care Him Analyst Name Role Phone Batsheva Lira JOHN Primary Care Provider [phone] Encounter Details Date Type Department Care Team [...] Visit [facility] Surgical Oncology - [address] [id number] Maeve Morales, DO [address] [facility], [address] [place] [phone] documented as of this encounter Visit Diagnoses Not on filedocumented in this encounter Care Teams Him Analyst Relationship Specialty Start Date End Date Batsheva Lira FNP [address] [phone] PCP - General 02/19/20 07/21/22 documented as of this encounter
--- OUTSIDE RECORDS SUMMARY | 2024-05-04 01:31 | XMS_ITS | Encounter Summary ---
Author Organization [facility] Address [address] [place] [address] Care Team Providers Care Quartz Miner Name Role Phone Batsheva Lira JOHN Primary Care Provider [phone] Encounter Details Date Type Department Care Team [...] Visit [facility] Surgical Oncology - [address] [address] Maeve Morales, DO [address] [facility], [address] [place] [phone] documented as of this encounter Visit Diagnoses Not on filedocumented in this encounter Care Teams Quartz Miner Relationship Specialty Start Date End Date Batsheva Lira FNP [address] [phone] PCP - General 02/19/20 07/21/22 documented as of this encounter
--- OUTSIDE RECORDS SUMMARY | 2024-05-04 01:31 | XMS_ITS | Encounter Summary ---
Author Organization [facility] Address [address] [place] [address] Care Team Providers Care Truck Loader And Unloader Name Role Phone Batsheva Lira JOHN Primary Care Provider Encounter Details Date Type Department Care Team (Late st Contact Info) Description 11/25/2020 10:15 EDT Ancillary Procedure [facility] Surgical Oncology - [place] [address] [place], [place] [address] Social History Tobacco Use Types Packs/Day Years [...] [facility] - [address] [id number] Maeve Morales, [address], [address] [place] [phone] documented as of this encounter Procedures Procedure Name Priority Date/Time Associated Diagnosis Comments [facility] Routine 11/25/2020 11:40 EDT documented in this encounter Results * [facility] ONLY (11/25/2020 11:40 EDT) Narrative [facility] POINT OF CARE - 11/25/2020 11:40 EDT This is a non-reportable exam. us Maeve Morales DO IMG US POC ORDERABLES Final Result [facility] POINT OF CARE documented in this encounter Visit Diagnoses Not on filedocumented in this encounter Care Teams Truck Loader And Unloader Relationship Specialty Start Date End Date aBtsheva Lira FNP [address] [phone] PCP - General 02/19/20 07/21/22 documented as of this encounter
--- OUTSIDE RECORDS SUMMARY | 2024-05-04 01:31 | XMS_ITS | Encounter Summary ---
Author Organization [facility] Address [address] [place] [address] Care Team Providers Care Blood Bank Calendar Control Clerk Name Role Phone Batsheva Lira JOHN Primary Care Provider [phone] Reason for Visit * Reason Comments Fever pt ambulatory to [facility] age with c/o fever, last temp [...] EDT - 11/23/2020 11:40 EDT Hospital Encounter [facility] Hematology & Oncology Unit [address] [place], [place] [id number] Hitesh Bashir MD 111 [facility], Level [address] [place] [address] Kenneth Thomas MD MPH [address] [phone] Kennedi Fang MD [address] [phone] Sepsis ([facility]) (Primary Dx); Fever and chills; Malignant neoplasm of right breast in female, estrogen receptor negative, unspecified site of breast ([facility]); Sepsis without acute organ dysfunction, due to unspecified organism ([facility]) Discharge Disposition: Home or Self Care Social [...] DT Height 165.1 cm (5' 5) 11/21/2020 233 EDT Body Mass Index 31.99 11/21/2020 2337 [...] Jennie Martinez RN documented in this encounter Discharge Summaries * Kennedi Fang [...] of breast in female, estrogen receptor negative ([facility]) 07/15/2020 Resolved Hospital Problems Diagnosis Date Noted [...] Administered Date(s) Administered ??? Covid-19 mRNA Vaccine ([employer] COVID-19) PF 0.3 ml IM (12 yrs+) 08/08/2020, 08/29/2020 Results Pending at Discharge Test results still pending from this admission Procedure Component Value Units Date/Time Hemoglobin A1c [[id number]] Collected: 11/22/20 0611 Lab Status: In process Specimen: Blood, Venous Updated: 11/22/20626 Bacterial Culture, Blood [[id number]] Collected: 11/21/202123 Lab Status: In process Specimen: Blood, Venous Updated: 11/21/202142 Bacterial Culture, Blood [[id number]] Collected: 11/21/202051 Lab Status: In process Specimen: Blood, Venous Updated: 11/21/202101 Upcoming Appointments Nov 25, 2020 10:20 (Arrive by 10:10) Follow Up Visit with Maeve Morales DO [facility] Surgical Oncology - [facility] ([facility]) [address] [facility] [address] Nov 27, 2020 9:00 Infusion with CHAIR 16 [facility] Hematology & Oncology - [facility] ([facility] [place]) [address] [facility] [address] Nov 27, 2020 9:20 Follow Up Visit with Liat Honeycutt PA-C [facility] Hematology & Oncology [facility] ([facility] [place]) [address] [facility] [address] Dec 04, 2020 10:00 PRE OP with Juanito Carcamo MD [facility] Plastic, Reconstructive & Cosmetic Surgery - [place] (--) [address], [address] [facility] [address] Dec 17, 2020 8:30 PAT Call with [facility] PAT CALL ROOM 5 [facility] Pre-Surgical Testing (--) [address] [place] [phone] Jan 01, 2021 10:00 Post Op Visit with Oksana Wilkins PA-C [facility] Plastic, Reconstructive & Cosmetic Surgery - [place] (--) [address] [place] [address], [address] [facility] [address] Jan 06, 2021 10:20 Post Op Visit with Maeve Morales DO [facility] Surgical Oncology - [facility] ([facility] [place]) [address] [place] [phone] Jan 06, 2021 11:30 Follow Up Visit with Queenie Conde MD [facility] Hematology & Oncology [facility] ([facility]) [address] [place] [phone] Follow-up appointments and procedures Amb Consult/Follow Up Primary Care Physician Reason for Request: Hospital Follow up Authorizing Provider: Lubna Sagastume MD Discharge Handoff Communication Patient's oncologist was notified via staff message. Discharge Summary Completed By: LUBNA SAGASTUME MD, PGY-2, Pager [phone] 11/23/2020 11:02 ATTENDING ATTESTATION: Date of service: [...] on date of discharge: 30 Minutes Kennedi Fang MD Division of Hospital Medicine 11/23/2020 11:53 [...] ?? Chronic medical issues Smoking cessation - AIRLINE RESERVATIONIST Chantix GERD - AIRLINE RESERVATIONIST PPI Depression -AIRLINE RESERVATIONIST lexapro VTE Prophylaxis Pharmacologic Prophylaxis: Enoxaparin (Lovenox) 40 mg SQ daily Discharge Plan likely DC 11/22 if stable overnight Consults None Nelly Cramer DO PGY-1 Internal Medicine Pager: [phone] ATTENDING ATTESTATION I interviewed and examined the [...] Notes * Chris Fernandes MD - 11/21/2020 0380 EDT Medical Oncology Admission History & Physical [...] lot as she has family visiting from [place], and thought maybe this is why she [...] Per Dr. Conde's note from 10/30/2020: [place]'s solar sales advisor noticed a mass in her left breast [...] continue treatment per oncology Smoking cessation - AIRLINE RESERVATIONIST Chantix GERD - AIRLINE RESERVATIONIST PPI VTE Prophylaxis Pharmacologic Prophylaxis: Enoxaparin (Lovenox) 40 mg SQ daily Code: Full Discharge Plan Home or self care Consults None Admission status Observation admission due to anticipated duration of hospitalization is less than two midnights. Patient warrants hospitalization because fever CHRIS FERNANDES MD 11/22/2020 5:02 Cosigned by Kenneth Thomas MD MPH at 11/22/2020 6:58 EDT Associated attestation - Kenneth Thomas MD MPH [...] ED Notes * Niels Espinosa - 11/21/2020 2118 EDT I, Niels Espinosa, notified Dr. MARQUEZ of LACTIC ACID OF 3.0 on 11/21/2020 at 21:18. * Hitesh Bashir MD - 11/21/20202048 EDT This patient received an evaluation and medical screening exam for emergent medical conditions at the [facility] on 11/21/2020 This note was created and [...] on arrival, tachycardic. History of Present Illness: HPI [place] Squires is a 45 y.o. [...] Negative Final Ketones UA Negative Final Specific Dufur, Urine 1.016 Final Blood UA Negative Final [...] BACTERIAL CULTURE, BLOOD COVID-19 TESTING COVID-19 TEST [facility] LAB PCR HOLD BLUE TOP Hold Hold [...] this plan. Clinical Impression Final diagnoses: Sepsis ([facility]) Disposition Disposition decisions were made weighing risks [...] Some of this note was transcribed with Endpoint [employer] dictating software. While it was proofread, it [...] Goals Goal: Care Plan Documentation Flowsheets (Taken 11/22/20200) Area of Focus: Thermoregulation Goal This Shift: [...] [facility] Surgical Oncology - [address] [address] Maeve Morales, DO 111 [facility], [facility], Level [address] [place] [address] [phone] (work) documented as of this encounter Procedures [...] ACID STAT 11/22/2020 2:42 EDT ZZCOVID-19 TEST [facility] LAB PCR Today 11/21/2020 22:46 EDT COVID-19 [...] EDT) % Neutrophils 34.6 % 11/22/2020 16:27 [facility] % Banded Neutrophils 14.0 % 11/22/2020 16:27 [facility] % Lymphocytes 29.0 % 11/22/2020 16:27 [facility] % Monocytes 11.2 % 11/22/2020 16:27 [facility] % Basophils 2.8 % 11/22/2020 16:27 [facility] % Metamyelocytes 2.8 % 11/23/19 16:27 [facility] % Myelocytes 0.9 % 11/22/2020 16:27 [facility] % Promyelocytes 1.9 % 16:27 [facility] % Blasts 2.8(H) <=0.0 % 11/22/2020 16:27 [facility] Dohle Bodies Present 11/22/2020 16:27 [facility] Toxic Granulation Present 021 16:27 [facility] Absolute Neutrophils 1.95(L) 2.20 - 8.85 K/cmm 11/22/2020 16:27 [facility] Absolute Bands 0.79 K/cmm 11/22/2020 16:27 [facility] Absolute Lymphocytes 1.63 1.09 - 3.30 K/cmm 11/22/2020 16:27 [facility] Absolute Monocytes 0.63 0.10 - 0.80 K/cmm 11/22/2020 16:27 [facility] ABS Basophils 0.16(H) 0.01 - 0.11 K/cmm 11/22/2020 16:27 [facility] Absolute Metamyelocytes 0.16 K/cmm 11/22/2020 16:27 [facility] Absolute Myelocytes 0.05 K/cmm 11/22/2020 16:27 [facility] Absolute Promyelocytes 0.11 K/cmm 11/22/2020 16:27 [facility] Absolute Blasts 0.16(H) <=0.00 K/cmm 11/22/2020 16:27 [facility] Smudge Cells Present 11/22/2020 16:27 [facility] Blood VENOUS BLOOD / Unknown Venipuncture / Unknown 11/22/2020 6:11 EDT 11/22/2020 6:27 EDT us Chris Fernandes MD HEMATOLOGY & PF4 ORDER CHAO Final Result [facility] [address] [place] [address] * (ABNORMAL) LACTIC ACID (11/22/2020 6:11 EDT) Pathologist [facility] Lactic Acid 2.4(HH) <=2.0 mmol/L 11/22/2020 6:43 [facility] Blood VENOUS BLOOD / Unknown Venipuncture / Unknown 11/22/2020 6:11 EDT 11/22/2020 6:26 EDT us Kenneth Thomas MD MPH CHEMISTRY & BLOOD GAS ORDER CHAO Final Result [facility] [address] [place] [address] * (ABNORMAL) COMPLETE BLOOD COUNT AND DIFFERENTIAL (11/22/2020 6:11 EDT) [facility] WBC 5.63 4.00 - 12.40 K/cmm 11/22/2020 6:40 [facility] RBC 2.91(L) 3.86 - 5.04 M/cmm 11/22/2020 6:40 [facility] Hemoglobin 8.9(L) 11.6 - 15.2 gm/dL 11/22/2020 6:40 [facility] HCT 26.1(L) 34.9 - 44.4 % 11/22/2020 6:40 [facility] MCV 90 81 - 98 fl 11/22/2020 6:40 [facility] MCH 30.6 26.7 - 33.3 pg 11/22/2020 6:40 [facility] MCHC 34.1 32.1 - 35.9 gm/dL 11/22/2020 6:40 [facility] RDW-CV 16.8(H) <14.7 % 11/22/2020 6:40 [facility] RDW-SD 53.7(H) <50.4 fl 11/22/2020 6:40 [facility] PLT 108(L) 141 - 377 K/cmm 11/22/2020 6:40 [facility] MPV 10.5 9.5 - 12.7 fl 11/22/2020 6:40 EDT [facility] Nucleated Red Blood Cells 1 /100 WBC 11/22/2020 6:40 EDT [facility] Type of Differential: Manual 11/22/2020 6:40 EDT [facility] Blood VENOUS BLOOD / Unknown Venipuncture / Unknown 11/22/2020 6:11 EDT 11/22/2020 6:27 EDT us Chris Fernandes MD PACKAGES & DNA PROBE O RDERABLES Final Result Performing Organization Address [facility] Co de Phone Number [facility] [address] [place] [address] * (ABNORMAL) CREATININE (11/22/2020 6:11 EDT) Creatinine 0.32(L) 0.52 - 1.04 mg/dL 11/22/2020 6:40 EDT [facility] eGFR 136 >60 mL/min/1.7 3m2 11/22/2020 6:40 EDT [facility] Comment:eGFR calculated mata asif CKD-EPI equation for non- Americans. Multiply eGFR by 1.16 for patients. Blood VENOUS BLOOD / Unknown Venipuncture / Unknown 11/22/2020 6:11 EDT 11/22/2020 6:26 EDT us Chris Fernandes MD CHEMISTRY & BLOOD GAS ORDERABLES Final Result [facility] [address] [place] [address] * (ABNORMAL) BUN (11/22/2020 6:11 EDT) BUN 5(L) 10 - 26 mg/dL 11/22/2020 6:40 EDT [facility] Blood VENOUS BLOOD / Unknown Venipuncture / Unknown 11/22/2020 6:11 EDT 11/22/2020 6:26 EDT us Chris Fernandes MD CHEMISTRY & BLOOD GAS ORDERABLES Final Result [facility] [address] [place] [address] * ELECTROLYTES (11/22/2020 6:11 EDT) Sodium 138 136 - 145 mEq/L 11/22/2020 6:40 EDT [facility] Potassium 3.5 3.5 - 5.0 mEq/L 11/22/2020 6:40 EDT [facility] Chloride 104 96 - 110 mEq/L 11/22/2020 6:40 EDT [facility] CO2 Total 26 22 - 32 mEq/L 11/22/2020 6:40 EDT [facility] Blood VENOUS BLOOD / Unknown Venipuncture / Unknown 11/22/2020 6:11 EDT 11/22/2020 6:26 EDT us Chris Fernandes MD CHEMISTRY & BLOOD GAS ORDERABLES Final Result Performing Organization Address City/[facility]/ZIP Co de Phone Number [facility] [address] [place] [address] * BILIRUBIN, TOTAL (11/22/2020 6:11 EDT) Bilirubin, Total <0.5 <1.4 mg/dL 11/22/2020 6:40 EDT [facility] Blood VENOUS BLOOD / Unknown Venipuncture / Unknown 11/22/2020 6:11 EDT 11/22/2020 6:26 EDT us Chris Fernandes MD CHEMISTRY & BLOOD GAS ORDERABLES Final Result [facility] [address] [place] [address] * (ABNORMAL) ALKALINE PHOSPHATASE (11/22/2020 6:11 EDT) Alkaline Phosphatase 131(H) 38 - 126 U/L 11/22/2020 6:40 EDT [facility] Blood VENOUS BLOOD / Unknown Venipuncture / Unknown 11/22/2020 6:11 EDT 11/22/2020 6:26 EDT us Chris Fernandes MD CHEMISTRY & BLOOD GAS ORDERABLES Final Result Performing Organization Address City/[facility]/ZIP Co de Phone Number [facility] [address] [place] [address] * AST (11/22/2020 6:11 EDT) AST 34 15 - 46 U/L 11/22/2020 6:40 EDT [facility] Blood VENOUS BLOOD / Unknown Venipuncture / Unknown 11/22/2020 6:11 EDT 11/22/2020 6:26 EDT Chris Fernandes MD CHEMISTRY & BLOOD GAS ORDERABLES Final Result Performing Organization Address City/[facility]/ZIP Co de Phone Number [facility] [address] [place] [address] * (ABNORMAL) ALT (11/22/2020 6:11 EDT) ALT 57(H) <35 U/L 11/22/2020 6:40 EDT [facility] Blood VENOUS BLOOD / Unknown Venipuncture / Unknown 11/22/2020 6:11 EDT 11/22/2020 6:26 EDT Chris Fernandes MD CHEMISTRY & BLOOD GAS ORDERABLES Final Result Performing Organization Address City/[facility] Co de Phone Number [facility] [address] [place] [address] * (ABNORMAL) HEMOGLOBIN A1C (11/22/2020 6:11 EDT) Hemoglobin A1c 8.1(H) <5.7 % 11/25/2020 15:26 EDT [facility] Comment: New methodology in use [...] Est Avg Glucose 186 mg/dL 15:26 EDT [facility] Comment:The eAG represents t he A1c result expressed as average glucose in mg/dL. Blood VENOUS BLOOD / Unknown Venipuncture / Unknown 11/22/2020 6:11 EDT 11/22/2020 6:27 EDT Chris Fernandes MD CHEMISTRY & BLOOD GAS ORDERABLES Final Result Performing Organization Address City/[facility] Co de Phone Number [facility] [address] [place] [address] * (ABNORMAL) LACTIC ACID (11/22/2020 2:42 EDT) Lactic Acid 3.0(HH) <=2.0 mmol/L 11/22/2020 3:21 EDT [facility] Blood VENOUS BLOOD / Unknown Venipuncture / Unknown 11/22/2020 2:42 EDT 11/22/2020 2:51 EDT Chris Fernandes MD CHEMISTRY & BLOOD GAS ORDERABLES Final Result Performing Organization Address City/[facility]/ZIP Co de Phone Number [facility] [address] [place] [address] * COVID-19 TEST [facility] PCR (11/21/2020 22:46 EDT) Swab BOTH ANTERIOR NARES / Unknown Swab / Unknown 11/21/2020 22:46 EDT 11/21/2020 22:51 EDT Chance Thien CAVAZOS MICROBIOLOGY - GENERAL ORDERA BLES Final Result Performing Organization Address [facility]/ZIP Co de Phone Number [facility] [address] [place] [address] * COVID-19 TESTING (11/21/2020 22:46 EDT) COVID-19 rt-PCR Result Negative Negative 11/22/2020 2:14 EDT [facility] Comment: This test has [...] history, and epidemiological information. Performed on the Blue Roosterher Fusion instrument Performing [employer] [facility] 11/22/2020 2:14 EDT [facility] Swab BOTH ANTERIOR NARES / Unknown Swab / Unknown 11/21/2020 22:46 EDT 11/21/2020 22:51 EDT Chance Thien CAVAZOS MICROBIOLOGY - GENERAL ORDERA BLES Final Result Performing Organization Address [facility] Co de Phone Number [facility] [address] [place] [address] * (ABNORMAL) URINE CHEMICAL (DIP) & SEDIMENT (MICRO) WITH REFLEX TO CULTURE (11/21/2020 21:24 [facility]) Color UA Yellow Colorless, Yellow 11/21/2020 21:35 [facility] Clarity UA Clear Clear 11/21/2020 21:35 [facility] Glucose UA 1+(A) Negative 11/21/2020 21:35 [facility] Bilirubin UA Negative Negative 11/21/2020 21:35 [facility] Ketones UA Negative Negative 11/21/2020 21:35 [facility] Specific [place], Urine 1.016 1.001 - 1.035 11/21/2020 21:35 [facility] Blood UA Negative Negative 11/21/2020 21:35 [facility] Urobilinogen UA Normal Normal mg/dL 021 21:35 [facility] Nitrite UA Negative Negative 11/21/2020 21:35 [facility] Leukocyte Esterase UA Negative Negative 11/21/2020 21:35 [facility] Protein UA Negative Negative 11/21/2020 21:35 [facility] pH, UA 8.0 4.6 - 8.0 11/21/2020 21:35 [facility] Urine RBC Count, Auto 0 - 2 0 - 2 Cells/HPF 11/21/2020 21:35 [facility] Urine WBC Count, Auto 0 - 3 0 - 3 Cells/HPF 11/21/2020 21:35 [facility] Urine Squamous Count, Auto Few(A) None Seen Cells/HPF 11/21/2020 21:35 [facility] Urine Hyaline Cast Count, Auto <=10 <=10 Casts/LPF 11/21/2020 21:35 [facility] Urine Bacteria Count, Auto None Seen None Seen Bacteria/HPF 11/21/2020 21:35 [facility] Urine URINE SPECIMEN COLLECTION, CLEAN CATCH / Unknown Urine Collect / Unknown 11/21/2020 21:24 EDT 11/21/2020 21:28 EDT Narrative [facility] - 11/21/2020 21:35 EDT NOTE: Reflex to Urine Culture test is not indicated based on Urine Sediment Analysis results. Urine Sediment Analysis results are unreliable on urines that are unrefrigerated for >2 hrs or refrigerated >8 hrs. us Chance Thien CAVAZOS URINALYSIS ORDERABLES Final R esult Performing Organization Address [facility] Co de Phone Number [facility] [address] [place] [address] * BACTERIAL CULTURE, BLOOD (11/21/2020 21:24 EDT) Organism ID No Growth at 5 days 11/26/2020 21:46 EDT [facility] Blood VENOUS BLOOD / Unknown Blood Culture / Unknown 11/21/2020 21:24 EDT 11/21/2020 21:43 EDT us Chance Thien CAVAZOS MICROBIOLOGY - GENERAL ORDERA BLES Final Result Performing Organization Address [facility] de Phone Number [facility] [address] [place] [address] * XR CHEST PORTABLE 1 VIEW (11/21/2020 [...] above interpretation andagree with the findings. us Chance Thien CAVAZOS [facility] ORDERA BLES Final Result * HOLD [facility] (11/21/2020 20:55 EDT) Hold Hold 11/21/2020 22:16 EDT [facility] Blood VENOUS BLOOD / Unknown Venipuncture / Unknown 11/21/2020 20:55 EDT 11/21/2020 21:01 EDT us Hitesh Bashir MD LAB INFO SERVICE AND SUPPORT & PHONE RESULT Final Result Performing Organization Address [facility]/ZIP Co de Phone Number [facility] [address] [place] [address] * BLOOD BANK HOLD (11/21/2020 20:53 EDT) Hold BB Spec will exp at 23:59, 3 days from collect date 11/21/2020 21:34 EDT [facility] Blood VENOUS BLOOD / Unknown Venipuncture / Unknown 11/21/2020 20:53 EDT 11/21/2020 21:33 EDT us Sandro Marquez MD BLOOD BANK TESTS Final Result Performing Organization Address [facility] de Phone Number [facility] [address] [place] [address] * (ABNORMAL) DIFFERENTIAL, AUTOMATED MANUAL (11/21/2020 20:52 EDT) % Neutrophils 32.7 % 11/21/2020 22:35 [facility] % Banded Neutrophils 15.0 % 11/21/2020 22:35 [facility] % Lymphocytes 15.9 % 11/21/2020 22:35 [facility] % Atypical Lymphocytes 2.7 % 11/21/2020 22:35 [facility] % Monocytes 23.9 % 11/21/2020 22:35 [facility] % Metamyelocytes 7.1 % 11/22/19 22:35 [facility] % Myelocytes 0.9 % 11/21/2020 22:35 [facility] % Promyelocytes 1.8 % 22:35 [facility] Dohle Bodies Present 11/21/2020 22:35 [facility] Toxic Granulation Present 021 22:35 [facility] Absolute Neutrophils 1.52(L) 2.20 - 8.85 K/cmm 11/21/2020 22:35 [facility] Absolute Bands 0.70 K/cmm 11/21/2020 22:35 [facility] Absolute Lymphocytes 0.74(L) 1.09 - 3.30 K/cmm 11/21/2020 22:35 [facility] Absolute Atypical Lymphocytes 0.13 K/cmm 11/21/2020 22:35 [facility] Absolute Monocytes 1.11(H) 0.10 - 0.80 K/cmm 11/21/2020 22:35 [facility] Absolute Metamyelocytes 0.33 K/cmm 11/21/2020 22:35 [facility] Absolute Myelocytes 0.04 K/cmm 11/21/2020 22:35 [facility] Absolute Promyelocytes 0.08 K/cmm 11/21/2020 22:35 [facility] Blood VENOUS BLOOD / Unknown Venipuncture / Unknown 11/21/2020 20:52 EDT 11/21/2020 21:01 EDT us Chance Thien CAVAZOS HEMATOLOGY & PF4 ORDERABLES F inal Result Performing Organization Address City/[facility]/ZIP Co de Phone Number [facility] [address] [place] [address] * HOLD BLUE TOP (11/21/2020 20:52 EDT) Hold Hold 11/21/2020 22:31 EDT [facility] Blood VENOUS BLOOD / Unknown Venipuncture / Unknown 11/21/2020 20:52 EDT 11/21/2020 21:28 EDT us Chance Thien CAVAZOS LAB INFO SERVICE AND SUPPORT & PHONE RESULT Final Result Performing Organization Address City/[facility]/ZIP Co de Phone Number [facility] [address] [place] [address] * BACTERIAL CULTURE, BLOOD (11/21/2020 20:52 EDT) Organism ID No Growth at 5 days 11/26/2020 21:16 EDT [facility] Blood VENOUS BLOOD / Unknown Blood Culture / Unknown 11/21/2020 20:52 EDT 11/21/2020 21:02 EDT us Chance Thien CAVAZOS MICROBIOLOGY - GENERAL ORDERA BLES Final Result [facility] [address] [place] [address] * (ABNORMAL) LACTIC ACID WITH REFLEX - USE FOR INITIAL SEPSIS EVALUATION (11/21/2020 20:52 EDT) Lactic Acid 3.0(HH) <=2.0 mmol/L 11/21/2020 21:18 EDT [facility] Blood VENOUS BLOOD / Unknown Venipuncture / Unknown 11/21/2020 20:52 EDT 11/21/2020 21:01 EDT us Chance Thien CAVAZOS CHEMISTRY & BLOOD GAS ORDERAB LES Final Result Performing Organization Address City/[facility]/ZIP Co de Phone Number [facility] [address] [place] [address] * (ABNORMAL) GLUCOSE, SERUM (11/21/2020 20:52 EDT) Glucose 161(H) 70 - 100 mg/dL 11/21/2020 21:15 EDT [facility] Blood VENOUS BLOOD / Unknown Venipuncture / Unknown 11/21/2020 20:52 EDT 11/21/2020 21:01 EDT us Chance Thien CAVAZOS CHEMISTRY & BLOOD GAS ORDERAB LES Final Result Performing Organization Address City/[facility]/ZIP Co de Phone Number [facility] [address] [place] [address] * (ABNORMAL) CREATININE (11/21/2020 20:52 EDT) Creatinine 0.36(L) 0.52 - 1.04 mg/dL 11/21/2020 21:15 EDT [facility] eGFR 131 >60 mL/min/1.7 3m2 11/21/2020 21:15 EDT [facility] Comment:eGFR calculated mata asif CKD-EPI equation for non- Americans. Multiply eGFR by 1.16 for patients. Blood VENOUS BLOOD / Unknown Venipuncture / Unknown 11/21/2020 20:52 EDT 11/21/2020 21:01 EDT Chance Thien CAVAZOS CHEMISTRY & BLOOD GAS ORDERAB LES Final Result Performing Organization Address [facility] Co de Phone Number [facility] [address] [place] [address] * (ABNORMAL) BUN (11/21/2020 20:52 EDT) BUN 5(L) 10 - 26 mg/dL 11/21/2020 21:15 EDT [facility] Blood VENOUS BLOOD / Unknown Venipuncture / Unknown 11/21/2020 20:52 EDT 11/21/2020 21:01 EDT Sandro Marquez MD CHEMISTRY & BLOOD GAS ORDERAB LES Final Result Performing Organization Address City/[facility]/ZIP Co de Phone Number [facility] [address] [place] [address] * (ABNORMAL) ELECTROLYTES (11/21/2020 20:52 EDT) Sodium 136 136 - 145 mEq/L 11/21/2020 21:15 EDT [facility] Potassium 3.2(L) 3.5 - 5.0 mEq/L 11/21/2020 21:15 [facility] Chloride 100 96 - 110 mEq/L 11/21/2020 21:15 T [facility] CO2 Total 26 22 - 32 mEq/L 11/21/2020 21:15 EDT [facility] Blood VENOUS BLOOD / Unknown Venipuncture / Unknown 11/21/2020 20:52 EDT 11/21/2020 21:01 EDT [facility] Thien CAVAZOS CHEMISTRY & BLOOD GAS ORDERAB LES Final Result [facility] [address] [place] [address] * (ABNORMAL) COMPLETE BLOOD COUNT AND DIFFERENTIAL (11/21/2020 20:52 EDT) WBC 4.65 4.00 - 12.40 K/cmm 11/21/2020 22:03 [facility] RBC 3.25(L) 3.86 - 5.04 M/cmm 11/21/2020 22:03 [facility] Hemoglobin 10.0(L) 11.6 - 15.2 gm/dL 11/21/2020 22:03 [facility] HCT 28.6(L) 34.9 - 44.4 % 11/21/2020 22:03 [facility] MCV 88 81 - 98 fl 11/21/2020 22:03 [facility] MCH 30.8 26.7 - 33.3 pg 11/21/2020 22:03 [facility] MCHC 35.0 32.1 - 35.9 gm/dL 11/21/2020 22:03 [facility] RDW-CV 16.4(H) <14.7 % 11/21/2020 22:03 [facility] RDW-SD 51.6(H) <50.4 fl 11/21/2020 22:03 [facility] PLT 138(L) 141 - 377 K/cmm 11/21/2020 22:03 [facility] MPV 10.7 9.5 - 12.7 fl 11/21/2020 22:03 [facility] Nucleated Red Blood Cells 2 /100 WBC 11/21/2020 22:03 EDT [facility] Type of Differential: Manual 11/21/2020 22:03 EDT [facility] Blood VENOUS BLOOD / Unknown Venipuncture / Unknown 11/21/2020 20:52 EDT 11/21/2020 21:01 EDT us Chance Thien CAVAZOS PACKAGES & DNA PROBE ORDERABL ES Final Result [facility] [address] [place] [address] documented in this encounter Visit Diagnoses Diagnosis Fever and chills- Primary Fever, unspecified Sepsis (HCC-CMS) Fever and chills Fever, unspecified Malignant neoplasm of right breast in female, estrogen receptor negative, unspecified site of breast (HCC-CMS) Sepsis without acute organ dysfunction, due to unspecified organism ([facility]) documented in this encounter Admitting Diagnoses Diagnosis [...] mL, intravenous, NOW X1, 1 dose, On 11/22/20 at 0415 Given 11/22/2020 4:01 EDT 1,000 [...] on Tue11/22/20 at 0900, Until Discontinued, Routine Given 11/23/2020 [...] 17 g, oral, DAILY PRN, Starting on Tue11/22/20 at 1643, Until Tue11/23/20 at 1340, Constipation, Routine potassium chloride (KLOR-CON) [...] 1 dose, On Tue11/21/20 at 2100, STAT 2102 (Given - Provider: Kenia Contreras RN) cefepime [...] mL, intravenous, NOW X1, 1 dose, On Sat 21 at 0415 0401 (Given - Provider: Treva Stokes RN) enoxaparin (LOVENOX) injection 40 mg 40 mg, subcutaneous, DAILY, First dose on Tue11/22/20 at 0800, Until Discontinued, Routine 0858 (Given - Provider: Maria Ines Salvador RN) 0920 (Given - Provider: Maria Ines Salvador RN) escitalopram oxalate (LEXAPRO) tablet 20 mg 20 mg, oral, DAILY, First dose on 11/22/20 at 0900, Until Discontinued, Routine 0858 (Given - Provider: Maria Ines Salvador RN) 0919 (Given - Provider: Maria Ines Salvador RN) loratadine (CLARITIN) tablet 10 mg 10 mg, oral, DAILY, First dose on 11/22/20 at 0900, Until Discontinued, Routine 0858 (Given - Provider: Maria Ines Salvador RN) 0919 (Given - Provider: Maria Ines Salvador RN) pantoprazole (PROTONIX) tablet 40 mg 40 mg, oral, DAILY, First dose on 11/22/20 at 0900, Until Discontinued 0858 (Given - [...] of unknown source, ID Consult: No, STAT 6949 (Given - Provider: Kenia Contreras RN) varenicline [...] Salvador RN)1755 (Given - Provider: Maria Ines Salvador, RADHA) 1021 (Given - Provider: Maria Ines Salvador RN) lidocaine (PF) 10 mg/mL (1 %) injection 2 mg 2 mg, intradermal, PRN, 4 doses, Starting on Tue11/21/20 at 2344, Until 11/23/20 at 1340, peripheral [...] 3 mg 1 11/22/2020 polyethylene glycol 3350 (TX RALAX) packet 17 g 1 11/22/2020 vancomycin [...] First Orde red Date MISCELLANEOUS DISCHARGE INSTRUCTIONS 11/13 documented in this encounter Care Teams Blood Bank Calendar Control Clerk Relationship Specialty Start Date End Date Batsheva Lira FNP [address] [phone] PCP - General 02/19/20 07/21/22 documented as of this encounter
--- OUTSIDE RECORDS SUMMARY | 2024-05-04 01:31 | XMS_ITS | Encounter Summary ---
Author Organization [facility] Address [address] [place] [address] Care Team Providers Care Jury Consultant Name Role Phone Batsheva Lira JOHN Primary Care Provider [phone] Reason for Visit * Reason Comments Follow-up Infusion Encounter Details Date Type Department Care Team (Late st Contact Info) Description 11/27/2020 9:20 EDT Office Visit [facility] Hematology & Oncology - [address] [address] Liat Honeycutt, PACalinC 111 [facility], Level 2 [place] [address] Malignant neoplasm of upper-inner quadrant [...] Reading Time Taken Comments Blood Pressure 130/78 11/27/2020910 EDT Pulse 108 11/27/2020925 EDT Temperature 35.8 ??C (96.4 ??F) 11/27/2020910 EDT Respiratory Rate 18 11/27/2020910 EDT Oxygen Saturation 99% 11/27/2020910 EDT Inhaled Oxygen Concentration - - Weight 85.3 kg (188 lb 1.6 oz) 11/27/2020910 E DT Height 167.1 cm (5' 5.79) 11/27/2020910 EDT Body Mass Index 30.56 11/27/2020910 EDT documented in this encounter Functional Status [...] Infusion HISTORY OF PRESENT ILLNESS: 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 Lives in [facility]. Two adult children and one [...] Gatherings with Friends and Family: ??? Attends Anabaptist Services: ??? Active Member of Clubs or [...] on 12/24/2020. Given the possibility of residualdisease, Will will be considering whether she might keep her port in, in view of possible IV adjuvant therapy. 4. Postop visit in this department on 01/06/2021, with Dr. Conde. Follow-up sooner than scheduled visit with any acute concerns or questions. I was directly supervised by Dr Queenie Cnode, who was in the suite and immediately available for the entire time the above documented service was provided. Liat Honeycutt PA-C 11/27/2020 9:56 documented in this encounter Plan of Treatment Upcoming Encounters Date Type Department Care Team (Late st Contact Info) Description 02/28/2025 13:00 EDT Office Visit [facility] Surgical Oncology - [facility] [address] [place] [address] Maeve Morales, DO 111 [facility], [address] [place] [address] documented as of this encounter Visit Diagnoses [...] 021 documented in this encounter Care Teams Jury Consultant Relationship Specialty Start Date End Date Batsheva Lira FNP [facility] [address] [phone] PCP - General 02/19/20 07/21/22 documented as of this encounter
--- OUTSIDE RECORDS SUMMARY | 2024-05-04 01:31 | XMS_ITS | Encounter Summary ---
Author Organization [facility] Address [address] [place] [address] Care Team Providers Care Service Person Name Role Phone Batsheva Lira JOHN Primary Care Provider Reason for Visit * Reason Onset Date Comments Appointment Related 12/03/2020 Encounter Details Date Type Department Care Team (Late st Contact Info) Description 12/03/2020 Telephone [facility] Rehabilitation Therapy [address] [address] Therapy, Outpatient, Appointment Related Social [...] Telephone Encounter - Sheela Long - 12/03/2020 1519 EDT [facility] RE[facility]ATION THERAPY - [address] [address] Telephone Intake Information for Scheduling NEW Patients for Therapy Script/referral: In [facility] Referral date: 11.25.20 Referring Provider: MAEVE MALHOTRA,DO Diagnosis: MLE Television Operator needed? No Primary Insurance: [place] Medicaid standard plan- Extension process must be followed for additional visits beyond yearly allowable Secondary Insurance: None If Medicaid (age 21+): Have you been seen for therapy since May first of this year? Carmencita Long 12/03/2020 documented in this encounter Plan of Treatment Upcoming Encounters Date Type Department Care Team (Late st Contact Info) Description 02/28/2025 13:00 EDT Office Visit [facility] Surgical Oncology - [address] [phone] Maeve Malhotra, [address], [address] [place] [phone] documented as of this encounter Visit Diagnoses Not on filedocumented in this encounter Care Teams Service Person Relationship Specialty Start Date End Date Batsheva Lira FNP [address] [phone] PCP - General 02/19/20 07/21/22 documented as of this encounter
--- OUTSIDE RECORDS SUMMARY | 2024-05-04 01:31 | XMS_ITS | Encounter Summary ---
Author Organization [facility] Address [address] [place] [address] Care Team Providers Care Supply Teacher Name Role Phone Batsheva Lira JOHN Primary Care Provider [phone] Reason for Visit * Reason Comments Infusion Encounter Details Date Type Department Care Team (Latest Contact Info) Description 10/16/2020 12:22 EDT - 10/16/2020 23:59 EDT Hospital Encounter [facility] Cancer Center Hematology & Oncology - Main [place] [address] [place], [place] [id number] Malignant neoplasm of upper-inner quadrant of left [...] needed for pain. 1 Tube 1 03/26/20 varenicline tartrate (CHANTIX ORAL) Take by mouth daily. 11/28/19 21 documented as of this encounter Discharge Disposition Disposition Code Departure Means Destination Home or Self Care documented in this encounter Progress Notes * Gabby Mack RN - 10/16/2020 1230 EDT Out-patient Chemotherapy [...] and immediately available in the office suite. aGbby Mack RN documented in this encounter Miscellaneous Notes * Addendum Note - Nelly Mendoza - 10/16/2020 1230 EDTEncounter addended by: Nelly Mendoza on: 11/13/2020 12:33 Actions taken: Charge Capture section accepted documented in this encounter Plan of Treatment Upcoming Encounters Date Type Department Care Team (Late st Contact Info) Description 02/28/2025 13:[address] [facility] Surgical Oncology - [address] [address] Maeve Morales, [address] [place] [address], [address] [place] [phone] documented as of this encounter Procedures Procedure [...] 5.77 4.00 - 12.40 K/cmm 10/16/2020 13:12 [facility] RBC 4.42 3.86 - 5.04 M/cmm 10/16/2020 13:12 [facility] Hemoglobin 12.9 11.6 - 15.2 gm/dL 10/16/2020 13:12 [facility] HCT 37.4 34.9 - 44.4 % 10/16/2020 13:12 [facility] MCV 85 81 - 98 fl 10/16/2020 13:12 [facility] MCH 29.2 26.7 - 33.3 pg 10/16/2020 13:12 [facility] MCHC 34.5 32.1 - 35.9 gm/dL 10/16/2020 13:12 [facility] RDW-CV 14.8(H) <14.7 % 10/16/2020 13:12 [facility] RDW-SD 45.2 <50.4 fl 10/16/2020 13:12 [facility] PLT 159 141 - 377 K/cmm 10/16/2020 13:12 [facility] MPV 9.7 9.5 - 12.7 fl 10/16/2020 13:12 [facility] % Neutrophils 58.4 % 10/16/2020 13:12 [facility] Absolute Neutrophils 3.37 2.20 - 8.85 K/cmm 10/16/2020 13:12 [facility] Type of Differential: Auto 10/16/2020 13:12 [facility] Blood VENOUS BLOOD / Unknown Venipuncture / Unknown 10/16/2020 12:59 EDT 10/16/2020 13:03 EDT us Queenie Conde MD PACKAGES & DNA PROBE ORDERABLES Final Result [facility] [address] [place] [address] * (ABNORMAL) COMPREHENSIVE METABOLIC PANEL (ONCOLOGY USE ONLY-INC MG) (10/16/2020 12:59 EDT) Sodium 136 136 - 145 mEq/L 10/16/2020 13:31 [facility] Potassium 4.0 3.5 - 5.0 mEq/L 10/16/2020 13:31 [facility] Chloride 101 96 - 110 mEq/L 10/16/2020 13:31 [facility] CO2 Total 24 22 - 32 mEq/L 10/16/2020 13:31 [facility] Glucose 230(H) 70 - 100 mg/dL 10/16/2020 13:31 [facility] BUN 11 10 - 26 mg/dL 10/16/2020 13:31 [facility] Creatinine 0.36(L) 0.52 - 1.04 mg/dL 10/16/2020 13:31 [facility] eGFR 131 >60 mL/min/1.7 3m2 10/16/2020 13:31 [facility] Comment:eGFR calculated mata asfi CKD-EPI equation for non- Americans. Multiply eGFR by 1.16 for patients. Total Protein 7.0 6.3 - 8.2 g/dL 10/16/2020 13:31 [facility] Albumin 4.2 3.4 - 4.9 g/dL 10/16/2020 13:31 [facility] Alkaline Phosphatase 129(H) 38 - 126 U/L 10/16/2020 13:31 [facility] AST 81(H) 15 - 46 U/L 10/16/2020 13:31 [facility] ALT 126(H) <35 U/L 10/16/2020 13:31 [facility] Bilirubin, Total <0.5 <1.4 mg/dL 10/17/19 13:31 [facility] Calcium 9.2 8.5 - 10.5 mg/dL 10/16/2020 13:31 EDT [facility] Calculated Calcium 9.0 8.5 - 10.5 mg/dL 10/16/2020 13:31 EDT [facility] Magnesium 1.7 1.7 - 2.8 mg/dL 10/16/2020 13:31 EDT [facility] Blood VENOUS BLOOD / Unknown Venipuncture / Unknown 10/16/2020 12:59 EDT 10/16/2020 13:03 EDT us Queenie Conde MD CHEMISTRY & BLOOD GAS ORDERABLES Final Result [facility] [address] [place] [address] documented in this encounter Visit Diagnoses Diagnosis [...] 1 dose, On Klaudia 10/16/20 at 1500, RoutineIndications:Maligna nt 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, estrogen receptor negative (HCC-CMS) New Bag 10/16/2020 15:25 EDT 1,188 mg dexAMETHasone (DECADRON) tablet 12 mg 12 mg, oral, NOW X1, 1 dose, On Klaudia 10/16/20 at 1345, RoutineIndications:Maligna nt 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, estrogen receptor negative (HCC-CMS) Given 10/16/2020 13:55 EDT 12 mg DOXOrubicin (ADRIAMYCIN) chemo injection 118.8 mg 118.8 mg (60 mg/m2 ? 1.98 m2 Treatment Plan BSA from Recorded weight), intravenous, NOW X1, 1 dose, On Klaudia 10/16/20 at 1445, RoutineIndications:Maligna nt 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, estrogen receptor negative (HCC-CMS) Given 10/16/2020 15:12 EDT 118.8 mg fosaprepitant (EMEND) 150 mg in sodium chloride (NS) 0.9 % 150 mL infusion 150 mg, intravenous, Administer over 30 Minutes, NOW X1, 1 dose, On Klaudia 10/16/20 at 1345, RoutineIndications:Maligna nt 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, estrogen receptor negative (HCC-CMS) New Bag 10/16/2020 14:01 EDT 150 mg palonosetron (ALOXI) injection 0.25 mg 0.25 mg, intravenous, NOW X1, 1 dose, On Klaudia 10/16/20 at 1345, RoutineIndications:Maligna nt 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, estrogen receptor negative (HCC-CMS) Given 10/16/2020 13:58 EDT 0.25 mg pegfilgrastim (NEULASTA ONPRO) wearable subcutaneous injection 6 mg 6 mg, subcutaneous, NOW X1, 1 dose, On Klaudia 10/16/20 at 1600, RoutineIndications:Maligna nt 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, estrogen receptor negative (HCC-CMS) Given 10/16/2020 16:05 EDT 6 mg L eft Arm sodium chloride 0.9 % (NS) infusion at 100 mL/hr, 250 mL, intravenous, CONTINUOUS, Starting on Klaudia 10/16/20 at 1345, Until Tue10/17/20 at 1354, RoutineIndications:Maligna nt 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, estrogen receptor negative (HCC-CMS) New Bag 10/16/2020 13:55 EDT 250 mL [...] 10/16/2020 documented in this encounter Care Teams Supply Teacher Relationship Specialty Start Date End Date Batsheva Lira FNP [address] [phone] PCP - General 02/19/20 07/21/22 documented as of this encounter
--- OUTSIDE RECORDS SUMMARY | 2024-05-04 01:31 | XMS_ITS | Encounter Summary ---
Author Organization [facility] Address [address] [place] [address] Care Team Providers Care Sole Cementer Name Role Phone Batsheva Lira JOHN Primary Care Provider [phone] Reason for Visit * Reason Onset Date Comments Surgery Scheduling 10/28/2020 Encounter Details Date Type Department Care Team (Late st Contact Info) Description 10/28/2020 Telephone [facility] Plastic, Reconstructive & Cosmetic Surgery - [address], [address] [place] [address] Juanito Carcamo MD [address] [place] [address] Surgery Scheduling Social History Tobacco [...] Description 02/28/2025 13:00 EDT Office Visit [facility] Surgical Oncology - [address] [address] Maeve Morales, DO 111 [facility], [address] [place] [phone] documented as of this encounter Visit Diagnoses Not on filedocumented in this encounter Care Teams Sole Cementer Relationship Specialty Start Date End Date Batsheva Lira FNP [address] [phone] PCP - General 02/19/20 07/21/22 documented as of this encounter
--- OUTSIDE RECORDS SUMMARY | 2024-05-04 01:31 | XMS_ITS | Encounter Summary ---
Author Organization [facility] Address [address] [place] [address] Care Team Providers Care Radius Grinder Name Role Phone Batsheva Lira JOHN Primary Care Provider [phone] Reason for Visit * Reason Comments Follow-up Encounter Details Date Type Department Care Team (Late st Contact Info) Description 10/07/2020 15:00 EDT Office Visit [facility] Center Hematology & Oncology - Main [place] [address] [place] [address] [place] [address] [place] [phone] Malignant neoplasm of upper-inner quadrant of [...] Filled Start Date End Date omeprazole (PRILOSEC) 20 mg capsule Take 1 Cap by mouth 2 times daily. 60 Cap 1 10/07/2020 10/08/2020 documented in this encounter Progress Notes * Queenie Conde MD - 10/07/2020 1500 EDT REASON FOR OFFICE VISIT Austin is a 45 y.o. being see today for a sore throat and consideration of chemotherapy next week. 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 She is taking [...] has no additional new??constitutional, cardiovascular, pulmonary, GI, ,GRAIN ROASTER, musculoskeletal,psychiatric, neurologic, endocrine, or heme symptoms. ?? [...] his 90s. ??Her paternal relatives are of [place] descent. Objective: BP (!) 152/76 Pulse 100 [...] [facility] - [address] [phone] Maeve Morales, [address] [place] [address], [address] [place] [address] documented as of this encounter [...] 021 documented in this encounter Care Teams Radius Grinder Relationship Specialty Start Date End Date Batsheva Lira FNP [address] [phone] PCP - General 02/19/20 07/21/22 documented as of this encounter
--- OUTSIDE RECORDS SUMMARY | 2024-05-04 01:31 | XMS_ITS | Encounter Summary ---
Author Organization [facility] Address [address] [place] [address] Care Team Providers Care Military Source Operations Specialist Name Role Phone Batsheva Lira JOHN Primary Care Provider [phone] Reason for Visit * Reason Onset Date Comments Pharmacy 10/08/2020 Prilose Encounter Details Date Type Department Care Team (Late st Contact Info) Description 10/08/2020 Telephone [facility] Cancer Center Hematology & Oncology - [facility] [address] [place], [place] [address] [place] [address] [place] [phone] Pharmacy (Prilosec) Social History Tobacco Use Types Packs/Day Years [...] End Date omeprazole (PRILOSEC) 40 mg capsule Take 1 Cap by mouth at bedtime. 30 Cap 2 10/08/2020 12/30/2020 documented in this encounter Miscellaneous Notes * Telephone Encounter - Dominique John - 10/08/2020 1045 EDT [facility] pharmacy calling regarding prilosec prescription. He states [...] [facility] Surgical Oncology - [address] [id number] Maeve Morales, DO [address] [facility], Level 2 [place] [address] documented as of this encounter Visit Diagnoses Not on filedocumented in this encounter Discontinued Medications Medication Sig Discontinue Reason Start Date End Da te omeprazole (PRILOSEC) 20 mg capsule Take 1 Cap by mouth 2 times daily. 10/07/2020 10/08/2020 documented as of this encounter Care Teams Military Source Operations Specialist Relationship Specialty Start Date End Date Batsheva Lira FNP [address] [address] PCP - General 02/19/20 07/21/22 documented as of this encounter
--- OUTSIDE RECORDS SUMMARY | 2024-05-04 01:32 | XMS_ITS | Encounter Summary ---
Author Organization [facility] Address [address] [place] [address] Care Team Providers Care Fixed Capital Clerk Name Role Phone Batsheva Lira JOHN Primary Care Provider [phone] Reason for Visit * Reason Comments Chemotherapy And Provider Visit Encounter Details Date Type Department Care Team (Late st Contact Info) Description 09/25/2020 9:20 EDT Office Visit [facility] Cancer Center Hematology & Oncology - [address] [id number] Liat Honeycutt, PACalinC 111 [facility], Level 2 [place] [address] Malignant neoplasm of upper-inner quadrant [...] Reading Time Taken Comments Blood Pressure 158/82 09/25/2020825 EDT Pulse 94 09/25/2020825 EDT Temperature 35.7 ??C (96.2 ??F) 09/25/2020825 EDT Respiratory Rate 16 09/25/2020825 EDT Oxygen Saturation 100% 09/25/2020825 EDT Inhaled Oxygen Concentration - - Weight 87.1 kg (192 lb 1.6 oz) 09/25/2020825 E DT Height 167.1 cm (5' 5.79) 09/25/2020825 EDT Body Mass Index 31.21 09/25/2020825 EDT documented in this encounter Functional Status [...] 07/15/2020 9:13 EST documented in this encounter Progress Notes * Liat Honeycutt PA-C - 09/25/2020 0920 EDT Austin Squires is a 45 y.o.yo female presenting in clinic today for assessment prior to ongoing chemotherapy, given for pre-operatively for triple negative breast cancer Chief Complaint Patient presents with ??? 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?She then underwent imaging and a biopsy on 07/09/20 of a 2.1 cm mass revealed a nuclear grade 3 ER negative NH negative for B2 negative ductal carcinoma.??Staging evaluation [...] 2 days after her infusions, managed with yrzh-qch-xhkbmri analgesics as well as tramadol at bedtime [...] of breast in female, estrogen receptor negative ([facility]) 07/15/2020 Priority: Medium Past Surgical History: Procedure [...] on phone: None Gets together: None Attends mormonism service: None Active member of club or organization: None Attends meetings of clubs or organizations: None Relationship status: None ??? Intimate partner violence Fear of current or ex partner: None Emotionally abused: None Physically abused: None Forced sexual activity: None Other Topics Concern ??? None Social History Narrative ??? Lives in [facility]. Moved here from [place]. 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 Medications Prior to Today's Visit Medication Sig [...] [facility] Surgical Oncology - [address] [address] Maeve Morales, 111 [facility], Level 2 [place] [address] documented as of this encounter Visit Diagnoses Diagnosis Malignant 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, estrogen receptor negative (HCC-CMS)- Primary documented in this encounter Orders Appointment Requests Count Last Ordered Date Fi rst Ordered Date ON[facility]N CLINIC APPOINTMENT REQUEST 1 021 documented in this encounter Care Teams Fixed Capital Clerk Relationship Specialty Start Date End Date Batsheva Lira FNP [address] [place] [phone] PCP - General 02/19/20 07/21/22 documented as of this encounter
--- OUTSIDE RECORDS SUMMARY | 2024-05-04 01:32 | XMS_ITS | Encounter Summary ---
Author Organization [facility] Address [address] [place] [address] Care Team Providers Care Tire Spotter Name Role Phone Batsheva Lira JOHN Primary Care Provider [phone] Reason for Visit * Reason Onset Date Comments Appointment Related 09/01/2020 Encounter Details Date Type Department Care Team (Late st Contact Info) Description 09/01/2020 Telephone [facility] Cancer Center Hematology & Oncology - [facility] [address] [place] [address] [place] [address] [phone] Appointment Related Social History Tobacco [...] to patient regarding telemedicine appointment on 09/02/20. SHOAM PASTOR MA documented in this encounter Plan of Treatment Upcoming Encounters Date Type Department Care Team (Late st Contact Info) Description 02/28/2025 13:00 EDT Office Visit [facility] Surgical Oncology - [address] [address] Maeve Morales, 111 [facility], Level 2 [place] [phone] documented as of this encounter Visit Diagnoses Not on filedocumented in this encounter Care Teams Tire Spotter Relationship Specialty Start Date End Date Batsheva Lira FNP [address] [address] PCP - General 02/19/20 07/21/22 documented as of this encounter
--- OUTSIDE RECORDS SUMMARY | 2024-05-04 01:32 | XMS_ITS | Encounter Summary ---
Author Organization [facility] Address [address] [place] [address] Care Team Providers Care Forge Shop Machine Repairer Name Role Phone Batsheva Lira JOHN Primary Care Provider [phone] Encounter Details Date Type Department Care Team [...] [facility] Surgical Oncology - [address] 5299[address] Maeve Morales, 111 [facility], [address] [place] [phone] documented as of this encounter Visit Diagnoses Not on filedocumented in this encounter Care Teams Forge Shop Machine Repairer Relationship Specialty Start Date End Date Batsheva Lira FNP [address] [place] [phone] PCP - General 02/19/20 07/21/22 documented as of this encounter
--- OUTSIDE RECORDS SUMMARY | 2024-05-04 01:32 | XMS_ITS | Encounter Summary ---
Author Organization [facility] Address [address] [place] [address] Care Team Providers Care Foundation Coordinator Name Role Phone Batsheva Lira JOHN Primary Care Provider [phone] Reason for Visit * Reason Onset Date Comments Social Work 08/29/2020 financial Encounter Details Date Type Department Care Team (Late st Contact Info) Description 08/29/2020 Telephone [facility] Cancer Center Hematology & Oncology - [address] [phone] Veronique Dye Social Work (financial ) Social [...] I assisted her with applying for the [employer] monserrat. Application completed and just waiting to connect with pt on 09/04 to have her sign the signature page to submit. Plan- finish application on 09/04 documented in this encounter Plan of Treatment Upcoming Encounters Date Type Department Care Team (Late st Contact Info) Description 02/28/2025 13:00 EDT Office Visit [facility] Surgical Oncology - [address] [address] Maeve Morales, DO [address] [place] [address], [address] 2 [place] [phone] documented as of this encounter Visit Diagnoses Not on filedocumented in this encounter Care Teams Foundation Coordinator Relationship Specialty Start Date End Date Batsheva Lira FNP [address] [phone] PCP - General 02/19/20 07/21/22 documented as of this encounter
--- OUTSIDE RECORDS SUMMARY | 2024-05-04 01:32 | XMS_ITS | Encounter Summary ---
Author Organization [facility] Address [address] [place] [address] Care Team Providers Care Bottle Blower Name Role Phone Batsheva Lira JOHN Primary Care Provider [phone] Pam Germain MD Unavailable [phone] Janay Duran ROUTE DELIVERER Primary Care Provider Inez Corado DO Primary Care Provid er Encounter Details Date Type Department Care Team (Late st Contact Info) Description 10/01/2020 Lab Requisition [facility] Pathology & Laboratory Medicine - [facility] [address] [place] [address] Judd Dye APRN Acute pharyngitis, unspecified; Cough [...] [facility] - [address] [phone] Maeve Morales DO 111 [facility] 2 [place] [phone] documented as of this encounter Procedures Procedure Name Priority Date/Time Associated Diagnosis Comments GROUP A STREP CULTURE Routine 10/01/2020 17:15 EDT Acute pharyngitis, unspecified Cough documented in this encounter Results * GROUP A STREP CULTURE (10/01/2020 17:15 EDT) Organism ID No Group A Beta Hemolytic Streptococcus isolated 10/03/2020 8:07 EDT [facility] Swab ENTIRE THROAT / Unknown 10/01/2020 17:15 EDT 10/01/2020 20:59 EDT Judd Dye APRN MICROBIOLOGY - GENERAL OR DERABLES Final Result [facility] [address] [place] [address] documented in this encounter Visit Diagnoses Diagnosis Acute pharyngitis, unspecified Cough documented in this encounter Care Teams Bottle Blower Relationship Specialty Start Date End Date Batsheva Lira FNP [address] [phone] PCP - General 02/19/20 07/21/22 Janay Duran APRN [address] [place] [phone] PCP - General Family Medicine - Primary Care 07/22/22 02/12/24 Inez Corado DO [address] [place] [phone] PCP - General Family Medicine - Primary Care 02/13/24 Pam Germain MD [address] [place] [phone] Medical Oncology 03/22/22 documented as of this encounter
--- OUTSIDE RECORDS SUMMARY | 2024-05-04 01:32 | XMS_ITS | Encounter Summary ---
Author Organization [facility] Address [address] [place] [address] Care Team Providers Care Narcotics And Vice Detective Name Role Phone Batsheva Lira JOHN Primary Care Provider [phone] Reason for Visit * Reason Onset Date Comments Social Work 07/24/2020 financial Encounter Details Date Type Department Care Team (Late st Contact Info) Description 07/24/2020 Telephone [facility] Cancer Center Hematology & Oncology - [address] [phone] Veronique Dye Social Work (financial ) Social [...] completed and submitted an application to the [employer] and requested the full $1000 towards her rent. Pt shared that she got a bill from [facility] and questioning why medicaid isn't covering it. PN showed the bill to MARIJA Quiros and she responded: The effective date was wrong in our system we will rebill this claim PN updated pt that. Plan- await decision from [employer] PN mailed pt a couple of visa gift cards to be used towards groceries. documented in this encounter Plan of Treatment Upcoming Encounters Date Type Department Care Team (Late st Contact Info) Description 02/28/2025 13:00 EDT Office Visit [facility] Surgical Oncology - [address] [phone] Maeve Morales, 111 [facility], Level [address] [place] [phone] documented as of this encounter Visit Diagnoses Not on filedocumented in this encounter Care Teams Narcotics And Vice Detective Relationship Specialty Start Date End Date Batsheva Lira FNP [address] [phone] PCP - General 02/19/20 07/21/22 documented as of this encounter
--- OUTSIDE RECORDS SUMMARY | 2024-05-04 01:32 | XMS_ITS | Encounter Summary ---
Author Organization [facility] Address [address] [place] [address] Care Team Providers Care Banana Room Cutter Name Role Phone Batsheva Lira JOHN Primary Care Provider [phone] Reason for Visit * Reason Onset Date Comments Appointment Related 09/01/2020 Encounter Details Date Type Department Care Team (Late st Contact Info) Description 09/01/2020 Telephone [facility] Cancer Center Hematology & Oncology - [facility] [address] [place] [address] [place] [address] [phone] Appointment Related Social History Tobacco [...] [facility] Surgical Oncology - [address] [address] Maeve Morales, [address], [address] [place] [phone] documented as of this encounter Visit Diagnoses Not on filedocumented in this encounter Care Teams Banana Room Cutter Relationship Specialty Start Date End Date Batsheva Lira FNP [address] [phone] PCP - General 02/19/20 07/21/22 documented as of this encounter
--- OUTSIDE RECORDS SUMMARY | 2024-05-04 01:32 | XMS_ITS | Encounter Summary ---
Author Organization [facility] Address [address] [place] [address] Care Team Providers Care Allergist/Pediatric Pulmonologist Name Role Phone Batsheva Lira JOHN Primary Care Provider [phone] Encounter Details Date Type Department Care Team (Late st Contact Info) Description 09/02/2020 Orders Only [facility] Cancer Center Hematology & Oncology - [facility] [address] [place] [address] [place] [address] [place] [phone] Social History Tobacco Use Types Packs/Day [...] Office Visit [facility] Surgical Oncology - [address] [address] Maeve Morales, DO 111 [facility], Level [address] [place] [phone] documented as of this encounter Visit Diagnoses Not on filedocumented in this encounter Care Teams Allergist/Pediatric Pulmonologist Relationship Specialty Start Date End Date Batsheva Lira FNP [address] [phone] PCP - General 02/19/20 07/21/22 documented as of this encounter
--- OUTSIDE RECORDS SUMMARY | 2024-05-04 01:32 | XMS_ITS | Encounter Summary ---
Author Organization [facility] Address [address] [place] [address] Care Team Providers Care Squeezer Operator Name Role Phone Batsheva Lira JOHN Primary Care Provider [phone] Encounter Details Date Type Department Care Team (Late st Contact Info) Description 09/04/2020 Documentation Visit [facility] Cancer Center Hematology & Oncology - [facility] [address] [place] [address] Veronique Dye Social History Tobacco Use Types [...] documented in this encounter Progress Notes * Veronique Dye - 09/04/2020 1152 EDT PN met with pt in the Infusion Gentry and obtained her signature for the JAF [...] [facility] Surgical Oncology - [address] [address] Maeve Morales, DO 111 [facility], [facility], Level [address] [place] [phone] documented as of this encounter Visit Diagnoses Not on filedocumented in this encounter Care Teams Squeezer Operator Relationship Specialty Start Date End Date Batsheva Lira FNP [address] [phone] PCP - General 02/19/20 07/21/22 documented as of this encounter
--- OUTSIDE RECORDS SUMMARY | 2024-05-04 01:32 | XMS_ITS | Encounter Summary ---
Author Organization [facility] Address [address] [place] [address] Care Team Providers Care Payroll And Benefits Specialist Name Role Phone Batsheva Lira JOHN Primary Care Provider [phone] Reason for Visit * Reason Comments Follow-up Encounter Details Date Type Department Care Team (Late st Contact Info) Description 09/23/2020 15:00 EDT Office Visit [facility] Surgical Oncology - [address] [address] Maeve Morales, DO 111 [facility], [facility] 2 [place] [phone] Malignant neoplasm of left breast in female, [...] quadrant of the left breast that her STUDENT FINANCE SPECIALIST doctor identified in June 2019. Biopsy revealed [...] Visit [facility] Surgical Oncology - [address] [address] Maeve Morales DO 111 [facility], [facility], Level 2 [place] [phone] documented as of this encounter Procedures Procedure Name Priority Date/Time Associated Diagnosis Comments ORDERS - SCANNED 10/01/2020 12:32 EDT documented in this encounter Results * ORDERS - SCANNED (10/01/2020 12:32 EDT) 10/01/2020 12:3 2 EDT us Scan 2 Associate Designer ADMISSION ORDERABLES Final Result documented in this encounter Visit Diagnoses Diagnosis Malignant neoplasm of left breast in female, estrogen receptor negative, unspecified site of breast ([facility])- Primary documented in this encounter Historical Medications * This list may reflect changes made after this encounter. varenicline tartrate (CHANTIX ORAL) Take by mouth daily. 11/27/2020 added in this encounter Care Teams Payroll And Benefits Specialist Relationship Specialty Start Date End Date Batsheva Lira FNP [address] [phone] PCP - General 02/19/20 07/21/22 documented as of this encounter
--- OUTSIDE RECORDS SUMMARY | 2024-05-04 01:32 | XMS_ITS | Encounter Summary ---
Author Organization [facility] Address [address] [place] [address] Care Team Providers Care Cycle Touring Guide Name Role Phone Batsheva Lira JOHN Primary Care Provider [phone] Reason for Visit * Reason Onset Date Comments Social Work 08/12/2020 wig Encounter Details Date Type Department Care Team (Late st Contact Info) Description 08/12/2020 Telephone [facility] Cancer Center Hematology & Oncology - [address] [address] Veronique Dye Social Work (wig) Social History [...] is interested in purchasing a wig through [facility]. PN provided assistance. Once she has picked a style, PN will complete a HAP application and wig request. Addendum: Pt picked out a wig. PN filled out a HAP Intake form and sent a wig request to [facility]. PN will connect with pt tomorrow to bring her a wig stand and nylon caps. Plan- Available as needed. documented in this encounter Plan of Treatment Upcoming Encounters Date Type Department Care Team (Late st Contact Info) Description 02/28/2025 13:00 EDT Office Visit [facility] Surgical Oncology - [address] [address] Maeve Morales, 111 [facility], Level 2 [place] [phone] documented as of this encounter Visit Diagnoses Not on filedocumented in this encounter Care Teams Cycle Touring Guide Relationship Specialty Start Date End Date Batsheva Lira FNP [address] [phone] PCP - General 02/19/20 07/21/22 documented as of this encounter
--- OUTSIDE RECORDS SUMMARY | 2024-05-04 01:32 | XMS_ITS | Encounter Summary ---
Author Organization [facility] Address [address] [place] [address] Care Team Providers Care Gunner Mate Name Role Phone Batsheva Lira JOHN Primary Care Provider [phone] Encounter Details Date Type Department Care Team (Late st Contact Info) Description 07/22/2020 Documentation Visit [facility] Cancer Center Hematology & Oncology - [address] [address] Edinson Lorenzana, SHAGGY Social History Tobacco Use [...] this encounter Progress Notes * Edinson Lorenzana, GIORGIO - 07/22/2020 0938 EST SW Introduction Visit D1C1 Introduction I checked in w/ Austin today as she started tx and introduced myself. Pt has already connected with ON [place]. ON is helping the pt apply for [employer] and [facility]. Pt is on Medicaid until Jun, she [...] w/ a $25 gas card from the [employer] given the financial hardship. I provided education on our psychosocial team. Pt has already been in touch w/ [facility] and they appliedher for the two [employer] grants. Pt is receiving [employer] but she has not applied for [employer]. I gave her an application today andasked her to let me know if she needs support. Goals Reach Up Plan Pt agreed to let me know if she needs my support. Edinson ALVARES [facility] request form was completed. Funds used: $25 Remaining: $225 documented in this encounter Plan of Treatment Upcoming Encounters Date Type Department Care Team (Late st Contact Info) Description 02/28/2025 13:00 EDT Office Visit [facility] Surgical Oncology - [address] [address]68[address] Maeve Morales, DO [address] [place] [address], Level [address] [place] [phone] documented as of this encounter Visit Diagnoses Not on filedocumented in this encounter Care Teams Gunner Mate Relationship Specialty Start Date End Date Batsheva Lira FNP [address] [phone] PCP - General 02/19/20 07/21/22 documented as of this encounter
--- OUTSIDE RECORDS SUMMARY | 2024-05-04 01:32 | XMS_ITS | Encounter Summary ---
Author Organization [facility] Address [address] [place] [address] Care Team Providers Care Utility Supervisor Boat And Plant Name Role Phone Batsheva Lira JOHN Primary Care Provider [phone] Reason for Visit * Reason Onset Date Comments Social Work 10/01/2020 financial Encounter Details Date Type Department Care Team (Late st Contact Info) Description 10/01/2020 Telephone [facility] Cancer Center Hematology & Oncology - [facility] [address] [place], [place] [address] Veronique Dye Social Work (financial) Social History [...] EROS approved pt for the following award: [employer]: $640.5 (Insurance). PN notified pt of the award and that EROS will send a check directly to the vendor. Plan- Available as needed. documented in this encounter Plan of Treatment Upcoming Encounters Date Type Department Care Team (Late st Contact Info) Description 02/28/2025 13:00 EDT Office Visit [facility] Surgical Oncology - [address] [address] Maeve Morales, DO 111 [facility], [address] 2 [place] [phone] documented as of this encounter Visit Diagnoses Not on filedocumented in this encounter Care Teams Utility Supervisor Boat And Plant Relationship Specialty Start Date End Date Batsheva Lira FNP [address] [phone] PCP - General 02/19/20 07/21/22 documented as of this encounter
--- OUTSIDE RECORDS SUMMARY | 2024-05-04 01:32 | XMS_ITS | Encounter Summary ---
Author Organization [facility] Address [address] [place] [address] Care Team Providers Care First Line Production Supervisor Name Role Phone Batsheva Lira JOHN Primary Care Provider [phone] Reason for Visit * Reason Comments Telemedicine Video Visit Encounter Details Date Type Department Care Team (Late st Contact Info) Description 09/02/2020 16:00 EDT Telemedicine [facility] Hematology & Oncology - Main [place] [address] [place] [address] [place] [address] [place] [phone] Malignant neoplasm of upper-inner quadrant of [...] the COVID-19 pandemic and recommendations from the [facility] to distance patients and providers for their safety. Austin is at home, I am in my office and she consents to a visit of this type. 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 Staging [...] no additional new constitutional, cardiovascular, pulmonary, GI, ,MANNEQUIN COLORING ARTIST, musculoskeletal, psychiatric, neurologic, endocrine, or heme symptoms. 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 ??Her paternal relatives are of [place] descent. DIAGNOSTIC DATA Lab Results Component Value [...] good for her to speak with Dr. Marivn again. ?? PLAN: 1. Austin will receive [...] 02/28/2025 13:00 EDT Office Visit [facility] Surgical Oncology - [address] [address] Maeve Morales DO [address] [facility], Level 2 [place] [address] documented as of this encounter Visit Diagnoses Diagnosis Malignant neoplasm of upper-inner quadrant of left breast in female, estrogen receptor negative (HCC-CMS)- Primary documented in this encounter Orders Appointment Requests Count Last Ordered Date Fi rst Ordered Date ONCBCN CLINIC APPOINTMENT REQUEST 1 021 documented in this encounter Care Teams First Line Production Supervisor Relationship Specialty Start Date End Date Batsheva Lira FNP [address] [place] [phone] PCP - General 02/19/20 07/21/22 documented as of this encounter
--- OUTSIDE RECORDS SUMMARY | 2024-05-04 01:32 | XMS_ITS | Encounter Summary ---
Author Organization [facility] Address [address] [place] [address] Care Team Providers Care Mail Processing Machine Operator Name Role Phone Batsheva Lira JOHN Primary Care Provider [phone] Reason for Visit * Reason Onset Date Comments Social Work 07/23/2020 financial Encounter Details Date Type Department Care Team (Late st Contact Info) Description 07/23/2020 Telephone [facility] Cancer Center Hematology & Oncology - [address] [id number] Veronique Dye Social Work (financial) Social History [...] EDT Office Visit [place] Surgical Oncology - [address] [address] Maeve Morales, DO 111 [facility], Level [address] [place] [phone] documented as of this encounter Visit Diagnoses Not on filedocumented in this encounter Care Teams Mail Processing Machine Operator Relationship Specialty Start Date End Date Batsheva Lira FNP [address] [phone] PCP - General 02/19/20 07/21/22 documented as of this encounter
--- OUTSIDE RECORDS SUMMARY | 2024-05-04 01:32 | XMS_ITS | Encounter Summary ---
Author Organization [facility] Address [address] [place] [address] Care Team Providers Care Case Management Coordinator Name Role Phone Batsheva Lira JOHN Primary Care Provider [phone] Reason for Visit * Reason Comments Chemotherapy And Provider Visit Encounter Details Date Type Department Care Team (Latest Contact Info) Description 08/13/2020 8:00 EDT - 08/13/2020 23:59 EDT Hospital Encounter [facility] Cancer Center Hematology & Oncology - Main [place] [address] [place], [place] [address] Malignant neoplasm of upper-inner quadrant of left [...] 25 g 1 1 03/26/20 21 omeprazole magnesium (PRILOSEC ORAL) Take by mouth. 10/08/19 21 ondansetron (ZOFRAN-ODT) 8 mg disintegrating tablet [...] * Addendum Note - Bladimir Jenkins - 08/13/2020 0800 EDTEncounter addended by: Bladimir Jenkins on: 08/15/2020 10:53 Actions taken: Charge Capture section accepted documented in this encounter Plan of Treatment Upcoming Encounters Date Type Department Care Team (Late st Contact Info) Description 02/28/2025 13:00 EDT Office Visit [facility] Surgical Oncology - [address] [id number] Maeve Morales, DO [address] [place] [address], [facility], Level 2 [place] [address] documented as of this encounter [...] 13.23(H) 4.00 - 12.40 K/cmm 08/13/2020 8:42 [facility] RBC 5.24(H) 3.86 - 5.04 M/cmm 08/13/2020 8:42 [facility] Hemoglobin 15.3(H) 11.6 - 15.2 gm/dL 08/13/2020 8:42 [facility] HCT 45.6(H) 34.9 - 44.4 % 08/13/2020 8:42 [facility] MCV 87 81 - 98 fl 08/13/2020 8:42 [facility] MCH 29.2 26.7 - 33.3 pg 08/13/2020 8:42 [facility] MCHC 33.6 32.1 - 35.9 gm/dL 08/13/2020 8:42 [facility] RDW-CV 13.1 <14.7 % 08/13/2020 8:42 [facility] RDW-SD 41.1 <50.4 fl 08/13/2020 8:42 [facility] PLT 295 141 - 377 K/cmm 08/13/2020 8:42 [facility] MPV 10.0 9.5 - 12.7 fl 08/13/2020 8:42 [facility] % Neutrophils 72.9 % 08/13/2020 8:42 [facility] Absolute Neutrophils 9.64(H) 2.20 - 8.85 K/cmm 08/13/2020 8:42 EDT [facility] Type of Differential: Auto 08/13/2020 8:42 [facility] Blood VENOUS BLOOD / Unknown Venipuncture / Unknown 08/13/2020 8:16 EDT 08/13/2020 8:29 EDT us Queenie Conde MD PACKAGES & DNA PROBE ORDERABLES Final Result [facility] [address] [place] [address] * (ABNORMAL) COMPREHENSIVE METABOLIC PANEL (ONCOLOGY USE ONLY-INC MG) (08/13/2020 8:16 EDT) Sodium 138 136 - 145 mEq/L 08/13/2020 8:49 [facility] Potassium 4.4 3.5 - 5.0 mEq/L 08/13/2020 8:49 [facility] Chloride 103 96 - 110 mEq/L 08/13/2020 8:49 [facility] CO2 Total 24 22 - 32 mEq/L 08/13/2020 8:49 [facility] Glucose 171(H) 70 - 100 mg/dL 08/13/2020 8:49 [facility] BUN 12 10 - 26 mg/dL 08/13/2020 8:49 [facility] Creatinine 0.40(L) 0.52 - 1.04 mg/dL 08/13/2020 8:49 [facility] eGFR 127 >60 mL/min/1.7 3m2 08/13/2020 8:49 [facility] Comment:eGFR calculated mata asif CKD-EPI equation for non- Americans. Multiply eGFR by 1.16 for patients. Total Protein 7.4 6.3 - 8.2 g/dL 08/13/2020 8:49 [facility] Albumin 4.3 3.4 - 4.9 g/dL 08/13/2020 8:49 [facility] Alkaline Phosphatase 128(H) 38 - 126 U/L 08/13/2020 8:49 EDT [facility] AST 47(H) 15 - 46 U/L 08/13/2020 8:49 EDT [facility] ALT 86(H) <35 U/L 08/13/2020 8:49 T [facility] Bilirubin, Total <0.5 <1.4 mg/dL 08/14/19 8:49 EDT [facility] Calcium 9.4 8.5 - 10.5 mg/dL 08/13/2020 8:49 EDT [facility] Calculated Calcium 9.2 8.5 - 10.5 mg/dL 08/13/2020 8:49 EDT [facility] Magnesium 1.8 1.7 - 2.8 mg/dL 08/13/2020 8:49 EDT [facility] Blood VENOUS BLOOD / Unknown Venipuncture / Unknown 08/13/2020 8:16 EDT 08/13/2020 8:29 EDT us Queenie Conde MD CHEMISTRY & BLOOD GAS ORDERABLES Final Result [facility] [address] [place] [address] documented in this encounter Visit Diagnoses Diagnosis [...] On Tue08/13/20 at 1300, Administer over 30 MinutesIndications:Malignant neoplasm of upper-inner quadrant of left breast in female, estrogen receptor negative (HCC-CMS) New Bag 08/13/2020 14:33 EDT 900 mg dexAMETHasone (DECADRON) 12 mg in sodium chloride (NS) 0.9 % 50 mL IVPB 12 mg, intravenous, Administer over 30 Minutes, NOW X1, 1 dose, On Tue08/13/20 at 0915, RoutineIndications:Malignant neoplasm of upper-inner quadrant of left breast in female, estrogen receptor negative (HCC-CMS) New Bag 08/13/2020 9:20 EDT 12 mg diphenhydrAMINE (BENADRYL) 50 mg in sodium chloride (NS) 0.9 % 50 mL IVPB 50 mg, intravenous, Administer over 15 Minutes, NOW X1, 1 dose, On Tue08/13/20 at 0915, RoutineIndications:Malignant neoplasm of upper-inner quadrant of left breast in female, estrogen receptor negative (HCC-CMS) New Bag 08/13/2020 9:35 EDT 50 mg diphenhydrAMINE (BENADRYL) injection 50 mg 50 mg, intravenous, PRN, 1 dose, Starting on Tue08/13/20 at 1222, Until Tue08/13/20 at 1223, administer for rash, itching and/or hives associated with a mild to moderate infusion reaction OR after epinephrine IM for an anaphylactic reaction., RoutineIndications:Malignant neoplasm of upper-inner quadrant of left breast in female, estrogen receptor negative (HCC-CMS) Given 08/13/2020 12:23 EDT 25 mg famotidine (PEPCID) injection 20 mg 20 mg, intravenous, NOW X1, 1 dose, On Tue08/13/20 at 0915, RoutineIndications:Malignant neoplasm of upper-inner quadrant of left breast in female, estrogen receptor negative (HCC-CMS) Given 08/13/2020 9:18 EDT 20 mg fosaprepitant (EMEND) 150 mg in sodium chloride (NS) 0.9 % 150 mL infusion 150 mg, intravenous, Administer over 30 Minutes, NOW X1, 1 dose, On Tue08/13/20 at 0915, RoutineIndications:Malignant neoplasm of upper-inner quadrant of left breast in female, estrogen receptor negative (HCC-CMS) New Bag 08/13/2020 9:50 EDT 150 mg PACLitaxel (TAXOL) 347 mg in sodium chloride (NS) 0.9 % 500 mL chemo infusion 347 mg (rounded from 346.5 mg = 175 mg/m2 ? 1.98 m2 Treatment Plan BSA from Recorded weight), intravenous, NOW X1, 1 dose, On Tue08/13/20 at 1000, Administer over 3 HoursIndications:Malignant neoplasm of upper-inner quadrant of left breast in female, estrogen receptor negative (HCC-CMS) Restarted 08/13/2020 13:01 EDT New Bag 08/13/2020 10:26 EDT 347 mg palonosetron (ALOXI) injection 0.25 mg 0.25 mg, intravenous, NOW X1, 1 dose, On Tue08/13/20 at 0915, RoutineIndications:Malignant neoplasm of upper-inner quadrant of left breast in female, estrogen receptor negative (HCC-CMS) Given 08/13/2020 9:16 EDT 0.25 mg sodium chloride 0.9 % (NS) infusion at 100 mL/hr, 250 mL, intravenous, CONTINUOUS, Starting on Tue08/13/20 at 0915, Until [place] 08/14/20 at 0915, RoutineIndications:Malignant neoplasm of upper-inner quadrant of left breast in female, estrogen receptor negative (HCC-CMS) New Bag 08/13/2020 9:16 EDT 250 mL 100 mL/hr documented in this encounter Orders Medications Ordered That Juanito ht Not Have Been Administered Count Last Ordered Date First Ordered Date sodium chloride 0.9 % (flush) flush 20 mL 1 08/13/2020 Appointment Requests Count Last Ordered Date Fi rst Ordered Date ONCBCN INFUSION APPOINTMENT REQUEST 1 08/13 documented in this encounter Care Teams Case Management Coordinator Relationship Specialty Start Date End Date Batsheva Lira FNP [address] [phone] PCP - General 02/19/20 07/21/22 documented as of this encounter
--- OUTSIDE RECORDS SUMMARY | 2024-05-04 01:32 | XMS_ITS | Encounter Summary ---
Author Organization [facility] Address [address] [place] [address] Care Team Providers Care Phonograph Mechanic Name Role Phone Batsheva Lira JOHN Primary Care Provider [phone] Reason for Visit * Reason Comments Chemotherapy Encounter Details Date Type Department Care Team (Latest Contact Info) Description 09/04/2020 7:46 EDT - 09/04/2020 23:59 EDT Hospital Encounter [facility] Cancer Center Hematology & Oncology - Main [place] [address] [place], [place] [phone] Malignant neoplasm of upper-inner quadrant of left [...] 07/15/2020 9:13 EST documented in this encounter Discharge Instructions * Patient Instructions* [...] their hands well too. ??? Use hand relief pilot when you can't find soap and water. Stay extra clean. ??? [place] your teeth after meals and before you [...] magnesium (PRILOSEC ORAL) Take by mouth. 10/08/19 ondansetron (ZOFRAN-ODT) 8 mg disintegrating tablet Take [...] Info) Description 02/28/2025 13:00 EDT Office Visit [facility] Surgical Oncology - [address] [phone] Maeve Morales, 111 [facility], [facility], Level 2 [place] [address] documented as of this encounter [...] 7.75 4.00 - 12.40 K/cmm 09/04/2020 8:30 [facility] RBC 4.96 3.86 - 5.04 M/cmm 09/04/2020 8:30 [facility] Hemoglobin 14.1 11.6 - 15.2 gm/dL 09/04/2020 8:30 [facility] HCT 42.1 34.9 - 44.4 % 09/04/2020 8:30 [facility] MCV 85 81 - 98 fl 09/04/2020 8:30 [facility] MCH 28.4 26.7 - 33.3 pg 09/04/2020 8:30 [facility] MCHC 33.5 32.1 - 35.9 gm/dL 09/04/2020 8:30 [facility] RDW-CV 13.5 <14.7 % 09/04/2020 8:30 [facility] RDW-SD 41.6 <50.4 fl 09/04/2020 8:30 [facility] PLT 196 141 - 377 K/cmm 09/04/2020 8:30 [facility] MPV 9.9 9.5 - 12.7 fl 09/04/2020 8:30 [facility] % Neutrophils 62.9 % 09/04/2020 8:30 [facility] Absolute Neutrophils 4.88 2.20 - 8.85 K/cmm 09/04/2020 8:30 [facility] Type of Differential: Auto 09/04/2020 8:30 [facility] Blood VENOUS BLOOD / Unknown Venipuncture / Unknown 09/04/2020 7:49 EDT 09/04/2020 8:03 EDT us Queenie Conde MD PACKAGES & DNA PROBE ORDERABLES Final Result [facility] [address] [place] [address] * (ABNORMAL) COMPREHENSIVE METABOLIC PANEL (ONCOLOGY USE ONLY-INC MG) (09/04/2020 7:49 EDT) Sodium 139 136 - 145 mEq/L 09/04/2020 8:23 [facility] Potassium 4.0 3.5 - 5.0 mEq/L 09/04/2020 8:23 [facility] Chloride 104 96 - 110 mEq/L 09/04/2020 8:23 [facility] CO2 Total 23 22 - 32 mEq/L 09/04/2020 8:23 [facility] Glucose 165(H) 70 - 100 mg/dL 09/04/2020 8:23 [facility] BUN 12 10 - 26 mg/dL 09/04/2020 8:23 [facility] Creatinine 0.41(L) 0.52 - 1.04 mg/dL 09/04/2020 8:23 [facility] eGFR 126 >60 mL/min/1.7 3m2 09/04/2020 8:23 [facility] Comment:eGFR calculated mata asif CKD-EPI equation for non- Americans. Multiply eGFR by 1.16 for patients. Total Protein 7.2 6.3 - 8.2 g/dL 09/04/2020 8:23 [facility] Albumin 4.2 3.4 - 4.9 g/dL 09/04/2020 8:23 [facility] Alkaline Phosphatase 122 38 - 126 U/L 09/04/2020 8:23 [facility] AST 45 15 - 46 U/L 09/04/2020 8:23 EDT [facility] ALT 85(H) <35 U/L 09/04/2020 8:23 EDT [facility] Bilirubin, Total <0.5 <1.4 mg/dL 09/05/19 8:23 EDT [facility] Calcium 8.8 8.5 - 10.5 mg/dL 09/04/2020 8:23 EDT [facility] Calculated Calcium 8.6 8.5 - 10.5 mg/dL 09/04/2020 8:23 EDT [facility] Magnesium 1.8 1.7 - 2.8 mg/dL 09/04/2020 8:23 EDT [facility] Blood VENOUS BLOOD / Unknown Venipuncture / Unknown 09/04/2020 7:49 EDT 09/04/2020 8:03 EDT us Queenie Conde MD CHEMISTRY & BLOOD GAS ORDERABLES Final Result [facility] [address] [place] [address] documented in this encounter Visit Diagnoses Diagnosis [...] Klaudia 09/04/20 at 1245, Administer over 30 MinutesIndications:Malignant neoplasm of upper-inner quadrant of left breast in female, estrogen receptor negative (HCC-CMS) New Bag 09/04/2020 13:15 EDT 900 mg dexAMETHasone (DECADRON) 12 mg in sodium chloride (NS) 0.9 % 50 mL IVPB 12 mg, intravenous, Administer over 30 Minutes, NOW X1, 1 dose, On Klaudia 09/04/20 at 0900, RoutineIndications:Malignant neoplasm of upper-inner quadrant of left breast in female, estrogen receptor negative (HCC-CMS) New Bag 09/04/2020 9:05 EDT 12 mg diphenhydrAMINE (BENADRYL) capsule 50 mg 50 mg, oral, NOW X1, 1 dose, On Tue09/04/20 at 0900, RoutineIndications:Malignant neoplasm of upper-inner quadrant of left breast in female, estrogen receptor negative (HCC-CMS) Given 09/04/2020 8:51 EDT 50 mg famotidine (PEPCID) injection 20 mg 20 mg, intravenous, NOW X1, 1 dose, On Tue09/04/20 at 0900, RoutineIndications:Malignant neoplasm of upper-inner quadrant of left breast in female, estrogen receptor negative (HCC-CMS) Given 09/04/2020 9:03 EDT 20 mg fosaprepitant (EMEND) 150 mg in sodium chloride (NS) 0.9 % 150 mL infusion 150 mg, intravenous, Administer over 30 Minutes, NOW X1, 1 dose, On Tue09/04/20 at 0900, RoutineIndications:Malignant neoplasm of upper-inner quadrant of left breast in female, estrogen receptor negative (HCC-CMS) New Bag 09/04/2020 9:30 EDT 150 mg PACLitaxel (TAXOL) 347 mg in sodium chloride (NS) 0.9 % 500 mL chemo infusion 347 mg (rounded from 346.5 mg = 175 mg/m2 ? 1.98 m2 Treatment Plan BSA from Recorded weight), intravenous, NOW X1, 1 dose, On Tue09/04/20 at 0945, Administer over 3 HoursIndications:Malignant neoplasm of upper-inner quadrant of left breast in female, estrogen receptor negative (HCC-CMS) New Bag 09/04/2020 10:15 EDT 347 mg palonosetron (ALOXI) injection 0.25 mg 0.25 mg, intravenous, NOW X1, 1 dose, On Tue09/04/20 at 0900, RoutineIndications:Malignant neoplasm of upper-inner quadrant of left breast in female, estrogen receptor negative (HCC-CMS) Given 09/04/2020 8:56 EDT 0.25 mg sodium chloride 0.9 % (NS) infusion at 100 mL/hr, 250 mL, intravenous, CONTINUOUS, Starting on Tue09/04/20 at 0900, Until Tue09/05/20 at 0854, RoutineIndications:Malignant neoplasm of upper-inner quadrant of left breast in female, estrogen receptor negative (HCC-CMS) New Bag 09/04/2020 8:55 EDT 250 mL 75 mL/hr documented in this encounter Orders Medications Ordered That Juanito ht Not Have Been Administered Count Last Ordered Date First Ordered Date sodium chloride 0.9 % (flush) flush 20 mL 1 09/04/2020 Appointment Requests Count Last Ordered Date Fi rst Ordered Date ONCBCN INFUSION APPOINTMENT REQUEST 1 09/04 documented in this encounter Care Teams Phonograph Mechanic Relationship Specialty Start Date End Date Batsheva Lira FNP [address] [phone] PCP - General 02/19/20 07/21/22 documented as of this encounter
--- OUTSIDE RECORDS SUMMARY | 2024-05-04 01:32 | XMS_ITS | Encounter Summary ---
Author Organization [facility] Address [address] [place] [address] Care Team Providers Care Associate Drafter Name Role Phone Batsheva Lira JOHN Primary Care Provider [phone] Reason for Visit * Reason Comments New Patient Visit discuss oncoplastic breast reduction, left breast cancer * Consult (Routine) - Order Cancelled Specialty Diagnoses / Procedures Referred By Jen gonzáles Referred To Contact Plastic Surgery Diagnoses Malignant neoplasm of left breast in female, estrogen receptor negative, unspecified site of breast ([facility]) Maeve Morales DO Phone: tel: fax: [facility] Plastic, Reconstructive & Cosmetic Surgery [address] [address] Phone: tel: fax: Referral ID Status Reason Start Date Expiration Date Visits Requested Visits Authorized [id number] Order Cancelled Specialty Services Required 07/15/2020 1 1 Encounter Details Date Type Department Care Team (Late st Contact Info) Description 09/17/2020 10:45 EDT Office Visit [facility] Plastic, Reconstructive & Cosmetic Surgery - [address], [address] [address] Juanito Carcamo MD [address] [phone] Malignant neoplasm of upper-inner quadrant of left [...] of Dr. Morales to discuss breast reconstruction. Clinis a 45 y.o. female who has a [...] versus delayed reconstruction Implant based reconstruction Tissue commanding officer motorized squad to implant Direct to implant Pre or subpectoral reconstructions with allograft Autologous tissue reconstruction TRAM, JANNETTE, SGAP, IGAP, TUG) Combined tissue and implant reconstruction Latissimus dorsi (lifeboat) We discussed the general risks of these reconstructive surgical techniques including reviewing the more specific risks of the reconstructions we most commonly perform here being tissue commanding officer motorized squad to implant reconstruction, deep inferior epigastric ic designer standard cells flap (JANNETTE) reconstruction and pedicled lat issimus flap reconstruction. In terms of tissue commanding officer motorized squad implant based reconstruction the patient understands the technique to require at least 2 additional surgeries and serial fills of the tissue commanding officer motorized squad over approximately a six-month period. She understands [...] We discussed the significantly increased risks in commanding officer motorized squad/implant reconstructions for patients who receive postoperative radiation [...] the formation of a breast from her [place] tissue while preserving her abdominalmusculature and thus [...] castillo nstruction with areolar tattooing. The relevant [employer] consent forms were [...] Description 02/28/2025 13:00 EDT Office Visit [facility] Surgical Oncology - [address] [address] Maeve Morales, DO [address] [facility], [address] [place] [address] documented as of this encounter Visit Diagnoses Diagnosis Malignant neoplasm of upper-inner quadrant of left breast in female, estrogen receptor negative (H[facility])- Primary documented in this encounter Care Teams Associate Drafter Relationship Specialty Start Date End Date Batsheva Lira FNP [address] [phone] PCP - General 02/19/20 07/21/22 documented as of this encounter
--- OUTSIDE RECORDS SUMMARY | 2024-05-04 01:32 | XMS_ITS | Encounter Summary ---
Author Organization [facility] Address [address] [place] [address] Care Team Providers Care Black Mill Operator Name Role Phone Batsheva Lira JOHN Primary Care Provider [phone] Reason for Visit * Reason Comments Chemotherapy And Provider Visit Encounter Details Date Type Department Care Team (Late st Contact Info) Description 08/13/2020 8:30 EDT Office Visit [facility] Cancer Center Hematology & Oncology - [address] [address] Liat Honeycutt, PACalinC [address] [place] [address], Level 2 [place] [address] Malignant neoplasm of upper-inner quadrant [...] Reading Time Taken Comments Blood Pressure 126/84 08/13/2020819 EDT Pulse 104 08/13/2020819 EDT Temperature 35.7 ??C (96.3 ??F) 08/13/2020 08 EDT Respiratory Rate 16 08/13/2020819 EDT Oxygen Saturation 97% 08/13/2020819 EDT Inhaled Oxygen Concentration - - Weight [...] Refills Last Filled Start Date End Date lidocaine-prilocai ne (EMLA) cream Apply to port site and cover, 1 hr before planned port access 25 g 1 08/13/2020 1 traMADol (ULTRAM) 50 mg tablet Take 1 Tab by mouth every 6 hours as needed for Pain. Daily Max: 200 mg 20 Tab 08/13/2020 1 documented in this encounter Progress Notes * Liat Honeycutt PA-C - 08/13/202030 EDT Austin Squires is a 44 y.o.yo female presenting in clinic today for assessment prior to ongoing chemotherapy, given preoperatively for triple negative breast cancer Chief Complaint Patient presents with ??? 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 Staging evaluation [...] about 4 days, improving along the way. Ibnc-xri-nhsqssv analgesics did not give her much relief. [...] of breast in female, estrogen receptor negative ([facility]) 07/15/2020 Priority: Medium Past Surgical History: Procedure [...] file Gets together: Not on file Attends caodaism service: Not on file Active member of [...] file Social History Narrative ??? [facility]. Medications Prior to Today's Visit Medication Sig [...] [facility] Surgical Oncology - [address] [id number] Maeve Morales DO [address] [place] [address], [address] [place] [phone] documented as of this encounter Visit Diagnoses [...] may reflect changes made after this encounter. omeprazole magnesium (PRILOSEC ORAL) Take by mouth. 10/07/2020 added in this encounter Orders Appointment Requests Count Last Ordered Date Fi rst Ordered Date ONCBCN CLINIC APPOINTMENT REQUEST 2 021 08/13/2020 ONCBCN INFUSION APPOINTMENT REQUEST 1 09/25 documented in this encounter Care Teams Black Mill Operator Relationship Specialty Start Date End Date Batsheva Lira FNP [address] [phone] PCP - General 02/19/20 07/21/22 documented as of this encounter
--- OUTSIDE RECORDS SUMMARY | 2024-05-04 01:32 | XMS_ITS | Encounter Summary ---
Author Organization [facility] Address [address] [place] [address] Care Team Providers Care Electrician Supervisor Airplane Name Role Phone Batsheva Lira JOHN Primary Care Provider [phone] Reason for Visit * Reason Comments Chemotherapy And Provider Visit Encounter Details Date Type Department Care Team (Latest Contact Info) Description 09/25/2020 7:57 EDT - 09/25/2020 23:59 EDT Hospital Encounter [facility] Cancer Center Hematology & Oncology - Main [place] [address] [place], [place] [id number] Malignant neoplasm of upper-inner quadrant of left [...] in this encounter Progress Notes * Yulissa Mills, RN - 09/25/2020 0877 EDT Out-patient Chemotherapy Note Patient presents to [...] Description 02/28/2025 13:00 EDT Office Visit [facility] Surgical Oncology - [address] [id number] Maeve Morales, [address], [address] [place] [phone] documented as of this encounter Procedures Procedure [...] 4.00 - 12.40 K/cmm 09/25/2020 8:47 EDT [facility] RBC 4.83 3.86 - 5.04 M/cmm 09/25/2020 8:47 EDT [facility] Hemoglobin 14.1 11.6 - 15.2 gm/dL 09/25/2020 8:47 EDT [facility] HCT 40.5 34.9 - 44.4 % 09/25/2020 8:47 EDT [facility] MCV 84 81 - 98 fl 09/25/2020 8:47 EDT [facility] MCH 29.2 26.7 - 33.3 pg 09/25/2020 8:47 [facility] MCHC 34.8 32.1 - 35.9 gm/dL 09/25/2020 8:47 [facility] RDW-CV 14.4 <14.7 % 09/25/2020 8:47 T [facility] RDW-SD 43.4 <50.4 fl 09/25/2020 8:47 [facility] PLT 186 141 - 377 K/[facility] 09/25/2020 8:47 [facility] MPV 9.3(L) 9.5 - 12.7 fl 09/25/2020 8:47 [facility] % Neutrophils 53.8 % 09/25/2020 8:47 [facility] Absolute Neutrophils 2.86 2.20 - 8.85 K/cmm 09/25/2020 8:47 [facility] Type of Differential: Auto 09/25/2020 8:47 [facility] Blood VENOUS BLOOD / Unknown Venipuncture / Unknown 09/25/2020 8:08 EDT 09/25/2020 8:32 EDT us Queenie Conde MD PACKAGES & DNA PROBE ORDERABLES Final Result [facility] [address] [place] [address] * (ABNORMAL) COMPREHENSIVE METABOLIC PANEL (ONCOLOGY USE ONLY-INC MG) (09/25/2020 8:08 EDT) Sodium 139 136 - 145 mEq/L 09/25/2020 8:54 [facility] Potassium 3.9 3.5 - 5.0 mEq/L 09/25/2020 8:54 [facility] Chloride 102 96 - 110 mEq/L 09/25/2020 8:54 T [facility] CO2 Total 27 22 - 32 mEq/L 09/25/2020 8:54 [facility] Glucose 165(H) 70 - 100 mg/dL 09/25/2020 8:54 [facility] BUN 16 10 - 26 mg/dL 09/25/2020 8:54 [facility] Creatinine 0.40(L) 0.52 - 1.04 mg/dL 09/25/2020 8:54 [facility] eGFR 126 >60 mL/min/1.7 3m2 09/25/2020 8:54 [facility] Comment:eGFR calculated mata asif CKD-EPI equation for non- Americans. Multiply eGFR by 1.16 for patients. Total Protein 7.0 6.3 - 8.2 g/dL 09/25/2020 8:54 [facility] Albumin 4.2 3.4 - 4.9 g/dL 09/25/2020 8:54 [facility] Alkaline Phosphatase 140(H) 38 - 126 U/L 09/25/2020 8:54 [facility] AST 50(H) 15 - 46 U/L 09/25/2020 8:54 [facility] ALT 88(H) <35 U/L 09/25/2020 8:54 [facility] Bilirubin, Total <0.5 <1.4 mg/dL 09/26/19 8:54 [facility] Calcium 9.1 8.5 - 10.5 mg/dL 09/25/2020 8:54 [facility] Calculated Calcium 8.9 8.5 - 10.5 mg/dL 09/25/2020 8:54 [facility] Magnesium 1.7 1.7 - 2.8 mg/dL 09/25/2020 8:54 [facility] Blood VENOUS BLOOD / Unknown Venipuncture / Unknown 09/25/2020 8:08 EDT 09/25/2020 8:32 EDT Queenie Conde MD CHEMISTRY & BLOOD GAS ORDERABLES Final Result [facility] [address] [place] [address] documented in this encounter Visit Diagnoses Diagnosis [...] Klaudia 09/25/20 at 1315, Administer over 30 MinutesIndications:Malignant neoplasm of upper-inner quadrant of left breast in female, estrogen receptor negative (HCC-CMS) New Bag 09/25/2020 14:15 EDT 900 mg dexAMETHasone (DECADRON) 12 mg in sodium chloride (NS) 0.9 % 50 mL IVPB 12 mg, intravenous, Administer over 30 Minutes, NOW X1, 1 dose, On Klaudia 09/25/20 at 0930, RoutineIndications:Malignant neoplasm of upper-inner quadrant of left breast in female, estrogen receptor negative (HCC-CMS) New Bag 09/25/2020 10:03 EDT 12 mg diphenhydrAMINE (BENADRYL) capsule 50 mg 50 mg, oral, NOW X1, 1 dose, On Klaudia 09/25/20 at 0930, RoutineIndications:Malignant neoplasm of upper-inner quadrant of left breast in female, estrogen receptor negative (HCC-CMS) Given 09/25/2020 9:50 EDT 50 mg famotidine (PEPCID) injection 20 mg 20 mg, intravenous, NOW X1, 1 dose, On Klaudia 09/25/20 at 0930, RoutineIndications:Malignant neoplasm of upper-inner quadrant of left breast in female, estrogen receptor negative (HCC-CMS) Given 09/25/2020 9:55 EDT 20 mg fosaprepitant (EMEND) 150 mg in sodium chloride (NS) 0.9 % 150 mL infusion 150 mg, intravenous, Administer over 30 Minutes, NOW X1, 1 dose, On Klaudia 09/25/20 at 0930, RoutineIndications:Malignant neoplasm of upper-inner quadrant of left breast in female, estrogen receptor negative (HCC-CMS) New Bag 09/25/2020 10:25 EDT 150 mg PACLitaxel (TAXOL) 347 mg in sodium chloride (NS) 0.9 % 500 mL chemo infusion 347 mg (rounded from 346.5 mg = 175 mg/m2 ? 1.98 m2 Treatment Plan BSA from Recorded weight), intravenous, NOW X1, 1 dose, On Klaudia 09/25/20 at 1045, Administer over 3 HoursIndications:Malignant neoplasm of upper-inner quadrant of left breast in female, estrogen receptor negative (HCC-CMS) New Bag 09/25/2020 11:10 EDT 347 mg palonosetron (ALOXI) injection 0.25 mg 0.25 mg, intravenous, NOW X1, 1 dose, On Klaudia 09/25/20 at 0930, RoutineIndications:Malignant neoplasm of upper-inner quadrant of left breast in female, estrogen receptor negative (HCC-CMS) Given 09/25/2020 9:54 EDT 0.25 mg sodium chloride 0.9 % (NS) infusion at 100 mL/hr, 250 mL, intravenous, CONTINUOUS, Starting on Tue09/25/20 at 0930, Until Tue09/26/20 at 0949, RoutineIndications:Malignant neoplasm of upper-inner quadrant of left breast in female, estrogen receptor negative (HCC-CMS) New Bag 09/25/2020 9:50 EDT 250 mL 75 mL/hr documented in this encounter Orders Medications Ordered That Juanito ht Not Have Been Administered Count Last Ordered Date First Ordered Date sodium chloride 0.9 % (flush) flush 20 mL 1 09/25/2020 Appointment Requests Count Last Ordered Date Fi rst Ordered Date ONCBCN INFUSION APPOINTMENT REQUEST 1 09/25 documented in this encounter Care Teams Electrician Supervisor Airplane Relationship Specialty Start Date End Date Batsheva Lira FNP [facility] [phone] PCP - General 02/19/20 07/21/22 documented as of this encounter
--- OUTSIDE RECORDS SUMMARY | 2024-05-04 01:32 | XMS_ITS | Encounter Summary ---
Author Organization [facility] Address [address] [place] [address] Care Team Providers Care Divorce Lawyer Name Role Phone Batsheva Lira JOHN Primary Care Provider [phone] Encounter Details Date Type Department Care Team (Late st Contact Info) Description 09/03/2020 Orders Only [facility] Cancer Center Hematology & Oncology - [address] [address] Lolly Antunez, RADHA Malignant neoplasm of upper-inner [...] Info) Description 02/28/2025 13:00 EDT Office Visit [facility] Surgical Oncology - [address] [phone] Meave Morales, [address] [facility], [address] [place] [phone] documented as of this encounter Visit Diagnoses Diagnosis Malignant neoplasm of upper-inner quadrant of left breast in female, estrogen receptor negative (HCC-CMS)- Primary documented in this encounter Orders Appointment Requests Count Last Ordered Date Fi rst Ordered Date ONCBCN CLINIC APPOINTMENT REQUEST 3 021 10/07/2020 ONCBCN INFUSION APPOINTMENT REQUEST - CALCULATED 4 11/27/2020 10/16/2020 documented in this encounter Care Teams Divorce Lawyer Relationship Specialty Start Date End Date Batsheva Lira FNP [address] [place] [phone] PCP - General 02/19/20 07/21/22 documented as of this encounter
--- OUTSIDE RECORDS SUMMARY | 2024-05-04 01:32 | XMS_ITS | Encounter Summary ---
Author Organization [facility] Address [address] [place] [address] Care Team Providers Care Radiographer Name Role Phone Batsheva Lira JOHN Primary Care Provider [phone] Encounter Details Date Type Department Care Team (Late st Contact Info) Description 09/23/2020 15:[address] [facility] Surgical Oncology - Main [place] [address] [place], [place] [address] Social History Tobacco Use Types Packs/Day Years [...] Visit [facility] Surgical Oncology - [facility] [address] [place] [address] Maeve Morales, [address] [facility], [facility], [address] [place] [phone] documented as of this encounter Procedures Procedure Name Priority Date/Time Associated Diagnosis Comments [facility] ONLY Routine 09/23/2020 16:00 EDT documented in this encounter Results * [facility] ONLY (09/23/2020 16:00 EDT) Narrative [facility] POINT OF CARE - 09/23/2020 16:00 EDT This is a non-reportable exam. us Maeve Morales DO [facility] US POC ORDERABLES Final Result Performing Organization Address City/State/[facility] Co de Phone Number [facility] POINT [facility] CARE documented in this encounter Visit Diagnoses Not on filedocumented in this encounter Care Teams Radiographer Relationship Specialty Start Date End Date Batsheva Lira FNP [address] [phone] PCP - General 02/19/20 07/21/22 documented as of this encounter
--- OUTSIDE RECORDS SUMMARY | 2024-05-04 01:32 | XMS_ITS | Encounter Summary ---
Author Organization [facility] Address [address] [place] [address] Care Team Providers Care Shear Operator Automatic Name Role Phone Batsheva Lira JOHN Primary Care Provider [phone] Encounter Details Date Type Department Care Team [...] 02/28/2025 13:00 EDT Office Visit [facility] Surgical Oncology - [address] [address] Maeve Morales, DO [address] [facility], [address] [place] [phone] documented as of this encounter Visit Diagnoses Not on filedocumented in this encounter Care Teams Shear Operator Automatic Relationship Specialty Start Date End Date Batsheva Lira FNP [address] [phone] PCP - General 02/19/20 07/21/22 documented as of this encounter
--- OUTSIDE RECORDS SUMMARY | 2024-05-04 01:32 | XMS_ITS | Encounter Summary ---
Author Organization [facility] Address [address] [place] [address] Care Team Providers Care Evp Strategy Name Role Phone Batsheva Lira JOHN Primary Care Provider [phone] Encounter Details Date Type Department Care Team (Late st Contact Info) Description 08/13/2020 Documentation Visit [facility] Cancer Center Hematology & Oncology - [facility] [address] [place] [address] Veronique Dye Social History Tobacco Use Types [...] and nylon wig caps. Updated pt that [facility] approved her wig request and has ordered her wig. She should expect deliver within a week to 10 days. No other needs at this time. Available as needed. documented in this encounter Plan of Treatment Upcoming Encounters Date Type Department Care Team (Late st Contact Info) Description 02/28/2025 13:00 EDT Office Visit [facility] Surgical Oncology - [address] [address] Maeve Morales, DO [address] [facility], [facility], [address] [place] [phone] documented as of this encounter Visit Diagnoses Not on filedocumented in this encounter Care Teams Evp Strategy Relationship Specialty Start Date End Date Batsheva Lira FNP [address] [phone] PCP - General 02/19/20 07/21/22 documented as of this encounter
--- OUTSIDE RECORDS SUMMARY | 2024-05-04 01:32 | XMS_ITS | Encounter Summary ---
Author Organization [facility] Address [address] [place] [address] Care Team Providers Care Senior Industrial Engineer Name Role Phone Batsheva Lira JOHN Primary Care Provider [phone] Reason for Visit * Reason Onset Date Comments Follow-up 07/24/2020 Encounter Details Date Type Department Care Team (Late st Contact Info) Description 07/24/2020 Telephone [facility] Cancer Center Hematology & Oncology - [address] [phone] Lolly Antunez RN Follow-up Social History Tobacco [...] Visit [facility] Surgical Oncology - [address] [address] Maeve Morales, DO [address] [facility], [address] [place] [address] documented as of this encounter Visit Diagnoses Not on filedocumented in this encounter Care Teams Senior Industrial Engineer Relationship Specialty Start Date End Date Batsheva Lira FNP [address] [phone] PCP - General 02/19/20 07/21/22 documented as of this encounter
--- OUTSIDE RECORDS SUMMARY | 2024-05-04 01:32 | XMS_ITS | Encounter Summary ---
Author Organization [facility] Address [address] [place] [address] Care Team Providers Care Windows Vmware Engineer Name Role Phone Batsheva Lira JOHN Primary Care Provider [phone] Encounter Details Date Type Department Care Team [...] 02/28/2025 13:00 EDT Office Visit [facility] Surgical Oncology - [address] [address] Maeve Morales, [address] [facility], [address] [place] [phone] documented as of this encounter Visit Diagnoses Not on filedocumented in this encounter Care Teams Windows Vmware Engineer Relationship Specialty Start Date End Date Batsheva Lira FNP [address] [place] [phone] PCP - General 02/19/20 07/21/22 documented as of this encounter
--- OUTSIDE RECORDS SUMMARY | 2024-05-04 01:32 | XMS_ITS | Encounter Summary ---
Author Organization [facility] Address [address] [place] [address] Care Team Providers Care Manager Online Name Role Phone Batsheva Lira JOHN Primary Care Provider [phone] Reason for Referral * Radiology Services (Routine) - Closed Specialty Diagnoses / Procedures Referred By Contac t Referred To Contact Diagnoses Malignant neoplasm of left breast in female, estrogen receptor negative, unspecified site of breast (HCC-CMS) Procedures IR CHEST PORT 5 YRS OR OLDER Queenie Conde MD Phone: tel: fax: Referral ID Status Reason Start Date Expiration Date Visits Re quested Visits Authorized [id number] Closed 07/15/2020 1 1 Reason for Visit * Radiology Services (Routine) - Closed Specialty Diagnoses / Procedures Referred By Contac t Referred To Contact Diagnoses Malignant neoplasm of left breast in female, estrogen receptor negative, unspecified site of breast (HCC-CMS) Procedures IR CHEST PORT 5 YRS OR OLDER Queenie Conde MD Phone: tel: fax: Referral ID Status Reason Start Date Expiration Date Visits Re quested Visits Authorized [id number] Closed 07/15/2020 1 1 Encounter Details Date Type Department Care Team (Late st Contact Info) Description 08/08/2020 8:28 EDT - 08/08/2020 11:47 EDT Hospital Encounter [facility] Interventional Radiology - [facility] [address] [place] [address] [place] [address] [place] [address] Antony Lord MD [address] [facility], [place], [address] 1 [place] [phone] Malignant neoplasm of left breast in female, [...] provided with an ID card stating the contract associate and type of port you have. PLEASE [...] IUD, INTRAUTERINE by intrauterine route. 01/12/20 22 MELOXICAM ORAL Take by mouth as needed. 08/14/19 21 ondansetron (ZOFRAN-ODT) 8 mg disintegrating tablet [...] for pain. 1 Tube 1 03/26/20 21 UNKNOWN TO PATIENT 21 documented as of this encounter Discharge Disposition Disposition Code Departure Means Destination Home or Self Care Wheelchair Home documented in this encounter Progress Notes * Amita Sotelo RN - 08/08/2020 1102 EDT 1037 Patient received into CVU and given plan of care. 1104 Tolerating food and drink. 1108 Field Professional for patient updated on plan of care. 1133 Patient has ambulated to bathroom and back. Given discharge instructions and verbalizes understanding. Also given dressing supplies and ID card for port. Given more to drink and some crackers. 1136 Patient discharged to home.Patient left CVU luis m wheelchair pushed by transportation escort [place]. * Estrella Westbrook RN - 08/08/2020 0922 [...] a message for them to call IR medical office scheduler [phone]) forpre-procedure instructions [phone]. If patient should call back, the following information should be given and charted: Viral screen for patient and their single local company refrigerated truck driver/visitor: ??? Do you have a [...] screening. For All: ??? Entrances into all [facility] buildings and clinics will be restricted [...] Acceptable Liquids Unacceptable (DO NOT Drink -Water -Leon juice (orange or pineapple) -Clear Fruit Juices Apple Juice Grape Juice Cranberry Juice -Clear broth -Gelatin (Jell-O)* -Apple Sauce -Gatorade -Clear carbonated beverages -black coffee/black tea - sweetener ok -Medications - Pt should take prescribed medications. Pt should take PRN pain, anxiety, nausea medsas needed. -Meds to hold: mobic x 10 days (if hasn't stopped check with conceptor provider) Pt should not take ibuprofen (Motrin, Advil) for 24 hours prior to the procedure, naproxen (Aleve) for 2 days before, or full strength aspirin or medicine with aspirin in it for 5 days before the procedure. If pt is on baby asa, this is ok to continue. Tylenol (acetaminophen) may be taken for pain. -Due to sedation patient must have a local company refrigerated truck driver (bus or taxi is not allowed) - Bring a list of current medications/allergy list -Bring CPAP if applicable -Shower night before or morning of procedure -Leave all valuables/medications at home (pt's with hearing aids should bring them) IR medical office scheduler number given ([phone]) to call w/ any questions (preferably M-F 0830-4 pm) Barriers: maximino * Estrella Westbrook RN - 08/08/2020 0900 [...] cancer. ?? HISTORY OF PRESENT ILLNESS: Austin's business intelligence analyst noticed a mass in 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 She then underwent imaging and a biopsy on 224 of a 2.1 cm mass revealed a nuclear grade 3 ER negative [place] negative for B2 negative ductal carcinoma. Staging evaluation did reveal a prominent L IM lymphnode but otherwise negative. 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 ?? SUBJECTIVE: Austin is doing well and ready to start chemotherapy. She has no new constitutional, cardiovascular,pulmonary, GI, ,TRIMMING OPERATOR, musculoskeletal, psychiatric, neurologic, endocrine, or heme symptoms. [...] his 90s. ??Her paternal relatives are of [place] descent. ?? Objective: BP (!) 142/85 Pulse [...] Central Catheter Insertion First Catheter This Session textile cutting machine operator: Patient Location: /[facility] IR POOL BED Preliminary Data: Insertion Date: 08/08/20 Insertion Time: 1003 First Channel Supervisor: risa GARCIA/CHILANGO Documenting Procedure: mirzakey Pre-procedure: Time Out / Final Moment Performed: [...] Line Operators: Number Of Operators: 1 First Channel Supervisor's Name: ArtemMarie Risa First Channel Supervisor's Title: Attending Unless otherwise noted, there were no complications, no blood loss and no cultures obtained. Antony Lord MD 08/08/2020 10:37 documented in this encounter Plan of Treatment Upcoming Encounters Date Type Department Care Team (Late st Contact Info) Description 02/28/2025 13:[address] [facility] Surgical Oncology - [address] [address] Maeve Morales DO [address] [place] [address], [address] 2 [place] [phone] documented as of this encounter Procedures Procedure Name Priority Date/Time Associated Diagnosis Comments IR CHEST PORT 5 YRS OR OLDER Routine 08/08/2020 10:36 EDT Malignant neoplasm of left breast in female, estrogen receptor negative, unspecified site of breast ([facility]) documented in this encounter Results * IR [...] the right IJ usingsonographic and fluoroscopic guidance. us Queenie Conde MD IMG IR ORDERABLES Final Result documented in this encounter [...] may reflect changes made after this encounter. amLODIPine (NORVASC) 2.5 mg tablet Take 2.5 mg by mouth daily. 01/11/2022 UNKNOWN TO PATIENT 08/13/2020 added in this encounter Active and Recently Administered Medications Times are shown in EDT. Scheduled Medication Order 08/06/2020 08/07/2020 08/08/2020 chlorhexidine gluconate 2 % cloth 1 Each 1 Each, topical, DAILY, First dose on Tue08/08/20 at 0900, Until Discontinued, Routine, Preprocedure 0909 (Given - Provid er: Khalif Broderick RN) [...] 08/08/2020 documented in this encounter Care Teams Manager Online Relationship Specialty Start Date End Date Batsheva Lira FNP [address] [phone] PCP - General 02/19/20 07/21/22 documented as of this encounter
--- OUTSIDE RECORDS SUMMARY | 2024-05-04 01:32 | XMS_ITS | Encounter Summary ---
Author Organization [facility] Address [address] [place] [address] Care Team Providers Care Dining Room Server Name Role Phone Batsheva Lira JOHN Primary Care Provider [phone] Reason for Visit * Reason Onset Date Comments Social Work 09/19/2020 financial Encounter Details Date Type Department Care Team (Late st Contact Info) Description 09/19/2020 Telephone [facility] Cancer Center Hematology & Oncology - [facility] [address], [place] [phone] Veronique Dye Social Work (financial ) Social [...] - 09/19/2020 0933 EDT PN checked the [employer] online portal to see if a decision [...] [facility] Surgical Oncology - [address] [address] Maeve Morales, [address] [facility], [address] [place] [phone] documented as of this encounter Visit Diagnoses Not on filedocumented in this encounter Care Teams Dining Room Server Relationship Specialty Start Date End Date Batsheva Lira FNP [address] [phone] PCP - General 02/19/20 07/21/22 documented as of this encounter
--- OUTSIDE RECORDS SUMMARY | 2024-05-04 01:32 | XMS_ITS | Encounter Summary ---
Author Organization [facility] Address [address] [place] [address] Care Team Providers Care Activity Manager Name Role Phone Batsheva Lira JOHN Primary Care Provider Reason for Visit * Reason Comments Chemotherapy And Provider Visit Follow-up Encounter Details Date Type Department Care Team (Late st Contact Info) Description 07/22/2020 9:00 EST Office Visit [facility] Cancer Center Hematology & Oncology - Main [place] [address] [place] [address] [place] [address] [place] [phone] Malignant neoplasm of upper-inner quadrant of [...] Refills Last Filled Start Date End Date prochlorperazine (COMPAZINE) 10 mg tablet Take 1 Tab by mouth every 6 hours as needed for Nausea. 30 Tab 5 07/22/2020 12/25/2020 documented in this encounter Progress Notes * Queenie Conde MD - 07/22/2020 0900 EST REASON FOR OFFICE VISIT Austin is a 44-year-old female here to initiate neoadjuvant chemotherapy for her breast cancer. ?? HISTORY OF PRESENT ILLNESS: Austin's manager assurance noticed a mass in 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 She then underwent imaging and a biopsy on 224 of a 2.1 cm mass revealed a nuclear grade 3 ER negative [place] negative for B2 negative ductal carcinoma. Staging evaluation did reveal a prominent L IM lymphnode but otherwise negative. 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 ?? SUBJECTIVE: Austin is doing well and ready to start chemotherapy. She has no new constitutional, cardiovascular,pulmonary, GI, ,X RAY EQUIPMENT MECHANIC, musculoskeletal, psychiatric, neurologic, endocrine, or heme symptoms. 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 ??Her paternal relatives are of [place] descent. ?? Objective: BP (!) 142/85 Pulse [...] Visit [facility] Surgical Oncology - [facility] [address], [place] [address] Maeve Morales, DO [address] [facility], [facility], [address] [place] [phone] documented as of this encounter Procedures Procedure Name Priority Date/Time Associated Diagnosis Comments ECG REPORT - SCANNED 01/26/2021 8:38 EDT ECG REPORT - SCANNED 01/26/2021 7:54 EDT documented in this encounter Results * ECG REPORT - SCANNED (01/26/2021 8:38 EDT) 01/26/2021 8:38 EDT us Scan 2 Applications Analyst PROCEDURE/MINOR SURGICAL OR DERABLES Final Result * ECG REPORT - SCANNED (01/26/2021 7:54 EDT) 01/26/2021 7:54 EDT us Scan 2 Applications Analyst PROCEDURE/MINOR SURGICAL OR DERABLES Final Result documented in this encounter Visit Diagnoses Diagnosis Malignant neoplasm of upper-inner quadrant of left breast in female, estrogen receptor negative (HCC-CMS)- Primary documented in this encounter Orders Appointment Requests Count Last Ordered Date Fi rst Ordered Date ONCBCN CLINIC APPOINTMENT REQUEST 1 021 documented in this encounter Care Teams Activity Manager Relationship Specialty Start Date End Date Batsheva Lira FNP [address] [phone] PCP - General 02/19/20 07/21/22 documented as of this encounter
--- OUTSIDE RECORDS SUMMARY | 2024-05-04 01:33 | XMS_ITS | Encounter Summary ---
Author Organization [facility] Address [address] [place] [address] Care Team Providers Care Package Delivery Driver Name Role Phone Batsheva Lira JOHN Primary Care Provider [phone] Reason for Referral * Radiology Services (Routine) - Closed Specialty Diagnoses / Procedures Referred By Contac t Referred To Contact Diagnoses Malignant neoplasm of left breast in female, estrogen receptor negative, unspecified site of breast ([facility]) Procedures IR CHEST PORT 5 YRS OR OLDER Queenie Conde MD Phone: tel: fax: Referral ID Status Reason Start Date Expiration Date Visits Re quested Visits Authorized [id number] Closed 07/15/2020 1 1 * Cardiology (Routine) - Closed Specialty Diagnoses / Procedures Referred By Contac t Referred To Contact Diagnoses Malignant neoplasm of left breast in female, estrogen receptor negative, unspecified site of breast ([facility]) Procedures TRANSTHORACIC ECHO (TTE) COMPLETE Queenie Conde MD Phone: tel: fax: Referral ID Status Reason Start Date Expiration Date Visits Re quested Visits Authorized [id number] Closed 07/15/2020 1 1 Reason for Visit * Reason Comments New Patient Visit Encounter Details Date Type Department Care Team (Latest Contact Info) Description 07/15/2020 10:30 EST Multidisciplinary [facility] Cancer Center Hematology & Oncology - Main [place] [address] [place] [address] [place] [address] [place] [phone] Malignant neoplasm of left breast in [...] breast cancer HISTORY OF PRESENT ILLNESS: 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 She then underwent imaging and a biopsy on 224 of a 2.1 cm mass revealed a nuclear grade 3 ER negative [place] negative for B2 negative ductal carcinoma. SUBJECTIVE: [...] no additional new constitutional, cardiovascular, pulmonary, GI, ,FIRE CODE INSPECTOR, musculoskeletal, psychiatric, neurologic, endocrine, or heme symptoms. [...] his 90s. Her paternal relatives are of [place] descent. Objective: BP (!) 150/83 Pulse 99 [...] 13:00 EDT Office Visit [facility] Surgical Oncology - [address] [phone] Maeve Morales DO [address] [place] [address], [address] [place] [phone] documented as of this encounter Results * [...] color Doppler.The study was interpreted by [facility] Cardiology. Pertinent images and [...] MD CARDIAC ECHO ORDERABLES Final Re sult * IR CHEST PORT 5 YRS OR [...] the patient's permanent medical record. Procedure Note Antony Lord MD - 08/08/2020 Technique and Findings: Written [...] (HCC-CMS) documented in this encounter Care Teams Package Delivery Driver Relationship Specialty Start Date End Date Batsheva Lira FNP [address] [phone] PCP - General 02/19/20 07/21/22 documented as of this encounter
--- OUTSIDE RECORDS SUMMARY | 2024-05-04 01:33 | XMS_ITS | Encounter Summary ---
Author Organization [facility] Address [address] [place] [address] Care Team Providers Care Guest Relations Agent Name Role Phone Batsheva Lira JOHN Primary Care Provider [phone] Encounter Details Date Type Department Care Team (Late st Contact Info) Description 07/15/2020 11:30 EST Ancillary Procedure [facility] Surgical Oncology - Main [place] [address] [place] [address] Social History Tobacco Use Types Packs/Day Years [...] Visit [facility] Surgical Oncology - [facility] [address] [place] [address] Maeve Morales DO 111 [facility], [facility], [address] [place] [phone] documented as of this encounter Procedures Procedure Name Priority Date/Time Associated Diagnosis Comments [facility] BREAST BREAST [facility] ONLY Routine 07/15/2020 12:40 EST documented in this encounter Results * [facility] BREAST BREAST [facility] ONLY (07/15/2020 12:40 EST) Narrative [facility] POINT OF CARE - 07/15/2020 12:40 EST This is a non-reportable exam. us Maeve Morales DO IMG US POC ORDERABLES Final Result [facility] POINT OF CARE documented in this encounter Visit Diagnoses Not on filedocumented in this encounter Care Teams Guest Relations Agent Relationship Specialty Start Date End Date Batsheva Lira FNP [address] [place] [phone] PCP - General 02/19/20 07/21/22 documented as of this encounter
--- OUTSIDE RECORDS SUMMARY | 2024-05-04 01:33 | XMS_ITS | Encounter Summary ---
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 12/04/19 23 ethinyl estradiol-etonogest rel (NUVARING) 0.12-0.015 mg/[address] 1 Each vaginally every 28 days. Wear continuously for 3 weeks; remove for 1 week; repeat with new ring, as directed. 08/09/19 21 INTRAUTERINE DEVICE, IUD, INTRAUTERINE by intrauterine route. 01/12/20 22 MELOXICAM ORAL Take by mouth as needed. 08/14/19 21 methocarbamoL (ROBAXIN) 750 mg tablet Take 1 Tab by mouth 4 times daily. 20 Tab 1 08/09/19 21 ondansetron (ZOFRAN-ODT) 8 mg disintegrating tablet Take 1 Tab by mouth every 8 hours as needed for Nausea. 60 Tab 2 1 12/26/19 21 oxybutynin (DITROPAN) 5 mg tablet Take 5 mg by mouth daily. 11/28/19 21 prochlorperazine (COMPAZINE) 10 mg tablet Take 1 Tab by mouth every 6 hours as needed for Nausea. 30 Tab 5 1 12/26/19 21 documented as of this encounter Discharge [...] and MD Henry. Compazine script sent to [facility] pharmacy today. Patient noted with Peripheral [...] Info) Description 02/28/2025 13:00 EDT Office Visit [facility] Surgical Oncology - [address] [id number] Maeve Morales DO [address] [place] [address], [address] [place] [id number] Scheduled Orders Name Type Priority Associated Diagnoses [...] 4.00 - 12.40 K/cmm 02/05/2021 12:35 EDT [facility] RBC 4.85 3.86 - 5.04 M/cmm 02/05/2021 12:35 [facility] Hemoglobin 14.4 11.6 - 15.2 gm/dL 02/05/2021 12:35 [facility] HCT 44.0 34.9 - 44.4 % 02/05/2021 12:35 [facility] MCV 91 81 - 98 fl 02/05/2021 12:35 [facility] MCH 29.7 26.7 - 33.3 pg 02/05/2021 12:35 [facility] MCHC 32.7 32.1 - 35.9 gm/dL 02/05/2021 12:35 [facility] RDW-CV 12.6 <14.7 % 02/05/2021 12:35 [facility] RDW-SD 41.7 <50.4 fl 02/05/2021 12:35 [facility] PLT 255 141 - 377 K/cmm 02/05/2021 12:35 [facility] MPV 9.2(L) 9.5 - 12.7 fl 02/05/2021 12:35 [facility] % Neutrophils 56.9 % 02/05/2021 12:35 [facility] Absolute Neutrophils 3.44 2.20 - 8.85 K/cmm 02/05/2021 12:35 [facility] Type of Differential: Auto 02/05/2021 12:35 [facility] Blood VENOUS BLOOD / Unknown Venipuncture / Unknown 02/05/2021 12:20 EDT 02/05/2021 12:23 EDT us Teri Henry MD PACKAGES & DNA PROBE ORDERABLES Final Result [facility] [address] [place] [address] * (ABNORMAL) COMPREHENSIVE METABOLIC PANEL (ONCOLOGY USE ONLY-INC MG) (02/05/2021 12:20 EDT) Sodium 139 136 - 145 mmol/L 02/05/2021 12:57 [facility] Potassium 4.0 3.5 - 5.0 mEq/L 02/05/2021 12:57 [facility] Chloride 101 96 - 110 mEq/L 02/05/2021 12:57 [facility] CO2 Total 25 22 - 32 mEq/L 02/05/2021 12:57 [facility] Glucose 141(H) 70 - 100 mg/dL 02/05/2021 12:57 [facility] BUN 9(L) 10 - 26 mg/dL 02/05/2021 12:57 [facility] Creatinine 0.51(L) 0.52 - 1.04 mg/dL 02/05/2021 12:57 [facility] eGFR 116 >60 mL/min/1.7 3m2 02/05/2021 12:57 [facility] Comment:eGFR calculated mata asif CKD-EPI equation for non- Americans. Multiply eGFR by 1.16 for patients. Total Protein 7.8 6.3 - 8.2 g/dL 02/05/2021 12:57 [facility] Albumin 4.9 3.4 - 4.9 g/dL 02/05/2021 12:57 [facility] Alkaline Phosphatase 161(H) 38 - 126 U/L 02/05/2021 12:57 [facility] AST 102(H) 15 - 46 U/L 02/05/2021 12:57 [facility] ALT 157(H) <35 U/L 02/05/2021 12:57 [facility] Bilirubin, Total <0.5 <1.4 mg/dL 02/06/20 12:57 [facility] Calcium 10.3 8.5 - 10.5 mg/dL 02/05/2021 12:57 [facility] Calculated Calcium 9.6 8.5 - 10.5 mg/dL 02/05/2021 12:57 [facility] Magnesium 1.8 1.7 - 2.8 mg/dL 02/05/2021 12:57 [facility] Blood VENOUS BLOOD / Unknown Venipuncture / Unknown 02/05/2021 12:20 EDT 02/05/2021 12:23 EDT us Teri Henry MD CHEMISTRY & BLOOD GAS ORDERABLES Final Result [facility] [address] [place] [address] * COMPLETE BLOOD COUNT AND DIFF, CHEMO (01/27/2021 11:41 EDT) WBC 6.13 4.00 - 12.40 K/cmm 01/27/2021 12:01 [facility] RBC 4.63 3.86 - 5.04 M/cmm 01/27/2021 12:01 [facility] Hemoglobin 14.3 11.6 - 15.2 gm/dL 01/27/2021 12:01 [facility] HCT 43.0 34.9 - 44.4 % 01/27/2021 12:01 [facility] MCV 93 81 - 98 fl 01/27/2021 12:01 [facility] MCH 30.9 26.7 - 33.3 pg 01/27/2021 12:01 [facility] MCHC 33.3 32.1 - 35.9 gm/dL 01/27/2021 12:01 [facility] RDW-CV 12.8 <14.7 % 01/27/2021 12:01 [facility] RDW-SD 43.7 <50.4 fl 01/27/2021 12:01 [facility] PLT 259 141 - 377 K/cmm 01/27/2021 12:01 [facility] MPV 9.5 9.5 - 12.7 fl 01/27/2021 12:01 [facility] % Neutrophils 58.7 % 01/27/2021 12:01 [facility] Absolute Neutrophils 3.60 2.20 - 8.85 K/cmm 01/27/2021 12:01 [facility] Type of Differential: Auto 01/27/2021 12:01 [facility] Blood VENOUS BLOOD / Unknown Venipuncture / Unknown 01/27/2021 11:41 EDT 01/27/2021 11:48 EDT us Teri Henry MD PACKAGES & DNA PROBE ORDERABLES Final Result [facility] [address] [place] [address] * (ABNORMAL) COMPREHENSIVE METABOLIC PANEL (ONCOLOGY USE ONLY-INC MG) (01/27/2021 11:41 EDT) Sodium 140 136 - 145 mmol/L 01/27/2021 12:10 [facility] Potassium 4.2 3.5 - 5.0 mEq/L 01/27/2021 12:10 [facility] Chloride 104 96 - 110 mEq/L 01/27/2021 12:10 [facility] CO2 Total 21(L) 22 - 32 mEq/L 01/27/2021 12:10 [facility] Glucose 121(H) 70 - 100 mg/dL 01/27/2021 12:10 [facility] BUN 16 10 - 26 mg/dL 01/27/2021 12:10 [facility] Creatinine 0.45(L) 0.52 - 1.04 mg/dL 01/27/2021 12:10 [facility] eGFR 121 >60 mL/min/1.7 3m2 01/27/2021 12:10 [facility] Comment:eGFR calculated mata asif CKD-EPI equation for non- Americans. Multiply eGFR by 1.16 for patients. Total Protein 8.0 6.3 - 8.2 g/dL 01/27/2021 12:10 [facility] Albumin 5.1(H) 3.4 - 4.9 g/dL 01/27/2021 12:10 [facility] Alkaline Phosphatase 151(H) 38 - 126 U/L 01/27/2021 12:10 [facility] AST 121(H) 15 - 46 U/L 01/27/2021 12:10 [facility] ALT 158(H) <35 U/L 01/27/2021 12:10 [facility] Bilirubin, Total <0.5 <1.4 mg/dL 01/28/20 12:10 [facility] Calcium 10.0 8.5 - 10.5 mg/dL 01/27/2021 12:10 [facility] Calculated Calcium 9.1 8.5 - 10.5 mg/dL 01/27/2021 12:10 [facility] Magnesium 1.9 1.7 - 2.8 mg/dL 01/27/2021 12:10 [facility] Blood VENOUS BLOOD / Unknown Venipuncture / Unknown 01/27/2021 11:41 EDT 01/27/2021 11:48 EDT us Teri Henry MD CHEMISTRY & BLOOD GAS ORDERABLES Final Result Performing Organization Address City/State/RUST Co de Phone Number [facility] [address] [place] [address] * (ABNORMAL) COMPLETE BLOOD COUNT AND DIFF, [...] 12/17/2020 9:48 EDT 12/17/2020 9:55 EDT us Teri Henry MD PACKAGES & DNA PROBE ORDERABLES Final Result [facility] [address] [place] [address] * (ABNORMAL) COMPREHENSIVE METABOLIC PANEL (ONCOLOGY USE [...] 90(H) 15 - 46 U/L 12/17/2020 10:31 [facility] ALT 100(H) <35 U/L 12/17/2020 10:31 [facility] Bilirubin, Total 0.6 <1.4 mg/dL 12/18/19 10:31 [facility] Calcium 9.7 8.5 - 10.5 mg/dL 12/17/2020 10:31 [facility] Calculated Calcium 9.1 8.5 - 10.5 mg/dL 12/17/2020 10:31 [facility] Magnesium 1.8 1.7 - 2.8 mg/dL 12/17/2020 10:31 [facility] Blood VENOUS BLOOD / Unknown Venipuncture / Unknown 12/17/2020 9:48 EDT 12/17/2020 9:55 EDT us Teri Henry MD CHEMISTRY & BLOOD GAS ORDERABLES Final Result [facility] [address] [place] [address] * (ABNORMAL) COMPLETE BLOOD COUNT AND DIFF, CHEMO (11/27/2020 9:10 EDT) WBC 8.27 4.00 - 12.40 K/cmm 11/27/2020 9:32 [facility] RBC 3.79(L) 3.86 - 5.04 M/cmm 11/27/2020 9:32 [facility] Hemoglobin 11.6 11.6 - 15.2 gm/dL 11/27/2020 9:32 [facility] HCT 34.2(L) 34.9 - 44.4 % 11/27/2020 9:32 [facility] MCV 90 81 - 98 fl 11/27/2020 9:32 [facility] MCH 30.6 26.7 - 33.3 pg 11/27/2020 9:32 [facility] MCHC 33.9 32.1 - 35.9 gm/dL 11/27/2020 9:32 [facility] RDW-CV 18.5(H) <14.7 % 11/27/2020 9:32 [facility] RDW-SD 57.1(H) <50.4 fl 11/27/2020 9:32 [facility] PLT 184 141 - 377 K/cmm 11/27/2020 9:32 [facility] MPV 10.2 9.5 - 12.7 fl 11/27/2020 9:32 [facility] % Neutrophils 64.9 % 11/27/2020 9:32 [facility] Absolute Neutrophils 5.36 2.20 - 8.85 K/cmm 11/27/2020 9:32 [facility] Type of Differential: Auto 11/27/2020 9:32 [facility] Blood VENOUS BLOOD / Unknown Venipuncture / Unknown 11/27/2020 9:10 EDT 11/27/2020 9:27 EDT us Teri Henry MD PACKAGES & DNA PROBE ORDERABLES Final Result [facility] [address] [place] [address] * (ABNORMAL) COMPREHENSIVE METABOLIC PANEL (ONCOLOGY USE ONLY-INC MG) (11/27/2020 9:10 EDT) Sodium 138 136 - 145 mEq/L [facility]2020 [facility] Potassium 4.1 3.5 - 5.0 mEq/L 11/27/2020 10:12 [facility] Chloride 100 96 - 110 mEq/L 11/27/2020 10:12 [facility] CO2 Total 23 22 - 32 mEq/L 11/27/2020 10:12 [facility] Glucose 197(H) 70 - 100 mg/dL 11/27/2020 10:12 [facility] BUN 15 10 - 26 mg/dL 11/27/2020 10:12 [facility] Creatinine 0.40(L) 0.52 - 1.04 mg/dL 11/27/2020 10:12 [facility] eGFR 126 >60 mL/min/1.7 3m2 11/27/2020 10:12 [facility] Comment:eGFR calculated mata asif CKD-EPI equation for non- Americans. Multiply eGFR by 1.16 for patients. Total Protein 7.2 6.3 - 8.2 g/dL 11/27/2020 10:12 [facility] Albumin 4.7 3.4 - 4.9 g/dL 11/27/2020 10:12 [facility] Alkaline Phosphatase 155(H) 38 - 126 U/L 11/27/2020 10:12 [facility] AST 60(H) 15 - 46 U/L 11/27/2020 10:12 [facility] ALT 98(H) <35 U/L 11/27/2020 10:12 EDT [facility] Bilirubin, Total <0.5 <1.4 mg/dL 11/28/19 10:12 T [facility] Calcium 9.5 8.5 - 10.5 mg/dL 11/27/2020 10:12 T [facility] Calculated Calcium 8.9 8.5 - 10.5 mg/dL 11/27/2020 10:12 T [facility] Magnesium 1.8 1.7 - 2.8 mg/dL 11/27/2020 10:12 T [facility] Blood VENOUS BLOOD / Unknown Venipuncture / Unknown 11/27/2020 9:10 EDT 11/27/2020 9:27 EDT us Teri Henry MD CHEMISTRY & BLOOD GAS ORDERABLES Final Result Performing Organization Address City/State/[place] Co de Phone Number [facility] [address] [place] [address] * (ABNORMAL) COMPLETE BLOOD COUNT AND DIFF, CHEMO (11/13/2020 12:47 EDT) WBC 7.88 4.00 - 12.40 K/cmm 11/13/2020 13:18 [facility] RBC 3.77(L) 3.86 - 5.04 M/cmm 11/13/2020 13:18 [facility] Hemoglobin 11.7 11.6 - 15.2 gm/dL 11/13/2020 13:18 [facility] HCT 33.2(L) 34.9 - 44.4 % 11/13/2020 13:18 [facility] MCV 88 81 - 98 fl 11/13/2020 13:18 [facility] MCH 31.0 26.7 - 33.3 pg 11/13/2020 13:18 [facility] MCHC 35.2 32.1 - 35.9 gm/dL 11/13/2020 13:18 [facility] RDW-CV 16.8(H) <14.7 % 11/13/2020 13:18 [facility] RDW-SD 50.4(H) <50.4 fl 11/13/2020 13:18 [facility] PLT 190 141 - 377 K/[facility] 11/13/2020 13:18 [facility] MPV 10.2 9.5 - 12.7 fl 11/13/2020 13:18 [facility] % Neutrophils 66.3 % 11/13/2020 13:18 [facility] Absolute Neutrophils 5.22 2.20 - 8.85 K/cm 11/13/2020 13:18 [facility] Type of Differential: Auto 11/13/2020 13:18 [facility] Blood VENOUS BLOOD / Unknown Venipuncture / Unknown 11/13/2020 12:47 EDT 11/13/2020 13:01 EDT Teri Henry MD PACKAGES & DNA PROBE ORDERABLES Final Result [facility] [address] [place] [address] * (ABNORMAL) COMPREHENSIVE METABOLIC PANEL (ONCOLOGY USE ONLY-INC MG) (11/13/2020 12:47 EDT) Sodium 140 136 - 145 mEq/L 11/13/2020 13:19 [facility] Potassium 4.0 3.5 - 5.0 mEq/L 11/13/2020 13:19 [facility] Chloride 104 96 - 110 mEq/L 11/13/2020 13:19 [facility] CO2 Total 23 22 - 32 mEq/L 11/13/2020 13:19 [facility] Glucose 206(H) 70 - 100 mg/dL 11/13/2020 13:19 [facility] BUN 13 10 - 26 mg/dL 11/13/2020 13:19 [facility] Creatinine 0.38(L) 0.52 - 1.04 mg/dL 11/13/2020 13:19 [facility] eGFR 128 >60 mL/min/1.7 3m2 11/13/2020 13:19 [facility] Comment:eGFR calculated mata asif CKD-EPI equation for non- Americans. Multiply eGFR by 1.16 for patients. Total Protein 6.9 6.3 - 8.2 g/dL 11/13/2020 13:19 [facility] Albumin 4.3 3.4 - 4.9 g/dL 11/13/2020 13:19 [facility] Alkaline Phosphatase 142(H) 38 - 126 U/L 11/13/2020 13:19 [facility] AST 56(H) 15 - 46 U/L 11/13/2020 13:19 [facility] ALT 91(H) <35 U/L 11/13/2020 13:19 [facility] Bilirubin, Total <0.5 <1.4 mg/dL 11/14/19 13:19 [facility] Calcium 9.2 8.5 - 10.5 mg/dL 11/13/2020 13:19 [facility] Calculated Calcium 9.0 8.5 - 10.5 mg/dL 11/13/2020 13:19 [facility] Magnesium 1.8 1.7 - 2.8 mg/dL 11/13/2020 13:19 [facility] Blood VENOUS BLOOD / Unknown Venipuncture / Unknown 11/13/2020 12:47 EDT 11/13/2020 13:01 EDT us Teri Henry MD CHEMISTRY & BLOOD GAS ORDERABLES Final Result [facility] [address] [place] [address] * (ABNORMAL) COMPLETE BLOOD COUNT AND DIFF, CHEMO (10/30/2020 8:35 EDT) WBC 6.81 4.00 - 12.40 K/cmm 10/30/2020 8:56 [facility] RBC 4.19 3.86 - 5.04 M/cmm 10/30/2020 8:56 [facility] Hemoglobin 12.5 11.6 - 15.2 gm/dL 10/30/2020 8:56 [facility] HCT 36.8 34.9 - 44.4 % 10/30/2020 8:56 [facility] MCV 88 81 - 98 fl 10/30/2020 8:56 [facility] MCH 29.8 26.7 - 33.3 pg 10/30/2020 8:56 [facility] MCHC 34.0 32.1 - 35.9 gm/dL 10/30/2020 8:56 [facility] RDW-CV 16.0(H) <14.7 % 10/30/2020 8:56 [facility] RDW-SD 49.0 <50.4 fl 10/30/2020 8:56 [facility] PLT 204 141 - 377 K/cmm 10/30/2020 8:56 [facility] MPV 9.9 9.5 - 12.7 fl 10/30/2020 8:56 [facility] % Neutrophils 60.2 % 10/30/2020 8:56 [facility] Absolute Neutrophils 4.10 2.20 - 8.85 K/cmm 10/30/2020 8:56 [facility] Type of Differential: Auto 10/30/2020 8:56 [facility] Blood BLOOD SAMPLE TAKEN FROM CENTRAL LINE / Unknown Venipuncture / Unknown 10/30/2020 8:35 EDT 10/30/2020 8:46 EDT us Teri Henry MD PACKAGES & DNA PROBE ORDERABLES Final Result [facility] [address] [place] [address] * (ABNORMAL) COMPREHENSIVE METABOLIC PANEL (ONCOLOGY USE ONLY-INC MG) (10/30/2020 8:35 EDT) Sodium 139 136 - 145 mEq/L 10/30/2020 9:21 [facility] Potassium 4.0 3.5 - 5.0 mEq/L 10/30/2020 9:21 [facility] Chloride 101 96 - 110 mEq/L 10/30/2020 9:21 [facility] CO2 Total 27 22 - 32 mEq/L 10/30/2020 9:21 [facility] Glucose 154(H) 70 - 100 mg/dL 10/30/2020 9:21 [facility] BUN 12 10 - 26 mg/dL 10/30/2020 9:21 [facility] Creatinine 0.40(L) 0.52 - 1.04 mg/dL 10/30/2020 9:21 [facility] eGFR 126 >60 mL/min/1.7 3m2 10/30/2020 9:21 [facility] Comment:eGFR calculated mata asif CKD-EPI equation for non- Americans. Multiply eGFR by 1.16 for patients. Total Protein 7.0 6.3 - 8.2 g/dL 10/30/2020 9:21 [facility] Albumin 4.3 3.4 - 4.9 g/dL 10/30/2020 9:21 [facility] Alkaline Phosphatase 162(H) 38 - 126 U/L 10/30/2020 9:21 [facility] AST 51(H) 15 - 46 U/L 10/30/2020 9:21 [facility] ALT 84(H) <35 U/L 10/30/2020 9:21 [facility] Bilirubin, Total <0.5 <1.4 mg/dL 10/31/19 9:21 [facility] Calcium 9.3 8.5 - 10.5 mg/dL 10/30/2020 9:21 [facility] Calculated Calcium 9.1 8.5 - 10.5 mg/dL 10/30/2020 9:21 EDT [facility] Magnesium 1.9 1.7 - 2.8 mg/dL 10/30/2020 9:21 T [facility] Blood VENOUS BLOOD / Unknown Central Line Draw / Unknown 10/30/2020 8:35 EDT 10/30/2020 8:46 EDT Teri Henry MD CHEMISTRY & BLOOD GAS ORDERABLES Final Result [facility] [address] [place] [address] * (ABNORMAL) COMPLETE BLOOD COUNT AND DIFF, CHEMO (10/23/2020 9:10 EDT) WBC 1.38(L) 4.00 - 12.40 K/cmm 10/23/2020 10:52 [facility] RBC 4.33 3.86 - 5.04 M/cmm 10/23/2020 10:52 [facility] Hemoglobin 12.7 11.6 - 15.2 gm/dL 10/23/2020 10:52 [facility] HCT 36.8 34.9 - 44.4 % 10/23/2020 10:52 [facility] MCV 85 81 - 98 fl 10/23/2020 10:52 [facility] MCH 29.3 26.7 - 33.3 pg 10/23/2020 10:52 [facility] MCHC 34.5 32.1 - 35.9 gm/dL 10/23/2020 10:52 [facility] RDW-CV 14.3 <14.7 % 10/23/2020 10:52 [facility] RDW-SD 44.2 <50.4 fl 10/23/2020 10:52 [facility] PLT 70(L) 141 - 377 K/cmm 10/23/2020 10:52 [facility] MPV 10.3 9.5 - 12.7 fl 10/23/2020 10:52 [facility] Type of Differential: Manual 10/23/2020 10:52 [facility] Comment:Automated differenti al not available. Manual differential to follow. Blood VENOUS BLOOD / Unknown Venipuncture / Unknown 10/23/2020 9:10 EDT 10/23/2020 9:56 EDT us Teri Henry MD PACKAGES & DNA PROBE ORDERABLES Final Result [facility] [address] [place] [address] * (ABNORMAL) COMPREHENSIVE METABOLIC PANEL (ONCOLOGY USE ONLY-INC MG) (10/23/2020 9:10 EDT) Sodium 140 136 - 145 mEq/L 10/23/2020 10:11 [facility] Potassium 3.9 3.5 - 5.0 mEq/L 10/23/2020 10:11 [facility] Chloride 101 96 - 110 mEq/L 10/23/2020 10:11 [facility] CO2 Total 26 22 - 32 mEq/L 10/23/2020 10:11 [facility] Glucose 155(H) 70 - 100 mg/dL 10/23/2020 10:11 [facility] BUN 9(L) 10 - 26 mg/dL 10/23/2020 10:11 [facility] Creatinine 0.42(L) 0.52 - 1.04 mg/dL 10/23/2020 10:11 [facility] eGFR 124 >60 mL/min/1.7 3m2 10/23/2020 10:11 [facility] Comment:eGFR calculated mata asif CKD-EPI equation for non- Americans. Multiply eGFR by 1.16 for patients. Total Protein 7.0 6.3 - 8.2 g/dL 10/23/2020 10:11 [facility] Albumin 4.2 3.4 - 4.9 g/dL 10/23/2020 10:11 [facility] Alkaline Phosphatase 159(H) 38 - 126 U/L 10/23/2020 10:11 [facility] AST 38 15 - 46 U/L 10/23/2020 10:11 [facility] ALT 66(H) <35 U/L 10/23/2020 10:11 [facility] Bilirubin, Total <0.5 <1.4 mg/dL 10/24/19 10:11 [facility] Calcium 9.3 8.5 - 10.5 mg/dL 10/23/2020 10:11 [facility] Calculated Calcium 9.1 8.5 - 10.5 mg/dL 10/23/2020 10:11 [facility] Magnesium 1.8 1.7 - 2.8 mg/dL 10/23/2020 10:11 [facility] Blood VENOUS BLOOD / Unknown Venipuncture / Unknown 10/23/2020 9:10 EDT 10/23/2020 9:56 EDT us Teri Henry MD CHEMISTRY & BLOOD GAS ORDERABLES Final Result Performing Organization Address City/State/[place] Co de Phone Number [facility] [address] [place] [address] * (ABNORMAL) COMPLETE BLOOD COUNT AND DIFF, CHEMO (10/16/2020 12:59 EDT) WBC 5.77 4.00 - 12.40 K/cmm 10/16/2020 13:12 [facility] RBC 4.42 3.86 - 5.04 M/cmm 10/16/2020 13:12 [facility] Hemoglobin 12.9 11.6 - 15.2 gm/dL 10/16/2020 13:12 [facility] HCT 37.4 34.9 - 44.4 % 10/16/2020 13:12 [facility] [facility] MCV 85 81 - 98 fl 10/16/2020 13:12 [facility] MCH 29.2 26.7 - 33.3 pg 10/16/2020 13:12 [facility] MCHC 34.5 32.1 - 35.9 gm/dL 10/16/2020 13:12 [facility] RDW-CV 14.8(H) <14.7 % 10/16/2020 13:12 [facility] RDW-SD 45.2 <50.4 fl 10/16/2020 13:12 [facility] PLT 159 141 - 377 K/cmm 10/16/2020 13:12 [facility] MPV 9.7 9.5 - 12.7 fl 10/16/2020 13:12 [facility] % Neutrophils 58.4 % 10/16/2020 13:12 [facility] Absolute Neutrophils 3.37 2.20 - 8.85 K/cmm 10/16/2020 13:12 [facility] Type of Differential: Auto 10/16/2020 13:12 [facility] Blood VENOUS BLOOD / Unknown Venipuncture / Unknown 10/16/2020 12:59 EDT 10/16/2020 13:03 EDT us Teri Henry MD PACKAGES & DNA PROBE ORDERABLES Final Result [facility] [address] [place] [address] * (ABNORMAL) COMPREHENSIVE METABOLIC PANEL (ONCOLOGY USE ONLY-INC MG) (10/16/2020 12:59 EDT) Sodium 136 136 - 145 mEq/L 10/16/2020 13:31 [facility] Potassium 4.0 3.5 - 5.0 mEq/L 10/16/2020 13:31 [facility] Chloride 101 96 - 110 mEq/L 10/16/2020 13:31 [facility] CO2 Total 24 22 - 32 mEq/L 10/16/2020 13:31 [facility] Glucose 230(H) 70 - 100 mg/dL 10/16/2020 13:31 [facility] BUN 11 10 - 26 mg/dL 10/16/2020 13:31 [facility] Creatinine 0.36(L) 0.52 - 1.04 mg/dL 10/16/2020 13:31 [facility] eGFR 131 >60 mL/min/1.7 3m2 10/16/2020 13:31 [facility] Comment:eGFR calculated mata asif CKD-EPI equation for non- Americans. Multiply eGFR by 1.16 for patients. Total Protein 7.0 6.3 - 8.2 g/dL 10/16/2020 13:31 [facility] Albumin 4.2 3.4 - 4.9 g/dL 10/16/2020 13:31 [facility] Alkaline Phosphatase 129(H) 38 - 126 U/L 10/16/2020 13:31 [facility] AST 81(H) 15 - 46 U/L 10/16/2020 13:31 [facility] ALT 126(H) <35 U/L 10/16/2020 13:31 [facility] Bilirubin, Total <0.5 <1.4 mg/dL 10/17/19 13:31 [facility] Calcium 9.2 8.5 - 10.5 mg/dL 10/16/2020 13:31 [facility] Calculated Calcium 9.0 8.5 - 10.5 mg/dL 10/16/2020 13:31 [facility] Magnesium 1.7 1.7 - 2.8 mg/dL 10/16/2020 13:31 [facility] Blood VENOUS BLOOD / Unknown Venipuncture / Unknown 10/16/2020 12:59 EDT 10/16/2020 13:03 EDT us Teri Henry MD CHEMISTRY & BLOOD GAS ORDERABLES Final Result [facility] [address] [place] [address] * (ABNORMAL) COMPLETE BLOOD COUNT AND DIFF, CHEMO (09/25/2020 8:08 EDT) WBC 5.30 4.00 - 12.40 K/cmm 09/25/2020 8:47 [facility] RBC 4.83 3.86 - 5.04 M/cmm 09/25/2020 8:47 [facility] Hemoglobin 14.1 11.6 - 15.2 gm/dL 09/25/2020 8:47 [facility] HCT 40.5 34.9 - 44.4 % 09/25/2020 8:47 [facility] MCV 84 81 - 98 fl 09/25/2020 8:47 [facility] MCH 29.2 26.7 - 33.3 pg 09/25/2020 8:47 [facility] MCHC 34.8 32.1 - 35.9 gm/dL 09/25/2020 8:47 [facility] RDW-CV 14.4 <14.7 % 09/25/2020 8:47 [facility] RDW-SD 43.4 <50.4 fl 09/25/2020 8:47 [facility] PLT 186 141 - 377 K/m 09/25/2020 8:47 [facility] MPV 9.3(L) 9.5 - 12.7 fl 09/25/2020 8:47 [facility] % Neutrophils 53.8 % 09/25/2020 8:47 [facility] Absolute Neutrophils 2.86 2.20 - 8.85 K/cm 09/25/2020 8:47 [facility] Type of Differential: Auto 09/25/2020 8:47 [facility] Blood VENOUS BLOOD / Unknown Venipuncture / Unknown 09/25/2020 8:08 EDT 09/25/2020 8:32 EDT us Teri Henry MD PACKAGES & DNA PROBE ORDERABLES Final Result [facility] [address] [place] [address] * (ABNORMAL) COMPREHENSIVE METABOLIC PANEL (ONCOLOGY USE ONLY-INC MG) (09/25/2020 8:08 EDT) Sodium 139 136 - 145 mEq/L 09/25/2020 8:54 [facility] Potassium 3.9 3.5 - 5.0 mEq/L 09/25/2020 8:54 [facility] Chloride 102 96 - 110 mEq/L 09/25/2020 8:54 [facility] CO2 Total 27 22 - 32 mEq/L 09/25/2020 8:54 [facility] Glucose 165(H) 70 - 100 mg/dL 09/25/2020 8:54 [facility] BUN 16 10 - 26 mg/dL 09/25/2020 8:54 [facility] Creatinine 0.40(L) 0.52 - 1.04 mg/dL 09/25/2020 8:54 [facility] eGFR 126 >60 mL/min/1.7 3m2 09/25/2020 8:54 [facility] Comment:eGFR calculated mata asif CKD-EPI equation for non- Americans. Multiply eGFR by 1.16 for patients. Total Protein 7.0 6.3 - 8.2 g/dL 09/25/2020 8:54 [facility] Albumin 4.2 3.4 - 4.9 g/dL 09/25/2020 8:54 [facility] Alkaline Phosphatase 140(H) 38 - 126 U/L 09/25/2020 8:54 [facility] AST 50(H) 15 - 46 U/L 09/25/2020 8:54 [facility] ALT 88(H) <35 U/L 09/25/2020 8:54 [facility] Bilirubin, Total <0.5 <1.4 mg/dL 09/26/19 8:54 EDT [facility] Calcium 9.1 8.5 - 10.5 mg/dL 09/25/2020 8:54 EDT [facility] Calculated Calcium 8.9 8.5 - 10.5 mg/dL 09/25/2020 8:54 EDT [facility] Magnesium 1.7 1.7 - 2.8 mg/dL 09/25/2020 8:54 EDT [facility] Blood VENOUS BLOOD / Unknown Venipuncture / Unknown 09/25/2020 8:08 EDT 09/25/2020 8:32 EDT Teri Henry MD CHEMISTRY & BLOOD GAS ORDERABLES Final Result [facility] [address] [place] [address] * COMPLETE BLOOD COUNT AND DIFF, CHEMO (09/04/2020 7:49 EDT) WBC 7.75 4.00 - 12.40 K/cmm 09/04/2020 8:30 EDT [facility] RBC 4.96 3.86 - 5.04 M/cmm 09/04/2020 8:30 [facility] Hemoglobin 14.1 11.6 - 15.2 gm/dL 09/04/2020 8:30 T [facility] HCT 42.1 34.9 - 44.4 % 09/04/2020 8:30 T [facility] MCV 85 81 - 98 fl 09/04/2020 8:30 T [facility] MCH 28.4 26.7 - 33.3 pg 09/04/2020 8:30 T [facility] MCHC 33.5 32.1 - 35.9 gm/dL 09/04/2020 8:30 [facility] RDW-CV 13.5 <14.7 % 09/04/2020 8:30 T [facility] RDW-SD 41.6 <50.4 fl 09/04/2020 8:30 EDT [facility] PLT 196 141 - 377 K/cmm 09/04/2020 8:30 [facility] MPV 9.9 9.5 - 12.7 fl 09/04/2020 8:30 [facility] % Neutrophils 62.9 % 09/04/2020 8:30 [facility] Absolute Neutrophils 4.88 2.20 - 8.85 K/cmm 09/04/2020 8:30 [facility] Type of Differential: Auto 09/04/2020 8:30 [facility] Blood VENOUS BLOOD / Unknown Venipuncture / Unknown 09/04/2020 7:49 EDT 09/04/2020 8:03 EDT us Teri Henry MD PACKAGES & DNA PROBE ORDERABLES Final Result Performing Organization Address City/State/RUST Co de Phone Number [facility] [address] [place] [address] * (ABNORMAL) COMPREHENSIVE METABOLIC PANEL (ONCOLOGY USE ONLY-INC MG) (09/04/2020 7:49 EDT) Sodium 139 136 - 145 mEq/L 09/04/2020 8:23 [facility] Potassium 4.0 3.5 - 5.0 mEq/L 09/04/2020 8:23 [facility] Chloride 104 96 - 110 mEq/L 09/04/2020 8:23 [facility] CO2 Total 23 22 - 32 mEq/L 09/04/2020 8:23 [facility] Glucose 165(H) 70 - 100 mg/dL 09/04/2020 8:23 [facility] BUN 12 10 - 26 mg/dL 09/04/2020 8:23 [facility] Creatinine 0.41(L) 0.52 - 1.04 mg/dL 09/04/2020 8:23 [facility] eGFR 126 >60 mL/min/1.7 3m2 09/04/2020 8:23 [facility] Comment:eGFR calculated mata asif CKD-EPI equation for non- Americans. Multiply eGFR by 1.16 for patients. Total Protein 7.2 6.3 - 8.2 g/dL 09/04/2020 8:23 [facility] Albumin 4.2 3.4 - 4.9 g/dL 09/04/2020 8:23 [facility] Alkaline Phosphatase 122 38 - 126 U/L 09/04/2020 8:23 [facility] AST 45 15 - 46 U/L 09/04/2020 8:23 [facility] ALT 85(H) <35 U/L 09/04/2020 8:23 [facility] Bilirubin, Total <0.5 <1.4 mg/dL 09/05/19 8:23 [facility] Calcium 8.8 8.5 - 10.5 mg/dL 09/04/2020 8:23 [facility] Calculated Calcium 8.6 8.5 - 10.5 mg/dL 09/04/2020 8:23 [facility] Magnesium 1.8 1.7 - 2.8 mg/dL 09/04/2020 8:23 [facility] Blood VENOUS BLOOD / Unknown Venipuncture / Unknown 09/04/2020 7:49 EDT 09/04/2020 8:03 EDT Teri Henry MD CHEMISTRY & BLOOD GAS ORDERABLES Final Result [facility] [address] [place] [address] * (ABNORMAL) COMPLETE BLOOD COUNT AND DIFF, CHEMO (08/13/2020 8:16 EDT) WBC 13.23(H) 4.00 - 12.40 K/cmm 08/13/2020 8:42 T [facility] RBC 5.24(H) 3.86 - 5.04 M/cmm 08/13/2020 8:42 [facility] Hemoglobin 15.3(H) 11.6 - 15.2 gm/dL 08/13/2020 8:42 [facility] HCT 45.6(H) 34.9 - 44.4 % 08/13/2020 8:42 [facility] MCV 87 81 - 98 fl 08/13/2020 8:42 [facility] MCH 29.2 26.7 - 33.3 pg 08/13/2020 8:42 [facility] MCHC 33.6 32.1 - 35.9 gm/dL 08/13/2020 8:42 [facility] RDW-CV 13.1 <14.7 % 08/13/2020 8:42 [facility] RDW-SD 41.1 <50.4 fl 08/13/2020 8:42 [facility] PLT 295 141 - 377 K/cmm 08/13/2020 8:42 [facility] MPV 10.0 9.5 - 12.7 fl 08/13/2020 8:42 [facility] % Neutrophils 72.9 % 08/13/2020 8:42 [facility] Absolute Neutrophils 9.64(H) 2.20 - 8.85 K/cmm 08/13/2020 8:42 [facility] Type of Differential: Auto 08/13/2020 8:42 [facility] Blood VENOUS BLOOD / Unknown Venipuncture / Unknown 08/13/2020 8:16 EDT 08/13/2020 8:29 EDT us Teri Henry MD PACKAGES & DNA PROBE ORDERABLES Final Result [facility] [address] [place] [address] * (ABNORMAL) COMPREHENSIVE METABOLIC PANEL (ONCOLOGY USE ONLY-INC MG) (08/13/2020 8:16 EDT) Sodium 138 136 - 145 mEq/L 08/13/2020 8:49 [facility] Potassium 4.4 3.5 - 5.0 mEq/L 08/13/2020 8:49 [facility] Chloride 103 96 - 110 mEq/L 08/13/2020 8:49 [facility] CO2 Total 24 22 - 32 mEq/L 08/13/2020 8:49 [facility] Glucose 171(H) 70 - 100 mg/dL 08/13/2020 8:49 [facility] BUN 12 10 - 26 mg/dL 08/13/2020 8:49 [facility] Creatinine 0.40(L) 0.52 - 1.04 mg/dL 08/13/2020 8:49 [facility] eGFR 127 >60 mL/min/1.7 3m2 08/13/2020 8:49 [facility] Comment:eGFR calculated mata asif CKD-EPI equation for non- Americans. Multiply eGFR by 1.16 for patients. Total Protein 7.4 6.3 - 8.2 g/dL 08/13/2020 8:49 [facility] Albumin 4.3 3.4 - 4.9 g/dL 08/13/2020 8:49 [facility] Alkaline Phosphatase 128(H) 38 - 126 U/L 08/13/2020 8:49 [facility] AST 47(H) 15 - 46 U/L 08/13/2020 8:49 [facility] ALT 86(H) <35 U/L 08/13/2020 8:49 [facility] Bilirubin, Total <0.5 <1.4 mg/dL 08/14/19 8:49 [facility] Calcium 9.4 8.5 - 10.5 mg/dL 08/13/2020 8:49 [facility] Calculated Calcium 9.2 8.5 - 10.5 mg/dL 08/13/2020 8:49 [facility] Magnesium 1.8 1.7 - 2.8 mg/dL 08/13/2020 8:49 EDT [facility] Blood VENOUS BLOOD / Unknown Venipuncture / Unknown 08/13/2020 8:16 EDT 08/13/2020 8:29 EDT us Teri Henry MD CHEMISTRY & BLOOD GAS ORDERABLES Final Result [facility] [address] [place] [address] * EKG 12-LEAD (07/22/2020 9:50 EST) 07/22/2020 9:50 EST Narrative [facility] EKG - 01/26/2021 8:34 EDT ? [facility] ? Test Date: ?2020-07-22 Pat Name: ? AUSTIN ROMAN ? Department: ?? HEM/ONC ? Room: ? Gender: ? Female ? 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 ANTHONY : ?1975 ? Requested By: TERI HENRY MD Order Number: ?Jose CAVAZOS: ?? MIHIR CROOK MD ? Measurements Intervals ?[place] ? Rate: ? 70 ? P: ?49 SD: ? 172 ?QRS: ?35 QRSD: ? 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 Electronically Signed On 01-26-2021 8:34:01 EDT by MIHIR DICKSON. us Teri Henry MD CARDIAC ECG ORDERABLES Final Res ult [facility] EKG * (ABNORMAL) COMPLETE BLOOD COUNT AND DIFF, CHEMO (07/22/2020 7:56 EST) WBC 8.35 4.00 - 12.40 K/cmm 07/22/2020 8:23 [facility] RBC 5.23(H) 3.86 - 5.04 M/cmm 07/22/2020 8:23 [facility] Hemoglobin 14.9 11.6 - 15.2 gm/dL 07/22/2020 8:23 [facility] HCT 45.4(H) 34.9 - 44.4 % 07/22/2020 8:23 [facility] MCV 87 81 - 98 fl 07/22/2020 8:23 [facility] MCH 28.5 26.7 - 33.3 pg 07/22/2020 8:23 [facility] MCHC 32.8 32.1 - 35.9 gm/dL 07/22/2020 8:23 [facility] RDW-CV 12.9 <14.7 % 07/22/2020 8:23 [facility] RDW-SD 40.5 <50.4 fl 07/22/2020 8:23 [facility] PLT 297 141 - 377 K/cmm 07/22/2020 8:23 [facility] MPV 9.9 9.5 - 12.7 fl 07/22/2020 8:23 [facility] % Neutrophils 67.9 % 07/22/2020 8:23 [facility] Absolute Neutrophils 5.67 2.20 - 8.85 K/cmm 07/22/2020 8:23 [facility] Type of Differential: Auto 07/22/2020 8:23 [facility] Blood VENOUS BLOOD / Unknown Venipuncture / Unknown 07/22/2020 7:56 EST 07/22/2020 8:11 EST us Teri Henry MD PACKAGES & DNA PROBE ORDERABLES Final Result [facility] [address] [place] [address] * (ABNORMAL) COMPREHENSIVE METABOLIC PANEL (ONCOLOGY USE ONLY-INC MG) (07/22/2020 7:56 EST) Sodium 140 136 - 145 mEq/L 07/22/2020 8:32 [facility] Potassium 4.4 3.5 - 5.0 mEq/L 07/22/2020 8:32 [facility] Chloride 105 96 - 110 mEq/L 07/22/2020 8:32 [facility] CO2 Total 23 22 - 32 mEq/L 07/22/2020 8:32 [facility] Glucose 132(H) 70 - 100 mg/dL 07/22/2020 8:32 [facility] BUN 12 10 - 26 mg/dL 07/22/2020 8:32 [facility] Creatinine 0.51(L) 0.52 - 1.04 mg/dL 07/22/2020 8:32 [facility] eGFR 117 >60 mL/min/1.7 3m2 07/22/2020 8:32 [facility] Comment:eGFR calculated mata asif CKD-EPI equation for non- Americans. Multiply eGFR by 1.16 for patients. Total Protein 7.2 6.3 - 8.2 g/dL 07/22/2020 8:32 [facility] Albumin 4.3 3.4 - 4.9 g/dL 07/22/2020 8:32 [facility] Alkaline Phosphatase 113 38 - 126 U/L 07/22/2020 8:32 [facility] AST 80(H) 15 - 46 U/L 07/22/2020 8:32 [facility] ALT 114(H) <35 U/L 07/22/2020 8:32 [facility] Bilirubin, Total <0.5 <1.4 mg/dL 07/23/19 8:32 [facility] Calcium 9.4 8.5 - 10.5 mg/dL 07/22/2020 8:32 [facility] Calculated Calcium 9.2 8.5 - 10.5 mg/dL 07/22/2020 8:32 [facility] Magnesium 1.9 1.7 - 2.8 mg/dL 07/22/2020 8:32 [facility] Blood VENOUS BLOOD / Unknown Venipuncture / Unknown 07/22/2020 7:56 EST 07/22/2020 8:11 EST Teri Henry MD CHEMISTRY & BLOOD GAS ORDERABLES Final Result Performing Organization Address City/State/[place] Co de Phone Number [facility] [address] [place] [address] documented in this encounter Visit Diagnoses Diagnosis [...] On Tue07/22/20 at 1300, Administer over 30 MinutesIndications:Malignant neoplasm of upper-inner quadrant of left breast in female, estrogen receptor negative (HCC-CMS) New Bag 07/22/2020 14:00 EST 900 mg I V dexAMETHasone (DECADRON) 12 mg in sodium chloride (NS) 0.9 % 50 mL IVPB 12 mg, intravenous, Administer over 30 Minutes, NOW X1, 1 dose, On Tue07/22/20 at 0915, RoutineIndications:Malignant neoplasm of upper-inner quadrant of left breast in female, estrogen receptor negative (HCC-CMS) New Bag 07/22/2020 9:45 EST 12 mg diphenhydrAMINE (BENADRYL) 50 mg in sodium chloride (NS) 0.9 % 50 mL IVPB 50 mg, intravenous, Administer over 15 Minutes, NOW X1, 1 dose, On Tue07/22/20 at 0915, RoutineIndications:Malignant neoplasm of upper-inner quadrant of left breast in female, estrogen receptor negative (HCC-CMS) New Bag 07/22/2020 10:00 EST 50 mg famotidine (PEPCID) injection 20 mg 20 mg, intravenous, NOW X1, 1 dose, On Tue07/22/20 at 0915, RoutineIndications:Malignant neoplasm of upper-inner quadrant of left breast in female, estrogen receptor negative (HCC-CMS) Given 07/22/2020 9:41 EST 20 mg fosaprepitant (EMEND) 150 mg in sodium chloride (NS) 0.9 % 150 mL infusion 150 mg, intravenous, Administer over 30 Minutes, NOW X1, 1 dose, On Tue07/22/20 at 0915, RoutineIndications:Malignant neoplasm of upper-inner quadrant of left breast in female, estrogen receptor negative (HCC-CMS) New Bag 07/22/2020 10:15 EST 150 mg LORazepam (ATIVAN) tablet 1 mg 1 mg, oral, EVERY 6 HOURS PRN, Starting on Tue07/22/20 at 1010, Until Tue07/25/20 at 0206, nausea / vomiting, RoutineIndications:Malignant neoplasm of upper-inner quadrant of left breast in female, estrogen receptor negative (HCC-CMS) Given 07/22/2020 11:34 EST 1 mg PACLitaxel (TAXOL) 347 mg in sodium chloride (NS) 0.9 % 500 mL chemo infusion 347 mg (rounded from 346.5 mg = 175 mg/m2 ? 1.98 m2 Treatment Plan BSA from Recorded weight), intravenous, NOW X1, 1 dose, On Tue07/22/20 at 1015, Administer over 3 HoursIndications:Malignant neoplasm of upper-inner quadrant of left breast in female, estrogen receptor negative (HCC-CMS) New Bag 07/22/2020 10:50 EST 347 mg palonosetron (ALOXI) injection 0.25 mg 0.25 mg, intravenous, NOW X1, 1 dose, On Tue07/22/20 at 0915, RoutineIndications:Malignant neoplasm of upper-inner quadrant of left breast in female, estrogen receptor negative (HCC-CMS) Given 07/22/2020 9:40 EST 0.25 mg sodium chloride 0.9 % (NS) infusion at 100 mL/hr, 250 mL, intravenous, CONTINUOUS, Starting on Tue07/22/20 at 0915, Until Tue07/23/20 at 0929, RoutineIndications:Malignant neoplasm of upper-inner quadrant of left breast in female, estrogen receptor negative (HCC-CMS) New Bag 07/22/2020 9:30 EST 250 mL [...] 07/22 documented in this encounter Care Teams Community Engagement Manager Relationship Specialty Start Date End Date Batsheva Lira FNP [id number] [phone] PCP - General 02/19/20 07/21/22 documented as of this encounter
--- OUTSIDE RECORDS SUMMARY | 2024-05-04 01:33 | XMS_ITS | Encounter Summary ---
Author Organization [facility] Address [address] [place] [address] Care Team Providers Care Newspaper Copy Editor Name Role Phone Batsheva Lira JOHN Primary Care Provider [phone] Reason for Visit * Reason Onset Date Comments Social Work 07/18/2020 financial Encounter Details Date Type Department Care Team (Late st Contact Info) Description 07/18/2020 Telephone [facility] Hematology & Oncology - [facility] [address], [place] [id number] Veronique Dye Social Work (financial) Social History [...] PN [facility] help with [facility] and [employer] to help pay towards her household bills. Pt is concerned about finances. PN and her dialysis social worker will work with her to help with any resources that are available to her. documented in this encounter Plan of Treatment Upcoming Encounters Date Type Department Care Team (Late st Contact Info) Description 02/28/2025 13:00 EDT Office Visit [facility] Surgical Oncology - [address] [address] Maeve Morales, DO [address] [place] [address], [address] [place] [phone] documented as of this encounter Visit Diagnoses Not on filedocumented in this encounter Care Teams Newspaper Copy Editor Relationship Specialty Start Date End Date Batsheva Lira FNP [address] [place] [phone] PCP - General 02/19/20 07/21/22 documented as of this encounter
--- OUTSIDE RECORDS SUMMARY | 2024-05-04 01:33 | XMS_ITS | Encounter Summary ---
Author Organization [facility] Address [address] [place] [address] Care Team Providers Care Catalyst Impregnator Name Role Phone Batsheva Lira JOHN Primary Care Provider [phone] Reason for Visit * Reason Onset Date Comments Coordination Of Care 07/15/2020 Encounter Details Date Type Department Care Team (Late st Contact Info) Description 07/15/2020 Telephone [facility] Cancer [facility] Hematology & Oncology - [facility] [address] [place] [address] Lolly Antunez, RN Coordination Of Care Social [...] Visit [facility] Surgical Oncology - [address] [id number] Maeve Morales, DO [address] [facility], [address] [place] [phone] documented as of this encounter Visit Diagnoses Not on filedocumented in this encounter Care Teams Catalyst Impregnator Relationship Specialty Start Date End Date Batsheva Lira FNP [address] [phone] PCP - General 02/19/20 07/21/22 documented as of this encounter
--- OUTSIDE RECORDS SUMMARY | 2024-05-04 01:33 | XMS_ITS | Encounter Summary ---
Author Organization [facility] Address [address] [place] [address] Care Team Providers Care Silver Designer Name Role Phone Batsheva Lira JOHN Primary Care Provider [phone] Encounter Details Date Type Department Care Team [...] Description 02/28/2025 13:00 EDT Office Visit [facility] Surgical Oncology - [address] [address] Maeve Morales, [address], [address] 2 [place] [phone] documented as of this encounter Visit Diagnoses Not on filedocumented in this encounter Care Teams Silver Designer Relationship Specialty Start Date End Date Batsheva Lira FNP [address] [phone] PCP - General 02/19/20 07/21/22 documented as of this encounter
--- OUTSIDE RECORDS SUMMARY | 2024-05-04 01:33 | XMS_ITS | Encounter Summary ---
Author Organization [facility] Address [address] [place] [address] Care Team Providers Care Embedded Firmware Engineer Name Role Phone Batsheva Lira JOHN Primary Care Provider Pam Germain MD Unavailable [phone] Janay Duran GEAR CUTTER Primary Care Provider Inez Corado DO Primary Care Provid er Reason for Visit * Reason Onset Date Comments Breast Cancer 07/15/2020 Encounter Details Date Type Department Care Team (Late st Contact Info) Description 07/15/2020 Orders Only [facility] Surgical Oncology - [address] [id number] Maeve Morales, DO 111 [facility], Level 2 [place] [address] Malignant neoplasm of female breast, [...] Visit [facility] Surgical Oncology - [address] [address] Maeve Morales DO [address] [phone] documented as of this encounter Visit Diagnoses Diagnosis Malignant neoplasm of female breast, unspecified estrogen receptor status, unspecified laterality, unspecified site of breast ([facility])- Primary documented in this encounter Care Teams Embedded Firmware Engineer Relationship Specialty Start Date End Date Batsheva Lira FNP [address] [phone] PCP - General 02/19/20 07/21/22 Janay Duran APRN [address] [place] [phone] PCP - General Family Medicine - Primary Care 07/22/22 02/12/24 Inez Corado DO [address] [place] [phone] PCP - General Family Medicine - Primary Care 02/13/24 Pam Germain MD 111 [facility], Level 2 [place] [address] Medical Oncology 03/22/22 documented as of this encounter
--- OUTSIDE RECORDS SUMMARY | 2024-05-04 01:33 | XMS_ITS | Encounter Summary ---
Author Organization [facility] Address [address] [place] [address] Care Team Providers Care General Practitioner Name Role Phone Batsheva Lira JOHN Primary Care Provider [phone] Encounter Details Date Type Department Care Team (Late st Contact Info) Description 07/15/2020 Orders Only [facility] Surgical Oncology - Main [address] [address] Kenia Cline, RADHA Malignant neoplasm of left [...] Visit [facility] Surgical Oncology - [address] [address] Maeve Morales, [address], [address] 2 [place] [address] documented as of this encounter Results * (ABNORMAL) COMPLETE BLOOD COUNT AND DIFFERENTIAL (07/15/2020 12:53 EST) WBC 8.93 4.00 - 12.40 K/cmm 07/15/2020 13:28 [facility] RBC 5.33(H) 3.86 - 5.04 M/cmm 07/15/2020 13:28 [facility] Hemoglobin 15.4(H) 11.6 - 15.2 gm/dL 07/15/2020 13:28 [facility] HCT 46.7(H) 34.9 - 44.4 % 07/15/2020 13:28 [facility] MCV 88 81 - 98 fl 07/15/2020 13:28 [facility] MCH 28.9 26.7 - 33.3 pg 07/15/2020 13:28 [facility] MCHC 33.0 32.1 - 35.9 gm/dL 07/15/2020 13:28 [facility] RDW-CV 12.6 <14.7 % 07/15/2020 13:28 [facility] RDW-SD 39.9 <50.4 fl 07/15/2020 13:28 [facility] PLT 322 141 - 377 K/cmm 07/15/2020 13:28 [facility] MPV 10.3 9.5 - 12.7 fl 07/15/2020 13:28 [facility] % Neutrophils 65.2 % 07/15/2020 13:28 [facility] % Lymphocytes 23.4 % 07/15/2020 13:28 [facility] % Monocytes 8.2 % 07/15/2020 13:28 [facility] % Eosinophils 1.9 % 07/15/2020 13:28 [facility] % Basophils 1.0 % 07/15/2020 13:28 [facility] % Immature Grans 0.3 % 07/16/19 13:28 [facility] Absolute Neutrophils 5.82 2.20 - 8.85 K/cmm 07/15/2020 13:28 [facility] Absolute Lymphocytes 2.09 1.09 - 3.30 K/cmm 07/15/2020 13:28 [facility] Absolute Monocytes 0.73 0.10 - 0.80 K/cmm 07/15/2020 13:28 [facility] Absolute Eosinophils 0.17 0.03 - 0.61 K/cmm 07/15/2020 13:28 [facility] ABS Basophils 0.09 0.01 - 0.11 K/cmm 07/15/2020 13:28 [facility] Absolute Immature Grans 0.03 0.00 - 0.06 K/cmm 07/15/2020 13:28 [facility] Type of Differential: Auto 07/15/2020 13:28 [facility] Blood VENOUS BLOOD / Unknown Venipuncture / Unknown 07/15/2020 12:53 EST 07/15/2020 13:18 EST us Queenie Conde MD PACKAGES & DNA PROBE ORDERABLES Final Result [facility] [address] [place] [address] * (ABNORMAL) COMPREHENSIVE METABOLIC PANEL (CMP) (07/15/2020 12:53 EST) Sodium 140 136 - 145 mEq/L 07/15/2020 13:48 [facility] Potassium 4.2 3.5 - 5.0 mEq/L 07/15/2020 13:48 [facility] Chloride 102 96 - 110 mEq/L 07/15/2020 13:48 [facility] CO2 Total 24 22 - 32 mEq/L 07/15/2020 13:48 [facility] Glucose 102(H) 70 - 100 mg/dL 07/15/2020 13:48 [facility] BUN 9(L) 10 - 26 mg/dL 07/15/2020 13:48 [facility] Creatinine 0.48(L) 0.52 - 1.04 mg/dL 07/15/2020 13:48 [facility] eGFR 120 >60 mL/min/1.7 3m2 07/15/2020 13:48 [facility] Comment:eGFR calculated mata asif CKD-EPI equation for non- Americans. Multiply eGFR by 1.16 for patients. Total Protein 7.5 6.3 - 8.2 g/dL 07/15/2020 13:48 [facility] Albumin 4.5 3.4 - 4.9 g/dL 07/15/2020 13:48 [facility] Alkaline Phosphatase 124 38 - 126 U/L 07/15/2020 13:48 [facility] AST 77(H) 15 - 46 U/L 07/15/2020 13:48 [facility] ALT 82(H) <35 U/L 07/15/2020 13:48 [facility] Bilirubin, Total <0.5 <1.4 mg/dL 07/16/19 13:48 [facility] Calcium 9.4 8.5 - 10.5 mg/dL 07/15/2020 13:48 [facility] Calculated Calcium 9.0 8.5 - 10.5 mg/dL 07/15/2020 13:48 EST [facility] Blood VENOUS BLOOD / Unknown Venipuncture / Unknown 07/15/2020 12:53 EST 07/15/2020 13:21 EST us Queenie Conde MD CHEMISTRY & BLOOD GAS ORDERABLES Final Result [facility] [address] [place] [address] documented in this encounter Visit Diagnoses Diagnosis Malignant neoplasm of left breast in female, estrogen receptor negative, unspecified site of breast (HCC-CMS)- Primary documented in this encounter Care Teams General Practitioner Relationship Specialty Start Date End Date Batsheva Lira FNP [address] [address] PCP - General 02/19/20 07/21/22 documented as of this encounter
--- OUTSIDE RECORDS SUMMARY | 2024-05-04 01:33 | XMS_ITS | Encounter Summary ---
Author Organization [facility] Address [address] [place] [address] Care Team Providers Care Brass Sorter Name Role Phone Batsheva Lira JOHN Primary Care Provider [phone] Encounter Details Date Type Department Care Team (Late st Contact Info) Description 07/16/2020 Orders Only [facility] Hematology & Oncology - [address] [address] Lolly Antunez, RADHA Malignant neoplasm of upper-inner [...] Office Visit [facility] Surgical Oncology - [address] [address] Maeve Morales, [address], [address] [place] [phone] documented as of this encounter Visit Diagnoses Diagnosis Malignant neoplasm of upper-inner quadrant of left breast in female, estrogen receptor negative (HCC-CMS)- Primary documented in this encounter Orders Appointment Requests Count Last Ordered Date Fi rst Ordered Date ONCBCN INFUSION APPOINTMENT REQUEST 3 09/0407/22/2020 [facility]N CLINIC APPOINTMENT REQUEST 3 09/02/ 021 07/22/2020 documented in this encounter Care Teams Brass Sorter Relationship Specialty Start Date End Date Batsheva Lira FNP [address] [address] PCP - General 02/19/20 07/21/22 documented as of this encounter
--- OUTSIDE RECORDS SUMMARY | 2024-05-04 01:33 | XMS_ITS | Encounter Summary ---
Author Organization [facility] Address [address] [place] [address] Care Team Providers Care Breadman Name Role Phone Batsheva Lira JOHN Primary Care Provider [phone] Reason for Referral * Radiology Services (Routine) - Closed Specialty Diagnoses / Procedures Referred By Contac t Referred To Contact Diagnoses Malignant neoplasm of left breast in female, estrogen receptor negative, unspecified site of breast ([facility]) Procedures CT ABDOMEN PELVIS W CONTRAST Vargas Marvin MD Phone: tel: fax: Referral ID Status Reason Start Date Expiration Date Visits Re quested Visits Authorized [id number] Closed 07/15/2020 1 1 * Radiology Services (Routine) - Closed Specialty Diagnoses / Procedures Referred By Contac t Referred To Contact Diagnoses Malignant neoplasm of left breast in female, estrogen receptor negative, unspecified site of breast ([facility]) Procedures CT CHEST W CONTRAST Vargas Marvin MD Phone: tel: fax: Referral ID Status Reason Start Date Expiration Date Visits Re quested Visits Authorized [id number] Closed 07/15/2020 1 1 Reason for Visit * Radiology Services (Routine) - Closed Specialty Diagnoses / Procedures Referred By Contac t Referred To Contact Diagnoses Malignant neoplasm of left breast in female, estrogen receptor negative, unspecified site of breast ([facility]) Procedures CT ABDOMEN PELVIS W CONTRAST Vargas Marvin MD Phone: tel: fax: Referral ID Status Reason Start Date Expiration Date Visits Re quested Visits Authorized [id number] Closed 07/15/2020 1 1 Encounter Details Date Type Department Care Team (Latest Contact Info) Description 07/18/2020 9:26 EST - 07/18/2020 23:59 EST Hospital Encounter [facility] Radiology CT - Main [address] [address] Malignant neoplasm of left breast in female, estrogen receptor negative, unspecified site of breast ([facility]) Discharge Disposition: Home or Self Care [...] 5 mg by mouth daily. 11/28/19 21 documented as of this encounter Discharge Disposition Disposition Code Departure Means Destination Home or Self Care documented in this encounter Plan of Treatment Upcoming Encounters Date Type Department Care Team (Late st Contact Info) Description 02/28/2025 13:00 EDT Office Visit [facility] Surgical Oncology - [address] [address] Maeve Morales, DO [address] [place] [address], [address] [place] [phone] documented as of this encounter Procedures Procedure [...] are present in the lower lumbar spine. Implementation Director: No additional findings. Procedure Note Deni Mercado [...] are present in the lower lumbar spine. Implementation Director: No additional findings. IMPRESSION 1. No evidence of metastatic disease or lymphadenopathy in the abdomen orpelvis. 2. 4 mm nonobstructing left renal calculus. 3. Hepatic steatosis. I have personally reviewed the images and the above interpretation andagree with the findings. us Vargas Marvin MD IMG CT ORDERABLES Final Resu lt * CT CHEST W CONTRAST (07/18/2020 10:03 [...] chest Vargas Marvin MD IMG CT ORDERABLES Edited Res ult - Final documented in this encounter Visit Diagnoses Diagnosis [...] 07/18/2020 documented in this encounter Care Teams Breadman Relationship Specialty Start Date End Date Batsheva Lira FNP [facility] [address] [phone] PCP - General 02/19/20 07/21/22 documented as of this encounter
--- OUTSIDE RECORDS SUMMARY | 2024-05-04 01:33 | XMS_ITS | Encounter Summary ---
Author Organization [facility] Address [address] [place] [address] Care Team Providers Care Confectionery Cooker Name Role Phone Batsheva Lira JOHN Primary Care Provider [phone] Encounter Details Date Type Department Care Team (Late st Contact Info) Description 07/15/2020 Orders Only [facility] Hematology & Oncology - [address] [address] Lolly Antunez, RADHA Encounter for nonprocreative genetic [...] [facility] - [address] [address] Maeve Morales, DO 111 [facility], [address] [place] [phone] documented as of this encounter Visit Diagnoses Diagnosis Encounter for nonprocreative genetic counseling- Primary Genetic testing Other investigation and testing for procreative management Malignant neoplasm of left breast in female, estrogen receptor negative, unspecified site of breast (HCC-CMS) documented in this encounter Care Teams Confectionery Cooker Relationship Specialty Start Date End Date Batsheva Lira FNP [address] [phone] PCP - General 02/19/20 07/21/22 documented as of this encounter
--- OUTSIDE RECORDS SUMMARY | 2024-05-04 01:33 | XMS_ITS | Encounter Summary ---
Author Organization [facility] Address [address] [place] [address] Care Team Providers Care Grounds Maintenance Manager Name Role Phone Batsheva Lira JOHN Primary Care Provider [phone] Reason for Visit * Reason Comments New Patient Visit Encounter Details Date Type Department Care Team (Late st Contact Info) Description 07/15/2020 11:30 EST Multidisciplinary [facility] Surgical Oncology - [address] [phone] Maeve Morales, DO 111 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 This [...] of breast in female, estrogen receptor negative ([facility]) Past Medical History: Diagnosis Date ??? Exercise [...] I will follow with her at the custodial point and again at the end. We [...] look like. I willsee her at the custodial point of her chemotherapeutic intervention. Plan: (C50.412, [...] Info) Description 02/28/2025 13:00 EDT Office Visit [facility] Surgical Oncology - [address] [address] Maeve Morales DO [address] [place] [address], [address] [place] [address] documented as of this encounter Visit Diagnoses Diagnosis Malignant neoplasm of upper-outer quadrant of left breast in female, estrogen receptor negative (HCC-CMS)- Primary documented in this encounter Historical Medications * This list may reflect changes made after this encounter. INTRAUTERINE DEVICE, IUD, INTRAUTERINE by intrauterine route. 2 oxybutynin (DITROPAN) 5 mg tablet Take 5 mg by mouth daily. 1 added in this encounter Care Teams Grounds Maintenance Manager Relationship Specialty Start Date End Date Batsheva Lira FNP [address] [phone] PCP - General 02/19/20 07/21/22 documented as of this encounter
--- OUTSIDE RECORDS SUMMARY | 2024-05-04 01:33 | XMS_ITS | Encounter Summary ---
Author Organization [facility] Address [address] [place] [address] Care Team Providers Care Concrete Products Dispatcher Name Role Phone Batsheva Lira JOHN Primary Care Provider [phone] Reason for Visit * Reason Onset Date Comments Appointment Related 07/16/2020 Encounter Details Date Type Department Care Team (Late st Contact Info) Description 07/16/2020 Telephone [facility] Hematology & Oncology - [facility] [address] [place] [address] [place] [address] [address] Appointment Related Social History Tobacco [...] Office Visit [facility] Surgical Oncology - [address] [address] Maeve Morales, DO 111 [facility], [address] [place] [phone] documented as of this encounter Visit Diagnoses Not on filedocumented in this encounter Care Teams Concrete Products Dispatcher Relationship Specialty Start Date End Date Batsheva Lira FNP [address] [address] PCP - General 02/19/20 07/21/22 documented as of this encounter
--- OUTSIDE RECORDS SUMMARY | 2024-05-04 01:33 | XMS_ITS | Encounter Summary ---
Author Organization [facility] Address [address] [place] [address] Care Team Providers Care Clinic Mgr Name Role Phone Batsheva Lira JOHN Primary Care Provider [phone] Reason for Referral * Radiology Services (Routine) - Closed Specialty Diagnoses / Procedures Referred By Jen t Referred To Contact Diagnoses Malignant neoplasm of left breast in female, estrogen receptor negative, unspecified site of breast ([facility]) Procedures US BREAST COMPLETE RIGHT US BREAST DIAGNOSTIC Maeve Morales DO Phone: tel: fax: Referral ID Status Reason Start Date Expiration Date Visits Re quested Visits Authorized [id number] Closed 07/15/2020 1 1 Reason for Visit * Radiology Services (Routine) - Closed Specialty Diagnoses / Procedures Referred By Jen gonzáles Referred To Contact Diagnoses Malignant neoplasm of left breast in female, estrogen receptor negative, unspecified site of breast ([facility]) Procedures US BREAST COMPLETE RIGHT US BREAST DIAGNOSTIC Maeve Morales DO Phone: tel: fax: Referral ID Status Reason Start Date Expiration Date Visits Re quested Visits Authorized [id number] Closed 07/15/2020 1 1 Encounter Details Date Type Department Care Team (Latest Contact Info) Description 07/16/2020 10:56 EST - 07/16/2020 23:59 EST Hospital Encounter [facility] Breast Imaging Ultrasound - [address] [place] [address] [address] Malignant neoplasm of left breast in female, estrogen receptor negative, unspecified site of breast ([facility]) Discharge Disposition: Home or Self [...] [facility] Surgical Oncology - [address] [place] [address] [phone] Maeve Morales, DO 111 [facility], [facility], Level 2 [place] [phone] documented as of this encounter Procedures Procedure Name Priority Date/Time Associated Diagnosis Comments US BREAST COMPLETE RIGHT Routine 07/16/2020 11:27 EST Malignant neoplasm of left breast in female, estrogen receptor negative, unspecified site of breast ([facility]) documented in this encounter Results * US [...] were discussed with the patient by the professional builder at the time of the exam. The [...] abnormality in no suspicious mass or adenopathy. us Maeve Morales DO IMG US ORDERABLES Final Res ult documented in this encounter Visit Diagnoses Diagnosis Malignant neoplasm of left breast in female, estrogen receptor negative, unspecified site of breast (HCC-CMS) documented in this encounter Care Teams Clinic Mgr Relationship Specialty Start Date End Date Batsheva Lira FNP [address] [phone] PCP - General 02/19/20 07/21/22 documented as of this encounter
--- OUTSIDE RECORDS SUMMARY | 2024-05-04 01:33 | XMS_ITS | Encounter Summary ---
Author Organization [facility] Address [address] [place] [address] Care Team Providers Care Drivers License Examiner Name Role Phone Batsheva Lira JOHN Primary Care Provider [phone] Encounter Details Date Type Department Care Team (Latest Contact Info) Description 07/15/2020 Documentation Visit [facility] Surgical Oncology - Main [place] [address] [place] [address] Kenia Cline, RADHA Malignant neoplasm of left [...] Nurse Navigator business card with contact information, [employer] pamphlet and cancer center booklet [...] provider Reviewed port details with patient Veronique Dye met with patient and will connect with [...] [facility] Surgical Oncology - [address] [phone] Maeve Morales, [address] [place] [address], [facility], [address] 2 [place] [phone] documented as of this encounter Visit Diagnoses Diagnosis Malignant neoplasm of left breast in female, estrogen receptor negative, unspecified site of breast (HCC-CMS)- Primary documented in this encounter Care Teams Drivers License Examiner Relationship Specialty Start Date End Date Batsheva Lira FNP [address] [phone] PCP - General 02/19/20 07/21/22 documented as of this encounter
--- OUTSIDE RECORDS SUMMARY | 2024-05-04 01:33 | XMS_ITS | Encounter Summary ---
Author Organization [facility] Address [address] [place] [address] Care Team Providers Care Remote Broadcast Engineer Name Role Phone Batsheva Lira JOHN Primary Care Provider [phone] Encounter Details Date Type Department Care Team (Late st Contact Info) Description 07/15/2020 Orders Only [facility] Hematology & Oncology - [address] [address] Veronique Dye Malignant neoplasm of female breast, [...] Visit [facility] Surgical Oncology - [address] [address] Maeve Morales, DO [address] [place] [address], [address] [place] [address] documented as of this encounter Visit Diagnoses Diagnosis Malignant neoplasm of female breast, unspecified estrogen receptor status, unspecified laterality, unspecified site of breast ([facility])- Primary documented in this encounter Care Teams Remote Broadcast Engineer Relationship Specialty Start Date End Date Batsheva Lira FNP [address] [phone] PCP - General 02/19/20 07/21/22 documented as of this encounter
--- OUTSIDE RECORDS SUMMARY | 2024-05-04 01:33 | XMS_ITS | Encounter Summary ---
Author Organization [facility] Address [address] [place] [address] Care Team Providers Care Otolaryngology Rep Name Role Phone Batsheva Lira JOHN Primary Care Provider [phone] Encounter Details Date Type Department Care Team [...] Medical [facility] Surgical Oncology - [address] [address] Maeve Morales, [address], [address] [place] [phone] documented as of this encounter Visit Diagnoses Not on filedocumented in this encounter Care Teams Otolaryngology Rep Relationship Specialty Start Date End Date Batsheva Lira FNP [address] [phone] PCP - General 02/19/20 07/21/22 documented as of this encounter
--- OUTSIDE RECORDS SUMMARY | 2024-05-04 01:33 | XMS_ITS | Encounter Summary ---
Author Organization [facility] Address [address] [place] [address] Care Team Providers Care Shirt Folder Name Role Phone Batsheva Lira JOHN Primary Care Provider [phone] Encounter Details Date Type Department Care Team [...] 02/28/2025 13:00 EDT Office Visit [facility] Surgical Oncology - [address] [address]99[address] Maeve Morales, [address], [address] [place] [phone] documented as of this encounter Visit Diagnoses Not on filedocumented in this encounter Care Teams Shirt Folder Relationship Specialty Start Date End Date Batsheva Lira FNP [address] [address] PCP - General 02/19/20 07/21/22 documented as of this encounter
--- OUTSIDE RECORDS SUMMARY | 2024-05-04 01:33 | XMS_ITS | Encounter Summary ---
Author Organization [facility] Address [address] [place] [address] Care Team Providers Care Sales Associate Cashier Name Role Phone Batsheva Lira JHON Primary Care Provider [phone] Reason for Visit * Reason Onset Date Comments Other 07/17/2020 Encounter Details Date Type Department Care Team (Late st Contact Info) Description 07/17/2020 Telephone [facility] Cancer Center Hematology & Oncology - [facility] [address] [place], [place] [id number] Ene Garrett CCLS Other Social History Tobacco [...] applications on Austin's behalf to Michelle Monteiro ([employer], Urgent Child Needs Fund -- pending acceptance). Austin has my email and knows she can reach out for support as needed. Ene Garrett MS, CCLS Pager [phone] documented in this encounter Plan of Treatment Upcoming Encounters Date Type Department Care Team (Late st Contact Info) Description 02/28/2025 13:00 EDT Office Visit [facility] Surgical Oncology - [address] [id number] Maeve Morales, DO [address] [facility], [facility], Level 2 [place] [phone] documented as of this encounter Visit Diagnoses Not on filedocumented in this encounter Care Teams Sales Associate Cashier Relationship Specialty Start Date End Date Batsheva Lira FNP [address] [phone] PCP - General 02/19/20 07/21/22 documented as of this encounter
--- OUTSIDE RECORDS SUMMARY | 2024-05-04 01:33 | XMS_ITS | Encounter Summary ---
Author Organization [facility] Address [address] [place] [address] Care Team Providers Care Soda Dialyzer Name Role Phone Batsheva Lira JOHN Primary Care Provider [phone] Reason for Referral * Radiology Services (Routine) - Closed Specialty Diagnoses / Procedures Referred By Jen gonzáles Referred To Contact Diagnoses Malignant neoplasm of left breast in female, estrogen receptor negative, unspecified site of breast ([facility]) Procedures US BREAST COMPLETE RIGHT US BREAST DIAGNOSTIC Maeve Morales DO Phone: tel: fax: Referral ID Status Reason Start Date Expiration Date Visits Re quested Visits Authorized [id number] Closed 07/15/2020 1 1 Encounter Details Date Type Department Care Team (Late st Contact Info) Description 07/15/2020 Orders Only [facility] Surgical Oncology - Main [place] [address] [place], [place] [phone] Kenia Cline RN Malignant neoplasm of left breast in female, estrogen receptor negative, unspecified site of breast ([facility]) (Primary Dx) Social History Tobacco Use Types [...] [facility] - [address] [address] Maeve Morales, DO [address] [place] [address], Level 2 [place] [phone] documented as of this encounter Results * [...] were discussed with the patient by the dental internship at the time of the exam. The [...] (HCC-CMS) documented in this encounter Care Teams Soda Dialyzer Relationship Specialty Start Date End Date Batsheva Lira FNP [address] [address] PCP - General 02/19/20 07/21/22 documented as of this encounter
--- OUTSIDE RECORDS SUMMARY | 2024-05-04 01:33 | XMS_ITS | Encounter Summary ---
Author Organization [facility] Address [address] [place] [address] Care Team Providers Care Hydrogenation Operator Name Role Phone Batsheva Lira JOHN Primary Care Provider [phone] Encounter Details Date Type Department Care Team (Late st Contact Info) Description 07/15/2020 Orders Only [facility] Radiology - Main [place] [address] [place] [address] Hernán Pantoja MD [facility] [address] [place] [phone] Social History Tobacco Use Types Packs/Day [...] Office Visit [facility] Surgical Oncology - [address] [address] Maeve Morales, DO [address] [place] [address], [address] [place] [phone] documented as of this encounter Visit Diagnoses Not on filedocumented in this encounter Care Teams Hydrogenation Operator Relationship Specialty Start Date End Date Batsheva Lira FNP [address] [phone] PCP - General 02/19/20 07/21/22 documented as of this encounter
--- OUTSIDE RECORDS SUMMARY | 2024-05-04 01:33 | XMS_ITS | Encounter Summary ---
Author Organization [facility] Address [address] [place] [address] Care Team Providers Care Manager House Name Role Phone Batsheva Lira JOHN Primary Care Provider [phone] Reason for Visit * Radiology Services (Routine) - Closed Specialty Diagnoses / Procedures Referred By Jen gonzáles Referred To Contact Nuclear Medicine Diagnoses Malignant neoplasm of left breast in female, estrogen receptor negative, unspecified site of breast (HCC-CMS) Procedures NM BONE WHOLE BODY Vargas Marvin MD Phone: tel: fax: Referral ID Status Reason Start Date Expiration Date Visits Re quested Visits Authorized [id number] Closed 07/15/2020 1 1 Encounter Details Date Type Department Care Team (Latest Contact Info) Description 07/18/2020 9:24 EST - 07/18/2020 9:25 [facility] Hospital Encounter [facility] Radiology Nuclear Medicine and PET - [address] [address] Discharge Disposition: Home or Self Care [...] Info) Description 02/28/2025 13:00 EDT Office Visit [facility] Surgical Oncology - [address] [address] Maeve Morales, DO 111 [facility], [facility], [address] [place] [phone] documented as of this encounter Procedures Procedure Name Priority Date/Time Associated Diagnosis Comments NM BONE WHOLE BODY Routine 07/18/2020 13 :17 EST Malignant neoplasm of left breast in female, estrogen receptor negative, unspecified site of breast ([facility]) documented in this encounter Results * NM [...] with the findings. us Vargas Marvin MD [facility] NM ORDERABLES Final Resu lt documented in this encounter Visit Diagnoses Not on filedocumented in this encounter Care Teams Manager House Relationship Specialty Start Date End Date Batsheva Lira FNP [address] [phone] PCP - General 02/19/20 07/21/22 documented as of this encounter
--- OUTSIDE RECORDS SUMMARY | 2024-05-04 01:33 | XMS_ITS | Encounter Summary ---
Author Organization [facility] Address [address] [place] [address] Care Team Providers Care Waterworks Supervisor Name Role Phone Batsheva Lira JOHN Primary Care Provider [phone] Encounter Details Date Type Department Care Team (Late st Contact Info) Description 07/15/2020 Documentation Visit [facility] Cancer Center Hematology & Oncology - [facility] [address] [place] [address] Veronique Dye Social History Tobacco Use Types [...] Progress Notes * Veronique Dye - 07/15/2020 4899 EST PN met with pt today during Breast M[facility] and introduced my role and services. 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 She's and lives with her 9 y.o daughter Lan in [place]. She has two other children (ages 21 & 20) who live in [place] and all of pt's family live in [place]. Pt's treatment will involve neoadjuvant chemotherapy, surgery [...] social security disability and PN explained that [facility] eligibility guidelines are forlate stage cancers (stage [...] and family, however they are all in [place] PN made pt aware of our psychosocial [...] Info) Description 02/28/2025 13:00 EDT Office Visit [facility] Surgical Oncology - [address] [phone] Maeve Morales, [address], [address] [place] [phone] documented as of this encounter Visit Diagnoses Not on filedocumented in this encounter Care Teams Waterworks Supervisor Relationship Specialty Start Date End Date Batsheva Lira FNP [address] [phone] PCP - General 02/19/20 07/21/22 documented as of this encounter
--- OUTSIDE RECORDS SUMMARY | 2024-05-04 01:33 | XMS_ITS | Encounter Summary ---
Author Organization [facility] Address [address] [place] [address] Care Team Providers Care Special Education Associate Name Role Phone Batsheva Lira JOHN Primary Care Provider [phone] Reason for Visit * Reason Onset Date Comments Follow-up 07/17/2020 Encounter Details Date Type Department Care Team (Late st Contact Info) Description 07/17/2020 Telephone [facility] Surgical Oncology - Main [place] [address] [place], [place] [phone] Kenia Cline, RADHA Follow-up Social History Tobacco [...] is completed, scheduled for 07/18. Patient aware telegraphic typewriter mechanic to call Tuesday to review CT and bone scan. documented in this encounter Plan of Treatment Upcoming Encounters Date Type Department Care Team (Late st Contact Info) Description 02/28/2025 13:00 EDT Office Visit [facility] Surgical Oncology - [address] [address] Maeve Morales, DO 111 [facility], [facility], Level [address] [place] [phone] documented as of this encounter Visit Diagnoses Not on filedocumented in this encounter Care Teams Special Education Associate Relationship Specialty Start Date End Date Batsheva Lira FNP [address] [phone] PCP - General 02/19/20 07/21/22 documented as of this encounter
--- OUTSIDE RECORDS SUMMARY | 2024-05-04 01:33 | XMS_ITS | Encounter Summary ---
Author Organization [facility] Address [address] [place] [address] Care Team Providers Care Stereo Equipment Installer Name Role Phone Batsheva Lira JOHN Primary Care Provider [phone] Encounter Details Date Type Department Care Team (Late st Contact Info) Description 07/15/2020 12:30 EST Phlebotomy Only [facility] ED Center 2 Phlebotomy [address] [place] [address] Whiskey Filterer, Acc Phlebotomy Health examination in population survey [...] Office Visit [facility] Surgical Oncology - [address] [phone] Maeve Morales, DO [address] [place] [address], Level [address] [place] [phone] documented as of this encounter Procedures Procedure [...] MD LAB INFO SERVICE AND SUPPORT & P ERIC RESULT Final Result * (ABNORMAL) COMPLETE BLOOD COUNT AND DIFFERENTIAL (07/15/2020 12:53 EST) WBC 8.93 4.00 - 12.40 K/cmm 07/15/2020 13:28 [facility] RBC 5.33(H) 3.86 - 5.04 M/cmm 07/15/2020 13:28 [facility] Hemoglobin 15.4(H) 11.6 - 15.2 gm/dL 07/15/2020 13:28 [facility] HCT 46.7(H) 34.9 - 44.4 % 07/15/2020 13:28 [facility] MCV 88 81 - 98 fl 07/15/2020 13:28 [facility] MCH 28.9 26.7 - 33.3 pg 07/15/2020 13:28 [facility] MCHC 33.0 32.1 - 35.9 gm/dL 07/15/2020 13:28 [facility] RDW-CV 12.6 <14.7 % 07/15/2020 13:28 [facility] RDW-SD 39.9 <50.4 fl 07/15/2020 13:28 [facility] PLT 322 141 - 377 K/cmm 07/15/2020 13:28 [facility] MPV 10.3 9.5 - 12.7 fl 07/15/2020 13:28 [facility] % Neutrophils 65.2 % 07/15/2020 13:28 [facility] % Lymphocytes 23.4 % 07/15/2020 13:28 [facility] % Monocytes 8.2 % 07/15/2020 13:28 [facility] % Eosinophils 1.9 % 07/15/2020 13:28 [facility] % Basophils 1.0 % 07/15/2020 13:28 [facility] % Immature Grans 0.3 % 07/16/19 13:28 [facility] Absolute Neutrophils 5.82 2.20 - 8.85 K/cmm 07/15/2020 13:28 [facility] Absolute Lymphocytes 2.09 1.09 - 3.30 K/cmm 07/15/2020 13:28 [facility] Absolute Monocytes 0.73 0.10 - 0.80 K/cmm 07/15/2020 13:28 [facility] Absolute Eosinophils 0.17 0.03 - 0.61 K/cmm 07/15/2020 13:28 [facility] ABS Basophils 0.09 0.01 - 0.11 K/cmm 07/15/2020 13:28 [facility] Absolute Immature Grans 0.03 0.00 - 0.06 K/cmm 07/15/2020 13:28 [facility] Type of Differential: Auto 07/15/2020 13:28 [facility] Blood VENOUS BLOOD / Unknown Venipuncture / Unknown 07/15/2020 12:53 EST 07/15/2020 13:18 EST us Queenie Conde MD PACKAGES & DNA PROBE ORDERABLES Final Result [facility] [address] [place] [address] * (ABNORMAL) COMPREHENSIVE METABOLIC PANEL (CMP) (07/15/2020 12:53 EST) Sodium 140 136 - 145 mEq/L 07/15/2020 13:48 [facility] Potassium 4.2 3.5 - 5.0 mEq/L 07/15/2020 13:48 [facility] Chloride 102 96 - 110 mEq/L 07/15/2020 13:48 [facility] CO2 Total 24 22 - 32 mEq/L 07/15/2020 13:48 [facility] Glucose 102(H) 70 - 100 mg/dL 07/15/2020 13:48 [facility] BUN 9(L) 10 - 26 mg/dL 07/15/2020 13:48 [facility] Creatinine 0.48(L) 0.52 - 1.04 mg/dL 07/15/2020 13:48 [facility] eGFR 120 >60 mL/min/1.7 3m2 07/15/2020 13:48 [facility] Comment:eGFR calculated mata asif CKD-EPI equation for non- Americans. Multiply eGFR by 1.16 for patients. Total Protein 7.5 6.3 - 8.2 g/dL 07/15/2020 13:48 [facility] Albumin 4.5 3.4 - 4.9 g/dL 07/15/2020 13:48 [facility] Alkaline Phosphatase 124 38 - 126 U/L 07/15/2020 13:48 [facility] AST 77(H) 15 - 46 U/L 07/15/2020 13:48 [facility] ALT 82(H) <35 U/L 07/15/2020 13:48 [facility] Bilirubin, Total <0.5 <1.4 mg/dL 07/16/19 13:48 [facility] Calcium 9.4 8.5 - 10.5 mg/dL 07/15/2020 13:48 [facility] Calculated Calcium 9.0 8.5 - 10.5 mg/dL 07/15/2020 13:48 [facility] Blood VENOUS BLOOD / Unknown Venipuncture / Unknown 07/15/2020 12:53 EST 07/15/2020 13:21 EST us Queenie Conde MD CHEMISTRY & BLOOD GAS ORDERABLES Final Result [facility] [address] [place] [address] * LAB VENIPUNCTURE DRAW TEST (07/15/2020 12:53 EST) Hold Hold 07/15/2020 15:02 EST [facility] Blood VENOUS BLOOD / Unknown Venipuncture / Unknown 07/15/2020 12:53 EST 07/15/2020 13:51 EST us Queenie Conde MD LAB INFO SERVICE AND SUPPORT & P ERIC RESULT Final Result [facility] [address] [place] [address] documented in this encounter Visit Diagnoses Diagnosis Health examination in population survey- Primary Malignant neoplasm of left breast in female, estrogen receptor negative, unspecified site of breast (HCC-CMS) documented in this encounter Care Teams Stereo Equipment Installer Relationship Specialty Start Date End Date Batsheva Lira FNP [address] [phone] PCP - General 02/19/20 07/21/22 documented as of this encounter
--- OUTSIDE RECORDS SUMMARY | 2024-05-04 01:33 | XMS_ITS | Encounter Summary ---
Author Organization [facility] Address [address] [place] [address] Care Team Providers Care Care Transport Nurse Name Role Phone Batsheva Lira JOHN Primary Care Provider [phone] Encounter Details Date Type Department Care Team (Late st Contact Info) Description 07/15/2020 Orders Only [facility] Radiology - Main [place] [address] [place] [address] Rivera Man DO Social History Tobacco Use [...] [facility] Surgical Oncology - [address] [address] Maeve Morales, 111 [facility], Level [address] [place] [phone] documented as of this encounter Visit Diagnoses Not on filedocumented in this encounter Care Teams Care Transport Nurse Relationship Specialty Start Date End Date Batsheva Lira FNP [address] [phone] PCP - General 02/19/20 07/21/22 documented as of this encounter
--- OUTSIDE RECORDS SUMMARY | 2024-05-04 01:33 | XMS_ITS | Encounter Summary ---
Author Organization [facility] Address [address] [place] [address] Care Team Providers Care Loan Officer Name Role Phone Batsheva Lira JOHN Primary Care Provider [phone] Encounter Details Date Type Department Care Team (Late st Contact Info) Description 07/16/2020 Documentation Visit [facility] Cancer Center Hematology & Oncology - [address] [address] Lolly Antunez, RADHA Social History Tobacco Use [...] Description 02/28/2025 13:00 EDT Office Visit [facility] Surgical Oncology - [address] [address] Maeve Morales, 111 [facility], [address] [place] [phone] documented as of this encounter Visit Diagnoses Not on filedocumented in this encounter Care Teams Loan Officer Relationship Specialty Start Date End Date Batsheva Lira FNP [address] [phone] PCP - General 02/19/20 07/21/22 documented as of this encounter
--- OUTSIDE RECORDS SUMMARY | 2024-05-04 01:33 | XMS_ITS | Encounter Summary ---
Author Organization [facility] Address [address] [place] [address] Care Team Providers Care Freight Engineer Name Role Phone Batsheva Lira JOHN Primary Care Provider Reason for Visit * Reason Onset Date Comments Appointment Related 07/15/2020 Encounter Details Date Type Department Care Team (Late st Contact Info) Description 07/15/[address] [facility] Breast Imaging Mammography - Main [address] [phone] Carly Ramos Appointment Related Social History Tobacco [...] Visit [facility] Surgical Oncology - [address] [phone] Maeve Morales, DO [address] [place] [address], [address] [place] [address] documented as of this encounter Visit Diagnoses Not on filedocumented in this encounter Care Teams Freight Engineer Relationship Specialty Start Date End Date Batsheva Lira FNP [address] [phone] PCP - General 02/19/20 07/21/22 documented as of this encounter
--- OUTSIDE RECORDS SUMMARY | 2024-05-04 01:33 | XMS_ITS | Encounter Summary ---
Author Organization [facility] Address [address] [place] [address] Care Team Providers Care Bench Worker Helper Name Role Phone Batsheva Lira JOHN Primary Care Provider [phone] Reason for Referral * Radiology Services (Routine) - Closed Specialty Diagnoses / Procedures Referred By Contac t Referred To Contact Nuclear Medicine Diagnoses Malignant neoplasm of left breast in female, estrogen receptor negative, unspecified site of breast (HCC-CMS) Procedures NM BONE WHOLE BODY Vargas Marvin MD Phone: tel: fax: Referral ID Status Reason Start Date Expiration Date Visits Re quested Visits Authorized [id number] Closed 07/15/2020 1 1 Reason for Visit [...] Expiration Date Visits Re quested Visits Authorized [id number] Closed 07/15/2020 1 1 Encounter Details Date Type Department Care Team (Latest Contact Info) Description 07/18/2020 9:22 EST - 07/18/2020 9:23 EST Hospital Encounter [facility] Radiology Nuclear Medicine and PET - [address] [address] Malignant neoplasm of left breast in female, [...] Info) Description 02/28/2025 13:00 EDT Office Visit [facility] Surgical Oncology - [address] [phone] Maeve Morales, DO 111 [facility], [facility], [address] [place] [phone] documented as of this encounter Procedures Procedure Name Priority Date/Time Associated Diagnosis Comments NM BONE WHOLE BODY Routine 07/18/2020 13 :17 EST Malignant neoplasm of left breast in female, estrogen receptor negative, unspecified site of breast ([facility]) documented in this encounter Results [...] the findings. us Vargas Marvin MD IMG NM ORDERABLES Final Resu lt documented in [...] 07/18/2020 documented in this encounter Care Teams Bench Worker Helper Relationship Specialty Start Date End Date Batsheva Lira FNP [address] [phone] PCP - General 02/19/20 07/21/22 documented as of this encounter
--- OUTSIDE RECORDS SUMMARY | 2024-05-04 01:33 | XMS_ITS | Encounter Summary ---
Author Organization [facility] Address [address] [place] [address] Care Team Providers Care Tobacco Packer Name Role Phone Batsheva Lira JOHN Primary Care Provider [phone] Reason for Visit * Reason Comments Breast Cancer Encounter Details Date Type Department Care Team (Late st Contact Info) Description 07/15/2020 9:30 EST Initial consult [facility] Radiation Oncology - [address] [id number] Vargas Marvin MD [address] [place] [address], Level 2 [place] [address] Malignant neoplasm of upper-inner quadrant [...] documented in this encounter Progress Notes * Vargas Marvin [...] History of Present Illness: Baseline MMG at [facility] in 03/2018 showed possible asymmetry in L lateral breast. Diagnostic MMG and US there in 06/2018 showed no masses, scattered calcs. BIRADS2 06/19/20: CT neck and c-spine for a fall showed no SCV adenopathy or concern for intracranial disease 06/20/20: She saw Dr. Schulz, a knitting machine operator in [place], [place], who noted a fixed 4x4cm area at 10:00 in L breast. The patient denies ever feeling a mass or noticing skin changes or nipple discharge. 07/07/20: Diagnostic MMG and US at [facility] showed 2.1cm mass at 10:00 9cm FN [...] She reports current alcohol use. Social Narrative: [place], family mostly live in [place]. Lives with 9yo daugther. Has 20 and [...] stage, chemotherapy is often recommended. I discussed [facility] consensus recommendation for neoadjuvant RT, which may [...] in the above note. Vargas Marvin MD [employer] Architect of Radiation Oncology [facility] Office: [phone] Email: [email or web address] documented in this encounter Plan of Treatment Upcoming Encounters Date Type Department Care Team (Late st Contact Info) Description 02/28/2025 13:00 EDT Office Visit [facility] Surgical Oncology - [address] [address] Maeve Morales, DO 111 [facility], Level 2 [place] [phone] documented as of this encounter Visit Diagnoses Diagnosis Malignant neoplasm of upper-inner quadrant of left breast in female, estrogen receptor negative (HCC-CMS)- Primary documented in this encounter Care Teams Tobacco Packer Relationship Specialty Start Date End Date Batsheva Lira FNP [address] [address] PCP - General 02/19/20 07/21/22 documented as of this encounter
--- OUTSIDE RECORDS SUMMARY | 2024-05-04 01:33 | XMS_ITS | Encounter Summary ---
Author Organization [facility] Address [address] [place] [address] Care Team Providers Care Seasoning Mixer Name Role Phone Batsheva Lira JOHN Primary Care Provider [phone] Encounter Details Date Type Department Care Team (Late st Contact Info) Description 07/16/2020 Documentation Visit [facility] Hematology & Oncology - [address] [address] Lolly Antunez, RADHA Social History Tobacco Use [...] Refills Last Filled Start Date End Date ondansetron (ZOFRAN-ODT) 8 mg disintegrating tablet Take 1 Tab by mouth every 8 hours as needed for Nausea. 60 Tab 2 07/16/2020 documented in this encounter Progress Notes * Lolly Antunez RN - 07/16/2020 1251 EST Patient Education [...] Verbal VTE-PACC Score: Medium Pt referred to [facility] VTE-PACC? No Barriers to Education: None Who was taught? Patient documented in this encounter Plan of Treatment Upcoming Encounters Date Type Department Care Team (Late st Contact Info) Description 02/28/2025 13:00 EDT Office Visit [facility] Surgical Oncology - [address] [address] Maeve Morales, 111 [facility] [address] [place] [address] documented as of this encounter Visit Diagnoses Not on filedocumented in this encounter Care Teams Seasoning Mixer Relationship Specialty Start Date End Date Batsheva Lira FNP [address] [phone] PCP - General 02/19/20 07/21/22 documented as of this encounter
--- OUTSIDE RECORDS SUMMARY | 2024-05-04 01:33 | XMS_ITS | Encounter Summary ---
Author Organization [facility] Address [address] [place] [address] Care Team Providers Care Tempering Oven Operator Name Role Phone Batsheva Lira JOHN Primary Care Provider [phone] Reason for Referral * Radiology Services (Routine) - Closed Specialty Diagnoses / Procedures Referred By Contac t Referred To Contact Diagnoses Malignant neoplasm of left breast in female, estrogen receptor negative, unspecified site of breast ([facility]) Procedures CT ABDOMEN PELVIS W CONTRAST Vargas Marvin MD Phone: tel: fax: Referral ID Status Reason Start Date Expiration Date Visits Re quested Visits Authorized [id number] Closed 07/15/2020 1 1 * Radiology Services (Routine) - Closed Specialty Diagnoses / Procedures Referred By Contac t Referred To Contact Nuclear Medicine Diagnoses Malignant neoplasm of left breast in female, estrogen receptor negative, unspecified site of breast ([facility]) Procedures NM BONE WHOLE BODY Vargas Marvin MD Phone: tel: fax: Referral ID Status Reason Start Date Expiration Date Visits Re quested Visits Authorized [id number] Closed 07/15/2020 1 1 * Radiology Services (Routine) - Closed Specialty Diagnoses / Procedures Referred By Contac t Referred To Contact Diagnoses Malignant neoplasm of left breast in female, estrogen receptor negative, unspecified site of breast ([facility]) Procedures CT CHEST W CONTRAST Vargas Marvin MD Phone: tel: fax: Referral ID Status Reason Start Date Expiration Date Visits Re quested Visits Authorized [id number] Closed 07/15/2020 1 1 Encounter Details Date Type Department Care Team (Late st Contact Info) Description 07/15/2020 Orders Only [facility] [place] [address] Kenia Cline RN Malignant neoplasm of left breast in female, estrogen receptor negative, unspecified site of breast ([facility]) (Primary Dx) Social History Tobacco Use [...] [facility] Surgical Oncology - [facility] [address] [place], [place] [address] Maeve Morales, DO 111 [facility], [facility], Level 2 [place] [address] documented as of this encounter [...] the findings. us Vargas Marvin MD [facility] [place] ORDERABLES Final Resu lt * CT ABDOMEN PELVIS W CONTRAST (07/18/2020 [...] are present in the lower lumbar spine. [facility] W[employer] Oiler: No additional findings. Procedure Note Deni Mercado [...] are present in the lower lumbar spine. [facility] [facility]: No additional findings. IMPRESSION 1. No evidence [...] evidence of metastatic disease in the chest us Vargas Marvin MD IMG CT ORDERABLES Edited [...] (HCC-CMS) documented in this encounter Care Teams Tempering Oven Operator Relationship Specialty Start Date End Date Batsheva Lira FNP [address] [address] PCP - General 02/19/20 07/21/22 documented as of this encounter
--- OUTSIDE RECORDS SUMMARY | 2024-05-04 01:33 | XMS_ITS | Encounter Summary ---
Author Organization [facility] Address [address] [place] [address] Care Team Providers Care Rn Community Health Name Role Phone Batsheva Lira JOHN Primary Care Provider [phone] Reason for Visit * Reason Onset Date Comments Social Work 07/17/2020 financial Encounter Details Date Type Department Care Team (Late st Contact Info) Description 07/17/2020 Telephone [facility] Hematology & Oncology - [facility] [address] [place], [place] [phone] Veronique Dye Social Work (financial) Social History [...] had suggested that she use assistance from [facility] to purchase a wig as I know she's concerned about her household expenses. Pt would like to proceed with applying to any grants available to her at this time. PN asked pt to send in some bills and I can help her apply for [employer] and [employer]. Explained that [employer] requires pt's to be [...] Office Visit [facility] Surgical Oncology - [address] [phone] Maeve Morales, DO 111 [facility], [facility], [address] [place] [address] documented as of this encounter Visit Diagnoses Not on filedocumented in this encounter Care Teams Rn Community Health Relationship Specialty Start Date End Date Batsheva Lira FNP [address] [place] [phone] PCP - General 02/19/20 07/21/22 documented as of this encounter
--- OUTSIDE RECORDS SUMMARY | 2024-05-04 01:33 | XMS_ITS | Encounter Summary ---
Author Organization [facility] Address [address] [place] [address] Care Team Providers Care Milieu Technician Name Role Phone Batsheva Lira JOHN Primary Care Provider [phone] Reason for Referral * Consult (Routine) - Specialty Report Received Specialty Diagnoses / Procedures Referred By Jen gonzáles Referred To Contact Hematology and Oncology Diagnoses Malignant neoplasm of female breast, unspecified estrogen receptor status, unspecified laterality, unspecified site of breast ([facility]) Queenie Conde MD Phone: tel: fax: [facility] Hematology & Oncology [address] [address] Phone: tel: fax: Referral ID Status Reason Start Date Expiration Date Visits Requested Visits Authorized [id number] Specialty Report Received Specialty Services Required 07/16/2020 1 1 Question Answer Insurance / Financial Yes Comments Tiffany, can you touch base with her at C1D1. 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) Encounter Details Date Type Department Care Team (Late st Contact Info) Description 07/16/2020 Orders Only [facility] Hematology & Oncology [address] [address] Veronique Dye Malignant neoplasm of female breast, [...] Info) Description 02/28/2025 13:00 EDT Office Visit [facility] Surgical Oncology - [address] [phone] Maeve Morales, DO 111 [facility], [facility], Level [address] [place] [phone] Scheduled Referrals Name Type Priority Associated Diagnoses Orde r Schedule [facility] SOCIAL WORK SERVICES Outpatient Referral Routine Malignant neoplasm of female breast, unspecified estrogen receptor status, unspecified laterality, unspecified site of breast (HCC-CMS) Ordered: 07/16/2020 documented as of this encounter Visit Diagnoses Diagnosis Malignant neoplasm of female breast, unspecified estrogen receptor status, unspecified laterality, unspecified site of breast (HCC-CMS)- Primary documented in this encounter Care Teams Milieu Technician Relationship Specialty Start Date End Date Batsheva Lira FNP [address] [phone] PCP - General 02/19/20 07/21/22 documented as of this encounter
--- OUTSIDE RECORDS SUMMARY | 2024-05-04 01:33 | XMS_ITS | Encounter Summary ---
Author Organization [facility] Address [address] [place] [address] Care Team Providers Care Transfer Station Operator Name Role Phone Batsheva Lira JOHN Primary Care Provider [phone] Reason for Visit * Reason Onset Date Comments Follow-up 07/18/2020 Encounter Details Date Type Department Care Team (Late st Contact Info) Description 07/18/2020 Telephone [facility] Surgical Oncology - Main [place] [address] [place], [place] [phone] Kenia Cline, RADHA Follow-up Social History Tobacco [...] Description 02/28/2025 13:00 EDT Office Visit [facility] Surgical Oncology - [address] [address] Maeve Morales, DO 111 [facility], Level [address] [place] [phone] documented as of this encounter Visit Diagnoses Not on filedocumented in this encounter Care Teams Transfer Station Operator Relationship Specialty Start Date End Date Batsheva Lira FNP [address] [phone] PCP - General 02/19/20 07/21/22 documented as of this encounter
--- OUTSIDE RECORDS SUMMARY | 2024-05-04 01:33 | XMS_ITS | Encounter Summary ---
Author Organization [facility] Address [address] [place] [address] Care Team Providers Care Escrow Officer Name Role Phone Batsheva Lira JOHN Primary Care Provider [phone] Reason for Visit * Reason Onset Date Comments Social Work 07/16/2020 wig/SW referral Encounter Details Date Type Department Care Team (Late st Contact Info) Description 07/16/2020 Telephone [facility] Center Hematology & Oncology - Main [place] [address] [place], [place] [phone] Veronique Dye Social Work (wig/SW referral) Social [...] HAP assistance with a wig purchase from [employer]. PN provided steps for each option and [...] Description 02/28/2025 13:00 EDT Office Visit [facility] Surgical Oncology - [address] [phone] Maeve Morales, DO 111 [facility], Level [address] [place] [phone] documented as of this encounter Visit Diagnoses Not on filedocumented in this encounter Care Teams Escrow Officer Relationship Specialty Start Date End Date Batsheva Lira FNP [address] [phone] PCP - General 02/19/20 07/21/22 documented as of this encounter
--- OUTSIDE RECORDS SUMMARY | 2024-05-04 01:34 | XMS_ITS | Encounter Summary ---
Author Organization [facility] Address [address] [place] [address] Care Team Providers Care Telesales Manager Name Role Phone Batsheva Lira JOHN Primary Care Provider [phone] Reason for Referral * Radiology Services (Routine) - New Request Specialty Diagnoses / Procedures Referred By Jen gonzáles Referred To Contact Diagnoses Breast mass Procedures MA BREAST POST BIOPSY CLIP LEFT Bianca Lopes MD Phone: tel: fax: Referral ID Status Reason Start Date Expiration Date V isits Requested Visits Authorized [id number] New Request 07/08/2020 1 1 Reason for Visit * Radiology Services (Routine) - New Request Specialty Diagnoses / Procedures Referred By Jen gonzáles Referred To Contact Diagnoses Breast mass Procedures MA BREAST POST BIOPSY CLIP LEFT Bianca Lopes MD Phone: tel: fax: Referral ID Status Reason Start Date Expiration Date V isits Requested Visits Authorized [id number] New Request 07/08/2020 1 1 Encounter Details Date Type Department Care Team (Latest Contact Info) Description 07/09/2020 10:21 EST - 07/09/2020 23:59 EST Hospital Encounter [facility] Breast Imaging Mammography - Main [place] [address] [place], [place] [id number] Breast mass Discharge Disposition: Home or Self [...] Take 30 mg by mouth daily. 3 ethinyl estradiol-etonog estrel (NUVARING) 0.12-0.015 mg/[address] Each vaginally every 28 days. Wear continuously for 3 weeks; remove for 1 week; repeat with new ring, as directed. 1 MELOXICAM ORAL Take by mouth as needed. 1 methocarbamoL (ROBAXIN) 750 mg tablet Take 1 Tab by mouth 4 times daily. 20 Tab 06/19/2020 1 documented as of this encounter Discharge Disposition Disposition Code Departure Means Destination Home or Self Care documented in this encounter Plan of Treatment Upcoming Encounters Date Type Department Care Team (Late st Contact Info) Description 02/28/2025 13:00 EDT Office Visit [facility] Surgical Oncology - [address] [address] Maeve Morales, DO [address] [place] [address], [facility], Level [address] [place] [address] documented as of this encounter [...] The patient was told that our biopsy healthcare financial analyst will notify her of the results via phone in 3-5 business days. Bianca Lopes MD IMG MAMMOGRAPHY ORDERABLES Edited Result - Final documented in this encounter Visit Diagnoses Diagnosis Breast mass Lump or mass in breast documented in this encounter Care Teams Telesales Manager Relationship Specialty Start Date End Date Batsheva Lira FNP [address] [phone] PCP - General 02/19/20 07/21/22 documented as of this encounter
--- OUTSIDE RECORDS SUMMARY | 2024-05-04 01:34 | XMS_ITS | Encounter Summary ---
Author Organization [facility] Address [address] [place] [address] Care Team Providers Care Swatch Checker Name Role Phone Batsheva Lira JOHN Primary Care Provider [phone] Encounter Details Date Type Department Care Team [...] Info) Description 02/28/2025 13:00 EDT Office Visit [facility] Surgical Oncology - Main [place] [address] [place], [place] [phone] Maeve Morales, DO 111 [facility], Level 2 [place] [phone] documented as of this encounter Visit Diagnoses Not on filedocumented in this encounter Care Teams Swatch Checker Relationship Specialty Start Date End Date Batsheva Lira FNP [address] [phone] PCP - General 02/19/20 07/21/22 documented as of this encounter
--- OUTSIDE RECORDS SUMMARY | 2024-05-04 01:34 | XMS_ITS | Encounter Summary ---
Author Organization [facility] Address [address] [place] [address] Care Team Providers Care Web Site Admin Name Role Phone Batsheva Lira JOHN Primary Care Provider [phone] Encounter Details Date Type Department Care Team (Late st Contact Info) Description 07/11/2020 Documentation Visit [facility] Surgical Oncology - Main [place] [address] [place] [address] Olga Brown, RN [address] [place] [address] Malignant neoplasm of left breast in female, [...] Notes * Olga Brown, RN - 07/11/2020 2182 EST Telephone call to patient re. her new left breast cancer. Discussed new dx. and answered all questions. Intake information received and documented. Explained role of Nurse Navigator and given direct telephone number. Offered appts at [facility] on 07/15 with 's Andrew Li, patient accepted. Discussed need for FCP referral, she would like to meet with a genetic plaster die maker. Patient voiced understanding of all information given, no barriers. New patient intake form e- mailed to patient to complete and bring to appt. Dr Lopes notified regarding patient's appt in [facility]. OLGA BROWN RN documented in this encounter Plan of Treatment Upcoming Encounters Date Type Department Care Team (Late st Contact Info) Description 02/28/2025 13:00 EDT Office Visit [facility] Surgical Oncology - [address] [address] Maeve Morales, DO 111 [facility], [facility], Level 2 [place] [phone] documented as of this encounter Visit Diagnoses Diagnosis Malignant neoplasm of left breast in female, estrogen receptor negative, unspecified site of breast (HCC-CMS)- Primary documented in this encounter Care Teams Web Site Admin Relationship Specialty Start Date End Date Batsheva Lira FNP [address] [phone] PCP - General 02/19/20 07/21/22 documented as of this encounter
--- OUTSIDE RECORDS SUMMARY | 2024-05-04 01:34 | XMS_ITS | Encounter Summary ---
Author Organization [facility] Address [address] [place] [address] Care Team Providers Care Preparation Room Manager Name Role Phone Batsheva Lira JOHN Primary Care Provider [phone] Encounter Details Date Type Department Care Team [...] Verbally Threaten Not on file 02/19/2020 Comments Unknown Sex and Gender Information Value Date Recorded [...] Visit [facility] Surgical Oncology - [address] [phone] Maeve Morales, DO 111 [facility], Level 2 [place] [phone] documented as of this encounter Visit Diagnoses Not on filedocumented in this encounter Care Teams Preparation Room Manager Relationship Specialty Start Date End Date Batsheva Lira FNP [address] [phone] PCP - General 02/19/20 07/21/22 documented as of this encounter
--- OUTSIDE RECORDS SUMMARY | 2024-05-04 01:34 | XMS_ITS | Encounter Summary ---
Author Organization [facility] Address [address] [place] [address] Care Team Providers Care Scaler Name Role Phone Batsheva Lira JOHN Primary Care Provider [phone] Encounter Details Date Type Department Care Team (Latest Contact Info) Description 06/02/2020 Transcribe Orders [facility] [address] [place] [address] Mare Echeverria MD [address] [facility] Medical Office Building, [address] [place] [address] Pre-procedure lab exam (Primary Dx) [...] Visit [facility] Surgical Oncology - [address] [address] Maeve Morales, DO 111 [facility], Level [address] [place] [address] documented as of this encounter Visit Diagnoses Diagnosis Pre-procedure lab exam- Primary Pre-procedural laboratory examination documented in this encounter Care Teams Scaler Relationship Specialty Start Date End Date Batsheva Lira FNP [address] [phone] PCP - General 02/19/20 07/21/22 documented as of this encounter
--- OUTSIDE RECORDS SUMMARY | 2024-05-04 01:34 | XMS_ITS | Encounter Summary ---
Author Organization [facility] Address [address] [place] [address] Care Team Providers Care Engineering Mathematician Name Role Phone Batsheva Lira JOHN Primary Care Provider [phone] Reason for Visit * Reason Onset Date Comments Follow-up 07/10/2020 Encounter Details Date Type Department Care Team (Late st Contact Info) Description 07/10/2020 Telephone [facility] Breast Imaging Mammography - Main [address] [phone] Elle [place] Follow-up Social History Tobacco Use [...] [facility] - [address] [address] Maeve Morales, 111 [facility], [address] [place] [phone] documented as of this encounter Visit Diagnoses Not on filedocumented in this encounter Care Teams Engineering Mathematician Relationship Specialty Start Date End Date Batsheva Lira FNP [address] [phone] PCP - General 02/19/20 07/21/22 documented as of this encounter
--- OUTSIDE RECORDS SUMMARY | 2024-05-04 01:34 | XMS_ITS | Encounter Summary ---
Author Organization [facility] Address [address] [place] [address] Care Team Providers Care Handyman Name Role Phone Batsheva Lira JOHN Primary Care Provider [phone] Reason for Referral * Radiology Services (Routine) - New Request Specialty Diagnoses / Procedures Referred By Jen gonzáles Referred To Contact Diagnoses Breast lump Procedures MA BREAST DIAGNOSTIC POLLY BILATERAL Bianca Lopes MD Phone: tel: fax: Referral ID Status Reason Start Date Expiration Date V isits Requested Visits Authorized [id number] New Request 06/23/2020 1 1 Reason for Visit * Radiology Services (Routine) - New Request Specialty Diagnoses / Procedures Referred By Jen gonzáles Referred To Contact Diagnoses Breast lump Procedures MA BREAST DIAGNOSTIC POLLY BILATERAL Bianca Lopes MD Phone: tel: fax: Referral ID Status Reason Start Date Expiration Date V isits Requested Visits Authorized [id number] New Request 06/23/2020 1 1 Encounter Details Date Type Department Care Team (Latest Contact Info) Description 07/07/2020 13:35 EST - 07/07/2020 23:59 EST Hospital Encounter [facility] Breast Imaging Mammography - Main [place] [address] [place], [place] [address] Breast lump Discharge Disposition: Home or Self [...] Visit [facility] Surgical Oncology - [address] [address] Andrew Maeve Bao, DO 111 [facility], [facility], Level [address] [place] [phone] documented as of this encounter Procedures Procedure [...] with speech recognition software or keyboard data coordinator techniques. Minor irregularities or keyboarding misprints may [...] core biopsy with clip placement is recommended. us Bianca Lopes MD IMG MAMMOGRAPHY ORDERABLES Final Result documented in this encounter Visit Diagnoses Diagnosis Breast lump Lump or mass in breast documented in this encounter Care Teams Handyman Relationship Specialty Start Date End Date Batsheva Lira FNP [address] [phone] PCP - General 02/19/20 07/21/22 documented as of this encounter
--- OUTSIDE RECORDS SUMMARY | 2024-05-04 01:34 | XMS_ITS | Encounter Summary ---
Author Organization [facility] Address [address] [place] [address] Care Team Providers Care Cytology Teacher Name Role Phone Batsheva Lira JOHN Primary Care Provider Reason for Visit * Reason Onset Date Comments Appointment Related 07/11/2020 fcp Encounter Details Date Type Department Care Team (Late st Contact Info) Description 07/11/2020 Telephone [facility] Hematology & Oncology - [address] [id number] Fcp, Provider, Appointment Related (fcp) Social History [...] [facility] Surgical Oncology - [address] [address] Maeve Morales, 111 [facility], Level 2 [place] [phone] documented as of this encounter Visit Diagnoses Not on filedocumented in this encounter Care Teams Cytology Teacher Relationship Specialty Start Date End Date Batsheva Lira FNP [address] [phone] PCP - General 02/19/20 07/21/22 documented as of this encounter
--- OUTSIDE RECORDS SUMMARY | 2024-05-04 01:34 | XMS_ITS | Encounter Summary ---
Author Organization [facility] Address [address] [place] [address] Care Team Providers Care Offset Plate Preparation Supervisor Name Role Phone Batsheva Lira JOHN Primary Care Provider Encounter Details Date Type Department Care Team (Latest Contact Info) Description 06/16/2020 Transcribe Orders [facility] MOBILE [address] [place] [address] Mare Echeverria MD 792 [facility] Medical Office Building, [address] [place] [address] Female stress incontinence (Primary Dx) [...] Visit [facility] Surgical Oncology - [address] [address] Maeve Morales, DO 111 [facility], [facility], [address] [place] [address] documented as of this encounter Visit Diagnoses Diagnosis Female stress incontinence- Primary documented in this encounter Care Teams Offset Plate Preparation Supervisor Relationship Specialty Start Date End Date Batsheva Lira FNP [address] [address] PCP - General 02/19/20 07/21/22 documented as of this encounter
--- OUTSIDE RECORDS SUMMARY | 2024-05-04 01:34 | XMS_ITS | Encounter Summary ---
Author Organization [facility] Address [address] [place] [address] Care Team Providers Care Manager Distribution Center Name Role Phone Batsheva Lira JOHN Primary Care Provider [phone] Reason for Visit * Reason Comments Genetic Evaluation Telemedicine Video Visit * Consult (Routine) - Order Cancelled Specialty Diagnoses / Procedures Referred By Jen gonzáles Referred To Contact Hematology and Oncology Diagnoses Malignant neoplasm of left breast in female, estrogen receptor negative, unspecified site of breast ([facility]) Maeve Morales DO Phone: tel: fax: [facility] Hematology & Oncology [address] [address] Phone: tel: fax: Referral ID Status Reason Start Date Expiration Date Visits Requested Visits Authorized [id number] Order Cancelled Specialty Services Required 07/11/2020 1 1 Encounter Details Date Type Department Care Team (Late st Contact Info) Description 07/14/2020 12:00 EST Telemedicine [facility] Hematology & Oncology [address] [id number] Katia Goodman, MS [address] [place], [place] [address] Encounter for nonprocreative genetic counseling (Primary Dx); [...] medical or mental health care. Zoom ID: [id number] Password: [id number] Medical history Austin is a 44-year-old woman whose gas or water meter installer found a lump on her recent exam on June 20. She was referred for imaging and and a biopsy on July 09 confirmed that Austin has a triple negative breast cancer in her left breast. She will be meeting with surgical oncology, medical oncology, and radiation oncology on the day following our discussion at [facility]. Melissa medical history is also of note [...] IUD. Social history Austin was born in [facility]. She recently moved from [place] to [place] in July 2018. 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 She is and [...] All of her mother's family lives in [facility] and Austin has no information about the [...] his 90s. Her paternal relatives are of [place] descent. Assessment I discussed with Austin that [...] with regards to other cancer risks including HYDRAULIC RIVETER and GI. We also discussed that genetic [...] Description 02/28/2025 13:00 EDT Office Visit [facility] Surgical Oncology - [address] [address] Maeve Morales, 111 [facility], Level 2 [place] [phone] documented as of this encounter Visit Diagnoses Diagnosis Encounter for nonprocreative genetic counseling- Primary Genetic testing Other investigation and testing for procreative management Malignant neoplasm of left breast in female, estrogen receptor negative, unspecified site of breast (HCC-CMS) Family history of cancer Family history of unspecified malignant neoplasm documented in this encounter Care Teams Manager Distribution Center Relationship Specialty Start Date End Date Batsheva Lira FNP [address] [address] PCP - General 02/19/20 07/21/22 documented as of this encounter
--- OUTSIDE RECORDS SUMMARY | 2024-05-04 01:34 | XMS_ITS | Encounter Summary ---
Author Organization [facility] Address [address] [place] [address] Care Team Providers Care Client Support Associate Name Role Phone Batsheva Lira JOHN Primary Care Provider [phone] Encounter Details Date Type Department Care Team [...] [facility] Surgical Oncology - [address] [place] [address] [place], [place] [id number] Maeve Morales, DO 111 [facility], Level [address] [place] [phone] documented as of this encounter Visit Diagnoses Not on filedocumented in this encounter Care Teams Client Support Associate Relationship Specialty Start Date End Date Batsheva Lira FNP [address] [address] PCP - General 02/19/20 07/21/22 documented as of this encounter
--- OUTSIDE RECORDS SUMMARY | 2024-05-04 01:34 | XMS_ITS | Encounter Summary ---
Author Organization [facility] Address [address] [place] [address] Care Team Providers Care Staff Radiographer Name Role Phone Batsheva Lira JOHN Primary Care Provider [phone] Reason for Visit * Reason Onset Date Comments COVID-19 06/11/2020 Encounter Details Date Type Department Care Team (Late st Contact Info) Description 06/11/2020 Telephone [facility] [address] [place] [address] Mare Echeverria MD 792 [facility] Medical Office Building, [address] [place] [address] COVID-19 Social History Tobacco Use [...] to say procedure was moved to 07/09. Printer Slotter Helper rescheduled covid testing for 06/02. documented in this encounter Plan of Treatment Upcoming Encounters Date Type Department Care Team (Late st Contact Info) Description 02/28/2025 13:00 EDT Office Visit [facility] Surgical Oncology - [address] [address] Maeve Morales, 111 [facility], [facility], Level 2 [place] [address] documented as of this encounter Visit Diagnoses Not on filedocumented in this encounter Care Teams Staff Radiographer Relationship Specialty Start Date End Date Batsheva Lira FNP [address] [address] PCP - General 02/19/20 07/21/22 documented as of this encounter
--- OUTSIDE RECORDS SUMMARY | 2024-05-04 01:34 | XMS_ITS | Encounter Summary ---
Author Organization [facility] Address [address] [place] [address] Care Team Providers Care Compressor Station Engineer Name Role Phone Batsheva Lira JOHN Primary Care Provider [phone] Reason for Visit * Reason Comments Fall Pt to ED after falli ng while getting into car, fell backwards, hit back of head on ground. +Neck pain, jaw pain. C-collar placed. No LOC. Encounter Details Date Type Department Care Team (Late st Contact Info) Description 06/19/2020 14:57 EST - 06/19/2020 17:03 EST Emergency [facility] Emergency Department - [facility] [address] [place] [address] Isai Adames, PA-C 111 [facility], [facility], Level 1 [place] [address] Closed head injury, initial encounter [...] mouth 4 times daily. 20 Tab 06/19/2020 documented as of this encounter Ordered Prescriptions Prescription Sig Dispense Quantity Refills Last Filled Start Date End Date methocarbamoL (ROBAXIN) 750 mg tablet Take 1 Tab by mouth 4 times daily. 20 Tab 06/19/2020 08/08/2020 documented in this encounter Discharge Disposition Disposition Code Departure Means Destination Home or Self [facility] documented in this encounter ED Notes * [...] departure from the Emergency Department: Good PCP: Batsheva Lira, JOHN Alex was available for supervision. 06/19/2020 15:43 No flowsheet data found. * Laurie Polanco, RADHA - 06/19/2020 4465 EST SOCORRO Adames at bedside to assess. documented in this encounter Plan of Treatment Upcoming Encounters Date Type Department Care Team (Late st Contact Info) Description 02/28/2025 13:00 EDT Office Visit [facility] Surgical Oncology - [address] [address] Maeve Morales, 111 [facility], Level [address] [place] [address] documented as of this encounter [...] above interpretation andagree with the findings. us Isai Adames PA-C IMG CT ORDERABLES Final Resul t * CT HEAD WO CONTRAST (06/19/2020 16:17 [...] findings. Isai Adames PA-C IMG CT ORDERABLES Final Resul t * POCT CSN BARCODE URINE PREG TEST (06/19/2020 15:55 EST) Hold Hold 06/19/2020 18:01 [facility] Urine URINE SPECIMEN COLLECTION, CLEAN CATCH / Unknown Urine Collect / Unknown 06/19/2020 15:55 EST 06/19/2020 15:55 EST Isai Adames PA-C LAB INFO SERVICE AND SUPPORT & PHONE RESULT Final Result [facility] [address] [place] [address] * POCT TEST, CLINITEK (06/19/2020 15:50 EST) UPT Result Negative Negative 06/19/2020 16:01 [facility] ux developer designer ID [id number] 06/19/2020 16:01 [facility] HN LAB COMMENT (CLINITEK, UPT) Test performed at Emergency Department 06/19/2020 16:01 [facility] Comment:False negative resul ts may occur in women who are beyond 5-8 weeks gestation. Diagnosis of should be based on a correlation of test results with typical clinical signs and symptoms. Urine URINE SPECIMEN COLLECTION, CLEAN CATCH / Unknown 06/19/2020 15:50 EST 06/19/2020 16:01 EST us Isai Adames PA-C POINT OF CARE TEST ORDERABLES Final Result [facility] [address] [place] [address] documented in this encounter Visit Diagnoses Diagnosis [...] may reflect changes made after this encounter. ethinyl estradiol-etonog estrel (NUVARING) 0.12-0.015 mg/[address] Each vaginally every 28 days. Wear continuously for 3 weeks; remove for 1 week; repeat with new ring, as directed. 1 MELOXICAM ORAL Take by mouth as needed. 1 escitalopram oxalate (LEXAPRO) 10 mg tablet Take 30 mg by mouth daily. 3 added in this encounter Active and Recently Administered Medications Times are shown in EST. Scheduled Medication Order 06/17/2020 06/18/2020 06/19/2020 acetaminophen (TYLENOL) tablet 1,000 mg (COMPLETED) 1,000 mg, oral, NOW X1, 1 dose, On Klaudia 06/19/20 at 1530, STAT 1532 (Given - Provid er: Laurie Polanco RN) documented in this encounter Care Teams Compressor Station Engineer Relationship Specialty Start Date End Date Batsheva Lira FNP [address] [address] PCP - General 02/19/20 07/21/22 documented as of this encounter
--- OUTSIDE RECORDS SUMMARY | 2024-05-04 01:34 | XMS_ITS | Encounter Summary ---
Author Organization [facility] Address [address] [place] [address] Care Team Providers Care Refrigeration Installer Name Role Phone Batsheva Lira JOHN Primary Care Provider [phone] Reason for Visit * Reason Onset Date Comments COVID-19 06/20/2020 Encounter Details Date Type Department Care Team (Late st Contact Info) Description 06/20/2020 Telephone [facility] [employer] MOBILE [address] [place] [address] Mare Echeverria MD 792 [facility], Medical Office Building, [address] [place] [address] COVID-19 Social History Tobacco Use [...] Visit [facility] Surgical Oncology - [address] [phone] Maeve Morales, 111 [facility], Level 2 [place] [address] documented as of this encounter Visit Diagnoses Not on filedocumented in this encounter Care Teams Refrigeration Installer Relationship Specialty Start Date End Date Batsheva Lira FNP [address] [phone] PCP - General 02/19/20 07/21/22 documented as of this encounter
--- OUTSIDE RECORDS SUMMARY | 2024-05-04 01:34 | XMS_ITS ---
Author Organization [facility] Address [address] [place] [address] Care Team Providers Care Operating Room Scheduler Name Role Phone Pam Germain MD Unavailable [phone] Inez Corado DO Primary Care Provid er Oncology Status:Discharged (Closed) Start date:02/06/2021 Enrollment date:02/06/2021 End date:08/10/2021 Overview 08/10: check chart after 08/07 appt to see next step since she has completed 8 cycles Continued Care and Services Coordination
--- OUTSIDE RECORDS SUMMARY | 2024-05-04 01:34 | XMS_ITS | Encounter Summary ---
Author Organization [facility] Address [address] [place] [address] Care Team Providers Care Film Laboratory Technician Name Role Phone Batsheva Lira JOHN Primary Care Provider [phone] Reason for Visit * Radiology Services (Routine) - Closed Specialty Diagnoses / Procedures Referred By Jen gonzáles Referred To Contact Diagnoses Breast lump Procedures US BREAST COMPLETE LEFT US BREAST LIMITED LEFT Bianca Lopes MD Phone: tel: fax: Referral ID Status Reason Start Date Expiration Date Visits Re quested Visits Authorized [id number] Closed 06/23/2020 1 1 Encounter Details Date Type Department Care Team (Latest Contact Info) Description 07/07/2020 13:35 EST - 07/07/2020 23:59 EST Hospital Encounter [facility] Breast Imaging Ultrasound - [facility] [address] [place], [place] [address] Breast lump Discharge Disposition: Home or Self [...] 02/28/2025 13:00 EDT Office Visit [facility] Surgical Oncology - [address] [phone] Maeve Morales, [address] [place] [address], Level [address] [place] [address] documented as of this encounter [...] prepared with speech recognition software or keyboard oracle database developer techniques. Minor irregularities or keyboarding misprints may [...] with clip placement is recommended. us Bianca I Areson MD IMG US ORDERABLES Final Re sult documented in this encounter Visit Diagnoses Diagnosis Breast lump Lump or mass in breast documented in this encounter Care Teams Film Laboratory Technician Relationship Specialty Start Date End Date Batsheva Lira FNP [address] [address] PCP - General 02/19/20 07/21/22 documented as of this encounter
--- OUTSIDE RECORDS SUMMARY | 2024-05-04 01:34 | XMS_ITS | Encounter Summary ---
Author Organization [facility] Address [address] [place] [address] Care Team Providers Care Customer Support Representative Name Role Phone Batsheva Lira JOHN Primary Care Provider [phone] Reason for Referral * Radiology Services (Routine) - Closed Specialty Diagnoses / Procedures Referred By Jen gonzáles Referred To Contact Diagnoses Breast mass Procedures US BREAST BIOPSY LEFT Bianca Lopes MD Phone: tel: fax: Referral ID Status Reason Start Date Expiration Date Visits Re quested Visits Authorized [id number] Closed 07/08/2020 1 1 Reason for Visit * Radiology Services (Routine) - Closed Specialty Diagnoses / Procedures Referred By Jen gonzáles Referred To Contact Diagnoses Breast mass Procedures US BREAST BIOPSY LEFT Bianca Lopes MD Phone: tel: fax: Referral ID Status Reason Start Date Expiration Date Visits Re quested Visits Authorized [id number] Closed 07/08/2020 1 1 Encounter Details Date Type Department Care Team (Latest Contact Info) Description 07/09/2020 10:19 EST - 07/09/2020 10:20 EST Hospital Encounter [facility] Breast Imaging Ultrasound - Main [place] [address] [place], [place] [id number] Breast mass; Breast lump on left side [...] the formal referral and spoke to Samantha. spangler 07-10-20 documented in this encounter Plan of Treatment Upcoming Encounters Date Type Department Care Team (Late st Contact Info) Description 02/28/2025 13:00 EDT Office Visit [facility] Surgical Oncology - [address] [phone] Maeve Morales, DO 111 [facility], [facility], Level [address] [place] [address] documented as of this encounter Procedures Procedure [...] The patient was told that our biopsy personal care assistant will notify her of the results via phone in 3-5 business days. us Bianca Lopes MD [facility] US ORDERABLES Edited R esult - Final * SURGICAL PATHOLOGY (07/09/2020 11:38 EST) Addendum Comment ESTROGEN AND PROGESTERONE RECEPTOR RESULTS Tissue submitted: Paraffin embedded tissue block labelled [id number] (A1) from [facility] Immunohistochemical assays for estrogen receptors (SP1, [place]) and progesterone receptors (16, [place]ica) have been [...] Recommendations for IHC testing of ER and IN. J Clin Oncol 2010;28:6062-8732. NOTE: One or more of the reagents [...] performance characteristics have been determined by [facility] and/or by the referring laboratory. The [...] Tissue submitted: Paraffin embedded tissue block labelled [id number] (A1) from [facility] Fixative: Formalin This immunohistochemical assay is intended [...] performed under appropriate conditions according to the nailer operator's instructions with appropriate assay and tissue controls using an Anti-Her2 (4B5) Rabbit Monoclonal Antibody ([place]). Her2 Scoring Guidelines (invasive tumor component only) [...] performed is interpreted as: NEGATIVE 07/11/2020 11:33 [facility] Addendum electronically signed by Marquise Green MD on 07/11/2020 at 1133 Final Diagnosis A. BREAST, LEFT, 10 O'CLOCK, 9 CM FROM NIPPLE, ULTRASOUND-GUIDED NEEDLE CORE BIOPSY: - Adenocarcinoma, invasive, ductal type, nuclear grade 3. See comment. 07/11/2020 11:33 [facility] Diagnosis Comment The [...] be issued in an Addendum. 07/11/2020 11:33 [facility] Attestation By the signature below, the attending physician certifies that they have 1) personally conducted a gross and/or microscopic examination of the described specimen(s), and/or personally interpreted the results of laboratory testing of the described specimen(s), and 2) personally rendered or confirmed the above diagnosis. 07/11/2020 11:33 [facility] at 1412 Clinical History Left Breast irregular palpable mass 10:00 9cmfn gary [id number] 07/11/2020 11:33 [facility] Gross Description A. [...] 07/10/2020 SOCORRO BOWENS(ASCP) 07/09/2020 14:12 07/11/2020 11:33 [facility] Performing Lab [facility] 07/11/2020 11:33 [facility] Scanned Images 07/11/2020 11:33 [facility] Tissue ENTIRE LEFT BREAST / Unknown 07/09/2020 11:38 EST 07/09/2020 12:51 EST Comment:Left Breast irregula r palpable mass 10:00 9cmfn gary [id number] out of body at 11:15am us Bianca Lopes MD PATHOLOGY ORDERABLES Edite d Result - Final [facility] [address] [place] [address] documented in this encounter Visit Diagnoses Diagnosis [...] mL documented in this encounter Care Teams Customer Support Representative Relationship Specialty Start Date End Date Batsheva Lira FNP [address] [phone] PCP - General 02/19/20 07/21/22 documented as of this encounter
[2024-05-04 07:52] LABS: HCT 46.3 % (36.0-46.0); HGB 15.4 g/dL (11.2-15.7); MCH 28.9 pg (27.0-33.0); MCHC 33.3 % (32.0-36.0); MCV 87 fL (80-95); Platelet Count 265 10^3/uL (130-400); RBC 5.32 10^6/uL (3.93-5.22); RDW 12.3 % (11.7-14.6); RDW-SD 39.2 fL; WBC 7.96 10^3/uL (4.4-10.8)
[2024-05-04 08:06] LABS: Hemoglobin A1C 5.9 % (<5.7)
[2024-05-04 09:27] LABS: ALT 26 U/L (14-59); AST 18 U/L (15-37); Albumin 4.1 g/dL (3.4-5.0); Alkaline Phosphatase 162 U/L (46-116); Anion Gap 7.7 mmol/L (3-11); BUN 12 mg/dL (7-18); Bilirubin, Total 0.53 mg/dL (0.2-1.0); CO2 30.3 mmol/L (21.0-32.0); CREATININE 0.9 mg/dL (0.55-1.02); Calcium 9.2 mg/dL (8.5-10.1); Chloride 105 mmol/L (98-107); Estimated GFR 78.86 (mL/min/1.73m2); Glucose 105 mg/dL (74-106); Sodium 143 mmol/L (136-145); TSH (W/Ref FT4) 1.16 uIU/mL (0.36-3.74); Total Protein 7.9 g/dL (6.4-8.2); Vitamin B12 372 pg/mL (193-986); Vitamin D 25 Total 53.3 ng/mL (30-100)
[2024-05-04 09:29] LABS: Folate 16.8 ng/mL (8.6-20.0)
[2024-05-14 16:55] LABS: Apolipoprotein B, Serum 99 mg/dL (48-124); Beta VLDL Cholesterol Not Detected mg/dL (<15); Beta VLDL Triglycerides Not Detected mg/dL (<15); Cholesterol, Total, CDC 216 mg/dL; Chylomicron Cholesterol Not Detected; Chylomicron Triglycerides Not Detected; HDL Cholesterol, CDC 54 mg/dL (>=50); LDL Cholesterol 128 mg/dL; LDL Triglycerides 35 mg/dL (<=50); Lp(a) Cholesterol <5 mg/dL (<5); LpX Not detected; Triglycerides, CDC 113 mg/dL; VLDL Cholesterol 34 mg/dL (<30); VLDL Triglycerides 58 mg/dL (<120)
== END 2024-05-04 01:10 | disposition home or self-care (01) ==
PROVIDERS: PCP Student in an Organized Health Care Education/Training Program; Visit Provider Student in an Organized Health Care Education/Training Program
DX: R73.03 Prediabetes (principal); Z91.89 Other specified personal risk factors, not elsewhere classified; K76.0 Fatty (change of) liver, not elsewhere classified; N95.1 Menopausal and female climacteric states; G47.8 Other sleep disorders; Z90.10 Acquired absence of unspecified breast and nipple; Z76.89 Persons encountering health services in other specified circumstances; N20.0 Calculus of kidney; T45.1X5A Adverse effect of antineoplastic and immunosuppressive drugs, initial encounter; K90.9 Intestinal malabsorption, unspecified
CPT/HCPCS: 36415; 80053; 80061; 82306; 85027; 82172; 82607; 82664; 82746; 83036; 84443

== ENCOUNTER 2024-05-23 12:14 | Outpatient (REF) | payer BC, SELFPAY | END 2024-05-23 12:15 | disposition home or self-care (01) | LOC: LBN 12:14 | PROVIDERS: PCP Nurse Practitioner; Visit Provider Nurse Practitioner | DX: R31.9 Hematuria, unspecified (principal); R82.89 Other abnormal findings on cytological and histological examination of urine | CPT/HCPCS: 87086 ==

== ENCOUNTER 2025-03-18 13:17 | Outpatient (REF) | payer BC, SELFPAY | END 2025-03-18 13:18 | disposition home or self-care (01) | LOC: LBN 13:17 | PROVIDERS: Visit Provider Family Medicine | DX: R30.0 Dysuria (principal); R31.9 Hematuria, unspecified | CPT/HCPCS: 87086 ==